=== PATIENT | male | born 1960 | race Hispanic/Latino ===

== ENCOUNTER 2017-02-15 11:30 | Inpatient (IN) | payer MEDICARE, OTHER ==
[2017-02-15 11:31] VITALS: BMI 58.6
[2017-02-15] MEDS ORDERED: Piperacill/Tazo 3.375gm in Dex 50 ML IVPB STA (12:44)
[2017-02-15] MEDS ORDERED: Vancomycin 1 gm/NS 200 ml 200 ML IVPB STA (12:44)
--- NOTE | 2017-02-15 12:48 | C.PDOC ---
History Of Present Illness 56 year old patient, with a past medical history of arthritis, back problems, CAD, asthma, hypertension, hypercholesterolemia, hyperthyroidism, hypothyroidism , peripheral edema, pneumonia, depression, CHF, COPD, depression, diabetes, DVT , fibromyalgia, and PE, presents to the emergency department complaining of pain to bilateral lower extremities and to the buttocks at the crease of the legs. Patient has venous stasis changes to lower extremities and chronic cellulitis. Patient has a recent decubiti to the buttock with cracking skin, oozing, and foul smelling. Patient had a Tmax of 101 yesterday. Patient notes purulent discharge at home and called his PMD, Dr. Albright, who suggested he visit the ER for further evaluation. Patient is requesting Percocet and Oxycodone for the pain. Patient denies chest pain, shortness of breath, vomiting , weakness, or numbness. Time Seen by Provider: 02/15/17 12:11 Chief Complaint (Nursing): Abnormal Skin Integrity History Per: Patient History/Exam Limitations: no limitations Onset/Duration Of Symptoms: Other Current Symptoms Are (Timing): Still Present Quality Of Symptoms: Painful, Draining, Other Severity: Mild Pain Scale Rating Of: 3 Recent travel outside of the [place]: No Past Medical History Reviewed: Historical Data, Nursing Documentation, Vital Signs Vital Signs: Last Vital Signs Temp 97.4 F L 02/15/17 11:42 Pulse 80 02/15/17 11:42 Resp 18 02/15/17 11:42 BP 177/96 H 02/15/17 11:42 Pulse Ox 94 L 02/15/17 12:48 - Medical History PMH: Arthritis, Asthma, Back Problems, CAD, CHF, COPD, Depression, Diabetes, Deep Vein Thrombosis, Fibromyalgia, Fractures, HTN, Hypercholesterolemia, Hyperthyroidism, Hypothyroidism, Peripheral Edema (+4 edema), Pneumonia, Pulmonary Embolism, Sleep Apnea, Chronic Pain Surgical History: - [facility] Procedures ASSISTANCE WITH RESPIRATORY VENTILATION, >96 HRS, CPAP (09/04/16) CENTRAL VENOUS CATHETER PLACEMENT WITH GUIDANCE (07/08/15) CLOSED ENDOSCOPIC BIOPSY OF LARGE INTESTINE (03/22/14) CONTIN POS AIRWAY PRESSURE [CPAP] (02/21/07) DERMAL REGENERATIVE GRAFT (06/15/15) DX ULTRASOUND-HEART (05/14/06) ENDOSC POLYPECTOMY OF LG INTEST (03/22/14) ENDOSCOPIC BRONCHIAL BX (09/22/04) ESOPHAGOGASTRODUODENOSCOPY [EGD] W/CLOSED BIOPSY (03/22/14) EXCIS DEBRIDE OF WOUND, INFECT, OR BURN (06/15/15) HETEROGRAFT TO SKIN (10/29/14) INJECT ANTIBIOTIC (05/29/06) INJECT ANTICOAGULANT (11/17/04) INJECT/INFUSE NEC (03/22/14) INSERTION OF INFUSION DEV INTO SUP VENA CAVA, PERC APPROACH (09/04/16) INSPECTION OF BLADDER, ENDO (06/22/16) INTRODUCE OF OTH THERAP SUBST INTO RESP TRACT, VIA OPENING (04/06/16) NEBULIZER THERAPY (09/18/14) NON-INVASIVE MECHANICAL VENTILATION (08/13/12) NONEXCIS DEBRID OF WOUND, INFECT, OR BURN (10/09/14) OCCUPATIONAL THERAPY (03/17/14) PERFORMANCE OF URINARY FILTRATION, MULTIPLE (09/04/16) PHYSICAL THERAPY NEC (03/17/14) TRANSFUSE NONAUT FROZEN PLASMA IN PERIPH VEIN, PERC (09/04/16) VENOUS CATHETERIZATION NEC (04/25/15) Family History: States: Unknown Family Hx - Social History Hx Tobacco Use: No Hx Alcohol Use: No Hx Substance Use: No - Immunization History Hx Tetanus Toxoid Vaccination: No Hx Influenza Vaccination: Yes Hx Pneumococcal Vaccination: No Review Of Systems Except As Marked, All Systems Reviewed And Found Negative. Constitutional: Positive for: Fever Cardiovascular: Negative for: Chest Pain Respiratory: Negative for: Shortness of Breath Gastrointestinal: Negative for: Vomiting Skin: Positive for: Other (decubiti to buttock) Neurological: Negative for: Weakness, Numbness Physical Exam - Physical Exam Appears: Non-toxic, No Acute Distress Skin: Warm, Dry, Other (legs knee down indurated, oozing, linear changes; oozing at creases of buttock and legs) Head: Atraumatic, Normacephalic Eye(s): bilateral: Normal Inspection, PERRL, EOMI Ear(s): Bilateral: Normal Nose: Normal Oral Mucosa: Moist Throat: Normal Neck: Normal ROM, Supple Chest: Symmetrical Cardiovascular: Rhythm Regular Respiratory: Normal Breath Sounds, No Rales, No Rhonchi, No Wheezing Gastrointestinal/Abdominal: Soft, No Tenderness, Other (obese) Back: Normal Inspection Extremity: Normal ROM Neurological/Psych: Oriented x3, Normal Speech, Normal Cognition Gait: Steady ED Course And Treatment - Laboratory Results Result Diagrams: 02/15/17 14:24 02/15/17 12:44 O2 Sat by Pulse Oximetry: 94 (RA) Progress Note: Plan: VBG, EKG, Chest XR, Percocet, Zosyn, Vancomycin, Oxycodone. --Reassess and disposition Disposition Discussed With .: Estrada Albright Doctor Will See Patient In The: Hospital Counseled Patient/Family Regarding: Studies Performed - Disposition Disposition: HOSPITALIZED Disposition Time: 12:46 Condition: GUARDED - Clinical Impression Clinical Impression: Cellulitis, Morbid obesity with BMI of 60.0-69.9, adult, Stasis ulcer of right lower extremity, Leg ulcer, PVD (peripheral vascular disease), Decubitus ulcer - Scribe Statement The provider has reviewed the documentation as recorded by the Scribe Veronica Murdock Provider Attestation: All medical record entries made by the Scribe were at my direction and personally dictated by me. I have reviewed the chart and agree that the record accurately reflects my personal performance of the history, physical exam, medical decision making, and the department course for this patient. I have also personally directed, reviewed, and agree with the discharge instructions and disposition. Decision To Admit - Pt Status Changed To: Hospital Disposition Of: Inpatient - Admit Certification Admit to Inpatient:: After my assessment, the patient will require hospitalization for at least two midnights. This is because of the severity of symptoms shown, intensity of services needed, and/or the medical risk in this patient being treated as an outpatient. - InPatient: Physician Admission Certification: I certify that this patient requires 2 or more midnights of care for the following reason:: infected decubity - . Bed Request Type: Regular Patient Diagnosis: Cellulitis, Morbid obesity with BMI of 60.0-69.9, adult, Stasis ulcer of right lower extremity, Leg ulcer, PVD (peripheral vascular disease), Decubitus ulcer
[2017-02-15] MEDS ORDERED: oxyCODONE 20 mg ER Tab (oxyCONTIN) PO STA (12:49)
[2017-02-15] MEDS ORDERED: Oxycodone/Acetaminophen 5/325 mg Tab PO STA (12:49)
[2017-02-15] MEDS ORDERED: oxyCODONE 20 mg ER Tab (oxyCONTIN) PO ONE (13:15)
[2017-02-15] MEDS ORDERED: Oxycodone/Acetaminophen 5/325 mg Tab ONE ×2 (13:16→13:33)
--- NOTE | 2017-02-15 13:33 | RAD ---
HISTORY: Sepsis Patient COMPARISON: No prior. FINDINGS: LUNGS: Study is limited due to patient rotation and exclusion of both portions of both lung bases on more so on the left. Hazy opacity left lung could be secondary to patient rotation. Possibility of a effusion cannot be excluded. Suspect mild bibasilar atelectasis. Low lung bases more so on the left side PLEURA: No significant pleural effusion identified, no pneumothorax apparent. CARDIOVASCULAR: Questionable cardiomegaly. OSSEOUS STRUCTURES: No significant abnormalities. VISUALIZED UPPER ABDOMEN: Normal. OTHER FINDINGS: None. IMPRESSION: limited due to patient rotation and exclusion of both portions of both lung bases on more so on the left. Hazy opacity left lung could be secondary to patient rotation. Possibility of a effusion cannot be excluded. Suspect mild bibasilar atelectasis. Low lung bases more so on the left side
[2017-02-15] MEDS ORDERED: Piperacillin/Tazobact 3.375 gm 100 ML IVPB ONE ×2 (13:49→21:25)
[2017-02-15 14:19] LABS: VENOUS BLOOD GAS BASE EXCESS 7.5 mmol/L (0.0-2.0); VENOUS BLOOD GAS PCO2 47 mmHg (40-60); VENOUS BLOOD PH 7.45 (7.32-7.43)
[2017-02-15 14:19] LABS: BASO # 0.1 K/uL (0.0-0.2); BASO % 0.9 % (0.0-2.0); EOS # 0.2 K/uL (0.0-0.7); EOS % 2.3 % (0.0-4.0); HEMATOCRIT 34.4 % (35.0-51.0); LYMPH # 1.1 K/uL (1.0-4.3); LYMPH % 12.4 % (20.0-40.0); MEAN CORPUSCULAR HEMOGLOBIN 29.4 pg (27.0-31.0); MEAN CORPUSCULAR HGB CONC 34.2 g/dL (33.0-37.0); MEAN PLATELET VOLUME 9.7 fL (7.2-11.7); MONO # 0.6 K/uL (0.0-0.8); MONO % 7.3 % (0.0-10.0); RED CELL DISTRIBUTION WIDTH 13.4 % (11.5-14.5); WHITE BLOOD COUNT 8.7 K/uL (4.8-10.8)
[2017-02-15 14:26] LABS: CHLORIDE 95 mmol/L (98-107); SODIUM 136 mmol/L (132-148)
[2017-02-15 14:28] LABS: CARBON DIOXIDE 31 mmol/L (22-30); GFR AFRICAN-AMERICAN > 60
[2017-02-15 14:29] LABS: ALB/GLOB RATIO 0.8 (1.0-2.1); ALKALINE PHOSPHATASE 135 U/L (38-126); ALT/SGPT 25 U/L (21-72); AST/SGOT 24 U/L (17-59); BLOOD UREA NITROGEN 14 mg/dL (9-20); CALCIUM 9.1 mg/dl (8.6-10.4); GLUCOSE,RANDOM 113 mg/dL (75-110); POTASSIUM 4.7 mmol/L (3.6-5.2); TOTAL PROTEIN 8.3 g/dL (6.3-8.3)
[2017-02-15] MEDS ORDERED: oxyCODONE 40 mg ER Tab (oxyCONTIN) PO SCH (15:00)
[2017-02-15] MEDS: Vancomycin 1 gm/NS 200 ml 200 ML IVPB SCH (15:32)
--- NOTE | 2017-02-15 16:16 | CP.PCM.CON ---
History of Present Illness - History of Present Illness History of Present Illness: Chief Complaint - admitted via ER with infected stasis ulcer/ decubitus ulcer wound care and antibiotics ordered multiple co-morbidities prognosis guarded - Medical History PMH: Arthritis, Asthma, Back Problems, CAD, CHF, COPD, Depression, Diabetes, Deep Vein Thrombosis, Fibromyalgia, Fractures, HTN, Hypercholesterolemia, Hyperthyroidism, Hypothyroidism, Peripheral Edema (+4 edema), Pneumonia, Pulmonary Embolism, Sleep Apnea, Chronic Pain Denies: Chronic Kidney Disease Surgical History: - [facility] Procedures ASSISTANCE WITH RESPIRATORY VENTILATION, >96 HRS, CPAP (09/04/16) CENTRAL VENOUS CATHETER PLACEMENT WITH GUIDANCE (07/08/15) CLOSED ENDOSCOPIC BIOPSY OF LARGE INTESTINE (03/22/14) CONTIN POS AIRWAY PRESSURE [CPAP] (02/21/07) DERMAL REGENERATIVE GRAFT (06/15/15) DX ULTRASOUND-HEART (05/14/06) ENDOSC POLYPECTOMY OF LG INTEST (03/22/14) ENDOSCOPIC BRONCHIAL BX (09/22/04) ESOPHAGOGASTRODUODENOSCOPY [EGD] W/CLOSED BIOPSY (03/22/14) EXCIS DEBRIDE OF WOUND, INFECT, OR BURN (06/15/15) HETEROGRAFT TO SKIN (10/29/14) INJECT ANTIBIOTIC (05/29/06) INJECT ANTICOAGULANT (11/17/04) INJECT/INFUSE NEC (03/22/14) INSERTION OF INFUSION DEV INTO SUP VENA CAVA, PERC APPROACH (09/04/16) INSPECTION OF BLADDER, ENDO (06/22/16) INTRODUCE OF OTH THERAP SUBST INTO RESP TRACT, VIA OPENING (04/06/16) NEBULIZER THERAPY (09/18/14) NON-INVASIVE MECHANICAL VENTILATION (08/13/12) NONEXCIS DEBRID OF WOUND, INFECT, OR BURN (10/09/14) OCCUPATIONAL THERAPY (03/17/14) PERFORMANCE OF URINARY FILTRATION, MULTIPLE (09/04/16) PHYSICAL THERAPY NEC (03/17/14) TRANSFUSE NONAUT FROZEN PLASMA IN PERIPH VEIN, PERC (09/04/16) VENOUS CATHETERIZATION NEC (04/25/15) Past Patient History - Infectious Disease Hx of Infectious Diseases: MRSA, ESL - Tetanus Immunizations Tetanus Immunization: Unknown - Past Medical History & Family History Past Medical History?: Yes - Past Social History Smoking Status: Never Smoked - CARDIAC Hx Congestive Heart Failure: Yes Hx Hypercholesterolemia: Yes Hx Hypertension: Yes Hx Peripheral Edema: Yes (+4 edema) - PULMONARY Hx Asthma: Yes Hx Chronic Obstructive Pulmonary Disease (COPD): Yes Hx Pneumonia: Yes Hx Pulmonary Embolism: Yes Hx Sleep Apnea: Yes - NEUROLOGICAL Hx Neurological Disorder: No - HEENT Hx HEENT Problems: No - RENAL Hx Chronic Kidney Disease: No - ENDOCRINE/METABOLIC Hx Hyperthyroidism: Yes Hx Hypothyroidism: Yes - HEMATOLOGICAL/ONCOLOGICAL Hx Blood Disorders: No - INTEGUMENTARY Hx Dermatological Problems: Yes Hx Cellulitis: Yes (BLE) Other/Comment: both leggs discolored - MUSCULOSKELETAL/RHEUMATOLOGICAL Hx Arthritis: Yes Hx Fractures: Yes - GASTROINTESTINAL Hx Gastrointestinal Disorders: Yes - GENITOURINARY/GYNECOLOGICAL Hx Genitourinary Disorders: No - PSYCHIATRIC Hx Depression: Yes Hx Substance Use: No - SURGICAL HISTORY Hx Orthopedic Surgery: Yes (bilateral knee replacement) Other/Comment: total left knee - 1998. right ankle screws - 1987. right hip shyam - 1982 - ANESTHESIA Hx Anesthesia: Yes Hx Anesthesia Reactions: No Hx Malignant Hyperthermia: No Meds Allergies/Adverse Reactions: Allergies Allergy/AdvReac Type Severity Reaction Status Date / Time No Known Allergies Allergy Verified 09/04/16 18:47 - Medications Medications: Current Medications Albuterol/Ipratropium (Duoneb 3 Mg/0.5 Mg (3 Ml) Ud) 3 ml INH RQ6 [facility] Clonidine HCl (Catapres) 0.1 mg PO BID [facility] Docusate Sodium (Colace) 100 mg PO TID [facility] Finasteride (Proscar) 5 mg PO DAILY [facility] Vancomycin/Sodium Chloride (Vancocin) 200 mls @ 133 mls/hr IVPB Q12H [facility] Stop: 02/20/17 15:01 Last Admin: 02/15/17 15:32 Dose: 133 mls/hr Piperacillin Sod/Tazobactam Sod (Zosyn 3.375 Gm Iv Premix) 50 mls @ 200 mls/hr IVPB Q6H [facility] Insulin Human Regular (Novolin R) 0 unit SC ACHS [facility] PRN Reason: Protocol Levothyroxine Sodium (Synthroid) 75 mcg PO DAILY@0630 [facility] Metoprolol Tartrate (Lopressor) 25 mg PO DAILY [facility] Oxycodone HCl (Oxycontin Extended Release Tab) 40 mg PO Q6H [facility] Results - Vital Signs Recent Vital Signs: Last Vital Signs Temp 97.4 F L 02/15/17 11:42 Pulse 80 02/15/17 11:42 Resp 18 02/15/17 11:42 BP 177/96 H 02/15/17 11:42 Pulse Ox 94 L 02/15/17 12:48 - Labs Result Diagrams: 02/15/17 14:24 02/15/17 12:44 Labs: Laboratory Results - last 24 hr 02/15/17 02/15/17 14:15 14:24 WBC 8.7 RBC 4.01 L Hgb 11.8 L D Hct 34.4 L MCV 86.0 MCH 29.4 MCHC 34.2 RDW 13.4 Plt Count 182 MPV 9.7 Neut % (Auto) 77.1 H Lymph % (Auto) 12.4 L [place] % (Auto) 7.3 Eos % (Auto) 2.3 Baso % (Auto) 0.9 Neut # 6.7 Lymph # 1.1 [place] # 0.6 Eos # 0.2 Baso # 0.1 pO2 44 VBG pH 7.45 H VBG pCO2 47 VBG HCO3 30.4 VBG Total CO2 34.1 H VBG O2 Sat (Calc) 83.6 H VBG Base Excess 7.5 H VBG Potassium 4.2 Sodium 139.0 Chloride 105.0 Glucose 111 H Lactate 0.9 Venous Blood Potassium 4.2
[2017-02-15] MEDS: (Novolin R) Insulin Human Regular 100 units/ml vial SC SCH (18:47)
[2017-02-15] MEDS: oxyCODONE 40 mg ER Tab (oxyCONTIN) PO SCH (19:40)
[2017-02-15] MEDS: Albuterol-Ipratrop 3 mg / 0.5 (3 ml) UD INH SCH (20:30)
[2017-02-15] MEDS: Oxycodone/Acetaminophen 5/325 mg Tab PO PRN (22:09)
--- NOTE | 2017-02-15 22:26 | CP.PCM.HP ---
History of Present Illness - History of Present Illness History of Present Illness: dionna complain: b/l LE ulcer with discharge 56 year old patient, with a past medical history of arthritis, back problems, CAD, asthma, hypertension, hypercholesterolemia, hyperthyroidism, hypothyroidism , peripheral edema, pneumonia, depression, CHF, COPD, depression, diabetes, DVT , fibromyalgia, and PE, who is non complaint with diet, medication and follow up , was recently discharged from rehab, presents to the emergency department complaining of pain to bilateral lower extremities and to the buttocks at the crease of the legs. Patient has venous stasis changes to lower extremities and chronic cellulitis. Patient has a recent decubiti to the buttock with cracking skin, oozing, and foul smelling. Patient had a Tmax of 101 yesterday. Patient notes purulent discharge at home and called me , i send him to ER for further evaluation. Patient was requesting Percocet and Oxycodone for the pain. Patient denies chest pain, shortness of breath, vomiting, weakness, or numbness Review of Systems - Review of Systems Systems not reviewed;Unavailable: Acuity of Condition - Constitutional Constitutional: Fatigue, Lethargy, Weakness - EENT Eyes: absent: As Per HPI, Blind Spots, Blurred Vision, Change in Vision, Decreased Night Vision, Diplopia, Discharge, Dry Eye, Exophthalmos, Floaters, Irritation, Itchy Eyes, Loss of Peripheral Vision, Pain, Photophobia, Requires Corrective Lenses, Sees Flashes, Spots in Vision, Tunnel Vision, Other Visual Disturbances, Loss of Vision, Other Nose/Mouth/Throat: absent: As Per HPI, Epistaxis, Nasal Congestion, Nasal Discharge, Nasal Obstruction, Nasal Trauma, Nose Pain, Post Nasal Drip, Sinus Pain, Sinus Pressure, Bleeding Gums, Change in Voice, Dental Pain, Dry Mouth, Dysphagia, Halitosis, Hoarsness, Lip Swelling, Mouth Lesions, Mouth Pain, Odynophagia, Sore Throat, Throat Swelling, Tongue Swelling, Facial Pain, Neck Pain, Neck Mass, Other - Cardiovascular Cardiovascular: absent: As Per HPI, Acrocyanosis, Chest Pain, Chest Pain at Rest , Chest Pain with Activity, Claudication, Diaphoresis, Dyspnea, Dyspnea on Exertion, Edema, Irregular Heart Rhythm, Pain Radiating to Arm/Neck/Jaw, Leg Edema, Leg Ulcers, Lightheadedness, Orthopnea, Palpitations, Paroxysmal Nocturnal Dyspnea, Pedal Edema, Radiating Pain, Rapid Heart Rate, Slow Heart Rate, Syncope, Other - Musculoskeletal Musculoskeletal: Arthralgias, Back Pain, Muscle Weakness, Myalgias - Integumentary Integumentary: Changing Lesions, Dry Skin, Erythema, Non-Healing Lesions, Pruritus, Skin Pain, Skin Ulcer, Swelling, Wounds Past Patient History - Infectious Disease Hx of Infectious Diseases: MRSA, ESL - Tetanus Immunizations Tetanus Immunization: Unknown - Past Medical History & Family History Past Medical History?: Yes - Past Social History Smoking Status: Never Smoked - CARDIAC Hx Congestive Heart Failure: Yes Hx Hypercholesterolemia: Yes Hx Hypertension: Yes Hx Peripheral Edema: Yes (+4 edema) - PULMONARY Hx Asthma: Yes Hx Chronic Obstructive Pulmonary Disease (COPD): Yes Hx Pneumonia: Yes Hx Pulmonary Embolism: Yes Hx Sleep Apnea: Yes - NEUROLOGICAL Hx Neurological Disorder: No - HEENT Hx HEENT Problems: No - RENAL Hx Chronic Kidney Disease: No - ENDOCRINE/METABOLIC Hx Hyperthyroidism: Yes Hx Hypothyroidism: Yes - HEMATOLOGICAL/ONCOLOGICAL Hx Blood Disorders: No - INTEGUMENTARY Hx Dermatological Problems: Yes Hx Cellulitis: Yes (BLE) Other/Comment: both leggs discolored - MUSCULOSKELETAL/RHEUMATOLOGICAL Hx Arthritis: Yes Hx Fractures: Yes - GASTROINTESTINAL Hx Gastrointestinal Disorders: Yes - GENITOURINARY/GYNECOLOGICAL Hx Genitourinary Disorders: No - PSYCHIATRIC Hx Depression: Yes Hx Substance Use: No - SURGICAL HISTORY Hx Orthopedic Surgery: Yes (bilateral knee replacement) Other/Comment: total left knee - 1998. right ankle screws - 1987. right hip shyam - 1982 - ANESTHESIA Hx Anesthesia: Yes Hx Anesthesia Reactions: No Hx Malignant Hyperthermia: No Meds Allergies/Adverse Reactions: Allergies Allergy/AdvReac Type Severity Reaction Status Date / Time No Known Allergies Allergy Verified 09/04/16 18:47 Physical Exam - Constitutional Appears: No Acute Distress, Chronically Ill - Eye Exam Eye Exam: EOMI, Normal appearance, PERRL Pupil Exam: NORMAL ACCOMODATION, PERRL - ENT Exam ENT Exam: Mucous Membranes Moist, Normal Exam - Respiratory Exam Respiratory Exam: Clear to Auscultation Bilateral, NORMAL BREATHING PATTERN - Cardiovascular Exam Cardiovascular Exam: REGULAR RHYTHM Additional comments: gynecomastia - GI/Abdominal Exam GI & Abdominal Exam: Normal Bowel Sounds, Soft. absent: Tenderness - Extremities Exam Extremities exam: Positive for: pedal edema, tenderness Additional comments: b/l calf ulcers red, swollen with purulent discharge - Back Exam Back exam: paraspinal tenderness - Psychiatric Exam Psychiatric exam: Anxious - Skin Skin Exam: Dry, Erythema, Vesicles Results - Vital Signs Recent Vital Signs: Last Vital Signs Temp 97.4 F L 02/15/17 11:42 Pulse 84 02/15/17 18:54 Resp 95 H 02/15/17 18:54 BP 148/93 H 02/15/17 18:54 Pulse Ox 18 L 02/15/17 18:54 - Labs Result Diagrams: 02/15/17 14:24 02/15/17 12:44 Labs: Laboratory Results - last 24 hr 02/15/17 02/15/17 02/15/17 14:15 14:24 18:45 WBC 8.7 RBC 4.01 L Hgb 11.8 L D Hct 34.4 L MCV 86.0 MCH 29.4 MCHC 34.2 RDW 13.4 Plt Count 182 MPV 9.7 Neut % (Auto) 77.1 H Lymph % (Auto) 12.4 L [place] % (Auto) 7.3 Eos % (Auto) 2.3 Baso % (Auto) 0.9 Neut # 6.7 Lymph # 1.1 [place] # 0.6 Eos # 0.2 Baso # 0.1 pO2 44 VBG pH 7.45 H VBG pCO2 47 VBG HCO3 30.4 VBG Total CO2 34.1 H VBG O2 Sat (Calc) 83.6 H VBG Base Excess 7.5 H VBG Potassium 4.2 Sodium 139.0 Chloride 105.0 Glucose 111 H Lactate 0.9 POC Glucose (mg/dL) 96 Venous Blood Potassium 4.2 Assessment & Plan (1) Cellulitis Status: Acute (2) Leg ulcer Status: Acute (3) PVD (peripheral vascular disease) Status: Acute (4) Hypertension Status: Chronic Priority: Low (5) Diabetes mellitus Status: Chronic Priority: Medium (6) Osteoarthritis Status: Chronic Priority: Medium (7) Low back pain Status: Chronic
[2017-02-15] MEDS ORDERED: Lidocaine 5% Patch TD ONE (23:33)
[2017-02-15] MEDS: Lidocaine 5% Patch TD SCH (23:36)
[2017-02-16] MEDS: (Novolin R) Insulin Human Regular 100 units/ml vial SC SCH ×5 (00:10→22:05)
[2017-02-16] MEDS: Piperacill/Tazo 3.375gm in Dex 50 ML IVPB SCH ×5 (00:47→21:29)
[2017-02-16] MEDS: oxyCODONE 40 mg ER Tab (oxyCONTIN) PO SCH ×4 (01:23→18:05)
[2017-02-16] MEDS: Albuterol-Ipratrop 3 mg / 0.5 (3 ml) UD INH SCH ×3 (02:20→20:00)
[2017-02-16] MEDS: Oxycodone/Acetaminophen 5/325 mg Tab PO PRN ×5 (02:30→19:25)
[2017-02-16] MEDS: Vancomycin 1 gm/NS 200 ml 200 ML IVPB SCH ×2 (06:21→14:50)
[2017-02-16] MEDS: Levothyroxine 75 MCG TAB PO SCH (06:22)
--- NOTE | 2017-02-16 12:50 | CP.PCM.PN ---
Subjective - Date & Time of Evaluation Date of Evaluation: 02/16/17 Time of Evaluation: 08:00 - Subjective Subjective: iv rx in progress Objective - Vital Signs/Intake and Output Vital Signs (last 24 hours): Temp Pulse Resp BP Pulse Ox 97.9 F 70 20 152/81 H 97 02/16/17 09:23 02/16/17 09:23 02/16/17 09:23 02/16/17 11:02 02/16/17 09:23 - Medications Medications: Current Medications Albuterol/Ipratropium (Duoneb 3 Mg/0.5 Mg (3 Ml) Ud) 3 ml INH RQ6 [facility] Last Admin: 02/16/17 08:26 Dose: Not Given Clonidine HCl (Catapres) 0.1 mg PO BID [facility] Last Admin: 02/16/17 11:02 Dose: 0.1 mg Docusate Sodium (Colace) 100 mg PO TID [facility] Last Admin: 02/16/17 11:10 Dose: Not Given Finasteride (Proscar) 5 mg PO DAILY [facility] Last Admin: 02/16/17 11:02 Dose: 5 mg Vancomycin/Sodium Chloride (Vancocin) 200 mls @ 133 mls/hr IVPB Q12H [facility] Stop: 02/20/17 15:01 Last Admin: 02/16/17 06:21 Dose: 133 mls/hr Piperacillin Sod/Tazobactam Sod (Zosyn 3.375 Gm Iv Premix) 50 mls @ 200 mls/hr IVPB Q6H [facility] Last Admin: 02/16/17 09:13 Dose: 200 mls/hr Influenza Virus Vaccine (Afluria) 45 mcg IM .ONCE ONE Stop: 02/18/17 14:01 Insulin Human Regular (Novolin R) 0 unit SC ACHS [facility] PRN Reason: Protocol Last Admin: 02/16/17 12:22 Dose: Not Given Levothyroxine Sodium (Synthroid) 75 mcg PO DAILY@0630 [facility] Last Admin: 02/16/17 06:22 Dose: 75 mcg Lidocaine (Lidoderm) 1 ea TD DAILY [facility] Last Admin: 02/15/17 23:36 Dose: 1 ea Metoprolol Tartrate (Lopressor) 25 mg PO DAILY [facility] Last Admin: 02/16/17 11:02 Dose: 25 mg Oxycodone HCl (Oxycontin Extended Release Tab) 40 mg PO Q6 [facility] Last Admin: 02/16/17 12:26 Dose: 40 mg Oxycodone/Acetaminophen (Percocet 5/325 Mg Tab) 2 tab PO Q4H [facility] PRN Reason: Pain, severe (8-10) Stop: 02/18/17 21:56 Last Admin: 02/16/17 11:07 Dose: 2 tab Pneumococcal Polyvalent Vaccine (Pneumovax 23 Vaccine) 0.5 ml IM .ONCE ONE Stop: 02/18/17 14:01 - Labs Labs: 02/15/17 14:24 - Constitutional Appears: Non-toxic, Chronically Ill - Head Exam Head Exam: NORMOCEPHALIC - Eye Exam Eye Exam: PERRL. absent: Scleral icterus - ENT Exam ENT Exam: Mucous Membranes Dry - Neck Exam Neck Exam: absent: Lymphadenopathy - Respiratory Exam Respiratory Exam: Decreased Breath Sounds - Cardiovascular Exam Cardiovascular Exam: REGULAR RHYTHM, +S1, +S2 - GI/Abdominal Exam GI & Abdominal Exam: Distended, Soft. absent: Tenderness - Rectal Exam Rectal Exam: Deferred - Exam Exam: NORMAL INSPECTION - Extremities Exam Extremities Exam: absent: Pedal Edema - Back Exam Back Exam: absent: CVA tenderness (L), CVA tenderness (R) Assessment and Plan (1) Cellulitis Status: Acute (2) Decubitus ulcer Status: Acute (3) Left leg pain Status: Acute (4) Leg ulcer Status: Acute (5) PVD (peripheral vascular disease) Status: Acute (6) Stasis ulcer of right lower extremity Status: Acute (7) Hypertension Status: Chronic (8) Hyperglycemia Status: Chronic
[2017-02-17] MEDS: Oxycodone/Acetaminophen 5/325 mg Tab PO PRN ×6 (00:07→23:39)
[2017-02-17] MEDS: oxyCODONE 40 mg ER Tab (oxyCONTIN) PO SCH ×4 (00:56→17:29)
[2017-02-17] MEDS: Albuterol-Ipratrop 3 mg / 0.5 (3 ml) UD INH SCH ×3 (01:05→13:52)
[2017-02-17] MEDS: Vancomycin 1 gm/NS 200 ml 200 ML IVPB SCH ×2 (03:19→14:55)
[2017-02-17] MEDS: Piperacill/Tazo 3.375gm in Dex 50 ML IVPB SCH ×4 (03:19→20:59)
[2017-02-17] MEDS: Levothyroxine 75 MCG TAB PO SCH (05:55)
[2017-02-17] MEDS: (Novolin R) Insulin Human Regular 100 units/ml vial SC SCH ×4 (08:05→21:22)
[2017-02-17] MEDS: Lidocaine 5% Patch TD SCH (09:54)
[2017-02-17] MEDS: Enoxaparin 40 mg Syringe SC SCH (09:54)
--- NOTE | 2017-02-17 09:59 | CP.PCM.PN ---
Subjective - Date & Time of Evaluation Date of Evaluation: 02/16/17 - Subjective Subjective: Pt seen and examined at bedside, undergpoing IV antibiotic Rx for cellulitis of LE Objective - Vital Signs/Intake and Output Vital Signs (last 24 hours): Temp Pulse Resp BP Pulse Ox 98.5 F 64 18 125/74 97 02/16/17 23:45 02/16/17 23:45 02/16/17 23:45 02/16/17 23:45 02/16/17 23:45 Intake and Output: 02/17/17 02/17/17 06:59 18:59 Intake Total 650 Output Total 450 Balance 200 - Medications Medications: Current Medications Albuterol/Ipratropium (Duoneb 3 Mg/0.5 Mg (3 Ml) Ud) 3 ml INH RQ6 [facility] Last Admin: 02/17/17 07:55 Dose: Not Given Clonidine HCl (Catapres) 0.1 mg PO BID [facility] Last Admin: 02/16/17 18:05 Dose: 0.1 mg Docusate Sodium (Colace) 100 mg PO TID [facility] Last Admin: 02/16/17 18:05 Dose: Not Given Enoxaparin Sodium (Lovenox) 40 mg SC DAILY [facility] Last Admin: 02/17/17 09:54 Dose: 40 mg Finasteride (Proscar) 5 mg PO DAILY [facility] Last Admin: 02/17/17 09:55 Dose: 5 mg Furosemide (Lasix) 40 mg PO BID [facility] Vancomycin/Sodium Chloride (Vancocin) 200 mls @ 133 mls/hr IVPB Q12H [facility] Stop: 02/20/17 15:01 Last Admin: 02/17/17 03:19 Dose: 133 mls/hr Piperacillin Sod/Tazobactam Sod (Zosyn 3.375 Gm Iv Premix) 50 mls @ 200 mls/hr IVPB Q6H [facility] Last Admin: 02/17/17 08:25 Dose: 200 mls/hr Influenza Virus Vaccine (Afluria) 45 mcg IM .ONCE ONE Stop: 02/18/17 14:01 Insulin Human Regular (Novolin R) 0 unit SC ACHS [facility] PRN Reason: Protocol Last Admin: 02/17/17 08:05 Dose: Not Given Levothyroxine Sodium (Synthroid) 75 mcg PO DAILY@0630 [facility] Last Admin: 02/17/17 05:55 Dose: 75 mcg Lidocaine (Lidoderm) 1 ea TD DAILY [facility] Last Admin: 02/17/17 09:54 Dose: 1 ea Metoprolol Tartrate (Lopressor) 25 mg PO DAILY [facility] Last Admin: 02/16/17 11:02 Dose: 25 mg Nystatin (Nystop Topical Powder) 1 applic TOP Q6H PRN PRN Reason: Rash Oxycodone HCl (Oxycontin Extended Release Tab) 40 mg PO Q6 [facility] Last Admin: 02/17/17 06:41 Dose: 40 mg Oxycodone/Acetaminophen (Percocet 5/325 Mg Tab) 2 tab PO Q4H PRN PRN Reason: Pain, severe (8-10) Stop: 02/18/17 21:56 Last Admin: 02/17/17 05:56 Dose: 2 tab Pneumococcal Polyvalent Vaccine (Pneumovax 23 Vaccine) 0.5 ml IM .ONCE ONE Stop: 02/18/17 14:01 - Labs Labs: 02/15/17 14:24 - Constitutional Appears: No Acute Distress - Head Exam Head Exam: ATRAUMATIC, NORMAL INSPECTION, NORMOCEPHALIC - Eye Exam Eye Exam: EOMI, Normal appearance, PERRL Pupil Exam: NORMAL ACCOMODATION, PERRL - Respiratory Exam Respiratory Exam: Clear to Ausculation Bilateral, NORMAL BREATHING PATTERN - Cardiovascular Exam Cardiovascular Exam: REGULAR RHYTHM, +S1, +S2. absent: Murmur - GI/Abdominal Exam GI & Abdominal Exam: Soft, Normal Bowel Sounds. absent: Tenderness - Back Exam Back Exam: rash noted - Skin Skin Exam: Erythema, Rash, Vesicles Assessment and Plan (1) Cellulitis Status: Acute (2) Leg ulcer Status: Acute (3) PVD (peripheral vascular disease) Status: Acute (4) Hypertension Status: Chronic (5) Diabetes mellitus Status: Chronic (6) Osteoarthritis Status: Chronic (7) Low back pain Status: Chronic
[2017-02-17 10:11] VITALS: RESP 20
[2017-02-17] MEDS ORDERED: Povidone Iodine Oint 10% Foilpak UD TOP ONE (16:32)
[2017-02-17 17:30] LABS: INR 1.1
[2017-02-18] MEDS: oxyCODONE 40 mg ER Tab (oxyCONTIN) PO SCH ×2 (00:25→06:12)
--- NOTE | 2017-02-18 00:37 | CP.PCM.PN ---
Subjective - Date & Time of Evaluation Date of Evaluation: 02/17/17 - Subjective Subjective: Pt has b/l calf ulcers and cultures are positive for staph, pt is on Iv antibiotics wound care and Id evalaution Objective - Vital Signs/Intake and Output Vital Signs (last 24 hours): Temp Pulse Resp BP Pulse Ox 97.2 F L 75 20 146/83 95 02/17/17 23:29 02/17/17 23:29 02/17/17 23:29 02/17/17 23:29 02/17/17 23:29 Intake and Output: 02/17/17 02/18/17 18:59 06:59 Output Total 1700 700 Balance -1700 -700 - Medications Medications: Current Medications Albuterol/Ipratropium (Duoneb 3 Mg/0.5 Mg (3 Ml) Ud) 3 ml INH RQ6 [facility] Last Admin: 02/17/17 13:52 Dose: Not Given Clonidine HCl (Catapres) 0.1 mg PO BID [facility] Last Admin: 02/17/17 17:29 Dose: 0.1 mg Docusate Sodium (Colace) 100 mg PO TID [facility] Last Admin: 02/17/17 17:25 Dose: Not Given Enoxaparin Sodium (Lovenox) 40 mg SC DAILY [facility] Last Admin: 02/17/17 09:54 Dose: 40 mg Finasteride (Proscar) 5 mg PO DAILY [facility] Last Admin: 02/17/17 09:55 Dose: 5 mg Furosemide (Lasix) 40 mg PO BID [facility] Last Admin: 02/17/17 17:29 Dose: 40 mg Vancomycin/Sodium Chloride (Vancocin) 200 mls @ 133 mls/hr IVPB Q12H [facility] Stop: 02/20/17 15:01 Last Admin: 02/17/17 14:55 Dose: 133 mls/hr Piperacillin Sod/Tazobactam Sod (Zosyn 3.375 Gm Iv Premix) 50 mls @ 200 mls/hr IVPB Q6H [facility] Last Admin: 02/17/17 20:59 Dose: 200 mls/hr Influenza Virus Vaccine (Afluria) 45 mcg IM .ONCE ONE Stop: 02/18/17 14:01 Insulin Human Regular (Novolin R) 0 unit SC ACHS [facility] PRN Reason: Protocol Last Admin: 03/21/17 21:22 Dose: Not Given Levothyroxine Sodium (Synthroid) 75 mcg PO DAILY@0630 [facility] Last Admin: 02/17/17 05:55 Dose: 75 mcg Lidocaine (Lidoderm) 1 ea TD DAILY [facility] Last Admin: 02/17/17 09:54 Dose: 1 ea Metoprolol Tartrate (Lopressor) 25 mg PO DAILY [facility] Last Admin: 02/17/17 09:56 Dose: 25 mg Oxycodone HCl (Oxycontin Extended Release Tab) 40 mg PO Q6 [facility] Last Admin: 02/18/17 00:25 Dose: 40 mg Oxycodone/Acetaminophen (Percocet 5/325 Mg Tab) 2 tab PO Q4H PRN PRN Reason: Pain, severe (8-10) Stop: 02/18/17 21:56 Last Admin: 02/17/17 23:39 Dose: 2 tab Pneumococcal Polyvalent Vaccine (Pneumovax 23 Vaccine) 0.5 ml IM .ONCE ONE Stop: 02/18/17 14:01 - Labs Labs: 02/15/17 14:24 PT 12.5 SECONDS (9.7-12.2) H 02/17/17 17:14 INR 1.1 02/17/17 17:14 - Constitutional Appears: No Acute Distress - Head Exam Head Exam: ATRAUMATIC, NORMAL INSPECTION, NORMOCEPHALIC - Eye Exam Eye Exam: EOMI, Normal appearance, PERRL Pupil Exam: NORMAL ACCOMODATION, PERRL - Respiratory Exam Respiratory Exam: Decreased Breath Sounds, NORMAL BREATHING PATTERN - Cardiovascular Exam Cardiovascular Exam: REGULAR RHYTHM, +S1, +S2. absent: Murmur - GI/Abdominal Exam GI & Abdominal Exam: Soft, Normal Bowel Sounds. absent: Tenderness - Neurological Exam Neurological Exam: Alert, Awake, CN II-XII Intact, Normal Gait, Oriented x3 - Skin Skin Exam: Erythema, Rash, Vesicles Additional comments: b/l ulcers on calf ulcer on back of right thigh Assessment and Plan (1) Cellulitis Assessment & Plan: continue Iv antibiotics Id eval wound care Status: Acute (2) Leg ulcer Status: Acute (3) PVD (peripheral vascular disease) Status: Acute (4) Hypertension Status: Chronic (5) Diabetes mellitus Status: Chronic (6) Osteoarthritis Status: Chronic (7) Low back pain Status: Chronic
[2017-02-18] MEDS: Albuterol-Ipratrop 3 mg / 0.5 (3 ml) UD INH SCH ×2 (01:23→07:40)
[2017-02-18] MEDS: Piperacill/Tazo 3.375gm in Dex 50 ML IVPB SCH ×2 (03:49→08:01)
[2017-02-18] MEDS: Vancomycin 1 gm/NS 200 ml 200 ML IVPB SCH (03:49)
[2017-02-18] MEDS: Levothyroxine 75 MCG TAB PO SCH (05:37)
[2017-02-18] MEDS: Oxycodone/Acetaminophen 5/325 mg Tab PO PRN ×2 (05:37→10:36)
[2017-02-18] MEDS: (Novolin R) Insulin Human Regular 100 units/ml vial SC SCH (07:35)
[2017-02-18 08:28] VITALS: PULSE 66; TEMP 97.6; O2SAT 96
[2017-02-18] MEDS: Lidocaine 5% Patch TD SCH (09:34)
[2017-02-18] MEDS: Enoxaparin 40 mg Syringe SC SCH (09:35)
[2017-02-18 09:38] VITALS: BP 141/93
[2017-02-18] MEDS ORDERED: oxyCODONE 40 mg ER Tab (oxyCONTIN) PO STA (11:07)
--- NOTE | 2017-02-18 11:42 | CP.PCM.PN ---
Subjective - Date & Time of Evaluation Date of Evaluation: 02/18/17 Time of Evaluation: 10:00 - Subjective Subjective: Pt seen today , denies any chest pain, sob , abdominal pain ,N/V/D Objective - Vital Signs/Intake and Output Vital Signs (last 24 hours): Temp Pulse Resp BP Pulse Ox 97.6 F 66 20 141/93 H 96 02/18/17 08:28 02/18/17 08:28 02/18/17 08:28 02/18/17 09:36 02/18/17 08:28 Intake and Output: 02/18/17 02/18/17 06:59 18:59 Output Total 700 Balance -700 - Labs Labs: 02/15/17 14:24 PT 12.5 SECONDS (9.7-12.2) H 02/17/17 17:14 INR 1.1 02/17/17 17:14 Assessment and Plan - Assessment and Plan (Free Text) Assessment: A/P 56 yr old male admitted for cellultis LE, and decubitus ulcer vss- stable a febrile Pt accepted at [facility] for wound care and antibiotics D/W Dr. Albright, stable for discharge to [facility] today discharge plan discussed with patient , who understands and agrees with plan
[2017-02-18] MEDS ORDERED: Pneumococcal 23-Valent Vaccine IM ONE (14:00)
[2017-02-18] MEDS ORDERED: Influenza Virus Vaccine 45 mcg/0.5 ml Syr IM ONE (14:00)
--- NOTE | 2017-02-18 23:31 | CP.PCM.DIS ---
Provider - Provider Date of Admission: 02/15/17 12:48 Attending physician: Estrada Albright MD Diagnosis - Discharge Diagnosis (1) Cellulitis Status: Acute (2) Leg ulcer Status: Acute (3) PVD (peripheral vascular disease) Status: Acute (4) Hypertension Status: Chronic Priority: Low (5) Diabetes mellitus Status: Chronic Priority: Medium (6) Osteoarthritis Status: Chronic Priority: Medium (7) Low back pain Status: Chronic Hospital Course - Lab Results Lab Results: Micro Results 02/15/17 14:00 Blood Blood Culture - Preliminary NO GROWTH AFTER 3 DAYS 02/15/17 13:00 Blood Blood Culture - Preliminary NO GROWTH AFTER 48 HOURS 02/15/17 14:09 Sacral Gram Stain - Final 02/15/17 14:09 Sacral Wound Culture - Final Staphylococcus Aureus Most Recent Lab Values WBC 8.7 K/uL (4.8-10.8) 02/15/17 14:24 RBC 4.01 Mil/uL (4.40-5.90) L 02/15/17 14:24 Hgb 11.8 g/dL (12.0-18.0) L D 02/15/17 14:24 Hct 34.4 % (35.0-51.0) L 02/15/17 14:24 MCV 86.0 fL (80.0-94.0) 02/15/17 14:24 MCH 29.4 pg (27.0-31.0) 02/15/17 14:24 MCHC 34.2 g/dL (33.0-37.0) 02/15/17 14:24 RDW 13.4 % (11.5-14.5) 02/15/17 14:24 Plt Count 182 K/uL (130-400) 02/15/17 14:24 MPV 9.7 fL (7.2-11.7) 02/15/17 14:24 Neut % (Auto) 77.1 % (50.0-75.0) H 02/15/17 14:24 Lymph % (Auto) 12.4 % (20.0-40.0) L 02/15/17 14:24 Gilchrist % (Auto) 7.3 % (0.0-10.0) 02/15/17 14:24 Eos % (Auto) 2.3 % (0.0-4.0) 02/15/17 14:24 Baso % (Auto) 0.9 % (0.0-2.0) 02/15/17 14:24 Neut # 6.7 K/uL (1.8-7.0) 02/15/17 14:24 Lymph # 1.1 K/uL (1.0-4.3) 02/15/17 14:24 Gilchrist # 0.6 K/uL (0.0-0.8) 02/15/17 14:24 Eos # 0.2 K/uL (0.0-0.7) 02/15/17 14:24 Baso # 0.1 K/uL (0.0-0.2) 02/15/17 14:24 PT 12.5 SECONDS (9.7-12.2) H 02/17/17 17:14 INR 1.1 02/17/17 17:14 pO2 44 mm/Hg (30-55) 02/15/17 14:15 VBG pH 7.45 (7.32-7.43) H 02/15/17 14:15 VBG pCO2 47 mmHg (40-60) 02/15/17 14:15 VBG HCO3 30.4 mmol/L 02/15/17 14:15 VBG Total CO2 34.1 mmol/L (22-28) H 02/15/17 14:15 VBG O2 Sat (Calc) 83.6 % (40-65) H 02/15/17 14:15 VBG Base Excess 7.5 mmol/L (0.0-2.0) H 02/15/17 14:15 VBG Potassium 4.2 mmol/L (3.6-5.2) 02/15/17 14:15 Sodium 139.0 mmol/l (132-148) 02/15/17 14:15 Chloride 105.0 mmol/L (98-107) 02/15/17 14:15 Glucose 111 mg/dl (75-110) H 02/15/17 14:15 Lactate 0.9 mmol/L (0.7-2.1) 02/15/17 14:15 Sodium 136 mmol/L (132-148) 02/15/17 12:44 Potassium 4.7 mmol/L (3.6-5.2) 02/15/17 12:44 Chloride 95 mmol/L (98-107) L 02/15/17 12:44 Carbon Dioxide 31 mmol/L (22-30) H 02/15/17 12:44 Anion Gap 15 (10-20) 02/15/17 12:44 BUN 14 mg/dL (9-20) 02/15/17 12:44 Creatinine 0.9 MG/DL (0.8-1.5) 02/15/17 12:44 Est GFR ( Amer) > 60 02/15/17 12:44 Est GFR (Non-Af Amer) > 60 02/15/17 12:44 POC Glucose (mg/dL) 113 mg/dL (65-110) H 02/18/17 06:34 Random Glucose 113 mg/dL (75-110) H 02/15/17 12:44 Calcium 9.1 mg/dl (8.6-10.4) 02/15/17 12:44 Total Bilirubin 1.0 mg/dL (0.2-1.3) 02/15/17 12:44 AST 24 U/L (17-59) 02/15/17 12:44 ALT 25 U/L (21-72) 02/15/17 12:44 Alkaline Phosphatase 135 U/L (38-126) H D 02/15/17 12:44 Total Protein 8.3 g/dL (6.3-8.3) 02/15/17 12:44 Albumin 3.7 g/dL (3.5-5.0) 02/15/17 12:44 Globulin 4.5 gm/dL (2.2-3.9) H 02/15/17 12:44 Albumin/Globulin Ratio 0.8 (1.0-2.1) L 02/15/17 12:44 Venous Blood Potassium 4.2 mmol/L (3.6-5.2) 02/15/17 14:15 - Hospital Course Hospital Course: Pt seen today , denies any chest pain, sob , abdominal pain ,N/V/D, pt is for discharge today Discharge Exam - Head Exam Head Exam: ATRAUMATIC, NORMAL INSPECTION, NORMOCEPHALIC - Eye Exam Eye Exam: EOMI, Normal appearance, PERRL Pupil Exam: NORMAL ACCOMODATION, PERRL - ENT Exam ENT Exam: Mucous Membranes Moist - Respiratory Exam Respiratory Exam: Clear to PA & Lateral, NORMAL BREATHING PATTERN - Cardiovascular Exam Cardiovascular Exam: REGULAR RHYTHM, +S1, +S2 - GI/Abdominal Exam GI & Abdominal Exam: Normal Bowel Sounds - Neurological Exam Neurological exam: Alert, CN II-XII Intact Discharge Plan - Discharge Medications Prescriptions: Vancomycin [Vancomycin Inj] 1 gm IVPB Q12 #14 vial - Follow Up Plan Condition: GUARDED Disposition: [facility] Instructions: Vancomycin (By injection), Cellulitis (GEN), How to Prevent Pressure Ulcers (GEN), Chronic Wound Care (GEN), Venous Insufficiency (GEN), Complications of Infection (GEN) Additional Instructions: Please admit patient under Dr. Dane Dill service -call Dr. Gio dill upon patient arrival to the facility
== END 2017-02-18 11:30 | DRG 638 ==
LOC: C.ER 11:30 → C.9E 12:48 → C.5T 23:41
PROVIDERS: ADMIT Internal Medicine; ATTEND Internal Medicine
DX: E11.628 Type 2 diabetes mellitus with other skin complications (principal); L97.919 Non-pressure chronic ulcer of unspecified part of right lower leg with unspecified severity; E11.51 Type 2 diabetes mellitus with diabetic peripheral angiopathy without gangrene; E11.622 Type 2 diabetes mellitus with other skin ulcer; Z68.44 Body mass index [BMI] 60.0-69.9, adult; L03.115 Cellulitis of right lower limb; L03.116 Cellulitis of left lower limb; I50.9 Heart failure, unspecified; E11.65 Type 2 diabetes mellitus with hyperglycemia; E66.01 Morbid (severe) obesity due to excess calories; L89.90 Pressure ulcer of unspecified site, unspecified stage; J45.909 Unspecified asthma, uncomplicated; J44.9 Chronic obstructive pulmonary disease, unspecified; I87.8 Other specified disorders of veins; I25.10 Atherosclerotic heart disease of native coronary artery without angina pectoris; I10 Essential (primary) hypertension; G47.30 Sleep apnea, unspecified; E03.9 Hypothyroidism, unspecified; E78.00 Pure hypercholesterolemia, unspecified; M79.7 Fibromyalgia; M19.90 Unspecified osteoarthritis, unspecified site; Z87.01 Personal history of pneumonia (recurrent); Z96.653 Presence of artificial knee joint, bilateral; Z86.711 Personal history of pulmonary embolism

== ENCOUNTER 2017-08-30 18:02 | Inpatient (IN) | payer MEDICARE, OTHER ==
[2017-08-30 18:13] VITALS: BMI 54.8
[2017-08-30] MEDS ORDERED: Piperacillin/Tazobact 3.375 gm 100 ML IV STA (18:45)
[2017-08-30] MEDS ORDERED: Vancomycin 1 GM 1 GM/250 ML BAG IV STA (18:51)
[2017-08-30] MEDS ORDERED: Piperacillin/Tazobact 3.375 gm 100 ML IVPB ONE (18:54)
[2017-08-30 19:04] LABS: BASO % 0.5 % (0.0-2.0); EOS # 0.1 K/uL (0.0-0.7); EOS % 1.3 % (0.0-4.0); HEMATOCRIT 28.3 % (35.0-51.0); LYMPH # 0.7 K/uL (1.0-4.3); LYMPH % 8.2 % (20.0-40.0); MEAN CORPUSCULAR HEMOGLOBIN 27.2 pg (27.0-31.0); MEAN CORPUSCULAR HGB CONC 33.6 g/dL (33.0-37.0); MEAN PLATELET VOLUME 8.9 fL (7.2-11.7); MONO # 0.5 K/uL (0.0-0.8); MONO % 6.1 % (0.0-10.0); PLATELET COUNT 260 K/uL (130-400); RED CELL DISTRIBUTION WIDTH 14.4 % (11.5-14.5); WHITE BLOOD COUNT 8.8 K/uL (4.8-10.8)
[2017-08-30 19:06] LABS: CHLORIDE 93 mmol/L (98-107); MEAN CELL VOLUME 81.1 fL (80.0-94.0)
[2017-08-30 19:07] LABS: POTASSIUM 3.5 mmol/L (3.6-5.2); SODIUM 137 mmol/L (132-148)
[2017-08-30 19:09] LABS: ALB/GLOB RATIO 0.8 (1.0-2.1); ALKALINE PHOSPHATASE 182 U/L (38-126); ALT/SGPT 25 U/L (21-72); AST/SGOT 22 U/L (17-59); BILIRUBIN,TOTAL 0.4 mg/dL (0.2-1.3); BLOOD UREA NITROGEN 16 mg/dL (9-20); CARBON DIOXIDE 33 mmol/L (22-30); GFR AFRICAN-AMERICAN > 60; GLUCOSE,RANDOM 153 mg/dL (75-110); TOTAL PROTEIN 7.4 g/dL (6.3-8.3)
[2017-08-30 19:10] LABS: CALCIUM 8.9 mg/dl (8.6-10.4)
--- NOTE | 2017-08-30 19:16 | C.PDOC ---
History Of Present Illness 57 year old male presents to the ED for evaluation of left lower leg wound that is weeping serous fluids associated with foul-smelling odor for the past 4 days. Patient states that his visiting nurse advised him to visit a hospital around 2 days ago. Patient has had multiple admissions related to recurrent cellulitis of his lower legs. Patient has been taking Vanomycin, Zosyn, and 80mg Lasix BID. Patient states he has been watching what he drinks and does not have a liquid restrictive diet. Patient denies fever, chills. Time Seen by Provider: 08/30/17 18:34 Chief Complaint (Nursing): Lower Extremity Problem/Injury History Per: Patient History/Exam Limitations: no limitations Onset/Duration Of Symptoms: Hrs Current Symptoms Are (Timing): Still Present Additional History Per: Patient Past Medical History Reviewed: Historical Data, Nursing Documentation, Vital Signs Vital Signs: Last Vital Signs Temp 98.1 F 08/30/17 20:47 Pulse 80 08/30/17 20:47 Resp 18 08/30/17 20:47 BP 127/78 08/30/17 20:47 Pulse Ox 94 L 08/30/17 23:37 - Medical History PMH: Arthritis, Asthma, Back Problems, CAD, CHF, COPD, Depression, Diabetes, Deep Vein Thrombosis, Fibromyalgia, Fractures, HTN, Hypercholesterolemia, Hyperthyroidism, Hypothyroidism, Peripheral Edema (+3 pitting ble), Pneumonia, Pulmonary Embolism, Chronic Kidney Disease (required HD in 2016 briefly), Sleep Apnea, Chronic Pain Surgical History: No Surg Hx - [facility] Procedures ASSISTANCE WITH RESPIRATORY VENTILATION, >96 HRS, CPAP (09/04/16) BATHING/SHOWERING TECHNIQUES TREATMENT (07/29/17) CENTRAL VENOUS CATHETER PLACEMENT WITH GUIDANCE (07/08/15) CLOSED ENDOSCOPIC BIOPSY OF LARGE INTESTINE (03/22/14) CONTIN POS AIRWAY PRESSURE [CPAP] (02/21/07) DERMAL REGENERATIVE GRAFT (06/15/15) DRESSING TECHNIQUES TREATMENT (07/29/17) DX ULTRASOUND-HEART (05/14/06) ENDOSC POLYPECTOMY OF LG INTEST (03/22/14) ENDOSCOPIC BRONCHIAL BX (09/22/04) ESOPHAGOGASTRODUODENOSCOPY [EGD] W/CLOSED BIOPSY (03/22/14) EXCIS DEBRIDE OF WOUND, INFECT, OR BURN (06/15/15) GAIT TRAINING/AMBULAT TREATMENT USING ASSIST EQUIPMENT (07/29/17) HETEROGRAFT TO SKIN (10/29/14) HOME MANAGEMENT TREATMENT (07/29/17) INJECT ANTIBIOTIC (05/29/06) INJECT ANTICOAGULANT (11/17/04) INJECT/INFUSE NEC (03/22/14) INSERTION OF INFUSION DEV INTO SUP VENA CAVA, PERC APPROACH (09/04/16) INSPECTION OF BLADDER, ENDO (06/22/16) INTRODUCE OF OTH THERAP SUBST INTO RESP TRACT, VIA OPENING (04/06/16) NEBULIZER THERAPY (09/18/14) NON-INVASIVE MECHANICAL VENTILATION (08/13/12) NONEXCIS DEBRID OF WOUND, INFECT, OR BURN (10/09/14) OCCUPATIONAL THERAPY (03/17/14) PERFORMANCE OF URINARY FILTRATION, MULTIPLE (09/04/16) PHYSICAL THERAPY NEC (03/17/14) TRANSFUSE NONAUT FROZEN PLASMA IN PERIPH VEIN, PERC (09/04/16) VENOUS CATHETERIZATION NEC (04/25/15) Family History: States: Unknown Family Hx - Social History Hx Tobacco Use: No Hx Alcohol Use: No Hx Substance Use: No - Immunization History Hx Tetanus Toxoid Vaccination: No Hx Influenza Vaccination: Yes Hx Pneumococcal Vaccination: No Review Of Systems Constitutional: Negative for: Fever, Chills Skin: Positive for: Other (left lower leg wound with serous, odorous fluid drainage) Physical Exam - Physical Exam Appears: Non-toxic, No Acute Distress, Other (morbidly obese ) Skin: Warm, Other (moist weeping L>R lower legs with chronic stasis dermatitis b /l no cellulitic areas noted.) Eye(s): bilateral: Normal Inspection Oral Mucosa: Moist Neck: Supple Chest: Symmetrical, No Deformity, No Tenderness Cardiovascular: Rhythm Regular, No Murmur Extremity: Normal ROM, Capillary Refill (less than 2 seconds ), Other (stasis dermatitis to b/l lower extremities with foul-smelling serous discharge. Left> Right) Neurological/Psych: Oriented x3, Normal Speech, Normal Cognition Gait: Steady ED Course And Treatment - Laboratory Results Result Diagrams: 08/30/17 18:50 08/30/17 18:50 O2 Sat by Pulse Oximetry: 94 Progress Note: EKG and CXR ordered and reviewed. Patient received Zosyn IV and Vancomycin IV Disposition Doctor Will See Patient In The: Hospital Counseled Patient/Family Regarding: Studies Performed, Diagnosis - Disposition Disposition: HOSPITALIZED Disposition Time: 20:00 Condition: FAIR - Clinical Impression Clinical Impression: Cellulitis - Scribe Statement The provider has reviewed the documentation as recorded by the Scribe (Felisha Murdock) Provider Attestation: All medical record entries made by the Scribe were at my direction and personally dictated by me. I have reviewed the chart and agree that the record accurately reflects my personal performance of the history, physical exam, medical decision making, and the department course for this patient. I have also personally directed, reviewed, and agree with the discharge instructions and disposition.
[2017-08-30] MEDS ORDERED: Vancomycin 1 GM 1 GM/250 ML BAG IVPB ONE (19:32)
[2017-08-30 19:36] LABS: INR 2.8
[2017-08-30] MEDS ORDERED: Oxycodone/Acetaminophen 5/325 mg Tab PO STA (19:39)
[2017-08-30] MEDS ORDERED: Oxycodone/Acetaminophen 5/325 mg Tab ONE (19:44)
[2017-08-30 19:48] LABS: EOSINOPHIL 1 % (0-4); NEUTROPHIL 84 % (50-75); TOTAL CELLS COUNTED 100
[2017-08-30] MEDS: oxyCODONE 80 mg ER Tab (oxyCONTIN) PO SCH (22:29)
[2017-08-30] MEDS: oxyCODONE 5 mg Immediate Release Tab PO SCH (22:29)
--- NOTE | 2017-08-30 23:14 | CP.PCM.HP ---
History of Present Illness - History of Present Illness History of Present Illness: 57 year old male presents to the ED for evaluation of left lower leg wound that is weeping serous fluids associated with foul-smelling odor for the past 4 days. Patient states that his visiting nurse advised him to visit a hospital around 2 days ago. Patient has had multiple admissions related to recurrent cellulitis of his lower legs. Patient has been taking Vanomycin, Zosyn, and 80mg Lasix BID. Patient states he has been watching what he drinks and does not have a liquid restrictive diet. Patient denies fever, chills. Present on Admission - Present on Admission Any Indicators Present on Admission: No Past Patient History - Infectious Disease Hx of Infectious Diseases: None - Tetanus Immunizations Tetanus Immunization: Unknown - Past Medical History & Family History Past Medical History?: Yes - Past Social History Smoking Status: Never Smoked - CARDIAC Hx Congestive Heart Failure: Yes Hx Hypercholesterolemia: Yes Hx Hypertension: Yes Hx Peripheral Edema: Yes (+3 pitting ble) - PULMONARY Hx Asthma: Yes Hx Chronic Obstructive Pulmonary Disease (COPD): Yes Hx Pneumonia: Yes Hx Pulmonary Embolism: Yes Hx Sleep Apnea: Yes - NEUROLOGICAL Hx Neurological Disorder: No - HEENT Hx HEENT Problems: No - RENAL Hx Chronic Kidney Disease: Yes (required HD in 2016 briefly) - ENDOCRINE/METABOLIC Hx Hyperthyroidism: Yes Hx Hypothyroidism: Yes - HEMATOLOGICAL/ONCOLOGICAL Hx Blood Disorders: No - INTEGUMENTARY Hx Dermatological Problems: Yes Other/Comment: both leggs discolored - MUSCULOSKELETAL/RHEUMATOLOGICAL Hx Arthritis: Yes Hx Falls: No Hx Fractures: Yes - GASTROINTESTINAL Hx Gastrointestinal Disorders: (reflux obese) - GENITOURINARY/GYNECOLOGICAL Hx Reproductive Disorders: No - PSYCHIATRIC Hx Depression: Yes Hx Substance Use: No - SURGICAL HISTORY Hx Surgeries: Yes Hx Orthopedic Surgery: Yes (bilateral knee replacement) Other/Comment: total left knee - 1998. right ankle screws - 1987. right hip shyam - 1982 - ANESTHESIA Hx Anesthesia: Yes Hx Anesthesia Reactions: No Hx Malignant Hyperthermia: No Meds Allergies/Adverse Reactions: Allergies Allergy/AdvReac Type Severity Reaction Status Date / Time No Known Allergies Allergy Verified 08/30/17 18:10 Physical Exam - Constitutional Appears: No Acute Distress - Head Exam Head Exam: ATRAUMATIC, NORMAL INSPECTION, NORMOCEPHALIC - Eye Exam Eye Exam: EOMI, Normal appearance, PERRL Pupil Exam: NORMAL ACCOMODATION, PERRL - Respiratory Exam Respiratory Exam: Rales, Wheezes - Cardiovascular Exam Cardiovascular Exam: REGULAR RHYTHM - GI/Abdominal Exam GI & Abdominal Exam: Normal Bowel Sounds, Soft. absent: Tenderness - Extremities Exam Additional comments: Derm: Localized erythema to bilateral mid-calves extending circumfrentially. Cellulitis localized along superficial ulcerations. Left: Diffuse open venous stasis ulcerations spanning the anterior and lateral aspects of mid-leg with significant amount of active sanguinous drainage noted to proximal lateral ulcerations. Wounds have a granular base with actively bleeding tissue. Malodor noted upon dressing change. No probe to bone, no purulence, no undermining. Right: Venous stasis ulceration to anterior distal 1/3 of leg measuring approximately 2.5cm x 1.8cm x 0.1cm with granular base, mild amount of serous drainage, no active bleeding, no undermining, no tracking, no probe to bone. Superficial ulceration with no active drainage noted to medial aspect of right leg with granular base, no purulence. Vasc: Non-palpable pedal pulses due to edema B/L. TG warm to warm, CFT < 3 sec to all digits, +1 pitting edema to B/L legs. Neuro: protective sensation grossly diminished MSK: significant tenderness on palpation to b/l LE L>R Results - Vital Signs Recent Vital Signs: Last Vital Signs Temp 98.1 F 08/30/17 20:47 Pulse 80 08/30/17 20:47 Resp 18 08/30/17 20:47 BP 127/78 08/30/17 20:47 Pulse Ox 94 L 08/30/17 22:31 - Labs Result Diagrams: 09/03/17 05:50 09/03/17 05:50 Labs: Laboratory Results - last 24 hr 08/30/17 08/30/17 08/30/17 18:50 18:50 19:25 WBC 8.8 RBC 3.49 L Hgb 9.5 L D Hct 28.3 L MCV 81.1 D MCH 27.2 MCHC 33.6 RDW 14.4 Plt Count 260 MPV 8.9 Neut % (Auto) 83.9 H Lymph % (Auto) 8.2 L Thomas % (Auto) 6.1 Eos % (Auto) 1.3 Baso % (Auto) 0.5 Neut # 7.4 H Lymph # 0.7 L Thomas # 0.5 Eos # 0.1 Baso # 0.0 Neutrophils % (Manual) 84 H Lymphocytes % (Manual) 8 L Monocytes % (Manual) 7 Eosinophils % (Manual) 1 Platelet Estimate Normal Hypochromasia (manual) Slight Poikilocytosis (manual Slight Anisocytosis (manual) Slight Microcytosis (manual) Slight Ovalocytes Slight PT 32.3 H* INR 2.8 APTT 42 H Sodium 137 Potassium 3.5 L Chloride 93 L Carbon Dioxide 33 H Anion Gap 15 BUN 16 Creatinine 1.1 Est GFR ( Amer) > 60 Est GFR (Non-Af Amer) > 60 Random Glucose 153 H Calcium 8.9 Total Bilirubin 0.4 AST 22 ALT 25 Alkaline Phosphatase 182 H Troponin I < 0.0120 NT-Pro-B Natriuret Pep 668 Total Protein 7.4 Albumin 3.3 L Globulin 4.1 H Albumin/Globulin Ratio 0.8 L Assessment & Plan (1) Cellulitis Status: Acute (2) Altered mental status Status: Acute (3) Decubitus ulcer Status: Acute (4) ANTONIA (generalized anxiety disorder) Status: Acute
[2017-08-30] MEDS: (Novolin R) Insulin Human Regular 100 units/ml vial SC SCH (23:21)
[2017-08-31] MEDS ORDERED: oxyCODONE 80 mg ER Tab (oxyCONTIN) PO SCH
[2017-08-31] MEDS: Piperacill/Tazo 3.375gm in Dex 3.375 GM/50 ML BAG IVPB SCH ×5 (00:09→23:41)
[2017-08-31] MEDS: oxyCODONE 80 mg ER Tab (oxyCONTIN) PO SCH ×3 (05:57→21:45)
[2017-08-31] MEDS: Levothyroxine 75 MCG TAB PO SCH (05:58)
[2017-08-31] MEDS: Vancomycin 1 gm/NS 200 ml 1 GM/200 ML BAG IVPB SCH ×2 (06:01→19:09)
[2017-08-31] MEDS: (Novolin R) Insulin Human Regular 100 units/ml vial SC SCH ×4 (07:43→21:46)
--- NOTE | 2017-08-31 09:19 | RAD ---
PROCEDURE: CHEST RADIOGRAPH, 1 VIEW HISTORY: Shortness of breath COMPARISON: 02/15/2017 FINDINGS: LUNGS: Mild venous congestion. PLEURA: No pneumothorax or pleural fluid seen. CARDIOVASCULAR: Prominent aorta which may be related to patient positioning and technique. OSSEOUS STRUCTURES: No significant abnormalities. VISUALIZED UPPER ABDOMEN: Normal. OTHER FINDINGS: None. IMPRESSION: Mild venous congestion.
--- NOTE | 2017-08-31 10:08 | CP.PCM.PN ---
Subjective - Date & Time of Evaluation Date of Evaluation: 08/31/17 Time of Evaluation: 10:08 - Subjective Subjective: Alert and orientedx3, moderate distress from pain from his leg ulcers. Objective - Vital Signs/Intake and Output Vital Signs (last 24 hours): Temp Pulse Resp BP Pulse Ox 98.3 F 68 20 142/77 96 08/31/17 08:00 08/31/17 08:00 08/31/17 08:00 08/31/17 08:00 08/31/17 08:00 - Medications Medications: Current Medications Docusate Sodium (Colace) 100 mg PO BID PRN PRN Reason: Constipation Furosemide (Lasix) 80 mg PO BID [facility] Hydralazine HCl (Apresoline) 25 mg PO Q8 [facility] Last Admin: 08/31/17 05:57 Dose: 25 mg Piperacillin Sod/Tazobactam Sod (Zosyn 3.375 Gm Iv Premix) 3.375 gm in 50 mls @ 100 mls/hr IVPB Q6H [facility] Last Admin: 08/31/17 05:19 Dose: 100 mls/hr Vancomycin/Sodium Chloride (Vancocin) 1 gm in 200 mls @ 133.333 mls/hr IVPB Q12H [facility] Stop: 09/05/17 07:01 Last Admin: 08/31/17 06:01 Dose: 133.333 mls/hr Insulin Human Regular (Novolin R) 0 unit SC ACHS [facility] PRN Reason: Protocol Last Admin: 08/31/17 07:43 Dose: Not Given Levothyroxine Sodium (Synthroid) 75 mcg PO DAILY@0630 [facility] Last Admin: 08/31/17 05:58 Dose: 75 mcg Metformin HCl (Glucophage) 1,000 mg PO BID [facility] Montelukast Sodium (Singulair) 10 mg PO HS [facility] Last Admin: 08/30/17 22:29 Dose: 10 mg Oxycodone HCl (Oxycodone Immediate Release Tab) 15 mg PO QID [facility] Last Admin: 08/30/17 22:29 Dose: 15 mg Oxycodone HCl (Oxycontin Extended Release Tab) 80 mg PO Q8 [facility] Last Admin: 08/31/17 05:57 Dose: 80 mg Pantoprazole Sodium (Protonix Ec Tab) 40 mg PO DAILY [facility] Potassium Chloride (K-Dur 20 Meq Er Tab) 20 meq PO BID [facility] Fluticasone/Salmeterol (Advair Diskus 250/50) 1 puff IH RBID [facility] Trazodone HCl (Desyrel) 50 mg PO HS [facility] Last Admin: 08/30/17 23:09 Dose: Not Given Warfarin Sodium (Coumadin) 11 mg PO 1800 [facility] Zolpidem Tartrate (Ambien) 5 mg PO HS PRN PRN Reason: Insomnia - Labs Labs: 08/30/17 18:50 08/30/17 18:50 PT 32.3 SECONDS (9.7-12.2) H* 08/30/17 19:25 INR 2.8 08/30/17 19:25 APTT 42 SECONDS (21-34) H 08/30/17 19:25 Assessment and Plan - Assessment and Plan (Free Text) Assessment: Patient with cellulitis both legs, with severe pain and infection, need iv antibiotics and podiatry evaluation. D/W DR Albright, need more than 2 midnights , so flipped to admission.
--- NOTE | 2017-08-31 10:28 | CP.PCM.CON ---
History of Present Illness - History of Present Illness History of Present Illness: 57 year old male presents to the ED for evaluation of left lower leg wound that is weeping serous fluids associated with foul-smelling odor for the past 4 days. Patient states that his visiting nurse advised him to visit a hospital around 2 days ago. Patient has had multiple admissions related to recurrent cellulitis of his lower legs. Patient has been taking Vanomycin, Zosyn, and 80mg Lasix BID. Patient states he has been watching what he drinks and does not have a liquid restrictive diet. Patient denies fever, chills. - Medical History PMH: Arthritis, Asthma, Back Problems, CAD, CHF, COPD, Depression, Diabetes, Deep Vein Thrombosis, Fibromyalgia, Fractures, HTN, Hypercholesterolemia, Hyperthyroidism, Hypothyroidism, Peripheral Edema (+3 pitting ble), Pneumonia, Pulmonary Embolism, Chronic Kidney Disease (required HD in 2016 briefly), Sleep Apnea, Chronic Pain Review of Systems - Constitutional Constitutional: As Per HPI - EENT Eyes: absent: As Per HPI, Blind Spots, Blurred Vision, Change in Vision, Decreased Night Vision, Diplopia, Discharge, Dry Eye, Exophthalmos, Floaters, Irritation, Itchy Eyes, Loss of Peripheral Vision, Pain, Photophobia, Requires Corrective Lenses, Sees Flashes, Spots in Vision, Tunnel Vision, Other Visual Disturbances, Loss of Vision, Other Ears: absent: As Per HPI, Decreased Hearing, Ear Discharge, Ear Pain, Tinnitus, Abnormal Hearing, Disequilibrium, Dizziness, Other Nose/Mouth/Throat: absent: As Per HPI, Epistaxis, Nasal Congestion, Nasal Discharge, Nasal Obstruction, Nasal Trauma, Nose Pain, Post Nasal Drip, Sinus Pain, Sinus Pressure, Bleeding Gums, Change in Voice, Dental Pain, Dry Mouth, Dysphagia, Halitosis, Hoarsness, Lip Swelling, Mouth Lesions, Mouth Pain, Odynophagia, Sore Throat, Throat Swelling, Tongue Swelling, Facial Pain, Neck Pain, Neck Mass, Other - Cardiovascular Cardiovascular: absent: As Per HPI, Acrocyanosis, Chest Pain, Chest Pain at Rest , Chest Pain with Activity, Claudication, Diaphoresis, Dyspnea, Dyspnea on Exertion, Edema, Irregular Heart Rhythm, Pain Radiating to Arm/Neck/Jaw, Leg Edema, Leg Ulcers, Lightheadedness, Orthopnea, Palpitations, Paroxysmal Nocturnal Dyspnea, Pedal Edema, Radiating Pain, Rapid Heart Rate, Slow Heart Rate, Syncope, Other - Respiratory Respiratory: absent: As Per HPI, Cough, Dyspnea, Hemoptysis, Dyspnea on Exertion , Wheezing, Snoring, Stridor, Pain on Inspiration, Chest Congestion, Excessive Mucous Production, Change in Mucous Color, Pain with Coughing, Other - Gastrointestinal Gastrointestinal: absent: As Per HPI, Abdominal Pain, Belching, Bloating, Change in Bowel Habits, Change in Stool Character, Coffee Ground Emesis, Constipation, Cramping, Diarrhea, Dyspepsia, Dysphagia, Early Satiety, Excessive Flatus, Fecal Incontinence, Heartburn, Hematemesis, Hematochezia, Loose Stools, Melena, Nausea, Odynophagia, Temesmus, Vomiting, Other - Genitourinary Genitourinary: absent: As Per HPI, Change in Urinary Stream, Difficulty Urinating, Dysuria, Flank Pain, Hematuria, Pyuria, Nocturia, Urinary Incontinence, Urinary Frequency, Urinary Hesitance, Urinary Urgency, Voiding Freq/Small Amts, Freq UTI, Hx Renal/Bladder Calculi, Hx /Renal Surgery, Bladder Distension, Other - Musculoskeletal Musculoskeletal: absent: As Per HPI, Abnormal Gait, Arthralgias, Atrophy, Back Pain, Deformity, Joint Swelling, Limited Range of Motion, Loss of Height, Muscle Cramps, Muscle Weakness, Myalgias, Neck Pain, Numbness, Radiating Pain into Limb, Stiffness, Tingling, Other - Integumentary Integumentary: As Per HPI - Neurological Neurological: absent: As Per HPI, Abnormal Gait, Abnormal Hearing, Abnormal Movements, Abnormal Speech, Behavioral Changes, Burning Sensations, Confusion, Convulsions, Disequilibrium, Dizziness, Numbness, Focal Weakness, Frequent Falls , Headaches, Lack of Coordination, Loss of Vision, Memory Loss, Paresthesias, Radicular Pain, Restless Legs, Sensory Deficit, Syncope, Tingling, Tremor, Vertigo, Weakness, Other Visual Disturbances, Other - Psychiatric Psychiatric: absent: As Per HPI, Abnormal Sleep Pattern, Anhedonia, Anxiety, Auditory Hallucinations, Behavioral Changes, Change in Appetite, Change in Libido, Confusion, Depression, Difficulty Concentrating, Hallucinations, Homicidal Ideation, Hopelessness, Irritability, Memory Loss, Mood Swings, Panic Attacks, Paranoia, Suicidal Ideation, Visual Hallucinations, Tactile Hallucinations, Other - Endocrine Endocrine: absent: As Per HPI, Change in Body Appearance, Change in Libido, Cold Intolorance, Deepening of Voice, Excessive Sweating, Fatigue, Flushing, Heat Intolorance, Increase in Ring/Shoe/Hat Size, Palpitations, Polydipsia, Polyphagia, Polyuria, Other - Hematologic/Lymphatic Hematologic: absent: As Per HPI, Easy Bleeding, Easy Bruising, Lymphadenopathy, Other Past Patient History - Infectious Disease Hx of Infectious Diseases: None - Tetanus Immunizations Tetanus Immunization: Unknown - Past Medical History & Family History Past Medical History?: Yes - Past Social History Smoking Status: Never Smoked - CARDIAC Hx Congestive Heart Failure: Yes Hx Hypercholesterolemia: Yes Hx Hypertension: Yes Hx Peripheral Edema: Yes (+3 pitting ble) - PULMONARY Hx Asthma: Yes Hx Chronic Obstructive Pulmonary Disease (COPD): Yes Hx Pneumonia: Yes Hx Pulmonary Embolism: Yes Hx Sleep Apnea: Yes - NEUROLOGICAL Hx Neurological Disorder: No - HEENT Hx HEENT Problems: No - RENAL Hx Chronic Kidney Disease: Yes (required HD in 2016 briefly) - ENDOCRINE/METABOLIC Hx Hyperthyroidism: Yes Hx Hypothyroidism: Yes - HEMATOLOGICAL/ONCOLOGICAL Hx Blood Disorders: No - INTEGUMENTARY Hx Dermatological Problems: Yes Other/Comment: both leggs discolored - MUSCULOSKELETAL/RHEUMATOLOGICAL Hx Arthritis: Yes Hx Fractures: Yes - GASTROINTESTINAL Hx Gastrointestinal Disorders: (reflux obese) - GENITOURINARY/GYNECOLOGICAL Hx Reproductive Disorders: No - PSYCHIATRIC Hx Depression: Yes Hx Substance Use: No - SURGICAL HISTORY Hx Surgeries: Yes Hx Orthopedic Surgery: Yes (bilateral knee replacement) Other/Comment: total left knee - 1998. right ankle screws - 1987. right hip shyam - 1982 - ANESTHESIA Hx Anesthesia: Yes Hx Anesthesia Reactions: No Hx Malignant Hyperthermia: No Meds Allergies/Adverse Reactions: Allergies Allergy/AdvReac Type Severity Reaction Status Date / Time No Known Allergies Allergy Verified 08/30/17 18:10 - Medications Medications: Current Medications Docusate Sodium (Colace) 100 mg PO BID PRN PRN Reason: Constipation Furosemide (Lasix) 80 mg PO BID [facility] Hydralazine HCl (Apresoline) 25 mg PO Q8 [facility] Last Admin: 08/31/17 05:57 Dose: 25 mg Piperacillin Sod/Tazobactam Sod (Zosyn 3.375 Gm Iv Premix) 3.375 gm in 50 mls @ 100 mls/hr IVPB Q6H [facility] Last Admin: 08/31/17 05:19 Dose: 100 mls/hr Vancomycin/Sodium Chloride (Vancocin) 1 gm in 200 mls @ 133.333 mls/hr IVPB Q12H [facility] Stop: 09/05/17 07:01 Last Admin: 08/31/17 06:01 Dose: 133.333 mls/hr Insulin Human Regular (Novolin R) 0 unit SC ACHS [facility] PRN Reason: Protocol Last Admin: 08/31/17 07:43 Dose: Not Given Levothyroxine Sodium (Synthroid) 75 mcg PO DAILY@0630 [facility] Last Admin: 08/31/17 05:58 Dose: 75 mcg Metformin HCl (Glucophage) 1,000 mg PO BID [facility] Montelukast Sodium (Singulair) 10 mg PO HS [facility] Last Admin: 08/30/17 22:29 Dose: 10 mg Oxycodone HCl (Oxycodone Immediate Release Tab) 15 mg PO QID [facility] Last Admin: 08/30/17 22:29 Dose: 15 mg Oxycodone HCl (Oxycontin Extended Release Tab) 80 mg PO Q8 [facility] Last Admin: 08/31/17 05:57 Dose: 80 mg Pantoprazole Sodium (Protonix Ec Tab) 40 mg PO DAILY [facility] Potassium Chloride (K-Dur 20 Meq Er Tab) 20 meq PO BID [facility] Fluticasone/Salmeterol (Advair Diskus 250/50) 1 puff IH RBID [facility] Trazodone HCl (Desyrel) 50 mg PO HS [facility] Last Admin: 08/30/17 23:09 Dose: Not Given Warfarin Sodium (Coumadin) 5 mg PO 1800 [facility] Zolpidem Tartrate (Ambien) 5 mg PO HS PRN PRN Reason: Insomnia Physical Exam - Constitutional Appears: Non-toxic, Chronically Ill - Head Exam Head Exam: NORMOCEPHALIC - Eye Exam Eye Exam: PERRL. absent: Scleral icterus - ENT Exam ENT Exam: Mucous Membranes Dry, Normal External Ear Exam - Neck Exam Neck exam: Negative for: Lymphadenopathy - Respiratory Exam Respiratory Exam: Decreased Breath Sounds, Clear to Auscultation Bilateral - Cardiovascular Exam Cardiovascular Exam: REGULAR RHYTHM, +S1, +S2 - GI/Abdominal Exam GI & Abdominal Exam: Diminished Bowel Sounds, Soft. absent: Tenderness - Rectal Exam Rectal Exam: Deferred - Exam Exam: NORMAL INSPECTION - Extremities Exam Extremities exam: Positive for: pedal pulses present. Negative for: calf tenderness, pedal edema, tenderness - Back Exam Back exam: absent: CVA tenderness (L), CVA tenderness (R) - Neurological Exam Neurological exam: Alert, CN II-XII Intact, Oriented x3, Reflexes Normal - Psychiatric Exam Psychiatric exam: Depressed - Skin Skin Exam: Dry, Intact Results - Vital Signs Recent Vital Signs: Last Vital Signs Temp 98.3 F 08/31/17 08:00 Pulse 68 08/31/17 08:00 Resp 20 08/31/17 08:00 BP 142/77 08/31/17 08:00 Pulse Ox 96 08/31/17 08:00 - Labs Result Diagrams: 09/01/17 06:14 09/01/17 06:14 Labs: Laboratory Results - last 24 hr 08/30/17 08/30/17 08/30/17 18:50 18:50 19:25 WBC 8.8 RBC 3.49 L Hgb 9.5 L D Hct 28.3 L MCV 81.1 D MCH 27.2 MCHC 33.6 RDW 14.4 Plt Count 260 MPV 8.9 Neut % (Auto) 83.9 H Lymph % (Auto) 8.2 L Powell % (Auto) 6.1 Eos % (Auto) 1.3 Baso % (Auto) 0.5 Neut # 7.4 H Lymph # 0.7 L Powell # 0.5 Eos # 0.1 Baso # 0.0 Neutrophils % (Manual) 84 H Lymphocytes % (Manual) 8 L Monocytes % (Manual) 7 Eosinophils % (Manual) 1 Platelet Estimate Normal Hypochromasia (manual) Slight Poikilocytosis (manual Slight Anisocytosis (manual) Slight Microcytosis (manual) Slight Ovalocytes Slight PT 32.3 H* INR 2.8 APTT 42 H Sodium 137 Potassium 3.5 L Chloride 93 L Carbon Dioxide 33 H Anion Gap 15 BUN 16 Creatinine 1.1 Est GFR ( Amer) > 60 Est GFR (Non-Af Amer) > 60 POC Glucose (mg/dL) Random Glucose 153 H Calcium 8.9 Total Bilirubin 0.4 AST 22 ALT 25 Alkaline Phosphatase 182 H Troponin I < 0.0120 NT-Pro-B Natriuret Pep 668 Total Protein 7.4 Albumin 3.3 L Globulin 4.1 H Albumin/Globulin Ratio 0.8 L 08/30/17 08/31/17 23:17 07:04 WBC RBC Hgb Hct MCV MCH MCHC RDW Plt Count MPV Neut % (Auto) Lymph % (Auto) Powell % (Auto) Eos % (Auto) Baso % (Auto) Neut # Lymph # Powell # Eos # Baso # Neutrophils % (Manual) Lymphocytes % (Manual) Monocytes % (Manual) Eosinophils % (Manual) Platelet Estimate Hypochromasia (manual) Poikilocytosis (manual Anisocytosis (manual) Microcytosis (manual) Ovalocytes PT INR APTT Sodium Potassium Chloride Carbon Dioxide Anion Gap BUN Creatinine Est GFR ( Amer) Est GFR (Non-Af Amer) POC Glucose (mg/dL) 116 H 108 Random Glucose Calcium Total Bilirubin AST ALT Alkaline Phosphatase Troponin I NT-Pro-B Natriuret Pep Total Protein Albumin Globulin Albumin/Globulin Ratio Assessment & Plan (1) Cellulitis Status: Acute (2) Morbid obesity Status: Acute (3) Type 2 diabetes mellitus Status: Acute (4) Acute renal failure (ARF) Status: Acute (5) Altered mental status Status: Acute (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
[2017-08-31] MEDS: oxyCODONE 5 mg Immediate Release Tab PO SCH ×4 (10:43→21:45)
[2017-08-31] MEDS: Pantoprazole 40 mg EC Tab PO SCH (10:45)
[2017-08-31] MEDS: Potassium Chloride 20 mEq ER Tab PO SCH ×2 (10:45→17:45)
--- NOTE | 2017-08-31 17:37 | CP.PCM.CON ---
<Rui Hennessy - Last Filed: 08/31/17 17:35> History of Present Illness - History of Present Illness History of Present Illness: 57 year old male with extensive PMHx seen on floors for b/l venous stasis ulcerations and cellulitis. Patient states that he has a history of b/l leg wounds of this type and has been seen by Dr. Laguna in the past for treatment as well as Dr. Roach and Dr. Madison at [facility]. Patient states that he is in severe pain with any form of palpation to his legs. He denies any further pedal complaints. He denies N/V/F/C/CP/SOB Review of Systems - Review of Systems Review of Systems: ROS unremarkable outside of HPI Past Patient History - Infectious Disease Hx of Infectious Diseases: None - Tetanus Immunizations Tetanus Immunization: Unknown - Past Medical History & Family History Past Medical History?: Yes - Past Social History Smoking Status: Never Smoked - CARDIAC Hx Congestive Heart Failure: Yes Hx Hypercholesterolemia: Yes Hx Hypertension: Yes Hx Peripheral Edema: Yes (+3 pitting ble) - PULMONARY Hx Asthma: Yes Hx Chronic Obstructive Pulmonary Disease (COPD): Yes Hx Pneumonia: Yes Hx Pulmonary Embolism: Yes Hx Sleep Apnea: Yes - NEUROLOGICAL Hx Neurological Disorder: No - HEENT Hx HEENT Problems: No - RENAL Hx Chronic Kidney Disease: Yes (required HD in 2016 briefly) - ENDOCRINE/METABOLIC Hx Hyperthyroidism: Yes Hx Hypothyroidism: Yes - HEMATOLOGICAL/ONCOLOGICAL Hx Blood Disorders: No - INTEGUMENTARY Hx Dermatological Problems: Yes Other/Comment: both leggs discolored - MUSCULOSKELETAL/RHEUMATOLOGICAL Hx Arthritis: Yes Hx Fractures: Yes - GASTROINTESTINAL Hx Gastrointestinal Disorders: (reflux obese) - GENITOURINARY/GYNECOLOGICAL Hx Reproductive Disorders: No - PSYCHIATRIC Hx Depression: Yes Hx Substance Use: No - SURGICAL HISTORY Hx Surgeries: Yes Hx Orthopedic Surgery: Yes (bilateral knee replacement) Other/Comment: total left knee - 1998. right ankle screws - 1987. right hip shyam - 1982 - ANESTHESIA Hx Anesthesia: Yes Hx Anesthesia Reactions: No Hx Malignant Hyperthermia: No Meds Allergies/Adverse Reactions: Allergies Allergy/AdvReac Type Severity Reaction Status Date / Time No Known Allergies Allergy Verified 08/30/17 18:10 - Medications Medications: Current Medications Betamethasone/Clotrimazole (Lotrisone) 0 gm TOP BID [facility] Docusate Sodium (Colace) 100 mg PO BID PRN PRN Reason: Constipation Furosemide (Lasix) 80 mg PO BID [facility] Last Admin: 08/31/17 11:00 Dose: 80 mg Hydralazine HCl (Apresoline) 25 mg PO Q8 [facility] Last Admin: 08/31/17 13:25 Dose: 25 mg Piperacillin Sod/Tazobactam Sod (Zosyn 3.375 Gm Iv Premix) 3.375 gm in 50 mls @ 100 mls/hr IVPB Q6H [facility] Last Admin: 08/31/17 13:28 Dose: 100 mls/hr Vancomycin/Sodium Chloride (Vancocin) 1 gm in 200 mls @ 133.333 mls/hr IVPB Q12H [facility] Stop: 09/05/17 07:01 Last Admin: 08/31/17 06:01 Dose: 133.333 mls/hr Insulin Human Regular (Novolin R) 0 unit SC ACHS [facility] PRN Reason: Protocol Last Admin: 08/31/17 17:07 Dose: Not Given Levothyroxine Sodium (Synthroid) 75 mcg PO DAILY@0630 [facility] Last Admin: 08/31/17 05:58 Dose: 75 mcg Metformin HCl (Glucophage) 1,000 mg PO BID [facility] Last Admin: 08/31/17 10:45 Dose: 1,000 mg Montelukast Sodium (Singulair) 10 mg PO [facility] Last Admin: 08/30/17 22:29 Dose: 10 mg Oxycodone HCl (Oxycodone Immediate Release Tab) 15 mg PO QID [facility] Last Admin: 08/31/17 14:56 Dose: 15 mg Oxycodone HCl (Oxycontin Extended Release Tab) 80 mg PO Q8 [facility] Last Admin: 08/31/17 13:25 Dose: 80 mg Pantoprazole Sodium (Protonix Ec Tab) 40 mg PO DAILY [facility] Last Admin: 08/31/17 10:45 Dose: 40 mg Potassium Chloride (K-Dur 20 Meq Er Tab) 20 meq PO BID [facility] Last Admin: 08/31/17 10:45 Dose: 20 meq Fluticasone/Salmeterol (Advair Diskus 250/50) 1 puff IH RBID [facility] Trazodone HCl (Desyrel) 50 mg PO HS [facility] Last Admin: 08/30/17 23:09 Dose: Not Given Warfarin Sodium (Coumadin) 5 mg PO 1800 [facility] Zolpidem Tartrate (Ambien) 5 mg PO HS PRN PRN Reason: Insomnia Physical Exam - Constitutional Appears: Well, Non-toxic, No Acute Distress - Extremities Exam Additional comments: LE focused exam: Derm: Localized erythema to bilateral mid-calves extending circumfrentially. Cellulitis localized along superficial ulcerations. Left: Diffuse open venous stasis ulcerations spanning the anterior and lateral aspects of mid-leg with significant amount of active sanguinous drainage noted to proximal lateral ulcerations. Wounds have a granular base with actively bleeding tissue. Malodor noted upon dressing change. No probe to bone, no purulence, no undermining. Right: Venous stasis ulceration to anterior distal 1/3 of leg measuring approximately 2.5cm x 1.8cm x 0.1cm with granular base, mild amount of serous drainage, no active bleeding, no undermining, no tracking, no probe to bone. Superficial ulceration with no active drainage noted to medial aspect of right leg with granular base, no purulence. Vasc: Non-palpable pedal pulses due to edema B/L. TG warm to warm, CFT < 3 sec to all digits, +1 pitting edema to B/L legs. Neuro: protective sensation grossly diminished MSK: significant tenderness on palpation to b/l LE L>R - Neurological Exam Neurological exam: Alert, Oriented x3 - Psychiatric Exam Psychiatric exam: Normal Affect, Normal Mood Results - Vital Signs Recent Vital Signs: Last Vital Signs Temp 97.6 F 08/31/17 15:29 Pulse 65 08/31/17 15:29 Resp 20 08/31/17 15:29 BP 113/70 08/31/17 15:29 Pulse Ox 95 08/31/17 15:29 - Labs Result Diagrams: 08/30/17 18:50 08/30/17 18:50 Labs: Laboratory Results - last 24 hr 08/30/17 08/30/17 08/30/17 18:50 18:50 19:25 WBC 8.8 RBC 3.49 L Hgb 9.5 L D Hct 28.3 L MCV 81.1 D MCH 27.2 MCHC 33.6 RDW 14.4 Plt Count 260 MPV 8.9 Neut % (Auto) 83.9 H Lymph % (Auto) 8.2 L Shoshone % (Auto) 6.1 Eos % (Auto) 1.3 Baso % (Auto) 0.5 Neut # 7.4 H Lymph # 0.7 L Shoshone # 0.5 Eos # 0.1 Baso # 0.0 Neutrophils % (Manual) 84 H Lymphocytes % (Manual) 8 L Monocytes % (Manual) 7 Eosinophils % (Manual) 1 Platelet Estimate Normal Hypochromasia (manual) Slight Poikilocytosis (manual Slight Anisocytosis (manual) Slight Microcytosis (manual) Slight Ovalocytes Slight PT 32.3 H* INR 2.8 APTT 42 H Sodium 137 Potassium 3.5 L Chloride 93 L Carbon Dioxide 33 H Anion Gap 15 BUN 16 Creatinine 1.1 Est GFR ( Amer) > 60 Est GFR (Non-Af Amer) > 60 POC Glucose (mg/dL) Random Glucose 153 H Calcium 8.9 Total Bilirubin 0.4 AST 22 ALT 25 Alkaline Phosphatase 182 H Troponin I < 0.0120 NT-Pro-B Natriuret Pep 668 Total Protein 7.4 Albumin 3.3 L Globulin 4.1 H Albumin/Globulin Ratio 0.8 L 08/30/17 08/31/17 08/31/17 23:17 07:04 12:36 WBC RBC Hgb Hct MCV MCH MCHC RDW Plt Count MPV Neut % (Auto) Lymph % (Auto) Shoshone % (Auto) Eos % (Auto) Baso % (Auto) Neut # Lymph # Shoshone # Eos # Baso # Neutrophils % (Manual) Lymphocytes % (Manual) Monocytes % (Manual) Eosinophils % (Manual) Platelet Estimate Hypochromasia (manual) Poikilocytosis (manual Anisocytosis (manual) Microcytosis (manual) Ovalocytes PT INR APTT Sodium Potassium Chloride Carbon Dioxide Anion Gap BUN Creatinine Est GFR ( Amer) Est GFR (Non-Af Amer) POC Glucose (mg/dL) 116 H 108 132 H Random Glucose Calcium Total Bilirubin AST ALT Alkaline Phosphatase Troponin I NT-Pro-B Natriuret Pep Total Protein Albumin Globulin Albumin/Globulin Ratio 08/31/17 16:16 WBC RBC Hgb Hct MCV MCH MCHC RDW Plt Count MPV Neut % (Auto) Lymph % (Auto) Shoshone % (Auto) Eos % (Auto) Baso % (Auto) Neut # Lymph # [place]oshone # Eos # Baso # Neutrophils % (Manual) Lymphocytes % (Manual) Monocytes % (Manual) Eosinophils % (Manual) Platelet Estimate Hypochromasia (manual) Poikilocytosis (manual Anisocytosis (manual) Microcytosis (manual) Ovalocytes PT INR APTT Sodium Potassium Chloride Carbon Dioxide Anion Gap BUN Creatinine Est GFR ( Amer) Est GFR (Non-Af Amer) POC Glucose (mg/dL) 125 H Random Glucose Calcium Total Bilirubin AST ALT Alkaline Phosphatase Troponin I NT-Pro-B Natriuret Pep Total Protein Albumin Globulin Albumin/Globulin Ratio Assessment & Plan - Assessment and Plan (Free Text) Assessment: 57 y/o male with bilateral venous stasis ulcerations Plan: Patient seen and evaluated at bedside with attending Dr. Laguna Charts, labs and vitals reviewed Wound culture of left leg taken ID on board (Dr. Antonio) Wound dressed with xeroform, gauze, ABD, aide. Podiatry will continue to follow while in house - Date & Time Date: 08/31/17 Time: 11:45 <Casey Laguna - Last Filed: 09/01/17 09:24> Meds - Medications Medications: Current Medications Betamethasone/Clotrimazole (Lotrisone) 0 gm TOP BID [facility] Last Admin: 08/31/17 19:09 Dose: Not Given Docusate Sodium (Colace) 100 mg PO BID PRN PRN Reason: Constipation Furosemide (Lasix) 80 mg PO BID [facility] Last Admin: 08/31/17 17:45 Dose: 80 mg Hydralazine HCl (Apresoline) 25 mg PO Q8 [facility] Last Admin: 09/01/17 06:09 Dose: 25 mg Piperacillin Sod/Tazobactam Sod (Zosyn 3.375 Gm Iv Premix) 3.375 gm in 50 mls @ 100 mls/hr IVPB Q6H [facility] Last Admin: 09/01/17 05:06 Dose: 100 mls/hr Vancomycin/Sodium Chloride (Vancocin) 1 gm in 200 mls @ 133.333 mls/hr IVPB Q12H [facility] Stop: 09/05/17 07:01 Last Admin: 09/01/17 06:10 Dose: 133.333 mls/hr Insulin Human Regular (Novolin R) 0 unit SC ACHS [facility] PRN Reason: Protocol Last Admin: 09/01/17 07:48 Dose: Not Given Levothyroxine Sodium (Synthroid) 75 mcg PO DAILY@0630 [facility] Last Admin: 09/01/17 06:09 Dose: 75 mcg Metformin HCl (Glucophage) 1,000 mg PO BID [facility] Last Admin: 08/31/17 17:45 Dose: 1,000 mg Montelukast Sodium (Singulair) 10 mg PO HS [facility] Last Admin: 08/31/17 21:45 Dose: 10 mg Oxycodone HCl (Oxycodone Immediate Release Tab) 15 mg PO QID [facility] Last Admin: 08/31/17 21:45 Dose: 15 mg Oxycodone HCl (Oxycontin Extended Release Tab) 80 mg PO Q8 [facility] Last Admin: 09/01/17 06:09 Dose: 80 mg Pantoprazole Sodium (Protonix Ec Tab) 40 mg PO DAILY [facility] Last Admin: 08/31/17 10:45 Dose: 40 mg Potassium Chloride (K-Dur 20 Meq Er Tab) 20 meq PO BID [facility] Last Admin: 08/31/17 17:45 Dose: 20 meq Fluticasone/Salmeterol (Advair Diskus 250/50) 1 puff IH RBID [facility] Last Admin: 08/31/17 20:48 Dose: Not Given Trazodone HCl (Desyrel) 50 mg PO HS [facility] Last Admin: 08/31/17 21:52 Dose: Not Given Warfarin Sodium (Coumadin) 5 mg PO 1800 [facility] Zolpidem Tartrate (Ambien) 5 mg PO HS PRN PRN Reason: Insomnia Last Admin: 08/31/17 22:36 Dose: 5 mg Results - Vital Signs Recent Vital Signs: Last Vital Signs Temp 98.0 F 09/01/17 08:00 Pulse 73 09/01/17 08:00 Resp 20 09/01/17 08:00 BP 160/93 H 09/01/17 08:00 Pulse Ox 97 09/01/17 08:00 - Labs Result Diagrams: 09/01/17 06:14 09/01/17 06:14 Labs: Laboratory Results - last 24 hr 08/31/17 08/31/17 08/31/17 12:36 16:16 21:46 WBC RBC Hgb Hct MCV MCH MCHC RDW Plt Count MPV Neut % (Auto) Lymph % (Auto) [place]oshone % (Auto) Eos % (Auto) Baso % (Auto) Neut # Lymph # [place]oshone # Eos # Baso # Sodium Potassium Chloride Carbon Dioxide Anion Gap BUN Creatinine Est GFR ( Amer) Est GFR (Non-Af Amer) POC Glucose (mg/dL) 132 H 125 H 164 H Random Glucose Calcium 09/01/17 09/01/17 09/01/17 06:14 06:14 06:36 WBC 7.0 RBC 3.87 L Hgb 10.5 L Hct 31.4 L MCV 81.1 MCH 27.2 MCHC 33.5 RDW 14.4 Plt Count 268 MPV 9.0 Neut % (Auto) 67.1 Lymph % (Auto) 20.1 [place]one % (Auto) 7.9 Eos % (Auto) 4.0 Baso % (Auto) 0.9 Neut # 4.7 Lymph # 1.4 Shoshone # 0.6 Eos # 0.3 Baso # 0.1 Sodium 139 Potassium 3.6 Chloride 91 L Carbon Dioxide 34 H Anion Gap 18 BUN 17 Creatinine 1.1 Est GFR ( Amer) > 60 Est GFR (Non-Af Amer) > 60 POC Glucose (mg/dL) 103 Random Glucose 102 Calcium 9.2 Assessment & Plan - Assessment and Plan (Free Text) Plan: Pt seen and examined at bedside with resident . Chart and labs reviewed . Agree with above findings .
[2017-08-31] MEDS: Clotrimazole/Betamethasone Cream(15 gm) TOP SCH (19:09)
[2017-08-31] MEDS: Fluticasone-Salmeterol 250-50mcg Diskus IH SCH (20:48)
--- NOTE | 2017-08-31 22:39 | CP.PCM.PN ---
Subjective - Date & Time of Evaluation Date of Evaluation: 08/31/17 Time of Evaluation: 21:00 - Subjective Subjective: Patient seen and evaluated at bedside Charts, labs and vitals reviewed Wound culture of left leg taken ID on board (Dr. Antonio) Wound dressed with xeroform, gauze, ABD, aide. Podiatry will continue to follow while in house Objective - Vital Signs/Intake and Output Vital Signs (last 24 hours): Temp Pulse Resp BP Pulse Ox 97.6 F 65 20 133/71 95 08/31/17 15:29 08/31/17 15:29 08/31/17 15:29 08/31/17 17:45 08/31/17 15:29 Intake and Output: 08/31/17 09/01/17 18:59 06:59 Intake Total 350 Output Total 600 Balance -250 - Medications Medications: Current Medications Betamethasone/Clotrimazole (Lotrisone) 0 gm TOP BID [facility] Last Admin: 08/31/17 19:09 Dose: Not Given Docusate Sodium (Colace) 100 mg PO BID PRN PRN Reason: Constipation Furosemide (Lasix) 80 mg PO BID [facility] Last Admin: 08/31/17 17:45 Dose: 80 mg Hydralazine HCl (Apresoline) 25 mg PO Q8 [facility] Last Admin: 08/31/17 21:45 Dose: 25 mg Piperacillin Sod/Tazobactam Sod (Zosyn 3.375 Gm Iv Premix) 3.375 gm in 50 mls @ 100 mls/hr IVPB Q6H [facility] Last Admin: 08/31/17 17:46 Dose: 100 mls/hr Vancomycin/Sodium Chloride (Vancocin) 1 gm in 200 mls @ 133.333 mls/hr IVPB Q12H [facility] Stop: 09/05/17 07:01 Last Admin: 08/31/17 19:09 Dose: 133.333 mls/hr Insulin Human Regular (Novolin R) 0 unit SC ACHS [facility] PRN Reason: Protocol Last Admin: 08/31/17 21:46 Dose: Not Given Levothyroxine Sodium (Synthroid) 75 mcg PO DAILY@0630 [facility] Last Admin: 08/31/17 05:58 Dose: 75 mcg Metformin HCl (Glucophage) 1,000 mg PO BID [facility] Last Admin: 08/31/17 17:45 Dose: 1,000 mg Montelukast Sodium (Singulair) 10 mg PO HS [facility] Last Admin: 08/31/17 21:45 Dose: 10 mg Oxycodone HCl (Oxycodone Immediate Release Tab) 15 mg PO QID [facility] Last Admin: 08/31/17 21:45 Dose: 15 mg Oxycodone HCl (Oxycontin Extended Release Tab) 80 mg PO Q8 [facility] Last Admin: 08/31/17 21:45 Dose: 80 mg Pantoprazole Sodium (Protonix Ec Tab) 40 mg PO DAILY [facility] Last Admin: 08/31/17 10:45 Dose: 40 mg Potassium Chloride (K-Dur 20 Meq Er Tab) 20 meq PO BID [facility] Last Admin: 08/31/17 17:45 Dose: 20 meq Fluticasone/Salmeterol (Advair Diskus 250/50) 1 puff IH RBID [facility] Last Admin: 08/31/17 20:48 Dose: Not Given Trazodone HCl (Desyrel) 50 mg PO HS [facility] Last Admin: 08/31/17 21:52 Dose: Not Given Warfarin Sodium (Coumadin) 5 mg PO 1800 [facility] Zolpidem Tartrate (Ambien) 5 mg PO HS PRN PRN Reason: Insomnia Last Admin: 08/31/17 22:36 Dose: 5 mg - Labs Labs: 08/30/17 18:50 08/30/17 18:50 PT 32.3 SECONDS (9.7-12.2) H* 08/30/17 19:25 INR 2.8 08/30/17 19:25 APTT 42 SECONDS (21-34) H 08/30/17 19:25 - Constitutional Appears: No Acute Distress - Head Exam Head Exam: ATRAUMATIC, NORMAL INSPECTION, NORMOCEPHALIC - Eye Exam Eye Exam: EOMI, Normal appearance, PERRL Pupil Exam: NORMAL ACCOMODATION, PERRL - Respiratory Exam Respiratory Exam: Decreased Breath Sounds, Rhonchi, Wheezes - Cardiovascular Exam Cardiovascular Exam: REGULAR RHYTHM, +S1, +S2. absent: Murmur - GI/Abdominal Exam GI & Abdominal Exam: Soft, Normal Bowel Sounds. 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
[2017-09-01] MEDS: Piperacill/Tazo 3.375gm in Dex 3.375 GM/50 ML BAG IVPB SCH ×4 (05:06→23:53)
[2017-09-01] MEDS: Levothyroxine 75 MCG TAB PO SCH (06:09)
[2017-09-01] MEDS: oxyCODONE 80 mg ER Tab (oxyCONTIN) PO SCH ×3 (06:09→21:39)
[2017-09-01] MEDS: Vancomycin 1 gm/NS 200 ml 1 GM/200 ML BAG IVPB SCH ×2 (06:10→21:01)
[2017-09-01 06:25] LABS: BASO # 0.1 K/uL (0.0-0.2); BASO % 0.9 % (0.0-2.0); EOS # 0.3 K/uL (0.0-0.7); HEMATOCRIT 31.4 % (35.0-51.0); LYMPH # 1.4 K/uL (1.0-4.3); LYMPH % 20.1 % (20.0-40.0); MEAN CELL VOLUME 81.1 fL (80.0-94.0); MEAN CORPUSCULAR HEMOGLOBIN 27.2 pg (27.0-31.0); MEAN CORPUSCULAR HGB CONC 33.5 g/dL (33.0-37.0); MONO # 0.6 K/uL (0.0-0.8); MONO % 7.9 % (0.0-10.0); RED CELL DISTRIBUTION WIDTH 14.4 % (11.5-14.5)
[2017-09-01 06:34] LABS: CHLORIDE 91 mmol/L (98-107); SODIUM 139 mmol/L (132-148)
[2017-09-01 06:35] LABS: POTASSIUM 3.6 mmol/L (3.6-5.2)
[2017-09-01 06:37] LABS: GFR AFRICAN-AMERICAN > 60
[2017-09-01 06:38] LABS: BLOOD UREA NITROGEN 17 mg/dL (9-20); CALCIUM 9.2 mg/dl (8.6-10.4); CARBON DIOXIDE 34 mmol/L (22-30); GLUCOSE,RANDOM 102 mg/dL (75-110)
[2017-09-01] MEDS: (Novolin R) Insulin Human Regular 100 units/ml vial SC SCH ×4 (07:48→23:33)
[2017-09-01] MEDS: Fluticasone-Salmeterol 250-50mcg Diskus IH SCH ×2 (08:25→19:21)
[2017-09-01] MEDS: Pantoprazole 40 mg EC Tab PO SCH (09:58)
[2017-09-01] MEDS: Potassium Chloride 20 mEq ER Tab PO SCH ×2 (09:58→18:16)
[2017-09-01] MEDS: oxyCODONE 5 mg Immediate Release Tab PO SCH ×4 (09:59→21:40)
[2017-09-01] MEDS: Clotrimazole/Betamethasone Cream(15 gm) TOP SCH ×2 (10:00→18:22)
--- NOTE | 2017-09-01 12:23 | CP.PCM.PN ---
Subjective - Date & Time of Evaluation Date of Evaluation: 09/01/17 Time of Evaluation: 08:00 - Subjective Subjective: CULTURES SO FAR NEG IV RX IN PROGRESS AWAIT REPORTS MAY NEED OR DEBRIDEMENT Objective - Vital Signs/Intake and Output Vital Signs (last 24 hours): Temp Pulse Resp BP Pulse Ox 98.0 F 86 20 160/93 H 95 09/01/17 08:00 09/01/17 11:24 09/01/17 08:00 09/01/17 09:58 09/01/17 11:24 Intake and Output: 09/01/17 09/01/17 06:59 18:59 Output Total 400 Balance -400 - Medications Medications: Current Medications Betamethasone/Clotrimazole (Lotrisone) 0 gm TOP BID [facility] Last Admin: 09/01/17 10:00 Dose: Not Given Docusate Sodium (Colace) 100 mg PO BID PRN PRN Reason: Constipation Furosemide (Lasix) 80 mg PO BID [facility] Last Admin: 09/01/17 09:58 Dose: 80 mg Hydralazine HCl (Apresoline) 25 mg PO Q8 [facility] Last Admin: 09/01/17 06:09 Dose: 25 mg Piperacillin Sod/Tazobactam Sod (Zosyn 3.375 Gm Iv Premix) 3.375 gm in 50 mls @ 100 mls/hr IVPB Q6H [facility] Last Admin: 09/01/17 05:06 Dose: 100 mls/hr Vancomycin/Sodium Chloride (Vancocin) 1 gm in 200 mls @ 133.333 mls/hr IVPB Q12H [facility] Stop: 09/05/17 07:01 Last Admin: 09/01/17 06:10 Dose: 133.333 mls/hr Insulin Human Regular (Novolin R) 0 unit SC ACHS [facility] PRN Reason: Protocol Last Admin: 09/01/17 07:48 Dose: Not Given Levothyroxine Sodium (Synthroid) 75 mcg PO DAILY@0630 [facility] Last Admin: 09/01/17 06:09 Dose: 75 mcg Metformin HCl (Glucophage) 1,000 mg PO BID [facility] Last Admin: 09/01/17 09:58 Dose: 1,000 mg Montelukast Sodium (Singulair) 10 mg PO HS [facility] Last Admin: 08/31/17 21:45 Dose: 10 mg Oxycodone HCl (Oxycodone Immediate Release Tab) 15 mg PO QID [facility] Last Admin: 09/01/17 09:59 Dose: 15 mg Oxycodone HCl (Oxycontin Extended Release Tab) 80 mg PO Q8 [facility] Last Admin: 09/01/17 06:09 Dose: 80 mg Pantoprazole Sodium (Protonix Ec Tab) 40 mg PO DAILY [facility] Last Admin: 09/01/17 09:58 Dose: 40 mg Potassium Chloride (K-Dur 20 Meq Er Tab) 20 meq PO BID [facility] Last Admin: 09/01/17 09:58 Dose: 20 meq Fluticasone/Salmeterol (Advair Diskus 250/50) 1 puff IH RBID [facility] Last Admin: 09/01/17 08:25 Dose: Not Given Trazodone HCl (Desyrel) 50 mg PO HS [facility] Last Admin: 08/31/17 21:52 Dose: Not Given Warfarin Sodium (Coumadin) 5 mg PO 1800 [facility] Zolpidem Tartrate (Ambien) 5 mg PO HS PRN PRN Reason: Insomnia Last Admin: 08/31/17 22:36 Dose: 5 mg - Labs Labs: 09/01/17 06:14 09/01/17 06:14 PT 32.3 SECONDS (9.7-12.2) H* 08/30/17 19:25 INR 2.8 08/30/17 19:25 APTT 42 SECONDS (21-34) H 08/30/17 19:25 - Constitutional Appears: Non-toxic, Chronically Ill - Head Exam Head Exam: NORMOCEPHALIC - Eye Exam Eye Exam: PERRL - ENT Exam ENT Exam: Mucous Membranes Dry, Normal External Ear Exam - Neck Exam Neck Exam: absent: Lymphadenopathy - Respiratory Exam Respiratory Exam: Decreased Breath Sounds, Rhonchi - Cardiovascular Exam Cardiovascular Exam: REGULAR RHYTHM - GI/Abdominal Exam GI & Abdominal Exam: Distended, Soft Assessment and Plan (1) Cellulitis Status: Acute (2) Cellulitis Status: Acute (3) Infected stasis ulcer of left lower extremity Status: Acute
--- NOTE | 2017-09-01 18:07 | CARD ---
APPROVED REPORT EKG Measurement Heart [id number] <Conclusion> Normal sinus rhythm Normal ECG
--- NOTE | 2017-09-01 21:53 | CP.PCM.PN ---
<Yashira Leyva - Last Filed: 09/01/17 21:50> Subjective - Date & Time of Evaluation Date of Evaluation: 09/01/17 Time of Evaluation: 09:40 - Subjective Subjective: 57 year old male seen with Dr. Laguna concerning b/l venous stasis ulcerations and cellulitis. Patient states that he has pain in his legs, controlled by pain medications. He denies any further pedal complaints. Resting comfortably upon arrival. He denies N/V/F/C/CP/SOB Objective - Vital Signs/Intake and Output Vital Signs (last 24 hours): Temp Pulse Resp BP Pulse Ox 97.4 F L 81 20 116/73 97 09/01/17 15:10 09/01/17 15:10 09/01/17 15:10 09/01/17 18:16 09/01/17 15:10 Intake and Output: 09/01/17 09/02/17 18:59 06:59 Intake Total 700 Output Total 600 Balance 100 - Medications Medications: Current Medications Betamethasone/Clotrimazole (Lotrisone) 0 gm TOP BID [facility] Last Admin: 09/01/17 18:22 Dose: Not Given Docusate Sodium (Colace) 100 mg PO BID PRN PRN Reason: Constipation Furosemide (Lasix) 80 mg PO BID [facility] Last Admin: 09/01/17 18:16 Dose: 80 mg Hydralazine HCl (Apresoline) 25 mg PO Q8 [facility] Last Admin: 09/01/17 21:43 Dose: 25 mg Piperacillin Sod/Tazobactam Sod (Zosyn 3.375 Gm Iv Premix) 3.375 gm in 50 mls @ 100 mls/hr IVPB Q6H [facility] Last Admin: 09/01/17 18:16 Dose: 100 mls/hr Vancomycin/Sodium Chloride (Vancocin) 1 gm in 200 mls @ 133.333 mls/hr IVPB Q12H [facility] Stop: 09/05/17 07:01 Last Admin: 09/01/17 21:01 Dose: 133.333 mls/hr Insulin Human Regular (Novolin R) 0 unit SC ACHS [facility] PRN Reason: Protocol Last Admin: 09/01/17 20:52 Dose: Not Given Levothyroxine Sodium (Synthroid) 75 mcg PO DAILY@0630 [facility] Last Admin: 09/01/17 06:09 Dose: 75 mcg Metformin HCl (Glucophage) 1,000 mg PO BID [facility] Last Admin: 09/01/17 18:16 Dose: 1,000 mg Montelukast Sodium (Singulair) 10 mg PO HS [facility] Last Admin: 09/01/17 21:41 Dose: 10 mg Oxycodone HCl (Oxycodone Immediate Release Tab) 15 mg PO QID [facility] Last Admin: 09/01/17 21:40 Dose: 15 mg Oxycodone HCl (Oxycontin Extended Release Tab) 80 mg PO Q8 [facility] Last Admin: 09/01/17 21:39 Dose: 80 mg Pantoprazole Sodium (Protonix Ec Tab) 40 mg PO DAILY [facility] Last Admin: 09/01/17 09:58 Dose: 40 mg Potassium Chloride (K-Dur 20 Meq Er Tab) 20 meq PO BID [facility] Last Admin: 09/01/17 18:16 Dose: 20 meq Fluticasone/Salmeterol (Advair Diskus 250/50) 1 puff IH RBID [facility] Last Admin: 09/01/17 19:21 Dose: Not Given Trazodone HCl (Desyrel) 50 mg PO HS [facility] Last Admin: 09/01/17 21:39 Dose: 50 mg Zolpidem Tartrate (Ambien) 5 mg PO HS PRN PRN Reason: Insomnia Last Admin: 08/31/17 22:36 Dose: 5 mg - Labs Labs: 09/01/17 06:14 09/01/17 06:14 PT 23.2 SECONDS (9.7-12.2) H D 09/01/17 14:09 INR 2.0 D 09/01/17 14:09 APTT 42 SECONDS (21-34) H 08/30/17 19:25 - Constitutional Appears: Well, Non-toxic, No Acute Distress - Extremities Exam Additional comments: LE focused exam: Derm: Localized erythema to bilateral mid-calves extending circumfrentially. Cellulitis localized along superficial ulcerations. Left: Diffuse open venous stasis ulcerations spanning the anterior and lateral aspects of mid-leg with significant amount of active sanguinous drainage noted to proximal lateral ulcerations. Wounds have a granular base with actively bleeding tissue. Malodor noted upon dressing change. No probe to bone, no purulence, no undermining. Right: Venous stasis ulceration to anterior distal 1/3 of leg measuring approximately 2.5cm x 1.8cm x 0.1cm with granular base, mild amount of serous drainage, no active bleeding, no undermining, no tracking, no probe to bone. Superficial ulceration with no active drainage noted to medial aspect of right leg with granular base, no purulence. Vasc: Non-palpable pedal pulses due to edema B/L. TG warm to warm, CFT < 3 sec to all digits, +1 pitting edema to B/L legs. Neuro: protective sensation grossly diminished MSK: significant tenderness on palpation to b/l LE L>R Assessment and Plan - Assessment and Plan (Free Text) Assessment: 57 y/o male with bilateral venous stasis ulcerations Plan: Patient seen and evaluated at bedside with attending Dr. Laguna. Charts, labs and vitals reviewed, afebrile absent leukocytosis. Wound culture of left leg- pending. IV abx per ID (Dr. Antonio) Wound dressed with xeroform, gauze, ABD, aide. Podiatry will continue to follow while in house. <Casey Laguna - Last Filed: 09/02/17 10:27> Objective - Vital Signs/Intake and Output Vital Signs (last 24 hours): Temp Pulse Resp BP Pulse Ox 97.7 F 73 20 123/81 97 09/02/17 07:35 09/02/17 07:35 09/02/17 07:35 09/02/17 07:35 09/02/17 07:35 Intake and Output: 09/02/17 09/02/17 06:59 18:59 Intake Total 730 Output Total 400 Balance 330 - Medications Medications: Current Medications Betamethasone/Clotrimazole (Lotrisone) 0 gm TOP BID [facility] Last Admin: 09/01/17 18:22 Dose: Not Given Docusate Sodium (Colace) 100 mg PO BID PRN PRN Reason: Constipation Furosemide (Lasix) 80 mg PO BID [facility] Last Admin: 09/01/17 18:16 Dose: 80 mg Hydralazine HCl (Apresoline) 25 mg PO Q8 [facility] Last Admin: 09/02/17 05:18 Dose: 25 mg Piperacillin Sod/Tazobactam Sod (Zosyn 3.375 Gm Iv Premix) 3.375 gm in 50 mls @ 100 mls/hr IVPB Q6H [facility] Last Admin: 09/02/17 05:20 Dose: 100 mls/hr Vancomycin/Sodium Chloride (Vancocin) 1 gm in 200 mls @ 133.333 mls/hr IVPB Q12H [facility] Stop: 09/05/17 07:01 Last Admin: 09/02/17 06:10 Dose: 133.333 mls/hr Insulin Human Regular (Novolin R) 0 unit SC ACHS [facility] PRN Reason: Protocol Last Admin: 09/02/17 07:45 Dose: Not Given Levothyroxine Sodium (Synthroid) 75 mcg PO DAILY@0630 [facility] Last Admin: 09/02/17 05:30 Dose: 75 mcg Metformin HCl (Glucophage) 1,000 mg PO BID [facility] Last Admin: 09/01/17 18:16 Dose: 1,000 mg Montelukast Sodium (Singulair) 10 mg PO HS [facility] Last Admin: 09/01/17 21:41 Dose: 10 mg Oxycodone HCl (Oxycodone Immediate Release Tab) 15 mg PO QID [facility] Last Admin: 09/02/17 09:06 Dose: 15 mg Oxycodone HCl (Oxycontin Extended Release Tab) 80 mg PO Q8 [facility] Last Admin: 09/02/17 05:17 Dose: 80 mg Pantoprazole Sodium (Protonix Ec Tab) 40 mg PO DAILY [facility] Last Admin: 09/01/17 09:58 Dose: 40 mg Potassium Chloride (K-Dur 20 Meq Er Tab) 20 meq PO BID [facility] Last Admin: 09/01/17 18:16 Dose: 20 meq Fluticasone/Salmeterol (Advair Diskus 250/50) 1 puff IH RBID [facility] Last Admin: 09/02/17 07:21 Dose: Not Given Trazodone HCl (Desyrel) 50 mg PO HS [facility] Last Admin: 09/01/17 21:39 Dose: 50 mg Zolpidem Tartrate (Ambien) 5 mg PO HS PRN PRN Reason: Insomnia Last Admin: 09/02/17 01:28 Dose: 5 mg - Labs Labs: 09/01/17 06:14 09/01/17 06:14 PT 23.2 SECONDS (9.7-12.2) H D 09/01/17 14:09 INR 2.0 D 09/01/17 14:09 APTT 42 SECONDS (21-34) H 08/30/17 19:25 Assessment and Plan - Assessment and Plan (Free Text) Plan: Pt was seen at bedside and evaluated .Chart and labs evaluted today . Wounds were somewhat improved though left side is extensive .Right side has eschar which is sloughing with autolytic debridement with xeroform gauze .Overall less pain today noted . Continue same wound care and antibiotics as per . DR. LAGUNA
--- NOTE | 2017-09-01 22:18 | CP.PCM.PN ---
Subjective - Date & Time of Evaluation Date of Evaluation: 09/01/17 Time of Evaluation: 08:35 - Subjective Subjective: Pt seen and examined, has b/l leg wounds,c/o lot of pain, on antibiotics. denies any nausea, vomitting Objective - Vital Signs/Intake and Output Vital Signs (last 24 hours): Temp Pulse Resp BP Pulse Ox 97.4 F L 81 20 116/73 97 09/01/17 15:10 09/01/17 15:10 09/01/17 15:10 09/01/17 18:16 09/01/17 15:10 Intake and Output: 09/01/17 09/02/17 18:59 06:59 Intake Total 700 Output Total 600 Balance 100 - Medications Medications: Current Medications Betamethasone/Clotrimazole (Lotrisone) 0 gm TOP BID [facility] Last Admin: 09/01/17 18:22 Dose: Not Given Docusate Sodium (Colace) 100 mg PO BID PRN PRN Reason: Constipation Furosemide (Lasix) 80 mg PO BID [facility] Last Admin: 09/01/17 18:16 Dose: 80 mg Hydralazine HCl (Apresoline) 25 mg PO Q8 [facility] Last Admin: 09/01/17 21:43 Dose: 25 mg Piperacillin Sod/Tazobactam Sod (Zosyn 3.375 Gm Iv Premix) 3.375 gm in 50 mls @ 100 mls/hr IVPB Q6H [facility] Last Admin: 09/01/17 18:16 Dose: 100 mls/hr Vancomycin/Sodium Chloride (Vancocin) 1 gm in 200 mls @ 133.333 mls/hr IVPB Q12H [facility] Stop: 09/05/17 07:01 Last Admin: 09/01/17 21:01 Dose: 133.333 mls/hr Insulin Human Regular (Novolin R) 0 unit SC ACHS [facility] PRN Reason: Protocol Last Admin: 09/01/17 20:52 Dose: Not Given Levothyroxine Sodium (Synthroid) 75 mcg PO DAILY@0630 [facility] Last Admin: 09/01/17 06:09 Dose: 75 mcg Metformin HCl (Glucophage) 1,000 mg PO BID [facility] Last Admin: 09/01/17 18:16 Dose: 1,000 mg Montelukast Sodium (Singulair) 10 mg PO HS [facility] Last Admin: 09/01/17 21:41 Dose: 10 mg Oxycodone HCl (Oxycodone Immediate Release Tab) 15 mg PO QID [facility] Last Admin: 09/01/17 21:40 Dose: 15 mg Oxycodone HCl (Oxycontin Extended Release Tab) 80 mg PO Q8 [facility] Last Admin: 09/01/17 21:39 Dose: 80 mg Pantoprazole Sodium (Protonix Ec Tab) 40 mg PO DAILY [facility] Last Admin: 09/01/17 09:58 Dose: 40 mg Potassium Chloride (K-Dur 20 Meq Er Tab) 20 meq PO BID [facility] Last Admin: 09/01/17 18:16 Dose: 20 meq Fluticasone/Salmeterol (Advair Diskus 250/50) 1 puff IH RBID [facility] Last Admin: 09/01/17 19:21 Dose: Not Given Trazodone HCl (Desyrel) 50 mg PO HS [facility] Last Admin: 09/01/17 21:39 Dose: 50 mg Zolpidem Tartrate (Ambien) 5 mg PO HS PRN PRN Reason: Insomnia Last Admin: 08/31/17 22:36 Dose: 5 mg - Labs Labs: 09/01/17 06:14 09/01/17 06:14 PT 23.2 SECONDS (9.7-12.2) H D 09/01/17 14:09 INR 2.0 D 09/01/17 14:09 APTT 42 SECONDS (21-34) H 08/30/17 19:25 - Constitutional Appears: No Acute Distress - Head Exam Head Exam: ATRAUMATIC, NORMAL INSPECTION, NORMOCEPHALIC - Eye Exam Eye Exam: EOMI, Normal appearance, PERRL Pupil Exam: NORMAL ACCOMODATION, PERRL - Respiratory Exam Respiratory Exam: Clear to Ausculation Bilateral, NORMAL BREATHING PATTERN - Cardiovascular Exam Cardiovascular Exam: REGULAR RHYTHM, +S1, +S2, Murmur Additional comments: 2/6 ESM - GI/Abdominal Exam GI & Abdominal Exam: Soft, Normal Bowel Sounds. absent: Tenderness - Extremities Exam Extremities Exam: Pedal Edema Additional comments: Derm: Localized erythema to bilateral mid-calves extending circumfrentially. Cellulitis localized along superficial ulcerations. Left: Diffuse open venous stasis ulcerations spanning the anterior and lateral aspects of mid-leg with significant amount of active sanguinous drainage noted to proximal lateral ulcerations. Wounds have a granular base with actively bleeding tissue. Malodor noted upon dressing change. No probe to bone, no purulence, no undermining. Right: Venous stasis ulceration to anterior distal 1/3 of leg measuring approximately 2.5cm x 1.8cm x 0.1cm with granular base, mild amount of serous drainage, no active bleeding, no undermining, no tracking, no probe to bone. Superficial ulceration with no active drainage noted to medial aspect of right leg with granular base, no purulence. Vasc: Non-palpable pedal pulses due to edema B/L. TG warm to warm, CFT < 3 sec to all digits, +1 pitting edema to B/L legs. Neuro: protective sensation grossly diminished MSK: significant tenderness on palpation to b/l LE L>R - Neurological Exam Neurological Exam: Alert, Awake, CN II-XII Intact, Normal Gait, Oriented x3 Assessment and Plan (1) Cellulitis Assessment & Plan: MRSA POsitive on wound care antibiotics (vancomycin) Status: Acute (2) Altered mental status Status: Acute (3) Decubitus ulcer Status: Acute (4) ANTONIA (generalized anxiety disorder) Status: Acute (5) Morbid obesity Status: Acute (6) Type 2 diabetes mellitus Status: Acute - Assessment and Plan (Free Text) Assessment: Assessment: 57 y/o male with bilateral venous stasis ulcerations Plan: Patient seen and evaluated at bedside Charts, labs and vitals reviewed, afebrile absent leukocytosis. Wound culture of left leg- pending. IV abx per ID (Dr. Antonio) Wound dressed with xeroform, gauze, ABD, aide. Podiatry follow up
[2017-09-02] MEDS: oxyCODONE 80 mg ER Tab (oxyCONTIN) PO SCH ×3 (05:17→21:53)
[2017-09-02] MEDS: Piperacill/Tazo 3.375gm in Dex 3.375 GM/50 ML BAG IVPB SCH ×3 (05:20→17:46)
[2017-09-02] MEDS: Levothyroxine 75 MCG TAB PO SCH (05:30)
[2017-09-02] MEDS: Vancomycin 1 gm/NS 200 ml 1 GM/200 ML BAG IVPB SCH ×2 (06:10→19:16)
--- NOTE | 2017-09-02 07:01 | CP.PCM.PN ---
Subjective - Date & Time of Evaluation Date of Evaluation: 09/02/17 Time of Evaluation: 08:30 - Subjective Subjective: 57 year old male seen at bedside concerning b/l venous stasis ulcerations and cellulitis. Patient states that he has pain in his legs, controlled by pain medications. He denies any further pedal complaints. Resting comfortably upon arrival. He denies N/V/F/C/CP/SOB Objective - Vital Signs/Intake and Output Vital Signs (last 24 hours): Temp Pulse Resp BP Pulse Ox 97.4 F L 81 20 127/77 97 09/01/17 23:05 09/01/17 23:05 09/01/17 23:05 09/02/17 06:13 09/01/17 23:05 Intake and Output: 09/02/17 09/02/17 06:59 18:59 Intake Total 730 Output Total 400 Balance 330 - Medications Medications: Current Medications Betamethasone/Clotrimazole (Lotrisone) 0 gm TOP BID [facility] Last Admin: 09/01/17 18:22 Dose: Not Given Docusate Sodium (Colace) 100 mg PO BID PRN PRN Reason: Constipation Furosemide (Lasix) 80 mg PO BID [facility] Last Admin: 09/01/17 18:16 Dose: 80 mg Hydralazine HCl (Apresoline) 25 mg PO Q8 [facility] Last Admin: 09/02/17 05:18 Dose: 25 mg Piperacillin Sod/Tazobactam Sod (Zosyn 3.375 Gm Iv Premix) 3.375 gm in 50 mls @ 100 mls/hr IVPB Q6H [facility] Last Admin: 09/02/17 05:20 Dose: 100 mls/hr Vancomycin/Sodium Chloride (Vancocin) 1 gm in 200 mls @ 133.333 mls/hr IVPB Q12H [facility] Stop: 09/05/17 07:01 Last Admin: 09/02/17 06:10 Dose: 133.333 mls/hr Insulin Human Regular (Novolin R) 0 unit SC ACHS [facility] PRN Reason: Protocol Last Admin: 09/01/17 23:33 Dose: Not Given Levothyroxine Sodium (Synthroid) 75 mcg PO DAILY@0630 [facility] Last Admin: 09/02/17 05:30 Dose: 75 mcg Metformin HCl (Glucophage) 1,000 mg PO BID [facility] Last Admin: 09/01/17 18:16 Dose: 1,000 mg Montelukast Sodium (Singulair) 10 mg PO HS [facility] Last Admin: 09/01/17 21:41 Dose: 10 mg Oxycodone HCl (Oxycodone Immediate Release Tab) 15 mg PO QID [facility] Last Admin: 09/01/17 21:40 Dose: 15 mg Oxycodone HCl (Oxycontin Extended Release Tab) 80 mg PO Q8 [facility] Last Admin: 09/02/17 05:17 Dose: 80 mg Pantoprazole Sodium (Protonix Ec Tab) 40 mg PO DAILY [facility] Last Admin: 09/01/17 09:58 Dose: 40 mg Potassium Chloride (K-Dur 20 Meq Er Tab) 20 meq PO BID [facility] Last Admin: 09/01/17 18:16 Dose: 20 meq Fluticasone/Salmeterol (Advair Diskus 250/50) 1 puff IH RBID [facility] Last Admin: 09/01/17 19:21 Dose: Not Given Trazodone HCl (Desyrel) 50 mg PO HS [facility] Last Admin: 09/01/17 21:39 Dose: 50 mg Zolpidem Tartrate (Ambien) 5 mg PO HS PRN PRN Reason: Insomnia Last Admin: 09/02/17 01:28 Dose: 5 mg - Labs Labs: 09/01/17 06:14 09/01/17 06:14 PT 23.2 SECONDS (9.7-12.2) H D 09/01/17 14:09 INR 2.0 D 09/01/17 14:09 APTT 42 SECONDS (21-34) H 08/30/17 19:25 - Constitutional Appears: Well, Non-toxic, No Acute Distress - Extremities Exam Additional comments: LE focused exam: Derm: Localized erythema to bilateral mid-calves extending circumfrentially. Cellulitis localized along superficial ulcerations. Left: Diffuse open venous stasis ulcerations spanning the anterior and lateral aspects of mid-leg with significant amount of active sanguinous drainage noted to proximal lateral ulcerations. Wounds have a granular base with actively bleeding tissue. Malodor noted upon dressing change. No probe to bone, no purulence, no undermining. Right: Venous stasis ulceration to anterior distal 1/3 of leg measuring approximately 2.5cm x 1.8cm x 0.1cm with granular base, mild amount of serous drainage, no active bleeding, no undermining, no tracking, no probe to bone. Superficial ulceration with no active drainage noted to medial aspect of right leg with granular base, no purulence. Vasc: Non-palpable pedal pulses due to edema B/L. TG warm to warm, CFT < 3 sec to all digits, +1 pitting edema to B/L legs. Neuro: protective sensation grossly diminished MSK: significant tenderness on palpation to b/l LE L>R - Neurological Exam Neurological Exam: Alert, Awake, Oriented x3 - Psychiatric Exam Psychiatric exam: Normal Affect, Normal Mood Assessment and Plan - Assessment and Plan (Free Text) Assessment: 57 y/o male with bilateral venous stasis ulcerations Plan: Patient seen and evaluated at bedside. Discussed with attending Dr. Laguna who endorsed the following plan. Charts, labs and vitals reviewed, afebrile absent leukocytosis. Wound culture of left leg- pending: G(-) rods. IV abx per ID (Dr. Antonio) Wound dressed with xeroform, gauze, ABD, aide. Podiatry will continue to follow while in house.
[2017-09-02] MEDS: Fluticasone-Salmeterol 250-50mcg Diskus IH SCH ×2 (07:21→19:26)
[2017-09-02] MEDS: (Novolin R) Insulin Human Regular 100 units/ml vial SC SCH ×4 (07:45→22:13)
[2017-09-02] MEDS: oxyCODONE 5 mg Immediate Release Tab PO SCH ×4 (09:06→21:53)
[2017-09-02] MEDS: Potassium Chloride 20 mEq ER Tab PO SCH ×2 (10:32→17:41)
[2017-09-02] MEDS: Pantoprazole 40 mg EC Tab PO SCH (10:32)
[2017-09-02] MEDS: Clotrimazole/Betamethasone Cream(15 gm) TOP SCH ×2 (10:33→17:42)
--- NOTE | 2017-09-02 22:54 | CP.PCM.PN ---
Subjective - Date & Time of Evaluation Date of Evaluation: 09/02/17 Time of Evaluation: 21:10 - Subjective Subjective: PT SEEN & EXAMINED AT BEDSIDE Objective - Vital Signs/Intake and Output Vital Signs (last 24 hours): Temp Pulse Resp BP Pulse Ox 98.2 F 105 H 20 102/88 99 09/02/17 16:34 09/02/17 16:34 09/02/17 16:34 09/02/17 17:42 09/02/17 16:34 Intake and Output: 09/02/17 09/03/17 18:59 06:59 Intake Total 450 Output Total 600 Balance -150 - Medications Medications: Current Medications Betamethasone/Clotrimazole (Lotrisone) 0 gm TOP BID [facility] Last Admin: 09/02/17 17:42 Dose: Not Given Docusate Sodium (Colace) 100 mg PO BID PRN PRN Reason: Constipation Furosemide (Lasix) 80 mg PO BID [facility] Last Admin: 09/02/17 17:42 Dose: 80 mg Hydralazine HCl (Apresoline) 25 mg PO Q8 [facility] Last Admin: 09/02/17 21:53 Dose: 25 mg Piperacillin Sod/Tazobactam Sod (Zosyn 3.375 Gm Iv Premix) 3.375 gm in 50 mls @ 100 mls/hr IVPB Q6H [facility] Last Admin: 09/02/17 17:46 Dose: 100 mls/hr Vancomycin/Sodium Chloride (Vancocin) 1 gm in 200 mls @ 133.333 mls/hr IVPB Q12H [facility] Stop: 09/05/17 07:01 Last Admin: 09/02/17 19:16 Dose: 133.333 mls/hr Insulin Human Regular (Novolin R) 0 unit SC ACHS [facility] PRN Reason: Protocol Last Admin: 09/02/17 22:13 Dose: Not Given Levothyroxine Sodium (Synthroid) 75 mcg PO DAILY@0630 [facility] Last Admin: 09/02/17 05:30 Dose: 75 mcg Metformin HCl (Glucophage) 1,000 mg PO BID [facility] Last Admin: 09/02/17 17:42 Dose: 1,000 mg Montelukast Sodium (Singulair) 10 mg PO HS [facility] Last Admin: 09/02/17 21:53 Dose: 10 mg Oxycodone HCl (Oxycodone Immediate Release Tab) 15 mg PO QID [facility] Last Admin: 09/02/17 21:53 Dose: 15 mg Oxycodone HCl (Oxycontin Extended Release Tab) 80 mg PO Q8 [facility] Last Admin: 09/02/17 21:53 Dose: 80 mg Pantoprazole Sodium (Protonix Ec Tab) 40 mg PO DAILY [facility] Last Admin: 09/02/17 10:32 Dose: 40 mg Potassium Chloride (K-Dur 20 Meq Er Tab) 20 meq PO BID [facility] Last Admin: 09/02/17 17:41 Dose: 20 meq Fluticasone/Salmeterol (Advair Diskus 250/50) 1 puff IH RBID [facility] Last Admin: 09/02/17 19:26 Dose: Not Given Trazodone HCl (Desyrel) 50 mg PO HS [facility] Last Admin: 09/02/17 22:13 Dose: Not Given Zolpidem Tartrate (Ambien) 5 mg PO HS PRN PRN Reason: Insomnia Last Admin: 09/02/17 21:53 Dose: 5 mg - Labs Labs: 09/01/17 06:14 09/01/17 06:14 PT 23.3 SECONDS (9.7-12.2) H 09/02/17 13:37 INR 2.0 09/02/17 13:37 APTT 42 SECONDS (21-34) H 08/30/17 19:25 Assessment and Plan (1) Cellulitis Status: Acute (2) Altered mental status Status: Acute (3) Decubitus ulcer Status: Acute (4) ANTONIA (generalized anxiety disorder) Status: Acute (5) Morbid obesity Status: Acute (6) Type 2 diabetes mellitus Status: Acute
[2017-09-03] MEDS: Piperacill/Tazo 3.375gm in Dex 3.375 GM/50 ML BAG IVPB SCH ×4 (00:32→17:35)
[2017-09-03 05:55] LABS: BASO # 0.1 K/uL (0.0-0.2); BASO % 1.2 % (0.0-2.0); EOS # 0.3 K/uL (0.0-0.7); HEMATOCRIT 31.6 % (35.0-51.0); LYMPH # 1.7 K/uL (1.0-4.3); MEAN CELL VOLUME 81.5 fL (80.0-94.0); MEAN CORPUSCULAR HEMOGLOBIN 27.6 pg (27.0-31.0); MEAN CORPUSCULAR HGB CONC 33.8 g/dL (33.0-37.0); MEAN PLATELET VOLUME 8.7 fL (7.2-11.7); MONO # 0.4 K/uL (0.0-0.8); NRBC % 0.1 % (0.0-2.0); RED CELL DISTRIBUTION WIDTH 14.4 % (11.5-14.5); WHITE BLOOD COUNT 7.2 K/uL (4.8-10.8)
[2017-09-03] MEDS: Levothyroxine 75 MCG TAB PO SCH (05:56)
[2017-09-03] MEDS: oxyCODONE 80 mg ER Tab (oxyCONTIN) PO SCH ×2 (05:56→13:10)
[2017-09-03 06:07] LABS: POTASSIUM 4.1 mmol/L (3.6-5.2)
[2017-09-03 06:10] LABS: CALCIUM 9.7 mg/dl (8.6-10.4)
[2017-09-03 06:14] LABS: INR 2.2
[2017-09-03] MEDS: (Novolin R) Insulin Human Regular 100 units/ml vial SC SCH ×3 (07:20→16:53)
[2017-09-03] MEDS: Vancomycin 1 gm/NS 200 ml 1 GM/200 ML BAG IVPB SCH (08:00)
[2017-09-03] MEDS: Fluticasone-Salmeterol 250-50mcg Diskus IH SCH ×2 (09:07→19:09)
[2017-09-03] MEDS: oxyCODONE 5 mg Immediate Release Tab PO SCH ×3 (10:50→17:31)
[2017-09-03] MEDS: Potassium Chloride 20 mEq ER Tab PO SCH ×2 (10:50→17:34)
[2017-09-03] MEDS: Clotrimazole/Betamethasone Cream(15 gm) TOP SCH ×2 (10:50→17:35)
[2017-09-03] MEDS: Pantoprazole 40 mg EC Tab PO SCH (10:51)
--- NOTE | 2017-09-03 13:32 | CP.PCM.PN ---
Subjective - Date & Time of Evaluation Date of Evaluation: 09/03/17 Time of Evaluation: 09:00 - Subjective Subjective: 57 year old male seen at bedside concerning b/l venous stasis ulcerations and cellulitis. Patient states that he has pain in his legs, controlled by pain medications. He denies any further pedal complaints. Resting comfortably upon arrival. He denies N/V/F/C/CP/SOB Objective - Vital Signs/Intake and Output Vital Signs (last 24 hours): Temp Pulse Resp BP Pulse Ox 97.9 F 75 20 110/72 96 09/03/17 07:05 09/03/17 07:05 09/03/17 07:05 09/03/17 10:51 09/03/17 07:05 - Medications Medications: Current Medications Betamethasone/Clotrimazole (Lotrisone) 0 gm TOP BID [facility] Last Admin: 09/02/17 17:42 Dose: Not Given Docusate Sodium (Colace) 100 mg PO BID PRN PRN Reason: Constipation Furosemide (Lasix) 80 mg PO BID [facility] Last Admin: 09/03/17 10:51 Dose: 80 mg Hydralazine HCl (Apresoline) 25 mg PO Q8 [facility] Last Admin: 09/03/17 13:11 Dose: 25 mg Piperacillin Sod/Tazobactam Sod (Zosyn 3.375 Gm Iv Premix) 3.375 gm in 50 mls @ 100 mls/hr IVPB Q6H [facility] Last Admin: 09/03/17 12:56 Dose: 100 mls/hr Vancomycin/Sodium Chloride (Vancocin) 1 gm in 200 mls @ 133.333 mls/hr IVPB Q12H [facility] Stop: 09/05/17 07:01 Last Admin: 09/03/17 08:00 Dose: Not Given Insulin Human Regular (Novolin R) 0 unit SC ACHS [facility] PRN Reason: Protocol Last Admin: 09/03/17 13:09 Dose: 1 unit Levothyroxine Sodium (Synthroid) 75 mcg PO DAILY@0630 [facility] Last Admin: 09/03/17 05:56 Dose: 75 mcg Metformin HCl (Glucophage) 1,000 mg PO BID [facility] Last Admin: 09/03/17 10:51 Dose: 1,000 mg Montelukast Sodium (Singulair) 10 mg PO HS [facility] Last Admin: 09/02/17 21:53 Dose: 10 mg Oxycodone HCl (Oxycodone Immediate Release Tab) 15 mg PO QID [facility] Last Admin: 09/03/17 13:10 Dose: 15 mg Oxycodone HCl (Oxycontin Extended Release Tab) 80 mg PO Q8 [facility] Last Admin: 09/03/17 13:10 Dose: 80 mg Pantoprazole Sodium (Protonix Ec Tab) 40 mg PO DAILY [facility] Last Admin: 09/03/17 10:51 Dose: 40 mg Potassium Chloride (K-Dur 20 Meq Er Tab) 20 meq PO BID [facility] Last Admin: 09/03/17 10:50 Dose: 20 meq Fluticasone/Salmeterol (Advair Diskus 250/50) 1 puff IH RBID [facility] Last Admin: 09/03/17 09:07 Dose: Not Given Trazodone HCl (Desyrel) 50 mg PO HS [facility] Last Admin: 09/02/17 22:13 Dose: Not Given Zolpidem Tartrate (Ambien) 5 mg PO HS PRN PRN Reason: Insomnia Last Admin: 09/02/17 21:53 Dose: 5 mg - Labs Labs: 09/03/17 05:50 09/03/17 05:50 PT 25.4 SECONDS (9.7-12.2) H 09/03/17 05:50 INR 2.2 09/03/17 05:50 APTT 42 SECONDS (21-34) H 08/30/17 19:25 - Constitutional Appears: Well, Non-toxic, No Acute Distress - Extremities Exam Additional comments: LE focused exam: Derm: Localized erythema to bilateral mid-calves extending circumfrentially. Cellulitis localized along superficial ulcerations. Left: Diffuse open venous stasis ulcerations spanning the anterior and lateral aspects of mid-leg with significant amount of active sanguinous drainage noted to proximal lateral ulcerations. Wounds have a granular base with actively bleeding tissue. Malodor noted upon dressing change. No probe to bone, no purulence, no undermining. Right: Venous stasis ulceration to anterior distal 1/3 of leg measuring approximately 2.5cm x 1.8cm x 0.1cm with granular base, mild amount of serous drainage, no active bleeding, no undermining, no tracking, no probe to bone. Superficial ulceration with no active drainage noted to medial aspect of right leg with granular base, no purulence. Vasc: Non-palpable pedal pulses due to edema B/L. TG warm to warm, CFT < 3 sec to all digits, +1 pitting edema to B/L legs. Neuro: protective sensation grossly diminished MSK: significant tenderness on palpation to b/l LE L>R - Neurological Exam Neurological Exam: Alert, Awake, Oriented x3 - Psychiatric Exam Psychiatric exam: Normal Affect Assessment and Plan - Assessment and Plan (Free Text) Assessment: 57 y/o male with bilateral venous stasis ulcerations Plan: Patient seen and evaluated at bedside, with attending Dr. Laguna, present. Charts, labs and vitals reviewed, afebrile absent leukocytosis. Wound culture of left leg: Pseudomonas aeruginosa -Continue IV abx per ID (Dr. Antonio) Also requesting outpatient IV abx recommendation. Wound dressed with xeroform, gauze, ABD, aide. Pt to got to [facility]. Transfer pending. Pt stable form podiatry for discharge. Podiatry will continue to follow while in house.
[2017-09-03 15:45] VITALS: PULSE 67; RESP 18; TEMP 97.7; O2SAT 95
[2017-09-03 17:34] VITALS: BP 122/72
--- NOTE | 2017-09-03 18:56 | CP.PCM.PN ---
Subjective - Date & Time of Evaluation Date of Evaluation: 09/03/17 Time of Evaluation: 08:00 - Subjective Subjective: MDRO from wound sens to cipro coint wound care and cipro for 14-21 days Objective - Vital Signs/Intake and Output Vital Signs (last 24 hours): Temp Pulse Resp BP Pulse Ox 97.7 F 67 18 122/72 95 09/03/17 15:40 09/03/17 15:40 09/03/17 15:40 09/03/17 17:31 09/03/17 15:40 Intake and Output: 09/03/17 09/03/17 06:59 18:59 Output Total 850 Balance -850 - Medications Medications: Current Medications Betamethasone/Clotrimazole (Lotrisone) 0 gm TOP BID [facility] Last Admin: 09/03/17 17:35 Dose: Not Given Docusate Sodium (Colace) 100 mg PO BID PRN PRN Reason: Constipation Furosemide (Lasix) 80 mg PO BID [facility] Last Admin: 09/03/17 17:31 Dose: 80 mg Hydralazine HCl (Apresoline) 25 mg PO Q8 [facility] Last Admin: 09/03/17 13:11 Dose: 25 mg Piperacillin Sod/Tazobactam Sod (Zosyn 3.375 Gm Iv Premix) 3.375 gm in 50 mls @ 100 mls/hr IVPB Q6H [facility] Last Admin: 09/03/17 17:35 Dose: Not Given Vancomycin/Sodium Chloride (Vancocin) 1 gm in 200 mls @ 133.333 mls/hr IVPB Q12H [facility] Stop: 09/05/17 07:01 Last Admin: 09/03/17 08:00 Dose: Not Given Insulin Human Regular (Novolin R) 0 unit SC ACHS [facility] PRN Reason: Protocol Last Admin: 09/03/17 16:53 Dose: Not Given Levothyroxine Sodium (Synthroid) 75 mcg PO DAILY@0630 [facility] Last Admin: 09/03/17 05:56 Dose: 75 mcg Metformin HCl (Glucophage) 1,000 mg PO BID [facility] Last Admin: 09/03/17 17:31 Dose: 1,000 mg Montelukast Sodium (Singulair) 10 mg PO HS [facility] Last Admin: 09/02/17 21:53 Dose: 10 mg Oxycodone HCl (Oxycodone Immediate Release Tab) 15 mg PO QID [facility] Last Admin: 09/03/17 17:31 Dose: 15 mg Oxycodone HCl (Oxycontin Extended Release Tab) 80 mg PO Q8 [facility] Last Admin: 09/03/17 13:10 Dose: 80 mg Pantoprazole Sodium (Protonix Ec Tab) 40 mg PO DAILY [facility] Last Admin: 09/03/17 10:51 Dose: 40 mg Potassium Chloride (K-Dur 20 Meq Er Tab) 20 meq PO BID [facility] Last Admin: 09/03/17 17:34 Dose: 20 meq Fluticasone/Salmeterol (Advair Diskus 250/50) 1 puff IH RBID [facility] Last Admin: 09/03/17 09:07 Dose: Not Given Trazodone HCl (Desyrel) 50 mg PO HS [facility] Last Admin: 09/02/17 22:13 Dose: Not Given Zolpidem Tartrate (Ambien) 5 mg PO HS PRN PRN Reason: Insomnia Last Admin: 09/02/17 21:53 Dose: 5 mg - Labs Labs: 09/03/17 05:50 09/03/17 05:50 PT 25.4 SECONDS (9.7-12.2) H 09/03/17 05:50 INR 2.2 09/03/17 05:50 APTT 42 SECONDS (21-34) H 08/30/17 19:25 - Constitutional Appears: Non-toxic, Chronically Ill - Head Exam Head Exam: NORMOCEPHALIC - Eye Exam Eye Exam: absent: Scleral icterus - ENT Exam ENT Exam: Mucous Membranes Dry - Neck Exam Neck Exam: absent: Lymphadenopathy - Respiratory Exam Respiratory Exam: Decreased Breath Sounds - Cardiovascular Exam Cardiovascular Exam: REGULAR RHYTHM - GI/Abdominal Exam GI & Abdominal Exam: Distended, Soft - Rectal Exam Rectal Exam: Deferred - Exam Exam: NORMAL INSPECTION - Extremities Exam Extremities Exam: Pedal Edema Assessment and Plan (1) Cellulitis Status: Acute (2) Morbid obesity Status: Acute (3) Type 2 diabetes mellitus Status: Acute (4) Acute renal failure (ARF) Status: Acute (5) Altered mental status Status: Acute (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
--- NOTE | 2017-09-04 00:47 | CP.PCM.DIS ---
Provider - Provider Date of Admission: 08/31/17 10:02 Attending physician: Estrada Albright MD Time Spent in preparation of Discharge (in minutes): 56 Diagnosis - Discharge Diagnosis (1) Cellulitis Status: Acute (2) Altered mental status Status: Acute (3) Decubitus ulcer Status: Acute (4) ANTONIA (generalized anxiety disorder) Status: Acute (5) Morbid obesity Status: Acute (6) Type 2 diabetes mellitus Status: Acute Hospital Course - Lab Results Lab Results: Micro Results 08/30/17 18:45 Blood Blood Culture - Preliminary NO GROWTH AFTER 4 DAYS 08/30/17 18:20 Blood Blood Culture - Preliminary NO GROWTH AFTER 4 DAYS 08/31/17 21:09 Leg - Left Gram Stain - Final 08/31/17 21:09 Leg - Left Wound Culture - Final Pseudomonas Aeruginosa Most Recent Lab Values WBC 7.2 K/uL (4.8-10.8) 09/03/17 05:50 RBC 3.88 Mil/uL (4.40-5.90) L 09/03/17 05:50 Hgb 10.7 g/dL (12.0-18.0) L 09/03/17 05:50 Hct 31.6 % (35.0-51.0) L 09/03/17 05:50 MCV 81.5 fL (80.0-94.0) 09/03/17 05:50 MCH 27.6 pg (27.0-31.0) 09/03/17 05:50 MCHC 33.8 g/dL (33.0-37.0) 09/03/17 05:50 RDW 14.4 % (11.5-14.5) 09/03/17 05:50 Plt Count 280 K/uL (130-400) 09/03/17 05:50 MPV 8.7 fL (7.2-11.7) 09/03/17 05:50 Neut % (Auto) 65.8 % (50.0-75.0) 09/03/17 05:50 Lymph % (Auto) 23.0 % (20.0-40.0) 09/03/17 05:50 [place] % (Auto) 6.0 % (0.0-10.0) 09/03/17 05:50 Eos % (Auto) 4.0 % (0.0-4.0) 09/03/17 05:50 Baso % (Auto) 1.2 % (0.0-2.0) 09/03/17 05:50 Neut # 4.7 K/uL (1.8-7.0) 09/03/17 05:50 Lymph # 1.7 K/uL (1.0-4.3) 09/03/17 05:50 [place] # 0.4 K/uL (0.0-0.8) 09/03/17 05:50 Eos # 0.3 K/uL (0.0-0.7) 09/03/17 05:50 Baso # 0.1 K/uL (0.0-0.2) 09/03/17 05:50 Neutrophils % (Manual) 84 % (50-75) H 08/30/17 18:50 Lymphocytes % (Manual) 8 % (20-40) L 08/30/17 18:50 Monocytes % (Manual) 7 % (0-10) 08/30/17 18:50 Eosinophils % (Manual) 1 % (0-4) 08/30/17 18:50 Platelet Estimate Normal (NORMAL) 08/30/17 18:50 Hypochromasia (manual) Slight 08/30/17 18:50 Poikilocytosis (manual Slight 08/30/17 18:50 Anisocytosis (manual) Slight 08/30/17 18:50 Microcytosis (manual) Slight 08/30/17 18:50 Ovalocytes Slight 08/30/17 18:50 PT 25.4 SECONDS (9.7-12.2) H 09/03/17 05:50 INR 2.2 09/03/17 05:50 APTT 42 SECONDS (21-34) H 08/30/17 19:25 Sodium 136 mmol/L (132-148) 09/03/17 05:50 Potassium 4.1 mmol/L (3.6-5.2) 09/03/17 05:50 Chloride 90 mmol/L (98-107) L 09/03/17 05:50 Carbon Dioxide 34 mmol/L (22-30) H 09/03/17 05:50 Anion Gap 16 (10-20) 09/03/17 05:50 BUN 24 mg/dL (9-20) H 09/03/17 05:50 Creatinine 1.7 mg/dL (0.8-1.5) H 09/03/17 05:50 Est GFR ( Amer) 51 09/03/17 05:50 Est GFR (Non-Af Amer) 42 09/03/17 05:50 POC Glucose (mg/dL) 134 mg/dL (65-110) H 09/03/17 16:18 Random Glucose 117 mg/dL (75-110) H 09/03/17 05:50 Calcium 9.7 mg/dl (8.6-10.4) 09/03/17 05:50 Total Bilirubin 0.4 mg/dL (0.2-1.3) 08/30/17 18:50 AST 22 U/L (17-59) 08/30/17 18:50 ALT 25 U/L (21-72) 08/30/17 18:50 Alkaline Phosphatase 182 U/L (38-126) H 08/30/17 18:50 Troponin I < 0.0120 ng/mL (0.00-0.120) 08/30/17 18:50 NT-Pro-B Natriuret Pep 668 pg/mL (0-900) 08/30/17 18:50 Total Protein 7.4 g/dL (6.3-8.3) 08/30/17 18:50 Albumin 3.3 g/dL (3.5-5.0) L 08/30/17 18:50 Globulin 4.1 gm/dL (2.2-3.9) H 08/30/17 18:50 Albumin/Globulin Ratio 0.8 (1.0-2.1) L 08/30/17 18:50 Vancomycin Trough 23.5 ug/mL (5.0-10.0) H 09/03/17 05:50 - Hospital Course Hospital Course: Pt seen and evalauted by me today , is for discharge and transfer back to snf 57 y/o male with bilateral venous stasis ulcerations Plan: Patient seen and evaluated at bedside Charts, labs and vitals reviewed, afebrile absent leukocytosis. Wound culture of left leg: Pseudomonas aeruginosa -Continue IV abx per ID (Dr. Antonio) Also requesting outpatient IV abx recommendation. Wound dressed with xeroform, gauze, ABD, aide. Pt to got to [facility]. Discharge Exam - Head Exam Head Exam: NORMOCEPHALIC - Eye Exam Eye Exam: EOMI, Normal appearance, PERRL Pupil Exam: NORMAL ACCOMODATION, PERRL - ENT Exam ENT Exam: Mucous Membranes Moist - Respiratory Exam Respiratory Exam: Decreased Breath Sounds, Rales, Rhonchi - Cardiovascular Exam Cardiovascular Exam: REGULAR RHYTHM, +S1, +S2 - GI/Abdominal Exam GI & Abdominal Exam: Normal Bowel Sounds Discharge Plan - Discharge Medications Prescriptions: Ciprofloxacin HCl [Cipro] 250 mg PO Q12 #28 tab metFORMIN [glucOPHAGE] 500 mg PO BID #60 tab SITagliptin [Januvia] 50 mg PO DAILY #60 tab Furosemide [Lasix] 40 mg PO BID #60 udc - Follow Up Plan Condition: FAIR Disposition: REHAB FACILITY/REHAB UNIT Instructions: Cellulitis (DC), Diabetes Mellitus Type 2 in Adults (DC), Obesity (DC) Additional Instructions: Please call Dr. Albright upon patient arrival to the facility continue cipro x 14 more days PLEASE DO CBC, BMP , PT/INR THURSDAY AND Q3 DAYS AND CALL DR. ALBRIGHT WITH RESULT CALL DR. CHAVEZ TO SEE PT FOR WOUND CARE CONTINUE MEDICATION PER MED REC.
== END 2017-09-03 20:11 | DRG 300 ==
LOC: C.ER 18:02 → C.9E 18:58 → C.5S 20:35 → OBSVTOIN 08-31 10:02 → C.5S 09-03 08:06
PROVIDERS: ADMIT Internal Medicine; ATTEND Internal Medicine
DX: I87.2 Venous insufficiency (chronic) (peripheral) (principal); L03.116 Cellulitis of left lower limb; E11.22 Type 2 diabetes mellitus with diabetic chronic kidney disease; I13.0 Hypertensive heart and chronic kidney disease with heart failure and stage 1 through stage 4 chronic kidney disease, or unspecified chronic kidney disease; E11.622 Type 2 diabetes mellitus with other skin ulcer; I50.9 Heart failure, unspecified; E66.01 Morbid (severe) obesity due to excess calories; L97.828 Non-pressure chronic ulcer of other part of left lower leg with other specified severity; L97.818 Non-pressure chronic ulcer of other part of right lower leg with other specified severity; E03.9 Hypothyroidism, unspecified; I25.10 Atherosclerotic heart disease of native coronary artery without angina pectoris; E78.00 Pure hypercholesterolemia, unspecified; F06.4 Anxiety disorder due to known physiological condition; G47.30 Sleep apnea, unspecified; B96.5 Pseudomonas (aeruginosa) (mallei) (pseudomallei) as the cause of diseases classified elsewhere; J44.9 Chronic obstructive pulmonary disease, unspecified; L89.90 Pressure ulcer of unspecified site, unspecified stage; N18.9 Chronic kidney disease, unspecified; Z96.653 Presence of artificial knee joint, bilateral; Z86.711 Personal history of pulmonary embolism; Z87.01 Personal history of pneumonia (recurrent)

== ENCOUNTER 2017-09-15 13:05 | Inpatient (IN) | payer MEDICARE, OTHER ==
[2017-09-15 13:05] VITALS: BMI 54.8
[2017-09-15 15:02] LABS: BASO # 0.1 K/uL (0.0-0.2); BASO % 1.5 % (0.0-2.0); EOS # 0.3 K/uL (0.0-0.7); EOS % 4.3 % (0.0-4.0); HEMATOCRIT 33.9 % (35.0-51.0); LYMPH # 1.6 K/uL (1.0-4.3); LYMPH % 21.3 % (20.0-40.0); MEAN CELL VOLUME 81.5 fL (80.0-94.0); MEAN CORPUSCULAR HEMOGLOBIN 27.4 pg (27.0-31.0); MEAN CORPUSCULAR HGB CONC 33.6 g/dL (33.0-37.0); MEAN PLATELET VOLUME 10.4 fL (7.2-11.7); MONO # 0.6 K/uL (0.0-0.8); MONO % 7.8 % (0.0-10.0); NRBC % 0.3 % (0.0-2.0); RED CELL DISTRIBUTION WIDTH 14.9 % (11.5-14.5); WHITE BLOOD COUNT 7.3 K/uL (4.8-10.8)
[2017-09-15 15:11] LABS: INR 1.4
[2017-09-15 15:19] LABS: CHLORIDE 92 mmol/L (98-107); SODIUM 133 mmol/L (132-148)
[2017-09-15 15:21] LABS: BILIRUBIN,TOTAL 0.9 mg/dL (0.2-1.3); GFR AFRICAN-AMERICAN > 60
[2017-09-15 15:22] LABS: ALB/GLOB RATIO 0.8 (1.0-2.1); ALKALINE PHOSPHATASE 186 U/L (38-126); ALT/SGPT 17 U/L (21-72); AST/SGOT 30 U/L (17-59); BLOOD UREA NITROGEN 45 mg/dL (9-20); CALCIUM 9.6 mg/dl (8.6-10.4); CARBON DIOXIDE 32 mmol/L (22-30); GLUCOSE,RANDOM 81 mg/dL (75-110); TOTAL PROTEIN 9.8 g/dL (6.3-8.3)
--- NOTE | 2017-09-15 16:24 | C.PDOC ---
History Of Present Illness 57 year old, with a history of chronic leg ulcers, presents to the ED with complaints of worsening ulcer pain, redness, and drainage to left lower leg. Patient reports he was sent by Dr. Laguna for failed outpatient treatment. He denies fever, weakness, or numbness. Time Seen by Provider: 09/15/17 13:14 Chief Complaint (Nursing): Lower Extremity Problem/Injury History Per: Patient History/Exam Limitations: no limitations Onset/Duration Of Symptoms: Persistent (chronic leg ulcers ) Current Symptoms Are (Timing): Still Present Recent travel outside of the [place]: No Additional History Per: Prior Records (Dr. Laguna ) Past Medical History Reviewed: Historical Data, Nursing Documentation, Vital Signs Vital Signs: Last Vital Signs Temp 97.9 F 09/15/17 17:18 Pulse 80 09/15/17 17:18 Resp 20 09/15/17 17:18 BP 93/59 L 09/15/17 17:18 Pulse Ox 100 09/15/17 17:59 - Medical History PMH: Arthritis, Asthma, Back Problems, CAD, CHF, COPD, Depression, Diabetes, Deep Vein Thrombosis, Fibromyalgia, Fractures, HTN, Hypercholesterolemia, Hyperthyroidism, Hypothyroidism, Peripheral Edema (+3 pitting ble), Pneumonia, Pulmonary Embolism, Chronic Kidney Disease (required HD in 2016 briefly), Sleep Apnea, Chronic Pain Surgical History: - [facility] Procedures ASSISTANCE WITH RESPIRATORY VENTILATION, >96 HRS, CPAP (09/04/16) BATHING/SHOWERING TECHNIQUES TREATMENT (07/29/17) CENTRAL VENOUS CATHETER PLACEMENT WITH GUIDANCE (07/08/15) CLOSED ENDOSCOPIC BIOPSY OF LARGE INTESTINE (03/22/14) CONTIN POS AIRWAY PRESSURE [CPAP] (02/21/07) DERMAL REGENERATIVE GRAFT (06/15/15) DRESSING TECHNIQUES TREATMENT (07/29/17) DX ULTRASOUND-HEART (05/14/06) ENDOSC POLYPECTOMY OF LG INTEST (03/22/14) ENDOSCOPIC BRONCHIAL BX (09/22/04) ESOPHAGOGASTRODUODENOSCOPY [EGD] W/CLOSED BIOPSY (03/22/14) EXCIS DEBRIDE OF WOUND, INFECT, OR BURN (06/15/15) GAIT TRAINING/AMBULAT TREATMENT USING ASSIST EQUIPMENT (07/29/17) HETEROGRAFT TO SKIN (10/29/14) HOME MANAGEMENT TREATMENT (07/29/17) INJECT ANTIBIOTIC (05/29/06) INJECT ANTICOAGULANT (11/17/04) INJECT/INFUSE NEC (03/22/14) INSERTION OF INFUSION DEV INTO SUP VENA CAVA, PERC APPROACH (09/04/16) INSPECTION OF BLADDER, ENDO (06/22/16) INTRODUCE OF OTH THERAP SUBST INTO RESP TRACT, VIA OPENING (04/06/16) NEBULIZER THERAPY (09/18/14) NON-INVASIVE MECHANICAL VENTILATION (08/13/12) NONEXCIS DEBRID OF WOUND, INFECT, OR BURN (10/09/14) OCCUPATIONAL THERAPY (03/17/14) PERFORMANCE OF URINARY FILTRATION, MULTIPLE (09/04/16) PHYSICAL THERAPY NEC (03/17/14) TRANSFUSE NONAUT FROZEN PLASMA IN PERIPH VEIN, PERC (09/04/16) VENOUS CATHETERIZATION NEC (04/25/15) Family History: States: Unknown Family Hx - Social History Hx Tobacco Use: No Hx Alcohol Use: No Hx Substance Use: No - Immunization History Hx Tetanus Toxoid Vaccination: No Hx Influenza Vaccination: Yes Hx Pneumococcal Vaccination: Yes (3 yrs ago) Review Of Systems Constitutional: Negative for: Fever, Chills Cardiovascular: Negative for: Chest Pain Respiratory: Negative for: Shortness of Breath Gastrointestinal: Negative for: Nausea, Vomiting, Abdominal Pain Musculoskeletal: Negative for: Back Pain Skin: Positive for: Other (chronic bilateral leg ulcers ) Physical Exam - Physical Exam Appears: Non-toxic, No Acute Distress Skin: Warm, Dry, No Rash Head: Atraumatic, Normacephalic Eye(s): bilateral: Normal Inspection, PERRL, EOMI Oral Mucosa: Moist Neck: Normal ROM, Supple Chest: Symmetrical, No Deformity Cardiovascular: Rhythm Regular, No Friction Rub, No Murmur Respiratory: No Rales, No Rhonchi, No Wheezing, Other (clear to auscultation bilaterally ) Gastrointestinal/Abdominal: Soft, No Tenderness, No Distention, No Guarding, No Rebound Extremity: Normal ROM, Other (Large ulcer to left leg with drainage. Multiple chronic small ulcers to right leg. ) Pulses: Left Dorsalis Pedis: Normal, Right Dorsalis Pedis: Normal Neurological/Psych: Oriented x3, Normal Motor, Normal Sensation Gait: Steady ED Course And Treatment - Laboratory Results Result Diagrams: 09/15/17 14:58 09/15/17 14:58 O2 Sat by Pulse Oximetry: 100 (RA ) Pulse Ox Interpretation: Normal - Physician Consult Information Time Consulting Physician Contacted: 16:30 Physician Contacted: Estrada Albright Outcome Of Conversation: Case discussed with Dr. Albright and agrees to plan and admission. Medical Decision Making Medical Decision Making: Labs and blood work were ordered. Patient is schedules in the OR tomorrow for a skin graft to be performed by Dr. Laguna. Disposition - Disposition Disposition: HOSPITALIZED Disposition Time: 16:23 Condition: GOOD - POA Present On Arrival: None - Clinical Impression Clinical Impression: Cellulitis, Leg ulcer, left - PA / MANAGING CONSULTANT / Resident Statement MD/DO has reviewed & agrees with the documentation as recorded. - Scribe Statement The provider has reviewed the documentation as recorded by the Scribe Raisa Higgins All medical record entries made by the Kevin were at my direction and personally dictated by me. I have reviewed the chart and agree that the record accurately reflects my personal performance of the history, physical exam, medical decision making, and the department course for this patient. I have also personally directed, reviewed, and agree with the discharge instructions and disposition.
[2017-09-15] MEDS ORDERED: oxyCODONE 40 mg ER Tab (oxyCONTIN) PO PRN ×2 (18:42→19:40)
[2017-09-15] MEDS ORDERED: OXYCODONE HCL 15 MG PO SCH (20:00)
[2017-09-15] MEDS: (Novolin R) Insulin Human Regular 100 units/ml vial SC SCH (22:39)
--- NOTE | 2017-09-15 22:41 | CP.PCM.HP ---
History of Present Illness - History of Present Illness History of Present Illness: CC: b/l calf pain HPI: 57 year old morbidly obese with a history of chronic leg ulcers, OA, chronic low back pain, chronically sick, sleep apnea, HTN, CKD presents to the ED with complaints of worsening ulcer pain, redness, and drainage to left lower leg. Patient reports he was sent by Dr. Laguna for failed outpatient treatment. He denies fever, weakness, or numbness. Pt c/o pain in left leg, back, hips. He is for graft Present on Admission - Present on Admission Any Indicators Present on Admission: No Review of Systems - Review of Systems Systems not reviewed;Unavailable: Acuity of Condition - Constitutional Constitutional: Fatigue, Lethargy, Snoring, Sleep Apnea - EENT Eyes: absent: As Per HPI, Blind Spots, Blurred Vision, Change in Vision, Decreased Night Vision, Diplopia, Discharge, Dry Eye, Exophthalmos, Floaters, Irritation, Itchy Eyes, Loss of Peripheral Vision, Pain, Photophobia, Requires Corrective Lenses, Sees Flashes, Spots in Vision, Tunnel Vision, Other Visual Disturbances, Loss of Vision, Other Ears: absent: As Per HPI, Decreased Hearing, Ear Discharge, Ear Pain, Tinnitus, Abnormal Hearing, Disequilibrium, Dizziness, Other Nose/Mouth/Throat: Nasal Congestion - Cardiovascular Cardiovascular: Dyspnea on Exertion, Leg Edema, Pedal Edema. absent: As Per HPI , Acrocyanosis, Chest Pain, Chest Pain at Rest, Chest Pain with Activity, Claudication, Diaphoresis, Dyspnea, Edema, Irregular Heart Rhythm, Pain Radiating to Arm/Neck/Jaw, Leg Ulcers, Lightheadedness, Orthopnea, Palpitations , Paroxysmal Nocturnal Dyspnea, Radiating Pain, Rapid Heart Rate, Slow Heart Rate, Syncope, Other - Respiratory Respiratory: absent: As Per HPI, Cough, Dyspnea, Hemoptysis, Dyspnea on Exertion , Wheezing, Snoring, Stridor, Pain on Inspiration, Chest Congestion, Excessive Mucous Production, Change in Mucous Color, Pain with Coughing, Other - Gastrointestinal Gastrointestinal: absent: As Per HPI, Abdominal Pain, Belching, Bloating, Change in Bowel Habits, Change in Stool Character, Coffee Ground Emesis, Constipation, Cramping, Diarrhea, Dyspepsia, Dysphagia, Early Satiety, Excessive Flatus, Fecal Incontinence, Heartburn, Hematemesis, Hematochezia, Loose Stools, Melena, Nausea, Odynophagia, Temesmus, Vomiting, Other - Genitourinary Genitourinary: absent: As Per HPI, Change in Urinary Stream, Difficulty Urinating, Dysuria, Flank Pain, Hematuria, Pyuria, Nocturia, Urinary Incontinence, Urinary Frequency, Urinary Hesitance, Urinary Urgency, Voiding Freq/Small Amts, Freq UTI, Hx Renal/Bladder Calculi, Hx /Renal Surgery, Bladder Distension, Other - Musculoskeletal Musculoskeletal: Abnormal Gait, Back Pain, Joint Swelling, Limited Range of Motion, Muscle Weakness, Myalgias, Numbness - Integumentary Integumentary: Skin Ulcer - Neurological Neurological: Abnormal Gait Past Patient History - Infectious Disease Hx of Infectious Diseases: None - Tetanus Immunizations Tetanus Immunization: Unknown - Past Medical History & Family History Past Medical History?: Yes - Past Social History Smoking Status: Never Smoked - CARDIAC Hx Congestive Heart Failure: Yes Hx Hypercholesterolemia: Yes Hx Hypertension: Yes Hx Peripheral Edema: Yes (+3 pitting ble) - PULMONARY Hx Asthma: Yes Hx Chronic Obstructive Pulmonary Disease (COPD): Yes Hx Pneumonia: Yes Hx Pulmonary Embolism: Yes Hx Sleep Apnea: Yes - NEUROLOGICAL Hx Neurological Disorder: No - HEENT Hx HEENT Problems: No - RENAL Hx Chronic Kidney Disease: Yes (required HD in 2016 briefly) - ENDOCRINE/METABOLIC Hx Hyperthyroidism: Yes Hx Hypothyroidism: Yes - HEMATOLOGICAL/ONCOLOGICAL Hx Blood Disorders: No - INTEGUMENTARY Hx Dermatological Problems: Yes Other/Comment: both leggs discolored - MUSCULOSKELETAL/RHEUMATOLOGICAL Hx Falls: Yes - GASTROINTESTINAL Hx Gastrointestinal Disorders: (reflux obese) - GENITOURINARY/GYNECOLOGICAL Hx Reproductive Disorders: No - PSYCHIATRIC Hx Depression: Yes Hx Substance Use: No - SURGICAL HISTORY Hx Surgeries: Yes Hx Orthopedic Surgery: Yes (bilateral knee replacement) Other/Comment: total left knee - 1998. right ankle screws - 1987. right hip shyam - 1982 - ANESTHESIA Hx Anesthesia: Yes Hx Anesthesia Reactions: No Hx Malignant Hyperthermia: No Meds Home Medications: Home Medication List Medication Instructions Recorded Confirmed Type Acetaminophen [Tylenol 325mg tab] 650 mg PO Q6 PRN tab 09/17/17 Rx Insulin Human Regular [Novolin R] 0 unit SC ACHS unit 09/17/17 Rx Warfarin [Coumadin] 10 mg PO 1800 tab 09/17/17 Rx ceFAZolin [Ancef] 500 mg IVPB Q8H #21 vial 09/17/17 Rx oxyCODONE [oxyCODONE Immediate 15 mg PO Q4H PRN #20 tab 09/17/17 Rx Release Tab] oxyCODONE [oxyCONTIN Extended 80 mg PO Q8 #15 09/17/17 09/15/17 Rx Release Tab] Allergies/Adverse Reactions: Allergies Allergy/AdvReac Type Severity Reaction Status Date / Time No Known Allergies Allergy Verified 08/30/17 18:10 Physical Exam - Constitutional Appears: No Acute Distress, Chronically Ill - Head Exam Head Exam: ATRAUMATIC, NORMAL INSPECTION, NORMOCEPHALIC - Eye Exam Eye Exam: EOMI, Normal appearance, PERRL Pupil Exam: NORMAL ACCOMODATION, PERRL - ENT Exam ENT Exam: Mucous Membranes Moist, Normal Exam - Respiratory Exam Respiratory Exam: Clear to Auscultation Bilateral, NORMAL BREATHING PATTERN - Cardiovascular Exam Cardiovascular Exam: REGULAR RHYTHM, +S1, +S2 - GI/Abdominal Exam GI & Abdominal Exam: Normal Bowel Sounds, Soft. absent: Tenderness - Back Exam Back exam: paraspinal tenderness - Neurological Exam Neurological exam: Abnormal Gait, Alert, CN II-XII Intact, Oriented x3 - Psychiatric Exam Psychiatric exam: Normal Affect, Normal Mood - Skin Skin Exam: Rash Additional comments: skin ulcers b/l calfs with drainage Results - Vital Signs Recent Vital Signs: Last Vital Signs Temp 98.1 F 09/15/17 19:00 Pulse 74 09/15/17 19:00 Resp 20 09/15/17 19:00 BP 116/76 09/15/17 19:00 Pulse Ox 95 09/15/17 19:00 - Labs Result Diagrams: 09/16/17 08:36 09/16/17 08:36 Labs: Laboratory Results - last 24 hr 09/15/17 09/15/17 09/15/17 14:58 14:58 14:58 WBC 7.3 RBC 4.16 L Hgb 11.4 L Hct 33.9 L MCV 81.5 MCH 27.4 MCHC 33.6 RDW 14.9 H Plt Count 197 MPV 10.4 Neut % (Auto) 65.1 Lymph % (Auto) 21.3 [place] % (Auto) 7.8 Eos % (Auto) 4.3 H Baso % (Auto) 1.5 Neut # 4.8 Lymph # 1.6 [place] # 0.6 Eos # 0.3 Baso # 0.1 PT 16.4 H INR 1.4 APTT 38 H Sodium 133 Potassium 5.0 Chloride 92 L Carbon Dioxide 32 H Anion Gap 14 BUN 45 H Creatinine 1.3 Est GFR ( Amer) > 60 Est GFR (Non-Af Amer) 57 POC Glucose (mg/dL) Random Glucose 81 Calcium 9.6 Total Bilirubin 0.9 AST 30 ALT 17 L D Alkaline Phosphatase 186 H Total Protein 9.8 H Albumin 4.2 Globulin 5.5 H Albumin/Globulin Ratio 0.8 L 09/15/17 20:55 WBC RBC Hgb Hct MCV MCH MCHC RDW Plt Count MPV Neut % (Auto) Lymph % (Auto) [place] % (Auto) Eos % (Auto) Baso % (Auto) Neut # Lymph # [place] # Eos # Baso # PT INR APTT Sodium Potassium Chloride Carbon Dioxide Anion Gap BUN Creatinine Est GFR ( Amer) Est GFR (Non-Af Amer) POC Glucose (mg/dL) 174 H Random Glucose Calcium Total Bilirubin AST ALT Alkaline Phosphatase Total Protein Albumin Globulin Albumin/Globulin Ratio Assessment & Plan (1) Cellulitis Assessment and Plan: podiatry follow up antibiotics Status: Acute (2) Leg ulcer, left Status: Chronic (3) ANTONIA (generalized anxiety disorder) Status: Acute (4) Morbid obesity Status: Acute (5) Obstructive sleep apnea Status: Acute (6) Stasis ulcer of right lower extremity Status: Acute
[2017-09-16] MEDS: oxyCODONE 80 mg ER Tab (oxyCONTIN) PO SCH ×4 (02:02→20:12)
[2017-09-16] MEDS: oxyCODONE 5 mg Immediate Release Tab PO PRN ×2 (04:30→11:34)
[2017-09-16] MEDS: Levothyroxine 75 MCG TAB PO SCH (06:14)
[2017-09-16] MEDS: (Novolin R) Insulin Human Regular 100 units/ml vial SC SCH ×4 (07:43→21:23)
[2017-09-16 08:47] LABS: BASO # 0.1 K/uL (0.0-0.2); BASO % 0.9 % (0.0-2.0); EOS # 0.3 K/uL (0.0-0.7); EOS % 4.1 % (0.0-4.0); HEMATOCRIT 31.7 % (35.0-51.0); LYMPH # 1.4 K/uL (1.0-4.3); LYMPH % 20.8 % (20.0-40.0); MEAN CELL VOLUME 82.3 fL (80.0-94.0); MEAN CORPUSCULAR HGB CONC 32.8 g/dL (33.0-37.0); MEAN PLATELET VOLUME 10.6 fL (7.2-11.7); MONO # 0.5 K/uL (0.0-0.8); MONO % 6.6 % (0.0-10.0); RED CELL DISTRIBUTION WIDTH 14.8 % (11.5-14.5); WHITE BLOOD COUNT 6.9 K/uL (4.8-10.8)
[2017-09-16 08:57] LABS: INR 1.4
[2017-09-16 09:02] LABS: POTASSIUM 3.8 mmol/L (3.6-5.2)
[2017-09-16 09:05] LABS: CALCIUM 9.2 mg/dl (8.6-10.4)
--- NOTE | 2017-09-16 10:20 | CP.PCM.CON ---
History of Present Illness - History of Present Illness History of Present Illness: 57 year old male with PMHx of Asthma , CAD, HTN, HLD, Hyperthyroidism/ Hypothyroidism , CHF ,depression, DM, PE, DVT, fibromyalgia, S/P IVC filter was seen on floors for b/l venous stasis ulcerations and cellulitis. Patient states that he has a history of b/l leg wounds of this type and has been seen by Dr. Laguna in the past for treatment as well as Dr. Roach and Dr. Madison at [facility]. Patient states that his left lower extremity ulceration have become worse and understands that Dr. Laguna is doing a surgery to his left leg 'Wound debridement and application of graft'. He denies any further pedal complaints. He denies N/V/F/C/CP/SOB Review of Systems - Constitutional Constitutional: As Per HPI Past Patient History - Infectious Disease Hx of Infectious Diseases: None - Tetanus Immunizations Tetanus Immunization: Unknown - Past Medical History & Family History Past Medical History?: Yes - Past Social History Smoking Status: Never Smoked - CARDIAC Hx Congestive Heart Failure: Yes Hx Hypercholesterolemia: Yes Hx Hypertension: Yes Hx Peripheral Edema: Yes (+3 pitting ble) - PULMONARY Hx Asthma: Yes Hx Chronic Obstructive Pulmonary Disease (COPD): Yes Hx Pneumonia: Yes Hx Pulmonary Embolism: Yes Hx Sleep Apnea: Yes - NEUROLOGICAL Hx Neurological Disorder: No - HEENT Hx HEENT Problems: No - RENAL Hx Chronic Kidney Disease: Yes (required HD in 2016 briefly) - ENDOCRINE/METABOLIC Hx Hyperthyroidism: Yes Hx Hypothyroidism: Yes - HEMATOLOGICAL/ONCOLOGICAL Hx Blood Disorders: No - INTEGUMENTARY Hx Dermatological Problems: Yes Other/Comment: both leggs discolored - MUSCULOSKELETAL/RHEUMATOLOGICAL Hx Falls: Yes - GASTROINTESTINAL Hx Gastrointestinal Disorders: (reflux obese) - GENITOURINARY/GYNECOLOGICAL Hx Reproductive Disorders: No - PSYCHIATRIC Hx Depression: Yes Hx Substance Use: No - SURGICAL HISTORY Hx Surgeries: Yes Hx Orthopedic Surgery: Yes (bilateral knee replacement) Other/Comment: total left knee - 1998. right ankle screws - 1987. right hip shyam - 1982 - ANESTHESIA Hx Anesthesia: Yes Hx Anesthesia Reactions: No Hx Malignant Hyperthermia: No Meds Allergies/Adverse Reactions: Allergies Allergy/AdvReac Type Severity Reaction Status Date / Time No Known Allergies Allergy Verified 08/30/17 18:10 - Medications Medications: Current Medications Docusate Sodium (Colace) 100 mg PO DAILY [facility] Furosemide (Lasix) 40 mg PO BID [facility] Heparin Sodium (Porcine) (Heparin) 5,000 units SC Q8 [facility] Last Admin: 09/15/17 22:45 Dose: Not Given Cefazolin Sodium 500 mg/ (Sodium Chloride) 100 mls @ 100 mls/hr IVPB Q8H [facility] Last Admin: 09/16/17 04:02 Dose: 100 mls/hr Insulin Human Regular (Novolin R) 0 unit SC ACHS [facility] PRN Reason: Protocol Last Admin: 09/16/17 07:43 Dose: Not Given Levothyroxine Sodium (Synthroid) 75 mcg PO 0630 [facility] Last Admin: 09/16/17 06:14 Dose: 75 mcg Metformin HCl (Glucophage Xr) 500 mg PO BID [facility] Montelukast Sodium (Singulair) 10 mg PO HS [facility] Last Admin: 09/15/17 22:38 Dose: 10 mg Oxycodone HCl (Oxycontin Extended Release Tab) 80 mg PO Q6H [facility] Last Admin: 09/16/17 08:12 Dose: 80 mg Oxycodone HCl (Oxycodone Immediate Release Tab) 15 mg PO Q4H PRN PRN Reason: Pain, moderate (4-7) Last Admin: 09/16/17 04:30 Dose: 15 mg Pantoprazole Sodium (Protonix Ec Tab) 40 mg PO DAILY [facility] Potassium Chloride (K-Dur 20 Meq Er Tab) 20 meq PO DAILY [facility] Fluticasone/Salmeterol (Advair Diskus 250/50) 1 puff IH RQ12 [facility] Sitagliptin Phosphate (Januvia) 50 mg PO DAILY [facility] Trazodone HCl (Desyrel) 50 mg PO HS [facility] Last Admin: 09/15/17 22:39 Dose: Not Given Physical Exam - Constitutional Appears: Well, Non-toxic, No Acute Distress - Head Exam Head Exam: ATRAUMATIC - Extremities Exam Additional comments: Bilateral lower extrmeity exam Derm: +1 pitting edema to legs bilateral, localized erythema to mid-calf bilateral. Cellulitis localized to superficial ulcerations along: Left: Open wound to Anterior and lateral mid-leg region with active serous drainage absent undermining on a granular fibrotic base with shital-wound macerations. No PTB Right: Open wounds to distal 1/3 of leg , superficial open lesions on the posterior aspect of left leg, medial aspect of right leg- granular base, no purulence, minor serous drainage, no active bleeding, no undermining, no tracking, no probe to bone Vasc: Non-palpable pedal pulses due to edema b/l, TG warm to warm, CFT < 3 sec to all digits, +1 pitting edema Neuro: grossly diminished MUSC: pain on palpation of posterior and medial legs b/l - Neurological Exam Neurological exam: Alert, Oriented x3 - Psychiatric Exam Psychiatric exam: Normal Affect, Normal Mood - Skin Skin Exam: Normal Color, Warm Results - Vital Signs Recent Vital Signs: Last Vital Signs Temp 98 F 09/16/17 07:44 Pulse 70 09/16/17 07:44 Resp 20 09/16/17 07:44 BP 119/77 09/16/17 07:44 Pulse Ox 95 09/16/17 07:44 - Labs Result Diagrams: 09/16/17 08:36 09/16/17 08:36 Labs: Laboratory Results - last 24 hr 09/15/17 09/15/17 09/15/17 14:58 14:58 14:58 WBC 7.3 RBC 4.16 L Hgb 11.4 L Hct 33.9 L MCV 81.5 MCH 27.4 MCHC 33.6 RDW 14.9 H Plt Count 197 MPV 10.4 Neut % (Auto) 65.1 Lymph % (Auto) 21.3 [place] % (Auto) 7.8 Eos % (Auto) 4.3 H Baso % (Auto) 1.5 Neut # 4.8 Lymph # 1.6 [place] # 0.6 Eos # 0.3 Baso # 0.1 PT 16.4 H INR 1.4 APTT 38 H Sodium 133 Potassium 5.0 Chloride 92 L Carbon Dioxide 32 H Anion Gap 14 BUN 45 H Creatinine 1.3 Est GFR ( Amer) > 60 Est GFR (Non-Af Amer) 57 POC Glucose (mg/dL) Random Glucose 81 Calcium 9.6 Total Bilirubin 0.9 AST 30 ALT 17 L D Alkaline Phosphatase 186 H Total Protein 9.8 H Albumin 4.2 Globulin 5.5 H Albumin/Globulin Ratio 0.8 L 09/15/17 09/16/17 09/16/17 20:55 07:09 08:36 WBC RBC Hgb Hct MCV MCH MCHC RDW Plt Count MPV Neut % (Auto) Lymph % (Auto) [place] % (Auto) Eos % (Auto) Baso % (Auto) Neut # Lymph # [place] # Eos # Baso # PT 15.8 H INR 1.4 APTT Sodium Potassium Chloride Carbon Dioxide Anion Gap BUN Creatinine Est GFR ( Amer) Est GFR (Non-Af Amer) POC Glucose (mg/dL) 174 H 122 H Random Glucose Calcium Total Bilirubin AST ALT Alkaline Phosphatase Total Protein Albumin Globulin Albumin/Globulin Ratio 09/16/17 09/16/17 08:36 08:36 WBC 6.9 RBC 3.86 L Hgb 10.4 L Hct 31.7 L MCV 82.3 MCH 27.0 MCHC 32.8 L RDW 14.8 H Plt Count 181 MPV 10.6 Neut % (Auto) 67.6 Lymph % (Auto) 20.8 [place] % (Auto) 6.6 Eos % (Auto) 4.1 H Baso % (Auto) 0.9 Neut # 4.6 Lymph # 1.4 [place] # 0.5 Eos # 0.3 Baso # 0.1 PT INR APTT Sodium 134 Potassium 3.8 Chloride 92 L Carbon Dioxide 31 H Anion Gap 15 BUN 44 H Creatinine 1.7 H Est GFR ( Amer) 51 Est GFR (Non-Af Amer) 42 POC Glucose (mg/dL) Random Glucose 111 H Calcium 9.2 Total Bilirubin AST ALT Alkaline Phosphatase Total Protein Albumin Globulin Albumin/Globulin Ratio Assessment & Plan - Assessment and Plan (Free Text) Assessment: 57 y/o male presents with cellulitis and bilateral superficial venous stasis ulcerations Plan: patient evaluated and seen at bedside labs and vitals reviewed; afebrile, WBC 6.9 NPO status confirmed, INR 1.4 Consent for surgery at 4PM today in the chart Patient is due for "Left leg wound debridement and application of graft" by Dr. Laguna DPM No guarantees were made regarding outcomes of surgery podiatry will continue to monitor while patient remains in house
[2017-09-16] MEDS: Potassium Chloride 20 mEq ER Tab PO SCH (10:49)
[2017-09-16] MEDS: Pantoprazole 40 mg EC Tab PO SCH (10:49)
[2017-09-16] MEDS: Fluticasone-Salmeterol 250-50mcg Diskus IH SCH ×2 (12:30→19:46)
--- NOTE | 2017-09-16 15:15 | CP.PCM.PN ---
Subjective - Date & Time of Evaluation Date of Evaluation: 09/16/17 Time of Evaluation: 20:15 - Subjective Subjective: Pt is for OR,no nausea, vomitting. b/l calf ulcers possible grafting then wound care Objective - Vital Signs/Intake and Output Vital Signs (last 24 hours): Temp Pulse Resp BP Pulse Ox 98 F 70 20 119/77 95 09/16/17 07:44 09/16/17 07:44 09/16/17 07:44 09/16/17 07:44 09/16/17 07:44 Intake and Output: 09/16/17 09/16/17 06:59 18:59 Intake Total 500 Output Total 1300 Balance -800 - Medications Medications: Current Medications Docusate Sodium (Colace) 100 mg PO DAILY [facility] Last Admin: 09/16/17 10:48 Dose: Not Given Furosemide (Lasix) 40 mg PO BID [facility] Last Admin: 09/16/17 10:49 Dose: Not Given Heparin Sodium (Porcine) (Heparin) 5,000 units SC Q8 [facility] Last Admin: 09/15/17 22:45 Dose: Not Given Cefazolin Sodium 500 mg/ (Sodium Chloride) 100 mls @ 100 mls/hr IVPB Q8H [facility] Last Admin: 09/16/17 12:00 Dose: 100 mls/hr Insulin Human Regular (Novolin R) 0 unit SC ACHS [facility] PRN Reason: Protocol Last Admin: 09/16/17 11:30 Dose: Not Given Levothyroxine Sodium (Synthroid) 75 mcg PO 0630 [facility] Last Admin: 09/16/17 06:14 Dose: 75 mcg Metformin HCl (Glucophage Xr) 500 mg PO BID [facility] Last Admin: 09/16/17 10:48 Dose: Not Given Montelukast Sodium (Singulair) 10 mg PO HS [facility] Last Admin: 09/15/17 22:38 Dose: 10 mg Oxycodone HCl (Oxycontin Extended Release Tab) 80 mg PO Q6H [facility] Last Admin: 09/16/17 14:35 Dose: 80 mg Oxycodone HCl (Oxycodone Immediate Release Tab) 15 mg PO Q4H PRN PRN Reason: Pain, moderate (4-7) Last Admin: 09/16/17 11:34 Dose: 15 mg Pantoprazole Sodium (Protonix Ec Tab) 40 mg PO DAILY [facility] Last Admin: 09/16/17 10:49 Dose: Not Given Potassium Chloride (K-Dur 20 Meq Er Tab) 20 meq PO DAILY [facility] Last Admin: 09/16/17 10:49 Dose: Not Given Fluticasone/Salmeterol (Advair Diskus 250/50) 1 puff IH RQ12 [facility] Last Admin: 09/16/17 12:30 Dose: 1 puff Sitagliptin Phosphate (Januvia) 50 mg PO DAILY [facility] Last Admin: 09/16/17 10:49 Dose: Not Given Trazodone HCl (Desyrel) 50 mg PO HS [facility] Last Admin: 09/15/17 22:39 Dose: Not Given - Labs Labs: 09/16/17 08:36 09/16/17 08:36 PT 15.8 SECONDS (9.7-12.2) H 09/16/17 08:36 INR 1.4 09/16/17 08:36 APTT 38 SECONDS (21-34) H 09/15/17 14:58 - Constitutional Appears: No Acute Distress - Head Exam Head Exam: ATRAUMATIC, NORMAL INSPECTION, NORMOCEPHALIC - Eye Exam Eye Exam: EOMI, Normal appearance, PERRL Pupil Exam: NORMAL ACCOMODATION, PERRL - Respiratory Exam Respiratory Exam: Decreased Breath Sounds, Wheezes - Cardiovascular Exam Cardiovascular Exam: REGULAR RHYTHM, +S1, +S2. absent: Murmur - GI/Abdominal Exam GI & Abdominal Exam: Soft, Normal Bowel Sounds. absent: Tenderness - Neurological Exam Neurological Exam: Alert, Awake, CN II-XII Intact, Normal Gait, Oriented x3 - Psychiatric Exam Psychiatric exam: Normal Mood - Skin Skin Exam: Erythema, Rash, Vesicles Assessment and Plan (1) Cellulitis Status: Acute (2) Leg ulcer, left Status: Chronic (3) ANTONIA (generalized anxiety disorder) Status: Acute (4) Morbid obesity Status: Acute (5) Obstructive sleep apnea Status: Acute (6) Stasis ulcer of right lower extremity Status: Acute
[2017-09-16] MEDS ORDERED: Lidocaine 2% Inj (20ml) ONE (17:27)
[2017-09-16] MEDS ORDERED: Bupivacaine HCl 0.5% PF (10 ml) Inj ONE (17:27)
[2017-09-16] MEDS ORDERED: Succinylcholine Chloride 20 mg/ml Syr (5 ml) IV ONE (17:28)
[2017-09-16] MEDS ORDERED: Bacitracin 500 Units/gm Oint Foilpak UD ONE (17:28)
[2017-09-16] MEDS ORDERED: Propofol 10 mg/ml Inj (20 ML) ONE (17:28)
[2017-09-16] MEDS ORDERED: Lactated Ringer's 1,000 ML IV ONE (17:35)
[2017-09-16] MEDS ORDERED: HYDROmorphone 0.5 mg/0.5 ml ISec IVP PRN (18:41)
--- NOTE | 2017-09-16 18:45 | PCM.SURG1 ---
Surgeon's Initial Post Op Note - Surgeon's Notes Surgeon: Dr. Laguna Cash Applications Analyst: Dr. Huey Chaparro PGY1 Type of Anesthesia: General Endo Anesthesia Administered By: Dr. Herbert Pre-Operative Diagnosis: bilateral superficial venous stasis ulcerations Operative Findings: see operative note. materials: Alloderm Post-Operative Diagnosis: same as above Operation Performed: left leg wound debridement with application of Alloderm Specimen/Specimens Removed: none Estimated Blood Loss: EBL {In ML}: 40 Blood Products Given: N/A Drains Used: No Drains Post-Op Condition: Good Date of Surgery/Procedure: 09/16/17 Time of Surgery/Procedure: 18:30
[2017-09-16] MEDS: HYDROmorphone 0.5 mg/0.5 ml ISec IVP PRN ×2 (18:57→19:13)
--- NOTE | 2017-09-16 18:59 | CP.PCM.CON ---
History of Present Illness - History of Present Illness History of Present Illness: 57 year old male with PMHx of Asthma , CAD, HTN, HLD, Hyperthyroidism/ Hypothyroidism , CHF ,depression, DM, PE, DVT, fibromyalgia, S/P IVC filter was seen on floors for b/l venous stasis ulcerations and cellulitis. Patient states that he has a history of b/l leg wounds of this type and has been seen by Dr. Laguna in the past for treatment as well as Dr. Roach and Dr. Madison at [place]. Patient states that his left lower extremity ulceration have become worse He is going to the OR for debridement and skin graft cultures have been reviewed Review of Systems - Review of Systems All systems: reviewed and no additional remarkable complaints except - EENT Eyes: absent: As Per HPI, Blind Spots, Blurred Vision, Change in Vision, Decreased Night Vision, Diplopia, Discharge, Dry Eye, Exophthalmos, Floaters, Irritation, Itchy Eyes, Loss of Peripheral Vision, Pain, Photophobia, Requires Corrective Lenses, Sees Flashes, Spots in Vision, Tunnel Vision, Other Visual Disturbances, Loss of Vision, Other Ears: absent: As Per HPI, Decreased Hearing, Ear Discharge, Ear Pain, Tinnitus, Abnormal Hearing, Disequilibrium, Dizziness, Other Nose/Mouth/Throat: absent: As Per HPI, Epistaxis, Nasal Congestion, Nasal Discharge, Nasal Obstruction, Nasal Trauma, Nose Pain, Post Nasal Drip, Sinus Pain, Sinus Pressure, Bleeding Gums, Change in Voice, Dental Pain, Dry Mouth, Dysphagia, Halitosis, Hoarsness, Lip Swelling, Mouth Lesions, Mouth Pain, Odynophagia, Sore Throat, Throat Swelling, Tongue Swelling, Facial Pain, Neck Pain, Neck Mass, Other - Cardiovascular Cardiovascular: absent: As Per HPI, Acrocyanosis, Chest Pain, Chest Pain at Rest , Chest Pain with Activity, Claudication, Diaphoresis, Dyspnea, Dyspnea on Exertion, Edema, Irregular Heart Rhythm, Pain Radiating to Arm/Neck/Jaw, Leg Edema, Leg Ulcers, Lightheadedness, Orthopnea, Palpitations, Paroxysmal Nocturnal Dyspnea, Pedal Edema, Radiating Pain, Rapid Heart Rate, Slow Heart Rate, Syncope, Other - Respiratory Respiratory: absent: As Per HPI, Cough, Dyspnea, Hemoptysis, Dyspnea on Exertion , Wheezing, Snoring, Stridor, Pain on Inspiration, Chest Congestion, Excessive Mucous Production, Change in Mucous Color, Pain with Coughing, Other - Gastrointestinal Gastrointestinal: absent: As Per HPI, Abdominal Pain, Belching, Bloating, Change in Bowel Habits, Change in Stool Character, Coffee Ground Emesis, Constipation, Cramping, Diarrhea, Dyspepsia, Dysphagia, Early Satiety, Excessive Flatus, Fecal Incontinence, Heartburn, Hematemesis, Hematochezia, Loose Stools, Melena, Nausea, Odynophagia, Temesmus, Vomiting, Other - Genitourinary Genitourinary: absent: As Per HPI, Change in Urinary Stream, Difficulty Urinating, Dysuria, Flank Pain, Hematuria, Pyuria, Nocturia, Urinary Incontinence, Urinary Frequency, Urinary Hesitance, Urinary Urgency, Voiding Freq/Small Amts, Freq UTI, Hx Renal/Bladder Calculi, Hx /Renal Surgery, Bladder Distension, Other - Musculoskeletal Musculoskeletal: As Per HPI - Integumentary Integumentary: As Per HPI - Neurological Neurological: absent: As Per HPI, Abnormal Gait, Abnormal Hearing, Abnormal Movements, Abnormal Speech, Behavioral Changes, Burning Sensations, Confusion, Convulsions, Disequilibrium, Dizziness, Numbness, Focal Weakness, Frequent Falls , Headaches, Lack of Coordination, Loss of Vision, Memory Loss, Paresthesias, Radicular Pain, Restless Legs, Sensory Deficit, Syncope, Tingling, Tremor, Vertigo, Weakness, Other Visual Disturbances, Other - Psychiatric Psychiatric: absent: As Per HPI, Abnormal Sleep Pattern, Anhedonia, Anxiety, Auditory Hallucinations, Behavioral Changes, Change in Appetite, Change in Libido, Confusion, Depression, Difficulty Concentrating, Hallucinations, Homicidal Ideation, Hopelessness, Irritability, Memory Loss, Mood Swings, Panic Attacks, Paranoia, Suicidal Ideation, Visual Hallucinations, Tactile Hallucinations, Other - Endocrine Endocrine: absent: As Per HPI, Change in Body Appearance, Change in Libido, Cold Intolorance, Deepening of Voice, Excessive Sweating, Fatigue, Flushing, Heat Intolorance, Increase in Ring/Shoe/Hat Size, Palpitations, Polydipsia, Polyphagia, Polyuria, Other - Hematologic/Lymphatic Hematologic: absent: As Per HPI, Easy Bleeding, Easy Bruising, Lymphadenopathy, Other Past Patient History - Infectious Disease Hx of Infectious Diseases: None - Tetanus Immunizations Tetanus Immunization: Unknown - Past Medical History & Family History Past Medical History?: Yes - Past Social History Smoking Status: Never Smoked - CARDIAC Hx Congestive Heart Failure: Yes Hx Hypercholesterolemia: Yes Hx Hypertension: Yes Hx Peripheral Edema: Yes (+3 pitting ble) - PULMONARY Hx Asthma: Yes Hx Chronic Obstructive Pulmonary Disease (COPD): Yes Hx Pneumonia: Yes Hx Pulmonary Embolism: Yes Hx Sleep Apnea: Yes - NEUROLOGICAL Hx Neurological Disorder: No - HEENT Hx HEENT Problems: No - RENAL Hx Chronic Kidney Disease: Yes (required HD in 2016 briefly) - ENDOCRINE/METABOLIC Hx Hyperthyroidism: Yes Hx Hypothyroidism: Yes - HEMATOLOGICAL/ONCOLOGICAL Hx Blood Disorders: No - INTEGUMENTARY Hx Dermatological Problems: Yes Other/Comment: both leggs discolored - MUSCULOSKELETAL/RHEUMATOLOGICAL Hx Falls: Yes - GASTROINTESTINAL Hx Gastrointestinal Disorders: (reflux obese) - GENITOURINARY/GYNECOLOGICAL Hx Reproductive Disorders: No - PSYCHIATRIC Hx Depression: Yes Hx Substance Use: No - SURGICAL HISTORY Hx Surgeries: Yes Hx Orthopedic Surgery: Yes (bilateral knee replacement) Other/Comment: total left knee - 1998. right ankle screws - 1987. right hip shyam - 1982 - ANESTHESIA Hx Anesthesia: Yes Hx Anesthesia Reactions: No Hx Malignant Hyperthermia: No Meds Allergies/Adverse Reactions: Allergies Allergy/AdvReac Type Severity Reaction Status Date / Time No Known Allergies Allergy Verified 08/30/17 18:10 - Medications Medications: Current Medications Docusate Sodium (Colace) 100 mg PO DAILY [facility] Last Admin: 09/16/17 10:48 Dose: Not Given Furosemide (Lasix) 40 mg PO BID [facility] Last Admin: 09/16/17 10:49 Dose: Not Given Heparin Sodium (Porcine) (Heparin) 5,000 units SC Q8 [facility] Last Admin: 09/15/17 22:45 Dose: Not Given Hydromorphone HCl (Dilaudid) 0.5 mg IVP Q15M PRN PRN Reason: Pain, severe (8-10) Stop: 09/16/17 20:29 Hydromorphone HCl (Dilaudid) 0.5 mg IVP Q5M PRN PRN Reason: Pain, severe (8-10) Stop: 09/16/17 20:41 Cefazolin Sodium 500 mg/ (Sodium Chloride) 100 mls @ 100 mls/hr IVPB Q8H [facility] Last Admin: 09/16/17 12:00 Dose: 100 mls/hr Insulin Human Regular (Novolin R) 0 unit SC ACHS [facility] PRN Reason: Protocol Last Admin: 09/16/17 17:39 Dose: Not Given Levothyroxine Sodium (Synthroid) 75 mcg PO 0630 [facility] Last Admin: 09/16/17 06:14 Dose: 75 mcg Metformin HCl (Glucophage Xr) 500 mg PO BID [facility] Last Admin: 09/16/17 10:48 Dose: Not Given Montelukast Sodium (Singulair) 10 mg PO [facility] Last Admin: 09/15/17 22:38 Dose: 10 mg Ondansetron HCl (Zofran Inj) 4 mg IVP ONCE PRN PRN Reason: Nausea/Vomiting Stop: 09/16/17 20:30 Ondansetron HCl (Zofran Inj) 4 mg IVP ONCE PRN PRN Reason: Nausea/Vomiting Stop: 09/16/17 20:42 Oxycodone HCl (Oxycontin Extended Release Tab) 80 mg PO Q6H [facility] Last Admin: 09/16/17 14:35 Dose: 80 mg Oxycodone HCl (Oxycodone Immediate Release Tab) 15 mg PO Q4H PRN PRN Reason: Pain, moderate (4-7) Last Admin: 09/16/17 11:34 Dose: 15 mg Pantoprazole Sodium (Protonix Ec Tab) 40 mg PO DAILY [facility] Last Admin: 09/16/17 10:49 Dose: Not Given Potassium Chloride (K-Dur 20 Meq Er Tab) 20 meq PO DAILY [facility] Last Admin: 09/16/17 10:49 Dose: Not Given Fluticasone/Salmeterol (Advair Diskus 250/50) 1 puff IH RQ12 [facility] Last Admin: 09/16/17 12:30 Dose: 1 puff Sitagliptin Phosphate (Januvia) 50 mg PO DAILY [facility] Last Admin: 09/16/17 10:49 Dose: Not Given Trazodone HCl (Desyrel) 50 mg PO [facility] Last Admin: 09/15/17 22:39 Dose: Not Given Physical Exam - Constitutional Appears: Chronically Ill - Head Exam Head Exam: ATRAUMATIC - Eye Exam Eye Exam: Normal appearance - ENT Exam ENT Exam: Mucous Membranes Dry - Neck Exam Neck exam: Negative for: Lymphadenopathy - Respiratory Exam Respiratory Exam: Decreased Breath Sounds - Cardiovascular Exam Cardiovascular Exam: REGULAR RHYTHM - GI/Abdominal Exam GI & Abdominal Exam: Diminished Bowel Sounds, Soft - Rectal Exam Rectal Exam: Deferred - Exam Exam: NORMAL INSPECTION - Extremities Exam Extremities exam: Positive for: pedal edema. Negative for: calf tenderness, tenderness, pedal pulses present - Back Exam Back exam: absent: CVA tenderness (L), CVA tenderness (R) - Neurological Exam Neurological exam: Alert, CN II-XII Intact, Oriented x3, Reflexes Normal - Psychiatric Exam Psychiatric exam: Normal Mood - Skin Skin Exam: Dry - Additional Findings Additional findings: check OR cultures cont IV rx and wound care Results - Vital Signs Recent Vital Signs: Last Vital Signs Temp 97.8 F 09/16/17 16:00 Pulse 64 09/16/17 16:00 Resp 20 09/16/17 16:00 BP 143/83 09/16/17 16:00 Pulse Ox 97 09/16/17 16:00 - Labs Result Diagrams: 09/16/17 08:36 09/16/17 08:36 Labs: Laboratory Results - last 24 hr 09/15/17 09/16/17 09/16/17 20:55 07:09 08:36 WBC RBC Hgb Hct MCV MCH MCHC RDW Plt Count MPV Neut % (Auto) Lymph % (Auto) [place] % (Auto) Eos % (Auto) Baso % (Auto) Neut # Lymph # [place] # Eos # Baso # PT 15.8 H INR 1.4 Sodium Potassium Chloride Carbon Dioxide Anion Gap BUN Creatinine Est GFR ( Amer) Est GFR (Non-Af Amer) POC Glucose (mg/dL) 174 H 122 H Random Glucose Calcium 09/16/17 09/16/17 09/16/17 08:36 08:36 12:40 WBC 6.9 RBC 3.86 L Hgb 10.4 L Hct 31.7 L MCV 82.3 MCH 27.0 MCHC 32.8 L RDW 14.8 H Plt Count 181 MPV 10.6 Neut % (Auto) 67.6 Lymph % (Auto) 20.8 [place] % (Auto) 6.6 Eos % (Auto) 4.1 H Baso % (Auto) 0.9 Neut # 4.6 Lymph # 1.4 [place] # 0.5 Eos # 0.3 Baso # 0.1 PT INR Sodium 134 Potassium 3.8 Chloride 92 L Carbon Dioxide 31 H Anion Gap 15 BUN 44 H Creatinine 1.7 H Est GFR ( Amer) 51 Est GFR (Non-Af Amer) 42 POC Glucose (mg/dL) 93 Random Glucose 111 H Calcium 9.2 09/16/17 09/16/17 16:03 18:47 WBC RBC Hgb Hct MCV MCH MCHC RDW Plt Count MPV Neut % (Auto) Lymph % (Auto) [place] % (Auto) Eos % (Auto) Baso % (Auto) Neut # Lymph # [place] # Eos # Baso # PT INR Sodium Potassium Chloride Carbon Dioxide Anion Gap BUN Creatinine Est GFR ( Amer) Est GFR (Non-Af Amer) POC Glucose (mg/dL) 84 120 H Random Glucose Calcium Assessment & Plan (1) Cellulitis Status: Acute (2) Leg ulcer, left Status: Chronic (3) Acute renal failure (ARF) Status: Acute (4) Altered mental status Status: Acute (5) Anxiety disorder due to general medical condition Status: Acute (6) Cellulitis Status: Acute (7) Decubitus ulcer Status: Acute (8) ANTONIA (generalized anxiety disorder) Status: Acute
[2017-09-16 23:23] VITALS: RESP 20
[2017-09-17] MEDS: oxyCODONE 80 mg ER Tab (oxyCONTIN) PO SCH ×4 (02:07→20:02)
[2017-09-17] MEDS: oxyCODONE 5 mg Immediate Release Tab PO PRN ×3 (03:57→16:22)
[2017-09-17] MEDS: Levothyroxine 75 MCG TAB PO SCH (06:22)
[2017-09-17] MEDS: Fluticasone-Salmeterol 250-50mcg Diskus IH SCH (07:45)
[2017-09-17 08:04] VITALS: O2SAT 97
[2017-09-17] MEDS: (Novolin R) Insulin Human Regular 100 units/ml vial SC SCH ×3 (08:17→17:02)
[2017-09-17] MEDS: Potassium Chloride 20 mEq ER Tab PO SCH (09:23)
[2017-09-17] MEDS: Pantoprazole 40 mg EC Tab PO SCH (09:24)
--- NOTE | 2017-09-17 09:43 | CP.PCM.PN ---
Subjective - Date & Time of Evaluation Date of Evaluation: 09/17/17 Time of Evaluation: 09:45 - Subjective Subjective: Podiatry note for Dr. Laguna 57 year old male patient 1 day s/p Left leg wound debridement with application of Alloderm was seen at [facility] this AM. Patient is well known to Dr. Laguna in the past for treatment as well as Dr. Roach and Dr. Madison at [place]. Patient complains of mild pain to Left leg ulceration but denies pain to right leg ulcerations. He denies any further pedal complaints. He denies N/V/F/C/CP/ SOB Objective - Vital Signs/Intake and Output Vital Signs (last 24 hours): Temp Pulse Resp BP Pulse Ox 98.1 F 76 20 130/72 97 09/17/17 08:00 09/17/17 08:00 09/17/17 08:00 09/17/17 09:24 09/17/17 08:00 Intake and Output: 09/17/17 09/17/17 06:59 18:59 Intake Total 450 Output Total 700 Balance -250 - Medications Medications: Current Medications Acetaminophen (Tylenol 325mg Tab) 650 mg PO Q6 PRN PRN Reason: Headache Last Admin: 09/16/17 21:15 Dose: 650 mg Docusate Sodium (Colace) 100 mg PO DAILY [facility] Last Admin: 09/17/17 09:23 Dose: 100 mg Furosemide (Lasix) 40 mg PO BID [facility] Last Admin: 09/17/17 09:24 Dose: 40 mg Heparin Sodium (Porcine) (Heparin) 5,000 units SC Q8 [facility] Last Admin: 09/15/17 22:45 Dose: Not Given Cefazolin Sodium 500 mg/ (Sodium Chloride) 100 mls @ 100 mls/hr IVPB Q8H [facility] Last Admin: 09/17/17 04:03 Dose: 100 mls/hr Insulin Human Regular (Novolin R) 0 unit SC ACHS [facility] PRN Reason: Protocol Last Admin: 09/17/17 08:17 Dose: Not Given Levothyroxine Sodium (Synthroid) 75 mcg PO 0630 [facility] Last Admin: 09/17/17 06:22 Dose: 75 mcg Metformin HCl (Glucophage Xr) 500 mg PO BID [facility] Last Admin: 09/17/17 09:20 Dose: 500 mg Montelukast Sodium (Singulair) 10 mg PO HS [facility] Last Admin: 09/16/17 21:21 Dose: 10 mg Oxycodone HCl (Oxycontin Extended Release Tab) 80 mg PO Q6H [facility] Last Admin: 09/17/17 08:18 Dose: 80 mg Oxycodone HCl (Oxycodone Immediate Release Tab) 15 mg PO Q4H PRN PRN Reason: Pain, moderate (4-7) Last Admin: 09/17/17 03:57 Dose: 15 mg Pantoprazole Sodium (Protonix Ec Tab) 40 mg PO DAILY [facility] Last Admin: 09/17/17 09:24 Dose: 40 mg Potassium Chloride (K-Dur 20 Meq Er Tab) 20 meq PO DAILY [facility] Last Admin: 09/17/17 09:23 Dose: 20 meq Fluticasone/Salmeterol (Advair Diskus 250/50) 1 puff IH RQ12 [facility] Last Admin: 09/17/17 07:45 Dose: 1 puff Sitagliptin Phosphate (Januvia) 50 mg PO DAILY [facility] Last Admin: 09/17/17 09:23 Dose: 50 mg Trazodone HCl (Desyrel) 50 mg PO HS [facility] Last Admin: 09/16/17 21:22 Dose: Not Given Warfarin Sodium (Coumadin) 10 mg PO 1800 [facility] Stop: 09/17/17 18:01 - Labs Labs: 09/16/17 08:36 09/16/17 08:36 PT 15.8 SECONDS (9.7-12.2) H 09/16/17 08:36 INR 1.4 09/16/17 08:36 APTT 38 SECONDS (21-34) H 09/15/17 14:58 - Constitutional Appears: Well, Non-toxic, No Acute Distress - Head Exam Head Exam: ATRAUMATIC - Extremities Exam Additional comments: Bilateral lower extrmeity exam Derm: +1 pitting edema to legs bilateral, localized erythema to mid-calf bilateral. Left: Dressings left intact. No strikethrough Right: Open wounds to distal 1/3 of leg , superficial open lesions on the posterior aspect of left leg, medial aspect of right leg- granular base, no purulence, minor serous drainage, no active bleeding, no undermining, no tracking, no probe to bone Vasc: Non-palpable pedal pulses due to edema b/l, TG warm to warm, CFT < 3 sec to all digits, +1 pitting edema Neuro: grossly diminished MUSC: pain on palpation of posterior and medial legs b/l - Skin Skin Exam: Normal Color, Warm Assessment and Plan - Assessment and Plan (Free Text) Assessment: 57 y/o male presents with cellulitis and bilateral superficial venous stasis ulcerations; 1 day s/p left leg wound debridement and graft application Plan: patient evaluated and seen at bedside labs and vitals reviewed; afebrile Right leg dressing changed today using Xeroform, DSD Left leg dressing left intact (graft application to stay intact for 1 week) PICC line to be placed before d/c today Patient to continue for IV Ance[facility] at [facility] Patient is stable for dc from podiatry standpoint once PICC in place podiatry will continue to monitor while patient remains in house
[2017-09-17 11:53] LABS: INR 1.2
--- NOTE | 2017-09-17 15:35 | CP.PCM.PN ---
Subjective - Date & Time of Evaluation Date of Evaluation: 09/17/17 Time of Evaluation: 11:00 - Subjective Subjective: Pt seen today denies any chest pain, sob, abdominal pain, N/V/D , c/o pain to the B/L LE s/p Left leg wound debridement with application of Alloderm s/p PICC line insertion Objective - Vital Signs/Intake and Output Vital Signs (last 24 hours): Temp Pulse Resp BP Pulse Ox 98.1 F 76 20 130/72 97 09/17/17 08:00 09/17/17 08:00 09/17/17 08:00 09/17/17 09:24 09/17/17 08:00 Intake and Output: 09/17/17 09/17/17 06:59 18:59 Intake Total 450 Output Total 700 Balance -250 - Medications Medications: Current Medications Acetaminophen (Tylenol 325mg Tab) 650 mg PO Q6 PRN PRN Reason: Headache Last Admin: 09/17/17 14:32 Dose: 650 mg Docusate Sodium (Colace) 100 mg PO DAILY [facility] Last Admin: 09/17/17 09:23 Dose: 100 mg Furosemide (Lasix) 40 mg PO BID [facility] Last Admin: 09/17/17 09:24 Dose: 40 mg Cefazolin Sodium 500 mg/ (Sodium Chloride) 100 mls @ 100 mls/hr IVPB Q8H [facility] Last Admin: 09/17/17 11:02 Dose: 100 mls/hr Insulin Human Regular (Novolin R) 0 unit SC ACHS [facility] PRN Reason: Protocol Last Admin: 09/17/17 11:41 Dose: 1 unit Levothyroxine Sodium (Synthroid) 75 mcg PO 0630 [facility] Last Admin: 09/17/17 06:22 Dose: 75 mcg Metformin HCl (Glucophage Xr) 500 mg PO BID [facility] Last Admin: 09/17/17 09:20 Dose: 500 mg Montelukast Sodium (Singulair) 10 mg PO HS [facility] Last Admin: 09/16/17 21:21 Dose: 10 mg Oxycodone HCl (Oxycontin Extended Release Tab) 80 mg PO Q6H [facility] Last Admin: 09/17/17 14:32 Dose: 80 mg Oxycodone HCl (Oxycodone Immediate Release Tab) 15 mg PO Q4H PRN PRN Reason: Pain, moderate (4-7) Last Admin: 09/17/17 11:09 Dose: 15 mg Pantoprazole Sodium (Protonix Ec Tab) 40 mg PO DAILY [facility] Last Admin: 09/17/17 09:24 Dose: 40 mg Potassium Chloride (K-Dur 20 Meq Er Tab) 20 meq PO DAILY [facility] Last Admin: 09/17/17 09:23 Dose: 20 meq Fluticasone/Salmeterol (Advair Diskus 250/50) 1 puff IH RQ12 [facility] Last Admin: 09/17/17 07:45 Dose: 1 puff Sitagliptin Phosphate (Januvia) 50 mg PO DAILY [facility] Last Admin: 09/17/17 09:23 Dose: 50 mg Trazodone HCl (Desyrel) 50 mg PO HS [facility] Last Admin: 09/16/17 21:22 Dose: Not Given Warfarin Sodium (Coumadin) 10 mg PO 1800 [facility] Stop: 09/17/17 18:01 - Labs Labs: 09/16/17 08:36 09/16/17 08:36 PT 14.0 SECONDS (9.7-12.2) H 09/17/17 11:24 INR 1.2 09/17/17 11:24 APTT 38 SECONDS (21-34) H 09/15/17 14:58 Assessment and Plan - Assessment and Plan (Free Text) Assessment: A/P 57 yr old mal e admitted from rehab for wound debridement for non healing ulcer on Left LE s/p Left leg wound debridement with application of Alloderm s/p picc line placement today D/W with Dr. bhandari , continue 7 more days of IV antibiotics and Dr. Laguna needs to evaluate wound for continuation of antibiotics seen by Dr. Albright, stable for discharge back to [facility] today and Dr. Albright will follow the patient at [facility]
[2017-09-17] MEDS ORDERED: Lidocaine 2% Inj (20ml) ONE (15:52)
--- NOTE | 2017-09-17 16:00 | PCM.SURG1 ---
Surgeon's Initial Post Op Note - Surgeon's Notes Surgeon: Anibal Carroll MD State'S Attorney: NONE Type of Anesthesia: Local Pre-Operative Diagnosis: Infection requiring custodial IV abx Operative Findings: Patent left basilic vein. Post-Operative Diagnosis: Infection requiring terminal carman IV abx Operation Performed: Single lumen picc placement left basilic vein, 45 cm. Tip is in the SVC. Specimen/Specimens Removed: NONE Estimated Blood Loss: EBL {In ML}: 2 Blood Products Given: N/A Drains Used: No Drains Post-Op Condition: Fair Date of Surgery/Procedure: 09/17/17 Time of Surgery/Procedure: 15:55
[2017-09-17 16:30] VITALS: BP 131/84; PULSE 68; TEMP 97.8
--- NOTE | 2017-09-17 16:50 | SPECPROC ---
PROCEDURE: Date of procedure: 09/17/2017 Procedure: 1. Placement of a left arm PICC with ultrasound and fluoroscopic guidance, CPT 41965 2. PICC tip confirmation with spot radiograph and is in the superior vena cava Medications: 1 percent lidocaine Total Fluoro time: 4 seconds Radiation: 1 mGy EBL: 3 cc HISTORY: Infection requiring long-term IV antibiotics TECHNIQUE: Following informed consent and procedure time-out, the patient placed supine on the interventional table and the left arm prepped and draped in the usual sterile fashion. Ultrasound showed a patent and compressible left basilic vein. After the skin was anesthetized with lidocaine, the basilic vein was accessed with micro micropuncture technique using ultrasound guidance. A guidewire was then advanced under fluoroscopic guidance into the superior vena cava. An image documenting ultrasound guidance for vascular access was permanently saved. The length of a single-lumen 5 [place] PICC was trimmed to 45 cm and advanced through a peel-away sheath. The PICC was position with tip of PICC confirm a spot radiograph the superior vena cava. The PICC was secured to the patient's skin. The PICC was flushed. A biopatch and sterile dressing was applied. IMPRESSION: Placement of a single-lumen 5 [place] PICC left basilic vein trimmed to 45 cm. The tip of the PICC is confirmed with spot radiograph and is in the superior vena cava.
--- NOTE | 2017-09-17 17:57 | CP.PCM.PN ---
Subjective - Date & Time of Evaluation Date of Evaluation: 09/17/17 Time of Evaluation: 07:00 - Subjective Subjective: s/p left leg wound debridement and allograft sfebrile NAD Objective - Vital Signs/Intake and Output Vital Signs (last 24 hours): Temp Pulse Resp BP Pulse Ox 97.8 F 68 20 131/84 97 09/17/17 16:28 09/17/17 16:28 09/17/17 16:28 09/17/17 16:28 09/17/17 16:28 Intake and Output: 09/17/17 09/17/17 06:59 18:59 Intake Total 450 Output Total 700 Balance -250 - Medications Medications: Current Medications Acetaminophen (Tylenol 325mg Tab) 650 mg PO Q6 PRN PRN Reason: Headache Last Admin: 09/17/17 14:32 Dose: 650 mg Docusate Sodium (Colace) 100 mg PO DAILY [facility] Last Admin: 09/17/17 09:23 Dose: 100 mg Furosemide (Lasix) 40 mg PO BID [facility] Last Admin: 09/17/17 09:24 Dose: 40 mg Cefazolin Sodium 500 mg/ (Sodium Chloride) 100 mls @ 100 mls/hr IVPB Q8H [facility] Last Admin: 09/17/17 11:02 Dose: 100 mls/hr Insulin Human Regular (Novolin R) 0 unit SC ACHS [facility] PRN Reason: Protocol Last Admin: 09/17/17 17:02 Dose: Not Given Levothyroxine Sodium (Synthroid) 75 mcg PO 0630 [facility] Last Admin: 09/17/17 06:22 Dose: 75 mcg Metformin HCl (Glucophage Xr) 500 mg PO BID [facility] Last Admin: 09/17/17 09:20 Dose: 500 mg Montelukast Sodium (Singulair) 10 mg PO HS [facility] Last Admin: 09/16/17 21:21 Dose: 10 mg Oxycodone HCl (Oxycontin Extended Release Tab) 80 mg PO Q6H [facility] Last Admin: 09/17/17 14:32 Dose: 80 mg Oxycodone HCl (Oxycodone Immediate Release Tab) 15 mg PO Q4H PRN PRN Reason: Pain, moderate (4-7) Last Admin: 09/17/17 16:22 Dose: 15 mg Pantoprazole Sodium (Protonix Ec Tab) 40 mg PO DAILY [facility] Last Admin: 09/17/17 09:24 Dose: 40 mg Potassium Chloride (K-Dur 20 Meq Er Tab) 20 meq PO DAILY [facility] Last Admin: 09/17/17 09:23 Dose: 20 meq Fluticasone/Salmeterol (Advair Diskus 250/50) 1 puff IH RQ12 [facility] Last Admin: 09/17/17 07:45 Dose: 1 puff Sitagliptin Phosphate (Januvia) 50 mg PO DAILY [facility] Last Admin: 09/17/17 09:23 Dose: 50 mg Trazodone HCl (Desyrel) 50 mg PO HS [facility] Last Admin: 09/16/17 21:22 Dose: Not Given Warfarin Sodium (Coumadin) 10 mg PO 1800 [facility] Stop: 09/17/17 18:01 - Labs Labs: 09/16/17 08:36 09/16/17 08:36 PT 14.0 SECONDS (9.7-12.2) H 09/17/17 11:24 INR 1.2 09/17/17 11:24 APTT 38 SECONDS (21-34) H 09/15/17 14:58 - Constitutional Appears: Non-toxic, Chronically Ill - Head Exam Head Exam: NORMOCEPHALIC - Eye Exam Eye Exam: PERRL. absent: Scleral icterus - ENT Exam ENT Exam: Mucous Membranes Dry - Neck Exam Neck Exam: absent: Lymphadenopathy - Respiratory Exam Respiratory Exam: Decreased Breath Sounds, Clear to Ausculation Bilateral - Cardiovascular Exam Cardiovascular Exam: REGULAR RHYTHM - GI/Abdominal Exam GI & Abdominal Exam: Distended, Soft. absent: Tenderness - Rectal Exam Rectal Exam: Deferred - Exam Exam: NORMAL INSPECTION - Extremities Exam Extremities Exam: absent: Pedal Edema - Back Exam Back Exam: absent: CVA tenderness (L), CVA tenderness (R) - Neurological Exam Neurological Exam: Alert, Awake - Psychiatric Exam Psychiatric exam: Normal Mood - Skin Skin Exam: Dry Assessment and Plan (1) Cellulitis Status: Acute (2) Leg ulcer, left Status: Chronic (3) Acute renal failure (ARF) Status: Acute (4) Altered mental status Status: Acute (5) Anxiety disorder due to general medical condition Status: Acute (6) Cellulitis Status: Acute (7) Decubitus ulcer Status: Acute (8) ANTONIA (generalized anxiety disorder) Status: Acute - Assessment and Plan (Free Text) Assessment: await or cultures cont IV antibiotics
--- NOTE | 2017-09-17 23:10 | CP.PCM.DIS ---
Provider - Provider Date of Admission: 09/15/17 16:42 Attending physician: Estrada Albright MD Time Spent in preparation of Discharge (in minutes): 45 Diagnosis - Discharge Diagnosis (1) Cellulitis Status: Acute (2) Leg ulcer, left Status: Chronic (3) ANTONIA (generalized anxiety disorder) Status: Acute (4) Morbid obesity Status: Acute (5) Obstructive sleep apnea Status: Acute (6) Stasis ulcer of right lower extremity Status: Acute Hospital Course - Lab Results Lab Results: Most Recent Lab Values WBC 6.9 K/uL (4.8-10.8) 09/16/17 08:36 RBC 3.86 Mil/uL (4.40-5.90) L 09/16/17 08:36 Hgb 10.4 g/dL (12.0-18.0) L 09/16/17 08:36 Hct 31.7 % (35.0-51.0) L 09/16/17 08:36 MCV 82.3 fL (80.0-94.0) 09/16/17 08:36 MCH 27.0 pg (27.0-31.0) 09/16/17 08:36 MCHC 32.8 g/dL (33.0-37.0) L 09/16/17 08:36 RDW 14.8 % (11.5-14.5) H 09/16/17 08:36 Plt Count 181 K/uL (130-400) 09/16/17 08:36 MPV 10.6 fL (7.2-11.7) 09/16/17 08:36 Neut % (Auto) 67.6 % (50.0-75.0) 09/16/17 08:36 Lymph % (Auto) 20.8 % (20.0-40.0) 09/16/17 08:36 [place] % (Auto) 6.6 % (0.0-10.0) 09/16/17 08:36 Eos % (Auto) 4.1 % (0.0-4.0) H 09/16/17 08:36 Baso % (Auto) 0.9 % (0.0-2.0) 09/16/17 08:36 Neut # 4.6 K/uL (1.8-7.0) 09/16/17 08:36 Lymph # 1.4 K/uL (1.0-4.3) 09/16/17 08:36 [place] # 0.5 K/uL (0.0-0.8) 09/16/17 08:36 Eos # 0.3 K/uL (0.0-0.7) 09/16/17 08:36 Baso # 0.1 K/uL (0.0-0.2) 09/16/17 08:36 PT 14.0 SECONDS (9.7-12.2) H 09/17/17 11:24 INR 1.2 09/17/17 11:24 APTT 38 SECONDS (21-34) H 09/15/17 14:58 Sodium 134 mmol/L (132-148) 09/16/17 08:36 Potassium 3.8 mmol/L (3.6-5.2) 09/16/17 08:36 Chloride 92 mmol/L (98-107) L 09/16/17 08:36 Carbon Dioxide 31 mmol/L (22-30) H 09/16/17 08:36 Anion Gap 15 (10-20) 09/16/17 08:36 BUN 44 mg/dL (9-20) H 09/16/17 08:36 Creatinine 1.7 mg/dL (0.8-1.5) H 09/16/17 08:36 Est GFR ( Amer) 51 09/16/17 08:36 Est GFR (Non-Af Amer) 42 09/16/17 08:36 POC Glucose (mg/dL) 92 mg/dL (65-110) 09/17/17 16:40 Random Glucose 111 mg/dL (75-110) H 09/16/17 08:36 Calcium 9.2 mg/dl (8.6-10.4) 09/16/17 08:36 Total Bilirubin 0.9 mg/dL (0.2-1.3) 09/15/17 14:58 AST 30 U/L (17-59) 09/15/17 14:58 ALT 17 U/L (21-72) L D 09/15/17 14:58 Alkaline Phosphatase 186 U/L (38-126) H 09/15/17 14:58 Total Protein 9.8 g/dL (6.3-8.3) H 09/15/17 14:58 Albumin 4.2 g/dL (3.5-5.0) 09/15/17 14:58 Globulin 5.5 gm/dL (2.2-3.9) H 09/15/17 14:58 Albumin/Globulin Ratio 0.8 (1.0-2.1) L 09/15/17 14:58 - Hospital Course Hospital Course: A/P 57 yr old mal e admitted from rehab for wound debridement for non healing ulcer on Left LE s/p Left leg wound debridement with application of Alloderm s/p picc line placement today D/W with Dr. bhandari , continue 7 more days of IV antibiotics and Dr. Laguna needs to evaluate wound for continuation of antibiotics seen by me, stable for discharge back to [facility] today and I will follow the patient at [facility] Discharge Exam - Head Exam Head Exam: NORMOCEPHALIC - Eye Exam Eye Exam: EOMI, Normal appearance, PERRL Pupil Exam: NORMAL ACCOMODATION, PERRL - Respiratory Exam Respiratory Exam: Clear to PA & Lateral, NORMAL BREATHING PATTERN - Cardiovascular Exam Cardiovascular Exam: REGULAR RHYTHM, +S1, +S2 - GI/Abdominal Exam GI & Abdominal Exam: Normal Bowel Sounds - Rectal Exam Rectal Exam: Deferred Discharge Plan - Follow Up Plan Condition: GOOD Disposition: REHAB FACILITY/REHAB UNIT Instructions: Heart Failure (DC), Cellulitis (DC) Additional Instructions: PLEASE CALL DR. ALBRIGHT UPON PATIENT ARRIVAL TO THE FACILITY CALL DR. LAGUNA FOR PODIATRY CONSULT PLEASE DO NOT CHAGE DRESSING TO THE LEFT LEG FOR A WEEK (SHOULD BE CHANGED BY DR. LAGUNA) CONTINUE ANTIBIOTICS FOR 1 WEEK AND EVALUATE BY DR. LAGUNA FOR CONTINUATION OF ANTIBIOTICS CBC, BMP , AND PT /INR Q 3 DAYS STARTING THURSDAY CONTINUE MEDICATION PER MED. REC. please start coumadin tmw - todays dose given Referrals: Estrada Albright MD [Staff Provider] -
--- NOTE | 2017-09-26 04:26 | OP ---
PROCEDURE DATE: 09/16/2017 SURGEON: Casey Laguna DPM PANEL MONITOR: Huey Chaparro DPM, PGY-1 PHARMACY DIRECTOR: Dr. Herbert. TYPE OF ANESTHESIA: General. PREOPERATIVE DIAGNOSIS: Left lower extremity venostasis ulceration. POSTOPERATIVE DIAGNOSIS: Left lower extremity venostasis ulceration. NAME OF PROCEDURE: Left leg wound debridement with application of AlloDerm. INDICATION: The patient is a 57-year-old male with the above diagnosis. The patient has exhausted all conservative treatment and this time complains of persistent pain to his left leg secondary to venostasis ulceration formation, has difficulty with ambulation and ulcerations, remain nonhealing. The patient now requests surgical intervention. The patient signed the consent after careful explanation of risks, benefits, complications and alternatives for surgical procedure and wishes to proceed. No guarantees were given nor implied. PREPARATION: The patient was brought into the operating room and placed on the operating room table in a supine position. A time-out was performed for identification of the correct patient and procedure. After induction of general anesthesia, the left lower extremity was prepped and draped in normal sterile manner and the procedure began. DESCRIPTION OF THE PROCEDURE: Attention was directed to the left leg, where several superficial venostasis ulcerations were noted circumferentially extending from the tibial tuberosity down to the ankle joints. The left posterior distal half of the leg superficial ulceration measured approximately 13 x 6.3 cm with minor sanguineous drainage noted with 100% granular base with moderate shital-wound laceration. Anterior leg stable scabs were noted. Next, utilizing a pulse lavage of 3 L of normal saline, the superficial ulcerations were irrigated until healthy active bleeding appeared. Next, an AlloDerm Regenerative Tissue Matrix measuring 4 x 12 cm was applied over the ulceration. A 4 x 12 AlloDerm was used along with 10 x 16 allograft was used as well. The allograft covered the 100% of the superficial ulceration and were adhered to healthy skin using Mastisol. The surgical site was then dressed with Xeroform, sterile gauze, ABDs, and Kerlix. POSTOPERATIVE CONDITION: The patient tolerated the anesthesia and procedure well and was escorted to the recovery room with vital signs stable and neurovascular status intact to the left lower extremity. The patient will be seen and followed by Dr. Laguna while the patient remains in the hospital. The allograft will remain on the left lower extremity for 1 week. Huey Chaparro DPM Casey Laguna DPM, M.D.
== END 2017-09-17 20:07 | DRG 574 ==
LOC: C.ER 13:05 → C.9E 16:42 → C.3T 17:11
PROVIDERS: ADMIT Internal Medicine; ATTEND Internal Medicine
PROC: 0HRLXK3 Replacement of Left Lower Leg Skin with Nonautologous Tissue Substitute, Full Thickness, External Approach (ICD-10-PCS; 2017-09-16)
PROC: 0HBLXZZ Excision of Left Lower Leg Skin, External Approach (ICD-10-PCS; 2017-09-16)
PROC: 0HRLXK3 Replacement of Left Lower Leg Skin with Nonautologous Tissue Substitute, Full Thickness, External Approach (ICD-10-PCS; 2017-09-16)
PROC: 02HV33Z Insertion of Infusion Device into Superior Vena Cava, Percutaneous Approach (ICD-10-PCS; principal; 2017-09-17)
DX: L97.929 Non-pressure chronic ulcer of unspecified part of left lower leg with unspecified severity (principal); I13.0 Hypertensive heart and chronic kidney disease with heart failure and stage 1 through stage 4 chronic kidney disease, or unspecified chronic kidney disease; E11.22 Type 2 diabetes mellitus with diabetic chronic kidney disease; E11.622 Type 2 diabetes mellitus with other skin ulcer; I50.9 Heart failure, unspecified; L03.116 Cellulitis of left lower limb; L97.919 Non-pressure chronic ulcer of unspecified part of right lower leg with unspecified severity; E66.01 Morbid (severe) obesity due to excess calories; E03.9 Hypothyroidism, unspecified; E78.00 Pure hypercholesterolemia, unspecified; F41.1 Generalized anxiety disorder; G47.33 Obstructive sleep apnea (adult) (pediatric); I25.10 Atherosclerotic heart disease of native coronary artery without angina pectoris; M79.7 Fibromyalgia; J44.9 Chronic obstructive pulmonary disease, unspecified; K21.9 Gastro-esophageal reflux disease without esophagitis; N18.9 Chronic kidney disease, unspecified; Z96.653 Presence of artificial knee joint, bilateral; Z86.711 Personal history of pulmonary embolism; Z87.01 Personal history of pneumonia (recurrent)

== ENCOUNTER 2018-01-17 08:25 | Inpatient (IN) | payer MEDICARE ==
[2018-01-17 08:26] VITALS: BMI 54.8
[2018-01-17] MEDS ORDERED: Oxycodone/Acetaminophen 5/325 mg Tab PO STA (08:53)
[2018-01-17] MEDS ORDERED: oxyCODONE 80 mg ER Tab (oxyCONTIN) PO STA (08:53)
[2018-01-17] MEDS ORDERED: Sodium Chloride 0.9% 1,000 ML IV STA (08:53)
--- NOTE | 2018-01-17 09:01 | C.PDOC ---
History Of Present Illness 57 y/o M c PMHx chronic leg ulcers p/w worsening ulcer pain, erythema, and drainage with foul odor from wounds since last night. Reports subjective fevers 2 days ago. Denies dyspnea, vomiting, abdominal pain, chest pain. Time Seen by Provider: 01/17/18 08:35 Chief Complaint (Nursing): Wound Check Past Medical History Vital Signs: Last Vital Signs Temp 97.5 F L 01/17/18 08:41 Pulse 87 01/17/18 08:41 Resp 18 01/17/18 08:41 BP 133/84 01/17/18 08:41 Pulse Ox 98 01/17/18 12:39 - Medical History PMH: Arthritis, Asthma, Back Problems, CAD, CHF, COPD, Depression, Diabetes, Deep Vein Thrombosis, Fibromyalgia, Fractures, HTN, Hypercholesterolemia, Hyperthyroidism, Hypothyroidism, Peripheral Edema (+3 pitting ble), Pneumonia, Pulmonary Embolism, Chronic Kidney Disease (required HD in 2016 briefly), Sleep Apnea, Chronic Pain Surgical History: - [facility] Procedures ASSISTANCE WITH RESPIRATORY VENTILATION, >96 HRS, CPAP (09/04/16) BATHING/SHOWERING TECHNIQUES TREATMENT (07/29/17) CENTRAL VENOUS CATHETER PLACEMENT WITH GUIDANCE (07/08/15) CLOSED ENDOSCOPIC BIOPSY OF LARGE INTESTINE (03/22/14) CONTIN POS AIRWAY PRESSURE [CPAP] (02/21/07) DERMAL REGENERATIVE GRAFT (06/15/15) DRESSING TECHNIQUES TREATMENT (07/29/17) DX ULTRASOUND-HEART (05/14/06) ENDOSC POLYPECTOMY OF LG INTEST (03/22/14) ENDOSCOPIC BRONCHIAL BX (09/22/04) ESOPHAGOGASTRODUODENOSCOPY [EGD] W/CLOSED BIOPSY (03/22/14) EXCIS DEBRIDE OF WOUND, INFECT, OR BURN (06/15/15) EXCISION OF LEFT LOWER LEG SKIN, EXTERNAL APPROACH (09/15/17) GAIT TRAINING/AMBULAT TREATMENT USING ASSIST EQUIPMENT (07/29/17) HETEROGRAFT TO SKIN (10/29/14) HOME MANAGEMENT TREATMENT (07/29/17) INJECT ANTIBIOTIC (05/29/06) INJECT ANTICOAGULANT (11/17/04) INJECT/INFUSE NEC (03/22/14) INSERTION OF INFUSION DEV INTO SUP VENA CAVA, PERC APPROACH (09/15/17) INSPECTION OF BLADDER, ENDO (06/22/16) INTRODUCE OF OTH THERAP SUBST INTO RESP TRACT, VIA OPENING (04/06/16) NEBULIZER THERAPY (09/18/14) NON-INVASIVE MECHANICAL VENTILATION (08/13/12) NONEXCIS DEBRID OF WOUND, INFECT, OR BURN (10/09/14) OCCUPATIONAL THERAPY (03/17/14) PERFORMANCE OF URINARY FILTRATION, MULTIPLE (09/04/16) PHYSICAL THERAPY NEC (03/17/14) REPLACE L LOW LEG SKIN W NONAUT SUB, FULL THICK, CAREER DEVELOPMENT SPECIALIST (09/15/17) TRANSFUSE NONAUT FROZEN PLASMA IN PERIPH VEIN, PERC (09/04/16) VENOUS CATHETERIZATION NEC (04/25/15) Family History: States: Unknown Family Hx - Social History Hx Tobacco Use: No Hx Alcohol Use: No Hx Substance Use: No - Immunization History Hx Tetanus Toxoid Vaccination: No Hx Influenza Vaccination: Yes Hx Pneumococcal Vaccination: Yes (3 yrs ago) Review Of Systems Except As Marked, All Systems Reviewed And Found Negative. Constitutional: Negative for: Fever Respiratory: Negative for: Shortness of Breath Physical Exam - Physical Exam Additional Physical Exam Comments: Appears: Non-toxic, No Acute Distress Skin: Warm, Dry Head: Atraumatic, Normacephalic Eye(s): bilateral: Normal Inspection, PERRL, EOMI Oral Mucosa: Moist Neck: Normal ROM, Supple Chest: Symmetrical, No Deformity Cardiovascular: Rhythm Regular, No Friction Rub, No Murmur Respiratory: No Rales, No Rhonchi, No Wheezing, Other (clear to auscultation bilaterally ) Gastrointestinal/Abdominal: Soft, No Tenderness, No Guarding, No Rebound Extremity: Normal ROM, Other (Large ulcer to left leg with drainage. Multiple chronic small ulcers to right leg. ) Pulses: Left Dorsalis Pedis: Normal, Right Dorsalis Pedis: Normal Neurological/Psych: Oriented x3, Normal Motor, Normal Sensation Gait: Steady ED Course And Treatment - Laboratory Results Result Diagrams: 01/17/18 11:40 01/17/18 11:40 O2 Sat by Pulse Oximetry: 98 Medical Decision Making Medical Decision Making: Start antibiotics, home dose pain medication, fluids, will call Dr. Albright for admission. Disposition Discussed With : Estrada Albright Doctor Will See Patient In The: Hospital - Disposition Disposition: HOSPITALIZED Disposition Time: 12:39 Condition: GUARDED Forms: [employer] (Mongolian) - Clinical Impression Clinical Impression: Cellulitis, Infected ulcer of skin
[2018-01-17] MEDS ORDERED: oxyCODONE 80 mg ER Tab (oxyCONTIN) PO ONE ×2 (09:12→20:27)
[2018-01-17] MEDS ORDERED: Oxycodone/Acetaminophen 5/325 mg Tab ONE ×3 (09:13→21:00)
[2018-01-17] MEDS ORDERED: Sodium Chloride 0.9% 1,000 ML ONE (09:13)
[2018-01-17] MEDS ORDERED: Vancomycin 1 gm/NS 200 ml 1 GM/200 ML BAG IVPB ONE (10:00)
--- NOTE | 2018-01-17 10:03 | RAD ---
HISTORY: cellulitis of legs COMPARISON: Comparison is made with 08/30/2017 FINDINGS: LUNGS: No evidence of new infiltrate or consolidation in the lungs. PLEURA: No significant pleural effusion identified, no pneumothorax apparent. CARDIOVASCULAR: Normal. OSSEOUS STRUCTURES: No significant abnormalities. VISUALIZED UPPER ABDOMEN: Normal. OTHER FINDINGS: None. IMPRESSION: No active disease.
[2018-01-17 11:53] LABS: BASO # 0.1 K/uL (0.0-0.2); BASO % 0.6 % (0.0-2.0); EOS # 0.2 K/uL (0.0-0.7); EOS % 1.6 % (0.0-4.0); HEMOGLOBIN 10.9 g/dL (12.0-18.0); LYMPH # 0.7 K/uL (1.0-4.3); LYMPH % 6.8 % (20.0-40.0); MEAN CORPUSCULAR HEMOGLOBIN 26.2 pg (27.0-31.0); MEAN CORPUSCULAR HGB CONC 33.4 g/dL (33.0-37.0); MEAN PLATELET VOLUME 9.3 fL (7.2-11.7); MONO # 0.5 K/uL (0.0-0.8); MONO % 5.1 % (0.0-10.0); NEUT # 8.6 K/uL (1.8-7.0); NEUT % 85.9 % (50.0-75.0); NRBC % 0.1 % (0.0-2.0); PLATELET COUNT 194 K/uL (130-400); RBC 4.14 Mil/uL (4.40-5.90); RED CELL DISTRIBUTION WIDTH 14.6 % (11.5-14.5)
[2018-01-17 11:55] LABS: MEAN CELL VOLUME 78.5 fL (80.0-94.0)
[2018-01-17 12:01] LABS: INR 1.9; PROTHROMBIN TIME 21.9 SECONDS (9.7-12.2)
[2018-01-17 12:16] LABS: ALB/GLOB RATIO 0.8 (1.0-2.1); ALBUMIN 3.6 g/dL (3.5-5.0); ALT/SGPT 17 U/L (21-72); AST/SGOT 23 U/L (17-59); BLOOD UREA NITROGEN 15 mg/dL (9-20); CALCIUM 9.3 mg/dl (8.6-10.4); GFR AFRICAN-AMERICAN > 60; GFR NON-AFRICAN AMERICAN > 60
[2018-01-17 12:58] LABS: URINE BILIRUBIN NEGATIVE (NEGATIVE); URINE BLOOD NEGATIVE (NEGATIVE); URINE CLARITY Clear (Clear); URINE COLOR Yellow (YELLOW); URINE GLUCOSE (UA) NORMAL (Normal); URINE LEUKOCYTE ESTERASE NEG Leu/uL (Negative); URINE NITRATE NEGATIVE (NEGATIVE); URINE PROTEIN 1+ mg/dL (NEGATIVE)
[2018-01-17 14:01] LABS: ANISOCYTOSIS SLIGHT; BANDS 4 % (0-2); EOSINOPHIL 1 % (0-4); LYMPHOCYTE 4 % (20-40); MONOCYTE 5 % (0-10); NEUTROPHIL 84 % (50-75); PLATELET ESTIMATE NORMAL (NORMAL); REACTIVE LYMPHOCYTES 2 % (0-0); TOTAL CELLS COUNTED 100
[2018-01-17 14:02] LABS: POLYCHROMIC SLIGHT
[2018-01-17] MEDS ORDERED: oxyCODONE 5 mg Immediate Release Tab PO PRN (14:49)
[2018-01-17] MEDS ORDERED: oxyCODONE 40 mg ER Tab (oxyCONTIN) PO SCH ×2 (15:00→18:00)
--- NOTE | 2018-01-17 15:07 | CP.PCM.CON ---
History of Present Illness - History of Present Illness History of Present Illness: 57 year old male with PMHx of Asthma , CAD, HTN, HLD, Hyperthyroidism/ Hypothyroidism , CHF ,depression, DM, PE, DVT, fibromyalgia, S/P IVC filter was seen on floors for b/l venous stasis ulcerations and cellulitis. Past Patient History - Infectious Disease Hx of Infectious Diseases: None - Tetanus Immunizations Tetanus Immunization: Unknown - Past Medical History & Family History Past Medical History?: Yes - Past Social History Smoking Status: Never Smoked - CARDIAC Hx Congestive Heart Failure: Yes Hx Hypercholesterolemia: Yes Hx Hypertension: Yes Hx Peripheral Edema: Yes (+3 pitting ble) - PULMONARY Hx Asthma: Yes Hx Chronic Obstructive Pulmonary Disease (COPD): Yes Hx Pneumonia: Yes Hx Pulmonary Embolism: Yes Hx Sleep Apnea: Yes - NEUROLOGICAL Hx Neurological Disorder: No - HEENT Hx HEENT Problems: No - RENAL Hx Chronic Kidney Disease: Yes (required HD in 2016 briefly) - ENDOCRINE/METABOLIC Hx Hyperthyroidism: Yes Hx Hypothyroidism: Yes - HEMATOLOGICAL/ONCOLOGICAL Hx Blood Disorders: No - INTEGUMENTARY Hx Dermatological Problems: Yes Other/Comment: both leggs discolored - MUSCULOSKELETAL/RHEUMATOLOGICAL Hx Arthritis: Yes Hx Fractures: Yes - GASTROINTESTINAL Hx Gastrointestinal Disorders: (reflux obese) - GENITOURINARY/GYNECOLOGICAL Hx Reproductive Disorders: No - PSYCHIATRIC Hx Depression: Yes Hx Substance Use: No - SURGICAL HISTORY Hx Surgeries: Yes Hx Orthopedic Surgery: Yes (bilateral knee replacement) Other/Comment: total left knee - 1998. right ankle screws - 1987. right hip shyam - 1982 - ANESTHESIA Hx Anesthesia: Yes Hx Anesthesia Reactions: No Hx Malignant Hyperthermia: No Meds Allergies/Adverse Reactions: Allergies Allergy/AdvReac Type Severity Reaction Status Date / Time No Known Allergies Allergy Verified 01/17/18 08:44 - Medications Medications: Current Medications Acetaminophen (Tylenol 325mg Tab) 650 mg PO Q6 PRN PRN Reason: Headache Docusate Sodium (Colace) 100 mg PO DAILY [facility] Furosemide (Lasix) 40 mg PO BID [facility] Hydralazine HCl (Apresoline) 25 mg PO Q8 [facility] Sodium Chloride (Sodium Chloride 0.9%) 1,000 mls @ 75 mls/hr IV .[id number] [facility] Stop: 01/17/18 22:12 Last Admin: 01/17/18 13:06 Dose: 75 mls/hr Piperacillin Sod/Tazobactam Sod (Zosyn 3.375 Gm Iv Premix) 3.375 gm in 50 mls @ 100 mls/hr IVPB Q6H [facility] Vancomycin HCl 1,000 mg/ (Sodium Chloride) 250 mls @ 166.6 mls/hr IVPB Q12H [facility] Insulin Human Regular (Novolin R) 0 unit SC ACHS [facility] PRN Reason: Protocol Levothyroxine Sodium (Synthroid) 75 mcg PO 0630 [facility] Metformin HCl (Glucophage Xr) 500 mg PO BID [facility] Montelukast Sodium (Singulair) 10 mg PO HS [facility] Multivitamins (Hexavitamin) 1 tab PO DAILY [facility] Oxycodone HCl (Oxycodone Immediate Release Tab) 15 mg PO Q4H PRN PRN Reason: Pain, moderate (4-7) Oxycodone HCl (Oxycontin Extended Release Tab) 80 mg PO Q8 [facility] Pantoprazole Sodium (Protonix Ec Tab) 40 mg PO DAILY [facility] Potassium Chloride (K-Dur 20 Meq Er Tab) 20 meq PO DAILY [facility] Fluticasone/Salmeterol (Advair Diskus 250/50) 1 puff IH RQ12 [facility] Sitagliptin Phosphate (Januvia) 50 mg PO DAILY [facility] Warfarin Sodium (Coumadin) 10 mg PO 1800 [facility] Zolpidem Tartrate (Ambien) 5 mg PO HS PRN PRN Reason: Insomnia Results - Vital Signs Recent Vital Signs: Last Vital Signs Temp 98.7 F 01/17/18 14:33 Pulse 86 01/17/18 14:33 Resp 18 01/17/18 14:33 BP 138/81 01/17/18 14:33 Pulse Ox 99 01/17/18 14:33 - Labs Result Diagrams: 01/17/18 11:40 01/17/18 11:40 Labs: Laboratory Results - last 24 hr 01/17/18 01/17/18 01/17/18 11:40 11:40 11:40 WBC 10.0 RBC 4.14 L Hgb 10.9 L Hct 32.5 L MCV 78.5 L D MCH 26.2 L MCHC 33.4 RDW 14.6 H Plt Count 194 MPV 9.3 Neut % (Auto) 85.9 H Lymph % (Auto) 6.8 L [place] % (Auto) 5.1 Eos % (Auto) 1.6 Baso % (Auto) 0.6 Neut # (Auto) 8.6 H Lymph # (Auto) 0.7 L [place] # (Auto) 0.5 Eos # (Auto) 0.2 Baso # (Auto) 0.1 Neutrophils % (Manual) 84 H Band Neutrophils % 4 H Lymphocytes % (Manual) 4 L Reactive Lymphs % 2 H Monocytes % (Manual) 5 Eosinophils % (Manual) 1 Platelet Estimate Normal Polychromasia Slight Anisocytosis (manual) Slight ESR 110 H PT INR APTT Sodium 134 Potassium 4.2 Chloride 94 L Carbon Dioxide 32 H Anion Gap 12 BUN 15 Creatinine 1.0 Est GFR ( Amer) > 60 Est GFR (Non-Af Amer) > 60 Random Glucose 134 H Calcium 9.3 Total Bilirubin 0.7 AST 23 ALT 17 L Alkaline Phosphatase 143 H D C-React Prot High Sens > 15.00 H Total Protein 7.9 Albumin 3.6 Globulin 4.3 H Albumin/Globulin Ratio 0.8 L Urine Color Urine Clarity Urine pH Ur Specific [place] Urine Protein Urine Glucose (UA) Urine Ketones Urine Blood Urine Nitrate Urine Bilirubin Urine Urobilinogen Ur Leukocyte Esterase Urine WBC (Auto) Urine RBC (Auto) Blood Type Antibody Screen 01/17/18 01/17/18 01/17/18 11:40 11:40 12:45 WBC RBC Hgb Hct MCV MCH MCHC RDW Plt Count MPV Neut % (Auto) Lymph % (Auto) [place] % (Auto) Eos % (Auto) Baso % (Auto) Neut # (Auto) Lymph # (Auto) [place] # (Auto) Eos # (Auto) Baso # (Auto) Neutrophils % (Manual) Band Neutrophils % Lymphocytes % (Manual) Reactive Lymphs % Monocytes % (Manual) Eosinophils % (Manual) Platelet Estimate Polychromasia Anisocytosis (manual) ESR PT 21.9 H INR 1.9 APTT 35 H Sodium Potassium Chloride Carbon Dioxide Anion Gap BUN Creatinine Est GFR ( Amer) Est GFR (Non-Af Amer) Random Glucose Calcium Total Bilirubin AST ALT Alkaline Phosphatase C-React Prot High Sens Total Protein Albumin Globulin Albumin/Globulin Ratio Urine Color Yellow Urine Clarity Clear Urine pH 8.0 Ur Specific [place] 1.015 Urine Protein 1+ H Urine Glucose (UA) Normal Urine Ketones Trace Urine Blood Negative Urine Nitrate Negative Urine Bilirubin Negative Urine Urobilinogen 2.0 Ur Leukocyte Esterase Neg Urine WBC (Auto) 1 Urine RBC (Auto) < 1 Blood Type B POSITIVE Antibody Screen Negative
[2018-01-17] MEDS: Vancomycin 1 gm/NS 200 ml 1 GM/200 ML BAG IVPB SCH (15:23)
[2018-01-17] MEDS: Piperacill/Tazo 3.375gm in Dex 3.375 GM/50 ML BAG IVPB SCH ×2 (15:25→20:43)
[2018-01-17] MEDS: (Novolin R) Insulin Human Regular 100 units/ml vial SC SCH ×2 (17:43→22:04)
[2018-01-17] MEDS: Oxycodone/Acetaminophen 5/325 mg Tab PO PRN (21:00)
[2018-01-17] MEDS: oxyCODONE 40 mg ER Tab (oxyCONTIN) PO SCH (21:00)
--- NOTE | 2018-01-17 22:24 | CP.PCM.HP ---
History of Present Illness - History of Present Illness History of Present Illness: CC: b/l LE pain venous stasis ulcerations and cellulitis. HPI: 57 year old male with PMHx including Asthma,CAD, HTN, HLD, Hyperthyroidism/ Hypothyroidism, CHF,depression, DM, PE, DVT, fibromyalgia, S/P IVC filter was seen on floors for b/l venous stasis ulcerations with attending, Dr Laguna. Patient states that he has a history of b/l leg wounds of this type and has been seen by Dr. Laguna in the past for treatment as well as Dr. Roach and Dr. Madison at [facility]. Patient states that his left lower extremity ulceration have become worse and has a bad odor. Patient states that his dressings are soaked and he has a lot of pain on his front and back of his leg. He admits that he does not feel well and has chills but denies n/v/f/sob/cp. Present on Admission - Present on Admission Any Indicators Present on Admission: No Past Patient History - Infectious Disease Hx of Infectious Diseases: None - Tetanus Immunizations Tetanus Immunization: Unknown - Past Medical History & Family History Past Medical History?: Yes - Past Social History Smoking Status: Never Smoked - CARDIAC Hx Congestive Heart Failure: Yes Hx Hypercholesterolemia: Yes Hx Hypertension: Yes Hx Peripheral Edema: Yes (+3 pitting ble) - PULMONARY Hx Asthma: Yes Hx Chronic Obstructive Pulmonary Disease (COPD): Yes Hx Pneumonia: Yes Hx Pulmonary Embolism: Yes Hx Sleep Apnea: Yes - NEUROLOGICAL Hx Neurological Disorder: No - HEENT Hx HEENT Problems: No - RENAL Hx Chronic Kidney Disease: Yes (required HD in 2016 briefly) - ENDOCRINE/METABOLIC Hx Hyperthyroidism: Yes Hx Hypothyroidism: Yes - HEMATOLOGICAL/ONCOLOGICAL Hx Blood Disorders: No - INTEGUMENTARY Hx Dermatological Problems: Yes Other/Comment: both leggs discolored - MUSCULOSKELETAL/RHEUMATOLOGICAL Hx Arthritis: Yes Hx Fractures: Yes - GASTROINTESTINAL Hx Gastrointestinal Disorders: (reflux obese) - GENITOURINARY/GYNECOLOGICAL Hx Reproductive Disorders: No - PSYCHIATRIC Hx Depression: Yes Hx Substance Use: No - SURGICAL HISTORY Hx Surgeries: Yes Hx Orthopedic Surgery: Yes (bilateral knee replacement) Other/Comment: total left knee - 1998. right ankle screws - 1987. right hip shyam - 1982 - ANESTHESIA Hx Anesthesia: Yes Hx Anesthesia Reactions: No Hx Malignant Hyperthermia: No Meds Allergies/Adverse Reactions: Allergies Allergy/AdvReac Type Severity Reaction Status Date / Time No Known Allergies Allergy Verified 01/17/18 08:44 Physical Exam - Constitutional Appears: No Acute Distress, Chronically Ill - Eye Exam Eye Exam: EOMI, Normal appearance, PERRL Pupil Exam: NORMAL ACCOMODATION, PERRL - Respiratory Exam Respiratory Exam: Decreased Breath Sounds, Rhonchi - Cardiovascular Exam Cardiovascular Exam: REGULAR RHYTHM - GI/Abdominal Exam GI & Abdominal Exam: Normal Bowel Sounds, Soft. absent: Tenderness - Extremities Exam Additional comments: Left lower extremity focused exam: strikethough noted to dressings Vasc: Non-palpable pedal pulses due to edema b/l, TG warm to warm, CFT < 3 sec to all digits, +1 pitting edema Derm: +1 pitting edema to legs bilateral, localized erythema to mid-calf bilateral. Left: multiple open ulcerations noted to the to Anterior and lateral and posterior aspect of the left leg circumferentally, with active serous drainage, wound base is granular/fibrotic base with patches of necrotic tissue, with shital-wound macerations. Mild amount of purulence, moderate amount of serosanginous drainage noted, moderate malodor noted. Neuro: sensation grossly diminished MUSC: pain on palpation of posterior and medial legs b/l - Neurological Exam Neurological exam: Alert, Oriented x3 Results - Vital Signs Recent Vital Signs: Last Vital Signs Temp 98.4 F 01/17/18 21:48 Pulse 78 01/17/18 21:48 Resp 18 01/17/18 21:48 BP 111/69 01/17/18 21:48 Pulse Ox 97 01/17/18 21:48 - Labs Result Diagrams: 01/26/18 07:04 01/26/18 07:04 Labs: Laboratory Results - last 24 hr 01/17/18 01/17/18 01/17/18 11:40 11:40 11:40 WBC 10.0 RBC 4.14 L Hgb 10.9 L Hct 32.5 L MCV 78.5 L D MCH 26.2 L MCHC 33.4 RDW 14.6 H Plt Count 194 MPV 9.3 Neut % (Auto) 85.9 H Lymph % (Auto) 6.8 L Cloud % (Auto) 5.1 Eos % (Auto) 1.6 Baso % (Auto) 0.6 Neut # (Auto) 8.6 H Lymph # (Auto) 0.7 L Cloud # (Auto) 0.5 Eos # (Auto) 0.2 Baso # (Auto) 0.1 Neutrophils % (Manual) 84 H Band Neutrophils % 4 H Lymphocytes % (Manual) 4 L Reactive Lymphs % 2 H Monocytes % (Manual) 5 Eosinophils % (Manual) 1 Platelet Estimate Normal Polychromasia Slight Anisocytosis (manual) Slight ESR 110 H PT INR APTT Sodium 134 Potassium 4.2 Chloride 94 L Carbon Dioxide 32 H Anion Gap 12 BUN 15 Creatinine 1.0 Est GFR ( Amer) > 60 Est GFR (Non-Af Amer) > 60 POC Glucose (mg/dL) Random Glucose 134 H Calcium 9.3 Total Bilirubin 0.7 AST 23 ALT 17 L Alkaline Phosphatase 143 H D C-React Prot High Sens > 15.00 H Total Protein 7.9 Albumin 3.6 Globulin 4.3 H Albumin/Globulin Ratio 0.8 L Urine Color Urine Clarity Urine pH Ur Specific [place] Urine Protein Urine Glucose (UA) Urine Ketones Urine Blood Urine Nitrate Urine Bilirubin Urine Urobilinogen Ur Leukocyte Esterase Urine WBC (Auto) Urine RBC (Auto) Blood Type Antibody Screen 01/17/18 01/17/18 01/17/18 11:40 11:40 12:45 WBC RBC Hgb Hct MCV MCH MCHC RDW Plt Count MPV Neut % (Auto) Lymph % (Auto) Cloud % (Auto) Eos % (Auto) Baso % (Auto) Neut # (Auto) Lymph # (Auto) Cloud # (Auto) Eos # (Auto) Baso # (Auto) Neutrophils % (Manual) Band Neutrophils % Lymphocytes % (Manual) Reactive Lymphs % Monocytes % (Manual) Eosinophils % (Manual) Platelet Estimate Polychromasia Anisocytosis (manual) ESR PT 21.9 H INR 1.9 APTT 35 H Sodium Potassium Chloride Carbon Dioxide Anion Gap BUN Creatinine Est GFR ( Amer) Est GFR (Non-Af Amer) POC Glucose (mg/dL) Random Glucose Calcium Total Bilirubin AST ALT Alkaline Phosphatase C-React Prot High Sens Total Protein Albumin Globulin Albumin/Globulin Ratio Urine Color Yellow Urine Clarity Clear Urine pH 8.0 Ur Specific [place] 1.015 Urine Protein 1+ H Urine Glucose (UA) Normal Urine Ketones Trace Urine Blood Negative Urine Nitrate Negative Urine Bilirubin Negative Urine Urobilinogen 2.0 Ur Leukocyte Esterase Neg Urine WBC (Auto) 1 Urine RBC (Auto) < 1 Blood Type B POSITIVE Antibody Screen Negative 01/17/18 01/17/18 01/17/18 16:24 17:40 22:03 WBC RBC Hgb Hct MCV MCH MCHC RDW Plt Count MPV Neut % (Auto) Lymph % (Auto) Cloud % (Auto) Eos % (Auto) Baso % (Auto) Neut # (Auto) Lymph # (Auto) Cloud # (Auto) Eos # (Auto) Baso # (Auto) Neutrophils % (Manual) Band Neutrophils % Lymphocytes % (Manual) Reactive Lymphs % Monocytes % (Manual) Eosinophils % (Manual) Platelet Estimate Polychromasia Anisocytosis (manual) ESR PT INR APTT Sodium Potassium Chloride Carbon Dioxide Anion Gap BUN Creatinine Est GFR ( Amer) Est GFR (Non-Af Amer) POC Glucose (mg/dL) 149 H 175 H 147 H Random Glucose Calcium Total Bilirubin AST ALT Alkaline Phosphatase C-React Prot High Sens Total Protein Albumin Globulin Albumin/Globulin Ratio Urine Color Urine Clarity Urine pH Ur Specific [place] Urine Protein Urine Glucose (UA) Urine Ketones Urine Blood Urine Nitrate Urine Bilirubin Urine Urobilinogen Ur Leukocyte Esterase Urine WBC (Auto) Urine RBC (Auto) Blood Type Antibody Screen Assessment & Plan (1) Cellulitis Status: Acute (2) Infected ulcer of skin Status: Acute (3) Cellulitis Status: Acute (4) ANTONIA (generalized anxiety disorder) Status: Acute (5) Obstructive sleep apnea Status: Acute (6) PVD (peripheral vascular disease) Status: Acute (7) Hypertension Status: Chronic Priority: Low (8) Morbid obesity with BMI of 50.0-59.9, adult Status: Chronic
[2018-01-18] MEDS: oxyCODONE 40 mg ER Tab (oxyCONTIN) PO SCH ×4 (03:15→21:09)
[2018-01-18] MEDS: Oxycodone/Acetaminophen 5/325 mg Tab PO PRN ×5 (03:44→22:58)
[2018-01-18] MEDS: Vancomycin 1 gm/NS 200 ml 1 GM/200 ML BAG IVPB SCH ×2 (03:45→15:16)
[2018-01-18] MEDS: Piperacill/Tazo 3.375gm in Dex 3.375 GM/50 ML BAG IVPB SCH ×3 (03:45→15:30)
[2018-01-18] MEDS: Levothyroxine 75 MCG TAB PO SCH (05:45)
[2018-01-18 07:35] LABS: INR 2.3
[2018-01-18 07:36] LABS: PROTHROMBIN TIME 27.1 SECONDS (9.7-12.2)
[2018-01-18] MEDS: (Novolin R) Insulin Human Regular 100 units/ml vial SC SCH ×3 (08:17→21:25)
[2018-01-18] MEDS: Potassium Chloride 20 mEq ER Tab PO SCH (09:05)
[2018-01-18] MEDS: Pantoprazole 40 mg EC Tab PO SCH (09:05)
[2018-01-18] MEDS: Multiple Vitamins Tab PO SCH (09:05)
[2018-01-18] MEDS ORDERED: Enoxaparin 40 mg Syringe SC SCH (10:00)
--- NOTE | 2018-01-18 13:08 | CP.PCM.CON ---
History of Present Illness - History of Present Illness History of Present Illness: 57 year old male presents to the ED for evaluation of left lower leg wound that is weeping serous fluids associated with foul-smelling odor for the past 4 days. Patient states that his visiting nurse advised him to visit a hospital around 2 days ago. Patient has had multiple admissions related to recurrent cellulitis of his lower legs. Patient has been taking Vanomycin, Zosyn, and 80mg Lasix BID. Patient states he has been watching what he drinks and does not have a liquid restrictive diet. Patient denies fever, chills. - Medical History PMH: Arthritis, Asthma, Back Problems, CAD, CHF, COPD, Depression, Diabetes, Deep Vein Thrombosis, Fibromyalgia, Fractures, HTN, Hypercholesterolemia, Hyperthyroidism, Hypothyroidism, Peripheral Edema (+3 pitting ble), Pneumonia, Pulmonary Embolism, Chronic Kidney Disease (required HD in 2016 briefly), Sleep Apnea, Chronic Pain Review of Systems - Constitutional Constitutional: As Per HPI - EENT Eyes: absent: As Per HPI, Blind Spots, Blurred Vision, Change in Vision, Decreased Night Vision, Diplopia, Discharge, Dry Eye, Exophthalmos, Floaters, Irritation, Itchy Eyes, Loss of Peripheral Vision, Pain, Photophobia, Requires Corrective Lenses, Sees Flashes, Spots in Vision, Tunnel Vision, Other Visual Disturbances, Loss of Vision, Other Ears: absent: As Per HPI, Decreased Hearing, Ear Discharge, Ear Pain, Tinnitus, Abnormal Hearing, Disequilibrium, Dizziness, Other Nose/Mouth/Throat: absent: As Per HPI, Epistaxis, Nasal Congestion, Nasal Discharge, Nasal Obstruction, Nasal Trauma, Nose Pain, Post Nasal Drip, Sinus Pain, Sinus Pressure, Bleeding Gums, Change in Voice, Dental Pain, Dry Mouth, Dysphagia, Halitosis, Hoarsness, Lip Swelling, Mouth Lesions, Mouth Pain, Odynophagia, Sore Throat, Throat Swelling, Tongue Swelling, Facial Pain, Neck Pain, Neck Mass, Other - Cardiovascular Cardiovascular: absent: As Per HPI, Acrocyanosis, Chest Pain, Chest Pain at Rest , Chest Pain with Activity, Claudication, Diaphoresis, Dyspnea, Dyspnea on Exertion, Edema, Irregular Heart Rhythm, Pain Radiating to Arm/Neck/Jaw, Leg Edema, Leg Ulcers, Lightheadedness, Orthopnea, Palpitations, Paroxysmal Nocturnal Dyspnea, Pedal Edema, Radiating Pain, Rapid Heart Rate, Slow Heart Rate, Syncope, Other - Respiratory Respiratory: absent: As Per HPI, Cough, Dyspnea, Hemoptysis, Dyspnea on Exertion , Wheezing, Snoring, Stridor, Pain on Inspiration, Chest Congestion, Excessive Mucous Production, Change in Mucous Color, Pain with Coughing, Other - Gastrointestinal Gastrointestinal: absent: As Per HPI, Abdominal Pain, Belching, Bloating, Change in Bowel Habits, Change in Stool Character, Coffee Ground Emesis, Constipation, Cramping, Diarrhea, Dyspepsia, Dysphagia, Early Satiety, Excessive Flatus, Fecal Incontinence, Heartburn, Hematemesis, Hematochezia, Loose Stools, Melena, Nausea, Odynophagia, Temesmus, Vomiting, Other - Genitourinary Genitourinary: absent: As Per HPI, Change in Urinary Stream, Difficulty Urinating, Dysuria, Flank Pain, Hematuria, Pyuria, Nocturia, Urinary Incontinence, Urinary Frequency, Urinary Hesitance, Urinary Urgency, Voiding Freq/Small Amts, Freq UTI, Hx Renal/Bladder Calculi, Hx /Renal Surgery, Bladder Distension, Other - Musculoskeletal Musculoskeletal: absent: As Per HPI, Abnormal Gait, Arthralgias, Atrophy, Back Pain, Deformity, Joint Swelling, Limited Range of Motion, Loss of Height, Muscle Cramps, Muscle Weakness, Myalgias, Neck Pain, Numbness, Radiating Pain into Limb, Stiffness, Tingling, Other - Integumentary Integumentary: As Per HPI - Neurological Neurological: absent: As Per HPI, Abnormal Gait, Abnormal Hearing, Abnormal Movements, Abnormal Speech, Behavioral Changes, Burning Sensations, Confusion, Convulsions, Disequilibrium, Dizziness, Numbness, Focal Weakness, Frequent Falls , Headaches, Lack of Coordination, Loss of Vision, Memory Loss, Paresthesias, Radicular Pain, Restless Legs, Sensory Deficit, Syncope, Tingling, Tremor, Vertigo, Weakness, Other Visual Disturbances, Other - Psychiatric Psychiatric: absent: As Per HPI, Abnormal Sleep Pattern, Anhedonia, Anxiety, Auditory Hallucinations, Behavioral Changes, Change in Appetite, Change in Libido, Confusion, Depression, Difficulty Concentrating, Hallucinations, Homicidal Ideation, Hopelessness, Irritability, Memory Loss, Mood Swings, Panic Attacks, Paranoia, Suicidal Ideation, Visual Hallucinations, Tactile Hallucinations, Other - Endocrine Endocrine: absent: As Per HPI, Change in Body Appearance, Change in Libido, Cold Intolorance, Deepening of Voice, Excessive Sweating, Fatigue, Flushing, Heat Intolorance, Increase in Ring/Shoe/Hat Size, Palpitations, Polydipsia, Polyphagia, Polyuria, Other - Hematologic/Lymphatic Hematologic: absent: As Per HPI, Easy Bleeding, Easy Bruising, Lymphadenopathy, Other Past Patient History - Infectious Disease Hx of Infectious Diseases: None - Tetanus Immunizations Tetanus Immunization: Unknown - Past Medical History & Family History Past Medical History?: Yes - Past Social History Smoking Status: Never Smoked - CARDIAC Hx Congestive Heart Failure: Yes Hx Hypercholesterolemia: Yes Hx Hypertension: Yes Hx Peripheral Edema: Yes (+3 pitting ble) - PULMONARY Hx Asthma: Yes Hx Chronic Obstructive Pulmonary Disease (COPD): Yes Hx Pneumonia: Yes Hx Pulmonary Embolism: Yes Hx Sleep Apnea: Yes - NEUROLOGICAL Hx Neurological Disorder: No - HEENT Hx HEENT Problems: No - RENAL Hx Chronic Kidney Disease: Yes (required HD in 2016 briefly) - ENDOCRINE/METABOLIC Hx Hyperthyroidism: Yes Hx Hypothyroidism: Yes - HEMATOLOGICAL/ONCOLOGICAL Hx Blood Disorders: No - INTEGUMENTARY Hx Dermatological Problems: Yes Other/Comment: both leggs discolored - MUSCULOSKELETAL/RHEUMATOLOGICAL Hx Arthritis: Yes Hx Fractures: Yes - GASTROINTESTINAL Hx Gastrointestinal Disorders: (reflux obese) - GENITOURINARY/GYNECOLOGICAL Hx Reproductive Disorders: No - PSYCHIATRIC Hx Depression: Yes Hx Substance Use: No - SURGICAL HISTORY Hx Surgeries: Yes Hx Orthopedic Surgery: Yes (bilateral knee replacement) Other/Comment: total left knee - 1998. right ankle screws - 1987. right hip shyam - 1982 - ANESTHESIA Hx Anesthesia: Yes Hx Anesthesia Reactions: No Hx Malignant Hyperthermia: No Meds Allergies/Adverse Reactions: Allergies Allergy/AdvReac Type Severity Reaction Status Date / Time No Known Allergies Allergy Verified 01/17/18 08:44 - Medications Medications: Current Medications Acetaminophen (Tylenol 325mg Tab) 650 mg PO Q6 PRN PRN Reason: Headache Docusate Sodium (Colace) 100 mg PO DAILY [facility] Last Admin: 01/18/18 09:05 Dose: 100 mg Furosemide (Lasix) 40 mg PO BID [facility] Last Admin: 01/18/18 09:05 Dose: 40 mg Hydralazine HCl (Apresoline) 25 mg PO Q8 [facility] Last Admin: 01/18/18 05:45 Dose: 25 mg Piperacillin Sod/Tazobactam Sod (Zosyn 3.375 Gm Iv Premix) 3.375 gm in 50 mls @ 100 mls/hr IVPB Q6H [facility] Last Admin: 01/18/18 11:03 Dose: 100 mls/hr Vancomycin/Sodium Chloride (Vancomycin 1 Gm/Ns 200 Ml) 1 gm in 200 mls @ 166.6 mls/hr IVPB Q12H [facility] Stop: 01/22/18 15:01 Last Admin: 01/18/18 03:45 Dose: 166.6 mls/hr Insulin Human Regular (Novolin R) 0 unit SC ACHS [facility] PRN Reason: Protocol Last Admin: 01/18/18 08:17 Dose: Not Given Levothyroxine Sodium (Synthroid) 75 mcg PO 0630 [facility] Last Admin: 01/18/18 05:45 Dose: 75 mcg Metformin HCl (Glucophage Xr) 500 mg PO BID [facility] Last Admin: 01/18/18 09:05 Dose: 500 mg Montelukast Sodium (Singulair) 10 mg PO HS [facility] Last Admin: 01/17/18 21:53 Dose: 10 mg Multivitamins (Hexavitamin) 1 tab PO DAILY [facility] Last Admin: 01/18/18 09:05 Dose: 1 tab Mupirocin (Bactroban Ointment) 3 gm TOP BID [facility] Oxycodone HCl (Oxycodone Immediate Release Tab) 15 mg PO Q4H PRN PRN Reason: Pain, moderate (4-7) Last Admin: 01/17/18 15:06 Dose: 15 mg Oxycodone HCl (Oxycontin Extended Release Tab) 80 mg PO Q6H [facility] Last Admin: 01/18/18 09:05 Dose: 80 mg Oxycodone/Acetaminophen (Percocet 5/325 Mg Tab) 2 tab PO Q4H PRN PRN Reason: Pain, severe (8-10) Stop: 01/20/18 20:46 Last Admin: 01/18/18 08:29 Dose: 2 tab Pantoprazole Sodium (Protonix Ec Tab) 40 mg PO DAILY [facility] Last Admin: 01/18/18 09:05 Dose: 40 mg Potassium Chloride (K-Dur 20 Meq Er Tab) 20 meq PO DAILY [facility] Last Admin: 01/18/18 09:05 Dose: 20 meq Fluticasone/Salmeterol (Advair Diskus 250/50) 1 puff IH RQ12 [facility] Sitagliptin Phosphate (Januvia) 50 mg PO DAILY [facility] Last Admin: 01/18/18 09:05 Dose: 50 mg Warfarin Sodium (Coumadin) 10 mg PO 1800 [facility] Stop: 01/18/18 18:01 Zolpidem Tartrate (Ambien) 5 mg PO HS PRN PRN Reason: Insomnia Physical Exam - Constitutional Appears: No Acute Distress, Chronically Ill - Head Exam Head Exam: ATRAUMATIC, NORMOCEPHALIC - Eye Exam Eye Exam: absent: Scleral icterus - ENT Exam ENT Exam: Mucous Membranes Dry - Neck Exam Neck exam: Negative for: Lymphadenopathy - Respiratory Exam Respiratory Exam: Decreased Breath Sounds, Rhonchi - Cardiovascular Exam Cardiovascular Exam: REGULAR RHYTHM, +S1, +S2 - GI/Abdominal Exam GI & Abdominal Exam: Diminished Bowel Sounds, Soft. absent: Tenderness - Rectal Exam Rectal Exam: Deferred - Exam Exam: NORMAL INSPECTION - Extremities Exam Extremities exam: Positive for: pedal edema, tenderness. Negative for: calf tenderness, pedal pulses present - Back Exam Back exam: absent: CVA tenderness (L), CVA tenderness (R), paraspinal tenderness - Neurological Exam Neurological exam: Alert, CN II-XII Intact, Oriented x3, Reflexes Normal - Psychiatric Exam Psychiatric exam: Normal Mood - Skin Skin Exam: Dry Results - Vital Signs Recent Vital Signs: Last Vital Signs Temp 97.7 F 01/18/18 08:43 Pulse 66 01/18/18 08:43 Resp 20 01/18/18 08:43 BP 122/85 01/18/18 09:05 Pulse Ox 96 01/18/18 08:43 - Labs Result Diagrams: 01/17/18 11:40 01/17/18 11:40 Labs: Laboratory Results - last 24 hr 01/17/18 01/17/18 01/17/18 11:40 11:40 12:45 Neutrophils % (Manual) 84 H Band Neutrophils % 4 H Lymphocytes % (Manual) 4 L Reactive Lymphs % 2 H Monocytes % (Manual) 5 Eosinophils % (Manual) 1 Platelet Estimate Normal Polychromasia Slight Anisocytosis (manual) Slight ESR 110 H PT INR APTT POC Glucose (mg/dL) Urine Color Yellow Urine Clarity Clear Urine pH 8.0 Ur Specific [place] 1.015 Urine Protein 1+ H Urine Glucose (UA) Normal Urine Ketones Trace Urine Blood Negative Urine Nitrate Negative Urine Bilirubin Negative Urine Urobilinogen 2.0 Ur Leukocyte Esterase Neg Urine WBC (Auto) 1 Urine RBC (Auto) < 1 Blood Type B POSITIVE Antibody Screen Negative 01/17/18 01/17/18 01/17/18 16:24 17:40 22:03 Neutrophils % (Manual) Band Neutrophils % Lymphocytes % (Manual) Reactive Lymphs % Monocytes % (Manual) Eosinophils % (Manual) Platelet Estimate Polychromasia Anisocytosis (manual) ESR PT INR APTT POC Glucose (mg/dL) 149 H 175 H 147 H Urine Color Urine Clarity Urine pH Ur Specific [place] Urine Protein Urine Glucose (UA) Urine Ketones Urine Blood Urine Nitrate Urine Bilirubin Urine Urobilinogen Ur Leukocyte Esterase Urine WBC (Auto) Urine RBC (Auto) Blood Type Antibody Screen 01/18/18 01/18/18 01/18/18 06:45 07:11 12:20 Neutrophils % (Manual) Band Neutrophils % Lymphocytes % (Manual) Reactive Lymphs % Monocytes % (Manual) Eosinophils % (Manual) Platelet Estimate Polychromasia Anisocytosis (manual) ESR PT 27.1 H D INR 2.3 APTT 38 H POC Glucose (mg/dL) 116 H 120 H Urine Color Urine Clarity Urine pH Ur Specific [place] Urine Protein Urine Glucose (UA) Urine Ketones Urine Blood Urine Nitrate Urine Bilirubin Urine Urobilinogen Ur Leukocyte Esterase Urine WBC (Auto) Urine RBC (Auto) Blood Type Antibody Screen Assessment & Plan (1) Cellulitis Status: Acute (2) Infected ulcer of skin Status: Acute (3) Cellulitis Status: Acute (4) Leg ulcer Status: Acute (5) Morbid obesity Status: Acute (6) Obstructive sleep apnea Status: Acute (7) PVD (peripheral vascular disease) Status: Acute - Assessment and Plan (Free Text) Assessment: await cultures cont IV antibiotics and wound care
--- NOTE | 2018-01-18 13:20 | CP.PCM.CON ---
History of Present Illness - History of Present Illness History of Present Illness: Podiatry Consult Note for Dr. Laguna 57 year old male with PMHx including Asthma,CAD, HTN, HLD, Hyperthyroidism/ Hypothyroidism, CHF,depression, DM, PE, DVT, fibromyalgia, S/P IVC filter was seen on floors for b/l venous stasis ulcerations with attending, Dr Laguna. Patient states that he has a history of b/l leg wounds of this type and has been seen by Dr. Laguna in the past for treatment as well as Dr. Roach and Dr. Madison at [place]. Patient states that his left lower extremity ulceration have become worse and has a bad odor. Patient states that his dressings are soaked and he has a lot of pain on his front and back of his leg. He admits that he does not feel well and has chills but denies n/v/f/sob/cp. Past Patient History - Infectious Disease Hx of Infectious Diseases: None - Tetanus Immunizations Tetanus Immunization: Unknown - Past Medical History & Family History Past Medical History?: Yes - Past Social History Smoking Status: Never Smoked - CARDIAC Hx Congestive Heart Failure: Yes Hx Hypercholesterolemia: Yes Hx Hypertension: Yes Hx Peripheral Edema: Yes (+3 pitting ble) - PULMONARY Hx Asthma: Yes Hx Chronic Obstructive Pulmonary Disease (COPD): Yes Hx Pneumonia: Yes Hx Pulmonary Embolism: Yes Hx Sleep Apnea: Yes - NEUROLOGICAL Hx Neurological Disorder: No - HEENT Hx HEENT Problems: No - RENAL Hx Chronic Kidney Disease: Yes (required HD in 2016 briefly) - ENDOCRINE/METABOLIC Hx Hyperthyroidism: Yes Hx Hypothyroidism: Yes - HEMATOLOGICAL/ONCOLOGICAL Hx Blood Disorders: No - INTEGUMENTARY Hx Dermatological Problems: Yes Other/Comment: both leggs discolored - MUSCULOSKELETAL/RHEUMATOLOGICAL Hx Arthritis: Yes Hx Fractures: Yes - GASTROINTESTINAL Hx Gastrointestinal Disorders: (reflux obese) - GENITOURINARY/GYNECOLOGICAL Hx Reproductive Disorders: No - PSYCHIATRIC Hx Depression: Yes Hx Substance Use: No - SURGICAL HISTORY Hx Surgeries: Yes Hx Orthopedic Surgery: Yes (bilateral knee replacement) Other/Comment: total left knee - 1998. right ankle screws - 1987. right hip shyam - 1982 - ANESTHESIA Hx Anesthesia: Yes Hx Anesthesia Reactions: No Hx Malignant Hyperthermia: No Meds Allergies/Adverse Reactions: Allergies Allergy/AdvReac Type Severity Reaction Status Date / Time No Known Allergies Allergy Verified 01/17/18 08:44 - Medications Medications: Current Medications Acetaminophen (Tylenol 325mg Tab) 650 mg PO Q6 PRN PRN Reason: Headache Docusate Sodium (Colace) 100 mg PO DAILY [facility] Last Admin: 01/18/18 09:05 Dose: 100 mg Furosemide (Lasix) 40 mg PO BID [facility] Last Admin: 01/18/18 09:05 Dose: 40 mg Hydralazine HCl (Apresoline) 25 mg PO Q8 [facility] Last Admin: 01/18/18 05:45 Dose: 25 mg Piperacillin Sod/Tazobactam Sod (Zosyn 3.375 Gm Iv Premix) 3.375 gm in 50 mls @ 100 mls/hr IVPB Q6H [facility] Last Admin: 01/18/18 11:03 Dose: 100 mls/hr Vancomycin/Sodium Chloride (Vancomycin 1 Gm/Ns 200 Ml) 1 gm in 200 mls @ 166.6 mls/hr IVPB Q12H [facility] Stop: 01/22/18 15:01 Last Admin: 01/18/18 03:45 Dose: 166.6 mls/hr Insulin Human Regular (Novolin R) 0 unit SC ACHS [facility] PRN Reason: Protocol Last Admin: 01/18/18 08:17 Dose: Not Given Levothyroxine Sodium (Synthroid) 75 mcg PO 0630 [facility] Last Admin: 01/18/18 05:45 Dose: 75 mcg Metformin HCl (Glucophage Xr) 500 mg PO BID [facility] Last Admin: 01/18/18 09:05 Dose: 500 mg Montelukast Sodium (Singulair) 10 mg PO HS [facility] Last Admin: 01/17/18 21:53 Dose: 10 mg Multivitamins (Hexavitamin) 1 tab PO DAILY [facility] Last Admin: 01/18/18 09:05 Dose: 1 tab Mupirocin (Bactroban Ointment) 3 gm TOP BID [facility] Oxycodone HCl (Oxycodone Immediate Release Tab) 15 mg PO Q4H PRN PRN Reason: Pain, moderate (4-7) Last Admin: 01/17/18 15:06 Dose: 15 mg Oxycodone HCl (Oxycontin Extended Release Tab) 80 mg PO Q6H [facility] Last Admin: 01/18/18 09:05 Dose: 80 mg Oxycodone/Acetaminophen (Percocet 5/325 Mg Tab) 2 tab PO Q4H PRN PRN Reason: Pain, severe (8-10) Stop: 01/20/18 20:46 Last Admin: 01/18/18 08:29 Dose: 2 tab Pantoprazole Sodium (Protonix Ec Tab) 40 mg PO DAILY [facility] Last Admin: 01/18/18 09:05 Dose: 40 mg Potassium Chloride (K-Dur 20 Meq Er Tab) 20 meq PO DAILY [facility] Last Admin: 01/18/18 09:05 Dose: 20 meq Fluticasone/Salmeterol (Advair Diskus 250/50) 1 puff IH RQ12 [facility] Sitagliptin Phosphate (Januvia) 50 mg PO DAILY [facility] Last Admin: 01/18/18 09:05 Dose: 50 mg Warfarin Sodium (Coumadin) 10 mg PO 1800 [facility] Stop: 01/18/18 18:01 Zolpidem Tartrate (Ambien) 5 mg PO HS PRN PRN Reason: Insomnia Physical Exam - Constitutional Appears: Well, Non-toxic, No Acute Distress - Extremities Exam Additional comments: Left lower extremity focused exam: Vasc: Non-palpable pedal pulses due to edema b/l, TG warm to warm, CFT < 3 sec to all digits, +1 pitting edema Derm: +1 pitting edema to legs bilateral, localized erythema to mid-calf bilateral. Left: multiple open ulcerations noted to the to Anterior and lateral and posterior aspect of the left leg circumferentally, with active serous drainage, wound base is granular/fibrotic base with patches of necrotic tissue, with shital-wound macerations. Mild amount of purulence, moderate amount of serosanginous drainage noted, moderate malodor noted. Neuro: grossly diminished MUSC: pain on palpation of posterior and medial legs b/l - Neurological Exam Neurological exam: Alert, Oriented x3 - Psychiatric Exam Psychiatric exam: Normal Affect, Normal Mood Results - Vital Signs Recent Vital Signs: Last Vital Signs Temp 97.7 F 01/18/18 08:43 Pulse 66 01/18/18 08:43 Resp 20 01/18/18 08:43 BP 122/85 01/18/18 09:05 Pulse Ox 96 01/18/18 08:43 - Labs Result Diagrams: 01/17/18 11:40 01/17/18 11:40 Labs: Laboratory Results - last 24 hr 01/17/18 01/17/1801/17/18 11:40 11:40 16:24 Neutrophils % (Manual) 84 H Band Neutrophils % 4 H Lymphocytes % (Manual) 4 L Reactive Lymphs % 2 H Monocytes % (Manual) 5 Eosinophils % (Manual) 1 Platelet Estimate Normal Polychromasia Slight Anisocytosis (manual) Slight PT INR APTT POC Glucose (mg/dL) 149 H Antibody Screen Negative 01/17/18 01/17/18 01/18/18 17:40 22:03 06:45 Neutrophils % (Manual) Band Neutrophils % Lymphocytes % (Manual) Reactive Lymphs % Monocytes % (Manual) Eosinophils % (Manual) Platelet Estimate Polychromasia Anisocytosis (manual) PT INR APTT POC Glucose (mg/dL) 175 H 147 H 116 H Antibody Screen 01/18/18 01/18/18 07:11 12:20 Neutrophils % (Manual) Band Neutrophils % Lymphocytes % (Manual) Reactive Lymphs % Monocytes % (Manual) Eosinophils % (Manual) Platelet Estimate Polychromasia Anisocytosis (manual) PT 27.1 H D INR 2.3 APTT 38 H POC Glucose (mg/dL) 120 H Antibody Screen Assessment & Plan - Assessment and Plan (Free Text) Assessment: 57 year old male presents with venous statis ulcerations Plan: patient examined and evaluated with attending, Dr. Laguna chart, labs, vitals reviewed;afebrile, WBC 10.0 wound culture obtained- results pending left dressing cleansed with normal sterile saline, dressed with telfa non- adherent, ABD, kerlix continue IV abx per ID cont pain meds per primary left tib-fib xray pending podiatry will continue to follow patient while in house
--- NOTE | 2018-01-18 16:26 | RAD ---
PROCEDURE: Radiographs of the left tibia and fibula. HISTORY: left leg ulcers COMPARISON: None available. TECHNIQUE: Frontal and lateral views obtained. FINDINGS: BONES: In situ total knee replacement. Hardware appears intact without evidence of loosening or infection. The osseous structures are also intact with no obvious cortical changes. Infiltration and edematous changes of the subcutaneous tissues consistent with a cellulitis. . JOINT SPACES: As above OTHER FINDINGS: None. IMPRESSION: Diffuse soft tissue swelling/infiltration consistent with a cellulitis. The no obvious cortical destructive changes. There are displaced fracture nor dislocation Total knee arthroplasty intact without evidence of hardware failure
[2018-01-18] MEDS: Fluticasone-Salmeterol 250-50mcg Diskus IH SCH (19:59)
[2018-01-18] MEDS: Piperacillin/Tazobact 3.375 GM in Sodium Chloride 100 ML IVPB SCH (21:08)
--- NOTE | 2018-01-18 22:15 | CARD ---
APPROVED REPORT EKG Measurement Heart [id number] <Conclusion> Normal sinus rhythm Normal ECG
--- NOTE | 2018-01-18 22:39 | CP.PCM.PN ---
Subjective - Date & Time of Evaluation Date of Evaluation: 01/18/18 Time of Evaluation: 19:35 - Subjective Subjective: Pt seen & examined aT bedside, cultures growing gram neg rods iv rx renewed left leg swelling + Objective - Vital Signs/Intake and Output Vital Signs (last 24 hours): Temp Pulse Resp BP Pulse Ox 97.8 F 64 22 101/61 98 01/18/18 15:45 01/18/18 15:45 01/18/18 15:45 01/18/18 18:39 01/18/18 15:45 - Medications Medications: Current Medications Acetaminophen (Tylenol 325mg Tab) 650 mg PO Q6 PRN PRN Reason: Headache Docusate Sodium (Colace) 100 mg PO DAILY [facility] Last Admin: 01/18/18 09:05 Dose: 100 mg Furosemide (Lasix) 40 mg PO BID [facility] Last Admin: 01/18/18 18:39 Dose: 40 mg Hydralazine HCl (Apresoline) 25 mg PO Q8 [facility] Last Admin: 01/18/18 21:09 Dose: 25 mg Vancomycin/Sodium Chloride (Vancomycin 1 Gm/Ns 200 Ml) 1 gm in 200 mls @ 166.6 mls/hr IVPB Q12H [facility] Stop: 01/22/18 15:01 Last Admin: 01/18/18 15:16 Dose: 166.6 mls/hr Piperacillin Sod/Tazobactam (Sod 3.375 gm/ Sodium Chloride) 100 mls @ 100 mls/ hr IVPB Q6H [facility] Last Admin: 01/18/18 21:08 Dose: 100 mls/hr Insulin Human Regular (Novolin R) 0 unit SC ACHS [facility] PRN Reason: Protocol Last Admin: 01/18/18 21:25 Dose: Not Given Levothyroxine Sodium (Synthroid) 75 mcg PO 0630 [facility] Last Admin: 01/18/18 05:45 Dose: 75 mcg Metformin HCl (Glucophage Xr) 500 mg PO BID [facility] Last Admin: 01/18/18 18:40 Dose: 500 mg Montelukast Sodium (Singulair) 10 mg PO HS [facility] Last Admin: 01/18/18 21:09 Dose: 10 mg Multivitamins (Hexavitamin) 1 tab PO DAILY [facility] Last Admin: 01/18/18 09:05 Dose: 1 tab Mupirocin (Bactroban Ointment) 3 gm TOP BID [facility] Last Admin: 01/18/18 18:30 Dose: 1 applic Oxycodone HCl (Oxycodone Immediate Release Tab) 15 mg PO Q4H PRN PRN Reason: Pain, moderate (4-7) Last Admin: 01/17/18 15:06 Dose: 15 mg Oxycodone HCl (Oxycontin Extended Release Tab) 80 mg PO Q6H [facility] Last Admin: 01/18/18 21:09 Dose: 80 mg Oxycodone/Acetaminophen (Percocet 5/325 Mg Tab) 2 tab PO Q4H PRN PRN Reason: Pain, severe (8-10) Stop: 01/20/18 20:46 Last Admin: 01/18/18 18:40 Dose: 2 tab Pantoprazole Sodium (Protonix Ec Tab) 40 mg PO DAILY [facility] Last Admin: 01/18/18 09:05 Dose: 40 mg Potassium Chloride (K-Dur 20 Meq Er Tab) 20 meq PO DAILY [facility] Last Admin: 01/18/18 09:05 Dose: 20 meq Fluticasone/Salmeterol (Advair Diskus 250/50) 1 puff IH RQ12 [facility] Last Admin: 01/18/18 19:59 Dose: Not Given Sitagliptin Phosphate (Januvia) 50 mg PO DAILY [facility] Last Admin: 01/18/18 09:05 Dose: 50 mg Zolpidem Tartrate (Ambien) 5 mg PO HS PRN PRN Reason: Insomnia - Labs Labs: 01/17/18 11:40 01/17/18 11:40 PT 27.1 SECONDS (9.7-12.2) H D 01/18/18 07:11 INR 2.3 01/18/18 07:11 APTT 38 SECONDS (21-34) H 01/18/18 07:11 - Extremities Exam Additional comments: Left lower extremity focused exam: strikethough noted to dressings Vasc: Non-palpable pedal pulses due to edema b/l, TG warm to warm, CFT < 3 sec to all digits, +1 pitting edema Derm: +1 pitting edema to legs bilateral, localized erythema to mid-calf bilateral. Left: multiple open ulcerations noted to the to Anterior and lateral and posterior aspect of the left leg circumferentally, with active serous drainage, wound base is granular/fibrotic base with patches of necrotic tissue, with shital-wound macerations. Mild amount of purulence, moderate amount of serosanginous drainage noted, moderate malodor noted. Neuro: sensation grossly diminished MUSC: pain on palpation of posterior and medial legs b/l
[2018-01-19] MEDS: oxyCODONE 40 mg ER Tab (oxyCONTIN) PO SCH ×4 (02:37→20:12)
[2018-01-19] MEDS: Piperacillin/Tazobact 3.375 GM in Sodium Chloride 100 ML IVPB SCH ×4 (02:38→21:26)
[2018-01-19] MEDS: Vancomycin 1 gm/NS 200 ml 1 GM/200 ML BAG IVPB SCH ×2 (02:39→14:14)
[2018-01-19] MEDS: Oxycodone/Acetaminophen 5/325 mg Tab PO PRN ×4 (06:09→21:25)
[2018-01-19] MEDS: Levothyroxine 75 MCG TAB PO SCH (06:09)
[2018-01-19 07:20] LABS: INR 2.5; PROTHROMBIN TIME 28.8 SECONDS (9.7-12.2)
[2018-01-19 07:22] LABS: HEMOGLOBIN 10.5 g/dL (12.0-18.0); MEAN CELL VOLUME 78.9 fL (80.0-94.0); MEAN CORPUSCULAR HEMOGLOBIN 25.8 pg (27.0-31.0); MEAN CORPUSCULAR HGB CONC 32.7 g/dL (33.0-37.0); MEAN PLATELET VOLUME 9.2 fL (7.2-11.7); RBC 4.07 Mil/uL (4.40-5.90); RED CELL DISTRIBUTION WIDTH 14.6 % (11.5-14.5); WHITE BLOOD COUNT 6.3 K/uL (4.8-10.8)
[2018-01-19 07:28] LABS: CALCIUM 8.9 mg/dl (8.6-10.4)
[2018-01-19] MEDS: Fluticasone-Salmeterol 250-50mcg Diskus IH SCH (07:40)
[2018-01-19] MEDS: (Novolin R) Insulin Human Regular 100 units/ml vial SC SCH ×4 (07:52→21:27)
--- NOTE | 2018-01-19 10:32 | CP.PCM.PN ---
Subjective - Date & Time of Evaluation Date of Evaluation: 01/19/18 Time of Evaluation: 10:00 - Subjective Subjective: cultures growing gram neg rods iv rx renewed left leg swelling + Objective - Vital Signs/Intake and Output Vital Signs (last 24 hours): Temp Pulse Resp BP Pulse Ox 97.5 F L 58 L 20 125/75 98 01/19/18 07:50 01/19/18 07:50 01/19/18 07:50 01/19/18 07:50 01/19/18 07:50 Intake and Output: 01/19/18 01/19/18 06:59 18:59 Intake Total 1370 Output Total 800 Balance 570 - Medications Medications: Current Medications Acetaminophen (Tylenol 325mg Tab) 650 mg PO Q6 PRN PRN Reason: Headache Docusate Sodium (Colace) 100 mg PO DAILY [facility] Last Admin: 01/18/18 09:05 Dose: 100 mg Furosemide (Lasix) 40 mg PO BID [facility] Last Admin: 01/18/18 18:39 Dose: 40 mg Hydralazine HCl (Apresoline) 25 mg PO Q8 [facility] Last Admin: 01/19/18 06:09 Dose: 25 mg Vancomycin/Sodium Chloride (Vancomycin 1 Gm/Ns 200 Ml) 1 gm in 200 mls @ 166.6 mls/hr IVPB Q12H [facility] Stop: 01/22/18 15:01 Last Admin: 01/19/18 02:39 Dose: 166.6 mls/hr Piperacillin Sod/Tazobactam (Sod 3.375 gm/ Sodium Chloride) 100 mls @ 100 mls/ hr IVPB Q6H [facility] Last Admin: 01/19/18 08:10 Dose: 100 mls/hr Insulin Human Regular (Novolin R) 0 unit SC ACHS [facility] PRN Reason: Protocol Last Admin: 01/19/18 07:52 Dose: Not Given Levothyroxine Sodium (Synthroid) 75 mcg PO 0630 [facility] Last Admin: 01/19/18 06:09 Dose: 75 mcg Metformin HCl (Glucophage Xr) 500 mg PO BID [facility] Last Admin: 01/18/18 18:40 Dose: 500 mg Montelukast Sodium (Singulair) 10 mg PO HS [facility] Last Admin: 01/18/18 21:09 Dose: 10 mg Multivitamins (Hexavitamin) 1 tab PO DAILY [facility] Last Admin: 01/18/18 09:05 Dose: 1 tab Mupirocin (Bactroban Ointment) 3 gm TOP BID [facility] Last Admin: 01/18/18 18:30 Dose: 1 applic Oxycodone HCl (Oxycodone Immediate Release Tab) 15 mg PO Q4H PRN PRN Reason: Pain, moderate (4-7) Last Admin: 01/17/18 15:06 Dose: 15 mg Oxycodone HCl (Oxycontin Extended Release Tab) 80 mg PO Q6H [facility] Last Admin: 01/19/18 08:10 Dose: 80 mg Oxycodone/Acetaminophen (Percocet 5/325 Mg Tab) 2 tab PO Q4H PRN PRN Reason: Pain, severe (8-10) Stop: 01/20/18 20:46 Last Admin: 01/19/18 06:09 Dose: 2 tab Pantoprazole Sodium (Protonix Ec Tab) 40 mg PO DAILY [facility] Last Admin: 01/18/18 09:05 Dose: 40 mg Potassium Chloride (K-Dur 20 Meq Er Tab) 20 meq PO DAILY [facility] Last Admin: 01/18/18 09:05 Dose: 20 meq Fluticasone/Salmeterol (Advair Diskus 250/50) 1 puff IH RQ12 [facility] Last Admin: 01/18/18 19:59 Dose: Not Given Sitagliptin Phosphate (Januvia) 50 mg PO DAILY [facility] Last Admin: 01/18/18 09:05 Dose: 50 mg Zolpidem Tartrate (Ambien) 5 mg PO HS PRN PRN Reason: Insomnia - Labs Labs: 01/19/18 07:05 01/19/18 07:05 PT 28.8 SECONDS (9.7-12.2) H 01/19/18 07:05 INR 2.5 01/19/18 07:05 APTT 38 SECONDS (21-34) H 01/18/18 07:11 - Constitutional Appears: Non-toxic - Head Exam Head Exam: NORMOCEPHALIC - Eye Exam Eye Exam: PERRL - ENT Exam ENT Exam: Mucous Membranes Dry - Neck Exam Neck Exam: absent: Lymphadenopathy - Respiratory Exam Respiratory Exam: Decreased Breath Sounds - Cardiovascular Exam Cardiovascular Exam: REGULAR RHYTHM - GI/Abdominal Exam GI & Abdominal Exam: Distended, Soft - Rectal Exam Rectal Exam: Deferred - Exam Exam: NORMAL INSPECTION - Extremities Exam Extremities Exam: absent: Pedal Edema - Back Exam Back Exam: absent: CVA tenderness (L), CVA tenderness (R) - Neurological Exam Neurological Exam: Alert, Awake Assessment and Plan (1) Cellulitis Status: Acute (2) Infected ulcer of skin Status: Acute (3) Cellulitis Status: Acute (4) Leg ulcer Status: Acute (5) Morbid obesity Status: Acute (6) Obstructive sleep apnea Status: Acute (7) PVD (peripheral vascular disease) Status: Acute
[2018-01-19] MEDS: Potassium Chloride 20 mEq ER Tab PO SCH (10:33)
[2018-01-19] MEDS: Pantoprazole 40 mg EC Tab PO SCH (10:33)
[2018-01-19] MEDS: Multiple Vitamins Tab PO SCH (10:33)
--- NOTE | 2018-01-19 11:00 | CP.PCM.PN ---
Subjective - Date & Time of Evaluation Date of Evaluation: 01/19/18 Time of Evaluation: 10:58 - Subjective Subjective: Podiatry Progress note for Dr. Laguna 57 year old male was seen resting comfortably at bedside regarding left lower extremity ulcerations. Patient states that he does have pain to his left lower extremity upon touch. He is AAOx3, NAD. Currently denies any n/v/f/c/sob/cp. Objective - Vital Signs/Intake and Output Vital Signs (last 24 hours): Temp Pulse Resp BP Pulse Ox 97.5 F L 58 L 20 116/72 98 01/19/18 07:50 01/19/18 07:50 01/19/18 07:50 01/19/18 10:34 01/19/18 07:50 Intake and Output: 01/19/18 01/19/18 06:59 18:59 Intake Total 1370 Output Total 800 Balance 570 - Medications Medications: Current Medications Acetaminophen (Tylenol 325mg Tab) 650 mg PO Q6 PRN PRN Reason: Headache Docusate Sodium (Colace) 100 mg PO DAILY [facility] Last Admin: 01/19/18 10:33 Dose: 100 mg Furosemide (Lasix) 40 mg PO BID [facility] Last Admin: 01/19/18 10:34 Dose: 40 mg Hydralazine HCl (Apresoline) 25 mg PO Q8 [facility] Last Admin: 01/19/18 06:09 Dose: 25 mg Vancomycin/Sodium Chloride (Vancomycin 1 Gm/Ns 200 Ml) 1 gm in 200 mls @ 166.6 mls/hr IVPB Q12H [facility] Stop: 01/22/18 15:01 Last Admin: 01/19/18 02:39 Dose: 166.6 mls/hr Piperacillin Sod/Tazobactam (Sod 3.375 gm/ Sodium Chloride) 100 mls @ 100 mls/ hr IVPB Q6H [facility] Last Admin: 01/19/18 08:10 Dose: 100 mls/hr Insulin Human Regular (Novolin R) 0 unit SC ACHS [facility] PRN Reason: Protocol Last Admin: 01/19/18 07:52 Dose: Not Given Levothyroxine Sodium (Synthroid) 75 mcg PO 0630 [facility] Last Admin: 01/19/18 06:09 Dose: 75 mcg Metformin HCl (Glucophage Xr) 500 mg PO BID [facility] Last Admin: 01/19/18 10:33 Dose: 500 mg Montelukast Sodium (Singulair) 10 mg PO HS [facility] Last Admin: 01/18/18 21:09 Dose: 10 mg Multivitamins (Hexavitamin) 1 tab PO DAILY [facility] Last Admin: 01/19/18 10:33 Dose: 1 tab Mupirocin (Bactroban Ointment) 3 gm TOP BID [facility] Last Admin: 01/19/18 10:42 Dose: Not Given Oxycodone HCl (Oxycodone Immediate Release Tab) 15 mg PO Q4H PRN PRN Reason: Pain, moderate (4-7) Last Admin: 01/17/18 15:06 Dose: 15 mg Oxycodone HCl (Oxycontin Extended Release Tab) 80 mg PO Q6H [facility] Last Admin: 01/19/18 08:10 Dose: 80 mg Oxycodone/Acetaminophen (Percocet 5/325 Mg Tab) 2 tab PO Q4H PRN PRN Reason: Pain, severe (8-10) Stop: 01/20/18 20:46 Last Admin: 01/19/18 10:33 Dose: 2 tab Pantoprazole Sodium (Protonix Ec Tab) 40 mg PO DAILY [facility] Last Admin: 01/19/18 10:33 Dose: 40 mg Potassium Chloride (K-Dur 20 Meq Er Tab) 20 meq PO DAILY [facility] Last Admin: 01/19/18 10:33 Dose: 20 meq Fluticasone/Salmeterol (Advair Diskus 250/50) 1 puff IH RQ12 [facility] Last Admin: 01/18/18 19:59 Dose: Not Given Sitagliptin Phosphate (Januvia) 50 mg PO DAILY [facility] Last Admin: 01/19/18 10:33 Dose: 50 mg Zolpidem Tartrate (Ambien) 5 mg PO HS PRN PRN Reason: Insomnia - Labs Labs: 01/19/18 07:05 01/19/18 07:05 PT 28.8 SECONDS (9.7-12.2) H 01/19/18 07:05 INR 2.5 01/19/18 07:05 APTT 38 SECONDS (21-34) H 01/18/18 07:11 - Constitutional Appears: Well, Non-toxic, No Acute Distress - Extremities Exam Additional comments: Left lower extremity focused exam: strikethough noted to dressings Vasc: Non-palpable pedal pulses due to edema b/l, TG warm to warm, CFT < 3 sec to all digits, +1 pitting edema Derm: +1 pitting edema to legs bilateral, localized erythema to mid-calf bilateral. Left: multiple open ulcerations noted to the to Anterior and lateral and posterior aspect of the left leg circumferentally, with active serous drainage, wound base is granular/fibrotic base with patches of necrotic tissue, with shital-wound macerations. Mild amount of purulence, moderate amount of serosanginous drainage noted, moderate malodor noted. Neuro: sensation grossly diminished MUSC: pain on palpation of posterior and medial legs b/l - Neurological Exam Neurological Exam: Alert, Awake, Oriented x3 - Psychiatric Exam Psychiatric exam: Normal Affect, Normal Mood Assessment and Plan - Assessment and Plan (Free Text) Assessment: 57 year old male presents with venous statis ulcerations Plan: patient examined and evaluated with attending, Dr. Laguna chart, labs, vitals reviewed;afebrile, WBC 6.3 wound culture obtained- results pending left dressing cleansed with normal sterile saline, dressed with bactroban, telfa non-adherent, ABD, kerlix continue IV abx per ID cont pain meds per primary left tib-fib xray-IMPRESSION:Diffuse soft tissue swelling/infiltration consistent with a cellulitis. The no obvious cortical destructive changes. There are displaced fracture nor dislocation Total knee arthroplasty intact without evidence of hardware failure patient to [place] am for wound debridment pending medical optimization podiatry will continue to follow patient while in house
--- NOTE | 2018-01-19 13:03 | CP.PCM.PN ---
Subjective - Date & Time of Evaluation Date of Evaluation: 01/19/18 Time of Evaluation: 13:03 - Subjective Subjective: PLAN OF CARE DISCUSSED AT LENGTH THROUGHOUT THE DAY WITH POD RESIDENT, DR. RODRIGUEZ. PT IS FOR DEBRIDEMENT AT SOME POINT THIS WEEK. WAS ORIGINALLY ARRANGED FOR THURSDAY, HOWEVER, PT IS ON COUMADIN AND INR TODAY IS 2.5. BASED ON PT'S HISTORY, WILL NEED TO HOLD COUMADIN STARTING TONIGHT, PER Virgilio CHAVEZ'S RECOMMENDATIONS, AND WE WILL DO DAILY PT/INR. PER DR. CHAVEZ INR SHOULD BE AT LEAST 1.2 PRIOR TO PT HAVING DEBRIDEMENT DONE. I DISCUSSED THIS DR. WALLACE AND HE IS IN AGREEMENT; WILL RESTART LOVENOX 40 MG SQ QD TOMORROW MORNING UNTIL DEBRIDEMENT IS SCHEDULED. DR. WALLACE TO ALSO DOCUMENT PT'S MEDICAL OPTIMIZATION FOR PODIATRY TO DO SURGICAL PROCEDURE. DISCUSSED FINAL PLAN WITH DR. RODRIGUEZ AND WE ARE IN AGREEMENT. NO FURTHER ORDERS. Objective - Vital Signs/Intake and Output Vital Signs (last 24 hours): Temp Pulse Resp BP Pulse Ox 97.5 F L 58 L 20 116/72 98 01/19/18 07:50 01/19/18 07:50 01/19/18 07:50 01/19/18 10:34 01/19/18 07:50 Intake and Output: 01/19/18 01/19/18 06:59 18:59 Intake Total 1370 Output Total 800 Balance 570 - Medications Medications: Current Medications Acetaminophen (Tylenol 325mg Tab) 650 mg PO Q6 PRN PRN Reason: Headache Docusate Sodium (Colace) 100 mg PO DAILY [facility] Last Admin: 01/19/18 10:33 Dose: 100 mg Furosemide (Lasix) 40 mg PO BID [facility] Last Admin: 01/19/18 10:34 Dose: 40 mg Hydralazine HCl (Apresoline) 25 mg PO Q8 [facility] Last Admin: 01/19/18 06:09 Dose: 25 mg Vancomycin/Sodium Chloride (Vancomycin 1 Gm/Ns 200 Ml) 1 gm in 200 mls @ 166.6 mls/hr IVPB Q12H [facility] Stop: 01/22/18 15:01 Last Admin: 01/19/18 02:39 Dose: 166.6 mls/hr Piperacillin Sod/Tazobactam (Sod 3.375 gm/ Sodium Chloride) 100 mls @ 100 mls/ hr IVPB Q6H [facility] Last Admin: 01/19/18 08:10 Dose: 100 mls/hr Insulin Human Regular (Novolin R) 0 unit SC ACHS [facility] PRN Reason: Protocol Last Admin: 01/19/18 12:28 Dose: Not Given Levothyroxine Sodium (Synthroid) 75 mcg PO 0630 [facility] Last Admin: 01/19/18 06:09 Dose: 75 mcg Metformin HCl (Glucophage Xr) 500 mg PO BID [facility] Last Admin: 01/19/18 10:33 Dose: 500 mg Montelukast Sodium (Singulair) 10 mg PO HS [facility] Last Admin: 01/18/18 21:09 Dose: 10 mg Multivitamins (Hexavitamin) 1 tab PO DAILY [facility] Last Admin: 01/19/18 10:33 Dose: 1 tab Mupirocin (Bactroban Ointment) 3 gm TOP BID [facility] Last Admin: 01/19/18 10:42 Dose: Not Given Oxycodone HCl (Oxycodone Immediate Release Tab) 15 mg PO Q4H PRN PRN Reason: Pain, moderate (4-7) Last Admin: 01/17/18 15:06 Dose: 15 mg Oxycodone HCl (Oxycontin Extended Release Tab) 80 mg PO Q6H [facility] Last Admin: 01/19/18 08:10 Dose: 80 mg Oxycodone/Acetaminophen (Percocet 5/325 Mg Tab) 2 tab PO Q4H PRN PRN Reason: Pain, severe (8-10) Stop: 01/20/18 20:46 Last Admin: 01/19/18 10:33 Dose: 2 tab Pantoprazole Sodium (Protonix Ec Tab) 40 mg PO DAILY [facility] Last Admin: 01/19/18 10:33 Dose: 40 mg Potassium Chloride (K-Dur 20 Meq Er Tab) 20 meq PO DAILY [facility] Last Admin: 01/19/18 10:33 Dose: 20 meq Fluticasone/Salmeterol (Advair Diskus 250/50) 1 puff IH RQ12 [facility] Last Admin: 01/18/18 19:59 Dose: Not Given Sitagliptin Phosphate (Januvia) 50 mg PO DAILY [facility] Last Admin: 01/19/18 10:33 Dose: 50 mg Zolpidem Tartrate (Ambien) 5 mg PO HS PRN PRN Reason: Insomnia - Labs Labs: 01/19/18 07:05 01/19/18 07:05 PT 28.8 SECONDS (9.7-12.2) H 01/19/18 07:05 INR 2.5 01/19/18 07:05 APTT 38 SECONDS (21-34) H 01/18/18 07:11
--- NOTE | 2018-01-19 23:34 | CP.PCM.PN ---
Subjective - Date & Time of Evaluation Date of Evaluation: 01/19/18 Time of Evaluation: 18:00 - Subjective Subjective: Pt seen and examined is for debribement of left leg ulcer on , meanwhile pt is on medical management, afebrile, no shortness of breath Objective - Vital Signs/Intake and Output Vital Signs (last 24 hours): Temp Pulse Resp BP Pulse Ox 98.0 F 65 20 115/73 96 01/19/18 15:26 01/19/18 15:26 01/19/18 15:26 01/19/18 18:15 01/19/18 15:26 Intake and Output: 01/19/18 01/20/18 18:59 06:59 Intake Total 300 Output Total 500 Balance -200 - Medications Medications: Current Medications Acetaminophen (Tylenol 325mg Tab) 650 mg PO Q6 PRN PRN Reason: Headache Docusate Sodium (Colace) 100 mg PO DAILY [facility] Last Admin: 01/19/18 10:33 Dose: 100 mg Enoxaparin Sodium (Lovenox) 40 mg SC DAILY [facility] Furosemide (Lasix) 40 mg PO BID [facility] Last Admin: 01/19/18 18:15 Dose: 40 mg Hydralazine HCl (Apresoline) 25 mg PO Q8 [facility] Last Admin: 01/19/18 21:26 Dose: 25 mg Vancomycin/Sodium Chloride (Vancomycin 1 Gm/Ns 200 Ml) 1 gm in 200 mls @ 166.6 mls/hr IVPB Q12H [facility] Stop: 01/22/18 15:01 Last Admin: 01/19/18 14:14 Dose: 166.6 mls/hr Piperacillin Sod/Tazobactam (Sod 3.375 gm/ Sodium Chloride) 100 mls @ 100 mls/ hr IVPB Q6H [facility] Last Admin: 01/19/18 21:26 Dose: 100 mls/hr Insulin Human Regular (Novolin R) 0 unit SC ACHS [facility] PRN Reason: Protocol Last Admin: 01/19/18 21:27 Dose: Not Given Levothyroxine Sodium (Synthroid) 75 mcg PO 0630 [facility] Last Admin: 01/19/18 06:09 Dose: 75 mcg Metformin HCl (Glucophage Xr) 500 mg PO BID [facility] Last Admin: 01/19/18 19:28 Dose: Not Given Montelukast Sodium (Singulair) 10 mg PO HS [facility] Last Admin: 01/19/18 21:26 Dose: 10 mg Multivitamins (Hexavitamin) 1 tab PO DAILY [facility] Last Admin: 01/19/18 10:33 Dose: 1 tab Mupirocin (Bactroban Ointment) 3 gm TOP BID [facility] Last Admin: 01/19/18 19:28 Dose: Not Given Oxycodone HCl (Oxycodone Immediate Release Tab) 15 mg PO Q4H PRN PRN Reason: Pain, moderate (4-7) Last Admin: 01/17/18 15:06 Dose: 15 mg Oxycodone HCl (Oxycontin Extended Release Tab) 80 mg PO Q6H [facility] Last Admin: 01/19/18 20:12 Dose: 80 mg Oxycodone/Acetaminophen (Percocet 5/325 Mg Tab) 2 tab PO Q4H PRN PRN Reason: Pain, severe (8-10) Stop: 01/20/18 20:46 Last Admin: 01/19/18 21:25 Dose: 2 tab Pantoprazole Sodium (Protonix Ec Tab) 40 mg PO DAILY [facility] Last Admin: 01/19/18 10:33 Dose: 40 mg Potassium Chloride (K-Dur 20 Meq Er Tab) 20 meq PO DAILY [facility] Last Admin: 01/19/18 10:33 Dose: 20 meq Fluticasone/Salmeterol (Advair Diskus 250/50) 1 puff IH RQ12 [facility] Last Admin: 01/18/18 19:59 Dose: Not Given Sitagliptin Phosphate (Januvia) 50 mg PO DAILY [facility] Last Admin: 01/19/18 10:33 Dose: 50 mg Zolpidem Tartrate (Ambien) 5 mg PO HS PRN PRN Reason: Insomnia - Labs Labs: 01/19/18 07:05 01/19/18 07:05 PT 28.8 SECONDS (9.7-12.2) H 01/19/18 07:05 INR 2.5 01/19/18 07:05 APTT 38 SECONDS (21-34) H 01/18/18 07:11 - Constitutional Appears: No Acute Distress - Head Exam Head Exam: ATRAUMATIC, NORMAL INSPECTION, NORMOCEPHALIC - Eye Exam Eye Exam: EOMI, Normal appearance, PERRL Pupil Exam: NORMAL ACCOMODATION, PERRL - Respiratory Exam Respiratory Exam: Clear to Ausculation Bilateral, NORMAL BREATHING PATTERN - Cardiovascular Exam Cardiovascular Exam: REGULAR RHYTHM, +S1, +S2. absent: Murmur - GI/Abdominal Exam GI & Abdominal Exam: Soft, Normal Bowel Sounds. absent: Tenderness Assessment and Plan (1) Cellulitis Status: Acute (2) Infected ulcer of skin Status: Acute (3) MDD (major depressive disorder) Status: Acute (4) Morbid obesity Status: Acute (5) Obstructive sleep apnea Status: Acute (6) PVD (peripheral vascular disease) Status: Acute (7) Hypertension Status: Chronic
[2018-01-20] MEDS: Oxycodone/Acetaminophen 5/325 mg Tab PO PRN ×5 (01:37→23:52)
[2018-01-20] MEDS: oxyCODONE 40 mg ER Tab (oxyCONTIN) PO SCH ×3 (02:45→15:08)
[2018-01-20] MEDS: Piperacillin/Tazobact 3.375 GM in Sodium Chloride 100 ML IVPB SCH ×3 (02:47→14:55)
[2018-01-20] MEDS: Vancomycin 1 gm/NS 200 ml 1 GM/200 ML BAG IVPB SCH ×2 (02:48→15:40)
[2018-01-20] MEDS: Levothyroxine 75 MCG TAB PO SCH (05:51)
[2018-01-20 06:40] LABS: HEMOGLOBIN 10.8 g/dL (12.0-18.0); MEAN CELL VOLUME 79.4 fL (80.0-94.0); MEAN CORPUSCULAR HGB CONC 32.8 g/dL (33.0-37.0); MEAN PLATELET VOLUME 9.3 fL (7.2-11.7); RBC 4.13 Mil/uL (4.40-5.90); RED CELL DISTRIBUTION WIDTH 14.8 % (11.5-14.5)
[2018-01-20 06:44] LABS: INR 2.1; PROTHROMBIN TIME 23.9 SECONDS (9.7-12.2)
[2018-01-20 06:55] LABS: CALCIUM 8.9 mg/dl (8.6-10.4)
[2018-01-20] MEDS: (Novolin R) Insulin Human Regular 100 units/ml vial SC SCH ×4 (07:29→21:43)
[2018-01-20] MEDS: Fluticasone-Salmeterol 250-50mcg Diskus IH SCH ×2 (07:39→19:01)
[2018-01-20] MEDS: Pantoprazole 40 mg EC Tab PO SCH (11:00)
[2018-01-20] MEDS: Enoxaparin 40 mg Syringe SC SCH (11:00)
[2018-01-20] MEDS: Potassium Chloride 20 mEq ER Tab PO SCH (11:00)
[2018-01-20] MEDS: Multiple Vitamins Tab PO SCH (11:13)
--- NOTE | 2018-01-20 11:38 | CP.PCM.PN ---
<Taniya Sun - Last Filed: 01/20/18 15:03> Subjective - Date & Time of Evaluation Date of Evaluation: 01/20/18 Time of Evaluation: 11:35 - Subjective Subjective: Podiatry Progress note for Dr. Laguna 57 year old male was seen resting comfortably at bedside regarding left lower extremity ulcerations. Patient states that he does have pain to his left lower extremity upon touch. He is AAOx3, NAD. Currently denies any n/v/f/c/sob/cp. Patient is aware that sometime this week he is going to the OR for a left leg wound debridement. Objective - Vital Signs/Intake and Output Vital Signs (last 24 hours): Temp Pulse Resp BP Pulse Ox 98.2 F 68 20 125/82 96 01/20/18 08:37 01/20/18 08:37 01/20/18 08:37 01/20/18 11:00 01/20/18 08:37 Intake and Output: 01/20/18 01/20/18 06:59 18:59 Intake Total 720 Output Total 1000 Balance -280 - Medications Medications: Current Medications Acetaminophen (Tylenol 325mg Tab) 650 mg PO Q6 PRN PRN Reason: Headache Docusate Sodium (Colace) 100 mg PO DAILY [facility] Last Admin: 01/20/18 11:00 Dose: 100 mg Enoxaparin Sodium (Lovenox) 40 mg SC DAILY [facility] Last Admin: 01/20/18 11:00 Dose: 40 mg Furosemide (Lasix) 40 mg PO BID [facility] Last Admin: 01/20/18 11:00 Dose: 40 mg Hydralazine HCl (Apresoline) 25 mg PO Q8 [facility] Last Admin: 01/20/18 05:51 Dose: 25 mg Vancomycin/Sodium Chloride (Vancomycin 1 Gm/Ns 200 Ml) 1 gm in 200 mls @ 166.6 mls/hr IVPB Q12H [facility] Stop: 01/22/18 15:01 Last Admin: 01/20/18 02:48 Dose: 166.6 mls/hr Piperacillin Sod/Tazobactam (Sod 3.375 gm/ Sodium Chloride) 100 mls @ 100 mls/ hr IVPB Q6H [facility] Last Admin: 01/20/18 08:20 Dose: 100 mls/hr Insulin Human Regular (Novolin R) 0 unit SC ACHS [facility] PRN Reason: Protocol Last Admin: 01/20/18 07:29 Dose: Not Given Levothyroxine Sodium (Synthroid) 75 mcg PO 0630 [facility] Last Admin: 01/20/18 05:51 Dose: 75 mcg Metformin HCl (Glucophage Xr) 500 mg PO BID [facility] Last Admin: 01/19/18 19:28 Dose: Not Given Montelukast Sodium (Singulair) 10 mg PO HS [facility] Last Admin: 01/19/18 21:26 Dose: 10 mg Multivitamins (Hexavitamin) 1 tab PO DAILY [facility] Last Admin: 01/20/18 11:13 Dose: 1 tab Mupirocin (Bactroban Ointment) 3 gm TOP BID [facility] Last Admin: 01/19/18 19:28 Dose: Not Given Oxycodone HCl (Oxycodone Immediate Release Tab) 15 mg PO Q4H PRN PRN Reason: Pain, moderate (4-7) Last Admin: 01/17/18 15:06 Dose: 15 mg Oxycodone HCl (Oxycontin Extended Release Tab) 80 mg PO Q6H [facility] Last Admin: 01/20/18 08:19 Dose: 80 mg Oxycodone/Acetaminophen (Percocet 5/325 Mg Tab) 2 tab PO Q4H PRN PRN Reason: Pain, severe (8-10) Stop: 01/20/18 20:46 Last Admin: 01/20/18 11:21 Dose: 2 tab Pantoprazole Sodium (Protonix Ec Tab) 40 mg PO DAILY [facility] Last Admin: 01/20/18 11:00 Dose: 40 mg Potassium Chloride (K-Dur 20 Meq Er Tab) 20 meq PO DAILY [facility] Last Admin: 01/20/18 11:00 Dose: 20 meq Fluticasone/Salmeterol (Advair Diskus 250/50) 1 puff IH RQ12 [facility] Last Admin: 01/20/18 07:39 Dose: Not Given Sitagliptin Phosphate (Januvia) 50 mg PO DAILY [facility] Last Admin: 01/19/18 10:33 Dose: 50 mg Zolpidem Tartrate (Ambien) 5 mg PO HS PRN PRN Reason: Insomnia - Labs Labs: 01/20/18 06:31 01/20/18 06:31 PT 23.9 SECONDS (9.7-12.2) H 01/20/18 06:31 INR 2.1 01/20/18 06:31 APTT 38 SECONDS (21-34) H 01/18/18 07:11 - Constitutional Appears: Well, Non-toxic, No Acute Distress - Extremities Exam Additional comments: Left lower extremity focused exam: strikethough noted to dressings Vasc: Non-palpable pedal pulses due to edema b/l, TG warm to warm, CFT < 3 sec to all digits, +1 pitting edema Derm: +1 pitting edema to legs bilateral, localized erythema to mid-calf bilateral. Left: multiple open ulcerations noted to the to Anterior and lateral and posterior aspect of the left leg circumferentally, with active serous drainage, wound base is granular/fibrotic base with patches of necrotic tissue, with shital-wound macerations. Mild amount of purulence, moderate amount of serosanginous drainage noted, moderate malodor noted. Neuro: sensation grossly diminished MUSC: pain on palpation of posterior and medial legs b/l - Neurological Exam Neurological Exam: Alert, Awake, Oriented x3 - Psychiatric Exam Psychiatric exam: Normal Affect, Normal Mood Assessment and Plan - Assessment and Plan (Free Text) Assessment: 57 year old male presents with venous statis ulceration Plan: patient examined and evaluated with attending, Dr. Laguna chart, labs, vitals reviewed;afebrile, WBC 6.0 wound culture obtained-Pseudomonas aeruginosa, Enterococcus faecalis cont IV abx per ID left dressing cleansed with normal sterile saline, dressed with bactroban, telfa non-adherent, ABD, kerlix cont pain meds per primary left tib-fib xray-IMPRESSION:Diffuse soft tissue swelling/infiltration consistent with a cellulitis. The no obvious cortical destructive changes. There are displaced fracture nor dislocation Total knee arthroplasty intact without evidence of hardware failure patients INR is currently 2.1, would like INR to be closer to 1.2 before wound debridement, therefore wound debridment will be postponed until INR reaches level, patient scheduled for OR on Thursday morning pending INR podiatry will continue to follow patient while in house <Casey Laguna - Last Filed: 01/20/18 21:13> Objective - Vital Signs/Intake and Output Vital Signs (last 24 hours): Temp Pulse Resp BP Pulse Ox 97.9 F 61 20 125/70 95 01/20/18 15:19 01/20/18 15:19 01/20/18 15:19 01/20/18 18:03 01/20/18 15:19 - Medications Medications: Current Medications Acetaminophen (Tylenol 325mg Tab) 650 mg PO Q6 PRN PRN Reason: Headache Docusate Sodium (Colace) 100 mg PO DAILY [facility] Last Admin: 01/20/18 11:00 Dose: 100 mg Enoxaparin Sodium (Lovenox) 40 mg SC DAILY [facility] Last Admin: 01/20/18 11:00 Dose: 40 mg Furosemide (Lasix) 40 mg PO BID [facility] Last Admin: 01/20/18 18:03 Dose: 40 mg Hydralazine HCl (Apresoline) 25 mg PO Q8 [facility] Last Admin: 01/20/18 21:00 Dose: 25 mg Vancomycin/Sodium Chloride (Vancomycin 1 Gm/Ns 200 Ml) 1 gm in 200 mls @ 166.6 mls/hr IVPB Q12H [facility] Stop: 01/22/18 15:01 Last Admin: 01/20/18 15:40 Dose: 166.6 mls/hr Ciprofloxacin (Cipro 400mg/200ml Dsw) 400 mg in 200 mls @ 133 mls/hr IVPB Q12H [facility] Last Admin: 01/20/18 20:15 Dose: 133 mls/hr Insulin Human Regular (Novolin R) 0 unit SC ACHS [facility] PRN Reason: Protocol Last Admin: 01/20/18 17:00 Dose: Not Given Levothyroxine Sodium (Synthroid) 75 mcg PO 0630 [facility] Last Admin: 01/20/18 05:51 Dose: 75 mcg Metformin HCl (Glucophage Xr) 500 mg PO BID [facility] Last Admin: 01/20/18 18:30 Dose: 500 mg Montelukast Sodium (Singulair) 10 mg PO HS [facility] Last Admin: 01/19/18 21:26 Dose: 10 mg Multivitamins (Hexavitamin) 1 tab PO DAILY [facility] Last Admin: 01/20/18 11:13 Dose: 1 tab Mupirocin (Bactroban Ointment) 3 gm TOP BID [facility] Last Admin: 01/20/18 18:00 Dose: Not Given Oxycodone HCl (Oxycodone Immediate Release Tab) 15 mg PO Q4H PRN PRN Reason: Pain, moderate (4-7) Last Admin: 01/17/18 15:06 Dose: 15 mg Oxycodone HCl (Oxycontin Extended Release Tab) 80 mg PO Q6H [facility] Last Admin: 01/20/18 20:49 Dose: 80 mg Pantoprazole Sodium (Protonix Ec Tab) 40 mg PO DAILY [facility] Last Admin: 01/20/18 11:00 Dose: 40 mg Potassium Chloride (K-Dur 20 Meq Er Tab) 20 meq PO DAILY [facility] Last Admin: 01/20/18 11:00 Dose: 20 meq Fluticasone/Salmeterol (Advair Diskus 250/50) 1 puff IH RQ12 [facility] Last Admin: 01/20/18 07:39 Dose: Not Given Sitagliptin Phosphate (Januvia) 50 mg PO DAILY [facility] Last Admin: 01/20/18 11:00 Dose: 50 mg Zolpidem Tartrate (Ambien) 5 mg PO HS PRN PRN Reason: Insomnia - Labs Labs: 01/20/18 06:31 01/20/18 06:31 PT 23.9 SECONDS (9.7-12.2) H 01/20/18 06:31 INR 2.1 01/20/18 06:31 APTT 38 SECONDS (21-34) H 01/18/18 07:11 Assessment and Plan - Assessment and Plan (Free Text) Plan: Pt seen at bedside this PM . agree with above findings .lab/chart reviewed . we will debride later this week pending normal INR ./DR LAGUNA
--- NOTE | 2018-01-20 12:09 | CP.PCM.PN ---
Subjective - Date & Time of Evaluation Date of Evaluation: 01/20/18 Time of Evaluation: 12:08 - Subjective Subjective: DISCUSSED PLAN WITH DR. RODRIGUEZ, PODIATRY RESIDENT. DR. WALLACE IN AGREEMENT WITH DOSE OF VITAMIN K TO BE GIVEN TO HELP LOWER PT'S INR (TODAY INR IS 2.1); WILL CONTINUE LOVENOX SQ QD UNTIL TOMORROW (WILL HOLD THURSDAY'S DOSE). PER PODIATRY, THEY WILL MOST LIKELY SCHEDULE THE PT FOR DEBRIDEMENT ON THURSDAY. AT THIS TIME WE WILL CONTINUE TO MONITOR PT/INR (ORDERED FOR TOMORROW MORNING). PER DR. WALLACE, PT IS MEDICALLY STABLE FOR DEBRIDEMENT IN THE OR WHEN IT IS SCHEDULED BY PODIATRY TEAM. NO FURTHER ORDERS AT THIS TIME. Objective - Vital Signs/Intake and Output Vital Signs (last 24 hours): Temp Pulse Resp BP Pulse Ox 98.2 F 68 20 125/82 96 01/20/18 08:37 01/20/18 08:37 01/20/18 08:37 01/20/18 11:00 01/20/18 08:37 Intake and Output: 01/20/18 01/20/18 06:59 18:59 Intake Total 720 Output Total 1000 Balance -280 - Medications Medications: Current Medications Acetaminophen (Tylenol 325mg Tab) 650 mg PO Q6 PRN PRN Reason: Headache Docusate Sodium (Colace) 100 mg PO DAILY [facility] Last Admin: 01/20/18 11:00 Dose: 100 mg Enoxaparin Sodium (Lovenox) 40 mg SC DAILY [facility] Last Admin: 01/20/18 11:00 Dose: 40 mg Furosemide (Lasix) 40 mg PO BID [facility] Last Admin: 01/20/18 11:00 Dose: 40 mg Hydralazine HCl (Apresoline) 25 mg PO Q8 [facility] Last Admin: 01/20/18 05:51 Dose: 25 mg Vancomycin/Sodium Chloride (Vancomycin 1 Gm/Ns 200 Ml) 1 gm in 200 mls @ 166.6 mls/hr IVPB Q12H [facility] Stop: 01/22/18 15:01 Last Admin: 01/20/18 02:48 Dose: 166.6 mls/hr Piperacillin Sod/Tazobactam (Sod 3.375 gm/ Sodium Chloride) 100 mls @ 100 mls/ hr IVPB Q6H [facility] Last Admin: 01/20/18 08:20 Dose: 100 mls/hr Insulin Human Regular (Novolin R) 0 unit SC ACHS [facility] PRN Reason: Protocol Last Admin: 01/20/18 12:03 Dose: Not Given Levothyroxine Sodium (Synthroid) 75 mcg PO 0630 [facility] Last Admin: 01/20/18 05:51 Dose: 75 mcg Metformin HCl (Glucophage Xr) 500 mg PO BID [facility] Last Admin: 01/19/18 19:28 Dose: Not Given Montelukast Sodium (Singulair) 10 mg PO HS [facility] Last Admin: 01/19/18 21:26 Dose: 10 mg Multivitamins (Hexavitamin) 1 tab PO DAILY [facility] Last Admin: 01/20/18 11:13 Dose: 1 tab Mupirocin (Bactroban Ointment) 3 gm TOP BID [facility] Last Admin: 01/19/18 19:28 Dose: Not Given Oxycodone HCl (Oxycodone Immediate Release Tab) 15 mg PO Q4H PRN PRN Reason: Pain, moderate (4-7) Last Admin: 01/17/18 15:06 Dose: 15 mg Oxycodone HCl (Oxycontin Extended Release Tab) 80 mg PO Q6H [facility] Last Admin: 01/20/18 08:19 Dose: 80 mg Oxycodone/Acetaminophen (Percocet 5/325 Mg Tab) 2 tab PO Q4H PRN PRN Reason: Pain, severe (8-10) Stop: 01/20/18 20:46 Last Admin: 01/20/18 11:21 Dose: 2 tab Pantoprazole Sodium (Protonix Ec Tab) 40 mg PO DAILY [facility] Last Admin: 01/20/18 11:00 Dose: 40 mg Phytonadione (Vitamin K Inj) 10 mg SC ONCE ONE Stop: 01/20/18 13:01 Potassium Chloride (K-Dur 20 Meq Er Tab) 20 meq PO DAILY [facility] Last Admin: 01/20/18 11:00 Dose: 20 meq Fluticasone/Salmeterol (Advair Diskus 250/50) 1 puff IH RQ12 [facility] Last Admin: 01/20/18 07:39 Dose: Not Given Sitagliptin Phosphate (Januvia) 50 mg PO DAILY [facility] Last Admin: 01/19/18 10:33 Dose: 50 mg Zolpidem Tartrate (Ambien) 5 mg PO HS PRN PRN Reason: Insomnia - Labs Labs: 01/20/18 06:31 01/20/18 06:31 PT 23.9 SECONDS (9.7-12.2) H 01/20/18 06:31 INR 2.1 01/20/18 06:31 APTT 38 SECONDS (21-34) H 01/18/18 07:11
[2018-01-20] MEDS ORDERED: Phytonadione 10 mg/ml Inj (Adult) SC ONE (13:00)
[2018-01-20] MEDS: oxyCODONE 80 mg ER Tab (oxyCONTIN) PO SCH ×2 (15:10→20:49)
--- NOTE | 2018-01-20 18:11 | CP.PCM.PN ---
Subjective - Date & Time of Evaluation Date of Evaluation: 01/20/18 Time of Evaluation: 09:00 - Subjective Subjective: EVENTS NOTED AWAITING DEBRIDEMENT IN OR IV RX IN PROGRESS Objective - Vital Signs/Intake and Output Vital Signs (last 24 hours): Temp Pulse Resp BP Pulse Ox 97.9 F 61 20 94/59 L 95 01/20/18 15:19 01/20/18 15:19 01/20/18 15:19 01/20/18 15:19 01/20/18 15:19 Intake and Output: 01/20/18 01/20/18 06:59 18:59 Intake Total 720 Output Total 1000 Balance -280 - Medications Medications: Current Medications Acetaminophen (Tylenol 325mg Tab) 650 mg PO Q6 PRN PRN Reason: Headache Docusate Sodium (Colace) 100 mg PO DAILY [facility] Last Admin: 01/20/18 11:00 Dose: 100 mg Enoxaparin Sodium (Lovenox) 40 mg SC DAILY [facility] Last Admin: 01/20/18 11:00 Dose: 40 mg Furosemide (Lasix) 40 mg PO BID [facility] Last Admin: 01/20/18 11:00 Dose: 40 mg Hydralazine HCl (Apresoline) 25 mg PO Q8 [facility] Last Admin: 01/20/18 14:55 Dose: 25 mg Vancomycin/Sodium Chloride (Vancomycin 1 Gm/Ns 200 Ml) 1 gm in 200 mls @ 166.6 mls/hr IVPB Q12H [facility] Stop: 01/22/18 15:01 Last Admin: 01/20/18 15:40 Dose: 166.6 mls/hr Piperacillin Sod/Tazobactam (Sod 3.375 gm/ Sodium Chloride) 100 mls @ 100 mls/ hr IVPB Q6H [facility] Last Admin: 01/20/18 14:55 Dose: 100 mls/hr Insulin Human Regular (Novolin R) 0 unit SC ACHS [facility] PRN Reason: Protocol Last Admin: 01/20/18 17:00 Dose: Not Given Levothyroxine Sodium (Synthroid) 75 mcg PO 0630 [facility] Last Admin: 01/20/18 05:51 Dose: 75 mcg Metformin HCl (Glucophage Xr) 500 mg PO BID [facility] Last Admin: 01/20/18 10:55 Dose: 500 mg Montelukast Sodium (Singulair) 10 mg PO HS [facility] Last Admin: 01/19/18 21:26 Dose: 10 mg Multivitamins (Hexavitamin) 1 tab PO DAILY [facility] Last Admin: 01/20/18 11:13 Dose: 1 tab Mupirocin (Bactroban Ointment) 3 gm TOP BID [facility] Last Admin: 01/20/18 10:45 Dose: 1 applic Oxycodone HCl (Oxycodone Immediate Release Tab) 15 mg PO Q4H PRN PRN Reason: Pain, moderate (4-7) Last Admin: 01/17/18 15:06 Dose: 15 mg Oxycodone HCl (Oxycontin Extended Release Tab) 80 mg PO Q6H [facility] Last Admin: 01/20/18 15:10 Dose: Not Given Oxycodone/Acetaminophen (Percocet 5/325 Mg Tab) 2 tab PO Q4H PRN PRN Reason: Pain, severe (8-10) Stop: 01/20/18 20:46 Last Admin: 01/20/18 17:29 Dose: 2 tab Pantoprazole Sodium (Protonix Ec Tab) 40 mg PO DAILY [facility] Last Admin: 01/20/18 11:00 Dose: 40 mg Potassium Chloride (K-Dur 20 Meq Er Tab) 20 meq PO DAILY [facility] Last Admin: 01/20/18 11:00 Dose: 20 meq Fluticasone/Salmeterol (Advair Diskus 250/50) 1 puff IH RQ12 [facility] Last Admin: 01/20/18 07:39 Dose: Not Given Sitagliptin Phosphate (Januvia) 50 mg PO DAILY [facility] Last Admin: 01/20/18 11:00 Dose: 50 mg Zolpidem Tartrate (Ambien) 5 mg PO HS PRN PRN Reason: Insomnia - Labs Labs: 01/20/18 06:31 01/20/18 06:31 PT 23.9 SECONDS (9.7-12.2) H 01/20/18 06:31 INR 2.1 01/20/18 06:31 APTT 38 SECONDS (21-34) H 01/18/18 07:11 - Constitutional Appears: Non-toxic, Chronically Ill - Head Exam Head Exam: NORMOCEPHALIC - Eye Exam Eye Exam: PERRL - ENT Exam ENT Exam: Mucous Membranes Dry - Neck Exam Neck Exam: absent: Lymphadenopathy - Respiratory Exam Respiratory Exam: Decreased Breath Sounds - Cardiovascular Exam Cardiovascular Exam: REGULAR RHYTHM - GI/Abdominal Exam GI & Abdominal Exam: Diminished Bowel Sounds - Rectal Exam Rectal Exam: Deferred - Exam Exam: NORMAL INSPECTION - Extremities Exam Extremities Exam: absent: Pedal Edema - Back Exam Back Exam: absent: CVA tenderness (L), CVA tenderness (R) - Neurological Exam Neurological Exam: Alert, Awake, Oriented x3 - Psychiatric Exam Psychiatric exam: Depressed Assessment and Plan (1) Cellulitis Status: Acute (2) Infected ulcer of skin Status: Acute (3) Cellulitis Status: Acute (4) Leg ulcer Status: Acute (5) Morbid obesity Status: Acute (6) Obstructive sleep apnea Status: Acute (7) PVD (peripheral vascular disease) Status: Acute
[2018-01-20] MEDS: Ciprofloxacin 400mg/200ml D5W 400 MG/200 ML BAG IVPB SCH (20:15)
--- NOTE | 2018-01-20 23:12 | CP.PCM.PN ---
Subjective - Date & Time of Evaluation Date of Evaluation: 01/20/18 Time of Evaluation: 19:00 - Subjective Subjective: Pt is seen and examined. His PT , INR needs to go down, on antibiotics, also seen by podiatry, left calf ulcer for OR tommorow, pt is medically clear for OR Objective - Vital Signs/Intake and Output Vital Signs (last 24 hours): Temp Pulse Resp BP Pulse Ox 97.9 F 61 20 125/70 95 01/20/18 15:19 01/20/18 15:19 01/20/18 15:19 01/20/18 18:03 01/20/18 15:19 Intake and Output: 01/20/18 01/21/18 18:59 06:59 Output Total 550 Balance -550 - Medications Medications: Current Medications Acetaminophen (Tylenol 325mg Tab) 650 mg PO Q6 PRN PRN Reason: Headache Docusate Sodium (Colace) 100 mg PO DAILY [facility] Last Admin: 01/20/18 11:00 Dose: 100 mg Enoxaparin Sodium (Lovenox) 40 mg SC DAILY [facility] Last Admin: 01/20/18 11:00 Dose: 40 mg Furosemide (Lasix) 40 mg PO BID [facility] Last Admin: 01/20/18 18:03 Dose: 40 mg Hydralazine HCl (Apresoline) 25 mg PO Q8 [facility] Last Admin: 01/20/18 21:00 Dose: 25 mg Vancomycin/Sodium Chloride (Vancomycin 1 Gm/Ns 200 Ml) 1 gm in 200 mls @ 166.6 mls/hr IVPB Q12H [facility] Stop: 01/22/18 15:01 Last Admin: 01/20/18 15:40 Dose: 166.6 mls/hr Ciprofloxacin (Cipro 400mg/200ml Dsw) 400 mg in 200 mls @ 133 mls/hr IVPB Q12H [facility] Last Admin: 01/20/18 20:15 Dose: 133 mls/hr Insulin Human Regular (Novolin R) 0 unit SC ACHS [facility] PRN Reason: Protocol Last Admin: 01/20/18 21:43 Dose: Not Given Levothyroxine Sodium (Synthroid) 75 mcg PO 0630 [facility] Last Admin: 01/20/18 05:51 Dose: 75 mcg Metformin HCl (Glucophage Xr) 500 mg PO BID [facility] Last Admin: 02/21/18 18:30 Dose: 500 mg Montelukast Sodium (Singulair) 10 mg PO HS [facility] Last Admin: 01/19/18 21:26 Dose: 10 mg Multivitamins (Hexavitamin) 1 tab PO DAILY [facility] Last Admin: 01/20/18 11:13 Dose: 1 tab Mupirocin (Bactroban Ointment) 3 gm TOP BID [facility] Last Admin: 01/20/18 18:00 Dose: Not Given Oxycodone HCl (Oxycodone Immediate Release Tab) 15 mg PO Q4H PRN PRN Reason: Pain, moderate (4-7) Last Admin: 01/17/18 15:06 Dose: 15 mg Oxycodone HCl (Oxycontin Extended Release Tab) 80 mg PO Q6H [facility] Last Admin: 01/20/18 20:49 Dose: 80 mg Pantoprazole Sodium (Protonix Ec Tab) 40 mg PO DAILY [facility] Last Admin: 01/20/18 11:00 Dose: 40 mg Potassium Chloride (K-Dur 20 Meq Er Tab) 20 meq PO DAILY [facility] Last Admin: 01/20/18 11:00 Dose: 20 meq Fluticasone/Salmeterol (Advair Diskus 250/50) 1 puff IH RQ12 [facility] Last Admin: 01/20/18 07:39 Dose: Not Given Sitagliptin Phosphate (Januvia) 50 mg PO DAILY [facility] Last Admin: 01/20/18 11:00 Dose: 50 mg Zolpidem Tartrate (Ambien) 5 mg PO HS PRN PRN Reason: Insomnia - Labs Labs: 01/20/18 06:31 01/20/18 06:31 PT 23.9 SECONDS (9.7-12.2) H 01/20/18 06:31 INR 2.1 01/20/18 06:31 APTT 38 SECONDS (21-34) H 01/18/18 07:11 - Constitutional Appears: No Acute Distress - Head Exam Head Exam: ATRAUMATIC, NORMAL INSPECTION, NORMOCEPHALIC - Eye Exam Eye Exam: EOMI, Normal appearance, PERRL Pupil Exam: NORMAL ACCOMODATION, PERRL - Respiratory Exam Respiratory Exam: Decreased Breath Sounds, Rhonchi - Cardiovascular Exam Cardiovascular Exam: REGULAR RHYTHM, +S1, +S2. absent: Murmur - GI/Abdominal Exam GI & Abdominal Exam: Soft, Normal Bowel Sounds. absent: Tenderness - Rectal Exam Rectal Exam: Deferred - Extremities Exam Extremities Exam: Joint Swelling, Pedal Edema, Tenderness Assessment and Plan (1) Cellulitis Status: Acute (2) Infected ulcer of skin Status: Acute (3) Morbid obesity Status: Acute (4) Obstructive sleep apnea Status: Acute (5) PVD (peripheral vascular disease) Status: Acute (6) Type 2 diabetes mellitus Status: Acute
[2018-01-21] MEDS: oxyCODONE 80 mg ER Tab (oxyCONTIN) PO SCH ×4 (02:59→20:24)
[2018-01-21] MEDS: Vancomycin 1 gm/NS 200 ml 1 GM/200 ML BAG IVPB SCH ×2 (03:11→14:22)
[2018-01-21] MEDS: Oxycodone/Acetaminophen 5/325 mg Tab PO PRN ×5 (03:58→22:13)
[2018-01-21] MEDS: Levothyroxine 75 MCG TAB PO SCH (06:01)
[2018-01-21] MEDS: Ciprofloxacin 400mg/200ml D5W 400 MG/200 ML BAG IVPB SCH ×2 (06:03→19:53)
[2018-01-21] MEDS: (Novolin R) Insulin Human Regular 100 units/ml vial SC SCH ×4 (07:27→21:05)
[2018-01-21] MEDS: Fluticasone-Salmeterol 250-50mcg Diskus IH SCH ×2 (08:03→19:46)
[2018-01-21 09:10] LABS: HEMOGLOBIN 11.3 g/dL (12.0-18.0); MEAN CELL VOLUME 79.1 fL (80.0-94.0); MEAN CORPUSCULAR HEMOGLOBIN 25.9 pg (27.0-31.0); MEAN CORPUSCULAR HGB CONC 32.7 g/dL (33.0-37.0); MEAN PLATELET VOLUME 9.3 fL (7.2-11.7); RBC 4.36 Mil/uL (4.40-5.90); RED CELL DISTRIBUTION WIDTH 14.6 % (11.5-14.5); WHITE BLOOD COUNT 5.6 K/uL (4.8-10.8)
[2018-01-21 09:13] LABS: INR 1.5
[2018-01-21 09:17] LABS: PROTHROMBIN TIME 16.7 SECONDS (9.7-12.2)
[2018-01-21] MEDS: Multiple Vitamins Tab PO SCH (09:21)
[2018-01-21] MEDS: Pantoprazole 40 mg EC Tab PO SCH (09:21)
[2018-01-21] MEDS: Enoxaparin 40 mg Syringe SC SCH (09:21)
[2018-01-21] MEDS: Potassium Chloride 20 mEq ER Tab PO SCH (09:21)
[2018-01-21 09:26] LABS: BLOOD UREA NITROGEN 20 mg/dL (9-20); GFR AFRICAN-AMERICAN > 60; GFR NON-AFRICAN AMERICAN > 60
--- NOTE | 2018-01-21 09:54 | CP.PCM.PN ---
Subjective - Date & Time of Evaluation Date of Evaluation: 01/21/18 Time of Evaluation: 09:54 - Subjective Subjective: Podiatry Progress note for Dr. Laguna 57 year old male was seen resting comfortably at bedside with attending, Dr. Laguna regarding left lower extremity ulcerations. Patient states that he does have pain to his left lower extremity upon touch. He is AAOx3, NAD. Currently denies any n/v/f/c/sob/cp. Patient is aware that he is scheduled for a left leg wound debridment tomorrow. Objective - Vital Signs/Intake and Output Vital Signs (last 24 hours): Temp Pulse Resp BP Pulse Ox 97.5 F L 62 20 125/81 97 01/21/18 08:20 01/21/18 08:20 01/21/18 08:20 01/21/18 09:21 01/21/18 08:20 Intake and Output: 01/21/18 01/21/18 06:59 18:59 Intake Total 820 Output Total 2150 Balance -1330 - Medications Medications: Current Medications Acetaminophen (Tylenol 325mg Tab) 650 mg PO Q6 PRN PRN Reason: Headache Docusate Sodium (Colace) 100 mg PO DAILY [facility] Last Admin: 01/21/18 09:21 Dose: 100 mg Enoxaparin Sodium (Lovenox) 40 mg SC DAILY [facility] Last Admin: 01/21/18 09:21 Dose: 40 mg Furosemide (Lasix) 40 mg PO BID [facility] Last Admin: 01/21/18 09:21 Dose: 40 mg Hydralazine HCl (Apresoline) 25 mg PO Q8 [facility] Last Admin: 01/21/18 06:01 Dose: 25 mg Vancomycin/Sodium Chloride (Vancomycin 1 Gm/Ns 200 Ml) 1 gm in 200 mls @ 166.6 mls/hr IVPB Q12H [facility] Stop: 01/22/18 15:01 Last Admin: 01/21/18 03:11 Dose: 166.6 mls/hr Ciprofloxacin (Cipro 400mg/200ml Dsw) 400 mg in 200 mls @ 133 mls/hr IVPB Q12H [facility] Last Admin: 01/21/18 06:03 Dose: 133 mls/hr Insulin Human Regular (Novolin R) 0 unit SC ACHS [facility] PRN Reason: Protocol Last Admin: 01/21/18 07:27 Dose: Not Given Levothyroxine Sodium (Synthroid) 75 mcg PO 0630 [facility] Last Admin: 01/21/18 06:01 Dose: 75 mcg Metformin HCl (Glucophage Xr) 500 mg PO BID [facility] Last Admin: 01/21/18 09:21 Dose: 500 mg Montelukast Sodium (Singulair) 10 mg PO HS [facility] Last Admin: 01/21/18 00:28 Dose: 10 mg Multivitamins (Hexavitamin) 1 tab PO DAILY [facility] Last Admin: 01/21/18 09:21 Dose: 1 tab Mupirocin (Bactroban Ointment) 3 gm TOP BID [facility] Last Admin: 01/21/18 09:33 Dose: Not Given Oxycodone HCl (Oxycodone Immediate Release Tab) 15 mg PO Q4H PRN PRN Reason: Pain, moderate (4-7) Last Admin: 01/17/18 15:06 Dose: 15 mg Oxycodone HCl (Oxycontin Extended Release Tab) 80 mg PO Q6H [facility] Last Admin: 01/21/18 08:02 Dose: 80 mg Oxycodone/Acetaminophen (Percocet 5/325 Mg Tab) 2 tab PO Q4H PRN PRN Reason: pain Stop: 01/23/18 23:25 Last Admin: 01/21/18 09:22 Dose: 2 tab Pantoprazole Sodium (Protonix Ec Tab) 40 mg PO DAILY [facility] Last Admin: 01/21/18 09:21 Dose: 40 mg Potassium Chloride (K-Dur 20 Meq Er Tab) 20 meq PO DAILY [facility] Last Admin: 01/21/18 09:21 Dose: 20 meq Fluticasone/Salmeterol (Advair Diskus 250/50) 1 puff IH RQ12 [facility] Last Admin: 01/20/18 07:39 Dose: Not Given Sitagliptin Phosphate (Januvia) 50 mg PO DAILY [facility] Last Admin: 01/21/18 09:21 Dose: 50 mg Zolpidem Tartrate (Ambien) 5 mg PO HS PRN PRN Reason: Insomnia - Labs Labs: 01/21/18 08:58 01/21/18 08:58 PT 16.7 SECONDS (9.7-12.2) H D 01/21/18 08:58 INR 1.5 D 01/21/18 08:58 APTT 38 SECONDS (21-34) H 01/18/18 07:11 - Constitutional Appears: Well, Non-toxic, No Acute Distress - Extremities Exam Additional comments: Left lower extremity focused exam: strikethough noted to dressings Vasc: Non-palpable pedal pulses due to edema b/l, TG warm to warm, CFT < 3 sec to all digits, +1 pitting edema Derm: +1 pitting edema to legs bilateral, localized erythema to mid-calf bilateral. Left: multiple open ulcerations noted to the to Anterior and lateral and posterior aspect of the left leg circumferentally, with active serous drainage, wound base is granular/fibrotic base with patches of necrotic tissue, with shital-wound macerations. Mild amount of purulence, moderate amount of serosanginous drainage noted, moderate malodor noted. Neuro: sensation grossly diminished MUSC: pain on palpation of posterior and medial legs b/l - Neurological Exam Neurological Exam: Alert, Awake, Oriented x3 - Psychiatric Exam Psychiatric exam: Normal Affect, Normal Mood Assessment and Plan - Assessment and Plan (Free Text) Assessment: 57 year old male presents with venous statis ulceration Plan: patient examined and evaluated with attending, Dr. Laguna chart, labs, vitals reviewed;afebrile, WBC 5.6 wound culture obtained-Pseudomonas aeruginosa, Enterococcus faecalis cont IV abx per ID left dressing cleansed with normal sterile saline, dressed with bactroban, telfa non-adherent, ABD, kerlix cont pain meds per primary left tib-fib xray-IMPRESSION:Diffuse soft tissue swelling/infiltration consistent with a cellulitis. The no obvious cortical destructive changes. There are displaced fracture nor dislocation Total knee arthroplasty intact without evidence of hardware failure medical optimization in chart patients INR is currently 1.5, patient scheduled for OR on Thursday morning pending INR podiatry will continue to follow patient while in house
--- NOTE | 2018-01-21 18:12 | CP.PCM.PN ---
Subjective - Date & Time of Evaluation Date of Evaluation: 01/21/18 Time of Evaluation: 09:00 - Subjective Subjective: antibiotics adjusted going for debridement in am Objective - Vital Signs/Intake and Output Vital Signs (last 24 hours): Temp Pulse Resp BP Pulse Ox 98.0 F 66 20 123/78 96 01/21/18 16:00 01/21/18 16:00 01/21/18 16:00 01/21/18 17:22 01/21/18 16:00 Intake and Output: 01/21/18 01/21/18 06:59 18:59 Intake Total 820 Output Total 2150 Balance -1330 - Medications Medications: Current Medications Acetaminophen (Tylenol 325mg Tab) 650 mg PO Q6 PRN PRN Reason: Headache Docusate Sodium (Colace) 100 mg PO DAILY [facility] Last Admin: 01/21/18 09:21 Dose: 100 mg Enoxaparin Sodium (Lovenox) 40 mg SC DAILY [facility] Last Admin: 01/21/18 09:21 Dose: 40 mg Furosemide (Lasix) 40 mg PO BID [facility] Last Admin: 01/21/18 17:22 Dose: 40 mg Hydralazine HCl (Apresoline) 25 mg PO Q8 [facility] Last Admin: 01/21/18 14:22 Dose: 25 mg Vancomycin/Sodium Chloride (Vancomycin 1 Gm/Ns 200 Ml) 1 gm in 200 mls @ 166.6 mls/hr IVPB Q12H [facility] Stop: 01/22/18 15:01 Last Admin: 01/21/18 14:22 Dose: 166.6 mls/hr Ciprofloxacin (Cipro 400mg/200ml Dsw) 400 mg in 200 mls @ 133 mls/hr IVPB Q12H [facility] Last Admin: 01/21/18 06:03 Dose: 133 mls/hr Insulin Human Regular (Novolin R) 0 unit SC ACHS [facility] PRN Reason: Protocol Last Admin: 01/21/18 17:27 Dose: Not Given Levothyroxine Sodium (Synthroid) 75 mcg PO 0630 [facility] Last Admin: 01/21/18 06:01 Dose: 75 mcg Metformin HCl (Glucophage Xr) 500 mg PO BID [facility] Last Admin: 01/21/18 17:22 Dose: 500 mg Montelukast Sodium (Singulair) 10 mg PO HS [facility] Last Admin: 01/21/18 00:28 Dose: 10 mg Multivitamins (Hexavitamin) 1 tab PO DAILY [facility] Last Admin: 01/21/18 09:21 Dose: 1 tab Mupirocin (Bactroban Ointment) 3 gm TOP BID [facility] Last Admin: 01/21/18 17:28 Dose: 1 applic Oxycodone HCl (Oxycodone Immediate Release Tab) 15 mg PO Q4H PRN PRN Reason: Pain, moderate (4-7) Last Admin: 01/17/18 15:06 Dose: 15 mg Oxycodone HCl (Oxycontin Extended Release Tab) 80 mg PO Q6H [facility] Last Admin: 01/21/18 14:22 Dose: 80 mg Oxycodone/Acetaminophen (Percocet 5/325 Mg Tab) 2 tab PO Q4H PRN PRN Reason: pain Stop: 01/23/18 23:25 Last Admin: 01/21/18 17:22 Dose: 2 tab Pantoprazole Sodium (Protonix Ec Tab) 40 mg PO DAILY [facility] Last Admin: 01/21/18 09:21 Dose: 40 mg Potassium Chloride (K-Dur 20 Meq Er Tab) 20 meq PO DAILY [facility] Last Admin: 01/21/18 09:21 Dose: 20 meq Fluticasone/Salmeterol (Advair Diskus 250/50) 1 puff IH RQ12 [facility] Last Admin: 01/21/18 08:03 Dose: Not Given Sitagliptin Phosphate (Januvia) 50 mg PO DAILY [facility] Last Admin: 01/21/18 09:21 Dose: 50 mg Zolpidem Tartrate (Ambien) 5 mg PO HS PRN PRN Reason: Insomnia - Labs Labs: 01/21/18 08:58 01/21/18 08:58 PT 16.7 SECONDS (9.7-12.2) H D 01/21/18 08:58 INR 1.5 D 01/21/18 08:58 APTT 38 SECONDS (21-34) H 01/18/18 07:11 - Constitutional Appears: Non-toxic, Chronically Ill - Head Exam Head Exam: NORMOCEPHALIC - Eye Exam Eye Exam: PERRL - ENT Exam ENT Exam: Mucous Membranes Dry - Neck Exam Neck Exam: absent: Lymphadenopathy - Respiratory Exam Respiratory Exam: Decreased Breath Sounds - Cardiovascular Exam Cardiovascular Exam: REGULAR RHYTHM - GI/Abdominal Exam GI & Abdominal Exam: Distended, Soft - Rectal Exam Rectal Exam: Deferred - Exam Exam: NORMAL INSPECTION - Extremities Exam Extremities Exam: absent: Pedal Edema - Back Exam Back Exam: absent: CVA tenderness (L), CVA tenderness (R) - Neurological Exam Neurological Exam: Alert, Awake, Oriented x3 - Psychiatric Exam Psychiatric exam: Normal Mood - Skin Skin Exam: Dry Assessment and Plan (1) Cellulitis Status: Acute (2) Infected ulcer of skin Status: Acute (3) Cellulitis Status: Acute (4) Leg ulcer Status: Acute (5) Morbid obesity Status: Acute (6) Obstructive sleep apnea Status: Acute (7) PVD (peripheral vascular disease) Status: Acute
--- NOTE | 2018-01-21 20:05 | CP.PCM.PN ---
Subjective - Date & Time of Evaluation Date of Evaluation: 01/21/18 Time of Evaluation: 19:40 - Subjective Subjective: Pt seen and examined at bedside , pt is for OR tomorrow, c/o nasal congestion no shortness of breath, chest pain Objective - Vital Signs/Intake and Output Vital Signs (last 24 hours): Temp Pulse Resp BP Pulse Ox 98.0 F 66 20 123/78 96 01/21/18 16:00 01/21/18 16:00 01/21/18 16:00 01/21/18 17:22 01/21/18 16:00 - Medications Medications: Current Medications Acetaminophen (Tylenol 325mg Tab) 650 mg PO Q6 PRN PRN Reason: Headache Docusate Sodium (Colace) 100 mg PO DAILY [facility] Last Admin: 01/21/18 09:21 Dose: 100 mg Enoxaparin Sodium (Lovenox) 40 mg SC DAILY [facility] Last Admin: 01/21/18 09:21 Dose: 40 mg Furosemide (Lasix) 40 mg PO BID [facility] Last Admin: 01/21/18 17:22 Dose: 40 mg Hydralazine HCl (Apresoline) 25 mg PO Q8 [facility] Last Admin: 01/21/18 14:22 Dose: 25 mg Vancomycin/Sodium Chloride (Vancomycin 1 Gm/Ns 200 Ml) 1 gm in 200 mls @ 166.6 mls/hr IVPB Q12H [facility] Stop: 01/22/18 15:01 Last Admin: 01/21/18 14:22 Dose: 166.6 mls/hr Ciprofloxacin (Cipro 400mg/200ml Dsw) 400 mg in 200 mls @ 133 mls/hr IVPB Q12H [facility] Last Admin: 01/21/18 19:53 Dose: 133 mls/hr Insulin Human Regular (Novolin R) 0 unit SC ACHS [facility] PRN Reason: Protocol Last Admin: 01/21/18 17:27 Dose: Not Given Levothyroxine Sodium (Synthroid) 75 mcg PO 0630 [facility] Last Admin: 01/21/18 06:01 Dose: 75 mcg Metformin HCl (Glucophage Xr) 500 mg PO BID [facility] Last Admin: 01/21/18 17:22 Dose: 500 mg Montelukast Sodium (Singulair) 10 mg PO HS [facility] Last Admin: 01/21/18 00:28 Dose: 10 mg Multivitamins (Hexavitamin) 1 tab PO DAILY [facility] Last Admin: 01/21/18 09:21 Dose: 1 tab Mupirocin (Bactroban Ointment) 3 gm TOP BID [facility] Last Admin: 01/21/18 17:28 Dose: 1 applic Oxycodone HCl (Oxycodone Immediate Release Tab) 15 mg PO Q4H PRN PRN Reason: Pain, moderate (4-7) Last Admin: 01/17/18 15:06 Dose: 15 mg Oxycodone HCl (Oxycontin Extended Release Tab) 80 mg PO Q6H [facility] Last Admin: 01/21/18 14:22 Dose: 80 mg Oxycodone/Acetaminophen (Percocet 5/325 Mg Tab) 2 tab PO Q4H PRN PRN Reason: pain Stop: 01/23/18 23:25 Last Admin: 01/21/18 17:22 Dose: 2 tab Pantoprazole Sodium (Protonix Ec Tab) 40 mg PO DAILY [facility] Last Admin: 01/21/18 09:21 Dose: 40 mg Potassium Chloride (K-Dur 20 Meq Er Tab) 20 meq PO DAILY [facility] Last Admin: 01/21/18 09:21 Dose: 20 meq Fluticasone/Salmeterol (Advair Diskus 250/50) 1 puff IH RQ12 [facility] Last Admin: 01/21/18 19:46 Dose: Not Given Sitagliptin Phosphate (Januvia) 50 mg PO DAILY [facility] Last Admin: 01/21/18 09:21 Dose: 50 mg Zolpidem Tartrate (Ambien) 5 mg PO HS PRN PRN Reason: Insomnia - Labs Labs: 01/21/18 08:58 01/21/18 08:58 PT 16.7 SECONDS (9.7-12.2) H D 01/21/18 08:58 INR 1.5 D 01/21/18 08:58 APTT 38 SECONDS (21-34) H 01/18/18 07:11 - Constitutional Appears: No Acute Distress - Head Exam Head Exam: ATRAUMATIC, NORMAL INSPECTION, NORMOCEPHALIC - Eye Exam Eye Exam: EOMI, Normal appearance, PERRL Pupil Exam: NORMAL ACCOMODATION, PERRL - Respiratory Exam Respiratory Exam: Clear to Ausculation Bilateral, NORMAL BREATHING PATTERN - Cardiovascular Exam Cardiovascular Exam: REGULAR RHYTHM, +S1, +S2. absent: Murmur - GI/Abdominal Exam GI & Abdominal Exam: Soft, Normal Bowel Sounds. absent: Tenderness Assessment and Plan (1) Cellulitis Status: Acute (2) Infected ulcer of skin Status: Acute (3) Morbid obesity Status: Acute (4) Obstructive sleep apnea Status: Acute (5) PVD (peripheral vascular disease) Status: Acute (6) Type 2 diabetes mellitus Status: Acute
[2018-01-22] MEDS: oxyCODONE 80 mg ER Tab (oxyCONTIN) PO SCH ×4 (02:00→21:07)
[2018-01-22] MEDS: Vancomycin 1 gm/NS 200 ml 1 GM/200 ML BAG IVPB SCH ×2 (02:05→16:07)
[2018-01-22 02:18] LABS: INR 1.3; PROTHROMBIN TIME 14.4 SECONDS (9.7-12.2)
[2018-01-22] MEDS: Oxycodone/Acetaminophen 5/325 mg Tab PO PRN ×5 (03:05→19:50)
[2018-01-22] MEDS: Levothyroxine 75 MCG TAB PO SCH (06:04)
[2018-01-22] MEDS: Ciprofloxacin 400mg/200ml D5W 400 MG/200 ML BAG IVPB SCH ×2 (06:06→19:26)
[2018-01-22] MEDS: (Novolin R) Insulin Human Regular 100 units/ml vial SC SCH ×4 (07:22→23:05)
--- NOTE | 2018-01-22 07:24 | CP.PCM.PN ---
Subjective - Date & Time of Evaluation Date of Evaluation: 01/22/18 Time of Evaluation: 07:22 - Subjective Subjective: Podiatry Progress note for Dr. Laguna 57 year old male was seen and evaluated at bedside this morning for wound debridement of left leg by Dr. Laguna. NPO status confirmed. He denies any food/ drug allergies. He denies any F/C/N/V/SOB at this time. Objective - Vital Signs/Intake and Output Vital Signs (last 24 hours): Temp Pulse Resp BP Pulse Ox 97.8 F 59 L 20 121/75 97 01/22/18 04:30 01/22/18 04:30 01/22/18 04:30 01/22/18 04:30 01/22/18 04:30 Intake and Output: 01/22/18 01/22/18 06:59 18:59 Intake Total 1120 Output Total 2100 Balance -980 - Medications Medications: Current Medications Acetaminophen (Tylenol 325mg Tab) 650 mg PO Q6 PRN PRN Reason: Headache Docusate Sodium (Colace) 100 mg PO DAILY [facility] Last Admin: 01/21/18 09:21 Dose: 100 mg Enoxaparin Sodium (Lovenox) 40 mg SC DAILY [facility] Last Admin: 01/21/18 09:21 Dose: 40 mg Furosemide (Lasix) 40 mg PO BID [facility] Last Admin: 01/21/18 17:22 Dose: 40 mg Hydralazine HCl (Apresoline) 25 mg PO Q8 [facility] Last Admin: 01/22/18 06:04 Dose: 25 mg Vancomycin/Sodium Chloride (Vancomycin 1 Gm/Ns 200 Ml) 1 gm in 200 mls @ 166.6 mls/hr IVPB Q12H [facility] Stop: 01/22/18 15:01 Last Admin: 01/22/18 02:05 Dose: 166.6 mls/hr Ciprofloxacin (Cipro 400mg/200ml Dsw) 400 mg in 200 mls @ 133 mls/hr IVPB Q12H [facility] Last Admin: 01/22/18 06:06 Dose: 133 mls/hr Insulin Human Regular (Novolin R) 0 unit SC ACHS [facility] PRN Reason: Protocol Last Admin: 01/21/18 17:27 Dose: Not Given Levothyroxine Sodium (Synthroid) 75 mcg PO 0630 [facility] Last Admin: 01/22/18 06:04 Dose: 75 mcg Metformin HCl (Glucophage Xr) 500 mg PO BID [facility] Last Admin: 01/21/18 17:22 Dose: 500 mg Montelukast Sodium (Singulair) 10 mg PO HS [facility] Last Admin: 01/21/18 22:10 Dose: 10 mg Multivitamins (Hexavitamin) 1 tab PO DAILY [facility] Last Admin: 01/21/18 09:21 Dose: 1 tab Mupirocin (Bactroban Ointment) 3 gm TOP BID [facility] Last Admin: 01/21/18 17:28 Dose: 1 applic Oxycodone HCl (Oxycodone Immediate Release Tab) 15 mg PO Q4H PRN PRN Reason: Pain, moderate (4-7) Last Admin: 01/17/18 15:06 Dose: 15 mg Oxycodone HCl (Oxycontin Extended Release Tab) 80 mg PO Q6H [facility] Last Admin: 01/22/18 02:00 Dose: 80 mg Oxycodone/Acetaminophen (Percocet 5/325 Mg Tab) 2 tab PO Q4H PRN PRN Reason: pain Stop: 01/23/18 23:25 Last Admin: 01/22/18 07:02 Dose: 2 tab Pantoprazole Sodium (Protonix Ec Tab) 40 mg PO DAILY [facility] Last Admin: 01/21/18 09:21 Dose: 40 mg Potassium Chloride (K-Dur 20 Meq Er Tab) 20 meq PO DAILY [facility] Last Admin: 01/21/18 09:21 Dose: 20 meq Fluticasone/Salmeterol (Advair Diskus 250/50) 1 puff IH RQ12 [facility] Last Admin: 01/21/18 19:46 Dose: Not Given Sitagliptin Phosphate (Januvia) 50 mg PO DAILY [facility] Last Admin: 01/21/18 09:21 Dose: 50 mg Zolpidem Tartrate (Ambien) 5 mg PO HS PRN PRN Reason: Insomnia - Labs Labs: 01/21/18 08:58 01/21/18 08:58 PT 14.4 SECONDS (9.7-12.2) H 01/22/18 02:00 INR 1.3 01/22/18 02:00 APTT 33 SECONDS (21-34) 01/22/18 02:00 - Constitutional Appears: Well, Non-toxic, No Acute Distress - Extremities Exam Additional comments: dressing to LLE is intact, with some strikethrough noted - Neurological Exam Neurological Exam: Alert, Awake, Oriented x3 - Psychiatric Exam Psychiatric exam: Normal Affect, Normal Mood Assessment and Plan - Assessment and Plan (Free Text) Assessment: 57 year old male with left lower extremity venous stasis ulcerations Plan: Pt was seen and examined Pt NPO status was confirmed All Pre-op testing and clearance was in the chart Pt has exhausted all conservative treatment at this time and is opting for surgical intervention Pt was explained procedure and post-operative course All pt's questions were answered to satisfaction No guarantees were made Pt understands all risks, benefits and complications of procedure Pt will follow-up with Dr. Laguna
[2018-01-22] MEDS ORDERED: Lidocaine 1% Inj (20ml) ONE (07:36)
[2018-01-22] MEDS ORDERED: Bupivacaine HCl 0.25% PF (10 ml) Inj ONE (07:36)
[2018-01-22] MEDS ORDERED: Midazolam 2 MG/2 ML VIAL ONE ×2 (07:41→08:25)
[2018-01-22] MEDS ORDERED: Propofol 10 mg/ml Inj (20 ML) ONE (07:42)
[2018-01-22] MEDS ORDERED: Propofol 10 mg/ml 1,000 MG/100 ML VIAL ONE (08:01)
[2018-01-22 08:13] LABS: HEMOGLOBIN 10.9 g/dL (12.0-18.0); MEAN CELL VOLUME 78.8 fL (80.0-94.0); MEAN CORPUSCULAR HEMOGLOBIN 25.9 pg (27.0-31.0); MEAN CORPUSCULAR HGB CONC 32.9 g/dL (33.0-37.0); MEAN PLATELET VOLUME 9.5 fL (7.2-11.7); RBC 4.21 Mil/uL (4.40-5.90); RED CELL DISTRIBUTION WIDTH 14.7 % (11.5-14.5); WHITE BLOOD COUNT 6.4 K/uL (4.8-10.8)
[2018-01-22 08:22] LABS: BLOOD UREA NITROGEN 23 mg/dL (9-20); GFR AFRICAN-AMERICAN > 60; GFR NON-AFRICAN AMERICAN 57
--- NOTE | 2018-01-22 08:55 | PCM.SURG1 ---
Surgeon's Initial Post Op Note - Surgeon's Notes Surgeon: Dr. Laguna DPM [employer] Systems Designer: Dr Sun DPM PGY-2 Type of Anesthesia: IV Sedation, Local Anesthesia Administered By: Dr. Herbert Pre-Operative Diagnosis: left leg venous stasis ulcerations Operative Findings: see dictation Post-Operative Diagnosis: same Operation Performed: left leg wound debridement Specimen/Specimens Removed: none Estimated Blood Loss: EBL {In ML}: 20 Blood Products Given: N/A Drains Used: No Drains Post-Op Condition: Good Date of Surgery/Procedure: 01/22/18 Time of Surgery/Procedure: 08:55
[2018-01-22] MEDS ORDERED: HYDROmorphone 0.5 mg/0.5 ml ISec IVP PRN (08:56)
[2018-01-22] MEDS ORDERED: HYDROmorphone 0.5 mg/0.5 ml ISec ONE (09:05)
[2018-01-22] MEDS: Multiple Vitamins Tab PO SCH (09:24)
[2018-01-22] MEDS: Pantoprazole 40 mg EC Tab PO SCH (09:24)
[2018-01-22] MEDS: Potassium Chloride 20 mEq ER Tab PO SCH (09:24)
[2018-01-22] MEDS: Fluticasone-Salmeterol 250-50mcg Diskus IH SCH (10:22)
--- NOTE | 2018-01-22 16:41 | CP.PCM.PCO ---
Physician Communication Note - Physician Communication Note Physician Communication Note: medically stable for or average risk
--- NOTE | 2018-01-22 23:32 | CP.PCM.PN ---
Subjective - Date & Time of Evaluation Date of Evaluation: 01/22/18 Time of Evaluation: 13:45 Objective - Vital Signs/Intake and Output Vital Signs (last 24 hours): Temp Pulse Resp BP Pulse Ox 98 F 80 20 146/78 96 01/22/18 15:40 01/22/18 15:40 01/22/18 15:40 01/22/18 19:25 01/22/18 15:40 Intake and Output: 01/22/18 01/23/18 18:59 06:59 Intake Total 550 Output Total 400 Balance 550 -400 - Medications Medications: Current Medications Acetaminophen (Tylenol 325mg Tab) 650 mg PO Q6 PRN PRN Reason: Headache Ciprofloxacin (Cipro) 500 mg PO BID [facility] Docusate Sodium (Colace) 100 mg PO DAILY [facility] Last Admin: 01/22/18 09:24 Dose: 100 mg Enoxaparin Sodium (Lovenox) 40 mg SC DAILY [facility] Last Admin: 01/21/18 09:21 Dose: 40 mg Furosemide (Lasix) 40 mg PO BID [facility] Last Admin: 01/22/18 19:25 Dose: 40 mg Hydralazine HCl (Apresoline) 25 mg PO Q8 [facility] Last Admin: 01/22/18 23:04 Dose: Not Given Insulin Human Regular (Novolin R) 0 unit SC ACHS [facility] PRN Reason: Protocol Last Admin: 01/22/18 23:05 Dose: Not Given Levothyroxine Sodium (Synthroid) 75 mcg PO 0630 [facility] Last Admin: 01/22/18 06:04 Dose: 75 mcg Linezolid (Zyvox) 600 mg PO BID [facility] Metformin HCl (Glucophage Xr) 500 mg PO BID [facility] Last Admin: 01/22/18 19:26 Dose: Not Given Montelukast Sodium (Singulair) 10 mg PO HS [facility] Last Admin: 01/22/18 21:07 Dose: 10 mg Multivitamins (Hexavitamin) 1 tab PO DAILY [facility] Last Admin: 01/22/18 09:24 Dose: 1 tab Mupirocin (Bactroban Ointment) 3 gm TOP BID [facility] Last Admin: 01/22/18 19:26 Dose: 1 applic Oxycodone HCl (Oxycodone Immediate Release Tab) 15 mg PO Q4H PRN PRN Reason: Pain, moderate (4-7) Last Admin: 01/17/18 15:06 Dose: 15 mg Oxycodone HCl (Oxycontin Extended Release Tab) 80 mg PO Q6H [facility] Last Admin: 01/22/18 21:07 Dose: 80 mg Oxycodone/Acetaminophen (Percocet 5/325 Mg Tab) 2 tab PO Q4H PRN PRN Reason: pain Stop: 01/23/18 23:25 Last Admin: 01/22/18 19:50 Dose: 2 tab Pantoprazole Sodium (Protonix Ec Tab) 40 mg PO DAILY [facility] Last Admin: 01/22/18 09:24 Dose: 40 mg Potassium Chloride (K-Dur 20 Meq Er Tab) 20 meq PO DAILY [facility] Last Admin: 01/22/18 09:24 Dose: 20 meq Fluticasone/Salmeterol (Advair Diskus 250/50) 1 puff IH RQ12 [facility] Last Admin: 01/22/18 10:22 Dose: Not Given Sitagliptin Phosphate (Januvia) 50 mg PO DAILY [facility] Last Admin: 01/22/18 09:24 Dose: 50 mg Zolpidem Tartrate (Ambien) 5 mg PO HS PRN PRN Reason: Insomnia - Labs Labs: 01/22/18 07:58 01/22/18 07:58 PT 14.4 SECONDS (9.7-12.2) H 01/22/18 02:00 INR 1.3 01/22/18 02:00 APTT 33 SECONDS (21-34) 01/22/18 02:00 Assessment and Plan (1) Cellulitis Status: Acute (2) Infected ulcer of skin Status: Acute (3) Morbid obesity Status: Acute (4) Obstructive sleep apnea Status: Acute (5) PVD (peripheral vascular disease) Status: Acute (6) Type 2 diabetes mellitus Status: Acute
[2018-01-23] MEDS: Oxycodone/Acetaminophen 5/325 mg Tab PO PRN ×4 (00:22→17:46)
[2018-01-23] MEDS: oxyCODONE 80 mg ER Tab (oxyCONTIN) PO SCH ×4 (02:58→20:18)
[2018-01-23] MEDS: Levothyroxine 75 MCG TAB PO SCH (06:13)
[2018-01-23] MEDS: (Novolin R) Insulin Human Regular 100 units/ml vial SC SCH ×4 (07:58→22:07)
[2018-01-23] MEDS: Potassium Chloride 20 mEq ER Tab PO SCH (09:15)
[2018-01-23] MEDS: Enoxaparin 40 mg Syringe SC SCH (09:15)
[2018-01-23] MEDS: Multiple Vitamins Tab PO SCH (09:15)
[2018-01-23] MEDS: Pantoprazole 40 mg EC Tab PO SCH (09:16)
[2018-01-23] MEDS: Fluticasone-Salmeterol 250-50mcg Diskus IH SCH ×2 (10:00→20:28)
[2018-01-23 11:59] LABS: HEMOGLOBIN 11.2 g/dL (12.0-18.0); MEAN CELL VOLUME 78.8 fL (80.0-94.0); MEAN CORPUSCULAR HEMOGLOBIN 25.7 pg (27.0-31.0); MEAN CORPUSCULAR HGB CONC 32.6 g/dL (33.0-37.0); MEAN PLATELET VOLUME 9.8 fL (7.2-11.7); RBC 4.36 Mil/uL (4.40-5.90); RED CELL DISTRIBUTION WIDTH 14.2 % (11.5-14.5)
--- NOTE | 2018-01-23 13:46 | CP.PCM.PN ---
Subjective - Date & Time of Evaluation Date of Evaluation: 01/23/18 Time of Evaluation: 12:00 - Subjective Subjective: Podiatry Progress note for Dr. Laguna 57 year old male was seen and evaluated at bedside with attending Dr. Laguna. Patient is s/p wound debridement of left leg by Dr. Laguna. Patient reports that he is feeling better. His pain has improved. He denies overnight acute events. Denies n/v/sob/cp/chill/d or calf tenderness. Objective - Vital Signs/Intake and Output Vital Signs (last 24 hours): Temp Pulse Resp BP Pulse Ox 97.7 F 76 18 121/78 97 01/23/18 12:55 01/23/18 12:55 01/23/18 12:55 01/23/18 12:55 01/23/18 12:55 Intake and Output: 01/23/18 01/23/18 06:59 18:59 Intake Total 240 Output Total 400 Balance -160 - Medications Medications: Current Medications Acetaminophen (Tylenol 325mg Tab) 650 mg PO Q6 PRN PRN Reason: Headache Ciprofloxacin (Cipro) 500 mg PO BID [facility] Last Admin: 01/23/18 09:14 Dose: 500 mg Docusate Sodium (Colace) 100 mg PO DAILY [facility] Last Admin: 01/23/18 09:14 Dose: 100 mg Enoxaparin Sodium (Lovenox) 40 mg SC DAILY [facility] Last Admin: 01/23/18 09:15 Dose: 40 mg Furosemide (Lasix) 40 mg PO BID [facility] Last Admin: 01/23/18 09:15 Dose: 40 mg Hydralazine HCl (Apresoline) 25 mg PO Q8 [facility] Last Admin: 01/23/18 06:13 Dose: 25 mg Insulin Human Regular (Novolin R) 0 unit SC ACHS [facility] PRN Reason: Protocol Last Admin: 01/23/18 11:59 Dose: Not Given Levothyroxine Sodium (Synthroid) 75 mcg PO 0630 [facility] Last Admin: 01/23/18 06:13 Dose: 75 mcg Linezolid (Zyvox) 600 mg PO BID [facility] Last Admin: 01/23/18 09:16 Dose: 600 mg Metformin HCl (Glucophage Xr) 500 mg PO BID [facility] Last Admin: 01/23/18 09:14 Dose: 500 mg Montelukast Sodium (Singulair) 10 mg PO HS [facility] Last Admin: 01/22/18 21:07 Dose: 10 mg Multivitamins (Hexavitamin) 1 tab PO DAILY [facility] Last Admin: 01/23/18 09:15 Dose: 1 tab Mupirocin (Bactroban Ointment) 3 gm TOP BID [facility] Last Admin: 01/23/18 09:14 Dose: Not Given Oxycodone HCl (Oxycodone Immediate Release Tab) 15 mg PO Q4H PRN PRN Reason: Pain, moderate (4-7) Last Admin: 01/17/18 15:06 Dose: 15 mg Oxycodone HCl (Oxycontin Extended Release Tab) 80 mg PO Q6H [facility] Last Admin: 01/23/18 08:26 Dose: 80 mg Oxycodone/Acetaminophen (Percocet 5/325 Mg Tab) 2 tab PO Q4H PRN PRN Reason: pain Stop: 01/23/18 23:25 Last Admin: 01/23/18 10:23 Dose: 2 tab Pantoprazole Sodium (Protonix Ec Tab) 40 mg PO DAILY [facility] Last Admin: 01/23/18 09:16 Dose: 40 mg Potassium Chloride (K-Dur 20 Meq Er Tab) 20 meq PO DAILY [facility] Last Admin: 01/23/18 09:15 Dose: 20 meq Fluticasone/Salmeterol (Advair Diskus 250/50) 1 puff IH RQ12 [facility] Last Admin: 01/23/18 10:00 Dose: 1 puff Sitagliptin Phosphate (Januvia) 50 mg PO DAILY [facility] Last Admin: 01/23/18 09:15 Dose: 50 mg Zolpidem Tartrate (Ambien) 5 mg PO HS PRN PRN Reason: Insomnia - Labs Labs: 01/23/18 11:37 01/22/18 07:58 PT 14.4 SECONDS (9.7-12.2) H 01/22/18 02:00 INR 1.3 01/22/18 02:00 APTT 33 SECONDS (21-34) 01/22/18 02:00 - Constitutional Appears: Well, Non-toxic, No Acute Distress - Extremities Exam Additional comments: LLE dressing is c/d/i without strikethrough noted Patient able to wiggle toes No pain or tenderness with calf compression - Neurological Exam Neurological Exam: Alert, Awake, Oriented x3 - Psychiatric Exam Psychiatric exam: Normal Affect, Normal Mood Assessment and Plan - Assessment and Plan (Free Text) Assessment: 57 y.o male 1 day s/p of left leg wound debridement Plan: -Patient was examined and evaluated with attending Dr. Laguna -Labs, charts, vitals reviewed- afebrile, absent leukocytosis (WBC 7.0 on ) -left tib-fib xray-IMPRESSION:Diffuse soft tissue swelling/infiltration consistent with a cellulitis. The no obvious cortical destructive changes. There are displaced fracture nor dislocation Total knee arthroplasty intact without evidence of hardware failure -wound culture-Pseudomonas aeruginosa, Enterococcus faecalis -c/w IV abx per ID -Patient to go to the OR Thursday for graft placement -LE dressing to remain c/d/i. Do not get wet -Will change dressing Thursday -Podiatry will continue to follow while in house
[2018-01-23 14:36] LABS: INR 1.2
--- NOTE | 2018-01-23 23:25 | CP.PCM.PN ---
Subjective - Date & Time of Evaluation Date of Evaluation: 01/23/18 Time of Evaluation: 16:00 Objective - Vital Signs/Intake and Output Vital Signs (last 24 hours): Temp Pulse Resp BP Pulse Ox 97.7 F 76 18 111/71 97 01/23/18 12:55 01/23/18 12:55 01/23/18 12:55 01/23/18 17:46 01/23/18 12:55 - Medications Medications: Current Medications Acetaminophen (Tylenol 325mg Tab) 650 mg PO Q6 PRN PRN Reason: Headache Ciprofloxacin (Cipro) 500 mg PO BID [facility] Last Admin: 01/23/18 17:45 Dose: 500 mg Docusate Sodium (Colace) 100 mg PO DAILY [facility] Last Admin: 01/23/18 09:14 Dose: 100 mg Enoxaparin Sodium (Lovenox) 40 mg SC DAILY [facility] Last Admin: 01/23/18 09:15 Dose: 40 mg Furosemide (Lasix) 40 mg PO BID [facility] Last Admin: 01/23/18 17:46 Dose: 40 mg Hydralazine HCl (Apresoline) 25 mg PO Q8 [facility] Last Admin: 01/23/18 21:24 Dose: 25 mg Insulin Human Regular (Novolin R) 0 unit SC ACHS [facility] PRN Reason: Protocol Last Admin: 01/23/18 22:07 Dose: Not Given Levothyroxine Sodium (Synthroid) 75 mcg PO 0630 [facility] Last Admin: 01/23/18 06:13 Dose: 75 mcg Linezolid (Zyvox) 600 mg PO BID [facility] Last Admin: 01/23/18 17:45 Dose: 600 mg Metformin HCl (Glucophage Xr) 500 mg PO BID [facility] Last Admin: 01/23/18 17:45 Dose: 500 mg Montelukast Sodium (Singulair) 10 mg PO HS [facility] Last Admin: 01/23/18 21:24 Dose: 10 mg Multivitamins (Hexavitamin) 1 tab PO DAILY [facility] Last Admin: 01/23/18 09:15 Dose: 1 tab Mupirocin (Bactroban Ointment) 3 gm TOP BID [facility] Last Admin: 01/23/18 18:18 Dose: Not Given Oxycodone HCl (Oxycodone Immediate Release Tab) 15 mg PO Q4H PRN PRN Reason: Pain, moderate (4-7) Last Admin: 01/17/18 15:06 Dose: 15 mg Oxycodone HCl (Oxycontin Extended Release Tab) 80 mg PO Q6H [facility] Last Admin: 01/23/18 20:18 Dose: 80 mg Pantoprazole Sodium (Protonix Ec Tab) 40 mg PO DAILY [facility] Last Admin: 01/23/18 09:16 Dose: 40 mg Potassium Chloride (K-Dur 20 Meq Er Tab) 20 meq PO DAILY [facility] Last Admin: 01/23/18 09:15 Dose: 20 meq Fluticasone/Salmeterol (Advair Diskus 250/50) 1 puff IH RQ12 [facility] Last Admin: 01/23/18 20:28 Dose: 1 puff Sitagliptin Phosphate (Januvia) 50 mg PO DAILY [facility] Last Admin: 01/23/18 09:15 Dose: 50 mg Zolpidem Tartrate (Ambien) 5 mg PO HS PRN PRN Reason: Insomnia - Labs Labs: 01/23/18 11:37 01/22/18 07:58 PT 13.0 SECONDS (9.7-12.2) H 01/23/18 14:18 INR 1.2 01/23/18 14:18 APTT 33 SECONDS (21-34) 01/22/18 02:00 Assessment and Plan (1) Cellulitis Status: Acute (2) Infected ulcer of skin Status: Acute (3) Morbid obesity Status: Acute (4) Obstructive sleep apnea Status: Acute (5) PVD (peripheral vascular disease) Status: Acute (6) Type 2 diabetes mellitus Status: Acute
[2018-01-24] MEDS: Oxycodone/Acetaminophen 5/325 mg Tab PO PRN ×5 (01:06→21:36)
[2018-01-24] MEDS: oxyCODONE 80 mg ER Tab (oxyCONTIN) PO SCH ×4 (03:07→20:08)
[2018-01-24] MEDS: Levothyroxine 75 MCG TAB PO SCH (06:35)
[2018-01-24] MEDS: (Novolin R) Insulin Human Regular 100 units/ml vial SC SCH ×4 (07:54→22:30)
[2018-01-24] MEDS: Fluticasone-Salmeterol 250-50mcg Diskus IH SCH (08:10)
[2018-01-24] MEDS: Multiple Vitamins Tab PO SCH (09:46)
[2018-01-24] MEDS: Potassium Chloride 20 mEq ER Tab PO SCH (09:46)
[2018-01-24] MEDS: Enoxaparin 40 mg Syringe SC SCH (09:47)
[2018-01-24] MEDS: Pantoprazole 40 mg EC Tab PO SCH (09:48)
--- NOTE | 2018-01-24 12:54 | CP.PCM.PN ---
Subjective - Date & Time of Evaluation Date of Evaluation: 01/24/18 Time of Evaluation: 10:00 - Subjective Subjective: Podiatry Progress note for Dr. Laguna 57 year old male was seen and evaluated at bedside with attending Dr. Laguna. Patient is s/p wound debridement of left leg by Dr. Laguna. Patient reports that he is feeling better. His pain has improved. Dressing is c/d/i without strikethrough. He denies overnight acute events. Denies n/v/sob/cp/chill/d or calf tenderness. Objective - Vital Signs/Intake and Output Vital Signs (last 24 hours): Temp Pulse Resp BP Pulse Ox 97.1 F L 80 20 111/60 95 01/24/18 09:29 01/24/18 09:29 01/24/18 09:29 01/24/18 09:47 01/24/18 09:29 Intake and Output: 01/24/18 01/24/18 06:59 18:59 Intake Total 360 Output Total 2050 Balance -1690 - Medications Medications: Current Medications Acetaminophen (Tylenol 325mg Tab) 650 mg PO Q6 PRN PRN Reason: Headache Ciprofloxacin (Cipro) 500 mg PO BID [facility] Last Admin: 01/24/18 09:46 Dose: 500 mg Docusate Sodium (Colace) 100 mg PO DAILY [facility] Last Admin: 01/24/18 09:46 Dose: 100 mg Enoxaparin Sodium (Lovenox) 40 mg SC DAILY [facility] Last Admin: 01/24/18 09:47 Dose: 40 mg Furosemide (Lasix) 40 mg PO BID [facility] Last Admin: 01/24/18 09:47 Dose: 40 mg Hydralazine HCl (Apresoline) 25 mg PO Q8 [facility] Last Admin: 01/24/18 06:35 Dose: 25 mg Insulin Human Regular (Novolin R) 0 unit SC ACHS [facility] PRN Reason: Protocol Last Admin: 01/24/18 12:24 Dose: Not Given Levothyroxine Sodium (Synthroid) 75 mcg PO 0630 [facility] Last Admin: 01/24/18 06:35 Dose: 75 mcg Linezolid (Zyvox) 600 mg PO BID [facility] Last Admin: 01/24/18 09:48 Dose: 600 mg Metformin HCl (Glucophage Xr) 500 mg PO BID [facility] Last Admin: 01/24/18 09:46 Dose: 500 mg Montelukast Sodium (Singulair) 10 mg PO HS [facility] Last Admin: 01/23/18 21:24 Dose: 10 mg Multivitamins (Hexavitamin) 1 tab PO DAILY [facility] Last Admin: 01/24/18 09:46 Dose: 1 tab Mupirocin (Bactroban Ointment) 3 gm TOP BID [facility] Last Admin: 01/24/18 09:46 Dose: Not Given Oxycodone HCl (Oxycodone Immediate Release Tab) 15 mg PO Q4H PRN PRN Reason: Pain, moderate (4-7) Last Admin: 01/17/18 15:06 Dose: 15 mg Oxycodone HCl (Oxycontin Extended Release Tab) 80 mg PO Q6H [facility] Last Admin: 01/24/18 08:36 Dose: 80 mg Oxycodone/Acetaminophen (Percocet 5/325 Mg Tab) 2 tab PO Q4H PRN PRN Reason: Pain, moderate (4-7) Stop: 01/27/18 00:51 Last Admin: 01/24/18 11:01 Dose: 2 tab Pantoprazole Sodium (Protonix Ec Tab) 40 mg PO DAILY [facility] Last Admin: 01/24/18 09:48 Dose: 40 mg Potassium Chloride (K-Dur 20 Meq Er Tab) 20 meq PO DAILY [facility] Last Admin: 01/24/18 09:46 Dose: 20 meq Fluticasone/Salmeterol (Advair Diskus 250/50) 1 puff IH RQ12 [facility] Last Admin: 01/24/18 08:10 Dose: 1 puff Sitagliptin Phosphate (Januvia) 50 mg PO DAILY [facility] Last Admin: 01/24/18 09:46 Dose: 50 mg Zolpidem Tartrate (Ambien) 5 mg PO HS PRN PRN Reason: Insomnia - Labs Labs: 01/23/18 11:37 01/22/18 07:58 PT 13.0 SECONDS (9.7-12.2) H 01/23/18 14:18 INR 1.2 01/23/18 14:18 APTT 33 SECONDS (21-34) 01/22/18 02:00 - Constitutional Appears: Well, Non-toxic, No Acute Distress - Extremities Exam Additional comments: LLE dressing is c/d/i without strikethrough noted Patient able to wiggle toes No pain or tenderness with calf compression - Neurological Exam Neurological Exam: Alert, Awake, Oriented x3 - Psychiatric Exam Psychiatric exam: Normal Affect, Normal Mood Assessment and Plan - Assessment and Plan (Free Text) Assessment: 57 y.o male 2 days s/p of left leg wound debridement Plan: -Patient was examined and evaluated with attending Dr. Laguna -Labs, charts, vitals reviewed- afebrile, absent leukocytosis (WBC 7.0 on ) -left tib-fib xray-IMPRESSION:Diffuse soft tissue swelling/infiltration consistent with a cellulitis. The no obvious cortical destructive changes. There are displaced fracture nor dislocation Total knee arthroplasty intact without evidence of hardware failure -wound culture-Pseudomonas aeruginosa, Enterococcus faecalis -c/w IV abx per ID -Patient to go to the OR Thursday for graft placement -LE dressing to remain c/d/i. Do not get wet -Will change dressing Thursday -Podiatry will continue to follow while in house
--- NOTE | 2018-01-24 14:28 | CP.PCM.PN ---
Subjective - Date & Time of Evaluation Date of Evaluation: 01/24/18 Time of Evaluation: 08:00 - Subjective Subjective: slow progress for OR Thursday Objective - Vital Signs/Intake and Output Vital Signs (last 24 hours): Temp Pulse Resp BP Pulse Ox 97.1 F L 80 20 111/60 95 01/24/18 09:29 01/24/18 09:29 01/24/18 09:29 01/24/18 09:47 01/24/18 09:29 Intake and Output: 01/24/18 01/24/18 06:59 18:59 Intake Total 360 Output Total 2049 Balance -1690 - Medications Medications: Current Medications Acetaminophen (Tylenol 325mg Tab) 650 mg PO Q6 PRN PRN Reason: Headache Ciprofloxacin (Cipro) 500 mg PO BID [facility] Last Admin: 01/24/18 09:46 Dose: 500 mg Docusate Sodium (Colace) 100 mg PO DAILY [facility] Last Admin: 01/24/18 09:46 Dose: 100 mg Enoxaparin Sodium (Lovenox) 40 mg SC DAILY [facility] Last Admin: 01/24/18 09:47 Dose: 40 mg Furosemide (Lasix) 40 mg PO BID [facility] Last Admin: 01/24/18 09:47 Dose: 40 mg Hydralazine HCl (Apresoline) 25 mg PO Q8 [facility] Last Admin: 01/24/18 06:35 Dose: 25 mg Insulin Human Regular (Novolin R) 0 unit SC [facility] PRN Reason: Protocol Last Admin: 01/24/18 12:24 Dose: Not Given Levothyroxine Sodium (Synthroid) 75 mcg PO 0630 [facility] Last Admin: 01/24/18 06:35 Dose: 75 mcg Linezolid (Zyvox) 600 mg PO BID [facility] Last Admin: 01/24/18 09:48 Dose: 600 mg Metformin HCl (Glucophage Xr) 500 mg PO BID [facility] Last Admin: 01/24/18 09:46 Dose: 500 mg Montelukast Sodium (Singulair) 10 mg PO HS [facility] Last Admin: 01/23/18 21:24 Dose: 10 mg Multivitamins (Hexavitamin) 1 tab PO DAILY [facility] Last Admin: 01/24/18 09:46 Dose: 1 tab Mupirocin (Bactroban Ointment) 3 gm TOP BID [facility] Last Admin: 01/24/18 09:46 Dose: Not Given Oxycodone HCl (Oxycodone Immediate Release Tab) 15 mg PO Q4H PRN PRN Reason: Pain, moderate (4-7) Last Admin: 01/17/18 15:06 Dose: 15 mg Oxycodone HCl (Oxycontin Extended Release Tab) 80 mg PO Q6H [facility] Last Admin: 01/24/18 08:36 Dose: 80 mg Oxycodone/Acetaminophen (Percocet 5/325 Mg Tab) 2 tab PO Q4H PRN PRN Reason: Pain, moderate (4-7) Stop: 01/27/18 00:51 Last Admin: 01/24/18 11:01 Dose: 2 tab Pantoprazole Sodium (Protonix Ec Tab) 40 mg PO DAILY [facility] Last Admin: 01/24/18 09:48 Dose: 40 mg Potassium Chloride (K-Dur 20 Meq Er Tab) 20 meq PO DAILY [facility] Last Admin: 01/24/18 09:46 Dose: 20 meq Fluticasone/Salmeterol (Advair Diskus 250/50) 1 puff IH RQ12 [facility] Last Admin: 01/24/18 08:10 Dose: 1 puff Sitagliptin Phosphate (Januvia) 50 mg PO DAILY [facility] Last Admin: 01/24/18 09:46 Dose: 50 mg Zolpidem Tartrate (Ambien) 5 mg PO HS PRN PRN Reason: Insomnia - Labs Labs: 01/23/18 11:37 01/22/18 07:58 PT 13.0 SECONDS (9.7-12.2) H 01/23/18 14:18 INR 1.2 01/23/18 14:18 APTT 33 SECONDS (21-34) 01/22/18 02:00 - Constitutional Appears: Non-toxic, Chronically Ill - Head Exam Head Exam: ATRAUMATIC, NORMAL INSPECTION, NORMOCEPHALIC - Eye Exam Eye Exam: Conjunctival injection, EOMI, Normal appearance, Nystagmus, Periorbital swelling, Periorbital tenderness, PERRL, Scleral icterus - ENT Exam ENT Exam: Mucous Membranes Dry, Mucous Membranes Moist, Normal Exam, Normal External Ear Exam, Normal Oropharynx, TM's Normal Bilaterally - Neck Exam Neck Exam: Full ROM, Lymphadenopathy, Meningismus, Normal Inspection, Tenderness , Thyromegaly - Respiratory Exam Respiratory Exam: Decreased Breath Sounds, Rhonchi - Cardiovascular Exam Cardiovascular Exam: REGULAR RHYTHM, +S1, +S2 - GI/Abdominal Exam GI & Abdominal Exam: Soft. absent: Tenderness, Organomegaly - Rectal Exam Rectal Exam: Deferred - Extremities Exam Extremities Exam: Pedal Edema, Tenderness - Back Exam Back Exam: absent: CVA tenderness (L), CVA tenderness (R) - Neurological Exam Neurological Exam: Alert, Awake, Oriented x3 - Psychiatric Exam Psychiatric exam: Normal Mood - Skin Skin Exam: Dry Assessment and Plan (1) Cellulitis Status: Acute (2) Infected ulcer of skin Status: Acute (3) Cellulitis Status: Acute (4) Leg ulcer Status: Acute (5) Morbid obesity Status: Acute (6) Obstructive sleep apnea Status: Acute (7) PVD (peripheral vascular disease) Status: Acute - Assessment and Plan (Free Text) Assessment: iv rx renewed
[2018-01-24] MEDS ORDERED: oxyCODONE 10 mg Immediate Release Tab PO PRN (17:06)
--- NOTE | 2018-01-24 23:30 | CP.PCM.PN ---
Subjective - Date & Time of Evaluation Date of Evaluation: 01/24/18 Time of Evaluation: 17:00 - Subjective Subjective: Pt seen and evaluated at bedside, pt is for Or tommorow, medically optimized, documentation has been done, skin has left leg ulcer, for OR tommorow Objective - Vital Signs/Intake and Output Vital Signs (last 24 hours): Temp Pulse Resp BP Pulse Ox 98.2 F 65 20 122/68 96 01/24/18 15:34 01/24/18 21:40 01/24/18 21:40 01/24/18 21:40 01/24/18 21:40 Intake and Output: 01/24/18 01/25/18 18:59 06:59 Intake Total 580 Output Total 1000 Balance -420 - Medications Medications: Current Medications Acetaminophen (Tylenol 325mg Tab) 650 mg PO Q6 PRN PRN Reason: Headache Ciprofloxacin (Cipro) 500 mg PO BID [facility] Last Admin: 01/24/18 19:22 Dose: 500 mg Docusate Sodium (Colace) 100 mg PO DAILY [facility] Last Admin: 01/24/18 09:46 Dose: 100 mg Enoxaparin Sodium (Lovenox) 40 mg SC DAILY [facility] Last Admin: 01/24/18 09:47 Dose: 40 mg Furosemide (Lasix) 40 mg PO BID [facility] Last Admin: 01/24/18 19:23 Dose: 40 mg Hydralazine HCl (Apresoline) 25 mg PO Q8 [facility] Last Admin: 01/24/18 21:36 Dose: 25 mg Insulin Human Regular (Novolin R) 0 unit SC ACHS [facility] PRN Reason: Protocol Last Admin: 01/24/18 22:30 Dose: Not Given Levothyroxine Sodium (Synthroid) 75 mcg PO 0630 [facility] Last Admin: 01/24/18 06:35 Dose: 75 mcg Linezolid (Zyvox) 600 mg PO BID [facility] Last Admin: 01/24/18 19:22 Dose: 600 mg Metformin HCl (Glucophage Xr) 500 mg PO BID [facility] Last Admin: 01/24/18 19:22 Dose: 500 mg Montelukast Sodium (Singulair) 10 mg PO HS [facility] Last Admin: 01/24/18 21:36 Dose: 10 mg Multivitamins (Hexavitamin) 1 tab PO DAILY [facility] Last Admin: 01/24/18 09:46 Dose: 1 tab Mupirocin (Bactroban Ointment) 3 gm TOP BID [facility] Last Admin: 01/24/18 19:27 Dose: Not Given Oxycodone HCl (Oxycontin Extended Release Tab) 80 mg PO Q6H [facility] Last Admin: 01/24/18 20:08 Dose: 80 mg Oxycodone HCl (Oxycodone Immediate Release Tab) 10 mg PO Q4H PRN PRN Reason: Pain, moderate (4-7) Oxycodone/Acetaminophen (Percocet 5/325 Mg Tab) 2 tab PO Q4H PRN PRN Reason: Pain, moderate (4-7) Stop: 01/27/18 00:51 Last Admin: 01/24/18 21:36 Dose: 2 tab Pantoprazole Sodium (Protonix Ec Tab) 40 mg PO DAILY [facility] Last Admin: 01/24/18 09:48 Dose: 40 mg Potassium Chloride (K-Dur 20 Meq Er Tab) 20 meq PO DAILY [facility] Last Admin: 01/24/18 09:46 Dose: 20 meq Fluticasone/Salmeterol (Advair Diskus 250/50) 1 puff IH RQ12 [facility] Last Admin: 01/24/18 08:10 Dose: 1 puff Sitagliptin Phosphate (Januvia) 50 mg PO DAILY [facility] Last Admin: 01/24/18 09:46 Dose: 50 mg Zolpidem Tartrate (Ambien) 5 mg PO HS PRN PRN Reason: Insomnia - Labs Labs: 01/23/18 11:37 01/22/18 07:58 PT 13.0 SECONDS (9.7-12.2) H 01/23/18 14:18 INR 1.2 01/23/18 14:18 APTT 33 SECONDS (21-34) 01/22/18 02:00 - Constitutional Appears: No Acute Distress - Head Exam Head Exam: ATRAUMATIC, NORMAL INSPECTION, NORMOCEPHALIC - Eye Exam Eye Exam: EOMI, Normal appearance, PERRL Pupil Exam: NORMAL ACCOMODATION, PERRL - Respiratory Exam Respiratory Exam: Clear to Ausculation Bilateral, NORMAL BREATHING PATTERN - Cardiovascular Exam Cardiovascular Exam: REGULAR RHYTHM, +S1, +S2. absent: Murmur - GI/Abdominal Exam GI & Abdominal Exam: Soft, Normal Bowel Sounds. absent: Tenderness - Rectal Exam Rectal Exam: Deferred Assessment and Plan (1) Cellulitis Status: Acute (2) Infected ulcer of skin Status: Acute (3) Morbid obesity Status: Acute (4) Obstructive sleep apnea Status: Acute (5) PVD (peripheral vascular disease) Status: Acute (6) Type 2 diabetes mellitus Status: Acute
[2018-01-25] MEDS: oxyCODONE 80 mg ER Tab (oxyCONTIN) PO SCH ×4 (02:26→20:34)
[2018-01-25] MEDS: Oxycodone/Acetaminophen 5/325 mg Tab PO PRN ×5 (03:50→22:38)
[2018-01-25] MEDS: Levothyroxine 75 MCG TAB PO SCH (06:14)
[2018-01-25] MEDS: (Novolin R) Insulin Human Regular 100 units/ml vial SC SCH ×4 (07:36→22:41)
[2018-01-25] MEDS: Fluticasone-Salmeterol 250-50mcg Diskus IH SCH ×2 (07:55→20:10)
--- NOTE | 2018-01-25 09:08 | OP ---
PROCEDURE DATE: 01/22/2018 SURGEON: Casey Laguna DPM G[employer] SYSTEMS WORKER: Taniya Sun DPM, PGY2. ANESTHESIOLOGIST: Dr. Herbert. ANESTHESIA: IV sedation with local. PREOPERATIVE DIAGNOSIS: Left leg venous stasis ulceration. POSTOPERATIVE DIAGNOSIS: Left leg venous stasis ulceration. PROCEDURE: Left leg wound debridement with Versajet. DESCRIPTION OF PROCEDURE: The patient is a 57-year-old male with the above mentioned diagnosis. The patient has exhausted all conservative treatment at this time and now requires surgical intervention. The patient signed the consent after careful explanation of risks, benefits, complications, and alternatives for the surgical procedure. No guarantees were given or implied. NPO status was confirmed prior to taking the patient to the operating room. PREPARATION: The patient was brought into the operating room and kept on a stretcher in a supine position. A time-out was performed for identification of the correct patient and procedure. After induction of IV sedation, the patient received a total of 30 mL of 1:1 mixture of 1% lidocaine plain and 0.25% Marcaine plain in a local block fashion to the patient's left leg. Once local anesthesia was achieved, the lower extremity was then prepped and draped in the usual standard manner and the procedure began. No tourniquet was used during the procedure. PROCEDURE: Attention was directed to the left leg where multiple venous stasis ulcers were noted circumferentially around the patient's left leg. The ulcers were composed of ganglion fibrotic tissue with no visible bone exposure. The Versajet mechanical debridement was used on settings 3, 4, and 5 and was used to remove all the fibrotic and nonviable tissue from the wound base in the wound margin. The surgical site was then irrigated with copious amount of normal sterile saline. The surgical site was then dressed with nonadherent dressings, 4x4s, ABD, Kerlix, and lastly Coban. POSTOPERATIVE CONDITION: The patient tolerated the anesthesia and procedure well and was escorted to recovery room with vital signs stable and neurovascular structures intact to the patient's left lower extremity. The patient will be followed by Dr. Laguna as an inpatient. Taniya Sun DPM Casey JUAN CARLOS Laguna [facility] # [id number]
--- NOTE | 2018-01-25 09:14 | CP.PCM.PN ---
Subjective - Date & Time of Evaluation Date of Evaluation: 01/25/18 Time of Evaluation: 09:14 - Subjective Subjective: Podiatry Progress note for Dr. Laguna 57 year old male was seen and evaluated at bedside with attending Dr. Laguna 3 days s/p left leg wound debridement. Patient reports that he is feeling better. His pain has improved. He denies overnight acute events. Patient is to OR tomorrow for application of graft. Denies any n/v/f/c/sob/cp. Objective - Vital Signs/Intake and Output Vital Signs (last 24 hours): Temp Pulse Resp BP Pulse Ox 98.0 F 73 20 115/72 97 01/25/18 08:49 01/25/18 08:49 01/25/18 08:49 01/25/18 08:49 01/25/18 08:49 Intake and Output: 01/25/18 01/25/18 06:59 18:59 Intake Total 360 Output Total 1025 Balance -665 - Medications Medications: Current Medications Acetaminophen (Tylenol 325mg Tab) 650 mg PO Q6 PRN PRN Reason: Headache Ciprofloxacin (Cipro) 500 mg PO BID [facility] Last Admin: 01/24/18 19:22 Dose: 500 mg Docusate Sodium (Colace) 100 mg PO DAILY [facility] Last Admin: 01/24/18 09:46 Dose: 100 mg Enoxaparin Sodium (Lovenox) 40 mg SC DAILY [facility] Last Admin: 01/24/18 09:47 Dose: 40 mg Furosemide (Lasix) 40 mg PO BID [facility] Last Admin: 01/24/18 19:23 Dose: 40 mg Hydralazine HCl (Apresoline) 25 mg PO Q8 [facility] Last Admin: 01/25/18 06:14 Dose: 25 mg Insulin Human Regular (Novolin R) 0 unit SC ACHS [facility] PRN Reason: Protocol Last Admin: 01/25/18 07:36 Dose: Not Given Levothyroxine Sodium (Synthroid) 75 mcg PO 0630 [facility] Last Admin: 01/25/18 06:14 Dose: 75 mcg Linezolid (Zyvox) 600 mg PO BID [facility] Last Admin: 01/24/18 19:22 Dose: 600 mg Metformin HCl (Glucophage Xr) 500 mg PO BID [facility] Last Admin: 01/24/18 19:22 Dose: 500 mg Montelukast Sodium (Singulair) 10 mg PO HS [facility] Last Admin: 01/24/18 21:36 Dose: 10 mg Multivitamins (Hexavitamin) 1 tab PO DAILY [facility] Last Admin: 01/24/18 09:46 Dose: 1 tab Mupirocin (Bactroban Ointment) 3 gm TOP BID [facility] Last Admin: 01/24/18 19:27 Dose: Not Given Oxycodone HCl (Oxycontin Extended Release Tab) 80 mg PO Q6H [facility] Last Admin: 01/25/18 02:26 Dose: 80 mg Oxycodone HCl (Oxycodone Immediate Release Tab) 10 mg PO Q4H PRN PRN Reason: Pain, moderate (4-7) Oxycodone/Acetaminophen (Percocet 5/325 Mg Tab) 2 tab PO Q4H PRN PRN Reason: Pain, moderate (4-7) Stop: 01/27/18 00:51 Last Admin: 01/25/18 08:24 Dose: 2 tab Pantoprazole Sodium (Protonix Ec Tab) 40 mg PO DAILY [facility] Last Admin: 01/24/18 09:48 Dose: 40 mg Potassium Chloride (K-Dur 20 Meq Er Tab) 20 meq PO DAILY [facility] Last Admin: 01/24/18 09:46 Dose: 20 meq Fluticasone/Salmeterol (Advair Diskus 250/50) 1 puff IH RQ12 [facility] Last Admin: 01/25/18 07:55 Dose: 1 puff Sitagliptin Phosphate (Januvia) 50 mg PO DAILY [facility] Last Admin: 01/24/18 09:46 Dose: 50 mg Zolpidem Tartrate (Ambien) 5 mg PO HS PRN PRN Reason: Insomnia - Labs Labs: 01/23/18 11:37 01/22/18 07:58 PT 13.0 SECONDS (9.7-12.2) H 01/23/18 14:18 INR 1.2 01/23/18 14:18 APTT 33 SECONDS (21-34) 01/22/18 02:00 - Constitutional Appears: Well, Non-toxic, No Acute Distress - Extremities Exam Additional comments: dressing is intact to LLE - Neurological Exam Neurological Exam: Alert, Awake, Oriented x3 - Psychiatric Exam Psychiatric exam: Normal Affect, Normal Mood Assessment and Plan - Assessment and Plan (Free Text) Assessment: 57 year old male 3 days s/p left leg wound debridemenet Plan: -Patient was seen at bedside -Labs, charts, vitals reviewed- afebrile, absent leukocytosis (WBC 7.0 on ) -left tib-fib xray-IMPRESSION:Diffuse soft tissue swelling/infiltration consistent with a cellulitis. The no obvious cortical destructive changes. There are displaced fracture nor dislocation Total knee arthroplasty intact without evidence of hardware failure -wound culture-Pseudomonas aeruginosa, Enterococcus faecalis -c/w IV abx per ID -dressing kept intact until OR tomorrow -Patient to go to the OR Thursday for graft placement -NPO after midnight -Medical optimization in chart -Podiatry will continue to follow while in house
[2018-01-25] MEDS: Multiple Vitamins Tab PO SCH (09:47)
[2018-01-25] MEDS: Enoxaparin 40 mg Syringe SC SCH (09:48)
[2018-01-25] MEDS: Pantoprazole 40 mg EC Tab PO SCH (09:48)
[2018-01-25] MEDS: Potassium Chloride 20 mEq ER Tab PO SCH (09:48)
--- NOTE | 2018-01-25 10:52 | CP.PCM.PN ---
Subjective - Date & Time of Evaluation Date of Evaluation: 01/25/18 Time of Evaluation: 18:00 - Subjective Subjective: Pt seen and examined s/p left leg wound debridement. Patient reports that he is feeling better. His pain has improved. He denies overnight acute events. Denies any n/v/f/c/sob/cp. Objective - Vital Signs/Intake and Output Vital Signs (last 24 hours): Temp Pulse Resp BP Pulse Ox 98.0 F 73 20 134/84 97 01/25/18 08:49 01/25/18 08:49 01/25/18 08:49 01/25/18 09:50 01/25/18 08:49 Intake and Output: 01/25/18 01/25/18 06:59 18:59 Intake Total 360 Output Total 1025 Balance -665 - Medications Medications: Current Medications Acetaminophen (Tylenol 325mg Tab) 650 mg PO Q6 PRN PRN Reason: Headache Ciprofloxacin (Cipro) 500 mg PO BID [facility] Last Admin: 01/25/18 09:47 Dose: 500 mg Docusate Sodium (Colace) 100 mg PO DAILY [facility] Last Admin: 01/24/18 09:46 Dose: 100 mg Enoxaparin Sodium (Lovenox) 40 mg SC DAILY [facility] Last Admin: 01/25/18 09:48 Dose: 40 mg Furosemide (Lasix) 40 mg PO BID [facility] Last Admin: 01/25/18 09:50 Dose: 40 mg Hydralazine HCl (Apresoline) 25 mg PO Q8 [facility] Last Admin: 01/25/18 06:14 Dose: 25 mg Insulin Human Regular (Novolin R) 0 unit SC [facility] PRN Reason: Protocol Last Admin: 01/25/18 07:36 Dose: Not Given Levothyroxine Sodium (Synthroid) 75 mcg PO 0630 [facility] Last Admin: 01/25/18 06:14 Dose: 75 mcg Linezolid (Zyvox) 600 mg PO BID [facility] Last Admin: 01/25/18 09:47 Dose: 600 mg Metformin HCl (Glucophage Xr) 500 mg PO BID [facility] Last Admin: 01/25/18 09:48 Dose: 500 mg Montelukast Sodium (Singulair) 10 mg PO HS [facility] Last Admin: 01/24/18 21:36 Dose: 10 mg Multivitamins (Hexavitamin) 1 tab PO DAILY [facility] Last Admin: 01/25/18 09:47 Dose: 1 tab Mupirocin (Bactroban Ointment) 3 gm TOP BID [facility] Last Admin: 01/24/18 19:27 Dose: Not Given Oxycodone HCl (Oxycontin Extended Release Tab) 80 mg PO Q6H [facility] Last Admin: 01/25/18 09:49 Dose: 80 mg Oxycodone HCl (Oxycodone Immediate Release Tab) 10 mg PO Q4H PRN PRN Reason: Pain, moderate (4-7) Oxycodone/Acetaminophen (Percocet 5/325 Mg Tab) 2 tab PO Q4H PRN PRN Reason: Pain, moderate (4-7) Stop: 01/27/18 00:51 Last Admin: 01/25/18 08:24 Dose: 2 tab Pantoprazole Sodium (Protonix Ec Tab) 40 mg PO DAILY [facility] Last Admin: 01/25/18 09:48 Dose: 40 mg Potassium Chloride (K-Dur 20 Meq Er Tab) 20 meq PO DAILY [facility] Last Admin: 01/25/18 09:48 Dose: 20 meq Fluticasone/Salmeterol (Advair Diskus 250/50) 1 puff IH RQ12 [facility] Last Admin: 01/25/18 07:55 Dose: 1 puff Sitagliptin Phosphate (Januvia) 50 mg PO DAILY [facility] Last Admin: 01/25/18 09:48 Dose: 50 mg Zolpidem Tartrate (Ambien) 5 mg PO HS PRN PRN Reason: Insomnia - Labs Labs: 01/23/18 11:37 01/22/18 07:58 PT 13.0 SECONDS (9.7-12.2) H 01/23/18 14:18 INR 1.2 01/23/18 14:18 APTT 33 SECONDS (21-34) 01/22/18 02:00 Assessment and Plan (1) Cellulitis Status: Acute (2) Infected ulcer of skin Status: Acute (3) Morbid obesity Status: Acute (4) Obstructive sleep apnea Status: Acute (5) PVD (peripheral vascular disease) Status: Acute (6) Type 2 diabetes mellitus Status: Acute
[2018-01-25] MEDS ORDERED: Lidocaine 2% Inj (20ml) ONE (12:36)
--- NOTE | 2018-01-25 13:06 | PCM.SURG1 ---
Surgeon's Initial Post Op Note - Surgeon's Notes Surgeon: Anibal Carroll MD Washer Meat: NONE Type of Anesthesia: Local Pre-Operative Diagnosis: Foot infection Operative Findings: Patent left basilic vein Post-Operative Diagnosis: Foot infection Operation Performed: Single lumen picc placement left basilic vein 48 cm. Tip is in the SVC. Specimen/Specimens Removed: NONE Estimated Blood Loss: EBL {In ML}: 2 Blood Products Given: N/A Drains Used: No Drains Post-Op Condition: Fair Date of Surgery/Procedure: 01/25/18 Time of Surgery/Procedure: 13:00
--- NOTE | 2018-01-25 14:39 | SPECPROC ---
PROCEDURE: Date of procedure: 01/25/2018 Procedure: 1. Placement of a left arm PICC with ultrasound and fluoroscopic guidance, CPT 62617 2. PICC tip confirmation with spot radiograph and is in the superior vena cava Medications: 3cc 1 percent lidocaine Total Fluoro time: 4 seconds Radiation: 1 mGy EBL: 3 cc HISTORY: Infection requiring long-term IV antibiotics TECHNIQUE: Following informed consent and procedure time-out, the patient placed supine on the interventional table and the left arm prepped and draped in the usual sterile fashion. Ultrasound showed a patent and compressible left basilic vein. After the skin was anesthetized with lidocaine, the basilic vein was accessed with micro micropuncture technique using ultrasound guidance. A guidewire was then advanced under fluoroscopic guidance into the superior vena cava. An image documenting ultrasound guidance for vascular access was permanently saved. The length of a single-lumen 4 Turkmen PICC was trimmed to 48 cm and advanced through a peel-away sheath. The PICC was position with tip of PICC confirm a spot radiograph the superior vena cava. The PICC was secured to the patient's skin. The PICC was flushed. A biopatch and sterile dressing was applied. IMPRESSION: Placement of a single-lumen 4 Turkmen PICC left basilic vein trimmed to 48 cm. The tip of the PICC is confirmed with spot radiograph and is in the superior vena cava.
[2018-01-26] MEDS: oxyCODONE 80 mg ER Tab (oxyCONTIN) PO SCH ×4 (02:49→21:33)
[2018-01-26] MEDS: Levothyroxine 75 MCG TAB PO SCH (06:43)
[2018-01-26] MEDS: Oxycodone/Acetaminophen 5/325 mg Tab PO PRN ×4 (06:43→23:26)
--- NOTE | 2018-01-26 07:19 | CP.PCM.PN ---
Subjective - Date & Time of Evaluation Date of Evaluation: 01/26/18 Time of Evaluation: 07:19 - Subjective Subjective: Podiatry Progress note for Dr. Laguna 57 year old male was seen at bedside regarding left lower extremity ulcers. Patient is 4 days s/p left leg wound debridment and he is going to the OR today for left leg graft placement. NPO status confirmed. Patient states that he is nervous this morning and feels nauseas. Objective - Vital Signs/Intake and Output Vital Signs (last 24 hours): Temp Pulse Resp BP Pulse Ox 97.9 F 77 18 130/76 95 01/25/18 15:55 01/26/18 06:39 01/25/18 15:55 01/26/18 06:39 01/25/18 15:55 Intake and Output: 01/26/18 01/26/18 06:59 18:59 Output Total 700 400 Balance -700 -400 - Medications Medications: Current Medications Acetaminophen (Tylenol 325mg Tab) 650 mg PO Q6 PRN PRN Reason: Headache Ciprofloxacin (Cipro) 500 mg PO BID [facility] Last Admin: 01/25/18 18:17 Dose: 500 mg Docusate Sodium (Colace) 100 mg PO DAILY [facility] Last Admin: 01/25/18 09:45 Dose: 100 mg Enoxaparin Sodium (Lovenox) 40 mg SC DAILY [facility] Last Admin: 01/25/18 09:48 Dose: 40 mg Furosemide (Lasix) 40 mg PO BID [facility] Last Admin: 01/25/18 18:17 Dose: 40 mg Hydralazine HCl (Apresoline) 25 mg PO Q8 [facility] Last Admin: 01/26/18 06:43 Dose: 25 mg Insulin Human Regular (Novolin R) 0 unit SC ACHS [facility] PRN Reason: Protocol Last Admin: 01/25/18 22:41 Dose: Not Given Levothyroxine Sodium (Synthroid) 75 mcg PO 0630 [facility] Last Admin: 01/26/18 06:43 Dose: 75 mcg Linezolid (Zyvox) 600 mg PO BID [facility] Last Admin: 01/25/18 18:17 Dose: 600 mg Metformin HCl (Glucophage Xr) 500 mg PO BID [facility] Last Admin: 01/25/18 18:17 Dose: 500 mg Montelukast Sodium (Singulair) 10 mg PO HS [facility] Last Admin: 01/25/18 22:38 Dose: 10 mg Multivitamins (Hexavitamin) 1 tab PO DAILY [facility] Last Admin: 01/25/18 09:47 Dose: 1 tab Mupirocin (Bactroban Ointment) 3 gm TOP BID [facility] Last Admin: 01/25/18 18:21 Dose: Not Given Oxycodone HCl (Oxycontin Extended Release Tab) 80 mg PO Q6H [facility] Last Admin: 01/26/18 02:49 Dose: 80 mg Oxycodone HCl (Oxycodone Immediate Release Tab) 10 mg PO Q4H PRN PRN Reason: Pain, moderate (4-7) Oxycodone/Acetaminophen (Percocet 5/325 Mg Tab) 2 tab PO Q4H PRN PRN Reason: Pain, moderate (4-7) Stop: 01/27/18 00:51 Last Admin: 01/26/18 06:43 Dose: 2 tab Pantoprazole Sodium (Protonix Ec Tab) 40 mg PO DAILY [facility] Last Admin: 01/25/18 09:48 Dose: 40 mg Potassium Chloride (K-Dur 20 Meq Er Tab) 20 meq PO DAILY [facility] Last Admin: 01/25/18 09:48 Dose: 20 meq Fluticasone/Salmeterol (Advair Diskus 250/50) 1 puff IH RQ12 [facility] Last Admin: 01/25/18 20:10 Dose: 1 puff Sitagliptin Phosphate (Januvia) 50 mg PO DAILY [facility] Last Admin: 01/25/18 09:48 Dose: 50 mg Zolpidem Tartrate (Ambien) 5 mg PO HS PRN PRN Reason: Insomnia - Labs Labs: 01/23/18 11:37 01/22/18 07:58 PT 13.0 SECONDS (9.7-12.2) H 01/23/18 14:18 INR 1.2 01/23/18 14:18 APTT 33 SECONDS (21-34) 01/22/18 02:00 - Constitutional Appears: Well, Non-toxic, No Acute Distress - Extremities Exam Additional comments: dressing c/d/i to LLE - Neurological Exam Neurological Exam: Alert, Awake, Oriented x3 - Psychiatric Exam Psychiatric exam: Normal Affect, Normal Mood Assessment and Plan - Assessment and Plan (Free Text) Assessment: 57 year old male 4 days s/p left leg wound debridment Plan: Pt was seen and examined Pt NPO status was confirmed All Pre-op testing and clearance was in the chart Pt has exhausted all conservative treatment at this time and is opting for surgical intervention Pt was explained procedure and post-operative course All pt's questions were answered to satisfaction No guarantees were made Pt understands all risks, benefits and complications of procedure Pt will follow-up with Dr. Laguna
[2018-01-26 07:23] LABS: INR 1.1; PROTHROMBIN TIME 12.4 SECONDS (9.7-12.2)
[2018-01-26 07:26] LABS: BLOOD UREA NITROGEN 31 mg/dL (9-20); CALCIUM 9.2 mg/dl (8.6-10.4); GFR AFRICAN-AMERICAN > 60; GFR NON-AFRICAN AMERICAN 52
[2018-01-26] MEDS: (Novolin R) Insulin Human Regular 100 units/ml vial SC SCH ×4 (07:30→21:29)
[2018-01-26 07:37] LABS: BASO % 0.7 % (0.0-2.0); EOS # 0.3 K/uL (0.0-0.7); EOS % 4.4 % (0.0-4.0); HEMOGLOBIN 11.3 g/dL (12.0-18.0); LYMPH # 1.5 K/uL (1.0-4.3); LYMPH % 22.6 % (20.0-40.0); MEAN CELL VOLUME 78.8 fL (80.0-94.0); MEAN PLATELET VOLUME 10.1 fL (7.2-11.7); MONO # 0.6 K/uL (0.0-0.8); MONO % 8.7 % (0.0-10.0); NEUT # 4.2 K/uL (1.8-7.0); NEUT % 63.6 % (50.0-75.0); NRBC % 0.1 % (0.0-2.0); RBC 4.34 Mil/uL (4.40-5.90); WHITE BLOOD COUNT 6.5 K/uL (4.8-10.8)
[2018-01-26] MEDS ORDERED: Propofol 10 mg/ml Inj (20 ML) ONE ×3 (07:38→08:44)
[2018-01-26] MEDS ORDERED: Bupivacaine HCl 0.5% PF (10 ml) Inj ONE (07:43)
[2018-01-26] MEDS ORDERED: Lidocaine 2% Inj (20ml) ONE (07:43)
[2018-01-26] MEDS: Fluticasone-Salmeterol 250-50mcg Diskus IH SCH ×2 (08:00→21:01)
[2018-01-26] MEDS ORDERED: Sodium Chloride 0.9% 1,000 ML IV ONE (08:00)
[2018-01-26] MEDS: Sodium Chloride 0.9% 1,000 ML IV SCH ×2 (08:45→23:31)
--- NOTE | 2018-01-26 09:08 | PCM.SURG1 ---
Surgeon's Initial Post Op Note - Surgeon's Notes Surgeon: Dr. Casey Laguna, DPM [employer] Specialist: Dr. Rui Hennessy, PGY1 Type of Anesthesia: IV Sedation, Local Anesthesia Administered By: Dr. Vincent Pre-Operative Diagnosis: Multiple, chronic, non-healing wounds of left leg Operative Findings: See dictation report. M- Alloderm skin grafts, steristrips. I- Preop: 20 cc 1:1 2% lidocaine plain, 0.5% marcaine plain Post-Operative Diagnosis: Same Operation Performed: Debridement of multiple chronic, non-healing wounds of left leg with application of Alloderm allograft Specimen/Specimens Removed: None Estimated Blood Loss: EBL {In ML}: 5 Blood Products Given: N/A Drains Used: No Drains Post-Op Condition: Good Date of Surgery/Procedure: 01/26/18 Time of Surgery/Procedure: 09:08
[2018-01-26] MEDS ORDERED: HYDROmorphone 0.5 mg/0.5 ml ISec ONE (09:13)
[2018-01-26] MEDS: HYDROmorphone 0.5 mg/0.5 ml ISec IVP PRN ×2 (09:13→09:19)
[2018-01-26] MEDS: Multiple Vitamins Tab PO SCH (10:05)
[2018-01-26] MEDS: Potassium Chloride 20 mEq ER Tab PO SCH (10:05)
[2018-01-26] MEDS: Pantoprazole 40 mg EC Tab PO SCH (10:07)
--- NOTE | 2018-01-26 21:48 | OP ---
PROCEDURE DATE: 01/26/2018 SURGEON: Casey Laguna DPM BRAKE OPERATOR HEAVY DUTY: Rui Hennessy DPM, PGY-1 ANESTHESIOLOGIST: Dr. Vincent. ANESTHESIA: IV sedation, local. PREOPERATIVE DIAGNOSIS: Multiple chronic nonhealing superficial ulcerations to the left leg. POSTOPERATIVE DIAGNOSIS: Multiple chronic nonhealing superficial ulcerations to the left leg. NAME OF PROCEDURE: Debridement of multiple chronic nonhealing ulcerations to the left leg with application of AlloDerm skin graft. INDICATIONS: The patient is a 57-year-old male with the above diagnosis. The patient has exhausted all conservative treatment at this time and now requires surgical intervention. The patient signed the consent after careful explanation of risks, benefits, complications and alternatives for surgical procedure. No guarantees were given nor implied. NPO status was confirmed prior to taking the patient to the OR. PREPARATION: The patient was brought into the operating room and left on his bed in a supine position. Time-out was performed for identification of the correction patient and procedure. After induction of IV sedation, the patient received a total 20 mL of 1:1 mixture of 0.5% Marcaine plain and 2% lidocaine plain in a local block fashion circumferentially around his leg just proximal to where the most proximal ulceration site was seen. The left lower extremity was then prepped and draped in a normal sterile manner and the procedure began. No tourniquet was used during this procedure. DESCRIPTION OF PROCEDURE: Attention was then turned to the left leg where multiple superficial chronic nonhealing ulcerations were noted circumferentially around the leg from the level just distal to the tibial tuberosity expanding distally to just proximal to the level of the ankle. Using a Simpulse, 3 L of normal sterile saline was used to irrigate all ulceration sites with copious amounts of the saline. Some fresh healthy bleeding was noted to some of the ulceration sites afterwards. Mastisol was then applied to all epithelialized skin surrounding the ulceration sites and five AlloDerm skin grafts were applied to the ulceration sites and held in place with Steri-Strips. The leg was then dressed with multiple pieces of nonadherent Telfa dressing, multiple rolls of Kerlix, multiple ABDs, and Coban. POSTOPERATIVE CONDITION: The patient tolerated the anesthesia and procedure well and was escorted to the recovery room with vital signs stable and neurovascular status intact to the left lower extremity. Patient is to remain weightbearing as tolerated to the left lower extremity in a surgical shoe and is to keep the dressings clean, dry, and intact for a minimum of one week. The patient will remain in-house for the time being and Podiatry will continue to follow up daily. Rui Hennessy DPM Casey Laguna DPM DENIS
--- NOTE | 2018-01-26 23:08 | CP.PCM.PN ---
Subjective - Date & Time of Evaluation Date of Evaluation: 01/26/18 Time of Evaluation: 18:40 - Subjective Subjective: Pt is s/p OR he has debribement of left calf wound done Objective - Vital Signs/Intake and Output Vital Signs (last 24 hours): Temp Pulse Resp BP Pulse Ox 98.1 F 91 H 20 120/76 94 L 01/26/18 15:27 01/26/18 15:27 01/26/18 15:27 01/26/18 17:27 01/26/18 15:27 Intake and Output: 01/26/18 01/27/18 18:59 06:59 Intake Total 1050 Output Total 1400 500 Balance -350 -500 - Medications Medications: Current Medications Acetaminophen (Tylenol 325mg Tab) 650 mg PO Q6 PRN PRN Reason: Headache Ciprofloxacin (Cipro) 500 mg PO BID [facility] Last Admin: 01/26/18 17:31 Dose: 500 mg Docusate Sodium (Colace) 100 mg PO DAILY [facility] Last Admin: 01/26/18 10:08 Dose: 100 mg Enoxaparin Sodium (Lovenox) 40 mg SC DAILY [facility] Last Admin: 01/25/18 09:48 Dose: 40 mg Furosemide (Lasix) 40 mg PO BID [facility] Last Admin: 01/26/18 17:27 Dose: 40 mg Hydralazine HCl (Apresoline) 25 mg PO Q8 [facility] Last Admin: 01/26/18 21:29 Dose: 25 mg Sodium Chloride (Sodium Chloride 0.9%) 1,000 mls @ 75 mls/hr IV .[id number] [facility] Last Admin: 01/26/18 08:45 Dose: Not Given Insulin Human Regular (Novolin R) 0 unit SC ACHS [facility] PRN Reason: Protocol Last Admin: 01/26/18 21:29 Dose: Not Given Levothyroxine Sodium (Synthroid) 75 mcg PO 0630 [facility] Last Admin: 01/26/18 06:43 Dose: 75 mcg Linezolid (Zyvox) 600 mg PO BID [facility] Last Admin: 01/26/18 21:39 Dose: 600 mg Metformin HCl (Glucophage Xr) 500 mg PO BID [facility] Last Admin: 01/26/18 17:26 Dose: 500 mg Montelukast Sodium (Singulair) 10 mg PO HS [facility] Last Admin: 01/26/18 21:29 Dose: 10 mg Multivitamins (Hexavitamin) 1 tab PO DAILY [facility] Last Admin: 01/26/18 10:05 Dose: 1 tab Mupirocin (Bactroban Ointment) 3 gm TOP BID [facility] Last Admin: 01/26/18 17:28 Dose: Not Given Oxycodone HCl (Oxycontin Extended Release Tab) 80 mg PO Q6H [facility] Last Admin: 01/26/18 21:33 Dose: 80 mg Oxycodone HCl (Oxycodone Immediate Release Tab) 10 mg PO Q4H PRN PRN Reason: Pain, moderate (4-7) Oxycodone/Acetaminophen (Percocet 5/325 Mg Tab) 2 tab PO Q4H PRN PRN Reason: Pain, moderate (4-7) Stop: 01/27/18 00:51 Last Admin: 01/26/18 17:27 Dose: 2 tab Pantoprazole Sodium (Protonix Ec Tab) 40 mg PO DAILY [facility] Last Admin: 01/26/18 10:07 Dose: 40 mg Potassium Chloride (K-Dur 20 Meq Er Tab) 20 meq PO DAILY [facility] Last Admin: 01/26/18 10:05 Dose: 20 meq Fluticasone/Salmeterol (Advair Diskus 250/50) 1 puff IH RQ12 [facility] Last Admin: 01/26/18 21:01 Dose: Not Given Sitagliptin Phosphate (Januvia) 50 mg PO DAILY [facility] Last Admin: 01/26/18 10:00 Dose: Not Given Zolpidem Tartrate (Ambien) 5 mg PO HS PRN PRN Reason: Insomnia - Labs Labs: 01/26/18 07:04 01/26/18 07:04 PT 12.4 SECONDS (9.7-12.2) H 01/26/18 07:04 INR 1.1 01/26/18 07:04 APTT 31 SECONDS (21-34) 01/26/18 07:04 - Constitutional Appears: No Acute Distress - Head Exam Head Exam: ATRAUMATIC, NORMAL INSPECTION, NORMOCEPHALIC - Eye Exam Eye Exam: EOMI, Normal appearance, PERRL Pupil Exam: NORMAL ACCOMODATION, PERRL - Respiratory Exam Respiratory Exam: Clear to Ausculation Bilateral, NORMAL BREATHING PATTERN - Cardiovascular Exam Cardiovascular Exam: REGULAR RHYTHM, +S1, +S2. absent: Murmur - GI/Abdominal Exam GI & Abdominal Exam: Soft, Normal Bowel Sounds. absent: Tenderness Assessment and Plan (1) Cellulitis Status: Acute (2) Infected ulcer of skin Status: Acute (3) Morbid obesity Status: Acute (4) Obstructive sleep apnea Status: Acute (5) PVD (peripheral vascular disease) Status: Acute (6) Type 2 diabetes mellitus Status: Acute
[2018-01-27] MEDS: oxyCODONE 80 mg ER Tab (oxyCONTIN) PO SCH ×4 (02:32→21:57)
[2018-01-27] MEDS: Levothyroxine 75 MCG TAB PO SCH (06:37)
[2018-01-27] MEDS ORDERED: Oxycodone/Acetaminophen 5/325 mg Tab PO ONE (07:01)
[2018-01-27] MEDS: Fluticasone-Salmeterol 250-50mcg Diskus IH SCH ×2 (07:56→19:51)
[2018-01-27] MEDS: (Novolin R) Insulin Human Regular 100 units/ml vial SC SCH ×4 (08:18→21:58)
--- NOTE | 2018-01-27 09:10 | CP.PCM.PN ---
Subjective - Date & Time of Evaluation Date of Evaluation: 01/27/18 Time of Evaluation: 09:09 - Subjective Subjective: Podiatry Progress note for Dr. Laguna 57 year old male was seen at bedside 1 day s/p left leg application of graft. Patient AAOx3, NAD. Dressing is clean, dry, intact. Denies any n/v/f/c/sob/cp. Objective - Vital Signs/Intake and Output Vital Signs (last 24 hours): Temp Pulse Resp BP Pulse Ox 98.0 F 89 20 131/75 96 01/26/18 23:15 01/26/18 23:15 01/26/18 23:15 01/26/18 23:15 01/26/18 23:15 Intake and Output: 01/27/18 01/27/18 06:59 18:59 Output Total 500 Balance -500 - Medications Medications: Current Medications Acetaminophen (Tylenol 325mg Tab) 650 mg PO Q6 PRN PRN Reason: Headache Ciprofloxacin (Cipro) 500 mg PO BID [facility] Last Admin: 01/26/18 17:31 Dose: 500 mg Docusate Sodium (Colace) 100 mg PO DAILY [facility] Last Admin: 01/26/18 10:08 Dose: 100 mg Enoxaparin Sodium (Lovenox) 40 mg SC DAILY [facility] Last Admin: 01/25/18 09:48 Dose: 40 mg Furosemide (Lasix) 40 mg PO BID [facility] Last Admin: 01/26/18 17:27 Dose: 40 mg Hydralazine HCl (Apresoline) 25 mg PO Q8 [facility] Last Admin: 01/27/18 06:37 Dose: 25 mg Sodium Chloride (Sodium Chloride 0.9%) 1,000 mls @ 75 mls/hr IV .[id number] [facility] Last Admin: 01/26/18 23:31 Dose: 75 mls/hr Insulin Human Regular (Novolin R) 0 unit SC ACHS [facility] PRN Reason: Protocol Last Admin: 01/26/18 21:29 Dose: Not Given Levothyroxine Sodium (Synthroid) 75 mcg PO 0630 [facility] Last Admin: 01/27/18 06:37 Dose: 75 mcg Linezolid (Zyvox) 600 mg PO BID [facility] Last Admin: 01/26/18 21:39 Dose: 600 mg Metformin HCl (Glucophage Xr) 500 mg PO BID [facility] Last Admin: 01/26/18 17:26 Dose: 500 mg Montelukast Sodium (Singulair) 10 mg PO HS [facility] Last Admin: 01/26/18 21:29 Dose: 10 mg Multivitamins (Hexavitamin) 1 tab PO DAILY [facility] Last Admin: 01/26/18 10:05 Dose: 1 tab Mupirocin (Bactroban Ointment) 3 gm TOP BID [facility] Last Admin: 01/26/18 17:28 Dose: Not Given Oxycodone HCl (Oxycontin Extended Release Tab) 80 mg PO Q6H [facility] Last Admin: 01/27/18 08:09 Dose: 80 mg Oxycodone HCl (Oxycodone Immediate Release Tab) 10 mg PO Q4H PRN PRN Reason: Pain, moderate (4-7) Pantoprazole Sodium (Protonix Ec Tab) 40 mg PO DAILY [facility] Last Admin: 01/26/18 10:07 Dose: 40 mg Potassium Chloride (K-Dur 20 Meq Er Tab) 20 meq PO DAILY [facility] Last Admin: 01/26/18 10:05 Dose: 20 meq Fluticasone/Salmeterol (Advair Diskus 250/50) 1 puff IH RQ12 [facility] Last Admin: 01/27/18 07:56 Dose: 1 puff Sitagliptin Phosphate (Januvia) 50 mg PO DAILY [facility] Last Admin: 01/26/18 10:00 Dose: Not Given Zolpidem Tartrate (Ambien) 5 mg PO HS PRN PRN Reason: Insomnia - Labs Labs: 01/26/18 07:04 01/26/18 07:04 PT 12.4 SECONDS (9.7-12.2) H 01/26/18 07:04 INR 1.1 01/26/18 07:04 APTT 31 SECONDS (21-34) 01/26/18 07:04 - Constitutional Appears: Well, Non-toxic, No Acute Distress - Extremities Exam Additional comments: Dressing clean, dry, intact to left lower extremity - Neurological Exam Neurological Exam: Alert, Awake, Oriented x3 - Psychiatric Exam Psychiatric exam: Normal Affect, Normal Mood Assessment and Plan - Assessment and Plan (Free Text) Assessment: 57 year old male 1 day s/p left leg application of graft and 5 days s/p left leg wound debridment Plan: -Patient was seen at bedside -Discused in detail with attending, Dr. Laguna -Labs, charts, vitals reviewed- afebrile, absent leukocytosis (WBC 6.5 on ) -Left leg dressing to stay clean, dry, intact until 02/02/18 -Patient to follow up with Dr. Laguna upon discharge -Podiatry will continue to follow while in house
[2018-01-27] MEDS: Enoxaparin 40 mg Syringe SC SCH (10:00)
[2018-01-27] MEDS: Multiple Vitamins Tab PO SCH (10:00)
[2018-01-27] MEDS: Pantoprazole 40 mg EC Tab PO SCH (10:00)
[2018-01-27] MEDS: Potassium Chloride 20 mEq ER Tab PO SCH (10:05)
[2018-01-27] MEDS: Oxycodone/Acetaminophen 5/325 mg Tab PO PRN ×3 (11:45→20:07)
[2018-01-27] MEDS: Sodium Chloride 0.9% 1,000 ML IV SCH (15:30)
--- NOTE | 2018-01-27 22:47 | CP.PCM.PN ---
Subjective - Date & Time of Evaluation Date of Evaluation: 01/27/18 Time of Evaluation: 18:30 - Subjective Subjective: Pt seen and evaluated at bedside 1 day s/p left leg application of graft. Patient AAOx3, NAD. Dressing is clean, dry, intact. Denies any n/v/f/c/sob/cp. Objective - Vital Signs/Intake and Output Vital Signs (last 24 hours): Temp Pulse Resp BP Pulse Ox 97.8 F 70 18 107/62 94 L 01/27/18 15:50 01/27/18 15:50 01/27/18 15:50 01/27/18 18:08 01/27/18 15:50 Intake and Output: 01/27/18 01/28/18 18:59 06:59 Intake Total 600 Output Total 2000 Balance -1400 - Medications Medications: Current Medications Acetaminophen (Tylenol 325mg Tab) 650 mg PO Q6 PRN PRN Reason: Headache Ciprofloxacin (Cipro) 500 mg PO BID [facility] Last Admin: 01/27/18 18:06 Dose: 500 mg Docusate Sodium (Colace) 100 mg PO DAILY [facility] Last Admin: 01/27/18 10:00 Dose: 100 mg Enoxaparin Sodium (Lovenox) 40 mg SC DAILY [facility] Last Admin: 01/27/18 10:00 Dose: 40 mg Furosemide (Lasix) 40 mg PO BID [facility] Last Admin: 01/27/18 18:08 Dose: 40 mg Hydralazine HCl (Apresoline) 25 mg PO Q8 [facility] Last Admin: 01/27/18 21:58 Dose: 25 mg Sodium Chloride (Sodium Chloride 0.9%) 1,000 mls @ 75 mls/hr IV .[id number] [facility] Last Admin: 01/27/18 15:30 Dose: Not Given Insulin Human Regular (Novolin R) 0 unit SC ACHS [facility] PRN Reason: Protocol Last Admin: 01/27/18 21:58 Dose: Not Given Levothyroxine Sodium (Synthroid) 75 mcg PO 0630 [facility] Last Admin: 01/27/18 06:37 Dose: 75 mcg Linezolid (Zyvox) 600 mg PO BID [facility] Last Admin: 01/27/18 18:06 Dose: 600 mg Metformin HCl (Glucophage Xr) 500 mg PO BID [facility] Last Admin: 01/27/18 18:06 Dose: 500 mg Montelukast Sodium (Singulair) 10 mg PO HS [facility] Last Admin: 01/27/18 21:58 Dose: 10 mg Multivitamins (Hexavitamin) 1 tab PO DAILY [facility] Last Admin: 01/27/18 10:00 Dose: 1 tab Mupirocin (Bactroban Ointment) 3 gm TOP BID [facility] Last Admin: 01/27/18 18:09 Dose: Not Given Oxycodone HCl (Oxycontin Extended Release Tab) 80 mg PO Q6H [facility] Last Admin: 01/27/18 21:57 Dose: 80 mg Oxycodone HCl (Oxycodone Immediate Release Tab) 10 mg PO Q4H PRN PRN Reason: Pain, moderate (4-7) Oxycodone/Acetaminophen (Percocet 5/325 Mg Tab) 2 tab PO Q4H PRN PRN Reason: Pain, Mild (1-3) Stop: 01/30/18 11:25 Last Admin: 01/27/18 20:07 Dose: 2 tab Pantoprazole Sodium (Protonix Ec Tab) 40 mg PO DAILY [facility] Last Admin: 01/27/18 10:00 Dose: 40 mg Potassium Chloride (K-Dur 20 Meq Er Tab) 20 meq PO DAILY [facility] Last Admin: 01/27/18 10:05 Dose: 20 meq Fluticasone/Salmeterol (Advair Diskus 250/50) 1 puff IH RQ12 [facility] Last Admin: 01/27/18 19:51 Dose: 1 puff Sitagliptin Phosphate (Januvia) 50 mg PO DAILY [facility] Last Admin: 01/27/18 10:00 Dose: 50 mg Zolpidem Tartrate (Ambien) 5 mg PO HS PRN PRN Reason: Insomnia - Labs Labs: 01/26/18 07:04 01/26/18 07:04 PT 12.4 SECONDS (9.7-12.2) H 01/26/18 07:04 INR 1.1 01/26/18 07:04 APTT 31 SECONDS (21-34) 01/26/18 07:04 Assessment and Plan (1) Cellulitis Status: Acute (2) Infected ulcer of skin Status: Acute (3) Morbid obesity Status: Acute (4) Obstructive sleep apnea Status: Acute (5) PVD (peripheral vascular disease) Status: Acute (6) Type 2 diabetes mellitus Status: Acute
[2018-01-28] MEDS: Oxycodone/Acetaminophen 5/325 mg Tab PO PRN ×6 (00:55→23:12)
[2018-01-28] MEDS: oxyCODONE 80 mg ER Tab (oxyCONTIN) PO SCH ×4 (03:09→22:00)
[2018-01-28] MEDS: Levothyroxine 75 MCG TAB PO SCH (05:30)
[2018-01-28] MEDS: Fluticasone-Salmeterol 250-50mcg Diskus IH SCH ×2 (07:30→20:46)
[2018-01-28] MEDS: (Novolin R) Insulin Human Regular 100 units/ml vial SC SCH ×4 (08:00→21:43)
[2018-01-28 10:06] LABS: CALCIUM 8.9 mg/dl (8.6-10.4)
[2018-01-28] MEDS: Pantoprazole 40 mg EC Tab PO SCH (10:21)
[2018-01-28] MEDS: Potassium Chloride 20 mEq ER Tab PO SCH (10:22)
[2018-01-28] MEDS: Multiple Vitamins Tab PO SCH (10:23)
[2018-01-28] MEDS: Enoxaparin 40 mg Syringe SC SCH (10:23)
--- NOTE | 2018-01-28 14:22 | CP.PCM.PN ---
Subjective - Date & Time of Evaluation Date of Evaluation: 01/28/18 Time of Evaluation: 14:19 - Subjective Subjective: 57 y/o male seen at bedside this morning with attending Dr. Laguna 2 days s/p left leg wound debridement with graft placement. Pt resting comfortably in bed at time of visit in [facility]. Denies any acute events overnight. Denies having any pain at present. Says he thinks he will be ready to go home soon. Is aware of the need to follow up with Dr. Laguna for routine wound care visits. Denies F/C/N /V/CP/SOB Objective - Vital Signs/Intake and Output Vital Signs (last 24 hours): Temp Pulse Resp BP Pulse Ox 98.0 F 69 20 110/74 96 01/28/18 08:53 01/28/18 08:53 01/28/18 08:53 01/28/18 10:24 01/28/18 08:53 Intake and Output: 01/28/18 01/28/18 06:59 18:59 Intake Total 660 Output Total 1100 Balance -440 - Medications Medications: Current Medications Acetaminophen (Tylenol 325mg Tab) 650 mg PO Q6 PRN PRN Reason: Headache Ciprofloxacin (Cipro) 500 mg PO BID [facility] Last Admin: 01/28/18 10:23 Dose: 500 mg Docusate Sodium (Colace) 100 mg PO DAILY [facility] Last Admin: 01/28/18 10:22 Dose: 100 mg Enoxaparin Sodium (Lovenox) 40 mg SC DAILY [facility] Last Admin: 01/28/18 10:23 Dose: 40 mg Furosemide (Lasix) 40 mg PO BID [facility] Last Admin: 01/28/18 10:24 Dose: 40 mg Hydralazine HCl (Apresoline) 25 mg PO Q8 [facility] Last Admin: 01/28/18 05:28 Dose: 25 mg Sodium Chloride (Sodium Chloride 0.9%) 1,000 mls @ 75 mls/hr IV .[id number] [facility] Last Admin: 01/27/18 15:30 Dose: Not Given Insulin Human Regular (Novolin R) 0 unit SC ACHS [facility] PRN Reason: Protocol Last Admin: 01/28/18 08:00 Dose: Not Given Levothyroxine Sodium (Synthroid) 75 mcg PO 0630 [facility] Last Admin: 01/28/18 05:30 Dose: 75 mcg Linezolid (Zyvox) 600 mg PO BID [facility] Last Admin: 01/28/18 10:35 Dose: 600 mg Metformin HCl (Glucophage Xr) 500 mg PO BID [facility] Last Admin: 01/28/18 10:22 Dose: 500 mg Montelukast Sodium (Singulair) 10 mg PO HS [facility] Last Admin: 01/27/18 21:58 Dose: 10 mg Multivitamins (Hexavitamin) 1 tab PO DAILY [facility] Last Admin: 01/28/18 10:23 Dose: 1 tab Mupirocin (Bactroban Ointment) 3 gm TOP BID [facility] Last Admin: 01/27/18 18:09 Dose: Not Given Oxycodone HCl (Oxycontin Extended Release Tab) 80 mg PO Q6H [facility] Last Admin: 01/28/18 08:41 Dose: 80 mg Oxycodone HCl (Oxycodone Immediate Release Tab) 10 mg PO Q4H PRN PRN Reason: Pain, moderate (4-7) Oxycodone/Acetaminophen (Percocet 5/325 Mg Tab) 2 tab PO Q4H PRN PRN Reason: Pain, Mild (1-3) Stop: 01/30/18 11:25 Last Admin: 01/28/18 10:20 Dose: 2 tab Pantoprazole Sodium (Protonix Ec Tab) 40 mg PO DAILY [facility] Last Admin: 01/28/18 10:21 Dose: 40 mg Potassium Chloride (K-Dur 20 Meq Er Tab) 20 meq PO DAILY [facility] Last Admin: 01/28/18 10:22 Dose: 20 meq Fluticasone/Salmeterol (Advair Diskus 250/50) 1 puff IH RQ12 [facility] Last Admin: 01/28/18 07:30 Dose: 1 puff Sitagliptin Phosphate (Januvia) 50 mg PO DAILY [facility] Last Admin: 01/28/18 10:21 Dose: 50 mg Zolpidem Tartrate (Ambien) 5 mg PO HS PRN PRN Reason: Insomnia - Labs Labs: 01/26/18 07:04 01/28/18 09:47 PT 12.4 SECONDS (9.7-12.2) H 01/26/18 07:04 INR 1.1 01/26/18 07:04 APTT 31 SECONDS (21-34) 01/26/18 07:04 - Constitutional Appears: Well, Non-toxic, No Acute Distress - Extremities Exam Additional comments: Dressing clean, dry, intact to left lower extremity - Neurological Exam Neurological Exam: Alert, Awake, Oriented x3 - Psychiatric Exam Psychiatric exam: Normal Affect, Normal Mood Assessment and Plan - Assessment and Plan (Free Text) Assessment: 57 year old male 2 days s/p left leg application of graft and 6 days s/p left leg wound debridement Plan: Patient was seen at bedside with attending, Dr. Laguna Labs, charts, vitals reviewed- afebrile; absent leukocytosis as of 01/26/18 Left leg dressing to stay clean, dry, intact until 02/02/18 Patient to follow up with Dr. Laguna on Wednesdays in the [facility] wound care center upon discharge Podiatry will continue to follow while in house
--- NOTE | 2018-01-28 17:12 | CP.PCM.PN ---
Subjective - Date & Time of Evaluation Date of Evaluation: 01/28/18 Time of Evaluation: 17:30 - Subjective Subjective: Patient seen and examined this am, denies any chest pain, sob, c/o pain to the lower extremities [id number] intact s/p debridement and skin graft left lower leg POD#2 Objective - Vital Signs/Intake and Output Vital Signs (last 24 hours): Temp Pulse Resp BP Pulse Ox 98.0 F 73 20 135/81 94 L 01/28/18 15:23 01/28/18 15:23 01/28/18 15:23 01/28/18 15:23 01/28/18 15:23 Intake and Output: 01/28/18 01/28/18 06:59 18:59 Intake Total 660 Output Total 1100 Balance -440 - Medications Medications: Current Medications Acetaminophen (Tylenol 325mg Tab) 650 mg PO Q6 PRN PRN Reason: Headache Ciprofloxacin (Cipro) 500 mg PO BID [facility] Last Admin: 01/28/18 10:23 Dose: 500 mg Docusate Sodium (Colace) 100 mg PO DAILY [facility] Last Admin: 01/28/18 10:22 Dose: 100 mg Enoxaparin Sodium (Lovenox) 40 mg SC DAILY [facility] Last Admin: 01/28/18 10:23 Dose: 40 mg Furosemide (Lasix) 40 mg PO BID [facility] Last Admin: 01/28/18 10:24 Dose: 40 mg Hydralazine HCl (Apresoline) 25 mg PO Q8 [facility] Last Admin: 01/28/18 14:23 Dose: 25 mg Sodium Chloride (Sodium Chloride 0.9%) 1,000 mls @ 75 mls/hr IV .[id number] [facility] Last Admin: 01/27/18 15:30 Dose: Not Given Insulin Human Regular (Novolin R) 0 unit SC ACHS [facility] PRN Reason: Protocol Last Admin: 01/28/18 12:24 Dose: Not Given Levothyroxine Sodium (Synthroid) 75 mcg PO 0630 [facility] Last Admin: 01/28/18 05:30 Dose: 75 mcg Linezolid (Zyvox) 600 mg PO BID [facility] Last Admin: 01/28/18 10:35 Dose: 600 mg Metformin HCl (Glucophage Xr) 500 mg PO BID [facility] Last Admin: 01/28/18 10:22 Dose: 500 mg Montelukast Sodium (Singulair) 10 mg PO HS [facility] Last Admin: 01/27/18 21:58 Dose: 10 mg Multivitamins (Hexavitamin) 1 tab PO DAILY [facility] Last Admin: 01/28/18 10:23 Dose: 1 tab Mupirocin (Bactroban Ointment) 3 gm TOP BID [facility] Last Admin: 01/28/18 10:23 Dose: Not Given Oxycodone HCl (Oxycontin Extended Release Tab) 80 mg PO Q6H [facility] Last Admin: 01/28/18 16:11 Dose: 80 mg Oxycodone HCl (Oxycodone Immediate Release Tab) 10 mg PO Q4H PRN PRN Reason: Pain, moderate (4-7) Oxycodone/Acetaminophen (Percocet 5/325 Mg Tab) 2 tab PO Q4H PRN PRN Reason: Pain, Mild (1-3) Stop: 01/30/18 11:25 Last Admin: 01/28/18 14:22 Dose: 2 tab Pantoprazole Sodium (Protonix Ec Tab) 40 mg PO DAILY [facility] Last Admin: 01/28/18 10:21 Dose: 40 mg Potassium Chloride (K-Dur 20 Meq Er Tab) 20 meq PO DAILY [facility] Last Admin: 01/28/18 10:22 Dose: 20 meq Fluticasone/Salmeterol (Advair Diskus 250/50) 1 puff IH RQ12 [facility] Last Admin: 01/28/18 07:30 Dose: 1 puff Sitagliptin Phosphate (Januvia) 50 mg PO DAILY [facility] Last Admin: 01/28/18 10:21 Dose: 50 mg Warfarin Sodium (Coumadin) 10 mg PO 1800 [facility] Stop: 01/28/18 18:01 Zolpidem Tartrate (Ambien) 5 mg PO HS PRN PRN Reason: Insomnia - Labs Labs: 01/26/18 07:04 01/28/18 09:47 PT 12.4 SECONDS (9.7-12.2) H 01/26/18 07:04 INR 1.1 01/26/18 07:04 APTT 31 SECONDS (21-34) 01/26/18 07:04 Assessment and Plan - Assessment and Plan (Free Text) Assessment: A/P
[2018-01-28 17:18] LABS: INR 1.1; PROTHROMBIN TIME 12.2 SECONDS (9.7-12.2)
--- NOTE | 2018-01-28 18:08 | CP.PCM.PN ---
Subjective - Date & Time of Evaluation Date of Evaluation: 01/28/18 Time of Evaluation: 08:00 - Subjective Subjective: rx in progress to cont po rx as out pt Objective - Vital Signs/Intake and Output Vital Signs (last 24 hours): Temp Pulse Resp BP Pulse Ox 98.0 F 73 20 110/75 94 L 01/28/18 15:23 01/28/18 15:23 01/28/18 15:23 01/28/18 17:57 01/28/18 15:23 Intake and Output: 01/28/18 01/28/18 06:59 18:59 Intake Total 660 Output Total 1100 Balance -440 - Medications Medications: Current Medications Acetaminophen (Tylenol 325mg Tab) 650 mg PO Q6 PRN PRN Reason: Headache Ciprofloxacin (Cipro) 500 mg PO BID [facility] Last Admin: 01/28/18 17:50 Dose: 500 mg Docusate Sodium (Colace) 100 mg PO DAILY [facility] Last Admin: 01/28/18 10:22 Dose: 100 mg Enoxaparin Sodium (Lovenox) 40 mg SC DAILY [facility] Last Admin: 01/28/18 10:23 Dose: 40 mg Furosemide (Lasix) 40 mg PO BID [facility] Last Admin: 01/28/18 17:57 Dose: 40 mg Hydralazine HCl (Apresoline) 25 mg PO Q8 [facility] Last Admin: 01/28/18 14:23 Dose: 25 mg Sodium Chloride (Sodium Chloride 0.9%) 1,000 mls @ 75 mls/hr IV .[id number] [facility] Last Admin: 01/27/18 15:30 Dose: Not Given Insulin Human Regular (Novolin R) 0 unit SC ACHS [facility] PRN Reason: Protocol Last Admin: 01/28/18 17:30 Dose: Not Given Levothyroxine Sodium (Synthroid) 75 mcg PO 0630 [facility] Last Admin: 01/28/18 05:30 Dose: 75 mcg Linezolid (Zyvox) 600 mg PO BID [facility] Last Admin: 01/28/18 17:50 Dose: 600 mg Metformin HCl (Glucophage Xr) 500 mg PO BID [facility] Last Admin: 01/28/18 17:50 Dose: 500 mg Montelukast Sodium (Singulair) 10 mg PO HS [facility] Last Admin: 01/27/18 21:58 Dose: 10 mg Multivitamins (Hexavitamin) 1 tab PO DAILY [facility] Last Admin: 01/28/18 10:23 Dose: 1 tab Mupirocin (Bactroban Ointment) 3 gm TOP BID [facility] Last Admin: 01/28/18 10:23 Dose: Not Given Oxycodone HCl (Oxycontin Extended Release Tab) 80 mg PO Q6H [facility] Last Admin: 01/28/18 16:11 Dose: 80 mg Oxycodone HCl (Oxycodone Immediate Release Tab) 10 mg PO Q4H PRN PRN Reason: Pain, moderate (4-7) Oxycodone/Acetaminophen (Percocet 5/325 Mg Tab) 2 tab PO Q4H PRN PRN Reason: Pain, Mild (1-3) Stop: 01/30/18 11:25 Last Admin: 01/28/18 14:22 Dose: 2 tab Pantoprazole Sodium (Protonix Ec Tab) 40 mg PO DAILY [facility] Last Admin: 01/28/18 10:21 Dose: 40 mg Potassium Chloride (K-Dur 20 Meq Er Tab) 20 meq PO DAILY [facility] Last Admin: 01/28/18 10:22 Dose: 20 meq Fluticasone/Salmeterol (Advair Diskus 250/50) 1 puff IH RQ12 [facility] Last Admin: 01/28/18 07:30 Dose: 1 puff Sitagliptin Phosphate (Januvia) 50 mg PO DAILY [facility] Last Admin: 01/28/18 10:21 Dose: 50 mg Zolpidem Tartrate (Ambien) 5 mg PO HS PRN PRN Reason: Insomnia - Labs Labs: 01/26/18 07:04 01/28/18 09:47 PT 12.2 SECONDS (9.7-12.2) 01/28/18 17:10 INR 1.1 01/28/18 17:10 APTT 31 SECONDS (21-34) 01/26/18 07:04 - Constitutional Appears: Non-toxic, Chronically Ill - Head Exam Head Exam: NORMOCEPHALIC - Eye Exam Eye Exam: PERRL - ENT Exam ENT Exam: Mucous Membranes Dry - Neck Exam Neck Exam: absent: Lymphadenopathy - Respiratory Exam Respiratory Exam: Decreased Breath Sounds - Cardiovascular Exam Cardiovascular Exam: REGULAR RHYTHM - GI/Abdominal Exam GI & Abdominal Exam: Distended - Rectal Exam Rectal Exam: Deferred Assessment and Plan (1) Cellulitis Status: Acute (2) Infected ulcer of skin Status: Acute (3) Cellulitis Status: Acute (4) Leg ulcer Status: Acute (5) Morbid obesity Status: Acute (6) Obstructive sleep apnea Status: Acute (7) PVD (peripheral vascular disease) Status: Acute
--- NOTE | 2018-01-28 22:51 | CP.PCM.PN ---
Subjective - Date & Time of Evaluation Date of Evaluation: 01/28/18 Time of Evaluation: 18:00 - Subjective Subjective: Pt seen and evalauted, he is for discharge tommorow, he is feeling better Objective - Vital Signs/Intake and Output Vital Signs (last 24 hours): Temp Pulse Resp BP Pulse Ox 98 F 71 20 122/77 98 01/28/18 21:35 01/28/18 21:35 01/28/18 21:35 01/28/18 21:35 01/28/18 21:35 - Medications Medications: Current Medications Acetaminophen (Tylenol 325mg Tab) 650 mg PO Q6 PRN PRN Reason: Headache Ciprofloxacin (Cipro) 500 mg PO BID [facility] Last Admin: 01/28/18 17:50 Dose: 500 mg Docusate Sodium (Colace) 100 mg PO DAILY [facility] Last Admin: 01/28/18 10:22 Dose: 100 mg Enoxaparin Sodium (Lovenox) 40 mg SC DAILY [facility] Last Admin: 01/28/18 10:23 Dose: 40 mg Furosemide (Lasix) 40 mg PO BID [facility] Last Admin: 01/28/18 17:57 Dose: 40 mg Hydralazine HCl (Apresoline) 25 mg PO Q8 [facility] Last Admin: 01/28/18 21:42 Dose: 25 mg Sodium Chloride (Sodium Chloride 0.9%) 1,000 mls @ 75 mls/hr IV .[id number] [facility] Last Admin: 01/27/18 15:30 Dose: Not Given Insulin Human Regular (Novolin R) 0 unit SC ACHS [facility] PRN Reason: Protocol Last Admin: 01/28/18 21:43 Dose: Not Given Levothyroxine Sodium (Synthroid) 75 mcg PO 0630 [facility] Last Admin: 01/28/18 05:30 Dose: 75 mcg Linezolid (Zyvox) 600 mg PO BID [facility] Last Admin: 01/28/18 17:50 Dose: 600 mg Metformin HCl (Glucophage Xr) 500 mg PO BID [facility] Last Admin: 01/28/18 17:50 Dose: 500 mg Montelukast Sodium (Singulair) 10 mg PO HS [facility] Last Admin: 01/28/18 21:40 Dose: 10 mg Multivitamins (Hexavitamin) 1 tab PO DAILY [facility] Last Admin: 01/28/18 10:23 Dose: 1 tab Mupirocin (Bactroban Ointment) 3 gm TOP BID [facility] Last Admin: 01/28/18 18:00 Dose: Not Given Oxycodone HCl (Oxycontin Extended Release Tab) 80 mg PO Q6H [facility] Last Admin: 01/28/18 22:00 Dose: 80 mg Oxycodone HCl (Oxycodone Immediate Release Tab) 10 mg PO Q4H PRN PRN Reason: Pain, moderate (4-7) Oxycodone/Acetaminophen (Percocet 5/325 Mg Tab) 2 tab PO Q4H PRN PRN Reason: Pain, Mild (1-3) Stop: 01/30/18 11:25 Last Admin: 01/28/18 18:28 Dose: 2 tab Pantoprazole Sodium (Protonix Ec Tab) 40 mg PO DAILY [facility] Last Admin: 01/28/18 10:21 Dose: 40 mg Potassium Chloride (K-Dur 20 Meq Er Tab) 20 meq PO DAILY [facility] Last Admin: 01/28/18 10:22 Dose: 20 meq Fluticasone/Salmeterol (Advair Diskus 250/50) 1 puff IH RQ12 [facility] Last Admin: 01/28/18 20:46 Dose: 1 puff Sitagliptin Phosphate (Januvia) 50 mg PO DAILY [facility] Last Admin: 01/28/18 10:21 Dose: 50 mg Zolpidem Tartrate (Ambien) 5 mg PO HS PRN PRN Reason: Insomnia - Labs Labs: 01/26/18 07:04 01/28/18 09:47 PT 12.2 SECONDS (9.7-12.2) 01/28/18 17:10 INR 1.1 01/28/18 17:10 APTT 31 SECONDS (21-34) 01/26/18 07:04 - Constitutional Appears: No Acute Distress - Head Exam Head Exam: ATRAUMATIC, NORMAL INSPECTION, NORMOCEPHALIC - Eye Exam Eye Exam: EOMI, Normal appearance, PERRL Pupil Exam: NORMAL ACCOMODATION, PERRL - Respiratory Exam Respiratory Exam: Clear to Ausculation Bilateral, NORMAL BREATHING PATTERN - Cardiovascular Exam Cardiovascular Exam: REGULAR RHYTHM, +S1, +S2. absent: Murmur - GI/Abdominal Exam GI & Abdominal Exam: Soft, Normal Bowel Sounds. absent: Tenderness Assessment and Plan (1) Cellulitis Status: Acute (2) Infected ulcer of skin Status: Acute (3) Morbid obesity Status: Acute (4) Obstructive sleep apnea Status: Acute (5) PVD (peripheral vascular disease) Status: Acute (6) Type 2 diabetes mellitus Status: Acute
[2018-01-29] MEDS: oxyCODONE 80 mg ER Tab (oxyCONTIN) PO SCH ×3 (03:29→14:05)
[2018-01-29] MEDS: Oxycodone/Acetaminophen 5/325 mg Tab PO PRN ×3 (03:30→12:11)
[2018-01-29] MEDS: Levothyroxine 75 MCG TAB PO SCH (05:51)
[2018-01-29] MEDS: (Novolin R) Insulin Human Regular 100 units/ml vial SC SCH ×2 (07:46→12:06)
[2018-01-29] MEDS: Fluticasone-Salmeterol 250-50mcg Diskus IH SCH (08:00)
[2018-01-29 08:13] VITALS: PULSE 73; RESP 18; TEMP 97.4; O2SAT 97
[2018-01-29] MEDS: Multiple Vitamins Tab PO SCH (10:26)
[2018-01-29] MEDS: Potassium Chloride 20 mEq ER Tab PO SCH (10:26)
[2018-01-29] MEDS: Pantoprazole 40 mg EC Tab PO SCH (10:26)
[2018-01-29 10:33] VITALS: BP 117/77
[2018-01-29] MEDS: Enoxaparin 40 mg Syringe SC SCH (10:36)
[2018-01-29 14:52] LABS: INR 1.1; PROTHROMBIN TIME 12.1 SECONDS (9.7-12.2)
--- NOTE | 2018-01-29 22:44 | CP.PCM.DIS ---
Provider - Provider Date of Admission: 01/17/18 13:36 Attending physician: Estrada Albright MD Time Spent in preparation of Discharge (in minutes): 45 Diagnosis - Discharge Diagnosis (1) Cellulitis Status: Acute (2) Infected ulcer of skin Status: Acute (3) Morbid obesity Status: Acute (4) Obstructive sleep apnea Status: Acute (5) PVD (peripheral vascular disease) Status: Acute (6) Type 2 diabetes mellitus Status: Acute Hospital Course - Lab Results Lab Results: Micro Results 01/17/18 08:52 Blood-Venous Blood Culture - Final NO GROWTH AFTER 5 DAYS 01/17/18 08:52 Blood-Venous Gram Stain - Final TEST NOT PERFORMED 01/17/18 11:40 Blood-Venous Blood Culture - Final NO GROWTH AFTER 5 DAYS 01/17/18 11:40 Blood-Venous Gram Stain - Final TEST NOT PERFORMED 01/18/18 10:25 Leg - Left Gram Stain - Final 01/18/18 10:25 Leg - Left Wound Culture - Final Pseudomonas Aeruginosa Enterococcus Faecalis 01/17/18 Unknown Urine,Clean Catch Urine Culture - Final No Growth (<1,000 CFU/ML) Most Recent Lab Values WBC 6.5 K/uL (4.8-10.8) 01/26/18 07:04 RBC 4.34 Mil/uL (4.40-5.90) L 01/26/18 07:04 Hgb 11.3 g/dL (12.0-18.0) L 01/26/18 07:04 Hct 34.2 % (35.0-51.0) L 01/26/18 07:04 MCV 78.8 fL (80.0-94.0) L 01/26/18 07:04 MCH 26.0 pg (27.0-31.0) L 01/26/18 07:04 MCHC 33.0 g/dL (33.0-37.0) 01/26/18 07:04 RDW 15.0 % (11.5-14.5) H 01/26/18 07:04 Plt Count 165 K/uL (130-400) 01/26/18 07:04 MPV 10.1 fL (7.2-11.7) 01/26/18 07:04 Neut % (Auto) 63.6 % (50.0-75.0) 01/26/18 07:04 Lymph % (Auto) 22.6 % (20.0-40.0) 01/26/18 07:04 [place] % (Auto) 8.7 % (0.0-10.0) 01/26/18 07:04 Eos % (Auto) 4.4 % (0.0-4.0) H 01/26/18 07:04 Baso % (Auto) 0.7 % (0.0-2.0) 01/26/18 07:04 Neut # (Auto) 4.2 K/uL (1.8-7.0) 01/26/18 07:04 Lymph # (Auto) 1.5 K/uL (1.0-4.3) 01/26/18 07:04 Addison # (Auto) 0.6 K/uL (0.0-0.8) 01/26/18 07:04 Eos # (Auto) 0.3 K/uL (0.0-0.7) 01/26/18 07:04 Baso # (Auto) 0.0 K/uL (0.0-0.2) 01/26/18 07:04 Neutrophils % (Manual) 84 % (50-75) H 01/17/18 11:40 Band Neutrophils % 4 % (0-2) H 01/17/18 11:40 Lymphocytes % (Manual) 4 % (20-40) L 01/17/18 11:40 Reactive Lymphs % 2 % (0-0) H 01/17/18 11:40 Monocytes % (Manual) 5 % (0-10) 01/17/18 11:40 Eosinophils % (Manual) 1 % (0-4) 01/17/18 11:40 Platelet Estimate Normal (NORMAL) 01/17/18 11:40 Polychromasia Slight 01/17/18 11:40 Anisocytosis (manual) Slight 01/17/18 11:40 ESR 110 mm/hr (0-15) H 01/17/18 11:40 PT 12.1 SECONDS (9.7-12.2) 01/29/18 14:16 INR 1.1 01/29/18 14:16 APTT 31 SECONDS (21-34) 01/26/18 07:04 Sodium 138 mmol/L (132-148) 01/28/18 09:47 Potassium 4.1 mmol/L (3.6-5.2) 01/28/18 09:47 Chloride 99 mmol/L (98-107) 01/28/18 09:47 Carbon Dioxide 28 mmol/L (22-30) 01/28/18 09:47 Anion Gap 15 (10-20) 01/28/18 09:47 BUN 31 mg/dL (9-20) H 01/28/18 09:47 Creatinine 1.5 mg/dL (0.8-1.5) 01/28/18 09:47 Est GFR ( Amer) 58 01/28/18 09:47 Est GFR (Non-Af Amer) 48 01/28/18 09:47 POC Glucose (mg/dL) 127 mg/dL (65-110) H 01/29/18 11:45 Random Glucose 189 mg/dL (75-110) H 01/28/18 09:47 Calcium 8.9 mg/dl (8.6-10.4) 01/28/18 09:47 Total Bilirubin 0.7 mg/dL (0.2-1.3) 01/17/18 11:40 AST 23 U/L (17-59) 01/17/18 11:40 ALT 17 U/L (21-72) L 01/17/18 11:40 Alkaline Phosphatase 143 U/L (38-126) H D 01/17/18 11:40 C-React Prot High Sens > 15.00 mg/L (1.00-3.00) H 01/17/18 11:40 Total Protein 7.9 g/dL (6.3-8.3) 01/17/18 11:40 Albumin 3.6 g/dL (3.5-5.0) 01/17/18 11:40 Globulin 4.3 gm/dL (2.2-3.9) H 01/17/18 11:40 Albumin/Globulin Ratio 0.8 (1.0-2.1) L 01/17/18 11:40 Urine Color Yellow (YELLOW) 01/17/18 12:45 Urine Clarity Clear (Clear) 01/17/18 12:45 Urine pH 8.0 (5.0-8.0) 01/17/18 12:45 Ur Specific [place] 1.015 (1.003-1.030) 01/17/18 12:45 Urine Protein 1+ mg/dL (NEGATIVE) H 01/17/18 12:45 Urine Glucose (UA) Normal mg/dL (Normal) 01/17/18 12:45 Urine Ketones Trace mg/dL (NEGATIVE) 01/17/18 12:45 Urine Blood Negative (NEGATIVE) 01/17/18 12:45 Urine Nitrate Negative (NEGATIVE) 01/17/18 12:45 Urine Bilirubin Negative (NEGATIVE) 01/17/18 12:45 Urine Urobilinogen 2.0 mg/dL (0.2-1.0) 01/17/18 12:45 Ur Leukocyte Esterase Neg Tara/uL (Negative) 01/17/18 12:45 Urine WBC (Auto) 1 /hpf (0-5) 01/17/18 12:45 Urine RBC (Auto) < 1 /hpf (0-3) 01/17/18 12:45 Vancomycin Trough 22.1 ug/mL (5.0-10.0) H 01/22/18 13:54 Blood Type B POSITIVE 01/17/18 11:40 Antibody Screen Negative 01/17/18 11:40 - Hospital Course Hospital Course: Pt is for discharge today ,he is doing well, s/p surgery on left calf ulcer,he is off Iv antibiotics, he is for outpatient physical therapy and rehab Discharge Exam - Head Exam Head Exam: ATRAUMATIC, NORMAL INSPECTION, NORMOCEPHALIC - Eye Exam Eye Exam: EOMI, Normal appearance, PERRL Pupil Exam: NORMAL ACCOMODATION, PERRL - Respiratory Exam Respiratory Exam: Clear to PA & Lateral, NORMAL BREATHING PATTERN - Cardiovascular Exam Cardiovascular Exam: REGULAR RHYTHM, +S1, +S2 - GI/Abdominal Exam GI & Abdominal Exam: Normal Bowel Sounds - Neurological Exam Neurological exam: Alert, CN II-XII Intact, Normal Gait, Oriented x3, Reflexes Normal - Psychiatric Exam Psychiatric exam: Normal Affect, Normal Mood Discharge Plan - Discharge Medications Prescriptions: Warfarin [Coumadin] 10 mg PO 1800 #10 tab Linezolid [Zyvox] 600 mg PO BID #14 tab - Follow Up Plan Condition: GUARDED Disposition: HOME/ ROUTINE Instructions: Heart Healthy Diet, Heart Failure, Adult (DC), Wound Care (DC), Cellulitis (Skin Infection), Adult (DC), Linezolid, Debridement of a Wound or Burn (DC), Warfarin Additional Instructions: Please f/u with Dr. Laguna office next LEAVE DRESSING IT IS . NWB to lalit left foot continue medications per med. rec Please fiber picker medication from pharmacy Referrals: Estrada Albright MD [Staff Provider] - Casey Laguna DPM [Staff Provider] -
== END 2018-01-29 15:43 | disposition home or self-care (01) | DRG 264 ==
LOC: C.ER 08:25 → C.9E 13:36 → C.6T 23:21
PROVIDERS: ADMIT Internal Medicine; ATTEND Internal Medicine
PROC: 0HDLXZZ Extraction of Left Lower Leg Skin, External Approach (ICD-10-PCS; principal; 2018-01-22 07:45)
PROC: 0HRLXK3 Replacement of Left Lower Leg Skin with Nonautologous Tissue Substitute, Full Thickness, External Approach (ICD-10-PCS; 2018-01-26)
PROC: 0HDLXZZ Extraction of Left Lower Leg Skin, External Approach (ICD-10-PCS; 2018-01-26)
PROC: 02HV33Z Insertion of Infusion Device into Superior Vena Cava, Percutaneous Approach (ICD-10-PCS; 2018-01-26)
DX: I70.242 Atherosclerosis of native arteries of left leg with ulceration of calf (principal); E11.22 Type 2 diabetes mellitus with diabetic chronic kidney disease; E11.622 Type 2 diabetes mellitus with other skin ulcer; I82.409 Acute embolism and thrombosis of unspecified deep veins of unspecified lower extremity; L03.116 Cellulitis of left lower limb; Z68.43 Body mass index [BMI] 50.0-59.9, adult; I13.0 Hypertensive heart and chronic kidney disease with heart failure and stage 1 through stage 4 chronic kidney disease, or unspecified chronic kidney disease; I87.8 Other specified disorders of veins; L97.229 Non-pressure chronic ulcer of left calf with unspecified severity; N18.9 Chronic kidney disease, unspecified; I50.9 Heart failure, unspecified; J44.9 Chronic obstructive pulmonary disease, unspecified; I25.10 Atherosclerotic heart disease of native coronary artery without angina pectoris; F32.9 Major depressive disorder, single episode, unspecified; M79.7 Fibromyalgia; E03.9 Hypothyroidism, unspecified; Z86.711 Personal history of pulmonary embolism; E78.00 Pure hypercholesterolemia, unspecified; E05.90 Thyrotoxicosis, unspecified without thyrotoxic crisis or storm; Z96.653 Presence of artificial knee joint, bilateral; F41.1 Generalized anxiety disorder; G47.33 Obstructive sleep apnea (adult) (pediatric); E66.9 Obesity, unspecified; B96.5 Pseudomonas (aeruginosa) (mallei) (pseudomallei) as the cause of diseases classified elsewhere; Z79.4 Long term (current) use of insulin

== ENCOUNTER 2018-02-16 08:31 | Inpatient (IN) | payer MEDICARE ==
[2018-02-16 08:32] VITALS: BMI 54.8
--- NOTE | 2018-02-16 08:52 | C.PDOC ---
History Of Present Illness 57-year-old male, PMHx includes chronic leg ulcers, presents to the emergency department with complaints of worsening of wound to left lower extremity. Patient reports he noticed redness, and drainage to left lower leg that is associated with chills. Patient was seen by Dr. Laguna and sent to ED for further evaluation. He denies fever, weakness, or numbness. PMD Jose Ramon Dorado MD Podiatry Casey Laguna MD. Time Seen by Provider: 02/16/18 08:42 Chief Complaint (Nursing): Abnormal Skin Integrity History Per: Patient History/Exam Limitations: no limitations Past Medical History Reviewed: Historical Data, Nursing Documentation, Vital Signs Vital Signs: Last Vital Signs Temp 98 F 02/16/18 08:39 Pulse 88 02/16/18 12:49 Resp 16 02/16/18 12:49 BP 130/78 02/16/18 12:49 Pulse Ox 98 02/16/18 12:56 - Medical History PMH: Arthritis, Asthma, Back Problems, CAD, CHF, COPD, Depression, Diabetes, Deep Vein Thrombosis, Fibromyalgia, Fractures, HTN, Hypercholesterolemia, Hyperthyroidism, Hypothyroidism, Peripheral Edema (+3 pitting ble), Pneumonia, Pulmonary Embolism, Chronic Kidney Disease (required HD in 2016 briefly), Sleep Apnea, Chronic Pain Surgical History: - [facility] Procedures ASSISTANCE WITH RESPIRATORY VENTILATION, >96 HRS, CPAP (09/04/16) BATHING/SHOWERING TECHNIQUES TREATMENT (07/29/17) CENTRAL VENOUS CATHETER PLACEMENT WITH GUIDANCE (07/08/15) CLOSED ENDOSCOPIC BIOPSY OF LARGE INTESTINE (03/22/14) CONTIN POS AIRWAY PRESSURE [CPAP] (02/21/07) DERMAL REGENERATIVE GRAFT (06/15/15) DRESSING TECHNIQUES TREATMENT (07/29/17) DX ULTRASOUND-HEART (05/14/06) ENDOSC POLYPECTOMY OF LG INTEST (03/22/14) ENDOSCOPIC BRONCHIAL BX (09/22/04) ESOPHAGOGASTRODUODENOSCOPY [EGD] W/CLOSED BIOPSY (03/22/14) EXCIS DEBRIDE OF WOUND, INFECT, OR BURN (06/15/15) EXCISION OF LEFT LOWER LEG SKIN, EXTERNAL APPROACH (09/15/17) EXTRACTION OF LEFT LOWER LEG SKIN, EXTERNAL APPROACH (01/17/18) GAIT TRAINING/AMBULAT TREATMENT USING ASSIST EQUIPMENT (07/29/17) HETEROGRAFT TO SKIN (10/29/14) HOME MANAGEMENT TREATMENT (07/29/17) INJECT ANTIBIOTIC (05/29/06) INJECT ANTICOAGULANT (11/17/04) INJECT/INFUSE NEC (03/22/14) INSERTION OF INFUSION DEV INTO SUP VENA CAVA, PERC APPROACH (01/17/18) INSPECTION OF BLADDER, ENDO (06/22/16) INTRODUCE OF OTH THERAP SUBST INTO RESP TRACT, VIA OPENING (04/06/16) NEBULIZER THERAPY (09/18/14) NON-INVASIVE MECHANICAL VENTILATION (08/13/12) NONEXCIS DEBRID OF WOUND, INFECT, OR BURN (10/09/14) OCCUPATIONAL THERAPY (03/17/14) PERFORMANCE OF URINARY FILTRATION, MULTIPLE (09/04/16) PHYSICAL THERAPY NEC (03/17/14) REPLACE L LOW LEG SKIN W NONAUT SUB, FULL THICK, CREDIT PRODUCTS OFFICER (01/17/18) TRANSFUSE NONAUT FROZEN PLASMA IN PERIPH VEIN, PERC (09/04/16) VENOUS CATHETERIZATION NEC (04/25/15) Family History: States: No Known Family Hx - Social History Hx Tobacco Use: No Hx Alcohol Use: No Hx Substance Use: No - Immunization History Hx Tetanus Toxoid Vaccination: No Hx Influenza Vaccination: Yes Hx Pneumococcal Vaccination: Yes (3 yrs ago) Review Of Systems Constitutional: Negative for: Fever, Chills Respiratory: Negative for: Cough, Shortness of Breath Gastrointestinal: Negative for: Vomiting Musculoskeletal: Positive for: Leg Pain Skin: Negative for: Rash Neurological: Negative for: Weakness, Numbness Physical Exam - Physical Exam Appears: Non-toxic, No Acute Distress (moderate distress), Other (Morbidly obese ) Skin: Warm, Dry, No Rash, Other Head: Atraumatic, Normacephalic Eye(s): bilateral: Normal Inspection Nose: Normal Oral Mucosa: Moist Neck: Normal ROM Cardiovascular: Rhythm Regular, No Murmur Respiratory: Normal Breath Sounds, No Accessory Muscle Use Extremity: No Deformity, Other (B/L lower extremity: venous stasis, skin grafts. Left leg: posterior area is malodorous. Purulent and serous discharge. Right leg: superficial skin graft, no swelling discharge. ) Pulses: Left Dorsalis Pedis: Normal, Right Dorsalis Pedis: Normal Neurological/Psych: Oriented x3, Normal Speech Gait: Steady ED Course And Treatment - Laboratory Results Result Diagrams: 02/16/18 09:35 02/16/18 10:21 Lab Interpretation: No Acute Changes O2 Sat by Pulse Oximetry: 98 Pulse Ox Interpretation: Normal Medical Decision Making Medical Decision Making: Impression: 57 y/o M comes in with cellullitis left lower extremity, h.o skin gracts Prior Visits Notes and records from previous visits were reviewed. Patient seen in ED on 01/17 and admitted for cellulitis and infection of ulcers. Patient was discharged from hospital on 01/29/18 Plan: * Labs * Percocet, Oxycodone * Blood, urine and wound cultures * Urinalysis Progress: Labs reviewed with no acute changes contact PMD Dr Albright to discuss case and accepted patient to service. Disposition - Disposition Disposition: HOSPITALIZED Disposition Time: 11:15 Condition: STABLE - POA Present On Arrival: Surgical Site Infection - Clinical Impression Clinical Impression: Morbid obesity with BMI of 50.0-59.9, adult, Cellulitis - Scribe Statement The provider has reviewed the documentation as recorded by the Scribe (Airam Cantu) All medical record entries made by the Scribe were at my direction and personally dictated by me. I have reviewed the chart and agree that the record accurately reflects my personal performance of the history, physical exam, medical decision making, and the department course for this patient. I have also personally directed, reviewed, and agree with the discharge instructions and disposition. Decision To Admit - Pt Status Changed To: Hospital Disposition Of: Inpatient - Admit Certification Admit to Inpatient:: After my assessment, the patient will require hospitalization for at least two midnights. This is because of the severity of symptoms shown, intensity of services needed, and/or the medical risk in this patient being treated as an outpatient. - InPatient: Physician Admission Certification: I certify that this patient requires 2 or more midnights of care for the following reason:: Patient with infected leg wounds with discharge, needs admission ID consult - . Bed Request Type: Regular Admitting Physician: Estrada Albright Patient Diagnosis: Cellulitis, Morbid obesity with BMI of 50.0-59.9, adult
[2018-02-16] MEDS ORDERED: Oxycodone/Acetaminophen 5/325 mg Tab PO STA (08:53)
[2018-02-16] MEDS ORDERED: oxyCODONE 20 mg ER Tab (oxyCONTIN) PO STA (08:54)
[2018-02-16] MEDS ORDERED: Oxycodone/Acetaminophen 5/325 mg Tab ONE (09:12)
[2018-02-16] MEDS ORDERED: oxyCODONE 40 mg ER Tab (oxyCONTIN) PO ONE (09:12)
[2018-02-16 09:41] LABS: BASO # 0.1 K/uL (0.0-0.2); BASO % 0.8 % (0.0-2.0); EOS # 0.2 K/uL (0.0-0.7); EOS % 3.2 % (0.0-4.0); HEMOGLOBIN 11.3 g/dL (12.0-18.0); LYMPH % 13.6 % (20.0-40.0); MEAN CELL VOLUME 78.8 fL (80.0-94.0); MEAN CORPUSCULAR HEMOGLOBIN 25.7 pg (27.0-31.0); MEAN CORPUSCULAR HGB CONC 32.7 g/dL (33.0-37.0); MEAN PLATELET VOLUME 9.4 fL (7.2-11.7); MONO # 0.4 K/uL (0.0-0.8); MONO % 5.7 % (0.0-10.0); NEUT # 5.7 K/uL (1.8-7.0); NEUT % 76.7 % (50.0-75.0); RBC 4.38 Mil/uL (4.40-5.90); RED CELL DISTRIBUTION WIDTH 17.2 % (11.5-14.5); WHITE BLOOD COUNT 7.4 K/uL (4.8-10.8)
[2018-02-16 10:40] LABS: ALB/GLOB RATIO 0.9 (1.0-2.1); ALBUMIN 3.9 g/dL (3.5-5.0); ALT/SGPT 30 U/L (21-72); AST/SGOT 28 U/L (17-59); BLOOD UREA NITROGEN 10 mg/dL (9-20); CALCIUM 8.7 mg/dl (8.6-10.4); GFR AFRICAN-AMERICAN > 60; GFR NON-AFRICAN AMERICAN > 60
[2018-02-16 10:46] LABS: INR 1.5; PROTHROMBIN TIME 16.6 SECONDS (9.7-12.2)
[2018-02-16] MEDS ORDERED: oxyCODONE 5 mg Immediate Release Tab PO PRN (12:18)
[2018-02-16] MEDS ORDERED: Clindamycin 300 MG in Sodium Chloride 0.9% 50 ML IVPB SCH (12:30)
--- NOTE | 2018-02-16 12:30 | CP.PCM.CON ---
History of Present Illness - History of Present Illness History of Present Illness: 57-year-old male, PMHx includes chronic leg ulcers, presents to the emergency department with complaints of worsening of wound to left lower extremity. Patient reports he noticed redness, and drainage to left lower leg that is associated with chills. Patient was seen by Dr. Laguna and sent to ED for further evaluation. He denies fever, weakness, or numbness. - Medical History PMH: Arthritis, Asthma, Back Problems, CAD, CHF, COPD, Depression, Diabetes, Deep Vein Thrombosis, Fibromyalgia, Fractures, HTN, Hypercholesterolemia, Hyperthyroidism, Hypothyroidism, Peripheral Edema (+3 pitting ble), Pneumonia, Pulmonary Embolism, Chronic Kidney Disease (required HD in 2016 briefly), Sleep Apnea, Chronic Pain Surgical History: - [facility] Procedures ASSISTANCE WITH RESPIRATORY VENTILATION, >96 HRS, CPAP (09/04/16) BATHING/SHOWERING TECHNIQUES TREATMENT (07/29/17) CENTRAL VENOUS CATHETER PLACEMENT WITH GUIDANCE (07/08/15) CLOSED ENDOSCOPIC BIOPSY OF LARGE INTESTINE (03/22/14) CONTIN POS AIRWAY PRESSURE [CPAP] (02/21/07) DERMAL REGENERATIVE GRAFT (06/15/15) DRESSING TECHNIQUES TREATMENT (07/29/17) DX ULTRASOUND-HEART (05/14/06) ENDOSC POLYPECTOMY OF LG INTEST (03/22/14) ENDOSCOPIC BRONCHIAL BX (09/22/04) ESOPHAGOGASTRODUODENOSCOPY [EGD] W/CLOSED BIOPSY (03/22/14) EXCIS DEBRIDE OF WOUND, INFECT, OR BURN (06/15/15) EXCISION OF LEFT LOWER LEG SKIN, EXTERNAL APPROACH (09/15/17) EXTRACTION OF LEFT LOWER LEG SKIN, EXTERNAL APPROACH (01/17/18) GAIT TRAINING/AMBULAT TREATMENT USING ASSIST EQUIPMENT (07/29/17) HETEROGRAFT TO SKIN (10/29/14) HOME MANAGEMENT TREATMENT (07/29/17) INJECT ANTIBIOTIC (05/29/06) INJECT ANTICOAGULANT (11/17/04) INJECT/INFUSE NEC (03/22/14) INSERTION OF INFUSION DEV INTO SUP VENA CAVA, PERC APPROACH (01/17/18) INSPECTION OF BLADDER, ENDO (06/22/16) INTRODUCE OF OTH THERAP SUBST INTO RESP TRACT, VIA OPENING (04/06/16) NEBULIZER THERAPY (09/18/14) NON-INVASIVE MECHANICAL VENTILATION (08/13/12) NONEXCIS DEBRID OF WOUND, INFECT, OR BURN (10/09/14) OCCUPATIONAL THERAPY (03/17/14) PERFORMANCE OF URINARY FILTRATION, MULTIPLE (09/04/16) PHYSICAL THERAPY NEC (03/17/14) REPLACE L LOW LEG SKIN W NONAUT SUB, FULL THICK, CATEGORY DIRECTOR (01/17/18) TRANSFUSE NONAUT FROZEN PLASMA IN PERIPH VEIN, PERC (09/04/16) VENOUS CATHETERIZATION NEC (04/25/15) Review of Systems - Constitutional Constitutional: As Per HPI, Anorexia, Chills, Fever, Malaise - EENT Eyes: absent: As Per HPI, Blind Spots, Blurred Vision, Change in Vision, Decreased Night Vision, Diplopia, Discharge, Dry Eye, Exophthalmos, Floaters, Irritation, Itchy Eyes, Loss of Peripheral Vision, Pain, Photophobia, Requires Corrective Lenses, Sees Flashes, Spots in Vision, Tunnel Vision, Other Visual Disturbances, Loss of Vision, Other Ears: absent: As Per HPI, Decreased Hearing, Ear Discharge, Ear Pain, Tinnitus, Abnormal Hearing, Disequilibrium, Dizziness, Other Nose/Mouth/Throat: absent: As Per HPI, Epistaxis, Nasal Congestion, Nasal Discharge, Nasal Obstruction, Nasal Trauma, Nose Pain, Post Nasal Drip, Sinus Pain, Sinus Pressure, Bleeding Gums, Change in Voice, Dental Pain, Dry Mouth, Dysphagia, Halitosis, Hoarsness, Lip Swelling, Mouth Lesions, Mouth Pain, Odynophagia, Sore Throat, Throat Swelling, Tongue Swelling, Facial Pain, Neck Pain, Neck Mass, Other - Cardiovascular Cardiovascular: As Per HPI - Respiratory Respiratory: As Per HPI, Cough, Dyspnea. absent: Hemoptysis - Gastrointestinal Gastrointestinal: absent: As Per HPI, Abdominal Pain, Belching, Bloating, Change in Bowel Habits, Change in Stool Character, Coffee Ground Emesis, Constipation, Cramping, Diarrhea, Dyspepsia, Dysphagia, Early Satiety, Excessive Flatus, Fecal Incontinence, Heartburn, Hematemesis, Hematochezia, Loose Stools, Melena, Nausea, Odynophagia, Temesmus, Vomiting, Other - Genitourinary Genitourinary: absent: As Per HPI, Change in Urinary Stream, Difficulty Urinating, Dysuria, Flank Pain, Hematuria, Pyuria, Nocturia, Urinary Incontinence, Urinary Frequency, Urinary Hesitance, Urinary Urgency, Voiding Freq/Small Amts, Freq UTI, Hx Renal/Bladder Calculi, Hx /Renal Surgery, Bladder Distension, Other - Musculoskeletal Musculoskeletal: As Per HPI - Integumentary Integumentary: As Per HPI, Skin Pain, Wounds - Neurological Neurological: absent: As Per HPI, Abnormal Gait, Abnormal Hearing, Abnormal Movements, Abnormal Speech, Behavioral Changes, Burning Sensations, Confusion, Convulsions, Disequilibrium, Dizziness, Numbness, Focal Weakness, Frequent Falls , Headaches, Lack of Coordination, Loss of Vision, Memory Loss, Paresthesias, Radicular Pain, Restless Legs, Sensory Deficit, Syncope, Tingling, Tremor, Vertigo, Weakness, Other Visual Disturbances, Other - Psychiatric Psychiatric: absent: As Per HPI, Abnormal Sleep Pattern, Anhedonia, Anxiety, Auditory Hallucinations, Behavioral Changes, Change in Appetite, Change in Libido, Confusion, Depression, Difficulty Concentrating, Hallucinations, Homicidal Ideation, Hopelessness, Irritability, Memory Loss, Mood Swings, Panic Attacks, Paranoia, Suicidal Ideation, Visual Hallucinations, Tactile Hallucinations, Other - Endocrine Endocrine: absent: As Per HPI, Change in Body Appearance, Change in Libido, Cold Intolorance, Deepening of Voice, Excessive Sweating, Fatigue, Flushing, Heat Intolorance, Increase in Ring/Shoe/Hat Size, Palpitations, Polydipsia, Polyphagia, Polyuria, Other - Hematologic/Lymphatic Hematologic: absent: As Per HPI, Easy Bleeding, Easy Bruising, Lymphadenopathy, Other Past Patient History - Infectious Disease Hx of Infectious Diseases: None - Tetanus Immunizations Tetanus Immunization: Unknown - Past Medical History & Family History Past Medical History?: Yes - Past Social History Smoking Status: Never Smoked - CARDIAC Hx Congestive Heart Failure: Yes Hx Hypercholesterolemia: Yes Hx Hypertension: Yes Hx Peripheral Edema: Yes (+3 pitting ble) - PULMONARY Hx Asthma: Yes Hx Chronic Obstructive Pulmonary Disease (COPD): Yes Hx Pneumonia: Yes Hx Pulmonary Embolism: Yes Hx Sleep Apnea: Yes - NEUROLOGICAL Hx Neurological Disorder: No - HEENT Hx HEENT Problems: No - RENAL Hx Chronic Kidney Disease: Yes (required HD in 2016 briefly) - ENDOCRINE/METABOLIC Hx Hyperthyroidism: Yes Hx Hypothyroidism: Yes - HEMATOLOGICAL/ONCOLOGICAL Hx Blood Disorders: No - INTEGUMENTARY Hx Dermatological Problems: Yes Other/Comment: both leggs discolored - MUSCULOSKELETAL/RHEUMATOLOGICAL Hx Arthritis: Yes Hx Fractures: Yes - GASTROINTESTINAL Hx Gastrointestinal Disorders: (reflux obese) - GENITOURINARY/GYNECOLOGICAL Hx Reproductive Disorders: No - PSYCHIATRIC Hx Depression: Yes Hx Substance Use: No - SURGICAL HISTORY Hx Surgeries: Yes Hx Orthopedic Surgery: Yes (bilateral knee replacement) Other/Comment: total left knee - 1998. right ankle screws - 1987. right hip shyam - 1982 - ANESTHESIA Hx Anesthesia: Yes Hx Anesthesia Reactions: No Hx Malignant Hyperthermia: No Meds Allergies/Adverse Reactions: Allergies Allergy/AdvReac Type Severity Reaction Status Date / Time No Known Allergies Allergy Verified 01/17/18 08:44 - Medications Medications: Current Medications Acetaminophen (Tylenol 325mg Tab) 650 mg PO Q6 PRN PRN Reason: Headache Docusate Sodium (Colace) 100 mg PO DAILY [facility] Furosemide (Lasix) 40 mg PO BID [facility] Hydralazine HCl (Apresoline) 25 mg PO Q8 [facility] Clindamycin Phosphate 300 mg/ (Sodium Chloride) 52 mls @ 100 mls/hr IVPB Q6H [facility] PRN Reason: Protocol Insulin Human Regular (Novolin R) 0 unit SC ACHS [facility] PRN Reason: Protocol Levothyroxine Sodium (Synthroid) 75 mcg PO DAILY [facility] Metformin HCl (Glucophage Xr) 500 mg PO BID [facility] Montelukast Sodium (Singulair) 10 mg PO HS [facility] Oxycodone HCl (Oxycodone Immediate Release Tab) 15 mg PO Q4H PRN PRN Reason: Pain, moderate (4-7) Oxycodone HCl (Oxycontin Extended Release Tab) 80 mg PO Q8 [facility] Pantoprazole Sodium (Protonix Ec Tab) 40 mg PO DAILY [facility] Potassium Chloride (K-Dur 20 Meq Er Tab) 20 meq PO DAILY [facility] Fluticasone/Salmeterol (Advair Diskus 250/50) 1 puff IH Q12 [facility] Sitagliptin Phosphate (Januvia) 50 mg PO DAILY [facility] Warfarin Sodium (Coumadin) 10 mg PO 1800 [facility] Stop: 02/16/18 18:01 Physical Exam - Constitutional Appears: Non-toxic, Chronically Ill - Head Exam Head Exam: ATRAUMATIC, NORMAL INSPECTION, NORMOCEPHALIC - Eye Exam Eye Exam: EOMI, PERRL. absent: Scleral icterus Pupil Exam: PERRL - ENT Exam ENT Exam: Mucous Membranes Dry, Normal External Ear Exam - Neck Exam Neck exam: Negative for: Lymphadenopathy, Thyromegaly - Respiratory Exam Respiratory Exam: Decreased Breath Sounds, Prolonged Expiratory Phase, Rhonchi - Cardiovascular Exam Cardiovascular Exam: REGULAR RHYTHM, +S1, +S2 - GI/Abdominal Exam GI & Abdominal Exam: Diminished Bowel Sounds, Soft. absent: Tenderness - Rectal Exam Rectal Exam: Deferred - Exam Exam: NORMAL INSPECTION - Extremities Exam Extremities exam: Positive for: calf tenderness, normal capillary refill, tenderness, pedal pulses present. Negative for: joint swelling, normal inspection, pedal edema Additional comments: ulcer LLE with cellulitis - Back Exam Back exam: absent: CVA tenderness (L), CVA tenderness (R), paraspinal tenderness - Neurological Exam Neurological exam: Alert, CN II-XII Intact, Oriented x3, Reflexes Normal - Psychiatric Exam Psychiatric exam: Normal Mood - Skin Skin Exam: Dry, Intact Results - Vital Signs Recent Vital Signs: Last Vital Signs Temp 98 F 02/16/18 08:39 Pulse 68 02/16/18 08:39 Resp 18 02/16/18 08:39 BP 145/89 02/16/18 08:39 Pulse Ox 98 02/16/18 09:47 - Labs Result Diagrams: 02/18/18 11:10 02/18/18 11:10 Labs: Laboratory Results - last 24 hr 02/16/18 02/16/18 02/16/18 09:35 10:21 10:26 WBC 7.4 RBC 4.38 L Hgb 11.3 L Hct 34.5 L MCV 78.8 L MCH 25.7 L MCHC 32.7 L RDW 17.2 H Plt Count 177 MPV 9.4 Neut % (Auto) 76.7 H Lymph % (Auto) 13.6 L [place] % (Auto) 5.7 Eos % (Auto) 3.2 Baso % (Auto) 0.8 Neut # (Auto) 5.7 Lymph # (Auto) 1.0 [place] # (Auto) 0.4 Eos # (Auto) 0.2 Baso # (Auto) 0.1 PT 16.6 H INR 1.5 APTT 31 Sodium 140 Potassium 3.7 Chloride 93 L Carbon Dioxide 32 H Anion Gap 18 BUN 10 Creatinine 1.0 Est GFR ( Amer) > 60 Est GFR (Non-Af Amer) > 60 Random Glucose 113 H Calcium 8.7 Total Bilirubin 0.7 AST 28 ALT 30 Alkaline Phosphatase 135 H Total Protein 8.1 Albumin 3.9 Globulin 4.3 H Albumin/Globulin Ratio 0.9 L Assessment & Plan (1) Cellulitis Status: Acute (2) Morbid obesity with BMI of 50.0-59.9, adult Status: Chronic (3) Leg ulcer Status: Acute (4) MDD (major depressive disorder) Status: Acute (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 Status: Acute (6) Morbid obesity Status: Acute (7) Obstructive sleep apnea Status: Acute (8) PVD (peripheral vascular disease) Status: Acute (9) Stasis ulcer of right lower extremity Status: Acute (10) Diabetes mellitus Status: Chronic Priority: Medium (11) Hyperglycemia Status: Chronic (12) Hypertension Status: Chronic Priority: Low (13) Hypothyroidism Status: Chronic Priority: Medium (14) Leg ulcer, left Status: Chronic (15) Leg wound, left Status: Chronic (16) Low back pain Status: Chronic (17) Obstructive apnea Status: Chronic (18) Osteoarthritis Status: Chronic Priority: Medium - Assessment and Plan (Free Text) Assessment: await cultures may need OR / debridement IV rx in progress
[2018-02-16] MEDS: Clindamycin 300 MG in Sodium Chloride 0.9% 100 ML IVPB SCH ×2 (13:57→18:07)
[2018-02-16] MEDS ORDERED: oxyCODONE 40 mg ER Tab (oxyCONTIN) PO SCH (14:00)
[2018-02-16] MEDS: Oxycodone/Acetaminophen 5/325 mg Tab PO PRN ×2 (15:22→19:49)
[2018-02-16] MEDS: (Novolin R) Insulin Human Regular 100 units/ml vial SC SCH ×2 (17:15→22:29)
[2018-02-16] MEDS ORDERED: oxyCODONE 80 mg ER Tab (oxyCONTIN) PO PRN (19:51)
[2018-02-16] MEDS: oxyCODONE 80 mg ER Tab (oxyCONTIN) PO SCH (21:17)
[2018-02-17] MEDS ORDERED: oxyCODONE 80 mg ER Tab (oxyCONTIN) PO SCH
[2018-02-17] MEDS: Oxycodone/Acetaminophen 5/325 mg Tab PO PRN ×6 (00:05→23:49)
[2018-02-17] MEDS: Clindamycin 300 MG in Sodium Chloride 0.9% 100 ML IVPB SCH ×4 (00:06→19:20)
[2018-02-17] MEDS: oxyCODONE 80 mg ER Tab (oxyCONTIN) PO SCH ×4 (00:06→18:05)
--- NOTE | 2018-02-17 02:19 | CP.PCM.HP ---
History of Present Illness - History of Present Illness History of Present Illness: 57-year-old male, PMHx includes chronic leg ulcers, presents to the emergency department with complaints of worsening of wound to left lower extremity. Patient reports he noticed redness, and drainage to left lower leg that is associated with chills. Patient was seen by Dr. Laguna and sent to ED for further evaluation. He denies fever, weakness, or numbness. Present on Admission - Present on Admission Any Indicators Present on Admission: Yes Past Patient History - Infectious Disease Hx of Infectious Diseases: None - Tetanus Immunizations Tetanus Immunization: Unknown - Past Medical History & Family History Past Medical History?: Yes - Past Social History Smoking Status: Never Smoked - CARDIAC Hx Congestive Heart Failure: Yes Hx Hypercholesterolemia: Yes Hx Hypertension: Yes Hx Peripheral Edema: Yes (+3 pitting ble) - PULMONARY Hx Asthma: Yes Hx Chronic Obstructive Pulmonary Disease (COPD): Yes Hx Pneumonia: Yes Hx Pulmonary Embolism: Yes Hx Sleep Apnea: Yes - NEUROLOGICAL Hx Neurological Disorder: No - HEENT Hx HEENT Problems: No - RENAL Hx Chronic Kidney Disease: Yes (required HD in 2016 briefly) - ENDOCRINE/METABOLIC Hx Hyperthyroidism: Yes Hx Hypothyroidism: Yes - HEMATOLOGICAL/ONCOLOGICAL Hx Blood Disorders: No - INTEGUMENTARY Hx Dermatological Problems: Yes Other/Comment: both leggs discolored - MUSCULOSKELETAL/RHEUMATOLOGICAL Hx Arthritis: Yes Hx Falls: Yes Hx Fractures: Yes - GASTROINTESTINAL Hx Gastrointestinal Disorders: Yes (reflux obese) Hx Gastroesophageal Reflux: Yes - GENITOURINARY/GYNECOLOGICAL Hx Reproductive Disorders: No - PSYCHIATRIC Hx Substance Use: No - SURGICAL HISTORY Hx Surgeries: Yes Hx Orthopedic Surgery: Yes (bilateral knee replacement) Other/Comment: total left knee - 1998. right ankle screws - 1987. right hip shyam - 1982 - ANESTHESIA Hx Anesthesia: Yes Hx Anesthesia Reactions: No Hx Malignant Hyperthermia: No Has any member of the family had a problem w/ anesthesia?: No Meds Allergies/Adverse Reactions: Allergies Allergy/AdvReac Type Severity Reaction Status Date / Time No Known Allergies Allergy Verified 01/17/18 08:44 Results - Vital Signs Recent Vital Signs: Last Vital Signs Temp 98.0 F 02/17/18 00:00 Pulse 69 02/17/18 00:00 Resp 20 02/17/18 00:00 BP 128/79 02/17/18 00:00 Pulse Ox 97 02/17/18 00:00 - Labs Result Diagrams: 02/17/18 07:03 02/17/18 07:03 Labs: Laboratory Results - last 24 hr 02/16/18 02/16/18 02/16/18 09:35 10:21 10:26 WBC 7.4 RBC 4.38 L Hgb 11.3 L Hct 34.5 L MCV 78.8 L MCH 25.7 L MCHC 32.7 L RDW 17.2 H Plt Count 177 MPV 9.4 Neut % (Auto) 76.7 H Lymph % (Auto) 13.6 L [place] % (Auto) 5.7 Eos % (Auto) 3.2 Baso % (Auto) 0.8 Neut # (Auto) 5.7 Lymph # (Auto) 1.0 [place] # (Auto) 0.4 Eos # (Auto) 0.2 Baso # (Auto) 0.1 PT 16.6 H INR 1.5 APTT 31 Sodium 140 Potassium 3.7 Chloride 93 L Carbon Dioxide 32 H Anion Gap 18 BUN 10 Creatinine 1.0 Est GFR ( Amer) > 60 Est GFR (Non-Af Amer) > 60 POC Glucose (mg/dL) Random Glucose 113 H Calcium 8.7 Total Bilirubin 0.7 AST 28 ALT 30 Alkaline Phosphatase 135 H Total Protein 8.1 Albumin 3.9 Globulin 4.3 H Albumin/Globulin Ratio 0.9 L 02/16/18 02/16/18 17:08 20:59 WBC RBC Hgb Hct MCV MCH MCHC RDW Plt Count MPV Neut % (Auto) Lymph % (Auto) [place] % (Auto) Eos % (Auto) Baso % (Auto) Neut # (Auto) Lymph # (Auto) [place] # (Auto) Eos # (Auto) Baso # (Auto) PT INR APTT Sodium Potassium Chloride Carbon Dioxide Anion Gap BUN Creatinine Est GFR ( Amer) Est GFR (Non-Af Amer) POC Glucose (mg/dL) 127 H 124 H Random Glucose Calcium Total Bilirubin AST ALT Alkaline Phosphatase Total Protein Albumin Globulin Albumin/Globulin Ratio Assessment & Plan (1) Cellulitis Assessment and Plan: Assessment: 57 year old male seen at bedside regarding left leg chronic nonhealing wounds Plan: patient evaluated and chart reviewed i labs and vitals reviewed; afebrile, WBC 4.9 f/u wound cx applied telfa, DSD to LLE cont. abx as per ID podiatry follow up Status: Acute (2) Morbid obesity with BMI of 50.0-59.9, adult Status: Chronic (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
[2018-02-17] MEDS: Levothyroxine 75 MCG TAB PO SCH (06:37)
[2018-02-17 07:35] LABS: BASO % 0.9 % (0.0-2.0); EOS # 0.3 K/uL (0.0-0.7); EOS % 5.4 % (0.0-4.0); HEMOGLOBIN 10.7 g/dL (12.0-18.0); LYMPH # 1.3 K/uL (1.0-4.3); LYMPH % 26.6 % (20.0-40.0); MEAN CELL VOLUME 78.7 fL (80.0-94.0); MEAN PLATELET VOLUME 9.9 fL (7.2-11.7); MONO # 0.4 K/uL (0.0-0.8); MONO % 9.1 % (0.0-10.0); NEUT # 2.9 K/uL (1.8-7.0); RBC 4.12 Mil/uL (4.40-5.90); RED CELL DISTRIBUTION WIDTH 17.1 % (11.5-14.5); WHITE BLOOD COUNT 4.9 K/uL (4.8-10.8)
[2018-02-17 07:42] LABS: ALB/GLOB RATIO 0.9 (1.0-2.1); ALBUMIN 3.4 g/dL (3.5-5.0); ALT/SGPT 17 U/L (21-72); AST/SGOT 18 U/L (17-59); BLOOD UREA NITROGEN 15 mg/dL (9-20); CALCIUM 8.5 mg/dl (8.6-10.4); GFR AFRICAN-AMERICAN > 60; GFR NON-AFRICAN AMERICAN > 60
[2018-02-17] MEDS: (Novolin R) Insulin Human Regular 100 units/ml vial SC SCH ×4 (07:46→21:35)
[2018-02-17] MEDS: Fluticasone-Salmeterol 250-50mcg Diskus IH SCH ×2 (08:45→19:43)
[2018-02-17] MEDS ORDERED: Pantoprazole 40 mg EC Tab PO SCH (10:00)
[2018-02-17] MEDS: Potassium Chloride 20 mEq ER Tab PO SCH (10:13)
--- NOTE | 2018-02-17 10:17 | CP.PCM.CON ---
History of Present Illness - History of Present Illness History of Present Illness: 57-year-old male, PMHx includes chronic leg ulcers, well known to podiatry, seen at bedside regarding chronic nonhealing wound to left lower extremity. Patient reports he noticed redness, and drainage to left lower leg that is associated with chills. Patient was seen by Dr. Laguna in the wound care center. He denies fever, weakness, or numbness. Patient denies any other pedal complaints at this time. Review of Systems - Constitutional Constitutional: As Per HPI Past Patient History - Infectious Disease Hx of Infectious Diseases: None - Tetanus Immunizations Tetanus Immunization: Unknown - Past Medical History & Family History Past Medical History?: Yes - Past Social History Smoking Status: Never Smoked - CARDIAC Hx Congestive Heart Failure: Yes Hx Hypercholesterolemia: Yes Hx Hypertension: Yes Hx Peripheral Edema: Yes (+3 pitting ble) - PULMONARY Hx Asthma: Yes Hx Chronic Obstructive Pulmonary Disease (COPD): Yes Hx Pneumonia: Yes Hx Pulmonary Embolism: Yes Hx Sleep Apnea: Yes - NEUROLOGICAL Hx Neurological Disorder: No - HEENT Hx HEENT Problems: No - RENAL Hx Chronic Kidney Disease: Yes (required HD in 2016 briefly) - ENDOCRINE/METABOLIC Hx Hyperthyroidism: Yes Hx Hypothyroidism: Yes - HEMATOLOGICAL/ONCOLOGICAL Hx Blood Disorders: No - INTEGUMENTARY Hx Dermatological Problems: Yes Other/Comment: both leggs discolored - MUSCULOSKELETAL/RHEUMATOLOGICAL Hx Arthritis: Yes Hx Falls: Yes Hx Fractures: Yes - GASTROINTESTINAL Hx Gastrointestinal Disorders: Yes (reflux obese) Hx Gastroesophageal Reflux: Yes - GENITOURINARY/GYNECOLOGICAL Hx Reproductive Disorders: No - PSYCHIATRIC Hx Substance Use: No - SURGICAL HISTORY Hx Surgeries: Yes Hx Orthopedic Surgery: Yes (bilateral knee replacement) Other/Comment: total left knee - 1998. right ankle screws - 1987. right hip shyam - 1982 - ANESTHESIA Hx Anesthesia: Yes Hx Anesthesia Reactions: No Hx Malignant Hyperthermia: No Has any member of the family had a problem w/ anesthesia?: No Meds Allergies/Adverse Reactions: Allergies Allergy/AdvReac Type Severity Reaction Status Date / Time No Known Allergies Allergy Verified 01/17/18 08:44 - Medications Medications: Current Medications Acetaminophen (Tylenol 325mg Tab) 650 mg PO Q6 PRN PRN Reason: Headache Docusate Sodium (Colace) 100 mg PO DAILY [facility] Last Admin: 02/17/18 10:13 Dose: 100 mg Furosemide (Lasix) 40 mg PO BID [facility] Last Admin: 02/16/18 18:09 Dose: 40 mg Hydralazine HCl (Apresoline) 25 mg PO Q8 [facility] Last Admin: 02/17/18 06:14 Dose: 25 mg Clindamycin Phosphate 300 mg/ (Sodium Chloride) 102 mls @ 204 mls/hr IVPB Q6H [facility] PRN Reason: Protocol Last Admin: 02/17/18 06:14 Dose: 204 mls/hr Insulin Human Regular (Novolin R) 0 unit SC ACHS [facility] PRN Reason: Protocol Last Admin: 02/17/18 07:46 Dose: Not Given Levothyroxine Sodium (Synthroid) 75 mcg PO ACB [facility] Last Admin: 02/17/18 06:37 Dose: 75 mcg Metformin HCl (Glucophage Xr) 500 mg PO BID [facility] Last Admin: 02/17/18 10:13 Dose: 500 mg Montelukast Sodium (Singulair) 10 mg PO HS [facility] Last Admin: 02/16/18 21:18 Dose: 10 mg Oxycodone HCl (Oxycontin Extended Release Tab) 80 mg PO Q6 [facility] Last Admin: 02/17/18 06:14 Dose: 80 mg Oxycodone/Acetaminophen (Percocet 5/325 Mg Tab) 2 tab PO Q4H PRN PRN Reason: Pain, moderate (4-7) Last Admin: 02/17/18 08:32 Dose: 2 tab Pantoprazole Sodium (Protonix Ec Tab) 40 mg PO DAILY [facility] Last Admin: 02/17/18 10:13 Dose: 40 mg Potassium Chloride (K-Dur 20 Meq Er Tab) 20 meq PO DAILY [facility] Last Admin: 02/17/18 10:13 Dose: 20 meq Fluticasone/Salmeterol (Advair Diskus 250/50) 1 puff IH RQ12 [facility] Sitagliptin Phosphate (Januvia) 50 mg PO DAILY [facility] Physical Exam - Constitutional Appears: Well, Non-toxic, No Acute Distress - Extremities Exam Additional comments: Left lower extremity focused exam: strikethough noted to dressings Vasc: Non-palpable pedal pulses due to edema b/l, TG warm to warm, CFT < 3 sec to all digits, +1 pitting edema Derm: +1 pitting edema to legs bilateral, localized erythema to mid-calf bilateral. Left: multiple open ulcerations noted to the to Anterior and lateral and posterior aspect of the left leg circumferentally, with active serosanguinous drainage, wound base is granular/fibrotic base , with shital-wound macerations. Mild amount of purulence, moderate amount of serosanginous drainage noted, moderate malodor noted. Neuro: sensation grossly diminished MUSC: pain on palpation of posterior and medial legs b/l - Neurological Exam Neurological exam: Alert, Oriented x3 - Psychiatric Exam Psychiatric exam: Normal Affect, Normal Mood Results - Vital Signs Recent Vital Signs: Last Vital Signs Temp 97.8 F 02/17/18 07:00 Pulse 58 L 02/17/18 07:00 Resp 20 02/17/18 07:00 BP 113/71 02/17/18 07:00 Pulse Ox 97 02/17/18 07:00 - Labs Result Diagrams: 02/17/18 07:03 02/17/18 07:03 Labs: Laboratory Results - last 24 hr 02/16/18 02/16/18 02/16/18 10:21 10:26 17:08 WBC RBC Hgb Hct MCV MCH MCHC RDW Plt Count MPV Neut % (Auto) Lymph % (Auto) [place] % (Auto) Eos % (Auto) Baso % (Auto) Neut # (Auto) Lymph # (Auto) [place] # (Auto) Eos # (Auto) Baso # (Auto) PT 16.6 H INR 1.5 APTT 31 Sodium 140 Potassium 3.7 Chloride 93 L Carbon Dioxide 32 H Anion Gap 18 BUN 10 Creatinine 1.0 Est GFR ( Amer) > 60 Est GFR (Non-Af Amer) > 60 POC Glucose (mg/dL) 127 H Random Glucose 113 H Calcium 8.7 Total Bilirubin 0.7 AST 28 ALT 30 Alkaline Phosphatase 135 H Total Protein 8.1 Albumin 3.9 Globulin 4.3 H Albumin/Globulin Ratio 0.9 L 02/16/18 02/17/18 02/17/18 20:59 06:13 07:03 WBC 4.9 RBC 4.12 L Hgb 10.7 L Hct 32.4 L MCV 78.7 L MCH 26.0 L MCHC 33.0 RDW 17.1 H Plt Count 154 MPV 9.9 Neut % (Auto) 58.0 Lymph % (Auto) 26.6 [place] % (Auto) 9.1 Eos % (Auto) 5.4 H Baso % (Auto) 0.9 Neut # (Auto) 2.9 Lymph # (Auto) 1.3 [place] # (Auto) 0.4 Eos # (Auto) 0.3 Baso # (Auto) 0.0 PT INR APTT Sodium Potassium Chloride Carbon Dioxide Anion Gap BUN Creatinine Est GFR ( Amer) Est GFR (Non-Af Amer) POC Glucose (mg/dL) 124 H 99 Random Glucose Calcium Total Bilirubin AST ALT Alkaline Phosphatase Total Protein Albumin Globulin Albumin/Globulin Ratio 02/17/18 07:03 WBC RBC Hgb Hct MCV MCH MCHC RDW Plt Count MPV Neut % (Auto) Lymph % (Auto) [place] % (Auto) Eos % (Auto) Baso % (Auto) Neut # (Auto) Lymph # (Auto) [place] # (Auto) Eos # (Auto) Baso # (Auto) PT INR APTT Sodium 141 Potassium 3.9 Chloride 101 Carbon Dioxide 30 Anion Gap 14 BUN 15 Creatinine 1.2 Est GFR ( Amer) > 60 Est GFR (Non-Af Amer) > 60 POC Glucose (mg/dL) Random Glucose 97 Calcium 8.5 L Total Bilirubin 0.3 AST 18 ALT 17 L D Alkaline Phosphatase 123 Total Protein 7.2 Albumin 3.4 L Globulin 3.8 Albumin/Globulin Ratio 0.9 L Assessment & Plan - Assessment and Plan (Free Text) Assessment: 57 year old male seen at bedside regarding left leg chronic nonhealing wounds Plan: patient evaluated and chart reviewed discussed in detail with attending Dr. Laguna labs and vitals reviewed; afebrile, WBC 4.9 f/u wound cx applied telfa, DSD to LLE cont. abx as per ID podiatry will continue to follow while patient remains in house
--- NOTE | 2018-02-17 22:42 | CP.PCM.PN ---
Subjective - Date & Time of Evaluation Date of Evaluation: 02/17/18 Time of Evaluation: 19:00 Objective - Vital Signs/Intake and Output Vital Signs (last 24 hours): Temp Pulse Resp BP Pulse Ox 97.8 F 70 20 134/81 96 02/17/18 15:00 02/17/18 19:43 02/17/18 15:00 02/17/18 17:27 02/17/18 15:00 Intake and Output: 02/17/18 02/18/18 18:59 06:59 Intake Total 552 Output Total 1200 Balance -648 - Medications Medications: Current Medications Acetaminophen (Tylenol 325mg Tab) 650 mg PO Q6 PRN PRN Reason: Headache Docusate Sodium (Colace) 100 mg PO DAILY [facility] Last Admin: 02/17/18 10:13 Dose: 100 mg Furosemide (Lasix) 40 mg PO BID [facility] Last Admin: 02/17/18 17:27 Dose: 40 mg Hydralazine HCl (Apresoline) 25 mg PO Q8 [facility] Last Admin: 02/17/18 21:29 Dose: 25 mg Clindamycin Phosphate 300 mg/ (Sodium Chloride) 102 mls @ 204 mls/hr IVPB Q6H [facility] PRN Reason: Protocol Last Admin: 02/17/18 19:20 Dose: 204 mls/hr Insulin Human Regular (Novolin R) 0 unit SC ACHS [facility] PRN Reason: Protocol Last Admin: 02/17/18 21:35 Dose: Not Given Levothyroxine Sodium (Synthroid) 75 mcg PO ACB [facility] Last Admin: 02/17/18 06:37 Dose: 75 mcg Metformin HCl (Glucophage Xr) 500 mg PO BID [facility] Last Admin: 02/17/18 18:05 Dose: 500 mg Montelukast Sodium (Singulair) 10 mg PO HS [facility] Last Admin: 02/17/18 21:29 Dose: 10 mg Oxycodone HCl (Oxycontin Extended Release Tab) 80 mg PO Q6 [facility] Last Admin: 02/17/18 18:05 Dose: 80 mg Oxycodone/Acetaminophen (Percocet 5/325 Mg Tab) 2 tab PO Q4H PRN PRN Reason: Pain, moderate (4-7) Last Admin: 02/17/18 19:20 Dose: 2 tab Potassium Chloride (K-Dur 20 Meq Er Tab) 20 meq PO DAILY [facility] Last Admin: 02/17/18 10:13 Dose: 20 meq Fluticasone/Salmeterol (Advair Diskus 250/50) 1 puff IH RQ12 [facility] Last Admin: 02/17/18 19:43 Dose: 1 puff - Labs Labs: 02/17/18 07:03 02/17/18 07:03 PT 16.6 SECONDS (9.7-12.2) H 02/16/18 10:26 INR 1.5 02/16/18 10:26 APTT 31 SECONDS (21-34) 02/16/18 10:26 Assessment and Plan (1) Cellulitis Status: Acute (2) Morbid obesity with BMI of 50.0-59.9, adult Status: Chronic (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
[2018-02-18] MEDS: Clindamycin 300 MG in Sodium Chloride 0.9% 100 ML IVPB SCH ×2 (00:47→07:01)
[2018-02-18] MEDS: oxyCODONE 80 mg ER Tab (oxyCONTIN) PO SCH ×4 (00:47→18:20)
[2018-02-18] MEDS: Oxycodone/Acetaminophen 5/325 mg Tab PO PRN ×5 (04:46→21:27)
[2018-02-18] MEDS: Levothyroxine 75 MCG TAB PO SCH (06:30)
[2018-02-18] MEDS: (Novolin R) Insulin Human Regular 100 units/ml vial SC SCH ×4 (08:24→21:11)
[2018-02-18] MEDS: Potassium Chloride 20 mEq ER Tab PO SCH (09:31)
[2018-02-18] MEDS: Fluticasone-Salmeterol 250-50mcg Diskus IH SCH ×2 (10:10→20:01)
[2018-02-18 11:20] LABS: BASO % 0.6 % (0.0-2.0); EOS # 0.3 K/uL (0.0-0.7); HEMOGLOBIN 10.9 g/dL (12.0-18.0); LYMPH # 1.5 K/uL (1.0-4.3); LYMPH % 22.5 % (20.0-40.0); MEAN CELL VOLUME 79.5 fL (80.0-94.0); MEAN CORPUSCULAR HEMOGLOBIN 25.7 pg (27.0-31.0); MEAN CORPUSCULAR HGB CONC 32.3 g/dL (33.0-37.0); MEAN PLATELET VOLUME 10.1 fL (7.2-11.7); MONO # 0.4 K/uL (0.0-0.8); MONO % 6.6 % (0.0-10.0); NEUT # 4.3 K/uL (1.8-7.0); NEUT % 65.3 % (50.0-75.0); NRBC % 0.1 % (0.0-2.0); RBC 4.26 Mil/uL (4.40-5.90); RED CELL DISTRIBUTION WIDTH 16.9 % (11.5-14.5); WHITE BLOOD COUNT 6.7 K/uL (4.8-10.8)
[2018-02-18 11:33] LABS: ALBUMIN 3.7 g/dL (3.5-5.0); ALT/SGPT 19 U/L (21-72); AST/SGOT 20 U/L (17-59); BLOOD UREA NITROGEN 15 mg/dL (9-20); CALCIUM 8.5 mg/dl (8.6-10.4); GFR AFRICAN-AMERICAN > 60; GFR NON-AFRICAN AMERICAN > 60
[2018-02-18] MEDS ORDERED: Vancomycin 1 gm/NS 200 ml 1 GM/200 ML BAG IVPB SCH (13:15)
[2018-02-18] MEDS: Ciprofloxacin 400mg/200ml D5W 400 MG/200 ML BAG IVPB SCH (13:29)
[2018-02-18] MEDS: Vancomycin 1 gm/NS 200 ml 1 GM/200 ML BAG IVPB SCH (16:30)
--- NOTE | 2018-02-18 17:25 | CP.PCM.PN ---
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 Patient states he had the chills overnight. Patient reports moderate pain to left leg wounds and is apprehensive to have dressings changed today. Offers no other complaints. Denies N/V/F/D/SOB/MABRY/dizziness. Objective - Vital Signs/Intake and Output Vital Signs (last 24 hours): Temp Pulse Resp BP Pulse Ox 97.6 F 64 20 148/73 98 02/18/18 16:00 02/18/18 16:00 02/18/18 16:00 02/18/18 16:00 02/18/18 16:00 Intake and Output: 02/18/18 02/18/18 06:59 18:59 Intake Total 150 Output Total 950 Balance 150 -950 - Medications Medications: Current Medications Acetaminophen (Tylenol 325mg Tab) 650 mg PO Q6 PRN PRN Reason: Headache Docusate Sodium (Colace) 100 mg PO DAILY [facility] Last Admin: 02/18/18 09:31 Dose: 100 mg Furosemide (Lasix) 40 mg PO BID [facility] Last Admin: 02/18/18 09:31 Dose: 40 mg Hydralazine HCl (Apresoline) 25 mg PO Q8 [facility] Last Admin: 02/18/18 13:29 Dose: 25 mg Ciprofloxacin (Cipro 400mg/200ml Dsw) 400 mg in 200 mls @ 133 mls/hr IVPB Q12H [facility] PRN Reason: Protocol Last Admin: 02/18/18 13:29 Dose: 133 mls/hr Vancomycin/Sodium Chloride (Vancomycin 1 Gm/Ns 200 Ml) 1 gm in 200 mls @ 133 mls/hr IVPB Q12H [facility] PRN Reason: Protocol Stop: 02/23/18 16:01 Last Admin: 02/18/18 16:30 Dose: 133 mls/hr Insulin Human Regular (Novolin R) 0 unit SC ACHS [facility] PRN Reason: Protocol Last Admin: 02/18/18 16:31 Dose: Not Given Levothyroxine Sodium (Synthroid) 75 mcg PO ACB [facility] Last Admin: 02/18/18 06:30 Dose: 75 mcg Metformin HCl (Glucophage Xr) 500 mg PO BID [facility] Last Admin: 02/18/18 09:31 Dose: 500 mg Montelukast Sodium (Singulair) 10 mg PO HS [facility] Last Admin: 02/17/18 21:29 Dose: 10 mg Oxycodone HCl (Oxycontin Extended Release Tab) 80 mg PO Q6 [facility] Last Admin: 02/18/18 11:36 Dose: 80 mg Oxycodone/Acetaminophen (Percocet 5/325 Mg Tab) 2 tab PO Q4H PRN PRN Reason: Pain, moderate (4-7) Last Admin: 02/18/18 13:41 Dose: 2 tab Potassium Chloride (K-Dur 20 Meq Er Tab) 20 meq PO DAILY [facility] Last Admin: 02/18/18 09:31 Dose: 20 meq Fluticasone/Salmeterol (Advair Diskus 250/50) 1 puff IH RQ12 [facility] Last Admin: 02/18/18 10:10 Dose: 1 puff - Labs Labs: 02/18/18 11:10 02/18/18 11:10 PT 16.6 SECONDS (9.7-12.2) H 02/16/18 10:26 INR 1.5 02/16/18 10:26 APTT 31 SECONDS (21-34) 02/16/18 10:26 - Constitutional Appears: Well, Non-toxic, No Acute Distress - Extremities Exam Additional comments: Left lower extremity focused exam: strikethough noted to dressings Vasc: Non-palpable pedal pulses due to edema b/l, TG warm to warm, CFT < 3 sec to all digits, +1 pitting edema Derm: +1 pitting edema to legs bilateral, localized erythema to mid-calf bilateral. Left: multiple open ulcerations noted to the to Anterior and lateral and posterior aspect of the left leg circumferentally, with active serosanguinous drainage, wound base is granular/fibrotic base , with shital-wound macerations. Mild amount of purulence, moderate amount of serosanginous drainage noted, moderate malodor noted. Neuro: sensation grossly diminished MUSC: pain on palpation of posterior and medial legs b/l - Neurological Exam Neurological Exam: Alert, Awake, Oriented x3 - Psychiatric Exam Psychiatric exam: Normal Affect, Normal Mood Assessment and Plan - Assessment and Plan (Free Text) Assessment: 57 year old male with left leg chronic nonhealing wounds Plan: Patient seen and evaluated with attending, Dr. Laguna Afebrile, WBC 6.7 L leg WCx: (prelim) staph aureus, psedomonas aeruginosa Continue local wound care - Telfa, DSD LLE Continue abx per ID - Ciprofloxacin 400mg IV Pain management per primary Podiatry will continue to follow patient while in house
[2018-02-18 17:34] LABS: INR 1.3; PROTHROMBIN TIME 14.5 SECONDS (9.7-12.2)
--- NOTE | 2018-02-18 18:46 | CP.PCM.PN ---
Subjective - Date & Time of Evaluation Date of Evaluation: 02/18/18 Time of Evaluation: 09:00 - Subjective Subjective: mrsa and MDR pseudomonas from wound may need further debridement may need avycaz if cipro fails- will ask lab to test for this will cont Vanco/cipro for now prognosis guarded Objective - Vital Signs/Intake and Output Vital Signs (last 24 hours): Temp Pulse Resp BP Pulse Ox 97.6 F 64 20 148/72 98 02/18/18 16:00 02/18/18 16:00 02/18/18 16:00 02/18/18 18:22 02/18/18 16:00 Intake and Output: 02/18/18 02/18/18 06:59 18:59 Intake Total 150 Output Total 950 Balance 150 -950 - Medications Medications: Current Medications Acetaminophen (Tylenol 325mg Tab) 650 mg PO Q6 PRN PRN Reason: Headache Docusate Sodium (Colace) 100 mg PO DAILY [facility] Last Admin: 02/18/18 09:31 Dose: 100 mg Furosemide (Lasix) 40 mg PO BID [facility] Last Admin: 02/18/18 18:22 Dose: 40 mg Hydralazine HCl (Apresoline) 25 mg PO Q8 [facility] Last Admin: 02/18/18 13:29 Dose: 25 mg Ciprofloxacin (Cipro 400mg/200ml Dsw) 400 mg in 200 mls @ 133 mls/hr IVPB Q12H [facility] PRN Reason: Protocol Last Admin: 02/18/18 13:29 Dose: 133 mls/hr Vancomycin/Sodium Chloride (Vancomycin 1 Gm/Ns 200 Ml) 1 gm in 200 mls @ 133 mls/hr IVPB Q12H [facility] PRN Reason: Protocol Stop: 02/23/18 16:01 Last Admin: 02/18/18 16:30 Dose: 133 mls/hr Insulin Human Regular (Novolin R) 0 unit SC ACHS [facility] PRN Reason: Protocol Last Admin: 02/18/18 16:31 Dose: Not Given Levothyroxine Sodium (Synthroid) 75 mcg PO ACB [facility] Last Admin: 02/18/18 06:30 Dose: 75 mcg Metformin HCl (Glucophage Xr) 500 mg PO BID [facility] Last Admin: 02/18/18 18:23 Dose: 500 mg Montelukast Sodium (Singulair) 10 mg PO HS [facility] Last Admin: 02/17/18 21:29 Dose: 10 mg Oxycodone HCl (Oxycontin Extended Release Tab) 80 mg PO Q6 [facility] Last Admin: 02/18/18 18:20 Dose: 80 mg Oxycodone/Acetaminophen (Percocet 5/325 Mg Tab) 2 tab PO Q4H PRN PRN Reason: Pain, moderate (4-7) Last Admin: 02/18/18 17:27 Dose: 2 tab Potassium Chloride (K-Dur 20 Meq Er Tab) 20 meq PO DAILY [facility] Last Admin: 02/18/18 09:31 Dose: 20 meq Fluticasone/Salmeterol (Advair Diskus 250/50) 1 puff IH RQ12 [facility] Last Admin: 02/18/18 10:10 Dose: 1 puff - Labs Labs: 02/18/18 11:10 02/18/18 11:10 PT 14.5 SECONDS (9.7-12.2) H 02/18/18 17:21 INR 1.3 02/18/18 17:21 APTT 31 SECONDS (21-34) 02/16/18 10:26 - Constitutional Appears: Non-toxic, Chronically Ill - Head Exam Head Exam: NORMOCEPHALIC - Eye Exam Eye Exam: PERRL - ENT Exam ENT Exam: Mucous Membranes Dry - Neck Exam Neck Exam: absent: Lymphadenopathy - Respiratory Exam Respiratory Exam: Decreased Breath Sounds - Cardiovascular Exam Cardiovascular Exam: REGULAR RHYTHM - GI/Abdominal Exam GI & Abdominal Exam: Distended - Rectal Exam Rectal Exam: Deferred - Exam Exam: NORMAL INSPECTION - Extremities Exam Extremities Exam: absent: Pedal Edema - Back Exam Back Exam: absent: CVA tenderness (L), CVA tenderness (R) Assessment and Plan (1) Cellulitis Status: Acute (2) Morbid obesity with BMI of 50.0-59.9, adult Status: Chronic (3) Leg ulcer Status: Acute (4) MDD (major depressive disorder) Status: Acute (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
--- NOTE | 2018-02-18 22:38 | CP.PCM.PN ---
Subjective - Date & Time of Evaluation Date of Evaluation: 02/18/18 Time of Evaluation: 20:00 - Subjective Subjective: Pt seen and evalauted regarding left calf lcer pt is on antibiotics, he has psedomonas and MRSA [laced on cipro and vanco mycin pending ID consult Objective - Vital Signs/Intake and Output Vital Signs (last 24 hours): Temp Pulse Resp BP Pulse Ox 97.6 F 64 20 148/72 98 02/18/18 16:00 02/18/18 16:00 02/18/18 16:00 02/18/18 18:22 02/18/18 16:00 Intake and Output: 02/18/18 02/19/18 18:59 06:59 Intake Total 950 Output Total 950 900 Balance -950 50 - Medications Medications: Current Medications Acetaminophen (Tylenol 325mg Tab) 650 mg PO Q6 PRN PRN Reason: Headache Docusate Sodium (Colace) 100 mg PO DAILY [facility] Last Admin: 02/18/18 09:31 Dose: 100 mg Furosemide (Lasix) 40 mg PO BID [facility] Last Admin: 02/18/18 18:22 Dose: 40 mg Hydralazine HCl (Apresoline) 25 mg PO Q8 [facility] Last Admin: 02/18/18 21:27 Dose: 25 mg Ciprofloxacin (Cipro 400mg/200ml Dsw) 400 mg in 200 mls @ 133 mls/hr IVPB Q12H [facility] PRN Reason: Protocol Last Admin: 02/18/18 13:29 Dose: 133 mls/hr Vancomycin/Sodium Chloride (Vancomycin 1 Gm/Ns 200 Ml) 1 gm in 200 mls @ 133 mls/hr IVPB Q12H [facility] PRN Reason: Protocol Stop: 02/23/18 16:01 Last Admin: 02/18/18 16:30 Dose: 133 mls/hr Insulin Human Regular (Novolin R) 0 unit SC ACHS [facility] PRN Reason: Protocol Last Admin: 02/18/18 21:11 Dose: Not Given Levothyroxine Sodium (Synthroid) 75 mcg PO ACB [facility] Last Admin: 02/18/18 06:30 Dose: 75 mcg Metformin HCl (Glucophage Xr) 500 mg PO BID [facility] Last Admin: 02/18/18 18:23 Dose: 500 mg Montelukast Sodium (Singulair) 10 mg PO HS [facility] Last Admin: 02/18/18 21:27 Dose: 10 mg Oxycodone HCl (Oxycontin Extended Release Tab) 80 mg PO Q6 [facility] Last Admin: 02/18/18 18:20 Dose: 80 mg Oxycodone/Acetaminophen (Percocet 5/325 Mg Tab) 2 tab PO Q4H PRN PRN Reason: Pain, moderate (4-7) Last Admin: 02/18/18 21:27 Dose: 2 tab Potassium Chloride (K-Dur 20 Meq Er Tab) 20 meq PO DAILY [facility] Last Admin: 02/18/18 09:31 Dose: 20 meq Fluticasone/Salmeterol (Advair Diskus 250/50) 1 puff IH RQ12 [facility] Last Admin: 02/18/18 20:01 Dose: Not Given - Labs Labs: 02/18/18 11:10 02/18/18 11:10 PT 14.5 SECONDS (9.7-12.2) H 02/18/18 17:21 INR 1.3 02/18/18 17:21 APTT 31 SECONDS (21-34) 02/16/18 10:26 - Constitutional Appears: No Acute Distress - Head Exam Head Exam: ATRAUMATIC, NORMAL INSPECTION, NORMOCEPHALIC - Eye Exam Eye Exam: EOMI, Normal appearance, PERRL Pupil Exam: NORMAL ACCOMODATION, PERRL - Respiratory Exam Respiratory Exam: Clear to Ausculation Bilateral, NORMAL BREATHING PATTERN - Cardiovascular Exam Cardiovascular Exam: REGULAR RHYTHM, +S1, +S2. absent: Murmur Assessment and Plan (1) Cellulitis Status: Acute (2) Morbid obesity with BMI of 50.0-59.9, adult Status: Chronic (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
[2018-02-19] MEDS: oxyCODONE 80 mg ER Tab (oxyCONTIN) PO SCH ×5 (00:18→23:46)
[2018-02-19] MEDS: Ciprofloxacin 400mg/200ml D5W 400 MG/200 ML BAG IVPB SCH ×2 (00:18→13:32)
[2018-02-19] MEDS: Oxycodone/Acetaminophen 5/325 mg Tab PO PRN ×5 (01:40→22:14)
[2018-02-19] MEDS: Vancomycin 1 gm/NS 200 ml 1 GM/200 ML BAG IVPB SCH ×2 (03:41→16:42)
[2018-02-19] MEDS: Levothyroxine 75 MCG TAB PO SCH (06:43)
[2018-02-19] MEDS: (Novolin R) Insulin Human Regular 100 units/ml vial SC SCH ×4 (07:49→21:40)
[2018-02-19] MEDS: Fluticasone-Salmeterol 250-50mcg Diskus IH SCH ×2 (08:29→20:38)
[2018-02-19 08:33] LABS: BASO # 0.1 K/uL (0.0-0.2); BASO % 0.8 % (0.0-2.0); EOS # 0.4 K/uL (0.0-0.7); EOS % 5.4 % (0.0-4.0); HEMOGLOBIN 11.4 g/dL (12.0-18.0); LYMPH # 1.4 K/uL (1.0-4.3); LYMPH % 20.4 % (20.0-40.0); MEAN CELL VOLUME 78.8 fL (80.0-94.0); MEAN CORPUSCULAR HEMOGLOBIN 25.7 pg (27.0-31.0); MEAN CORPUSCULAR HGB CONC 32.6 g/dL (33.0-37.0); MEAN PLATELET VOLUME 9.9 fL (7.2-11.7); MONO # 0.5 K/uL (0.0-0.8); MONO % 6.9 % (0.0-10.0); NEUT # 4.4 K/uL (1.8-7.0); NEUT % 66.5 % (50.0-75.0); RBC 4.45 Mil/uL (4.40-5.90); WHITE BLOOD COUNT 6.7 K/uL (4.8-10.8)
[2018-02-19 08:40] LABS: INR 1.4; PROTHROMBIN TIME 15.7 SECONDS (9.7-12.2)
[2018-02-19 08:49] LABS: ALB/GLOB RATIO 0.9 (1.0-2.1); ALBUMIN 3.8 g/dL (3.5-5.0); ALT/SGPT 15 U/L (21-72); AST/SGOT 18 U/L (17-59); BLOOD UREA NITROGEN 16 mg/dL (9-20); CALCIUM 8.7 mg/dl (8.6-10.4); GFR AFRICAN-AMERICAN > 60; GFR NON-AFRICAN AMERICAN 57
[2018-02-19] MEDS: Potassium Chloride 20 mEq ER Tab PO SCH (10:02)
--- NOTE | 2018-02-19 10:40 | CP.PCM.PN ---
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 Patient returning from PICC insertion at time of visit. No acute events overnight. Patient reports continued, moderate pain to left leg wounds. Also complains of foul odor from left leg. No other complaints. Denies N/V/F/D/ SOB/MABRY/dizziness. Objective - Vital Signs/Intake and Output Vital Signs (last 24 hours): Temp Pulse Resp BP Pulse Ox 98.2 F 69 20 125/84 95 02/19/18 08:00 02/19/18 08:00 02/19/18 08:00 02/19/18 10:02 02/19/18 08:00 Intake and Output: 02/19/18 02/19/18 06:59 18:59 Intake Total 950 Output Total 1600 Balance -650 - Medications Medications: Current Medications Acetaminophen (Tylenol 325mg Tab) 650 mg PO Q6 PRN PRN Reason: Headache Docusate Sodium (Colace) 100 mg PO DAILY [facility] Last Admin: 02/19/18 10:02 Dose: 100 mg Furosemide (Lasix) 40 mg PO BID [facility] Last Admin: 02/19/18 10:02 Dose: 40 mg Hydralazine HCl (Apresoline) 25 mg PO Q8 [facility] Last Admin: 02/19/18 06:03 Dose: 25 mg Ciprofloxacin (Cipro 400mg/200ml Dsw) 400 mg in 200 mls @ 133 mls/hr IVPB Q12H [facility] PRN Reason: Protocol Last Admin: 02/19/18 00:18 Dose: 133 mls/hr Vancomycin/Sodium Chloride (Vancomycin 1 Gm/Ns 200 Ml) 1 gm in 200 mls @ 133 mls/hr IVPB Q12H [facility] PRN Reason: Protocol Stop: 02/23/18 16:01 Last Admin: 02/19/18 03:41 Dose: 133 mls/hr Insulin Human Regular (Novolin R) 0 unit SC ACHS [facility] PRN Reason: Protocol Last Admin: 02/19/18 07:49 Dose: Not Given Levothyroxine Sodium (Synthroid) 75 mcg PO ACB [facility] Last Admin: 02/19/18 06:43 Dose: 75 mcg Metformin HCl (Glucophage Xr) 500 mg PO BID [facility] Last Admin: 02/19/18 10:02 Dose: 500 mg Montelukast Sodium (Singulair) 10 mg PO HS [facility] Last Admin: 02/18/18 21:27 Dose: 10 mg Oxycodone HCl (Oxycontin Extended Release Tab) 80 mg PO Q6 [facility] Last Admin: 02/19/18 06:03 Dose: 80 mg Oxycodone/Acetaminophen (Percocet 5/325 Mg Tab) 2 tab PO Q4H PRN PRN Reason: Pain, moderate (4-7) Last Admin: 02/19/18 10:02 Dose: 2 tab Potassium Chloride (K-Dur 20 Meq Er Tab) 20 meq PO DAILY [facility] Last Admin: 02/19/18 10:02 Dose: 20 meq Fluticasone/Salmeterol (Advair Diskus 250/50) 1 puff IH RQ12 [facility] Last Admin: 02/19/18 08:29 Dose: 1 puff - Labs Labs: 02/19/18 08:21 02/19/18 08:21 PT 15.7 SECONDS (9.7-12.2) H 02/19/18 08:21 INR 1.4 02/19/18 08:21 APTT 31 SECONDS (21-34) 02/16/18 10:26 - Constitutional Appears: Well, Non-toxic, No Acute Distress - Extremities Exam Additional comments: Left lower extremity focused exam: strikethough noted to posterolateral aspect of dressing Vasc: Non-palpable pedal pulses due to edema. TG warm to warm, CFT < 3 sec to all digits, +1 pitting edema to LE Derm: Localized erythema to entire leg from tibial tuberosity distally to ankle joint. Multiple circular ulcerations noted to the to Anterior and lateral and posterior aspect of the left leg circumferentally, wound base is granular/ fibrotic base , with shital-wound macerations. Mild amount of purulence, moderate amount of serosanginous drainage noted, moderate malodor noted. Neuro: sensation grossly diminished MUSC: pain on palpation of posterior and medial legs - Neurological Exam Neurological Exam: Alert, Awake, Oriented x3 - Psychiatric Exam Psychiatric exam: Normal Affect, Normal Mood Assessment and Plan - Assessment and Plan (Free Text) Assessment: 57 year old male with left leg chronic nonhealing wounds Plan: Patient seen and evaluated with attending, Dr. Laguna Afebrile, WBC 6.7 L leg WCx: staph aureus, psedomonas aeruginosa -pseudomonas multi-drug resistant Continue local wound care - SANTANA Woodruff Continue abx per ID - Ciprofloxacin 400mg IV, Vancomycin 1g IV Pain management per primary Patient scheduled for OR 02/22/18 @ 10:00 AM for left leg wound debridement -NPO past mn on Thursday [facility] will continue to follow patient while in house
--- NOTE | 2018-02-19 11:23 | PCM.SURG1 ---
Surgeon's Initial Post Op Note - Surgeon's Notes Surgeon: Anibal Carroll MD De Alcholizer: NONE Type of Anesthesia: Local Pre-Operative Diagnosis: Infection Operative Findings: US showed a patent left basilic vein Post-Operative Diagnosis: Infection, central venous stenosis Operation Performed: US guided single lumen picc placement left basilic vein. Tip of picc is in the axillary vein. The picc could not advance beyond the subclavian vein. Specimen/Specimens Removed: None Estimated Blood Loss: EBL {In ML}: 2 Blood Products Given: N/A Drains Used: No Drains Post-Op Condition: Fair Date of Surgery/Procedure: 02/19/18 Time of Surgery/Procedure: 11:05
--- NOTE | 2018-02-19 14:25 | US ---
Date of procedure: 02/19/2018 Procedure: Ultrasound guidance for vascular access HISTORY: Infection requiring long-term IV antibiotics TECHNIQUE: Following informed consent and procedure time-out, the patient placed supine on the interventional table and the left arm prepped and draped in the usual sterile fashion. Ultrasound showed a patent and compressible basilic vein. After the skin was anesthetized with lidocaine, the basilic vein was accessed with micro micropuncture technique using ultrasound guidance. An image documenting ultrasound guidance for vascular access was permanently saved. IMPRESSION: Ultrasound guidance for vascular access for placement of PICC.
--- NOTE | 2018-02-19 14:28 | RAD ---
PROCEDURE: Date of procedure: 02/19/2018 Procedure: 1. Placement of a left arm PICC with ultrasound and fluoroscopic guidance, CPT 41594 2. PICC tip confirmation with spot radiograph and is in the superior vena cava Medications: 1 percent lidocaine Total Fluoro time: 14.1 seconds Radiation: 11.76 MGy EBL: 3 cc HISTORY: Infection requiring long-term IV antibiotics TECHNIQUE: Following informed consent and procedure time-out, the patient placed supine on the interventional table and the left arm prepped and draped in the usual sterile fashion. Ultrasound showed a patent and compressible left basilic vein. After the skin was anesthetized with lidocaine, the basilic vein was accessed with micro micropuncture technique using ultrasound guidance. A guidewire was then advanced under fluoroscopic guidance into the basilic vein. An image documenting ultrasound guidance for vascular access was permanently saved. The picc was unable to advance beyond the axillary vein secondary to a stenosis. The length of a dual-lumen 5 [place] PICC was trimmed to 24 cm and advanced through a peel-away sheath. The PICC was position with tip of PICC confirm a spot radiograph the axillary vein. The PICC was secured to the patient's skin. The PICC was flushed. A biopatch and sterile dressing was applied. IMPRESSION: Placement of a dual-lumen 5 [place] PICC left basilic vein trimmed to 24 cm. The tip of the PICC is confirmed with spot radiograph and is in the axillary vein. The picc could not be advanced secondary to axillary vein stenosis.
--- NOTE | 2018-02-19 18:21 | CP.PCM.PN ---
Subjective - Date & Time of Evaluation Date of Evaluation: 02/19/18 Time of Evaluation: 08:00 - Subjective Subjective: seen and evaluated at bedside for chronic non-healing wounds to left lower extremity. Patient returning from PICC insertion at time of visit. No acute events overnight. Patient reports continued, moderate pain to left leg wounds. Also complains of foul odor from left leg. Objective - Vital Signs/Intake and Output Vital Signs (last 24 hours): Temp Pulse Resp BP Pulse Ox 98 F 69 20 112/66 98 02/19/18 15:41 02/19/18 15:41 02/19/18 15:41 02/19/18 15:41 02/19/18 15:41 Intake and Output: 02/19/18 02/19/18 06:59 18:59 Intake Total 950 920 Output Total 1600 Balance -650 920 - Medications Medications: Current Medications Acetaminophen (Tylenol 325mg Tab) 650 mg PO Q6 PRN PRN Reason: Headache Docusate Sodium (Colace) 100 mg PO DAILY REPLACED BY [facility] Last Admin: 02/19/18 10:02 Dose: 100 mg Furosemide (Lasix) 40 mg PO BID REPLACED BY [facility] Last Admin: 02/19/18 10:02 Dose: 40 mg Hydralazine HCl (Apresoline) 25 mg PO Q8 REPLACED BY [facility] Last Admin: 02/19/18 13:31 Dose: 25 mg Ciprofloxacin (Cipro 400mg/200ml Dsw) 400 mg in 200 mls @ 133 mls/hr IVPB Q12H [facility] PRN Reason: Protocol Last Admin: 02/19/18 13:32 Dose: 133 mls/hr Vancomycin/Sodium Chloride (Vancomycin 1 Gm/Ns 200 Ml) 1 gm in 200 mls @ 133 mls/hr IVPB Q12H [facility] PRN Reason: Protocol Stop: 02/23/18 16:01 Last Admin: 02/19/18 16:42 Dose: 133 mls/hr Insulin Human Regular (Novolin R) 0 unit SC ACHS [facility] PRN Reason: Protocol Last Admin: 02/19/18 16:43 Dose: Not Given Levothyroxine Sodium (Synthroid) 75 mcg PO ACB REPLACED BY [facility] Last Admin: 02/19/18 06:43 Dose: 75 mcg Metformin HCl (Glucophage Xr) 500 mg PO BID REPLACED BY [facility] Last Admin: 02/19/18 10:02 Dose: 500 mg Montelukast Sodium (Singulair) 10 mg PO HS REPLACED BY [facility] Last Admin: 02/18/18 21:27 Dose: 10 mg Oxycodone HCl (Oxycontin Extended Release Tab) 80 mg PO Q6 REPLACED BY [facility] Last Admin: 02/19/18 11:56 Dose: 80 mg Oxycodone/Acetaminophen (Percocet 5/325 Mg Tab) 2 tab PO Q4H PRN PRN Reason: Pain, moderate (4-7) Last Admin: 02/19/18 16:33 Dose: 2 tab Potassium Chloride (K-Dur 20 Meq Er Tab) 20 meq PO DAILY REPLACED BY [facility] Last Admin: 02/19/18 10:02 Dose: 20 meq Fluticasone/Salmeterol (Advair Diskus 250/50) 1 puff IH RQ12 REPLACED BY [facility] Last Admin: 02/19/18 08:29 Dose: 1 puff - Labs Labs: 02/19/18 08:21 02/19/18 08:21 PT 15.7 SECONDS (9.7-12.2) H 02/19/18 08:21 INR 1.4 02/19/18 08:21 APTT 31 SECONDS (21-34) 02/16/18 10:26 - Constitutional Appears: Non-toxic, Chronically Ill - Head Exam Head Exam: NORMOCEPHALIC - Eye Exam Eye Exam: PERRL - ENT Exam ENT Exam: Mucous Membranes Dry - Neck Exam Neck Exam: absent: Lymphadenopathy - Respiratory Exam Respiratory Exam: Decreased Breath Sounds - Cardiovascular Exam Cardiovascular Exam: REGULAR RHYTHM - GI/Abdominal Exam GI & Abdominal Exam: Distended, Soft - Rectal Exam Rectal Exam: Deferred - Exam Exam: NORMAL INSPECTION - Extremities Exam Extremities Exam: Pedal Edema, Tenderness - Back Exam Back Exam: absent: CVA tenderness (L), CVA tenderness (R) - Neurological Exam Neurological Exam: Alert, Awake, Oriented x3 Assessment and Plan (1) Cellulitis Status: Acute (2) Morbid obesity with BMI of 50.0-59.9, adult Status: Chronic (3) Leg ulcer Status: Acute (4) MDD (major depressive disorder) Status: Acute (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
[2018-02-19] MEDS: Meropenem 500 MG in Sodium Chloride 0.9% 100 ML IVPB SCH (21:45)
--- NOTE | 2018-02-19 23:33 | CP.PCM.PN ---
Subjective - Date & Time of Evaluation Date of Evaluation: 02/19/18 Time of Evaluation: 19:00 - Subjective Subjective: Pt seen and evaluated at bedside, he has chronic non-healing wounds to left lower extremity, MDRO resistant to avycaz- sens to colistin started colistin and merrem as per ID Patient returning from PICC insertion at time of visit. No acute events overnight. Patient reports continued, moderate pain to left leg wounds. Also complains of foul odor from left leg. Objective - Vital Signs/Intake and Output Vital Signs (last 24 hours): Temp Pulse Resp BP Pulse Ox 98 F 68 20 130/85 98 02/19/18 15:41 02/19/18 21:46 02/19/18 15:41 02/19/18 21:46 02/19/18 15:41 Intake and Output: 02/19/18 02/20/18 18:59 06:59 Intake Total 920 200 Balance 920 200 - Medications Medications: Current Medications Acetaminophen (Tylenol 325mg Tab) 650 mg PO Q6 PRN PRN Reason: Headache Docusate Sodium (Colace) 100 mg PO DAILY [facility] Last Admin: 02/19/18 10:02 Dose: 100 mg Furosemide (Lasix) 40 mg PO BID [facility] Last Admin: 02/19/18 18:20 Dose: 40 mg Hydralazine HCl (Apresoline) 25 mg PO Q8 [facility] Last Admin: 02/19/18 21:45 Dose: 25 mg Vancomycin/Sodium Chloride (Vancomycin 1 Gm/Ns 200 Ml) 1 gm in 200 mls @ 133 mls/hr IVPB Q12H [facility] PRN Reason: Protocol Stop: 02/23/18 16:01 Last Admin: 02/19/18 16:42 Dose: 133 mls/hr Colistimethate Sodium 150 mg/ (Sodium Chloride) 100 mls @ 200 mls/hr IV Q12H [facility] PRN Reason: Protocol Last Admin: 02/19/18 19:06 Dose: 200 mls/hr Meropenem 500 mg/ Sodium (Chloride) 100 mls @ 100 mls/hr IVPB Q8 [facility] PRN Reason: Protocol Last Admin: 02/19/18 21:45 Dose: 100 mls/hr Insulin Human Regular (Novolin R) 0 unit SC ACHS [facility] PRN Reason: Protocol Last Admin: 03/23/18 21:40 Dose: Not Given Levothyroxine Sodium (Synthroid) 75 mcg PO ACB [facility] Last Admin: 02/19/18 06:43 Dose: 75 mcg Metformin HCl (Glucophage Xr) 500 mg PO BID [facility] Last Admin: 02/19/18 18:24 Dose: 500 mg Montelukast Sodium (Singulair) 10 mg PO HS [facility] Last Admin: 02/19/18 21:45 Dose: 10 mg Oxycodone HCl (Oxycontin Extended Release Tab) 80 mg PO Q6 [facility] Last Admin: 02/19/18 18:21 Dose: 80 mg Oxycodone/Acetaminophen (Percocet 5/325 Mg Tab) 2 tab PO Q4H PRN PRN Reason: Pain, moderate (4-7) Last Admin: 02/19/18 22:14 Dose: 2 tab Potassium Chloride (K-Dur 20 Meq Er Tab) 20 meq PO DAILY [facility] Last Admin: 02/19/18 10:02 Dose: 20 meq Fluticasone/Salmeterol (Advair Diskus 250/50) 1 puff IH RQ12 [facility] Last Admin: 02/19/18 20:38 Dose: 1 puff - Labs Labs: 02/19/18 08:21 02/19/18 08:21 PT 15.7 SECONDS (9.7-12.2) H 02/19/18 08:21 INR 1.4 02/19/18 08:21 APTT 31 SECONDS (21-34) 02/16/18 10:26 Assessment and Plan (1) Cellulitis Status: Acute (2) Morbid obesity with BMI of 50.0-59.9, adult Status: Chronic (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
[2018-02-20] MEDS: Oxycodone/Acetaminophen 5/325 mg Tab PO PRN ×4 (02:47→20:51)
[2018-02-20] MEDS: Vancomycin 1 gm/NS 200 ml 1 GM/200 ML BAG IVPB SCH ×2 (04:59→15:30)
[2018-02-20] MEDS: oxyCODONE 80 mg ER Tab (oxyCONTIN) PO SCH ×3 (05:13→17:51)
[2018-02-20] MEDS: Meropenem 500 MG in Sodium Chloride 0.9% 100 ML IVPB SCH ×3 (05:16→21:28)
[2018-02-20] MEDS: Fluticasone-Salmeterol 250-50mcg Diskus IH SCH ×2 (07:28→20:17)
[2018-02-20] MEDS: Levothyroxine 75 MCG TAB PO SCH (07:30)
[2018-02-20 07:36] LABS: INR 1.4; PROTHROMBIN TIME 15.9 SECONDS (9.7-12.2)
[2018-02-20 07:38] LABS: BASO # 0.1 K/uL (0.0-0.2); BASO % 0.9 % (0.0-2.0); EOS # 0.4 K/uL (0.0-0.7); EOS % 5.4 % (0.0-4.0); HEMOGLOBIN 11.2 g/dL (12.0-18.0); LYMPH # 1.8 K/uL (1.0-4.3); LYMPH % 26.8 % (20.0-40.0); MEAN CELL VOLUME 79.3 fL (80.0-94.0); MEAN CORPUSCULAR HEMOGLOBIN 25.6 pg (27.0-31.0); MEAN CORPUSCULAR HGB CONC 32.2 g/dL (33.0-37.0); MEAN PLATELET VOLUME 9.9 fL (7.2-11.7); MONO # 0.5 K/uL (0.0-0.8); MONO % 8.3 % (0.0-10.0); NEUT # 3.8 K/uL (1.8-7.0); NEUT % 58.6 % (50.0-75.0); RBC 4.38 Mil/uL (4.40-5.90); RED CELL DISTRIBUTION WIDTH 17.2 % (11.5-14.5); WHITE BLOOD COUNT 6.6 K/uL (4.8-10.8)
[2018-02-20] MEDS: (Novolin R) Insulin Human Regular 100 units/ml vial SC SCH ×4 (07:45→21:18)
[2018-02-20 07:51] LABS: ALB/GLOB RATIO 0.9 (1.0-2.1); ALBUMIN 3.6 g/dL (3.5-5.0); ALT/SGPT 21 U/L (21-72); AST/SGOT 15 U/L (17-59); BLOOD UREA NITROGEN 20 mg/dL (9-20); CALCIUM 8.7 mg/dl (8.6-10.4); GFR AFRICAN-AMERICAN > 60; GFR NON-AFRICAN AMERICAN 57
[2018-02-20] MEDS: Potassium Chloride 20 mEq ER Tab PO SCH (09:23)
--- NOTE | 2018-02-20 11:53 | CP.PCM.PN ---
Subjective - Date & Time of Evaluation Date of Evaluation: 02/20/18 Time of Evaluation: 09:25 - Subjective Subjective: Podiatry Progress Note - Dr. Laguna 57M seen and evaluated at bedside for chronic non-healing wounds to left lower extremity. Appears to be resting comfortably in bed, in NAD, and AA0x3. No acute events overnight. Patient reports continued moderate pain to left leg wounds. No new pedal complaints. Denies N/V/F/D/SOB/MABRY/dizziness. Objective - Vital Signs/Intake and Output Vital Signs (last 24 hours): Temp Pulse Resp BP Pulse Ox 98.0 F 64 18 120/70 95 02/20/18 07:00 02/20/18 07:00 02/20/18 07:00 02/20/18 09:22 02/20/18 07:00 Intake and Output: 02/20/18 02/20/18 06:59 18:59 Intake Total 200 Balance 200 - Medications Medications: Current Medications Acetaminophen (Tylenol 325mg Tab) 650 mg PO Q6 PRN PRN Reason: Headache Docusate Sodium (Colace) 100 mg PO DAILY [facility] Last Admin: 02/20/18 09:23 Dose: 100 mg Furosemide (Lasix) 40 mg PO BID [facility] Last Admin: 02/20/18 09:22 Dose: 40 mg Hydralazine HCl (Apresoline) 25 mg PO Q8 [facility] Last Admin: 02/20/18 05:13 Dose: 25 mg Vancomycin/Sodium Chloride (Vancomycin 1 Gm/Ns 200 Ml) 1 gm in 200 mls @ 133 mls/hr IVPB Q12H [facility] PRN Reason: Protocol Stop: 02/23/18 16:01 Last Admin: 02/20/18 04:59 Dose: 133 mls/hr Colistimethate Sodium 150 mg/ (Sodium Chloride) 100 mls @ 200 mls/hr IV Q12H [facility] PRN Reason: Protocol Last Admin: 02/20/18 06:15 Dose: 200 mls/hr Meropenem 500 mg/ Sodium (Chloride) 100 mls @ 100 mls/hr IVPB Q8 [facility] PRN Reason: Protocol Last Admin: 02/20/18 05:16 Dose: 100 mls/hr Insulin Human Regular (Novolin R) 0 unit SC ACHS [facility] PRN Reason: Protocol Last Admin: 02/20/18 11:50 Dose: 1 unit Levothyroxine Sodium (Synthroid) 75 mcg PO ACB [facility] Last Admin: 02/20/18 07:30 Dose: 75 mcg Metformin HCl (Glucophage Xr) 500 mg PO BID [facility] Last Admin: 02/20/18 09:23 Dose: 500 mg Montelukast Sodium (Singulair) 10 mg PO HS [facility] Last Admin: 02/19/18 21:45 Dose: 10 mg Oxycodone HCl (Oxycontin Extended Release Tab) 80 mg PO Q6 [facility] Last Admin: 02/20/18 05:13 Dose: 80 mg Oxycodone/Acetaminophen (Percocet 5/325 Mg Tab) 2 tab PO Q4H PRN PRN Reason: Pain, moderate (4-7) Last Admin: 02/20/18 09:22 Dose: 2 tab Potassium Chloride (K-Dur 20 Meq Er Tab) 20 meq PO DAILY [facility] Last Admin: 02/20/18 09:23 Dose: 20 meq Fluticasone/Salmeterol (Advair Diskus 250/50) 1 puff IH RQ12 [facility] Last Admin: 02/20/18 07:28 Dose: 1 puff - Labs Labs: 02/20/18 07:17 02/20/18 07:17 PT 15.9 SECONDS (9.7-12.2) H 02/20/18 07:17 INR 1.4 02/20/18 07:17 APTT 31 SECONDS (21-34) 02/16/18 10:26 - Constitutional Appears: Well, Non-toxic, No Acute Distress - Extremities Exam Extremities Exam: absent: Calf Tenderness Additional comments: Left lower extremity focused exam: strikethough noted to posterolateral aspect of dressing Vasc: Non-palpable pedal pulses due to edema. TG warm to warm, CFT < 3 sec to all digits, +1 pitting edema to LE Derm: Localized erythema to entire leg from tibial tuberosity distally to ankle joint. Multiple circular ulcerations noted to the to Anterior and lateral and posterior aspect of the left leg circumferentally, wound base is granular/ fibrotic base , with shital-wound macerations. Mild amount of purulence, moderate amount of serosanginous drainage noted, moderate malodor noted. Neuro: sensation grossly diminished MUSC: pain on palpation of posterior and medial legs - Neurological Exam Neurological Exam: Alert, Awake, Oriented x3 - Psychiatric Exam Psychiatric exam: Normal Affect, Normal Mood Assessment and Plan - Assessment and Plan (Free Text) Assessment: 57 year old male with left leg chronic nonhealing wounds Plan: Patient seen and evaluated with attending, Dr. Laguna Afebrile, WBC 6.6 L leg WCx: staph aureus, psedomonas aeruginosa -pseudomonas multi-drug resistant Continue local wound care - Telfa, DSD LLE Continue abx per ID - Ciprofloxacin 400mg IV, Vancomycin 1g IV Pain management per primary Patient scheduled for OR 02/22/18 @ 10:00 AM for left leg wound debridement -NPO past mn on Thursday -Hold [facility] Podiatry will continue to follow patient while in house
[2018-02-20] MEDS: Enoxaparin 40 mg Syringe SC SCH (13:28)
[2018-02-21] MEDS: oxyCODONE 80 mg ER Tab (oxyCONTIN) PO SCH ×4 (00:05→18:00)
[2018-02-21] MEDS: Oxycodone/Acetaminophen 5/325 mg Tab PO PRN ×4 (03:12→20:28)
[2018-02-21] MEDS: Vancomycin 1 gm/NS 200 ml 1 GM/200 ML BAG IVPB SCH ×2 (03:13→16:20)
[2018-02-21] MEDS: Meropenem 500 MG in Sodium Chloride 0.9% 100 ML IVPB SCH ×3 (05:02→21:32)
[2018-02-21] MEDS: (Novolin R) Insulin Human Regular 100 units/ml vial SC SCH ×4 (08:22→21:31)
[2018-02-21] MEDS: Levothyroxine 75 MCG TAB PO SCH (08:30)
[2018-02-21] MEDS: Fluticasone-Salmeterol 250-50mcg Diskus IH SCH ×2 (08:33→20:19)
[2018-02-21 08:47] LABS: INR 1.5; PROTHROMBIN TIME 16.9 SECONDS (9.7-12.2)
[2018-02-21] MEDS: Enoxaparin 40 mg Syringe SC SCH (10:09)
[2018-02-21] MEDS: Potassium Chloride 20 mEq ER Tab PO SCH (10:10)
--- NOTE | 2018-02-21 14:39 | CP.PCM.PN ---
Subjective - Date & Time of Evaluation Date of Evaluation: 02/20/18 Time of Evaluation: 17:15 - Subjective Subjective: PT SEEN AND EXAMINED, IS COMPLIANING OF ITCHING IN GROIN AREA, POSITIVE LOW BACK PAIN, DENIES ANY NUASEA, VOMITTING, PT IS FOR OR ON THURSDAY DUE TO LEFT LEG ULCER, HOLD COUMADIN Objective - Vital Signs/Intake and Output Vital Signs (last 24 hours): Temp Pulse Resp BP Pulse Ox 98.2 F 76 20 146/74 96 02/21/18 09:58 02/21/18 09:58 02/21/18 09:58 02/21/18 10:10 02/21/18 09:58 Intake and Output: 02/21/18 02/21/18 06:59 18:59 Intake Total 100 720 Output Total 200 800 Balance -100 -80 - Medications Medications: Current Medications Acetaminophen (Tylenol 325mg Tab) 650 mg PO Q6 PRN PRN Reason: Headache Docusate Sodium (Colace) 100 mg PO DAILY [facility] Last Admin: 02/21/18 10:10 Dose: 100 mg Enoxaparin Sodium (Lovenox) 40 mg SC DAILY [facility] Last Admin: 02/21/18 10:09 Dose: 40 mg Furosemide (Lasix) 40 mg PO BID [facility] Last Admin: 02/21/18 10:10 Dose: 40 mg Hydralazine HCl (Apresoline) 25 mg PO Q8 [facility] Last Admin: 02/21/18 14:24 Dose: 25 mg Vancomycin/Sodium Chloride (Vancomycin 1 Gm/Ns 200 Ml) 1 gm in 200 mls @ 133 mls/hr IVPB Q12H [facility] PRN Reason: Protocol Stop: 02/23/18 16:01 Last Admin: 02/21/18 03:13 Dose: 133 mls/hr Colistimethate Sodium 150 mg/ (Sodium Chloride) 100 mls @ 200 mls/hr IV Q12H [facility] PRN Reason: Protocol Last Admin: 02/21/18 06:01 Dose: 200 mls/hr Meropenem 500 mg/ Sodium (Chloride) 100 mls @ 100 mls/hr IVPB Q8 [facility] PRN Reason: Protocol Last Admin: 02/21/18 14:25 Dose: 100 mls/hr Insulin Human Regular (Novolin R) 0 unit SC ACHS [facility] PRN Reason: Protocol Last Admin: 02/21/18 12:18 Dose: Not Given Levothyroxine Sodium (Synthroid) 75 mcg PO ACB [facility] Last Admin: 02/21/18 08:30 Dose: 75 mcg Metformin HCl (Glucophage Xr) 500 mg PO BID [facility] Last Admin: 02/21/18 10:09 Dose: 500 mg Montelukast Sodium (Singulair) 10 mg PO HS [facility] Last Admin: 02/20/18 21:28 Dose: 10 mg Oxycodone HCl (Oxycontin Extended Release Tab) 80 mg PO Q6 [facility] Last Admin: 02/21/18 12:20 Dose: 80 mg Oxycodone/Acetaminophen (Percocet 5/325 Mg Tab) 2 tab PO Q4H PRN PRN Reason: Pain, moderate (4-7) Last Admin: 02/21/18 14:22 Dose: 2 tab Potassium Chloride (K-Dur 20 Meq Er Tab) 20 meq PO DAILY [facility] Last Admin: 02/21/18 10:10 Dose: 20 meq Fluticasone/Salmeterol (Advair Diskus 250/50) 1 puff IH RQ12 [facility] Last Admin: 02/21/18 08:33 Dose: 1 puff - Labs Labs: 02/20/18 07:17 02/20/18 07:17 PT 16.9 SECONDS (9.7-12.2) H 02/21/18 08:08 INR 1.5 02/21/18 08:08 APTT 31 SECONDS (21-34) 02/16/18 10:26 - Constitutional Appears: No Acute Distress - Head Exam Head Exam: ATRAUMATIC, NORMAL INSPECTION, NORMOCEPHALIC - Eye Exam Eye Exam: EOMI, Normal appearance, PERRL Pupil Exam: NORMAL ACCOMODATION, PERRL - Respiratory Exam Respiratory Exam: Clear to Ausculation Bilateral, NORMAL BREATHING PATTERN - Cardiovascular Exam Cardiovascular Exam: REGULAR RHYTHM, +S1, +S2. absent: Murmur - GI/Abdominal Exam GI & Abdominal Exam: Soft, Normal Bowel Sounds. absent: Tenderness Assessment and Plan (1) Cellulitis Status: Acute (2) Morbid obesity with BMI of 50.0-59.9, adult Status: Chronic (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
--- NOTE | 2018-02-21 15:15 | CP.PCM.PN ---
Subjective - Date & Time of Evaluation Date of Evaluation: 02/21/18 Time of Evaluation: 11:00 - Subjective Subjective: Podiatry Progress Note - Dr. Laguna 57M seen and evaluated at bedside for chronic non-healing wounds to left lower extremity. Patient is resting comfortably in bed, in NAD, AA0x3. Patient denies acute events overnight. Patient reports continued, moderate pain to left leg wounds. Complains of long nails that are bothersome. Denies N/V/F/D/SOB/MABRY/ dizziness. Patient aware that he will go to the OR in the AM with Dr. Laguna. Patient understands nothing to eat or drink after midnights. Objective - Vital Signs/Intake and Output Vital Signs (last 24 hours): Temp Pulse Resp BP Pulse Ox 98.2 F 76 20 146/74 96 02/21/18 09:58 02/21/18 09:58 02/21/18 09:58 02/21/18 10:10 02/21/18 09:58 Intake and Output: 02/21/18 02/21/18 06:59 18:59 Intake Total 100 720 Output Total 200 800 Balance -100 -80 - Medications Medications: Current Medications Acetaminophen (Tylenol 325mg Tab) 650 mg PO Q6 PRN PRN Reason: Headache Docusate Sodium (Colace) 100 mg PO DAILY [facility] Last Admin: 02/21/18 10:10 Dose: 100 mg Enoxaparin Sodium (Lovenox) 40 mg SC DAILY [facility] Last Admin: 02/21/18 10:09 Dose: 40 mg Furosemide (Lasix) 40 mg PO BID [facility] Last Admin: 02/21/18 10:10 Dose: 40 mg Hydralazine HCl (Apresoline) 25 mg PO Q8 [facility] Last Admin: 02/21/18 14:24 Dose: 25 mg Vancomycin/Sodium Chloride (Vancomycin 1 Gm/Ns 200 Ml) 1 gm in 200 mls @ 133 mls/hr IVPB Q12H [facility] PRN Reason: Protocol Stop: 02/23/18 16:01 Last Admin: 02/21/18 03:13 Dose: 133 mls/hr Colistimethate Sodium 150 mg/ (Sodium Chloride) 100 mls @ 200 mls/hr IV Q12H [facility] PRN Reason: Protocol Last Admin: 02/21/18 06:01 Dose: 200 mls/hr Meropenem 500 mg/ Sodium (Chloride) 100 mls @ 100 mls/hr IVPB Q8 [facility] PRN Reason: Protocol Last Admin: 02/21/18 14:25 Dose: 100 mls/hr Insulin Human Regular (Novolin R) 0 unit SC ACHS [facility] PRN Reason: Protocol Last Admin: 02/21/18 12:18 Dose: Not Given Levothyroxine Sodium (Synthroid) 75 mcg PO ACB [facility] Last Admin: 02/21/18 08:30 Dose: 75 mcg Metformin HCl (Glucophage Xr) 500 mg PO BID [facility] Last Admin: 02/21/18 10:09 Dose: 500 mg Montelukast Sodium (Singulair) 10 mg PO HS [facility] Last Admin: 02/20/18 21:28 Dose: 10 mg Oxycodone HCl (Oxycontin Extended Release Tab) 80 mg PO Q6 [facility] Last Admin: 02/21/18 12:20 Dose: 80 mg Oxycodone/Acetaminophen (Percocet 5/325 Mg Tab) 2 tab PO Q4H PRN PRN Reason: Pain, moderate (4-7) Last Admin: 02/21/18 14:22 Dose: 2 tab Potassium Chloride (K-Dur 20 Meq Er Tab) 20 meq PO DAILY [facility] Last Admin: 02/21/18 10:10 Dose: 20 meq Fluticasone/Salmeterol (Advair Diskus 250/50) 1 puff IH RQ12 [facility] Last Admin: 02/21/18 08:33 Dose: 1 puff - Labs Labs: 02/20/18 07:17 02/20/18 07:17 PT 16.9 SECONDS (9.7-12.2) H 02/21/18 08:08 INR 1.5 02/21/18 08:08 APTT 31 SECONDS (21-34) 02/16/18 10:26 - Constitutional Appears: Well, Non-toxic, No Acute Distress - Extremities Exam Extremities Exam: absent: Calf Tenderness Additional comments: Dressing is clean dry and intact without strikethrough Elongated nails, thicken with hypertrophic, subungal debris, discolored nail plate to digits CFT < 3 seconds, temperature gradient Warm to Warm from knees to toes - Neurological Exam Neurological Exam: Alert, Awake, Oriented x3 - Psychiatric Exam Psychiatric exam: Normal Affect, Normal Mood Assessment and Plan - Assessment and Plan (Free Text) Assessment: 57 year old male with left leg chronic nonhealing wounds and bothersome elongated, mycotic toenails Plan: Patient seen and evaluated with attending, Dr. Laguna Afebrile, absent leukocytosis L leg WCx: staph aureus, psedomonas aeruginosa -pseudomonas multi-drug resistant Continue local wound care - Telfa, DSD LLE Dressing kept clean, dry, and intact Continue abx per ID - Ciprofloxacin 400mg IV, Vancomycin 1g IV Pain management per primary Patient scheduled for OR 02/22/18 @ 10:00 AM for left leg wound debridement -NPO past mn on Thursday -Hold anticoags Dr. Laguna spoke to Dr. Albright and LOOP CUTTER. Patient is medically clear per Dr. Albright and LOOP CUTTER for surgery Will debride nails prior to discharge Podiatry will continue to follow patient while in house
--- NOTE | 2018-02-21 15:33 | CP.PCM.PN ---
Subjective - Date & Time of Evaluation Date of Evaluation: 02/21/18 Time of Evaluation: 08:00 - Subjective Subjective: tolerating IV rx no fever Objective - Vital Signs/Intake and Output Vital Signs (last 24 hours): Temp Pulse Resp BP Pulse Ox 98.2 F 76 20 146/74 96 02/21/18 09:58 02/21/18 09:58 02/21/18 09:58 02/21/18 10:10 02/21/18 09:58 Intake and Output: 02/21/18 02/21/18 06:59 18:59 Intake Total 100 720 Output Total 200 800 Balance -100 -80 - Medications Medications: Current Medications Acetaminophen (Tylenol 325mg Tab) 650 mg PO Q6 PRN PRN Reason: Headache Docusate Sodium (Colace) 100 mg PO DAILY [facility] Last Admin: 02/21/18 10:10 Dose: 100 mg Enoxaparin Sodium (Lovenox) 40 mg SC DAILY [facility] Last Admin: 02/21/18 10:09 Dose: 40 mg Furosemide (Lasix) 40 mg PO BID [facility] Last Admin: 02/21/18 10:10 Dose: 40 mg Hydralazine HCl (Apresoline) 25 mg PO Q8 [facility] Last Admin: 02/21/18 14:24 Dose: 25 mg Vancomycin/Sodium Chloride (Vancomycin 1 Gm/Ns 200 Ml) 1 gm in 200 mls @ 133 mls/hr IVPB Q12H [facility] PRN Reason: Protocol Stop: 02/23/18 16:01 Last Admin: 02/21/18 03:13 Dose: 133 mls/hr Colistimethate Sodium 150 mg/ (Sodium Chloride) 100 mls @ 200 mls/hr IV Q12H [facility] PRN Reason: Protocol Last Admin: 02/21/18 06:01 Dose: 200 mls/hr Meropenem 500 mg/ Sodium (Chloride) 100 mls @ 100 mls/hr IVPB Q8 [facility] PRN Reason: Protocol Last Admin: 02/21/18 14:25 Dose: 100 mls/hr Insulin Human Regular (Novolin R) 0 unit SC ACHS [facility] PRN Reason: Protocol Last Admin: 02/21/18 12:18 Dose: Not Given Levothyroxine Sodium (Synthroid) 75 mcg PO ACB [facility] Last Admin: 02/21/18 08:30 Dose: 75 mcg Metformin HCl (Glucophage Xr) 500 mg PO BID [facility] Last Admin: 02/21/18 10:09 Dose: 500 mg Montelukast Sodium (Singulair) 10 mg PO HS [facility] Last Admin: 02/20/18 21:28 Dose: 10 mg Oxycodone HCl (Oxycontin Extended Release Tab) 80 mg PO Q6 [facility] Last Admin: 02/21/18 12:20 Dose: 80 mg Oxycodone/Acetaminophen (Percocet 5/325 Mg Tab) 2 tab PO Q4H PRN PRN Reason: Pain, moderate (4-7) Last Admin: 02/21/18 14:22 Dose: 2 tab Potassium Chloride (K-Dur 20 Meq Er Tab) 20 meq PO DAILY [facility] Last Admin: 02/21/18 10:10 Dose: 20 meq Fluticasone/Salmeterol (Advair Diskus 250/50) 1 puff IH RQ12 [facility] Last Admin: 02/21/18 08:33 Dose: 1 puff - Labs Labs: 02/20/18 07:17 02/20/18 07:17 PT 16.9 SECONDS (9.7-12.2) H 02/21/18 08:08 INR 1.5 02/21/18 08:08 APTT 31 SECONDS (21-34) 02/16/18 10:26 - Constitutional Appears: Non-toxic, Chronically Ill - Head Exam Head Exam: NORMOCEPHALIC - Eye Exam Eye Exam: PERRL - ENT Exam ENT Exam: Mucous Membranes Dry - Neck Exam Neck Exam: absent: Lymphadenopathy - Respiratory Exam Respiratory Exam: Decreased Breath Sounds - Cardiovascular Exam Cardiovascular Exam: REGULAR RHYTHM - GI/Abdominal Exam GI & Abdominal Exam: Distended, Soft - Rectal Exam Rectal Exam: Deferred - Exam Exam: NORMAL INSPECTION - Extremities Exam Extremities Exam: absent: Pedal Edema - Back Exam Back Exam: absent: CVA tenderness (L), CVA tenderness (R) - Neurological Exam Neurological Exam: Alert, Awake, Oriented x3 - Psychiatric Exam Psychiatric exam: Normal Mood - Skin Skin Exam: Dry Assessment and Plan (1) Cellulitis Status: Acute (2) Morbid obesity with BMI of 50.0-59.9, adult Status: Chronic (3) Leg ulcer Status: Acute (4) MDD (major depressive disorder) Status: Acute (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 - Assessment and Plan (Free Text) Assessment: cont iv rx and wound care for OR in am
[2018-02-21 17:01] LABS: BASO # 0.1 K/uL (0.0-0.2); BASO % 1.1 % (0.0-2.0); EOS # 0.3 K/uL (0.0-0.7); EOS % 5.5 % (0.0-4.0); HEMOGLOBIN 11.2 g/dL (12.0-18.0); LYMPH # 1.8 K/uL (1.0-4.3); LYMPH % 27.7 % (20.0-40.0); MEAN CELL VOLUME 79.1 fL (80.0-94.0); MEAN CORPUSCULAR HEMOGLOBIN 25.8 pg (27.0-31.0); MEAN CORPUSCULAR HGB CONC 32.6 g/dL (33.0-37.0); MEAN PLATELET VOLUME 10.4 fL (7.2-11.7); MONO # 0.5 K/uL (0.0-0.8); MONO % 8.6 % (0.0-10.0); NEUT # 3.6 K/uL (1.8-7.0); NEUT % 57.1 % (50.0-75.0); NRBC % 0.1 % (0.0-2.0); RBC 4.33 Mil/uL (4.40-5.90); RED CELL DISTRIBUTION WIDTH 17.1 % (11.5-14.5); WHITE BLOOD COUNT 6.3 K/uL (4.8-10.8)
[2018-02-21 17:14] LABS: ALB/GLOB RATIO 0.9 (1.0-2.1); ALBUMIN 3.7 g/dL (3.5-5.0); ALT/SGPT 11 U/L (21-72); AST/SGOT 19 U/L (17-59); BLOOD UREA NITROGEN 21 mg/dL (9-20); CALCIUM 8.8 mg/dl (8.6-10.4); GFR AFRICAN-AMERICAN > 60; GFR NON-AFRICAN AMERICAN 57
--- NOTE | 2018-02-21 17:26 | CP.PCM.PN ---
Subjective - Date & Time of Evaluation Date of Evaluation: 02/21/18 Time of Evaluation: 19:35 - Subjective Subjective: PT SEEN AND EXAMINED, IS COMPLIANING OF ITCHING IN GROIN AREA, POSITIVE LOW BACK PAIN, DENIES ANY NUASEA, VOMITTING, PT IS FOR OR ON THURSDAY DUE TO LEFT LEG ULCER, HOLD COUMADIN Objective - Vital Signs/Intake and Output Vital Signs (last 24 hours): Temp Pulse Resp BP Pulse Ox 98.2 F 76 20 146/74 96 02/21/18 09:58 02/21/18 09:58 02/21/18 09:58 02/21/18 10:10 02/21/18 09:58 Intake and Output: 02/21/18 02/21/18 06:59 18:59 Intake Total 100 1320 Output Total 200 800 Balance -100 520 - Medications Medications: Current Medications Acetaminophen (Tylenol 325mg Tab) 650 mg PO Q6 PRN PRN Reason: Headache Docusate Sodium (Colace) 100 mg PO DAILY [facility] Last Admin: 02/21/18 10:10 Dose: 100 mg Enoxaparin Sodium (Lovenox) 40 mg SC DAILY [facility] Last Admin: 02/21/18 10:09 Dose: 40 mg Furosemide (Lasix) 40 mg PO BID [facility] Last Admin: 02/21/18 10:10 Dose: 40 mg Hydralazine HCl (Apresoline) 25 mg PO Q8 [facility] Last Admin: 02/21/18 14:24 Dose: 25 mg Vancomycin/Sodium Chloride (Vancomycin 1 Gm/Ns 200 Ml) 1 gm in 200 mls @ 133 mls/hr IVPB Q12H [facility] PRN Reason: Protocol Stop: 02/23/18 16:01 Last Admin: 02/21/18 16:20 Dose: 133 mls/hr Colistimethate Sodium 150 mg/ (Sodium Chloride) 100 mls @ 200 mls/hr IV Q12H [facility] PRN Reason: Protocol Last Admin: 02/21/18 06:01 Dose: 200 mls/hr Meropenem 500 mg/ Sodium (Chloride) 100 mls @ 100 mls/hr IVPB Q8 [facility] PRN Reason: Protocol Last Admin: 02/21/18 14:25 Dose: 100 mls/hr Insulin Human Regular (Novolin R) 0 unit SC ACHS [facility] PRN Reason: Protocol Last Admin: 02/21/18 17:12 Dose: Not Given Levothyroxine Sodium (Synthroid) 75 mcg PO ACB [facility] Last Admin: 02/21/18 08:30 Dose: 75 mcg Lidocaine (Lidoderm) 1 ea TD DAILY [facility] Metformin HCl (Glucophage Xr) 500 mg PO BID [facility] Last Admin: 02/21/18 10:09 Dose: 500 mg Montelukast Sodium (Singulair) 10 mg PO HS [facility] Last Admin: 02/20/18 21:28 Dose: 10 mg Nystatin (Nystop Topical Powder) 1 applic TOP BID [facility] Oxycodone HCl (Oxycontin Extended Release Tab) 80 mg PO Q6 [facility] Last Admin: 02/21/18 12:20 Dose: 80 mg Oxycodone/Acetaminophen (Percocet 5/325 Mg Tab) 2 tab PO Q4H PRN PRN Reason: Pain, moderate (4-7) Last Admin: 02/21/18 14:22 Dose: 2 tab Potassium Chloride (K-Dur 20 Meq Er Tab) 20 meq PO DAILY [facility] Last Admin: 02/21/18 10:10 Dose: 20 meq Fluticasone/Salmeterol (Advair Diskus 250/50) 1 puff IH RQ12 [facility] Last Admin: 02/21/18 08:33 Dose: 1 puff - Labs Labs: 02/21/18 16:53 02/21/18 16:53 PT 16.9 SECONDS (9.7-12.2) H 02/21/18 08:08 INR 1.5 02/21/18 08:08 APTT 31 SECONDS (21-34) 02/16/18 10:26 Assessment and Plan (1) Cellulitis Status: Acute (2) Morbid obesity with BMI of 50.0-59.9, adult Status: Chronic (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
--- NOTE | 2018-02-21 17:44 | CP.PCM.PN ---
Subjective - Date & Time of Evaluation Date of Evaluation: 02/21/18 Time of Evaluation: 18:45 - Subjective Subjective: PT SEEN AND EXAMINED, IS COMPLIANING OF ITCHING IN GROIN AREA, POSITIVE LOW BACK PAIN, DENIES ANY NUASEA, VOMITTING, PT IS FOR OR ON THURSDAY DUE TO LEFT LEG ULCER, HOLD COUMADIN Objective - Vital Signs/Intake and Output Vital Signs (last 24 hours): Temp Pulse Resp BP Pulse Ox 98.0 F 72 20 114/76 95 02/21/18 15:00 02/21/18 15:00 02/21/18 15:00 02/21/18 15:00 02/21/18 15:00 Intake and Output: 02/21/18 02/21/18 06:59 18:59 Intake Total 100 1320 Output Total 200 800 Balance -100 520 - Medications Medications: Current Medications Acetaminophen (Tylenol 325mg Tab) 650 mg PO Q6 PRN PRN Reason: Headache Docusate Sodium (Colace) 100 mg PO DAILY [facility] Last Admin: 02/21/18 10:10 Dose: 100 mg Enoxaparin Sodium (Lovenox) 40 mg SC DAILY [facility] Last Admin: 02/21/18 10:09 Dose: 40 mg Furosemide (Lasix) 40 mg PO BID [facility] Last Admin: 02/21/18 10:10 Dose: 40 mg Hydralazine HCl (Apresoline) 25 mg PO Q8 [facility] Last Admin: 02/21/18 14:24 Dose: 25 mg Vancomycin/Sodium Chloride (Vancomycin 1 Gm/Ns 200 Ml) 1 gm in 200 mls @ 133 mls/hr IVPB Q12H [facility] PRN Reason: Protocol Stop: 02/23/18 16:01 Last Admin: 02/21/18 16:20 Dose: 133 mls/hr Colistimethate Sodium 150 mg/ (Sodium Chloride) 100 mls @ 200 mls/hr IV Q12H [facility] PRN Reason: Protocol Last Admin: 02/21/18 06:01 Dose: 200 mls/hr Meropenem 500 mg/ Sodium (Chloride) 100 mls @ 100 mls/hr IVPB Q8 [facility] PRN Reason: Protocol Last Admin: 02/21/18 14:25 Dose: 100 mls/hr Insulin Human Regular (Novolin R) 0 unit SC ACHS [facility] PRN Reason: Protocol Last Admin: 02/21/18 17:12 Dose: Not Given Levothyroxine Sodium (Synthroid) 75 mcg PO ACB [facility] Last Admin: 02/21/18 08:30 Dose: 75 mcg Lidocaine (Lidoderm) 1 ea TD DAILY [facility] Metformin HCl (Glucophage Xr) 500 mg PO BID [facility] Last Admin: 02/21/18 17:24 Dose: 500 mg Montelukast Sodium (Singulair) 10 mg PO HS [facility] Last Admin: 02/20/18 21:28 Dose: 10 mg Nystatin (Nystop Topical Powder) 1 applic TOP BID [facility] Oxycodone HCl (Oxycontin Extended Release Tab) 80 mg PO Q6 [facility] Last Admin: 02/21/18 12:20 Dose: 80 mg Oxycodone/Acetaminophen (Percocet 5/325 Mg Tab) 2 tab PO Q4H [facility] PRN Reason: Pain, moderate (4-7) Last Admin: 02/21/18 14:22 Dose: 2 tab Potassium Chloride (K-Dur 20 Meq Er Tab) 20 meq PO DAILY [facility] Last Admin: 02/21/18 10:10 Dose: 20 meq Fluticasone/Salmeterol (Advair Diskus 250/50) 1 puff IH RQ12 [facility] Last Admin: 02/21/18 08:33 Dose: 1 puff - Labs Labs: 02/21/18 16:53 02/21/18 16:53 PT 16.9 SECONDS (9.7-12.2) H 02/21/18 08:08 INR 1.5 02/21/18 08:08 APTT 31 SECONDS (21-34) 02/16/18 10:26 Assessment and Plan (1) Cellulitis Status: Acute (2) Morbid obesity with BMI of 50.0-59.9, adult Status: Chronic (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
[2018-02-22] MEDS: oxyCODONE 80 mg ER Tab (oxyCONTIN) PO SCH ×4 (00:07→17:39)
[2018-02-22] MEDS: Oxycodone/Acetaminophen 5/325 mg Tab PO PRN ×4 (02:36→21:45)
[2018-02-22] MEDS: Vancomycin 1 gm/NS 200 ml 1 GM/200 ML BAG IVPB SCH ×2 (04:55→16:26)
[2018-02-22] MEDS: Meropenem 500 MG in Sodium Chloride 0.9% 100 ML IVPB SCH ×3 (05:46→21:26)
[2018-02-22] MEDS: Fluticasone-Salmeterol 250-50mcg Diskus IH SCH ×2 (07:43→19:37)
[2018-02-22 08:10] LABS: INR 1.3; PROTHROMBIN TIME 14.9 SECONDS (9.7-12.2)
[2018-02-22] MEDS: (Novolin R) Insulin Human Regular 100 units/ml vial SC SCH ×4 (08:55→21:27)
[2018-02-22] MEDS: Levothyroxine 75 MCG TAB PO SCH (09:06)
[2018-02-22] MEDS: Lidocaine 5% Patch TD SCH (09:06)
[2018-02-22] MEDS ORDERED: Lidocaine 1% Inj (20ml) INFIL ONE (09:46)
[2018-02-22] MEDS ORDERED: Bupivacaine 0.5% Inj(30mL) IJ ONE (09:46)
[2018-02-22] MEDS ORDERED: Propofol 10 mg/ml Inj (20 ML) ONE ×2 (10:15→10:24)
[2018-02-22] MEDS ORDERED: Midazolam 2 MG/2 ML VIAL ONE (10:15)
[2018-02-22] MEDS ORDERED: Lidocaine Hydrochloride 5 ML INJ ONE (10:23)
[2018-02-22] MEDS ORDERED: Bacitracin 150,000 UNIT in Sodium Chloride 0.9% Irrig 3,000 ML IR SCH (10:30)
--- NOTE | 2018-02-22 11:05 | PCM.SURG1 ---
Surgeon's Initial Post Op Note - Surgeon's Notes Surgeon: Dr. Laguna Coyote Hunter: Saurabh Chaparro PGY1 Type of Anesthesia: IV Sedation, Local (15cc 0.5% marcaine plain) Anesthesia Administered By: Nikolai ARGUELLO Pre-Operative Diagnosis: Left leg infected wounds Operative Findings: See operative report Post-Operative Diagnosis: Same Operation Performed: Left leg wound debridement Specimen/Specimens Removed: Left leg wound culture Estimated Blood Loss: EBL {In ML}: 1 Blood Products Given: N/A Drains Used: No Drains Post-Op Condition: Good Date of Surgery/Procedure: 02/22/18 Time of Surgery/Procedure: 11:04
[2018-02-22] MEDS ORDERED: HYDROmorphone 0.5 mg/0.5 ml ISec ONE (11:10)
[2018-02-22] MEDS ORDERED: HYDROmorphone 0.5 mg/0.5 ml ISec IVP PRN (11:10)
[2018-02-22] MEDS: Potassium Chloride 20 mEq ER Tab PO SCH (11:50)
--- NOTE | 2018-02-22 12:22 | CP.PCM.PN ---
Subjective - Date & Time of Evaluation Date of Evaluation: 02/22/18 Time of Evaluation: 06:00 - Subjective Subjective: s/p debridement of infected wounds left leg has MDRO from wound iv rx to cont Objective - Vital Signs/Intake and Output Vital Signs (last 24 hours): Temp Pulse Resp BP Pulse Ox 98.1 F 74 14 120/70 97 02/22/18 11:20 02/22/18 11:20 02/22/18 11:20 02/22/18 11:20 02/22/18 11:20 Intake and Output: 02/22/18 02/22/18 06:59 18:59 Intake Total 200 Balance 200 - Medications Medications: Current Medications Acetaminophen (Tylenol 325mg Tab) 650 mg PO Q6 PRN PRN Reason: Headache Docusate Sodium (Colace) 100 mg PO DAILY [facility] Last Admin: 02/22/18 11:50 Dose: Not Given Enoxaparin Sodium (Lovenox) 40 mg SC DAILY [facility] Last Admin: 02/21/18 10:09 Dose: 40 mg Furosemide (Lasix) 40 mg PO BID [facility] Last Admin: 02/22/18 11:50 Dose: Not Given Hydralazine HCl (Apresoline) 25 mg PO Q8 [facility] Last Admin: 02/22/18 05:39 Dose: 25 mg Hydromorphone HCl (Dilaudid) 0.5 mg IVP Q5M PRN PRN Reason: Pain, severe (8-10) Stop: 02/22/18 13:10 Vancomycin/Sodium Chloride (Vancomycin 1 Gm/Ns 200 Ml) 1 gm in 200 mls @ 133 mls/hr IVPB Q12H [facility] PRN Reason: Protocol Stop: 02/23/18 16:01 Last Admin: 02/22/18 04:55 Dose: Not Given Colistimethate Sodium 150 mg/ (Sodium Chloride) 100 mls @ 200 mls/hr IV Q12H [facility] PRN Reason: Protocol Last Admin: 02/22/18 05:37 Dose: 200 mls/hr Meropenem 500 mg/ Sodium (Chloride) 100 mls @ 100 mls/hr IVPB Q8 [facility] PRN Reason: Protocol Last Admin: 02/22/18 05:46 Dose: 100 mls/hr Insulin Human Regular (Novolin R) 0 unit SC ACHS [facility] PRN Reason: Protocol Last Admin: 02/22/18 12:10 Dose: Not Given Levothyroxine Sodium (Synthroid) 75 mcg PO ACB [facility] Last Admin: 02/22/18 09:06 Dose: 75 mcg Lidocaine (Lidoderm) 1 ea TD DAILY [facility] Last Admin: 02/22/18 09:06 Dose: 1 ea Metformin HCl (Glucophage Xr) 500 mg PO BID [facility] Last Admin: 02/22/18 11:50 Dose: Not Given Montelukast Sodium (Singulair) 10 mg PO HS [facility] Last Admin: 02/21/18 21:30 Dose: 10 mg Nystatin (Nystop Topical Powder) 1 applic TOP BID [facility] Last Admin: 02/22/18 11:51 Dose: Not Given Oxycodone HCl (Oxycontin Extended Release Tab) 80 mg PO Q6 [facility] Last Admin: 02/22/18 12:16 Dose: 80 mg Oxycodone/Acetaminophen (Percocet 5/325 Mg Tab) 2 tab PO Q4H PRN PRN Reason: Pain, moderate (4-7) Last Admin: 02/22/18 11:40 Dose: 2 tab Potassium Chloride (K-Dur 20 Meq Er Tab) 20 meq PO DAILY [facility] Last Admin: 02/22/18 11:50 Dose: Not Given Fluticasone/Salmeterol (Advair Diskus 250/50) 1 puff IH RQ12 [facility] Last Admin: 02/22/18 07:43 Dose: 1 puff - Labs Labs: 02/21/18 16:53 02/21/18 16:53 PT 14.9 SECONDS (9.7-12.2) H 02/22/18 07:57 INR 1.3 02/22/18 07:57 APTT 31 SECONDS (21-34) 02/16/18 10:26 - Constitutional Appears: Non-toxic, Chronically Ill - Head Exam Head Exam: NORMOCEPHALIC - Eye Exam Eye Exam: absent: Scleral icterus - ENT Exam ENT Exam: Mucous Membranes Dry - Neck Exam Neck Exam: absent: Lymphadenopathy - Respiratory Exam Respiratory Exam: Decreased Breath Sounds - Cardiovascular Exam Cardiovascular Exam: REGULAR RHYTHM - GI/Abdominal Exam GI & Abdominal Exam: Distended, Soft Assessment and Plan (1) Cellulitis Status: Acute (2) Morbid obesity with BMI of 50.0-59.9, adult Status: Chronic (3) Leg ulcer Status: Acute (4) MDD (major depressive disorder) Status: Acute (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
--- NOTE | 2018-02-22 13:05 | CP.PCM.PN ---
Subjective - Date & Time of Evaluation Date of Evaluation: 02/22/18 Time of Evaluation: 19:00 - Subjective Subjective: pt seen and examined. s/p debridement of infected wounds left leg has MDRO from wound iv rx to cont on antibiotics, wound care Objective - Vital Signs/Intake and Output Vital Signs (last 24 hours): Temp Pulse Resp BP Pulse Ox 98.1 F 74 14 120/70 97 02/22/18 11:20 02/22/18 11:20 02/22/18 11:20 02/22/18 11:20 02/22/18 11:20 Intake and Output: 02/22/18 02/22/18 06:59 18:59 Intake Total 200 Balance 200 - Medications Medications: Current Medications Acetaminophen (Tylenol 325mg Tab) 650 mg PO Q6 PRN PRN Reason: Headache Docusate Sodium (Colace) 100 mg PO DAILY [facility] Last Admin: 02/22/18 11:50 Dose: Not Given Enoxaparin Sodium (Lovenox) 40 mg SC DAILY [facility] Last Admin: 02/21/18 10:09 Dose: 40 mg Furosemide (Lasix) 40 mg PO BID [facility] Last Admin: 02/22/18 11:50 Dose: Not Given Hydralazine HCl (Apresoline) 25 mg PO Q8 [facility] Last Admin: 02/22/18 05:39 Dose: 25 mg Hydromorphone HCl (Dilaudid) 0.5 mg IVP Q5M PRN PRN Reason: Pain, severe (8-10) Stop: 02/22/18 13:10 Vancomycin/Sodium Chloride (Vancomycin 1 Gm/Ns 200 Ml) 1 gm in 200 mls @ 133 mls/hr IVPB Q12H [facility] PRN Reason: Protocol Stop: 02/23/18 16:01 Last Admin: 02/22/18 04:55 Dose: Not Given Colistimethate Sodium 150 mg/ (Sodium Chloride) 100 mls @ 200 mls/hr IV Q12H [facility] PRN Reason: Protocol Last Admin: 02/22/18 05:37 Dose: 200 mls/hr Meropenem 500 mg/ Sodium (Chloride) 100 mls @ 100 mls/hr IVPB Q8 [facility] PRN Reason: Protocol Last Admin: 02/22/18 05:46 Dose: 100 mls/hr Insulin Human Regular (Novolin R) 0 unit SC ACHS [facility] PRN Reason: Protocol Last Admin: 02/22/18 12:10 Dose: Not Given Levothyroxine Sodium (Synthroid) 75 mcg PO ACB [facility] Last Admin: 02/22/18 09:06 Dose: 75 mcg Lidocaine (Lidoderm) 1 ea TD DAILY [facility] Last Admin: 02/22/18 09:06 Dose: 1 ea Metformin HCl (Glucophage Xr) 500 mg PO BID [facility] Last Admin: 02/22/18 11:50 Dose: Not Given Montelukast Sodium (Singulair) 10 mg PO HS [facility] Last Admin: 02/21/18 21:30 Dose: 10 mg Nystatin (Nystop Topical Powder) 1 applic TOP BID [facility] Last Admin: 02/22/18 11:51 Dose: Not Given Oxycodone HCl (Oxycontin Extended Release Tab) 80 mg PO Q6 [facility] Last Admin: 02/22/18 12:16 Dose: 80 mg Oxycodone/Acetaminophen (Percocet 5/325 Mg Tab) 2 tab PO Q4H PRN PRN Reason: Pain, moderate (4-7) Last Admin: 02/22/18 11:40 Dose: 2 tab Potassium Chloride (K-Dur 20 Meq Er Tab) 20 meq PO DAILY [facility] Last Admin: 02/22/18 11:50 Dose: Not Given Fluticasone/Salmeterol (Advair Diskus 250/50) 1 puff IH RQ12 [facility] Last Admin: 02/22/18 07:43 Dose: 1 puff - Labs Labs: 02/21/18 16:53 02/21/18 16:53 PT 14.9 SECONDS (9.7-12.2) H 02/22/18 07:57 INR 1.3 02/22/18 07:57 APTT 31 SECONDS (21-34) 02/16/18 10:26 - Constitutional Appears: No Acute Distress - Head Exam Head Exam: ATRAUMATIC, NORMAL INSPECTION, NORMOCEPHALIC - Eye Exam Eye Exam: EOMI, Normal appearance, PERRL Pupil Exam: NORMAL ACCOMODATION, PERRL - Respiratory Exam Respiratory Exam: Clear to Ausculation Bilateral, NORMAL BREATHING PATTERN - Cardiovascular Exam Cardiovascular Exam: REGULAR RHYTHM, +S1, +S2. absent: Murmur - GI/Abdominal Exam GI & Abdominal Exam: Soft, Normal Bowel Sounds. absent: Tenderness Assessment and Plan (1) Cellulitis Assessment & Plan: s/p debribement antibiotics wound care Status: Acute (2) Morbid obesity with BMI of 50.0-59.9, adult Status: Chronic (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
[2018-02-22 17:13] VITALS: RESP 20
[2018-02-22 22:16] LABS: BASO # 0.1 K/uL (0.0-0.2); BASO % 1.1 % (0.0-2.0); EOS # 0.3 K/uL (0.0-0.7); EOS % 4.8 % (0.0-4.0); HEMOGLOBIN 11.1 g/dL (12.0-18.0); LYMPH # 1.7 K/uL (1.0-4.3); MEAN CELL VOLUME 79.4 fL (80.0-94.0); MEAN CORPUSCULAR HEMOGLOBIN 25.8 pg (27.0-31.0); MEAN CORPUSCULAR HGB CONC 32.5 g/dL (33.0-37.0); MONO # 0.6 K/uL (0.0-0.8); MONO % 8.8 % (0.0-10.0); NEUT # 3.8 K/uL (1.8-7.0); NEUT % 59.3 % (50.0-75.0); RBC 4.31 Mil/uL (4.40-5.90); RED CELL DISTRIBUTION WIDTH 16.9 % (11.5-14.5); WHITE BLOOD COUNT 6.5 K/uL (4.8-10.8)
[2018-02-22 22:32] LABS: ALBUMIN 3.8 g/dL (3.5-5.0); ALT/SGPT 18 U/L (21-72); AST/SGOT 19 U/L (17-59); BLOOD UREA NITROGEN 21 mg/dL (9-20); GFR AFRICAN-AMERICAN > 60; GFR NON-AFRICAN AMERICAN 52
[2018-02-23] MEDS: oxyCODONE 80 mg ER Tab (oxyCONTIN) PO SCH ×4 (00:18→18:44)
[2018-02-23] MEDS: Oxycodone/Acetaminophen 5/325 mg Tab PO PRN ×5 (03:40→22:14)
[2018-02-23] MEDS: Vancomycin 1 gm/NS 200 ml 1 GM/200 ML BAG IVPB SCH ×2 (03:45→16:29)
[2018-02-23] MEDS: Meropenem 500 MG in Sodium Chloride 0.9% 100 ML IVPB SCH ×3 (05:18→21:18)
[2018-02-23] MEDS: (Novolin R) Insulin Human Regular 100 units/ml vial SC SCH ×4 (08:18→22:09)
[2018-02-23] MEDS: Fluticasone-Salmeterol 250-50mcg Diskus IH SCH ×2 (08:40→19:19)
[2018-02-23] MEDS: Levothyroxine 75 MCG TAB PO SCH (08:54)
[2018-02-23] MEDS: Potassium Chloride 20 mEq ER Tab PO SCH (10:23)
[2018-02-23] MEDS: Lidocaine 5% Patch TD SCH (10:23)
--- NOTE | 2018-02-23 12:02 | CP.PCM.PN ---
Subjective - Date & Time of Evaluation Date of Evaluation: 02/23/18 Time of Evaluation: 08:00 - Subjective Subjective: afeb on vanco/ merrem/ colistin s/p I and D Objective - Vital Signs/Intake and Output Vital Signs (last 24 hours): Temp Pulse Resp BP Pulse Ox 98.4 F 72 20 139/69 96 02/23/18 08:00 02/23/18 08:00 02/23/18 08:00 02/23/18 10:23 02/23/18 08:00 Intake and Output: 02/23/18 02/23/18 06:59 18:59 Intake Total 1300 Output Total 800 Balance 500 - Medications Medications: Current Medications Acetaminophen (Tylenol 325mg Tab) 650 mg PO Q6 PRN PRN Reason: Headache Docusate Sodium (Colace) 100 mg PO DAILY [facility] Last Admin: 02/23/18 10:23 Dose: 100 mg Enoxaparin Sodium (Lovenox) 40 mg SC DAILY [facility] Last Admin: 02/21/18 10:09 Dose: 40 mg Furosemide (Lasix) 40 mg PO BID [facility] Last Admin: 02/23/18 10:23 Dose: 40 mg Hydralazine HCl (Apresoline) 25 mg PO Q8 [facility] Last Admin: 02/23/18 06:09 Dose: 25 mg Vancomycin/Sodium Chloride (Vancomycin 1 Gm/Ns 200 Ml) 1 gm in 200 mls @ 133 mls/hr IVPB Q12H [facility] PRN Reason: Protocol Stop: 02/23/18 16:01 Last Admin: 02/23/18 03:45 Dose: 133 mls/hr Colistimethate Sodium 150 mg/ (Sodium Chloride) 100 mls @ 200 mls/hr IV Q12H [facility] PRN Reason: Protocol Last Admin: 02/23/18 06:35 Dose: 200 mls/hr Meropenem 500 mg/ Sodium (Chloride) 100 mls @ 100 mls/hr IVPB Q8 [facility] PRN Reason: Protocol Last Admin: 02/23/18 05:18 Dose: 100 mls/hr Insulin Human Regular (Novolin R) 0 unit SC ACHS [facility] PRN Reason: Protocol Last Admin: 02/23/18 08:18 Dose: Not Given Levothyroxine Sodium (Synthroid) 75 mcg PO ACB [facility] Last Admin: 02/23/18 08:54 Dose: 75 mcg Lidocaine (Lidoderm) 1 ea TD DAILY [facility] Last Admin: 02/23/18 10:23 Dose: 1 ea Metformin HCl (Glucophage Xr) 500 mg PO BID [facility] Last Admin: 02/23/18 10:26 Dose: Not Given Montelukast Sodium (Singulair) 10 mg PO HS [facility] Last Admin: 02/22/18 21:25 Dose: 10 mg Nystatin (Nystop Topical Powder) 1 applic TOP BID [facility] Last Admin: 02/22/18 21:26 Dose: Not Given Oxycodone HCl (Oxycontin Extended Release Tab) 80 mg PO Q6 [facility] Last Admin: 02/23/18 06:09 Dose: 80 mg Oxycodone/Acetaminophen (Percocet 5/325 Mg Tab) 2 tab PO Q4H PRN PRN Reason: Pain, moderate (4-7) Last Admin: 02/23/18 09:08 Dose: 2 tab Potassium Chloride (K-Dur 20 Meq Er Tab) 20 meq PO DAILY [facility] Last Admin: 02/23/18 10:23 Dose: 20 meq Fluticasone/Salmeterol (Advair Diskus 250/50) 1 puff IH RQ12 [facility] Last Admin: 02/23/18 08:40 Dose: 1 puff - Labs Labs: 02/22/18 22:11 02/22/18 22:11 PT 14.9 SECONDS (9.7-12.2) H 02/22/18 07:57 INR 1.3 02/22/18 07:57 APTT 31 SECONDS (21-34) 02/16/18 10:26 - Constitutional Appears: Non-toxic - Head Exam Head Exam: NORMOCEPHALIC - Eye Exam Eye Exam: PERRL - ENT Exam ENT Exam: Mucous Membranes Dry - Neck Exam Neck Exam: absent: Lymphadenopathy - Respiratory Exam Respiratory Exam: Decreased Breath Sounds - Cardiovascular Exam Cardiovascular Exam: REGULAR RHYTHM - GI/Abdominal Exam GI & Abdominal Exam: Distended - Rectal Exam Rectal Exam: Deferred - Exam Exam: NORMAL INSPECTION - Back Exam Back Exam: absent: CVA tenderness (L), CVA tenderness (R) - Neurological Exam Neurological Exam: Alert, Awake Assessment and Plan (1) Cellulitis Status: Acute (2) Morbid obesity with BMI of 50.0-59.9, adult Status: Chronic (3) Leg ulcer Status: Acute (4) MDD (major depressive disorder) Status: Acute (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
--- NOTE | 2018-02-23 16:51 | CP.PCM.PN ---
Subjective - Date & Time of Evaluation Date of Evaluation: 02/23/18 Time of Evaluation: 18:50 - Subjective Subjective: pt seen and examined. s/p debridement of infected wounds left leg has MDRO from wound iv rx to cont on antibiotics, wound care Objective - Vital Signs/Intake and Output Vital Signs (last 24 hours): Temp Pulse Resp BP Pulse Ox 98.4 F 72 20 139/69 96 02/23/18 08:00 02/23/18 08:00 02/23/18 08:00 02/23/18 10:23 02/23/18 08:00 Intake and Output: 02/23/18 02/23/18 06:59 18:59 Intake Total 1300 Output Total 800 Balance 500 - Medications Medications: Current Medications Acetaminophen (Tylenol 325mg Tab) 650 mg PO Q6 PRN PRN Reason: Headache Docusate Sodium (Colace) 100 mg PO DAILY [facility] Last Admin: 02/23/18 10:23 Dose: 100 mg Enoxaparin Sodium (Lovenox) 40 mg SC DAILY [facility] Last Admin: 02/21/18 10:09 Dose: 40 mg Furosemide (Lasix) 40 mg PO BID [facility] Last Admin: 02/23/18 10:23 Dose: 40 mg Hydralazine HCl (Apresoline) 25 mg PO Q8 [facility] Last Admin: 02/23/18 14:17 Dose: 25 mg Colistimethate Sodium 150 mg/ (Sodium Chloride) 100 mls @ 200 mls/hr IV Q12H [facility] PRN Reason: Protocol Last Admin: 02/23/18 06:35 Dose: 200 mls/hr Meropenem 500 mg/ Sodium (Chloride) 100 mls @ 100 mls/hr IVPB Q8 [facility] PRN Reason: Protocol Last Admin: 02/23/18 14:17 Dose: 100 mls/hr Insulin Human Regular (Novolin R) 0 unit SC ACHS [facility] PRN Reason: Protocol Last Admin: 02/23/18 12:09 Dose: Not Given Levothyroxine Sodium (Synthroid) 75 mcg PO ACB [facility] Last Admin: 02/23/18 08:54 Dose: 75 mcg Lidocaine (Lidoderm) 1 ea TD DAILY [facility] Last Admin: 02/23/18 10:23 Dose: 1 ea Metformin HCl (Glucophage Xr) 500 mg PO BID [facility] Last Admin: 02/23/18 10:26 Dose: Not Given Montelukast Sodium (Singulair) 10 mg PO HS [facility] Last Admin: 02/22/18 21:25 Dose: 10 mg Nystatin (Nystop Topical Powder) 1 applic TOP BID [facility] Last Admin: 02/23/18 12:09 Dose: 1 applic Oxycodone HCl (Oxycontin Extended Release Tab) 80 mg PO Q6 [facility] Last Admin: 02/23/18 12:14 Dose: 80 mg Oxycodone/Acetaminophen (Percocet 5/325 Mg Tab) 2 tab PO Q4H PRN PRN Reason: Pain, moderate (4-7) Last Admin: 02/23/18 13:14 Dose: 2 tab Potassium Chloride (K-Dur 20 Meq Er Tab) 20 meq PO DAILY [facility] Last Admin: 02/23/18 10:23 Dose: 20 meq Fluticasone/Salmeterol (Advair Diskus 250/50) 1 puff IH RQ12 [facility] Last Admin: 02/23/18 08:40 Dose: 1 puff - Labs Labs: 02/22/18 22:11 02/22/18 22:11 PT 14.9 SECONDS (9.7-12.2) H 02/22/18 07:57 INR 1.3 02/22/18 07:57 APTT 31 SECONDS (21-34) 02/16/18 10:26 Assessment and Plan (1) Cellulitis Status: Acute (2) Morbid obesity with BMI of 50.0-59.9, adult Status: Chronic (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
[2018-02-24] MEDS: oxyCODONE 80 mg ER Tab (oxyCONTIN) PO SCH ×4 (00:07→17:23)
[2018-02-24] MEDS: Oxycodone/Acetaminophen 5/325 mg Tab PO PRN ×4 (05:20→20:48)
[2018-02-24] MEDS: Meropenem 500 MG in Sodium Chloride 0.9% 100 ML IVPB SCH ×3 (05:30→21:32)
[2018-02-24] MEDS: Fluticasone-Salmeterol 250-50mcg Diskus IH SCH ×2 (07:08→19:23)
[2018-02-24] MEDS: (Novolin R) Insulin Human Regular 100 units/ml vial SC SCH ×4 (08:34→21:33)
[2018-02-24] MEDS: Levothyroxine 75 MCG TAB PO SCH (08:58)
[2018-02-24] MEDS: Potassium Chloride 20 mEq ER Tab PO SCH (10:35)
[2018-02-24] MEDS: Lidocaine 5% Patch TD SCH (10:35)
--- NOTE | 2018-02-24 15:22 | CP.PCM.PN ---
<Nikki Mancilla - Last Filed: 02/24/18 15:19> Subjective - Date & Time of Evaluation Date of Evaluation: 02/24/18 Time of Evaluation: 15:20 - Subjective Subjective: Podiatry Progress Note - Dr. Laguna 57M seen and evaluated at bedside 2 days s/p wound debridement of left leg. Patient is resting comfortably in bed, in NAD, AA0x3. Patient denies acute events overnight. Patient reports continued, moderate pain to left leg wounds. Denies N/V/F/D/SOB/MABRY/dizziness. Dressing remains clean,dry,intact. Objective - Vital Signs/Intake and Output Vital Signs (last 24 hours): Temp Pulse Resp BP Pulse Ox 98.2 F 71 20 128/79 97 02/24/18 08:37 02/24/18 08:37 02/24/18 08:37 02/24/18 10:35 02/24/18 08:37 Intake and Output: 02/24/18 02/24/18 06:59 18:59 Intake Total 960 Output Total 2350 400 Balance -1390 -400 - Medications Medications: Current Medications Acetaminophen (Tylenol 325mg Tab) 650 mg PO Q6 PRN PRN Reason: Headache Docusate Sodium (Colace) 100 mg PO DAILY [facility] Last Admin: 02/24/18 10:35 Dose: 100 mg Enoxaparin Sodium (Lovenox) 40 mg SC DAILY [facility] Last Admin: 02/21/18 10:09 Dose: 40 mg Furosemide (Lasix) 40 mg PO BID [facility] Last Admin: 02/24/18 10:35 Dose: 40 mg Hydralazine HCl (Apresoline) 25 mg PO Q8 [facility] Last Admin: 02/24/18 14:21 Dose: 25 mg Colistimethate Sodium 150 mg/ (Sodium Chloride) 100 mls @ 200 mls/hr IV Q12H [facility] PRN Reason: Protocol Last Admin: 02/24/18 06:43 Dose: 200 mls/hr Meropenem 500 mg/ Sodium (Chloride) 100 mls @ 100 mls/hr IVPB Q8 [facility] PRN Reason: Protocol Last Admin: 02/24/18 14:21 Dose: 100 mls/hr Insulin Human Regular (Novolin R) 0 unit SC ACHS [facility] PRN Reason: Protocol Last Admin: 02/24/18 12:21 Dose: Not Given Levothyroxine Sodium (Synthroid) 75 mcg PO ACB [facility] Last Admin: 02/24/18 08:58 Dose: 75 mcg Lidocaine (Lidoderm) 1 ea TD DAILY [facility] Last Admin: 02/24/18 10:35 Dose: 1 ea Metformin HCl (Glucophage Xr) 500 mg PO BID [facility] Last Admin: 02/24/18 10:36 Dose: Not Given Montelukast Sodium (Singulair) 10 mg PO HS [facility] Last Admin: 02/23/18 21:21 Dose: 10 mg Nystatin (Nystop Topical Powder) 1 applic TOP BID [facility] Last Admin: 02/24/18 10:41 Dose: 1 applic Oxycodone HCl (Oxycontin Extended Release Tab) 80 mg PO Q6 [facility] Last Admin: 02/24/18 13:06 Dose: 80 mg Oxycodone/Acetaminophen (Percocet 5/325 Mg Tab) 2 tab PO Q4H PRN PRN Reason: Pain, moderate (4-7) Last Admin: 02/24/18 15:07 Dose: 2 tab Potassium Chloride (K-Dur 20 Meq Er Tab) 20 meq PO DAILY [facility] Last Admin: 02/24/18 10:35 Dose: 20 meq Fluticasone/Salmeterol (Advair Diskus 250/50) 1 puff IH RQ12 [facility] Last Admin: 02/24/18 07:08 Dose: 1 puff - Labs Labs: 02/22/18 22:11 02/22/18 22:11 PT 14.9 SECONDS (9.7-12.2) H 02/22/18 07:57 INR 1.3 02/22/18 07:57 APTT 31 SECONDS (21-34) 02/16/18 10:26 - Constitutional Appears: Well, Non-toxic, No Acute Distress - Extremities Exam Additional comments: Dressing is clean dry and intact without strikethrough Elongated nails, thicken with hypertrophic, subungal debris, discolored nail plate to digits CFT < 3 seconds, temperature gradient Warm to Warm from knees to toes - Neurological Exam Neurological Exam: Alert, Awake, Oriented x3 - Psychiatric Exam Psychiatric exam: Normal Affect, Normal Mood Assessment and Plan - Assessment and Plan (Free Text) Assessment: 57 year old male at bedside 2 days s/p left leg wound debridement for chronic, nonhealing wounds Plan: patient evaluated and chart reviewed discussed in detail with attending Dr. Laguna labs and vitals reviewed; afebrile dressing to LLE remains c/d/i wound cx: MRSA cont. IV abx as per ID recommendations podiatry will continue to follow while patient remains in house <Casey Laguna - Last Filed: 02/24/18 18:37> Objective - Vital Signs/Intake and Output Vital Signs (last 24 hours): Temp Pulse Resp BP Pulse Ox 98.1 F 72 20 128/80 95 02/24/18 15:25 02/24/18 15:25 02/24/18 15:25 02/24/18 17:21 02/24/18 15:25 Intake and Output: 02/24/18 02/24/18 06:59 18:59 Intake Total 960 580 Output Total 2350 1300 Balance -1390 -720 - Medications Medications: Current Medications Acetaminophen (Tylenol 325mg Tab) 650 mg PO Q6 PRN PRN Reason: Headache Docusate Sodium (Colace) 100 mg PO DAILY [facility] Last Admin: 02/24/18 10:35 Dose: 100 mg Enoxaparin Sodium (Lovenox) 40 mg SC DAILY [facility] Last Admin: 02/21/18 10:09 Dose: 40 mg Furosemide (Lasix) 40 mg PO BID [facility] Last Admin: 02/24/18 17:21 Dose: 40 mg Hydralazine HCl (Apresoline) 25 mg PO Q8 [facility] Last Admin: 02/24/18 14:21 Dose: 25 mg Colistimethate Sodium 150 mg/ (Sodium Chloride) 100 mls @ 200 mls/hr IV Q12H [facility] PRN Reason: Protocol Last Admin: 02/24/18 17:32 Dose: 200 mls/hr Meropenem 500 mg/ Sodium (Chloride) 100 mls @ 100 mls/hr IVPB Q8 [facility] PRN Reason: Protocol Last Admin: 02/24/18 14:21 Dose: 100 mls/hr Insulin Human Regular (Novolin R) 0 unit SC ACHS [facility] PRN Reason: Protocol Last Admin: 02/24/18 17:23 Dose: Not Given Levothyroxine Sodium (Synthroid) 75 mcg PO ACB [facility] Last Admin: 02/24/18 08:58 Dose: 75 mcg Lidocaine (Lidoderm) 1 ea TD DAILY [facility] Last Admin: 02/24/18 10:35 Dose: 1 ea Metformin HCl (Glucophage Xr) 500 mg PO BID [facility] Last Admin: 02/24/18 17:22 Dose: 500 mg Montelukast Sodium (Singulair) 10 mg PO HS [facility] Last Admin: 02/23/18 21:21 Dose: 10 mg Nystatin (Nystop Topical Powder) 1 applic TOP BID [facility] Last Admin: 02/24/18 10:41 Dose: 1 applic Oxycodone HCl (Oxycontin Extended Release Tab) 80 mg PO Q6 [facility] Last Admin: 02/24/18 17:23 Dose: 80 mg Oxycodone/Acetaminophen (Percocet 5/325 Mg Tab) 2 tab PO Q4H PRN PRN Reason: Pain, moderate (4-7) Last Admin: 02/24/18 15:07 Dose: 2 tab Potassium Chloride (K-Dur 20 Meq Er Tab) 20 meq PO DAILY [facility] Last Admin: 02/24/18 10:35 Dose: 20 meq Fluticasone/Salmeterol (Advair Diskus 250/50) 1 puff IH RQ12 [facility] Last Admin: 02/24/18 07:08 Dose: 1 puff Warfarin Sodium (Coumadin) 12.5 mg PO 1800 [facility] Stop: 02/25/18 18:01 - Labs Labs: 02/22/18 22:11 02/22/18 22:11 PT 14.9 SECONDS (9.7-12.2) H 02/22/18 07:57 INR 1.3 02/22/18 07:57 APTT 31 SECONDS (21-34) 02/16/18 10:26 Assessment and Plan - Assessment and Plan (Free Text) Plan: Discussed condition with patient again this pm and recommend intermediate school teacher placement . Dr Albright is aware and we will discuss with social service assistant in am /Dr LAGUNA
--- NOTE | 2018-02-24 15:26 | CP.PCM.PN ---
Subjective - Date & Time of Evaluation Date of Evaluation: 02/24/18 Time of Evaluation: 07:00 - Subjective Subjective: tolerating IV rx renewed rx follow up podiatry eval pending Objective - Vital Signs/Intake and Output Vital Signs (last 24 hours): Temp Pulse Resp BP Pulse Ox 98.2 F 71 20 128/79 97 02/24/18 08:37 02/24/18 08:37 02/24/18 08:37 02/24/18 10:35 02/24/18 08:37 Intake and Output: 02/24/18 02/24/18 06:59 18:59 Intake Total 960 Output Total 2350 400 Balance -1390 -400 - Medications Medications: Current Medications Acetaminophen (Tylenol 325mg Tab) 650 mg PO Q6 PRN PRN Reason: Headache Docusate Sodium (Colace) 100 mg PO DAILY [facility] Last Admin: 02/24/18 10:35 Dose: 100 mg Enoxaparin Sodium (Lovenox) 40 mg SC DAILY [facility] Last Admin: 02/21/18 10:09 Dose: 40 mg Furosemide (Lasix) 40 mg PO BID [facility] Last Admin: 02/24/18 10:35 Dose: 40 mg Hydralazine HCl (Apresoline) 25 mg PO Q8 [facility] Last Admin: 02/24/18 14:21 Dose: 25 mg Colistimethate Sodium 150 mg/ (Sodium Chloride) 100 mls @ 200 mls/hr IV Q12H [facility] PRN Reason: Protocol Last Admin: 02/24/18 06:43 Dose: 200 mls/hr Meropenem 500 mg/ Sodium (Chloride) 100 mls @ 100 mls/hr IVPB Q8 [facility] PRN Reason: Protocol Last Admin: 02/24/18 14:21 Dose: 100 mls/hr Insulin Human Regular (Novolin R) 0 unit SC ACHS [facility] PRN Reason: Protocol Last Admin: 02/24/18 12:21 Dose: Not Given Levothyroxine Sodium (Synthroid) 75 mcg PO ACB [facility] Last Admin: 02/24/18 08:58 Dose: 75 mcg Lidocaine (Lidoderm) 1 ea TD DAILY [facility] Last Admin: 02/24/18 10:35 Dose: 1 ea Metformin HCl (Glucophage Xr) 500 mg PO BID [facility] Last Admin: 02/24/18 10:36 Dose: Not Given Montelukast Sodium (Singulair) 10 mg PO HS [facility] Last Admin: 02/23/18 21:21 Dose: 10 mg Nystatin (Nystop Topical Powder) 1 applic TOP BID [facility] Last Admin: 02/24/18 10:41 Dose: 1 applic Oxycodone HCl (Oxycontin Extended Release Tab) 80 mg PO Q6 [facility] Last Admin: 02/24/18 13:06 Dose: 80 mg Oxycodone/Acetaminophen (Percocet 5/325 Mg Tab) 2 tab PO Q4H PRN PRN Reason: Pain, moderate (4-7) Last Admin: 02/24/18 15:07 Dose: 2 tab Potassium Chloride (K-Dur 20 Meq Er Tab) 20 meq PO DAILY [facility] Last Admin: 02/24/18 10:35 Dose: 20 meq Fluticasone/Salmeterol (Advair Diskus 250/50) 1 puff IH RQ12 [facility] Last Admin: 02/24/18 07:08 Dose: 1 puff - Labs Labs: 02/22/18 22:11 02/22/18 22:11 PT 14.9 SECONDS (9.7-12.2) H 02/22/18 07:57 INR 1.3 02/22/18 07:57 APTT 31 SECONDS (21-34) 02/16/18 10:26 - Constitutional Appears: Non-toxic, Chronically Ill - Head Exam Head Exam: NORMOCEPHALIC - Eye Exam Eye Exam: Normal appearance, PERRL - ENT Exam ENT Exam: Mucous Membranes Dry - Neck Exam Neck Exam: absent: Lymphadenopathy - Respiratory Exam Respiratory Exam: Decreased Breath Sounds - Cardiovascular Exam Cardiovascular Exam: REGULAR RHYTHM - GI/Abdominal Exam GI & Abdominal Exam: Distended, Soft Assessment and Plan (1) Cellulitis Status: Acute (2) Morbid obesity with BMI of 50.0-59.9, adult Status: Chronic (3) Leg ulcer Status: Acute (4) MDD (major depressive disorder) Status: Acute (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
--- NOTE | 2018-02-24 19:30 | OP ---
PROCEDURE DATE: 02/22/2018 SURGEON: Dr. Casey Laguna HOSPITALITY COORDINATOR: Huey Chaparro, PGY-1 ANESTHESIA ADMINISTERED BY: Kristen Jimenes CRNA TYPE OF ANESTHESIA: IV sedation with local, 10 mL of 0.5% Marcaine plain. PREOPERATIVE DIAGNOSIS: Left leg infected wound. POSTOPERATIVE DIAGNOSIS: Left leg infected wound. NAME OF PROCEDURE: Left leg wound debridement. INDICATIONS: The patient is a 57-year-old male with the above diagnosis. The patient has exhausted conservative treatments at this time, and complains of persistent pain to his left lower extremity secondary to venous stasis ulcerations, has difficulty with ambulation and ulcerations remain nonhealing. A wound culture was obtained during the patient's hospital stay and was found to have growth of pseudomonas that was a multi-drug resistant organism. The patient now requests surgical intervention. The patient signed the consent after careful explanation of risks, benefits, complications and alternatives for surgical procedure and wishes to proceed. No guarantees were given nor implied. PREPARATION: The patient was brought into the operating room and left on the stretcher for the remainder of the procedure. A time-out was performed for identification of the correct patient and procedure. After the induction of IV sedation, approximately 15 mL of 0.5% Marcaine plain was administered in a proximal ring block fashion to the left leg. The left lower extremity was then prepped and draped in normal sterile manner and the procedure began. DESCRIPTION OF PROCEDURE: Left leg wound debridement: Attention was directed to the left leg, where several superficial venous stasis ulcerations were noted circumferentially extending from the tibial tuberosity down to the ankle joint. The lateral leg ulcerations were noted to have purulent drainage and moderate malodor. All wounds were noted to have 100% granular base with shital-wound erythema. The distal anterior leg wounds were noted to be epithelializing. Next using a pulse lavage of 6 L of bacitracin infused normal saline, the superficial ulcerations were irrigated until healthy active bleeding appeared. At this time, a left leg wound culture was taken from the lateral ulcerations and passed off the operative field to be sent to pathology. The surgical site was then dressed with Telfa, sterile gauze, ABDs, Kerlix and Coban. POSTOPERATIVE CONDITION: The patient tolerated the anesthesia and procedure well and was escorted to the recovery room with vital signs stable and neurovascular status intact to the left lower extremity. The patient will be seen and followed by Dr. Laguna while the patient remains in-house. Huey Chaparro DPM Casey Laguna DPM MTDJosé Miguel
[2018-02-24 20:09] LABS: INR 1.1; PROTHROMBIN TIME 11.9 SECONDS (9.7-12.2)
--- NOTE | 2018-02-24 23:10 | CP.PCM.PN ---
Subjective - Date & Time of Evaluation Date of Evaluation: 02/24/18 Time of Evaluation: 19:35 - Subjective Subjective: pt seen and examined, is doing well, c/o lot of back pain, hip pain, knee pain Objective - Vital Signs/Intake and Output Vital Signs (last 24 hours): Temp Pulse Resp BP Pulse Ox 98.1 F 72 20 128/80 95 02/24/18 15:25 02/24/18 15:25 02/24/18 15:25 02/24/18 17:21 02/24/18 15:25 Intake and Output: 02/24/18 02/25/18 18:59 06:59 Intake Total 580 Output Total 1300 Balance -720 - Medications Medications: Current Medications Acetaminophen (Tylenol 325mg Tab) 650 mg PO Q6 PRN PRN Reason: Headache Docusate Sodium (Colace) 100 mg PO DAILY [facility] Last Admin: 02/24/18 10:35 Dose: 100 mg Enoxaparin Sodium (Lovenox) 40 mg SC DAILY [facility] Last Admin: 02/21/18 10:09 Dose: 40 mg Furosemide (Lasix) 40 mg PO BID [facility] Last Admin: 02/24/18 17:21 Dose: 40 mg Hydralazine HCl (Apresoline) 25 mg PO Q8 [facility] Last Admin: 02/24/18 21:33 Dose: 25 mg Colistimethate Sodium 150 mg/ (Sodium Chloride) 100 mls @ 200 mls/hr IV Q12H [facility] PRN Reason: Protocol Last Admin: 02/24/18 17:32 Dose: 200 mls/hr Meropenem 500 mg/ Sodium (Chloride) 100 mls @ 100 mls/hr IVPB Q8 [facility] PRN Reason: Protocol Last Admin: 02/24/18 21:32 Dose: 100 mls/hr Insulin Human Regular (Novolin R) 0 unit SC ACHS [facility] PRN Reason: Protocol Last Admin: 02/24/18 21:33 Dose: Not Given Levothyroxine Sodium (Synthroid) 75 mcg PO ACB [facility] Last Admin: 02/24/18 08:58 Dose: 75 mcg Lidocaine (Lidoderm) 1 ea TD DAILY [facility] Last Admin: 02/24/18 10:35 Dose: 1 ea Metformin HCl (Glucophage Xr) 500 mg PO BID [facility] Last Admin: 02/24/18 17:22 Dose: 500 mg Montelukast Sodium (Singulair) 10 mg PO HS [facility] Last Admin: 02/24/18 21:33 Dose: 10 mg Nystatin (Nystop Topical Powder) 1 applic TOP BID [facility] Last Admin: 02/24/18 21:34 Dose: Not Given Oxycodone HCl (Oxycontin Extended Release Tab) 80 mg PO Q6 [facility] Last Admin: 02/24/18 17:23 Dose: 80 mg Oxycodone/Acetaminophen (Percocet 5/325 Mg Tab) 2 tab PO Q4H PRN PRN Reason: Pain, moderate (4-7) Last Admin: 02/24/18 20:48 Dose: 2 tab Potassium Chloride (K-Dur 20 Meq Er Tab) 20 meq PO DAILY [facility] Last Admin: 02/24/18 10:35 Dose: 20 meq Fluticasone/Salmeterol (Advair Diskus 250/50) 1 puff IH RQ12 [facility] Last Admin: 02/24/18 19:23 Dose: 1 puff - Labs Labs: 02/22/18 22:11 02/22/18 22:11 PT 11.9 SECONDS (9.7-12.2) 02/24/18 19:58 INR 1.1 02/24/18 19:58 APTT 31 SECONDS (21-34) 02/16/18 10:26 - Constitutional Appears: No Acute Distress - Head Exam Head Exam: ATRAUMATIC, NORMAL INSPECTION, NORMOCEPHALIC - Eye Exam Eye Exam: EOMI, Normal appearance, PERRL Pupil Exam: NORMAL ACCOMODATION, PERRL - Respiratory Exam Respiratory Exam: Clear to Ausculation Bilateral, NORMAL BREATHING PATTERN - Cardiovascular Exam Cardiovascular Exam: REGULAR RHYTHM, +S1, +S2. absent: Murmur - GI/Abdominal Exam GI & Abdominal Exam: Soft, Normal Bowel Sounds. 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
[2018-02-25] MEDS: oxyCODONE 80 mg ER Tab (oxyCONTIN) PO SCH ×4 (00:11→17:45)
[2018-02-25] MEDS: Oxycodone/Acetaminophen 5/325 mg Tab PO PRN ×5 (01:22→20:57)
[2018-02-25] MEDS: Meropenem 500 MG in Sodium Chloride 0.9% 100 ML IVPB SCH ×3 (05:07→21:21)
[2018-02-25] MEDS: Fluticasone-Salmeterol 250-50mcg Diskus IH SCH ×2 (07:29→20:06)
[2018-02-25] MEDS: (Novolin R) Insulin Human Regular 100 units/ml vial SC SCH ×4 (07:49→23:08)
[2018-02-25] MEDS: Levothyroxine 75 MCG TAB PO SCH (08:02)
[2018-02-25] MEDS: Potassium Chloride 20 mEq ER Tab PO SCH (10:18)
[2018-02-25] MEDS: Lidocaine 5% Patch TD SCH (10:19)
--- NOTE | 2018-02-25 11:43 | CP.PCM.PN ---
Subjective - Date & Time of Evaluation Date of Evaluation: 02/25/18 Time of Evaluation: 11:39 - Subjective Subjective: Podiatry Progress Note - Dr. Laguna 57M seen and evaluated at bedside with attending Dr. Laguna, 3 days s/p wound debridement of left leg. Patient is resting comfortably in bed, in NAD, AA0x3. Patient denies acute events overnight. Patient reports continued, moderate pain to left leg wounds. Denies N/V/F/D/SOB/MABRY/dizziness. Dressing remains clean ,dry,intact. Objective - Vital Signs/Intake and Output Vital Signs (last 24 hours): Temp Pulse Resp BP Pulse Ox 97.7 F 67 20 128/70 96 02/25/18 07:41 02/25/18 07:41 02/25/18 07:41 02/25/18 10:18 02/25/18 07:41 Intake and Output: 02/25/18 02/25/18 06:59 18:59 Intake Total 960 Output Total 1000 Balance -40 - Medications Medications: Current Medications Acetaminophen (Tylenol 325mg Tab) 650 mg PO Q6 PRN PRN Reason: Headache Docusate Sodium (Colace) 100 mg PO DAILY [facility] Last Admin: 02/25/18 10:18 Dose: 100 mg Enoxaparin Sodium (Lovenox) 40 mg SC DAILY [facility] Last Admin: 02/21/18 10:09 Dose: 40 mg Furosemide (Lasix) 40 mg PO BID [facility] Last Admin: 02/25/18 10:18 Dose: 40 mg Hydralazine HCl (Apresoline) 25 mg PO Q8 [facility] Last Admin: 02/25/18 05:13 Dose: 25 mg Colistimethate Sodium 150 mg/ (Sodium Chloride) 100 mls @ 200 mls/hr IV Q12H [facility] PRN Reason: Protocol Last Admin: 02/25/18 06:24 Dose: 200 mls/hr Meropenem 500 mg/ Sodium (Chloride) 100 mls @ 100 mls/hr IVPB Q8 [facility] PRN Reason: Protocol Last Admin: 02/25/18 05:07 Dose: 100 mls/hr Insulin Human Regular (Novolin R) 0 unit SC ACHS [facility] PRN Reason: Protocol Last Admin: 02/25/18 11:27 Dose: Not Given Levothyroxine Sodium (Synthroid) 75 mcg PO ACB [facility] Last Admin: 02/25/18 08:02 Dose: 75 mcg Lidocaine (Lidoderm) 1 ea TD DAILY [facility] Last Admin: 02/25/18 10:19 Dose: 1 ea Metformin HCl (Glucophage Xr) 500 mg PO BID [facility] Last Admin: 02/25/18 10:19 Dose: 500 mg Montelukast Sodium (Singulair) 10 mg PO HS [facility] Last Admin: 02/24/18 21:33 Dose: 10 mg Nystatin (Nystop Topical Powder) 1 applic TOP BID [facility] Last Admin: 02/25/18 10:19 Dose: 1 applic Oxycodone HCl (Oxycontin Extended Release Tab) 80 mg PO Q6 [facility] Last Admin: 02/25/18 05:15 Dose: 80 mg Oxycodone/Acetaminophen (Percocet 5/325 Mg Tab) 2 tab PO Q4H PRN PRN Reason: Pain, moderate (4-7) Last Admin: 02/25/18 10:17 Dose: 2 tab Potassium Chloride (K-Dur 20 Meq Er Tab) 20 meq PO DAILY [facility] Last Admin: 02/25/18 10:18 Dose: 20 meq Fluticasone/Salmeterol (Advair Diskus 250/50) 1 puff IH RQ12 [facility] Last Admin: 02/25/18 07:29 Dose: 1 puff - Labs Labs: 02/22/18 22:11 02/22/18 22:11 PT 11.9 SECONDS (9.7-12.2) 02/24/18 19:58 INR 1.1 02/24/18 19:58 APTT 31 SECONDS (21-34) 02/16/18 10:26 - Constitutional Appears: Well, Non-toxic, No Acute Distress - Extremities Exam Additional comments: Left lower extremity focused exam: strikethough noted to posterolateral aspect of dressing Vasc: Non-palpable pedal pulses due to edema. TG warm to warm, CFT < 3 sec to all digits, +1 pitting edema to LE Derm: Localized erythema to entire leg from tibial tuberosity distally to ankle joint. Multiple circular ulcerations noted to the to Anterior and lateral and posterior aspect of the left leg circumferentally, wound base is granular. no purulence, no drainage, no malodor noted. Neuro: sensation grossly diminished MUSC: pain on palpation of posterior and medial legs - Neurological Exam Neurological Exam: Alert, Awake, Oriented x3 - Psychiatric Exam Psychiatric exam: Normal Affect, Normal Mood Assessment and Plan - Assessment and Plan (Free Text) Assessment: 57 year old male with left leg chronic nonhealing wounds 3 days s/p wound debridement Plan: Patient seen and evaluated with attending, Dr. Laguna Afebrile L leg WCx: MRSA local wound care - Telfa, DSD LLE Continue abx per ID patient stable from podiatry standpoint patient instructed to follow up with Dr. Laguna as outpatient Podiatry will continue to follow patient while in house
[2018-02-25 16:39] LABS: INR 1.1; PROTHROMBIN TIME 12.1 SECONDS (9.7-12.2)
--- NOTE | 2018-02-25 23:05 | CP.PCM.PN ---
Subjective - Date & Time of Evaluation Date of Evaluation: 02/25/18 Time of Evaluation: 17:35 - Subjective Subjective: Pt seen and examined at bedside Objective - Vital Signs/Intake and Output Vital Signs (last 24 hours): Temp Pulse Resp BP Pulse Ox 98.2 F 81 20 133/85 95 02/25/18 15:00 02/25/18 15:00 02/25/18 15:00 02/25/18 17:42 02/25/18 15:00 Intake and Output: 02/25/18 02/26/18 18:59 06:59 Intake Total 550 550 Balance 550 550 - Medications Medications: Current Medications Acetaminophen (Tylenol 325mg Tab) 650 mg PO Q6 PRN PRN Reason: Headache Docusate Sodium (Colace) 100 mg PO DAILY [facility] Last Admin: 02/25/18 10:18 Dose: 100 mg Enoxaparin Sodium (Lovenox) 40 mg SC DAILY [facility] Last Admin: 02/21/18 10:09 Dose: 40 mg Furosemide (Lasix) 40 mg PO BID [facility] Last Admin: 02/25/18 17:42 Dose: 40 mg Hydralazine HCl (Apresoline) 25 mg PO Q8 [facility] Last Admin: 02/25/18 21:21 Dose: 25 mg Colistimethate Sodium 150 mg/ (Sodium Chloride) 100 mls @ 200 mls/hr IV Q12H [facility] PRN Reason: Protocol Last Admin: 02/25/18 17:42 Dose: 200 mls/hr Meropenem 500 mg/ Sodium (Chloride) 100 mls @ 100 mls/hr IVPB Q8 [facility] PRN Reason: Protocol Last Admin: 02/25/18 21:21 Dose: 100 mls/hr Insulin Human Regular (Novolin R) 0 unit SC ACHS [facility] PRN Reason: Protocol Last Admin: 02/25/18 17:44 Dose: Not Given Levothyroxine Sodium (Synthroid) 75 mcg PO ACB [facility] Last Admin: 02/25/18 08:02 Dose: 75 mcg Lidocaine (Lidoderm) 1 ea TD DAILY [facility] Last Admin: 02/25/18 10:19 Dose: 1 ea Metformin HCl (Glucophage Xr) 500 mg PO BID [facility] Last Admin: 02/25/18 17:42 Dose: 500 mg Montelukast Sodium (Singulair) 10 mg PO HS [facility] Last Admin: 02/25/18 21:21 Dose: 10 mg Nystatin (Nystop Topical Powder) 1 applic TOP BID [facility] Last Admin: 02/25/18 10:19 Dose: 1 applic Oxycodone HCl (Oxycontin Extended Release Tab) 80 mg PO Q6 [facility] Last Admin: 02/25/18 17:45 Dose: 80 mg Oxycodone/Acetaminophen (Percocet 5/325 Mg Tab) 2 tab PO Q4H PRN PRN Reason: Pain, moderate (4-7) Last Admin: 02/25/18 20:57 Dose: 2 tab Potassium Chloride (K-Dur 20 Meq Er Tab) 20 meq PO DAILY [facility] Last Admin: 02/25/18 10:18 Dose: 20 meq Fluticasone/Salmeterol (Advair Diskus 250/50) 1 puff IH RQ12 [facility] Last Admin: 02/25/18 20:06 Dose: 1 puff Warfarin Sodium (Coumadin) 2.5 mg PO DAILY@1800 [facility] Last Admin: 02/25/18 17:56 Dose: 2.5 mg - Labs Labs: 02/22/18 22:11 02/22/18 22:11 PT 12.1 SECONDS (9.7-12.2) 02/25/18 16:24 INR 1.1 02/25/18 16:24 APTT 31 SECONDS (21-34) 02/16/18 10:26 Assessment and Plan (1) Cellulitis Status: Acute (2) Morbid obesity with BMI of 50.0-59.9, adult Status: Chronic (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
[2018-02-26] MEDS: oxyCODONE 80 mg ER Tab (oxyCONTIN) PO SCH ×2 (00:04→05:08)
[2018-02-26] MEDS: Oxycodone/Acetaminophen 5/325 mg Tab PO PRN ×3 (02:06→11:09)
[2018-02-26] MEDS: Meropenem 500 MG in Sodium Chloride 0.9% 100 ML IVPB SCH ×2 (05:04→13:30)
[2018-02-26] MEDS: Fluticasone-Salmeterol 250-50mcg Diskus IH SCH (07:57)
[2018-02-26 08:23] VITALS: BP 128/78; PULSE 73; TEMP 98.4; O2SAT 95
[2018-02-26] MEDS: (Novolin R) Insulin Human Regular 100 units/ml vial SC SCH ×2 (08:24→11:38)
[2018-02-26] MEDS: Levothyroxine 75 MCG TAB PO SCH (08:34)
[2018-02-26] MEDS: Potassium Chloride 20 mEq ER Tab PO SCH (09:17)
[2018-02-26] MEDS: Lidocaine 5% Patch TD SCH (09:18)
[2018-02-26] MEDS ORDERED: oxyCODONE 80 mg ER Tab (oxyCONTIN) PO ONE (12:00)
--- NOTE | 2018-02-26 23:08 | CP.PCM.DIS ---
Provider - Provider Date of Admission: 02/16/18 11:17 Attending physician: Estrada Albright MD Time Spent in preparation of Discharge (in minutes): 25 Diagnosis - Discharge Diagnosis (1) Cellulitis Status: Acute (2) Morbid obesity with BMI of 50.0-59.9, adult Status: Chronic (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 Hospital Course - Lab Results Lab Results: Micro Results 02/22/18 10:57 Leg - Left Gram Stain - Final 02/22/18 10:57 Leg - Left Wound Culture - Final Methicillin Resistant S Aureus 02/16/18 09:30 Blood Blood Culture - Final NO GROWTH AFTER 5 DAYS 02/16/18 09:00 Blood Blood Culture - Final NO GROWTH AFTER 5 DAYS 02/16/18 09:36 Leg - Left Gram Stain - Final 02/16/18 09:36 Leg - Left Wound Culture - Final Staphylococcus Aureus Pseudomonas Aeruginosa Most Recent Lab Values WBC 6.5 K/uL (4.8-10.8) 02/22/18 22:11 RBC 4.31 Mil/uL (4.40-5.90) L 02/22/18 22:11 Hgb 11.1 g/dL (12.0-18.0) L 02/22/18 22:11 Hct 34.2 % (35.0-51.0) L 02/22/18 22:11 MCV 79.4 fL (80.0-94.0) L 02/22/18 22:11 MCH 25.8 pg (27.0-31.0) L 02/22/18 22:11 MCHC 32.5 g/dL (33.0-37.0) L 02/22/18 22:11 RDW 16.9 % (11.5-14.5) H 02/22/18 22:11 Plt Count 140 K/uL (130-400) 02/22/18 22:11 MPV 10.0 fL (7.2-11.7) 02/22/18 22:11 Neut % (Auto) 59.3 % (50.0-75.0) 02/22/18 22:11 Lymph % (Auto) 26.0 % (20.0-40.0) 02/22/18 22:11 [place] % (Auto) 8.8 % (0.0-10.0) 02/22/18 22:11 Eos % (Auto) 4.8 % (0.0-4.0) H 02/22/18 22:11 Baso % (Auto) 1.1 % (0.0-2.0) 02/22/18 22:11 Neut # (Auto) 3.8 K/uL (1.8-7.0) 02/22/18 22:11 Lymph # (Auto) 1.7 K/uL (1.0-4.3) 02/22/18 22:11 [place] # (Auto) 0.6 K/uL (0.0-0.8) 02/22/18 22:11 Eos # (Auto) 0.3 K/uL (0.0-0.7) 02/22/18 22:11 Baso # (Auto) 0.1 K/uL (0.0-0.2) 02/22/18 22:11 PT 12.1 SECONDS (9.7-12.2) 02/25/18 16:24 INR 1.1 02/25/18 16:24 APTT 31 SECONDS (21-34) 02/16/18 10:26 Sodium 140 mmol/L (132-148) 02/22/18 22:11 Potassium 5.1 mmol/L (3.6-5.2) 02/22/18 22:11 Chloride 96 mmol/L (98-107) L 02/22/18 22:11 Carbon Dioxide 30 mmol/L (22-30) 02/22/18 22:11 Anion Gap 19 (10-20) 02/22/18 22:11 BUN 21 mg/dL (9-20) H 02/22/18 22:11 Creatinine 1.4 mg/dL (0.8-1.5) 02/22/18 22:11 Est GFR ( Amer) > 60 02/22/18 22:11 Est GFR (Non-Af Amer) 52 02/22/18 22:11 POC Glucose (mg/dL) 109 mg/dL (65-110) 02/26/18 11:11 Random Glucose 99 mg/dL (75-110) 02/22/18 22:11 Calcium 8.0 mg/dl (8.6-10.4) L 02/22/18 22:11 Total Bilirubin 0.4 mg/dL (0.2-1.3) 02/22/18 22:11 AST 19 U/L (17-59) 02/22/18 22:11 ALT 18 U/L (21-72) L D 02/22/18 22:11 Alkaline Phosphatase 114 U/L (38-126) 02/22/18 22:11 Total Protein 7.6 g/dL (6.3-8.3) 02/22/18 22:11 Albumin 3.8 g/dL (3.5-5.0) 02/22/18 22:11 Globulin 3.9 gm/dL (2.2-3.9) 02/22/18 22:11 Albumin/Globulin Ratio 1.0 (1.0-2.1) 02/22/18 22:11 Vancomycin Trough 14.4 ug/mL (5.0-10.0) H 02/24/18 08:30 - Hospital Course Hospital Course: Left lower extremity focused exam: strikethough noted to posterolateral aspect of dressing 57 year old male admitted with left leg chronic nonhealing wounds 3 days s/p wound debridement, pt is for discharge today Plan: Patient seen and evaluated , feeling better, afebrile L leg WCx: MRSA local wound care - Telfa, DSD LLE Continue abx per ID patient stable from podiatry standpoint patient instructed to follow up outpatient Discharge Exam - Head Exam Head Exam: ATRAUMATIC, NORMAL INSPECTION, NORMOCEPHALIC - Eye Exam Eye Exam: EOMI, Normal appearance, PERRL Pupil Exam: NORMAL ACCOMODATION, PERRL - Cardiovascular Exam Cardiovascular Exam: REGULAR RHYTHM, +S1, +S2 - GI/Abdominal Exam GI & Abdominal Exam: Normal Bowel Sounds - Rectal Exam Rectal Exam: Deferred - Extremities Exam Additional comments: Vasc: Non-palpable pedal pulses due to edema. TG warm to warm, CFT < 3 sec to all digits, +1 pitting edema to LE Derm: Localized erythema to entire leg from tibial tuberosity distally to ankle joint. Multiple circular ulcerations noted to the to Anterior and lateral and posterior aspect of the left leg circumferentally, wound base is granular. no purulence, no drainage, no malodor noted. Neuro: sensation grossly diminished MUSC: pain on palpation of posterior and medial legs Discharge Plan - Discharge Medications Prescriptions: Warfarin [Coumadin] 10 mg PO 1800 30 Days #10 tab Oxycodone HCl/Acetaminophen [Percocet 10-325 mg Tablet] 1 each PO Q6 #40 tablet Linezolid [Zyvox] 600 mg PO BID 5 Days tab - Follow Up Plan Condition: STABLE Disposition: HOME/ ROUTINE Instructions: Vitamin K Diet, Linezolid, Anti-Clotting Medicines: Warfarin ( Coumadin), Warfarin, Going Home on Blood Thinners , Cellulitis (DC) Additional Instructions: PLEASE FOLLOW UP WITH DR. ALBRIGHT IN THE OFFICE IN 1-2 DAYS- CALL FOR AN APPOINTMENT PLEASE FOLLOW UP WITH DR. LAGUNA IN WOUND CENTER NEXT WEEK- CALL FOR AN APPOINTMENT CONTINUE HOME MEDICATIONS PER MED REC RETURN TO ER FOR WORSENING SYMPTOMS Referrals: Estrada Albright MD [Staff Provider] - Keenan Antonio MD [Staff Provider] - Casey Laguna DPM [Staff Provider] -
== END 2018-02-26 15:54 | disposition home or self-care (01) | DRG 603 ==
LOC: C.ER 08:31 → C.9E 11:17 → C.5S 12:35 → C.3T 02-20 22:19
PROVIDERS: ADMIT Internal Medicine; ATTEND Internal Medicine
PROC: 02HV33Z Insertion of Infusion Device into Superior Vena Cava, Percutaneous Approach (ICD-10-PCS; 2018-02-19)
PROC: B518ZZA Fluoroscopy of Superior Vena Cava, Guidance (ICD-10-PCS; 2018-02-19)
PROC: 05H833Z Insertion of Infusion Device into Left Axillary Vein, Percutaneous Approach (ICD-10-PCS; 2018-02-19)
PROC: B54NZZA Ultrasonography of Left Upper Extremity Veins, Guidance (ICD-10-PCS; 2018-02-19)
PROC: 0HDLXZZ Extraction of Left Lower Leg Skin, External Approach (ICD-10-PCS; principal; 2018-02-24)
DX: L03.116 Cellulitis of left lower limb (principal); L97.929 Non-pressure chronic ulcer of unspecified part of left lower leg with unspecified severity; I13.0 Hypertensive heart and chronic kidney disease with heart failure and stage 1 through stage 4 chronic kidney disease, or unspecified chronic kidney disease; I87.1 Compression of vein; Z68.43 Body mass index [BMI] 50.0-59.9, adult; L97.919 Non-pressure chronic ulcer of unspecified part of right lower leg with unspecified severity; E11.51 Type 2 diabetes mellitus with diabetic peripheral angiopathy without gangrene; E11.622 Type 2 diabetes mellitus with other skin ulcer; E11.22 Type 2 diabetes mellitus with diabetic chronic kidney disease; E03.9 Hypothyroidism, unspecified; E11.65 Type 2 diabetes mellitus with hyperglycemia; E66.01 Morbid (severe) obesity due to excess calories; E78.00 Pure hypercholesterolemia, unspecified; F06.30 Mood disorder due to known physiological condition, unspecified; F06.4 Anxiety disorder due to known physiological condition; F32.9 Major depressive disorder, single episode, unspecified; G47.33 Obstructive sleep apnea (adult) (pediatric); I25.10 Atherosclerotic heart disease of native coronary artery without angina pectoris; I50.9 Heart failure, unspecified; J44.9 Chronic obstructive pulmonary disease, unspecified; K21.9 Gastro-esophageal reflux disease without esophagitis; M19.90 Unspecified osteoarthritis, unspecified site; M79.7 Fibromyalgia; I87.2 Venous insufficiency (chronic) (peripheral); N18.9 Chronic kidney disease, unspecified; B96.5 Pseudomonas (aeruginosa) (mallei) (pseudomallei) as the cause of diseases classified elsewhere; Z16.24 Resistance to multiple antibiotics; Z96.653 Presence of artificial knee joint, bilateral; M54.5 Low back pain; G89.29 Other chronic pain; Z86.711 Personal history of pulmonary embolism; Z87.01 Personal history of pneumonia (recurrent)

== ENCOUNTER 2018-03-14 09:25 | Inpatient (IN) | payer MEDICARE ==
[2018-03-14 09:26] VITALS: BMI 54.8
[2018-03-14] MEDS ORDERED: Oxycodone/Acetaminophen 5/325 mg Tab PO STA (10:06)
[2018-03-14] MEDS ORDERED: oxyCODONE 80 mg ER Tab (oxyCONTIN) PO STA (10:10)
[2018-03-14] MEDS ORDERED: Oxycodone/Acetaminophen 5/325 mg Tab ONE (10:12)
[2018-03-14] MEDS ORDERED: oxyCODONE 80 mg ER Tab (oxyCONTIN) PO ONE (10:15)
[2018-03-14 10:31] LABS: BASO # 0.1 K/uL (0.0-0.2); BASO % 0.8 % (0.0-2.0); EOS # 0.4 K/uL (0.0-0.7); EOS % 4.9 % (0.0-4.0); HEMOGLOBIN 10.4 g/dL (12.0-18.0); LYMPH # 1.1 K/uL (1.0-4.3); LYMPH % 14.2 % (20.0-40.0); MEAN CELL VOLUME 77.7 fL (80.0-94.0); MEAN CORPUSCULAR HEMOGLOBIN 24.8 pg (27.0-31.0); MEAN CORPUSCULAR HGB CONC 31.9 g/dL (33.0-37.0); MEAN PLATELET VOLUME 9.2 fL (7.2-11.7); MONO # 0.4 K/uL (0.0-0.8); MONO % 5.3 % (0.0-10.0); NEUT # 5.9 K/uL (1.8-7.0); NEUT % 74.8 % (50.0-75.0); NRBC % 0.1 % (0.0-2.0); RBC 4.18 Mil/uL (4.40-5.90); RED CELL DISTRIBUTION WIDTH 17.8 % (11.5-14.5); WHITE BLOOD COUNT 7.9 K/uL (4.8-10.8)
[2018-03-14 10:39] LABS: INR 1.9; PROTHROMBIN TIME 22.5 SECONDS (9.7-12.2)
[2018-03-14 10:56] LABS: ALB/GLOB RATIO 0.7 (1.0-2.1); ALBUMIN 3.6 g/dL (3.5-5.0); ALT/SGPT 22 U/L (21-72); AST/SGOT 33 U/L (17-59); BLOOD UREA NITROGEN 10 mg/dL (9-20); CALCIUM 8.9 mg/dl (8.6-10.4); GFR AFRICAN-AMERICAN > 60; GFR NON-AFRICAN AMERICAN > 60
[2018-03-14] MEDS ORDERED: oxyCODONE 5 mg Immediate Release Tab PO PRN (11:29)
[2018-03-14] MEDS: (Novolin R) Insulin Human Regular 100 units/ml vial SC SCH ×3 (12:21→21:34)
--- NOTE | 2018-03-14 13:09 | C.PDOC ---
History Of Present Illness 57 year old male presents to ED for evaluation of left wrist pain since last night s/p fall. Pt states he fell last night while trying to back up using a walker. Pt also states that his chronic lower extremity ulcers are not improving. Notes that his temperature was 100 last night. Otherwise, denies change in sensation. Pt states he is right hand dominant "but I do everything with my left." Time Seen by Provider: 03/14/18 09:36 Chief Complaint (Nursing): Upper Extremity Problem/Injury History Per: Patient History/Exam Limitations: no limitations Onset/Duration Of Symptoms: Days Current Symptoms Are (Timing): Still Present Quality: "Pain" Recent travel outside of the [place]: No Additional History Per: Patient Past Medical History Reviewed: Historical Data, Nursing Documentation, Vital Signs Vital Signs: Last Vital Signs Temp 97.8 F 03/14/18 15:00 Pulse 83 03/14/18 15:00 Resp 18 03/14/18 15:00 BP 122/75 03/14/18 15:00 Pulse Ox 96 03/14/18 15:00 - Medical History PMH: Arthritis, Asthma, Back Problems, CAD, CHF, COPD, Depression, Diabetes, Deep Vein Thrombosis, Fibromyalgia, Fractures, HTN, Hypercholesterolemia, Hyperthyroidism, Hypothyroidism, Peripheral Edema (+3 pitting ble), Pneumonia, Pulmonary Embolism, Chronic Kidney Disease (required HD in 2016 briefly), Sleep Apnea, Chronic Pain Surgical History: - [facility] Procedures ASSISTANCE WITH RESPIRATORY VENTILATION, >96 HRS, CPAP (09/04/16) BATHING/SHOWERING TECHNIQUES TREATMENT (07/29/17) CENTRAL VENOUS CATHETER PLACEMENT WITH GUIDANCE (07/08/15) CLOSED ENDOSCOPIC BIOPSY OF LARGE INTESTINE (03/22/14) CONTIN POS AIRWAY PRESSURE [CPAP] (02/21/07) DERMAL REGENERATIVE GRAFT (06/15/15) DRESSING TECHNIQUES TREATMENT (07/29/17) DX ULTRASOUND-HEART (05/14/06) ENDOSC POLYPECTOMY OF LG INTEST (03/22/14) ENDOSCOPIC BRONCHIAL BX (09/22/04) ESOPHAGOGASTRODUODENOSCOPY [EGD] W/CLOSED BIOPSY (03/22/14) EXCIS DEBRIDE OF WOUND, INFECT, OR BURN (06/15/15) EXCISION OF LEFT LOWER LEG SKIN, EXTERNAL APPROACH (09/15/17) EXTRACTION OF LEFT LOWER LEG SKIN, EXTERNAL APPROACH (02/16/18) FLUOROSCOPY OF SUPERIOR VENA CAVA, GUIDANCE (02/16/18) GAIT TRAINING/AMBULAT TREATMENT USING ASSIST EQUIPMENT (07/29/17) HETEROGRAFT TO SKIN (10/29/14) HOME MANAGEMENT TREATMENT (07/29/17) INJECT ANTIBIOTIC (05/29/06) INJECT ANTICOAGULANT (11/17/04) INJECT/INFUSE NEC (03/22/14) INSERTION OF INFUSION DEV INTO L AXILLA VEIN, PERC APPROACH (02/16/18) INSERTION OF INFUSION DEV INTO SUP VENA CAVA, PERC APPROACH (02/16/18) INSPECTION OF BLADDER, ENDO (06/22/16) INTRODUCE OF OTH THERAP SUBST INTO RESP TRACT, VIA OPENING (04/06/16) NEBULIZER THERAPY (09/18/14) NON-INVASIVE MECHANICAL VENTILATION (08/13/12) NONEXCIS DEBRID OF WOUND, INFECT, OR BURN (10/09/14) OCCUPATIONAL THERAPY (03/17/14) PERFORMANCE OF URINARY FILTRATION, MULTIPLE (09/04/16) PHYSICAL THERAPY NEC (03/17/14) REPLACE L LOW LEG SKIN W NONAUT SUB, FULL THICK, LINE O SCRIBE OPERATOR (01/17/18) TRANSFUSE NONAUT FROZEN PLASMA IN PERIPH VEIN, PERC (09/04/16) ULTRASONOGRAPHY OF LEFT UPPER EXTREMITY VEINS, GUIDANCE (02/16/18) VENOUS CATHETERIZATION NEC (04/25/15) Family History: States: Unknown Family Hx - Social History Hx Tobacco Use: No Hx Alcohol Use: No Hx Substance Use: No - Immunization History Hx Tetanus Toxoid Vaccination: No Hx Influenza Vaccination: Yes Hx Pneumococcal Vaccination: Yes (3 yrs ago) Review Of Systems Except As Marked, All Systems Reviewed And Found Negative. Cardiovascular: Negative for: Chest Pain Respiratory: Negative for: Shortness of Breath Musculoskeletal: Positive for: Hand Pain (left wrist) Skin: Positive for: Other (lower extremity ulcers) Neurological: Negative for: Weakness, Numbness Physical Exam - Physical Exam Appears: Non-toxic, No Acute Distress, Other (obese) Skin: Warm, Dry, Other (chronic ulceration circumferential to left lower leg with granulation and foul odor) Head: Atraumatic, Normacephalic Eye(s): bilateral: Normal Inspection, EOMI Nose: Normal Oral Mucosa: Moist Neck: Normal ROM, Supple Chest: Symmetrical Cardiovascular: Rhythm Regular Respiratory: Normal Breath Sounds, No Rales, No Rhonchi, No Wheezing Gastrointestinal/Abdominal: Soft, No Tenderness Extremity: Tenderness (left wrist), Pedal Edema (bilateral), Capillary Refill ( less than 2 seconds), No Deformity, Swelling (left hand and wrist) Pulses: Left Radial: Normal, Right Radial: Normal Neurological/Psych: Oriented x3, Normal Speech ED Course And Treatment - Laboratory Results Result Diagrams: 03/14/18 10:23 03/14/18 10:23 O2 Sat by Pulse Oximetry: 96 (RA) Pulse Ox Interpretation: Normal - Other Rad Wrist XR X-Ray: Viewed By Me, Read By Radiologist Interpretation: PROCEDURE: Left Wrist Radiographs. . HISTORY: trauma. COMPARISON: None. FINDINGS: BONES: There is acute nondisplaced fracture at the distal left radius. There is also acute nondisplaced fracture at the styloid process of the distal ulna. JOINTS: No evidence of dislocation. Mild osteoarthritic changes P. SOFT TISSUES: Tissue swelling is noted P. OTHER FINDINGS: None. IMPRESSION: Acute nondisplaced fracture at the distal left radius and ulna. Progress Note: Blood work, left hand and wrist x-ray ordered and reviewed. Pt was given Percocet and OxyContin, notes he takes it at home and he has not taken it today. Case discussed with Dr. Albright who agrees upon plan and admission. Case discussed with Dr. Gio Young, orthopedist, as per patient's request. Volar splint applied by technology director and elevated. Disposition - Disposition Disposition: HOSPITALIZED Disposition Time: 15:00 Condition: STABLE - Clinical Impression Clinical Impression: Cellulitis, Leg ulcer, left, Wrist fracture - PA / REINFORCING BAR SETTER / Resident Statement MD/DO has reviewed & agrees with the documentation as recorded. - Scribe Statement The provider has reviewed the documentation as recorded by the Ratnaibbenji Murdock All medical record entries made by the Kevin were at my direction and personally dictated by me. I have reviewed the chart and agree that the record accurately reflects my personal performance of the history, physical exam, medical decision making, and the department course for this patient. I have also personally directed, reviewed, and agree with the discharge instructions and disposition.
[2018-03-14] MEDS ORDERED: oxyCODONE 80 mg ER Tab (oxyCONTIN) PO SCH ×2 (14:00→18:00)
--- NOTE | 2018-03-14 16:39 | RAD ---
PROCEDURE: Left Hand Radiographs. HISTORY: trauma COMPARISON: None. FINDINGS: BONES: There is a fracture at the distal left radius. There is also nondisplaced acute fracture at the styloid process. There is no evidence of acute fracture or dislocation in the left hand. JOINTS: Normal. No osteoarthritic changes. SOFT TISSUES: Normal. OTHER FINDINGS: None. IMPRESSION: Acute fracture at the distal left radius and ulna. No evidence of acute fracture or dislocation in the left hand.
--- NOTE | 2018-03-14 16:43 | RAD ---
PROCEDURE: Left Wrist Radiographs. HISTORY: trauma COMPARISON: None. FINDINGS: BONES: There is acute nondisplaced fracture at the distal left radius. There is also acute nondisplaced fracture at the styloid process of the distal ulna JOINTS: No evidence of dislocation. Mild osteoarthritic changes P SOFT TISSUES: Tissue swelling is noted P OTHER FINDINGS: None. IMPRESSION: Acute nondisplaced fracture at the distal left radius and ulna.
[2018-03-14] MEDS ORDERED: Oxycodone/Acetaminophen 5/325 mg Tab PO PRN (17:08)
[2018-03-14] MEDS: Oxycodone/Acetaminophen 5/325 mg Tab PO PRN ×2 (17:41→21:49)
[2018-03-14] MEDS: oxyCODONE 80 mg ER Tab (oxyCONTIN) PO SCH (19:13)
[2018-03-14] MEDS: Fluticasone-Salmeterol 250-50mcg Diskus IH SCH (19:45)
--- NOTE | 2018-03-14 22:28 | CP.PCM.HP ---
History of Present Illness - History of Present Illness History of Present Illness: CC: Fall resulting in right wrist injury History Of Present Illness 57 year old male well known to me with h/o diabetes, DVT, non healing left leg ulcer, HTN, Hyperlipidemia presents to ED for evaluation of left wrist pain since last night s/p fall. Pt states he fell last night while trying to back up using a walker. Pt also states that his chronic lower extremity ulcers are not improving. Notes that his temperature was 100 last night. Otherwise, denies change in sensation. Pt states he is right hand dominant "but I do everything with my left."Pt has pain all the gime ben nd injury had made it worse. Present on Admission - Present on Admission Any Indicators Present on Admission: Yes Review of Systems - Review of Systems Systems not reviewed;Unavailable: Acuity of Condition - Constitutional Constitutional: Lethargy, Malaise - EENT Eyes: absent: As Per HPI, Blind Spots, Blurred Vision, Change in Vision, Decreased Night Vision, Diplopia, Discharge, Dry Eye, Exophthalmos, Floaters, Irritation, Itchy Eyes, Loss of Peripheral Vision, Pain, Photophobia, Requires Corrective Lenses, Sees Flashes, Spots in Vision, Tunnel Vision, Other Visual Disturbances, Loss of Vision, Other Nose/Mouth/Throat: absent: As Per HPI, Epistaxis, Nasal Congestion, Nasal Discharge, Nasal Obstruction, Nasal Trauma, Nose Pain, Post Nasal Drip, Sinus Pain, Sinus Pressure, Bleeding Gums, Change in Voice, Dental Pain, Dry Mouth, Dysphagia, Halitosis, Hoarsness, Lip Swelling, Mouth Lesions, Mouth Pain, Odynophagia, Sore Throat, Throat Swelling, Tongue Swelling, Facial Pain, Neck Pain, Neck Mass, Other - Cardiovascular Cardiovascular: absent: As Per HPI, Acrocyanosis, Chest Pain, Chest Pain at Rest , Chest Pain with Activity, Claudication, Diaphoresis, Dyspnea, Dyspnea on Exertion, Edema, Irregular Heart Rhythm, Pain Radiating to Arm/Neck/Jaw, Leg Edema, Leg Ulcers, Lightheadedness, Orthopnea, Palpitations, Paroxysmal Nocturnal Dyspnea, Pedal Edema, Radiating Pain, Rapid Heart Rate, Slow Heart Rate, Syncope, Other - Respiratory Respiratory: Cough, Dyspnea - Gastrointestinal Gastrointestinal: absent: As Per HPI, Abdominal Pain, Belching, Bloating, Change in Bowel Habits, Change in Stool Character, Coffee Ground Emesis, Constipation, Cramping, Diarrhea, Dyspepsia, Dysphagia, Early Satiety, Excessive Flatus, Fecal Incontinence, Heartburn, Hematemesis, Hematochezia, Loose Stools, Melena, Nausea, Odynophagia, Temesmus, Vomiting, Other - Genitourinary Genitourinary: absent: As Per HPI, Change in Urinary Stream, Difficulty Urinating, Dysuria, Flank Pain, Hematuria, Pyuria, Nocturia, Urinary Incontinence, Urinary Frequency, Urinary Hesitance, Urinary Urgency, Voiding Freq/Small Amts, Freq UTI, Hx Renal/Bladder Calculi, Hx /Renal Surgery, Bladder Distension, Other - Musculoskeletal Musculoskeletal: Back Pain, Muscle Weakness, Myalgias, Numbness - Integumentary Integumentary: Erythema, Non-Healing Lesions, Skin Ulcer - Neurological Neurological: absent: As Per HPI, Abnormal Gait, Abnormal Hearing, Abnormal Movements, Abnormal Speech, Behavioral Changes, Burning Sensations, Confusion, Convulsions, Disequilibrium, Dizziness, Numbness, Focal Weakness, Frequent Falls , Headaches, Lack of Coordination, Loss of Vision, Memory Loss, Paresthesias, Radicular Pain, Restless Legs, Sensory Deficit, Syncope, Tingling, Tremor, Vertigo, Weakness, Other Visual Disturbances, Other - Psychiatric Psychiatric: Abnormal Sleep Pattern, Anxiety - Endocrine Endocrine: Fatigue, Polydipsia, Polyphagia, Polyuria Past Patient History - Infectious Disease Hx of Infectious Diseases: None - Tetanus Immunizations Tetanus Immunization: Unknown - Past Medical History & Family History Past Medical History?: Yes - Past Social History Smoking Status: Never Smoked - CARDIAC Hx Congestive Heart Failure: Yes Hx Hypercholesterolemia: Yes Hx Hypertension: Yes Hx Peripheral Edema: Yes (+3 pitting ble) - PULMONARY Hx Asthma: Yes Hx Chronic Obstructive Pulmonary Disease (COPD): Yes Hx Pneumonia: Yes Hx Pulmonary Embolism: Yes Hx Sleep Apnea: Yes - NEUROLOGICAL Hx Neurological Disorder: No - HEENT Hx HEENT Problems: No - RENAL Hx Chronic Kidney Disease: Yes (required HD in 2016 briefly) - ENDOCRINE/METABOLIC Hx Hyperthyroidism: Yes Hx Hypothyroidism: Yes - HEMATOLOGICAL/ONCOLOGICAL Hx Blood Disorders: No - INTEGUMENTARY Hx Dermatological Problems: Yes Other/Comment: both leggs discolored,. CHRONIC LEG ULCERS - MUSCULOSKELETAL/RHEUMATOLOGICAL Hx Arthritis: Yes Hx Fractures: Yes - GASTROINTESTINAL Hx Gastrointestinal Disorders: (reflux obese) - GENITOURINARY/GYNECOLOGICAL Hx Reproductive Disorders: No - PSYCHIATRIC Hx Depression: Yes Hx Substance Use: No - SURGICAL HISTORY Hx Surgeries: Yes Hx Orthopedic Surgery: Yes (bilateral knee replacement) Other/Comment: total left knee - 1998. right ankle screws - 1987. right hip shyam - 1982,. LEG WOUND DEBRIDEMENTS - ANESTHESIA Hx Anesthesia: Yes Hx Anesthesia Reactions: No Hx Malignant Hyperthermia: No Meds Allergies/Adverse Reactions: Allergies Allergy/AdvReac Type Severity Reaction Status Date / Time No Known Allergies Allergy Verified 03/14/18 09:48 Physical Exam - Constitutional Appears: No Acute Distress - Head Exam Head Exam: ATRAUMATIC, NORMAL INSPECTION, NORMOCEPHALIC - Eye Exam Eye Exam: EOMI, Normal appearance, PERRL Pupil Exam: NORMAL ACCOMODATION, PERRL - Respiratory Exam Respiratory Exam: Clear to Auscultation Bilateral, NORMAL BREATHING PATTERN - Cardiovascular Exam Cardiovascular Exam: REGULAR RHYTHM - GI/Abdominal Exam GI & Abdominal Exam: Normal Bowel Sounds, Soft. absent: Tenderness Results - Vital Signs Recent Vital Signs: Last Vital Signs Temp 97.8 F 03/14/18 15:00 Pulse 83 03/14/18 15:00 Resp 18 03/14/18 15:00 BP 123/84 03/14/18 17:42 Pulse Ox 96 03/14/18 17:40 - Labs Result Diagrams: 03/14/18 10:23 03/14/18 10:23 Labs: Laboratory Results - last 24 hr 03/14/18 03/14/18 03/14/18 10:23 10:23 10:23 WBC 7.9 RBC 4.18 L Hgb 10.4 L Hct 32.5 L MCV 77.7 L MCH 24.8 L MCHC 31.9 L RDW 17.8 H Plt Count 246 D MPV 9.2 Neut % (Auto) 74.8 Lymph % (Auto) 14.2 L [place] % (Auto) 5.3 Eos % (Auto) 4.9 H Baso % (Auto) 0.8 Neut # (Auto) 5.9 Lymph # (Auto) 1.1 [place] # (Auto) 0.4 Eos # (Auto) 0.4 Baso # (Auto) 0.1 PT 22.5 H INR 1.9 APTT 29 Sodium 137 Potassium 5.1 Chloride 98 Carbon Dioxide 27 Anion Gap 18 BUN 10 Creatinine 1.0 Est GFR ( Amer) > 60 Est GFR (Non-Af Amer) > 60 POC Glucose (mg/dL) Random Glucose 139 H Calcium 8.9 Total Bilirubin 1.0 AST 33 ALT 22 Alkaline Phosphatase 143 H D Total Protein 8.8 H Albumin 3.6 Globulin 5.1 H Albumin/Globulin Ratio 0.7 L 03/14/18 03/14/18 03/14/18 12:17 16:34 21:00 WBC RBC Hgb Hct MCV MCH MCHC RDW Plt Count MPV Neut % (Auto) Lymph % (Auto) [place] % (Auto) Eos % (Auto) Baso % (Auto) Neut # (Auto) Lymph # (Auto) [place] # (Auto) Eos # (Auto) Baso # (Auto) PT INR APTT Sodium Potassium Chloride Carbon Dioxide Anion Gap BUN Creatinine Est GFR ( Amer) Est GFR (Non-Af Amer) POC Glucose (mg/dL) 123 H 240 H 124 H Random Glucose Calcium Total Bilirubin AST ALT Alkaline Phosphatase Total Protein Albumin Globulin Albumin/Globulin Ratio Assessment & Plan (1) Fall Status: Acute (2) HTN (hypertension) Status: Acute (3) Diabetes Status: Acute (4) Cellulitis Status: Acute (5) Wrist fracture Status: Acute (6) Leg ulcer, left Status: Chronic
[2018-03-15] MEDS: oxyCODONE 80 mg ER Tab (oxyCONTIN) PO SCH ×5 (01:16→23:55)
[2018-03-15] MEDS: Oxycodone/Acetaminophen 5/325 mg Tab PO PRN ×5 (02:15→21:30)
[2018-03-15] MEDS: Levothyroxine 75 MCG TAB PO SCH (06:22)
[2018-03-15] MEDS: (Novolin R) Insulin Human Regular 100 units/ml vial SC SCH ×4 (07:22→21:31)
[2018-03-15] MEDS: Fluticasone-Salmeterol 250-50mcg Diskus IH SCH ×2 (07:23→19:11)
[2018-03-15] MEDS ORDERED: Enoxaparin 40 mg Syringe SC SCH (10:00)
[2018-03-15] MEDS ORDERED: Potassium Chloride 20 mEq ER Tab PO SCH ×2 (10:00)
[2018-03-15] MEDS: Multivitamin With Minerals Tab PO SCH (10:25)
--- NOTE | 2018-03-15 11:41 | CP.PCM.PN ---
Subjective - Date & Time of Evaluation Date of Evaluation: 03/15/18 Time of Evaluation: 11:39 - Subjective Subjective: Ortho f/u Dr. Young full consult to follow 57M complains of left wrist pain after fall, he says "I heard it crack" he uses walker for ambulation, and also complains of non healing ulcer to leg with foul odor. PMH: DM, hyperlipid, HTN, chronic DVT, chronic ulcer LHD, says he does everything with his left hand Objective - Vital Signs/Intake and Output Vital Signs (last 24 hours): Temp Pulse Resp BP Pulse Ox 97.5 F L 73 20 123/75 95 03/15/18 07:34 03/15/18 07:34 03/15/18 07:34 03/15/18 10:25 03/15/18 07:34 Intake and Output: 03/15/18 03/15/18 06:59 18:59 Intake Total 400 Output Total 700 Balance -300 - Medications Medications: Current Medications Acetaminophen (Tylenol 325mg Tab) 650 mg PO Q6 PRN PRN Reason: Headache Docusate Sodium (Colace) 100 mg PO DAILY [facility] Last Admin: 03/15/18 10:25 Dose: 100 mg Furosemide (Lasix) 40 mg PO BID [facility] Last Admin: 03/15/18 10:25 Dose: 40 mg Hydralazine HCl (Apresoline) 25 mg PO Q8 [facility] Last Admin: 03/15/18 06:22 Dose: 25 mg Insulin Human Regular (Novolin R) 0 unit SC ACHS [facility] PRN Reason: Protocol Last Admin: 03/15/18 07:22 Dose: Not Given Levothyroxine Sodium (Synthroid) 75 mcg PO DAILY@0630 [facility] Last Admin: 03/15/18 06:22 Dose: 75 mcg Metformin HCl (Glucophage Xr) 500 mg PO BID [facility] Last Admin: 03/15/18 10:25 Dose: 500 mg Multivitamins/Minerals (Therapeutic-M Tab) 1 tab PO DAILY [facility] Last Admin: 03/15/18 10:25 Dose: 1 tab Oxycodone HCl (Oxycontin Extended Release Tab) 80 mg PO Q6 [facility] Last Admin: 03/15/18 07:36 Dose: 80 mg Oxycodone/Acetaminophen (Percocet 5/325 Mg Tab) 2 tab PO Q4H PRN PRN Reason: Pain, severe (8-10) Stop: 03/17/18 17:07 Last Admin: 03/15/18 10:25 Dose: 2 tab Potassium Chloride (K-Dur 20 Meq Er Tab) 20 meq PO DAILY [facility] Fluticasone/Salmeterol (Advair Diskus 250/50) 1 puff IH RQ12 [facility] Last Admin: 03/15/18 07:23 Dose: 1 puff Sitagliptin Phosphate (Januvia) 50 mg PO DAILY [facility] Last Admin: 03/15/18 10:25 Dose: 50 mg - Labs Labs: 03/14/18 10:23 03/14/18 10:23 PT 22.5 SECONDS (9.7-12.2) H 03/14/18 10:23 INR 1.9 03/14/18 10:23 APTT 29 SECONDS (21-34) 03/14/18 10:23 - Extremities Exam Additional comments: Left wrist, elevated, splint intact, +ROM fingers, sensation intact, +cap refill patient refusing to get out of bed, says he can't use walker with one hand, out of bed and ambulation encouraged Assessment and Plan (1) Closed fracture of left distal radius Assessment & Plan: impacted acceptable position as per Dr. Young per Dr. Young, wrist splint ordered, awaiting PO orthopedically stable for d/c rehab placement pending due to fact patient lives alone, uses walker at bedside , risk for falls, NWB LUE, can not care for self OOB PT/OT d/w Dr. Young, agrees with above Status: Acute
[2018-03-15 16:55] LABS: PROTHROMBIN TIME 23.5 SECONDS (9.7-12.2)
--- NOTE | 2018-03-15 23:07 | CP.PCM.PN ---
Subjective - Date & Time of Evaluation Date of Evaluation: 03/15/18 Time of Evaluation: 18:40 - Subjective Subjective: Pt seen and examined, pt has cast on his left wrist,pt has purulent discharge from left leg wound has to be seen by podiatry Objective - Vital Signs/Intake and Output Vital Signs (last 24 hours): Temp Pulse Resp BP Pulse Ox 98.2 F 84 20 105/70 95 03/15/18 15:12 03/15/18 21:34 03/15/18 15:12 03/15/18 21:34 03/15/18 15:12 Intake and Output: 03/15/18 03/16/18 18:59 06:59 Intake Total 500 300 Output Total 700 Balance 500 -400 - Medications Medications: Current Medications Acetaminophen (Tylenol 325mg Tab) 650 mg PO Q6 PRN PRN Reason: Headache Docusate Sodium (Colace) 100 mg PO DAILY [facility] Last Admin: 03/15/18 10:25 Dose: 100 mg Furosemide (Lasix) 40 mg PO BID [facility] Last Admin: 03/15/18 18:35 Dose: 40 mg Hydralazine HCl (Apresoline) 25 mg PO Q8 [facility] Last Admin: 03/15/18 21:31 Dose: 25 mg Insulin Human Regular (Novolin R) 0 unit SC ACHS [facility] PRN Reason: Protocol Last Admin: 03/15/18 21:31 Dose: Not Given Levothyroxine Sodium (Synthroid) 75 mcg PO DAILY@0630 [facility] Last Admin: 03/15/18 06:22 Dose: 75 mcg Metformin HCl (Glucophage Xr) 500 mg PO BID [facility] Last Admin: 03/15/18 18:32 Dose: 500 mg Multivitamins/Minerals (Therapeutic-M Tab) 1 tab PO DAILY [facility] Last Admin: 03/15/18 10:25 Dose: 1 tab Mupirocin (Bactroban Ointment) 1 gm TOP BID [facility] Last Admin: 03/15/18 18:38 Dose: Not Given Nystatin (Nystop Topical Powder) 1 applic TOP BID [facility] Last Admin: 03/15/18 21:31 Dose: Not Given Oxycodone HCl (Oxycontin Extended Release Tab) 80 mg PO Q6 [facility] Last Admin: 03/15/18 18:32 Dose: 80 mg Oxycodone/Acetaminophen (Percocet 5/325 Mg Tab) 2 tab PO Q4H PRN PRN Reason: Pain, severe (8-10) Stop: 03/17/18 17:07 Last Admin: 03/15/18 21:30 Dose: 2 tab Fluticasone/Salmeterol (Advair Diskus 250/50) 1 puff IH RQ12 [facility] Last Admin: 03/15/18 19:11 Dose: 1 puff Sitagliptin Phosphate (Januvia) 50 mg PO DAILY [facility] Last Admin: 03/15/18 10:25 Dose: 50 mg - Labs Labs: 03/14/18 10:23 03/14/18 10:23 PT 23.5 SECONDS (9.7-12.2) H 03/15/18 16:44 INR 2.0 03/15/18 16:44 APTT 29 SECONDS (21-34) 03/14/18 10:23 - Constitutional Appears: No Acute Distress - Head Exam Head Exam: ATRAUMATIC, NORMAL INSPECTION, NORMOCEPHALIC - Eye Exam Eye Exam: EOMI, Normal appearance, PERRL Pupil Exam: NORMAL ACCOMODATION, PERRL - Respiratory Exam Respiratory Exam: Clear to Ausculation Bilateral, NORMAL BREATHING PATTERN - Cardiovascular Exam Cardiovascular Exam: REGULAR RHYTHM, +S1, +S2. absent: Murmur - GI/Abdominal Exam GI & Abdominal Exam: Soft, Normal Bowel Sounds. absent: Tenderness - Neurological Exam Neurological Exam: Alert, Awake, CN II-XII Intact, Normal Gait, Oriented x3 - Psychiatric Exam Psychiatric exam: Normal Affect, Normal Mood Assessment and Plan (1) Fall Status: Acute (2) HTN (hypertension) Status: Acute (3) Diabetes Status: Acute (4) Cellulitis Status: Acute (5) Wrist fracture Status: Acute (6) Leg ulcer, left Status: Chronic
--- NOTE | 2018-03-16 00:56 | CON ---
DATE: I was called in by Dr. Estrada Albright to evaluate his left wrist. HISTORY OF PRESENT ILLNESS: This patient gives a history of sustaining a fall on the day before admission. He started experiencing pain and painful limitation of range of motion of the wrist. He also had significant amount of swelling. PHYSICAL EXAMINATION: Examination revealed 2+ swelling of the wrist. The patient was initially seen in the emergency room, was treated with anterior volar splint. Examination reveals swelling of the fingers and wrist, and the patient is able to move the fingers and thumb. Capillary refilling is excellent, not complaining of any sensory loss. No motor or sensory deficits are noted to the best I could examine to the splint. RADIOLOGIC DATA: X-rays of the distal radius and wrist reveal impacted fracture of the distal end of the radius. DIAGNOSIS: Impacted fracture of the left distal radius. PLAN: At this point, we will continue the anterior volar splint until the swelling subsides, at which time we may convert him to a short arm cast and we will follow. Remy Young MD
[2018-03-16] MEDS: oxyCODONE 80 mg ER Tab (oxyCONTIN) PO SCH ×4 (05:59→23:59)
[2018-03-16] MEDS: Levothyroxine 75 MCG TAB PO SCH (06:00)
[2018-03-16] MEDS: Fluticasone-Salmeterol 250-50mcg Diskus IH SCH ×2 (07:42→19:51)
[2018-03-16] MEDS: (Novolin R) Insulin Human Regular 100 units/ml vial SC SCH ×4 (07:46→21:28)
[2018-03-16 08:03] LABS: INR 1.9
[2018-03-16 08:04] LABS: MEAN CELL VOLUME 77.8 fL (80.0-94.0); MEAN CORPUSCULAR HEMOGLOBIN 25.4 pg (27.0-31.0); MEAN CORPUSCULAR HGB CONC 32.7 g/dL (33.0-37.0); MEAN PLATELET VOLUME 9.1 fL (7.2-11.7); RBC 3.92 Mil/uL (4.40-5.90); RED CELL DISTRIBUTION WIDTH 17.9 % (11.5-14.5); WHITE BLOOD COUNT 7.7 K/uL (4.8-10.8)
[2018-03-16 08:24] LABS: CALCIUM 8.7 mg/dl (8.6-10.4)
--- NOTE | 2018-03-16 08:43 | CP.PCM.PN ---
Subjective - Date & Time of Evaluation Date of Evaluation: 03/16/18 Time of Evaluation: 08:41 - Subjective Subjective: Patient states wrist is still painful. No new complaints. Denies numbness/ tingling. Review of Systems - Review of Systems All systems: reviewed and no additional remarkable complaints except - Musculoskeletal Musculoskeletal: As Par HPI Objective - Vital Signs/Intake and Output Vital Signs (last 24 hours): Temp Pulse Resp BP Pulse Ox 97.4 F L 75 20 117/71 96 03/16/18 07:41 03/16/18 07:41 03/16/18 07:41 03/16/18 07:41 03/16/18 07:41 Intake and Output: 03/16/18 03/16/18 06:59 18:59 Intake Total 300 Output Total 1600 Balance -1300 - Medications Medications: Current Medications Acetaminophen (Tylenol 325mg Tab) 650 mg PO Q6 PRN PRN Reason: Headache Docusate Sodium (Colace) 100 mg PO DAILY [facility] Last Admin: 03/15/18 10:25 Dose: 100 mg Furosemide (Lasix) 40 mg PO BID [facility] Last Admin: 03/15/18 18:35 Dose: 40 mg Hydralazine HCl (Apresoline) 25 mg PO Q8 [facility] Last Admin: 03/16/18 05:59 Dose: 25 mg Insulin Human Regular (Novolin R) 0 unit SC ACHS [facility] PRN Reason: Protocol Last Admin: 03/16/18 07:46 Dose: Not Given Levothyroxine Sodium (Synthroid) 75 mcg PO DAILY@0630 [facility] Last Admin: 03/16/18 06:00 Dose: 75 mcg Metformin HCl (Glucophage Xr) 500 mg PO BID [facility] Last Admin: 03/15/18 18:32 Dose: 500 mg Multivitamins/Minerals (Therapeutic-M Tab) 1 tab PO DAILY [facility] Last Admin: 03/15/18 10:25 Dose: 1 tab Mupirocin (Bactroban Ointment) 1 gm TOP BID [facility] Last Admin: 03/15/18 18:38 Dose: Not Given Nystatin (Nystop Topical Powder) 1 applic TOP BID [facility] Last Admin: 03/15/18 21:31 Dose: Not Given Oxycodone HCl (Oxycontin Extended Release Tab) 80 mg PO Q6 [facility] Last Admin: 03/16/18 05:59 Dose: 80 mg Oxycodone/Acetaminophen (Percocet 5/325 Mg Tab) 2 tab PO Q4H PRN PRN Reason: Pain, severe (8-10) Stop: 03/17/18 17:07 Last Admin: 03/15/18 21:30 Dose: 2 tab Fluticasone/Salmeterol (Advair Diskus 250/50) 1 puff IH RQ12 [facility] Last Admin: 03/16/18 07:42 Dose: 1 puff Sitagliptin Phosphate (Januvia) 50 mg PO DAILY [facility] Last Admin: 03/15/18 10:25 Dose: 50 mg - Labs Labs: 03/16/18 07:53 03/16/18 07:53 PT 22.0 SECONDS (9.7-12.2) H 03/16/18 07:53 INR 1.9 03/16/18 07:53 APTT 29 SECONDS (21-34) 03/14/18 10:23 - Constitutional Appears: Well, No Acute Distress - Head Exam Head Exam: ATRAUMATIC - Neck Exam Neck Exam: Full ROM - Respiratory Exam Respiratory Exam: NORMAL BREATHING PATTERN - Cardiovascular Exam Additional comments: +cap refill, fingers warm - Extremities Exam Extremities Exam: Full ROM Additional comments: sensation intact - Neurological Exam Neurological Exam: Alert, Awake, Oriented x3 Neuro motor strength exam: Left Upper Extremity: 5 - Psychiatric Exam Psychiatric exam: Normal Affect, Normal Mood - Skin Skin Exam: Dry, Intact, Normal Color, Warm Assessment and Plan (1) Closed fracture of left distal radius Assessment & Plan: per Dr. Young, non op splint vs short arm cast when swelling improved ortho stable elevate d/w Dr. Young, agrees with above Status: Acute
[2018-03-16] MEDS: Oxycodone/Acetaminophen 5/325 mg Tab PO PRN ×3 (08:52→20:42)
[2018-03-16] MEDS: Multivitamin With Minerals Tab PO SCH (10:00)
[2018-03-16] MEDS ORDERED: Ferrous Fum/Folic Acid/IF/VI 1 Cap PO SCH (11:30)
--- NOTE | 2018-03-16 15:18 | CP.PCM.CON ---
History of Present Illness - History of Present Illness History of Present Illness: Podiatry Consult Note- Dr. Laguna. 57 year old male, PMHx includes chronic leg ulcers, well known to podiatry, seen at bedside regarding chronic recurrent wound to left lower extremity. Patient reports he noticed redness and increased drainage to left lower leg, with and increase in pain level to a peak 4/10. Patient was seen by Dr. Laguna in the wound care center weekly. He denies recent fever, chills, weakness, or numbness. Patient denies any other pedal complaints at this time. Past Patient History - Infectious Disease Hx of Infectious Diseases: None - Tetanus Immunizations Tetanus Immunization: Unknown - Past Medical History & Family History Past Medical History?: Yes - Past Social History Smoking Status: Never Smoked - CARDIAC Hx Congestive Heart Failure: Yes Hx Hypercholesterolemia: Yes Hx Hypertension: Yes - PULMONARY Hx Chronic Obstructive Pulmonary Disease (COPD): Yes - NEUROLOGICAL Hx Neurological Disorder: No - HEENT Hx HEENT Problems: No - RENAL Hx Chronic Kidney Disease: Yes (required HD in 2016 briefly) - ENDOCRINE/METABOLIC Hx Hypothyroidism: Yes - HEMATOLOGICAL/ONCOLOGICAL Hx Blood Disorders: No - INTEGUMENTARY Hx Dermatological Problems: Yes Other/Comment: both leggs discolored,. CHRONIC LEG ULCERS - MUSCULOSKELETAL/RHEUMATOLOGICAL Hx Arthritis: Yes - GASTROINTESTINAL Hx Gastrointestinal Disorders: (reflux obese) - GENITOURINARY/GYNECOLOGICAL Hx Reproductive Disorders: No - PSYCHIATRIC Hx Depression: Yes Hx Substance Use: No - SURGICAL HISTORY Hx Surgeries: Yes Hx Orthopedic Surgery: Yes (bilateral knee replacement) Other/Comment: total left knee - 1998. right ankle screws - 1987. right hip shyam - 1982,. LEG WOUND DEBRIDEMENTS - ANESTHESIA Hx Anesthesia: Yes Hx Anesthesia Reactions: No Hx Malignant Hyperthermia: No Meds Allergies/Adverse Reactions: Allergies Allergy/AdvReac Type Severity Reaction Status Date / Time No Known Allergies Allergy Verified 03/14/18 09:48 - Medications Medications: Current Medications Acetaminophen (Tylenol 325mg Tab) 650 mg PO Q6 PRN PRN Reason: Headache Docusate Sodium (Colace) 100 mg PO DAILY [facility] Last Admin: 03/16/18 10:00 Dose: 100 mg Furosemide (Lasix) 40 mg PO BID [facility] Last Admin: 03/16/18 10:00 Dose: 40 mg Hydralazine HCl (Apresoline) 25 mg PO Q8 [facility] Last Admin: 03/16/18 13:49 Dose: 25 mg Insulin Human Regular (Novolin R) 0 unit SC ACHS [facility] PRN Reason: Protocol Last Admin: 03/16/18 12:37 Dose: 1 unit Iron (Ferocon) 1 cap PO DAILY [facility] Last Admin: 03/16/18 12:48 Dose: 1 cap Levothyroxine Sodium (Synthroid) 75 mcg PO DAILY@0630 [facility] Last Admin: 03/16/18 06:00 Dose: 75 mcg Metformin HCl (Glucophage Xr) 500 mg PO BID [facility] Last Admin: 03/16/18 10:00 Dose: 500 mg Multivitamins/Minerals (Therapeutic-M Tab) 1 tab PO DAILY [facility] Last Admin: 03/16/18 10:00 Dose: 1 tab Mupirocin (Bactroban Ointment) 1 gm TOP BID [facility] Last Admin: 03/16/18 10:03 Dose: 1 applic Nystatin (Nystop Topical Powder) 1 applic TOP BID [facility] Last Admin: 03/16/18 10:03 Dose: 1 applic Oxycodone HCl (Oxycontin Extended Release Tab) 80 mg PO Q6 [facility] Last Admin: 03/16/18 12:35 Dose: 80 mg Oxycodone/Acetaminophen (Percocet 5/325 Mg Tab) 2 tab PO Q4H PRN PRN Reason: Pain, severe (8-10) Stop: 03/17/18 17:07 Last Admin: 03/16/18 08:52 Dose: 2 tab Fluticasone/Salmeterol (Advair Diskus 250/50) 1 puff IH RQ12 [facility] Last Admin: 03/16/18 07:42 Dose: 1 puff Sitagliptin Phosphate (Januvia) 50 mg PO DAILY [facility] Last Admin: 03/16/18 10:01 Dose: 50 mg Warfarin Sodium (Coumadin) 7.5 mg PO 1800 [facility] Stop: 03/16/18 18:01 Physical Exam - Constitutional Appears: Well, Non-toxic, No Acute Distress - Extremities Exam Additional comments: Lower extremity focused exam: strikethough noted to outer layer of dressings bilaterally. Vasc: Non-palpable pedal pulses due to edema b/l, TG warm to warm, CFT < 3 sec to all digits, +1 pitting edema Derm: +1 pitting edema to legs bilaterally. Localized mild non-streaking, blanchable periwound erythema to mid-calf level bilateral. Left: Multiple open ulcerations noted to the to Anterior and lateral and posterior aspect of the left leg circumferentally extending from tibial tuberosity to lateral malleolus. With heavy active serosanguinous drainage, wound base is 100% granular with shital-wound macerations. No purulence noted, moderate malodor noted. Right: Open superficial ulceration noted to the medial aspect of leg at mid- calf level aprroximately 6 x 5 cm. With moderate active serosanguinous drainage , wound base is 100% granular with shital-wound macerations. No purulence noted, moderate malodor noted. Neuro: sensation grossly diminished MUSC: pain on palpation of posterior and medial legs b/l - Neurological Exam Neurological exam: Alert, Oriented x3 - Psychiatric Exam Psychiatric exam: Normal Affect, Normal Mood Results - Vital Signs Recent Vital Signs: Last Vital Signs Temp 97.4 F L 03/16/18 07:41 Pulse 75 03/16/18 07:41 Resp 20 03/16/18 07:41 BP 121/76 03/16/18 10:00 Pulse Ox 96 03/16/18 07:41 - Labs Result Diagrams: 03/16/18 07:53 03/16/18 07:53 Labs: Laboratory Results - last 24 hr 03/15/18 03/15/18 03/15/18 15:49 16:44 20:55 WBC RBC Hgb Hct MCV MCH MCHC RDW Plt Count MPV PT 23.5 H INR 2.0 Sodium Potassium Chloride Carbon Dioxide Anion Gap BUN Creatinine Est GFR ( Amer) Est GFR (Non-Af Amer) POC Glucose (mg/dL) 135 H 146 H Random Glucose Calcium 03/16/18 03/16/18 03/16/18 06:03 07:53 07:53 WBC 7.7 RBC 3.92 L Hgb 10.0 L Hct 30.5 L MCV 77.8 L MCH 25.4 L MCHC 32.7 L RDW 17.9 H Plt Count 238 MPV 9.1 PT 22.0 H INR 1.9 Sodium Potassium Chloride Carbon Dioxide Anion Gap BUN Creatinine Est GFR ( Amer) Est GFR (Non-Af Amer) POC Glucose (mg/dL) 122 H Random Glucose Calcium 03/16/18 03/16/18 07:53 11:23 WBC RBC Hgb Hct MCV MCH MCHC RDW Plt Count MPV PT INR Sodium 137 Potassium 4.3 Chloride 96 L Carbon Dioxide 30 Anion Gap 15 BUN 21 H Creatinine 1.5 Est GFR ( Amer) 58 Est GFR (Non-Af Amer) 48 POC Glucose (mg/dL) 174 H Random Glucose 126 H Calcium 8.7 Assessment & Plan - Assessment and Plan (Free Text) Assessment: 57 year old male seen at bedside regarding bilateral lower leg chronic non- healing ulcertions secondary to CHF and venous insufficiency. Plan: patient evaluated & treated. Discussed in detail with attending Dr. Laguna. Chart, labs, and vitals reviewed; afebrile, WBC=7.7, afebrile. Left leg wound cx taken-results pending. applied bactroban, telfa, DSD, JOSE to bilateral lower legs. Activity, weightbearing as tolerated. podiatry will continue to follow while patient remains in house - Date & Time Date: 03/16/18 Time: 10:40
--- NOTE | 2018-03-16 23:29 | CP.PCM.PN ---
Subjective - Date & Time of Evaluation Date of Evaluation: 03/16/18 Time of Evaluation: 19:00 - Subjective Subjective: Pt seen and examined,c/o wrist pain. Patient reports he noticed redness and increased drainage to left lower leg, with and increase in pain level to a peak 4/10. Patient was seen by Dr. Laguna in the wound care center weekly. He denies recent fever, chills, weakness, or numbness. Patient denies any other pedal complaints at this time. Objective - Vital Signs/Intake and Output Vital Signs (last 24 hours): Temp Pulse Resp BP Pulse Ox 98.3 F 83 18 122/85 97 03/16/18 20:29 03/16/18 20:29 03/16/18 20:29 03/16/18 20:29 03/16/18 20:29 Intake and Output: 03/16/18 03/17/18 18:59 06:59 Intake Total 500 Output Total 1300 Balance 500 -1300 - Medications Medications: Current Medications Acetaminophen (Tylenol 325mg Tab) 650 mg PO Q6 PRN PRN Reason: Headache Docusate Sodium (Colace) 100 mg PO DAILY [facility] Last Admin: 03/16/18 10:00 Dose: 100 mg Furosemide (Lasix) 40 mg PO BID [facility] Last Admin: 03/16/18 17:44 Dose: 40 mg Hydralazine HCl (Apresoline) 25 mg PO Q8 [facility] Last Admin: 03/16/18 21:33 Dose: 25 mg Insulin Human Regular (Novolin R) 0 unit SC ACHS [facility] PRN Reason: Protocol Last Admin: 03/16/18 21:28 Dose: Not Given Iron (Ferocon) 1 cap PO DAILY [facility] Levothyroxine Sodium (Synthroid) 75 mcg PO DAILY@0630 [facility] Last Admin: 03/16/18 06:00 Dose: 75 mcg Metformin HCl (Glucophage Xr) 500 mg PO BID [facility] Last Admin: 03/16/18 17:39 Dose: 500 mg Multivitamins/Minerals (Therapeutic-M Tab) 1 tab PO DAILY [facility] Last Admin: 03/16/18 10:00 Dose: 1 tab Mupirocin (Bactroban Ointment) 1 gm TOP BID [facility] Last Admin: 03/16/18 17:42 Dose: Not Given Nystatin (Nystop Topical Powder) 1 applic TOP BID [facility] Last Admin: 03/16/18 17:42 Dose: 1 applic Oxycodone HCl (Oxycontin Extended Release Tab) 80 mg PO Q6 [facility] Last Admin: 03/16/18 17:39 Dose: 80 mg Oxycodone/Acetaminophen (Percocet 5/325 Mg Tab) 2 tab PO Q4H PRN PRN Reason: Pain, severe (8-10) Stop: 03/17/18 17:07 Last Admin: 03/16/18 20:42 Dose: 2 tab Fluticasone/Salmeterol (Advair Diskus 250/50) 1 puff IH RQ12 [facility] Last Admin: 03/16/18 19:51 Dose: 1 puff Sitagliptin Phosphate (Januvia) 50 mg PO DAILY [facility] Last Admin: 03/16/18 10:01 Dose: 50 mg - Labs Labs: 03/16/18 07:53 03/16/18 07:53 PT 22.0 SECONDS (9.7-12.2) H 03/16/18 07:53 INR 1.9 03/16/18 07:53 APTT 29 SECONDS (21-34) 03/14/18 10:23 - Constitutional Appears: No Acute Distress - Head Exam Head Exam: ATRAUMATIC, NORMAL INSPECTION, NORMOCEPHALIC - Eye Exam Eye Exam: EOMI, Normal appearance, PERRL Pupil Exam: NORMAL ACCOMODATION, PERRL - Respiratory Exam Respiratory Exam: Clear to Ausculation Bilateral, NORMAL BREATHING PATTERN - Cardiovascular Exam Cardiovascular Exam: REGULAR RHYTHM, +S1, +S2. absent: Murmur - GI/Abdominal Exam GI & Abdominal Exam: Soft, Normal Bowel Sounds. absent: Tenderness Assessment and Plan (1) Fall Status: Acute (2) HTN (hypertension) Status: Acute (3) Diabetes Status: Acute (4) Cellulitis Status: Acute (5) Wrist fracture Status: Acute (6) Leg ulcer, left Status: Chronic
[2018-03-17] MEDS: Oxycodone/Acetaminophen 5/325 mg Tab PO PRN ×5 (04:14→22:58)
[2018-03-17] MEDS: Levothyroxine 75 MCG TAB PO SCH (05:45)
[2018-03-17] MEDS: oxyCODONE 80 mg ER Tab (oxyCONTIN) PO SCH ×3 (05:45→17:21)
[2018-03-17] MEDS: (Novolin R) Insulin Human Regular 100 units/ml vial SC SCH ×4 (08:08→22:07)
[2018-03-17 08:38] LABS: HEMOGLOBIN 10.3 g/dL (12.0-18.0); MEAN CELL VOLUME 76.9 fL (80.0-94.0); MEAN CORPUSCULAR HEMOGLOBIN 25.3 pg (27.0-31.0); MEAN PLATELET VOLUME 9.2 fL (7.2-11.7); RBC 4.04 Mil/uL (4.40-5.90); WHITE BLOOD COUNT 7.4 K/uL (4.8-10.8)
[2018-03-17 08:51] LABS: CALCIUM 8.9 mg/dl (8.6-10.4)
--- NOTE | 2018-03-17 08:54 | CP.PCM.PN ---
Subjective - Date & Time of Evaluation Date of Evaluation: 03/17/18 Time of Evaluation: 08:53 - Subjective Subjective: Patient still complaining of significantpain in his left wrist, says he is RHD but does everything with his left wrist. Denies numbness/tingling. Review of Systems - Review of Systems Review of Systems: denies fever/chills - Cardiovascular Cardiovascular: UNREMARKABLE - Respiratory Respiratory: UNREMARKABLE - Gastrointestinal Gastrointestinal: UNREMARKABLE - Musculoskeletal Musculoskeletal: As Par HPI - Integumentary Additional comments: chronic ulcer - Neurological Neurological: As Per HPI - Hematologic/Lymphatic Hematologic: UNREMARKABLE Objective - Vital Signs/Intake and Output Vital Signs (last 24 hours): Temp Pulse Resp BP Pulse Ox 98.0 F 83 19 116/62 97 03/17/18 08:20 03/17/18 08:20 03/17/18 08:20 03/17/18 08:20 03/17/18 08:20 Intake and Output: 03/17/18 03/17/18 06:59 18:59 Output Total 2500 Balance -2500 - Medications Medications: Current Medications Acetaminophen (Tylenol 325mg Tab) 650 mg PO Q6 PRN PRN Reason: Headache Docusate Sodium (Colace) 100 mg PO DAILY [facility] Last Admin: 03/16/18 10:00 Dose: 100 mg Furosemide (Lasix) 40 mg PO BID [facility] Last Admin: 03/16/18 17:44 Dose: 40 mg Hydralazine HCl (Apresoline) 25 mg PO Q8 [facility] Last Admin: 03/17/18 05:45 Dose: 25 mg Insulin Human Regular (Novolin R) 0 unit SC ACHS [facility] PRN Reason: Protocol Last Admin: 03/17/18 08:08 Dose: Not Given Iron (Ferocon) 1 cap PO DAILY [facility] Levothyroxine Sodium (Synthroid) 75 mcg PO DAILY@0630 [facility] Last Admin: 03/17/18 05:45 Dose: 75 mcg Metformin HCl (Glucophage Xr) 500 mg PO BID [facility] Last Admin: 03/16/18 17:39 Dose: 500 mg Multivitamins/Minerals (Therapeutic-M Tab) 1 tab PO DAILY [facility] Last Admin: 03/16/18 10:00 Dose: 1 tab Mupirocin (Bactroban Ointment) 1 gm TOP BID [facility] Last Admin: 03/16/18 17:42 Dose: Not Given Nystatin (Nystop Topical Powder) 1 applic TOP BID [facility] Last Admin: 03/16/18 17:42 Dose: 1 applic Oxycodone HCl (Oxycontin Extended Release Tab) 80 mg PO Q6 [facility] Last Admin: 03/17/18 05:45 Dose: 80 mg Oxycodone/Acetaminophen (Percocet 5/325 Mg Tab) 2 tab PO Q4H PRN PRN Reason: Pain, severe (8-10) Stop: 03/17/18 17:07 Last Admin: 03/17/18 08:16 Dose: 2 tab Fluticasone/Salmeterol (Advair Diskus 250/50) 1 puff IH RQ12 [facility] Last Admin: 03/16/18 19:51 Dose: 1 puff Sitagliptin Phosphate (Januvia) 50 mg PO DAILY [facility] Last Admin: 03/16/18 10:01 Dose: 50 mg - Labs Labs: 03/17/18 08:24 03/17/18 08:24 PT 22.0 SECONDS (9.7-12.2) H 03/16/18 07:53 INR 1.9 03/16/18 07:53 APTT 29 SECONDS (21-34) 03/14/18 10:23 - Constitutional Appears: Well, No Acute Distress - Head Exam Head Exam: ATRAUMATIC - Respiratory Exam Respiratory Exam: NORMAL BREATHING PATTERN - Cardiovascular Exam Additional comments: fingers warm, normal cap refill - Extremities Exam Additional comments: sensation intact med/rad/ulnar nerve still mild swelling to fingers, encouraged ROM elbow/shoylder/fingers and elevation of wrist - Neurological Exam Neurological Exam: Alert, Awake, Oriented x3 Neuro motor strength exam: Left Upper Extremity: 5 - Psychiatric Exam Psychiatric exam: Normal Affect, Normal Mood - Skin Skin Exam: Dry, Intact, Normal Color, Warm Assessment and Plan (1) Closed fracture of left distal radius Assessment & Plan: per Dr. Young, non op splint vs short arm cast when swelling improved ortho stable elevate d/w Dr. Young, agrees with above Status: Acute
[2018-03-17] MEDS: Ferrous Fum/Folic Acid/IF/VI 1 Cap PO SCH (09:15)
[2018-03-17] MEDS: Multivitamin With Minerals Tab PO SCH (09:16)
[2018-03-17] MEDS: Fluticasone-Salmeterol 250-50mcg Diskus IH SCH (10:18)
--- NOTE | 2018-03-17 10:58 | CP.PCM.PN ---
Subjective - Date & Time of Evaluation Date of Evaluation: 03/17/18 Time of Evaluation: 09:30 - Subjective Subjective: Podiatry Progress Note- Dr. Laguna. 57 year old male seen at bedside, with attending, Dr. Laguna present, regarding chronic recurrent wound to left lower extremity. pain level to a peak 2/10, well controlled by pain medications, breakthrough pain does exist. He reports overnight chills. Denies recent fever, weakness, nausea, vomiting, diarrhea, or numbness. Patient denies any other pedal complaints at this time. Objective - Vital Signs/Intake and Output Vital Signs (last 24 hours): Temp Pulse Resp BP Pulse Ox 98.0 F 83 19 116/62 97 03/17/18 08:20 03/17/18 08:20 03/17/18 08:20 03/17/18 09:16 03/17/18 08:20 Intake and Output: 03/17/18 03/17/18 06:59 18:59 Output Total 2500 Balance -2500 - Medications Medications: Current Medications Acetaminophen (Tylenol 325mg Tab) 650 mg PO Q6 PRN PRN Reason: Headache Docusate Sodium (Colace) 100 mg PO DAILY [facility] Last Admin: 03/17/18 09:15 Dose: 100 mg Furosemide (Lasix) 40 mg PO BID [facility] Last Admin: 03/17/18 09:16 Dose: 40 mg Hydralazine HCl (Apresoline) 25 mg PO Q8 [facility] Last Admin: 03/17/18 05:45 Dose: 25 mg Insulin Human Regular (Novolin R) 0 unit SC ACHS [facility] PRN Reason: Protocol Last Admin: 03/17/18 08:08 Dose: Not Given Iron (Ferocon) 1 cap PO DAILY [facility] Last Admin: 03/17/18 09:15 Dose: 1 cap Levothyroxine Sodium (Synthroid) 75 mcg PO DAILY@0630 [facility] Last Admin: 03/17/18 05:45 Dose: 75 mcg Metformin HCl (Glucophage Xr) 500 mg PO BID [facility] Last Admin: 03/17/18 09:15 Dose: 500 mg Multivitamins/Minerals (Therapeutic-M Tab) 1 tab PO DAILY [facility] Last Admin: 03/17/18 09:16 Dose: 1 tab Mupirocin (Bactroban Ointment) 1 gm TOP BID [facility] Last Admin: 03/17/18 09:17 Dose: 1 applic Nystatin (Nystop Topical Powder) 1 applic TOP BID [facility] Last Admin: 03/17/18 09:15 Dose: 1 applic Oxycodone HCl (Oxycontin Extended Release Tab) 80 mg PO Q6 [facility] Last Admin: 03/17/18 05:45 Dose: 80 mg Oxycodone/Acetaminophen (Percocet 5/325 Mg Tab) 2 tab PO Q4H PRN PRN Reason: Pain, severe (8-10) Stop: 03/17/18 17:07 Last Admin: 03/17/18 08:16 Dose: 2 tab Fluticasone/Salmeterol (Advair Diskus 250/50) 1 puff IH RQ12 [facility] Last Admin: 03/17/18 10:18 Dose: 1 puff Sitagliptin Phosphate (Januvia) 50 mg PO DAILY [facility] Last Admin: 03/17/18 09:16 Dose: 50 mg - Labs Labs: 03/17/18 08:24 03/17/18 08:24 PT 22.0 SECONDS (9.7-12.2) H 03/16/18 07:53 INR 1.9 03/16/18 07:53 APTT 29 SECONDS (21-34) 03/14/18 10:23 - Constitutional Appears: Well, Non-toxic, No Acute Distress - Extremities Exam Additional comments: Lower extremity focused exam: strikethough noted to outer layer of dressings bilaterally. Vasc: Non-palpable pedal pulses due to edema b/l, TG warm to warm, CFT < 3 sec to all digits, +1 pitting edema Derm: +1 pitting edema to legs bilaterally. Localized mild non-streaking, blanchable periwound erythema to mid-calf level bilateral. Left: Multiple open ulcerations noted to the to Anterior and lateral and posterior aspect of the left leg circumferentally extending from tibial tuberosity to lateral malleolus. With heavy active serosanguinous drainage, wound base is 100% granular. No shital-wound macerations. No purulence noted, moderate malodor noted. Right: Open superficial ulceration noted to the medial aspect of leg at mid- calf level aprroximately 6 x 5 cm. With moderate active serosanguinous drainage , wound base is 100% granular with no shital-wound macerations. No purulence noted, moderate malodor noted. Neuro: sensation grossly diminished MUSC: pain on palpation of posterior and medial legs b/l - Neurological Exam Neurological Exam: Alert, Awake, Oriented x3 - Psychiatric Exam Psychiatric exam: Normal Affect, Normal Mood Assessment and Plan - Assessment and Plan (Free Text) Assessment: 57 year old male seen at bedside regarding bilateral lower leg chronic non- healing ulcertions secondary to CHF and venous insufficiency. Plan: Patient evaluated & treated with attending Dr. Laguna. Chart, labs, and vitals reviewed; afebrile, WBC=7.7, afebrile. Left leg wound cx-results pending, pre servin results show G(-) rods. Ordered IV Zosyn 3.375gm q8h, empirical abx. applied bactroban, telfa, DSD, JOSE to bilateral lower legs. Activity, weightbearing as tolerated. podiatry will continue to follow while patient remains in house
[2018-03-17] MEDS: Piperacill/Tazo 3.375gm in Dex 3.375 GM/50 ML BAG IVPB SCH ×2 (12:22→19:09)
--- NOTE | 2018-03-17 22:41 | CP.PCM.PN ---
Subjective - Date & Time of Evaluation Date of Evaluation: 03/17/18 Time of Evaluation: 18:10 - Subjective Subjective: Pt seen and examined at bedside, pt has cast on left wrist Objective - Vital Signs/Intake and Output Vital Signs (last 24 hours): Temp Pulse Resp BP Pulse Ox 98.5 F 89 20 110/78 95 03/17/18 15:43 03/17/18 15:43 03/17/18 15:43 03/17/18 17:22 03/17/18 15:43 - Medications Medications: Current Medications Acetaminophen (Tylenol 325mg Tab) 650 mg PO Q6 PRN PRN Reason: Headache Docusate Sodium (Colace) 100 mg PO DAILY [facility] Last Admin: 03/17/18 09:15 Dose: 100 mg Furosemide (Lasix) 40 mg PO BID [facility] Last Admin: 03/17/18 17:22 Dose: 40 mg Piperacillin Sod/Tazobactam Sod (Zosyn 3.375 Gm Iv Premix) 3.375 gm in 50 mls @ 100 mls/hr IVPB Q8H [facility] PRN Reason: Protocol Last Admin: 03/17/18 19:09 Dose: 100 mls/hr Insulin Human Regular (Novolin R) 0 unit SC ACHS [facility] PRN Reason: Protocol Last Admin: 03/17/18 22:07 Dose: Not Given Iron (Ferocon) 1 cap PO DAILY [facility] Last Admin: 03/17/18 09:15 Dose: 1 cap Levothyroxine Sodium (Synthroid) 75 mcg PO DAILY@0630 [facility] Last Admin: 03/17/18 05:45 Dose: 75 mcg Metformin HCl (Glucophage Xr) 500 mg PO BID [facility] Last Admin: 03/17/18 17:22 Dose: 500 mg Multivitamins/Minerals (Therapeutic-M Tab) 1 tab PO DAILY [facility] Last Admin: 03/17/18 09:16 Dose: 1 tab Mupirocin (Bactroban Ointment) 1 gm TOP BID [facility] Last Admin: 03/17/18 17:22 Dose: 1 applic Nystatin (Nystop Topical Powder) 1 applic TOP BID [facility] Last Admin: 03/17/18 17:22 Dose: 1 applic Oxycodone HCl (Oxycontin Extended Release Tab) 80 mg PO Q6 [facility] Last Admin: 03/17/18 17:21 Dose: 80 mg Oxycodone/Acetaminophen (Percocet 5/325 Mg Tab) 2 tab PO Q4H PRN PRN Reason: Pain, severe (8-10) Stop: 03/20/18 18:21 Last Admin: 03/17/18 19:08 Dose: 2 tab Fluticasone/Salmeterol (Advair Diskus 250/50) 1 puff IH RQ12 [facility] Last Admin: 03/17/18 10:18 Dose: 1 puff Sitagliptin Phosphate (Januvia) 50 mg PO DAILY [facility] Last Admin: 03/17/18 09:16 Dose: 50 mg - Labs Labs: 03/17/18 08:24 03/17/18 08:24 PT 22.0 SECONDS (9.7-12.2) H 03/16/18 07:53 INR 1.9 03/16/18 07:53 APTT 29 SECONDS (21-34) 03/14/18 10:23 - Constitutional Appears: No Acute Distress - Head Exam Head Exam: ATRAUMATIC, NORMAL INSPECTION, NORMOCEPHALIC - Eye Exam Eye Exam: EOMI, Normal appearance, PERRL Pupil Exam: NORMAL ACCOMODATION, PERRL - Respiratory Exam Respiratory Exam: Clear to Ausculation Bilateral, NORMAL BREATHING PATTERN - Cardiovascular Exam Cardiovascular Exam: REGULAR RHYTHM, +S1, +S2. absent: Murmur - GI/Abdominal Exam GI & Abdominal Exam: Soft, Normal Bowel Sounds. absent: Tenderness Assessment and Plan (1) Fall Status: Acute (2) HTN (hypertension) Status: Acute (3) Diabetes Status: Acute (4) Cellulitis Assessment & Plan: Chart, labs, and vitals reviewed; afebrile, WBC=7.7, afebrile. Left leg wound cx-results pending, pre servin results show G(-) rods. Ordered IV Zosyn 3.375gm q8h, empirical abx. applied bactroban, telfa, DSD, JOSE to bilateral lower legs. Activity, weightbearing as tolerated. on zosyn Status: Acute (5) Wrist fracture Status: Acute (6) Leg ulcer, left Status: Chronic
[2018-03-18] MEDS: oxyCODONE 80 mg ER Tab (oxyCONTIN) PO SCH ×5 (00:05→17:39)
[2018-03-18] MEDS: Piperacill/Tazo 3.375gm in Dex 3.375 GM/50 ML BAG IVPB SCH ×3 (03:49→20:38)
[2018-03-18] MEDS: Oxycodone/Acetaminophen 5/325 mg Tab PO PRN ×5 (03:49→23:58)
[2018-03-18] MEDS: Levothyroxine 75 MCG TAB PO SCH (06:00)
[2018-03-18] MEDS: (Novolin R) Insulin Human Regular 100 units/ml vial SC SCH ×4 (07:37→21:08)
[2018-03-18] MEDS: Fluticasone-Salmeterol 250-50mcg Diskus IH SCH ×2 (09:24→20:27)
[2018-03-18] MEDS: Ferrous Fum/Folic Acid/IF/VI 1 Cap PO SCH (10:27)
[2018-03-18] MEDS: Multivitamin With Minerals Tab PO SCH (10:27)
[2018-03-18 11:34] LABS: INR 1.5; PROTHROMBIN TIME 17.6 SECONDS (9.7-12.2)
--- NOTE | 2018-03-18 18:49 | CP.PCM.CON ---
History of Present Illness - History of Present Illness History of Present Illness: 57-year-old male, PMHx includes chronic leg ulcers, presents to the emergency after fall at home with left wrist fx Has large infected ulcers bilat lower extremities wound care and cultures pending - Medical History PMH: Arthritis, Asthma, Back Problems, CAD, CHF, COPD, Depression, Diabetes, Deep Vein Thrombosis, Fibromyalgia, Fractures, HTN, Hypercholesterolemia, Hyperthyroidism, Hypothyroidism, Peripheral Edema (+3 pitting ble), Pneumonia, Pulmonary Embolism, Chronic Kidney Disease (required HD in 2016 briefly), Sleep Apnea, Chronic Pain Surgical History: - [facility] ASSISTANCE WITH RESPIRATORY VENTILATION, >96 HRS, CPAP (09/04/16) BATHING/SHOWERING TECHNIQUES TREATMENT (07/29/17) CENTRAL VENOUS CATHETER PLACEMENT WITH GUIDANCE (07/08/15) CLOSED ENDOSCOPIC BIOPSY OF LARGE INTESTINE (03/22/14) CONTIN POS AIRWAY PRESSURE [CPAP] (02/21/07) DERMAL REGENERATIVE GRAFT (06/15/15) DRESSING TECHNIQUES TREATMENT (07/29/17) DX ULTRASOUND-HEART (05/14/06) ENDOSC POLYPECTOMY OF LG INTEST (03/22/14) ENDOSCOPIC BRONCHIAL BX (09/22/04) ESOPHAGOGASTRODUODENOSCOPY [EGD] W/CLOSED BIOPSY (03/22/14) EXCIS DEBRIDE OF WOUND, INFECT, OR BURN (06/15/15) EXCISION OF LEFT LOWER LEG SKIN, EXTERNAL APPROACH (09/15/17) EXTRACTION OF LEFT LOWER LEG SKIN, EXTERNAL APPROACH (01/17/18) GAIT TRAINING/AMBULAT TREATMENT USING ASSIST EQUIPMENT (07/29/17) HETEROGRAFT TO SKIN (10/29/14) HOME MANAGEMENT TREATMENT (07/29/17) INJECT ANTIBIOTIC (05/29/06) INJECT ANTICOAGULANT (11/17/04) INJECT/INFUSE NEC (03/22/14) INSERTION OF INFUSION DEV INTO SUP VENA CAVA, PERC APPROACH (01/17/18) INSPECTION OF BLADDER, ENDO (06/22/16) INTRODUCE OF OTH THERAP SUBST INTO RESP TRACT, VIA OPENING (04/06/16) NEBULIZER THERAPY (09/18/14) NON-INVASIVE MECHANICAL VENTILATION (08/13/12) NONEXCIS DEBRID OF WOUND, INFECT, OR BURN (10/09/14) OCCUPATIONAL THERAPY (03/17/14) PERFORMANCE OF URINARY FILTRATION, MULTIPLE (09/04/16) PHYSICAL THERAPY NEC (03/17/14) REPLACE L LOW LEG SKIN W NONAUT SUB, FULL THICK, OPENSTACK CLOUD CONSULTING ARCHITECT (01/17/18) TRANSFUSE NONAUT FROZEN PLASMA IN PERIPH VEIN, PERC (09/04/16) VENOUS CATHETERIZATION NEC (04/25/15) Review of Systems - Constitutional Constitutional: As Per HPI, Anorexia, Chills, Fever, Malaise - EENT Eyes: absent: As Per HPI, Blind Spots, Blurred Vision, Change in Vision, Decreased Night Vision, Diplopia, Discharge, Dry Eye, Exophthalmos, Floaters, Irritation, Itchy Eyes, Loss of Peripheral Vision, Pain, Photophobia, Requires Corrective Lenses, Sees Flashes, Spots in Vision, Tunnel Vision, Other Visual Disturbances, Loss of Vision, Other Ears: absent: As Per HPI, Decreased Hearing, Ear Discharge, Ear Pain, Tinnitus, Abnormal Hearing, Disequilibrium, Dizziness, Other Nose/Mouth/Throat: absent: As Per HPI, Epistaxis, Nasal Congestion, Nasal Discharge, Nasal Obstruction, Nasal Trauma, Nose Pain, Post Nasal Drip, Sinus Pain, Sinus Pressure, Bleeding Gums, Change in Voice, Dental Pain, Dry Mouth, Dysphagia, Halitosis, Hoarsness, Lip Swelling, Mouth Lesions, Mouth Pain, Odynophagia, Sore Throat, Throat Swelling, Tongue Swelling, Facial Pain, Neck Pain, Neck Mass, Other - Cardiovascular Cardiovascular: As Per HPI - Respiratory Respiratory: As Per HPI, Cough, Dyspnea. absent: Hemoptysis - Gastrointestinal Gastrointestinal: absent: As Per HPI, Abdominal Pain, Belching, Bloating, Change in Bowel Habits, Change in Stool Character, Coffee Ground Emesis, Constipation, Cramping, Diarrhea, Dyspepsia, Dysphagia, Early Satiety, Excessive Flatus, Fecal Incontinence, Heartburn, Hematemesis, Hematochezia, Loose Stools, Melena, Nausea, Odynophagia, Temesmus, Vomiting, Other - Genitourinary Genitourinary: absent: As Per HPI, Change in Urinary Stream, Difficulty Urinating, Dysuria, Flank Pain, Hematuria, Pyuria, Nocturia, Urinary Incontinence, Urinary Frequency, Urinary Hesitance, Urinary Urgency, Voiding Freq/Small Amts, Freq UTI, Hx Renal/Bladder Calculi, Hx /Renal Surgery, Bladder Distension, Other - Musculoskeletal Musculoskeletal: As Per HPI - Integumentary Integumentary: As Per HPI, Skin Pain, Wounds - Neurological Neurological: absent: As Per HPI, Abnormal Gait, Abnormal Hearing, Abnormal Movements, Abnormal Speech, Behavioral Changes, Burning Sensations, Confusion, Convulsions, Disequilibrium, Dizziness, Numbness, Focal Weakness, Frequent Falls , Headaches, Lack of Coordination, Loss of Vision, Memory Loss, Paresthesias, Radicular Pain, Restless Legs, Sensory Deficit, Syncope, Tingling, Tremor, Vertigo, Weakness, Other Visual Disturbances, Other - Psychiatric Psychiatric: absent: As Per HPI, Abnormal Sleep Pattern, Anhedonia, Anxiety, Auditory Hallucinations, Behavioral Changes, Change in Appetite, Change in Libido, Confusion, Depression, Difficulty Concentrating, Hallucinations, Homicidal Ideation, Hopelessness, Irritability, Memory Loss, Mood Swings, Panic Attacks, Paranoia, Suicidal Ideation, Visual Hallucinations, Tactile Hallucinations, Other - Endocrine Endocrine: absent: As Per HPI, Change in Body Appearance, Change in Libido, Cold Intolorance, Deepening of Voice, Excessive Sweating, Fatigue, Flushing, Heat Intolorance, Increase in Ring/Shoe/Hat Size, Palpitations, Polydipsia, Polyphagia, Polyuria, Other - Hematologic/Lymphatic Hematologic: absent: As Per HPI, Easy Bleeding, Easy Bruising, Lymphadenopathy, Other Past Patient History - Infectious Disease Hx of Infectious Diseases: None - Tetanus Immunizations Tetanus Immunization: Unknown - Past Medical History & Family History Past Medical History?: Yes - Past Social History Smoking Status: Never Smoked - CARDIAC Hx Congestive Heart Failure: Yes Hx Hypercholesterolemia: Yes Hx Hypertension: Yes - PULMONARY Hx Chronic Obstructive Pulmonary Disease (COPD): Yes - NEUROLOGICAL Hx Neurological Disorder: No - HEENT Hx HEENT Problems: No - RENAL Hx Chronic Kidney Disease: Yes (required HD in 2016 briefly) - ENDOCRINE/METABOLIC Hx Hypothyroidism: Yes - HEMATOLOGICAL/ONCOLOGICAL Hx Blood Disorders: No - INTEGUMENTARY Hx Dermatological Problems: Yes Other/Comment: both leggs discolored,. CHRONIC LEG ULCERS - MUSCULOSKELETAL/RHEUMATOLOGICAL Hx Arthritis: Yes - GASTROINTESTINAL Hx Gastrointestinal Disorders: (reflux obese) - GENITOURINARY/GYNECOLOGICAL Hx Reproductive Disorders: No - PSYCHIATRIC Hx Depression: Yes Hx Substance Use: No - SURGICAL HISTORY Hx Surgeries: Yes Hx Orthopedic Surgery: Yes (bilateral knee replacement) Other/Comment: total left knee - 1998. right ankle screws - 1987. right hip shyam - 1982,. LEG WOUND DEBRIDEMENTS - ANESTHESIA Hx Anesthesia: Yes Hx Anesthesia Reactions: No Hx Malignant Hyperthermia: No Meds Allergies/Adverse Reactions: Allergies Allergy/AdvReac Type Severity Reaction Status Date / Time No Known Allergies Allergy Verified 03/14/18 09:48 - Medications Medications: Current Medications Acetaminophen (Tylenol 325mg Tab) 650 mg PO Q6 PRN PRN Reason: Headache Docusate Sodium (Colace) 100 mg PO DAILY [facility] Last Admin: 03/18/18 10:27 Dose: 100 mg Furosemide (Lasix) 40 mg PO BID [facility] Last Admin: 03/18/18 17:40 Dose: 40 mg Hydralazine HCl (Apresoline) 25 mg PO Q8 [facility] Piperacillin Sod/Tazobactam Sod (Zosyn 3.375 Gm Iv Premix) 3.375 gm in 50 mls @ 100 mls/hr IVPB Q8H [facility] PRN Reason: Protocol Last Admin: 03/18/18 12:16 Dose: 100 mls/hr Insulin Human Regular (Novolin R) 0 unit SC ACHS [facility] PRN Reason: Protocol Last Admin: 03/18/18 16:36 Dose: Not Given Iron (Ferocon) 1 cap PO DAILY [facility] Last Admin: 03/18/18 10:27 Dose: 1 cap Levothyroxine Sodium (Synthroid) 75 mcg PO DAILY@0630 [facility] Last Admin: 03/18/18 06:00 Dose: 75 mcg Metformin HCl (Glucophage Xr) 500 mg PO BID [facility] Last Admin: 03/18/18 17:20 Dose: Not Given Multivitamins/Minerals (Therapeutic-M Tab) 1 tab PO DAILY [facility] Last Admin: 03/18/18 10:27 Dose: 1 tab Mupirocin (Bactroban Ointment) 1 gm TOP BID [facility] Last Admin: 03/18/18 17:22 Dose: Not Given Nystatin (Nystop Topical Powder) 1 applic TOP BID [facility] Last Admin: 03/18/18 17:41 Dose: 1 applic Oxycodone HCl (Oxycontin Extended Release Tab) 80 mg PO Q6 [facility] Last Admin: 03/18/18 17:39 Dose: 80 mg Oxycodone/Acetaminophen (Percocet 5/325 Mg Tab) 2 tab PO Q4H PRN PRN Reason: Pain, severe (8-10) Stop: 03/20/18 18:21 Last Admin: 03/18/18 14:14 Dose: 2 tab Fluticasone/Salmeterol (Advair Diskus 250/50) 1 puff IH RQ12 [facility] Last Admin: 03/18/18 09:24 Dose: 1 puff Sitagliptin Phosphate (Januvia) 50 mg PO DAILY [facility] Last Admin: 03/18/18 10:27 Dose: 50 mg Physical Exam - Constitutional Appears: Chronically Ill - Head Exam Head Exam: NORMAL INSPECTION - Eye Exam Eye Exam: PERRL. absent: Scleral icterus - ENT Exam ENT Exam: Mucous Membranes Dry - Neck Exam Neck exam: Negative for: Lymphadenopathy - Respiratory Exam Respiratory Exam: Decreased Breath Sounds - Cardiovascular Exam Cardiovascular Exam: REGULAR RHYTHM - GI/Abdominal Exam GI & Abdominal Exam: Diminished Bowel Sounds, Soft. absent: Tenderness - Rectal Exam Rectal Exam: Deferred - Exam Exam: NORMAL INSPECTION - Extremities Exam Extremities exam: Positive for: pedal edema, tenderness. Negative for: calf tenderness, pedal pulses present - Back Exam Back exam: absent: CVA tenderness (L), CVA tenderness (R) - Neurological Exam Neurological exam: Alert, CN II-XII Intact, Oriented x3, Reflexes Normal - Psychiatric Exam Psychiatric exam: Depressed - Skin Skin Exam: Dry Results - Vital Signs Recent Vital Signs: Last Vital Signs Temp 98.0 F 03/18/18 16:02 Pulse 76 03/18/18 16:02 Resp 20 03/18/18 16:02 BP 118/75 03/18/18 17:40 Pulse Ox 96 03/18/18 16:02 - Labs Result Diagrams: 03/17/18 08:24 03/17/18 08:24 Labs: Laboratory Results - last 24 hr 03/17/18 03/18/18 03/18/18 20:58 06:03 11:12 PT 17.6 H INR 1.5 POC Glucose (mg/dL) 141 H 99 03/18/18 03/18/18 11:23 16:07 PT INR POC Glucose (mg/dL) 239 H 95 Assessment & Plan (1) Cellulitis Status: Acute (2) Closed fracture of left distal radius Status: Acute (3) Diabetes Status: Acute (4) Fall Status: Acute (5) HTN (hypertension) Status: Acute (6) Wrist fracture Status: Acute (7) Leg ulcer, left Status: Chronic - Assessment and Plan (Free Text) Assessment: infected leg ulcers will likely need 14 - 21 days rx will need [facility] Plan: await podiatry follow up
[2018-03-18] MEDS: Vancomycin 1 gm/NS 200 ml 1 GM/200 ML BAG IVPB SCH (19:13)
[2018-03-19] MEDS: oxyCODONE 80 mg ER Tab (oxyCONTIN) PO SCH ×4 (01:00→17:28)
[2018-03-19] MEDS: Oxycodone/Acetaminophen 5/325 mg Tab PO PRN ×5 (04:19→22:44)
[2018-03-19] MEDS: Piperacill/Tazo 3.375gm in Dex 3.375 GM/50 ML BAG IVPB SCH ×2 (04:19→11:39)
[2018-03-19] MEDS: Levothyroxine 75 MCG TAB PO SCH (05:54)
[2018-03-19] MEDS: (Novolin R) Insulin Human Regular 100 units/ml vial SC SCH ×4 (07:58→22:32)
[2018-03-19] MEDS: Ferrous Fum/Folic Acid/IF/VI 1 Cap PO SCH (09:03)
[2018-03-19] MEDS: Multivitamin With Minerals Tab PO SCH (09:03)
[2018-03-19 09:12] LABS: HEMOGLOBIN 10.7 g/dL (12.0-18.0); MEAN CELL VOLUME 77.4 fL (80.0-94.0); MEAN CORPUSCULAR HEMOGLOBIN 25.6 pg (27.0-31.0); MEAN PLATELET VOLUME 9.3 fL (7.2-11.7); RBC 4.18 Mil/uL (4.40-5.90); RED CELL DISTRIBUTION WIDTH 17.8 % (11.5-14.5); WHITE BLOOD COUNT 6.9 K/uL (4.8-10.8)
[2018-03-19 09:21] LABS: INR 1.4; PROTHROMBIN TIME 15.9 SECONDS (9.7-12.2)
[2018-03-19 09:26] LABS: CALCIUM 9.3 mg/dl (8.6-10.4)
[2018-03-19] MEDS: Fluticasone-Salmeterol 250-50mcg Diskus IH SCH ×2 (10:10→21:01)
--- NOTE | 2018-03-19 11:05 | CP.PCM.PN ---
Subjective - Date & Time of Evaluation Date of Evaluation: 03/19/18 Time of Evaluation: 11:02 - Subjective Subjective: Patient states pain in wrist continues, but also has pain in forearm. Denies numbness/tingling. Says he has been elevating hand. Review of Systems - Review of Systems All systems: reviewed and no additional remarkable complaints except - Cardiovascular Cardiovascular: UNREMARKABLE - Respiratory Respiratory: UNREMARKABLE - Gastrointestinal Gastrointestinal: UNREMARKABLE - Musculoskeletal Musculoskeletal: As Par HPI - Integumentary Integumentary: UNREMARKABLE - Neurological Neurological: As Per HPI - Hematologic/Lymphatic Hematologic: UNREMARKABLE Objective - Vital Signs/Intake and Output Vital Signs (last 24 hours): Temp Pulse Resp BP Pulse Ox 97.5 F L 67 20 124/75 96 03/19/18 08:41 03/19/18 08:41 03/19/18 08:41 03/19/18 09:04 03/19/18 08:41 Intake and Output: 03/19/18 03/19/18 06:59 18:59 Intake Total 450 Balance 450 - Medications Medications: Current Medications Acetaminophen (Tylenol 325mg Tab) 650 mg PO Q6 PRN PRN Reason: Headache Docusate Sodium (Colace) 100 mg PO DAILY [facility] Last Admin: 03/19/18 09:03 Dose: 100 mg Furosemide (Lasix) 40 mg PO BID [facility] Last Admin: 03/19/18 09:04 Dose: 40 mg Hydralazine HCl (Apresoline) 25 mg PO Q8 [facility] Last Admin: 03/19/18 05:54 Dose: 25 mg Piperacillin Sod/Tazobactam Sod (Zosyn 3.375 Gm Iv Premix) 3.375 gm in 50 mls @ 100 mls/hr IVPB Q8H [facility] PRN Reason: Protocol Last Admin: 03/19/18 04:19 Dose: 100 mls/hr Vancomycin/Sodium Chloride (Vancomycin 1 Gm/Ns 200 Ml) 1 gm in 200 mls @ 133 mls/hr IVPB Q24H [facility] PRN Reason: Protocol Stop: 03/23/18 19:01 Last Admin: 03/18/18 19:13 Dose: 133 mls/hr Insulin Human Regular (Novolin R) 0 unit SC ACHS [facility] PRN Reason: Protocol Last Admin: 03/19/18 07:58 Dose: Not Given Iron (Ferocon) 1 cap PO DAILY [facility] Last Admin: 03/19/18 09:03 Dose: 1 cap Levothyroxine Sodium (Synthroid) 75 mcg PO DAILY@0630 [facility] Last Admin: 03/19/18 05:54 Dose: 75 mcg Metformin HCl (Glucophage Xr) 500 mg PO BID [facility] Last Admin: 03/19/18 09:04 Dose: 500 mg Multivitamins/Minerals (Therapeutic-M Tab) 1 tab PO DAILY [facility] Last Admin: 03/19/18 09:03 Dose: 1 tab Mupirocin (Bactroban Ointment) 1 gm TOP BID [facility] Last Admin: 03/18/18 17:22 Dose: Not Given Nystatin (Nystop Topical Powder) 1 applic TOP BID [facility] Last Admin: 03/18/18 17:41 Dose: 1 applic Oxycodone HCl (Oxycontin Extended Release Tab) 80 mg PO Q6 [facility] Last Admin: 03/19/18 05:53 Dose: 80 mg Oxycodone/Acetaminophen (Percocet 5/325 Mg Tab) 2 tab PO Q4H PRN PRN Reason: Pain, severe (8-10) Stop: 03/20/18 18:21 Last Admin: 03/19/18 08:41 Dose: 2 tab Fluticasone/Salmeterol (Advair Diskus 250/50) 1 puff IH RQ12 [facility] Last Admin: 03/19/18 10:10 Dose: 1 puff Sitagliptin Phosphate (Januvia) 50 mg PO DAILY [facility] Last Admin: 03/19/18 09:04 Dose: 50 mg - Labs Labs: 03/19/18 09:03 03/19/18 09:03 PT 15.9 SECONDS (9.7-12.2) H 03/19/18 09:03 INR 1.4 03/19/18 09:03 APTT 29 SECONDS (21-34) 03/14/18 10:23 - Constitutional Appears: Well, No Acute Distress - Head Exam Head Exam: ATRAUMATIC - Neck Exam Neck Exam: Full ROM, Normal Inspection - Respiratory Exam Respiratory Exam: NORMAL BREATHING PATTERN - Cardiovascular Exam Additional comments: +radial pulse - Extremities Exam Additional comments: sensation intact to med/rad/ulnar nerve distrib swelling improving significantly - Neurological Exam Neurological Exam: Alert, Awake, Oriented x3 Neuro motor strength exam: Left Upper Extremity: 5 (fingers flex/ext/add/abd) - Psychiatric Exam Psychiatric exam: Normal Affect, Normal Mood - Skin Skin Exam: Dry, Intact, Normal Color, Warm Assessment and Plan (1) Closed fracture of left distal radius Assessment & Plan: splint as per Dr. Young elevation non operative NWB to left wrist orthopedically stable f/u Dr. Young in office in 1 week call for appointment d/w Dr. Young, agrees with above Status: Acute
--- NOTE | 2018-03-19 16:56 | CP.PCM.PN ---
Subjective - Date & Time of Evaluation Date of Evaluation: 03/19/18 Time of Evaluation: 12:00 - Subjective Subjective: Podiatry Progress Note- Dr. Laguna. 57 year old male seen at bedside regarding chronic recurrent wound to left lower extremity. pain level to a peak 2/10, well controlled by pain medications , breakthrough pain does exist. He reports overnight chills. Denies recent fever , weakness, nausea, vomiting, diarrhea, or numbness. Patient denies any other pedal complaints at this time. Objective - Vital Signs/Intake and Output Vital Signs (last 24 hours): Temp Pulse Resp BP Pulse Ox 97.7 F 81 20 97/61 L 95 03/19/18 15:51 03/19/18 15:51 03/19/18 15:51 03/19/18 15:51 03/19/18 15:51 Intake and Output: 03/19/18 03/19/18 06:59 18:59 Intake Total 450 550 Output Total 700 Balance 450 -150 - Medications Medications: Current Medications Acetaminophen (Tylenol 325mg Tab) 650 mg PO Q6 PRN PRN Reason: Headache Docusate Sodium (Colace) 100 mg PO DAILY [facility] Last Admin: 03/19/18 09:03 Dose: 100 mg Furosemide (Lasix) 40 mg PO BID [facility] Last Admin: 03/19/18 09:04 Dose: 40 mg Hydralazine HCl (Apresoline) 25 mg PO Q8 [facility] Last Admin: 03/19/18 13:09 Dose: 25 mg Piperacillin Sod/Tazobactam Sod (Zosyn 3.375 Gm Iv Premix) 3.375 gm in 50 mls @ 100 mls/hr IVPB Q8H [facility] PRN Reason: Protocol Last Admin: 03/19/18 11:39 Dose: 100 mls/hr Vancomycin/Sodium Chloride (Vancomycin 1 Gm/Ns 200 Ml) 1 gm in 200 mls @ 133 mls/hr IVPB Q24H [facility] PRN Reason: Protocol Stop: 03/23/18 19:01 Last Admin: 03/18/18 19:13 Dose: 133 mls/hr Insulin Human Regular (Novolin R) 0 unit SC ACHS [facility] PRN Reason: Protocol Last Admin: 03/19/18 11:40 Dose: 1 unit Iron (Ferocon) 1 cap PO DAILY [facility] Last Admin: 03/19/18 09:03 Dose: 1 cap Levothyroxine Sodium (Synthroid) 75 mcg PO DAILY@0630 [facility] Last Admin: 03/19/18 05:54 Dose: 75 mcg Metformin HCl (Glucophage Xr) 500 mg PO BID [facility] Last Admin: 03/19/18 09:04 Dose: 500 mg Multivitamins/Minerals (Therapeutic-M Tab) 1 tab PO DAILY [facility] Last Admin: 03/19/18 09:03 Dose: 1 tab Mupirocin (Bactroban Ointment) 1 gm TOP BID [facility] Last Admin: 03/19/18 11:00 Dose: Not Given Nystatin (Nystop Topical Powder) 1 applic TOP BID [facility] Last Admin: 03/19/18 09:04 Dose: 1 applic Oxycodone HCl (Oxycontin Extended Release Tab) 80 mg PO Q6 [facility] Last Admin: 03/19/18 11:38 Dose: 80 mg Oxycodone/Acetaminophen (Percocet 5/325 Mg Tab) 2 tab PO Q4H PRN PRN Reason: Pain, severe (8-10) Stop: 03/20/18 18:21 Last Admin: 03/19/18 13:08 Dose: 2 tab Fluticasone/Salmeterol (Advair Diskus 250/50) 1 puff IH RQ12 [facility] Last Admin: 03/19/18 10:10 Dose: 1 puff Sitagliptin Phosphate (Januvia) 50 mg PO DAILY [facility] Last Admin: 03/19/18 09:04 Dose: 50 mg Warfarin Sodium (Coumadin) 10 mg PO 1800 [facility] Stop: 03/19/18 18:01 - Labs Labs: 03/19/18 09:03 03/19/18 09:03 PT 15.9 SECONDS (9.7-12.2) H 03/19/18 09:03 INR 1.4 03/19/18 09:03 APTT 29 SECONDS (21-34) 03/14/18 10:23 - Constitutional Appears: Well, Non-toxic, No Acute Distress - Extremities Exam Additional comments: Lower extremity focused exam: No strikethough noted to outer layer of dressings bilaterally. Vasc: Non-palpable pedal pulses due to edema b/l, TG warm to warm, CFT < 3 sec to all digits, +1 pitting edema Derm: +1 pitting edema to legs bilaterally. Localized mild non-streaking, blanchable periwound erythema to mid-calf level bilateral. Left: Multiple continuos open ulcerations extending from tibial tuberosity to medial malleolus noted to the to Anterior leg. Lateral and posterior ulceration undergoing early stage re-epithelialization. Mild active sero- sanguinous drainage, wound base is 100% granular. No shital-wound macerations. No purulence noted, moderate malodor noted. Right: Open superficial ulceration noted to the medial aspect of leg at mid- calf level aprroximately 6 x 5 cm. With moderate active serosanguinous drainage , wound base is 100% granular with no shital-wound macerations. No purulence noted, moderate malodor noted. Neuro: sensation grossly diminished MUSC: pain on palpation of posterior and medial legs b/l - Neurological Exam Neurological Exam: Alert, Awake, Oriented x3 - Psychiatric Exam Psychiatric exam: Normal Affect, Normal Mood Assessment and Plan - Assessment and Plan (Free Text) Assessment: 57 year old male seen at bedside regarding bilateral lower leg chronic non- healing ulcerations secondary venous insufficiency. Plan: Patient evaluated & treated, discussed with attending, Dr. Laguna. Chart, labs, and vitals reviewed; afebrile, WBC=6.9, afebrile. Left leg wound cx results- MRSA, E. coli, Enterobacter Cloacae Ssp Continue IV Zosyn 3.375gm q8h, enterobacter coverage. Continue IV abx per ID. applied bactroban, telfa, DSD, JOSE to bilateral lower legs. Activity, weight-bearing as tolerated. Pt stable form podiatry standpoint. Will continue to follow while patient remains in house
--- NOTE | 2018-03-19 18:22 | CP.PCM.PN ---
Subjective - Date & Time of Evaluation Date of Evaluation: 03/19/18 Time of Evaluation: 09:00 - Subjective Subjective: 57-year-old male, PMHx includes chronic leg ulcers, presents to the emergency after fall at home with left wrist fx Has large infected ulcers bilat lower extremities wound care and cultures pending - Medical History PMH: Arthritis, Asthma, Back Problems, CAD, CHF, COPD, Depression, Diabetes, Deep Vein Thrombosis, Fibromyalgia, Fractures, HTN, Hypercholesterolemia, Hyperthyroidism, Hypothyroidism, Peripheral Edema (+3 pitting ble), Pneumonia, Pulmonary Embolism, Chronic Kidney Disease (required HD in 2016 briefly), Sleep Apnea, Chronic Pain Objective - Vital Signs/Intake and Output Vital Signs (last 24 hours): Temp Pulse Resp BP Pulse Ox 97.7 F 81 20 124/78 95 03/19/18 15:51 03/19/18 15:51 03/19/18 15:51 03/19/18 17:24 03/19/18 15:51 Intake and Output: 03/19/18 03/19/18 06:59 18:59 Intake Total 450 550 Output Total 700 Balance 450 -150 - Medications Medications: Current Medications Acetaminophen (Tylenol 325mg Tab) 650 mg PO Q6 PRN PRN Reason: Headache Docusate Sodium (Colace) 100 mg PO DAILY [facility] Last Admin: 03/19/18 09:03 Dose: 100 mg Furosemide (Lasix) 40 mg PO BID [facility] Last Admin: 03/19/18 17:24 Dose: 40 mg Hydralazine HCl (Apresoline) 25 mg PO Q8 [facility] Last Admin: 03/19/18 13:09 Dose: 25 mg Piperacillin Sod/Tazobactam Sod (Zosyn 3.375 Gm Iv Premix) 3.375 gm in 50 mls @ 100 mls/hr IVPB Q8H [facility] PRN Reason: Protocol Last Admin: 03/19/18 11:39 Dose: 100 mls/hr Vancomycin/Sodium Chloride (Vancomycin 1 Gm/Ns 200 Ml) 1 gm in 200 mls @ 133 mls/hr IVPB Q24H [facility] PRN Reason: Protocol Stop: 03/23/18 19:01 Last Admin: 03/18/18 19:13 Dose: 133 mls/hr Insulin Human Regular (Novolin R) 0 unit SC ACHS [facility] PRN Reason: Protocol Last Admin: 03/19/18 17:13 Dose: Not Given Iron (Ferocon) 1 cap PO DAILY [facility] Last Admin: 03/19/18 09:03 Dose: 1 cap Levothyroxine Sodium (Synthroid) 75 mcg PO DAILY@0630 [facility] Last Admin: 03/19/18 05:54 Dose: 75 mcg Metformin HCl (Glucophage Xr) 500 mg PO BID [facility] Last Admin: 03/19/18 17:27 Dose: 500 mg Multivitamins/Minerals (Therapeutic-M Tab) 1 tab PO DAILY [facility] Last Admin: 03/19/18 09:03 Dose: 1 tab Mupirocin (Bactroban Ointment) 1 gm TOP BID [facility] Last Admin: 03/19/18 17:27 Dose: 1 applic Nystatin (Nystop Topical Powder) 1 applic TOP BID [facility] Last Admin: 03/19/18 17:28 Dose: 1 applic Oxycodone HCl (Oxycontin Extended Release Tab) 80 mg PO Q6 [facility] Last Admin: 03/19/18 17:28 Dose: 80 mg Oxycodone/Acetaminophen (Percocet 5/325 Mg Tab) 2 tab PO Q4H PRN PRN Reason: Pain, severe (8-10) Stop: 03/20/18 18:21 Last Admin: 03/19/18 13:08 Dose: 2 tab Fluticasone/Salmeterol (Advair Diskus 250/50) 1 puff IH RQ12 [facility] Last Admin: 03/19/18 10:10 Dose: 1 puff Sitagliptin Phosphate (Januvia) 50 mg PO DAILY [facility] Last Admin: 03/19/18 09:04 Dose: 50 mg - Labs Labs: 03/19/18 09:03 03/19/18 09:03 PT 15.9 SECONDS (9.7-12.2) H 03/19/18 09:03 INR 1.4 03/19/18 09:03 APTT 29 SECONDS (21-34) 03/14/18 10:23 - Constitutional Appears: Non-toxic, Chronically Ill - Head Exam Head Exam: NORMOCEPHALIC - Eye Exam Eye Exam: Normal appearance - ENT Exam ENT Exam: Mucous Membranes Dry - Neck Exam Neck Exam: absent: Lymphadenopathy - Respiratory Exam Respiratory Exam: Decreased Breath Sounds - Cardiovascular Exam Cardiovascular Exam: REGULAR RHYTHM - GI/Abdominal Exam GI & Abdominal Exam: Distended, Soft - Rectal Exam Rectal Exam: Deferred - Exam Exam: NORMAL INSPECTION - Extremities Exam Extremities Exam: Calf Tenderness Additional comments: legs are in JOSE bandage compression dressing - Back Exam Back Exam: absent: CVA tenderness (L), CVA tenderness (R) - Neurological Exam Neurological Exam: Alert, Awake, Oriented x3 Neuro motor strength exam: Left Upper Extremity: 3, Right Upper Extremity: 3, Left Lower Extremity: 3, Right Lower Extremity: 3 - Psychiatric Exam Psychiatric exam: Depressed - Skin Skin Exam: Dry Assessment and Plan (1) Cellulitis Status: Acute (2) Closed fracture of left distal radius Status: Acute (3) Diabetes Status: Acute (4) Fall Status: Acute (5) HTN (hypertension) Status: Acute (6) Wrist fracture Status: Acute (7) Leg ulcer, left Status: Chronic - Assessment and Plan (Free Text) Assessment: 57-year-old male, PMHx includes chronic leg ulcers, presents to the emergency after fall at home with left wrist fx Has large infected ulcers bilat lower extremities - Medical History PMH: Arthritis, Asthma, Back Problems, CAD, CHF, COPD, Depression, Diabetes, Deep Vein Thrombosis, Fibromyalgia, Fractures, HTN, Hypercholesterolemia, Hyperthyroidism, Hypothyroidism, Peripheral Edema (+3 pitting ble), Pneumonia, Pulmonary Embolism, Chronic Kidney Disease (required HD in 2016 briefly), Sleep Apnea, Chronic Pain patient is in failing health and has multiple co-morbidities will cont iv antibiotics for 14-21 days
[2018-03-19] MEDS: Vancomycin 1 gm/NS 200 ml 1 GM/200 ML BAG IVPB SCH (18:31)
[2018-03-19] MEDS: Meropenem 1 GM in Sodium Chloride 0.9% 100 ML IVPB SCH (22:34)
--- NOTE | 2018-03-19 23:16 | CP.PCM.PN ---
Subjective - Date & Time of Evaluation Date of Evaluation: 03/19/18 Time of Evaluation: 17:00 - Subjective Subjective: pt seen and examined, c/o pain in left leg purulent discharge Objective - Vital Signs/Intake and Output Vital Signs (last 24 hours): Temp Pulse Resp BP Pulse Ox 97.7 F 81 20 124/78 95 03/19/18 15:51 03/19/18 15:51 03/19/18 15:51 03/19/18 17:24 03/19/18 15:51 Intake and Output: 03/19/18 03/20/18 18:59 06:59 Intake Total 550 600 Output Total 700 800 Balance -150 -200 - Medications Medications: Current Medications Acetaminophen (Tylenol 325mg Tab) 650 mg PO Q6 PRN PRN Reason: Headache Docusate Sodium (Colace) 100 mg PO DAILY [facility] Last Admin: 03/19/18 09:03 Dose: 100 mg Furosemide (Lasix) 40 mg PO BID [facility] Last Admin: 03/19/18 17:24 Dose: 40 mg Hydralazine HCl (Apresoline) 25 mg PO Q8 [facility] Last Admin: 03/19/18 22:44 Dose: 25 mg Vancomycin/Sodium Chloride (Vancomycin 1 Gm/Ns 200 Ml) 1 gm in 200 mls @ 133 mls/hr IVPB Q24H [facility] PRN Reason: Protocol Stop: 03/23/18 19:01 Last Admin: 03/19/18 18:31 Dose: 133 mls/hr Meropenem 1 gm/ Sodium (Chloride) 100 mls @ 100 mls/hr IVPB Q8 [facility] PRN Reason: Protocol Last Admin: 03/19/18 22:34 Dose: 100 mls/hr Insulin Human Regular (Novolin R) 0 unit SC ACHS [facility] PRN Reason: Protocol Last Admin: 03/19/18 22:32 Dose: Not Given Iron (Ferocon) 1 cap PO DAILY [facility] Last Admin: 03/19/18 09:03 Dose: 1 cap Levothyroxine Sodium (Synthroid) 75 mcg PO DAILY@0630 [facility] Last Admin: 03/19/18 05:54 Dose: 75 mcg Metformin HCl (Glucophage Xr) 500 mg PO BID [facility] Last Admin: 03/19/18 17:27 Dose: 500 mg Multivitamins/Minerals (Therapeutic-M Tab) 1 tab PO DAILY [facility] Last Admin: 03/19/18 09:03 Dose: 1 tab Mupirocin (Bactroban Ointment) 1 gm TOP BID [facility] Last Admin: 03/19/18 17:27 Dose: 1 applic Nystatin (Nystop Topical Powder) 1 applic TOP BID [facility] Last Admin: 03/19/18 17:28 Dose: 1 applic Oxycodone HCl (Oxycontin Extended Release Tab) 80 mg PO Q6 [facility] Last Admin: 03/19/18 17:28 Dose: 80 mg Oxycodone/Acetaminophen (Percocet 5/325 Mg Tab) 2 tab PO Q4H PRN PRN Reason: Pain, severe (8-10) Stop: 03/20/18 18:21 Last Admin: 03/19/18 22:44 Dose: 2 tab Fluticasone/Salmeterol (Advair Diskus 250/50) 1 puff IH RQ12 [facility] Last Admin: 03/19/18 21:01 Dose: 1 puff Sitagliptin Phosphate (Januvia) 50 mg PO DAILY [facility] Last Admin: 03/19/18 09:04 Dose: 50 mg - Labs Labs: 03/19/18 09:03 03/19/18 09:03 PT 15.9 SECONDS (9.7-12.2) H 03/19/18 09:03 INR 1.4 03/19/18 09:03 APTT 29 SECONDS (21-34) 03/14/18 10:23 - Constitutional Appears: No Acute Distress - Head Exam Head Exam: ATRAUMATIC, NORMAL INSPECTION, NORMOCEPHALIC - Eye Exam Eye Exam: EOMI, Normal appearance, PERRL Pupil Exam: NORMAL ACCOMODATION, PERRL - Respiratory Exam Respiratory Exam: Clear to Ausculation Bilateral, NORMAL BREATHING PATTERN - Cardiovascular Exam Cardiovascular Exam: REGULAR RHYTHM, +S1, +S2. absent: Murmur - GI/Abdominal Exam GI & Abdominal Exam: Soft, Normal Bowel Sounds. absent: Tenderness - Rectal Exam Rectal Exam: Deferred Assessment and Plan (1) Fall Status: Acute (2) HTN (hypertension) Status: Acute (3) Diabetes Status: Acute (4) Cellulitis Status: Acute (5) Wrist fracture Status: Acute (6) Leg ulcer, left Status: Chronic
[2018-03-20] MEDS: oxyCODONE 80 mg ER Tab (oxyCONTIN) PO SCH ×5 (00:51→23:57)
[2018-03-20] MEDS: Oxycodone/Acetaminophen 5/325 mg Tab PO PRN ×4 (02:48→21:38)
[2018-03-20] MEDS: Levothyroxine 75 MCG TAB PO SCH (06:18)
[2018-03-20] MEDS: Meropenem 1 GM in Sodium Chloride 0.9% 100 ML IVPB SCH ×3 (06:19→21:38)
[2018-03-20] MEDS: Fluticasone-Salmeterol 250-50mcg Diskus IH SCH ×2 (08:19→20:19)
[2018-03-20] MEDS: (Novolin R) Insulin Human Regular 100 units/ml vial SC SCH ×4 (08:30→21:13)
[2018-03-20 09:01] LABS: HEMOGLOBIN 10.2 g/dL (12.0-18.0); MEAN CELL VOLUME 77.5 fL (80.0-94.0); MEAN CORPUSCULAR HEMOGLOBIN 25.2 pg (27.0-31.0); MEAN CORPUSCULAR HGB CONC 32.5 g/dL (33.0-37.0); MEAN PLATELET VOLUME 9.6 fL (7.2-11.7); RBC 4.04 Mil/uL (4.40-5.90); RED CELL DISTRIBUTION WIDTH 17.9 % (11.5-14.5); WHITE BLOOD COUNT 5.7 K/uL (4.8-10.8)
[2018-03-20 09:16] LABS: BLOOD UREA NITROGEN 23 mg/dL (9-20); CALCIUM 9.2 mg/dl (8.6-10.4); GFR AFRICAN-AMERICAN > 60; GFR NON-AFRICAN AMERICAN 57
[2018-03-20 09:28] LABS: INR 1.5
[2018-03-20] MEDS: Ferrous Fum/Folic Acid/IF/VI 1 Cap PO SCH (10:19)
[2018-03-20] MEDS: Multivitamin With Minerals Tab PO SCH (10:19)
--- NOTE | 2018-03-20 14:12 | CP.PCM.PN ---
Subjective - Date & Time of Evaluation Date of Evaluation: 03/20/18 Time of Evaluation: 14:09 - Subjective Subjective: 57 year old male seen at bedside with attending Dr. Laguna for chronic, recurrent wounds to the left lower extremity. Patient is AAO x 3 and NAD at time of visit. Denies any acute overnight events or any new pedal complaints at this time. States that pain is well controlled. Denies any recent N/V/F/C/CP/SOB /D/posterior calf pain when squeezed Objective - Vital Signs/Intake and Output Vital Signs (last 24 hours): Temp Pulse Resp BP Pulse Ox 97.5 F L 80 18 126/82 97 03/20/18 07:15 03/20/18 12:57 03/20/18 07:15 03/20/18 12:57 03/20/18 07:15 Intake and Output: 03/20/18 03/20/18 06:59 18:59 Intake Total 900 Output Total 1500 Balance -600 - Medications Medications: Current Medications Acetaminophen (Tylenol 325mg Tab) 650 mg PO Q6 PRN PRN Reason: Headache Docusate Sodium (Colace) 100 mg PO DAILY [facility] Last Admin: 03/20/18 10:20 Dose: 100 mg Furosemide (Lasix) 40 mg PO BID [facility] Last Admin: 03/20/18 10:20 Dose: 40 mg Hydralazine HCl (Apresoline) 25 mg PO Q8 [facility] Last Admin: 03/20/18 12:59 Dose: 25 mg Vancomycin/Sodium Chloride (Vancomycin 1 Gm/Ns 200 Ml) 1 gm in 200 mls @ 133 mls/hr IVPB Q24H [facility] PRN Reason: Protocol Stop: 03/23/18 19:01 Last Admin: 03/19/18 18:31 Dose: 133 mls/hr Meropenem 1 gm/ Sodium (Chloride) 100 mls @ 100 mls/hr IVPB Q8 [facility] PRN Reason: Protocol Last Admin: 03/20/18 13:17 Dose: 100 mls/hr Insulin Human Regular (Novolin R) 0 unit SC ACHS [facility] PRN Reason: Protocol Last Admin: 03/20/18 11:45 Dose: Not Given Iron (Ferocon) 1 cap PO DAILY [facility] Last Admin: 03/20/18 10:19 Dose: 1 cap Levothyroxine Sodium (Synthroid) 75 mcg PO DAILY@0630 [facility] Last Admin: 03/20/18 06:18 Dose: 75 mcg Metformin HCl (Glucophage Xr) 500 mg PO BID [facility] Last Admin: 03/20/18 10:19 Dose: 500 mg Multivitamins/Minerals (Therapeutic-M Tab) 1 tab PO DAILY [facility] Last Admin: 03/20/18 10:19 Dose: 1 tab Mupirocin (Bactroban Ointment) 1 gm TOP BID [facility] Last Admin: 03/20/18 10:19 Dose: Not Given Nystatin (Nystop Topical Powder) 1 applic TOP BID [facility] Last Admin: 03/20/18 11:00 Dose: 1 applic Oxycodone HCl (Oxycontin Extended Release Tab) 80 mg PO Q6 [facility] Last Admin: 03/20/18 12:58 Dose: 80 mg Oxycodone/Acetaminophen (Percocet 5/325 Mg Tab) 2 tab PO Q4H PRN PRN Reason: Pain, severe (8-10) Stop: 03/20/18 18:21 Last Admin: 03/20/18 08:20 Dose: 2 tab Fluticasone/Salmeterol (Advair Diskus 250/50) 1 puff IH RQ12 [facility] Last Admin: 03/20/18 08:19 Dose: 1 puff Sitagliptin Phosphate (Januvia) 50 mg PO DAILY [facility] Last Admin: 03/20/18 10:19 Dose: 50 mg - Labs Labs: 03/20/18 08:48 03/20/18 08:48 PT 17.0 SECONDS (9.7-12.2) H 03/20/18 08:48 INR 1.5 03/20/18 08:48 APTT 29 SECONDS (21-34) 03/14/18 10:23 - Constitutional Appears: Well, Non-toxic, No Acute Distress - Extremities Exam Additional comments: Lower extremity focused exam: No strikethough noted to outer layer of dressings bilaterally. Vasc: Non-palpable pedal pulses due to edema b/l, TG warm to warm, CFT < 3 sec to all digits, +1 pitting edema Derm: +1 pitting edema to legs bilaterally. Localized mild non-streaking, blanchable periwound erythema to mid-calf level bilateral. Left: Multiple continuos open ulcerations extending from tibial tuberosity to medial malleolus noted to the to Anterior leg. Lateral and posterior ulceration undergoing early stage re-epithelialization. Mild active sero- sanguinous drainage, wound base is 100% granular. No shital-wound macerations. No purulence noted, moderate malodor noted. Right: Dressings noted to be c/d/i with no strikethrough Neuro: sensation grossly diminished MUSC: pain on palpation of posterior and medial legs b/l - Neurological Exam Neurological Exam: Alert, Awake, Oriented x3 - Psychiatric Exam Psychiatric exam: Normal Affect, Normal Mood Assessment and Plan - Assessment and Plan (Free Text) Assessment: 57 year old male seen at bedside with attending Dr. Laguna for chronic, recurrent wounds to the left lower extremity Plan: Patient seen and evaluated with attending Dr. Laguna Charts, labs, vitals reviewed Continue IV abx per ID Continue medical management per Medicine Team Wound cx: MRSA, E coli, E Cloacae Ssp Left leg wound dressed with Telfa, ABD, DSD No plan for surgical management at this time Patient to follow up with Dr. Laguna upon discharge Podiatry will continue to follow while patient in house
--- NOTE | 2018-03-20 17:58 | CP.PCM.PN ---
Subjective - Date & Time of Evaluation Date of Evaluation: 03/18/18 Time of Evaluation: 19:00 - Subjective Subjective: pt seen and evalauted c/o left wrist pain and back pain Objective - Vital Signs/Intake and Output Vital Signs (last 24 hours): Temp Pulse Resp BP Pulse Ox 97.7 F 74 22 105/71 97 03/20/18 16:48 03/20/18 16:48 03/20/18 16:48 03/20/18 16:48 03/20/18 16:48 Intake and Output: 03/20/18 03/20/18 06:59 18:59 Intake Total 900 400 Output Total 1500 Balance -600 400 - Medications Medications: Current Medications Acetaminophen (Tylenol 325mg Tab) 650 mg PO Q6 PRN PRN Reason: Headache Docusate Sodium (Colace) 100 mg PO DAILY [facility] Last Admin: 03/20/18 10:20 Dose: 100 mg Furosemide (Lasix) 40 mg PO BID [facility] Last Admin: 03/20/18 10:20 Dose: 40 mg Hydralazine HCl (Apresoline) 25 mg PO Q8 [facility] Last Admin: 03/20/18 12:59 Dose: 25 mg Vancomycin/Sodium Chloride (Vancomycin 1 Gm/Ns 200 Ml) 1 gm in 200 mls @ 133 mls/hr IVPB Q24H [facility] PRN Reason: Protocol Stop: 03/23/18 19:01 Last Admin: 03/19/18 18:31 Dose: 133 mls/hr Meropenem 1 gm/ Sodium (Chloride) 100 mls @ 100 mls/hr IVPB Q8 [facility] PRN Reason: Protocol Last Admin: 03/20/18 13:17 Dose: 100 mls/hr Insulin Human Regular (Novolin R) 0 unit SC ACHS [facility] PRN Reason: Protocol Last Admin: 03/20/18 17:43 Dose: Not Given Iron (Ferocon) 1 cap PO DAILY [facility] Last Admin: 03/20/18 10:19 Dose: 1 cap Levothyroxine Sodium (Synthroid) 75 mcg PO DAILY@0630 [facility] Last Admin: 03/20/18 06:18 Dose: 75 mcg Metformin HCl (Glucophage Xr) 500 mg PO BID [facility] Last Admin: 03/20/18 10:19 Dose: 500 mg Multivitamins/Minerals (Therapeutic-M Tab) 1 tab PO DAILY [facility] Last Admin: 03/20/18 10:19 Dose: 1 tab Mupirocin (Bactroban Ointment) 1 gm TOP BID [facility] Last Admin: 03/20/18 17:42 Dose: Not Given Nystatin (Nystop Topical Powder) 1 applic TOP BID [facility] Last Admin: 03/20/18 11:00 Dose: 1 applic Oxycodone HCl (Oxycontin Extended Release Tab) 80 mg PO Q6 [facility] Last Admin: 03/20/18 12:58 Dose: 80 mg Oxycodone/Acetaminophen (Percocet 5/325 Mg Tab) 2 tab PO Q4H PRN PRN Reason: Pain, severe (8-10) Stop: 03/20/18 18:21 Last Admin: 03/20/18 15:58 Dose: 2 tab Fluticasone/Salmeterol (Advair Diskus 250/50) 1 puff IH RQ12 [facility] Last Admin: 03/20/18 08:19 Dose: 1 puff Sitagliptin Phosphate (Januvia) 50 mg PO DAILY [facility] Last Admin: 03/20/18 10:19 Dose: 50 mg Warfarin Sodium (Coumadin) 10 mg PO 1800 [facility] Stop: 03/20/18 18:01 - Labs Labs: 03/20/18 08:48 03/20/18 08:48 PT 17.0 SECONDS (9.7-12.2) H 03/20/18 08:48 INR 1.5 03/20/18 08:48 APTT 29 SECONDS (21-34) 03/14/18 10:23 - Constitutional Appears: No Acute Distress - Head Exam Head Exam: ATRAUMATIC, NORMAL INSPECTION, NORMOCEPHALIC - ENT Exam ENT Exam: Mucous Membranes Moist, Normal Exam - Respiratory Exam Respiratory Exam: Clear to Ausculation Bilateral, NORMAL BREATHING PATTERN - Cardiovascular Exam Cardiovascular Exam: REGULAR RHYTHM, +S1, +S2. absent: Murmur Assessment and Plan (1) Fall Status: Acute (2) HTN (hypertension) Status: Acute (3) Diabetes Status: Acute (4) Cellulitis Status: Acute (5) Wrist fracture Status: Acute (6) Leg ulcer, left Status: Chronic
--- NOTE | 2018-03-20 18:02 | CP.PCM.PN ---
Subjective - Date & Time of Evaluation Date of Evaluation: 03/20/18 Time of Evaluation: 18:00 - Subjective Subjective: Pt seen and examined, afebrile, is feeling better, c/o left leg pain s/p I and D Objective - Vital Signs/Intake and Output Vital Signs (last 24 hours): Temp Pulse Resp BP Pulse Ox 97.7 F 74 22 105/71 97 03/20/18 16:48 03/20/18 16:48 03/20/18 16:48 03/20/18 16:48 03/20/18 16:48 Intake and Output: 03/20/18 03/20/18 06:59 18:59 Intake Total 900 400 Output Total 1500 Balance -600 400 - Medications Medications: Current Medications Acetaminophen (Tylenol 325mg Tab) 650 mg PO Q6 PRN PRN Reason: Headache Docusate Sodium (Colace) 100 mg PO DAILY [facility] Last Admin: 03/20/18 10:20 Dose: 100 mg Furosemide (Lasix) 40 mg PO BID [facility] Last Admin: 03/20/18 10:20 Dose: 40 mg Hydralazine HCl (Apresoline) 25 mg PO Q8 [facility] Last Admin: 03/20/18 12:59 Dose: 25 mg Vancomycin/Sodium Chloride (Vancomycin 1 Gm/Ns 200 Ml) 1 gm in 200 mls @ 133 mls/hr IVPB Q24H [facility] PRN Reason: Protocol Stop: 03/23/18 19:01 Last Admin: 03/19/18 18:31 Dose: 133 mls/hr Meropenem 1 gm/ Sodium (Chloride) 100 mls @ 100 mls/hr IVPB Q8 [facility] PRN Reason: Protocol Last Admin: 03/20/18 13:17 Dose: 100 mls/hr Insulin Human Regular (Novolin R) 0 unit SC ACHS [facility] PRN Reason: Protocol Last Admin: 03/20/18 17:43 Dose: Not Given Iron (Ferocon) 1 cap PO DAILY [facility] Last Admin: 03/20/18 10:19 Dose: 1 cap Levothyroxine Sodium (Synthroid) 75 mcg PO DAILY@0630 [facility] Last Admin: 03/20/18 06:18 Dose: 75 mcg Metformin HCl (Glucophage Xr) 500 mg PO BID [facility] Last Admin: 03/20/18 10:19 Dose: 500 mg Multivitamins/Minerals (Therapeutic-M Tab) 1 tab PO DAILY [facility] Last Admin: 03/20/18 10:19 Dose: 1 tab Mupirocin (Bactroban Ointment) 1 gm TOP BID [facility] Last Admin: 03/20/18 17:42 Dose: Not Given Nystatin (Nystop Topical Powder) 1 applic TOP BID [facility] Last Admin: 03/20/18 11:00 Dose: 1 applic Oxycodone HCl (Oxycontin Extended Release Tab) 80 mg PO Q6 [facility] Last Admin: 03/20/18 12:58 Dose: 80 mg Oxycodone/Acetaminophen (Percocet 5/325 Mg Tab) 2 tab PO Q4H PRN PRN Reason: Pain, severe (8-10) Stop: 03/20/18 18:21 Last Admin: 03/20/18 15:58 Dose: 2 tab Fluticasone/Salmeterol (Advair Diskus 250/50) 1 puff IH RQ12 [facility] Last Admin: 03/20/18 08:19 Dose: 1 puff Sitagliptin Phosphate (Januvia) 50 mg PO DAILY [facility] Last Admin: 03/20/18 10:19 Dose: 50 mg Warfarin Sodium (Coumadin) 10 mg PO 1800 [facility] Stop: 03/20/18 18:01 - Labs Labs: 03/20/18 08:48 03/20/18 08:48 PT 17.0 SECONDS (9.7-12.2) H 03/20/18 08:48 INR 1.5 03/20/18 08:48 APTT 29 SECONDS (21-34) 03/14/18 10:23 - Constitutional Appears: No Acute Distress - Head Exam Head Exam: ATRAUMATIC, NORMAL INSPECTION, NORMOCEPHALIC - Eye Exam Eye Exam: EOMI, Normal appearance, PERRL Pupil Exam: NORMAL ACCOMODATION, PERRL - Neck Exam Neck Exam: Full ROM, Normal Inspection. absent: Lymphadenopathy - Respiratory Exam Respiratory Exam: Clear to Ausculation Bilateral, NORMAL BREATHING PATTERN - Cardiovascular Exam Cardiovascular Exam: REGULAR RHYTHM, +S1, +S2. absent: Murmur - GI/Abdominal Exam GI & Abdominal Exam: Soft, Normal Bowel Sounds. absent: Tenderness - Rectal Exam Rectal Exam: Deferred - Neurological Exam Neurological Exam: Abnormal Gait, Alert, Awake, CN II-XII Intact, Oriented x3 - Psychiatric Exam Psychiatric exam: Anxious - Skin Skin Exam: Erythema, Warm Assessment and Plan (1) Fall Status: Acute (2) HTN (hypertension) Status: Acute (3) Diabetes Status: Acute (4) Cellulitis Assessment & Plan: on antibiotics Status: Acute (5) Wrist fracture Status: Acute (6) Leg ulcer, left Status: Chronic
[2018-03-20] MEDS: Vancomycin 1 gm/NS 200 ml 1 GM/200 ML BAG IVPB SCH (18:35)
[2018-03-21] MEDS: Oxycodone/Acetaminophen 5/325 mg Tab PO PRN ×5 (04:05→21:41)
[2018-03-21] MEDS: oxyCODONE 80 mg ER Tab (oxyCONTIN) PO SCH ×4 (05:30→23:45)
[2018-03-21] MEDS: Meropenem 1 GM in Sodium Chloride 0.9% 100 ML IVPB SCH ×3 (05:31→21:39)
[2018-03-21] MEDS: Levothyroxine 75 MCG TAB PO SCH (05:31)
[2018-03-21] MEDS: Fluticasone-Salmeterol 250-50mcg Diskus IH SCH ×3 (07:11→20:14)
[2018-03-21] MEDS: (Novolin R) Insulin Human Regular 100 units/ml vial SC SCH ×4 (08:30→21:16)
[2018-03-21] MEDS: Ferrous Fum/Folic Acid/IF/VI 1 Cap PO SCH (09:11)
[2018-03-21] MEDS: Multivitamin With Minerals Tab PO SCH (09:12)
--- NOTE | 2018-03-21 15:13 | CP.PCM.PN ---
Subjective - Date & Time of Evaluation Date of Evaluation: 03/21/18 Time of Evaluation: 09:00 - Subjective Subjective: improving on IV rx will need PICC line and rx for 14 -21 days may benefit from skin graft dr christiansen following unsafe to discharge home with fx left arm Objective - Vital Signs/Intake and Output Vital Signs (last 24 hours): Temp Pulse Resp BP Pulse Ox 97.8 F 63 18 125/78 100 03/21/18 07:27 03/21/18 07:27 03/21/18 07:27 03/21/18 14:17 03/21/18 07:27 Intake and Output: 03/21/18 03/21/18 06:59 18:59 Intake Total 500 Output Total 1700 Balance -1700 500 - Medications Medications: Current Medications Acetaminophen (Tylenol 325mg Tab) 650 mg PO Q6 PRN PRN Reason: Headache Docusate Sodium (Colace) 100 mg PO DAILY [facility] Last Admin: 03/21/18 09:12 Dose: 100 mg Furosemide (Lasix) 40 mg PO BID [facility] Last Admin: 03/21/18 09:11 Dose: 40 mg Hydralazine HCl (Apresoline) 25 mg PO Q8 [facility] Last Admin: 03/21/18 14:17 Dose: 25 mg Vancomycin/Sodium Chloride (Vancomycin 1 Gm/Ns 200 Ml) 1 gm in 200 mls @ 133 mls/hr IVPB Q24H [facility] PRN Reason: Protocol Stop: 03/23/18 19:01 Last Admin: 03/20/18 18:35 Dose: 133 mls/hr Meropenem 1 gm/ Sodium (Chloride) 100 mls @ 100 mls/hr IVPB Q8 [facility] PRN Reason: Protocol Last Admin: 03/21/18 13:48 Dose: 100 mls/hr Insulin Human Regular (Novolin R) 0 unit SC ACHS [facility] PRN Reason: Protocol Last Admin: 03/21/18 12:30 Dose: Not Given Iron (Ferocon) 1 cap PO DAILY [facility] Last Admin: 03/21/18 09:11 Dose: 1 cap Levothyroxine Sodium (Synthroid) 75 mcg PO DAILY@0630 [facility] Last Admin: 03/21/18 05:31 Dose: 75 mcg Metformin HCl (Glucophage Xr) 500 mg PO BID [facility] Last Admin: 03/21/18 09:12 Dose: 500 mg Multivitamins/Minerals (Therapeutic-M Tab) 1 tab PO DAILY [facility] Last Admin: 03/21/18 09:12 Dose: 1 tab Mupirocin (Bactroban Ointment) 1 gm TOP BID [facility] Last Admin: 03/21/18 09:12 Dose: Not Given Nystatin (Nystop Topical Powder) 1 applic TOP BID [facility] Last Admin: 03/21/18 11:06 Dose: 1 applic Oxycodone HCl (Oxycontin Extended Release Tab) 80 mg PO Q6 [facility] Last Admin: 03/21/18 11:43 Dose: 80 mg Oxycodone/Acetaminophen (Percocet 5/325 Mg Tab) 2 tab PO Q4H PRN PRN Reason: Pain, moderate (4-7) Stop: 03/23/18 21:33 Last Admin: 03/21/18 12:47 Dose: 2 tab Fluticasone/Salmeterol (Advair Diskus 250/50) 1 puff IH RQ12 [facility] Last Admin: 03/21/18 07:11 Dose: 1 puff Sitagliptin Phosphate (Januvia) 50 mg PO DAILY [facility] Last Admin: 03/21/18 09:12 Dose: 50 mg - Labs Labs: 03/20/18 08:48 03/20/18 08:48 PT 17.0 SECONDS (9.7-12.2) H 03/20/18 08:48 INR 1.5 03/20/18 08:48 APTT 29 SECONDS (21-34) 03/14/18 10:23 - Constitutional Appears: Non-toxic, Chronically Ill - Head Exam Head Exam: NORMOCEPHALIC - Eye Exam Eye Exam: PERRL - ENT Exam ENT Exam: Mucous Membranes Dry - Neck Exam Neck Exam: absent: Lymphadenopathy - Respiratory Exam Respiratory Exam: Decreased Breath Sounds - Cardiovascular Exam Cardiovascular Exam: REGULAR RHYTHM - GI/Abdominal Exam GI & Abdominal Exam: Distended, Soft - Rectal Exam Rectal Exam: Deferred - Exam Exam: NORMAL INSPECTION - Extremities Exam Extremities Exam: absent: Pedal Edema Assessment and Plan (1) Cellulitis Status: Acute (2) Closed fracture of left distal radius Status: Acute (3) Diabetes Status: Acute (4) Fall Status: Acute (5) HTN (hypertension) Status: Acute (6) Wrist fracture Status: Acute (7) Leg ulcer, left Status: Chronic
[2018-03-21] MEDS: Vancomycin 1 gm/NS 200 ml 1 GM/200 ML BAG IVPB SCH (18:08)
--- NOTE | 2018-03-21 23:20 | CP.PCM.PN ---
Subjective - Date & Time of Evaluation Date of Evaluation: 03/21/18 Time of Evaluation: 19:00 - Subjective Subjective: Pt is seen and examined today during rounds Objective - Vital Signs/Intake and Output Vital Signs (last 24 hours): Temp Pulse Resp BP Pulse Ox 97.5 F L 70 20 110/78 99 03/21/18 15:00 03/21/18 15:00 03/21/18 15:00 03/21/18 18:08 03/21/18 15:00 Intake and Output: 03/21/18 03/22/18 18:59 06:59 Intake Total 500 400 Balance 500 400 - Medications Medications: Current Medications Acetaminophen (Tylenol 325mg Tab) 650 mg PO Q6 PRN PRN Reason: Headache Docusate Sodium (Colace) 100 mg PO DAILY [facility] Last Admin: 03/21/18 09:12 Dose: 100 mg Furosemide (Lasix) 40 mg PO BID [facility] Last Admin: 03/21/18 18:08 Dose: 40 mg Hydralazine HCl (Apresoline) 25 mg PO Q8 [facility] Last Admin: 03/21/18 21:39 Dose: 25 mg Vancomycin/Sodium Chloride (Vancomycin 1 Gm/Ns 200 Ml) 1 gm in 200 mls @ 133 mls/hr IVPB Q24H [facility] PRN Reason: Protocol Stop: 03/23/18 19:01 Last Admin: 03/21/18 18:08 Dose: 133 mls/hr Meropenem 1 gm/ Sodium (Chloride) 100 mls @ 100 mls/hr IVPB Q8 [facility] PRN Reason: Protocol Last Admin: 03/21/18 21:39 Dose: 100 mls/hr Insulin Human Regular (Novolin R) 0 unit SC ACHS [facility] PRN Reason: Protocol Last Admin: 03/21/18 21:16 Dose: Not Given Iron (Ferocon) 1 cap PO DAILY [facility] Last Admin: 03/21/18 09:11 Dose: 1 cap Levothyroxine Sodium (Synthroid) 75 mcg PO DAILY@0630 [facility] Last Admin: 03/21/18 05:31 Dose: 75 mcg Metformin HCl (Glucophage Xr) 500 mg PO BID [facility] Last Admin: 03/21/18 17:15 Dose: Not Given Multivitamins/Minerals (Therapeutic-M Tab) 1 tab PO DAILY [facility] Last Admin: 03/21/18 09:12 Dose: 1 tab Mupirocin (Bactroban Ointment) 1 gm TOP BID [facility] Last Admin: 03/21/18 17:15 Dose: Not Given Nystatin (Nystop Topical Powder) 1 applic TOP BID [facility] Last Admin: 03/21/18 18:12 Dose: 1 applic Oxycodone HCl (Oxycontin Extended Release Tab) 80 mg PO Q6 [facility] Oxycodone/Acetaminophen (Percocet 5/325 Mg Tab) 2 tab PO Q4H PRN PRN Reason: Pain, moderate (4-7) Stop: 03/23/18 21:33 Last Admin: 03/21/18 21:41 Dose: 2 tab Fluticasone/Salmeterol (Advair Diskus 250/50) 1 puff IH RQ12 [facility] Last Admin: 03/21/18 20:14 Dose: 1 puff Sitagliptin Phosphate (Januvia) 50 mg PO DAILY [facility] Last Admin: 03/21/18 09:12 Dose: 50 mg - Labs Labs: 03/20/18 08:48 03/20/18 08:48 PT 17.0 SECONDS (9.7-12.2) H 03/20/18 08:48 INR 1.5 03/20/18 08:48 APTT 29 SECONDS (21-34) 03/14/18 10:23 Assessment and Plan (1) Fall Status: Acute (2) HTN (hypertension) Status: Acute (3) Diabetes Status: Acute (4) Cellulitis Status: Acute (5) Wrist fracture Status: Acute (6) Leg ulcer, left Status: Chronic
[2018-03-22] MEDS: Oxycodone/Acetaminophen 5/325 mg Tab PO PRN ×4 (02:51→22:04)
[2018-03-22] MEDS: Meropenem 1 GM in Sodium Chloride 0.9% 100 ML IVPB SCH ×3 (05:30→22:04)
[2018-03-22] MEDS: oxyCODONE 80 mg ER Tab (oxyCONTIN) PO SCH ×3 (05:30→17:55)
[2018-03-22] MEDS: Levothyroxine 75 MCG TAB PO SCH (05:30)
[2018-03-22] MEDS: (Novolin R) Insulin Human Regular 100 units/ml vial SC SCH ×4 (07:05→21:59)
[2018-03-22] MEDS: Fluticasone-Salmeterol 250-50mcg Diskus IH SCH ×2 (07:46→20:11)
[2018-03-22] MEDS: Multivitamin With Minerals Tab PO SCH (09:01)
[2018-03-22] MEDS: Ferrous Fum/Folic Acid/IF/VI 1 Cap PO SCH (09:01)
[2018-03-22 11:42] LABS: HEMOGLOBIN 10.2 g/dL (12.0-18.0); MEAN CELL VOLUME 77.9 fL (80.0-94.0); MEAN CORPUSCULAR HEMOGLOBIN 25.5 pg (27.0-31.0); MEAN CORPUSCULAR HGB CONC 32.7 g/dL (33.0-37.0); MEAN PLATELET VOLUME 10.2 fL (7.2-11.7); RBC 4.01 Mil/uL (4.40-5.90); RED CELL DISTRIBUTION WIDTH 18.4 % (11.5-14.5); WHITE BLOOD COUNT 6.6 K/uL (4.8-10.8)
[2018-03-22 11:47] LABS: INR 1.6
[2018-03-22 12:09] LABS: BLOOD UREA NITROGEN 26 mg/dL (9-20); CALCIUM 9.1 mg/dl (8.6-10.4); GFR AFRICAN-AMERICAN > 60; GFR NON-AFRICAN AMERICAN 52
[2018-03-22] MEDS: Vancomycin 1 gm/NS 200 ml 1 GM/200 ML BAG IVPB SCH ×2 (19:47→20:41)
--- NOTE | 2018-03-22 23:19 | CP.PCM.PN ---
Objective - Vital Signs/Intake and Output Vital Signs (last 24 hours): Temp Pulse Resp BP Pulse Ox 97.5 F L 64 20 121/74 96 03/22/18 16:14 03/22/18 16:14 03/22/18 16:14 03/22/18 17:56 03/22/18 16:14 Intake and Output: 03/22/18 03/23/18 18:59 06:59 Intake Total 400 300 Output Total 403 850 Balance -3 -550 - Medications Medications: Current Medications Acetaminophen (Tylenol 325mg Tab) 650 mg PO Q6 PRN PRN Reason: Headache Docusate Sodium (Colace) 100 mg PO DAILY [facility] Last Admin: 03/22/18 09:01 Dose: 100 mg Furosemide (Lasix) 40 mg PO BID [facility] Last Admin: 03/22/18 17:56 Dose: 40 mg Hydralazine HCl (Apresoline) 25 mg PO Q8 [facility] Last Admin: 03/22/18 22:04 Dose: 25 mg Vancomycin/Sodium Chloride (Vancomycin 1 Gm/Ns 200 Ml) 1 gm in 200 mls @ 133 mls/hr IVPB Q24H [facility] PRN Reason: Protocol Stop: 03/23/18 19:01 Last Admin: 03/22/18 20:41 Dose: 133 mls/hr Meropenem 1 gm/ Sodium (Chloride) 100 mls @ 100 mls/hr IVPB Q8 [facility] PRN Reason: Protocol Last Admin: 03/22/18 22:04 Dose: 100 mls/hr Insulin Human Regular (Novolin R) 0 unit SC ACHS [facility] PRN Reason: Protocol Last Admin: 03/22/18 21:59 Dose: Not Given Iron (Ferocon) 1 cap PO DAILY [facility] Last Admin: 03/22/18 09:01 Dose: 1 cap Levothyroxine Sodium (Synthroid) 75 mcg PO DAILY@0630 [facility] Last Admin: 03/22/18 05:30 Dose: 75 mcg Metformin HCl (Glucophage Xr) 500 mg PO BID [facility] Last Admin: 03/22/18 17:56 Dose: 500 mg Multivitamins/Minerals (Therapeutic-M Tab) 1 tab PO DAILY [facility] Last Admin: 03/22/18 09:01 Dose: 1 tab Mupirocin (Bactroban Ointment) 1 gm TOP BID [facility] Last Admin: 03/22/18 17:51 Dose: Not Given Nystatin (Nystop Topical Powder) 1 applic TOP BID [facility] Last Admin: 03/22/18 19:06 Dose: Not Given Oxycodone HCl (Oxycontin Extended Release Tab) 80 mg PO Q6 [facility] Last Admin: 03/22/18 17:55 Dose: 80 mg Oxycodone/Acetaminophen (Percocet 5/325 Mg Tab) 2 tab PO Q4H PRN PRN Reason: Pain, moderate (4-7) Stop: 03/23/18 21:33 Last Admin: 03/22/18 22:04 Dose: 2 tab Fluticasone/Salmeterol (Advair Diskus 250/50) 1 puff IH RQ12 [facility] Last Admin: 03/22/18 20:11 Dose: Not Given Sitagliptin Phosphate (Januvia) 50 mg PO DAILY [facility] Last Admin: 03/22/18 09:01 Dose: 50 mg - Labs Labs: 03/22/18 11:34 03/22/18 11:34 PT 18.0 SECONDS (9.7-12.2) H 03/22/18 11:34 INR 1.6 03/22/18 11:34 APTT 29 SECONDS (21-34) 03/14/18 10:23 Assessment and Plan (1) Fall Status: Acute (2) HTN (hypertension) Status: Acute (3) Diabetes Status: Acute (4) Cellulitis Status: Acute (5) Wrist fracture Status: Acute (6) Leg ulcer, left Status: Chronic
[2018-03-23] MEDS: oxyCODONE 80 mg ER Tab (oxyCONTIN) PO SCH ×5 (00:01→23:41)
[2018-03-23] MEDS: Oxycodone/Acetaminophen 5/325 mg Tab PO PRN ×4 (02:37→21:59)
[2018-03-23] MEDS: Meropenem 1 GM in Sodium Chloride 0.9% 100 ML IVPB SCH ×3 (05:37→21:51)
[2018-03-23] MEDS: Levothyroxine 75 MCG TAB PO SCH (05:38)
[2018-03-23] MEDS: (Novolin R) Insulin Human Regular 100 units/ml vial SC SCH ×4 (07:33→21:51)
[2018-03-23] MEDS: Fluticasone-Salmeterol 250-50mcg Diskus IH SCH ×2 (08:08→20:10)
[2018-03-23] MEDS: Multivitamin With Minerals Tab PO SCH (10:09)
[2018-03-23] MEDS: Ferrous Fum/Folic Acid/IF/VI 1 Cap PO SCH (10:09)
[2018-03-23 11:02] LABS: INR 1.4; PROTHROMBIN TIME 16.1 SECONDS (9.7-12.2)
--- NOTE | 2018-03-23 13:38 | CP.PCM.PN ---
<Yashira Leyva - Last Filed: 03/23/18 13:34> Subjective - Date & Time of Evaluation Date of Evaluation: 03/23/18 Time of Evaluation: 11:30 - Subjective Subjective: 57 year old male seen at bedside for chronic, recurrent wounds to the left lower extremity. Pt is clinically same. Denies any acute overnight events or any new pedal complaints at this time. States that pain is well controlled. Denies any recent N/V/F/C/CP/SOB/D/posterior calf pain when squeezed Objective - Vital Signs/Intake and Output Vital Signs (last 24 hours): Temp Pulse Resp BP Pulse Ox 98.0 F 67 20 132/71 97 03/23/18 07:15 03/23/18 07:15 03/23/18 07:15 03/23/18 11:40 03/23/18 07:15 Intake and Output: 03/23/18 03/23/18 06:59 18:59 Intake Total 300 Output Total 850 Balance -550 - Medications Medications: Current Medications Acetaminophen (Tylenol 325mg Tab) 650 mg PO Q6 PRN PRN Reason: Headache Docusate Sodium (Colace) 100 mg PO DAILY [facility] Last Admin: 03/23/18 10:09 Dose: 100 mg Furosemide (Lasix) 40 mg PO BID [facility] Last Admin: 03/23/18 10:09 Dose: 40 mg Hydralazine HCl (Apresoline) 25 mg PO Q8 [facility] Last Admin: 03/23/18 05:37 Dose: 25 mg Vancomycin/Sodium Chloride (Vancomycin 1 Gm/Ns 200 Ml) 1 gm in 200 mls @ 133 mls/hr IVPB Q24H [facility] PRN Reason: Protocol Stop: 03/23/18 19:01 Last Admin: 03/22/18 20:41 Dose: 133 mls/hr Meropenem 1 gm/ Sodium (Chloride) 100 mls @ 100 mls/hr IVPB Q8 [facility] PRN Reason: Protocol Last Admin: 03/23/18 05:37 Dose: 100 mls/hr Insulin Human Regular (Novolin R) 0 unit SC ACHS [facility] PRN Reason: Protocol Last Admin: 03/23/18 12:28 Dose: 1 unit Iron (Ferocon) 1 cap PO DAILY [facility] Last Admin: 03/23/18 10:09 Dose: 1 cap Levothyroxine Sodium (Synthroid) 75 mcg PO DAILY@0630 [facility] Last Admin: 03/23/18 05:38 Dose: 75 mcg Metformin HCl (Glucophage Xr) 500 mg PO BID [facility] Last Admin: 03/23/18 10:09 Dose: 500 mg Multivitamins/Minerals (Therapeutic-M Tab) 1 tab PO DAILY [facility] Last Admin: 03/23/18 10:09 Dose: 1 tab Mupirocin (Bactroban Ointment) 1 gm TOP BID [facility] Last Admin: 03/23/18 12:07 Dose: 1 applic Nystatin (Nystop Topical Powder) 1 applic TOP BID [facility] Last Admin: 03/23/18 10:09 Dose: Not Given Oxycodone HCl (Oxycontin Extended Release Tab) 80 mg PO Q6 [facility] Last Admin: 03/23/18 11:39 Dose: 80 mg Oxycodone/Acetaminophen (Percocet 5/325 Mg Tab) 2 tab PO Q4H PRN PRN Reason: Pain, moderate (4-7) Stop: 03/23/18 21:33 Last Admin: 03/23/18 08:43 Dose: 2 tab Fluticasone/Salmeterol (Advair Diskus 250/50) 1 puff IH RQ12 [facility] Last Admin: 03/23/18 08:08 Dose: 1 puff Sitagliptin Phosphate (Januvia) 50 mg PO DAILY [facility] Last Admin: 03/23/18 10:09 Dose: 50 mg Warfarin Sodium (Coumadin) 12 mg PO 1800 [facility] Stop: 03/23/18 18:01 - Labs Labs: 03/22/18 11:34 03/22/18 11:34 PT 16.1 SECONDS (9.7-12.2) H 03/23/18 10:52 INR 1.4 03/23/18 10:52 APTT 29 SECONDS (21-34) 03/14/18 10:23 - Constitutional Appears: Well, Non-toxic, No Acute Distress - Extremities Exam Additional comments: Lower extremity focused exam: No strikethrough noted to outer layer of dressings bilaterally. Vasc: Non-palpable pedal pulses due to edema b/l, TG warm to warm, CFT < 3 sec to all digits, +1 pitting edema Derm: +1 pitting edema to legs bilaterally. Localized mild non-streaking, blanchable periwound erythema to mid-calf level bilateral. Left: Multiple continuos open ulcerations extending from tibial tuberosity to medial malleolus noted to the to Anterior leg and posterior ulceration undergoing early stage re-epithelialization. Minor active sero-sanguinous drainage, wound base is 100% granular. No shital-wound macerations. No purulence noted, moderate malodor noted. Right: Open superficial ulceration noted to the medial aspect of leg at mid- calf level approximately 4.8 x 3.8 cm. Ulceration margins undergoing early stage re-epithelialization With moderate active serosanguinous drainage, wound base is 100% granular with no shital-wound macerations. No purulence noted, moderate malodor noted. Neuro: sensation grossly diminished MUSC: pain on palpation of posterior and medial legs b/l - Neurological Exam Neurological Exam: Alert, Awake, Oriented x3 - Psychiatric Exam Psychiatric exam: Normal Affect, Normal Mood Assessment and Plan - Assessment and Plan (Free Text) Assessment: 57 year old male with bilateral chronic, recurrent wounds to the left lower extremity, improving Plan: Patient seen and evaluated. Discussed with attending Dr. Laguna. Charts, labs, vitals reviewed Continue IV abx per ID Continue medical management per Medicine Team Continue IV abd per ID. Day 04/12 complete. -Wound cx: MRSA, E coli, E Cloacae Ssp Bilateral leg wounds dressed with Bactroban, Telfa, ABD, DSD No plan for surgical management at this time Patient to follow up with Dr. Laguna upon discharge Podiatry will continue to follow while patient in house <Casey Laguna - Last Filed: 03/23/18 19:14> Objective - Vital Signs/Intake and Output Vital Signs (last 24 hours): Temp Pulse Resp BP Pulse Ox 97.5 F L 67 20 108/78 95 03/23/18 15:49 03/23/18 15:49 03/23/18 15:49 03/23/18 17:50 03/23/18 15:49 Intake and Output: 03/23/18 03/24/18 18:59 06:59 Intake Total 480 Balance 480 - Medications Medications: Current Medications Acetaminophen (Tylenol 325mg Tab) 650 mg PO Q6 PRN PRN Reason: Headache Docusate Sodium (Colace) 100 mg PO DAILY [facility] Last Admin: 03/23/18 10:09 Dose: 100 mg Furosemide (Lasix) 40 mg PO BID [facility] Last Admin: 03/23/18 17:50 Dose: 40 mg Hydralazine HCl (Apresoline) 25 mg PO Q8 [facility] Last Admin: 03/23/18 14:06 Dose: 25 mg Meropenem 1 gm/ Sodium (Chloride) 100 mls @ 100 mls/hr IVPB Q8 [facility] PRN Reason: Protocol Last Admin: 03/23/18 14:06 Dose: 100 mls/hr Insulin Human Regular (Novolin R) 0 unit SC ACHS [facility] PRN Reason: Protocol Last Admin: 03/23/18 16:59 Dose: Not Given Iron (Ferocon) 1 cap PO DAILY [facility] Last Admin: 03/23/18 10:09 Dose: 1 cap Levothyroxine Sodium (Synthroid) 75 mcg PO DAILY@0630 [facility] Last Admin: 03/23/18 05:38 Dose: 75 mcg Metformin HCl (Glucophage Xr) 500 mg PO BID [facility] Last Admin: 03/23/18 17:53 Dose: 500 mg Multivitamins/Minerals (Therapeutic-M Tab) 1 tab PO DAILY [facility] Last Admin: 03/23/18 10:09 Dose: 1 tab Mupirocin (Bactroban Ointment) 1 gm TOP BID [facility] Last Admin: 03/23/18 18:08 Dose: Not Given Nystatin (Nystop Topical Powder) 1 applic TOP BID [facility] Last Admin: 03/23/18 18:08 Dose: Not Given Oxycodone HCl (Oxycontin Extended Release Tab) 80 mg PO Q6 [facility] Last Admin: 03/23/18 17:51 Dose: 80 mg Oxycodone/Acetaminophen (Percocet 5/325 Mg Tab) 2 tab PO Q4H PRN PRN Reason: Pain, moderate (4-7) Stop: 03/23/18 21:33 Last Admin: 03/23/18 16:11 Dose: 2 tab Fluticasone/Salmeterol (Advair Diskus 250/50) 1 puff IH RQ12 [facility] Last Admin: 03/23/18 08:08 Dose: 1 puff Sitagliptin Phosphate (Januvia) 50 mg PO DAILY [facility] Last Admin: 03/23/18 10:09 Dose: 50 mg - Labs Labs: 03/22/18 11:34 03/22/18 11:34 PT 16.1 SECONDS (9.7-12.2) H 03/23/18 10:52 INR 1.4 03/23/18 10:52 APTT 29 SECONDS (21-34) 03/14/18 10:23 Assessment and Plan - Assessment and Plan (Free Text) Plan: as above /will continue local wound care with bactroban and non adherent dressings . Discussed with patient need for considering [place] [facility] placement .He states he will consider it . /
[2018-03-23] MEDS: Vancomycin 1 gm/NS 200 ml 1 GM/200 ML BAG IVPB SCH (20:37)
--- NOTE | 2018-03-23 23:30 | CP.PCM.PN ---
Subjective - Date & Time of Evaluation Date of Evaluation: 03/23/18 Time of Evaluation: 18:00 - Subjective Subjective: Pt seen and examined at bedside Objective - Vital Signs/Intake and Output Vital Signs (last 24 hours): Temp Pulse Resp BP Pulse Ox 97.5 F L 67 20 108/78 95 03/23/18 15:49 03/23/18 15:49 03/23/18 15:49 03/23/18 17:50 03/23/18 15:49 Intake and Output: 03/23/18 03/24/18 18:59 06:59 Intake Total 480 Balance 480 - Medications Medications: Current Medications Acetaminophen (Tylenol 325mg Tab) 650 mg PO Q6 PRN PRN Reason: Headache Docusate Sodium (Colace) 100 mg PO DAILY [facility] Last Admin: 03/23/18 10:09 Dose: 100 mg Furosemide (Lasix) 40 mg PO BID [facility] Last Admin: 03/23/18 17:50 Dose: 40 mg Hydralazine HCl (Apresoline) 25 mg PO Q8 [facility] Last Admin: 03/23/18 21:51 Dose: 25 mg Meropenem 1 gm/ Sodium (Chloride) 100 mls @ 100 mls/hr IVPB Q8 [facility] PRN Reason: Protocol Last Admin: 03/23/18 21:51 Dose: 100 mls/hr Insulin Human Regular (Novolin R) 0 unit SC ACHS [facility] PRN Reason: Protocol Last Admin: 03/23/18 21:51 Dose: Not Given Iron (Ferocon) 1 cap PO DAILY [facility] Last Admin: 03/23/18 10:09 Dose: 1 cap Levothyroxine Sodium (Synthroid) 75 mcg PO DAILY@0630 [facility] Last Admin: 03/23/18 05:38 Dose: 75 mcg Metformin HCl (Glucophage Xr) 500 mg PO BID [facility] Last Admin: 03/23/18 17:53 Dose: 500 mg Multivitamins/Minerals (Therapeutic-M Tab) 1 tab PO DAILY [facility] Last Admin: 03/23/18 10:09 Dose: 1 tab Mupirocin (Bactroban Ointment) 1 gm TOP BID [facility] Last Admin: 03/23/18 18:08 Dose: Not Given Nystatin (Nystop Topical Powder) 1 applic TOP BID [facility] Last Admin: 03/23/18 18:08 Dose: Not Given Oxycodone HCl (Oxycontin Extended Release Tab) 80 mg PO Q6 [facility] Last Admin: 03/23/18 17:51 Dose: 80 mg Oxycodone/Acetaminophen (Percocet 5/325 Mg Tab) 2 tab PO Q4H PRN PRN Reason: Pain, moderate (4-7) Stop: 03/26/18 21:55 Last Admin: 03/23/18 21:59 Dose: 2 tab Fluticasone/Salmeterol (Advair Diskus 250/50) 1 puff IH RQ12 [facility] Last Admin: 03/23/18 20:10 Dose: 1 puff Sitagliptin Phosphate (Januvia) 50 mg PO DAILY [facility] Last Admin: 03/23/18 10:09 Dose: 50 mg - Labs Labs: 03/22/18 11:34 03/22/18 11:34 PT 16.1 SECONDS (9.7-12.2) H 03/23/18 10:52 INR 1.4 03/23/18 10:52 APTT 29 SECONDS (21-34) 03/14/18 10:23 Assessment and Plan (1) Fall Status: Acute (2) HTN (hypertension) Status: Acute (3) Diabetes Status: Acute (4) Cellulitis Status: Acute (5) Wrist fracture Status: Acute (6) Leg ulcer, left Status: Chronic
[2018-03-24] MEDS: Oxycodone/Acetaminophen 5/325 mg Tab PO PRN ×5 (02:32→22:42)
[2018-03-24] MEDS: Levothyroxine 75 MCG TAB PO SCH (05:30)
[2018-03-24] MEDS: Meropenem 1 GM in Sodium Chloride 0.9% 100 ML IVPB SCH ×3 (05:30→21:16)
[2018-03-24] MEDS: oxyCODONE 80 mg ER Tab (oxyCONTIN) PO SCH ×4 (05:30→23:58)
[2018-03-24] MEDS: (Novolin R) Insulin Human Regular 100 units/ml vial SC SCH ×4 (07:37→21:21)
[2018-03-24] MEDS: Fluticasone-Salmeterol 250-50mcg Diskus IH SCH (07:48)
[2018-03-24] MEDS: Ferrous Fum/Folic Acid/IF/VI 1 Cap PO SCH (09:43)
[2018-03-24] MEDS: Multivitamin With Minerals Tab PO SCH (09:43)
[2018-03-24 11:24] LABS: INR 1.6; PROTHROMBIN TIME 18.1 SECONDS (9.7-12.2)
--- NOTE | 2018-03-24 17:56 | CP.PCM.PN ---
Subjective - Date & Time of Evaluation Date of Evaluation: 03/24/18 Time of Evaluation: 17:53 - Subjective Subjective: pt seen this pm no complaints bandages clean and intact . Objective - Vital Signs/Intake and Output Vital Signs (last 24 hours): Temp Pulse Resp BP Pulse Ox 97.8 F 72 20 122/88 98 03/24/18 16:00 03/24/18 16:00 03/24/18 16:00 03/24/18 17:10 03/24/18 16:00 Intake and Output: 03/24/18 03/24/18 06:59 18:59 Intake Total 400 Output Total 1200 Balance -1200 400 - Medications Medications: Current Medications Acetaminophen (Tylenol 325mg Tab) 650 mg PO Q6 PRN PRN Reason: Headache Docusate Sodium (Colace) 100 mg PO DAILY [facility] Last Admin: 03/24/18 09:43 Dose: 100 mg Furosemide (Lasix) 40 mg PO BID [facility] Last Admin: 03/24/18 17:10 Dose: 40 mg Hydralazine HCl (Apresoline) 25 mg PO Q8 [facility] Last Admin: 03/24/18 13:07 Dose: 25 mg Meropenem 1 gm/ Sodium (Chloride) 100 mls @ 100 mls/hr IVPB Q8 [facility] PRN Reason: Protocol Last Admin: 03/24/18 13:23 Dose: 100 mls/hr Insulin Human Regular (Novolin R) 0 unit SC ACHS [facility] PRN Reason: Protocol Last Admin: 03/24/18 16:52 Dose: Not Given Iron (Ferocon) 1 cap PO DAILY [facility] Last Admin: 03/24/18 09:43 Dose: 1 cap Levothyroxine Sodium (Synthroid) 75 mcg PO DAILY@0630 [facility] Last Admin: 03/24/18 05:30 Dose: 75 mcg Metformin HCl (Glucophage Xr) 500 mg PO BID [facility] Last Admin: 03/24/18 17:10 Dose: 500 mg Multivitamins/Minerals (Therapeutic-M Tab) 1 tab PO DAILY [facility] Last Admin: 03/24/18 09:43 Dose: 1 tab Mupirocin (Bactroban Ointment) 1 gm TOP BID [facility] Last Admin: 03/24/18 17:08 Dose: 1 applic Nystatin (Nystop Topical Powder) 1 applic TOP BID [facility] Last Admin: 04/25/18 17:11 Dose: 1 applic Oxycodone HCl (Oxycontin Extended Release Tab) 80 mg PO Q6 [facility] Last Admin: 03/24/18 17:10 Dose: 80 mg Oxycodone/Acetaminophen (Percocet 5/325 Mg Tab) 2 tab PO Q4H PRN PRN Reason: Pain, moderate (4-7) Stop: 03/26/18 21:55 Last Admin: 03/24/18 17:09 Dose: 2 tab Fluticasone/Salmeterol (Advair Diskus 250/50) 1 puff IH RQ12 [facility] Last Admin: 03/24/18 07:48 Dose: 1 puff Sitagliptin Phosphate (Januvia) 50 mg PO DAILY [facility] Last Admin: 03/24/18 09:42 Dose: 50 mg Warfarin Sodium (Coumadin) 12 mg PO 1800 [facility] Stop: 03/24/18 18:01 Last Admin: 03/24/18 17:09 Dose: 12 mg - Labs Labs: 03/22/18 11:34 03/22/18 11:34 PT 18.1 SECONDS (9.7-12.2) H 03/24/18 10:58 INR 1.6 03/24/18 10:58 APTT 29 SECONDS (21-34) 03/14/18 10:23 - Extremities Exam Additional comments: O/ vascular staus intact b/l . Infection slowly improving . Edema improved with bedrest b/l . Chronic Radiculopathy B/l and Arthralgia with stiffness noted . Assessment and Plan - Assessment and Plan (Free Text) Assessment: A/stasis ulcer left extensive Plan: P/Will resume wound care in AM .Continue Antibiotics as per Dr Antonio . Discussed senior care changes needed for effective resolution of condition .
--- NOTE | 2018-03-24 18:48 | CP.PCM.PN ---
Subjective - Date & Time of Evaluation Date of Evaluation: 03/24/18 Time of Evaluation: 09:00 - Subjective Subjective: seen on rounds wound same discussed with Dr Laguna no PO options severely debilitated with fall risk s/p fx left wrist needs MOR Objective - Vital Signs/Intake and Output Vital Signs (last 24 hours): Temp Pulse Resp BP Pulse Ox 97.8 F 72 20 122/88 98 03/24/18 16:00 03/24/18 16:00 03/24/18 16:00 03/24/18 17:10 03/24/18 16:00 Intake and Output: 03/24/18 03/24/18 06:59 18:59 Intake Total 400 Output Total 1200 Balance -1200 400 - Medications Medications: Current Medications Acetaminophen (Tylenol 325mg Tab) 650 mg PO Q6 PRN PRN Reason: Headache Docusate Sodium (Colace) 100 mg PO DAILY [facility] Last Admin: 03/24/18 09:43 Dose: 100 mg Furosemide (Lasix) 40 mg PO BID [facility] Last Admin: 03/24/18 17:10 Dose: 40 mg Hydralazine HCl (Apresoline) 25 mg PO Q8 [facility] Last Admin: 03/24/18 13:07 Dose: 25 mg Meropenem 1 gm/ Sodium (Chloride) 100 mls @ 100 mls/hr IVPB Q8 [facility] PRN Reason: Protocol Last Admin: 03/24/18 13:23 Dose: 100 mls/hr Insulin Human Regular (Novolin R) 0 unit SC ACHS [facility] PRN Reason: Protocol Last Admin: 03/24/18 16:52 Dose: Not Given Iron (Ferocon) 1 cap PO DAILY [facility] Last Admin: 03/24/18 09:43 Dose: 1 cap Levothyroxine Sodium (Synthroid) 75 mcg PO DAILY@0630 [facility] Last Admin: 03/24/18 05:30 Dose: 75 mcg Metformin HCl (Glucophage Xr) 500 mg PO BID [facility] Last Admin: 03/24/18 17:10 Dose: 500 mg Multivitamins/Minerals (Therapeutic-M Tab) 1 tab PO DAILY [facility] Last Admin: 03/24/18 09:43 Dose: 1 tab Mupirocin (Bactroban Ointment) 1 gm TOP BID [facility] Last Admin: 03/24/18 17:08 Dose: 1 applic Nystatin (Nystop Topical Powder) 1 applic TOP BID [facility] Last Admin: 03/24/18 17:11 Dose: 1 applic Oxycodone HCl (Oxycontin Extended Release Tab) 80 mg PO Q6 [facility] Last Admin: 03/24/18 17:10 Dose: 80 mg Oxycodone/Acetaminophen (Percocet 5/325 Mg Tab) 2 tab PO Q4H PRN PRN Reason: Pain, moderate (4-7) Stop: 03/26/18 21:55 Last Admin: 03/24/18 17:09 Dose: 2 tab Fluticasone/Salmeterol (Advair Diskus 250/50) 1 puff IH RQ12 [facility] Last Admin: 03/24/18 07:48 Dose: 1 puff Sitagliptin Phosphate (Januvia) 50 mg PO DAILY [facility] Last Admin: 03/24/18 09:42 Dose: 50 mg - Labs Labs: 03/22/18 11:34 03/22/18 11:34 PT 18.1 SECONDS (9.7-12.2) H 03/24/18 10:58 INR 1.6 03/24/18 10:58 APTT 29 SECONDS (21-34) 03/14/18 10:23 - Constitutional Appears: Non-toxic, Chronically Ill - Head Exam Head Exam: NORMOCEPHALIC - Eye Exam Eye Exam: PERRL - ENT Exam ENT Exam: Mucous Membranes Dry - Neck Exam Neck Exam: absent: Lymphadenopathy - Respiratory Exam Respiratory Exam: Decreased Breath Sounds - Cardiovascular Exam Cardiovascular Exam: REGULAR RHYTHM - GI/Abdominal Exam GI & Abdominal Exam: Distended - Rectal Exam Rectal Exam: Deferred - Exam Exam: NORMAL INSPECTION - Extremities Exam Extremities Exam: Tenderness. absent: Pedal Edema - Back Exam Back Exam: absent: CVA tenderness (L), CVA tenderness (R) - Neurological Exam Neurological Exam: Alert, Awake, CN II-XII Intact, Oriented x3 Neuro motor strength exam: Left Upper Extremity: 3, Right Upper Extremity: 3, Left Lower Extremity: 3, Right Lower Extremity: 3 - Psychiatric Exam Psychiatric exam: Depressed - Skin Skin Exam: Dry Assessment and Plan (1) Cellulitis Status: Acute (2) Closed fracture of left distal radius Status: Acute (3) Diabetes Status: Acute (4) Fall Status: Acute (5) HTN (hypertension) Status: Acute (6) Wrist fracture Status: Acute (7) Leg ulcer, left Status: Chronic
--- NOTE | 2018-03-24 23:59 | CP.PCM.PN ---
Subjective - Date & Time of Evaluation Date of Evaluation: 03/24/18 Time of Evaluation: 17:00 - Subjective Subjective: pt is seen and evaluated today Objective - Vital Signs/Intake and Output Vital Signs (last 24 hours): Temp Pulse Resp BP Pulse Ox 97.8 F 72 20 122/88 98 03/24/18 16:00 03/24/18 16:00 03/24/18 16:00 03/24/18 17:10 03/24/18 16:00 Intake and Output: 03/24/18 03/25/18 18:59 06:59 Intake Total 400 Balance 400 - Medications Medications: Current Medications Acetaminophen (Tylenol 325mg Tab) 650 mg PO Q6 PRN PRN Reason: Headache Docusate Sodium (Colace) 100 mg PO DAILY [facility] Last Admin: 03/24/18 09:43 Dose: 100 mg Furosemide (Lasix) 40 mg PO BID [facility] Last Admin: 03/24/18 17:10 Dose: 40 mg Hydralazine HCl (Apresoline) 25 mg PO Q8 [facility] Last Admin: 03/24/18 21:16 Dose: 25 mg Meropenem 1 gm/ Sodium (Chloride) 100 mls @ 100 mls/hr IVPB Q8 [facility] PRN Reason: Protocol Last Admin: 03/24/18 21:16 Dose: 100 mls/hr Insulin Human Regular (Novolin R) 0 unit SC ACHS [facility] PRN Reason: Protocol Last Admin: 03/24/18 21:21 Dose: Not Given Iron (Ferocon) 1 cap PO DAILY [facility] Last Admin: 03/24/18 09:43 Dose: 1 cap Levothyroxine Sodium (Synthroid) 75 mcg PO DAILY@0630 [facility] Last Admin: 03/24/18 05:30 Dose: 75 mcg Metformin HCl (Glucophage Xr) 500 mg PO BID [facility] Last Admin: 03/24/18 17:10 Dose: 500 mg Multivitamins/Minerals (Therapeutic-M Tab) 1 tab PO DAILY [facility] Last Admin: 03/24/18 09:43 Dose: 1 tab Mupirocin (Bactroban Ointment) 1 gm TOP BID [facility] Last Admin: 03/24/18 17:08 Dose: 1 applic Nystatin (Nystop Topical Powder) 1 applic TOP BID [facility] Last Admin: 03/24/18 17:11 Dose: 1 applic Oxycodone HCl (Oxycontin Extended Release Tab) 80 mg PO Q6 [facility] Last Admin: 03/24/18 23:58 Dose: 80 mg Oxycodone/Acetaminophen (Percocet 5/325 Mg Tab) 2 tab PO Q4H PRN PRN Reason: Pain, moderate (4-7) Stop: 03/26/18 21:55 Last Admin: 03/24/18 22:42 Dose: 2 tab Fluticasone/Salmeterol (Advair Diskus 250/50) 1 puff IH RQ12 [facility] Last Admin: 03/24/18 07:48 Dose: 1 puff Sitagliptin Phosphate (Januvia) 50 mg PO DAILY [facility] Last Admin: 03/24/18 09:42 Dose: 50 mg - Labs Labs: 03/22/18 11:34 03/22/18 11:34 PT 18.1 SECONDS (9.7-12.2) H 03/24/18 10:58 INR 1.6 03/24/18 10:58 APTT 29 SECONDS (21-34) 03/14/18 10:23 Assessment and Plan (1) Fall Status: Acute (2) HTN (hypertension) Status: Acute (3) Diabetes Status: Acute (4) Cellulitis Status: Acute (5) Wrist fracture Status: Acute (6) Leg ulcer, left Status: Chronic
[2018-03-25] MEDS: Oxycodone/Acetaminophen 5/325 mg Tab PO PRN ×5 (04:26→21:46)
[2018-03-25] MEDS: oxyCODONE 80 mg ER Tab (oxyCONTIN) PO SCH ×4 (05:50→23:57)
[2018-03-25] MEDS: Levothyroxine 75 MCG TAB PO SCH (05:51)
[2018-03-25] MEDS: Fluticasone-Salmeterol 250-50mcg Diskus IH SCH ×2 (07:05→19:17)
[2018-03-25] MEDS: (Novolin R) Insulin Human Regular 100 units/ml vial SC SCH ×4 (07:49→21:48)
[2018-03-25 08:40] LABS: INR 1.8; PROTHROMBIN TIME 20.4 SECONDS (9.7-12.2)
[2018-03-25] MEDS: Ferrous Fum/Folic Acid/IF/VI 1 Cap PO SCH (11:02)
[2018-03-25] MEDS: Multivitamin With Minerals Tab PO SCH (11:02)
--- NOTE | 2018-03-25 12:50 | CP.PCM.PN ---
Subjective - Date & Time of Evaluation Date of Evaluation: 03/25/18 Time of Evaluation: 12:47 - Subjective Subjective: Patient states wrist pain is controlled. He admits to more pain in hand and forearm, but over all he is feeling better. Dnies numbness/tingling. No new injury. Review of Systems - Review of Systems Review of Systems: no fever/chills - Cardiovascular Cardiovascular: UNREMARKABLE - Respiratory Respiratory: UNREMARKABLE - Gastrointestinal Gastrointestinal: UNREMARKABLE - Musculoskeletal Musculoskeletal: As Par HPI - Integumentary Integumentary: Non-Healing Lesions, Skin Ulcer, Sores - Neurological Neurological: As Per HPI - Hematologic/Lymphatic Hematologic: UNREMARKABLE Objective - Vital Signs/Intake and Output Vital Signs (last 24 hours): Temp Pulse Resp BP Pulse Ox 97.8 F 61 18 136/79 95 03/25/18 07:34 03/25/18 07:34 03/25/18 07:34 03/25/18 11:02 03/25/18 07:34 - Medications Medications: Current Medications Acetaminophen (Tylenol 325mg Tab) 650 mg PO Q6 PRN PRN Reason: Headache Docusate Sodium (Colace) 100 mg PO DAILY [facility] Last Admin: 03/25/18 11:01 Dose: 100 mg Furosemide (Lasix) 40 mg PO BID [facility] Last Admin: 03/25/18 11:02 Dose: 40 mg Hydralazine HCl (Apresoline) 25 mg PO Q8 [facility] Last Admin: 03/25/18 05:51 Dose: 25 mg Meropenem 1 gm/ Sodium (Chloride) 100 mls @ 100 mls/hr IVPB Q8 [facility] PRN Reason: Protocol Last Admin: 03/24/18 21:16 Dose: 100 mls/hr Insulin Human Regular (Novolin R) 0 unit SC ACHS [facility] PRN Reason: Protocol Last Admin: 03/25/18 12:20 Dose: Not Given Iron (Ferocon) 1 cap PO DAILY [facility] Last Admin: 03/25/18 11:02 Dose: 1 cap Levothyroxine Sodium (Synthroid) 75 mcg PO DAILY@0630 [facility] Last Admin: 03/25/18 05:51 Dose: 75 mcg Metformin HCl (Glucophage Xr) 500 mg PO BID [facility] Last Admin: 03/25/18 11:01 Dose: 500 mg Multivitamins/Minerals (Therapeutic-M Tab) 1 tab PO DAILY [facility] Last Admin: 03/25/18 11:02 Dose: 1 tab Mupirocin (Bactroban Ointment) 1 gm TOP BID [facility] Last Admin: 03/25/18 11:03 Dose: Not Given Nystatin (Nystop Topical Powder) 1 applic TOP BID [facility] Last Admin: 03/25/18 11:02 Dose: 1 applic Oxycodone HCl (Oxycontin Extended Release Tab) 80 mg PO Q6 [facility] Last Admin: 03/25/18 11:03 Dose: 80 mg Oxycodone/Acetaminophen (Percocet 5/325 Mg Tab) 2 tab PO Q4H PRN PRN Reason: Pain, moderate (4-7) Stop: 03/26/18 21:55 Last Admin: 03/25/18 08:38 Dose: 2 tab Fluticasone/Salmeterol (Advair Diskus 250/50) 1 puff IH RQ12 [facility] Last Admin: 03/24/18 07:48 Dose: 1 puff Sitagliptin Phosphate (Januvia) 50 mg PO DAILY [facility] Last Admin: 03/25/18 11:02 Dose: 50 mg - Labs Labs: 03/22/18 11:34 03/22/18 11:34 PT 20.4 SECONDS (9.7-12.2) H 03/25/18 08:25 INR 1.8 03/25/18 08:25 APTT 29 SECONDS (21-34) 03/14/18 10:23 - Constitutional Appears: Well, No Acute Distress - Head Exam Head Exam: ATRAUMATIC - Neck Exam Neck Exam: Full ROM - Respiratory Exam Respiratory Exam: NORMAL BREATHING PATTERN - Cardiovascular Exam Additional comments: +cap refill/fingers warm - Extremities Exam Additional comments: left wrist splint intact sensation intact swelling improving - Neurological Exam Neurological Exam: Alert, Awake, Oriented x3 Neuro motor strength exam: Left Upper Extremity: 5 (full AROM fingers/thumb) - Psychiatric Exam Psychiatric exam: Normal Affect, Normal Mood - Skin Skin Exam: Dry, Intact, Normal Color, Warm Assessment and Plan (1) Closed fracture of left distal radius Assessment & Plan: splint at all times as per Dr. Young elevation ortho stable f/u Dr. Young upon discharge, call for appointment Status: Acute
[2018-03-25] MEDS: Meropenem 1 GM in Sodium Chloride 0.9% 100 ML IVPB SCH ×3 (13:20→23:08)
--- NOTE | 2018-03-25 17:05 | CP.PCM.PN ---
Subjective - Date & Time of Evaluation Date of Evaluation: 03/25/18 Time of Evaluation: 15:50 - Subjective Subjective: 57 year old male seen at bedside for chronic, recurrent wounds to the left lower extremity. Pt is clinically same. Denies any acute overnight events or any new pedal complaints at this time. States that pain is well controlled. Denies any recent N/V/F/C/CP/SOB/D/. Objective - Vital Signs/Intake and Output Vital Signs (last 24 hours): Temp Pulse Resp BP Pulse Ox 97.9 F 69 20 125/79 96 03/25/18 15:48 03/25/18 15:48 03/25/18 15:48 03/25/18 13:07 03/25/18 15:48 Intake and Output: 03/25/18 03/25/18 06:59 18:59 Intake Total 730 Balance 730 - Medications Medications: Current Medications Acetaminophen (Tylenol 325mg Tab) 650 mg PO Q6 PRN PRN Reason: Headache Docusate Sodium (Colace) 100 mg PO DAILY [facility] Last Admin: 03/25/18 11:01 Dose: 100 mg Furosemide (Lasix) 40 mg PO BID [facility] Last Admin: 03/25/18 11:02 Dose: 40 mg Hydralazine HCl (Apresoline) 25 mg PO Q8 [facility] Last Admin: 03/25/18 13:07 Dose: 25 mg Meropenem 1 gm/ Sodium (Chloride) 100 mls @ 100 mls/hr IVPB Q8 [facility] PRN Reason: Protocol Last Admin: 03/25/18 13:20 Dose: Not Given Vancomycin/Sodium Chloride (Vancomycin 1 Gm/Ns 200 Ml) 1 gm in 200 mls @ 133 mls/hr IVPB Q12H [facility] PRN Reason: Protocol Stop: 03/30/18 18:01 Insulin Human Regular (Novolin R) 0 unit SC ACHS [facility] PRN Reason: Protocol Last Admin: 03/25/18 12:20 Dose: Not Given Iron (Ferocon) 1 cap PO DAILY [facility] Last Admin: 03/25/18 11:02 Dose: 1 cap Levothyroxine Sodium (Synthroid) 75 mcg PO DAILY@0630 [facility] Last Admin: 03/25/18 05:51 Dose: 75 mcg Metformin HCl (Glucophage Xr) 500 mg PO BID [facility] Last Admin: 03/25/18 17:00 Dose: Not Given Multivitamins/Minerals (Therapeutic-M Tab) 1 tab PO DAILY [facility] Last Admin: 03/25/18 11:02 Dose: 1 tab Mupirocin (Bactroban Ointment) 1 gm TOP BID [facility] Last Admin: 03/25/18 11:03 Dose: Not Given Nystatin (Nystop Topical Powder) 1 applic TOP BID [facility] Last Admin: 03/25/18 11:02 Dose: 1 applic Oxycodone HCl (Oxycontin Extended Release Tab) 80 mg PO Q6 [facility] Last Admin: 03/25/18 11:03 Dose: 80 mg Oxycodone/Acetaminophen (Percocet 5/325 Mg Tab) 2 tab PO Q4H PRN PRN Reason: Pain, moderate (4-7) Stop: 03/26/18 21:55 Last Admin: 03/25/18 16:36 Dose: 2 tab Fluticasone/Salmeterol (Advair Diskus 250/50) 1 puff IH RQ12 [facility] Last Admin: 03/25/18 07:05 Dose: 1 puff Sitagliptin Phosphate (Januvia) 50 mg PO DAILY [facility] Last Admin: 03/25/18 11:02 Dose: 50 mg - Labs Labs: 03/22/18 11:34 03/22/18 11:34 PT 20.4 SECONDS (9.7-12.2) H 03/25/18 08:25 INR 1.8 03/25/18 08:25 APTT 29 SECONDS (21-34) 03/14/18 10:23 Assessment and Plan - Assessment and Plan (Free Text) Assessment: 57 year old male with bilateral chronic, extensive recurrent venous stasis ulcerations to the left lower extremity, improving Plan: Pt is clinically same. Pt is stbale, refused dressing changes at this time, will allow for in AM tomorrow. Dressing left intact, no sign of strike-through or drainage to outer layer of dressing. Per ID recommendation- as pt is severely debilitated with fall risk s/p fx left wrist pt will need MOR Continue IV abd per ID. Day 06/12 complete. Podiatry will continue to follow while inhouse.
[2018-03-25] MEDS ORDERED: Vancomycin 1 gm/NS 200 ml 1 GM/200 ML BAG IVPB SCH (18:00)
--- NOTE | 2018-03-25 23:53 | CP.PCM.PN ---
Subjective - Date & Time of Evaluation Date of Evaluation: 03/25/18 Time of Evaluation: 18:35 - Subjective Subjective: Pt seen and examined at bedside Objective - Vital Signs/Intake and Output Vital Signs (last 24 hours): Temp Pulse Resp BP Pulse Ox 97.9 F 69 20 127/75 96 03/25/18 15:48 03/25/18 15:48 03/25/18 15:48 03/25/18 17:04 03/25/18 15:48 Intake and Output: 03/25/18 03/26/18 18:59 06:59 Intake Total 730 Balance 730 - Medications Medications: Current Medications Acetaminophen (Tylenol 325mg Tab) 650 mg PO Q6 PRN PRN Reason: Headache Docusate Sodium (Colace) 100 mg PO DAILY [facility] Last Admin: 03/25/18 11:01 Dose: 100 mg Furosemide (Lasix) 40 mg PO BID [facility] Last Admin: 03/25/18 17:04 Dose: 40 mg Hydralazine HCl (Apresoline) 25 mg PO Q8 [facility] Last Admin: 03/25/18 21:46 Dose: 25 mg Meropenem 1 gm/ Sodium (Chloride) 100 mls @ 100 mls/hr IVPB Q8 [facility] PRN Reason: Protocol Last Admin: 03/25/18 23:08 Dose: Not Given Vancomycin/Sodium Chloride (Vancomycin 1 Gm/Ns 200 Ml) 1 gm in 200 mls @ 133 mls/hr IVPB Q12H [facility] PRN Reason: Protocol Stop: 03/30/18 18:01 Last Admin: 03/25/18 17:02 Dose: Not Given Insulin Human Regular (Novolin R) 0 unit SC ACHS [facility] PRN Reason: Protocol Last Admin: 03/25/18 21:48 Dose: Not Given Iron (Ferocon) 1 cap PO DAILY [facility] Last Admin: 03/25/18 11:02 Dose: 1 cap Levothyroxine Sodium (Synthroid) 75 mcg PO DAILY@0630 [facility] Last Admin: 03/25/18 05:51 Dose: 75 mcg Metformin HCl (Glucophage Xr) 500 mg PO BID [facility] Last Admin: 03/25/18 17:00 Dose: Not Given Multivitamins/Minerals (Therapeutic-M Tab) 1 tab PO DAILY [facility] Last Admin: 03/25/18 11:02 Dose: 1 tab Mupirocin (Bactroban Ointment) 1 gm TOP BID [facility] Last Admin: 03/25/18 17:01 Dose: Not Given Nystatin (Nystop Topical Powder) 1 applic TOP BID [facility] Last Admin: 03/25/18 17:05 Dose: 1 applic Oxycodone HCl (Oxycontin Extended Release Tab) 80 mg PO Q6 [facility] Last Admin: 03/25/18 17:04 Dose: 80 mg Oxycodone/Acetaminophen (Percocet 5/325 Mg Tab) 2 tab PO Q4H PRN PRN Reason: Pain, moderate (4-7) Stop: 03/26/18 21:55 Last Admin: 03/25/18 21:46 Dose: 2 tab Fluticasone/Salmeterol (Advair Diskus 250/50) 1 puff IH RQ12 [facility] Last Admin: 03/25/18 19:17 Dose: 1 puff Sitagliptin Phosphate (Januvia) 50 mg PO DAILY [facility] Last Admin: 03/25/18 11:02 Dose: 50 mg - Labs Labs: 03/22/18 11:34 03/22/18 11:34 PT 20.4 SECONDS (9.7-12.2) H 03/25/18 08:25 INR 1.8 03/25/18 08:25 APTT 29 SECONDS (21-34) 03/14/18 10:23 Assessment and Plan (1) Fall Status: Acute (2) HTN (hypertension) Status: Acute (3) Diabetes Status: Acute (4) Cellulitis Status: Acute (5) Wrist fracture Status: Acute (6) Leg ulcer, left Status: Chronic
[2018-03-26] MEDS ORDERED: Telavancin Hydrochloride 750 MG in Dextrose 5% In Water 100 ML IVPB SCH ×2 (01:00→13:00)
[2018-03-26] MEDS: Oxycodone/Acetaminophen 5/325 mg Tab PO PRN ×5 (04:17→23:35)
[2018-03-26] MEDS: Meropenem 1 GM in Sodium Chloride 0.9% 100 ML IVPB SCH ×3 (05:32→21:18)
[2018-03-26] MEDS: oxyCODONE 80 mg ER Tab (oxyCONTIN) PO SCH ×4 (06:10→23:27)
[2018-03-26] MEDS: Levothyroxine 75 MCG TAB PO SCH (06:10)
[2018-03-26] MEDS: (Novolin R) Insulin Human Regular 100 units/ml vial SC SCH ×4 (07:08→21:22)
[2018-03-26] MEDS: Fluticasone-Salmeterol 250-50mcg Diskus IH SCH ×2 (07:11→20:15)
[2018-03-26 08:11] LABS: BASO # 0.1 K/uL (0.0-0.2); BASO % 1.2 % (0.0-2.0); EOS # 0.3 K/uL (0.0-0.7); EOS % 4.1 % (0.0-4.0); HEMOGLOBIN 11.4 g/dL (12.0-18.0); LYMPH # 1.7 K/uL (1.0-4.3); LYMPH % 24.8 % (20.0-40.0); MEAN CELL VOLUME 77.9 fL (80.0-94.0); MEAN CORPUSCULAR HEMOGLOBIN 25.9 pg (27.0-31.0); MEAN CORPUSCULAR HGB CONC 33.2 g/dL (33.0-37.0); MEAN PLATELET VOLUME 9.9 fL (7.2-11.7); MONO # 0.5 K/uL (0.0-0.8); MONO % 7.1 % (0.0-10.0); NEUT # 4.4 K/uL (1.8-7.0); NEUT % 62.8 % (50.0-75.0); NRBC % 0.1 % (0.0-2.0); RBC 4.39 Mil/uL (4.40-5.90); RED CELL DISTRIBUTION WIDTH 19.2 % (11.5-14.5)
[2018-03-26 08:24] LABS: ALB/GLOB RATIO 0.8 (1.0-2.1); ALBUMIN 3.8 g/dL (3.5-5.0); ALT/SGPT 18 U/L (21-72); AST/SGOT 27 U/L (17-59); BLOOD UREA NITROGEN 31 mg/dL (9-20); CALCIUM 9.3 mg/dl (8.6-10.4); GFR AFRICAN-AMERICAN > 60; GFR NON-AFRICAN AMERICAN > 60
[2018-03-26] MEDS ORDERED: Lidocaine/Epinephrine 1% 1:100000 10 ML IJ ONE (09:52)
--- NOTE | 2018-03-26 10:36 | PCM.SURG1 ---
Surgeon's Initial Post Op Note - Surgeon's Notes Surgeon: Anibal Carroll MD Contact Center Engineer: NONE Type of Anesthesia: Local Pre-Operative Diagnosis: Infection Operative Findings: US showed a patent left basilic vein Post-Operative Diagnosis: Infection Operation Performed: Single lumen picc placement left basilic vein, 53 cm. Tip is in the SVC. Specimen/Specimens Removed: NONE Estimated Blood Loss: EBL {In ML}: 2 Blood Products Given: N/A Drains Used: No Drains Post-Op Condition: Fair Date of Surgery/Procedure: 03/26/18 Time of Surgery/Procedure: 10:35
[2018-03-26] MEDS: Multivitamin With Minerals Tab PO SCH (11:00)
[2018-03-26] MEDS: Ferrous Fum/Folic Acid/IF/VI 1 Cap PO SCH (11:00)
--- NOTE | 2018-03-26 11:26 | CP.PCM.PN ---
Subjective - Date & Time of Evaluation Date of Evaluation: 03/26/18 Time of Evaluation: 10:00 - Subjective Subjective: s/p PICC plan is for out pt IV rx and wound care prognosis guarded hi risk for falls Objective - Vital Signs/Intake and Output Vital Signs (last 24 hours): Temp Pulse Resp BP Pulse Ox 97.8 F 64 20 125/80 98 03/26/18 07:18 03/26/18 07:18 03/26/18 07:18 03/26/18 11:00 03/26/18 07:18 - Medications Medications: Current Medications Acetaminophen (Tylenol 325mg Tab) 650 mg PO Q6 PRN PRN Reason: Headache Docusate Sodium (Colace) 100 mg PO DAILY [facility] Last Admin: 03/26/18 11:00 Dose: Not Given Furosemide (Lasix) 40 mg PO BID [facility] Last Admin: 03/26/18 11:00 Dose: 40 mg Hydralazine HCl (Apresoline) 25 mg PO Q8 [facility] Last Admin: 03/26/18 06:10 Dose: 25 mg Ertapenem 1 gm/ Sodium (Chloride) 50 mls @ 100 mls/hr IV ONCE ONE PRN Reason: Protocol Stop: 03/26/18 11:52 Insulin Human Regular (Novolin R) 0 unit SC ACHS [facility] PRN Reason: Protocol Last Admin: 03/26/18 07:08 Dose: Not Given Iron (Ferocon) 1 cap PO DAILY [facility] Last Admin: 03/26/18 11:00 Dose: 1 cap Levothyroxine Sodium (Synthroid) 75 mcg PO DAILY@0630 [facility] Last Admin: 03/26/18 06:10 Dose: 75 mcg Metformin HCl (Glucophage Xr) 500 mg PO BID [facility] Last Admin: 03/26/18 11:00 Dose: 500 mg Multivitamins/Minerals (Therapeutic-M Tab) 1 tab PO DAILY [facility] Last Admin: 03/26/18 11:00 Dose: 1 tab Mupirocin (Bactroban Ointment) 1 gm TOP BID [facility] Last Admin: 03/26/18 11:00 Dose: 1 applic Nystatin (Nystop Topical Powder) 1 applic TOP BID [facility] Last Admin: 03/26/18 11:00 Dose: 1 applic Oxycodone HCl (Oxycontin Extended Release Tab) 80 mg PO Q6 [facility] Last Admin: 03/26/18 11:10 Dose: 80 mg Oxycodone/Acetaminophen (Percocet 5/325 Mg Tab) 2 tab PO Q4H PRN PRN Reason: Pain, moderate (4-7) Stop: 03/26/18 21:55 Last Admin: 03/26/18 08:45 Dose: 2 tab Fluticasone/Salmeterol (Advair Diskus 250/50) 1 puff IH RQ12 [facility] Last Admin: 03/26/18 07:11 Dose: 1 puff Sitagliptin Phosphate (Januvia) 50 mg PO DAILY [facility] Last Admin: 03/26/18 11:00 Dose: 50 mg - Labs Labs: 03/26/18 08:02 03/26/18 08:02 PT 20.4 SECONDS (9.7-12.2) H 03/25/18 08:25 INR 1.8 03/25/18 08:25 APTT 29 SECONDS (21-34) 03/14/18 10:23 Assessment and Plan (1) Cellulitis Status: Acute (2) Closed fracture of left distal radius Status: Acute (3) Diabetes Status: Acute (4) Fall Status: Acute (5) HTN (hypertension) Status: Acute (6) Wrist fracture Status: Acute (7) Leg ulcer, left Status: Chronic
--- NOTE | 2018-03-26 12:45 | SPECPROC ---
PROCEDURE: Date of procedure: 03/26/2018 Procedure: 1. Placement of a left arm PICC with ultrasound and fluoroscopic guidance, CPT 63859 2. PICC tip confirmation with spot radiograph and is in the superior vena cava Medications: 3cc 1 percent lidocaine Total Fluoro time: 29 seconds Radiation: 7 mGy EBL: 3 cc HISTORY: Infection requiring long-term IV antibiotics TECHNIQUE: Following informed consent and procedure time-out, the patient placed supine on the interventional table and the left arm prepped and draped in the usual sterile fashion. Ultrasound showed a patent and compressible left basilic vein. After the skin was anesthetized with lidocaine, the basilic vein was accessed with micro micropuncture technique using ultrasound guidance. A guidewire was then advanced under fluoroscopic guidance into the superior vena cava. An image documenting ultrasound guidance for vascular access was permanently saved. The length of a single-lumen 4 [place] PICC was trimmed to 53 cm and advanced through a peel-away sheath. The PICC was position with tip of PICC confirm a spot radiograph the superior vena cava. The PICC was secured to the patient's skin. The PICC was flushed. A biopatch and sterile dressing was applied. IMPRESSION: Placement of a single-lumen 4 [place] PICC left basilic vein trimmed to 53 cm. The tip of the PICC is confirmed with spot radiograph and is in the superior vena cava.
[2018-03-26] MEDS: Vancomycin 1 gm/NS 200 ml 1 GM/200 ML BAG IVPB SCH (16:33)
--- NOTE | 2018-03-26 17:56 | CP.PCM.PN ---
Subjective - Date & Time of Evaluation Date of Evaluation: 03/26/18 Time of Evaluation: 10:00 - Subjective Subjective: Podiatry Progress Note- Dr. Laguna 57 year old male seen at bedside for chronic, recurrent wounds to the left lower extremity. Pt is clinically same. Reports minor amount, resolved, overnight sanginous drainage from left leg, proximal to termination of dressing. Denies any acute overnight events or any new pedal complaints at this time. States that pain is well controlled. Denies any recent N/V/F/C/CP/SOB /D/. Objective - Vital Signs/Intake and Output Vital Signs (last 24 hours): Temp Pulse Resp BP Pulse Ox 97.3 F L 69 20 132/70 96 03/26/18 15:00 03/26/18 15:00 03/26/18 15:00 03/26/18 17:25 03/26/18 15:00 Intake and Output: 03/26/18 03/26/18 06:59 18:59 Intake Total 400 Output Total 700 Balance -300 - Medications Medications: Current Medications Acetaminophen (Tylenol 325mg Tab) 650 mg PO Q6 PRN PRN Reason: Headache Docusate Sodium (Colace) 100 mg PO DAILY [facility] Last Admin: 03/26/18 11:00 Dose: Not Given Furosemide (Lasix) 40 mg PO BID [facility] Last Admin: 03/26/18 17:25 Dose: 40 mg Hydralazine HCl (Apresoline) 25 mg PO Q8 [facility] Last Admin: 03/26/18 13:52 Dose: 25 mg Meropenem 1 gm/ Sodium (Chloride) 100 mls @ 100 mls/hr IVPB Q8 [facility] PRN Reason: Protocol Last Admin: 03/26/18 14:55 Dose: 100 mls/hr Vancomycin/Sodium Chloride (Vancomycin 1 Gm/Ns 200 Ml) 1 gm in 200 mls @ 166.7 mls/hr IVPB Q12H [facility] PRN Reason: Protocol Stop: 03/31/18 15:31 Last Admin: 03/26/18 16:33 Dose: 166.7 mls/hr Insulin Human Regular (Novolin R) 0 unit SC ACHS [facility] PRN Reason: Protocol Last Admin: 03/26/18 17:25 Dose: Not Given Iron (Ferocon) 1 cap PO DAILY [facility] Last Admin: 03/26/18 11:00 Dose: 1 cap Levothyroxine Sodium (Synthroid) 75 mcg PO DAILY@0630 [facility] Last Admin: 03/26/18 06:10 Dose: 75 mcg Metformin HCl (Glucophage Xr) 500 mg PO BID [facility] Last Admin: 03/26/18 17:23 Dose: 500 mg Multivitamins/Minerals (Therapeutic-M Tab) 1 tab PO DAILY [facility] Last Admin: 03/26/18 11:00 Dose: 1 tab Mupirocin (Bactroban Ointment) 1 gm TOP BID [facility] Last Admin: 03/26/18 17:24 Dose: 1 applic Nystatin (Nystop Topical Powder) 1 applic TOP BID [facility] Last Admin: 03/26/18 17:26 Dose: 1 applic Oxycodone HCl (Oxycontin Extended Release Tab) 80 mg PO Q6 [facility] Last Admin: 03/26/18 17:22 Dose: 80 mg Oxycodone/Acetaminophen (Percocet 5/325 Mg Tab) 2 tab PO Q4H PRN PRN Reason: Pain, moderate (4-7) Stop: 03/26/18 21:55 Last Admin: 03/26/18 14:53 Dose: 2 tab Fluticasone/Salmeterol (Advair Diskus 250/50) 1 puff IH RQ12 [facility] Last Admin: 03/26/18 07:11 Dose: 1 puff Sitagliptin Phosphate (Januvia) 50 mg PO DAILY [facility] Last Admin: 03/26/18 11:00 Dose: 50 mg - Labs Labs: 03/26/18 08:02 03/26/18 08:02 PT 20.4 SECONDS (9.7-12.2) H 03/25/18 08:25 INR 1.8 03/25/18 08:25 APTT 29 SECONDS (21-34) 03/14/18 10:23 - Constitutional Appears: Well, Non-toxic, No Acute Distress - Extremities Exam Additional comments: Lower extremity focused exam: No strikethrough noted to outer layer of dressings bilaterally. Vasc: Non-palpable pedal pulses due to edema b/l, TG warm to warm, CFT < 3 sec to all digits, +1 pitting edema Derm: +1 pitting edema to legs bilaterally. Localized mild non-streaking, blanchable periwound erythema to mid-calf level bilateral. Left: Multiple continuos open ulcerations extending from tibial tuberosity to medial malleolus noted to the to Anterior leg and posterior ulceration undergoing early stage re-epithelialization. Minor active sero-sanguinous drainage, wound base is 100% granular. No shital-wound macerations. No purulence noted, moderate malodor noted. Right: Open superficial ulceration noted to the medial aspect of leg at mid- calf level approximately 3.9 x 3.1 cm. Ulceration margins undergoing early stage re-epithelialization With no active sero-sanguinous drainage, wound base is 100% granular with no shital-wound macerations. No purulence noted, moderate malodor noted. Neuro: sensation grossly diminished MUSC: pain on palpation of posterior and medial legs b/l - Neurological Exam Neurological Exam: Alert, Awake, Oriented x3 - Psychiatric Exam Psychiatric exam: Normal Affect, Normal Mood Assessment and Plan - Assessment and Plan (Free Text) Assessment: 57 year old male with bilateral chronic, recurrent wounds to the left lower extremity, improving Plan: Patient seen and evaluated. Discussed with attending Dr. Laguna. Charts, labs, vitals reviewed Continue IV abx per ID Continue medical management per Medicine Team Continue IV abd per ID. Day 8/14 complete. -Wound cx: MRSA, E coli, E Cloacae Ssp Bilateral leg wounds dressed with Bactroban, Telfa, ABD, DSD No plan for surgical management at this time Patient to follow up with Dr. Laguna upon discharge Podiatry will continue to follow while patient in house
[2018-03-26 20:21] LABS: INR 1.6; PROTHROMBIN TIME 18.9 SECONDS (9.7-12.2)
[2018-03-27] MEDS: Oxycodone/Acetaminophen 5/325 mg Tab PO PRN ×5 (04:05→22:31)
[2018-03-27] MEDS: Vancomycin 1 gm/NS 200 ml 1 GM/200 ML BAG IVPB SCH ×2 (04:26→15:29)
[2018-03-27] MEDS: oxyCODONE 80 mg ER Tab (oxyCONTIN) PO SCH ×3 (05:37→17:42)
[2018-03-27] MEDS: Levothyroxine 75 MCG TAB PO SCH (05:37)
[2018-03-27] MEDS: Meropenem 1 GM in Sodium Chloride 0.9% 100 ML IVPB SCH ×3 (05:37→22:31)
[2018-03-27 06:23] LABS: BASO # 0.1 K/uL (0.0-0.2); EOS # 0.3 K/uL (0.0-0.7); EOS % 4.5 % (0.0-4.0); LYMPH # 1.9 K/uL (1.0-4.3); LYMPH % 27.7 % (20.0-40.0); MEAN CORPUSCULAR HEMOGLOBIN 25.7 pg (27.0-31.0); MEAN PLATELET VOLUME 10.7 fL (7.2-11.7); MONO # 0.6 K/uL (0.0-0.8); MONO % 8.8 % (0.0-10.0); NEUT # 3.9 K/uL (1.8-7.0); RBC 4.28 Mil/uL (4.40-5.90); RED CELL DISTRIBUTION WIDTH 19.4 % (11.5-14.5); WHITE BLOOD COUNT 6.7 K/uL (4.8-10.8)
[2018-03-27 07:42] LABS: ALB/GLOB RATIO 0.8 (1.0-2.1); ALBUMIN 3.6 g/dL (3.5-5.0); ALT/SGPT 18 U/L (21-72); AST/SGOT 28 U/L (17-59); BLOOD UREA NITROGEN 32 mg/dL (9-20); CALCIUM 9.1 mg/dl (8.6-10.4); GFR AFRICAN-AMERICAN > 60; GFR NON-AFRICAN AMERICAN > 60
[2018-03-27] MEDS: (Novolin R) Insulin Human Regular 100 units/ml vial SC SCH ×4 (07:51→22:10)
[2018-03-27] MEDS: Fluticasone-Salmeterol 250-50mcg Diskus IH SCH ×2 (08:38→19:07)
--- NOTE | 2018-03-27 09:03 | CP.PCM.PN ---
Subjective - Date & Time of Evaluation Date of Evaluation: 03/26/18 Time of Evaluation: 19:00 - Subjective Subjective: Pt is having pain in left wrist, cellulitis, purulent discharge from left leg, on antibiotics and medical management Objective - Vital Signs/Intake and Output Vital Signs (last 24 hours): Temp Pulse Resp BP Pulse Ox 98.2 F 75 18 114/66 97 03/27/18 07:30 03/27/18 07:30 03/27/18 07:30 03/27/18 07:30 03/27/18 07:30 Intake and Output: 03/27/18 03/27/18 06:59 18:59 Intake Total 1020 Output Total 1200 Balance -180 - Medications Medications: Current Medications Acetaminophen (Tylenol 325mg Tab) 650 mg PO Q6 PRN PRN Reason: Headache Docusate Sodium (Colace) 100 mg PO DAILY [facility] Last Admin: 03/26/18 11:00 Dose: Not Given Furosemide (Lasix) 40 mg PO BID [facility] Last Admin: 03/26/18 17:25 Dose: 40 mg Hydralazine HCl (Apresoline) 25 mg PO Q8 [facility] Last Admin: 03/27/18 05:37 Dose: 25 mg Meropenem 1 gm/ Sodium (Chloride) 100 mls @ 100 mls/hr IVPB Q8 [facility] PRN Reason: Protocol Last Admin: 03/27/18 05:37 Dose: 100 mls/hr Vancomycin/Sodium Chloride (Vancomycin 1 Gm/Ns 200 Ml) 1 gm in 200 mls @ 166.7 mls/hr IVPB Q12H [facility] PRN Reason: Protocol Stop: 03/31/18 15:31 Last Admin: 03/27/18 04:26 Dose: 166.7 mls/hr Insulin Human Regular (Novolin R) 0 unit SC ACHS [facility] PRN Reason: Protocol Last Admin: 03/27/18 07:51 Dose: Not Given Iron (Ferocon) 1 cap PO DAILY [facility] Last Admin: 03/26/18 11:00 Dose: 1 cap Levothyroxine Sodium (Synthroid) 75 mcg PO DAILY@0630 [facility] Last Admin: 03/27/18 05:37 Dose: 75 mcg Metformin HCl (Glucophage Xr) 500 mg PO BID [facility] Last Admin: 03/26/18 17:23 Dose: 500 mg Multivitamins/Minerals (Therapeutic-M Tab) 1 tab PO DAILY [facility] Last Admin: 03/26/18 11:00 Dose: 1 tab Mupirocin (Bactroban Ointment) 1 gm TOP BID [facility] Last Admin: 03/26/18 17:24 Dose: 1 applic Nystatin (Nystop Topical Powder) 1 applic TOP BID [facility] Last Admin: 03/26/18 17:26 Dose: 1 applic Oxycodone HCl (Oxycontin Extended Release Tab) 80 mg PO Q6 [facility] Last Admin: 03/27/18 05:37 Dose: 80 mg Oxycodone/Acetaminophen (Percocet 5/325 Mg Tab) 2 tab PO Q4H PRN PRN Reason: Pain, moderate (4-7) Stop: 03/29/18 23:29 Last Admin: 03/27/18 04:05 Dose: 2 tab Fluticasone/Salmeterol (Advair Diskus 250/50) 1 puff IH RQ12 [facility] Last Admin: 03/27/18 08:38 Dose: 1 puff Sitagliptin Phosphate (Januvia) 50 mg PO DAILY [facility] Last Admin: 03/26/18 11:00 Dose: 50 mg - Labs Labs: 03/27/18 06:16 03/27/18 06:16 PT 18.9 SECONDS (9.7-12.2) H 03/26/18 19:54 INR 1.6 03/26/18 19:54 APTT 29 SECONDS (21-34) 03/14/18 10:23 - Constitutional Appears: No Acute Distress - Head Exam Head Exam: ATRAUMATIC, NORMAL INSPECTION, NORMOCEPHALIC - Eye Exam Eye Exam: EOMI, Normal appearance, PERRL Pupil Exam: NORMAL ACCOMODATION, PERRL - Neck Exam Additional comments: Pt is seen and examined, having pain in left wrist, purulent discharge, fracture left wtrist - Respiratory Exam Respiratory Exam: Clear to Ausculation Bilateral, NORMAL BREATHING PATTERN - Cardiovascular Exam Cardiovascular Exam: REGULAR RHYTHM, +S1, +S2. absent: Murmur Assessment and Plan (1) Fall Status: Acute (2) HTN (hypertension) Status: Acute (3) Diabetes Status: Acute (4) Cellulitis Status: Acute (5) Wrist fracture Status: Acute (6) Leg ulcer, left Status: Chronic
[2018-03-27] MEDS: Ferrous Fum/Folic Acid/IF/VI 1 Cap PO SCH (09:07)
[2018-03-27] MEDS: Multivitamin With Minerals Tab PO SCH (09:09)
--- NOTE | 2018-03-27 09:45 | CP.PCM.PN ---
Subjective - Date & Time of Evaluation Date of Evaluation: 03/27/18 - Subjective Subjective: Pt seen and evalauted today Objective - Vital Signs/Intake and Output Vital Signs (last 24 hours): Temp Pulse Resp BP Pulse Ox 98.2 F 75 18 114/66 97 03/27/18 07:30 03/27/18 07:30 03/27/18 07:30 03/27/18 09:08 03/27/18 07:30 Intake and Output: 03/27/18 03/27/18 06:59 18:59 Intake Total 1020 Output Total 1200 Balance -180 - Medications Medications: Current Medications Acetaminophen (Tylenol 325mg Tab) 650 mg PO Q6 PRN PRN Reason: Headache Docusate Sodium (Colace) 100 mg PO DAILY [facility] Last Admin: 03/27/18 09:07 Dose: Not Given Furosemide (Lasix) 40 mg PO BID [facility] Last Admin: 03/27/18 09:08 Dose: 40 mg Hydralazine HCl (Apresoline) 25 mg PO Q8 [facility] Last Admin: 03/27/18 05:37 Dose: 25 mg Meropenem 1 gm/ Sodium (Chloride) 100 mls @ 100 mls/hr IVPB Q8 [facility] PRN Reason: Protocol Last Admin: 03/27/18 05:37 Dose: 100 mls/hr Vancomycin/Sodium Chloride (Vancomycin 1 Gm/Ns 200 Ml) 1 gm in 200 mls @ 166.7 mls/hr IVPB Q12H [facility] PRN Reason: Protocol Stop: 03/31/18 15:31 Last Admin: 03/27/18 04:26 Dose: 166.7 mls/hr Insulin Human Regular (Novolin R) 0 unit SC ACHS [facility] PRN Reason: Protocol Last Admin: 03/27/18 07:51 Dose: Not Given Iron (Ferocon) 1 cap PO DAILY [facility] Last Admin: 03/27/18 09:07 Dose: 1 cap Levothyroxine Sodium (Synthroid) 75 mcg PO DAILY@0630 [facility] Last Admin: 03/27/18 05:37 Dose: 75 mcg Metformin HCl (Glucophage Xr) 500 mg PO BID [facility] Last Admin: 03/27/18 09:07 Dose: 500 mg Multivitamins/Minerals (Therapeutic-M Tab) 1 tab PO DAILY [facility] Last Admin: 03/27/18 09:09 Dose: 1 tab Mupirocin (Bactroban Ointment) 1 gm TOP BID [facility] Last Admin: 03/27/18 09:09 Dose: 1 applic Nystatin (Nystop Topical Powder) 1 applic TOP BID [facility] Last Admin: 03/27/18 09:10 Dose: 1 applic Oxycodone HCl (Oxycontin Extended Release Tab) 80 mg PO Q6 [facility] Last Admin: 03/27/18 05:37 Dose: 80 mg Oxycodone/Acetaminophen (Percocet 5/325 Mg Tab) 2 tab PO Q4H PRN PRN Reason: Pain, moderate (4-7) Stop: 03/29/18 23:29 Last Admin: 03/27/18 09:08 Dose: 2 tab Fluticasone/Salmeterol (Advair Diskus 250/50) 1 puff IH RQ12 [facility] Last Admin: 03/27/18 08:38 Dose: 1 puff Sitagliptin Phosphate (Januvia) 50 mg PO DAILY [facility] Last Admin: 03/27/18 09:08 Dose: 50 mg - Labs Labs: 03/27/18 06:16 03/27/18 06:16 PT 18.9 SECONDS (9.7-12.2) H 03/26/18 19:54 INR 1.6 03/26/18 19:54 APTT 29 SECONDS (21-34) 03/14/18 10:23 Assessment and Plan (1) Fall Status: Acute (2) HTN (hypertension) Status: Acute (3) Diabetes Status: Acute (4) Cellulitis Status: Acute (5) Wrist fracture Status: Acute (6) Leg ulcer, left Status: Chronic
--- NOTE | 2018-03-27 12:20 | CP.PCM.PN ---
Subjective - Date & Time of Evaluation Date of Evaluation: 03/27/18 Time of Evaluation: 12:20 - Subjective Subjective: 57 year old male seen at bedside with attending Dr. Laguna for chronic, recurrent wounds to bilateral lower extremities, left worse than right. Pt is clinically same.Denies any acute overnight events or any new pedal complaints at this time. States that pain is well controlled. Denies any recent F/C/N/V/CP/ SOB. Objective - Vital Signs/Intake and Output Vital Signs (last 24 hours): Temp Pulse Resp BP Pulse Ox 98.2 F 75 18 114/66 97 03/27/18 07:30 03/27/18 07:30 03/27/18 07:30 03/27/18 09:08 03/27/18 07:30 Intake and Output: 03/27/18 03/27/18 06:59 18:59 Intake Total 1020 Output Total 1200 400 Balance -180 -400 - Medications Medications: Current Medications Acetaminophen (Tylenol 325mg Tab) 650 mg PO Q6 PRN PRN Reason: Headache Docusate Sodium (Colace) 100 mg PO DAILY [facility] Last Admin: 03/27/18 09:07 Dose: Not Given Furosemide (Lasix) 40 mg PO BID [facility] Last Admin: 03/27/18 09:08 Dose: 40 mg Hydralazine HCl (Apresoline) 25 mg PO Q8 [facility] Last Admin: 03/27/18 05:37 Dose: 25 mg Meropenem 1 gm/ Sodium (Chloride) 100 mls @ 100 mls/hr IVPB Q8 [facility] PRN Reason: Protocol Last Admin: 03/27/18 05:37 Dose: 100 mls/hr Vancomycin/Sodium Chloride (Vancomycin 1 Gm/Ns 200 Ml) 1 gm in 200 mls @ 166.7 mls/hr IVPB Q12H [facility] PRN Reason: Protocol Stop: 03/31/18 15:31 Last Admin: 03/27/18 04:26 Dose: 166.7 mls/hr Insulin Human Regular (Novolin R) 0 unit SC ACHS [facility] PRN Reason: Protocol Last Admin: 03/27/18 11:43 Dose: 1 unit Iron (Ferocon) 1 cap PO DAILY [facility] Last Admin: 03/27/18 09:07 Dose: 1 cap Levothyroxine Sodium (Synthroid) 75 mcg PO DAILY@0630 [facility] Last Admin: 03/27/18 05:37 Dose: 75 mcg Metformin HCl (Glucophage Xr) 500 mg PO BID [facility] Last Admin: 03/27/18 09:07 Dose: 500 mg Multivitamins/Minerals (Therapeutic-M Tab) 1 tab PO DAILY [facility] Last Admin: 03/27/18 09:09 Dose: 1 tab Mupirocin (Bactroban Ointment) 1 gm TOP BID [facility] Last Admin: 03/27/18 09:09 Dose: 1 applic Nystatin (Nystop Topical Powder) 1 applic TOP BID [facility] Last Admin: 03/27/18 09:10 Dose: 1 applic Oxycodone HCl (Oxycontin Extended Release Tab) 80 mg PO Q6 [facility] Last Admin: 03/27/18 11:42 Dose: 80 mg Oxycodone/Acetaminophen (Percocet 5/325 Mg Tab) 2 tab PO Q4H PRN PRN Reason: Pain, moderate (4-7) Stop: 03/29/18 23:29 Last Admin: 03/27/18 09:08 Dose: 2 tab Fluticasone/Salmeterol (Advair Diskus 250/50) 1 puff IH RQ12 [facility] Last Admin: 03/27/18 08:38 Dose: 1 puff Sitagliptin Phosphate (Januvia) 50 mg PO DAILY [facility] Last Admin: 03/27/18 09:08 Dose: 50 mg - Labs Labs: 03/27/18 06:16 03/27/18 06:16 PT 18.9 SECONDS (9.7-12.2) H 03/26/18 19:54 INR 1.6 03/26/18 19:54 APTT 29 SECONDS (21-34) 03/14/18 10:23 - Constitutional Appears: Well, Non-toxic, No Acute Distress - Extremities Exam Additional comments: Lower extremity focused exam: No strikethrough noted to outer layer of dressings bilaterally. Vasc: Non-palpable pedal pulses due to edema B/L, TG warm to warm, CFT < 3 sec to all digits, +1 pitting edema to bilateral lower extremities distal to tibial tuberosity Derm: Localized mild non-streaking, blanchable periwound erythema to mid-calf level B/L. Left: Multiple continuos open ulcerations extending from tibial tuberosity to medial malleolus noted to the mid leg circumferentially and posterior ulceration undergoing early stage re-epithelialization. Minor active sero- sanguinous drainage, wound base is 100% granular. No shital-wound macerations. No purulence noted, moderate malodor noted. Right: Open superficial ulceration noted to the medial aspect of leg at mid- calf level approximately 3.9 x 3.1 cm. Ulceration margins undergoing early stage re-epithelialization with no active sero-sanguinous drainage, wound base is 100% granular with no shital-wound macerations. No purulence noted, moderate malodor noted. Neuro: protective sensation mildly diminished MUSC: pain on palpation of posterior and medial legs B/L, left > right - Neurological Exam Neurological Exam: Alert, Awake, Oriented x3 - Psychiatric Exam Psychiatric exam: Normal Affect, Normal Mood Assessment and Plan - Assessment and Plan (Free Text) Assessment: 57 year old male with bilateral chronic, recurrent wounds to the left lower extremity, improving Plan: Patient seen and evaluated with attending Dr. Laguna Charts, labs, vitals reviewed - afebrile, WBC 6.7 Continue IV abx per ID Continue medical management per Medicine Team Continue IV abd per ID. Day 814 complete. -Wound cx: MRSA, E coli, E Cloacae Ssp Bilateral leg wounds cleaned with saline and dressed with Bactroban, Telfa, ABD , DSD No plan for surgical management at this time Patient to follow up with Dr. Laguna upon discharge Podiatry will continue to follow while patient in house
[2018-03-27 14:02] LABS: INR 1.7
[2018-03-28] MEDS: oxyCODONE 80 mg ER Tab (oxyCONTIN) PO SCH ×5 (00:16→23:56)
[2018-03-28] MEDS: Oxycodone/Acetaminophen 5/325 mg Tab PO PRN ×5 (03:36→22:09)
[2018-03-28 04:03] LABS: INR 1.7; PROTHROMBIN TIME 19.3 SECONDS (9.7-12.2)
[2018-03-28] MEDS: Vancomycin 1 gm/NS 200 ml 1 GM/200 ML BAG IVPB SCH ×2 (04:24→14:39)
[2018-03-28] MEDS: Levothyroxine 75 MCG TAB PO SCH (05:33)
[2018-03-28] MEDS: Meropenem 1 GM in Sodium Chloride 0.9% 100 ML IVPB SCH ×3 (05:33→22:14)
[2018-03-28] MEDS: (Novolin R) Insulin Human Regular 100 units/ml vial SC SCH ×4 (08:02→21:41)
[2018-03-28] MEDS: Fluticasone-Salmeterol 250-50mcg Diskus IH SCH ×2 (09:37→20:12)
[2018-03-28] MEDS: Multivitamin With Minerals Tab PO SCH (09:40)
[2018-03-28] MEDS: Ferrous Fum/Folic Acid/IF/VI 1 Cap PO SCH (09:40)
--- NOTE | 2018-03-28 14:30 | CP.PCM.PN ---
Subjective - Date & Time of Evaluation Date of Evaluation: 03/28/18 Time of Evaluation: 09:00 - Subjective Subjective: afeb on IV Vanco Mererem MDRO's from leg wound wound care in progress Objective - Vital Signs/Intake and Output Vital Signs (last 24 hours): Temp Pulse Resp BP Pulse Ox 98.0 F 69 20 122/81 100 03/28/18 07:00 03/28/18 07:00 03/28/18 07:00 03/28/18 13:32 03/28/18 07:00 Intake and Output: 03/28/18 03/28/18 06:59 18:59 Intake Total 1270 600 Output Total 650 Balance 620 600 - Medications Medications: Current Medications Acetaminophen (Tylenol 325mg Tab) 650 mg PO Q6 PRN PRN Reason: Headache Docusate Sodium (Colace) 100 mg PO DAILY [facility] Last Admin: 03/28/18 10:57 Dose: Not Given Furosemide (Lasix) 40 mg PO BID [facility] Last Admin: 03/28/18 09:40 Dose: 40 mg Hydralazine HCl (Apresoline) 25 mg PO Q8 [facility] Last Admin: 03/28/18 13:29 Dose: 25 mg Meropenem 1 gm/ Sodium (Chloride) 100 mls @ 100 mls/hr IVPB Q8 [facility] PRN Reason: Protocol Last Admin: 03/28/18 13:28 Dose: 100 mls/hr Vancomycin/Sodium Chloride (Vancomycin 1 Gm/Ns 200 Ml) 1 gm in 200 mls @ 166.7 mls/hr IVPB Q12H [facility] PRN Reason: Protocol Stop: 03/31/18 15:31 Last Admin: 03/28/18 04:24 Dose: Not Given Insulin Human Regular (Novolin R) 0 unit SC ACHS [facility] PRN Reason: Protocol Last Admin: 03/28/18 11:56 Dose: Not Given Iron (Ferocon) 1 cap PO DAILY [facility] Last Admin: 03/28/18 09:40 Dose: 1 cap Levothyroxine Sodium (Synthroid) 75 mcg PO DAILY@0630 [facility] Last Admin: 03/28/18 05:33 Dose: 75 mcg Metformin HCl (Glucophage Xr) 500 mg PO BID [facility] Last Admin: 03/28/18 09:40 Dose: 500 mg Multivitamins/Minerals (Therapeutic-M Tab) 1 tab PO DAILY [facility] Last Admin: 03/28/18 09:40 Dose: 1 tab Mupirocin (Bactroban Ointment) 1 gm TOP BID [facility] Last Admin: 03/28/18 09:44 Dose: Not Given Nystatin (Nystop Topical Powder) 1 applic TOP BID [facility] Last Admin: 03/28/18 09:42 Dose: 1 applic Oxycodone HCl (Oxycontin Extended Release Tab) 80 mg PO Q6 [facility] Last Admin: 03/28/18 11:54 Dose: 80 mg Oxycodone/Acetaminophen (Percocet 5/325 Mg Tab) 2 tab PO Q4H PRN PRN Reason: Pain, moderate (4-7) Stop: 03/29/18 23:29 Last Admin: 03/28/18 13:50 Dose: 2 tab Fluticasone/Salmeterol (Advair Diskus 250/50) 1 puff IH RQ12 [facility] Last Admin: 03/28/18 09:37 Dose: 1 puff Sitagliptin Phosphate (Januvia) 50 mg PO DAILY [facility] Last Admin: 03/28/18 09:41 Dose: 50 mg Warfarin Sodium (Coumadin) 10 mg PO 1800 [facility] Stop: 03/28/18 18:01 Warfarin Sodium (Coumadin) 1 mg PO 1800 [facility] Stop: 03/28/18 18:01 - Labs Labs: 03/27/18 06:16 03/27/18 06:16 PT 19.3 SECONDS (9.7-12.2) H 03/28/18 03:53 INR 1.7 03/28/18 03:53 APTT 29 SECONDS (21-34) 03/14/18 10:23 - Constitutional Appears: Non-toxic, Chronically Ill - Head Exam Head Exam: NORMOCEPHALIC - Eye Exam Eye Exam: PERRL - ENT Exam ENT Exam: Mucous Membranes Dry - Neck Exam Neck Exam: absent: Lymphadenopathy - Respiratory Exam Respiratory Exam: Decreased Breath Sounds - Cardiovascular Exam Cardiovascular Exam: REGULAR RHYTHM - GI/Abdominal Exam GI & Abdominal Exam: Distended - Rectal Exam Rectal Exam: Deferred Assessment and Plan (1) Cellulitis Status: Acute (2) Closed fracture of left distal radius Status: Acute (3) Diabetes Status: Acute (4) Fall Status: Acute (5) HTN (hypertension) Status: Acute (6) Wrist fracture Status: Acute (7) Leg ulcer, left Status: Chronic
--- NOTE | 2018-03-29 00:48 | CP.PCM.PN ---
Subjective - Date & Time of Evaluation Date of Evaluation: 03/28/18 Time of Evaluation: 19:00 - Subjective Subjective: Pt seen and examined Objective - Vital Signs/Intake and Output Vital Signs (last 24 hours): Temp Pulse Resp BP Pulse Ox 97.7 F 83 20 119/81 96 03/28/18 23:20 03/28/18 23:20 03/28/18 23:20 03/28/18 23:20 03/28/18 23:20 Intake and Output: 03/28/18 03/29/18 18:59 06:59 Intake Total 600 Output Total 800 1200 Balance -200 -1200 - Medications Medications: Current Medications Acetaminophen (Tylenol 325mg Tab) 650 mg PO Q6 PRN PRN Reason: Headache Docusate Sodium (Colace) 100 mg PO DAILY [facility] Last Admin: 03/28/18 10:57 Dose: Not Given Furosemide (Lasix) 40 mg PO BID [facility] Last Admin: 03/28/18 17:57 Dose: 40 mg Hydralazine HCl (Apresoline) 25 mg PO Q8 [facility] Last Admin: 03/28/18 22:09 Dose: 25 mg Meropenem 1 gm/ Sodium (Chloride) 100 mls @ 100 mls/hr IVPB Q8 [facility] PRN Reason: Protocol Last Admin: 03/28/18 22:14 Dose: 100 mls/hr Vancomycin/Sodium Chloride (Vancomycin 1 Gm/Ns 200 Ml) 1 gm in 200 mls @ 166.7 mls/hr IVPB Q12H [facility] PRN Reason: Protocol Stop: 03/31/18 15:31 Last Admin: 03/28/18 14:39 Dose: 166.7 mls/hr Insulin Human Regular (Novolin R) 0 unit SC ACHS [facility] PRN Reason: Protocol Last Admin: 03/28/18 21:41 Dose: Not Given Iron (Ferocon) 1 cap PO DAILY [facility] Last Admin: 03/28/18 09:40 Dose: 1 cap Levothyroxine Sodium (Synthroid) 75 mcg PO DAILY@0630 [facility] Last Admin: 03/28/18 05:33 Dose: 75 mcg Metformin HCl (Glucophage Xr) 500 mg PO BID [facility] Last Admin: 03/28/18 17:57 Dose: 500 mg Multivitamins/Minerals (Therapeutic-M Tab) 1 tab PO DAILY [facility] Last Admin: 03/28/18 09:40 Dose: 1 tab Mupirocin (Bactroban Ointment) 1 gm TOP BID [facility] Last Admin: 03/28/18 18:04 Dose: 1 applic Nystatin (Nystop Topical Powder) 1 applic TOP BID [facility] Last Admin: 03/28/18 18:03 Dose: 1 applic Oxycodone HCl (Oxycontin Extended Release Tab) 80 mg PO Q6 [facility] Last Admin: 03/28/18 23:56 Dose: 80 mg Oxycodone/Acetaminophen (Percocet 5/325 Mg Tab) 2 tab PO Q4H PRN PRN Reason: Pain, moderate (4-7) Stop: 03/29/18 23:29 Last Admin: 03/28/18 22:09 Dose: 2 tab Fluticasone/Salmeterol (Advair Diskus 250/50) 1 puff IH RQ12 [facility] Last Admin: 03/28/18 20:12 Dose: 1 puff Sitagliptin Phosphate (Januvia) 50 mg PO DAILY [facility] Last Admin: 03/28/18 09:41 Dose: 50 mg - Labs Labs: 03/27/18 06:16 03/27/18 06:16 PT 19.3 SECONDS (9.7-12.2) H 03/28/18 03:53 INR 1.7 03/28/18 03:53 APTT 29 SECONDS (21-34) 03/14/18 10:23 Assessment and Plan (1) Fall Status: Acute (2) HTN (hypertension) Status: Acute (3) Diabetes Status: Acute (4) Cellulitis Status: Acute (5) Wrist fracture Status: Acute (6) Leg ulcer, left Status: Chronic
[2018-03-29] MEDS: Oxycodone/Acetaminophen 5/325 mg Tab PO PRN ×6 (02:24→23:38)
[2018-03-29] MEDS: Vancomycin 1 gm/NS 200 ml 1 GM/200 ML BAG IVPB SCH ×2 (02:31→14:41)
[2018-03-29] MEDS: Meropenem 1 GM in Sodium Chloride 0.9% 100 ML IVPB SCH ×3 (06:16→21:11)
[2018-03-29] MEDS: Levothyroxine 75 MCG TAB PO SCH (06:16)
[2018-03-29] MEDS: oxyCODONE 80 mg ER Tab (oxyCONTIN) PO SCH ×4 (06:16→23:31)
[2018-03-29] MEDS: (Novolin R) Insulin Human Regular 100 units/ml vial SC SCH ×4 (07:38→21:29)
[2018-03-29] MEDS: Fluticasone-Salmeterol 250-50mcg Diskus IH SCH ×2 (09:00→22:01)
[2018-03-29] MEDS: Multivitamin With Minerals Tab PO SCH (09:02)
[2018-03-29] MEDS: Ferrous Fum/Folic Acid/IF/VI 1 Cap PO SCH (09:02)
--- NOTE | 2018-03-29 10:29 | CP.PCM.PN ---
<Taniya Sun - Last Filed: 03/29/18 14:10> Subjective - Date & Time of Evaluation Date of Evaluation: 03/29/18 Time of Evaluation: 10:27 - Subjective Subjective: Podiatry Progress note for Dr. Laguna 57 year old male seen at bedside with attending Dr. Laguna for chronic, recurrent wounds to bilateral lower extremities, left worse than right. Pt is clinically same. Denies any acute overnight events or any new pedal complaints at this time. States that pain is well controlled. Denies any recent F/C/N/V/CP/ SOB. Objective - Vital Signs/Intake and Output Vital Signs (last 24 hours): Temp Pulse Resp BP Pulse Ox 98.1 F 82 20 124/69 98 03/29/18 08:05 03/29/18 08:05 03/29/18 08:05 03/29/18 09:02 03/29/18 08:05 Intake and Output: 03/29/18 03/29/18 06:59 18:59 Intake Total 500 Output Total 1200 Balance -700 - Medications Medications: Current Medications Acetaminophen (Tylenol 325mg Tab) 650 mg PO Q6 PRN PRN Reason: Headache Docusate Sodium (Colace) 100 mg PO DAILY [facility] Last Admin: 03/29/18 09:02 Dose: Not Given Furosemide (Lasix) 40 mg PO BID [facility] Last Admin: 03/29/18 09:02 Dose: 40 mg Hydralazine HCl (Apresoline) 25 mg PO Q8 [facility] Last Admin: 03/29/18 06:17 Dose: 25 mg Meropenem 1 gm/ Sodium (Chloride) 100 mls @ 100 mls/hr IVPB Q8 [facility] PRN Reason: Protocol Last Admin: 03/29/18 06:16 Dose: 100 mls/hr Vancomycin/Sodium Chloride (Vancomycin 1 Gm/Ns 200 Ml) 1 gm in 200 mls @ 166.7 mls/hr IVPB Q12H [facility] PRN Reason: Protocol Stop: 03/31/18 15:31 Last Admin: 03/29/18 02:31 Dose: 166.7 mls/hr Insulin Human Regular (Novolin R) 0 unit SC ACHS [facility] PRN Reason: Protocol Last Admin: 03/29/18 07:38 Dose: Not Given Iron (Ferocon) 1 cap PO DAILY [facility] Last Admin: 03/29/18 09:02 Dose: 1 cap Levothyroxine Sodium (Synthroid) 75 mcg PO DAILY@0630 [facility] Last Admin: 03/29/18 06:16 Dose: 75 mcg Metformin HCl (Glucophage Xr) 500 mg PO BID [facility] Last Admin: 03/29/18 09:01 Dose: 500 mg Multivitamins/Minerals (Therapeutic-M Tab) 1 tab PO DAILY [facility] Last Admin: 03/29/18 09:02 Dose: 1 tab Mupirocin (Bactroban Ointment) 1 gm TOP BID [facility] Last Admin: 03/29/18 09:04 Dose: 1 applic Nystatin (Nystop Topical Powder) 1 applic TOP BID [facility] Last Admin: 03/29/18 09:03 Dose: 1 applic Oxycodone HCl (Oxycontin Extended Release Tab) 80 mg PO Q6 [facility] Last Admin: 03/29/18 06:16 Dose: 80 mg Oxycodone/Acetaminophen (Percocet 5/325 Mg Tab) 2 tab PO Q4H PRN PRN Reason: Pain, moderate (4-7) Stop: 03/29/18 23:29 Last Admin: 03/29/18 06:46 Dose: 2 tab Fluticasone/Salmeterol (Advair Diskus 250/50) 1 puff IH RQ12 [facility] Last Admin: 03/29/18 09:00 Dose: 1 puff Sitagliptin Phosphate (Januvia) 50 mg PO DAILY [facility] Last Admin: 03/29/18 09:02 Dose: 50 mg - Labs Labs: 03/27/18 06:16 03/27/18 06:16 PT 19.3 SECONDS (9.7-12.2) H 03/28/18 03:53 INR 1.7 03/28/18 03:53 APTT 29 SECONDS (21-34) 03/14/18 10:23 - Constitutional Appears: Non-toxic, No Acute Distress - Extremities Exam Additional comments: Lower extremity focused exam: No strikethrough noted to outer layer of dressings bilaterally. Vasc: Non-palpable pedal pulses due to edema B/L, TG warm to warm, CFT < 3 sec to all digits, +1 pitting edema to bilateral lower extremities distal to tibial tuberosity Derm: Localized mild non-streaking, blanchable periwound erythema to mid-calf level B/L. Left: Multiple continuos open ulcerations extending from tibial tuberosity to medial malleolus noted to the mid leg circumferentially and posterior ulceration undergoing early stage re-epithelialization. Minor active sero- sanguinous drainage, wound base is 100% granular. No shital-wound macerations. No purulence noted, moderate malodor noted. Right: Open superficial ulceration noted to the medial aspect of leg at mid- calf level approximately 3.9 x 3.1 cm. Ulceration margins undergoing early stage re-epithelialization with no active sero-sanguinous drainage, wound base is 100% granular with no shital-wound macerations. No purulence noted, moderate malodor noted. Neuro: protective sensation mildly diminished MUSC: pain on palpation of posterior and medial legs B/L, left > right - Neurological Exam Neurological Exam: Alert, Awake, Oriented x3 - Psychiatric Exam Psychiatric exam: Normal Affect, Normal Mood Assessment and Plan - Assessment and Plan (Free Text) Assessment: 57 year old male with bilateral chronic, recurrent wounds to the left lower extremity, improving Plan: Patient seen and evaluated with attending Dr. Laguna Charts, labs, vitals reviewed - afebrile Continue IV abx per ID Continue medical management per Medicine Team Continue IV abd per ID- Wound cx: MRSA, E coli, E Cloacae Ssp Bilateral leg wounds cleaned with saline and dressed with Bactroban, Telfa, ABD , DSD No plan for surgical management at this time Patient to follow up with Dr. Laguna upon discharge Podiatry will continue to follow while patient in house <Casey Laguna - Last Filed: 03/29/18 21:14> Objective - Vital Signs/Intake and Output Vital Signs (last 24 hours): Temp Pulse Resp BP Pulse Ox 97.6 F 86 20 119/78 96 03/29/18 15:00 03/29/18 15:00 03/29/18 15:00 03/29/18 17:21 03/29/18 15:00 Intake and Output: 03/29/18 03/30/18 18:59 06:59 Intake Total 400 Output Total 500 Balance -100 - Medications Medications: Current Medications Acetaminophen (Tylenol 325mg Tab) 650 mg PO Q6 PRN PRN Reason: Headache Docusate Sodium (Colace) 100 mg PO DAILY [facility] Last Admin: 03/29/18 09:02 Dose: Not Given Furosemide (Lasix) 40 mg PO BID [facility] Last Admin: 03/29/18 17:21 Dose: 40 mg Hydralazine HCl (Apresoline) 25 mg PO Q8 [facility] Last Admin: 03/29/18 13:06 Dose: 25 mg Meropenem 1 gm/ Sodium (Chloride) 100 mls @ 100 mls/hr IVPB Q8 [facility] PRN Reason: Protocol Last Admin: 03/29/18 13:22 Dose: 100 mls/hr Vancomycin/Sodium Chloride (Vancomycin 1 Gm/Ns 200 Ml) 1 gm in 200 mls @ 166.7 mls/hr IVPB Q12H [facility] PRN Reason: Protocol Stop: 03/31/18 15:31 Last Admin: 03/29/18 14:41 Dose: 166.7 mls/hr Insulin Human Regular (Novolin R) 0 unit SC ACHS [facility] PRN Reason: Protocol Last Admin: 03/29/18 17:21 Dose: 1 unit Iron (Ferocon) 1 cap PO DAILY [facility] Last Admin: 03/29/18 09:02 Dose: 1 cap Levothyroxine Sodium (Synthroid) 75 mcg PO DAILY@0630 [facility] Last Admin: 03/29/18 06:16 Dose: 75 mcg Metformin HCl (Glucophage Xr) 500 mg PO BID [facility] Last Admin: 03/29/18 17:21 Dose: 500 mg Multivitamins/Minerals (Therapeutic-M Tab) 1 tab PO DAILY [facility] Last Admin: 03/29/18 09:02 Dose: 1 tab Mupirocin (Bactroban Ointment) 1 gm TOP BID [facility] Last Admin: 03/29/18 17:23 Dose: Not Given Nystatin (Nystop Topical Powder) 1 applic TOP BID [facility] Last Admin: 03/29/18 17:23 Dose: Not Given Oxycodone HCl (Oxycontin Extended Release Tab) 80 mg PO Q6 [facility] Last Admin: 03/29/18 17:48 Dose: 80 mg Oxycodone/Acetaminophen (Percocet 5/325 Mg Tab) 2 tab PO Q4H PRN PRN Reason: Pain, moderate (4-7) Stop: 03/29/18 23:29 Last Admin: 03/29/18 19:28 Dose: 2 tab Fluticasone/Salmeterol (Advair Diskus 250/50) 1 puff IH RQ12 [facility] Last Admin: 03/29/18 09:00 Dose: 1 puff Sitagliptin Phosphate (Januvia) 50 mg PO DAILY [facility] Last Admin: 03/29/18 09:02 Dose: 50 mg - Labs Labs: 03/27/18 06:16 03/27/18 06:16 PT 19.3 SECONDS (9.7-12.2) H 03/28/18 03:53 INR 1.7 03/28/18 03:53 APTT 29 SECONDS (21-34) 03/14/18 10:23 Assessment and Plan - Assessment and Plan (Free Text) Plan: as above /We have discussed with Patient need for manager long term care placement or recurrence will continue after discharge with need for more aggressive antibiotic therapy . DR Combs
--- NOTE | 2018-03-29 23:21 | CP.PCM.PN ---
Subjective - Date & Time of Evaluation Date of Evaluation: 03/29/18 Time of Evaluation: 18:00 - Subjective Subjective: Pt seen and examined at bedside Objective - Vital Signs/Intake and Output Vital Signs (last 24 hours): Temp Pulse Resp BP Pulse Ox 97.6 F 86 20 119/78 96 03/29/18 15:00 03/29/18 15:00 03/29/18 15:00 03/29/18 17:21 03/29/18 15:00 Intake and Output: 03/29/18 03/30/18 18:59 06:59 Intake Total 400 1100 Output Total 500 Balance -100 1100 - Medications Medications: Current Medications Acetaminophen (Tylenol 325mg Tab) 650 mg PO Q6 PRN PRN Reason: Headache Docusate Sodium (Colace) 100 mg PO DAILY [facility] Last Admin: 03/29/18 09:02 Dose: Not Given Furosemide (Lasix) 40 mg PO BID [facility] Last Admin: 03/29/18 17:21 Dose: 40 mg Hydralazine HCl (Apresoline) 25 mg PO Q8 [facility] Last Admin: 03/29/18 21:10 Dose: 25 mg Meropenem 1 gm/ Sodium (Chloride) 100 mls @ 100 mls/hr IVPB Q8 [facility] PRN Reason: Protocol Last Admin: 03/29/18 21:11 Dose: 100 mls/hr Vancomycin/Sodium Chloride (Vancomycin 1 Gm/Ns 200 Ml) 1 gm in 200 mls @ 166.7 mls/hr IVPB Q12H [facility] PRN Reason: Protocol Stop: 03/31/18 15:31 Last Admin: 03/29/18 14:41 Dose: 166.7 mls/hr Insulin Human Regular (Novolin R) 0 unit SC ACHS [facility] PRN Reason: Protocol Last Admin: 03/29/18 21:29 Dose: Not Given Iron (Ferocon) 1 cap PO DAILY [facility] Last Admin: 03/29/18 09:02 Dose: 1 cap Levothyroxine Sodium (Synthroid) 75 mcg PO DAILY@0630 [facility] Last Admin: 03/29/18 06:16 Dose: 75 mcg Metformin HCl (Glucophage Xr) 500 mg PO BID [facility] Last Admin: 03/29/18 17:21 Dose: 500 mg Multivitamins/Minerals (Therapeutic-M Tab) 1 tab PO DAILY [facility] Last Admin: 03/29/18 09:02 Dose: 1 tab Mupirocin (Bactroban Ointment) 1 gm TOP BID [facility] Last Admin: 03/29/18 17:23 Dose: Not Given Nystatin (Nystop Topical Powder) 1 applic TOP BID [facility] Last Admin: 03/29/18 17:23 Dose: Not Given Oxycodone HCl (Oxycontin Extended Release Tab) 80 mg PO Q6 [facility] Last Admin: 03/29/18 17:48 Dose: 80 mg Oxycodone/Acetaminophen (Percocet 5/325 Mg Tab) 2 tab PO Q4H PRN PRN Reason: Pain, moderate (4-7) Stop: 03/29/18 23:29 Last Admin: 03/29/18 19:28 Dose: 2 tab Fluticasone/Salmeterol (Advair Diskus 250/50) 1 puff IH RQ12 [facility] Last Admin: 03/29/18 22:01 Dose: Not Given Sitagliptin Phosphate (Januvia) 50 mg PO DAILY [facility] Last Admin: 03/29/18 09:02 Dose: 50 mg - Labs Labs: 03/27/18 06:16 03/27/18 06:16 PT 19.3 SECONDS (9.7-12.2) H 03/28/18 03:53 INR 1.7 03/28/18 03:53 APTT 29 SECONDS (21-34) 03/14/18 10:23 - Constitutional Appears: No Acute Distress - Head Exam Head Exam: ATRAUMATIC, NORMAL INSPECTION, NORMOCEPHALIC - Eye Exam Eye Exam: EOMI, Normal appearance, PERRL Pupil Exam: NORMAL ACCOMODATION, PERRL - Neck Exam Neck Exam: Full ROM - Cardiovascular Exam Cardiovascular Exam: REGULAR RHYTHM, +S1, +S2. absent: Murmur - GI/Abdominal Exam GI & Abdominal Exam: Soft, Normal Bowel Sounds. absent: Tenderness - Rectal Exam Rectal Exam: Deferred Assessment and Plan (1) Fall Status: Acute (2) HTN (hypertension) Status: Acute (3) Diabetes Status: Acute (4) Cellulitis Status: Acute (5) Wrist fracture Status: Acute (6) Leg ulcer, left Status: Chronic
[2018-03-30] MEDS: Vancomycin 1 gm/NS 200 ml 1 GM/200 ML BAG IVPB SCH ×2 (02:30→14:31)
[2018-03-30] MEDS: Oxycodone/Acetaminophen 5/325 mg Tab PO PRN ×5 (03:30→19:50)
[2018-03-30] MEDS: oxyCODONE 80 mg ER Tab (oxyCONTIN) PO SCH ×3 (05:30→17:27)
[2018-03-30] MEDS: Levothyroxine 75 MCG TAB PO SCH (05:30)
[2018-03-30] MEDS: Meropenem 1 GM in Sodium Chloride 0.9% 100 ML IVPB SCH ×3 (05:30→22:11)
[2018-03-30] MEDS: (Novolin R) Insulin Human Regular 100 units/ml vial SC SCH ×4 (06:58→22:06)
[2018-03-30 07:09] LABS: BASO # 0.1 K/uL (0.0-0.2); BASO % 0.9 % (0.0-2.0); EOS # 0.4 K/uL (0.0-0.7); EOS % 5.7 % (0.0-4.0); HEMOGLOBIN 11.3 g/dL (12.0-18.0); LYMPH # 1.9 K/uL (1.0-4.3); LYMPH % 28.3 % (20.0-40.0); MEAN CELL VOLUME 77.8 fL (80.0-94.0); MEAN CORPUSCULAR HEMOGLOBIN 26.1 pg (27.0-31.0); MEAN CORPUSCULAR HGB CONC 33.6 g/dL (33.0-37.0); MEAN PLATELET VOLUME 10.3 fL (7.2-11.7); MONO # 0.5 K/uL (0.0-0.8); MONO % 7.1 % (0.0-10.0); NEUT # 3.9 K/uL (1.8-7.0); RBC 4.31 Mil/uL (4.40-5.90); RED CELL DISTRIBUTION WIDTH 20.2 % (11.5-14.5); WHITE BLOOD COUNT 6.7 K/uL (4.8-10.8)
[2018-03-30] MEDS: Fluticasone-Salmeterol 250-50mcg Diskus IH SCH (07:47)
[2018-03-30 08:15] LABS: ALB/GLOB RATIO 0.8 (1.0-2.1); ALBUMIN 3.7 g/dL (3.5-5.0); ALT/SGPT 23 U/L (21-72); AST/SGOT 29 U/L (17-59); BLOOD UREA NITROGEN 30 mg/dL (9-20); GFR AFRICAN-AMERICAN > 60; GFR NON-AFRICAN AMERICAN > 60
[2018-03-30] MEDS: Multivitamin With Minerals Tab PO SCH (09:02)
[2018-03-30] MEDS: Ferrous Fum/Folic Acid/IF/VI 1 Cap PO SCH (09:02)
--- NOTE | 2018-03-30 10:13 | RAD ---
PROCEDURE: Left Wrist Radiographs. HISTORY: remove brace for xrays COMPARISON: None. FINDINGS: BONES: Comminuted transverse distal radial fracture. Nondisplaced ulnar styloid process fracture. JOINTS: Normal. No dislocation. SOFT TISSUES: There is evidence of hemarthrosis with elevation of the pronator fat pad. OTHER FINDINGS: None. IMPRESSION: Comminuted nondisplaced distal radial fracture. Nondisplaced ulnar styloid process fracture.
--- NOTE | 2018-03-30 16:31 | CP.PCM.PN ---
Subjective - Date & Time of Evaluation Date of Evaluation: 03/30/18 Time of Evaluation: 17:35 - Subjective Subjective: Pt seen and examined at bedside Objective - Vital Signs/Intake and Output Vital Signs (last 24 hours): Temp Pulse Resp BP Pulse Ox 97.7 F 72 20 125/71 95 03/30/18 15:57 03/30/18 15:57 03/30/18 15:57 03/30/18 15:57 03/30/18 15:57 Intake and Output: 03/30/18 03/30/18 06:59 18:59 Intake Total 1100 400 Output Total 1500 Balance 1100 -1100 - Medications Medications: Current Medications Acetaminophen (Tylenol 325mg Tab) 650 mg PO Q6 PRN PRN Reason: Headache Docusate Sodium (Colace) 100 mg PO DAILY [facility] Last Admin: 03/30/18 09:04 Dose: Not Given Furosemide (Lasix) 40 mg PO BID [facility] Last Admin: 03/30/18 09:02 Dose: 40 mg Hydralazine HCl (Apresoline) 25 mg PO Q8 [facility] Last Admin: 03/30/18 13:07 Dose: 25 mg Meropenem 1 gm/ Sodium (Chloride) 100 mls @ 100 mls/hr IVPB Q8 [facility] PRN Reason: Protocol Last Admin: 03/30/18 13:26 Dose: 100 mls/hr Vancomycin/Sodium Chloride (Vancomycin 1 Gm/Ns 200 Ml) 1 gm in 200 mls @ 166.7 mls/hr IVPB Q12H [facility] PRN Reason: Protocol Stop: 03/31/18 15:31 Last Admin: 03/30/18 14:31 Dose: 166.7 mls/hr Insulin Human Regular (Novolin R) 0 unit SC ACHS [facility] PRN Reason: Protocol Last Admin: 03/30/18 11:58 Dose: Not Given Iron (Ferocon) 1 cap PO DAILY [facility] Last Admin: 03/30/18 09:02 Dose: 1 cap Levothyroxine Sodium (Synthroid) 75 mcg PO DAILY@0630 [facility] Last Admin: 03/30/18 05:30 Dose: 75 mcg Metformin HCl (Glucophage Xr) 500 mg PO BID [facility] Last Admin: 03/30/18 09:02 Dose: 500 mg Multivitamins/Minerals (Therapeutic-M Tab) 1 tab PO DAILY [facility] Last Admin: 03/30/18 09:02 Dose: 1 tab Mupirocin (Bactroban Ointment) 1 gm TOP BID [facility] Last Admin: 03/30/18 09:04 Dose: 1 applic Nystatin (Nystop Topical Powder) 1 applic TOP BID [facility] Last Admin: 03/30/18 09:03 Dose: 1 applic Oxycodone HCl (Oxycontin Extended Release Tab) 80 mg PO Q6 [facility] Last Admin: 03/30/18 11:40 Dose: 80 mg Oxycodone/Acetaminophen (Percocet 5/325 Mg Tab) 2 tab PO Q4H PRN PRN Reason: Pain, moderate (4-7) Stop: 04/01/18 23:35 Last Admin: 03/30/18 15:44 Dose: 2 tab Fluticasone/Salmeterol (Advair Diskus 250/50) 1 puff IH RQ12 [facility] Last Admin: 03/30/18 07:47 Dose: 1 puff Sitagliptin Phosphate (Januvia) 50 mg PO DAILY [facility] Last Admin: 03/30/18 09:02 Dose: 50 mg - Labs Labs: 03/30/18 06:53 03/30/18 06:53 PT 19.3 SECONDS (9.7-12.2) H 03/28/18 03:53 INR 1.7 03/28/18 03:53 APTT 29 SECONDS (21-34) 03/14/18 10:23 Assessment and Plan (1) Fall Status: Acute (2) HTN (hypertension) Status: Acute (3) Diabetes Status: Acute (4) Cellulitis Status: Acute (5) Wrist fracture Status: Acute (6) Leg ulcer, left Status: Chronic
[2018-03-31] MEDS: oxyCODONE 80 mg ER Tab (oxyCONTIN) PO SCH ×5 (00:10→23:50)
[2018-03-31] MEDS: Oxycodone/Acetaminophen 5/325 mg Tab PO PRN ×6 (00:25→20:58)
[2018-03-31] MEDS: Vancomycin 1 gm/NS 200 ml 1 GM/200 ML BAG IVPB SCH ×2 (04:30→14:36)
[2018-03-31] MEDS: Levothyroxine 75 MCG TAB PO SCH (05:54)
[2018-03-31] MEDS: Meropenem 1 GM in Sodium Chloride 0.9% 100 ML IVPB SCH ×3 (06:15→20:59)
[2018-03-31] MEDS: (Novolin R) Insulin Human Regular 100 units/ml vial SC SCH ×4 (07:03→21:26)
[2018-03-31 07:40] LABS: BASO # 0.1 K/uL (0.0-0.2); EOS # 0.3 K/uL (0.0-0.7); EOS % 5.6 % (0.0-4.0); HEMOGLOBIN 11.7 g/dL (12.0-18.0); LYMPH # 1.5 K/uL (1.0-4.3); LYMPH % 25.6 % (20.0-40.0); MEAN CORPUSCULAR HEMOGLOBIN 26.3 pg (27.0-31.0); MEAN CORPUSCULAR HGB CONC 33.7 g/dL (33.0-37.0); MEAN PLATELET VOLUME 11.3 fL (7.2-11.7); MONO # 0.4 K/uL (0.0-0.8); MONO % 7.3 % (0.0-10.0); NEUT # 3.7 K/uL (1.8-7.0); NEUT % 60.5 % (50.0-75.0); RBC 4.45 Mil/uL (4.40-5.90); RED CELL DISTRIBUTION WIDTH 19.7 % (11.5-14.5)
[2018-03-31 07:55] LABS: ALB/GLOB RATIO 0.8 (1.0-2.1); ALBUMIN 3.8 g/dL (3.5-5.0); ALT/SGPT 20 U/L (21-72); AST/SGOT 30 U/L (17-59); BLOOD UREA NITROGEN 34 mg/dL (9-20); CALCIUM 9.4 mg/dl (8.6-10.4); GFR AFRICAN-AMERICAN > 60; GFR NON-AFRICAN AMERICAN 57
[2018-03-31] MEDS: Fluticasone-Salmeterol 250-50mcg Diskus IH SCH ×2 (08:00→19:23)
[2018-03-31] MEDS: Multivitamin With Minerals Tab PO SCH (09:01)
[2018-03-31] MEDS: Ferrous Fum/Folic Acid/IF/VI 1 Cap PO SCH (09:01)
--- NOTE | 2018-03-31 10:38 | CP.PCM.PN ---
Subjective - Date & Time of Evaluation Date of Evaluation: 03/31/18 Time of Evaluation: 10:38 - Subjective Subjective: Podiatry Progress note for Dr. Laguna 57 year old male seen at bedside for chronic, recurrent wounds to bilateral lower extremities, left worse than right. Pt is clinically same. Denies any acute overnight events or any new pedal complaints at this time. States that pain is well controlled. Denies any recent F/C/N/V/CP/SOB. Objective - Vital Signs/Intake and Output Vital Signs (last 24 hours): Temp Pulse Resp BP Pulse Ox 97.7 F 66 20 119/71 98 03/31/18 07:00 03/31/18 07:00 03/31/18 07:00 03/31/18 09:01 03/31/18 07:00 Intake and Output: 03/31/18 03/31/18 06:59 18:59 Intake Total 450 Balance 450 - Medications Medications: Current Medications Acetaminophen (Tylenol 325mg Tab) 650 mg PO Q6 PRN PRN Reason: Headache Docusate Sodium (Colace) 100 mg PO DAILY [facility] Last Admin: 03/31/18 09:01 Dose: Not Given Furosemide (Lasix) 40 mg PO BID [facility] Last Admin: 03/31/18 09:01 Dose: 40 mg Hydralazine HCl (Apresoline) 25 mg PO Q8 [facility] Last Admin: 03/31/18 05:53 Dose: 25 mg Meropenem 1 gm/ Sodium (Chloride) 100 mls @ 100 mls/hr IVPB Q8 [facility] PRN Reason: Protocol Last Admin: 03/31/18 06:15 Dose: 100 mls/hr Vancomycin/Sodium Chloride (Vancomycin 1 Gm/Ns 200 Ml) 1 gm in 200 mls @ 166.7 mls/hr IVPB Q12H [facility] PRN Reason: Protocol Stop: 03/31/18 15:31 Last Admin: 03/31/18 04:30 Dose: 166.7 mls/hr Insulin Human Regular (Novolin R) 0 unit SC ACHS [facility] PRN Reason: Protocol Last Admin: 03/31/18 07:03 Dose: Not Given Iron (Ferocon) 1 cap PO DAILY [facility] Last Admin: 03/31/18 09:01 Dose: 1 cap Levothyroxine Sodium (Synthroid) 75 mcg PO DAILY@0630 [facility] Last Admin: 03/31/18 05:54 Dose: 75 mcg Metformin HCl (Glucophage Xr) 500 mg PO BID [facility] Last Admin: 03/31/18 09:01 Dose: 500 mg Multivitamins/Minerals (Therapeutic-M Tab) 1 tab PO DAILY [facility] Last Admin: 03/31/18 09:01 Dose: 1 tab Mupirocin (Bactroban Ointment) 1 gm TOP BID [facility] Last Admin: 03/31/18 09:02 Dose: 1 applic Nystatin (Nystop Topical Powder) 1 applic TOP BID [facility] Last Admin: 03/31/18 09:02 Dose: 1 applic Oxycodone HCl (Oxycontin Extended Release Tab) 80 mg PO Q6 [facility] Last Admin: 03/31/18 05:53 Dose: 80 mg Oxycodone/Acetaminophen (Percocet 5/325 Mg Tab) 2 tab PO Q4H PRN PRN Reason: Pain, moderate (4-7) Stop: 04/01/18 23:35 Last Admin: 03/31/18 08:40 Dose: 2 tab Fluticasone/Salmeterol (Advair Diskus 250/50) 1 puff IH RQ12 [facility] Last Admin: 03/31/18 08:00 Dose: 1 puff Sitagliptin Phosphate (Januvia) 50 mg PO DAILY [facility] Last Admin: 03/31/18 09:01 Dose: 50 mg - Labs Labs: 03/31/18 07:15 03/31/18 07:15 PT 19.3 SECONDS (9.7-12.2) H 03/28/18 03:53 INR 1.7 03/28/18 03:53 APTT 29 SECONDS (21-34) 03/14/18 10:23 - Constitutional Appears: Well, Non-toxic, No Acute Distress - Extremities Exam Additional comments: Lower extremity focused exam: No strikethrough noted to outer layer of dressings bilaterally. Vasc: Non-palpable pedal pulses due to edema B/L, TG warm to warm, CFT < 3 sec to all digits, +1 pitting edema to bilateral lower extremities distal to tibial tuberosity Derm: Localized mild non-streaking, blanchable periwound erythema to mid-calf level B/L. Left: Multiple continuos open ulcerations extending from tibial tuberosity to medial malleolus noted to the mid leg circumferentially and posterior ulceration undergoing early stage re-epithelialization. Minor active sero- sanguinous drainage, wound base is 100% granular. No shital-wound macerations. No purulence noted, moderate malodor noted. Right: Open superficial ulceration noted to the medial aspect of leg at mid- calf level approximately 3.9 x 3.1 cm. Ulceration margins undergoing early stage re-epithelialization with no active sero-sanguinous drainage, wound base is 100% granular with no shital-wound macerations. No purulence noted, moderate malodor noted. Neuro: protective sensation mildly diminished MUSC: pain on palpation of posterior and medial legs B/L, left > right - Neurological Exam Neurological Exam: Alert, Awake, Oriented x3 - Psychiatric Exam Psychiatric exam: Normal Affect, Normal Mood Assessment and Plan - Assessment and Plan (Free Text) Assessment: 57 year old male with bilateral chronic, recurrent wounds to the left lower extremity, improving Plan: Patient seen and evaluated Discussed with attending Dr. Laguna Charts, labs, vitals reviewed - afebrile, WBC 6 Continue IV abx per ID Continue medical management per Medicine Team Continue IV abd per ID- Wound cx: MRSA, E coli, E Cloacae Ssp Bilateral leg wounds cleaned with saline and dressed with Bactroban, Telfa, ABD , DSD No plan for surgical management at this time Patient to follow up with Dr. Laguna upon discharge Podiatry will continue to follow while patient in house
[2018-03-31 11:34] LABS: INR 1.4; PROTHROMBIN TIME 16.7 SECONDS (9.7-12.2)
--- NOTE | 2018-03-31 15:05 | CP.PCM.PN ---
Subjective - Date & Time of Evaluation Date of Evaluation: 03/31/18 Time of Evaluation: 15:04 - Subjective Subjective: Patient states he still has some pain in his wrist, but it continues to improve. Wearing splint and maintaining nwb. Denies numbness/tingling Review of Systems - Review of Systems All systems: reviewed and no additional remarkable complaints except - Constitutional Additional comments: no fever/chills - Cardiovascular Cardiovascular: UNREMARKABLE - Respiratory Respiratory: UNREMARKABLE - Gastrointestinal Gastrointestinal: UNREMARKABLE - Musculoskeletal Musculoskeletal: As Par HPI - Neurological Neurological: UNREMARKABLE - Hematologic/Lymphatic Hematologic: UNREMARKABLE Objective - Vital Signs/Intake and Output Vital Signs (last 24 hours): Temp Pulse Resp BP Pulse Ox 97.7 F 66 20 119/71 98 03/31/18 07:00 03/31/18 07:00 03/31/18 07:00 03/31/18 09:01 03/31/18 07:00 Intake and Output: 03/31/18 03/31/18 06:59 18:59 Intake Total 450 Output Total 300 Balance 450 -300 - Medications Medications: Current Medications Acetaminophen (Tylenol 325mg Tab) 650 mg PO Q6 PRN PRN Reason: Headache Docusate Sodium (Colace) 100 mg PO DAILY [facility] Last Admin: 03/31/18 09:01 Dose: Not Given Furosemide (Lasix) 40 mg PO BID [facility] Last Admin: 03/31/18 09:01 Dose: 40 mg Hydralazine HCl (Apresoline) 25 mg PO Q8 [facility] Last Admin: 03/31/18 13:00 Dose: 25 mg Meropenem 1 gm/ Sodium (Chloride) 100 mls @ 100 mls/hr IVPB Q8 [facility] PRN Reason: Protocol Last Admin: 03/31/18 13:31 Dose: 100 mls/hr Vancomycin/Sodium Chloride (Vancomycin 1 Gm/Ns 200 Ml) 1 gm in 200 mls @ 166.7 mls/hr IVPB Q12H [facility] PRN Reason: Protocol Stop: 03/31/18 15:31 Last Admin: 03/31/18 14:36 Dose: 166.7 mls/hr Insulin Human Regular (Novolin R) 0 unit SC ACHS [facility] PRN Reason: Protocol Last Admin: 03/31/18 11:22 Dose: Not Given Iron (Ferocon) 1 cap PO DAILY [facility] Last Admin: 03/31/18 09:01 Dose: 1 cap Levothyroxine Sodium (Synthroid) 75 mcg PO DAILY@0630 [facility] Last Admin: 03/31/18 05:54 Dose: 75 mcg Metformin HCl (Glucophage Xr) 500 mg PO BID [facility] Last Admin: 03/31/18 09:01 Dose: 500 mg Multivitamins/Minerals (Therapeutic-M Tab) 1 tab PO DAILY [facility] Last Admin: 03/31/18 09:01 Dose: 1 tab Mupirocin (Bactroban Ointment) 1 gm TOP BID [facility] Last Admin: 03/31/18 09:02 Dose: 1 applic Nystatin (Nystop Topical Powder) 1 applic TOP BID [facility] Last Admin: 03/31/18 09:02 Dose: 1 applic Oxycodone HCl (Oxycontin Extended Release Tab) 80 mg PO Q6 [facility] Last Admin: 03/31/18 11:21 Dose: 80 mg Oxycodone/Acetaminophen (Percocet 5/325 Mg Tab) 2 tab PO Q4H PRN PRN Reason: Pain, moderate (4-7) Stop: 04/01/18 23:35 Last Admin: 03/31/18 13:01 Dose: 2 tab Fluticasone/Salmeterol (Advair Diskus 250/50) 1 puff IH RQ12 [facility] Last Admin: 03/31/18 08:00 Dose: 1 puff Sitagliptin Phosphate (Januvia) 50 mg PO DAILY [facility] Last Admin: 03/31/18 09:01 Dose: 50 mg Warfarin Sodium (Coumadin) 10 mg PO 1800 [facility] Stop: 03/31/18 18:01 Warfarin Sodium (Coumadin) 1 mg PO 1800 [facility] Stop: 03/31/18 18:01 - Labs Labs: 03/31/18 07:15 03/31/18 07:15 PT 16.7 SECONDS (9.7-12.2) H 03/31/18 11:24 INR 1.4 03/31/18 11:24 APTT 29 SECONDS (21-34) 03/14/18 10:23 - Constitutional Appears: Well, No Acute Distress - Head Exam Head Exam: ATRAUMATIC - Neck Exam Neck Exam: Full ROM - Respiratory Exam Respiratory Exam: NORMAL BREATHING PATTERN Additional comments: +radial pulse - Extremities Exam Additional comments: swelling sig improved Full ROM fingers without pain sensation intact o rad/med/ulnar nerve distrib - Neurological Exam Neurological Exam: Alert, Awake, Oriented x3 Neuro motor strength exam: Left Upper Extremity: 5 - Psychiatric Exam Psychiatric exam: Normal Affect, Normal Mood - Skin Skin Exam: Dry, Intact, Normal Color, Warm Assessment and Plan (1) Closed fracture of left distal radius Assessment & Plan: slightly more impacted than on previous films, position still acceptable cont splint at all times NWB d/w Dr. Young, agrees with above f/u as outpatient 1-2 weeks upon d/c call for appt Status: Acute (2) Nondisplaced fracture of left ulna styloid process, subsequent encounter for closed fracture with delayed healing Status: Acute Radiology Interpretation - Radiology Interpretation #2 Interpretation: reator : Jake Brown MD Dictator : Jake Brown MD Ironer Or Presser : Bone Density Technician : Jake Brown MD Approver2 : Report Date : 03/30/2018 10:06:47 My Comment : PROCEDURE: Left Wrist Radiographs. HISTORY: remove brace for xrays COMPARISON: None. FINDINGS: BONES: Comminuted transverse distal radial fracture. Nondisplaced ulnar styloid process fracture. JOINTS: Normal. No dislocation. SOFT TISSUES: There is evidence of hemarthrosis with elevation of the pronator fat pad. OTHER FINDINGS: None. IMPRESSION: Comminuted nondisplaced distal radial fracture. Nondisplaced ulnar styloid process fracture.
--- NOTE | 2018-03-31 22:45 | CP.PCM.PN ---
Subjective - Date & Time of Evaluation Date of Evaluation: 03/31/18 Time of Evaluation: 17:40 - Subjective Subjective: Pt seen and examined s/p left wrist fracture , c/o pain, left leg ulcer on antibiotics, afebrile, decreased discharge from left leg ulcer s/p prior graft Objective - Vital Signs/Intake and Output Vital Signs (last 24 hours): Temp Pulse Resp BP Pulse Ox 97.8 F 81 20 121/71 94 L 03/31/18 16:02 03/31/18 16:02 03/31/18 16:02 03/31/18 17:58 03/31/18 16:02 Intake and Output: 03/31/18 04/01/18 18:59 06:59 Output Total 300 Balance -300 - Medications Medications: Current Medications Acetaminophen (Tylenol 325mg Tab) 650 mg PO Q6 PRN PRN Reason: Headache Docusate Sodium (Colace) 100 mg PO DAILY [facility] Last Admin: 03/31/18 09:01 Dose: Not Given Furosemide (Lasix) 40 mg PO BID [facility] Last Admin: 03/31/18 17:58 Dose: 40 mg Hydralazine HCl (Apresoline) 25 mg PO Q8 [facility] Last Admin: 03/31/18 20:59 Dose: 25 mg Meropenem 1 gm/ Sodium (Chloride) 100 mls @ 100 mls/hr IVPB Q8 [facility] PRN Reason: Protocol Last Admin: 03/31/18 20:59 Dose: 100 mls/hr Insulin Human Regular (Novolin R) 0 unit SC ACHS [facility] PRN Reason: Protocol Last Admin: 03/31/18 21:26 Dose: Not Given Iron (Ferocon) 1 cap PO DAILY [facility] Last Admin: 03/31/18 09:01 Dose: 1 cap Levothyroxine Sodium (Synthroid) 75 mcg PO DAILY@0630 [facility] Last Admin: 03/31/18 05:54 Dose: 75 mcg Metformin HCl (Glucophage Xr) 500 mg PO BID [facility] Last Admin: 03/31/18 17:58 Dose: 500 mg Multivitamins/Minerals (Therapeutic-M Tab) 1 tab PO DAILY [facility] Last Admin: 03/31/18 09:01 Dose: 1 tab Mupirocin (Bactroban Ointment) 1 gm TOP BID [facility] Last Admin: 03/31/18 17:59 Dose: Not Given Nystatin (Nystop Topical Powder) 1 applic TOP BID [facility] Last Admin: 03/31/18 17:59 Dose: 1 applic Oxycodone HCl (Oxycontin Extended Release Tab) 80 mg PO Q6 [facility] Last Admin: 03/31/18 17:58 Dose: 80 mg Oxycodone/Acetaminophen (Percocet 5/325 Mg Tab) 2 tab PO Q4H PRN PRN Reason: Pain, moderate (4-7) Stop: 04/01/18 23:35 Last Admin: 03/31/18 20:58 Dose: 2 tab Fluticasone/Salmeterol (Advair Diskus 250/50) 1 puff IH RQ12 [facility] Last Admin: 03/31/18 19:23 Dose: 1 puff Sitagliptin Phosphate (Januvia) 50 mg PO DAILY [facility] Last Admin: 03/31/18 09:01 Dose: 50 mg - Labs Labs: 03/31/18 07:15 03/31/18 07:15 PT 16.7 SECONDS (9.7-12.2) H 03/31/18 11:24 INR 1.4 03/31/18 11:24 APTT 29 SECONDS (21-34) 03/14/18 10:23 - Constitutional Appears: No Acute Distress - Head Exam Head Exam: ATRAUMATIC, NORMAL INSPECTION, NORMOCEPHALIC - Eye Exam Eye Exam: EOMI, Normal appearance, PERRL Pupil Exam: NORMAL ACCOMODATION, PERRL - Respiratory Exam Respiratory Exam: Clear to Ausculation Bilateral, NORMAL BREATHING PATTERN - Cardiovascular Exam Cardiovascular Exam: REGULAR RHYTHM, +S1, +S2. absent: Murmur - GI/Abdominal Exam GI & Abdominal Exam: Soft, Normal Bowel Sounds. absent: Tenderness - Rectal Exam Rectal Exam: Deferred Assessment and Plan (1) Fall Status: Acute (2) HTN (hypertension) Status: Acute (3) Diabetes Status: Acute (4) Cellulitis Status: Acute (5) Wrist fracture Status: Acute (6) Leg ulcer, left Status: Chronic
[2018-04-01] MEDS: Oxycodone/Acetaminophen 5/325 mg Tab PO PRN ×6 (01:10→20:32)
[2018-04-01] MEDS: Meropenem 1 GM in Sodium Chloride 0.9% 100 ML IVPB SCH ×3 (05:30→21:22)
[2018-04-01] MEDS: Levothyroxine 75 MCG TAB PO SCH (05:31)
[2018-04-01] MEDS: oxyCODONE 80 mg ER Tab (oxyCONTIN) PO SCH ×4 (05:31→23:45)
[2018-04-01 07:33] LABS: BASO # 0.1 K/uL (0.0-0.2); BASO % 1.1 % (0.0-2.0); EOS # 0.3 K/uL (0.0-0.7); EOS % 5.5 % (0.0-4.0); HEMOGLOBIN 10.9 g/dL (12.0-18.0); LYMPH # 1.5 K/uL (1.0-4.3); LYMPH % 25.4 % (20.0-40.0); MEAN CELL VOLUME 78.9 fL (80.0-94.0); MEAN CORPUSCULAR HGB CONC 32.9 g/dL (33.0-37.0); MEAN PLATELET VOLUME 10.3 fL (7.2-11.7); MONO # 0.5 K/uL (0.0-0.8); MONO % 7.9 % (0.0-10.0); NEUT # 3.5 K/uL (1.8-7.0); NEUT % 60.1 % (50.0-75.0); NRBC % 0.1 % (0.0-2.0); RBC 4.21 Mil/uL (4.40-5.90); RED CELL DISTRIBUTION WIDTH 19.8 % (11.5-14.5); WHITE BLOOD COUNT 5.8 K/uL (4.8-10.8)
[2018-04-01 07:49] LABS: INR 1.4; PROTHROMBIN TIME 15.7 SECONDS (9.7-12.2)
[2018-04-01 07:50] LABS: ALB/GLOB RATIO 0.9 (1.0-2.1); ALBUMIN 3.7 g/dL (3.5-5.0); ALT/SGPT 24 U/L (21-72); AST/SGOT 27 U/L (17-59); BLOOD UREA NITROGEN 31 mg/dL (9-20); CALCIUM 9.3 mg/dl (8.6-10.4); GFR AFRICAN-AMERICAN > 60; GFR NON-AFRICAN AMERICAN > 60
[2018-04-01] MEDS: (Novolin R) Insulin Human Regular 100 units/ml vial SC SCH ×3 (08:03→16:41)
--- NOTE | 2018-04-01 08:08 | CP.PCM.PN ---
Subjective - Date & Time of Evaluation Date of Evaluation: 04/01/18 Time of Evaluation: 18:35 - Subjective Subjective: Pt seen and examined, is c/o left wrist pain Objective - Vital Signs/Intake and Output Vital Signs (last 24 hours): Temp Pulse Resp BP Pulse Ox 97.7 F 64 20 122/71 98 04/01/18 07:05 04/01/18 07:05 04/01/18 07:05 04/01/18 07:05 04/01/18 07:05 Intake and Output: 04/01/18 04/01/18 06:59 18:59 Output Total 300 Balance -300 - Medications Medications: Current Medications Acetaminophen (Tylenol 325mg Tab) 650 mg PO Q6 PRN PRN Reason: Headache Docusate Sodium (Colace) 100 mg PO DAILY [facility] Last Admin: 03/31/18 09:01 Dose: Not Given Furosemide (Lasix) 40 mg PO BID [facility] Last Admin: 03/31/18 17:58 Dose: 40 mg Hydralazine HCl (Apresoline) 25 mg PO Q8 [facility] Last Admin: 04/01/18 05:31 Dose: 25 mg Meropenem 1 gm/ Sodium (Chloride) 100 mls @ 100 mls/hr IVPB Q8 [facility] PRN Reason: Protocol Last Admin: 04/01/18 05:30 Dose: 100 mls/hr Vancomycin/Sodium Chloride (Vancomycin 1 Gm/Ns 200 Ml) 1 gm in 200 mls @ 133 mls/hr IVPB Q12H [facility] PRN Reason: Protocol Stop: 04/06/18 08:01 Insulin Human Regular (Novolin R) 0 unit SC ACHS [facility] PRN Reason: Protocol Last Admin: 04/01/18 08:03 Dose: Not Given Iron (Ferocon) 1 cap PO DAILY [facility] Last Admin: 03/31/18 09:01 Dose: 1 cap Levothyroxine Sodium (Synthroid) 75 mcg PO DAILY@0630 [facility] Last Admin: 04/01/18 05:31 Dose: 75 mcg Metformin HCl (Glucophage Xr) 500 mg PO BID [facility] Last Admin: 03/31/18 17:58 Dose: 500 mg Multivitamins/Minerals (Therapeutic-M Tab) 1 tab PO DAILY [facility] Last Admin: 03/31/18 09:01 Dose: 1 tab Mupirocin (Bactroban Ointment) 1 gm TOP BID [facility] Last Admin: 03/31/18 17:59 Dose: Not Given Nystatin (Nystop Topical Powder) 1 applic TOP BID [facility] Last Admin: 03/31/18 17:59 Dose: 1 applic Oxycodone HCl (Oxycontin Extended Release Tab) 80 mg PO Q6 [facility] Last Admin: 04/01/18 05:31 Dose: 80 mg Oxycodone/Acetaminophen (Percocet 5/325 Mg Tab) 2 tab PO Q4H PRN PRN Reason: Pain, moderate (4-7) Stop: 04/01/18 23:35 Last Admin: 04/01/18 05:30 Dose: 2 tab Fluticasone/Salmeterol (Advair Diskus 250/50) 1 puff IH RQ12 [facility] Last Admin: 03/31/18 19:23 Dose: 1 puff Sitagliptin Phosphate (Januvia) 50 mg PO DAILY [facility] Last Admin: 03/31/18 09:01 Dose: 50 mg - Labs Labs: 04/01/18 07:13 04/01/18 07:13 PT 15.7 SECONDS (9.7-12.2) H 04/01/18 07:13 INR 1.4 04/01/18 07:13 APTT 29 SECONDS (21-34) 03/14/18 10:23 Assessment and Plan (1) Fall Status: Acute (2) HTN (hypertension) Status: Acute (3) Diabetes Status: Acute (4) Cellulitis Status: Acute (5) Wrist fracture Status: Acute (6) Leg ulcer, left Status: Chronic
[2018-04-01] MEDS: Vancomycin 1 gm/NS 200 ml 1 GM/200 ML BAG IVPB SCH ×2 (09:13→19:48)
[2018-04-01] MEDS: Ferrous Fum/Folic Acid/IF/VI 1 Cap PO SCH (09:18)
[2018-04-01] MEDS: Multivitamin With Minerals Tab PO SCH (09:18)
[2018-04-01] MEDS: Fluticasone-Salmeterol 250-50mcg Diskus IH SCH (09:36)
[2018-04-02] MEDS ORDERED: Oxycodone/Acetaminophen 5/325 mg Tab PO STA (03:13)
[2018-04-02] MEDS: Meropenem 1 GM in Sodium Chloride 0.9% 100 ML IVPB SCH ×3 (05:35→21:49)
[2018-04-02] MEDS: oxyCODONE 80 mg ER Tab (oxyCONTIN) PO SCH ×3 (05:36→18:38)
[2018-04-02] MEDS: Levothyroxine 75 MCG TAB PO SCH (05:37)
[2018-04-02 07:33] LABS: BASO # 0.1 K/uL (0.0-0.2); EOS # 0.4 K/uL (0.0-0.7); EOS % 5.4 % (0.0-4.0); HEMOGLOBIN 11.4 g/dL (12.0-18.0); LYMPH # 1.7 K/uL (1.0-4.3); MEAN CELL VOLUME 79.5 fL (80.0-94.0); MEAN CORPUSCULAR HEMOGLOBIN 26.2 pg (27.0-31.0); MEAN PLATELET VOLUME 11.5 fL (7.2-11.7); MONO # 0.6 K/uL (0.0-0.8); MONO % 8.4 % (0.0-10.0); NEUT # 4.3 K/uL (1.8-7.0); NEUT % 61.2 % (50.0-75.0); RBC 4.33 Mil/uL (4.40-5.90); RED CELL DISTRIBUTION WIDTH 19.9 % (11.5-14.5)
[2018-04-02] MEDS: (Novolin R) Insulin Human Regular 100 units/ml vial SC SCH ×4 (07:34→21:50)
[2018-04-02 07:38] LABS: INR 1.4; PROTHROMBIN TIME 15.5 SECONDS (9.7-12.2)
[2018-04-02 08:06] LABS: ALB/GLOB RATIO 0.9 (1.0-2.1); ALT/SGPT 24 U/L (21-72); AST/SGOT 34 U/L (17-59); BLOOD UREA NITROGEN 33 mg/dL (9-20); CALCIUM 9.2 mg/dl (8.6-10.4); GFR AFRICAN-AMERICAN > 60; GFR NON-AFRICAN AMERICAN 57
[2018-04-02] MEDS: Oxycodone/Acetaminophen 5/325 mg Tab PO PRN ×4 (08:19→21:47)
[2018-04-02] MEDS: Multivitamin With Minerals Tab PO SCH (09:10)
[2018-04-02] MEDS: Vancomycin 1 gm/NS 200 ml 1 GM/200 ML BAG IVPB SCH ×2 (09:11→20:00)
[2018-04-02] MEDS: Fluticasone-Salmeterol 250-50mcg Diskus IH SCH ×2 (10:00→19:53)
[2018-04-02] MEDS: Ferrous Fum/Folic Acid/IF/VI 1 Cap PO SCH (12:07)
--- NOTE | 2018-04-02 16:57 | CP.PCM.PN ---
Subjective - Date & Time of Evaluation Date of Evaluation: 04/02/18 Time of Evaluation: 18:00 - Subjective Subjective: pt seen and examined, pt is for discharge tommorow, positive pain in left wrist , back, left leg ulcer with discharge Objective - Vital Signs/Intake and Output Vital Signs (last 24 hours): Temp Pulse Resp BP Pulse Ox 98 F 86 20 131/73 98 04/02/18 16:35 04/02/18 16:35 04/02/18 16:35 04/02/18 16:35 04/02/18 16:35 Intake and Output: 04/02/18 04/02/18 06:59 18:59 Intake Total 600 480 Output Total 700 1200 Balance -100 -720 - Medications Medications: Current Medications Acetaminophen (Tylenol 325mg Tab) 650 mg PO Q6 PRN PRN Reason: Headache Docusate Sodium (Colace) 100 mg PO DAILY [facility] Last Admin: 04/02/18 09:09 Dose: 100 mg Furosemide (Lasix) 40 mg PO BID [facility] Last Admin: 04/02/18 09:10 Dose: 40 mg Gabapentin (Neurontin) 300 mg PO BID [facility] Last Admin: 04/02/18 09:10 Dose: 300 mg Hydralazine HCl (Apresoline) 25 mg PO Q8 [facility] Last Admin: 04/02/18 13:25 Dose: 25 mg Meropenem 1 gm/ Sodium (Chloride) 100 mls @ 100 mls/hr IVPB Q8 [facility] PRN Reason: Protocol Last Admin: 04/02/18 13:48 Dose: 100 mls/hr Vancomycin/Sodium Chloride (Vancomycin 1 Gm/Ns 200 Ml) 1 gm in 200 mls @ 133 mls/hr IVPB Q12H [facility] PRN Reason: Protocol Stop: 04/06/18 08:01 Last Admin: 04/02/18 09:11 Dose: 133 mls/hr Insulin Human Regular (Novolin R) 0 unit SC ACHS [facility] PRN Reason: Protocol Last Admin: 04/02/18 11:43 Dose: Not Given Iron (Ferocon) 1 cap PO DAILY [facility] Last Admin: 04/02/18 12:07 Dose: 1 cap Levothyroxine Sodium (Synthroid) 75 mcg PO DAILY@0630 [facility] Last Admin: 04/02/18 05:37 Dose: 75 mcg Metformin HCl (Glucophage Xr) 500 mg PO BID [facility] Last Admin: 04/02/18 09:10 Dose: 500 mg Multivitamins/Minerals (Therapeutic-M Tab) 1 tab PO DAILY [facility] Last Admin: 04/02/18 09:10 Dose: 1 tab Mupirocin (Bactroban Ointment) 1 gm TOP BID [facility] Last Admin: 04/02/18 10:00 Dose: Not Given Nystatin (Nystop Topical Powder) 1 applic TOP BID [facility] Last Admin: 04/02/18 09:10 Dose: 1 applic Oxycodone HCl (Oxycontin Extended Release Tab) 80 mg PO Q6 [facility] Last Admin: 04/02/18 12:06 Dose: 80 mg Oxycodone/Acetaminophen (Percocet 5/325 Mg Tab) 2 tab PO Q4H PRN PRN Reason: Pain, moderate (4-7) Stop: 04/05/18 08:01 Last Admin: 04/02/18 13:18 Dose: 2 tab Fluticasone/Salmeterol (Advair Diskus 250/50) 1 puff IH RQ12 [facility] Last Admin: 04/02/18 10:00 Dose: 1 puff Sitagliptin Phosphate (Januvia) 50 mg PO DAILY [facility] Last Admin: 04/02/18 09:10 Dose: 50 mg Warfarin Sodium (Coumadin) 10 mg PO 1800 [facility] Stop: 04/02/18 18:01 Warfarin Sodium (Coumadin) 2.5 mg PO 1800 [facility] Stop: 04/02/18 18:01 - Labs Labs: 04/02/18 07:26 04/02/18 07:26 PT 15.5 SECONDS (9.7-12.2) H 04/02/18 07:26 INR 1.4 04/02/18 07:26 APTT 29 SECONDS (21-34) 03/14/18 10:23 - Constitutional Appears: No Acute Distress - Head Exam Head Exam: ATRAUMATIC, NORMAL INSPECTION, NORMOCEPHALIC - Eye Exam Eye Exam: EOMI, Normal appearance, PERRL Pupil Exam: NORMAL ACCOMODATION, PERRL - Respiratory Exam Respiratory Exam: Clear to Ausculation Bilateral, NORMAL BREATHING PATTERN - Cardiovascular Exam Cardiovascular Exam: REGULAR RHYTHM, +S1, +S2. absent: Murmur - GI/Abdominal Exam GI & Abdominal Exam: Soft, Normal Bowel Sounds. absent: Tenderness - Rectal Exam Rectal Exam: Deferred Assessment and Plan (1) Fall Status: Acute (2) HTN (hypertension) Status: Acute (3) Diabetes Status: Acute (4) Cellulitis Status: Acute (5) Wrist fracture Status: Acute (6) Leg ulcer, left Status: Chronic
--- NOTE | 2018-04-02 18:26 | CP.PCM.PN ---
<Huey Chaparro - Last Filed: 04/02/18 18:20> Subjective - Date & Time of Evaluation Date of Evaluation: 04/02/18 Time of Evaluation: 12:00 - Subjective Subjective: Podiatry Progress note for Dr. Laguna 57 year old male seen at bedside for chronic, recurrent wounds to bilateral lower extremities, left worse than right. No acute events overnight. Patient reports continued pain in both legs, L>R however well-controlled. Dressings have remained clean/dry/intact. Patient denies N/V/F/D/C/SOB/MABRY/dizziness. Objective - Vital Signs/Intake and Output Vital Signs (last 24 hours): Temp Pulse Resp BP Pulse Ox 98 F 86 20 133/85 98 04/02/18 16:35 04/02/18 16:35 04/02/18 16:35 04/02/18 17:33 04/02/18 16:35 Intake and Output: 04/02/18 04/02/18 06:59 18:59 Intake Total 600 480 Output Total 700 1200 Balance -100 -720 - Medications Medications: Current Medications Acetaminophen (Tylenol 325mg Tab) 650 mg PO Q6 PRN PRN Reason: Headache Docusate Sodium (Colace) 100 mg PO DAILY [facility] Last Admin: 04/02/18 09:09 Dose: 100 mg Furosemide (Lasix) 40 mg PO BID [facility] Last Admin: 04/02/18 17:33 Dose: 40 mg Gabapentin (Neurontin) 300 mg PO BID [facility] Last Admin: 04/02/18 17:32 Dose: 300 mg Hydralazine HCl (Apresoline) 25 mg PO Q8 [facility] Last Admin: 04/02/18 13:25 Dose: 25 mg Meropenem 1 gm/ Sodium (Chloride) 100 mls @ 100 mls/hr IVPB Q8 [facility] PRN Reason: Protocol Last Admin: 04/02/18 13:48 Dose: 100 mls/hr Vancomycin/Sodium Chloride (Vancomycin 1 Gm/Ns 200 Ml) 1 gm in 200 mls @ 133 mls/hr IVPB Q12H [facility] PRN Reason: Protocol Stop: 04/06/18 08:01 Last Admin: 04/02/18 09:11 Dose: 133 mls/hr Insulin Human Regular (Novolin R) 0 unit SC ACHS [facility] PRN Reason: Protocol Last Admin: 04/02/18 17:36 Dose: Not Given Iron (Ferocon) 1 cap PO DAILY [facility] Last Admin: 04/02/18 12:07 Dose: 1 cap Levothyroxine Sodium (Synthroid) 75 mcg PO DAILY@0630 [facility] Last Admin: 04/02/18 05:37 Dose: 75 mcg Metformin HCl (Glucophage Xr) 500 mg PO BID [facility] Last Admin: 04/02/18 09:10 Dose: 500 mg Multivitamins/Minerals (Therapeutic-M Tab) 1 tab PO DAILY [facility] Last Admin: 04/02/18 09:10 Dose: 1 tab Mupirocin (Bactroban Ointment) 1 gm TOP BID [facility] Last Admin: 04/02/18 17:35 Dose: Not Given Nystatin (Nystop Topical Powder) 1 applic TOP BID [facility] Last Admin: 04/02/18 17:36 Dose: 1 applic Oxycodone HCl (Oxycontin Extended Release Tab) 80 mg PO Q6 [facility] Last Admin: 04/02/18 12:06 Dose: 80 mg Oxycodone/Acetaminophen (Percocet 5/325 Mg Tab) 2 tab PO Q4H PRN PRN Reason: Pain, moderate (4-7) Stop: 04/05/18 08:01 Last Admin: 04/02/18 17:32 Dose: 2 tab Fluticasone/Salmeterol (Advair Diskus 250/50) 1 puff IH RQ12 [facility] Last Admin: 04/02/18 10:00 Dose: 1 puff Sitagliptin Phosphate (Januvia) 50 mg PO DAILY [facility] Last Admin: 04/02/18 09:10 Dose: 50 mg - Labs Labs: 04/02/18 07:26 04/02/18 07:26 PT 15.5 SECONDS (9.7-12.2) H 04/02/18 07:26 INR 1.4 04/02/18 07:26 APTT 29 SECONDS (21-34) 03/14/18 10:23 - Constitutional Appears: Well, Non-toxic, No Acute Distress - Extremities Exam Additional comments: Lower extremity focused exam: No strikethrough noted to outer layer of dressings bilaterally. Vasc: Non-palpable pedal pulses due to edema B/L, TG warm to warm, CFT < 3 sec to all digits, +1 pitting edema to bilateral lower extremities distal to tibial tuberosity Derm: Localized mild non-streaking, blanchable periwound erythema to mid-calf level B/L. Left: Multiple continuous open ulcerations extending from tibial tuberosity to medial malleolus noted to the mid leg circumferentially and posterior ulceration undergoing early stage re-epithelialization. Moderate active sanguinous drainage, wound base is 100% granular. No shital-wound macerations. No purulence noted, moderate malodor noted. Right: Open superficial ulceration noted to the medial aspect of leg at mid- calf level approximately 3.9 x 3.1 cm. Ulceration margins undergoing early stage re-epithelialization with no active sero-sanguinous drainage, wound base is 100% granular with no shital-wound macerations. No purulence noted, moderate malodor noted. Neuro: protective sensation mildly diminished MUSC: pain on palpation of posterior and medial legs B/L, left > right - Neurological Exam Neurological Exam: Alert, Awake, Oriented x3 - Psychiatric Exam Psychiatric exam: Normal Affect, Normal Mood Assessment and Plan - Assessment and Plan (Free Text) Assessment: 57 year old male with bilateral chronic, recurrent wounds to the left lower extremity, improving Plan: Patient seen and evaluated Discussed with attending Dr. Laguna Afebrile, WBC 7.0 Left leg Wound cx: MRSA, E coli, E Cloacae Ssp Continue IV abx per ID - Meropenem 1g IV, Vancomycin 1g IV Continue medical management per Medicine Team Continue local wound care: Saline cleanse, Bactroban, Telfa, DSD Patient to follow up with Dr. Laguna upon discharge Podiatry will continue to follow <Casey Laguna - Last Filed: 04/02/18 20:55> Objective - Vital Signs/Intake and Output Vital Signs (last 24 hours): Temp Pulse Resp BP Pulse Ox 98 F 86 20 133/85 98 04/02/18 16:35 04/02/18 16:35 04/02/18 16:35 04/02/18 17:33 04/02/18 16:35 Intake and Output: 04/02/18 04/03/18 18:59 06:59 Intake Total 480 Output Total 1200 Balance -720 - Medications Medications: Current Medications Acetaminophen (Tylenol 325mg Tab) 650 mg PO Q6 PRN PRN Reason: Headache Docusate Sodium (Colace) 100 mg PO DAILY [facility] Last Admin: 04/02/18 09:09 Dose: 100 mg Furosemide (Lasix) 40 mg PO BID [facility] Last Admin: 04/02/18 17:33 Dose: 40 mg Gabapentin (Neurontin) 300 mg PO BID [facility] Last Admin: 04/02/18 17:32 Dose: 300 mg Hydralazine HCl (Apresoline) 25 mg PO Q8 [facility] Last Admin: 04/02/18 13:25 Dose: 25 mg Meropenem 1 gm/ Sodium (Chloride) 100 mls @ 100 mls/hr IVPB Q8 [facility] PRN Reason: Protocol Last Admin: 04/02/18 13:48 Dose: 100 mls/hr Vancomycin/Sodium Chloride (Vancomycin 1 Gm/Ns 200 Ml) 1 gm in 200 mls @ 133 mls/hr IVPB Q12H [facility] PRN Reason: Protocol Stop: 04/06/18 08:01 Last Admin: 04/02/18 09:11 Dose: 133 mls/hr Insulin Human Regular (Novolin R) 0 unit SC ACHS [facility] PRN Reason: Protocol Last Admin: 04/02/18 17:36 Dose: Not Given Iron (Ferocon) 1 cap PO DAILY [facility] Last Admin: 04/02/18 12:07 Dose: 1 cap Levothyroxine Sodium (Synthroid) 75 mcg PO DAILY@0630 [facility] Last Admin: 04/02/18 05:37 Dose: 75 mcg Metformin HCl (Glucophage Xr) 500 mg PO BID [facility] Last Admin: 04/02/18 18:38 Dose: 500 mg Multivitamins/Minerals (Therapeutic-M Tab) 1 tab PO DAILY [facility] Last Admin: 04/02/18 09:10 Dose: 1 tab Mupirocin (Bactroban Ointment) 1 gm TOP BID [facility] Last Admin: 04/02/18 17:35 Dose: Not Given Mupirocin (Bactroban Ointment) 0 gm TOP BID [facility] Nystatin (Nystop Topical Powder) 1 applic TOP BID [facility] Last Admin: 04/02/18 17:36 Dose: 1 applic Oxycodone HCl (Oxycontin Extended Release Tab) 80 mg PO Q6 [facility] Last Admin: 04/02/18 18:38 Dose: 80 mg Oxycodone/Acetaminophen (Percocet 5/325 Mg Tab) 2 tab PO Q4H PRN PRN Reason: Pain, moderate (4-7) Stop: 04/05/18 08:01 Last Admin: 04/02/18 17:32 Dose: 2 tab Fluticasone/Salmeterol (Advair Diskus 250/50) 1 puff IH RQ12 [facility] Last Admin: 04/02/18 19:53 Dose: 1 puff Sitagliptin Phosphate (Januvia) 50 mg PO DAILY [facility] Last Admin: 04/02/18 09:10 Dose: 50 mg - Labs Labs: 04/02/18 07:26 04/02/18 07:26 PT 15.5 SECONDS (9.7-12.2) H 04/02/18 07:26 INR 1.4 04/02/18 07:26 APTT 29 SECONDS (21-34) 03/14/18 10:23 Assessment and Plan - Assessment and Plan (Free Text) Plan: as above /pt seen at bedside and no complaints . discussed need for followup at discharge./Dr Laguna
[2018-04-03] MEDS: oxyCODONE 80 mg ER Tab (oxyCONTIN) PO SCH ×5 (00:48→23:55)
[2018-04-03] MEDS: Oxycodone/Acetaminophen 5/325 mg Tab PO PRN ×5 (02:17→20:58)
[2018-04-03] MEDS: Meropenem 1 GM in Sodium Chloride 0.9% 100 ML IVPB SCH ×3 (06:00→20:59)
[2018-04-03] MEDS: Levothyroxine 75 MCG TAB PO SCH (06:00)
[2018-04-03 07:11] LABS: BASO % 0.8 % (0.0-2.0); EOS # 0.3 K/uL (0.0-0.7); EOS % 5.4 % (0.0-4.0); HEMOGLOBIN 10.7 g/dL (12.0-18.0); LYMPH # 1.4 K/uL (1.0-4.3); LYMPH % 22.6 % (20.0-40.0); MEAN CELL VOLUME 79.5 fL (80.0-94.0); MEAN CORPUSCULAR HEMOGLOBIN 26.3 pg (27.0-31.0); MEAN CORPUSCULAR HGB CONC 33.1 g/dL (33.0-37.0); MEAN PLATELET VOLUME 10.4 fL (7.2-11.7); MONO # 0.6 K/uL (0.0-0.8); MONO % 9.2 % (0.0-10.0); NEUT # 3.8 K/uL (1.8-7.0); RBC 4.07 Mil/uL (4.40-5.90); RED CELL DISTRIBUTION WIDTH 20.1 % (11.5-14.5); WHITE BLOOD COUNT 6.2 K/uL (4.8-10.8)
[2018-04-03] MEDS: Fluticasone-Salmeterol 250-50mcg Diskus IH SCH (07:15)
[2018-04-03 07:20] LABS: INR 1.6; PROTHROMBIN TIME 17.4 SECONDS (9.7-12.2)
[2018-04-03 07:31] LABS: ALB/GLOB RATIO 0.9 (1.0-2.1); ALBUMIN 3.7 g/dL (3.5-5.0)
[2018-04-03] MEDS: (Novolin R) Insulin Human Regular 100 units/ml vial SC SCH ×4 (08:11→22:59)
--- NOTE | 2018-04-03 08:52 | CP.PCM.PN ---
Subjective - Date & Time of Evaluation Date of Evaluation: 04/03/18 Time of Evaluation: 18:00 - Subjective Subjective: Pt seen and evaluated today Objective - Vital Signs/Intake and Output Vital Signs (last 24 hours): Temp Pulse Resp BP Pulse Ox 98.2 F 76 18 113/66 98 04/03/18 07:00 04/03/18 07:00 04/03/18 07:00 04/03/18 07:00 04/03/18 07:00 Intake and Output: 04/03/18 04/03/18 06:59 18:59 Intake Total 350 Output Total 300 Balance 50 - Medications Medications: Current Medications Acetaminophen (Tylenol 325mg Tab) 650 mg PO Q6 PRN PRN Reason: Headache Docusate Sodium (Colace) 100 mg PO DAILY [facility] Last Admin: 04/02/18 09:09 Dose: 100 mg Furosemide (Lasix) 40 mg PO BID [facility] Last Admin: 04/02/18 17:33 Dose: 40 mg Gabapentin (Neurontin) 300 mg PO BID [facility] Last Admin: 04/02/18 17:32 Dose: 300 mg Hydralazine HCl (Apresoline) 25 mg PO Q8 [facility] Last Admin: 04/03/18 06:00 Dose: 25 mg Meropenem 1 gm/ Sodium (Chloride) 100 mls @ 100 mls/hr IVPB Q8 [facility] PRN Reason: Protocol Last Admin: 04/03/18 06:00 Dose: 100 mls/hr Vancomycin/Sodium Chloride (Vancomycin 1 Gm/Ns 200 Ml) 1 gm in 200 mls @ 133 mls/hr IVPB Q12H [facility] PRN Reason: Protocol Stop: 04/06/18 08:01 Last Admin: 04/02/18 20:00 Dose: 133 mls/hr Insulin Human Regular (Novolin R) 0 unit SC ACHS [facility] PRN Reason: Protocol Last Admin: 04/03/18 08:11 Dose: Not Given Iron (Ferocon) 1 cap PO DAILY [facility] Last Admin: 04/02/18 12:07 Dose: 1 cap Levothyroxine Sodium (Synthroid) 75 mcg PO DAILY@0630 [facility] Last Admin: 04/03/18 06:00 Dose: 75 mcg Metformin HCl (Glucophage Xr) 500 mg PO BID [facility] Last Admin: 04/02/18 18:38 Dose: 500 mg Multivitamins/Minerals (Therapeutic-M Tab) 1 tab PO DAILY [facility] Last Admin: 04/02/18 09:10 Dose: 1 tab Mupirocin (Bactroban Ointment) 1 gm TOP BID [facility] Last Admin: 04/02/18 17:35 Dose: Not Given Mupirocin (Bactroban Ointment) 0 gm TOP BID [facility] Nystatin (Nystop Topical Powder) 1 applic TOP BID [facility] Last Admin: 04/02/18 17:36 Dose: 1 applic Oxycodone HCl (Oxycontin Extended Release Tab) 80 mg PO Q6 [facility] Last Admin: 04/03/18 06:00 Dose: 80 mg Oxycodone/Acetaminophen (Percocet 5/325 Mg Tab) 2 tab PO Q4H PRN PRN Reason: Pain, moderate (4-7) Stop: 04/05/18 08:01 Last Admin: 04/03/18 06:22 Dose: 2 tab Fluticasone/Salmeterol (Advair Diskus 250/50) 1 puff IH RQ12 [facility] Last Admin: 04/03/18 07:15 Dose: 1 puff Sitagliptin Phosphate (Januvia) 50 mg PO DAILY [facility] Last Admin: 04/02/18 09:10 Dose: 50 mg - Labs Labs: 04/03/18 07:00 04/03/18 07:00 PT 17.4 SECONDS (9.7-12.2) H 04/03/18 07:00 INR 1.6 04/03/18 07:00 APTT 29 SECONDS (21-34) 03/14/18 10:23 Assessment and Plan (1) Fall Status: Acute (2) HTN (hypertension) Status: Acute (3) Diabetes Status: Acute (4) Cellulitis Status: Acute (5) Wrist fracture Status: Acute (6) Leg ulcer, left Status: Chronic
[2018-04-03] MEDS: Vancomycin 1 gm/NS 200 ml 1 GM/200 ML BAG IVPB SCH ×2 (08:55→20:58)
[2018-04-03] MEDS: Multivitamin With Minerals Tab PO SCH (09:03)
[2018-04-03] MEDS: Ferrous Fum/Folic Acid/IF/VI 1 Cap PO SCH (13:15)
--- NOTE | 2018-04-03 15:38 | CP.PCM.PN ---
Subjective - Date & Time of Evaluation Date of Evaluation: 04/03/18 Time of Evaluation: 15:35 - Subjective Subjective: Podiatry Progress note for Dr. Laguna 57 year old male seen at bedside for chronic, recurrent wounds to bilateral lower extremities, left worse than right. No acute events overnight. Patient reports continued pain in both legs, L>R however well-controlled. Dressings have remained clean/dry/intact. Patient denies N/V/F/D/C/SOB/MABRY/dizziness. Objective - Vital Signs/Intake and Output Vital Signs (last 24 hours): Temp Pulse Resp BP Pulse Ox 98.2 F 76 18 113/66 98 04/03/18 07:00 04/03/18 07:00 04/03/18 07:00 04/03/18 09:03 04/03/18 07:00 Intake and Output: 04/03/18 04/03/18 06:59 18:59 Intake Total 350 780 Output Total 300 600 Balance 50 180 - Medications Medications: Current Medications Acetaminophen (Tylenol 325mg Tab) 650 mg PO Q6 PRN PRN Reason: Headache Docusate Sodium (Colace) 100 mg PO DAILY [facility] Last Admin: 04/03/18 09:03 Dose: 100 mg Furosemide (Lasix) 40 mg PO BID [facility] Last Admin: 04/03/18 09:03 Dose: 40 mg Gabapentin (Neurontin) 300 mg PO BID [facility] Last Admin: 04/03/18 09:03 Dose: 300 mg Hydralazine HCl (Apresoline) 25 mg PO Q8 [facility] Last Admin: 04/03/18 13:15 Dose: 25 mg Meropenem 1 gm/ Sodium (Chloride) 100 mls @ 100 mls/hr IVPB Q8 [facility] PRN Reason: Protocol Last Admin: 04/03/18 13:17 Dose: 100 mls/hr Vancomycin/Sodium Chloride (Vancomycin 1 Gm/Ns 200 Ml) 1 gm in 200 mls @ 133 mls/hr IVPB Q12H [facility] PRN Reason: Protocol Stop: 04/06/18 08:01 Last Admin: 04/03/18 08:55 Dose: 133 mls/hr Insulin Human Regular (Novolin R) 0 unit SC ACHS [facility] PRN Reason: Protocol Last Admin: 04/03/18 12:37 Dose: 1 unit Iron (Ferocon) 1 cap PO DAILY [facility] Last Admin: 04/03/18 13:15 Dose: 1 cap Levothyroxine Sodium (Synthroid) 75 mcg PO DAILY@0630 [facility] Last Admin: 04/03/18 06:00 Dose: 75 mcg Metformin HCl (Glucophage Xr) 500 mg PO BID [facility] Last Admin: 04/03/18 09:03 Dose: 500 mg Multivitamins/Minerals (Therapeutic-M Tab) 1 tab PO DAILY [facility] Last Admin: 04/03/18 09:03 Dose: 1 tab Mupirocin (Bactroban Ointment) 0 gm TOP BID [facility] Last Admin: 04/03/18 09:05 Dose: Not Given Nystatin (Nystop Topical Powder) 1 applic TOP BID [facility] Last Admin: 04/03/18 09:04 Dose: 1 applic Oxycodone HCl (Oxycontin Extended Release Tab) 80 mg PO Q6 [facility] Last Admin: 04/03/18 12:36 Dose: 80 mg Oxycodone/Acetaminophen (Percocet 5/325 Mg Tab) 2 tab PO Q4H PRN PRN Reason: Pain, moderate (4-7) Stop: 04/05/18 08:01 Last Admin: 04/03/18 10:42 Dose: 2 tab Fluticasone/Salmeterol (Advair Diskus 250/50) 1 puff IH RQ12 [facility] Last Admin: 04/03/18 07:15 Dose: 1 puff Sitagliptin Phosphate (Januvia) 50 mg PO DAILY [facility] Last Admin: 04/03/18 09:03 Dose: 50 mg Warfarin Sodium (Coumadin) 10 mg PO 1800 [facility] Stop: 04/03/18 18:01 Warfarin Sodium (Coumadin) 1 mg PO DAILY@1800 [facility] Stop: 04/03/18 18:01 - Labs Labs: 04/03/18 07:00 04/03/18 07:00 PT 17.4 SECONDS (9.7-12.2) H 04/03/18 07:00 INR 1.6 04/03/18 07:00 APTT 29 SECONDS (21-34) 03/14/18 10:23 - Constitutional Appears: Well, Non-toxic, No Acute Distress - Extremities Exam Additional comments: Dressing on bilateral LE is clean, dry and intact - Neurological Exam Neurological Exam: Alert, Awake, Oriented x3 - Psychiatric Exam Psychiatric exam: Normal Affect, Normal Mood Assessment and Plan - Assessment and Plan (Free Text) Assessment: 57 year old male with bilateral chronic, recurrent wounds to the left lower extremity, improving Plan: Patient seen and evaluated Discussed with attending Dr. Laguna Afebrile, WBC 6.2 Left leg Wound cx: MRSA, E coli, E Cloacae Ssp Continue IV abx per ID - Meropenem 1g IV, Vancomycin 1g IV Continue medical management per Medicine Team Continue local wound care: Saline cleanse, Bactroban, Telfa, DSD Patient to follow up with Dr. Laguna upon discharge Podiatry will continue to follow
[2018-04-03 16:26] VITALS: RESP 20
--- NOTE | 2018-04-03 17:22 | CP.PCM.PN ---
Subjective - Date & Time of Evaluation Date of Evaluation: 04/03/18 Time of Evaluation: 17:22 - Subjective Subjective: Alert, orientedx3, no acute distress. Objective - Vital Signs/Intake and Output Vital Signs (last 24 hours): Temp Pulse Resp BP Pulse Ox 97.9 F 72 20 114/68 97 04/03/18 16:00 04/03/18 16:00 04/03/18 16:00 04/03/18 16:00 04/03/18 16:00 Intake and Output: 04/03/18 04/03/18 06:59 18:59 Intake Total 350 780 Output Total 300 600 Balance 50 180 - Medications Medications: Current Medications Acetaminophen (Tylenol 325mg Tab) 650 mg PO Q6 PRN PRN Reason: Headache Docusate Sodium (Colace) 100 mg PO DAILY [facility] Last Admin: 04/03/18 09:03 Dose: 100 mg Furosemide (Lasix) 40 mg PO BID [facility] Last Admin: 04/03/18 09:03 Dose: 40 mg Gabapentin (Neurontin) 300 mg PO BID [facility] Last Admin: 04/03/18 09:03 Dose: 300 mg Hydralazine HCl (Apresoline) 25 mg PO Q8 [facility] Last Admin: 04/03/18 13:15 Dose: 25 mg Meropenem 1 gm/ Sodium (Chloride) 100 mls @ 100 mls/hr IVPB Q8 [facility] PRN Reason: Protocol Last Admin: 04/03/18 13:17 Dose: 100 mls/hr Vancomycin/Sodium Chloride (Vancomycin 1 Gm/Ns 200 Ml) 1 gm in 200 mls @ 133 mls/hr IVPB Q12H [facility] PRN Reason: Protocol Stop: 04/06/18 08:01 Last Admin: 04/03/18 08:55 Dose: 133 mls/hr Insulin Human Regular (Novolin R) 0 unit SC ACHS [facility] PRN Reason: Protocol Last Admin: 04/03/18 12:37 Dose: 1 unit Iron (Ferocon) 1 cap PO DAILY [facility] Last Admin: 04/03/18 13:15 Dose: 1 cap Levothyroxine Sodium (Synthroid) 75 mcg PO DAILY@0630 [facility] Last Admin: 04/03/18 06:00 Dose: 75 mcg Metformin HCl (Glucophage Xr) 500 mg PO BID [facility] Last Admin: 04/03/18 09:03 Dose: 500 mg Multivitamins/Minerals (Therapeutic-M Tab) 1 tab PO DAILY [facility] Last Admin: 04/03/18 09:03 Dose: 1 tab Mupirocin (Bactroban Ointment) 0 gm TOP BID [facility] Last Admin: 04/03/18 09:05 Dose: Not Given Nystatin (Nystop Topical Powder) 1 applic TOP BID [facility] Last Admin: 04/03/18 09:04 Dose: 1 applic Oxycodone HCl (Oxycontin Extended Release Tab) 80 mg PO Q6 [facility] Last Admin: 04/03/18 12:36 Dose: 80 mg Oxycodone/Acetaminophen (Percocet 5/325 Mg Tab) 2 tab PO Q4H PRN PRN Reason: Pain, moderate (4-7) Stop: 04/05/18 08:01 Last Admin: 04/03/18 15:38 Dose: 2 tab Fluticasone/Salmeterol (Advair Diskus 250/50) 1 puff IH RQ12 [facility] Last Admin: 04/03/18 07:15 Dose: 1 puff Sitagliptin Phosphate (Januvia) 50 mg PO DAILY [facility] Last Admin: 04/03/18 09:03 Dose: 50 mg Warfarin Sodium (Coumadin) 10 mg PO 1800 [facility] Stop: 04/03/18 18:01 Warfarin Sodium (Coumadin) 1 mg PO DAILY@1800 [facility] Stop: 04/03/18 18:01 - Labs Labs: 04/03/18 07:00 04/03/18 07:00 PT 17.4 SECONDS (9.7-12.2) H 04/03/18 07:00 INR 1.6 04/03/18 07:00 APTT 29 SECONDS (21-34) 03/14/18 10:23 Assessment and Plan - Assessment and Plan (Free Text) Assessment: Patient is seen and examined. Alert and orientedx3, denies acute pain or distress. Cleared by Dr Laguna for discharge home and to follow up in his office. Discussed with DR Albright, plan to discharge home today with no antibiotics. Picc line to be removed prior to discharge. He wants to wait for his brother to come to bring him home.
[2018-04-04 00:11] VITALS: O2SAT 99
[2018-04-04] MEDS: Oxycodone/Acetaminophen 5/325 mg Tab PO PRN ×3 (01:19→10:56)
--- NOTE | 2018-04-04 02:59 | CP.PCM.DIS ---
Provider - Provider Date of Admission: 03/14/18 10:48 Attending physician: Estrada Albright MD Time Spent in preparation of Discharge (in minutes): 45 Diagnosis - Discharge Diagnosis (1) Fall Status: Acute (2) HTN (hypertension) Status: Acute (3) Diabetes Status: Acute (4) Cellulitis Status: Acute (5) Wrist fracture Status: Acute (6) Leg ulcer, left Status: Chronic Hospital Course - Lab Results Lab Results: Micro Results 03/16/18 Unknown Leg - Left Gram Stain - Final 03/16/18 Unknown Leg - Left Wound Culture - Final Enterobacter Cloacae Ssp Cloac Escherichia Coli Methicillin Resistant S Aureus Most Recent Lab Values WBC 6.2 K/uL (4.8-10.8) 04/03/18 07:00 RBC 4.07 Mil/uL (4.40-5.90) L 04/03/18 07:00 Hgb 10.7 g/dL (12.0-18.0) L 04/03/18 07:00 Hct 32.3 % (35.0-51.0) L 04/03/18 07:00 MCV 79.5 fL (80.0-94.0) L 04/03/18 07:00 MCH 26.3 pg (27.0-31.0) L 04/03/18 07:00 MCHC 33.1 g/dL (33.0-37.0) 04/03/18 07:00 RDW 20.1 % (11.5-14.5) H 04/03/18 07:00 Plt Count 145 K/uL (130-400) 04/03/18 07:00 MPV 10.4 fL (7.2-11.7) 04/03/18 07:00 Neut % (Auto) 62.0 % (50.0-75.0) 04/03/18 07:00 Lymph % (Auto) 22.6 % (20.0-40.0) 04/03/18 07:00 Winston % (Auto) 9.2 % (0.0-10.0) 04/03/18 07:00 Eos % (Auto) 5.4 % (0.0-4.0) H 04/03/18 07:00 Baso % (Auto) 0.8 % (0.0-2.0) 04/03/18 07:00 Neut # (Auto) 3.8 K/uL (1.8-7.0) 04/03/18 07:00 Lymph # (Auto) 1.4 K/uL (1.0-4.3) 04/03/18 07:00 Winston # (Auto) 0.6 K/uL (0.0-0.8) 04/03/18 07:00 Eos # (Auto) 0.3 K/uL (0.0-0.7) 04/03/18 07:00 Baso # (Auto) 0.0 K/uL (0.0-0.2) 04/03/18 07:00 PT 17.4 SECONDS (9.7-12.2) H 04/03/18 07:00 INR 1.6 04/03/18 07:00 APTT 29 SECONDS (21-34) 03/14/18 10:23 Sodium 141 mmol/L (132-148) 04/03/18 07:00 Potassium 4.1 mmol/L (3.6-5.2) 04/03/18 07:00 Chloride 98 mmol/L (98-107) 04/03/18 07:00 Carbon Dioxide 32 mmol/L (22-30) H 04/03/18 07:00 Anion Gap 15 (10-20) 04/03/18 07:00 BUN 35 mg/dL (9-20) H 04/03/18 07:00 Creatinine 1.5 mg/dL (0.8-1.5) 04/03/18 07:00 Est GFR ( Amer) 58 04/03/18 07:00 Est GFR (Non-Af Amer) 48 04/03/18 07:00 POC Glucose (mg/dL) 95 mg/dL (65-110) 04/03/18 21:38 Random Glucose 104 mg/dL (75-110) 04/03/18 07:00 Calcium 9.0 mg/dl (8.6-10.4) 04/03/18 07:00 Total Bilirubin 0.4 mg/dL (0.2-1.3) 04/03/18 07:00 AST 39 U/L (17-59) 04/03/18 07:00 ALT 23 U/L (21-72) 04/03/18 07:00 Alkaline Phosphatase 172 U/L (38-126) H 04/03/18 07:00 Total Protein 7.9 g/dL (6.3-8.3) 04/03/18 07:00 Albumin 3.7 g/dL (3.5-5.0) 04/03/18 07:00 Globulin 4.2 gm/dL (2.2-3.9) H 04/03/18 07:00 Albumin/Globulin Ratio 0.9 (1.0-2.1) L 04/03/18 07:00 Vancomycin Trough 12.1 ug/mL (5.0-10.0) H 03/28/18 03:53 - Hospital Course Hospital Course: Patient is seen and examined. Alert and orientedx3, denies acute pain or distress. Cleared for discharge home and to follow up in his office. discharge home today with no antibiotics. Picc line to be removed prior to discharge. He wants to wait for his brother to come to bring him home. Assessment: 57 year old male with bilateral chronic, recurrent wounds to the left lower extremity, improving Plan: Patient seen and evaluated Afebrile, WBC 6.2 as of yesterday Left leg Wound cx: MRSA, E coli, E Cloacae Ssp Continue IV abx per ID - Meropenem 1g IV, Vancomycin 1g IV Discharge Exam - Head Exam Head Exam: ATRAUMATIC, NORMAL INSPECTION, NORMOCEPHALIC - Eye Exam Eye Exam: EOMI, Normal appearance, PERRL Pupil Exam: NORMAL ACCOMODATION, PERRL - Respiratory Exam Respiratory Exam: Decreased Breath Sounds - Cardiovascular Exam Cardiovascular Exam: REGULAR RHYTHM, +S1, +S2 - GI/Abdominal Exam GI & Abdominal Exam: Normal Bowel Sounds Discharge Plan - Discharge Medications Prescriptions: SITagliptin [Januvia] 50 mg PO DAILY 30 Days tab Gabapentin [Neurontin] 300 mg PO BID 60 Days cap - Follow Up Plan Condition: STABLE Disposition: HOME/ ROUTINE Instructions: Diabetes Type 2 (DC), Forearm Fracture (DC), Wrist Fracture (DC) , Preventing Falls, Diabetes and Diet, Cellulitis (DC), Hypertension (DC) Additional Instructions: follow up with DR Laguna as advised for wound care follow up with PMDin 1 week continue with coumadin at home as advised. Referrals: Estrada Albright MD [Staff Provider] - Keenan Antonio MD [Staff Provider] - Remy Young MD [Staff Provider] - Casey Laguna DPM [Staff Provider] -
[2018-04-04] MEDS: Levothyroxine 75 MCG TAB PO SCH (05:30)
[2018-04-04] MEDS: Meropenem 1 GM in Sodium Chloride 0.9% 100 ML IVPB SCH ×2 (05:30→14:25)
[2018-04-04] MEDS: oxyCODONE 80 mg ER Tab (oxyCONTIN) PO SCH ×2 (05:30→12:48)
[2018-04-04] MEDS: (Novolin R) Insulin Human Regular 100 units/ml vial SC SCH ×2 (07:30→12:24)
[2018-04-04 08:05] VITALS: BP 127/70; PULSE 70; TEMP 98
[2018-04-04] MEDS: Fluticasone-Salmeterol 250-50mcg Diskus IH SCH (08:13)
[2018-04-04] MEDS: Multivitamin With Minerals Tab PO SCH (09:13)
[2018-04-04] MEDS: Ferrous Fum/Folic Acid/IF/VI 1 Cap PO SCH (09:13)
[2018-04-04] MEDS: Vancomycin 1 gm/NS 200 ml 1 GM/200 ML BAG IVPB SCH (09:14)
--- NOTE | 2018-04-04 16:15 | CP.PCM.PN ---
Subjective - Date & Time of Evaluation Date of Evaluation: 04/04/18 Time of Evaluation: 16:12 - Subjective Subjective: Podiatry Progress note for Dr. Laguna 57 year old male seen at bedside for chronic, recurrent wounds to bilateral lower extremities, left worse than right. No acute events overnight. Denies of any pain in b/l LE today. Reports that the left leg was draining fluid in the morning. Dressings have remained clean/dry/intact. Patient denies N/V/F/D/C/SOB/ MABRY/dizziness. Objective - Vital Signs/Intake and Output Vital Signs (last 24 hours): Temp Pulse Resp BP Pulse Ox 98.0 F 70 20 127/70 99 04/04/18 07:00 04/04/18 07:00 04/04/18 07:00 04/04/18 09:13 04/03/18 23:09 Intake and Output: 04/04/18 04/04/18 06:59 18:59 Intake Total 680 Output Total 600 Balance 80 - Labs Labs: 04/03/18 07:00 04/03/18 07:00 PT 17.4 SECONDS (9.7-12.2) H 04/03/18 07:00 INR 1.6 04/03/18 07:00 APTT 29 SECONDS (21-34) 03/14/18 10:23 - Constitutional Appears: Well, Non-toxic, No Acute Distress - Extremities Exam Additional comments: Lower extremity focused exam: No strikethrough noted to outer layer of dressings bilaterally. Vasc: Non-palpable pedal pulses due to edema B/L, TG warm to warm, CFT < 3 sec to all digits, +1 pitting edema to bilateral lower extremities distal to tibial tuberosity Derm: Localized mild non-streaking, blanchable periwound erythema to mid-calf level B/L. Left: Multiple continuous open ulcerations extending from tibial tuberosity to medial malleolus noted to the mid leg circumferentially and posterior ulceration undergoing early stage re-epithelialization. Moderate active sanguinous drainage, wound base is 100% granular. No shital-wound macerations. No purulence noted, moderate malodor noted. Right: Open superficial ulceration noted to the medial aspect of leg at mid- calf level approximately 3.9 x 3.1 cm. Ulceration margins undergoing early stage re-epithelialization with no active sero-sanguinous drainage, wound base is 100% granular with no shital-wound macerations. No purulence noted, moderate malodor noted. Neuro: protective sensation mildly diminished MUSC: pain on palpation of posterior and medial legs B/L, left > right - Neurological Exam Neurological Exam: Alert, Awake, Oriented x3 - Psychiatric Exam Psychiatric exam: Normal Affect, Normal Mood Assessment and Plan - Assessment and Plan (Free Text) Assessment: 57 year old male with bilateral chronic, recurrent wounds to the left lower extremity, improving Plan: Patient seen and evaluated Discussed with attending Dr. Laguna Afebrile, WBC 6.2 as of yesterday Left leg Wound cx: MRSA, E coli, E Cloacae Ssp Continue IV abx per ID - Meropenem 1g IV, Vancomycin 1g IV Continue medical management per Medicine Team Continue local wound care: Saline cleanse, Bactroban, Telfa, DSD Patient to follow up with Dr. Laguna upon discharge Podiatry will continue to follow
== END 2018-04-04 14:35 | disposition home health service (06) | DRG 300 ==
LOC: C.ER 09:25 → C.9E 10:48 → C.5S 13:50
PROVIDERS: ADMIT Internal Medicine; ATTEND Internal Medicine
PROC: 02HV33Z Insertion of Infusion Device into Superior Vena Cava, Percutaneous Approach (ICD-10-PCS; principal; 2018-03-26)
DX: I87.2 Venous insufficiency (chronic) (peripheral) (principal); S52.502A Unspecified fracture of the lower end of left radius, initial encounter for closed fracture; I13.0 Hypertensive heart and chronic kidney disease with heart failure and stage 1 through stage 4 chronic kidney disease, or unspecified chronic kidney disease; L03.90 Cellulitis, unspecified; L97.929 Non-pressure chronic ulcer of unspecified part of left lower leg with unspecified severity; L97.919 Non-pressure chronic ulcer of unspecified part of right lower leg with unspecified severity; S52.615A Nondisplaced fracture of left ulna styloid process, initial encounter for closed fracture; E11.622 Type 2 diabetes mellitus with other skin ulcer; E03.9 Hypothyroidism, unspecified; E11.22 Type 2 diabetes mellitus with diabetic chronic kidney disease; E78.00 Pure hypercholesterolemia, unspecified; I25.10 Atherosclerotic heart disease of native coronary artery without angina pectoris; I50.9 Heart failure, unspecified; G47.30 Sleep apnea, unspecified; J44.9 Chronic obstructive pulmonary disease, unspecified; M79.7 Fibromyalgia; N18.9 Chronic kidney disease, unspecified; W18.39XA Other fall on same level, initial encounter; Z86.711 Personal history of pulmonary embolism; Z96.653 Presence of artificial knee joint, bilateral; B95.62 Methicillin resistant Staphylococcus aureus infection as the cause of diseases classified elsewhere; M54.16 Radiculopathy, lumbar region; Z91.81 History of falling; Z79.4 Long term (current) use of insulin

== ENCOUNTER 2018-04-07 09:38 | Observation (INO) | payer MEDICARE ==
[2018-04-07 09:39] VITALS: BMI 54.8
--- NOTE | 2018-04-07 10:26 | C.PDOC ---
History Of Present Illness 57-YEAR-OLD MALE, PRESENTS TO THE EMERGENCY DEPARTMENT WITH COMPLAINTS OF RECUR DC AND L LEG ULCERS X 2 DAYS. MULT PRIOR ADMISSIONS FOR SAME. NO FEVER, CHILLS. PS UNABLE TO TAKE CARE OF WOUNDS DESPITE VNA. EXAM NAD NONTOXIC SKIN CHRONIC SKIN ULCERS B/L LOWER LEGS, DRESSING INTACT. CHRONIC ERYTHEMA PER PATIENT REMAINDER NEG MDM PT REQUESTING OXYCONTIN. ADVISED OF ED PAIN POLICY Time Seen by Provider: 04/07/18 10:16 Chief Complaint (Nursing): Lower Extremity Problem/Injury History Per: Patient History/Exam Limitations: no limitations Past Medical History Reviewed: Historical Data, Nursing Documentation, Vital Signs Vital Signs: Last Vital Signs Temp 98.4 F 04/07/18 10:00 Pulse 83 04/07/18 11:04 Resp 20 04/07/18 11:04 BP 149/87 04/07/18 11:04 Pulse Ox 99 04/07/18 12:47 - Medical History PMH: Arthritis, Asthma, Back Problems, CAD, CHF, COPD, Depression, Diabetes, Deep Vein Thrombosis, Fibromyalgia, Fractures, HTN, Hypercholesterolemia, Hyperthyroidism, Hypothyroidism, Peripheral Edema (+3 pitting ble), Pneumonia, Pulmonary Embolism, Chronic Kidney Disease (required HD in 2016 briefly), Sleep Apnea, Chronic Pain Surgical History: - [facility] Procedures ASSISTANCE WITH RESPIRATORY VENTILATION, >96 HRS, CPAP (09/04/16) BATHING/SHOWERING TECHNIQUES TREATMENT (07/29/17) CENTRAL VENOUS CATHETER PLACEMENT WITH GUIDANCE (07/08/15) CLOSED ENDOSCOPIC BIOPSY OF LARGE INTESTINE (03/22/14) CONTIN POS AIRWAY PRESSURE [CPAP] (02/21/07) DERMAL REGENERATIVE GRAFT (06/15/15) DRESSING TECHNIQUES TREATMENT (07/29/17) DX ULTRASOUND-HEART (05/14/06) ENDOSC POLYPECTOMY OF LG INTEST (03/22/14) ENDOSCOPIC BRONCHIAL BX (09/22/04) ESOPHAGOGASTRODUODENOSCOPY [EGD] W/CLOSED BIOPSY (03/22/14) EXCIS DEBRIDE OF WOUND, INFECT, OR BURN (06/15/15) EXCISION OF LEFT LOWER LEG SKIN, EXTERNAL APPROACH (09/15/17) EXTRACTION OF LEFT LOWER LEG SKIN, EXTERNAL APPROACH (02/16/18) FLUOROSCOPY OF SUPERIOR VENA CAVA, GUIDANCE (02/16/18) GAIT TRAINING/AMBULAT TREATMENT USING ASSIST EQUIPMENT (07/29/17) HETEROGRAFT TO SKIN (10/29/14) HOME MANAGEMENT TREATMENT (07/29/17) INJECT ANTIBIOTIC (05/29/06) INJECT ANTICOAGULANT (11/17/04) INJECT/INFUSE NEC (03/22/14) INSERTION OF INFUSION DEV INTO L AXILLA VEIN, PERC APPROACH (02/16/18) INSERTION OF INFUSION DEV INTO SUP VENA CAVA, PERC APPROACH (03/14/18) INSPECTION OF BLADDER, ENDO (06/22/16) INTRODUCE OF OTH THERAP SUBST INTO RESP TRACT, VIA OPENING (04/06/16) NEBULIZER THERAPY (09/18/14) NON-INVASIVE MECHANICAL VENTILATION (08/13/12) NONEXCIS DEBRID OF WOUND, INFECT, OR BURN (10/09/14) OCCUPATIONAL THERAPY (03/17/14) PERFORMANCE OF URINARY FILTRATION, MULTIPLE (09/04/16) PHYSICAL THERAPY NEC (03/17/14) REPLACE L LOW LEG SKIN W NONAUT SUB, FULL THICK, AIDS COUNSELOR (01/17/18) TRANSFUSE NONAUT FROZEN PLASMA IN PERIPH VEIN, PERC (09/04/16) ULTRASONOGRAPHY OF LEFT UPPER EXTREMITY VEINS, GUIDANCE (02/16/18) VENOUS CATHETERIZATION NEC (04/25/15) Family History: States: No Known Family Hx - Social History Hx Tobacco Use: No Hx Alcohol Use: No Hx Substance Use: No - Immunization History Hx Tetanus Toxoid Vaccination: No Hx Influenza Vaccination: Yes Hx Pneumococcal Vaccination: Yes (3 yrs ago) Review Of Systems Constitutional: Negative for: Fever, Chills Cardiovascular: Negative for: Chest Pain, Palpitations Respiratory: Negative for: Shortness of Breath Gastrointestinal: Negative for: Nausea, Vomiting Musculoskeletal: Positive for: Other (B/L leg wound and discharge) Neurological: Negative for: Weakness, Numbness Physical Exam - Physical Exam Appears: Non-toxic, No Acute Distress Skin: Normal Color, Warm, Dry, No Rash, Other (CHRONIC SKIN ULCERS B/L LOWER LEGS, DRESSING INTACT. CHRONIC ERYTHEMA PER PATIENT) Head: Normacephalic Eye(s): bilateral: PERRL Nose: Normal Oral Mucosa: Moist Lips: Normal Appearing Neck: Normal ROM Chest: Symmetrical Cardiovascular: Rhythm Regular, No Murmur Respiratory: Normal Breath Sounds, No Accessory Muscle Use Extremity: Normal ROM, No Deformity Neurological/Psych: Oriented x3, Normal Speech ED Course And Treatment - Laboratory Results Result Diagrams: 04/07/18 12:03 04/07/18 12:03 O2 Sat by Pulse Oximetry: 99 (RA) Pulse Ox Interpretation: Normal Progress - Re-Evaluation Re-evaluation Note: 04/07/18 10:24 D/W DR WALLACE AWARE OF ER FINDINGS WILL ADMIT - Data Reviewed Data Reviewed: Lab, Diagnostic imaging, EKG, Old records Medical Decision Making Medical Decision Making: MDM PT REQUESTING OXYCONTIN. ADVISED OF ED PAIN POLICY Disposition Counseled Patient/Family Regarding: Diagnosis - Disposition Disposition: HOSPITALIZED Disposition Time: 10:24 Condition: STABLE - POA Present On Arrival: None - Clinical Impression Clinical Impression: Chronic skin ulcer of lower leg - Scribe Statement The provider has reviewed the documentation as recorded by the Scribe (Airam Cantu) All medical record entries made by the Scribe were at my direction and personally dictated by me. I have reviewed the chart and agree that the record accurately reflects my personal performance of the history, physical exam, medical decision making, and the department course for this patient. I have also personally directed, reviewed, and agree with the discharge instructions and disposition.
[2018-04-07 12:08] LABS: BASO % 0.7 % (0.0-2.0); EOS # 0.2 K/uL (0.0-0.7); EOS % 2.8 % (0.0-4.0); HEMOGLOBIN 11.1 g/dL (12.0-18.0); LYMPH # 1.3 K/uL (1.0-4.3); LYMPH % 18.5 % (20.0-40.0); MEAN CELL VOLUME 79.2 fL (80.0-94.0); MEAN CORPUSCULAR HEMOGLOBIN 26.6 pg (27.0-31.0); MEAN CORPUSCULAR HGB CONC 33.5 g/dL (33.0-37.0); MEAN PLATELET VOLUME 9.6 fL (7.2-11.7); MONO # 0.5 K/uL (0.0-0.8); MONO % 7.2 % (0.0-10.0); NEUT # 4.9 K/uL (1.8-7.0); NEUT % 70.8 % (50.0-75.0); RBC 4.18 Mil/uL (4.40-5.90); RED CELL DISTRIBUTION WIDTH 19.6 % (11.5-14.5)
[2018-04-07 12:36] LABS: BLOOD UREA NITROGEN 15 mg/dL (9-20); GFR AFRICAN-AMERICAN > 60; GFR NON-AFRICAN AMERICAN > 60
[2018-04-07] MEDS ORDERED: oxyCODONE 80 mg ER Tab (oxyCONTIN) PO STA (15:31)
[2018-04-07] MEDS ORDERED: oxyCODONE 80 mg ER Tab (oxyCONTIN) PO ONE (15:36)
[2018-04-07] MEDS: Piperacill/Tazo 3.375gm in Dex 3.375 GM/50 ML BAG IVPB SCH ×2 (16:43→21:47)
[2018-04-07] MEDS: (Novolin R) Insulin Human Regular 100 units/ml vial SC SCH ×2 (17:16→21:22)
[2018-04-07] MEDS ORDERED: Oxycodone/Acetaminophen 5/325 mg Tab ONE (17:48)
[2018-04-07] MEDS: Oxycodone/Acetaminophen 5/325 mg Tab PO SCH ×2 (17:49→22:04)
[2018-04-07 20:54] LABS: INR 1.5; PROTHROMBIN TIME 16.5 SECONDS (9.7-12.2)
[2018-04-07] MEDS: Fluticasone-Salmeterol 250-50mcg Diskus IH SCH (21:00)
[2018-04-07] MEDS: oxyCODONE 80 mg ER Tab (oxyCONTIN) PO SCH (21:34)
[2018-04-07] MEDS ORDERED: oxyCODONE 80 mg ER Tab (oxyCONTIN) PO SCH (22:00)
[2018-04-08] MEDS: Piperacill/Tazo 3.375gm in Dex 3.375 GM/50 ML BAG IVPB SCH ×4 (02:35→21:12)
[2018-04-08] MEDS: oxyCODONE 80 mg ER Tab (oxyCONTIN) PO SCH ×4 (02:36→21:12)
[2018-04-08] MEDS: Levothyroxine 75 MCG TAB PO SCH (05:35)
[2018-04-08 07:54] LABS: INR 1.4; PROTHROMBIN TIME 15.6 SECONDS (9.7-12.2)
[2018-04-08] MEDS: (Novolin R) Insulin Human Regular 100 units/ml vial SC SCH ×4 (08:10→21:36)
[2018-04-08] MEDS: Oxycodone/Acetaminophen 5/325 mg Tab PO PRN ×4 (09:19→22:11)
[2018-04-08] MEDS: Multiple Vitamins Tab PO SCH (09:19)
[2018-04-08] MEDS: Pantoprazole 40 mg EC Tab PO SCH (09:19)
--- NOTE | 2018-04-08 11:03 | CP.PCM.CON ---
<Taniya Sun - Last Filed: 04/08/18 11:01> History of Present Illness - History of Present Illness History of Present Illness: Podiatry Consult Note- Dr. Laguna. 57 year old male PMHx includes chronic leg ulcers, well known to podiatry, seen at bedside with attending Dr. Laguna regarding chronic recurrent wound to left lower extremity. Patient states that he has pain to his lower extremity. Patient was seen by Dr. Laguna in the wound care center weekly. He denies recent fever, chills, weakness, or numbness. Patient denies any other pedal complaints at this time. Past Patient History - Infectious Disease Hx of Infectious Diseases: None - Tetanus Immunizations Tetanus Immunization: Unknown - Past Medical History & Family History Past Medical History?: Yes - Past Social History Smoking Status: Never Smoked - CARDIAC Hx Congestive Heart Failure: Yes Hx Hypercholesterolemia: Yes Hx Hypertension: Yes Hx Peripheral Edema: Yes (+3 pitting ble) - PULMONARY Hx Asthma: Yes Hx Chronic Obstructive Pulmonary Disease (COPD): Yes Hx Pneumonia: Yes Hx Pulmonary Embolism: Yes Hx Sleep Apnea: Yes - NEUROLOGICAL Hx Neurological Disorder: No - HEENT Hx HEENT Problems: No - RENAL Hx Chronic Kidney Disease: Yes (required HD in 2016 briefly) - ENDOCRINE/METABOLIC Hx Hyperthyroidism: Yes Hx Hypothyroidism: Yes - HEMATOLOGICAL/ONCOLOGICAL Hx Blood Disorders: No - INTEGUMENTARY Hx Dermatological Problems: Yes Other/Comment: both leggs discolored,. CHRONIC LEG ULCERS - MUSCULOSKELETAL/RHEUMATOLOGICAL Hx Arthritis: Yes Hx Fractures: Yes - GASTROINTESTINAL Hx Gastrointestinal Disorders: (reflux obese) - GENITOURINARY/GYNECOLOGICAL Hx Reproductive Disorders: No - PSYCHIATRIC Hx Depression: Yes Hx Substance Use: No - SURGICAL HISTORY Hx Surgeries: Yes Hx Orthopedic Surgery: Yes (bilateral knee replacement) Other/Comment: total left knee - 1998. right ankle screws - 1987. right hip shyam - 1982,. LEG WOUND DEBRIDEMENTS - ANESTHESIA Hx Anesthesia: Yes Hx Anesthesia Reactions: No Hx Malignant Hyperthermia: No Meds Allergies/Adverse Reactions: Allergies Allergy/AdvReac Type Severity Reaction Status Date / Time No Known Allergies Allergy Verified 03/14/18 09:48 - Medications Medications: Current Medications Acetaminophen (Tylenol 325mg Tab) 650 mg PO Q6 PRN PRN Reason: Headache Docusate Sodium (Colace) 100 mg PO TID [facility] Last Admin: 05/10/18 09:20 Dose: Not Given Piperacillin Sod/Tazobactam Sod (Zosyn 3.375 Gm Iv Premix) 3.375 gm in 50 mls @ 100 mls/hr IVPB Q6H [facility] PRN Reason: Protocol Last Admin: 04/08/18 10:00 Dose: 100 mls/hr Insulin Human Regular (Novolin R) 0 unit SC ACHS [facility] PRN Reason: Protocol Last Admin: 04/08/18 08:10 Dose: Not Given Levothyroxine Sodium (Synthroid) 75 mcg PO 0630 [facility] Last Admin: 04/08/18 05:35 Dose: 75 mcg Metformin HCl (Glucophage Xr) 1,000 mg PO BID [facility] Last Admin: 04/08/18 09:21 Dose: 1,000 mg Montelukast Sodium (Singulair) 10 mg PO HS [facility] Last Admin: 04/07/18 21:35 Dose: 10 mg Multivitamins (Hexavitamin) 1 tab PO DAILY [facility] Last Admin: 04/08/18 09:19 Dose: 1 tab Oxycodone HCl (Oxycontin Extended Release Tab) 80 mg PO Q6H [facility] Last Admin: 04/08/18 08:39 Dose: 80 mg Oxycodone/Acetaminophen (Percocet 5/325 Mg Tab) 2 tab PO Q4H PRN PRN Reason: Pain, severe (8-10) Stop: 04/11/18 09:16 Last Admin: 04/08/18 09:19 Dose: 2 tab Pantoprazole Sodium (Protonix Ec Tab) 40 mg PO DAILY [facility] Last Admin: 04/08/18 09:19 Dose: 40 mg Fluticasone/Salmeterol (Advair Diskus 250/50) 1 puff IH RQ12 [facility] Physical Exam - Constitutional Appears: Well, Non-toxic, No Acute Distress - Extremities Exam Additional comments: Lower extremity focused exam: No strikethrough noted to outer layer of dressings bilaterally. Vasc: Non-palpable pedal pulses due to edema B/L, TG warm to warm, CFT < 3 sec to all digits, +1 pitting edema to bilateral lower extremities distal to tibial tuberosity Derm: Localized mild non-streaking, blanchable periwound erythema to mid-calf level B/L. Left: Multiple continuous open ulcerations extending from tibial tuberosity to medial malleolus noted to the mid leg circumferentially and posterior ulceration undergoing early stage re-epithelialization. Moderate active sanguinous drainage, wound base is 100% granular. No shital-wound macerations. No purulence noted, moderate malodor noted. Right: Open superficial ulceration noted to the medial aspect of leg at mid- calf level approximately 3.9 x 3.1 cm. Ulceration margins undergoing early stage re-epithelialization with no active sero-sanguinous drainage, wound base is 100% granular with no shital-wound macerations. No purulence noted, moderate malodor noted. Neuro: protective sensation mildly diminished MUSC: pain on palpation of posterior and medial legs B/L, left > right - Neurological Exam Neurological exam: Alert, Oriented x3 - Psychiatric Exam Psychiatric exam: Normal Affect, Normal Mood Results - Vital Signs Recent Vital Signs: Last Vital Signs Temp 98.2 F 04/08/18 07:15 Pulse 63 04/08/18 07:15 Resp 20 04/08/18 07:15 BP 115/74 04/08/18 07:15 Pulse Ox 95 04/08/18 07:15 - Labs Result Diagrams: 04/07/18 12:03 04/07/18 12:03 Labs: Laboratory Results - last 24 hr 04/07/18 04/07/18 04/07/18 12:03 12:03 17:13 WBC 7.0 RBC 4.18 L Hgb 11.1 L Hct 33.1 L MCV 79.2 L MCH 26.6 L MCHC 33.5 RDW 19.6 H Plt Count 153 MPV 9.6 Neut % (Auto) 70.8 Lymph % (Auto) 18.5 L [place] % (Auto) 7.2 Eos % (Auto) 2.8 Baso % (Auto) 0.7 Neut # (Auto) 4.9 Lymph # (Auto) 1.3 [place] # (Auto) 0.5 Eos # (Auto) 0.2 Baso # (Auto) 0.0 PT INR Sodium 145 Potassium 4.0 Chloride 102 Carbon Dioxide 33 H Anion Gap 14 BUN 15 Creatinine 0.8 Est GFR ( Amer) > 60 Est GFR (Non-Af Amer) > 60 POC Glucose (mg/dL) 139 H Random Glucose 97 Calcium 9.0 04/07/18 04/07/18 04/08/18 20:44 21:12 06:21 WBC RBC Hgb Hct MCV MCH MCHC RDW Plt Count MPV Neut % (Auto) Lymph % (Auto) [place] % (Auto) Eos % (Auto) Baso % (Auto) Neut # (Auto) Lymph # (Auto) [place] # (Auto) Eos # (Auto) Baso # (Auto) PT 16.5 H INR 1.5 Sodium Potassium Chloride Carbon Dioxide Anion Gap BUN Creatinine Est GFR ( Amer) Est GFR (Non-Af Amer) POC Glucose (mg/dL) 148 H 100 Random Glucose Calcium 04/08/18 07:24 WBC RBC Hgb Hct MCV MCH MCHC RDW Plt Count MPV Neut % (Auto) Lymph % (Auto) [place] % (Auto) Eos % (Auto) Baso % (Auto) Neut # (Auto) Lymph # (Auto) [place] # (Auto) Eos # (Auto) Baso # (Auto) PT 15.6 H INR 1.4 Sodium Potassium Chloride Carbon Dioxide Anion Gap BUN Creatinine Est GFR ( Amer) Est GFR (Non-Af Amer) POC Glucose (mg/dL) Random Glucose Calcium Assessment & Plan - Assessment and Plan (Free Text) Assessment: 57 year old male with bilateral chronic, recurrent wounds to the left lower extremity Plan: Patient seen and evaluated with attending Dr. Laguna chart, labs, vitals;afebrile WBC 7.0 (04/07/18) Left leg Wound cx: MRSA, E coli, E Cloacae Ssp- at last visit Continue medical management per Medicine Team Continue local wound care: Saline cleanse, Bactroban, Telfa, DSD Patient to follow up with Dr. Laguna upon discharge Podiatry will continue to follow <Casey Laguna - Last Filed: 04/09/18 06:46> Meds - Medications Medications: Current Medications Acetaminophen (Tylenol 325mg Tab) 650 mg PO Q6 PRN PRN Reason: Headache Docusate Sodium (Colace) 100 mg PO TID [facility] Last Admin: 04/08/18 17:19 Dose: 100 mg Piperacillin Sod/Tazobactam Sod (Zosyn 3.375 Gm Iv Premix) 3.375 gm in 50 mls @ 100 mls/hr IVPB Q6H [facility] PRN Reason: Protocol Last Admin: 04/09/18 02:04 Dose: 100 mls/hr Insulin Human Regular (Novolin R) 0 unit SC ACHS [facility] PRN Reason: Protocol Last Admin: 04/08/18 21:36 Dose: Not Given Levothyroxine Sodium (Synthroid) 75 mcg PO 0630 [facility] Last Admin: 04/09/18 06:06 Dose: 75 mcg Metformin HCl (Glucophage Xr) 1,000 mg PO BID [facility] Last Admin: 04/08/18 17:23 Dose: 1,000 mg Montelukast Sodium (Singulair) 10 mg PO HS [facility] Last Admin: 04/08/18 21:12 Dose: 10 mg Multivitamins (Hexavitamin) 1 tab PO DAILY [facility] Last Admin: 04/08/18 09:19 Dose: 1 tab Oxycodone HCl (Oxycontin Extended Release Tab) 80 mg PO Q6H [facility] Last Admin: 04/09/18 03:35 Dose: 80 mg Oxycodone/Acetaminophen (Percocet 5/325 Mg Tab) 2 tab PO Q4H PRN PRN Reason: Pain, severe (8-10) Stop: 04/11/18 09:16 Last Admin: 04/09/18 06:06 Dose: 2 tab Pantoprazole Sodium (Protonix Ec Tab) 40 mg PO DAILY [facility] Last Admin: 04/08/18 09:19 Dose: 40 mg Fluticasone/Salmeterol (Advair Diskus 250/50) 1 puff IH RQ12 [facility] Last Admin: 04/08/18 19:03 Dose: Not Given Results - Vital Signs Recent Vital Signs: Last Vital Signs Temp 97.9 F 04/08/18 23:52 Pulse 59 L 04/08/18 23:52 Resp 20 04/08/18 23:52 BP 135/83 04/08/18 23:52 Pulse Ox 98 04/08/18 23:52 - Labs Result Diagrams: 04/07/18 12:03 04/07/18 12:03 Labs: Laboratory Results - last 24 hr 04/08/18 04/08/18 04/08/18 07:24 16:25 21:18 PT 15.6 H INR 1.4 POC Glucose (mg/dL) 82 116 H Assessment & Plan - Assessment and Plan (Free Text) Plan: Pt seen at bedside with resident .labs and chart reviewed . agree with above findings .Pt will be seen and managed for chronic wounds while in hospital . Prognosis is poor while patient is living at home and needs long-term placement and this has been discussed with patient ./Dr Marquita Laguna
[2018-04-08] MEDS: Fluticasone-Salmeterol 250-50mcg Diskus IH SCH ×2 (11:37→19:03)
--- NOTE | 2018-04-08 17:25 | CP.PCM.CON ---
History of Present Illness - History of Present Illness History of Present Illness: 57-year-old male, PMHx includes chronic leg ulcers, presents to the emergency with exacerbation of leg ulcers Has large infected ulcers bilat lower extremities which were recently treated here wound care and cultures pending - Medical History PMH: Arthritis, Asthma, Back Problems, CAD, CHF, COPD, Depression, Diabetes, Deep Vein Thrombosis, Fibromyalgia, Fractures, HTN, Hypercholesterolemia, Hyperthyroidism, Hypothyroidism, Peripheral Edema (+3 pitting ble), Pneumonia, Pulmonary Embolism, Chronic Kidney Disease (required HD in 2016 briefly), Sleep Apnea, Chronic Pain Surgical History: - [facility] Procedures ASSISTANCE WITH RESPIRATORY VENTILATION, >96 HRS, CPAP (09/04/16) BATHING/SHOWERING TECHNIQUES TREATMENT (07/29/17) CENTRAL VENOUS CATHETER PLACEMENT WITH GUIDANCE (07/08/15) CLOSED ENDOSCOPIC BIOPSY OF LARGE INTESTINE (03/22/14) CONTIN POS AIRWAY PRESSURE [CPAP] (02/21/07) DERMAL REGENERATIVE GRAFT (06/15/15) DRESSING TECHNIQUES TREATMENT (07/29/17) DX ULTRASOUND-HEART (05/14/06) ENDOSC POLYPECTOMY OF LG INTEST (03/22/14) ENDOSCOPIC BRONCHIAL BX (09/22/04) ESOPHAGOGASTRODUODENOSCOPY [EGD] W/CLOSED BIOPSY (03/22/14) EXCIS DEBRIDE OF WOUND, INFECT, OR BURN (06/15/15) EXCISION OF LEFT LOWER LEG SKIN, EXTERNAL APPROACH (09/15/17) EXTRACTION OF LEFT LOWER LEG SKIN, EXTERNAL APPROACH (01/17/18) GAIT TRAINING/AMBULAT TREATMENT USING ASSIST EQUIPMENT (07/29/17) HETEROGRAFT TO SKIN (10/29/14) HOME MANAGEMENT TREATMENT (07/29/17) INJECT ANTIBIOTIC (05/29/06) INJECT ANTICOAGULANT (11/17/04) INJECT/INFUSE NEC (03/22/14) INSERTION OF INFUSION DEV INTO SUP VENA CAVA, PERC APPROACH (01/17/18) INSPECTION OF BLADDER, ENDO (06/22/16) INTRODUCE OF OTH THERAP SUBST INTO RESP TRACT, VIA OPENING (04/06/16) NEBULIZER THERAPY (09/18/14) NON-INVASIVE MECHANICAL VENTILATION (08/13/12) NONEXCIS DEBRID OF WOUND, INFECT, OR BURN (10/09/14) OCCUPATIONAL THERAPY (03/17/14) PERFORMANCE OF URINARY FILTRATION, MULTIPLE (09/04/16) PHYSICAL THERAPY NEC (03/17/14) REPLACE L LOW LEG SKIN W NONAUT SUB, FULL THICK, 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) TRANSFUSE NONAUT FROZEN PLASMA IN PERIPH VEIN, PERC (09/04/16) VENOUS CATHETERIZATION NEC (04/25/15) Review of Systems - Constitutional Constitutional: As Per HPI, Anorexia, Chills, Fever, Malaise - EENT Eyes: absent: As Per HPI, Blind Spots, Blurred Vision, Change in Vision, Decreased Night Vision, Diplopia, Discharge, Dry Eye, Exophthalmos, Floaters, Irritation, Itchy Eyes, Loss of Peripheral Vision, Pain, Photophobia, Requires Corrective Lenses, Sees Flashes, Spots in Vision, Tunnel Vision, Other Visual Disturbances, Loss of Vision, Other Ears: absent: As Per HPI, Decreased Hearing, Ear Discharge, Ear Pain, Tinnitus, Abnormal Hearing, Disequilibrium, Dizziness, Other Nose/Mouth/Throat: absent: As Per HPI, Epistaxis, Nasal Congestion, Nasal Discharge, Nasal Obstruction, Nasal Trauma, Nose Pain, Post Nasal Drip, Sinus Pain, Sinus Pressure, Bleeding Gums, Change in Voice, Dental Pain, Dry Mouth, Dysphagia, Halitosis, Hoarsness, Lip Swelling, Mouth Lesions, Mouth Pain, Odynophagia, Sore Throat, Throat Swelling, Tongue Swelling, Facial Pain, Neck Pain, Neck Mass, Other - Cardiovascular Cardiovascular: As Per HPI - Respiratory Respiratory: As Per HPI, Cough, Dyspnea. absent: Hemoptysis - Gastrointestinal Gastrointestinal: absent: As Per HPI, Abdominal Pain, Belching, Bloating, Change in Bowel Habits, Change in Stool Character, Coffee Ground Emesis, Constipation, Cramping, Diarrhea, Dyspepsia, Dysphagia, Early Satiety, Excessive Flatus, Fecal Incontinence, Heartburn, Hematemesis, Hematochezia, Loose Stools, Melena, Nausea, Odynophagia, Temesmus, Vomiting, Other - Genitourinary Genitourinary: absent: As Per HPI, Change in Urinary Stream, Difficulty Urinating, Dysuria, Flank Pain, Hematuria, Pyuria, Nocturia, Urinary Incontinence, Urinary Frequency, Urinary Hesitance, Urinary Urgency, Voiding Freq/Small Amts, Freq UTI, Hx Renal/Bladder Calculi, Hx /Renal Surgery, Bladder Distension, Other - Musculoskeletal Musculoskeletal: As Per HPI - Integumentary Integumentary: As Per HPI, Skin Pain, Wounds - Neurological Neurological: absent: As Per HPI, Abnormal Gait, Abnormal Hearing, Abnormal Movements, Abnormal Speech, Behavioral Changes, Burning Sensations, Confusion, Convulsions, Disequilibrium, Dizziness, Numbness, Focal Weakness, Frequent Falls , Headaches, Lack of Coordination, Loss of Vision, Memory Loss, Paresthesias, Radicular Pain, Restless Legs, Sensory Deficit, Syncope, Tingling, Tremor, Vertigo, Weakness, Other Visual Disturbances, Other - Psychiatric Psychiatric: absent: As Per HPI, Abnormal Sleep Pattern, Anhedonia, Anxiety, Auditory Hallucinations, Behavioral Changes, Change in Appetite, Change in Libido, Confusion, Depression, Difficulty Concentrating, Hallucinations, Homicidal Ideation, Hopelessness, Irritability, Memory Loss, Mood Swings, Panic Attacks, Paranoia, Suicidal Ideation, Visual Hallucinations, Tactile Hallucinations, Other - Endocrine Endocrine: absent: As Per HPI, Change in Body Appearance, Change in Libido, Cold Intolorance, Deepening of Voice, Excessive Sweating, Fatigue, Flushing, Heat Intolorance, Increase in Ring/Shoe/Hat Size, Palpitations, Polydipsia, Polyphagia, Polyuria, Other - Hematologic/Lymphatic Hematologic: absent: As Per HPI, Easy Bleeding, Easy Bruising, Lymphadenopathy, Other Past Patient History - Infectious Disease Hx of Infectious Diseases: None - Tetanus Immunizations Tetanus Immunization: Unknown - Past Medical History & Family History Past Medical History?: Yes - Past Social History Smoking Status: Never Smoked - CARDIAC Hx Congestive Heart Failure: Yes Hx Hypercholesterolemia: Yes Hx Hypertension: Yes Hx Peripheral Edema: Yes (+3 pitting ble) - PULMONARY Hx Asthma: Yes Hx Chronic Obstructive Pulmonary Disease (COPD): Yes Hx Pneumonia: Yes Hx Pulmonary Embolism: Yes Hx Sleep Apnea: Yes - NEUROLOGICAL Hx Neurological Disorder: No - HEENT Hx HEENT Problems: No - RENAL Hx Chronic Kidney Disease: Yes (required HD in 2016 briefly) - ENDOCRINE/METABOLIC Hx Hyperthyroidism: Yes Hx Hypothyroidism: Yes - HEMATOLOGICAL/ONCOLOGICAL Hx Blood Disorders: No - INTEGUMENTARY Hx Dermatological Problems: Yes Other/Comment: both leggs discolored,. CHRONIC LEG ULCERS - MUSCULOSKELETAL/RHEUMATOLOGICAL Hx Arthritis: Yes Hx Fractures: Yes - GASTROINTESTINAL Hx Gastrointestinal Disorders: (reflux obese) - GENITOURINARY/GYNECOLOGICAL Hx Reproductive Disorders: No - PSYCHIATRIC Hx Depression: Yes Hx Substance Use: No - SURGICAL HISTORY Hx Surgeries: Yes Hx Orthopedic Surgery: Yes (bilateral knee replacement) Other/Comment: total left knee - 1998. right ankle screws - 1987. right hip shyam - 1982,. LEG WOUND DEBRIDEMENTS - ANESTHESIA Hx Anesthesia: Yes Hx Anesthesia Reactions: No Hx Malignant Hyperthermia: No Meds Allergies/Adverse Reactions: Allergies Allergy/AdvReac Type Severity Reaction Status Date / Time No Known Allergies Allergy Verified 03/14/18 09:48 - Medications Medications: Current Medications Acetaminophen (Tylenol 325mg Tab) 650 mg PO Q6 PRN PRN Reason: Headache Docusate Sodium (Colace) 100 mg PO TID [facility] Last Admin: 04/08/18 17:19 Dose: 100 mg Piperacillin Sod/Tazobactam Sod (Zosyn 3.375 Gm Iv Premix) 3.375 gm in 50 mls @ 100 mls/hr IVPB Q6H [facility] PRN Reason: Protocol Last Admin: 04/08/18 14:48 Dose: 100 mls/hr Insulin Human Regular (Novolin R) 0 unit SC ACHS [facility] PRN Reason: Protocol Last Admin: 04/08/18 16:44 Dose: Not Given Levothyroxine Sodium (Synthroid) 75 mcg PO 0630 [facility] Last Admin: 04/08/18 05:35 Dose: 75 mcg Metformin HCl (Glucophage Xr) 1,000 mg PO BID [facility] Last Admin: 04/08/18 17:23 Dose: 1,000 mg Montelukast Sodium (Singulair) 10 mg PO HS [facility] Last Admin: 04/07/18 21:35 Dose: 10 mg Multivitamins (Hexavitamin) 1 tab PO DAILY [facility] Last Admin: 04/08/18 09:19 Dose: 1 tab Oxycodone HCl (Oxycontin Extended Release Tab) 80 mg PO Q6H [facility] Last Admin: 04/08/18 14:52 Dose: 80 mg Oxycodone/Acetaminophen (Percocet 5/325 Mg Tab) 2 tab PO Q4H PRN PRN Reason: Pain, severe (8-10) Stop: 04/11/18 09:16 Last Admin: 04/08/18 17:19 Dose: 2 tab Pantoprazole Sodium (Protonix Ec Tab) 40 mg PO DAILY [facility] Last Admin: 04/08/18 09:19 Dose: 40 mg Fluticasone/Salmeterol (Advair Diskus 250/50) 1 puff IH RQ12 [facility] Last Admin: 04/08/18 11:37 Dose: 1 puff Warfarin Sodium (Coumadin) 10 mg PO 1800 [facility] Stop: 04/08/18 18:01 Last Admin: 04/08/18 17:20 Dose: 10 mg Warfarin Sodium (Coumadin) 2.5 mg PO 1800 [facility] Stop: 04/08/18 18:01 Last Admin: 04/08/18 17:20 Dose: 2.5 mg Physical Exam - Constitutional Appears: Chronically Ill - Head Exam Head Exam: ATRAUMATIC - Eye Exam Eye Exam: PERRL. absent: Scleral icterus - ENT Exam ENT Exam: Mucous Membranes Dry, Normal External Ear Exam - Neck Exam Neck exam: Negative for: Lymphadenopathy - Respiratory Exam Respiratory Exam: Decreased Breath Sounds - Cardiovascular Exam Cardiovascular Exam: REGULAR RHYTHM - GI/Abdominal Exam GI & Abdominal Exam: Diminished Bowel Sounds, Soft. absent: Tenderness - Rectal Exam Rectal Exam: Deferred - Exam Exam: NORMAL INSPECTION - Extremities Exam Extremities exam: Positive for: pedal edema Additional comments: Lower extremity focused exam: No strikethrough noted to outer layer of dressings bilaterally. Vasc: Non-palpable pedal pulses due to edema B/L, TG warm to warm, CFT < 3 sec to all digits, +1 pitting edema to bilateral lower extremities distal to tibial tuberosity Derm: Localized mild non-streaking, blanchable periwound erythema to mid-calf level B/L. Left: Multiple continuous open ulcerations extending from tibial tuberosity to medial malleolus noted to the mid leg circumferentially and posterior ulceration undergoing early stage re-epithelialization. Moderate active sanguinous drainage, wound base is 100% granular. No shital-wound macerations. No purulence noted, moderate malodor noted. Right: Open superficial ulceration noted to the medial aspect of leg at mid- calf level approximately 3.9 x 3.1 cm. Ulceration margins undergoing early stage re-epithelialization with no active sero-sanguinous drainage, wound base is 100% granular with no shital-wound macerations. No purulence noted, moderate malodor noted. Neuro: protective sensation mildly diminished MUSC: pain on palpation of posterior and medial legs B/L, left > right - Back Exam Back exam: absent: CVA tenderness (L), CVA tenderness (R) - Neurological Exam Neurological exam: Alert, CN II-XII Intact, Oriented x3, Reflexes Normal - Psychiatric Exam Psychiatric exam: Normal Mood - Skin Skin Exam: Abrasion, Warm Results - Vital Signs Recent Vital Signs: Last Vital Signs Temp 98 F 04/08/18 16:00 Pulse 65 04/08/18 16:00 Resp 20 04/08/18 16:00 BP 128/80 04/08/18 16:00 Pulse Ox 98 04/08/18 16:00 - Labs Result Diagrams: 04/07/18 12:03 04/07/18 12:03 Labs: Laboratory Results - last 24 hr 04/07/18 04/07/18 04/08/18 20:44 21:12 06:21 PT 16.5 H INR 1.5 POC Glucose (mg/dL) 148 H 100 04/08/18 04/08/18 07:24 16:25 PT 15.6 H INR 1.4 POC Glucose (mg/dL) 82 Assessment & Plan (1) Chronic skin ulcer of lower leg Status: Acute - Assessment and Plan (Free Text) Assessment: cont rx will obtain bone scan to r/o OM consider CT and or MRI legs
--- NOTE | 2018-04-08 18:41 | CP.PCM.PN ---
Subjective - Date & Time of Evaluation Date of Evaluation: 04/08/18 Time of Evaluation: 11:00 - Subjective Subjective: Alert, awake, no sob or chest pains noted. Objective - Vital Signs/Intake and Output Vital Signs (last 24 hours): Temp Pulse Resp BP Pulse Ox 98 F 65 20 128/80 98 04/08/18 16:00 04/08/18 16:00 04/08/18 16:00 04/08/18 16:00 04/08/18 16:00 - Medications Medications: Current Medications Acetaminophen (Tylenol 325mg Tab) 650 mg PO Q6 PRN PRN Reason: Headache Docusate Sodium (Colace) 100 mg PO TID [facility] Last Admin: 04/08/18 17:19 Dose: 100 mg Piperacillin Sod/Tazobactam Sod (Zosyn 3.375 Gm Iv Premix) 3.375 gm in 50 mls @ 100 mls/hr IVPB Q6H [facility] PRN Reason: Protocol Last Admin: 04/08/18 14:48 Dose: 100 mls/hr Insulin Human Regular (Novolin R) 0 unit SC ACHS [facility] PRN Reason: Protocol Last Admin: 04/08/18 16:44 Dose: Not Given Levothyroxine Sodium (Synthroid) 75 mcg PO 0630 [facility] Last Admin: 04/08/18 05:35 Dose: 75 mcg Metformin HCl (Glucophage Xr) 1,000 mg PO BID [facility] Last Admin: 04/08/18 17:23 Dose: 1,000 mg Montelukast Sodium (Singulair) 10 mg PO HS [facility] Last Admin: 04/07/18 21:35 Dose: 10 mg Multivitamins (Hexavitamin) 1 tab PO DAILY [facility] Last Admin: 04/08/18 09:19 Dose: 1 tab Oxycodone HCl (Oxycontin Extended Release Tab) 80 mg PO Q6H [facility] Last Admin: 04/08/18 14:52 Dose: 80 mg Oxycodone/Acetaminophen (Percocet 5/325 Mg Tab) 2 tab PO Q4H PRN PRN Reason: Pain, severe (8-10) Stop: 04/11/18 09:16 Last Admin: 04/08/18 17:19 Dose: 2 tab Pantoprazole Sodium (Protonix Ec Tab) 40 mg PO DAILY [facility] Last Admin: 04/08/18 09:19 Dose: 40 mg Fluticasone/Salmeterol (Advair Diskus 250/50) 1 puff IH RQ12 [facility] Last Admin: 04/08/18 11:37 Dose: 1 puff - Labs Labs: 04/07/18 12:03 04/07/18 12:03 PT 15.6 SECONDS (9.7-12.2) H 04/08/18 07:24 INR 1.4 04/08/18 07:24 Assessment and Plan - Assessment and Plan (Free Text) Assessment: Patient is seen with DR Albright, alert and orientedx3, no acute distress. Plan to discharge home on pain medicatins given by DR Christensen. Patient agreed to go home in am. Will follow up.
[2018-04-09] MEDS: Piperacill/Tazo 3.375gm in Dex 3.375 GM/50 ML BAG IVPB SCH ×3 (02:04→15:21)
[2018-04-09] MEDS: Oxycodone/Acetaminophen 5/325 mg Tab PO PRN ×4 (02:05→17:02)
[2018-04-09] MEDS: oxyCODONE 80 mg ER Tab (oxyCONTIN) PO SCH ×3 (03:35→14:32)
[2018-04-09] MEDS: Levothyroxine 75 MCG TAB PO SCH (06:06)
[2018-04-09] MEDS: Fluticasone-Salmeterol 250-50mcg Diskus IH SCH (07:36)
[2018-04-09] MEDS: (Novolin R) Insulin Human Regular 100 units/ml vial SC SCH ×3 (07:53→17:07)
[2018-04-09] MEDS: Multiple Vitamins Tab PO SCH (09:03)
[2018-04-09] MEDS: Pantoprazole 40 mg EC Tab PO SCH (09:03)
--- NOTE | 2018-04-09 09:07 | CP.PCM.PN ---
Subjective - Date & Time of Evaluation Date of Evaluation: 04/08/18 Time of Evaluation: 19:00 - Subjective Subjective: PT SEEN AND EXAMINED TODAY Objective - Vital Signs/Intake and Output Vital Signs (last 24 hours): Temp Pulse Resp BP Pulse Ox 97.8 F 62 18 138/88 96 04/09/18 07:00 04/09/18 07:00 04/09/18 07:00 04/09/18 07:00 04/09/18 07:00 Intake and Output: 04/09/18 04/09/18 06:59 18:59 Intake Total 500 Output Total 1200 Balance -700 - Medications Medications: Current Medications Acetaminophen (Tylenol 325mg Tab) 650 mg PO Q6 PRN PRN Reason: Headache Docusate Sodium (Colace) 100 mg PO TID [facility] Last Admin: 04/09/18 09:03 Dose: Not Given Piperacillin Sod/Tazobactam Sod (Zosyn 3.375 Gm Iv Premix) 3.375 gm in 50 mls @ 100 mls/hr IVPB Q6H [facility] PRN Reason: Protocol Last Admin: 04/09/18 08:30 Dose: 100 mls/hr Insulin Human Regular (Novolin R) 0 unit SC ACHS [facility] PRN Reason: Protocol Last Admin: 04/09/18 07:53 Dose: Not Given Levothyroxine Sodium (Synthroid) 75 mcg PO 0630 [facility] Last Admin: 04/09/18 06:06 Dose: 75 mcg Metformin HCl (Glucophage Xr) 1,000 mg PO BID [facility] Last Admin: 04/09/18 09:02 Dose: 1,000 mg Montelukast Sodium (Singulair) 10 mg PO HS [facility] Last Admin: 04/08/18 21:12 Dose: 10 mg Multivitamins (Hexavitamin) 1 tab PO DAILY [facility] Last Admin: 04/09/18 09:03 Dose: 1 tab Oxycodone HCl (Oxycontin Extended Release Tab) 80 mg PO Q6H [facility] Last Admin: 04/09/18 08:34 Dose: 80 mg Oxycodone/Acetaminophen (Percocet 5/325 Mg Tab) 2 tab PO Q4H PRN PRN Reason: Pain, severe (8-10) Stop: 04/11/18 09:16 Last Admin: 04/09/18 06:06 Dose: 2 tab Pantoprazole Sodium (Protonix Ec Tab) 40 mg PO DAILY [facility] Last Admin: 04/09/18 09:03 Dose: 40 mg Fluticasone/Salmeterol (Advair Diskus 250/50) 1 puff IH RQ12 [facility] Last Admin: 04/09/18 07:36 Dose: 1 puff - Labs Labs: 04/07/18 12:03 04/07/18 12:03 PT 15.6 SECONDS (9.7-12.2) H 04/08/18 07:24 INR 1.4 04/08/18 07:24
--- NOTE | 2018-04-09 09:08 | CP.PCM.PN ---
Subjective - Date & Time of Evaluation Date of Evaluation: 04/09/18 Time of Evaluation: 19:00 - Subjective Subjective: PT SEEN AND EXAMINED TODAY Objective - Vital Signs/Intake and Output Vital Signs (last 24 hours): Temp Pulse Resp BP Pulse Ox 97.8 F 62 18 138/88 96 04/09/18 07:00 04/09/18 07:00 04/09/18 07:00 04/09/18 07:00 04/09/18 07:00 Intake and Output: 04/09/18 04/09/18 06:59 18:59 Intake Total 500 Output Total 1200 Balance -700 - Medications Medications: Current Medications Acetaminophen (Tylenol 325mg Tab) 650 mg PO Q6 PRN PRN Reason: Headache Docusate Sodium (Colace) 100 mg PO TID [facility] Last Admin: 04/09/18 09:03 Dose: Not Given Piperacillin Sod/Tazobactam Sod (Zosyn 3.375 Gm Iv Premix) 3.375 gm in 50 mls @ 100 mls/hr IVPB Q6H [facility] PRN Reason: Protocol Last Admin: 04/09/18 08:30 Dose: 100 mls/hr Insulin Human Regular (Novolin R) 0 unit SC ACHS [facility] PRN Reason: Protocol Last Admin: 04/09/18 07:53 Dose: Not Given Levothyroxine Sodium (Synthroid) 75 mcg PO 0630 [facility] Last Admin: 04/09/18 06:06 Dose: 75 mcg Metformin HCl (Glucophage Xr) 1,000 mg PO BID [facility] Last Admin: 04/09/18 09:02 Dose: 1,000 mg Montelukast Sodium (Singulair) 10 mg PO HS [facility] Last Admin: 04/08/18 21:12 Dose: 10 mg Multivitamins (Hexavitamin) 1 tab PO DAILY [facility] Last Admin: 04/09/18 09:03 Dose: 1 tab Oxycodone HCl (Oxycontin Extended Release Tab) 80 mg PO Q6H [facility] Last Admin: 04/09/18 08:34 Dose: 80 mg Oxycodone/Acetaminophen (Percocet 5/325 Mg Tab) 2 tab PO Q4H PRN PRN Reason: Pain, severe (8-10) Stop: 04/11/18 09:16 Last Admin: 04/09/18 06:06 Dose: 2 tab Pantoprazole Sodium (Protonix Ec Tab) 40 mg PO DAILY [facility] Last Admin: 04/09/18 09:03 Dose: 40 mg Fluticasone/Salmeterol (Advair Diskus 250/50) 1 puff IH RQ12 [facility] Last Admin: 04/09/18 07:36 Dose: 1 puff - Labs Labs: 04/07/18 12:03 04/07/18 12:03 PT 15.6 SECONDS (9.7-12.2) H 04/08/18 07:24 INR 1.4 04/08/18 07:24
[2018-04-09 16:35] VITALS: BP 145/80; PULSE 71; RESP 20; TEMP 97.9; O2SAT 98
== END 2018-04-09 20:06 | disposition home or self-care (01) ==
LOC: C.ER 09:38 → C.9E 10:34 → C.5S 18:42
PROVIDERS: ADMIT Internal Medicine; ATTEND Internal Medicine
DX: E11.622 Type 2 diabetes mellitus with other skin ulcer (principal); L97.929 Non-pressure chronic ulcer of unspecified part of left lower leg with unspecified severity; N18.9 Chronic kidney disease, unspecified; J44.9 Chronic obstructive pulmonary disease, unspecified; I13.0 Hypertensive heart and chronic kidney disease with heart failure and stage 1 through stage 4 chronic kidney disease, or unspecified chronic kidney disease; I50.9 Heart failure, unspecified; E11.22 Type 2 diabetes mellitus with diabetic chronic kidney disease; E03.9 Hypothyroidism, unspecified; I25.10 Atherosclerotic heart disease of native coronary artery without angina pectoris; K21.9 Gastro-esophageal reflux disease without esophagitis; E78.00 Pure hypercholesterolemia, unspecified; Z86.711 Personal history of pulmonary embolism; Z87.01 Personal history of pneumonia (recurrent); Z96.653 Presence of artificial knee joint, bilateral; G47.30 Sleep apnea, unspecified; M79.7 Fibromyalgia

== ENCOUNTER 2018-04-16 01:11 | Inpatient (IN) | payer MEDICARE ==
[2018-04-16 01:11] VITALS: BMI 54.8
--- NOTE | 2018-04-16 02:17 | C.PDOC ---
History Of Present Illness The patient presents to the ED for evaluation of chronic leg ulcers, more so to his left lower extremity. Patient also states that he recently had a left wrist fracture. Patient states he is unable to care for himself any longer and is also requesting pain medication. Patient denies fever, chills. Time Seen by Provider: 04/16/18 02:13 Chief Complaint (Nursing): Lower Extremity Problem/Injury History Per: Patient History/Exam Limitations: no limitations Onset/Duration Of Symptoms: Hrs Current Symptoms Are (Timing): Still Present Severity: Moderate Pain Scale Rating Of: 3 Recent travel outside of the [place]: No Additional History Per: Patient Past Medical History Reviewed: Historical Data, Nursing Documentation, Vital Signs Vital Signs: Last Vital Signs Temp 98.1 F 04/16/18 01:44 Pulse 81 04/16/18 01:44 Resp 20 04/16/18 01:44 BP 145/82 04/16/18 01:44 Pulse Ox 97 04/16/18 02:50 - Medical History PMH: Arthritis, Asthma, Back Problems, CAD, CHF, COPD, Depression, Diabetes, Deep Vein Thrombosis, Fibromyalgia, Fractures, HTN, Hypercholesterolemia, Hyperthyroidism, Hypothyroidism, Peripheral Edema (+3 pitting ble), Pneumonia, Pulmonary Embolism, Chronic Kidney Disease (required HD in 2016 briefly), Sleep Apnea, Chronic Pain Surgical History: No Surg Hx - [facility] Procedures ASSISTANCE WITH RESPIRATORY VENTILATION, >96 HRS, CPAP (09/04/16) BATHING/SHOWERING TECHNIQUES TREATMENT (07/29/17) CENTRAL VENOUS CATHETER PLACEMENT WITH GUIDANCE (07/08/15) CLOSED ENDOSCOPIC BIOPSY OF LARGE INTESTINE (03/22/14) CONTIN POS AIRWAY PRESSURE [CPAP] (02/21/07) DERMAL REGENERATIVE GRAFT (06/15/15) DRESSING TECHNIQUES TREATMENT (07/29/17) DX ULTRASOUND-HEART (05/14/06) ENDOSC POLYPECTOMY OF LG INTEST (03/22/14) ENDOSCOPIC BRONCHIAL BX (09/22/04) ESOPHAGOGASTRODUODENOSCOPY [EGD] W/CLOSED BIOPSY (03/22/14) EXCIS DEBRIDE OF WOUND, INFECT, OR BURN (06/15/15) EXCISION OF LEFT LOWER LEG SKIN, EXTERNAL APPROACH (09/15/17) EXTRACTION OF LEFT LOWER LEG SKIN, EXTERNAL APPROACH (02/16/18) FLUOROSCOPY OF SUPERIOR VENA CAVA, GUIDANCE (02/16/18) GAIT TRAINING/AMBULAT TREATMENT USING ASSIST EQUIPMENT (07/29/17) HETEROGRAFT TO SKIN (10/29/14) HOME MANAGEMENT TREATMENT (07/29/17) INJECT ANTIBIOTIC (05/29/06) INJECT ANTICOAGULANT (11/17/04) INJECT/INFUSE NEC (03/22/14) INSERTION OF INFUSION DEV INTO L AXILLA VEIN, PERC APPROACH (02/16/18) INSERTION OF INFUSION DEV INTO SUP VENA CAVA, PERC APPROACH (03/14/18) INSPECTION OF BLADDER, ENDO (06/22/16) INTRODUCE OF OTH THERAP SUBST INTO RESP TRACT, VIA OPENING (04/06/16) NEBULIZER THERAPY (09/18/14) NON-INVASIVE MECHANICAL VENTILATION (08/13/12) NONEXCIS DEBRID OF WOUND, INFECT, OR BURN (10/09/14) OCCUPATIONAL THERAPY (03/17/14) PERFORMANCE OF URINARY FILTRATION, MULTIPLE (09/04/16) PHYSICAL THERAPY NEC (03/17/14) REPLACE L LOW LEG SKIN W NONAUT SUB, FULL THICK, INSOLE COVERER (01/17/18) TRANSFUSE NONAUT FROZEN PLASMA IN PERIPH VEIN, PERC (09/04/16) ULTRASONOGRAPHY OF LEFT UPPER EXTREMITY VEINS, GUIDANCE (02/16/18) VENOUS CATHETERIZATION NEC (04/25/15) Family History: States: Unknown Family Hx - Social History Hx Tobacco Use: No Hx Alcohol Use: No Hx Substance Use: No - Immunization History Hx Tetanus Toxoid Vaccination: No Hx Influenza Vaccination: Yes Hx Pneumococcal Vaccination: Yes (3 yrs ago) Review Of Systems Constitutional: Negative for: Fever, Chills Eyes: Negative for: Vision Change Cardiovascular: Negative for: Chest Pain, Palpitations Respiratory: Negative for: Cough, Shortness of Breath Gastrointestinal: Negative for: Nausea, Vomiting Genitourinary: Negative for: Dysuria Musculoskeletal: Positive for: Leg Pain Skin: Positive for: Other (chronic leg ulcers ). Negative for: Rash, Lesions, Jaundice, Bruising Neurological: Negative for: Weakness, Numbness Psych: Negative for: Anxiety Physical Exam - Physical Exam Appears: Non-toxic, No Acute Distress Skin: Warm, Dry Head: Normacephalic Eye(s): bilateral: Normal Inspection Oral Mucosa: Moist Neck: Supple Chest: Symmetrical, No Deformity, No Tenderness Cardiovascular: Rhythm Regular, No Murmur Respiratory: No Rales, No Rhonchi, No Wheezing Gastrointestinal/Abdominal: Soft, No Tenderness, No Guarding, No Rebound, Other (morbidly obese ) Back: Normal Inspection Extremity: Normal ROM, Capillary Refill (less than 2 seconds), Other (chronic leg ulcers to bilateral lower extremities with small amount of drainage, left> right) Extremity: Bilateral: Painful To Bear Weight Pulses: Left Dorsalis Pedis: Normal, Right Dorsalis Pedis: Normal Neurological/Psych: Oriented x3 Gait: With Assistance ED Course And Treatment - Laboratory Results Result Diagrams: 04/16/18 02:51 04/16/18 02:51 O2 Sat by Pulse Oximetry: 97 (on RA) Pulse Ox Interpretation: Normal Progress Note: Bloodwork and urinalysis ordered and reviewed. Disposition Discussed With : Estrada Albright Comment: accepted the patient on his service and took over the care at 4:36AM Doctor Will See Patient In The: Hospital Counseled Patient/Family Regarding: Studies Performed, Diagnosis - Disposition Disposition: HOSPITALIZED Disposition Time: 02:17 Condition: FAIR Forms: [employer] (Albanian) - POA Present On Arrival: Poor Glycemic Control - Clinical Impression Clinical Impression: Chronic skin ulcer of lower leg, Morbid obesity, Ambulatory dysfunction - Scribe Statement The provider has reviewed the documentation as recorded by the Scribe (Felisha Murdock) Provider Attestation: All medical record entries made by the Scribe were at my direction and personally dictated by me. I have reviewed the chart and agree that the record accurately reflects my personal performance of the history, physical exam, medical decision making, and the department course for this patient. I have also personally directed, reviewed, and agree with the discharge instructions and disposition. Decision To Admit - Pt Status Changed To: Hospital Disposition Of: Inpatient - Admit Certification Admit to Inpatient:: After my assessment, the patient will require hospitalization for at least two midnights. This is because of the severity of symptoms shown, intensity of services needed, and/or the medical risk in this patient being treated as an outpatient. - InPatient: Physician Admission Certification: I certify that this patient requires 2 or more midnights of care for the following reason:: After my assessment, the patient will require hospitalization for at least two midnights. This is because of the severity of symptoms shown, intensity of services needed, and/or the medical risk in this patient being treated as an outpatient. - . Bed Request Type: Regular Admitting Physician: Estrada Albright Patient Diagnosis: Chronic skin ulcer of lower leg, Morbid obesity, Ambulatory dysfunction
[2018-04-16 03:01] LABS: BASO # 0.1 K/uL (0.0-0.2); BASO % 0.8 % (0.0-2.0); EOS # 0.2 K/uL (0.0-0.7); EOS % 3.1 % (0.0-4.0); HEMOGLOBIN 12.5 g/dL (12.0-18.0); LYMPH % 15.3 % (20.0-40.0); MEAN CELL VOLUME 79.4 fL (80.0-94.0); MEAN CORPUSCULAR HEMOGLOBIN 26.6 pg (27.0-31.0); MEAN CORPUSCULAR HGB CONC 33.6 g/dL (33.0-37.0); MEAN PLATELET VOLUME 9.5 fL (7.2-11.7); MONO # 0.4 K/uL (0.0-0.8); MONO % 6.7 % (0.0-10.0); NEUT # 4.7 K/uL (1.8-7.0); NEUT % 74.1 % (50.0-75.0); NRBC % 0.1 % (0.0-2.0); RBC 4.69 Mil/uL (4.40-5.90); RED CELL DISTRIBUTION WIDTH 18.6 % (11.5-14.5); WHITE BLOOD COUNT 6.4 K/uL (4.8-10.8)
[2018-04-16 03:02] LABS: INR 1.2; PROTHROMBIN TIME 13.6 SECONDS (9.7-12.2)
[2018-04-16 03:05] LABS: VENOUS BLOOD GAS BASE EXCESS 1.2 mmol/L (0.0-2.0); VENOUS BLOOD GAS PCO2 44 mmHg (40-60); VENOUS BLOOD GAS PO2 39 mm/Hg (30-55); VENOUS BLOOD PH 7.39 (7.32-7.43)
[2018-04-16] MEDS ORDERED: Oxycodone/Acetaminophen 5/325 mg Tab ONE (03:06)
[2018-04-16] MEDS ORDERED: Oxycodone/Acetaminophen 5/325 mg Tab PO STA (03:06)
[2018-04-16] MEDS ORDERED: oxyCODONE 80 mg ER Tab (oxyCONTIN) PO STA (03:11)
[2018-04-16] MEDS ORDERED: oxyCODONE 80 mg ER Tab (oxyCONTIN) PO ONE (03:16)
[2018-04-16 03:37] LABS: ALB/GLOB RATIO 0.8 (1.0-2.1); ALT/SGPT 10 U/L (21-72); AST/SGOT 28 U/L (17-59); BLOOD UREA NITROGEN 12 mg/dL (9-20); CALCIUM 9.5 mg/dl (8.6-10.4); GFR AFRICAN-AMERICAN > 60; GFR NON-AFRICAN AMERICAN > 60
--- NOTE | 2018-04-16 05:32 | CP.PCM.HP ---
History of Present Illness - History of Present Illness History of Present Illness: CC: foul smelling discharge from left calf History Of Present Illness The patient is a middle ages morbidly obese white male with h/o recurrent hospitalizations, HTN, DM, Hypothyroidism, chronic pain syndrome, OA , recently discharged from [facility] for left wrist fracture and left calf wound s/p debribement, pt ,presents to the ED after he had coupous foul smelling discharge from left calf wound. Patient states he is unable to care for himself any longer and is also requesting pain medication. Patient denies fever, chills. Present on Admission - Present on Admission Any Indicators Present on Admission: Yes Review of Systems - Review of Systems Systems not reviewed;Unavailable: Acuity of Condition - Constitutional Constitutional: Fatigue, Lethargy, Malaise, Weakness - EENT Eyes: absent: As Per HPI, Blind Spots, Blurred Vision, Change in Vision, Decreased Night Vision, Diplopia, Discharge, Dry Eye, Exophthalmos, Floaters, Irritation, Itchy Eyes, Loss of Peripheral Vision, Pain, Photophobia, Requires Corrective Lenses, Sees Flashes, Spots in Vision, Tunnel Vision, Other Visual Disturbances, Loss of Vision, Other Nose/Mouth/Throat: absent: As Per HPI, Epistaxis, Nasal Congestion, Nasal Discharge, Nasal Obstruction, Nasal Trauma, Nose Pain, Post Nasal Drip, Sinus Pain, Sinus Pressure, Bleeding Gums, Change in Voice, Dental Pain, Dry Mouth, Dysphagia, Halitosis, Hoarsness, Lip Swelling, Mouth Lesions, Mouth Pain, Odynophagia, Sore Throat, Throat Swelling, Tongue Swelling, Facial Pain, Neck Pain, Neck Mass, Other - Cardiovascular Cardiovascular: absent: As Per HPI, Acrocyanosis, Chest Pain, Chest Pain at Rest , Chest Pain with Activity, Claudication, Diaphoresis, Dyspnea, Dyspnea on Exertion, Edema, Irregular Heart Rhythm, Pain Radiating to Arm/Neck/Jaw, Leg Edema, Leg Ulcers, Lightheadedness, Orthopnea, Palpitations, Paroxysmal Nocturnal Dyspnea, Pedal Edema, Radiating Pain, Rapid Heart Rate, Slow Heart Rate, Syncope, Other - Respiratory Respiratory: Cough, Dyspnea on Exertion - Gastrointestinal Gastrointestinal: absent: As Per HPI, Abdominal Pain, Belching, Bloating, Change in Bowel Habits, Change in Stool Character, Coffee Ground Emesis, Constipation, Cramping, Diarrhea, Dyspepsia, Dysphagia, Early Satiety, Excessive Flatus, Fecal Incontinence, Heartburn, Hematemesis, Hematochezia, Loose Stools, Melena, Nausea, Odynophagia, Temesmus, Vomiting, Other - Genitourinary Genitourinary: absent: As Per HPI, Change in Urinary Stream, Difficulty Urinating, Dysuria, Flank Pain, Hematuria, Pyuria, Nocturia, Urinary Incontinence, Urinary Frequency, Urinary Hesitance, Urinary Urgency, Voiding Freq/Small Amts, Freq UTI, Hx Renal/Bladder Calculi, Hx /Renal Surgery, Bladder Distension, Other - Musculoskeletal Musculoskeletal: Back Pain, Muscle Weakness, Myalgias, Numbness, Stiffness, Tingling - Integumentary Integumentary: Non-Healing Lesions, Pruritus, Skin Ulcer, Swelling, Wounds. absent: As Per HPI, Acne, Alopecia, Bleeding Lesions, Change in Hair, Change in Nails, Change in Pigmentation, Changing Lesions, Dry Skin, Erythema, Furuncle, Hirsutism, Lesions, New Lesions, Photosensitivity, Rash, Skin Pain, Sores, Striae, Unusual Bruising, Jaundice, Other - Neurological Neurological: absent: As Per HPI, Abnormal Gait, Abnormal Hearing, Abnormal Movements, Abnormal Speech, Behavioral Changes, Burning Sensations, Confusion, Convulsions, Disequilibrium, Dizziness, Numbness, Focal Weakness, Frequent Falls , Headaches, Lack of Coordination, Loss of Vision, Memory Loss, Paresthesias, Radicular Pain, Restless Legs, Sensory Deficit, Syncope, Tingling, Tremor, Vertigo, Weakness, Other Visual Disturbances, Other - Psychiatric Psychiatric: Abnormal Sleep Pattern, Anxiety. absent: As Per HPI, Anhedonia, Auditory Hallucinations, Behavioral Changes, Change in Appetite, Change in Libido, Confusion, Depression, Difficulty Concentrating, Hallucinations, Homicidal Ideation, Hopelessness, Irritability, Memory Loss, Mood Swings, Panic Attacks, Paranoia, Suicidal Ideation, Visual Hallucinations, Tactile Hallucinations, Other - Endocrine Endocrine: Fatigue, Polydipsia, Polyphagia, Polyuria - Hematologic/Lymphatic Hematologic: absent: As Per HPI, Easy Bleeding, Easy Bruising, Lymphadenopathy, Other Past Patient History - Infectious Disease Hx of Infectious Diseases: None - Tetanus Immunizations Tetanus Immunization: Unknown - Past Medical History & Family History Past Medical History?: Yes - Past Social History Smoking Status: Never Smoked - CARDIAC Hx Congestive Heart Failure: Yes Hx Hypercholesterolemia: Yes Hx Hypertension: Yes Hx Peripheral Edema: Yes (+3 pitting ble) - PULMONARY Hx Asthma: Yes Hx Chronic Obstructive Pulmonary Disease (COPD): Yes Hx Pneumonia: Yes Hx Pulmonary Embolism: Yes Hx Sleep Apnea: Yes - NEUROLOGICAL Hx Neurological Disorder: No - HEENT Hx HEENT Problems: No - RENAL Hx Chronic Kidney Disease: Yes (required HD in 2016 briefly) - ENDOCRINE/METABOLIC Hx Hyperthyroidism: Yes Hx Hypothyroidism: Yes - HEMATOLOGICAL/ONCOLOGICAL Hx Blood Disorders: No - INTEGUMENTARY Hx Dermatological Problems: Yes Other/Comment: both leggs discolored,. CHRONIC LEG ULCERS - MUSCULOSKELETAL/RHEUMATOLOGICAL Hx Arthritis: Yes Hx Fractures: Yes - GASTROINTESTINAL Hx Gastrointestinal Disorders: (reflux obese) - GENITOURINARY/GYNECOLOGICAL Hx Reproductive Disorders: No - PSYCHIATRIC Hx Depression: Yes Hx Substance Use: No - SURGICAL HISTORY Hx Surgeries: Yes Hx Orthopedic Surgery: Yes (bilateral knee replacement) Other/Comment: total left knee - 1998. right ankle screws - 1987. right hip shyam - 1982,. LEG WOUND DEBRIDEMENTS - ANESTHESIA Hx Anesthesia: Yes Hx Anesthesia Reactions: No Hx Malignant Hyperthermia: No Meds Allergies/Adverse Reactions: Allergies Allergy/AdvReac Type Severity Reaction Status Date / Time No Known Allergies Allergy Verified 03/14/18 09:48 Physical Exam - Constitutional Appears: No Acute Distress, Chronically Ill - Eye Exam Eye Exam: EOMI, Normal appearance, PERRL Pupil Exam: NORMAL ACCOMODATION, PERRL - Respiratory Exam Respiratory Exam: Decreased Breath Sounds, NORMAL BREATHING PATTERN - Cardiovascular Exam Cardiovascular Exam: REGULAR RHYTHM, +S1, +S2 - GI/Abdominal Exam GI & Abdominal Exam: Normal Bowel Sounds, Soft. absent: Tenderness - Rectal Exam Rectal Exam: Deferred - Extremities Exam Additional comments: Lower extremity focused exam: No strikethrough noted to outer layer of dressings bilaterally. Vasc: Non-palpable pedal pulses due to edema B/L, TG warm to warm, CFT < 3 sec to all digits, +1 pitting edema to bilateral lower extremities distal to tibial tuberosity Derm: Localized mild non-streaking, blanchable periwound erythema to mid-calf level B/L. Left: Multiple continuous open ulcerations extending from tibial tuberosity to medial malleolus noted to the mid leg circumferentially and posterior ulceration undergoing early stage re-epithelialization. Moderate active sanguinous drainage, wound base is 100% granular. No shital-wound macerations. No purulence noted, moderate malodor noted. Right: Open superficial ulceration noted to the medial aspect of leg at mid- calf level approximately 3.9 x 3.1 cm. Ulceration margins undergoing early stage re-epithelialization with no active sero-sanguinous drainage, wound base is 100% granular with no shital-wound macerations. No purulence noted, moderate malodor noted. Neuro: protective sensation mildly diminished MUSC: pain on palpation of posterior and medial legs B/L, left > right - Back Exam Back exam: muscle spasm, paraspinal tenderness - Neurological Exam Neurological exam: Abnormal Gait, Alert, Oriented x3 - Psychiatric Exam Psychiatric exam: Normal Affect, Normal Mood Results - Vital Signs Recent Vital Signs: Last Vital Signs Temp 98.1 F 04/16/18 01:44 Pulse 80 04/16/18 04:30 Resp 14 04/16/18 04:30 BP 118/80 04/16/18 04:30 Pulse Ox 97 04/16/18 04:38 - Labs Result Diagrams: 04/16/18 02:51 04/16/18 02:51 Labs: Laboratory Results - last 24 hr 04/16/18 04/16/18 04/16/18 01:22 02:29 02:51 WBC 6.4 RBC 4.69 Hgb 12.5 Hct 37.3 MCV 79.4 L MCH 26.6 L MCHC 33.6 RDW 18.6 H Plt Count 170 MPV 9.5 Neut % (Auto) 74.1 Lymph % (Auto) 15.3 L [place] % (Auto) 6.7 Eos % (Auto) 3.1 Baso % (Auto) 0.8 Neut # (Auto) 4.7 Lymph # (Auto) 1.0 [place] # (Auto) 0.4 Eos # (Auto) 0.2 Baso # (Auto) 0.1 PT 13.6 H INR 1.2 APTT 22 pO2 VBG pH VBG pCO2 VBG HCO3 VBG Total CO2 VBG O2 Sat (Calc) VBG Base Excess VBG Potassium Glucose Lactate Sodium Potassium Chloride Carbon Dioxide Anion Gap BUN Creatinine Est GFR ( Amer) Est GFR (Non-Af Amer) POC Glucose (mg/dL) 77 Random Glucose Calcium Magnesium Total Bilirubin AST ALT Alkaline Phosphatase Total Protein Albumin Globulin Albumin/Globulin Ratio Venous Blood Potassium 04/16/18 04/16/18 02:51 02:55 WBC RBC Hgb Hct MCV MCH MCHC RDW Plt Count MPV Neut % (Auto) Lymph % (Auto) [place] % (Auto) Eos % (Auto) Baso % (Auto) Neut # (Auto) Lymph # (Auto) [place] # (Auto) Eos # (Auto) Baso # (Auto) PT INR APTT pO2 39 VBG pH 7.39 VBG pCO2 44 VBG HCO3 25.2 VBG Total CO2 28.0 VBG O2 Sat (Calc) 75.8 H VBG Base Excess 1.2 VBG Potassium 4.2 Glucose 113 H Lactate 1.0 Sodium 142 140.0 Potassium 4.5 Chloride 103 105.0 Carbon Dioxide 24 Anion Gap 20 BUN 12 Creatinine 0.9 Est GFR ( Amer) > 60 Est GFR (Non-Af Amer) > 60 POC Glucose (mg/dL) Random Glucose 121 H Calcium 9.5 Magnesium 2.0 Total Bilirubin 1.0 AST 28 ALT 10 L D Alkaline Phosphatase 141 H Total Protein 8.9 H Albumin 4.0 Globulin 4.9 H Albumin/Globulin Ratio 0.8 L Venous Blood Potassium 4.2 Assessment & Plan (1) Ambulatory dysfunction Status: Acute (2) Chronic skin ulcer of lower leg Assessment and Plan: wound care podiatry antibiotics Status: Acute (3) Morbid obesity Status: Acute (4) Cellulitis Status: Acute (5) HTN (hypertension) Status: Acute (6) Obstructive sleep apnea Status: Acute (7) Type 2 diabetes mellitus Status: Acute (8) Hypothyroidism Status: Chronic Priority: Medium
[2018-04-16] MEDS ORDERED: oxyCODONE 40 mg ER Tab (oxyCONTIN) PO SCH (06:00)
[2018-04-16] MEDS: Levothyroxine 75 MCG TAB PO SCH (06:21)
[2018-04-16] MEDS: (Novolog) Insulin Aspart, Recombinant 100 u/ml 10 ml vial SC SCH ×4 (08:28→21:14)
[2018-04-16] MEDS ORDERED: WARFARIN PO SCH (10:00)
[2018-04-16] MEDS ORDERED: Home Med 1 UNIT (Oxycodone Hcl/Acetaminophen [Percocet 10-325 Mg Tablet] 1 EACH) PO SCH (10:00)
[2018-04-16] MEDS ORDERED: Oxycodone/Acetaminophen 5/325 mg Tab PO SCH (10:45)
--- NOTE | 2018-04-16 11:45 | CP.PCM.PN ---
Subjective - Date & Time of Evaluation Date of Evaluation: 04/16/18 Time of Evaluation: 11:43 - Subjective Subjective: Podiatry Consult Note- Dr. Laguna. 57 year old male PMHx includes chronic leg ulcers, well known to podiatry, seen at bedside with attending Dr. Laguna regarding chronic recurrent wound to bilateral lower extremities. Patient states that he has pain to his lower extremity. Patient was seen by Dr. Laguna in the wound care center weekly. He denies recent fever, chills, weakness, or numbness. Patient denies any other pedal complaints at this time. Objective - Vital Signs/Intake and Output Vital Signs (last 24 hours): Temp Pulse Resp BP Pulse Ox 97.7 F 90 20 118/75 96 04/16/18 07:24 04/16/18 07:24 04/16/18 07:24 04/16/18 10:49 04/16/18 07:24 Intake and Output: 04/16/18 04/16/18 06:59 18:59 Intake Total 100 Balance 100 - Medications Medications: Current Medications Acetaminophen (Tylenol 325mg Tab) 650 mg PO Q6 PRN PRN Reason: Headache Docusate Sodium (Colace) 100 mg PO DAILY [facility] Last Admin: 04/16/18 10:48 Dose: 100 mg Furosemide (Lasix) 80 mg PO BID [facility] Last Admin: 04/16/18 10:49 Dose: 80 mg Gabapentin (Neurontin) 300 mg PO TID [facility] Last Admin: 04/16/18 10:50 Dose: 300 mg Hydralazine HCl (Apresoline) 25 mg PO BID [facility] Last Admin: 04/16/18 10:50 Dose: 25 mg Insulin Aspart (Novolog) 0 unit SC ACHS [facility] PRN Reason: Protocol Last Admin: 04/16/18 08:28 Dose: 1 unit Levothyroxine Sodium (Synthroid) 75 mcg PO DAILY@0630 [facility] Last Admin: 04/16/18 06:21 Dose: 75 mcg Metformin HCl (Glucophage Xr) 1,000 mg PO BID [facility] Last Admin: 04/16/18 10:49 Dose: 1,000 mg Oxycodone HCl (Oxycontin Extended Release Tab) 80 mg PO Q8 [facility] Last Admin: 04/16/18 06:21 Dose: 80 mg Oxycodone/Acetaminophen (Percocet 5/325 Mg Tab) 2 tab PO QID [facility] Last Admin: 04/16/18 11:10 Dose: 2 tab Warfarin Sodium (Coumadin) 10 mg PO 1800 ONE Stop: 04/16/18 18:01 Warfarin Sodium (Coumadin) 1 mg PO DAILY@1800 [facility] Stop: 04/16/18 18:01 - Labs Labs: 04/16/18 02:51 04/16/18 02:51 PT 13.6 SECONDS (9.7-12.2) H 04/16/18 02:29 INR 1.2 04/16/18 02:29 APTT 22 SECONDS (21-34) 04/16/18 02:29 - Constitutional Appears: Well, Non-toxic, No Acute Distress - Head Exam Head Exam: ATRAUMATIC - Extremities Exam Additional comments: Lower extremity focused exam: No strikethrough noted to outer layer of dressings bilaterally. Vasc: Non-palpable pedal pulses due to edema B/L, TG warm to warm, CFT < 3 sec to all digits, +1 pitting edema to bilateral lower extremities distal to tibial tuberosity Derm: Localized mild non-streaking, blanchable periwound erythema to mid-calf level B/L. Left: Multiple continuous open ulcerations extending from tibial tuberosity to medial malleolus noted to the mid leg circumferentially and posterior ulceration undergoing early stage re-epithelialization. Moderate active sanguinous drainage, wound base is 100% granular. No shital-wound macerations. No purulence noted, moderate malodor noted. Right: Open superficial ulceration noted to the medial aspect of leg at mid- calf level approximately 3.9 x 3.1 cm. Ulceration margins undergoing early stage re-epithelialization with no active sero-sanguinous drainage, wound base is 100% granular with no shital-wound macerations. No purulence noted, moderate malodor noted. Neuro: protective sensation mildly diminished MUSC: pain on palpation of posterior and medial legs B/L, left > right - Neurological Exam Neurological Exam: Alert, Awake, Oriented x3 - Psychiatric Exam Psychiatric exam: Normal Affect, Normal Mood - Skin Skin Exam: Normal Color, Warm Assessment and Plan - Assessment and Plan (Free Text) Assessment: 57 year old male with bilateral chronic, recurrent wounds to the bilateral lower extremity Plan: Patient seen and evaluated with attending Dr. Laguna chart, labs, vitals;afebrile WBC 6.4 Left leg Wound cx form previous visit: MRSA, E coli, E Cloacae Ssp- at last visit Continue medical management per Medicine Team Continue local wound care: Saline cleanse, Bactroban, Telfa, DSD Patient to follow up with Dr. Laguna upon discharge Podiatry will continue to follow
[2018-04-16] MEDS: oxyCODONE 80 mg ER Tab (oxyCONTIN) PO SCH ×2 (13:11→19:16)
[2018-04-16] MEDS: Oxycodone/Acetaminophen 5/325 mg Tab PO PRN ×2 (17:59→23:05)
[2018-04-17] MEDS: oxyCODONE 80 mg ER Tab (oxyCONTIN) PO SCH ×4 (00:09→17:28)
[2018-04-17] MEDS: Oxycodone/Acetaminophen 5/325 mg Tab PO PRN ×5 (03:09→21:12)
[2018-04-17] MEDS: Levothyroxine 75 MCG TAB PO SCH (05:51)
--- NOTE | 2018-04-17 05:51 | CP.PCM.PN ---
Subjective - Date & Time of Evaluation Date of Evaluation: 04/17/18 Time of Evaluation: 19:00 - Subjective Subjective: [facility], is less coughing, less short of breath on wound care Objective - Vital Signs/Intake and Output Vital Signs (last 24 hours): Temp Pulse Resp BP Pulse Ox 97.7 F 67 20 122/73 97 04/16/18 23:45 04/16/18 23:45 04/16/18 23:45 04/16/18 23:45 04/16/18 23:45 - Medications Medications: Current Medications Acetaminophen (Tylenol 325mg Tab) 650 mg PO Q6 PRN PRN Reason: Headache Docusate Sodium (Colace) 100 mg PO DAILY [facility] Last Admin: 04/16/18 10:48 Dose: 100 mg Furosemide (Lasix) 80 mg PO BID [facility] Last Admin: 04/16/18 17:55 Dose: 80 mg Gabapentin (Neurontin) 300 mg PO TID [facility] Last Admin: 04/16/18 17:54 Dose: 300 mg Hydralazine HCl (Apresoline) 25 mg PO BID [facility] Last Admin: 04/16/18 17:54 Dose: 25 mg Insulin Aspart (Novolog) 0 unit SC ACHS [facility] PRN Reason: Protocol Last Admin: 04/16/18 21:14 Dose: Not Given Levothyroxine Sodium (Synthroid) 75 mcg PO DAILY@0630 [facility] Last Admin: 04/16/18 06:21 Dose: 75 mcg Metformin HCl (Glucophage Xr) 1,000 mg PO BID [facility] Last Admin: 04/16/18 18:02 Dose: 1,000 mg Mupirocin (Bactroban Ointment) 0 gm TOP DAILY [facility] Nystatin (Nystop Topical Powder) 1 applic TOP BID [facility] Last Admin: 04/16/18 17:54 Dose: 1 applic Oxycodone HCl (Oxycontin Extended Release Tab) 80 mg PO Q6H [facility] Last Admin: 04/17/18 00:09 Dose: 80 mg Oxycodone/Acetaminophen (Percocet 5/325 Mg Tab) 2 tab PO Q4H PRN PRN Reason: Pain, moderate (4-7) Stop: 04/19/18 12:08 Last Admin: 04/17/18 03:09 Dose: 2 tab - Labs Labs: 04/16/18 02:51 04/16/18 02:51 PT 13.6 SECONDS (9.7-12.2) H 04/16/18 02:29 INR 1.2 04/16/18 02:29 APTT 22 SECONDS (21-34) 04/16/18 02:29 Assessment and Plan (1) Ambulatory dysfunction Status: Acute (2) Chronic skin ulcer of lower leg Status: Acute (3) Morbid obesity Status: Acute (4) Cellulitis Status: Acute (5) HTN (hypertension) Status: Acute (6) Obstructive sleep apnea Status: Acute (7) Type 2 diabetes mellitus Status: Acute (8) Hypothyroidism Status: Chronic
[2018-04-17 07:55] LABS: BASO # 0.1 K/uL (0.0-0.2); BASO % 1.3 % (0.0-2.0); EOS # 0.3 K/uL (0.0-0.7); EOS % 5.4 % (0.0-4.0); HEMOGLOBIN 11.3 g/dL (12.0-18.0); LYMPH # 1.8 K/uL (1.0-4.3); MEAN CELL VOLUME 80.2 fL (80.0-94.0); MEAN CORPUSCULAR HEMOGLOBIN 26.5 pg (27.0-31.0); MEAN CORPUSCULAR HGB CONC 33.1 g/dL (33.0-37.0); MEAN PLATELET VOLUME 9.7 fL (7.2-11.7); MONO # 0.5 K/uL (0.0-0.8); MONO % 8.8 % (0.0-10.0); NEUT # 2.7 K/uL (1.8-7.0); NEUT % 51.5 % (50.0-75.0); NRBC % 0.1 % (0.0-2.0); RBC 4.25 Mil/uL (4.40-5.90); RED CELL DISTRIBUTION WIDTH 19.1 % (11.5-14.5); WHITE BLOOD COUNT 5.3 K/uL (4.8-10.8)
[2018-04-17 07:56] LABS: INR 1.1; PROTHROMBIN TIME 12.4 SECONDS (9.7-12.2)
[2018-04-17] MEDS: (Novolog) Insulin Aspart, Recombinant 100 u/ml 10 ml vial SC SCH ×4 (08:08→21:55)
[2018-04-17 08:13] LABS: ALB/GLOB RATIO 0.9 (1.0-2.1); ALBUMIN 3.8 g/dL (3.5-5.0); CALCIUM 9.2 mg/dl (8.6-10.4)
--- NOTE | 2018-04-17 09:19 | CP.PCM.PN ---
<Misti Murdock - Last Filed: 04/17/18 09:17> Subjective - Date & Time of Evaluation Date of Evaluation: 04/17/18 Time of Evaluation: 09:18 - Subjective Subjective: Podiatry Progress Note- Dr. Laguna. 57 year old male PMHx includes chronic leg ulcers, well known to podiatry, seen at bedside with attending Dr. Laguna regarding chronic recurrent wound to bilateral lower extremities. Patient is AAOx3 and is in NAD. Appears to be resting comfortably in his bed. He denies recent fever, chills, weakness, or numbness. Patient denies any other pedal complaints at this time. Objective - Vital Signs/Intake and Output Vital Signs (last 24 hours): Temp Pulse Resp BP Pulse Ox 98.4 F 71 20 128/72 97 04/17/18 07:20 04/17/18 07:20 04/17/18 07:20 04/17/18 08:32 04/17/18 07:20 - Medications Medications: Current Medications Acetaminophen (Tylenol 325mg Tab) 650 mg PO Q6 PRN PRN Reason: Headache Docusate Sodium (Colace) 100 mg PO DAILY [facility] Last Admin: 04/16/18 10:48 Dose: 100 mg Furosemide (Lasix) 80 mg PO BID [facility] Last Admin: 04/16/18 17:55 Dose: 80 mg Gabapentin (Neurontin) 300 mg PO TID [facility] Last Admin: 04/16/18 17:54 Dose: 300 mg Hydralazine HCl (Apresoline) 25 mg PO BID [facility] Last Admin: 04/16/18 17:54 Dose: 25 mg Insulin Aspart (Novolog) 0 unit SC ACHS [facility] PRN Reason: Protocol Last Admin: 04/17/18 08:08 Dose: Not Given Levothyroxine Sodium (Synthroid) 75 mcg PO DAILY@0630 [facility] Last Admin: 04/17/18 05:51 Dose: 75 mcg Metformin HCl (Glucophage Xr) 1,000 mg PO BID [facility] Last Admin: 04/16/18 18:02 Dose: 1,000 mg Mupirocin (Bactroban Ointment) 0 gm TOP DAILY [facility] Nystatin (Nystop Topical Powder) 1 applic TOP BID [facility] Last Admin: 04/16/18 17:54 Dose: 1 applic Oxycodone HCl (Oxycontin Extended Release Tab) 80 mg PO Q6H [facility] Last Admin: 04/17/18 05:51 Dose: 80 mg Oxycodone/Acetaminophen (Percocet 5/325 Mg Tab) 2 tab PO Q4H PRN PRN Reason: Pain, moderate (4-7) Stop: 04/19/18 12:08 Last Admin: 04/17/18 08:32 Dose: 2 tab - Labs Labs: 04/17/18 07:42 04/17/18 07:42 PT 12.4 SECONDS (9.7-12.2) H 04/17/18 07:42 INR 1.1 04/17/18 07:42 APTT 36 SECONDS (21-34) H D 04/17/18 07:42 - Constitutional Appears: Well, Non-toxic, No Acute Distress - Extremities Exam Additional comments: Lower extremity focused exam: No strikethrough noted to outer layer of dressings bilaterally. Vasc: Non-palpable pedal pulses due to edema B/L, TG warm to warm, CFT < 3 sec to all digits, +1 pitting edema to bilateral lower extremities distal to tibial tuberosity Derm: Localized mild non-streaking, blanchable periwound erythema to mid-calf level B/L. Left: Multiple continuous open ulcerations extending from tibial tuberosity to medial malleolus noted to the mid leg circumferentially and posterior ulceration undergoing early stage re-epithelialization. Moderate active sanguinous drainage, wound base is 100% granular. No shital-wound macerations. No purulence noted, moderate malodor noted. Right: Open superficial ulceration noted to the medial aspect of leg at mid- calf level approximately 3.9 x 3.1 cm. Ulceration margins undergoing early stage re-epithelialization with no active sero-sanguinous drainage, wound base is 100% granular with no shital-wound macerations. No purulence noted, moderate malodor noted. Neuro: protective sensation mildly diminished MUSC: pain on palpation of posterior and medial legs B/L, left > right - Neurological Exam Neurological Exam: Alert, Awake, Oriented x3 - Psychiatric Exam Psychiatric exam: Normal Affect, Normal Mood Assessment and Plan - Assessment and Plan (Free Text) Assessment: 57 year old male with bilateral chronic, recurrent wounds to the bilateral lower extremity Plan: Patient seen and evaluated with attending Dr. Laguna chart, labs, vitals;afebrile WBC 5.3 Left leg Wound cx form previous visit: MRSA, E coli, E Cloacae Ssp- at last visit Continue medical management per Medicine Team Continue local wound care: Saline cleanse, Bactroban, Telfa, DSD Patient to follow up with Dr. Laguna upon discharge Podiatry will continue to follow <Casey Laguna - Last Filed: 04/17/18 21:24> Objective - Vital Signs/Intake and Output Vital Signs (last 24 hours): Temp Pulse Resp BP Pulse Ox 98 F 86 20 130/84 95 04/17/18 15:21 04/17/18 15:21 04/17/18 15:21 04/17/18 17:27 04/17/18 15:21 Intake and Output: 04/17/18 04/18/18 18:59 06:59 Intake Total 400 Balance 400 - Medications Medications: Current Medications Acetaminophen (Tylenol 325mg Tab) 650 mg PO Q6 PRN PRN Reason: Headache Docusate Sodium (Colace) 100 mg PO DAILY [facility] Last Admin: 04/17/18 09:26 Dose: 100 mg Furosemide (Lasix) 80 mg PO BID [facility] Last Admin: 04/17/18 17:27 Dose: 80 mg Gabapentin (Neurontin) 300 mg PO TID [facility] Last Admin: 04/17/18 17:27 Dose: 300 mg Hydralazine HCl (Apresoline) 25 mg PO BID [facility] Last Admin: 04/17/18 17:27 Dose: 25 mg Insulin Aspart (Novolog) 0 unit SC ACHS [facility] PRN Reason: Protocol Last Admin: 04/17/18 16:47 Dose: Not Given Levothyroxine Sodium (Synthroid) 75 mcg PO DAILY@0630 [facility] Last Admin: 04/17/18 05:51 Dose: 75 mcg Metformin HCl (Glucophage Xr) 1,000 mg PO BID [facility] Last Admin: 04/17/18 17:29 Dose: 1,000 mg Mupirocin (Bactroban Ointment) 0 gm TOP DAILY [facility] Last Admin: 04/17/18 12:20 Dose: Not Given Nystatin (Nystop Topical Powder) 1 applic TOP BID [facility] Last Admin: 04/17/18 17:30 Dose: 1 applic Oxycodone HCl (Oxycontin Extended Release Tab) 80 mg PO Q6H [facility] Last Admin: 04/17/18 17:28 Dose: 80 mg Oxycodone/Acetaminophen (Percocet 5/325 Mg Tab) 2 tab PO Q4H PRN PRN Reason: Pain, moderate (4-7) Stop: 04/19/18 12:08 Last Admin: 04/17/18 21:12 Dose: 2 tab - Labs Labs: 04/17/18 07:42 04/17/18 07:42 PT 12.4 SECONDS (9.7-12.2) H 04/17/18 07:42 INR 1.1 04/17/18 07:42 APTT 36 SECONDS (21-34) H D 04/17/18 07:42 Assessment and Plan - Assessment and Plan (Free Text) Plan: as above /Pt seen at bedside with resident . agree with above findings . Labs and chart reviewed . .Continue local care and medical management./Dr Combs
[2018-04-18] MEDS: oxyCODONE 80 mg ER Tab (oxyCONTIN) PO SCH ×4 (00:03→17:28)
[2018-04-18] MEDS: Oxycodone/Acetaminophen 5/325 mg Tab PO PRN ×5 (02:02→21:03)
[2018-04-18] MEDS: Levothyroxine 75 MCG TAB PO SCH (06:21)
[2018-04-18 07:25] LABS: URINE BILIRUBIN NEGATIVE (NEGATIVE); URINE BLOOD NEGATIVE (NEGATIVE); URINE CLARITY Clear (Clear); URINE COLOR Straw (YELLOW); URINE GLUCOSE (UA) NORMAL (Normal); URINE LEUKOCYTE ESTERASE NEG Leu/uL (Negative); URINE PROTEIN NEGATIVE (NEGATIVE); URINE UROBILINOGEN NORMAL mg/dL (0.2-1.0)
[2018-04-18] MEDS: (Novolog) Insulin Aspart, Recombinant 100 u/ml 10 ml vial SC SCH ×3 (07:40→17:24)
[2018-04-18 07:54] LABS: BASO % 0.7 % (0.0-2.0); EOS # 0.3 K/uL (0.0-0.7); EOS % 4.7 % (0.0-4.0); HEMOGLOBIN 10.9 g/dL (12.0-18.0); LYMPH # 1.3 K/uL (1.0-4.3); LYMPH % 20.8 % (20.0-40.0); MEAN CELL VOLUME 79.7 fL (80.0-94.0); MEAN CORPUSCULAR HEMOGLOBIN 26.9 pg (27.0-31.0); MEAN CORPUSCULAR HGB CONC 33.8 g/dL (33.0-37.0); MEAN PLATELET VOLUME 9.8 fL (7.2-11.7); MONO # 0.5 K/uL (0.0-0.8); MONO % 7.7 % (0.0-10.0); NEUT # 4.2 K/uL (1.8-7.0); NEUT % 66.1 % (50.0-75.0); RBC 4.06 Mil/uL (4.40-5.90); RED CELL DISTRIBUTION WIDTH 18.7 % (11.5-14.5); WHITE BLOOD COUNT 6.3 K/uL (4.8-10.8)
[2018-04-18 07:59] LABS: INR 1.2; PROTHROMBIN TIME 13.1 SECONDS (9.7-12.2)
[2018-04-18 08:36] LABS: ALB/GLOB RATIO 0.9 (1.0-2.1); ALBUMIN 3.6 g/dL (3.5-5.0); CALCIUM 8.7 mg/dl (8.6-10.4)
--- NOTE | 2018-04-18 14:44 | CP.PCM.PN ---
Subjective - Date & Time of Evaluation Date of Evaluation: 04/18/18 Time of Evaluation: 08:00 - Subjective Subjective: notes reviewed no new cultures no purulence Objective - Vital Signs/Intake and Output Vital Signs (last 24 hours): Temp Pulse Resp BP Pulse Ox 98 F 80 20 112/73 98 04/18/18 07:00 04/18/18 07:00 04/18/18 07:00 04/18/18 09:11 04/18/18 07:00 Intake and Output: 04/18/18 04/18/18 06:59 18:59 Intake Total 800 500 Output Total 1700 Balance 800 -1200 - Medications Medications: Current Medications Acetaminophen (Tylenol 325mg Tab) 650 mg PO Q6 PRN PRN Reason: Headache Docusate Sodium (Colace) 100 mg PO DAILY [facility] Last Admin: 04/18/18 09:10 Dose: 100 mg Furosemide (Lasix) 80 mg PO BID [facility] Last Admin: 04/18/18 09:11 Dose: 80 mg Gabapentin (Neurontin) 300 mg PO TID [facility] Last Admin: 04/18/18 13:13 Dose: 300 mg Hydralazine HCl (Apresoline) 25 mg PO BID [facility] Last Admin: 04/18/18 09:10 Dose: 25 mg Insulin Aspart (Novolog) 0 unit SC ACHS [facility] PRN Reason: Protocol Last Admin: 04/18/18 11:20 Dose: Not Given Levothyroxine Sodium (Synthroid) 75 mcg PO DAILY@0630 [facility] Last Admin: 04/18/18 06:21 Dose: 75 mcg Metformin HCl (Glucophage Xr) 1,000 mg PO BID [facility] Last Admin: 04/18/18 09:10 Dose: 1,000 mg Mupirocin (Bactroban Ointment) 0 gm TOP DAILY [facility] Last Admin: 04/18/18 09:10 Dose: 1 applic Nystatin (Nystop Topical Powder) 1 applic TOP BID [facility] Last Admin: 04/18/18 09:12 Dose: 1 applic Oxycodone HCl (Oxycontin Extended Release Tab) 80 mg PO Q6H [facility] Last Admin: 04/18/18 12:18 Dose: 80 mg Oxycodone/Acetaminophen (Percocet 5/325 Mg Tab) 2 tab PO Q4H PRN PRN Reason: Pain, moderate (4-7) Stop: 04/19/18 12:08 Last Admin: 04/18/18 11:21 Dose: 2 tab - Labs Labs: 04/18/18 07:43 04/18/18 07:43 PT 13.1 SECONDS (9.7-12.2) H 04/18/18 07:43 INR 1.2 04/18/18 07:43 APTT 36 SECONDS (21-34) H D 04/17/18 07:42 - Constitutional Appears: Non-toxic, Chronically Ill - Head Exam Head Exam: NORMOCEPHALIC - Eye Exam Eye Exam: PERRL - ENT Exam ENT Exam: Mucous Membranes Dry - Neck Exam Neck Exam: absent: Lymphadenopathy - Respiratory Exam Respiratory Exam: Decreased Breath Sounds - Cardiovascular Exam Cardiovascular Exam: REGULAR RHYTHM - GI/Abdominal Exam GI & Abdominal Exam: Distended - Rectal Exam Rectal Exam: Deferred - Exam Exam: NORMAL INSPECTION - Extremities Exam Extremities Exam: Pedal Edema Additional comments: Derm: Localized mild non-streaking, blanchable periwound erythema to mid-calf level B/L. Left: Multiple continuous open ulcerations extending from tibial tuberosity to medial malleolus noted to the mid leg circumferentially and posterior ulceration undergoing early stage re-epithelialization. Moderate active sanguinous drainage, wound base is 100% granular. No shital-wound macerations. No purulence noted, moderate malodor noted. Right: Open superficial ulceration noted to the medial aspect of leg at mid- calf level approximately 3.9 x 3.1 cm. Ulceration margins undergoing early stage re-epithelialization with no active sero-sanguinous drainage, wound base is 100% granular with no shital-wound macerations. No purulence noted, moderate malodor noted. 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
--- NOTE | 2018-04-18 14:53 | CP.PCM.PN ---
Subjective - Date & Time of Evaluation Date of Evaluation: 04/18/18 Time of Evaluation: 14:50 - Subjective Subjective: Podiatry Progress Note- Dr. Laguna. 57 year old male PMHx includes chronic leg ulcers, well known to podiatry, seen at bedside regarding chronic recurrent wound to bilateral lower extremities. Patient is AAOx3 and is in NAD. Appears to be resting comfortably in his bed. Reports that the dressing are clean and dry and asks to be changed tomorrow. He denies recent fever, chills, weakness, or numbness. Patient denies any other pedal complaints at this time. Objective - Vital Signs/Intake and Output Vital Signs (last 24 hours): Temp Pulse Resp BP Pulse Ox 98 F 80 20 112/73 98 04/18/18 07:00 04/18/18 07:00 04/18/18 07:00 04/18/18 09:11 04/18/18 07:00 Intake and Output: 04/18/18 04/18/18 06:59 18:59 Intake Total 800 500 Output Total 1700 Balance 800 -1200 - Medications Medications: Current Medications Acetaminophen (Tylenol 325mg Tab) 650 mg PO Q6 PRN PRN Reason: Headache Docusate Sodium (Colace) 100 mg PO DAILY [facility] Last Admin: 04/18/18 09:10 Dose: 100 mg Furosemide (Lasix) 80 mg PO BID [facility] Last Admin: 04/18/18 09:11 Dose: 80 mg Gabapentin (Neurontin) 300 mg PO TID [facility] Last Admin: 04/18/18 13:13 Dose: 300 mg Hydralazine HCl (Apresoline) 25 mg PO BID [facility] Last Admin: 04/18/18 09:10 Dose: 25 mg Insulin Aspart (Novolog) 0 unit SC ACHS [facility] PRN Reason: Protocol Last Admin: 04/18/18 11:20 Dose: Not Given Levothyroxine Sodium (Synthroid) 75 mcg PO DAILY@0630 [facility] Last Admin: 04/18/18 06:21 Dose: 75 mcg Metformin HCl (Glucophage Xr) 1,000 mg PO BID [facility] Last Admin: 04/18/18 09:10 Dose: 1,000 mg Mupirocin (Bactroban Ointment) 0 gm TOP DAILY [facility] Last Admin: 04/18/18 09:10 Dose: 1 applic Nystatin (Nystop Topical Powder) 1 applic TOP BID [facility] Last Admin: 04/18/18 09:12 Dose: 1 applic Oxycodone HCl (Oxycontin Extended Release Tab) 80 mg PO Q6H [facility] Last Admin: 04/18/18 12:18 Dose: 80 mg Oxycodone/Acetaminophen (Percocet 5/325 Mg Tab) 2 tab PO Q4H PRN PRN Reason: Pain, moderate (4-7) Stop: 04/19/18 12:08 Last Admin: 04/18/18 11:21 Dose: 2 tab - Labs Labs: 04/18/18 07:43 04/18/18 07:43 PT 13.1 SECONDS (9.7-12.2) H 04/18/18 07:43 INR 1.2 04/18/18 07:43 APTT 36 SECONDS (21-34) H D 04/17/18 07:42 - Constitutional Appears: Well, Non-toxic, No Acute Distress - Extremities Exam Additional comments: Dressing on the bilateral LE are clean, dry and intact with no strike-through or drainage noted - Neurological Exam Neurological Exam: Alert, Awake, Oriented x3 - Psychiatric Exam Psychiatric exam: Normal Affect, Normal Mood Assessment and Plan - Assessment and Plan (Free Text) Assessment: 57 year old male with bilateral chronic, recurrent wounds to the bilateral lower extremity Plan: Patient seen and evaluated Plan discussed with attending Dr. Laguna chart, labs, vitals;afebrile WBC 6.3 Left leg Wound cx form previous visit: MRSA, E coli, E Cloacae Ssp- at last visit Continue medical management per Medicine Team Continue local wound care: Saline cleanse, Bactroban, Telfa, DSD Patient to follow up with Dr. Laguna upon discharge Podiatry will continue to follow
--- NOTE | 2018-04-18 22:25 | CP.PCM.PN ---
Subjective - Date & Time of Evaluation Date of Evaluation: 04/18/18 Time of Evaluation: 19:50 - Subjective Subjective: Pt seen and examined at bedside Objective - Vital Signs/Intake and Output Vital Signs (last 24 hours): Temp Pulse Resp BP Pulse Ox 98.0 F 78 20 123/72 98 04/18/18 15:00 04/18/18 15:00 04/18/18 15:00 04/18/18 17:32 04/18/18 15:00 Intake and Output: 04/18/18 04/19/18 18:59 06:59 Intake Total 500 Output Total 1700 Balance -1200 - Medications Medications: Current Medications Acetaminophen (Tylenol 325mg Tab) 650 mg PO Q6 PRN PRN Reason: Headache Docusate Sodium (Colace) 100 mg PO DAILY [facility] Last Admin: 04/18/18 09:10 Dose: 100 mg Furosemide (Lasix) 80 mg PO BID [facility] Last Admin: 04/18/18 17:32 Dose: 80 mg Gabapentin (Neurontin) 300 mg PO TID [facility] Last Admin: 04/18/18 17:28 Dose: 300 mg Hydralazine HCl (Apresoline) 25 mg PO BID [facility] Last Admin: 04/18/18 17:28 Dose: 25 mg Insulin Aspart (Novolog) 0 unit SC ACHS [facility] PRN Reason: Protocol Last Admin: 04/18/18 17:24 Dose: Not Given Levothyroxine Sodium (Synthroid) 75 mcg PO DAILY@0630 [facility] Last Admin: 04/18/18 06:21 Dose: 75 mcg Metformin HCl (Glucophage Xr) 1,000 mg PO BID [facility] Last Admin: 04/18/18 17:35 Dose: 1,000 mg Mupirocin (Bactroban Ointment) 0 gm TOP DAILY [facility] Last Admin: 04/18/18 09:10 Dose: 1 applic Nystatin (Nystop Topical Powder) 1 applic TOP BID [facility] Last Admin: 04/18/18 17:31 Dose: 1 applic Oxycodone HCl (Oxycontin Extended Release Tab) 80 mg PO Q6H [facility] Last Admin: 04/18/18 17:28 Dose: 80 mg Oxycodone/Acetaminophen (Percocet 5/325 Mg Tab) 2 tab PO Q4H PRN PRN Reason: Pain, moderate (4-7) Stop: 04/19/18 12:08 Last Admin: 04/18/18 21:03 Dose: 2 tab - Labs Labs: 04/18/18 07:43 04/18/18 07:43 PT 13.1 SECONDS (9.7-12.2) H 04/18/18 07:43 INR 1.2 04/18/18 07:43 APTT 36 SECONDS (21-34) H D 04/17/18 07:42 Assessment and Plan (1) Ambulatory dysfunction Status: Acute (2) Chronic skin ulcer of lower leg Status: Acute (3) Morbid obesity Status: Acute (4) Cellulitis Status: Acute (5) HTN (hypertension) Status: Acute (6) Obstructive sleep apnea Status: Acute (7) Type 2 diabetes mellitus Status: Acute (8) Hypothyroidism Status: Chronic
[2018-04-19] MEDS: oxyCODONE 80 mg ER Tab (oxyCONTIN) PO SCH ×4 (00:19→17:57)
[2018-04-19] MEDS: Oxycodone/Acetaminophen 5/325 mg Tab PO PRN ×5 (02:02→23:23)
[2018-04-19] MEDS: Levothyroxine 75 MCG TAB PO SCH (06:14)
[2018-04-19 07:35] LABS: BASO % 0.7 % (0.0-2.0); EOS # 0.3 K/uL (0.0-0.7); EOS % 5.2 % (0.0-4.0); HEMOGLOBIN 11.2 g/dL (12.0-18.0); LYMPH # 1.2 K/uL (1.0-4.3); LYMPH % 22.7 % (20.0-40.0); MEAN CELL VOLUME 78.9 fL (80.0-94.0); MEAN CORPUSCULAR HEMOGLOBIN 26.6 pg (27.0-31.0); MEAN CORPUSCULAR HGB CONC 33.8 g/dL (33.0-37.0); MEAN PLATELET VOLUME 9.6 fL (7.2-11.7); MONO # 0.4 K/uL (0.0-0.8); MONO % 8.2 % (0.0-10.0); NEUT # 3.4 K/uL (1.8-7.0); NEUT % 63.2 % (50.0-75.0); RBC 4.22 Mil/uL (4.40-5.90); RED CELL DISTRIBUTION WIDTH 17.8 % (11.5-14.5); WHITE BLOOD COUNT 5.3 K/uL (4.8-10.8)
[2018-04-19 07:37] LABS: INR 1.3; PROTHROMBIN TIME 14.2 SECONDS (9.7-12.2)
[2018-04-19 07:49] LABS: ALB/GLOB RATIO 0.9 (1.0-2.1); ALBUMIN 3.8 g/dL (3.5-5.0); CALCIUM 9.1 mg/dl (8.6-10.4)
[2018-04-19] MEDS: (Novolog) Insulin Aspart, Recombinant 100 u/ml 10 ml vial SC SCH ×4 (08:25→22:07)
--- NOTE | 2018-04-19 15:14 | CP.PCM.PN ---
Subjective - Date & Time of Evaluation Date of Evaluation: 04/19/18 Time of Evaluation: 11:12 - Subjective Subjective: Podiatry Progress Note- Dr. Laguna. 57 year old male PMHx includes chronic leg ulcers, well known to podiatry, seen at bedside regarding chronic recurrent wound to bilateral lower extremities. Patient is AAOx3 and is in NAD. Appears to be resting comfortably in his bed. Reports that the dressing are clean and dry and asks to be changed tomorrow. He denies recent fever, chills, weakness, or numbness. Patient denies any other pedal complaints at this time. Objective - Vital Signs/Intake and Output Vital Signs (last 24 hours): Temp Pulse Resp BP Pulse Ox 97.6 F 69 20 122/82 98 04/19/18 08:11 04/19/18 08:11 04/19/18 08:11 04/19/18 10:05 04/19/18 08:11 Intake and Output: 04/19/18 04/19/18 06:59 18:59 Output Total 2100 Balance -2100 - Medications Medications: Current Medications Acetaminophen (Tylenol 325mg Tab) 650 mg PO Q6 PRN PRN Reason: Headache Docusate Sodium (Colace) 100 mg PO DAILY [facility] Last Admin: 04/19/18 10:05 Dose: 100 mg Furosemide (Lasix) 80 mg PO BID [facility] Last Admin: 04/19/18 10:05 Dose: 80 mg Gabapentin (Neurontin) 300 mg PO TID [facility] Last Admin: 04/19/18 13:18 Dose: 300 mg Hydralazine HCl (Apresoline) 25 mg PO BID [facility] Last Admin: 04/19/18 10:05 Dose: 25 mg Insulin Aspart (Novolog) 0 unit SC ACHS [facility] PRN Reason: Protocol Last Admin: 04/19/18 11:30 Dose: Not Given Levothyroxine Sodium (Synthroid) 75 mcg PO DAILY@0630 [facility] Last Admin: 04/19/18 06:14 Dose: 75 mcg Metformin HCl (Glucophage Xr) 1,000 mg PO BID [facility] Last Admin: 04/19/18 10:05 Dose: 1,000 mg Mupirocin (Bactroban Ointment) 0 gm TOP DAILY [facility] Last Admin: 04/19/18 10:06 Dose: Not Given Nystatin (Nystop Topical Powder) 1 applic TOP BID [facility] Last Admin: 04/19/18 10:06 Dose: 1 applic Oxycodone HCl (Oxycontin Extended Release Tab) 80 mg PO Q6H [facility] Last Admin: 04/19/18 12:17 Dose: 80 mg Oxycodone/Acetaminophen (Percocet 5/325 Mg Tab) 2 tab PO Q4H PRN PRN Reason: Pain, moderate (4-7) Stop: 04/22/18 13:21 Last Admin: 04/19/18 13:40 Dose: 2 tab - Labs Labs: 04/19/18 07:27 04/19/18 07:27 PT 14.2 SECONDS (9.7-12.2) H 04/19/18 07:27 INR 1.3 04/19/18 07:27 APTT 36 SECONDS (21-34) H D 04/17/18 07:42 - Constitutional Appears: Well, Non-toxic, No Acute Distress - Head Exam Head Exam: ATRAUMATIC - Extremities Exam Additional comments: Lower extremity focused exam: No strikethrough noted to outer layer of dressings bilaterally. Vasc: Non-palpable pedal pulses due to edema B/L, TG warm to warm, CFT < 3 sec to all digits, +1 pitting edema to bilateral lower extremities distal to tibial tuberosity Derm: Localized mild non-streaking, blanchable periwound erythema to mid-calf level B/L. Left: Multiple continuous open ulcerations extending from tibial tuberosity to medial malleolus noted to the mid leg circumferentially and posterior ulceration undergoing early stage re-epithelialization. Moderate active sanguinous drainage, wound base is 100% granular. No shital-wound macerations. No purulence noted, moderate malodor noted. Right: Open superficial ulceration noted to the medial aspect of leg at mid- calf level approximately 3.9 x 3.1 cm. Ulceration margins undergoing early stage re-epithelialization with no active sero-sanguinous drainage, wound base is 100% granular with no shital-wound macerations. No purulence noted, moderate malodor noted. Neuro: protective sensation mildly diminished MUSC: pain on palpation of posterior and medial legs B/L, left > right - Neurological Exam Neurological Exam: Alert, Awake, Oriented x3 - Psychiatric Exam Psychiatric exam: Normal Affect, Normal Mood - Skin Skin Exam: Normal Color, Warm Assessment and Plan - Assessment and Plan (Free Text) Assessment: 57 year old male with bilateral chronic, recurrent wounds to the bilateral lower extremity Plan: Patient seen and evaluated with attending Dr. Laguna chart, labs, vitals;afebrile WBC 5.3 Left leg Wound cx form previous visit: MRSA, E coli, E Cloacae Ssp- at last visit Continue medical management per Medicine Team Continue local wound care: Saline cleanse, Bactroban, Telfa, DSD Patient to follow up with Dr. Laguna upon discharge Podiatry will continue to follow
[2018-04-20] MEDS: oxyCODONE 80 mg ER Tab (oxyCONTIN) PO SCH ×5 (00:26→23:57)
[2018-04-20] MEDS: Oxycodone/Acetaminophen 5/325 mg Tab PO PRN ×4 (05:28→23:01)
[2018-04-20] MEDS: Levothyroxine 75 MCG TAB PO SCH (06:38)
[2018-04-20] MEDS: (Novolog) Insulin Aspart, Recombinant 100 u/ml 10 ml vial SC SCH ×4 (07:49→21:47)
--- NOTE | 2018-04-20 08:53 | CP.PCM.PN ---
Subjective - Date & Time of Evaluation Date of Evaluation: 04/19/18 Time of Evaluation: 18:00 - Subjective Subjective: Patient is seen and evakauted ,in NAD. Appears to be resting comfortably in his bed. Reports that the dressing are clean and dry and asks to be changed tomorrow. He denies recent fever, chills, weakness, or numbness. Objective - Vital Signs/Intake and Output Vital Signs (last 24 hours): Temp Pulse Resp BP Pulse Ox 97.7 F 72 20 130/68 99 04/19/18 23:30 04/19/18 23:30 04/19/18 23:30 04/19/18 23:30 04/19/18 23:30 Intake and Output: 04/20/18 04/20/18 06:59 18:59 Output Total 1200 Balance -1200 - Medications Medications: Current Medications Acetaminophen (Tylenol 325mg Tab) 650 mg PO Q6 PRN PRN Reason: Headache Docusate Sodium (Colace) 100 mg PO DAILY [facility] Last Admin: 04/19/18 10:05 Dose: 100 mg Furosemide (Lasix) 80 mg PO BID [facility] Last Admin: 04/19/18 17:57 Dose: 80 mg Gabapentin (Neurontin) 300 mg PO TID [facility] Last Admin: 04/19/18 17:56 Dose: 300 mg Hydralazine HCl (Apresoline) 25 mg PO BID [facility] Last Admin: 04/19/18 17:57 Dose: 25 mg Insulin Aspart (Novolog) 0 unit SC ACHS [facility] PRN Reason: Protocol Last Admin: 04/20/18 07:49 Dose: Not Given Levothyroxine Sodium (Synthroid) 75 mcg PO DAILY@0630 [facility] Last Admin: 04/20/18 06:38 Dose: 75 mcg Metformin HCl (Glucophage Xr) 1,000 mg PO BID [facility] Last Admin: 04/19/18 17:56 Dose: 1,000 mg Mupirocin (Bactroban Ointment) 0 gm TOP DAILY [facility] Last Admin: 04/19/18 10:06 Dose: Not Given Nystatin (Nystop Topical Powder) 1 applic TOP BID [facility] Last Admin: 04/19/18 17:56 Dose: Not Given Oxycodone HCl (Oxycontin Extended Release Tab) 80 mg PO Q6H [facility] Last Admin: 04/20/18 06:38 Dose: 80 mg Oxycodone/Acetaminophen (Percocet 5/325 Mg Tab) 2 tab PO Q4H PRN PRN Reason: Pain, moderate (4-7) Stop: 04/22/18 13:21 Last Admin: 04/20/18 05:28 Dose: 2 tab - Labs Labs: 04/19/18 07:27 04/19/18 07:27 PT 14.2 SECONDS (9.7-12.2) H 04/19/18 07:27 INR 1.3 04/19/18 07:27 APTT 36 SECONDS (21-34) H D 04/17/18 07:42 Assessment and Plan (1) Ambulatory dysfunction Status: Acute (2) Chronic skin ulcer of lower leg Status: Acute (3) Morbid obesity Status: Acute (4) Cellulitis Status: Acute (5) HTN (hypertension) Status: Acute (6) Obstructive sleep apnea Status: Acute (7) Type 2 diabetes mellitus Status: Acute (8) Hypothyroidism Status: Chronic
--- NOTE | 2018-04-20 10:38 | CP.PCM.PN ---
<Radha Millan - Last Filed: 04/20/18 10:31> Subjective - Date & Time of Evaluation Date of Evaluation: 04/20/18 Time of Evaluation: 10:32 - Subjective Subjective: Podiatry Progress Note- Dr. Laguna. 57 year old male PMHx includes chronic leg ulcers, well known to podiatry, seen at bedside regarding chronic recurrent wound to bilateral lower extremities. Patient is AAOx3 and is in NAD. Appears to be resting comfortably in his bed. Reports that the dressing are clean and dry and asks to be changed tomorrow. He denies recent fever, chills, weakness, or numbness. Patient denies any other pedal complaints at this time. Objective - Vital Signs/Intake and Output Vital Signs (last 24 hours): Temp Pulse Resp BP Pulse Ox 97.7 F 72 20 130/72 99 04/19/18 23:30 04/19/18 23:30 04/19/18 23:30 04/20/18 09:43 04/19/18 23:30 Intake and Output: 04/20/18 04/20/18 06:59 18:59 Output Total 1200 Balance -1200 - Medications Medications: Current Medications Acetaminophen (Tylenol 325mg Tab) 650 mg PO Q6 PRN PRN Reason: Headache Docusate Sodium (Colace) 100 mg PO DAILY [facility] Last Admin: 04/20/18 09:42 Dose: 100 mg Furosemide (Lasix) 80 mg PO BID [facility] Last Admin: 04/20/18 09:43 Dose: 80 mg Gabapentin (Neurontin) 300 mg PO TID [facility] Last Admin: 04/20/18 09:42 Dose: 300 mg Hydralazine HCl (Apresoline) 25 mg PO BID [facility] Last Admin: 04/20/18 10:11 Dose: 25 mg Insulin Aspart (Novolog) 0 unit SC ACHS [facility] PRN Reason: Protocol Last Admin: 04/20/18 07:49 Dose: Not Given Levothyroxine Sodium (Synthroid) 75 mcg PO DAILY@0630 [facility] Last Admin: 04/20/18 06:38 Dose: 75 mcg Metformin HCl (Glucophage Xr) 1,000 mg PO BID [facility] Last Admin: 04/20/18 09:43 Dose: 1,000 mg Mupirocin (Bactroban Ointment) 0 gm TOP DAILY [facility] Last Admin: 04/19/18 10:06 Dose: Not Given Nystatin (Nystop Topical Powder) 1 applic TOP BID [facility] Last Admin: 04/20/18 09:46 Dose: 1 applic Oxycodone HCl (Oxycontin Extended Release Tab) 80 mg PO Q6H [facility] Last Admin: 04/20/18 06:38 Dose: 80 mg Oxycodone/Acetaminophen (Percocet 5/325 Mg Tab) 2 tab PO Q4H PRN PRN Reason: Pain, moderate (4-7) Stop: 04/22/18 13:21 Last Admin: 04/20/18 09:45 Dose: 2 tab - Labs Labs: 04/19/18 07:27 04/19/18 07:27 PT 14.2 SECONDS (9.7-12.2) H 04/19/18 07:27 INR 1.3 04/19/18 07:27 APTT 36 SECONDS (21-34) H D 04/17/18 07:42 - Constitutional Appears: Well, Non-toxic, No Acute Distress - Extremities Exam Additional comments: Lower extremity focused exam: No strikethrough noted to outer layer of dressings bilaterally. Vasc: Non-palpable pedal pulses due to edema B/L, TG warm to warm, CFT < 3 sec to all digits, +1 pitting edema to bilateral lower extremities distal to tibial tuberosity Derm: Localized mild non-streaking, blanchable periwound erythema to mid-calf level B/L. Left: Multiple continuous open ulcerations extending from tibial tuberosity to medial malleolus noted to the mid leg circumferentially and posterior ulceration undergoing early stage re-epithelialization. Moderate active sanguinous drainage, wound base is 100% granular. No shital-wound macerations. No purulence noted, moderate malodor noted. Right: Open superficial ulceration noted to the medial aspect of leg at mid- calf level approximately 3.9 x 3.1 cm. Ulceration margins undergoing early stage re-epithelialization with no active sero-sanguinous drainage, wound base is 100% granular with no shital-wound macerations. No purulence noted, moderate malodor noted. Neuro: protective sensation mildly diminished MUSC: pain on palpation of posterior and medial legs B/L, left > right - Neurological Exam Neurological Exam: Alert, Awake, Oriented x3 - Psychiatric Exam Psychiatric exam: Normal Affect, Normal Mood - Skin Skin Exam: Normal Color, Warm Assessment and Plan - Assessment and Plan (Free Text) Assessment: 57 year old male with bilateral chronic, recurrent wounds to the bilateral lower extremity Plan: Patient seen and evaluated with attending Dr. Laguna chart, labs, vitals;afebrile Left leg Wound cx form previous visit: MRSA, E coli, E Cloacae Ssp- at last visit Continue medical management per Medicine Team Continue local wound care: Saline cleanse, Bactroban, Telfa, DSD Patient to follow up with Dr. Laguna upon discharge Podiatry will continue to follow <Casey Laguna - Last Filed: 04/21/18 16:51> Objective - Vital Signs/Intake and Output Vital Signs (last 24 hours): Temp Pulse Resp BP Pulse Ox 97.6 F 66 20 156/60 H 95 04/21/18 07:10 04/21/18 07:10 04/21/18 07:10 04/21/18 09:38 04/21/18 07:10 Intake and Output: 04/21/18 04/21/18 06:59 18:59 Intake Total 700 Balance 700 - Medications Medications: Current Medications Acetaminophen (Tylenol 325mg Tab) 650 mg PO Q6 PRN PRN Reason: Headache Docusate Sodium (Colace) 100 mg PO DAILY [facility] Last Admin: 04/21/18 09:38 Dose: 100 mg Furosemide (Lasix) 80 mg PO BID [facility] Last Admin: 04/21/18 09:38 Dose: 80 mg Gabapentin (Neurontin) 300 mg PO TID [facility] Last Admin: 04/21/18 13:30 Dose: 300 mg Hydralazine HCl (Apresoline) 25 mg PO BID [facility] Last Admin: 04/21/18 09:38 Dose: 25 mg Insulin Aspart (Novolog) 0 unit SC ACHS [facility] PRN Reason: Protocol Last Admin: 04/21/18 12:15 Dose: 2 unit Levothyroxine Sodium (Synthroid) 75 mcg PO DAILY@0630 [facility] Last Admin: 04/21/18 05:54 Dose: 75 mcg Metformin HCl (Glucophage Xr) 1,000 mg PO BID [facility] Last Admin: 04/21/18 09:38 Dose: 1,000 mg Mupirocin (Bactroban Ointment) 0 gm TOP DAILY [facility] Last Admin: 04/21/18 09:39 Dose: Not Given Nystatin (Nystop Topical Powder) 1 applic TOP BID [facility] Last Admin: 04/21/18 09:39 Dose: 1 applic Oxycodone HCl (Oxycontin Extended Release Tab) 80 mg PO Q6H [facility] Last Admin: 04/21/18 11:33 Dose: 80 mg Oxycodone/Acetaminophen (Percocet 5/325 Mg Tab) 2 tab PO Q4H PRN PRN Reason: Pain, moderate (4-7) Stop: 04/22/18 13:21 Last Admin: 04/21/18 12:51 Dose: 2 tab - Labs Labs: 04/21/18 07:14 04/21/18 07:14 PT 18.4 SECONDS (9.7-12.2) H 04/20/18 11:34 INR 1.7 04/20/18 11:34 APTT 36 SECONDS (21-34) H D 04/17/18 07:42 Assessment and Plan - Assessment and Plan (Free Text) Plan: pt seen at bedside with resident .agree with above findings . labs and chart were reviewed ./DR FULLER
[2018-04-20 11:46] LABS: BASO % 0.7 % (0.0-2.0); EOS # 0.2 K/uL (0.0-0.7); EOS % 4.4 % (0.0-4.0); HEMOGLOBIN 11.8 g/dL (12.0-18.0); LYMPH # 1.2 K/uL (1.0-4.3); LYMPH % 20.9 % (20.0-40.0); MEAN CELL VOLUME 79.4 fL (80.0-94.0); MEAN CORPUSCULAR HEMOGLOBIN 26.7 pg (27.0-31.0); MEAN CORPUSCULAR HGB CONC 33.6 g/dL (33.0-37.0); MEAN PLATELET VOLUME 9.7 fL (7.2-11.7); MONO # 0.4 K/uL (0.0-0.8); MONO % 6.6 % (0.0-10.0); NEUT # 3.7 K/uL (1.8-7.0); NEUT % 67.4 % (50.0-75.0); RBC 4.41 Mil/uL (4.40-5.90); RED CELL DISTRIBUTION WIDTH 18.2 % (11.5-14.5); WHITE BLOOD COUNT 5.5 K/uL (4.8-10.8)
[2018-04-20 11:49] LABS: INR 1.7; PROTHROMBIN TIME 18.4 SECONDS (9.7-12.2)
[2018-04-20 12:00] LABS: ALBUMIN 4.2 g/dL (3.5-5.0); ALT/SGPT 7 U/L (21-72); AST/SGOT 19 U/L (17-59); BLOOD UREA NITROGEN 28 mg/dL (9-20); CALCIUM 8.5 mg/dl (8.6-10.4); GFR AFRICAN-AMERICAN > 60; GFR NON-AFRICAN AMERICAN 52
--- NOTE | 2018-04-20 13:06 | CP.PCM.PN ---
Subjective - Date & Time of Evaluation Date of Evaluation: 04/20/18 Time of Evaluation: 09:00 - Subjective Subjective: no fever reports chills alert NAD Objective - Vital Signs/Intake and Output Vital Signs (last 24 hours): Temp Pulse Resp BP Pulse Ox 97.7 F 72 20 130/72 99 04/19/18 23:30 04/19/18 23:30 04/19/18 23:30 04/20/18 09:43 04/19/18 23:30 Intake and Output: 04/20/18 04/20/18 06:59 18:59 Output Total 1200 Balance -1200 - Medications Medications: Current Medications Acetaminophen (Tylenol 325mg Tab) 650 mg PO Q6 PRN PRN Reason: Headache Docusate Sodium (Colace) 100 mg PO DAILY [facility] Last Admin: 04/20/18 09:42 Dose: 100 mg Furosemide (Lasix) 80 mg PO BID [facility] Last Admin: 04/20/18 09:43 Dose: 80 mg Gabapentin (Neurontin) 300 mg PO TID [facility] Last Admin: 04/20/18 13:03 Dose: 300 mg Hydralazine HCl (Apresoline) 25 mg PO BID [facility] Last Admin: 04/20/18 10:11 Dose: 25 mg Insulin Aspart (Novolog) 0 unit SC ACHS [facility] PRN Reason: Protocol Last Admin: 04/20/18 12:45 Dose: 1 unit Levothyroxine Sodium (Synthroid) 75 mcg PO DAILY@0630 [facility] Last Admin: 04/20/18 06:38 Dose: 75 mcg Metformin HCl (Glucophage Xr) 1,000 mg PO BID [facility] Last Admin: 04/20/18 09:43 Dose: 1,000 mg Mupirocin (Bactroban Ointment) 0 gm TOP DAILY [facility] Last Admin: 04/19/18 10:06 Dose: Not Given Nystatin (Nystop Topical Powder) 1 applic TOP BID [facility] Last Admin: 04/20/18 09:46 Dose: 1 applic Oxycodone HCl (Oxycontin Extended Release Tab) 80 mg PO Q6H [facility] Last Admin: 04/20/18 11:17 Dose: 80 mg Oxycodone/Acetaminophen (Percocet 5/325 Mg Tab) 2 tab PO Q4H PRN PRN Reason: Pain, moderate (4-7) Stop: 04/22/18 13:21 Last Admin: 04/20/18 09:45 Dose: 2 tab - Labs Labs: 04/20/18 11:34 04/20/18 11:34 PT 18.4 SECONDS (9.7-12.2) H 04/20/18 11:34 INR 1.7 04/20/18 11:34 APTT 36 SECONDS (21-34) H D 04/17/18 07:42 - Constitutional Appears: Non-toxic, Chronically Ill - Head Exam Head Exam: NORMOCEPHALIC - Eye Exam Eye Exam: PERRL - ENT Exam ENT Exam: Mucous Membranes Dry - Neck Exam Neck Exam: absent: Lymphadenopathy - Respiratory Exam Respiratory Exam: Decreased Breath Sounds - Cardiovascular Exam Cardiovascular Exam: REGULAR RHYTHM - GI/Abdominal Exam GI & Abdominal Exam: Distended - Rectal Exam Rectal Exam: Deferred - Extremities Exam Extremities Exam: Pedal Edema Additional comments: legs wrapped no pus - Back Exam Back Exam: absent: CVA tenderness (L), CVA tenderness (R) - Neurological Exam Neurological Exam: Alert, Awake, Oriented x3 - Psychiatric Exam Psychiatric exam: Depressed Assessment and Plan (1) Chronic skin ulcer of lower leg Status: Acute (2) Morbid obesity Status: Acute (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
--- NOTE | 2018-04-21 00:39 | CP.PCM.PN ---
Subjective - Date & Time of Evaluation Date of Evaluation: 04/20/18 Time of Evaluation: 20:00 - Subjective Subjective: pt is improving, discharge from left leg is improved, afebrile, no chest pain, sob Objective - Vital Signs/Intake and Output Vital Signs (last 24 hours): Temp Pulse Resp BP Pulse Ox 97.7 F 62 20 144/78 95 04/21/18 00:36 04/21/18 00:36 04/21/18 00:36 04/21/18 00:36 04/21/18 00:36 - Medications Medications: Current Medications Acetaminophen (Tylenol 325mg Tab) 650 mg PO Q6 PRN PRN Reason: Headache Docusate Sodium (Colace) 100 mg PO DAILY [facility] Last Admin: 04/20/18 09:42 Dose: 100 mg Furosemide (Lasix) 80 mg PO BID [facility] Last Admin: 04/20/18 18:20 Dose: 80 mg Gabapentin (Neurontin) 300 mg PO TID [facility] Last Admin: 04/20/18 19:00 Dose: 300 mg Hydralazine HCl (Apresoline) 25 mg PO BID [facility] Last Admin: 04/20/18 18:19 Dose: 25 mg Insulin Aspart (Novolog) 0 unit SC ACHS [facility] PRN Reason: Protocol Last Admin: 04/20/18 21:47 Dose: Not Given Levothyroxine Sodium (Synthroid) 75 mcg PO DAILY@0630 [facility] Last Admin: 04/20/18 06:38 Dose: 75 mcg Metformin HCl (Glucophage Xr) 1,000 mg PO BID [facility] Last Admin: 04/20/18 19:00 Dose: 1,000 mg Mupirocin (Bactroban Ointment) 0 gm TOP DAILY [facility] Last Admin: 04/19/18 10:06 Dose: Not Given Nystatin (Nystop Topical Powder) 1 applic TOP BID [facility] Last Admin: 04/20/18 18:20 Dose: Not Given Oxycodone HCl (Oxycontin Extended Release Tab) 80 mg PO Q6H [facility] Last Admin: 04/20/18 23:57 Dose: 80 mg Oxycodone/Acetaminophen (Percocet 5/325 Mg Tab) 2 tab PO Q4H PRN PRN Reason: Pain, moderate (4-7) Stop: 04/22/18 13:21 Last Admin: 04/20/18 23:01 Dose: 2 tab - Labs Labs: 04/20/18 11:34 04/20/18 11:34 PT 18.4 SECONDS (9.7-12.2) H 04/20/18 11:34 INR 1.7 04/20/18 11:34 APTT 36 SECONDS (21-34) H D 04/17/18 07:42 - Constitutional Appears: No Acute Distress - Head Exam Head Exam: ATRAUMATIC, NORMAL INSPECTION, NORMOCEPHALIC - Eye Exam Eye Exam: EOMI, Normal appearance, PERRL Pupil Exam: NORMAL ACCOMODATION, PERRL - ENT Exam ENT Exam: Mucous Membranes Moist, Normal Exam - Neck Exam Neck Exam: Full ROM, Normal Inspection. absent: Lymphadenopathy - Respiratory Exam Respiratory Exam: Clear to Ausculation Bilateral, NORMAL BREATHING PATTERN - Cardiovascular Exam Cardiovascular Exam: REGULAR RHYTHM, +S1, +S2. absent: Murmur - GI/Abdominal Exam GI & Abdominal Exam: Soft, Normal Bowel Sounds. absent: Tenderness - Rectal Exam Rectal Exam: Deferred Assessment and Plan (1) Ambulatory dysfunction Status: Acute (2) Chronic skin ulcer of lower leg Status: Acute (3) Morbid obesity Status: Acute (4) Cellulitis Status: Acute (5) HTN (hypertension) Status: Acute (6) Obstructive sleep apnea Status: Acute (7) Type 2 diabetes mellitus Status: Acute (8) Hypothyroidism Status: Chronic
[2018-04-21] MEDS: Oxycodone/Acetaminophen 5/325 mg Tab PO PRN ×5 (04:19→22:14)
[2018-04-21] MEDS: oxyCODONE 80 mg ER Tab (oxyCONTIN) PO SCH ×4 (05:54→23:48)
[2018-04-21] MEDS: Levothyroxine 75 MCG TAB PO SCH (05:54)
[2018-04-21 07:41] LABS: ALB/GLOB RATIO 0.9 (1.0-2.1); ALBUMIN 4.3 g/dL (3.5-5.0); AST/SGOT 21 U/L (17-59); BLOOD UREA NITROGEN 33 mg/dL (9-20); CALCIUM 9.1 mg/dl (8.6-10.4); GFR AFRICAN-AMERICAN 58; GFR NON-AFRICAN AMERICAN 48
[2018-04-21 07:43] LABS: ALT/SGPT < 6 U/L (21-72)
[2018-04-21 07:51] LABS: BASO # 0.1 K/uL (0.0-0.2); EOS # 0.3 K/uL (0.0-0.7); EOS % 4.1 % (0.0-4.0); HEMOGLOBIN 11.9 g/dL (12.0-18.0); LYMPH # 1.5 K/uL (1.0-4.3); LYMPH % 21.6 % (20.0-40.0); MEAN CELL VOLUME 79.3 fL (80.0-94.0); MEAN CORPUSCULAR HEMOGLOBIN 26.7 pg (27.0-31.0); MEAN CORPUSCULAR HGB CONC 33.7 g/dL (33.0-37.0); MEAN PLATELET VOLUME 10.1 fL (7.2-11.7); MONO # 0.5 K/uL (0.0-0.8); MONO % 7.6 % (0.0-10.0); NEUT # 4.4 K/uL (1.8-7.0); NEUT % 65.7 % (50.0-75.0); RBC 4.45 Mil/uL (4.40-5.90); RED CELL DISTRIBUTION WIDTH 18.1 % (11.5-14.5); WHITE BLOOD COUNT 6.8 K/uL (4.8-10.8)
[2018-04-21] MEDS: (Novolog) Insulin Aspart, Recombinant 100 u/ml 10 ml vial SC SCH ×5 (07:51→22:20)
--- NOTE | 2018-04-21 10:15 | CP.PCM.PN ---
<Radha Millan - Last Filed: 04/21/18 10:09> Subjective - Date & Time of Evaluation Date of Evaluation: 04/21/18 Time of Evaluation: 10:10 - Subjective Subjective: Podiatry Progress Note- Dr. Laguna. 57 year old male patient was seen at bedside this morning with attending Dr. Laguna concerning chronic ulceration to bilateral lower extremities. Patient is resting comfortably in bed, AAOx3 and is in NAD. Dressing to bilateral lower extremities remain cdi. He denies recent fever, chills, weakness, or numbness. Patient denies any other pedal complaints at this time. Objective - Vital Signs/Intake and Output Vital Signs (last 24 hours): Temp Pulse Resp BP Pulse Ox 97.6 F 66 20 156/60 H 95 04/21/18 07:10 04/21/18 07:10 04/21/18 07:10 04/21/18 09:38 04/21/18 07:10 - Medications Medications: Current Medications Acetaminophen (Tylenol 325mg Tab) 650 mg PO Q6 PRN PRN Reason: Headache Docusate Sodium (Colace) 100 mg PO DAILY [facility] Last Admin: 04/21/18 09:38 Dose: 100 mg Furosemide (Lasix) 80 mg PO BID [facility] Last Admin: 04/21/18 09:38 Dose: 80 mg Gabapentin (Neurontin) 300 mg PO TID [facility] Last Admin: 04/21/18 09:38 Dose: 300 mg Hydralazine HCl (Apresoline) 25 mg PO BID [facility] Last Admin: 04/21/18 09:38 Dose: 25 mg Insulin Aspart (Novolog) 0 unit SC ACHS [facility] PRN Reason: Protocol Last Admin: 04/21/18 07:51 Dose: Not Given Levothyroxine Sodium (Synthroid) 75 mcg PO DAILY@0630 [facility] Last Admin: 04/21/18 05:54 Dose: 75 mcg Metformin HCl (Glucophage Xr) 1,000 mg PO BID [facility] Last Admin: 04/21/18 09:38 Dose: 1,000 mg Mupirocin (Bactroban Ointment) 0 gm TOP DAILY [facility] Last Admin: 04/21/18 09:39 Dose: Not Given Nystatin (Nystop Topical Powder) 1 applic TOP BID [facility] Last Admin: 04/21/18 09:39 Dose: 1 applic Oxycodone HCl (Oxycontin Extended Release Tab) 80 mg PO Q6H [facility] Last Admin: 04/21/18 05:54 Dose: 80 mg Oxycodone/Acetaminophen (Percocet 5/325 Mg Tab) 2 tab PO Q4H PRN PRN Reason: Pain, moderate (4-7) Stop: 04/22/18 13:21 Last Admin: 04/21/18 08:32 Dose: 2 tab - Labs Labs: 04/21/18 07:14 04/21/18 07:14 PT 18.4 SECONDS (9.7-12.2) H 04/20/18 11:34 INR 1.7 04/20/18 11:34 APTT 36 SECONDS (21-34) H D 04/17/18 07:42 - Constitutional Appears: Well, Non-toxic, No Acute Distress - Head Exam Head Exam: ATRAUMATIC - Extremities Exam Additional comments: Lower extremity focused exam: No strikethrough noted to outer layer of dressings bilaterally. Vasc: Non-palpable pedal pulses due to edema B/L, TG warm to warm, CFT < 3 sec to all digits, +1 pitting edema to bilateral lower extremities distal to tibial tuberosity Derm: Localized mild non-streaking, blanchable periwound erythema to mid-calf level B/L. Left: Multiple continuous open ulcerations extending from tibial tuberosity to medial malleolus noted to the mid leg circumferentially and posterior ulceration undergoing early stage re-epithelialization. Moderate active sanguinous drainage, wound base is 100% granular. No shital-wound macerations. No purulence noted, moderate malodor noted. Right: Open superficial ulceration noted to the medial aspect of leg at mid- calf level approximately 3.9 x 3.1 cm. Ulceration margins undergoing early stage re-epithelialization with no active sero-sanguinous drainage, wound base is 100% granular with no shital-wound macerations. No purulence noted, moderate malodor noted. Neuro: protective sensation mildly diminished MUSC: pain on palpation of posterior and medial legs B/L, left > right - Neurological Exam Neurological Exam: Alert, Awake, Oriented x3 - Psychiatric Exam Psychiatric exam: Normal Affect, Normal Mood - Skin Skin Exam: Normal Color, Warm Assessment and Plan - Assessment and Plan (Free Text) Assessment: 57 year old male with bilateral chronic, recurrent wounds to the bilateral lower extremity Plan: Patient seen and evaluated with attending Dr. Laguna chart, labs, vitals; afebrile Left leg Wound cx form previous visit: MRSA, E coli, E Cloacae Ssp- at last visit Continue medical management per Medicine Team Continue local wound care: Saline cleanse, Bactroban, Telfa, DSD Patient to follow up with Dr. Laguna upon discharge Podiatry will continue to follow <Casey Laguna - Last Filed: 04/21/18 16:53> Objective - Vital Signs/Intake and Output Vital Signs (last 24 hours): Temp Pulse Resp BP Pulse Ox 97.6 F 66 20 156/60 H 95 04/21/18 07:10 04/21/18 07:10 04/21/18 07:10 04/21/18 09:38 04/21/18 07:10 Intake and Output: 04/21/18 04/21/18 06:59 18:59 Intake Total 700 Balance 700 - Medications Medications: Current Medications Acetaminophen (Tylenol 325mg Tab) 650 mg PO Q6 PRN PRN Reason: Headache Docusate Sodium (Colace) 100 mg PO DAILY [facility] Last Admin: 04/21/18 09:38 Dose: 100 mg Furosemide (Lasix) 80 mg PO BID [facility] Last Admin: 04/21/18 09:38 Dose: 80 mg Gabapentin (Neurontin) 300 mg PO TID [facility] Last Admin: 04/21/18 13:30 Dose: 300 mg Hydralazine HCl (Apresoline) 25 mg PO BID [facility] Last Admin: 04/21/18 09:38 Dose: 25 mg Insulin Aspart (Novolog) 0 unit SC ACHS [facility] PRN Reason: Protocol Last Admin: 04/21/18 12:15 Dose: 2 unit Levothyroxine Sodium (Synthroid) 75 mcg PO DAILY@0630 [facility] Last Admin: 04/21/18 05:54 Dose: 75 mcg Metformin HCl (Glucophage Xr) 1,000 mg PO BID [facility] Last Admin: 04/21/18 09:38 Dose: 1,000 mg Mupirocin (Bactroban Ointment) 0 gm TOP DAILY [facility] Last Admin: 04/21/18 09:39 Dose: Not Given Nystatin (Nystop Topical Powder) 1 applic TOP BID [facility] Last Admin: 04/21/18 09:39 Dose: 1 applic Oxycodone HCl (Oxycontin Extended Release Tab) 80 mg PO Q6H [facility] Last Admin: 04/21/18 11:33 Dose: 80 mg Oxycodone/Acetaminophen (Percocet 5/325 Mg Tab) 2 tab PO Q4H PRN PRN Reason: Pain, moderate (4-7) Stop: 04/22/18 13:21 Last Admin: 04/21/18 12:51 Dose: 2 tab - Labs Labs: 04/21/18 07:14 04/21/18 07:14 PT 18.4 SECONDS (9.7-12.2) H 04/20/18 11:34 INR 1.7 04/20/18 11:34 APTT 36 SECONDS (21-34) H D 04/17/18 07:42 Assessment and Plan - Assessment and Plan (Free Text) Plan: Pt seen at bedside with resident .agree with findings .labs and chart reviewed . /DR FULLER
--- NOTE | 2018-04-21 23:49 | CP.PCM.PN ---
Subjective - Date & Time of Evaluation Date of Evaluation: 04/21/18 Time of Evaluation: 19:45 - Subjective Subjective: Pt seen and examined at bedside, less pain in calf, discharge improving, left leg cellulitis improving, on physical therapy, no distress, no nausea, vomiting Objective - Vital Signs/Intake and Output Vital Signs (last 24 hours): Temp Pulse Resp BP Pulse Ox 97.8 F 71 20 122/79 95 04/21/18 17:15 04/21/18 17:15 04/21/18 17:15 04/21/18 17:29 04/21/18 17:15 Intake and Output: 04/21/18 04/22/18 18:59 06:59 Intake Total 700 Balance 700 - Medications Medications: Current Medications Acetaminophen (Tylenol 325mg Tab) 650 mg PO Q6 PRN PRN Reason: Headache Docusate Sodium (Colace) 100 mg PO DAILY [facility] Last Admin: 04/21/18 09:38 Dose: 100 mg Furosemide (Lasix) 80 mg PO BID [facility] Last Admin: 04/21/18 17:29 Dose: 80 mg Gabapentin (Neurontin) 300 mg PO TID [facility] Last Admin: 04/21/18 17:31 Dose: 300 mg Hydralazine HCl (Apresoline) 25 mg PO BID [facility] Last Admin: 04/21/18 17:29 Dose: 25 mg Insulin Aspart (Novolog) 0 unit SC ACHS [facility] PRN Reason: Protocol Last Admin: 04/21/18 22:20 Dose: Not Given Levothyroxine Sodium (Synthroid) 75 mcg PO DAILY@0630 [facility] Last Admin: 04/21/18 05:54 Dose: 75 mcg Metformin HCl (Glucophage Xr) 1,000 mg PO BID [facility] Last Admin: 04/21/18 17:31 Dose: 1,000 mg Mupirocin (Bactroban Ointment) 0 gm TOP DAILY [facility] Last Admin: 04/21/18 09:39 Dose: Not Given Nystatin (Nystop Topical Powder) 1 applic TOP BID [facility] Last Admin: 04/21/18 21:27 Dose: Not Given Oxycodone HCl (Oxycontin Extended Release Tab) 80 mg PO Q6H [facility] Last Admin: 04/21/18 17:30 Dose: 80 mg Oxycodone/Acetaminophen (Percocet 5/325 Mg Tab) 2 tab PO Q4H PRN PRN Reason: Pain, moderate (4-7) Stop: 04/22/18 13:21 Last Admin: 04/21/18 22:14 Dose: 2 tab Warfarin Sodium (Coumadin) 12.5 mg PO 1800 [facility] Stop: 04/22/18 18:01 - Labs Labs: 04/21/18 07:14 04/21/18 07:14 PT 18.4 SECONDS (9.7-12.2) H 04/20/18 11:34 INR 1.7 04/20/18 11:34 APTT 36 SECONDS (21-34) H D 04/17/18 07:42 - Constitutional Appears: No Acute Distress - Head Exam Head Exam: ATRAUMATIC, NORMAL INSPECTION, NORMOCEPHALIC - Eye Exam Eye Exam: EOMI, Normal appearance, PERRL Pupil Exam: NORMAL ACCOMODATION, PERRL - Respiratory Exam Respiratory Exam: Clear to Ausculation Bilateral, NORMAL BREATHING PATTERN - Cardiovascular Exam Cardiovascular Exam: REGULAR RHYTHM, +S1, +S2. absent: Murmur - GI/Abdominal Exam GI & Abdominal Exam: Soft, Normal Bowel Sounds. absent: Tenderness - Rectal Exam Rectal Exam: Deferred Assessment and Plan (1) Ambulatory dysfunction Status: Acute (2) Chronic skin ulcer of lower leg Status: Acute (3) Morbid obesity Status: Acute (4) Cellulitis Assessment & Plan: on antibiotics podiatry follow up Status: Acute (5) HTN (hypertension) Status: Acute (6) Obstructive sleep apnea Status: Acute (7) Type 2 diabetes mellitus Status: Acute (8) Hypothyroidism Status: Chronic
[2018-04-22] MEDS: Oxycodone/Acetaminophen 5/325 mg Tab PO PRN ×5 (03:19→21:29)
[2018-04-22] MEDS: oxyCODONE 80 mg ER Tab (oxyCONTIN) PO SCH ×4 (06:17→23:21)
[2018-04-22] MEDS: Levothyroxine 75 MCG TAB PO SCH (06:17)
[2018-04-22] MEDS: (Novolog) Insulin Aspart, Recombinant 100 u/ml 10 ml vial SC SCH ×4 (07:02→21:20)
--- NOTE | 2018-04-22 09:43 | CP.PCM.PN ---
Subjective - Date & Time of Evaluation Date of Evaluation: 04/22/18 Time of Evaluation: 09:40 - Subjective Subjective: Orthopedic f/u Dr. Young 57M known to us 5 weeks s/p left non displaced distal radius fracture, treated with splint, readmitted for leg wound. Objective - Vital Signs/Intake and Output Vital Signs (last 24 hours): Temp Pulse Resp BP Pulse Ox 97.9 F 69 20 132/65 98 04/22/18 07:00 04/22/18 07:00 04/22/18 07:00 04/22/18 07:00 04/22/18 07:00 - Medications Medications: Current Medications Acetaminophen (Tylenol 325mg Tab) 650 mg PO Q6 PRN PRN Reason: Headache Docusate Sodium (Colace) 100 mg PO DAILY [facility] Last Admin: 04/21/18 09:38 Dose: 100 mg Furosemide (Lasix) 80 mg PO BID [facility] Last Admin: 04/21/18 17:29 Dose: 80 mg Gabapentin (Neurontin) 300 mg PO TID [facility] Last Admin: 04/21/18 17:31 Dose: 300 mg Hydralazine HCl (Apresoline) 25 mg PO BID [facility] Last Admin: 04/21/18 17:29 Dose: 25 mg Insulin Aspart (Novolog) 0 unit SC ACHS [facility] PRN Reason: Protocol Last Admin: 04/22/18 07:02 Dose: Not Given Levothyroxine Sodium (Synthroid) 75 mcg PO DAILY@0630 [facility] Last Admin: 04/22/18 06:17 Dose: 75 mcg Metformin HCl (Glucophage Xr) 1,000 mg PO BID [facility] Last Admin: 04/21/18 17:31 Dose: 1,000 mg Mupirocin (Bactroban Ointment) 0 gm TOP DAILY [facility] Last Admin: 04/21/18 09:39 Dose: Not Given Nystatin (Nystop Topical Powder) 1 applic TOP BID [facility] Last Admin: 04/21/18 21:27 Dose: Not Given Oxycodone HCl (Oxycontin Extended Release Tab) 80 mg PO Q6H [facility] Last Admin: 04/22/18 06:17 Dose: 80 mg Oxycodone/Acetaminophen (Percocet 5/325 Mg Tab) 2 tab PO Q4H PRN PRN Reason: Pain, moderate (4-7) Stop: 04/22/18 13:21 Last Admin: 04/22/18 08:01 Dose: 2 tab Warfarin Sodium (Coumadin) 12.5 mg PO 1800 [facility] Stop: 04/22/18 18:01 - Labs Labs: 04/21/18 07:14 04/21/18 07:14 PT 18.4 SECONDS (9.7-12.2) H 04/20/18 11:34 INR 1.7 04/20/18 11:34 APTT 36 SECONDS (21-34) H D 04/17/18 07:42 - Constitutional Appears: Well, No Acute Distress - Extremities Exam Additional comments: left wrist splint intact, +ROM fingers, sensation intact Assessment and Plan (1) Closed fracture of left distal radius Assessment & Plan: 5 weeks s/p left distal radius fracture awaiting follow up xrays continue NWB left wrist at this time d/w Dr. Young, agrees with above Status: Acute
--- NOTE | 2018-04-22 13:02 | RAD ---
PROCEDURE: Left Wrist Radiographs. HISTORY: remove splint for imaging COMPARISON: None. FINDINGS: BONES: Impacted Colles fracture exhibits trace callus formation indicating fracture and intermediate stage of healing. LS LN fracture remains nondisplaced but without callus formation at this time. JOINTS: Degenerative changes seen throughout the carpal metacarpal and carpal carpal articulations as well as the radiocarpal joints. SOFT TISSUES: Diminishing soft tissue edema local to the fracture sites. OTHER FINDINGS: None. IMPRESSION: Impacted left Colles fracture and ulnar styloid fractures are at an intermediate stage of healing.
--- NOTE | 2018-04-22 14:09 | CP.PCM.PN ---
Subjective - Date & Time of Evaluation Date of Evaluation: 04/22/18 Time of Evaluation: 14:02 - Subjective Subjective: Podiatry Progress Note- Dr. Laguna. 57 year old male patient was seen at bedside this morning concerning chronic ulceration to bilateral lower extremities. Patient is resting comfortably in bed , AAOx3 and is in NAD. Patient mentions that the dressing to Left lower extremity have gotten wet and notices some strikethrough. Patient denies any other pedal complaints at this time. Objective - Vital Signs/Intake and Output Vital Signs (last 24 hours): Temp Pulse Resp BP Pulse Ox 97.9 F 69 20 132/65 98 04/22/18 07:00 04/22/18 07:00 04/22/18 07:00 04/22/18 10:10 04/22/18 07:00 - Medications Medications: Current Medications Acetaminophen (Tylenol 325mg Tab) 650 mg PO Q6 PRN PRN Reason: Headache Docusate Sodium (Colace) 100 mg PO DAILY [facility] Last Admin: 04/22/18 10:09 Dose: 100 mg Furosemide (Lasix) 80 mg PO BID [facility] Last Admin: 04/22/18 10:10 Dose: 80 mg Gabapentin (Neurontin) 300 mg PO TID [facility] Last Admin: 04/22/18 13:33 Dose: 300 mg Hydralazine HCl (Apresoline) 25 mg PO BID [facility] Last Admin: 04/22/18 10:10 Dose: 25 mg Insulin Aspart (Novolog) 0 unit SC ACHS [facility] PRN Reason: Protocol Last Admin: 04/22/18 12:38 Dose: 1 unit Levothyroxine Sodium (Synthroid) 75 mcg PO DAILY@0630 [facility] Last Admin: 04/22/18 06:17 Dose: 75 mcg Metformin HCl (Glucophage Xr) 1,000 mg PO BID [facility] Last Admin: 04/22/18 10:10 Dose: 1,000 mg Mupirocin (Bactroban Ointment) 0 gm TOP DAILY [facility] Last Admin: 04/22/18 10:30 Dose: Not Given Nystatin (Nystop Topical Powder) 1 applic TOP BID [facility] Last Admin: 04/22/18 10:12 Dose: 1 applic Oxycodone HCl (Oxycontin Extended Release Tab) 80 mg PO Q6H [facility] Last Admin: 04/22/18 11:29 Dose: 80 mg Warfarin Sodium (Coumadin) 12.5 mg PO 1800 [facility] Stop: 04/22/18 18:01 - Labs Labs: 04/21/18 07:14 04/21/18 07:14 PT 18.4 SECONDS (9.7-12.2) H 04/20/18 11:34 INR 1.7 04/20/18 11:34 APTT 36 SECONDS (21-34) H D 04/17/18 07:42 - Constitutional Appears: Well, Non-toxic, No Acute Distress - Head Exam Head Exam: ATRAUMATIC - Extremities Exam Additional comments: Lower extremity focused exam: No strikethrough noted to outer layer of dressings bilaterally. Vasc: Non-palpable pedal pulses due to edema B/L, TG warm to warm, CFT < 3 sec to all digits, +1 pitting edema to bilateral lower extremities distal to tibial tuberosity Derm: Localized mild non-streaking, blanchable periwound erythema to mid-calf level B/L. Left: Multiple continuous open ulcerations extending from tibial tuberosity to medial malleolus noted to the mid leg circumferentially and posterior ulceration undergoing early stage re-epithelialization. Moderate active sanguinous drainage, wound base is 100% granular. No shital-wound macerations. No purulence noted, moderate malodor noted. Right: Open superficial ulceration noted to the medial aspect of leg at mid- calf level approximately 3.9 x 3.1 cm. Ulceration margins undergoing early stage re-epithelialization with no active sero-sanguinous drainage, wound base is 100% granular with no shital-wound macerations. No purulence noted, moderate malodor noted. Neuro: protective sensation mildly diminished MUSC: pain on palpation of posterior and medial legs B/L, left > right - Neurological Exam Neurological Exam: Alert, Awake, Oriented x3 - Psychiatric Exam Psychiatric exam: Normal Affect, Normal Mood - Skin Skin Exam: Normal Color, Warm Assessment and Plan - Assessment and Plan (Free Text) Assessment: 57 year old male with bilateral chronic, recurrent wounds to the bilateral lower extremity Plan: Patient seen and evaluated with attending Dr. Laguna chart, labs, vitals; afebrile Left leg Wound cx form previous visit: MRSA, E coli, E Cloacae Ssp- at last visit Continue medical management per Medicine Team Continue local wound care: Saline cleanse, Bactroban, Telfa, DSD Patient to follow up with Dr. Laguna upon discharge Podiatry will continue to follow
[2018-04-22 17:17] LABS: INR 1.3; PROTHROMBIN TIME 14.3 SECONDS (9.7-12.2)
[2018-04-23] MEDS: Oxycodone/Acetaminophen 5/325 mg Tab PO PRN ×5 (01:49→19:55)
--- NOTE | 2018-04-23 05:33 | CP.PCM.PN ---
Subjective - Date & Time of Evaluation Date of Evaluation: 04/22/18 Time of Evaluation: 18:00 - Subjective Subjective: Pt seen and examined, mild distress due to leg infection and wound , c/o pain at wrist and hand Objective - Vital Signs/Intake and Output Vital Signs (last 24 hours): Temp Pulse Resp BP Pulse Ox 97.4 F L 66 20 116/66 96 04/23/18 00:25 04/23/18 00:25 04/23/18 00:25 04/23/18 00:25 04/23/18 00:25 Intake and Output: 04/22/18 04/23/18 18:59 06:59 Intake Total 800 Output Total 800 Balance -800 800 - Medications Medications: Current Medications Acetaminophen (Tylenol 325mg Tab) 650 mg PO Q6 PRN PRN Reason: Headache Docusate Sodium (Colace) 100 mg PO DAILY [facility] Last Admin: 04/22/18 10:09 Dose: 100 mg Furosemide (Lasix) 80 mg PO BID [facility] Last Admin: 04/22/18 17:57 Dose: 80 mg Gabapentin (Neurontin) 300 mg PO TID [facility] Last Admin: 04/22/18 17:56 Dose: 300 mg Hydralazine HCl (Apresoline) 25 mg PO BID [facility] Last Admin: 04/22/18 17:57 Dose: 25 mg Insulin Aspart (Novolog) 0 unit SC ACHS [facility] PRN Reason: Protocol Last Admin: 04/22/18 21:20 Dose: Not Given Levothyroxine Sodium (Synthroid) 75 mcg PO DAILY@0630 [facility] Last Admin: 04/22/18 06:17 Dose: 75 mcg Metformin HCl (Glucophage Xr) 1,000 mg PO BID [facility] Last Admin: 04/22/18 17:56 Dose: 1,000 mg Mupirocin (Bactroban Ointment) 0 gm TOP DAILY [facility] Last Admin: 04/22/18 10:30 Dose: Not Given Nystatin (Nystop Topical Powder) 1 applic TOP BID [facility] Last Admin: 04/22/18 17:59 Dose: 1 applic Oxycodone HCl (Oxycontin Extended Release Tab) 80 mg PO Q6H [facility] Last Admin: 04/22/18 23:21 Dose: 80 mg Oxycodone/Acetaminophen (Percocet 5/325 Mg Tab) 2 tab PO Q4H PRN PRN Reason: Pain, moderate (4-7) Stop: 04/25/18 16:51 Last Admin: 04/23/18 01:49 Dose: 2 tab - Labs Labs: 04/21/18 07:14 04/21/18 07:14 PT 14.3 SECONDS (9.7-12.2) H 04/22/18 17:06 INR 1.3 04/22/18 17:06 APTT 39 SECONDS (21-34) H 04/22/18 17:06 Assessment and Plan (1) Ambulatory dysfunction Status: Acute (2) Chronic skin ulcer of lower leg Status: Acute (3) Morbid obesity Status: Acute (4) Cellulitis Status: Acute (5) HTN (hypertension) Status: Acute (6) Obstructive sleep apnea Status: Acute (7) Type 2 diabetes mellitus Status: Acute (8) Hypothyroidism Status: Chronic
[2018-04-23] MEDS: Levothyroxine 75 MCG TAB PO SCH (05:34)
[2018-04-23] MEDS: oxyCODONE 80 mg ER Tab (oxyCONTIN) PO SCH ×4 (05:34→23:58)
[2018-04-23] MEDS: (Novolog) Insulin Aspart, Recombinant 100 u/ml 10 ml vial SC SCH ×4 (07:36→21:53)
[2018-04-23 08:11] LABS: BASO # 0.1 K/uL (0.0-0.2); EOS # 0.2 K/uL (0.0-0.7); EOS % 3.5 % (0.0-4.0); HEMOGLOBIN 11.4 g/dL (12.0-18.0); LYMPH # 1.4 K/uL (1.0-4.3); LYMPH % 23.7 % (20.0-40.0); MEAN CELL VOLUME 79.2 fL (80.0-94.0); MEAN CORPUSCULAR HEMOGLOBIN 26.6 pg (27.0-31.0); MEAN CORPUSCULAR HGB CONC 33.6 g/dL (33.0-37.0); MEAN PLATELET VOLUME 10.3 fL (7.2-11.7); MONO # 0.5 K/uL (0.0-0.8); MONO % 8.7 % (0.0-10.0); NEUT # 3.7 K/uL (1.8-7.0); NEUT % 63.1 % (50.0-75.0); RBC 4.28 Mil/uL (4.40-5.90); RED CELL DISTRIBUTION WIDTH 17.8 % (11.5-14.5); WHITE BLOOD COUNT 5.9 K/uL (4.8-10.8)
[2018-04-23 08:36] LABS: ALB/GLOB RATIO 0.9 (1.0-2.1); ALBUMIN 3.8 g/dL (3.5-5.0); ALT/SGPT 17 U/L (21-72); AST/SGOT 23 U/L (17-59); BLOOD UREA NITROGEN 39 mg/dL (9-20); CALCIUM 8.8 mg/dl (8.6-10.4); GFR AFRICAN-AMERICAN > 60; GFR NON-AFRICAN AMERICAN 52
--- NOTE | 2018-04-23 08:42 | CON ---
DATE: HISTORY OF PRESENT ILLNESS: The patient was admitted by Dr. Estrada Albright with a diagnosis of leg pain and chronic leg ulcers. The patient was seen by me about 5 weeks ago with a diagnosis of fracture of the left distal radius. He was treated by close reduction casting, subsequently we placed in a wrist splint. Examination reveals splint in place. Minimal swelling of the wrist noted. The patient is subjectively complaining of pain. Repeat x-rays revealed progress in healing of the fracture. The patient is not interested in surgical intervention. At this point, we will leave the splint on for 2 more weeks, at which time, we will start the patient on occupational therapy. DIAGNOSIS: Fracture distal radius. PLAN: We will follow the patient. Remy Young MD [facility]
[2018-04-23 13:26] LABS: INR 1.3; PROTHROMBIN TIME 14.2 SECONDS (9.7-12.2)
--- NOTE | 2018-04-23 16:02 | CP.PCM.PN ---
Subjective - Date & Time of Evaluation Date of Evaluation: 04/23/18 Time of Evaluation: 13:14 - Subjective Subjective: Podiatry Progress Note- Dr. Laguna. 57 year old male patient was seen at bedside this morning concerning chronic ulceration to bilateral lower extremities. Patient is resting comfortably in bed , AAOx3 and is in NAD. Dressings remain cdi. Patient denies any other pedal complaints at this time. Objective - Vital Signs/Intake and Output Vital Signs (last 24 hours): Temp Pulse Resp BP Pulse Ox 98.0 F 69 20 133/70 98 04/23/18 15:00 04/23/18 15:00 04/23/18 15:00 04/23/18 15:00 04/23/18 15:00 Intake and Output: 04/23/18 04/23/18 06:59 18:59 Intake Total 1100 Balance 1100 - Medications Medications: Current Medications Acetaminophen (Tylenol 325mg Tab) 650 mg PO Q6 PRN PRN Reason: Headache Docusate Sodium (Colace) 100 mg PO DAILY [facility] Last Admin: 04/23/18 10:11 Dose: 100 mg Furosemide (Lasix) 80 mg PO BID [facility] Last Admin: 04/23/18 10:11 Dose: 80 mg Gabapentin (Neurontin) 300 mg PO TID [facility] Last Admin: 04/23/18 14:31 Dose: 300 mg Hydralazine HCl (Apresoline) 25 mg PO BID [facility] Last Admin: 04/23/18 10:11 Dose: 25 mg Insulin Aspart (Novolog) 0 unit SC ACHS [facility] PRN Reason: Protocol Last Admin: 04/23/18 11:20 Dose: 1 unit Levothyroxine Sodium (Synthroid) 75 mcg PO DAILY@0630 [facility] Last Admin: 04/23/18 05:34 Dose: 75 mcg Metformin HCl (Glucophage Xr) 1,000 mg PO BID [facility] Last Admin: 04/23/18 10:11 Dose: 1,000 mg Mupirocin (Bactroban Ointment) 0 gm TOP DAILY [facility] Last Admin: 04/23/18 14:00 Dose: Not Given Nystatin (Nystop Topical Powder) 1 applic TOP BID [facility] Last Admin: 04/23/18 10:13 Dose: 1 applic Oxycodone HCl (Oxycontin Extended Release Tab) 80 mg PO Q6H [facility] Last Admin: 04/23/18 11:15 Dose: 80 mg Oxycodone/Acetaminophen (Percocet 5/325 Mg Tab) 2 tab PO Q4H PRN PRN Reason: Pain, moderate (4-7) Stop: 04/25/18 16:51 Last Admin: 04/23/18 14:31 Dose: 2 tab - Labs Labs: 04/23/18 07:55 04/23/18 07:55 PT 14.2 SECONDS (9.7-12.2) H 04/23/18 13:16 INR 1.3 04/23/18 13:16 APTT 39 SECONDS (21-34) H 04/22/18 17:06 - Constitutional Appears: Well, Non-toxic, No Acute Distress - Head Exam Head Exam: ATRAUMATIC - Extremities Exam Additional comments: Lower extremity focused exam: No strikethrough noted to outer layer of dressings bilaterally. Vasc: Non-palpable pedal pulses due to edema B/L, TG warm to warm, CFT < 3 sec to all digits, +1 pitting edema to bilateral lower extremities distal to tibial tuberosity Derm: Localized mild non-streaking, blanchable periwound erythema to mid-calf level B/L. Left: Multiple continuous open ulcerations extending from tibial tuberosity to medial malleolus noted to the mid leg circumferentially and posterior ulceration undergoing early stage re-epithelialization. Moderate active sanguinous drainage, wound base is 100% granular. No shital-wound macerations. No purulence noted, moderate malodor noted. Right: Open superficial ulceration noted to the medial aspect of leg at mid- calf level approximately 3.9 x 3.1 cm. Ulceration margins undergoing early stage re-epithelialization with no active sero-sanguinous drainage, wound base is 100% granular with no shital-wound macerations. No purulence noted, moderate malodor noted. Neuro: protective sensation mildly diminished MUSC: pain on palpation of posterior and medial legs B/L, left > right - Neurological Exam Neurological Exam: Alert, Awake, Oriented x3 - Psychiatric Exam Psychiatric exam: Normal Affect, Normal Mood - Skin Skin Exam: Normal Color, Warm Assessment and Plan - Assessment and Plan (Free Text) Assessment: 57 year old male with bilateral chronic, recurrent wounds to the bilateral lower extremity Plan: Patient seen and evaluated with attending Dr. Laguna chart, labs, vitals; afebrile Left leg Wound cx form previous visit: MRSA, E coli, E Cloacae Ssp- at last visit Continue medical management per Medicine Team Continue local wound care: Saline cleanse, Bactroban, Telfa, DSD Patient to follow up with Dr. Laguna upon discharge Podiatry will continue to follow
[2018-04-24] MEDS: Oxycodone/Acetaminophen 5/325 mg Tab PO PRN ×6 (01:02→22:56)
--- NOTE | 2018-04-24 04:12 | CP.PCM.PN ---
Subjective - Date & Time of Evaluation Date of Evaluation: 04/23/18 Time of Evaluation: 19:00 - Subjective Subjective: Patient is resting comfortably in bed, AAOx3 and is in NAD, B/L LEG WOUNDS HAVE IMPROVED, PODIATRY ALSO FOLLOWED UP, PT DENIES ANY NEW COMPLAINS Objective - Vital Signs/Intake and Output Vital Signs (last 24 hours): Temp Pulse Resp BP Pulse Ox 97.6 F 66 20 120/71 95 04/24/18 00:25 04/24/18 00:25 04/24/18 00:25 04/24/18 00:04/24/18 00:25 - Medications Medications: Current Medications Acetaminophen (Tylenol 325mg Tab) 650 mg PO Q6 PRN PRN Reason: Headache Docusate Sodium (Colace) 100 mg PO DAILY [facility] Last Admin: 04/23/18 10:11 Dose: 100 mg Furosemide (Lasix) 80 mg PO BID [facility] Last Admin: 04/23/18 17:59 Dose: 80 mg Gabapentin (Neurontin) 300 mg PO TID [facility] Last Admin: 04/23/18 17:37 Dose: 300 mg Hydralazine HCl (Apresoline) 25 mg PO BID [facility] Last Admin: 04/23/18 17:37 Dose: 25 mg Insulin Aspart (Novolog) 0 unit SC ACHS [facility] PRN Reason: Protocol Last Admin: 04/23/18 21:53 Dose: Not Given Levothyroxine Sodium (Synthroid) 75 mcg PO DAILY@0630 [facility] Last Admin: 04/23/18 05:34 Dose: 75 mcg Metformin HCl (Glucophage Xr) 1,000 mg PO BID [facility] Last Admin: 04/23/18 17:37 Dose: 1,000 mg Mupirocin (Bactroban Ointment) 0 gm TOP DAILY [facility] Last Admin: 04/23/18 14:00 Dose: Not Given Nystatin (Nystop Topical Powder) 1 applic TOP BID [facility] Last Admin: 04/23/18 17:38 Dose: 1 applic Oxycodone HCl (Oxycontin Extended Release Tab) 80 mg PO Q6H [facility] Last Admin: 04/23/18 23:58 Dose: 80 mg Oxycodone/Acetaminophen (Percocet 5/325 Mg Tab) 2 tab PO Q4H PRN PRN Reason: Pain, moderate (4-7) Stop: 04/25/18 16:51 Last Admin: 04/24/18 01:02 Dose: 2 tab - Labs Labs: 04/23/18 07:55 04/23/18 07:55 PT 14.2 SECONDS (9.7-12.2) H 04/23/18 13:16 INR 1.3 04/23/18 13:16 APTT 39 SECONDS (21-34) H 04/22/18 17:06 - Constitutional Appears: No Acute Distress - Head Exam Head Exam: ATRAUMATIC, NORMAL INSPECTION, NORMOCEPHALIC - Eye Exam Eye Exam: EOMI, Normal appearance, PERRL Pupil Exam: NORMAL ACCOMODATION, PERRL - ENT Exam ENT Exam: Mucous Membranes Moist, Normal Exam - Respiratory Exam Respiratory Exam: Clear to Ausculation Bilateral, NORMAL BREATHING PATTERN - Cardiovascular Exam Cardiovascular Exam: REGULAR RHYTHM, +S1, +S2. absent: Murmur - GI/Abdominal Exam GI & Abdominal Exam: Soft, Normal Bowel Sounds. absent: Tenderness Assessment and Plan (1) Ambulatory dysfunction Status: Acute (2) Chronic skin ulcer of lower leg Status: Acute (3) Morbid obesity Status: Acute (4) Cellulitis Status: Acute (5) HTN (hypertension) Status: Acute (6) Obstructive sleep apnea Status: Acute (7) Type 2 diabetes mellitus Status: Acute (8) Hypothyroidism Status: Chronic
[2018-04-24] MEDS: Levothyroxine 75 MCG TAB PO SCH (06:11)
[2018-04-24] MEDS: oxyCODONE 80 mg ER Tab (oxyCONTIN) PO SCH ×4 (06:11→23:43)
[2018-04-24 08:50] LABS: BASO # 0.1 K/uL (0.0-0.2); BASO % 1.1 % (0.0-2.0); EOS # 0.2 K/uL (0.0-0.7); EOS % 4.4 % (0.0-4.0); HEMOGLOBIN 11.4 g/dL (12.0-18.0); LYMPH # 1.4 K/uL (1.0-4.3); LYMPH % 26.1 % (20.0-40.0); MEAN CELL VOLUME 78.9 fL (80.0-94.0); MEAN CORPUSCULAR HEMOGLOBIN 26.9 pg (27.0-31.0); MEAN CORPUSCULAR HGB CONC 34.1 g/dL (33.0-37.0); MEAN PLATELET VOLUME 10.2 fL (7.2-11.7); MONO # 0.4 K/uL (0.0-0.8); MONO % 8.5 % (0.0-10.0); NEUT # 3.1 K/uL (1.8-7.0); NEUT % 59.9 % (50.0-75.0); NRBC % 0.1 % (0.0-2.0); RBC 4.24 Mil/uL (4.40-5.90); RED CELL DISTRIBUTION WIDTH 17.9 % (11.5-14.5); WHITE BLOOD COUNT 5.2 K/uL (4.8-10.8)
[2018-04-24 08:51] LABS: INR 1.6
[2018-04-24] MEDS: (Novolog) Insulin Aspart, Recombinant 100 u/ml 10 ml vial SC SCH ×4 (09:10→22:00)
[2018-04-24 09:14] LABS: ALBUMIN 4.2 g/dL (3.5-5.0); ALT/SGPT 9 U/L (21-72); AST/SGOT 25 U/L (17-59); BLOOD UREA NITROGEN 35 mg/dL (9-20); GFR AFRICAN-AMERICAN > 60; GFR NON-AFRICAN AMERICAN 57
--- NOTE | 2018-04-24 14:18 | CP.PCM.PN ---
Subjective - Date & Time of Evaluation Date of Evaluation: 04/24/18 Time of Evaluation: 11:15 - Subjective Subjective: Podiatry Progress Note- Dr. Laguna 57 year old male patient was seen at bedside this morning for chronic ulceration to bilateral lower extremities. Patient is resting comfortably in bed , in NAD, and AAOx3. Patient reports that he is doing well. Reports the same pain to the LE that is managed by pain medications. Dressing is clean, dry, intact without strikethrough. Denies acute overnight events. Denies nausea, fever, shortness of breath, chest pains or chills. No other pedal complaints at this time. Objective - Vital Signs/Intake and Output Vital Signs (last 24 hours): Temp Pulse Resp BP Pulse Ox 97.8 F 74 20 115/69 97 04/24/18 07:55 04/24/18 09:31 04/24/18 07:55 04/24/18 09:33 04/24/18 07:55 - Medications Medications: Current Medications Acetaminophen (Tylenol 325mg Tab) 650 mg PO Q6 PRN PRN Reason: Headache Docusate Sodium (Colace) 100 mg PO DAILY [facility] Last Admin: 04/24/18 09:32 Dose: 100 mg Furosemide (Lasix) 80 mg PO BID [facility] Last Admin: 04/24/18 09:33 Dose: 80 mg Gabapentin (Neurontin) 300 mg PO TID [facility] Last Admin: 04/24/18 13:40 Dose: 300 mg Hydralazine HCl (Apresoline) 25 mg PO BID [facility] Last Admin: 04/24/18 09:33 Dose: Not Given Insulin Aspart (Novolog) 0 unit SC ACHS [facility] PRN Reason: Protocol Last Admin: 04/24/18 11:36 Dose: 3 unit Levothyroxine Sodium (Synthroid) 75 mcg PO DAILY@0630 [facility] Last Admin: 04/24/18 06:11 Dose: 75 mcg Metformin HCl (Glucophage Xr) 1,000 mg PO BID [facility] Last Admin: 04/24/18 09:32 Dose: 1,000 mg Mupirocin (Bactroban Ointment) 0 gm TOP DAILY [facility] Last Admin: 04/24/18 09:42 Dose: Not Given Nystatin (Nystop Topical Powder) 1 applic TOP BID [facility] Last Admin: 04/24/18 09:41 Dose: 1 applic Oxycodone HCl (Oxycontin Extended Release Tab) 80 mg PO Q6H [facility] Last Admin: 04/24/18 11:35 Dose: 80 mg Oxycodone/Acetaminophen (Percocet 5/325 Mg Tab) 2 tab PO Q4H PRN PRN Reason: Pain, moderate (4-7) Stop: 04/25/18 16:51 Last Admin: 04/24/18 13:40 Dose: 2 tab Warfarin Sodium (Coumadin) 12.5 mg PO 1800 [facility] Stop: 04/24/18 18:01 - Labs Labs: 04/24/18 08:38 04/24/18 08:38 PT 18.0 SECONDS (9.7-12.2) H 04/24/18 08:38 INR 1.6 04/24/18 08:38 APTT 39 SECONDS (21-34) H 04/22/18 17:06 - Constitutional Appears: Well, Non-toxic, No Acute Distress - Extremities Exam Extremities Exam: absent: Calf Tenderness Additional comments: Lower extremity focused exam: No strikethrough noted to outer layer of dressings bilaterally. Vasc: Non-palpable pedal pulses due to edema B/L, TG warm to warm, CFT < 3 sec to all digits, +1 pitting edema to bilateral lower extremities distal to tibial tuberosity Derm: Localized mild non-streaking, blanchable periwound erythema to mid-calf level B/L. Left: Multiple continuous open ulcerations extending from tibial tuberosity to medial malleolus noted to the mid leg circumferentially and posterior ulceration undergoing early stage re-epithelialization. Moderate active sanguinous drainage, wound base is 100% granular. No shital-wound macerations. No purulence noted, moderate malodor noted. Right: Open superficial ulceration noted to the medial aspect of leg at mid- calf level approximately 3.9 x 3.1 cm. Ulceration margins undergoing early stage re-epithelialization with no active sero-sanguinous drainage, wound base is 100% granular with no shital-wound macerations. No purulence noted, moderate malodor noted. Neuro: protective sensation mildly diminished MUSC: pain on palpation of posterior and medial legs B/L, left > right - Neurological Exam Neurological Exam: Alert, Awake, Oriented x3 - Psychiatric Exam Psychiatric exam: Normal Affect, Normal Mood Assessment and Plan - Assessment and Plan (Free Text) Assessment: 57 year old male with bilateral chronic, recurrent wounds to the bilateral lower extremity Plan: Patient seen and evaluated with attending Dr. Laguna chart, labs, vitals; afebrile Left leg Wound cx form previous visit: MRSA, E coli, E Cloacae Ssp- at last visit Continue medical management per Medicine Team Continue local wound care: Saline cleanse, Telfa, DSD Patient to follow up with Dr. Laguna upon discharge Podiatry will continue to follow
[2018-04-25] MEDS: Oxycodone/Acetaminophen 5/325 mg Tab PO PRN ×4 (04:29→19:18)
[2018-04-25] MEDS: oxyCODONE 80 mg ER Tab (oxyCONTIN) PO SCH ×6 (06:20→23:16)
[2018-04-25] MEDS: Levothyroxine 75 MCG TAB PO SCH (06:20)
--- NOTE | 2018-04-25 07:38 | CP.PCM.PN ---
Subjective - Date & Time of Evaluation Date of Evaluation: 04/24/18 Time of Evaluation: 18:00 - Subjective Subjective: Pt seen and examined at bedside, pt is on physical therapy, left leg ulcer is on wound care, antibiotics Objective - Vital Signs/Intake and Output Vital Signs (last 24 hours): Temp Pulse Resp BP Pulse Ox 97.9 F 61 20 146/84 95 04/25/18 00:00 04/25/18 00:00 04/25/18 00:00 04/25/18 00:00 04/25/18 00:00 - Medications Medications: Current Medications Acetaminophen (Tylenol 325mg Tab) 650 mg PO Q6 PRN PRN Reason: Headache Docusate Sodium (Colace) 100 mg PO DAILY [facility] Last Admin: 04/24/18 09:32 Dose: 100 mg Furosemide (Lasix) 80 mg PO BID [facility] Last Admin: 04/24/18 18:04 Dose: 80 mg Gabapentin (Neurontin) 300 mg PO TID [facility] Last Admin: 04/24/18 18:00 Dose: 300 mg Hydralazine HCl (Apresoline) 25 mg PO BID [facility] Last Admin: 04/24/18 18:00 Dose: 25 mg Insulin Aspart (Novolog) 0 unit SC ACHS [facility] PRN Reason: Protocol Last Admin: 04/24/18 17:54 Dose: Not Given Levothyroxine Sodium (Synthroid) 75 mcg PO DAILY@0630 [facility] Last Admin: 04/25/18 06:20 Dose: 75 mcg Metformin HCl (Glucophage Xr) 1,000 mg PO BID [facility] Last Admin: 04/24/18 18:02 Dose: 1,000 mg Mupirocin (Bactroban Ointment) 0 gm TOP DAILY [facility] Last Admin: 04/24/18 09:42 Dose: Not Given Nystatin (Nystop Topical Powder) 1 applic TOP BID [facility] Last Admin: 04/24/18 18:05 Dose: Not Given Oxycodone HCl (Oxycontin Extended Release Tab) 80 mg PO Q6H [facility] Last Admin: 04/25/18 06:20 Dose: 80 mg Oxycodone/Acetaminophen (Percocet 5/325 Mg Tab) 2 tab PO Q4H PRN PRN Reason: Pain, moderate (4-7) Stop: 04/25/18 16:51 Last Admin: 05/27/18 04:29 Dose: 2 tab - Labs Labs: 04/24/18 08:38 04/24/18 08:38 PT 18.0 SECONDS (9.7-12.2) H 04/24/18 08:38 INR 1.6 04/24/18 08:38 APTT 39 SECONDS (21-34) H 04/22/18 17:06 - Constitutional Appears: No Acute Distress - Head Exam Head Exam: ATRAUMATIC, NORMAL INSPECTION, NORMOCEPHALIC - Eye Exam Eye Exam: EOMI, Normal appearance, PERRL Pupil Exam: NORMAL ACCOMODATION, PERRL - Respiratory Exam Respiratory Exam: Clear to Ausculation Bilateral, NORMAL BREATHING PATTERN - Cardiovascular Exam Cardiovascular Exam: REGULAR RHYTHM, +S1, +S2. absent: Murmur - GI/Abdominal Exam GI & Abdominal Exam: Soft, Normal Bowel Sounds. absent: Tenderness Assessment and Plan (1) Ambulatory dysfunction Status: Acute (2) Chronic skin ulcer of lower leg Status: Acute (3) Morbid obesity Status: Acute (4) Cellulitis Status: Acute (5) HTN (hypertension) Status: Acute (6) Obstructive sleep apnea Status: Acute (7) Type 2 diabetes mellitus Status: Acute (8) Hypothyroidism Status: Chronic
--- NOTE | 2018-04-25 07:39 | CP.PCM.PN ---
Subjective - Date & Time of Evaluation Date of Evaluation: 04/25/18 Time of Evaluation: 19:00 - Subjective Subjective: Pt seen and examined at bedside, left leg ulcer is perssitant, on antibiotics s/ p left wrist fracture Objective - Vital Signs/Intake and Output Vital Signs (last 24 hours): Temp Pulse Resp BP Pulse Ox 97.9 F 61 20 146/84 95 04/25/18 00:00 04/25/18 00:00 04/25/18 00:00 04/25/18 00:00 04/25/18 00:00 - Medications Medications: Current Medications Acetaminophen (Tylenol 325mg Tab) 650 mg PO Q6 PRN PRN Reason: Headache Docusate Sodium (Colace) 100 mg PO DAILY [facility] Last Admin: 04/24/18 09:32 Dose: 100 mg Furosemide (Lasix) 80 mg PO BID [facility] Last Admin: 04/24/18 18:04 Dose: 80 mg Gabapentin (Neurontin) 300 mg PO TID [facility] Last Admin: 04/24/18 18:00 Dose: 300 mg Hydralazine HCl (Apresoline) 25 mg PO BID [facility] Last Admin: 04/24/18 18:00 Dose: 25 mg Insulin Aspart (Novolog) 0 unit SC ACHS [facility] PRN Reason: Protocol Last Admin: 04/24/18 17:54 Dose: Not Given Levothyroxine Sodium (Synthroid) 75 mcg PO DAILY@0630 [facility] Last Admin: 04/25/18 06:20 Dose: 75 mcg Metformin HCl (Glucophage Xr) 1,000 mg PO BID [facility] Last Admin: 04/24/18 18:02 Dose: 1,000 mg Mupirocin (Bactroban Ointment) 0 gm TOP DAILY [facility] Last Admin: 04/24/18 09:42 Dose: Not Given Nystatin (Nystop Topical Powder) 1 applic TOP BID [facility] Last Admin: 04/24/18 18:05 Dose: Not Given Oxycodone HCl (Oxycontin Extended Release Tab) 80 mg PO Q6H [facility] Last Admin: 04/25/18 06:20 Dose: 80 mg Oxycodone/Acetaminophen (Percocet 5/325 Mg Tab) 2 tab PO Q4H PRN PRN Reason: Pain, moderate (4-7) Stop: 04/25/18 16:51 Last Admin: 04/25/18 04:29 Dose: 2 tab - Labs Labs: 04/24/18 08:38 04/24/18 08:38 PT 18.0 SECONDS (9.7-12.2) H 04/24/18 08:38 INR 1.6 04/24/18 08:38 APTT 39 SECONDS (21-34) H 04/22/18 17:06 - Constitutional Appears: No Acute Distress - Head Exam Head Exam: ATRAUMATIC, NORMAL INSPECTION, NORMOCEPHALIC - Eye Exam Eye Exam: EOMI, Normal appearance, PERRL Pupil Exam: NORMAL ACCOMODATION, PERRL - Neck Exam Neck Exam: Full ROM, Normal Inspection. absent: Lymphadenopathy - Respiratory Exam Respiratory Exam: Decreased Breath Sounds, Wheezes - Cardiovascular Exam Cardiovascular Exam: REGULAR RHYTHM, +S1, +S2. absent: Murmur - GI/Abdominal Exam GI & Abdominal Exam: Soft, Normal Bowel Sounds. absent: Tenderness Assessment and Plan (1) Ambulatory dysfunction Status: Acute (2) Chronic skin ulcer of lower leg Status: Acute (3) Morbid obesity Status: Acute (4) Cellulitis Status: Acute (5) HTN (hypertension) Status: Acute (6) Obstructive sleep apnea Status: Acute (7) Type 2 diabetes mellitus Status: Acute (8) Hypothyroidism Status: Chronic
[2018-04-25] MEDS: (Novolog) Insulin Aspart, Recombinant 100 u/ml 10 ml vial SC SCH ×3 (08:26→18:11)
[2018-04-25 11:17] LABS: BASO # 0.1 K/uL (0.0-0.2); EOS # 0.2 K/uL (0.0-0.7); EOS % 4.1 % (0.0-4.0); HEMOGLOBIN 11.2 g/dL (12.0-18.0); LYMPH # 1.5 K/uL (1.0-4.3); LYMPH % 27.7 % (20.0-40.0); MEAN CELL VOLUME 79.6 fL (80.0-94.0); MEAN CORPUSCULAR HEMOGLOBIN 26.7 pg (27.0-31.0); MEAN CORPUSCULAR HGB CONC 33.5 g/dL (33.0-37.0); MEAN PLATELET VOLUME 10.3 fL (7.2-11.7); MONO # 0.4 K/uL (0.0-0.8); MONO % 7.5 % (0.0-10.0); NEUT # 3.2 K/uL (1.8-7.0); NEUT % 59.7 % (50.0-75.0); RBC 4.2 Mil/uL (4.40-5.90); RED CELL DISTRIBUTION WIDTH 17.7 % (11.5-14.5); WHITE BLOOD COUNT 5.4 K/uL (4.8-10.8)
[2018-04-25 11:28] LABS: ALB/GLOB RATIO 0.9 (1.0-2.1); ALBUMIN 3.6 g/dL (3.5-5.0); ALT/SGPT < 6 U/L (21-72); AST/SGOT 20 U/L (17-59); BLOOD UREA NITROGEN 36 mg/dL (9-20); GFR AFRICAN-AMERICAN > 60; GFR NON-AFRICAN AMERICAN 52
--- NOTE | 2018-04-25 11:56 | CP.PCM.PN ---
<Brennan Connolly - Last Filed: 04/25/18 11:54> Subjective - Date & Time of Evaluation Date of Evaluation: 04/25/18 Time of Evaluation: 07:00 - Subjective Subjective: Podiatry Progress Note- Dr. Laguna 57 year old male patient was seen at bedside this morning for chronic ulceration to bilateral lower extremities with attending Dr. Laguna. Patient is resting comfortably in bed, in NAD, and AAOx3. Patient reports that he is doing well. Reports the same pain to the LE that is managed by pain medications. Dressing is clean, dry, intact without strikethrough. Denies acute overnight events. Denies nausea, fever, shortness of breath, chest pains or chills. No other pedal complaints at this time. Objective - Vital Signs/Intake and Output Vital Signs (last 24 hours): Temp Pulse Resp BP Pulse Ox 97.8 F 63 20 117/76 98 04/25/18 07:00 04/25/18 07:00 04/25/18 07:00 04/25/18 09:54 04/25/18 07:00 - Medications Medications: Current Medications Acetaminophen (Tylenol 325mg Tab) 650 mg PO Q6 PRN PRN Reason: Headache Docusate Sodium (Colace) 100 mg PO DAILY [facility] Last Admin: 04/25/18 09:54 Dose: 100 mg Furosemide (Lasix) 80 mg PO BID [facility] Last Admin: 04/25/18 09:54 Dose: 80 mg Gabapentin (Neurontin) 300 mg PO TID [facility] Last Admin: 04/25/18 09:54 Dose: 300 mg Hydralazine HCl (Apresoline) 25 mg PO BID [facility] Last Admin: 04/25/18 09:55 Dose: 25 mg Insulin Aspart (Novolog) 0 unit SC ACHS [facility] PRN Reason: Protocol Last Admin: 04/25/18 08:26 Dose: Not Given Levothyroxine Sodium (Synthroid) 75 mcg PO DAILY@0630 [facility] Last Admin: 04/25/18 06:20 Dose: 75 mcg Metformin HCl (Glucophage Xr) 1,000 mg PO BID [facility] Last Admin: 04/25/18 09:56 Dose: 1,000 mg Mupirocin (Bactroban Ointment) 0 gm TOP DAILY [facility] Last Admin: 04/25/18 09:56 Dose: Not Given Nystatin (Nystop Topical Powder) 1 applic TOP BID [facility] Last Admin: 04/25/18 09:59 Dose: 1 applic Oxycodone HCl (Oxycontin Extended Release Tab) 80 mg PO Q6H [facility] Last Admin: 04/25/18 11:17 Dose: 80 mg Oxycodone/Acetaminophen (Percocet 5/325 Mg Tab) 2 tab PO Q4H PRN PRN Reason: Pain, moderate (4-7) Stop: 04/25/18 16:51 Last Admin: 04/25/18 08:31 Dose: 2 tab - Labs Labs: 04/25/18 11:07 04/25/18 11:07 PT 18.0 SECONDS (9.7-12.2) H 04/24/18 08:38 INR 1.6 04/24/18 08:38 APTT 39 SECONDS (21-34) H 04/22/18 17:06 - Constitutional Appears: Well, Non-toxic, No Acute Distress - Extremities Exam Extremities Exam: absent: Calf Tenderness Additional comments: Lower extremity focused exam: No strikethrough noted to outer layer of dressings bilaterally. Vasc: Non-palpable pedal pulses due to edema B/L, TG warm to warm, CFT < 3 sec to all digits, +1 pitting edema to bilateral lower extremities distal to tibial tuberosity Derm: Localized mild non-streaking, blanchable periwound erythema to mid-calf level B/L. Left: Multiple continuous open ulcerations extending from tibial tuberosity to medial malleolus noted to the mid leg circumferentially and posterior ulceration undergoing early stage re-epithelialization. Moderate active sanguinous drainage, wound base is 100% granular. No shital-wound macerations. No purulence noted, moderate malodor noted. Right: Open superficial ulceration noted to the medial aspect of leg at mid- calf level approximately 3.9 x 3.1 cm. Ulceration margins undergoing early stage re-epithelialization with no active sero-sanguinous drainage, wound base is 100% granular with no shital-wound macerations. No purulence noted, moderate malodor noted. Neuro: protective sensation mildly diminished MUSC: pain on palpation of posterior and medial legs B/L, left > right - Neurological Exam Neurological Exam: Alert, Awake, Oriented x3 Assessment and Plan - Assessment and Plan (Free Text) Assessment: 57 year old male with bilateral chronic, recurrent wounds to the bilateral lower extremity Plan: Patient seen and evaluated with attending Dr. Laguna chart, labs, vitals; afebrile Left leg Wound cx form previous visit: MRSA, E coli, E Cloacae Ssp- at last visit Continue medical management per Medicine Team Continue local wound care: Saline cleanse, Telfa, DSD Patient to follow up with Dr. Laguna upon discharge Podiatry will continue to follow <Casey Laguna - Last Filed: 04/25/18 13:35> Objective - Vital Signs/Intake and Output Vital Signs (last 24 hours): Temp Pulse Resp BP Pulse Ox 97.8 F 63 20 117/76 98 04/25/18 07:00 04/25/18 07:00 04/25/18 07:00 04/25/18 09:54 04/25/18 07:00 - Medications Medications: Current Medications Acetaminophen (Tylenol 325mg Tab) 650 mg PO Q6 PRN PRN Reason: Headache Docusate Sodium (Colace) 100 mg PO DAILY [facility] Last Admin: 04/25/18 09:54 Dose: 100 mg Furosemide (Lasix) 80 mg PO BID [facility] Last Admin: 04/25/18 09:54 Dose: 80 mg Gabapentin (Neurontin) 300 mg PO TID [facility] Last Admin: 04/25/18 09:54 Dose: 300 mg Hydralazine HCl (Apresoline) 25 mg PO BID [facility] Last Admin: 04/25/18 09:55 Dose: 25 mg Insulin Aspart (Novolog) 0 unit SC ACHS [facility] PRN Reason: Protocol Last Admin: 04/25/18 13:04 Dose: Not Given Levothyroxine Sodium (Synthroid) 75 mcg PO DAILY@0630 [facility] Last Admin: 04/25/18 06:20 Dose: 75 mcg Metformin HCl (Glucophage Xr) 1,000 mg PO BID [facility] Last Admin: 04/25/18 09:56 Dose: 1,000 mg Mupirocin (Bactroban Ointment) 0 gm TOP DAILY [facility] Last Admin: 04/25/18 09:56 Dose: Not Given Nystatin (Nystop Topical Powder) 1 applic TOP BID [facility] Last Admin: 04/25/18 09:59 Dose: 1 applic Oxycodone HCl (Oxycontin Extended Release Tab) 80 mg PO Q6H [facility] Last Admin: 04/25/18 11:17 Dose: 80 mg Oxycodone/Acetaminophen (Percocet 5/325 Mg Tab) 2 tab PO Q4H PRN PRN Reason: Pain, moderate (4-7) Stop: 04/25/18 16:51 Last Admin: 04/25/18 08:31 Dose: 2 tab - Labs Labs: 04/25/18 11:07 04/25/18 11:07 PT 22.9 SECONDS (9.7-12.2) H 04/25/18 11:07 INR 2.1 D 04/25/18 11:07 APTT 39 SECONDS (21-34) H 04/22/18 17:06 Assessment and Plan - Assessment and Plan (Free Text) Plan: agree with above note . labs and chart reviewed . continue local wound care in hospital ./Dr. Marquita Laguna
[2018-04-25 12:13] LABS: INR 2.1
[2018-04-25 12:14] LABS: PROTHROMBIN TIME 22.9 SECONDS (9.7-12.2)
[2018-04-26] MEDS: Oxycodone/Acetaminophen 5/325 mg Tab PO PRN ×6 (00:43→23:32)
[2018-04-26] MEDS: Levothyroxine 75 MCG TAB PO SCH (06:25)
[2018-04-26] MEDS: oxyCODONE 80 mg ER Tab (oxyCONTIN) PO SCH ×3 (06:26→17:38)
[2018-04-26 08:14] LABS: BASO # 0.1 K/uL (0.0-0.2); BASO % 1.1 % (0.0-2.0); EOS # 0.2 K/uL (0.0-0.7); EOS % 4.2 % (0.0-4.0); HEMOGLOBIN 11.5 g/dL (12.0-18.0); LYMPH # 1.7 K/uL (1.0-4.3); LYMPH % 31.2 % (20.0-40.0); MEAN CELL VOLUME 79.1 fL (80.0-94.0); MEAN CORPUSCULAR HEMOGLOBIN 26.7 pg (27.0-31.0); MEAN CORPUSCULAR HGB CONC 33.8 g/dL (33.0-37.0); MEAN PLATELET VOLUME 10.4 fL (7.2-11.7); MONO # 0.4 K/uL (0.0-0.8); MONO % 6.7 % (0.0-10.0); NEUT # 3.2 K/uL (1.8-7.0); NEUT % 56.8 % (50.0-75.0); NRBC % 0.1 % (0.0-2.0); RBC 4.29 Mil/uL (4.40-5.90); RED CELL DISTRIBUTION WIDTH 17.5 % (11.5-14.5); WHITE BLOOD COUNT 5.6 K/uL (4.8-10.8)
[2018-04-26 08:18] LABS: INR 2.4; PROTHROMBIN TIME 26.8 SECONDS (9.7-12.2)
[2018-04-26 08:22] LABS: ALBUMIN 4.1 g/dL (3.5-5.0); CALCIUM 8.9 mg/dl (8.6-10.4)
[2018-04-26] MEDS: (Novolog) Insulin Aspart, Recombinant 100 u/ml 10 ml vial SC SCH ×4 (08:25→21:22)
--- NOTE | 2018-04-26 12:32 | CP.PCM.PN ---
Subjective - Date & Time of Evaluation Date of Evaluation: 04/26/18 Time of Evaluation: 11:00 - Subjective Subjective: Podiatry Progress Note- Dr. Laguna 57 year old male patient was seen at bedside this morning for chronic ulceration to bilateral lower extremities. Patient is resting comfortably in bed , in NAD, and AAOx3. Patient reports that he is doing well. Reports the same pain to the LE that is managed by pain medications. Pain to the left leg greater than right. Dressing is clean, dry, intact without strikethrough. Denies acute overnight events. Denies nausea, fever, shortness of breath, chest pains or chills. No other pedal complaints at this time. Objective - Vital Signs/Intake and Output Vital Signs (last 24 hours): Temp Pulse Resp BP Pulse Ox 97.7 F 61 20 133/74 97 04/26/18 08:00 04/26/18 08:00 04/26/18 08:00 04/26/18 09:52 04/26/18 08:00 - Medications Medications: Current Medications Acetaminophen (Tylenol 325mg Tab) 650 mg PO Q6 PRN PRN Reason: Headache Docusate Sodium (Colace) 100 mg PO DAILY [facility] Last Admin: 04/26/18 09:52 Dose: 100 mg Furosemide (Lasix) 80 mg PO BID [facility] Last Admin: 04/26/18 09:52 Dose: 80 mg Gabapentin (Neurontin) 300 mg PO TID [facility] Last Admin: 04/26/18 09:52 Dose: 300 mg Hydralazine HCl (Apresoline) 25 mg PO BID [facility] Last Admin: 04/26/18 09:52 Dose: 25 mg Insulin Aspart (Novolog) 0 unit SC ACHS [facility] PRN Reason: Protocol Last Admin: 04/26/18 08:25 Dose: Not Given Levothyroxine Sodium (Synthroid) 75 mcg PO DAILY@0630 [facility] Last Admin: 04/26/18 06:25 Dose: 75 mcg Metformin HCl (Glucophage Xr) 1,000 mg PO BID [facility] Last Admin: 04/26/18 09:51 Dose: 1,000 mg Mupirocin (Bactroban Ointment) 0 gm TOP DAILY [facility] Last Admin: 04/26/18 10:16 Dose: 1 applic Nystatin (Nystop Topical Powder) 1 applic TOP BID [facility] Last Admin: 04/25/18 18:09 Dose: 1 applic Oxycodone HCl (Oxycontin Extended Release Tab) 80 mg PO Q6H [facility] Last Admin: 04/26/18 12:14 Dose: 80 mg Oxycodone HCl (Oxycontin Extended Release Tab) 80 mg PO Q6 [facility] Last Admin: 04/25/18 23:09 Dose: 80 mg Oxycodone/Acetaminophen (Percocet 5/325 Mg Tab) 2 tab PO Q4H PRN PRN Reason: Pain, moderate (4-7) Stop: 04/28/18 17:55 Last Admin: 04/26/18 09:52 Dose: 2 tab Warfarin Sodium (Coumadin) 7.5 mg PO 1800 [facility] Stop: 04/26/18 18:01 - Labs Labs: 04/26/18 07:50 04/26/18 07:50 PT 26.8 SECONDS (9.7-12.2) H 04/26/18 07:50 INR 2.4 04/26/18 07:50 APTT 39 SECONDS (21-34) H 04/22/18 17:06 - Constitutional Appears: Well, Non-toxic, No Acute Distress - Extremities Exam Extremities Exam: absent: Calf Tenderness Additional comments: Lower extremity focused exam: No strikethrough noted to outer layer of dressings bilaterally. Vasc: Non-palpable pedal pulses due to edema B/L, TG warm to warm, CFT < 3 sec to all digits, +1 pitting edema to bilateral lower extremities distal to tibial tuberosity Derm: Localized mild non-streaking, blanchable periwound erythema to mid-calf level B/L. Left: Multiple continuous open ulcerations extending from tibial tuberosity to medial malleolus noted to the mid leg circumferentially and posterior ulceration undergoing early stage re-epithelialization. Moderate active sanguinous drainage, wound base is 100% granular. No shital-wound macerations. No purulence noted, moderate malodor noted. Right: Open superficial ulceration noted to the medial aspect of leg at mid- calf level approximately 3.9 x 3.1 cm. Ulceration margins undergoing early stage re-epithelialization with no active sero-sanguinous drainage, wound base is 100% granular with no shital-wound macerations. No purulence noted, moderate malodor noted. Neuro: protective sensation mildly diminished MUSC: severe pain on palpation of posterior and medial legs B/L secondary to ulcerations, left > right - Neurological Exam Neurological Exam: Alert, Awake, Oriented x3 - Psychiatric Exam Psychiatric exam: Normal Affect, Normal Mood Assessment and Plan - Assessment and Plan (Free Text) Assessment: 57 year old male with bilateral chronic, recurrent wounds to the bilateral lower extremity Plan: Patient seen and evaluated with attending Dr. Laguna chart, labs, vitals; afebrile WBC=5.6 Left leg Wound cx form previous visit: MRSA, E coli, E Cloacae Ssp- at last visit Continue medical management per Medicine Team Continue local wound care: Saline cleanse, Telfa, DSD Ordered multipodus boots to offload LE. To be worn at all times while in bed. Patient to follow up with Dr. Laguna upon discharge Podiatry will continue to follow
--- NOTE | 2018-04-26 22:20 | CP.PCM.PN ---
Subjective - Date & Time of Evaluation Date of Evaluation: 04/26/18 Time of Evaluation: 20:40 - Subjective Subjective: Pt is trying to ambulated with help of physical therapy, left leg ulcer is persistant, INR is therapeutic Objective - Vital Signs/Intake and Output Vital Signs (last 24 hours): Temp Pulse Resp BP Pulse Ox 98.1 F 60 20 130/89 97 04/26/18 15:00 04/26/18 15:00 04/26/18 15:00 04/26/18 17:40 04/26/18 15:00 Intake and Output: 04/26/18 04/27/18 18:59 06:59 Intake Total 800 Balance 800 - Medications Medications: Current Medications Acetaminophen (Tylenol 325mg Tab) 650 mg PO Q6 PRN PRN Reason: Headache Docusate Sodium (Colace) 100 mg PO DAILY [facility] Last Admin: 04/26/18 09:52 Dose: 100 mg Furosemide (Lasix) 80 mg PO BID [facility] Last Admin: 04/26/18 17:40 Dose: 80 mg Gabapentin (Neurontin) 300 mg PO TID [facility] Last Admin: 04/26/18 17:40 Dose: 300 mg Hydralazine HCl (Apresoline) 25 mg PO BID [facility] Last Admin: 04/26/18 17:37 Dose: 25 mg Insulin Aspart (Novolog) 0 unit SC ACHS [facility] PRN Reason: Protocol Last Admin: 04/26/18 21:22 Dose: Not Given Levothyroxine Sodium (Synthroid) 75 mcg PO DAILY@0630 [facility] Last Admin: 04/26/18 06:25 Dose: 75 mcg Metformin HCl (Glucophage Xr) 1,000 mg PO BID [facility] Last Admin: 04/26/18 17:37 Dose: 1,000 mg Mupirocin (Bactroban Ointment) 0 gm TOP DAILY [facility] Last Admin: 04/26/18 10:16 Dose: 1 applic Nystatin (Nystop Topical Powder) 1 applic TOP BID [facility] Last Admin: 04/26/18 17:40 Dose: 1 applic Oxycodone HCl (Oxycontin Extended Release Tab) 80 mg PO Q6 [facility] Last Admin: 04/26/18 17:38 Dose: 80 mg Oxycodone/Acetaminophen (Percocet 5/325 Mg Tab) 2 tab PO Q4H PRN PRN Reason: Pain, moderate (4-7) Stop: 04/28/18 17:55 Last Admin: 04/26/18 19:06 Dose: 2 tab - Labs Labs: 04/26/18 07:50 04/26/18 07:50 PT 26.8 SECONDS (9.7-12.2) H 04/26/18 07:50 INR 2.4 04/26/18 07:50 APTT 39 SECONDS (21-34) H 04/22/18 17:06 Assessment and Plan (1) Ambulatory dysfunction Status: Acute (2) Chronic skin ulcer of lower leg Status: Acute (3) Morbid obesity Status: Acute (4) Cellulitis Status: Acute (5) HTN (hypertension) Status: Acute (6) Obstructive sleep apnea Status: Acute (7) Type 2 diabetes mellitus Status: Acute (8) Hypothyroidism Status: Chronic
[2018-04-27] MEDS: oxyCODONE 80 mg ER Tab (oxyCONTIN) PO SCH ×5 (00:44→23:55)
[2018-04-27] MEDS: Oxycodone/Acetaminophen 5/325 mg Tab PO PRN ×5 (03:40→21:38)
[2018-04-27] MEDS: Levothyroxine 75 MCG TAB PO SCH (06:08)
[2018-04-27] MEDS: (Novolog) Insulin Aspart, Recombinant 100 u/ml 10 ml vial SC SCH ×4 (07:32→21:29)
[2018-04-27 08:01] LABS: INR 2.6; PROTHROMBIN TIME 28.4 SECONDS (9.7-12.2)
[2018-04-27 08:10] LABS: BASO # 0.1 K/uL (0.0-0.2); BASO % 0.9 % (0.0-2.0); EOS # 0.3 K/uL (0.0-0.7); EOS % 4.6 % (0.0-4.0); HEMOGLOBIN 11.7 g/dL (12.0-18.0); LYMPH # 1.7 K/uL (1.0-4.3); LYMPH % 29.1 % (20.0-40.0); MEAN CELL VOLUME 79.1 fL (80.0-94.0); MEAN CORPUSCULAR HEMOGLOBIN 27.1 pg (27.0-31.0); MEAN CORPUSCULAR HGB CONC 34.3 g/dL (33.0-37.0); MEAN PLATELET VOLUME 10.5 fL (7.2-11.7); MONO # 0.5 K/uL (0.0-0.8); MONO % 7.6 % (0.0-10.0); NEUT # 3.5 K/uL (1.8-7.0); NEUT % 57.8 % (50.0-75.0); NRBC % 0.1 % (0.0-2.0); RBC 4.31 Mil/uL (4.40-5.90); RED CELL DISTRIBUTION WIDTH 17.9 % (11.5-14.5)
[2018-04-27 08:18] LABS: ALB/GLOB RATIO 0.9 (1.0-2.1); ALBUMIN 3.7 g/dL (3.5-5.0); CALCIUM 9.1 mg/dl (8.6-10.4)
--- NOTE | 2018-04-27 22:54 | CP.PCM.PN ---
Subjective - Date & Time of Evaluation Date of Evaluation: 04/27/18 Time of Evaluation: 18:00 - Subjective Subjective: PT SEEN AND EXAMINED TODAY Objective - Vital Signs/Intake and Output Vital Signs (last 24 hours): Temp Pulse Resp BP Pulse Ox 98.2 F 67 20 130/72 97 04/27/18 15:37 04/27/18 15:37 04/27/18 15:37 04/27/18 17:45 04/27/18 15:37 Intake and Output: 04/27/18 04/28/18 18:59 06:59 Intake Total 480 800 Output Total 400 Balance 80 800 - Medications Medications: Current Medications Acetaminophen (Tylenol 325mg Tab) 650 mg PO Q6 PRN PRN Reason: Headache Docusate Sodium (Colace) 100 mg PO DAILY [facility] Last Admin: 04/27/18 09:02 Dose: 100 mg Furosemide (Lasix) 80 mg PO BID [facility] Last Admin: 04/27/18 17:45 Dose: 80 mg Gabapentin (Neurontin) 300 mg PO TID [facility] Last Admin: 04/27/18 17:47 Dose: 300 mg Hydralazine HCl (Apresoline) 25 mg PO BID [facility] Last Admin: 04/27/18 17:45 Dose: 25 mg Insulin Aspart (Novolog) 0 unit SC ACHS [facility] PRN Reason: Protocol Last Admin: 04/27/18 21:29 Dose: Not Given Levothyroxine Sodium (Synthroid) 75 mcg PO DAILY@0630 [facility] Last Admin: 04/27/18 06:08 Dose: 75 mcg Metformin HCl (Glucophage Xr) 1,000 mg PO BID [facility] Last Admin: 04/27/18 17:45 Dose: 1,000 mg Mupirocin (Bactroban Ointment) 0 gm TOP DAILY [facility] Last Admin: 04/27/18 09:03 Dose: 1 applic Nystatin (Nystop Topical Powder) 1 applic TOP BID [facility] Last Admin: 04/27/18 17:48 Dose: 1 applic Oxycodone HCl (Oxycontin Extended Release Tab) 80 mg PO Q6 [facility] Last Admin: 04/27/18 18:22 Dose: 80 mg Oxycodone/Acetaminophen (Percocet 5/325 Mg Tab) 2 tab PO Q4H PRN PRN Reason: Pain, moderate (4-7) Stop: 04/28/18 17:55 Last Admin: 04/27/18 21:38 Dose: 2 tab - Labs Labs: 04/27/18 07:46 04/27/18 07:46 PT 28.4 SECONDS (9.7-12.2) H 04/27/18 07:46 INR 2.6 04/27/18 07:46 APTT 39 SECONDS (21-34) H 04/22/18 17:06 Assessment and Plan (1) Ambulatory dysfunction Status: Acute (2) Chronic skin ulcer of lower leg Status: Acute (3) Morbid obesity Status: Acute (4) Cellulitis Status: Acute (5) HTN (hypertension) Status: Acute (6) Obstructive sleep apnea Status: Acute (7) Type 2 diabetes mellitus Status: Acute (8) Hypothyroidism Status: Chronic
[2018-04-28] MEDS: Oxycodone/Acetaminophen 5/325 mg Tab PO PRN ×4 (02:19→19:42)
[2018-04-28] MEDS: Levothyroxine 75 MCG TAB PO SCH (06:33)
[2018-04-28] MEDS: oxyCODONE 80 mg ER Tab (oxyCONTIN) PO SCH ×4 (06:35→23:55)
[2018-04-28] MEDS: (Novolog) Insulin Aspart, Recombinant 100 u/ml 10 ml vial SC SCH ×5 (07:47→21:23)
[2018-04-28 08:01] LABS: BASO # 0.1 K/uL (0.0-0.2); BASO % 1.1 % (0.0-2.0); EOS # 0.2 K/uL (0.0-0.7); EOS % 3.9 % (0.0-4.0); LYMPH # 1.6 K/uL (1.0-4.3); LYMPH % 26.1 % (20.0-40.0); MEAN CELL VOLUME 79.1 fL (80.0-94.0); MEAN CORPUSCULAR HEMOGLOBIN 26.9 pg (27.0-31.0); MEAN PLATELET VOLUME 10.6 fL (7.2-11.7); MONO # 0.4 K/uL (0.0-0.8); MONO % 7.1 % (0.0-10.0); NEUT # 3.7 K/uL (1.8-7.0); NEUT % 61.8 % (50.0-75.0); RBC 4.44 Mil/uL (4.40-5.90); WHITE BLOOD COUNT 6.1 K/uL (4.8-10.8)
[2018-04-28 08:05] LABS: INR 2.3; PROTHROMBIN TIME 25.4 SECONDS (9.7-12.2)
[2018-04-28 08:36] LABS: ALBUMIN 4.3 g/dL (3.5-5.0); CALCIUM 9.1 mg/dl (8.6-10.4)
--- NOTE | 2018-04-28 12:11 | CP.PCM.PN ---
Subjective - Date & Time of Evaluation Date of Evaluation: 04/28/18 Time of Evaluation: 12:09 - Subjective Subjective: Podiatry Progress Note- Dr. Laguna 57 year old male patient was seen at bedside this morning for chronic ulceration to bilateral lower extremities. Patient is resting comfortably in bed , in NAD, and AAOx3. Patient reports that he is doing well. Reports the same pain to the LE that is managed by pain medications. Pain to the left leg greater than right. Dressing is clean, dry, intact without strikethrough. Denies acute overnight events. Denies nausea, fever, shortness of breath, chest pains or chills. No other pedal complaints at this time. Objective - Vital Signs/Intake and Output Vital Signs (last 24 hours): Temp Pulse Resp BP Pulse Ox 98.1 F 64 20 137/81 96 04/28/18 07:00 04/28/18 07:00 04/28/18 07:00 04/28/18 09:04 04/28/18 07:00 Intake and Output: 04/28/18 04/28/18 06:59 18:59 Intake Total 800 Output Total 850 Balance 800 -850 - Medications Medications: Current Medications Acetaminophen (Tylenol 325mg Tab) 650 mg PO Q6 PRN PRN Reason: Headache Docusate Sodium (Colace) 100 mg PO DAILY [facility] Last Admin: 04/28/18 09:04 Dose: 100 mg Furosemide (Lasix) 80 mg PO BID [facility] Last Admin: 04/28/18 09:04 Dose: 80 mg Gabapentin (Neurontin) 300 mg PO TID [facility] Last Admin: 04/28/18 09:04 Dose: 300 mg Hydralazine HCl (Apresoline) 25 mg PO BID [facility] Last Admin: 04/28/18 09:04 Dose: 25 mg Insulin Aspart (Novolog) 0 unit SC ACHS [facility] PRN Reason: Protocol Last Admin: 04/28/18 07:47 Dose: Not Given Levothyroxine Sodium (Synthroid) 75 mcg PO DAILY@0630 [facility] Last Admin: 04/27/18 06:08 Dose: 75 mcg Metformin HCl (Glucophage Xr) 1,000 mg PO BID [facility] Last Admin: 04/28/18 09:04 Dose: 1,000 mg Mupirocin (Bactroban Ointment) 0 gm TOP DAILY [facility] Last Admin: 04/28/18 09:07 Dose: 1 applic Nystatin (Nystop Topical Powder) 1 applic TOP BID [facility] Last Admin: 04/28/18 09:05 Dose: 1 applic Oxycodone HCl (Oxycontin Extended Release Tab) 80 mg PO Q6 [facility] Last Admin: 04/28/18 12:08 Dose: 80 mg Oxycodone/Acetaminophen (Percocet 5/325 Mg Tab) 2 tab PO Q4H PRN PRN Reason: Pain, moderate (4-7) Stop: 04/28/18 17:55 Last Admin: 04/28/18 07:51 Dose: 2 tab - Labs Labs: 04/28/18 07:41 04/28/18 07:41 PT 25.4 SECONDS (9.7-12.2) H 04/28/18 07:41 INR 2.3 04/28/18 07:41 APTT 39 SECONDS (21-34) H 04/22/18 17:06 - Constitutional Appears: Well, Non-toxic, No Acute Distress - Extremities Exam Additional comments: Lower extremity focused exam: No strikethrough noted to outer layer of dressings bilaterally. Vasc: Non-palpable pedal pulses due to edema B/L, TG warm to warm, CFT < 3 sec to all digits, +1 pitting edema to bilateral lower extremities distal to tibial tuberosity Derm: Localized mild non-streaking, blanchable periwound erythema to mid-calf level B/L. Left: Multiple continuous open ulcerations extending from tibial tuberosity to medial malleolus noted to the mid leg circumferentially and posterior ulceration undergoing early stage re-epithelialization. Moderate active sanguinous drainage, wound base is 100% granular. No shital-wound macerations. No purulence noted, moderate malodor noted. Right: Open superficial ulceration noted to the medial aspect of leg at mid- calf level approximately 3.9 x 3.1 cm. Ulceration margins undergoing early stage re-epithelialization with no active sero-sanguinous drainage, wound base is 100% granular with no shital-wound macerations. No purulence noted, moderate malodor noted. Neuro: protective sensation mildly diminished MUSC: severe pain on palpation of posterior and medial legs B/L secondary to ulcerations, left > right - Neurological Exam Neurological Exam: Alert, Awake - Psychiatric Exam Psychiatric exam: Normal Affect, Normal Mood Assessment and Plan - Assessment and Plan (Free Text) Assessment: 57 year old male with bilateral chronic, recurrent wounds to the bilateral lower extremity Plan: Patient seen and evaluated discussed with attending Dr. Laguna chart, labs, vitals; afebrile WBC=6.1 Left leg Wound cx form previous visit: MRSA, E coli, E Cloacae Ssp- at last visit Continue medical management per Medicine Team Continue local wound care: Saline cleanse, Telfa, DSD cont. wearing multipodus boots to offload LE. To be worn at all times while in bed. Patient to follow up with Dr. Laguna upon discharge Podiatry will continue to follow
--- NOTE | 2018-04-28 23:43 | CP.PCM.PN ---
Subjective - Date & Time of Evaluation Date of Evaluation: 04/28/18 Time of Evaluation: 19:00 - Subjective Subjective: Patient was seen at bedside , c/o pain in left wrist, chronic ulceration to bilateral lower extremities. Patient is resting comfortably in bed, in NAD, and AAOx3. Patient reports that he is doing well. Reports the same pain to the LE that is managed by pain medications. Pain to the left leg greater than right. Dressing is clean, dry, intact without strikethrough. Denies acute overnight events.pt is on physical therapy, rehab Denies nausea, fever, shortness of breath, chest pains or chills. No other pedal complaints at this time. Objective - Vital Signs/Intake and Output Vital Signs (last 24 hours): Temp Pulse Resp BP Pulse Ox 97.6 F 71 20 102/66 95 04/28/18 23:31 04/28/18 23:31 04/28/18 23:31 04/28/18 23:31 04/28/18 23:31 Intake and Output: 04/28/18 04/29/18 18:59 06:59 Intake Total 900 Output Total 1950 Balance -1950 900 - Medications Medications: Current Medications Acetaminophen (Tylenol 325mg Tab) 650 mg PO Q6 PRN PRN Reason: Headache Docusate Sodium (Colace) 100 mg PO DAILY [facility] Last Admin: 04/28/18 09:04 Dose: 100 mg Furosemide (Lasix) 80 mg PO BID [facility] Last Admin: 04/28/18 18:08 Dose: 80 mg Gabapentin (Neurontin) 300 mg PO TID [facility] Last Admin: 04/28/18 18:08 Dose: 300 mg Hydralazine HCl (Apresoline) 25 mg PO BID [facility] Last Admin: 04/28/18 18:08 Dose: 25 mg Insulin Aspart (Novolog) 0 unit SC ACHS [facility] PRN Reason: Protocol Last Admin: 04/28/18 21:23 Dose: Not Given Levothyroxine Sodium (Synthroid) 75 mcg PO DAILY@0630 [facility] Last Admin: 04/28/18 06:33 Dose: 75 mcg Metformin HCl (Glucophage Xr) 1,000 mg PO BID [facility] Last Admin: 04/28/18 18:08 Dose: 1,000 mg Mupirocin (Bactroban Ointment) 0 gm TOP DAILY [facility] Last Admin: 04/28/18 09:07 Dose: 1 applic Nystatin (Nystop Topical Powder) 1 applic TOP BID [facility] Last Admin: 04/28/18 19:43 Dose: 1 applic Oxycodone HCl (Oxycontin Extended Release Tab) 80 mg PO Q6 [facility] Last Admin: 04/28/18 18:09 Dose: 80 mg Oxycodone/Acetaminophen (Percocet 5/325 Mg Tab) 2 tab PO Q4H PRN PRN Reason: Pain, moderate (4-7) Stop: 05/01/18 19:20 Last Admin: 04/28/18 19:42 Dose: 2 tab - Labs Labs: 04/28/18 07:41 04/28/18 07:41 PT 25.4 SECONDS (9.7-12.2) H 04/28/18 07:41 INR 2.3 04/28/18 07:41 APTT 39 SECONDS (21-34) H 04/22/18 17:06 - Constitutional Appears: No Acute Distress - Head Exam Head Exam: ATRAUMATIC, NORMAL INSPECTION, NORMOCEPHALIC - Eye Exam Eye Exam: EOMI, Normal appearance, PERRL Pupil Exam: NORMAL ACCOMODATION, PERRL - ENT Exam ENT Exam: Mucous Membranes Moist, Normal Exam - Neck Exam Neck Exam: Full ROM, Normal Inspection. absent: Lymphadenopathy - Respiratory Exam Respiratory Exam: Decreased Breath Sounds, Rales, Rhonchi - Cardiovascular Exam Cardiovascular Exam: REGULAR RHYTHM, +S1, +S2. absent: Murmur - GI/Abdominal Exam GI & Abdominal Exam: Soft, Normal Bowel Sounds. absent: Tenderness Assessment and Plan (1) Ambulatory dysfunction Status: Acute (2) Chronic skin ulcer of lower leg Status: Acute (3) Morbid obesity Status: Acute (4) Cellulitis Status: Acute (5) HTN (hypertension) Status: Acute (6) Obstructive sleep apnea Status: Acute (7) Type 2 diabetes mellitus Status: Acute (8) Hypothyroidism Status: Chronic
[2018-04-29] MEDS: Oxycodone/Acetaminophen 5/325 mg Tab PO PRN ×5 (01:16→21:23)
[2018-04-29] MEDS: Levothyroxine 75 MCG TAB PO SCH (06:10)
[2018-04-29] MEDS: oxyCODONE 80 mg ER Tab (oxyCONTIN) PO SCH ×3 (06:10→18:16)
[2018-04-29] MEDS: (Novolog) Insulin Aspart, Recombinant 100 u/ml 10 ml vial SC SCH ×4 (08:10→21:24)
--- NOTE | 2018-04-29 11:45 | CP.PCM.PN ---
Subjective - Date & Time of Evaluation Date of Evaluation: 04/29/18 Time of Evaluation: 11:43 - Subjective Subjective: Podiatry Progress Note- Dr. Laguna 57 year old male patient was seen at bedside this morning for chronic ulceration to bilateral lower extremities. Patient is resting comfortably in bed , in NAD, and AAOx3. Patient reports that he is doing well. Reports the same pain to the LE that is managed by pain medications. Pain to the left leg greater than right. Dressing is clean, dry, intact without strikethrough. Denies acute overnight events. Denies nausea, fever, shortness of breath, chest pains or chills. No other pedal complaints at this time. Objective - Vital Signs/Intake and Output Vital Signs (last 24 hours): Temp Pulse Resp BP Pulse Ox 97.7 F 63 20 136/85 95 04/29/18 07:24 04/29/18 07:24 04/29/18 07:24 04/29/18 10:16 04/29/18 07:24 Intake and Output: 04/29/18 04/29/18 06:59 18:59 Intake Total 900 Balance 900 - Medications Medications: Current Medications Acetaminophen (Tylenol 325mg Tab) 650 mg PO Q6 PRN PRN Reason: Headache Docusate Sodium (Colace) 100 mg PO DAILY [facility] Last Admin: 04/29/18 10:16 Dose: 100 mg Furosemide (Lasix) 80 mg PO BID [facility] Last Admin: 04/29/18 10:16 Dose: 80 mg Gabapentin (Neurontin) 300 mg PO TID [facility] Last Admin: 04/29/18 10:16 Dose: 300 mg Hydralazine HCl (Apresoline) 25 mg PO BID [facility] Last Admin: 04/29/18 10:16 Dose: 25 mg Insulin Aspart (Novolog) 0 unit SC ACHS [facility] PRN Reason: Protocol Last Admin: 04/29/18 08:10 Dose: Not Given Levothyroxine Sodium (Synthroid) 75 mcg PO DAILY@0630 [facility] Last Admin: 04/29/18 06:10 Dose: 75 mcg Metformin HCl (Glucophage Xr) 1,000 mg PO BID [facility] Last Admin: 04/29/18 10:16 Dose: 1,000 mg Mupirocin (Bactroban Ointment) 0 gm TOP DAILY [facility] Last Admin: 04/28/18 09:07 Dose: 1 applic Nystatin (Nystop Topical Powder) 1 applic TOP BID [facility] Last Admin: 04/29/18 10:20 Dose: 1 applic Oxycodone HCl (Oxycontin Extended Release Tab) 80 mg PO Q6 [facility] Last Admin: 04/29/18 06:10 Dose: 80 mg Oxycodone/Acetaminophen (Percocet 5/325 Mg Tab) 2 tab PO Q4H PRN PRN Reason: Pain, moderate (4-7) Stop: 05/01/18 19:20 Last Admin: 04/29/18 11:16 Dose: 2 tab - Labs Labs: 04/28/18 07:41 04/28/18 07:41 PT 25.4 SECONDS (9.7-12.2) H 04/28/18 07:41 INR 2.3 04/28/18 07:41 APTT 39 SECONDS (21-34) H 04/22/18 17:06 - Constitutional Appears: Well, Non-toxic, No Acute Distress - Extremities Exam Additional comments: Lower extremity focused exam: No strikethrough noted to outer layer of dressings bilaterally. Vasc: Non-palpable pedal pulses due to edema B/L, TG warm to warm, CFT < 3 sec to all digits, +1 pitting edema to bilateral lower extremities distal to tibial tuberosity Derm: Localized mild non-streaking, blanchable periwound erythema to mid-calf level B/L. Left: Multiple continuous open ulcerations extending from tibial tuberosity to medial malleolus noted to the mid leg circumferentially and posterior ulceration undergoing early stage re-epithelialization. Moderate active sanguinous drainage, wound base is 100% granular. No shital-wound macerations. No purulence noted, moderate malodor noted. Right: Open superficial ulceration noted to the medial aspect of leg at mid- calf level approximately 3.9 x 3.1 cm. Ulceration margins undergoing early stage re-epithelialization with no active sero-sanguinous drainage, wound base is 100% granular with no shital-wound macerations. No purulence noted, moderate malodor noted. Neuro: protective sensation mildly diminished MUSC: severe pain on palpation of posterior and medial legs B/L secondary to ulcerations, left > right - Neurological Exam Neurological Exam: Alert, Awake, Oriented x3 - Psychiatric Exam Psychiatric exam: Normal Affect, Normal Mood Assessment and Plan - Assessment and Plan (Free Text) Assessment: 57 year old male with bilateral chronic, recurrent wounds to the bilateral lower extremity Plan: Patient seen and evaluated discussed with attending Dr. Laguna chart, labs, vitals; afebrile, absent leukocytosis Left leg Wound cx form previous visit: MRSA, E coli, E Cloacae Ssp Continue medical management per Medicine Team Continue local wound care: Saline cleanse, bactroban, Telfa,ABD DSD cont. using pillows to offload LE. To be used at all times while in bed. Patient to follow up with Dr. Laguna upon discharge Podiatry will continue to follow
[2018-04-29 11:54] LABS: INR 2.1
--- NOTE | 2018-04-29 23:06 | CP.PCM.PN ---
Subjective - Date & Time of Evaluation Date of Evaluation: 04/29/18 Time of Evaluation: 17:00 - Subjective Subjective: Pt seen and examined at bedside, ERCP done yesterday his cough, congestion is resolved, afebrile, pt is for discharge Objective - Vital Signs/Intake and Output Vital Signs (last 24 hours): Temp Pulse Resp BP Pulse Ox 98.4 F 73 20 108/66 97 04/29/18 15:40 04/29/18 15:40 04/29/18 15:40 04/29/18 18:17 04/29/18 15:40 Intake and Output: 04/29/18 04/30/18 18:59 06:59 Output Total 850 Balance -850 - Medications Medications: Current Medications Acetaminophen (Tylenol 325mg Tab) 650 mg PO Q6 PRN PRN Reason: Headache Docusate Sodium (Colace) 100 mg PO DAILY [facility] Last Admin: 04/29/18 10:16 Dose: 100 mg Furosemide (Lasix) 80 mg PO BID [facility] Last Admin: 04/29/18 18:17 Dose: 80 mg Gabapentin (Neurontin) 300 mg PO TID [facility] Last Admin: 04/29/18 18:15 Dose: 300 mg Hydralazine HCl (Apresoline) 25 mg PO BID [facility] Last Admin: 04/29/18 18:15 Dose: 25 mg Insulin Aspart (Novolog) 0 unit SC ACHS [facility] PRN Reason: Protocol Last Admin: 04/29/18 21:24 Dose: Not Given Levothyroxine Sodium (Synthroid) 75 mcg PO DAILY@0630 [facility] Last Admin: 04/29/18 06:10 Dose: 75 mcg Metformin HCl (Glucophage Xr) 1,000 mg PO BID [facility] Last Admin: 04/29/18 18:15 Dose: 1,000 mg Mupirocin (Bactroban Ointment) 0 gm TOP DAILY [facility] Last Admin: 04/29/18 10:17 Dose: 1 applic Nystatin (Nystop Topical Powder) 1 applic TOP BID [facility] Last Admin: 04/29/18 18:20 Dose: 1 applic Oxycodone HCl (Oxycontin Extended Release Tab) 80 mg PO Q6 [facility] Last Admin: 04/29/18 18:16 Dose: 80 mg Oxycodone/Acetaminophen (Percocet 5/325 Mg Tab) 2 tab PO Q4H PRN PRN Reason: Pain, moderate (4-7) Stop: 05/01/18 19:20 Last Admin: 04/29/18 21:23 Dose: 2 tab - Labs Labs: 04/28/18 07:41 04/28/18 07:41 PT 23.0 SECONDS (9.7-12.2) H 04/29/18 11:26 INR 2.1 04/29/18 11:26 APTT 39 SECONDS (21-34) H 04/22/18 17:06 - Constitutional Appears: No Acute Distress - Head Exam Head Exam: ATRAUMATIC, NORMAL INSPECTION, NORMOCEPHALIC - Eye Exam Eye Exam: EOMI, Normal appearance, PERRL Pupil Exam: NORMAL ACCOMODATION, PERRL - Respiratory Exam Respiratory Exam: Decreased Breath Sounds, Wheezes - Cardiovascular Exam Cardiovascular Exam: REGULAR RHYTHM, +S1, +S2. absent: Murmur - GI/Abdominal Exam GI & Abdominal Exam: Soft, Normal Bowel Sounds. absent: Tenderness Assessment and Plan (1) Ambulatory dysfunction Status: Acute (2) Chronic skin ulcer of lower leg Status: Acute (3) Morbid obesity Status: Acute (4) Cellulitis Status: Acute (5) HTN (hypertension) Status: Acute (6) Obstructive sleep apnea Status: Acute (7) Type 2 diabetes mellitus Status: Acute (8) Hypothyroidism Status: Chronic (9) Chronic pain Status: Acute
[2018-04-30] MEDS: Oxycodone/Acetaminophen 5/325 mg Tab PO PRN ×3 (04:53→20:10)
[2018-04-30] MEDS: Levothyroxine 75 MCG TAB PO SCH (06:26)
[2018-04-30] MEDS: oxyCODONE 80 mg ER Tab (oxyCONTIN) PO SCH ×4 (06:26→18:04)
[2018-04-30] MEDS: (Novolog) Insulin Aspart, Recombinant 100 u/ml 10 ml vial SC SCH ×4 (07:30→21:41)
[2018-04-30 07:56] LABS: INR 2.4; PROTHROMBIN TIME 26.3 SECONDS (9.7-12.2)
[2018-04-30 08:02] LABS: BASO # 0.1 K/uL (0.0-0.2); BASO % 1.1 % (0.0-2.0); EOS # 0.3 K/uL (0.0-0.7); EOS % 4.4 % (0.0-4.0); HEMOGLOBIN 11.7 g/dL (12.0-18.0); LYMPH # 1.6 K/uL (1.0-4.3); LYMPH % 27.5 % (20.0-40.0); MEAN CELL VOLUME 79.9 fL (80.0-94.0); MEAN CORPUSCULAR HEMOGLOBIN 27.7 pg (27.0-31.0); MEAN CORPUSCULAR HGB CONC 34.6 g/dL (33.0-37.0); MEAN PLATELET VOLUME 10.6 fL (7.2-11.7); MONO # 0.4 K/uL (0.0-0.8); MONO % 7.6 % (0.0-10.0); NEUT # 3.4 K/uL (1.8-7.0); NEUT % 59.4 % (50.0-75.0); RBC 4.21 Mil/uL (4.40-5.90); RED CELL DISTRIBUTION WIDTH 17.7 % (11.5-14.5); WHITE BLOOD COUNT 5.8 K/uL (4.8-10.8)
[2018-04-30 08:26] LABS: ALBUMIN 3.9 g/dL (3.5-5.0); ALT/SGPT 13 U/L (21-72); AST/SGOT 31 U/L (17-59); BLOOD UREA NITROGEN 36 mg/dL (9-20); CALCIUM 9.1 mg/dl (8.6-10.4); GFR AFRICAN-AMERICAN > 60; GFR NON-AFRICAN AMERICAN 57
--- NOTE | 2018-04-30 10:21 | CP.PCM.PN ---
Subjective - Date & Time of Evaluation Date of Evaluation: 04/30/18 Time of Evaluation: 10:21 - Subjective Subjective: PATIENT AAOX3 DENIES CHEST PAIN OR SOB DRESSING DRY AND INTACT NO SIGN OF DISTRESS NOTED Objective - Vital Signs/Intake and Output Vital Signs (last 24 hours): Temp Pulse Resp BP Pulse Ox 98.1 F 67 20 128/79 94 L 04/30/18 08:05 04/30/18 08:05 04/30/18 08:05 04/30/18 09:57 04/30/18 08:05 Intake and Output: 04/30/18 04/30/18 06:59 18:59 Output Total 500 Balance -500 - Medications Medications: Current Medications Acetaminophen (Tylenol 325mg Tab) 650 mg PO Q6 PRN PRN Reason: Headache Docusate Sodium (Colace) 100 mg PO DAILY [facility] Last Admin: 04/30/18 09:58 Dose: 100 mg Furosemide (Lasix) 80 mg PO BID [facility] Last Admin: 04/30/18 09:57 Dose: 80 mg Gabapentin (Neurontin) 300 mg PO TID [facility] Last Admin: 04/30/18 09:58 Dose: 300 mg Hydralazine HCl (Apresoline) 25 mg PO BID [facility] Last Admin: 04/30/18 09:58 Dose: 25 mg Insulin Aspart (Novolog) 0 unit SC ACHS [facility] PRN Reason: Protocol Last Admin: 04/30/18 07:30 Dose: Not Given Levothyroxine Sodium (Synthroid) 75 mcg PO DAILY@0630 [facility] Last Admin: 04/30/18 06:26 Dose: 75 mcg Metformin HCl (Glucophage Xr) 1,000 mg PO BID [facility] Last Admin: 04/30/18 09:58 Dose: 1,000 mg Mupirocin (Bactroban Ointment) 0 gm TOP DAILY [facility] Last Admin: 04/30/18 09:58 Dose: 1 applic Nystatin (Nystop Topical Powder) 1 applic TOP BID [facility] Last Admin: 04/30/18 09:58 Dose: 1 applic Oxycodone HCl (Oxycontin Extended Release Tab) 80 mg PO Q6 [facility] Last Admin: 04/30/18 06:26 Dose: 80 mg Oxycodone/Acetaminophen (Percocet 5/325 Mg Tab) 2 tab PO Q4H PRN PRN Reason: Pain, moderate (4-7) Stop: 05/01/18 19:20 Last Admin: 04/30/18 09:56 Dose: 2 tab - Labs Labs: 04/30/18 07:38 04/30/18 07:38 PT 26.3 SECONDS (9.7-12.2) H 04/30/18 07:38 INR 2.4 04/30/18 07:38 APTT 39 SECONDS (21-34) H 04/22/18 17:06 Assessment and Plan - Assessment and Plan (Free Text) Assessment: SEEN AND EXAMINED AT THE BEDSIDE BAM SOUND CLEAR AFEBRILE/ WBC WNL / VITAL SIGN STABLE DISCUSS WITH WITH PMD WHO CLEAR FOR DC follow up with DR Laguna as advised for wound care follow up with PMDin 1 week continue with coumadin at home as advised. call dr campos or go to the emergency room if symptoms return or worsening DISCUSS WITH PATIENT WHO AGREE AND VERBALIZED UNDERSTANDING
--- NOTE | 2018-04-30 15:12 | CP.PCM.PN ---
Subjective - Date & Time of Evaluation Date of Evaluation: 04/30/18 Time of Evaluation: 15:06 - Subjective Subjective: Podiatry Progress Note- Dr. Laguna 57 year old male patient was seen at bedside this morning for chronic ulceration to bilateral lower extremities. Patient is resting comfortably in bed , in NAD, and AAOx3. Patient is seen while performing physical therapy for his hand. Reports that he will be going home today. Reports that since the dressing is not saturated he does not want it changed. Reports that he will have the nurse change in the morning. Denies of any acute overnight events. Denies of any pain to the legs today. Reports he has pain if someone touches it. No recent F/N/V/C/SOB/CP/headache. No other pedal complains. Objective - Vital Signs/Intake and Output Vital Signs (last 24 hours): Temp Pulse Resp BP Pulse Ox 98.1 F 67 20 128/79 94 L 04/30/18 08:05 04/30/18 08:05 04/30/18 08:05 04/30/18 09:57 04/30/18 08:05 Intake and Output: 04/30/18 04/30/18 06:59 18:59 Output Total 500 Balance -500 - Medications Medications: Current Medications Acetaminophen (Tylenol 325mg Tab) 650 mg PO Q6 PRN PRN Reason: Headache Docusate Sodium (Colace) 100 mg PO DAILY [facility] Last Admin: 04/30/18 09:58 Dose: 100 mg Furosemide (Lasix) 80 mg PO BID [facility] Last Admin: 04/30/18 09:57 Dose: 80 mg Gabapentin (Neurontin) 300 mg PO TID [facility] Last Admin: 04/30/18 13:01 Dose: 300 mg Hydralazine HCl (Apresoline) 25 mg PO BID [facility] Last Admin: 04/30/18 09:58 Dose: 25 mg Insulin Aspart (Novolog) 0 unit SC ACHS [facility] PRN Reason: Protocol Last Admin: 04/30/18 12:20 Dose: 1 unit Levothyroxine Sodium (Synthroid) 75 mcg PO DAILY@0630 [facility] Last Admin: 04/30/18 06:26 Dose: 75 mcg Metformin HCl (Glucophage Xr) 1,000 mg PO BID [facility] Last Admin: 04/30/18 09:58 Dose: 1,000 mg Mupirocin (Bactroban Ointment) 0 gm TOP DAILY [facility] Last Admin: 04/30/18 09:58 Dose: 1 applic Nystatin (Nystop Topical Powder) 1 applic TOP BID [facility] Last Admin: 04/30/18 09:58 Dose: 1 applic Oxycodone HCl (Oxycontin Extended Release Tab) 80 mg PO Q6 [facility] Last Admin: 04/30/18 12:12 Dose: 80 mg Oxycodone/Acetaminophen (Percocet 5/325 Mg Tab) 2 tab PO Q4H PRN PRN Reason: Pain, moderate (4-7) Stop: 05/01/18 19:20 Last Admin: 04/30/18 09:56 Dose: 2 tab - Labs Labs: 04/30/18 07:38 04/30/18 07:38 PT 26.3 SECONDS (9.7-12.2) H 04/30/18 07:38 INR 2.4 04/30/18 07:38 APTT 39 SECONDS (21-34) H 04/22/18 17:06 - Constitutional Appears: Well, Non-toxic, No Acute Distress - Extremities Exam Additional comments: Dressing on b/l LE is clean, dry and intact. No strike through noted - Neurological Exam Neurological Exam: Alert, Awake, Oriented x3 - Psychiatric Exam Psychiatric exam: Normal Affect, Normal Mood Assessment and Plan - Assessment and Plan (Free Text) Assessment: 57 year old male with bilateral chronic, recurrent wounds to the bilateral lower extremity Plan: Patient seen and evaluated discussed with attending Dr. Laguna chart, labs, vitals; afebrile, absent leukocytosis Left leg Wound cx form previous visit: MRSA, E coli, E Clo[place]ae Ssp Continue medical management per Medicine Team Continue local wound care: Saline cleanse, bactroban, Telfa,ABD DSD cont. using pillows to offload LE. To be used at all times while in bed. Patient to follow up with Dr. Laguna upon discharge Podiatry will continue to follow
[2018-04-30 16:02] VITALS: O2SAT 97
[2018-04-30 23:22] VITALS: BP 113/65; PULSE 84; RESP 18; TEMP 98.5
--- NOTE | 2018-05-01 05:14 | CP.PCM.DIS ---
Provider - Provider Date of Admission: 04/16/18 04:35 Attending physician: Estrada Albright MD Time Spent in preparation of Discharge (in minutes): 56 Diagnosis - Discharge Diagnosis (1) Ambulatory dysfunction Status: Acute (2) Chronic skin ulcer of lower leg Status: Acute (3) Morbid obesity Status: Acute (4) Cellulitis Status: Acute (5) HTN (hypertension) Status: Acute (6) Obstructive sleep apnea Status: Acute (7) Type 2 diabetes mellitus Status: Acute (8) Hypothyroidism Status: Chronic Priority: Medium Hospital Course - Lab Results Lab Results: Most Recent Lab Values WBC 5.8 K/uL (4.8-10.8) 04/30/18 07:38 RBC 4.21 Mil/uL (4.40-5.90) L 04/30/18 07:38 Hgb 11.7 g/dL (12.0-18.0) L 04/30/18 07:38 Hct 33.7 % (35.0-51.0) L 04/30/18 07:38 MCV 79.9 fL (80.0-94.0) L 04/30/18 07:38 MCH 27.7 pg (27.0-31.0) 04/30/18 07:38 MCHC 34.6 g/dL (33.0-37.0) 04/30/18 07:38 RDW 17.7 % (11.5-14.5) H 04/30/18 07:38 Plt Count 141 K/uL (130-400) 04/30/18 07:38 MPV 10.6 fL (7.2-11.7) 04/30/18 07:38 Neut % (Auto) 59.4 % (50.0-75.0) 04/30/18 07:38 Lymph % (Auto) 27.5 % (20.0-40.0) 04/30/18 07:38 Marshall % (Auto) 7.6 % (0.0-10.0) 04/30/18 07:38 Eos % (Auto) 4.4 % (0.0-4.0) H 04/30/18 07:38 Baso % (Auto) 1.1 % (0.0-2.0) 04/30/18 07:38 Neut # (Auto) 3.4 K/uL (1.8-7.0) 04/30/18 07:38 Lymph # (Auto) 1.6 K/uL (1.0-4.3) 04/30/18 07:38 Marshall # (Auto) 0.4 K/uL (0.0-0.8) 04/30/18 07:38 Eos # (Auto) 0.3 K/uL (0.0-0.7) 04/30/18 07:38 Baso # (Auto) 0.1 K/uL (0.0-0.2) 04/30/18 07:38 PT 26.3 SECONDS (9.7-12.2) H 04/30/18 07:38 INR 2.4 04/30/18 07:38 APTT 39 SECONDS (21-34) H 04/22/18 17:06 pO2 39 mm/Hg (30-55) 04/16/18 02:55 VBG pH 7.39 (7.32-7.43) 04/16/18 02:55 VBG pCO2 44 mmHg (40-60) 04/16/18 02:55 VBG HCO3 25.2 mmol/L 04/16/18 02:55 VBG Total CO2 28.0 mmol/L (22-28) 04/16/18 02:55 VBG O2 Sat (Calc) 75.8 % (40-65) H 04/16/18 02:55 VBG Base Excess 1.2 mmol/L (0.0-2.0) 04/16/18 02:55 VBG Potassium 4.2 mmol/L (3.6-5.2) 04/16/18 02:55 Sodium 140.0 mmol/l (132-148) 04/16/18 02:55 Chloride 105.0 mmol/L (98-107) 04/16/18 02:55 Glucose 113 mg/dl (75-110) H 04/16/18 02:55 Lactate 1.0 mmol/L (0.7-2.1) 04/16/18 02:55 Sodium 140 mmol/L (132-148) 04/30/18 07:38 Potassium 4.1 mmol/L (3.6-5.2) 04/30/18 07:38 Chloride 94 mmol/L (98-107) L 04/30/18 07:38 Carbon Dioxide 32 mmol/L (22-30) H 04/30/18 07:38 Anion Gap 18 (10-20) 04/30/18 07:38 BUN 36 mg/dL (9-20) H 04/30/18 07:38 Creatinine 1.3 mg/dL (0.8-1.5) 04/30/18 07:38 Est GFR ( Amer) > 60 04/30/18 07:38 Est GFR (Non-Af Amer) 57 04/30/18 07:38 POC Glucose (mg/dL) 159 mg/dL (65-110) H 04/30/18 21:34 Random Glucose 155 mg/dL (75-110) H 04/30/18 07:38 Calcium 9.1 mg/dl (8.6-10.4) 04/30/18 07:38 Magnesium 2.0 mg/dL (1.6-2.3) 04/16/18 02:51 Total Bilirubin 0.1 mg/dL (0.2-1.3) L 04/30/18 07:38 AST 31 U/L (17-59) 04/30/18 07:38 ALT 13 U/L (21-72) L D 04/30/18 07:38 Alkaline Phosphatase 124 U/L (38-126) 04/30/18 07:38 Total Protein 8.0 g/dL (6.3-8.3) 04/30/18 07:38 Albumin 3.9 g/dL (3.5-5.0) 04/30/18 07:38 Globulin 4.0 gm/dL (2.2-3.9) H 04/30/18 07:38 Albumin/Globulin Ratio 1.0 (1.0-2.1) 04/30/18 07:38 Venous Blood Potassium 4.2 mmol/L (3.6-5.2) 04/16/18 02:55 Urine Color Straw (YELLOW) 04/18/18 07:15 Urine Clarity Clear (Clear) 04/18/18 07:15 Urine pH 5.0 (5.0-8.0) 04/18/18 07:15 Ur Specific [place] 1.008 (1.003-1.030) 04/18/18 07:15 Urine Protein Negative mg/dL (NEGATIVE) 04/18/18 07:15 Urine Glucose (UA) Normal mg/dL (Normal) 04/18/18 07:15 Urine Ketones Negative mg/dL (NEGATIVE) 04/18/18 07:15 Urine Blood Negative (NEGATIVE) 04/18/18 07:15 Urine Nitrate Negative (NEGATIVE) 04/18/18 07:15 Urine Bilirubin Negative (NEGATIVE) 04/18/18 07:15 Urine Urobilinogen Normal mg/dL (0.2-1.0) 04/18/18 07:15 Ur Leukocyte Esterase Neg Tara/uL (Negative) 04/18/18 07:15 Urine WBC (Auto) < 1 /hpf (0-5) 04/18/18 07:15 - Hospital Course Hospital Course: Pt seen and examined at bedside, ERCP done yesterday his cough, congestion is resolved, afebrile, pt is for discharge Discharge Exam - Head Exam Head Exam: ATRAUMATIC, NORMAL INSPECTION, NORMOCEPHALIC - Eye Exam Eye Exam: Normal appearance Pupil Exam: NORMAL ACCOMODATION - ENT Exam ENT Exam: Mucous Membranes Moist - Respiratory Exam Respiratory Exam: Decreased Breath Sounds, Wheezes - Cardiovascular Exam Cardiovascular Exam: REGULAR RHYTHM, +S1, +S2 - GI/Abdominal Exam GI & Abdominal Exam: Normal Bowel Sounds Discharge Plan - Follow Up Plan Condition: FAIR Disposition: HOME/ ROUTINE Instructions: Type 2 Diabetes, Diabetes Diet , Wound Care (DC), Obesity (DC) Additional Instructions: follow up with DR Laguna as advised for wound care follow up with PMDin 1 week continue with coumadin at home as advised. call dr albright or go to the emergency room if symptoms return or worsening Referrals: Estrada Albright MD [Staff Provider] - Keenan Antonio MD [Staff Provider] - Remy Young MD [Staff Provider] - Casey Laguna DPM [Staff Provider] -
== END 2018-04-30 23:22 | disposition home or self-care (01) | DRG 638 ==
LOC: C.ER 01:11 → C.5S 04:35
PROVIDERS: ADMIT Internal Medicine; ATTEND Internal Medicine
DX: E11.622 Type 2 diabetes mellitus with other skin ulcer (principal); L97.919 Non-pressure chronic ulcer of unspecified part of right lower leg with unspecified severity; L03.116 Cellulitis of left lower limb; I13.0 Hypertensive heart and chronic kidney disease with heart failure and stage 1 through stage 4 chronic kidney disease, or unspecified chronic kidney disease; Z68.43 Body mass index [BMI] 50.0-59.9, adult; L97.929 Non-pressure chronic ulcer of unspecified part of left lower leg with unspecified severity; E11.22 Type 2 diabetes mellitus with diabetic chronic kidney disease; J44.9 Chronic obstructive pulmonary disease, unspecified; K21.9 Gastro-esophageal reflux disease without esophagitis; G89.4 Chronic pain syndrome; G47.33 Obstructive sleep apnea (adult) (pediatric); I50.9 Heart failure, unspecified; N18.9 Chronic kidney disease, unspecified; E66.01 Morbid (severe) obesity due to excess calories; E03.9 Hypothyroidism, unspecified; R29.6 Repeated falls; Z86.711 Personal history of pulmonary embolism; Z96.653 Presence of artificial knee joint, bilateral; E78.00 Pure hypercholesterolemia, unspecified

== ENCOUNTER 2018-05-05 13:04 | Inpatient (IN) | payer MEDICARE ==
[2018-05-05 13:04] VITALS: BMI 54.8
--- NOTE | 2018-05-05 13:57 | C.PDOC ---
History Of Present Illness 57 y/o male with a PMHx of peripheral edema with stasis dermatitis and cellulitis in his legs, presents to the ED for worsening bilateral leg wounds. Of note patient was recently admitted for the same complaint, and discharged home 5 days ago. He has a visiting nurse come twice per week and change the dressings. Not currently taking any antibiotics. Patient called Dr. Albright earlier today after noticing increased weeping, draining, and foul smell from the wounds, with severe pain to both legs. Otherwise patient denies any fevers, chills, SOB, vomiting, numbness, focal weakness, or other complaints. Time Seen by Provider: 05/05/18 13:28 Chief Complaint (Nursing): Lower Extremity Problem/Injury History Per: Patient History/Exam Limitations: no limitations Onset/Duration Of Symptoms: Days Current Symptoms Are (Timing): Still Present Past Medical History Reviewed: Historical Data, Nursing Documentation, Vital Signs Vital Signs: Last Vital Signs Temp 98.7 F 05/05/18 13:31 Pulse 83 05/05/18 13:31 Resp 16 05/05/18 13:31 BP 134/85 05/05/18 13:31 Pulse Ox 94 L 05/05/18 14:19 - Medical History PMH: Arthritis, Asthma, Back Problems, CAD, CHF, COPD, Depression, Diabetes, Deep Vein Thrombosis, Fibromyalgia, Fractures, HTN, Hypercholesterolemia, Hyperthyroidism, Hypothyroidism, Peripheral Edema (+3 pitting ble), Pneumonia, Pulmonary Embolism, Chronic Kidney Disease (required HD in 2016 briefly), Sleep Apnea, Chronic Pain Surgical History: - [facility] Procedures ASSISTANCE WITH RESPIRATORY VENTILATION, >96 HRS, CPAP (09/04/16) BATHING/SHOWERING TECHNIQUES TREATMENT (07/29/17) CENTRAL VENOUS CATHETER PLACEMENT WITH GUIDANCE (07/08/15) CLOSED ENDOSCOPIC BIOPSY OF LARGE INTESTINE (03/22/14) CONTIN POS AIRWAY PRESSURE [CPAP] (02/21/07) DERMAL REGENERATIVE GRAFT (06/15/15) DRESSING TECHNIQUES TREATMENT (07/29/17) DX ULTRASOUND-HEART (05/14/06) ENDOSC POLYPECTOMY OF LG INTEST (03/22/14) ENDOSCOPIC BRONCHIAL BX (09/22/04) ESOPHAGOGASTRODUODENOSCOPY [EGD] W/CLOSED BIOPSY (03/22/14) EXCIS DEBRIDE OF WOUND, INFECT, OR BURN (06/15/15) EXCISION OF LEFT LOWER LEG SKIN, EXTERNAL APPROACH (09/15/17) EXTRACTION OF LEFT LOWER LEG SKIN, EXTERNAL APPROACH (02/16/18) FLUOROSCOPY OF SUPERIOR VENA CAVA, GUIDANCE (02/16/18) GAIT TRAINING/AMBULAT TREATMENT USING ASSIST EQUIPMENT (07/29/17) HETEROGRAFT TO SKIN (10/29/14) HOME MANAGEMENT TREATMENT (07/29/17) INJECT ANTIBIOTIC (05/29/06) INJECT ANTICOAGULANT (11/17/04) INJECT/INFUSE NEC (03/22/14) INSERTION OF INFUSION DEV INTO L AXILLA VEIN, PERC APPROACH (02/16/18) INSERTION OF INFUSION DEV INTO SUP VENA CAVA, PERC APPROACH (03/14/18) INSPECTION OF BLADDER, ENDO (06/22/16) INTRODUCE OF OTH THERAP SUBST INTO RESP TRACT, VIA OPENING (04/06/16) NEBULIZER THERAPY (09/18/14) NON-INVASIVE MECHANICAL VENTILATION (08/13/12) NONEXCIS DEBRID OF WOUND, INFECT, OR BURN (10/09/14) OCCUPATIONAL THERAPY (03/17/14) PERFORMANCE OF URINARY FILTRATION, MULTIPLE (09/04/16) PHYSICAL THERAPY NEC (03/17/14) REPLACE L LOW LEG SKIN W NONAUT SUB, FULL THICK, [employer] ENGINEER (01/17/18) TRANSFUSE NONAUT FROZEN PLASMA IN PERIPH VEIN, PERC (09/04/16) ULTRASONOGRAPHY OF LEFT UPPER EXTREMITY VEINS, GUIDANCE (02/16/18) VENOUS CATHETERIZATION NEC (04/25/15) Family History: States: Unknown Family Hx - Social History Hx Tobacco Use: No Hx Alcohol Use: No Hx Substance Use: No - Immunization History Hx Tetanus Toxoid Vaccination: No Hx Influenza Vaccination: Yes Hx Pneumococcal Vaccination: Yes (3 yrs ago) Review Of Systems Except As Marked, All Systems Reviewed And Found Negative. Constitutional: Negative for: Fever, Chills Respiratory: Negative for: Shortness of Breath Gastrointestinal: Negative for: Vomiting Musculoskeletal: Positive for: Leg Pain Skin: Positive for: Rash, Lesions (open wounds to lower legs) Neurological: Negative for: Weakness, Numbness Physical Exam - Physical Exam Appears: Non-toxic, No Acute Distress Skin: Normal Color, Warm, Dry Head: Atraumatic, Normacephalic Eye(s): bilateral: Normal Inspection, PERRL, EOMI Oral Mucosa: Moist Neck: Normal ROM, Supple Chest: Symmetrical Cardiovascular: Rhythm Regular, No Murmur Respiratory: Normal Breath Sounds, No Accessory Muscle Use Gastrointestinal/Abdominal: Soft, No Tenderness, No Distention Extremity: Normal ROM, Other (Undressed wound, revealing swelling/chronic edema with chronic ulcerations that are confluent to the entire legs, (+) bleeding, weeping, foul-smelling, and surrounding cellulitis) Pulses: Left Dorsalis Pedis: Normal, Right Dorsalis Pedis: Normal Neurological/Psych: Oriented x3, Normal Speech, Other (No focal deficits) ED Course And Treatment - Laboratory Results Result Diagrams: 05/05/18 14:32 05/05/18 14:32 Lab Interpretation: No Acute Changes O2 Sat by Pulse Oximetry: 94 (RA) Pulse Ox Interpretation: Normal - Physician Consult Information Time Consulting Physician Contacted: 15:08 Outcome Of Conversation: Case discussed with Dr Ablright and podiatry resident. Patient to be readmitted for treatment of stasis dermatitis with cellulitis and chronic wounds. Medical Decision Making Medical Decision Making: Initial Plan: --CMP --CBC --Wound culture --Perocet PO Disposition - Disposition Disposition: HOSPITALIZED Disposition Time: 15:09 Condition: STABLE - POA Present On Arrival: None - Clinical Impression Clinical Impression: Cellulitis, Infected stasis ulcer of left lower extremity, Chronic skin ulcer of lower leg - Scribe Statement The provider has reviewed the documentation as recorded by the Kevin Stoll Provider Attestation: All medical record entries made by the Kevin were at my direction and personally dictated by me. I have reviewed the chart and agree that the record accurately reflects my personal performance of the history, physical exam, medical decision making, and the department course for this patient. I have also personally directed, reviewed, and agree with the discharge instructions and disposition.
[2018-05-05] MEDS ORDERED: Oxycodone/Acetaminophen 5/325 mg Tab PO STA (14:17)
[2018-05-05 14:38] LABS: BASO # 0.1 K/uL (0.0-0.2); BASO % 0.6 % (0.0-2.0); EOS # 0.1 K/uL (0.0-0.7); HEMOGLOBIN 10.6 g/dL (12.0-18.0); LYMPH # 0.7 K/uL (1.0-4.3); LYMPH % 8.3 % (20.0-40.0); MEAN CELL VOLUME 80.1 fL (80.0-94.0); MEAN CORPUSCULAR HEMOGLOBIN 27.1 pg (27.0-31.0); MEAN CORPUSCULAR HGB CONC 33.8 g/dL (33.0-37.0); MEAN PLATELET VOLUME 9.6 fL (7.2-11.7); MONO # 0.5 K/uL (0.0-0.8); MONO % 5.2 % (0.0-10.0); NEUT # 7.6 K/uL (1.8-7.0); NEUT % 84.9 % (50.0-75.0); PLATELET COUNT 202 K/uL (130-400); RBC 3.89 Mil/uL (4.40-5.90); RED CELL DISTRIBUTION WIDTH 17.6 % (11.5-14.5); WHITE BLOOD COUNT 8.9 K/uL (4.8-10.8)
[2018-05-05] MEDS ORDERED: Oxycodone/Acetaminophen 5/325 mg Tab ONE (14:38)
[2018-05-05 14:54] LABS: ALB/GLOB RATIO 0.8 (1.0-2.1); ALBUMIN 3.6 g/dL (3.5-5.0); ALT/SGPT 13 U/L (21-72); AST/SGOT 30 U/L (17-59); BLOOD UREA NITROGEN 19 mg/dL (9-20); CALCIUM 8.9 mg/dl (8.6-10.4); GFR AFRICAN-AMERICAN > 60; GFR NON-AFRICAN AMERICAN > 60
[2018-05-05 15:09] LABS: EOSINOPHIL 2 % (0-4); LYMPHOCYTE 6 % (20-40); MONOCYTE 2 % (0-10); NEUTROPHIL 90 % (50-75); TOTAL CELLS COUNTED 100
[2018-05-05 15:10] LABS: ANISOCYTOSIS SLIGHT; HYPOCHROMIC SLIGHT; PLATELET ESTIMATE NORMAL (NORMAL); POLYCHROMIC SLIGHT
--- NOTE | 2018-05-05 16:18 | CP.PCM.CON ---
History of Present Illness - History of Present Illness History of Present Illness: Podiatry Consult Note- Dr. Laguna 57 year old male PMHx includes chronic leg ulcers, well known to podiatry and wound care service, seen at bedside in ED regarding chronic recurrent wounds to bilateral legs. Patient states that he has significant pain to his left lower extremity. States he noticed an increase in foul odor and discharge coming from the left leg and came to the ED today. Patient is seen by Dr. Laguna in the wound care center weekly. Patient denies any other pedal complaints at this time. Denies F/C/N/V/CP/SOB Review of Systems - Review of Systems All systems: reviewed and no additional remarkable complaints except (per HPI) Past Patient History - Infectious Disease Hx of Infectious Diseases: None - Tetanus Immunizations Tetanus Immunization: Unknown - Past Medical History & Family History Past Medical History?: Yes - Past Social History Smoking Status: Never Smoked - CARDIAC Hx Congestive Heart Failure: Yes Hx Hypercholesterolemia: Yes Hx Hypertension: Yes Hx Peripheral Edema: Yes (+3 pitting ble) - PULMONARY Hx Asthma: Yes Hx Chronic Obstructive Pulmonary Disease (COPD): Yes Hx Pneumonia: Yes Hx Pulmonary Embolism: Yes Hx Sleep Apnea: Yes - NEUROLOGICAL Hx Neurological Disorder: No - HEENT Hx HEENT Problems: No - RENAL Hx Chronic Kidney Disease: Yes (required HD in 2016 briefly) - ENDOCRINE/METABOLIC Hx Hyperthyroidism: Yes Hx Hypothyroidism: Yes - HEMATOLOGICAL/ONCOLOGICAL Hx Blood Disorders: No - INTEGUMENTARY Hx Dermatological Problems: Yes Other/Comment: CHRONIC LEG ULCERS - MUSCULOSKELETAL/RHEUMATOLOGICAL Hx Arthritis: Yes Hx Fractures: Yes - GASTROINTESTINAL Hx Gastrointestinal Disorders: (reflux obese) - GENITOURINARY/GYNECOLOGICAL Hx Reproductive Disorders: No - PSYCHIATRIC Hx Depression: Yes Hx Substance Use: No - SURGICAL HISTORY Hx Surgeries: Yes Hx Orthopedic Surgery: Yes (bilateral knee replacement) Other/Comment: total left knee - 1998. right ankle screws - 1987. right hip shyam - 1982,. LEG WOUND DEBRIDEMENTS - ANESTHESIA Hx Anesthesia: Yes Hx Anesthesia Reactions: No Hx Malignant Hyperthermia: No Meds Allergies/Adverse Reactions: Allergies Allergy/AdvReac Type Severity Reaction Status Date / Time No Known Allergies Allergy Verified 03/14/18 09:48 Physical Exam - Constitutional Appears: Well, Non-toxic, No Acute Distress - Extremities Exam Additional comments: Lower extremity focused exam: Vasc: Non-palpable pedal pulses due to edema B/L, TG warm to warm, CFT < 3 sec to all digits, +1 pitting edema to bilateral lower extremities distal to tibial tuberosity Derm: Localized mild non-streaking, blanchable periwound erythema to mid-calf level B/L. Left: Multiple circumferential bright red open ulcerations extending from tibial tuberosity to medial malleolus noted to the mid leg. Moderate active sanguinous drainage, wound base is 100% granular. No shital-wound macerations. No purulence noted, moderate malodor noted. Right: Open superficial ulceration noted to the anteromedial aspect of leg at mid-calf level approximately 6cm x 4cm. Mild sero-sanguinous drainage, wound base is 100% granular with no shital-wound macerations. No purulence noted, moderate malodor noted. L heel exhibits Neuro: protective sensation mildly diminished ORTHO: moderate-severe pain on palpation of posterior and medial L leg. Minimal tenderness to palpation of R leg - Neurological Exam Neurological exam: Alert, Oriented x3 - Psychiatric Exam Psychiatric exam: Normal Affect, Normal Mood Results - Vital Signs Recent Vital Signs: Last Vital Signs Temp 98.5 F 05/05/18 15:41 Pulse 83 05/05/18 15:41 Resp 14 05/05/18 15:41 BP 124/78 05/05/18 15:41 Pulse Ox 97 05/05/18 15:41 - Labs Result Diagrams: 05/05/18 14:32 05/05/18 14:32 Labs: Laboratory Results - last 24 hr 05/05/18 05/05/18 14:32 14:32 WBC 8.9 D RBC 3.89 L Hgb 10.6 L Hct 31.2 L MCV 80.1 MCH 27.1 MCHC 33.8 RDW 17.6 H Plt Count 202 MPV 9.6 Neut % (Auto) 84.9 H Lymph % (Auto) 8.3 L [place] % (Auto) 5.2 Eos % (Auto) 1.0 Baso % (Auto) 0.6 Neut # (Auto) 7.6 H Lymph # (Auto) 0.7 L [place] # (Auto) 0.5 Eos # (Auto) 0.1 Baso # (Auto) 0.1 Neutrophils % (Manual) 90 H Lymphocytes % (Manual) 6 L Monocytes % (Manual) 2 Eosinophils % (Manual) 2 Platelet Estimate Normal Polychromasia Slight Hypochromasia (manual) Slight Anisocytosis (manual) Slight Sodium 141 Potassium 4.3 Chloride 97 L Carbon Dioxide 34 H Anion Gap 15 BUN 19 Creatinine 0.8 Est GFR ( Amer) > 60 Est GFR (Non-Af Amer) > 60 Random Glucose 142 H Calcium 8.9 Total Bilirubin 0.7 AST 30 ALT 13 L Alkaline Phosphatase 107 Total Protein 8.0 Albumin 3.6 Globulin 4.4 H Albumin/Globulin Ratio 0.8 L Assessment & Plan - Assessment and Plan (Free Text) Assessment: 57 year old male with bilateral chronic, recurrent wounds to lower extremities Plan: Patient seen and evaluated in ED Discussed plan with attending Dr. Laguna Chart, labs, vitals; afebrile, absent leukocytosis Left leg wound cx pending Continue medical management per medical team Rx placed for Bactroban ointment Continue local wound care: Saline cleanse, Bactroban, Telfa, ABD, DSD, JOSE B/L Pt to be admitted to floors under Dr. Albright's service Recommend ID consult Podiatry will continue to follow
[2018-05-05 17:01] VITALS: RESP 20
[2018-05-05] MEDS ORDERED: oxyCODONE 40 mg ER Tab (oxyCONTIN) PO SCH (17:30)
--- NOTE | 2018-05-05 18:43 | CP.PCM.CON ---
History of Present Illness - History of Present Illness History of Present Illness: 57-year-old male, PMHx includes chronic leg ulcers, presents to the emergency with exacerbation of leg ulcers Has large infected ulcers bilat lower extremities which were recently treated here wound care and cultures pending - Medical History PMH: Arthritis, Asthma, Back Problems, CAD, CHF, COPD, Depression, Diabetes, Deep Vein Thrombosis, Fibromyalgia, Fractures, HTN, Hypercholesterolemia, Hyperthyroidism, Hypothyroidism, Peripheral Edema (+3 pitting ble), Pneumonia, Pulmonary Embolism, Chronic Kidney Disease (required HD in 2016 briefly), Sleep Apnea, Chronic Pain Surgical History: - [facility] Procedures ASSISTANCE WITH RESPIRATORY VENTILATION, >96 HRS, CPAP (09/04/16) BATHING/SHOWERING TECHNIQUES TREATMENT (07/29/17) CENTRAL VENOUS CATHETER PLACEMENT WITH GUIDANCE (07/08/15) CLOSED ENDOSCOPIC BIOPSY OF LARGE INTESTINE (03/22/14) CONTIN POS AIRWAY PRESSURE [CPAP] (02/21/07) DERMAL REGENERATIVE GRAFT (06/15/15) DRESSING TECHNIQUES TREATMENT (07/29/17) DX ULTRASOUND-HEART (05/14/06) ENDOSC POLYPECTOMY OF LG INTEST (03/22/14) ENDOSCOPIC BRONCHIAL BX (09/22/04) ESOPHAGOGASTRODUODENOSCOPY [EGD] W/CLOSED BIOPSY (03/22/14) EXCIS DEBRIDE OF WOUND, INFECT, OR BURN (06/15/15) EXCISION OF LEFT LOWER LEG SKIN, EXTERNAL APPROACH (09/15/17) EXTRACTION OF LEFT LOWER LEG SKIN, EXTERNAL APPROACH (01/17/18) GAIT TRAINING/AMBULAT TREATMENT USING ASSIST EQUIPMENT (07/29/17) HETEROGRAFT TO SKIN (10/29/14) HOME MANAGEMENT TREATMENT (07/29/17) INJECT ANTIBIOTIC (05/29/06) INJECT ANTICOAGULANT (11/17/04) INJECT/INFUSE NEC (03/22/14) INSERTION OF INFUSION DEV INTO SUP VENA CAVA, PERC APPROACH (01/17/18) INSPECTION OF BLADDER, ENDO (06/22/16) INTRODUCE OF OTH THERAP SUBST INTO RESP TRACT, VIA OPENING (04/06/16) NEBULIZER THERAPY (09/18/14) NON-INVASIVE MECHANICAL VENTILATION (08/13/12) NONEXCIS DEBRID OF WOUND, INFECT, OR BURN (10/09/14) OCCUPATIONAL THERAPY (03/17/14) PERFORMANCE OF URINARY FILTRATION, MULTIPLE (09/04/16) PHYSICAL THERAPY NEC (03/17/14) REPLACE L LOW LEG SKIN W NONAUT SUB, FULL THICK, LEAD SHIPPER (01/17/18) TRANSFUSE NONAUT FROZEN PLASMA IN PERIPH VEIN, PERC (09/04/16) VENOUS CATHETERIZATION NEC (04/25/15) Review of Systems - Constitutional Constitutional: As Per HPI, Anorexia, Chills, Fever, Malaise - EENT Eyes: absent: As Per HPI, Blind Spots, Blurred Vision, Change in Vision, Decreased Night Vision, Diplopia, Discharge, Dry Eye, Exophthalmos, Floaters, Irritation, Itchy Eyes, Loss of Peripheral Vision, Pain, Photophobia, Requires Corrective Lenses, Sees Flashes, Spots in Vision, Tunnel Vision, Other Visual Disturbances, Loss of Vision, Other Ears: absent: As Per HPI, Decreased Hearing, Ear Discharge, Ear Pain, Tinnitus, Abnormal Hearing, Disequilibrium, Dizziness, Other Nose/Mouth/Throat: absent: As Per HPI, Epistaxis, Nasal Congestion, Nasal Discharge, Nasal Obstruction, Nasal Trauma, Nose Pain, Post Nasal Drip, Sinus Pain, Sinus Pressure, Bleeding Gums, Change in Voice, Dental Pain, Dry Mouth, Dysphagia, Halitosis, Hoarsness, Lip Swelling, Mouth Lesions, Mouth Pain, Odynophagia, Sore Throat, Throat Swelling, Tongue Swelling, Facial Pain, Neck Pain, Neck Mass, Other - Cardiovascular Cardiovascular: As Per HPI - Respiratory Respiratory: As Per HPI, Cough, Dyspnea. absent: Hemoptysis - Gastrointestinal Gastrointestinal: absent: As Per HPI, Abdominal Pain, Belching, Bloating, Change in Bowel Habits, Change in Stool Character, Coffee Ground Emesis, Constipation, Cramping, Diarrhea, Dyspepsia, Dysphagia, Early Satiety, Excessive Flatus, Fecal Incontinence, Heartburn, Hematemesis, Hematochezia, Loose Stools, Melena, Nausea, Odynophagia, Temesmus, Vomiting, Other - Genitourinary Genitourinary: absent: As Per HPI, Change in Urinary Stream, Difficulty Urinating, Dysuria, Flank Pain, Hematuria, Pyuria, Nocturia, Urinary Incontinence, Urinary Frequency, Urinary Hesitance, Urinary Urgency, Voiding Freq/Small Amts, Freq UTI, Hx Renal/Bladder Calculi, Hx /Renal Surgery, Bladder Distension, Other - Musculoskeletal Musculoskeletal: As Per HPI - Integumentary Integumentary: As Per HPI, Skin Pain, Wounds - Neurological Neurological: absent: As Per HPI, Abnormal Gait, Abnormal Hearing, Abnormal Movements, Abnormal Speech, Behavioral Changes, Burning Sensations, Confusion, Convulsions, Disequilibrium, Dizziness, Numbness, Focal Weakness, Frequent Falls , Headaches, Lack of Coordination, Loss of Vision, Memory Loss, Paresthesias, Radicular Pain, Restless Legs, Sensory Deficit, Syncope, Tingling, Tremor, Vertigo, Weakness, Other Visual Disturbances, Other - Psychiatric Psychiatric: absent: As Per HPI, Abnormal Sleep Pattern, Anhedonia, Anxiety, Auditory Hallucinations, Behavioral Changes, Change in Appetite, Change in Libido, Confusion, Depression, Difficulty Concentrating, Hallucinations, Homicidal Ideation, Hopelessness, Irritability, Memory Loss, Mood Swings, Panic Attacks, Paranoia, Suicidal Ideation, Visual Hallucinations, Tactile Hallucinations, Other - Endocrine Endocrine: absent: As Per HPI, Change in Body Appearance, Change in Libido, Cold Intolorance, Deepening of Voice, Excessive Sweating, Fatigue, Flushing, Heat Intolorance, Increase in Ring/Shoe/Hat Size, Palpitations, Polydipsia, Polyphagia, Polyuria, Other - Hematologic/Lymphatic Hematologic: absent: As Per HPI, Easy Bleeding, Easy Bruising, Lymphadenopathy, Other Past Patient History - Infectious Disease Hx of Infectious Diseases: None - Tetanus Immunizations Tetanus Immunization: Unknown - Past Medical History & Family History Past Medical History?: Yes - Past Social History Smoking Status: Never Smoked - CARDIAC Hx Congestive Heart Failure: Yes Hx Hypercholesterolemia: Yes Hx Hypertension: Yes Hx Peripheral Edema: Yes (+3 pitting ble) - PULMONARY Hx Asthma: Yes Hx Chronic Obstructive Pulmonary Disease (COPD): Yes Hx Pneumonia: Yes Hx Pulmonary Embolism: Yes Hx Sleep Apnea: Yes - NEUROLOGICAL Hx Neurological Disorder: No - HEENT Hx HEENT Problems: No - RENAL Hx Chronic Kidney Disease: Yes (required HD in 2016 briefly) - ENDOCRINE/METABOLIC Hx Hyperthyroidism: Yes Hx Hypothyroidism: Yes - HEMATOLOGICAL/ONCOLOGICAL Hx Blood Disorders: No - INTEGUMENTARY Hx Dermatological Problems: Yes Other/Comment: CHRONIC LEG ULCERS - MUSCULOSKELETAL/RHEUMATOLOGICAL Hx Arthritis: Yes Hx Fractures: Yes - GASTROINTESTINAL Hx Gastrointestinal Disorders: (reflux obese) - GENITOURINARY/GYNECOLOGICAL Hx Reproductive Disorders: No - PSYCHIATRIC Hx Depression: Yes Hx Substance Use: No - SURGICAL HISTORY Hx Surgeries: Yes Hx Orthopedic Surgery: Yes (bilateral knee replacement) Other/Comment: total left knee - 1998. right ankle screws - 1987. right hip shyam - 1982,. LEG WOUND DEBRIDEMENTS - ANESTHESIA Hx Anesthesia: Yes Hx Anesthesia Reactions: No Hx Malignant Hyperthermia: No Meds Allergies/Adverse Reactions: Allergies Allergy/AdvReac Type Severity Reaction Status Date / Time No Known Allergies Allergy Verified 03/14/18 09:48 - Medications Medications: Current Medications Bacitracin (Bacitracin) 0 ea TOP DAILY [facility] Docusate Sodium (Colace) 100 mg PO DAILY [facility] Last Admin: 05/05/18 17:59 Dose: 100 mg Furosemide (Lasix) 80 mg PO BID [facility] Last Admin: 05/05/18 17:58 Dose: 80 mg Gabapentin (Neurontin) 300 mg PO TID [facility] Last Admin: 05/05/18 17:59 Dose: 300 mg Hydralazine HCl (Apresoline) 25 mg PO BID [facility] Last Admin: 05/05/18 17:59 Dose: 25 mg Cefazolin Sodium/Dextrose (Ancef Iv 1 Gm Duplex) 1 gm in 50 mls @ 100 mls/hr IVPB Q8H [facility] PRN Reason: Protocol Insulin Aspart (Novolog) 0 unit SC [facility] PRN Reason: Protocol Insulin Human Regular (Novolin R) 0 unit [place] [facility] PRN Reason: Protocol Levothyroxine Sodium (Synthroid) 75 mcg PO DAILY@0630 [facility] Metformin HCl (Glucophage Xr) 1,000 mg PO BID [facility] Last Admin: 05/05/18 18:15 Dose: 1,000 mg Oxycodone HCl (Oxycontin Extended Release Tab) 80 mg PO Q6H [facility] Last Admin: 05/05/18 17:59 Dose: 80 mg Oxycodone/Acetaminophen (Percocet 5/325 Mg Tab) 2 tab PO Q4H PRN PRN Reason: pain Stop: 05/08/18 17:33 Physical Exam - Constitutional Appears: Non-toxic, Chronically Ill - Head Exam Head Exam: NORMOCEPHALIC - Eye Exam Eye Exam: PERRL - ENT Exam ENT Exam: Mucous Membranes Dry - Neck Exam Neck exam: Negative for: Lymphadenopathy - Respiratory Exam Respiratory Exam: Decreased Breath Sounds - Cardiovascular Exam Cardiovascular Exam: REGULAR RHYTHM - GI/Abdominal Exam GI & Abdominal Exam: Diminished Bowel Sounds, Soft. absent: Tenderness - Rectal Exam Rectal Exam: Deferred - Exam Exam: NORMAL INSPECTION - Extremities Exam Extremities exam: Positive for: calf tenderness, pedal edema, tenderness. Negative for: pedal pulses present - Back Exam Back exam: absent: CVA tenderness (L), CVA tenderness (R), paraspinal tenderness - Neurological Exam Neurological exam: Alert, CN II-XII Intact, Oriented x3, Reflexes Normal - Psychiatric Exam Psychiatric exam: Depressed - Skin Skin Exam: Dry Results - Vital Signs Recent Vital Signs: Last Vital Signs Temp 98.3 F 05/05/18 17:00 Pulse 92 H 05/05/18 17:00 Resp 20 05/05/18 17:00 BP 120/86 05/05/18 17:58 Pulse Ox 93 L 05/05/18 17:00 - Labs Result Diagrams: 05/05/18 14:32 05/05/18 14:32 Labs: Laboratory Results - last 24 hr 05/05/18 05/05/18 05/05/18 14:32 14:32 16:57 WBC 8.9 D RBC 3.89 L Hgb 10.6 L Hct 31.2 L MCV 80.1 MCH 27.1 MCHC 33.8 RDW 17.6 H Plt Count 202 MPV 9.6 Neut % (Auto) 84.9 H Lymph % (Auto) 8.3 L [place] % (Auto) 5.2 Eos % (Auto) 1.0 Baso % (Auto) 0.6 Neut # (Auto) 7.6 H Lymph # (Auto) 0.7 L [place] # (Auto) 0.5 Eos # (Auto) 0.1 Baso # (Auto) 0.1 Neutrophils % (Manual) 90 H Lymphocytes % (Manual) 6 L Monocytes % (Manual) 2 Eosinophils % (Manual) 2 Platelet Estimate Normal Polychromasia Slight Hypochromasia (manual) Slight Anisocytosis (manual) Slight Sodium 141 Potassium 4.3 Chloride 97 L Carbon Dioxide 34 H Anion Gap 15 BUN 19 Creatinine 0.8 Est GFR ( Amer) > 60 Est GFR (Non-Af Amer) > 60 POC Glucose (mg/dL) 176 H Random Glucose 142 H Calcium 8.9 Total Bilirubin 0.7 AST 30 ALT 13 L Alkaline Phosphatase 107 Total Protein 8.0 Albumin 3.6 Globulin 4.4 H Albumin/Globulin Ratio 0.8 L Assessment & Plan (1) Cellulitis Status: Acute (2) Chronic skin ulcer of lower leg Status: Acute (3) Infected stasis ulcer of left lower extremity Status: Acute Priority: High (4) Ambulatory dysfunction Status: Acute (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 - Assessment and Plan (Free Text) Assessment: 57-year-old male, PMHx includes chronic leg ulcers, presents to the emergency with exacerbation of leg ulcers Has large infected ulcers bilat lower extremities which were recently treated here wound care and cultures pending await cultures cont wound care
[2018-05-05] MEDS: ceFAZolin IV 1 gm in Dextrose 1 GM/50 ML BAG IVPB SCH (19:19)
[2018-05-05 19:53] LABS: INR 1.3; PROTHROMBIN TIME 13.9 SECONDS (9.7-12.2)
[2018-05-05] MEDS: Oxycodone/Acetaminophen 5/325 mg Tab PO PRN (20:15)
[2018-05-05] MEDS: (Novolin R) Insulin Human Regular 100 units/ml vial SC SCH (21:26)
[2018-05-05] MEDS: (Novolog) Insulin Aspart, Recombinant 100 u/ml 10 ml vial SC SCH (22:00)
[2018-05-05] MEDS: Bacitracin 500 Units/gm Oint Foilpak UD TOP SCH (22:39)
[2018-05-06] MEDS: oxyCODONE 80 mg ER Tab (oxyCONTIN) PO SCH ×5 (00:03→23:45)
[2018-05-06] MEDS: Oxycodone/Acetaminophen 5/325 mg Tab PO PRN ×5 (00:46→20:17)
[2018-05-06] MEDS: ceFAZolin IV 1 gm in Dextrose 1 GM/50 ML BAG IVPB SCH ×3 (03:29→19:00)
[2018-05-06 06:38] LABS: INR 1.2; PROTHROMBIN TIME 13.3 SECONDS (9.7-12.2)
[2018-05-06] MEDS: Levothyroxine 75 MCG TAB PO SCH (07:00)
--- NOTE | 2018-05-06 08:24 | CP.PCM.HP ---
History of Present Illness - History of Present Illness History of Present Illness: CC: Left leg pain, purulent discharge, swelling, and fever History Of Present Illness 57 y/o morbidly obese male with a PMHx of diabetes type 2, HTN, Hypothyroidism, peripheral edema with stasis dermatitis and cellulitis in his legs, presents to the ED for worsening bilateral leg wounds. Of note patient was recently admitted for the same complaint, and discharged home 5 days ago. He has a visiting nurse come twice per week and change the dressings. Not currently taking any antibiotics. Patient called me earlier today after noticing increased weeping, draining, and foul smell from the wounds, with severe pain to both legs. Otherwise patient denies chills, SOB, vomiting, numbness, focal weakness, or other complaints. Present on Admission - Present on Admission Any Indicators Present on Admission: Yes Review of Systems - Review of Systems Systems not reviewed;Unavailable: Acuity of Condition - Constitutional Constitutional: Fatigue, Fever, Lethargy, Malaise - EENT Eyes: absent: As Per HPI, Blind Spots, Blurred Vision, Change in Vision, Decreased Night Vision, Diplopia, Discharge, Dry Eye, Exophthalmos, Floaters, Irritation, Itchy Eyes, Loss of Peripheral Vision, Pain, Photophobia, Requires Corrective Lenses, Sees Flashes, Spots in Vision, Tunnel Vision, Other Visual Disturbances, Loss of Vision, Other Ears: absent: As Per HPI, Decreased Hearing, Ear Discharge, Ear Pain, Tinnitus, Abnormal Hearing, Disequilibrium, Dizziness, Other Nose/Mouth/Throat: Nasal Congestion - Cardiovascular Cardiovascular: Dyspnea on Exertion, Leg Edema, Leg Ulcers. absent: As Per HPI , Acrocyanosis, Chest Pain, Chest Pain at Rest, Chest Pain with Activity, Claudication, Diaphoresis, Dyspnea, Edema, Irregular Heart Rhythm, Pain Radiating to Arm/Neck/Jaw, Lightheadedness, Orthopnea, Palpitations, Paroxysmal Nocturnal Dyspnea, Pedal Edema, Radiating Pain, Rapid Heart Rate, Slow Heart Rate, Syncope, Other - Respiratory Respiratory: Cough. absent: As Per HPI, Dyspnea, Hemoptysis, Dyspnea on Exertion, Wheezing, Snoring, Stridor, Pain on Inspiration, Chest Congestion, Excessive Mucous Production, Change in Mucous Color, Pain with Coughing, Other - Gastrointestinal Gastrointestinal: absent: As Per HPI, Abdominal Pain, Belching, Bloating, Change in Bowel Habits, Change in Stool Character, Coffee Ground Emesis, Constipation, Cramping, Diarrhea, Dyspepsia, Dysphagia, Early Satiety, Excessive Flatus, Fecal Incontinence, Heartburn, Hematemesis, Hematochezia, Loose Stools, Melena, Nausea, Odynophagia, Temesmus, Vomiting, Other - Genitourinary Genitourinary: absent: As Per HPI, Change in Urinary Stream, Difficulty Urinating, Dysuria, Flank Pain, Hematuria, Pyuria, Nocturia, Urinary Incontinence, Urinary Frequency, Urinary Hesitance, Urinary Urgency, Voiding Freq/Small Amts, Freq UTI, Hx Renal/Bladder Calculi, Hx /Renal Surgery, Bladder Distension, Other - Musculoskeletal Musculoskeletal: Muscle Cramps, Myalgias, Numbness, Stiffness, Tingling Past Patient History - Infectious Disease Hx of Infectious Diseases: None - Tetanus Immunizations Tetanus Immunization: Unknown - Past Medical History & Family History Past Medical History?: Yes - Past Social History Smoking Status: Never Smoked - CARDIAC Hx Congestive Heart Failure: Yes Hx Hypercholesterolemia: Yes Hx Hypertension: Yes Hx Peripheral Edema: Yes (+3 pitting ble) - PULMONARY Hx Respiratory Disorders: Yes Hx Asthma: Yes Hx Chronic Obstructive Pulmonary Disease (COPD): Yes Hx Pneumonia: Yes Hx Pulmonary Embolism: Yes Hx Sleep Apnea: Yes - NEUROLOGICAL Hx Neurological Disorder: No - HEENT Hx HEENT Problems: No - RENAL Hx Chronic Kidney Disease: Yes (required HD in 2016 briefly) - ENDOCRINE/METABOLIC Hx Endocrine Disorders: Yes Hx Hyperthyroidism: Yes Hx Hypothyroidism: Yes - HEMATOLOGICAL/ONCOLOGICAL Hx Blood Disorders: No - INTEGUMENTARY Hx Dermatological Problems: Yes Hx Cellulitis: Yes Other/Comment: CHRONIC LEG ULCERS - MUSCULOSKELETAL/RHEUMATOLOGICAL Hx Musculoskeletal Disorders: Yes Hx Arthritis: Yes Hx Falls: No Hx Fractures: Yes - GASTROINTESTINAL Hx Gastrointestinal Disorders: (reflux obese) - GENITOURINARY/GYNECOLOGICAL Hx Genitourinary Disorders: No Hx Reproductive Disorders: No - PSYCHIATRIC Hx Psychophysiologic Disorder: Yes Hx Depression: Yes Hx Substance Use: No - SURGICAL HISTORY Hx Surgeries: Yes Hx Orthopedic Surgery: Yes (bilateral knee replacement) Other/Comment: total left knee - 1998. right ankle screws - 1987. right hip shyam - 1982,. LEG WOUND DEBRIDEMENTS - ANESTHESIA Hx Anesthesia: Yes Hx Anesthesia Reactions: No Hx Malignant Hyperthermia: No Has any member of the family had a problem w/ anesthesia?: No Meds Allergies/Adverse Reactions: Allergies Allergy/AdvReac Type Severity Reaction Status Date / Time No Known Allergies Allergy Verified 03/14/18 09:48 Physical Exam - Constitutional Appears: No Acute Distress - Head Exam Head Exam: ATRAUMATIC, NORMAL INSPECTION, NORMOCEPHALIC - Eye Exam Eye Exam: EOMI, Normal appearance, PERRL Pupil Exam: NORMAL ACCOMODATION, PERRL - Extremities Exam Additional comments: left leg ulcer with erythema, purulent discharge - Psychiatric Exam Psychiatric exam: Normal Affect, Normal Mood - Skin Skin Exam: Erythema, Rash Results - Vital Signs Recent Vital Signs: Last Vital Signs Temp 98.4 F 05/06/18 07:50 Pulse 84 05/06/18 07:50 Resp 20 05/06/18 07:50 BP 114/73 05/06/18 07:50 Pulse Ox 95 05/06/18 07:50 - Labs Result Diagrams: 05/05/18 14:32 05/05/18 14:32 Labs: Laboratory Results - last 24 hr 05/05/18 05/05/18 05/05/18 14:32 14:32 16:57 WBC 8.9 D RBC 3.89 L Hgb 10.6 L Hct 31.2 L MCV 80.1 MCH 27.1 MCHC 33.8 RDW 17.6 H Plt Count 202 MPV 9.6 Neut % (Auto) 84.9 H Lymph % (Auto) 8.3 L Kimball % (Auto) 5.2 Eos % (Auto) 1.0 Baso % (Auto) 0.6 Neut # (Auto) 7.6 H Lymph # (Auto) 0.7 L Kimball # (Auto) 0.5 Eos # (Auto) 0.1 Baso # (Auto) 0.1 Neutrophils % (Manual) 90 H Lymphocytes % (Manual) 6 L Monocytes % (Manual) 2 Eosinophils % (Manual) 2 Platelet Estimate Normal Polychromasia Slight Hypochromasia (manual) Slight Anisocytosis (manual) Slight PT INR Sodium 141 Potassium 4.3 Chloride 97 L Carbon Dioxide 34 H Anion Gap 15 BUN 19 Creatinine 0.8 Est GFR ( Amer) > 60 Est GFR (Non-Af Amer) > 60 POC Glucose (mg/dL) 176 H Random Glucose 142 H Calcium 8.9 Total Bilirubin 0.7 AST 30 ALT 13 L Alkaline Phosphatase 107 Total Protein 8.0 Albumin 3.6 Globulin 4.4 H Albumin/Globulin Ratio 0.8 L 05/05/18 05/05/18 05/06/18 19:43 21:03 06:24 WBC RBC Hgb Hct MCV MCH MCHC RDW Plt Count MPV Neut % (Auto) Lymph % (Auto) Kimball % (Auto) Eos % (Auto) Baso % (Auto) Neut # (Auto) Lymph # (Auto) Kimball # (Auto) Eos # (Auto) Baso # (Auto) Neutrophils % (Manual) Lymphocytes % (Manual) Monocytes % (Manual) Eosinophils % (Manual) Platelet Estimate Polychromasia Hypochromasia (manual) Anisocytosis (manual) PT 13.9 H 13.3 H INR 1.3 1.2 Sodium Potassium Chloride Carbon Dioxide Anion Gap BUN Creatinine Est GFR ( Amer) Est GFR (Non-Af Amer) POC Glucose (mg/dL) 132 H Random Glucose Calcium Total Bilirubin AST ALT Alkaline Phosphatase Total Protein Albumin Globulin Albumin/Globulin Ratio 05/06/18 07:12 WBC RBC Hgb Hct MCV MCH MCHC RDW Plt Count MPV Neut % (Auto) Lymph % (Auto) Kimball % (Auto) Eos % (Auto) Baso % (Auto) Neut # (Auto) Lymph # (Auto) Kimball # (Auto) Eos # (Auto) Baso # (Auto) Neutrophils % (Manual) Lymphocytes % (Manual) Monocytes % (Manual) Eosinophils % (Manual) Platelet Estimate Polychromasia Hypochromasia (manual) Anisocytosis (manual) PT INR Sodium Potassium Chloride Carbon Dioxide Anion Gap BUN Creatinine Est GFR ( Amer) Est GFR (Non-Af Amer) POC Glucose (mg/dL) 142 H Random Glucose Calcium Total Bilirubin AST ALT Alkaline Phosphatase Total Protein Albumin Globulin Albumin/Globulin Ratio Assessment & Plan (1) Cellulitis Status: Acute (2) Chronic skin ulcer of lower leg Status: Acute (3) Diabetes Status: Acute (4) ANTONIA (generalized anxiety disorder) Status: Acute (5) HTN (hypertension) Status: Acute (6) Morbid obesity Status: Acute (7) Asthma Status: Chronic (8) Hypothyroidism Status: Chronic Priority: Medium
[2018-05-06] MEDS: (Novolog) Insulin Aspart, Recombinant 100 u/ml 10 ml vial SC SCH ×4 (08:30→22:28)
[2018-05-06] MEDS: (Novolin R) Insulin Human Regular 100 units/ml vial SC SCH ×3 (08:30→17:48)
[2018-05-06] MEDS: Bacitracin 500 Units/gm Oint Foilpak UD TOP SCH (10:00)
--- NOTE | 2018-05-06 12:11 | CP.PCM.PN ---
Subjective - Date & Time of Evaluation Date of Evaluation: 05/06/18 Time of Evaluation: 09:20 - Subjective Subjective: Podiatry Progress Note- Dr. Laguna 57 year old male seen at bedside concerning chronic recurrent bilateral leg ulcers. Patient states that he has significant pain to the rear of his left lower extremity exacerbated during dressing changes. Patient denies any other pedal complaints at this time. Denies F/C/N/V/CP/SOB Objective - Vital Signs/Intake and Output Vital Signs (last 24 hours): Temp Pulse Resp BP Pulse Ox 98.4 F 84 20 114/73 95 05/06/18 07:50 05/06/18 07:50 05/06/18 07:50 05/06/18 09:28 05/06/18 07:50 Intake and Output: 05/06/18 05/06/18 06:59 18:59 Intake Total 500 Output Total 800 Balance -300 - Medications Medications: Current Medications Bacitracin (Bacitracin) 0 ea TOP DAILY [facility] Last Admin: 05/05/18 22:39 Dose: Not Given Docusate Sodium (Colace) 100 mg PO DAILY [facility] Last Admin: 05/06/18 09:28 Dose: 100 mg Furosemide (Lasix) 80 mg PO BID [facility] Last Admin: 05/06/18 09:28 Dose: 80 mg Gabapentin (Neurontin) 300 mg PO TID [facility] Last Admin: 05/06/18 09:28 Dose: 300 mg Hydralazine HCl (Apresoline) 25 mg PO BID [facility] Last Admin: 05/06/18 09:28 Dose: 25 mg Cefazolin Sodium/Dextrose (Ancef Iv 1 Gm Duplex) 1 gm in 50 mls @ 100 mls/hr IVPB Q8H [facility] PRN Reason: Protocol Last Admin: 05/06/18 03:29 Dose: 100 mls/hr Insulin Aspart (Novolog) 0 unit SC ACHS [facility] PRN Reason: Protocol Last Admin: 05/06/18 08:30 Dose: Not Given Insulin Human Regular (Novolin R) 0 unit SC ACHS [facility] PRN Reason: Protocol Last Admin: 05/06/18 08:30 Dose: Not Given Levothyroxine Sodium (Synthroid) 75 mcg PO DAILY@0630 [facility] Last Admin: 05/06/18 07:00 Dose: 75 mcg Metformin HCl (Glucophage Xr) 1,000 mg PO BID [facility] Last Admin: 05/06/18 09:27 Dose: 1,000 mg Nystatin (Nystop Topical Powder) 0 gm TOP BID [facility] Oxycodone HCl (Oxycontin Extended Release Tab) 80 mg PO Q6H [facility] Last Admin: 05/06/18 06:13 Dose: 80 mg Oxycodone/Acetaminophen (Percocet 5/325 Mg Tab) 2 tab PO Q4H PRN PRN Reason: pain Stop: 05/08/18 17:33 Last Admin: 05/06/18 09:27 Dose: 2 tab Warfarin Sodium (Coumadin) 1 mg PO 1800 [facility] Stop: 05/06/18 18:01 Warfarin Sodium (Coumadin) 10 mg PO 1800 [facility] Stop: 05/06/18 18:01 - Labs Labs: 05/05/18 14:32 05/05/18 14:32 PT 13.3 SECONDS (9.7-12.2) H 05/06/18 06:24 INR 1.2 05/06/18 06:24 - Constitutional Appears: Well, Non-toxic, No Acute Distress - Extremities Exam Additional comments: Lower extremity focused exam: Vasc: Non-palpable pedal pulses due to edema B/L, TG warm to warm, CFT < 3 sec to all digits, +1 pitting edema to bilateral lower extremities distal to tibial tuberosity Derm: Localized mild non-streaking, blanchable periwound erythema to mid-calf level B/L. Left: Multiple continuous circumferential bright red open ulcerations extending from tibial tuberosity to medial malleolus noted to the mid leg, with posterior leg extension to inferior poplitieal crease. Moderate active sanguinous drainage, wound base is 100% granular. Mild shital-wound macerations to posterior leg wound margins . No purulence noted, moderate malodor noted. Right: Open superficial ulceration noted to the anteromedial aspect of leg at mid-calf level approximately 6cm x 4cm. Mild sero-sanguinous drainage, wound base is 100% granular with no shital-wound macerations. No purulence noted, moderate malodor noted. L heel exhibits Neuro: protective sensation mildly diminished ORTHO: moderate-severe pain on palpation of posterior and medial L leg. Minimal tenderness to palpation of R leg - Neurological Exam Neurological Exam: Alert, Awake, Oriented x3 - Psychiatric Exam Psychiatric exam: Normal Affect, Normal Mood Assessment and Plan - Assessment and Plan (Free Text) Assessment: 57 year old male with bilateral chronic, recurrent wounds to lower extremities Plan: Patient seen and evaluated with attending Dr. Laguna, present. Chart, labs, vitals; afebrile, absent leukocytosis Bilateral leg wound cx-pending Continue medical management per medical team Intervention: Continue local wound care. Saline cleanse, Bactroban, Telfa, ABD, DSD, JOSE B/L to level of tibial tuberosisty. ID consult- pending wound culture results. Continue empirical abx treatment. Podiatry will continue to follow
[2018-05-06] MEDS: Nystatin 100,000 Units/gm Topical Pow(15 gm) TOP SCH (17:44)
[2018-05-07] MEDS: Oxycodone/Acetaminophen 5/325 mg Tab PO PRN ×5 (02:16→20:34)
[2018-05-07] MEDS: ceFAZolin IV 1 gm in Dextrose 1 GM/50 ML BAG IVPB SCH ×2 (03:02→11:13)
[2018-05-07] MEDS: oxyCODONE 80 mg ER Tab (oxyCONTIN) PO SCH ×3 (05:44→17:56)
[2018-05-07] MEDS: Levothyroxine 75 MCG TAB PO SCH (06:20)
[2018-05-07 07:01] LABS: INR 1.2; PROTHROMBIN TIME 13.3 SECONDS (9.7-12.2)
[2018-05-07] MEDS: (Novolog) Insulin Aspart, Recombinant 100 u/ml 10 ml vial SC SCH ×4 (08:29→21:21)
--- NOTE | 2018-05-07 09:31 | CP.PCM.PN ---
Subjective - Date & Time of Evaluation Date of Evaluation: 05/06/18 Time of Evaluation: 19:00 - Subjective Subjective: pt is seen and evaluated at bedside, is on medical management Objective - Vital Signs/Intake and Output Vital Signs (last 24 hours): Temp Pulse Resp BP Pulse Ox 98.7 F 68 20 123/76 97 05/07/18 08:00 05/07/18 08:00 05/07/18 08:00 05/07/18 08:00 05/07/18 08:00 Intake and Output: 05/07/18 05/07/18 06:59 18:59 Intake Total 750 Output Total 1150 Balance -400 - Medications Medications: Current Medications Bacitracin (Bacitracin) 0 gm TOP DAILY [facility] Docusate Sodium (Colace) 100 mg PO DAILY [facility] Last Admin: 05/06/18 09:28 Dose: 100 mg Furosemide (Lasix) 80 mg PO BID [facility] Last Admin: 05/06/18 17:39 Dose: 80 mg Gabapentin (Neurontin) 300 mg PO TID [facility] Last Admin: 05/06/18 17:40 Dose: 300 mg Hydralazine HCl (Apresoline) 25 mg PO BID [facility] Last Admin: 05/06/18 17:39 Dose: 25 mg Cefazolin Sodium/Dextrose (Ancef Iv 1 Gm Duplex) 1 gm in 50 mls @ 100 mls/hr IVPB Q8H [facility] PRN Reason: Protocol Last Admin: 05/07/18 03:02 Dose: 100 mls/hr Insulin Aspart (Novolog) 0 unit SC ACHS [facility] PRN Reason: Protocol Last Admin: 05/07/18 08:29 Dose: Not Given Levothyroxine Sodium (Synthroid) 75 mcg PO DAILY@0630 [facility] Last Admin: 05/07/18 06:20 Dose: 75 mcg Metformin HCl (Glucophage Xr) 1,000 mg PO BID [facility] Last Admin: 05/06/18 17:37 Dose: 1,000 mg Nystatin (Nystop Topical Powder) 0 gm TOP BID [facility] Last Admin: 05/06/18 17:44 Dose: 1 applic Oxycodone HCl (Oxycontin Extended Release Tab) 80 mg PO Q6H [facility] Last Admin: 05/07/18 05:44 Dose: 80 mg Oxycodone/Acetaminophen (Percocet 5/325 Mg Tab) 2 tab PO Q4H PRN PRN Reason: pain Stop: 05/08/18 17:33 Last Admin: 05/07/18 07:00 Dose: 2 tab - Labs Labs: 05/05/18 14:32 05/05/18 14:32 PT 13.3 SECONDS (9.7-12.2) H 05/07/18 06:35 INR 1.2 05/07/18 06:35 Assessment and Plan (1) Cellulitis Status: Acute (2) Chronic skin ulcer of lower leg Status: Acute (3) Diabetes Status: Acute (4) ANTONIA (generalized anxiety disorder) Status: Acute (5) HTN (hypertension) Status: Acute (6) Morbid obesity Status: Acute (7) Asthma Status: Chronic (8) Hypothyroidism Status: Chronic
[2018-05-07] MEDS: Bacitracin Ointment 30 GM TUBE TOP SCH (09:44)
[2018-05-07] MEDS: Nystatin 100,000 Units/gm Topical Pow(15 gm) TOP SCH ×2 (09:49→17:55)
--- NOTE | 2018-05-07 11:37 | CP.PCM.PN ---
Subjective - Date & Time of Evaluation Date of Evaluation: 05/07/18 Time of Evaluation: 11:35 - Subjective Subjective: Podiatry Progress Note- Dr. Laguna 57 year old male seen at bedside concerning chronic recurrent bilateral leg ulcers. Patient states that he has significant pain to the rear of his left lower extremity exacerbated during dressing changes. Patient denies any other pedal complaints at this time. Denies F/C/N/V/CP/SOB Objective - Vital Signs/Intake and Output Vital Signs (last 24 hours): Temp Pulse Resp BP Pulse Ox 98.7 F 68 20 123/76 97 05/07/18 08:00 05/07/18 08:00 05/07/18 08:00 05/07/18 09:42 05/07/18 08:00 Intake and Output: 05/07/18 05/07/18 06:59 18:59 Intake Total 750 Output Total 1150 Balance -400 - Medications Medications: Current Medications Bacitracin (Bacitracin) 0 gm TOP DAILY [facility] Last Admin: 05/07/18 09:44 Dose: 1 applic Docusate Sodium (Colace) 100 mg PO DAILY [facility] Last Admin: 05/07/18 09:42 Dose: 100 mg Furosemide (Lasix) 80 mg PO BID [facility] Last Admin: 05/07/18 09:42 Dose: 80 mg Gabapentin (Neurontin) 300 mg PO TID [facility] Last Admin: 05/07/18 09:42 Dose: 300 mg Hydralazine HCl (Apresoline) 25 mg PO BID [facility] Last Admin: 05/07/18 09:42 Dose: 25 mg Cefazolin Sodium/Dextrose (Ancef Iv 1 Gm Duplex) 1 gm in 50 mls @ 100 mls/hr IVPB Q8H [facility] PRN Reason: Protocol Last Admin: 05/07/18 11:13 Dose: 100 mls/hr Insulin Aspart (Novolog) 0 unit SC ACHS [facility] PRN Reason: Protocol Last Admin: 05/07/18 08:29 Dose: Not Given Levothyroxine Sodium (Synthroid) 75 mcg PO DAILY@0630 [facility] Last Admin: 05/07/18 06:20 Dose: 75 mcg Metformin HCl (Glucophage Xr) 1,000 mg PO BID [facility] Last Admin: 05/07/18 09:42 Dose: 1,000 mg Nystatin (Nystop Topical Powder) 0 gm TOP BID [facility] Last Admin: 05/07/18 09:49 Dose: 1 applic Oxycodone HCl (Oxycontin Extended Release Tab) 80 mg PO Q6H [facility] Last Admin: 05/07/18 05:44 Dose: 80 mg Oxycodone/Acetaminophen (Percocet 5/325 Mg Tab) 2 tab PO Q4H PRN PRN Reason: pain Stop: 05/08/18 17:33 Last Admin: 05/07/18 10:57 Dose: 2 tab Warfarin Sodium (Coumadin) 10 mg PO 1800 [facility] Stop: 05/07/18 18:01 Warfarin Sodium (Coumadin) 1 mg PO 1800 [facility] Stop: 05/07/18 18:01 - Labs Labs: 05/05/18 14:32 05/05/18 14:32 PT 13.3 SECONDS (9.7-12.2) H 05/07/18 06:35 INR 1.2 05/07/18 06:35 - Constitutional Appears: Well, Non-toxic, No Acute Distress - Extremities Exam Additional comments: Lower extremity focused exam: Vasc: Non-palpable pedal pulses due to edema B/L, TG warm to warm, CFT < 3 sec to all digits, +1 pitting edema to bilateral lower extremities distal to tibial tuberosity Derm: Localized mild non-streaking, blanchable periwound erythema to mid-calf level B/L. Left: Multiple continuous circumferential bright red open ulcerations extending from tibial tuberosity to medial malleolus noted to the mid leg, with posterior leg extension to inferior poplitieal crease. Moderate active sanguinous drainage, wound base is 100% granular. Mild shital-wound macerations to posterior leg wound margins . No purulence noted, moderate malodor noted. Right: Open superficial ulceration noted to the anteromedial aspect of leg at mid-calf level approximately 6cm x 4cm. Mild sero-sanguinous drainage, wound base is 100% granular with no shital-wound macerations. No purulence noted, moderate malodor noted. L heel exhibits Neuro: protective sensation mildly diminished ORTHO: moderate-severe pain on palpation of posterior and medial L leg. Minimal tenderness to palpation of R leg - Neurological Exam Neurological Exam: Alert, Awake, Oriented x3 - Psychiatric Exam Psychiatric exam: Normal Affect, Normal Mood Assessment and Plan - Assessment and Plan (Free Text) Assessment: 57 year old male with bilateral chronic, recurrent wounds to lower extremities Plan: Patient seen and evaluated. Discussed with attending Dr. Laguna, who endorsed the following plan. Chart, labs, vitals; afebrile, absent leukocytosis Bilateral leg wound cx results -MRSA & Proteus mirabillis Continue medical management per medical team Intervention: Continue local wound care. Saline cleanse, Bactroban, Telfa, ABD, DSD, JOSE B/L to level of tibial tuberosisty. ID consult- IV abx per ID. Podiatry will continue to follow
--- NOTE | 2018-05-07 12:22 | CP.PCM.PN ---
Subjective - Date & Time of Evaluation Date of Evaluation: 05/07/18 Time of Evaluation: 08:00 - Subjective Subjective: mrsa positive on culture as well as gram neg add vanco cefepime contact iso Objective - Vital Signs/Intake and Output Vital Signs (last 24 hours): Temp Pulse Resp BP Pulse Ox 98.7 F 68 20 123/76 97 05/07/18 08:00 05/07/18 08:00 05/07/18 08:00 05/07/18 09:42 05/07/18 08:00 Intake and Output: 05/07/18 05/07/18 06:59 18:59 Intake Total 750 Output Total 1150 Balance -400 - Medications Medications: Current Medications Bacitracin (Bacitracin) 0 gm TOP DAILY [facility] Last Admin: 05/07/18 09:44 Dose: 1 applic Docusate Sodium (Colace) 100 mg PO DAILY [facility] Last Admin: 05/07/18 09:42 Dose: 100 mg Furosemide (Lasix) 80 mg PO BID [facility] Last Admin: 05/07/18 09:42 Dose: 80 mg Gabapentin (Neurontin) 300 mg PO TID [facility] Last Admin: 05/07/18 09:42 Dose: 300 mg Hydralazine HCl (Apresoline) 25 mg PO BID [facility] Last Admin: 05/07/18 09:42 Dose: 25 mg Vancomycin HCl 1,000 mg/ (Sodium Chloride) 250 mls @ 166.6 mls/hr IVPB Q12H [facility] PRN Reason: Protocol Cefepime HCl (Maxipime Iv 1 Gm Premix) 1 gm in 50 mls @ 100 mls/hr IVPB Q12H [facility] PRN Reason: Protocol Insulin Aspart (Novolog) 0 unit SC ACHS [facility] PRN Reason: Protocol Last Admin: 05/07/18 11:36 Dose: Not Given Levothyroxine Sodium (Synthroid) 75 mcg PO DAILY@0630 [facility] Last Admin: 05/07/18 06:20 Dose: 75 mcg Metformin HCl (Glucophage Xr) 1,000 mg PO BID [facility] Last Admin: 05/07/18 09:42 Dose: 1,000 mg Nystatin (Nystop Topical Powder) 0 gm TOP BID [facility] Last Admin: 05/07/18 09:49 Dose: 1 applic Oxycodone HCl (Oxycontin Extended Release Tab) 80 mg PO Q6H [facility] Last Admin: 05/07/18 12:06 Dose: 80 mg Oxycodone/Acetaminophen (Percocet 5/325 Mg Tab) 2 tab PO Q4H PRN PRN Reason: pain Stop: 05/08/18 17:33 Last Admin: 05/07/18 10:57 Dose: 2 tab Warfarin Sodium (Coumadin) 10 mg PO 1800 [facility] Stop: 05/07/18 18:01 Warfarin Sodium (Coumadin) 1 mg PO 1800 [facility] Stop: 05/07/18 18:01 - Labs Labs: 05/05/18 14:32 05/05/18 14:32 PT 13.3 SECONDS (9.7-12.2) H 05/07/18 06:35 INR 1.2 05/07/18 06:35 - Constitutional Appears: Non-toxic, Chronically Ill - Head Exam Head Exam: NORMOCEPHALIC - Eye Exam Eye Exam: PERRL - ENT Exam ENT Exam: Mucous Membranes Dry - Neck Exam Neck Exam: absent: Lymphadenopathy - Respiratory Exam Respiratory Exam: Decreased Breath Sounds - Cardiovascular Exam Cardiovascular Exam: REGULAR RHYTHM - GI/Abdominal Exam GI & Abdominal Exam: Distended, Soft. 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
[2018-05-07] MEDS ORDERED: Vancomycin 1 gm/NS 200 ml 1 GM/200 ML BAG IVPB SCH (13:00)
[2018-05-07] MEDS: Cefepime IV 1 gm in Dextrose 1 GM/50 ML BAG IVPB SCH (13:43)
[2018-05-07] MEDS: Vancomycin 1 gm/NS 200 ml 1 GM/200 ML BAG IVPB SCH (14:17)
[2018-05-08] MEDS: oxyCODONE 80 mg ER Tab (oxyCONTIN) PO SCH ×4 (00:05→18:18)
[2018-05-08] MEDS: Cefepime IV 1 gm in Dextrose 1 GM/50 ML BAG IVPB SCH ×2 (00:10→12:00)
--- NOTE | 2018-05-08 00:16 | CP.PCM.PN ---
Subjective - Date & Time of Evaluation Date of Evaluation: 05/07/18 Time of Evaluation: 18:35 - Subjective Subjective: Pt is seen and examined at bedside Objective - Vital Signs/Intake and Output Vital Signs (last 24 hours): Temp Pulse Resp BP Pulse Ox 97.7 F 76 20 105/70 96 05/07/18 16:00 05/07/18 16:00 05/07/18 16:00 05/07/18 17:57 05/07/18 16:00 Intake and Output: 05/07/18 05/08/18 18:59 06:59 Intake Total 760 500 Output Total 900 Balance -140 500 - Medications Medications: Current Medications Bacitracin (Bacitracin) 0 gm TOP DAILY [facility] Last Admin: 05/07/18 09:44 Dose: 1 applic Docusate Sodium (Colace) 100 mg PO DAILY [facility] Last Admin: 05/07/18 09:42 Dose: 100 mg Furosemide (Lasix) 80 mg PO BID [facility] Last Admin: 05/07/18 17:57 Dose: 80 mg Gabapentin (Neurontin) 300 mg PO TID [facility] Last Admin: 05/07/18 17:55 Dose: 300 mg Hydralazine HCl (Apresoline) 25 mg PO BID [facility] Last Admin: 05/07/18 17:57 Dose: Not Given Cefepime HCl (Maxipime Iv 1 Gm Premix) 1 gm in 50 mls @ 100 mls/hr IVPB Q12H [facility] PRN Reason: Protocol Last Admin: 05/08/18 00:10 Dose: 100 mls/hr Vancomycin/Sodium Chloride (Vancomycin 1 Gm/Ns 200 Ml) 1 gm in 200 mls @ 133.333 mls/hr IVPB Q12H [facility] PRN Reason: Protocol Stop: 05/12/18 14:01 Last Admin: 05/07/18 14:17 Dose: 133.333 mls/hr Insulin Aspart (Novolog) 0 unit SC ACHS [facility] PRN Reason: Protocol Last Admin: 05/07/18 21:21 Dose: Not Given Levothyroxine Sodium (Synthroid) 75 mcg PO DAILY@0630 [facility] Last Admin: 05/07/18 06:20 Dose: 75 mcg Metformin HCl (Glucophage Xr) 1,000 mg PO BID [facility] Last Admin: 05/07/18 17:58 Dose: 1,000 mg Nystatin (Nystop Topical Powder) 0 gm TOP BID [facility] Last Admin: 05/07/18 17:55 Dose: 1 applic Oxycodone HCl (Oxycontin Extended Release Tab) 80 mg PO Q6H [facility] Last Admin: 05/08/18 00:05 Dose: 80 mg Oxycodone/Acetaminophen (Percocet 5/325 Mg Tab) 2 tab PO Q4H PRN PRN Reason: pain Stop: 05/08/18 17:33 Last Admin: 05/07/18 20:34 Dose: 2 tab - Labs Labs: 05/05/18 14:32 05/05/18 14:32 PT 13.3 SECONDS (9.7-12.2) H 05/07/18 06:35 INR 1.2 05/07/18 06:35 Assessment and Plan (1) Cellulitis Status: Acute (2) Chronic skin ulcer of lower leg Status: Acute (3) Diabetes Status: Acute (4) ANTONIA (generalized anxiety disorder) Status: Acute (5) HTN (hypertension) Status: Acute (6) Morbid obesity Status: Acute (7) Asthma Status: Chronic (8) Hypothyroidism Status: Chronic
[2018-05-08] MEDS: Vancomycin 1 gm/NS 200 ml 1 GM/200 ML BAG IVPB SCH ×2 (01:00→13:31)
[2018-05-08] MEDS: Oxycodone/Acetaminophen 5/325 mg Tab PO PRN ×4 (02:59→20:36)
[2018-05-08] MEDS: Levothyroxine 75 MCG TAB PO SCH (06:05)
[2018-05-08 07:36] LABS: INR 1.6
[2018-05-08] MEDS: (Novolog) Insulin Aspart, Recombinant 100 u/ml 10 ml vial SC SCH ×4 (08:34→22:10)
[2018-05-08] MEDS: Bacitracin Ointment 30 GM TUBE TOP SCH (10:00)
[2018-05-08] MEDS: Nystatin 100,000 Units/gm Topical Pow(15 gm) TOP SCH ×2 (10:54→18:23)
--- NOTE | 2018-05-08 10:56 | CP.PCM.PN ---
Subjective - Date & Time of Evaluation Date of Evaluation: 05/08/18 Time of Evaluation: 10:53 - Subjective Subjective: Podiatry Progress Note- Dr. Laguna 57 year old male seen at bedside with Dr. Laguna this morning regarding chronic recurrent bilateral leg ulcers. Patient states that he has significant pain to the rear of his left lower extremity exacerbated during dressing changes. Patient denies any other new pedal complaints at this time. Pt resting comfortably in bed at time of visit with multipodus boot in place to L foot. Denies F/C/N/V/CP/SOB Objective - Vital Signs/Intake and Output Vital Signs (last 24 hours): Temp Pulse Resp BP Pulse Ox 98.2 F 68 20 123/81 95 05/08/18 07:08 05/08/18 07:08 05/08/18 07:08 05/08/18 10:10 05/08/18 07:08 Intake and Output: 05/08/18 05/08/18 06:59 18:59 Intake Total 1150 Output Total 1200 Balance -50 - Medications Medications: Current Medications Bacitracin (Bacitracin) 0 gm TOP DAILY [facility] Last Admin: 05/07/18 09:44 Dose: 1 applic Docusate Sodium (Colace) 100 mg PO DAILY [facility] Last Admin: 05/08/18 10:52 Dose: Not Given Furosemide (Lasix) 80 mg PO BID [facility] Last Admin: 05/08/18 10:10 Dose: 80 mg Gabapentin (Neurontin) 300 mg PO TID [facility] Last Admin: 05/08/18 10:10 Dose: 300 mg Hydralazine HCl (Apresoline) 25 mg PO BID [facility] Last Admin: 05/08/18 10:10 Dose: 25 mg Cefepime HCl (Maxipime Iv 1 Gm Premix) 1 gm in 50 mls @ 100 mls/hr IVPB Q12H [facility] PRN Reason: Protocol Last Admin: 05/08/18 00:10 Dose: 100 mls/hr Vancomycin/Sodium Chloride (Vancomycin 1 Gm/Ns 200 Ml) 1 gm in 200 mls @ 133.333 mls/hr IVPB Q12H [facility] PRN Reason: Protocol Stop: 05/12/18 14:01 Last Admin: 05/08/18 01:00 Dose: 133.333 mls/hr Insulin Aspart (Novolog) 0 unit SC ACHS [facility] PRN Reason: Protocol Last Admin: 05/08/18 08:34 Dose: Not Given Levothyroxine Sodium (Synthroid) 75 mcg PO DAILY@0630 [facility] Last Admin: 05/08/18 06:05 Dose: 75 mcg Metformin HCl (Glucophage Xr) 1,000 mg PO BID [facility] Last Admin: 05/08/18 10:09 Dose: 1,000 mg Nystatin (Nystop Topical Powder) 0 gm TOP BID [facility] Last Admin: 05/07/18 17:55 Dose: 1 applic Oxycodone HCl (Oxycontin Extended Release Tab) 80 mg PO Q6H [facility] Last Admin: 05/08/18 06:05 Dose: 80 mg Oxycodone/Acetaminophen (Percocet 5/325 Mg Tab) 2 tab PO Q4H PRN PRN Reason: pain Stop: 05/08/18 17:33 Last Admin: 05/08/18 08:17 Dose: 2 tab Warfarin Sodium (Coumadin) 10 mg PO 1800 [facility] Stop: 05/08/18 18:01 Warfarin Sodium (Coumadin) 1 mg PO ONCE ONE Stop: 05/08/18 18:01 - Labs Labs: 05/05/18 14:32 05/05/18 14:32 PT 17.0 SECONDS (9.7-12.2) H 05/08/18 07:23 INR 1.6 05/08/18 07:23 - Constitutional Appears: Well, Non-toxic, No Acute Distress - Extremities Exam Additional comments: Lower extremity focused exam: Vasc: Non-palpable pedal pulses due to edema B/L, TG warm to warm, CFT < 3 sec to all digits, +1 pitting edema to bilateral lower extremities distal to tibial tuberosity Derm: Localized mild non-streaking, blanchable periwound erythema to mid-calf level B/L. Left: Multiple continuous circumferential bright red open ulcerations extending from tibial tuberosity to medial malleolus noted to the mid leg, with posterior leg extension to inferior popliteal crease. Moderate active sanguinous drainage , wound base is 100% granular. Mild shital-wound macerations to posterior leg wound margins . No purulence noted, moderate malodor noted. Right: Open superficial ulceration noted to the anteromedial aspect of leg at mid-calf level approximately 6cm x 4cm. Mild sero-sanguinous drainage, wound base is 100% granular with no shital-wound macerations. No purulence noted, moderate malodor noted. L heel exhibits Neuro: protective sensation mildly diminished ORTHO: moderate pain on palpation of posterior and medial L leg. Minimal tenderness to palpation of R leg - Neurological Exam Neurological Exam: Alert, Awake, Oriented x3 - Psychiatric Exam Psychiatric exam: Normal Affect, Normal Mood Assessment and Plan - Assessment and Plan (Free Text) Assessment: 57 year old male with bilateral chronic, recurrent wounds to lower extremities Plan: Patient seen and evaluated with attending Dr. Laguna Chart, labs, vitals; afebrile, absent leukocytosis Bilateral leg wound cx results -MRSA & Proteus mirabillis Continue medical management per medical team Intervention: Continue local wound care every other day Saline cleanse, Bactroban, Telfa, ABD, DSD, JOSE B/L to level of tibial tuberosity Continue IV abx per ID recs Podiatry will continue to follow
[2018-05-08 11:54] LABS: BASO # 0.1 K/uL (0.0-0.2); BASO % 0.9 % (0.0-2.0); EOS # 0.3 K/uL (0.0-0.7); EOS % 6.3 % (0.0-4.0); HEMOGLOBIN 10.8 g/dL (12.0-18.0); LYMPH # 1.3 K/uL (1.0-4.3); LYMPH % 22.5 % (20.0-40.0); MEAN CELL VOLUME 80.2 fL (80.0-94.0); MEAN CORPUSCULAR HEMOGLOBIN 26.6 pg (27.0-31.0); MEAN CORPUSCULAR HGB CONC 33.2 g/dL (33.0-37.0); MEAN PLATELET VOLUME 9.3 fL (7.2-11.7); MONO # 0.4 K/uL (0.0-0.8); MONO % 6.8 % (0.0-10.0); NEUT # 3.5 K/uL (1.8-7.0); NEUT % 63.5 % (50.0-75.0); RBC 4.07 Mil/uL (4.40-5.90); RED CELL DISTRIBUTION WIDTH 17.4 % (11.5-14.5); WHITE BLOOD COUNT 5.6 K/uL (4.8-10.8)
[2018-05-08 12:19] LABS: BLOOD UREA NITROGEN 26 mg/dL (9-20); CALCIUM 8.9 mg/dl (8.6-10.4); GFR AFRICAN-AMERICAN > 60; GFR NON-AFRICAN AMERICAN 57
[2018-05-09] MEDS: oxyCODONE 80 mg ER Tab (oxyCONTIN) PO SCH ×4 (00:30→18:16)
[2018-05-09] MEDS: Cefepime IV 1 gm in Dextrose 1 GM/50 ML BAG IVPB SCH ×2 (00:30→13:00)
[2018-05-09] MEDS: Vancomycin 1 gm/NS 200 ml 1 GM/200 ML BAG IVPB SCH ×2 (01:10→13:32)
[2018-05-09] MEDS: Levothyroxine 75 MCG TAB PO SCH (05:43)
[2018-05-09] MEDS: Oxycodone/Acetaminophen 5/325 mg Tab PO PRN ×4 (07:05→19:54)
[2018-05-09] MEDS: (Novolog) Insulin Aspart, Recombinant 100 u/ml 10 ml vial SC SCH ×4 (08:00→22:36)
[2018-05-09 08:01] LABS: INR 1.7; PROTHROMBIN TIME 18.1 SECONDS (9.7-12.2)
[2018-05-09] MEDS: Bacitracin Ointment 30 GM TUBE TOP SCH (11:06)
[2018-05-09] MEDS: Nystatin 100,000 Units/gm Topical Pow(15 gm) TOP SCH ×2 (11:08→18:14)
--- NOTE | 2018-05-09 15:34 | CP.PCM.PN ---
Subjective - Date & Time of Evaluation Date of Evaluation: 05/09/18 Time of Evaluation: 07:00 - Subjective Subjective: pain on/ off wounds same Objective - Vital Signs/Intake and Output Vital Signs (last 24 hours): Temp Pulse Resp BP Pulse Ox 98.7 F 65 20 119/79 95 05/09/18 08:25 05/09/18 12:08 05/09/18 08:25 05/09/18 11:01 05/09/18 12:08 Intake and Output: 05/09/18 05/09/18 06:59 18:59 Intake Total 1350 Output Total 1900 Balance -550 - Medications Medications: Current Medications Bacitracin (Bacitracin) 0 gm TOP DAILY [facility] Last Admin: 05/09/18 11:06 Dose: Not Given Docusate Sodium (Colace) 100 mg PO DAILY [facility] Last Admin: 05/09/18 11:00 Dose: 100 mg Furosemide (Lasix) 80 mg PO BID [facility] Last Admin: 05/09/18 11:01 Dose: 80 mg Gabapentin (Neurontin) 300 mg PO TID [facility] Last Admin: 05/09/18 13:36 Dose: 300 mg Hydralazine HCl (Apresoline) 25 mg PO BID [facility] Last Admin: 05/09/18 11:01 Dose: 25 mg Cefepime HCl (Maxipime Iv 1 Gm Premix) 1 gm in 50 mls @ 100 mls/hr IVPB Q12H [facility] PRN Reason: Protocol Last Admin: 05/09/18 13:00 Dose: 100 mls/hr Vancomycin/Sodium Chloride (Vancomycin 1 Gm/Ns 200 Ml) 1 gm in 200 mls @ 133.333 mls/hr IVPB Q12H [facility] PRN Reason: Protocol Stop: 05/12/18 14:01 Last Admin: 05/09/18 13:32 Dose: 133.333 mls/hr Insulin Aspart (Novolog) 0 unit SC ACHS [facility] PRN Reason: Protocol Last Admin: 05/09/18 11:55 Dose: Not Given Levothyroxine Sodium (Synthroid) 75 mcg PO DAILY@0630 [facility] Last Admin: 05/09/18 05:43 Dose: 75 mcg Metformin HCl (Glucophage Xr) 1,000 mg PO BID [facility] Last Admin: 05/09/18 11:03 Dose: 1,000 mg Nystatin (Nystop Topical Powder) 0 gm TOP BID [facility] Last Admin: 05/09/18 11:08 Dose: Not Given Oxycodone HCl (Oxycontin Extended Release Tab) 80 mg PO Q6H [facility] Last Admin: 05/09/18 12:22 Dose: 80 mg Oxycodone/Acetaminophen (Percocet 5/325 Mg Tab) 2 tab PO Q4H PRN PRN Reason: Pain, severe (8-10) Stop: 05/11/18 19:54 Last Admin: 05/09/18 10:57 Dose: 2 tab Warfarin Sodium (Coumadin) 10 mg PO 1800 [facility] Stop: 05/09/18 18:01 Warfarin Sodium (Coumadin) 1 mg PO DAILY@1800 [facility] Stop: 05/09/18 18:01 - Labs Labs: 05/08/18 11:45 05/08/18 11:45 PT 18.1 SECONDS (9.7-12.2) H 05/09/18 07:46 INR 1.7 05/09/18 07:46 - Constitutional Appears: Non-toxic, Chronically Ill - Head Exam Head Exam: NORMOCEPHALIC - Eye Exam Eye Exam: Normal appearance, PERRL - ENT Exam ENT Exam: Mucous Membranes Dry - Neck Exam Neck Exam: absent: Lymphadenopathy - Respiratory Exam Respiratory Exam: Decreased Breath Sounds - Cardiovascular Exam Cardiovascular Exam: REGULAR RHYTHM - GI/Abdominal Exam GI & Abdominal Exam: Distended - Rectal Exam Rectal Exam: Deferred - Exam Exam: NORMAL INSPECTION - Extremities Exam Extremities Exam: Pedal Edema Additional comments: Vasc: Non-palpable pedal pulses due to edema B/L, TG warm to warm, CFT < 3 sec to all digits, +1 pitting edema to bilateral lower extremities distal to tibial tuberosity Derm: Localized mild non-streaking, blanchable periwound erythema to mid-calf level B/L. Left: Multiple continuous circumferential bright red open ulcerations extending from tibial tuberosity to medial malleolus noted to the mid leg, with posterior leg extension to inferior popliteal crease. Moderate active sanguinous drainage , wound base is 100% granular. Mild shital-wound macerations to posterior leg wound margins . No purulence noted, moderate malodor noted. Right: Open superficial ulceration noted to the anteromedial aspect of leg at mid-calf level approximately 6cm x 4cm. Mild sero-sanguinous drainage, wound base is 100% granular with no shital-wound macerations. No purulence noted, moderate malodor noted. 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
--- NOTE | 2018-05-09 17:08 | CP.PCM.PN ---
Subjective - Date & Time of Evaluation Date of Evaluation: 05/08/18 Time of Evaluation: 19:00 - Subjective Subjective: Pt is seen and examined, clinincally un chnegs, still have pain in wounds and discharge in left leg ulcers on antibiotics, wound care pain on/ off wounds same Objective - Vital Signs/Intake and Output Vital Signs (last 24 hours): Temp Pulse Resp BP Pulse Ox 98.7 F 65 20 119/79 95 05/09/18 08:25 05/09/18 12:08 05/09/18 08:25 05/09/18 11:01 05/09/18 12:08 Intake and Output: 05/09/18 05/09/18 06:59 18:59 Intake Total 1350 Output Total 1900 Balance -550 - Medications Medications: Current Medications Bacitracin (Bacitracin) 0 gm TOP DAILY [facility] Last Admin: 05/09/18 11:06 Dose: Not Given Docusate Sodium (Colace) 100 mg PO DAILY [facility] Last Admin: 05/09/18 11:00 Dose: 100 mg Furosemide (Lasix) 80 mg PO BID [facility] Last Admin: 05/09/18 11:01 Dose: 80 mg Gabapentin (Neurontin) 300 mg PO TID [facility] Last Admin: 05/09/18 13:36 Dose: 300 mg Hydralazine HCl (Apresoline) 25 mg PO BID [facility] Last Admin: 05/09/18 11:01 Dose: 25 mg Cefepime HCl (Maxipime Iv 1 Gm Premix) 1 gm in 50 mls @ 100 mls/hr IVPB Q12H [facility] PRN Reason: Protocol Last Admin: 05/09/18 13:00 Dose: 100 mls/hr Vancomycin/Sodium Chloride (Vancomycin 1 Gm/Ns 200 Ml) 1 gm in 200 mls @ 133.333 mls/hr IVPB Q12H [facility] PRN Reason: Protocol Stop: 05/12/18 14:01 Last Admin: 05/09/18 13:32 Dose: 133.333 mls/hr Insulin Aspart (Novolog) 0 unit SC ACHS [facility] PRN Reason: Protocol Last Admin: 05/09/18 11:55 Dose: Not Given Levothyroxine Sodium (Synthroid) 75 mcg PO DAILY@0630 [facility] Last Admin: 05/09/18 05:43 Dose: 75 mcg Metformin HCl (Glucophage Xr) 1,000 mg PO BID [facility] Last Admin: 05/09/18 11:03 Dose: 1,000 mg Nystatin (Nystop Topical Powder) 0 gm TOP BID [facility] Last Admin: 05/09/18 11:08 Dose: Not Given Oxycodone HCl (Oxycontin Extended Release Tab) 80 mg PO Q6H [facility] Last Admin: 05/09/18 12:22 Dose: 80 mg Oxycodone/Acetaminophen (Percocet 5/325 Mg Tab) 2 tab PO Q4H [facility] PRN Reason: Pain, severe (8-10) Stop: 05/11/18 19:54 Last Admin: 05/09/18 15:40 Dose: 2 tab Warfarin Sodium (Coumadin) 10 mg PO 1800 [facility] Stop: 05/09/18 18:01 Warfarin Sodium (Coumadin) 1 mg PO DAILY@1800 [facility] Stop: 05/09/18 18:01 - Labs Labs: 05/08/18 11:45 05/08/18 11:45 PT 18.1 SECONDS (9.7-12.2) H 05/09/18 07:46 INR 1.7 05/09/18 07:46 - Constitutional Appears: No Acute Distress - Head Exam Head Exam: ATRAUMATIC, NORMAL INSPECTION, NORMOCEPHALIC - Eye Exam Eye Exam: EOMI, Normal appearance, PERRL - ENT Exam ENT Exam: Mucous Membranes Moist, Normal Exam - Neck Exam Neck Exam: Full ROM, Normal Inspection. absent: Lymphadenopathy - Respiratory Exam Respiratory Exam: Clear to Ausculation Bilateral, NORMAL BREATHING PATTERN - Cardiovascular Exam Cardiovascular Exam: REGULAR RHYTHM, +S1, +S2. absent: Murmur - GI/Abdominal Exam GI & Abdominal Exam: Soft, Normal Bowel Sounds. absent: Tenderness Assessment and Plan (1) Cellulitis Status: Acute (2) Chronic skin ulcer of lower leg Status: Acute (3) Diabetes Status: Acute (4) ANTONIA (generalized anxiety disorder) Status: Acute (5) HTN (hypertension) Status: Acute (6) Morbid obesity Status: Acute (7) Asthma Status: Chronic (8) Hypothyroidism Status: Chronic
--- NOTE | 2018-05-09 17:10 | CP.PCM.PN ---
Subjective - Date & Time of Evaluation Date of Evaluation: 05/09/18 Time of Evaluation: 20:00 - Subjective Subjective: Pt is seen and examined, clinincally un chnegs, still have pain in wounds and discharge in left leg ulcers on antibiotics, wound care pain on/ off wounds same Objective - Vital Signs/Intake and Output Vital Signs (last 24 hours): Temp Pulse Resp BP Pulse Ox 98.7 F 65 20 119/79 95 05/09/18 08:25 05/09/18 12:08 05/09/18 08:25 05/09/18 11:01 05/09/18 12:08 Intake and Output: 05/09/18 05/09/18 06:59 18:59 Intake Total 1350 Output Total 1900 Balance -550 - Medications Medications: Current Medications Bacitracin (Bacitracin) 0 gm TOP DAILY [facility] Last Admin: 05/09/18 11:06 Dose: Not Given Docusate Sodium (Colace) 100 mg PO DAILY [facility] Last Admin: 05/09/18 11:00 Dose: 100 mg Furosemide (Lasix) 80 mg PO BID [facility] Last Admin: 05/09/18 11:01 Dose: 80 mg Gabapentin (Neurontin) 300 mg PO TID [facility] Last Admin: 05/09/18 13:36 Dose: 300 mg Hydralazine HCl (Apresoline) 25 mg PO BID [facility] Last Admin: 05/09/18 11:01 Dose: 25 mg Cefepime HCl (Maxipime Iv 1 Gm Premix) 1 gm in 50 mls @ 100 mls/hr IVPB Q12H [facility] PRN Reason: Protocol Last Admin: 05/09/18 13:00 Dose: 100 mls/hr Vancomycin/Sodium Chloride (Vancomycin 1 Gm/Ns 200 Ml) 1 gm in 200 mls @ 133.333 mls/hr IVPB Q12H [facility] PRN Reason: Protocol Stop: 05/12/18 14:01 Last Admin: 05/09/18 13:32 Dose: 133.333 mls/hr Insulin Aspart (Novolog) 0 unit SC ACHS [facility] PRN Reason: Protocol Last Admin: 05/09/18 11:55 Dose: Not Given Levothyroxine Sodium (Synthroid) 75 mcg PO DAILY@0630 [facility] Last Admin: 05/09/18 05:43 Dose: 75 mcg Metformin HCl (Glucophage Xr) 1,000 mg PO BID [facility] Last Admin: 05/09/18 11:03 Dose: 1,000 mg Nystatin (Nystop Topical Powder) 0 gm TOP BID [facility] Last Admin: 05/09/18 11:08 Dose: Not Given Oxycodone HCl (Oxycontin Extended Release Tab) 80 mg PO Q6H [facility] Last Admin: 05/09/18 12:22 Dose: 80 mg Oxycodone/Acetaminophen (Percocet 5/325 Mg Tab) 2 tab PO Q4H [facility] PRN Reason: Pain, severe (8-10) Stop: 05/11/18 19:54 Last Admin: 05/09/18 15:40 Dose: 2 tab Warfarin Sodium (Coumadin) 10 mg PO 1800 [facility] Stop: 05/09/18 18:01 Warfarin Sodium (Coumadin) 1 mg PO DAILY@1800 [facility] Stop: 05/09/18 18:01 - Labs Labs: 05/08/18 11:45 05/08/18 11:45 PT 18.1 SECONDS (9.7-12.2) H 05/09/18 07:46 INR 1.7 05/09/18 07:46 Assessment and Plan (1) Cellulitis Status: Acute (2) Chronic skin ulcer of lower leg Status: Acute (3) Diabetes Status: Acute (4) ANTONIA (generalized anxiety disorder) Status: Acute (5) HTN (hypertension) Status: Acute (6) Morbid obesity Status: Acute (7) Asthma Status: Chronic (8) Hypothyroidism Status: Chronic
[2018-05-10] MEDS: oxyCODONE 80 mg ER Tab (oxyCONTIN) PO SCH ×4 (00:30→18:00)
[2018-05-10] MEDS: Cefepime IV 1 gm in Dextrose 1 GM/50 ML BAG IVPB SCH ×2 (00:30→12:12)
[2018-05-10] MEDS: Oxycodone/Acetaminophen 5/325 mg Tab PO PRN ×4 (02:00→16:29)
[2018-05-10] MEDS: Vancomycin 1 gm/NS 200 ml 1 GM/200 ML BAG IVPB SCH ×2 (02:30→13:35)
[2018-05-10] MEDS: Levothyroxine 75 MCG TAB PO SCH (06:29)
[2018-05-10] MEDS: (Novolog) Insulin Aspart, Recombinant 100 u/ml 10 ml vial SC SCH ×4 (08:01→21:25)
[2018-05-10 08:10] LABS: INR 1.9; PROTHROMBIN TIME 20.4 SECONDS (9.7-12.2)
[2018-05-10] MEDS: Nystatin 100,000 Units/gm Topical Pow(15 gm) TOP SCH ×2 (09:31→18:00)
[2018-05-10] MEDS: Bacitracin Ointment 30 GM TUBE TOP SCH (09:32)
--- NOTE | 2018-05-10 23:44 | CP.PCM.PN ---
Subjective - Date & Time of Evaluation Date of Evaluation: 05/10/18 Time of Evaluation: 18:00 - Subjective Subjective: Pt seen and examined at bedside, his wound is improving, discharge is less as compared to before, no fever, nausea, vomiting, kidney function is stable Objective - Vital Signs/Intake and Output Vital Signs (last 24 hours): Temp Pulse Resp BP Pulse Ox 98 F 72 20 105/61 97 05/10/18 16:00 05/10/18 16:00 05/10/18 16:00 05/10/18 17:59 05/10/18 16:00 - Medications Medications: Current Medications Bacitracin (Bacitracin) 0 gm TOP DAILY [facility] Last Admin: 05/10/18 09:32 Dose: 1 applic Docusate Sodium (Colace) 100 mg PO DAILY [facility] Last Admin: 05/10/18 09:32 Dose: 100 mg Furosemide (Lasix) 80 mg PO BID [facility] Last Admin: 05/10/18 17:59 Dose: 80 mg Gabapentin (Neurontin) 300 mg PO TID [facility] Last Admin: 05/10/18 18:03 Dose: 300 mg Hydralazine HCl (Apresoline) 25 mg PO BID [facility] Last Admin: 05/10/18 18:00 Dose: 25 mg Cefepime HCl (Maxipime Iv 1 Gm Premix) 1 gm in 50 mls @ 100 mls/hr IVPB Q12H [facility] PRN Reason: Protocol Last Admin: 05/10/18 12:12 Dose: 100 mls/hr Vancomycin/Sodium Chloride (Vancomycin 1 Gm/Ns 200 Ml) 1 gm in 200 mls @ 133.333 mls/hr IVPB Q12H [facility] PRN Reason: Protocol Stop: 05/12/18 14:01 Last Admin: 05/10/18 13:35 Dose: 133.333 mls/hr Insulin Aspart (Novolog) 0 unit SC ACHS [facility] PRN Reason: Protocol Last Admin: 05/10/18 21:25 Dose: Not Given Levothyroxine Sodium (Synthroid) 75 mcg PO DAILY@0630 [facility] Last Admin: 05/10/18 06:29 Dose: 75 mcg Metformin HCl (Glucophage Xr) 1,000 mg PO BID [facility] Last Admin: 05/10/18 18:05 Dose: 1,000 mg Nystatin (Nystop Topical Powder) 0 gm TOP BID [facility] Last Admin: 05/10/18 18:00 Dose: 1 applic Oxycodone HCl (Oxycontin Extended Release Tab) 80 mg PO Q6H [facility] Last Admin: 05/10/18 18:00 Dose: 80 mg Oxycodone/Acetaminophen (Percocet 5/325 Mg Tab) 2 tab PO Q4H [facility] PRN Reason: Pain, severe (8-10) Stop: 05/11/18 19:54 Last Admin: 05/10/18 16:29 Dose: 2 tab - Labs Labs: 05/08/18 11:45 05/08/18 11:45 PT 20.4 SECONDS (9.7-12.2) H 05/10/18 08:01 INR 1.9 05/10/18 08:01 - Constitutional Appears: No Acute Distress - Head Exam Head Exam: ATRAUMATIC, NORMAL INSPECTION, NORMOCEPHALIC - Eye Exam Eye Exam: EOMI, Normal appearance, PERRL Pupil Exam: NORMAL ACCOMODATION, PERRL - Respiratory Exam Respiratory Exam: Clear to Ausculation Bilateral, NORMAL BREATHING PATTERN - Cardiovascular Exam Cardiovascular Exam: REGULAR RHYTHM, +S1, +S2. absent: Murmur - GI/Abdominal Exam GI & Abdominal Exam: Soft, Normal Bowel Sounds. absent: Tenderness - Rectal Exam Rectal Exam: Deferred Assessment and Plan (1) Cellulitis Status: Acute (2) Chronic skin ulcer of lower leg Status: Acute (3) Diabetes Status: Acute (4) ANTONIA (generalized anxiety disorder) Status: Acute (5) HTN (hypertension) Status: Acute (6) Morbid obesity Status: Acute (7) Asthma Status: Chronic (8) Hypothyroidism Status: Chronic
[2018-05-11] MEDS: Cefepime IV 1 gm in Dextrose 1 GM/50 ML BAG IVPB SCH ×2 (00:29→12:02)
[2018-05-11] MEDS: oxyCODONE 80 mg ER Tab (oxyCONTIN) PO SCH ×4 (00:32→17:38)
[2018-05-11] MEDS: Vancomycin 1 gm/NS 200 ml 1 GM/200 ML BAG IVPB SCH ×2 (01:11→13:44)
[2018-05-11] MEDS: Oxycodone/Acetaminophen 5/325 mg Tab PO PRN ×5 (01:30→22:25)
[2018-05-11] MEDS: Levothyroxine 75 MCG TAB PO SCH (05:45)
[2018-05-11 06:36] LABS: INR 2.1; PROTHROMBIN TIME 23.5 SECONDS (9.7-12.2)
[2018-05-11] MEDS: (Novolog) Insulin Aspart, Recombinant 100 u/ml 10 ml vial SC SCH ×4 (07:31→21:19)
[2018-05-11] MEDS: Bacitracin Ointment 30 GM TUBE TOP SCH (10:32)
[2018-05-11] MEDS: Nystatin 100,000 Units/gm Topical Pow(15 gm) TOP SCH ×2 (10:44→21:20)
--- NOTE | 2018-05-11 12:08 | CP.PCM.PN ---
<Yashira Leyva - Last Filed: 05/11/18 12:05> Subjective - Date & Time of Evaluation Date of Evaluation: 05/11/18 Time of Evaluation: 08:00 - Subjective Subjective: Podiatry Progress Note- Dr. Laguna 57 year old male seen at bedside with Dr. Laguna this morning regarding chronic recurrent bilateral leg ulcers. Patient states that he well controlled pain to the rear of his left lower extremity. Patient denies any other new pedal complaints at this time. Pt resting comfortably in bed at time of visit with multipodus boot in place to L foot. Denies F/C/N/V/CP/SOB Objective - Vital Signs/Intake and Output Vital Signs (last 24 hours): Temp Pulse Resp BP Pulse Ox 98.2 F 70 20 112/70 95 05/11/18 07:45 05/11/18 07:45 05/11/18 07:45 05/11/18 09:56 05/11/18 07:45 - Medications Medications: Current Medications Bacitracin (Bacitracin) 0 gm TOP DAILY [facility] Last Admin: 05/11/18 10:32 Dose: Not Given Docusate Sodium (Colace) 100 mg PO DAILY [facility] Last Admin: 05/11/18 10:57 Dose: 100 mg Furosemide (Lasix) 80 mg PO BID [facility] Last Admin: 05/11/18 09:56 Dose: 80 mg Gabapentin (Neurontin) 300 mg PO TID [facility] Last Admin: 05/11/18 09:56 Dose: 300 mg Hydralazine HCl (Apresoline) 25 mg PO BID [facility] Last Admin: 05/11/18 09:56 Dose: 25 mg Cefepime HCl (Maxipime Iv 1 Gm Premix) 1 gm in 50 mls @ 100 mls/hr IVPB Q12H [facility] PRN Reason: Protocol Last Admin: 05/11/18 12:02 Dose: 100 mls/hr Vancomycin/Sodium Chloride (Vancomycin 1 Gm/Ns 200 Ml) 1 gm in 200 mls @ 133.333 mls/hr IVPB Q12H [facility] PRN Reason: Protocol Stop: 05/12/18 14:01 Last Admin: 05/11/18 01:11 Dose: 133.333 mls/hr Insulin Aspart (Novolog) 0 unit SC ACHS [facility] PRN Reason: Protocol Last Admin: 05/11/18 12:00 Dose: 1 unit Levothyroxine Sodium (Synthroid) 75 mcg PO DAILY@0630 [facility] Last Admin: 05/11/18 05:45 Dose: 75 mcg Metformin HCl (Glucophage Xr) 1,000 mg PO BID [facility] Last Admin: 05/11/18 09:56 Dose: 1,000 mg Nystatin (Nystop Topical Powder) 0 gm TOP BID [facility] Last Admin: 05/11/18 10:44 Dose: 1 applic Oxycodone HCl (Oxycontin Extended Release Tab) 80 mg PO Q6H [facility] Last Admin: 05/11/18 11:58 Dose: 80 mg Oxycodone/Acetaminophen (Percocet 5/325 Mg Tab) 2 tab PO Q4H PRN PRN Reason: Pain, severe (8-10) Stop: 05/11/18 19:54 Last Admin: 05/11/18 10:56 Dose: 2 tab Warfarin Sodium (Coumadin) 10 mg PO 1800 [facility] Stop: 05/11/18 18:01 - Labs Labs: 05/08/18 11:45 05/08/18 11:45 PT 23.5 SECONDS (9.7-12.2) H 05/11/18 06:18 INR 2.1 05/11/18 06:18 - Constitutional Appears: Well, Non-toxic, No Acute Distress - Extremities Exam Additional comments: Lower extremity focused exam: Vasc: Non-palpable pedal pulses due to edema B/L, TG warm to warm, CFT < 3 sec to all digits, +1 pitting edema to bilateral lower extremities distal to tibial tuberosity Derm: Localized mild non-streaking, blanchable periwound erythema to mid-calf level B/L. Left: Multiple continuous circumferential red open ulcerations extending from tibial tuberosity to medial malleolus noted to the mid leg, with posterior leg extension to inferior popliteal crease. Minor active sanguinous drainage, wound base is 100% granular. No shital-wound macerations to posterior leg wound margins . No purulence noted, moderate malodor noted. Right: Open superficial ulceration noted to the anteromedial aspect of leg at mid-calf level approximately 4cm x 3cm. No active sero-sanguinous drainage, wound base is 100% granular with no shital-wound macerations. Wound margin beginning to undergo early stage re-epthelialization. No purulence noted, moderate malodor noted. L heel exhibits. Neuro: protective sensation mildly diminished ORTHO: moderate pain on palpation of posterior and medial L leg. Minimal tenderness to palpation of R leg - Neurological Exam Neurological Exam: Alert, Awake, Oriented x3 - Psychiatric Exam Psychiatric exam: Normal Affect, Normal Mood Assessment and Plan - Assessment and Plan (Free Text) Assessment: 57 year old male with bilateral chronic, recurrent wounds to lower extremities Plan: Patient seen and evaluated with attending Dr. Laguna Chart, labs, vitals; afebrile, absent leukocytosis Bilateral leg wound cx results -MRSA & Proteus mirabillis Continue medical management per medical team Intervention: Continue local wound care every other day Saline cleanse, Bactroban, Telfa, ABD, DSD, JOSE B/L to level of tibial tuberosity Continue IV abx per ID recs Podiatry will continue to follow <Casey Laguna - Last Filed: 05/11/18 21:13> Objective - Vital Signs/Intake and Output Vital Signs (last 24 hours): Temp Pulse Resp BP Pulse Ox 98.1 F 67 20 115/69 98 05/11/18 16:00 05/11/18 16:00 05/11/18 16:00 05/11/18 17:36 05/11/18 16:00 Intake and Output: 05/11/18 05/12/18 18:59 06:59 Intake Total 1050 Output Total 1000 Balance 50 - Medications Medications: Current Medications Bacitracin (Bacitracin) 0 gm TOP DAILY [facility] Last Admin: 05/11/18 10:32 Dose: Not Given Docusate Sodium (Colace) 100 mg PO DAILY [facility] Last Admin: 05/11/18 10:57 Dose: 100 mg Furosemide (Lasix) 80 mg PO BID [facility] Last Admin: 05/11/18 17:36 Dose: 80 mg Gabapentin (Neurontin) 300 mg PO TID [facility] Last Admin: 05/11/18 17:37 Dose: 300 mg Hydralazine HCl (Apresoline) 25 mg PO BID [facility] Last Admin: 05/11/18 17:38 Dose: 25 mg Cefepime HCl (Maxipime Iv 1 Gm Premix) 1 gm in 50 mls @ 100 mls/hr IVPB Q12H [facility] PRN Reason: Protocol Last Admin: 05/11/18 12:02 Dose: 100 mls/hr Vancomycin/Sodium Chloride (Vancomycin 1 Gm/Ns 200 Ml) 1 gm in 200 mls @ 133.333 mls/hr IVPB Q12H [facility] PRN Reason: Protocol Stop: 05/12/18 14:01 Last Admin: 05/11/18 13:44 Dose: 133.333 mls/hr Insulin Aspart (Novolog) 0 unit SC ACHS [facility] PRN Reason: Protocol Last Admin: 05/11/18 16:41 Dose: Not Given Levothyroxine Sodium (Synthroid) 75 mcg PO DAILY@0630 [facility] Last Admin: 05/11/18 05:45 Dose: 75 mcg Metformin HCl (Glucophage Xr) 1,000 mg PO BID [facility] Last Admin: 05/11/18 17:35 Dose: 1,000 mg Nystatin (Nystop Topical Powder) 0 gm TOP BID [facility] Last Admin: 05/11/18 10:44 Dose: 1 applic Oxycodone HCl (Oxycontin Extended Release Tab) 80 mg PO Q6H [facility] Last Admin: 05/11/18 17:38 Dose: 80 mg - Labs Labs: 05/08/18 11:45 05/08/18 11:45 PT 23.5 SECONDS (9.7-12.2) H 05/11/18 06:18 INR 2.1 05/11/18 06:18 Assessment and Plan - Assessment and Plan (Free Text) Plan: Pt seen at bedside .Labs and chart reviewed . Above Culture results noted . Wound is improved left but extensive .Continue local care and medical management /DR Marquita LAGUNA
[2018-05-12] MEDS: oxyCODONE 80 mg ER Tab (oxyCONTIN) PO SCH ×4 (00:09→18:34)
[2018-05-12] MEDS: Cefepime IV 1 gm in Dextrose 1 GM/50 ML BAG IVPB SCH ×2 (00:11→12:28)
[2018-05-12] MEDS: Vancomycin 1 gm/NS 200 ml 1 GM/200 ML BAG IVPB SCH ×2 (02:20→13:18)
[2018-05-12] MEDS: Oxycodone/Acetaminophen 5/325 mg Tab PO PRN ×5 (02:24→22:31)
[2018-05-12] MEDS: Levothyroxine 75 MCG TAB PO SCH (05:39)
[2018-05-12 06:23] LABS: INR 2.2; PROTHROMBIN TIME 24.5 SECONDS (9.7-12.2)
[2018-05-12] MEDS: (Novolog) Insulin Aspart, Recombinant 100 u/ml 10 ml vial SC SCH ×4 (07:39→21:49)
--- NOTE | 2018-05-12 09:04 | CP.PCM.PN ---
Subjective - Date & Time of Evaluation Date of Evaluation: 05/11/18 Time of Evaluation: 18:00 - Subjective Subjective: Patient seen and examined at bedside, states that he well controlled pain to the rear of his left lower extremity. Patient denies any other new pedal complaints at this time. Pt resting comfortably in bed at time of visit with multipodus boot in place to L foot. Denies F/C/N/V/CP/SOB Objective - Vital Signs/Intake and Output Vital Signs (last 24 hours): Temp Pulse Resp BP Pulse Ox 97.8 F 72 20 129/85 96 05/12/18 07:54 05/12/18 07:54 05/12/18 07:54 05/12/18 07:54 05/12/18 07:54 Intake and Output: 05/12/18 05/12/18 06:59 18:59 Intake Total 1250 Balance 1250 - Medications Medications: Current Medications Bacitracin (Bacitracin) 0 gm TOP DAILY [facility] Last Admin: 05/11/18 10:32 Dose: Not Given Docusate Sodium (Colace) 100 mg PO DAILY [facility] Last Admin: 05/11/18 10:57 Dose: 100 mg Furosemide (Lasix) 80 mg PO BID [facility] Last Admin: 05/11/18 17:36 Dose: 80 mg Gabapentin (Neurontin) 300 mg PO TID [facility] Last Admin: 05/11/18 17:37 Dose: 300 mg Hydralazine HCl (Apresoline) 25 mg PO BID [facility] Last Admin: 05/11/18 17:38 Dose: 25 mg Cefepime HCl (Maxipime Iv 1 Gm Premix) 1 gm in 50 mls @ 100 mls/hr IVPB Q12H [facility] PRN Reason: Protocol Last Admin: 05/12/18 00:11 Dose: 100 mls/hr Vancomycin/Sodium Chloride (Vancomycin 1 Gm/Ns 200 Ml) 1 gm in 200 mls @ 133.333 mls/hr IVPB Q12H [facility] PRN Reason: Protocol Stop: 05/12/18 14:01 Last Admin: 05/12/18 02:20 Dose: 133.333 mls/hr Insulin Aspart (Novolog) 0 unit SC ACHS [facility] PRN Reason: Protocol Last Admin: 05/12/18 07:39 Dose: Not Given Levothyroxine Sodium (Synthroid) 75 mcg PO DAILY@30 [facility] Last Admin: 05/12/18 05:39 Dose: 75 mcg Metformin HCl (Glucophage Xr) 1,000 mg PO BID [facility] Last Admin: 05/11/18 17:35 Dose: 1,000 mg Nystatin (Nystop Topical Powder) 0 gm TOP BID [facility] Last Admin: 05/11/18 21:20 Dose: 1 applic Oxycodone/Acetaminophen (Percocet 5/325 Mg Tab) 2 tab PO Q4H PRN PRN Reason: Pain, moderate (4-7) Stop: 05/14/18 22:11 Last Admin: 05/12/18 07:43 Dose: 2 tab Warfarin Sodium (Coumadin) 10 mg PO 1800 [facility] Stop: 05/12/18 18:01 - Labs Labs: 05/08/18 11:45 05/08/18 11:45 PT 24.5 SECONDS (9.7-12.2) H 05/12/18 06:07 INR 2.2 05/12/18 06:07 - Constitutional Appears: No Acute Distress - Head Exam Head Exam: ATRAUMATIC, NORMAL INSPECTION, NORMOCEPHALIC - Eye Exam Eye Exam: EOMI, Normal appearance, PERRL Pupil Exam: NORMAL ACCOMODATION, PERRL - Respiratory Exam Respiratory Exam: Clear to Ausculation Bilateral, NORMAL BREATHING PATTERN - Cardiovascular Exam Cardiovascular Exam: REGULAR RHYTHM, +S1, +S2. absent: Murmur - GI/Abdominal Exam GI & Abdominal Exam: Soft, Normal Bowel Sounds. absent: Tenderness - Neurological Exam Neurological Exam: Alert, Awake, CN II-XII Intact, Normal Gait, Oriented x3 Assessment and Plan (1) Cellulitis Status: Acute (2) Chronic skin ulcer of lower leg Status: Acute (3) Diabetes Status: Acute (4) ANTONIA (generalized anxiety disorder) Status: Acute (5) HTN (hypertension) Status: Acute (6) Morbid obesity Status: Acute (7) Asthma Status: Chronic (8) Hypothyroidism Status: Chronic
--- NOTE | 2018-05-12 09:05 | CP.PCM.PN ---
Subjective - Date & Time of Evaluation Date of Evaluation: 05/12/18 Time of Evaluation: 18:00 - Subjective Subjective: Patient is seen and examined at bedside, states that he well controlled pain to the rear of his left lower extremity. Patient denies any other new pedal complaints at this time. Pt resting comfortably in bed at time of visit with multipodus boot in place to L foot. Denies F/C/N/V/CP/SOB Objective - Vital Signs/Intake and Output Vital Signs (last 24 hours): Temp Pulse Resp BP Pulse Ox 97.8 F 72 20 129/85 96 05/12/18 07:54 05/12/18 07:54 05/12/18 07:54 05/12/18 07:54 05/12/18 07:54 Intake and Output: 05/12/18 05/12/18 06:59 18:59 Intake Total 1250 Balance 1250 - Medications Medications: Current Medications Bacitracin (Bacitracin) 0 gm TOP DAILY [facility] Last Admin: 05/11/18 10:32 Dose: Not Given Docusate Sodium (Colace) 100 mg PO DAILY [facility] Last Admin: 05/11/18 10:57 Dose: 100 mg Furosemide (Lasix) 80 mg PO BID [facility] Last Admin: 05/11/18 17:36 Dose: 80 mg Gabapentin (Neurontin) 300 mg PO TID [facility] Last Admin: 05/11/18 17:37 Dose: 300 mg Hydralazine HCl (Apresoline) 25 mg PO BID [facility] Last Admin: 05/11/18 17:38 Dose: 25 mg Cefepime HCl (Maxipime Iv 1 Gm Premix) 1 gm in 50 mls @ 100 mls/hr IVPB Q12H [facility] PRN Reason: Protocol Last Admin: 05/12/18 00:11 Dose: 100 mls/hr Vancomycin/Sodium Chloride (Vancomycin 1 Gm/Ns 200 Ml) 1 gm in 200 mls @ 133.333 mls/hr IVPB Q12H [facility] PRN Reason: Protocol Stop: 05/12/18 14:01 Last Admin: 05/12/18 02:20 Dose: 133.333 mls/hr Insulin Aspart (Novolog) 0 unit SC ACHS [facility] PRN Reason: Protocol Last Admin: 05/12/18 07:39 Dose: Not Given Levothyroxine Sodium (Synthroid) 75 mcg PO DAILY@0630 [facility] Last Admin: 05/12/18 05:39 Dose: 75 mcg Metformin HCl (Glucophage Xr) 1,000 mg PO BID [facility] Last Admin: 05/11/18 17:35 Dose: 1,000 mg Nystatin (Nystop Topical Powder) 0 gm TOP BID [facility] Last Admin: 05/11/18 21:20 Dose: 1 applic Oxycodone/Acetaminophen (Percocet 5/325 Mg Tab) 2 tab PO Q4H PRN PRN Reason: Pain, moderate (4-7) Stop: 05/14/18 22:11 Last Admin: 05/12/18 07:43 Dose: 2 tab Warfarin Sodium (Coumadin) 10 mg PO 1800 [facility] Stop: 05/12/18 18:01 - Labs Labs: 05/08/18 11:45 05/08/18 11:45 PT 24.5 SECONDS (9.7-12.2) H 05/12/18 06:07 INR 2.2 05/12/18 06:07 Assessment and Plan (1) Cellulitis Status: Acute (2) Chronic skin ulcer of lower leg Status: Acute (3) Diabetes Status: Acute (4) ANTONIA (generalized anxiety disorder) Status: Acute (5) HTN (hypertension) Status: Acute (6) Morbid obesity Status: Acute (7) Asthma Status: Chronic (8) Hypothyroidism Status: Chronic
[2018-05-12] MEDS: Bacitracin Ointment 30 GM TUBE TOP SCH (09:43)
[2018-05-12] MEDS: Nystatin 100,000 Units/gm Topical Pow(15 gm) TOP SCH ×2 (09:43→18:00)
--- NOTE | 2018-05-12 16:54 | CP.PCM.PN ---
Subjective - Date & Time of Evaluation Date of Evaluation: 05/12/18 Time of Evaluation: 08:00 - Subjective Subjective: denies fever c/o pain wounds still draining Objective - Vital Signs/Intake and Output Vital Signs (last 24 hours): Temp Pulse Resp BP Pulse Ox 97.8 F 66 20 118/72 95 05/12/18 16:00 05/12/18 16:00 05/12/18 16:00 05/12/18 16:00 05/12/18 16:00 Intake and Output: 05/12/18 05/12/18 06:59 18:59 Intake Total 2100 Balance 2100 - Medications Medications: Current Medications Bacitracin (Bacitracin) 0 gm TOP DAILY [facility] Last Admin: 05/12/18 09:43 Dose: 1 applic Docusate Sodium (Colace) 100 mg PO DAILY [facility] Last Admin: 05/12/18 09:40 Dose: 100 mg Furosemide (Lasix) 80 mg PO BID [facility] Last Admin: 05/12/18 09:41 Dose: 80 mg Gabapentin (Neurontin) 300 mg PO TID [facility] Last Admin: 05/12/18 13:18 Dose: 300 mg Hydralazine HCl (Apresoline) 25 mg PO BID [facility] Last Admin: 05/12/18 09:39 Dose: 25 mg Cefepime HCl (Maxipime Iv 1 Gm Premix) 1 gm in 50 mls @ 100 mls/hr IVPB Q12H [facility] PRN Reason: Protocol Last Admin: 05/12/18 12:28 Dose: 100 mls/hr Insulin Aspart (Novolog) 0 unit SC ACHS [facility] PRN Reason: Protocol Last Admin: 05/12/18 16:24 Dose: Not Given Levothyroxine Sodium (Synthroid) 75 mcg PO DAILY@0630 [facility] Last Admin: 05/12/18 05:39 Dose: 75 mcg Metformin HCl (Glucophage Xr) 1,000 mg PO BID [facility] Last Admin: 05/12/18 09:40 Dose: 1,000 mg Nystatin (Nystop Topical Powder) 0 gm TOP BID [facility] Last Admin: 05/12/18 09:43 Dose: 1 applic Oxycodone HCl (Oxycontin Extended Release Tab) 80 mg PO Q6 [facility] Last Admin: 05/12/18 12:49 Dose: 80 mg Oxycodone/Acetaminophen (Percocet 5/325 Mg Tab) 2 tab PO Q4H PRN PRN Reason: Pain, moderate (4-7) Stop: 05/14/18 22:11 Last Admin: 05/12/18 11:48 Dose: 2 tab Warfarin Sodium (Coumadin) 10 mg PO 1800 [facility] Stop: 05/12/18 18:01 - Labs Labs: 05/08/18 11:45 05/08/18 11:45 PT 24.5 SECONDS (9.7-12.2) H 05/12/18 06:07 INR 2.2 05/12/18 06:07 - Constitutional Appears: Non-toxic, Chronically Ill - Head Exam Head Exam: NORMOCEPHALIC - Eye Exam Eye Exam: PERRL - ENT Exam ENT Exam: Mucous Membranes Dry - Neck Exam Neck Exam: absent: Lymphadenopathy - Respiratory Exam Respiratory Exam: Decreased Breath Sounds - Cardiovascular Exam Cardiovascular Exam: REGULAR RHYTHM - GI/Abdominal Exam GI & Abdominal Exam: Distended - Rectal Exam Rectal Exam: Deferred Assessment and Plan (1) Cellulitis Status: Acute (2) Chronic skin ulcer of lower leg Status: Acute (3) Infected stasis ulcer of left lower extremity Status: Acute (4) Ambulatory dysfunction Status: Acute (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
[2018-05-13] MEDS: Cefepime IV 1 gm in Dextrose 1 GM/50 ML BAG IVPB SCH ×2 (00:02→12:43)
[2018-05-13] MEDS: oxyCODONE 80 mg ER Tab (oxyCONTIN) PO SCH ×5 (00:03→23:52)
[2018-05-13] MEDS: Oxycodone/Acetaminophen 5/325 mg Tab PO PRN ×5 (05:13→22:44)
[2018-05-13] MEDS: Levothyroxine 75 MCG TAB PO SCH (06:26)
[2018-05-13] MEDS: (Novolog) Insulin Aspart, Recombinant 100 u/ml 10 ml vial SC SCH ×4 (08:11→22:39)
[2018-05-13] MEDS: Nystatin 100,000 Units/gm Topical Pow(15 gm) TOP SCH ×2 (10:08→17:37)
[2018-05-13] MEDS: Bacitracin Ointment 30 GM TUBE TOP SCH ×2 (10:09→12:10)
[2018-05-13 11:51] LABS: HEMOGLOBIN 11.3 g/dL (12.0-18.0); INR 2.4; MEAN CELL VOLUME 79.7 fL (80.0-94.0); MEAN CORPUSCULAR HEMOGLOBIN 26.6 pg (27.0-31.0); MEAN CORPUSCULAR HGB CONC 33.4 g/dL (33.0-37.0); MEAN PLATELET VOLUME 9.8 fL (7.2-11.7); PROTHROMBIN TIME 25.9 SECONDS (9.7-12.2); RBC 4.24 Mil/uL (4.40-5.90); RED CELL DISTRIBUTION WIDTH 16.8 % (11.5-14.5); WHITE BLOOD COUNT 6.5 K/uL (4.8-10.8)
[2018-05-13 12:09] LABS: BLOOD UREA NITROGEN 35 mg/dL (9-20); CALCIUM 9.2 mg/dl (8.6-10.4); GFR AFRICAN-AMERICAN > 60; GFR NON-AFRICAN AMERICAN > 60
--- NOTE | 2018-05-13 14:11 | CP.PCM.PN ---
Subjective - Date & Time of Evaluation Date of Evaluation: 05/13/18 Time of Evaluation: 11:00 - Subjective Subjective: Podiatry Progress Note- Dr. Laguna 57 year old male seen at bedside with Dr. Laguna this morning regarding chronic recurrent bilateral leg ulcers. Patient states that he well controlled pain to the rear of his left lower extremity. Patient denies any other new pedal complaints at this time. Pt resting comfortably in bed at time of visit. Denies F/C/N/V/CP/SOB Objective - Vital Signs/Intake and Output Vital Signs (last 24 hours): Temp Pulse Resp BP Pulse Ox 98.5 F 68 20 125/68 96 05/13/18 08:00 05/13/18 08:00 05/13/18 08:00 05/13/18 09:25 05/13/18 08:00 Intake and Output: 05/13/18 05/13/18 06:59 18:59 Intake Total 550 Output Total 3300 Balance -2750 - Medications Medications: Current Medications Bacitracin (Bacitracin) 0 gm TOP DAILY [facility] Last Admin: 05/13/18 12:10 Dose: 1 applic Docusate Sodium (Colace) 100 mg PO DAILY [facility] Last Admin: 05/13/18 09:27 Dose: 100 mg Furosemide (Lasix) 80 mg PO BID [facility] Last Admin: 05/13/18 09:25 Dose: 80 mg Gabapentin (Neurontin) 300 mg PO TID [facility] Last Admin: 05/13/18 13:47 Dose: 300 mg Hydralazine HCl (Apresoline) 25 mg PO BID [facility] Last Admin: 05/13/18 09:25 Dose: 25 mg Cefepime HCl (Maxipime Iv 1 Gm Premix) 1 gm in 50 mls @ 100 mls/hr IVPB Q12H [facility] PRN Reason: Protocol Last Admin: 05/13/18 12:43 Dose: 100 mls/hr Insulin Aspart (Novolog) 0 unit SC ACHS [facility] PRN Reason: Protocol Last Admin: 05/13/18 12:11 Dose: Not Given Levothyroxine Sodium (Synthroid) 75 mcg PO DAILY@0630 [facility] Last Admin: 05/13/18 06:26 Dose: 75 mcg Metformin HCl (Glucophage Xr) 1,000 mg PO BID [facility] Last Admin: 05/13/18 09:35 Dose: 1,000 mg Nystatin (Nystop Topical Powder) 0 gm TOP BID [facility] Last Admin: 05/13/18 10:08 Dose: 1 applic Oxycodone HCl (Oxycontin Extended Release Tab) 80 mg PO Q6 [facility] Last Admin: 05/13/18 12:07 Dose: 80 mg Oxycodone/Acetaminophen (Percocet 5/325 Mg Tab) 2 tab PO Q4H PRN PRN Reason: Pain, moderate (4-7) Stop: 05/14/18 22:11 Last Admin: 05/13/18 13:46 Dose: 2 tab - Labs Labs: 05/13/18 11:36 05/13/18 11:36 PT 25.9 SECONDS (9.7-12.2) H 05/13/18 11:36 INR 2.4 05/13/18 11:36 - Constitutional Appears: Well, Non-toxic, No Acute Distress - Extremities Exam Additional comments: Lower extremity focused exam: Vasc: Non-palpable pedal pulses due to edema B/L, TG warm to warm, CFT < 3 sec to all digits, +1 pitting edema to bilateral lower extremities distal to tibial tuberosity Derm: Localized mild non-streaking, blanchable periwound erythema to mid-calf level B/L. Left: Multiple continuous circumferential red open ulcerations extending from tibial tuberosity to medial malleolus noted to the mid leg, with posterior leg extension to inferior popliteal crease. Minor active sanguinous drainage, wound base is 100% granular. No shital-wound macerations to posterior leg wound margins . No purulence noted, moderate malodor noted. Right: Open superficial ulceration noted to the mikhail-medial aspect of leg at mid-calf level approximately 4cm x 2cm. No active sero-sanguinous drainage, wound base is 100% granular with no shital-wound macerations. Wound margin beginning to undergo early stage re-epthelialization. No purulence noted, moderate malodor noted. L heel exhibits. Neuro: protective sensation mildly diminished ORTHO: moderate pain on palpation of posterior and medial L leg. Minimal tenderness to palpation of R leg - Neurological Exam Neurological Exam: Alert, Awake, Oriented x3 - Psychiatric Exam Psychiatric exam: Normal Affect, Normal Mood Assessment and Plan - Assessment and Plan (Free Text) Assessment: 57 year old male with bilateral chronic, recurrent wounds to lower extremities Plan: Patient seen and evaluated with attending Dr. Laguna Chart, labs, vitals; afebrile, absent leukocytosis Bilateral leg wound cx results -MRSA & Proteus mirabillis Continue medical management per medical team Intervention: Continue local wound care every other day Saline cleanse, Bactroban, Telfa, ABD, DSD, JOSE B/L to level of tibial tuberosity Continue IV abx per ID recs Podiatry will continue to follow
--- NOTE | 2018-05-13 22:50 | CP.PCM.PN ---
Subjective - Date & Time of Evaluation Date of Evaluation: 05/13/18 Time of Evaluation: 19:35 - Subjective Subjective: Pt seen and examined at bedside Objective - Vital Signs/Intake and Output Vital Signs (last 24 hours): Temp Pulse Resp BP Pulse Ox 98 F 62 20 118/70 96 05/13/18 16:00 05/13/18 16:00 05/13/18 16:00 05/13/18 17:35 05/13/18 16:00 Intake and Output: 05/13/18 05/14/18 18:59 06:59 Intake Total 550 Output Total 3300 Balance -2750 - Medications Medications: Current Medications Bacitracin (Bacitracin) 0 gm TOP DAILY [facility] Last Admin: 05/13/18 12:10 Dose: 1 applic Docusate Sodium (Colace) 100 mg PO DAILY [facility] Last Admin: 05/13/18 09:27 Dose: 100 mg Furosemide (Lasix) 80 mg PO BID [facility] Last Admin: 05/13/18 17:35 Dose: 80 mg Gabapentin (Neurontin) 300 mg PO TID [facility] Last Admin: 05/13/18 17:31 Dose: 300 mg Hydralazine HCl (Apresoline) 25 mg PO BID [facility] Last Admin: 05/13/18 17:32 Dose: 25 mg Cefepime HCl (Maxipime Iv 1 Gm Premix) 1 gm in 50 mls @ 100 mls/hr IVPB Q12H [facility] PRN Reason: Protocol Last Admin: 05/13/18 12:43 Dose: 100 mls/hr Insulin Aspart (Novolog) 0 unit SC ACHS [facility] PRN Reason: Protocol Last Admin: 05/13/18 22:39 Dose: Not Given Levothyroxine Sodium (Synthroid) 75 mcg PO DAILY@0630 [facility] Last Admin: 05/13/18 06:26 Dose: 75 mcg Metformin HCl (Glucophage Xr) 1,000 mg PO BID [facility] Last Admin: 05/13/18 17:32 Dose: 1,000 mg Nystatin (Nystop Topical Powder) 0 gm TOP BID [facility] Last Admin: 05/13/18 17:37 Dose: 1 applic Oxycodone HCl (Oxycontin Extended Release Tab) 80 mg PO Q6 [facility] Last Admin: 05/13/18 17:33 Dose: 80 mg Oxycodone/Acetaminophen (Percocet 5/325 Mg Tab) 2 tab PO Q4H PRN PRN Reason: Pain, moderate (4-7) Stop: 05/14/18 22:11 Last Admin: 05/13/18 22:44 Dose: 2 tab - Labs Labs: 05/13/18 11:36 05/13/18 11:36 PT 25.9 SECONDS (9.7-12.2) H 05/13/18 11:36 INR 2.4 05/13/18 11:36 Assessment and Plan (1) Cellulitis Status: Acute (2) Chronic skin ulcer of lower leg Status: Acute (3) Diabetes Status: Acute (4) ANTONIA (generalized anxiety disorder) Status: Acute (5) HTN (hypertension) Status: Acute (6) Morbid obesity Status: Acute (7) Asthma Status: Chronic (8) Hypothyroidism Status: Chronic
[2018-05-14] MEDS: Cefepime IV 1 gm in Dextrose 1 GM/50 ML BAG IVPB SCH ×2 (00:04→12:44)
[2018-05-14] MEDS: Oxycodone/Acetaminophen 5/325 mg Tab PO PRN ×5 (03:01→20:05)
[2018-05-14] MEDS: oxyCODONE 80 mg ER Tab (oxyCONTIN) PO SCH ×3 (05:58→17:44)
[2018-05-14] MEDS: Levothyroxine 75 MCG TAB PO SCH (05:59)
[2018-05-14 07:14] LABS: INR 2.3; PROTHROMBIN TIME 25.4 SECONDS (9.7-12.2)
[2018-05-14] MEDS: (Novolog) Insulin Aspart, Recombinant 100 u/ml 10 ml vial SC SCH ×4 (07:35→21:36)
[2018-05-14] MEDS: Nystatin 100,000 Units/gm Topical Pow(15 gm) TOP SCH ×2 (09:40→18:55)
[2018-05-14] MEDS: Bacitracin Ointment 30 GM TUBE TOP SCH (09:41)
--- NOTE | 2018-05-14 15:52 | CP.PCM.PN ---
Subjective - Date & Time of Evaluation Date of Evaluation: 05/14/18 Time of Evaluation: 18:00 - Subjective Subjective: Pt seen and examined,afebrile, no shortness of breath, on antibiotics, no distress Objective - Vital Signs/Intake and Output Vital Signs (last 24 hours): Temp Pulse Resp BP Pulse Ox 98.5 F 64 20 110/72 96 05/14/18 08:00 05/14/18 08:00 05/14/18 08:00 05/14/18 09:37 05/14/18 08:00 Intake and Output: 05/14/18 05/14/18 06:59 18:59 Intake Total 410 850 Output Total 1200 2000 Balance -790 -1150 - Medications Medications: Current Medications Bacitracin (Bacitracin) 0 gm TOP DAILY [facility] Last Admin: 05/14/18 09:41 Dose: 1 applic Docusate Sodium (Colace) 100 mg PO DAILY [facility] Last Admin: 05/14/18 09:37 Dose: 100 mg Furosemide (Lasix) 80 mg PO BID [facility] Last Admin: 05/14/18 09:37 Dose: 80 mg Gabapentin (Neurontin) 300 mg PO TID [facility] Last Admin: 05/14/18 13:25 Dose: 300 mg Hydralazine HCl (Apresoline) 25 mg PO BID [facility] Last Admin: 05/14/18 09:37 Dose: 25 mg Cefepime HCl (Maxipime Iv 1 Gm Premix) 1 gm in 50 mls @ 100 mls/hr IVPB Q12H [facility] PRN Reason: Protocol Last Admin: 05/14/18 12:44 Dose: 100 mls/hr Insulin Aspart (Novolog) 0 unit SC ACHS [facility] PRN Reason: Protocol Last Admin: 05/14/18 11:44 Dose: Not Given Levothyroxine Sodium (Synthroid) 75 mcg PO DAILY@0630 [facility] Last Admin: 05/14/18 05:59 Dose: 75 mcg Metformin HCl (Glucophage Xr) 1,000 mg PO BID [facility] Last Admin: 05/14/18 09:37 Dose: 1,000 mg Nystatin (Nystop Topical Powder) 0 gm TOP BID [facility] Last Admin: 05/14/18 09:40 Dose: 1 applic Oxycodone HCl (Oxycontin Extended Release Tab) 80 mg PO Q6 [facility] Last Admin: 05/14/18 12:09 Dose: 80 mg Oxycodone/Acetaminophen (Percocet 5/325 Mg Tab) 2 tab PO Q4H PRN PRN Reason: Pain, moderate (4-7) Stop: 05/14/18 22:11 Last Admin: 05/14/18 15:12 Dose: 2 tab Warfarin Sodium (Coumadin) 7.5 mg PO 1800 [facility] Stop: 05/14/18 18:01 - Labs Labs: 05/13/18 11:36 05/13/18 11:36 PT 25.4 SECONDS (9.7-12.2) H 05/14/18 07:03 INR 2.3 05/14/18 07:03 - Constitutional Appears: No Acute Distress - Head Exam Head Exam: ATRAUMATIC, NORMAL INSPECTION, NORMOCEPHALIC - Eye Exam Eye Exam: EOMI, Normal appearance, PERRL Pupil Exam: NORMAL ACCOMODATION, PERRL - Respiratory Exam Respiratory Exam: Decreased Breath Sounds, Rales - Cardiovascular Exam Cardiovascular Exam: REGULAR RHYTHM, +S1, +S2. absent: Murmur - GI/Abdominal Exam GI & Abdominal Exam: Soft, Normal Bowel Sounds - Rectal Exam Rectal Exam: Deferred Assessment and Plan (1) Cellulitis Status: Acute (2) Chronic skin ulcer of lower leg Status: Acute (3) Diabetes Status: Acute (4) ANTONIA (generalized anxiety disorder) Status: Acute (5) HTN (hypertension) Status: Acute (6) Morbid obesity Status: Acute (7) Asthma Status: Chronic (8) Hypothyroidism Status: Chronic
--- NOTE | 2018-05-14 18:16 | CP.PCM.PN ---
Subjective - Date & Time of Evaluation Date of Evaluation: 05/14/18 Time of Evaluation: 08:00 - Subjective Subjective: iv rx in progress tolerating well Objective - Vital Signs/Intake and Output Vital Signs (last 24 hours): Temp Pulse Resp BP Pulse Ox 98.5 F 64 20 130/78 96 05/14/18 08:00 05/14/18 08:00 05/14/18 08:00 05/14/18 17:37 05/14/18 08:00 Intake and Output: 05/14/18 05/14/18 06:59 18:59 Intake Total 410 850 Output Total 1200 2000 Balance -790 -1150 - Medications Medications: Current Medications Bacitracin (Bacitracin) 0 gm TOP DAILY [facility] Last Admin: 05/14/18 09:41 Dose: 1 applic Docusate Sodium (Colace) 100 mg PO DAILY [facility] Last Admin: 05/14/18 09:37 Dose: 100 mg Furosemide (Lasix) 80 mg PO BID [facility] Last Admin: 05/14/18 17:37 Dose: 80 mg Gabapentin (Neurontin) 300 mg PO TID [facility] Last Admin: 05/14/18 17:36 Dose: 300 mg Hydralazine HCl (Apresoline) 25 mg PO BID [facility] Last Admin: 05/14/18 17:38 Dose: 25 mg Cefepime HCl (Maxipime Iv 1 Gm Premix) 1 gm in 50 mls @ 100 mls/hr IVPB Q12H [facility] PRN Reason: Protocol Last Admin: 05/14/18 12:44 Dose: 100 mls/hr Insulin Aspart (Novolog) 0 unit SC ACHS [facility] PRN Reason: Protocol Last Admin: 05/14/18 17:10 Dose: 1 unit Levothyroxine Sodium (Synthroid) 75 mcg PO DAILY@0630 [facility] Last Admin: 05/14/18 05:59 Dose: 75 mcg Metformin HCl (Glucophage Xr) 1,000 mg PO BID [facility] Last Admin: 05/14/18 17:38 Dose: 1,000 mg Nystatin (Nystop Topical Powder) 0 gm TOP BID [facility] Last Admin: 05/14/18 09:40 Dose: 1 applic Oxycodone HCl (Oxycontin Extended Release Tab) 80 mg PO Q6 [facility] Last Admin: 05/14/18 17:44 Dose: 80 mg Oxycodone/Acetaminophen (Percocet 5/325 Mg Tab) 2 tab PO Q4H PRN PRN Reason: Pain, moderate (4-7) Stop: 05/14/18 22:11 Last Admin: 05/14/18 15:12 Dose: 2 tab - Labs Labs: 05/13/18 11:36 05/13/18 11:36 PT 25.4 SECONDS (9.7-12.2) H 05/14/18 07:03 INR 2.3 05/14/18 07:03 - Constitutional Appears: Non-toxic, Chronically Ill - Head Exam Head Exam: NORMOCEPHALIC - Eye Exam Eye Exam: PERRL - ENT Exam ENT Exam: Mucous Membranes Dry - Neck Exam Neck Exam: absent: Lymphadenopathy - Respiratory Exam Respiratory Exam: Decreased Breath Sounds - Cardiovascular Exam Cardiovascular Exam: REGULAR RHYTHM - GI/Abdominal Exam GI & Abdominal Exam: Distended - Rectal Exam Rectal Exam: Deferred - Exam Exam: NORMAL INSPECTION Assessment and Plan (1) Cellulitis Status: Acute (2) Chronic skin ulcer of lower leg Status: Acute (3) Infected stasis ulcer of left lower extremity Status: Acute (4) Ambulatory dysfunction Status: Acute (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
[2018-05-14] MEDS: Linezolid 600 mg in D5W 300 ml 600 MG/300 ML BAG IVPB SCH (21:37)
[2018-05-15] MEDS: oxyCODONE 80 mg ER Tab (oxyCONTIN) PO SCH ×5 (00:03→23:35)
[2018-05-15] MEDS: Cefepime IV 1 gm in Dextrose 1 GM/50 ML BAG IVPB SCH ×3 (00:05→15:17)
[2018-05-15] MEDS: Oxycodone/Acetaminophen 5/325 mg Tab PO PRN ×5 (01:20→17:48)
[2018-05-15] MEDS: Levothyroxine 75 MCG TAB PO SCH (06:20)
[2018-05-15] MEDS: (Novolog) Insulin Aspart, Recombinant 100 u/ml 10 ml vial SC SCH ×4 (08:13→21:56)
[2018-05-15 09:16] LABS: BASO # 0.1 K/uL (0.0-0.2); BASO % 1.2 % (0.0-2.0); EOS # 0.3 K/uL (0.0-0.7); EOS % 4.4 % (0.0-4.0); LYMPH # 1.7 K/uL (1.0-4.3); LYMPH % 26.6 % (20.0-40.0); MEAN CELL VOLUME 79.9 fL (80.0-94.0); MEAN CORPUSCULAR HEMOGLOBIN 27.2 pg (27.0-31.0); MEAN CORPUSCULAR HGB CONC 34.1 g/dL (33.0-37.0); MEAN PLATELET VOLUME 10.4 fL (7.2-11.7); MONO # 0.6 K/uL (0.0-0.8); NEUT # 3.7 K/uL (1.8-7.0); NEUT % 58.8 % (50.0-75.0); NRBC % 0.1 % (0.0-2.0); RBC 4.4 Mil/uL (4.40-5.90); RED CELL DISTRIBUTION WIDTH 16.4 % (11.5-14.5); WHITE BLOOD COUNT 6.2 K/uL (4.8-10.8)
[2018-05-15 09:17] LABS: INR 2.4; PROTHROMBIN TIME 26.4 SECONDS (9.7-12.2)
[2018-05-15] MEDS: Linezolid 600 mg in D5W 300 ml 600 MG/300 ML BAG IVPB SCH ×2 (09:19→21:41)
[2018-05-15 09:31] LABS: ALB/GLOB RATIO 1.2 (1.0-2.1); ALBUMIN 4.4 g/dL (3.5-5.0); ALT/SGPT 21 U/L (21-72); AST/SGOT 29 U/L (17-59); BLOOD UREA NITROGEN 41 mg/dL (9-20); CALCIUM 9.3 mg/dl (8.6-10.4); GFR AFRICAN-AMERICAN > 60; GFR NON-AFRICAN AMERICAN 57
--- NOTE | 2018-05-15 12:21 | CP.PCM.PN ---
Subjective - Date & Time of Evaluation Date of Evaluation: 05/15/18 Time of Evaluation: 12:20 - Subjective Subjective: Podiatry Progress Note- Dr. Laguna 57 year old male seen at bedside with Dr. Laguna this morning regarding chronic recurrent bilateral leg ulcers. Pt resting comfortably in bed at time of visit. Patient states that he well controlled pain to the rear of his left lower extremity. Patient denies any other new pedal complaints at this time. Denies F /C/N/V/CP/SOB Objective - Vital Signs/Intake and Output Vital Signs (last 24 hours): Temp Pulse Resp BP Pulse Ox 98.5 F 77 20 117/68 98 05/15/18 09:06 05/15/18 09:06 05/15/18 09:06 05/15/18 09:09 05/15/18 09:06 Intake and Output: 05/15/18 05/15/18 06:59 18:59 Intake Total 1530 Output Total 1500 Balance 30 - Medications Medications: Current Medications Bacitracin (Bacitracin) 0 gm TOP DAILY [facility] Last Admin: 05/14/18 09:41 Dose: 1 applic Docusate Sodium (Colace) 100 mg PO DAILY [facility] Last Admin: 05/15/18 09:09 Dose: 100 mg Furosemide (Lasix) 80 mg PO BID [facility] Last Admin: 05/15/18 09:09 Dose: 80 mg Gabapentin (Neurontin) 300 mg PO TID [facility] Last Admin: 05/15/18 09:09 Dose: 300 mg Hydralazine HCl (Apresoline) 25 mg PO BID [facility] Last Admin: 05/15/18 09:09 Dose: 25 mg Cefepime HCl (Maxipime Iv 1 Gm Premix) 1 gm in 50 mls @ 100 mls/hr IVPB Q12H [facility] PRN Reason: Protocol Last Admin: 05/15/18 00:05 Dose: 100 mls/hr Linezolid (Zyvox 600mg/300ml D5w) 600 mg in 300 mls @ 200 mls/hr IVPB Q12 [facility] PRN Reason: Protocol Last Admin: 05/15/18 09:19 Dose: 200 mls/hr Insulin Aspart (Novolog) 0 unit SC ACHS [facility] PRN Reason: Protocol Last Admin: 05/15/18 08:13 Dose: Not Given Levothyroxine Sodium (Synthroid) 75 mcg PO DAILY@0630 [facility] Last Admin: 05/15/18 06:20 Dose: 75 mcg Metformin HCl (Glucophage Xr) 1,000 mg PO BID [facility] Last Admin: 05/15/18 09:17 Dose: 1,000 mg Nystatin (Nystop Topical Powder) 0 gm TOP BID [facility] Last Admin: 05/14/18 18:55 Dose: 1 applic Oxycodone HCl (Oxycontin Extended Release Tab) 80 mg PO Q6 [facility] Last Admin: 05/15/18 06:20 Dose: 80 mg Oxycodone/Acetaminophen (Percocet 5/325 Mg Tab) 2 tab PO Q4H PRN PRN Reason: Pain, moderate (4-7) Stop: 05/18/18 00:09 Last Admin: 05/15/18 09:09 Dose: 2 tab - Labs Labs: 05/15/18 08:58 05/15/18 08:58 PT 26.4 SECONDS (9.7-12.2) H 05/15/18 08:58 INR 2.4 05/15/18 08:58 - Constitutional Appears: Well, Non-toxic, No Acute Distress - Extremities Exam Additional comments: Lower extremity focused exam: Vasc: Non-palpable pedal pulses due to edema B/L, TG warm to warm, CFT < 3 sec to all digits, +1 pitting edema to bilateral lower extremities distal to tibial tuberosity Derm: Localized mild non-streaking, blanchable periwound erythema to mid-calf level B/L. Left: Multiple continuous circumferential red open ulcerations extending from tibial tuberosity to medial malleolus noted to the mid leg, with posterior leg extension to inferior popliteal crease. Minor active sanguinous drainage, wound base is 100% granular. No shital-wound macerations to posterior leg wound margins . No purulence noted, moderate malodor noted. Right: Open superficial ulceration noted to the mikhail-medial aspect of leg at mid-calf level approximately 4cm x 2cm. No active sero-sanguinous drainage, wound base is 100% granular with no shital-wound macerations. Wound margin beginning to undergo early stage re-epthelialization. No purulence noted, moderate malodor noted. L heel exhibits. Neuro: protective sensation mildly diminished ORTHO: moderate pain on palpation of posterior and medial L leg. Minimal tenderness to palpation of R leg - Neurological Exam Neurological Exam: Alert, Awake, Oriented x3 - Psychiatric Exam Psychiatric exam: Normal Affect, Normal Mood Assessment and Plan - Assessment and Plan (Free Text) Assessment: 57 year old male with bilateral chronic, recurrent wounds to lower extremities Plan: Patient seen and evaluated with attending Dr. Laguna Chart, labs, vitals; afebrile, absent leukocytosis Bilateral leg wound cx results -MRSA & Proteus mirabillis Continue medical management per medical team Intervention: Continue local wound care every other day Saline cleanse, Bactroban, Telfa, ABD, DSD, JOSE B/L to level of tibial tuberosity Continue IV abx per ID recs Podiatry will continue to follow
[2018-05-15] MEDS: Nystatin 100,000 Units/gm Topical Pow(15 gm) TOP SCH ×2 (12:24→17:49)
[2018-05-15] MEDS: Bacitracin Ointment 30 GM TUBE TOP SCH (12:25)
--- NOTE | 2018-05-16 00:08 | CP.PCM.PN ---
Subjective - Date & Time of Evaluation Date of Evaluation: 05/15/18 Time of Evaluation: 19:00 - Subjective Subjective: Patient states that he well controlled pain to the rear of his left lower extremity. Patient SEEN AND EXAMINED AT BEDSIDE Objective - Vital Signs/Intake and Output Vital Signs (last 24 hours): Temp Pulse Resp BP Pulse Ox 98.4 F 81 20 117/60 98 05/15/18 15:00 05/15/18 15:00 05/15/18 15:00 05/15/18 17:50 05/15/18 15:00 - Medications Medications: Current Medications Bacitracin (Bacitracin) 0 gm TOP DAILY [facility] Last Admin: 05/15/18 12:25 Dose: 1 applic Docusate Sodium (Colace) 100 mg PO DAILY [facility] Last Admin: 05/15/18 09:09 Dose: 100 mg Furosemide (Lasix) 80 mg PO BID [facility] Last Admin: 05/15/18 17:50 Dose: 80 mg Gabapentin (Neurontin) 300 mg PO TID [facility] Last Admin: 05/15/18 17:50 Dose: 300 mg Hydralazine HCl (Apresoline) 25 mg PO BID [facility] Last Admin: 05/15/18 17:44 Dose: 25 mg Cefepime HCl (Maxipime Iv 1 Gm Premix) 1 gm in 50 mls @ 100 mls/hr IVPB Q12H [facility] PRN Reason: Protocol Last Admin: 05/15/18 15:17 Dose: 100 mls/hr Linezolid (Zyvox 600mg/300ml D5w) 600 mg in 300 mls @ 200 mls/hr IVPB Q12 [facility] PRN Reason: Protocol Last Admin: 05/15/18 21:41 Dose: 200 mls/hr Insulin Aspart (Novolog) 0 unit SC ACHS [facility] PRN Reason: Protocol Last Admin: 05/15/18 21:56 Dose: Not Given Levothyroxine Sodium (Synthroid) 75 mcg PO DAILY@0630 [facility] Last Admin: 05/15/18 06:20 Dose: 75 mcg Metformin HCl (Glucophage Xr) 1,000 mg PO BID [facility] Last Admin: 05/15/18 17:51 Dose: 1,000 mg Nystatin (Nystop Topical Powder) 0 gm TOP BID [facility] Last Admin: 05/15/18 17:49 Dose: 1 applic Oxycodone HCl (Oxycontin Extended Release Tab) 80 mg PO Q6 [facility] Last Admin: 05/15/18 23:35 Dose: 80 mg Oxycodone/Acetaminophen (Percocet 5/325 Mg Tab) 2 tab PO Q4H PRN PRN Reason: Pain, moderate (4-7) Stop: 05/18/18 00:09 Last Admin: 05/15/18 17:48 Dose: 2 tab - Labs Labs: 05/15/18 08:58 05/15/18 08:58 PT 26.4 SECONDS (9.7-12.2) H 05/15/18 08:58 INR 2.4 05/15/18 08:58 Assessment and Plan (1) Cellulitis Status: Acute (2) Chronic skin ulcer of lower leg Status: Acute (3) Diabetes Status: Acute (4) ANTONIA (generalized anxiety disorder) Status: Acute (5) HTN (hypertension) Status: Acute (6) Morbid obesity Status: Acute (7) Asthma Status: Chronic (8) Hypothyroidism Status: Chronic
[2018-05-16] MEDS: Cefepime IV 1 gm in Dextrose 1 GM/50 ML BAG IVPB SCH ×2 (00:41→12:02)
[2018-05-16] MEDS: Oxycodone/Acetaminophen 5/325 mg Tab PO PRN ×4 (05:36→20:51)
[2018-05-16] MEDS: Levothyroxine 75 MCG TAB PO SCH (06:29)
[2018-05-16] MEDS: oxyCODONE 80 mg ER Tab (oxyCONTIN) PO SCH ×3 (06:30→17:37)
[2018-05-16] MEDS: (Novolog) Insulin Aspart, Recombinant 100 u/ml 10 ml vial SC SCH ×4 (07:35→21:58)
[2018-05-16 07:50] LABS: BASO # 0.1 K/uL (0.0-0.2); BASO % 1.3 % (0.0-2.0); EOS # 0.3 K/uL (0.0-0.7); EOS % 3.7 % (0.0-4.0); HEMOGLOBIN 11.7 g/dL (12.0-18.0); LYMPH # 1.9 K/uL (1.0-4.3); MEAN CELL VOLUME 80.8 fL (80.0-94.0); MEAN CORPUSCULAR HEMOGLOBIN 27.2 pg (27.0-31.0); MEAN CORPUSCULAR HGB CONC 33.7 g/dL (33.0-37.0); MEAN PLATELET VOLUME 10.4 fL (7.2-11.7); MONO # 0.7 K/uL (0.0-0.8); MONO % 8.9 % (0.0-10.0); NEUT # 4.7 K/uL (1.8-7.0); NEUT % 61.1 % (50.0-75.0); NRBC % 0.1 % (0.0-2.0); RBC 4.28 Mil/uL (4.40-5.90); RED CELL DISTRIBUTION WIDTH 16.7 % (11.5-14.5); WHITE BLOOD COUNT 7.6 K/uL (4.8-10.8)
[2018-05-16 07:51] LABS: INR 2.6; PROTHROMBIN TIME 28.1 SECONDS (9.7-12.2)
[2018-05-16 08:12] LABS: ALB/GLOB RATIO 1.1 (1.0-2.1); ALBUMIN 4.4 g/dL (3.5-5.0); CALCIUM 9.1 mg/dl (8.6-10.4)
[2018-05-16] MEDS: Nystatin 100,000 Units/gm Topical Pow(15 gm) TOP SCH ×2 (09:15→17:34)
[2018-05-16] MEDS: Bacitracin Ointment 30 GM TUBE TOP SCH (09:17)
[2018-05-16] MEDS: Linezolid 600 mg in D5W 300 ml 600 MG/300 ML BAG IVPB SCH ×2 (09:18→21:59)
--- NOTE | 2018-05-16 14:12 | CP.PCM.PN ---
Subjective - Date & Time of Evaluation Date of Evaluation: 05/16/18 Time of Evaluation: 14:09 - Subjective Subjective: Podiatry Progress Note- Dr. Laguna 57 year old male seen at bedside this morning regarding chronic recurrent bilateral leg ulcers. Pt resting comfortably in bed at time of visit. Patient states that he well controlled pain to the rear of his left lower extremity. Denies of any acute overnight events. Dressing to B/L LE is clean, dry and intact. Patient denies any other new pedal complaints at this time. Denies F/C/N /V/CP/SOB Objective - Vital Signs/Intake and Output Vital Signs (last 24 hours): Temp Pulse Resp BP Pulse Ox 98.6 F 85 20 121/73 97 05/16/18 08:06 05/16/18 08:06 05/16/18 08:06 05/16/18 09:15 05/16/18 08:06 Intake and Output: 05/16/18 05/16/18 06:59 18:59 Intake Total 650 Output Total 800 Balance -150 - Medications Medications: Current Medications Bacitracin (Bacitracin) 0 gm TOP DAILY [facility] Last Admin: 05/16/18 09:17 Dose: Not Given Docusate Sodium (Colace) 100 mg PO DAILY [facility] Last Admin: 05/16/18 09:16 Dose: 100 mg Furosemide (Lasix) 80 mg PO BID [facility] Last Admin: 05/16/18 09:15 Dose: 80 mg Gabapentin (Neurontin) 300 mg PO TID [facility] Last Admin: 05/16/18 13:57 Dose: 300 mg Hydralazine HCl (Apresoline) 25 mg PO BID [facility] Last Admin: 05/16/18 09:16 Dose: 25 mg Cefepime HCl (Maxipime Iv 1 Gm Premix) 1 gm in 50 mls @ 100 mls/hr IVPB Q12H [facility] PRN Reason: Protocol Last Admin: 05/16/18 12:02 Dose: 100 mls/hr Linezolid (Zyvox 600mg/300ml D5w) 600 mg in 300 mls @ 200 mls/hr IVPB Q12 [facility] PRN Reason: Protocol Last Admin: 05/16/18 09:18 Dose: 200 mls/hr Insulin Aspart (Novolog) 0 unit SC ACHS [facility] PRN Reason: Protocol Last Admin: 05/16/18 11:56 Dose: 1 unit Levothyroxine Sodium (Synthroid) 75 mcg PO DAILY@0630 [facility] Last Admin: 05/16/18 06:29 Dose: 75 mcg Metformin HCl (Glucophage Xr) 1,000 mg PO BID [facility] Last Admin: 05/16/18 09:16 Dose: 1,000 mg Nystatin (Nystop Topical Powder) 0 gm TOP BID [facility] Last Admin: 05/16/18 09:15 Dose: 1 applic Oxycodone HCl (Oxycontin Extended Release Tab) 80 mg PO Q6 [facility] Last Admin: 05/16/18 12:02 Dose: 80 mg Oxycodone/Acetaminophen (Percocet 5/325 Mg Tab) 2 tab PO Q4H PRN PRN Reason: Pain, moderate (4-7) Stop: 05/18/18 00:09 Last Admin: 05/16/18 10:25 Dose: 2 tab - Labs Labs: 05/16/18 07:39 05/16/18 07:39 PT 28.1 SECONDS (9.7-12.2) H 05/16/18 07:39 INR 2.6 05/16/18 07:39 - Constitutional Appears: Well, Non-toxic, No Acute Distress - Extremities Exam Additional comments: Dressing is clean, dry and intact. No strike through noted on the dressing. - Neurological Exam Neurological Exam: Alert, Awake, Oriented x3 - Psychiatric Exam Psychiatric exam: Normal Affect, Normal Mood Assessment and Plan - Assessment and Plan (Free Text) Assessment: 57 year old male with bilateral chronic, recurrent wounds to lower extremities Plan: Patient seen and evaluated with attending Dr. Laguna Chart, labs, vitals; afebrile, absent leukocytosis Bilateral leg wound cx results -MRSA & Proteus mirabillis Continue medical management per medical team Intervention: Continue local wound care every other day - Saline cleanse, Bactroban, Telfa, ABD, DSD, JOSE B/L to level of tibial tuberosity Continue IV abx per ID recs Podiatry will continue to follow
--- NOTE | 2018-05-16 14:40 | CP.PCM.PN ---
Subjective - Date & Time of Evaluation Date of Evaluation: 05/16/18 Time of Evaluation: 06:00 - Subjective Subjective: developed IAM Vanco d/c'd on Zyvox/merrem Objective - Vital Signs/Intake and Output Vital Signs (last 24 hours): Temp Pulse Resp BP Pulse Ox 98.6 F 85 20 121/73 97 05/16/18 08:06 05/16/18 08:06 05/16/18 08:06 05/16/18 09:15 05/16/18 08:06 Intake and Output: 05/16/18 05/16/18 06:59 18:59 Intake Total 650 Output Total 800 Balance -150 - Medications Medications: Current Medications Bacitracin (Bacitracin) 0 gm TOP DAILY [facility] Last Admin: 05/16/18 09:17 Dose: Not Given Docusate Sodium (Colace) 100 mg PO DAILY [facility] Last Admin: 05/16/18 09:16 Dose: 100 mg Furosemide (Lasix) 80 mg PO BID [facility] Last Admin: 05/16/18 09:15 Dose: 80 mg Gabapentin (Neurontin) 300 mg PO TID [facility] Last Admin: 05/16/18 13:57 Dose: 300 mg Hydralazine HCl (Apresoline) 25 mg PO BID [facility] Last Admin: 05/16/18 09:16 Dose: 25 mg Cefepime HCl (Maxipime Iv 1 Gm Premix) 1 gm in 50 mls @ 100 mls/hr IVPB Q12H [facility] PRN Reason: Protocol Last Admin: 05/16/18 12:02 Dose: 100 mls/hr Linezolid (Zyvox 600mg/300ml D5w) 600 mg in 300 mls @ 200 mls/hr IVPB Q12 [facility] PRN Reason: Protocol Last Admin: 05/16/18 09:18 Dose: 200 mls/hr Insulin Aspart (Novolog) 0 unit SC ACHS [facility] PRN Reason: Protocol Last Admin: 05/16/18 11:56 Dose: 1 unit Levothyroxine Sodium (Synthroid) 75 mcg PO DAILY@0630 [facility] Last Admin: 05/16/18 06:29 Dose: 75 mcg Metformin HCl (Glucophage Xr) 1,000 mg PO BID [facility] Last Admin: 05/16/18 09:16 Dose: 1,000 mg Nystatin (Nystop Topical Powder) 0 gm TOP BID [facility] Last Admin: 05/16/18 09:15 Dose: 1 applic Oxycodone HCl (Oxycontin Extended Release Tab) 80 mg PO Q6 [facility] Last Admin: 05/16/18 12:02 Dose: 80 mg Oxycodone/Acetaminophen (Percocet 5/325 Mg Tab) 2 tab PO Q4H PRN PRN Reason: Pain, moderate (4-7) Stop: 05/18/18 00:09 Last Admin: 05/16/18 10:25 Dose: 2 tab - Labs Labs: 05/16/18 07:39 05/16/18 07:39 PT 28.1 SECONDS (9.7-12.2) H 05/16/18 07:39 INR 2.6 05/16/18 07:39 - Constitutional Appears: Well - Head Exam Head Exam: ATRAUMATIC, NORMAL INSPECTION, NORMOCEPHALIC - Eye Exam Eye Exam: EOMI, Normal appearance, PERRL Pupil Exam: NORMAL ACCOMODATION, PERRL - ENT Exam ENT Exam: Mucous Membranes Moist, Normal Exam - Neck Exam Neck Exam: Full ROM, Normal Inspection. absent: Lymphadenopathy - Respiratory Exam Respiratory Exam: Clear to Ausculation Bilateral, NORMAL BREATHING PATTERN - Cardiovascular Exam Cardiovascular Exam: REGULAR RHYTHM, +S1, +S2. absent: Murmur - GI/Abdominal Exam GI & Abdominal Exam: Soft, Normal Bowel Sounds. absent: Tenderness - Rectal Exam Rectal Exam: NORMAL INSPECTION - Exam Exam: Circumcision, NORMAL INSPECTION - Extremities Exam Extremities Exam: Full ROM. 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
--- NOTE | 2018-05-16 21:47 | PN ---
DATE: 05/16/2018 SUBJECTIVE: The patient was seen and examined at the bedside on 05/16/2018. Looking comfortable, still having rash on the extremities. Developed IAM, on Zyvox and Merrem. No fever. No chills. No nausea, vomiting, or diarrhea. No hematuria or hematemesis. No headache or dizziness. No chest pain. No palpitations. PHYSICAL EXAMINATION: VITAL SIGNS: Temperature 98.6, pulse 85, respirations 20, blood pressure 120/76, pulse oximetry 97. HEENT: Head normocephalic, atraumatic. Eyes, PERRLA. Extraocular muscles intact. Conjunctivae clear. Nose patent. NECK: Supple. No carotid bruits, JVD, or thyromegaly. CHEST: Bilaterally symmetrical. HEART: S1 and S2 positive. LUNGS: Clear to auscultation. ABDOMEN: Soft. Bowel sounds positive. No organomegaly. EXTREMITIES: Positive edema and redness. NEUROLOGICAL: The patient is awake and alert, moving all 4 extremities. No focal deficit. MEDICATIONS: Bacitracin, Colace, Lasix, Neurontin, hydralazine, Maxipime, Zyvox, NovoLog, Synthroid, Glucophage, nystatin, and oxycodone. LABORATORY DATA: White blood cells 7.6, hemoglobin 11.7, hematocrit 34.6, platelet 153. Sodium 139, potassium 4.1, BUN NOTED creatinine 2, glucose of 131. ASSESSMENT AND PLAN: Mr. Roc Marin is a 57-year-old male with anemia; renal insufficiency; hyperglycemia; hyperchloremia; cellulitis of the legs; chronic skin ulcers of the lower extremities; infectious disease ulcers of the left lower extremity; ambulatory dysfunction, he is not able to do his ADLs; anxiety disorder due to general medical condition; chronic back pain. Dr. Keenan Antonio, ID on the case. Seen by Dr. Misti Murdock. Dr. Laguna is on the case. The patient's chart reviewed. Wound culture shows MRSA and Proteus mirabilis. Continue medical treatment. Continue local wound care, saline cleaning, Bactroban, Akin bilaterally. Gastrointestinal and deep venous thrombosis prophylaxis. Repeat labs. We will follow. Monae Tidwell MD MTDD
[2018-05-17] MEDS: Cefepime IV 1 gm in Dextrose 1 GM/50 ML BAG IVPB SCH (00:17)
[2018-05-17] MEDS: oxyCODONE 80 mg ER Tab (oxyCONTIN) PO SCH ×4 (00:18→18:41)
[2018-05-17] MEDS: Oxycodone/Acetaminophen 5/325 mg Tab PO PRN ×5 (04:48→23:14)
[2018-05-17] MEDS: Levothyroxine 75 MCG TAB PO SCH (06:17)
[2018-05-17] MEDS: (Novolog) Insulin Aspart, Recombinant 100 u/ml 10 ml vial SC SCH ×4 (07:45→21:38)
[2018-05-17 07:57] LABS: BASO % 0.7 % (0.0-2.0); EOS # 0.4 K/uL (0.0-0.7); EOS % 6.5 % (0.0-4.0); HEMOGLOBIN 11.4 g/dL (12.0-18.0); LYMPH # 1.3 K/uL (1.0-4.3); LYMPH % 21.7 % (20.0-40.0); MEAN CELL VOLUME 80.9 fL (80.0-94.0); MEAN CORPUSCULAR HGB CONC 33.3 g/dL (33.0-37.0); MEAN PLATELET VOLUME 10.2 fL (7.2-11.7); MONO # 0.5 K/uL (0.0-0.8); MONO % 8.8 % (0.0-10.0); NEUT # 3.7 K/uL (1.8-7.0); NEUT % 62.3 % (50.0-75.0); RBC 4.25 Mil/uL (4.40-5.90); RED CELL DISTRIBUTION WIDTH 16.8 % (11.5-14.5); WHITE BLOOD COUNT 5.9 K/uL (4.8-10.8)
[2018-05-17 08:01] LABS: INR 2.4; PROTHROMBIN TIME 26.4 SECONDS (9.7-12.2)
[2018-05-17 08:10] LABS: ALB/GLOB RATIO 1.1 (1.0-2.1); ALBUMIN 4.2 g/dL (3.5-5.0); CALCIUM 8.8 mg/dl (8.6-10.4)
[2018-05-17] MEDS: Linezolid 600 mg in D5W 300 ml 600 MG/300 ML BAG IVPB SCH (10:24)
[2018-05-17] MEDS: Bacitracin Ointment 30 GM TUBE TOP SCH (10:49)
[2018-05-17] MEDS: Nystatin 100,000 Units/gm Topical Pow(15 gm) TOP SCH ×2 (10:52→18:29)
--- NOTE | 2018-05-17 11:09 | CP.PCM.PN ---
Subjective - Date & Time of Evaluation Date of Evaluation: 05/17/18 Time of Evaluation: 10:59 - Subjective Subjective: Podiatry Progress Note- Dr. Laguna 57 year old male patient was seen at bedside this morning regarding chronic recurrent bilateral leg ulcers. Patient was resting comfortably in bed at time of visit. NAD< AAO x3. Patient admits to pain to left leg posterior wound when changing the dressing. Denies of any acute overnight events. Dressing to B/L LE is clean, dry and intact. Patient denies any other new pedal complaints at this time. Denies N/V/F/C or SOB Objective - Vital Signs/Intake and Output Vital Signs (last 24 hours): Temp Pulse Resp BP Pulse Ox 98.3 F 86 20 132/71 96 05/17/18 08:04 05/17/18 08:04 05/17/18 08:04 05/17/18 09:40 05/17/18 08:04 Intake and Output: 05/17/18 05/17/18 06:59 18:59 Intake Total 680 Balance 680 - Medications Medications: Current Medications Bacitracin (Bacitracin) 0 gm TOP DAILY [facility] Last Admin: 05/17/18 10:49 Dose: 1 applic Docusate Sodium (Colace) 100 mg PO DAILY [facility] Last Admin: 05/17/18 09:42 Dose: 100 mg Furosemide (Lasix) 80 mg PO BID [facility] Last Admin: 05/17/18 09:40 Dose: 80 mg Gabapentin (Neurontin) 300 mg PO TID [facility] Last Admin: 05/17/18 10:54 Dose: 300 mg Hydralazine HCl (Apresoline) 25 mg PO BID [facility] Last Admin: 05/17/18 09:42 Dose: 25 mg Insulin Aspart (Novolog) 0 unit SC ACHS [facility] PRN Reason: Protocol Last Admin: 05/17/18 07:45 Dose: Not Given Levothyroxine Sodium (Synthroid) 75 mcg PO DAILY@0630 [facility] Last Admin: 05/17/18 06:17 Dose: 75 mcg Linezolid (Zyvox) 600 mg PO Q12 [facility] PRN Reason: Protocol Last Admin: 05/17/18 10:47 Dose: 600 mg Metformin HCl (Glucophage Xr) 1,000 mg PO BID [facility] Last Admin: 05/17/18 09:39 Dose: 1,000 mg Nystatin (Nystop Topical Powder) 0 gm TOP BID [facility] Last Admin: 05/17/18 10:52 Dose: 1 applic Oxycodone HCl (Oxycontin Extended Release Tab) 80 mg PO Q6 [facility] Last Admin: 05/17/18 06:17 Dose: 80 mg Oxycodone/Acetaminophen (Percocet 5/325 Mg Tab) 2 tab PO Q4H PRN PRN Reason: Pain, moderate (4-7) Stop: 05/18/18 00:09 Last Admin: 05/17/18 09:41 Dose: 2 tab Warfarin Sodium (Coumadin) 9 mg PO 1800 [facility] Stop: 05/17/18 18:01 - Labs Labs: 05/17/18 07:48 05/17/18 07:48 PT 26.4 SECONDS (9.7-12.2) H 05/17/18 07:48 INR 2.4 05/17/18 07:48 - Constitutional Appears: Well, Non-toxic, No Acute Distress - Head Exam Head Exam: ATRAUMATIC - Extremities Exam Additional comments: Lower extremity focused exam: Derm: Left: Superficial open wound noted to posterior aspect of left leg measuring 5cm x 4cm with granular base. Multiple continuous circumferential red open ulcerations extending from tibial tuberosity to medial malleolus noted to the mid leg, with posterior leg extension to inferior popliteal crease. Minor active sanguinous drainage, wound base is 100% granular. No shital-wound macerations to posterior leg wound margins . No purulence noted, moderate malodor noted. Right: Multiple open superficial ulceration noted to the mikhail-medial aspect of leg at mid-calf level each measuring approximately 2cm x 2cm. No active sero- sanguinous drainage, wound base is 100% granular with no shital-wound macerations. Wound margin beginning to undergo early stage re-epthelialization. No purulence noted, moderate malodor noted. Vasc: Non-palpable pedal pulses due to edema B/L, TG warm to warm, CFT < 3 sec to all digits, +1 pitting edema to bilateral lower extremities distal to tibial tuberosity Neuro: protective sensation mildly diminished ORTHO: moderate pain on palpation of posterior and medial L leg. Minimal tenderness to palpation of R leg - Neurological Exam Neurological Exam: Alert, Awake, Oriented x3 - Psychiatric Exam Psychiatric exam: Normal Affect, Normal Mood - Skin Skin Exam: Normal Color, Warm Assessment and Plan - Assessment and Plan (Free Text) Assessment: 57 year old male with left leg chronic nonhealing / recurrent wounds Plan: Patient seen and evaluated with attending, Dr. Laguna Afebrile, WBC 5.9 L leg WCx: (prelim) staph aureus, psedomonas aeruginosa Continue local wound care - Telfa, DSD LLE Continue abx per ID Continue pain management Podiatry will continue to follow patient while in house
[2018-05-18] MEDS: oxyCODONE 80 mg ER Tab (oxyCONTIN) PO SCH ×4 (00:06→17:00)
--- NOTE | 2018-05-18 00:07 | CP.PCM.PN ---
Subjective - Date & Time of Evaluation Date of Evaluation: 05/17/18 Time of Evaluation: 18:00 - Subjective Subjective: Pt seen and examined, will be discharged on PO Zyvoxin, pt is afabebrile, left leg ulcer improving, less erythema, discharge Objective - Vital Signs/Intake and Output Vital Signs (last 24 hours): Temp Pulse Resp BP Pulse Ox 98.1 F 76 20 130/86 97 05/17/18 15:15 05/17/18 15:15 05/17/18 15:15 05/17/18 18:22 05/17/18 15:15 Intake and Output: 05/17/18 05/18/18 18:59 06:59 Intake Total 700 700 Output Total 800 900 Balance -100 -200 - Medications Medications: Current Medications Bacitracin (Bacitracin) 0 gm TOP DAILY [facility] Last Admin: 05/17/18 10:49 Dose: 1 applic Docusate Sodium (Colace) 100 mg PO DAILY [facility] Last Admin: 05/17/18 09:42 Dose: 100 mg Furosemide (Lasix) 80 mg PO BID [facility] Last Admin: 05/17/18 18:22 Dose: 80 mg Gabapentin (Neurontin) 300 mg PO TID [facility] Last Admin: 05/17/18 18:23 Dose: 300 mg Hydralazine HCl (Apresoline) 25 mg PO BID [facility] Last Admin: 05/17/18 18:23 Dose: 25 mg Insulin Aspart (Novolog) 0 unit SC ACHS [facility] PRN Reason: Protocol Last Admin: 05/17/18 21:38 Dose: Not Given Levothyroxine Sodium (Synthroid) 75 mcg PO DAILY@0630 [facility] Last Admin: 05/17/18 06:17 Dose: 75 mcg Linezolid (Zyvox) 600 mg PO Q12 [facility] PRN Reason: Protocol Last Admin: 05/17/18 21:37 Dose: 600 mg Metformin HCl (Glucophage Xr) 1,000 mg PO BID [facility] Last Admin: 05/17/18 18:22 Dose: 1,000 mg Nystatin (Nystop Topical Powder) 0 gm TOP BID [facility] Last Admin: 05/17/18 18:29 Dose: 1 applic Oxycodone HCl (Oxycontin Extended Release Tab) 80 mg PO Q6 [facility] Last Admin: 05/17/18 18:41 Dose: 80 mg Oxycodone/Acetaminophen (Percocet 5/325 Mg Tab) 2 tab PO Q4H PRN PRN Reason: Pain, moderate (4-7) Stop: 05/18/18 00:09 Last Admin: 05/17/18 23:14 Dose: 2 tab - Labs Labs: 05/17/18 07:48 05/17/18 07:48 PT 26.4 SECONDS (9.7-12.2) H 05/17/18 07:48 INR 2.4 05/17/18 07:48 - Constitutional Appears: No Acute Distress - Head Exam Head Exam: ATRAUMATIC, NORMAL INSPECTION, NORMOCEPHALIC - Eye Exam Eye Exam: EOMI, Normal appearance, PERRL Pupil Exam: NORMAL ACCOMODATION, PERRL - Respiratory Exam Respiratory Exam: Decreased Breath Sounds, Rales, Wheezes - Cardiovascular Exam Cardiovascular Exam: REGULAR RHYTHM, +S1, +S2. absent: Murmur Assessment and Plan (1) Cellulitis Status: Acute (2) Chronic skin ulcer of lower leg Status: Acute (3) Diabetes Status: Acute (4) ANTONIA (generalized anxiety disorder) Status: Acute (5) HTN (hypertension) Status: Acute (6) Morbid obesity Status: Acute (7) Asthma Status: Chronic (8) Hypothyroidism Status: Chronic
[2018-05-18] MEDS ORDERED: Oxycodone/Acetaminophen 5/325 mg Tab PO PRN (03:18)
[2018-05-18] MEDS: Oxycodone/Acetaminophen 5/325 mg Tab PO PRN ×5 (03:31→22:41)
[2018-05-18] MEDS: Levothyroxine 75 MCG TAB PO SCH (06:11)
[2018-05-18 06:47] LABS: INR 2.1
[2018-05-18] MEDS: (Novolog) Insulin Aspart, Recombinant 100 u/ml 10 ml vial SC SCH ×4 (07:20→21:46)
[2018-05-18] MEDS ORDERED: Lidocaine/Epinephrine 1% 1:100000 10 ML IJ ONE (07:30)
--- NOTE | 2018-05-18 09:59 | CP.PCM.PN ---
Subjective - Date & Time of Evaluation Date of Evaluation: 05/18/18 Time of Evaluation: 08:47 - Subjective Subjective: Podiatry Progress Note- Dr. Laguna 57 year old male patient was seen at bedside this morning with attending Dr. Laguna regarding chronic recurrent bilateral leg ulcers. Patient was resting comfortably in bed at time of visit. NAD, AAO x3. Patient denies of any pain to bilateral lower extremities. Denies of any acute overnight events. Dressing to B /L LE is clean, dry and intact. Denies N/V/F/C or SOB Objective - Vital Signs/Intake and Output Vital Signs (last 24 hours): Temp Pulse Resp BP Pulse Ox 98.1 F 68 20 125/80 92 L 05/18/18 08:10 05/18/18 08:10 05/18/18 08:10 05/18/18 08:10 05/18/18 08:10 Intake and Output: 05/18/18 05/18/18 06:59 18:59 Intake Total 1000 Output Total 1350 Balance -350 - Medications Medications: Current Medications Bacitracin (Bacitracin) 0 gm TOP DAILY [facility] Last Admin: 05/17/18 10:49 Dose: 1 applic Docusate Sodium (Colace) 100 mg PO DAILY [facility] Last Admin: 05/17/18 09:42 Dose: 100 mg Furosemide (Lasix) 80 mg PO BID [facility] Last Admin: 05/17/18 18:22 Dose: 80 mg Gabapentin (Neurontin) 300 mg PO TID [facility] Last Admin: 05/17/18 18:23 Dose: 300 mg Hydralazine HCl (Apresoline) 25 mg PO BID [facility] Last Admin: 05/17/18 18:23 Dose: 25 mg Insulin Aspart (Novolog) 0 unit SC ACHS [facility] PRN Reason: Protocol Last Admin: 05/18/18 07:20 Dose: Not Given Levothyroxine Sodium (Synthroid) 75 mcg PO DAILY@0630 [facility] Last Admin: 05/18/18 06:11 Dose: 75 mcg Linezolid (Zyvox) 600 mg PO Q12 [facility] PRN Reason: Protocol Last Admin: 05/17/18 21:37 Dose: 600 mg Metformin HCl (Glucophage Xr) 1,000 mg PO BID [facility] Last Admin: 05/17/18 18:22 Dose: 1,000 mg Nystatin (Nystop Topical Powder) 0 gm TOP BID [facility] Last Admin: 05/17/18 18:29 Dose: 1 applic Oxycodone HCl (Oxycontin Extended Release Tab) 80 mg PO Q6 [facility] Last Admin: 05/18/18 06:07 Dose: 80 mg Oxycodone/Acetaminophen (Percocet 5/325 Mg Tab) 2 tab PO Q4H PRN PRN Reason: Pain, moderate (4-7) Stop: 05/21/18 03:22 Last Admin: 05/18/18 07:54 Dose: 2 tab - Labs Labs: 05/17/18 07:48 05/17/18 07:48 PT 23.0 SECONDS (9.7-12.2) H 05/18/18 06:34 INR 2.1 05/18/18 06:34 - Constitutional Appears: Well, Non-toxic, No Acute Distress - Head Exam Head Exam: ATRAUMATIC - Extremities Exam Additional comments: Lower extremity focused exam: Dressings to bilateral lower extremities remain clean dry and intact - Neurological Exam Neurological Exam: Alert, Awake, Oriented x3 - Psychiatric Exam Psychiatric exam: Normal Affect, Normal Mood - Skin Skin Exam: Normal Color, Warm Assessment and Plan - Assessment and Plan (Free Text) Assessment: 57 year old male with left leg chronic non-healing / recurrent wounds Plan: Patient seen and evaluated with attending, Dr. Luz Elena Vaughn leg WCx: (prelim) staph aureus, psedomonas aeruginosa Continue local wound care - Telfa, DSD LLE Continue abx per ID Continue pain management Podiatry will continue to follow patient while in house
[2018-05-18] MEDS: Bacitracin Ointment 30 GM TUBE TOP SCH (10:06)
[2018-05-18] MEDS: Nystatin 100,000 Units/gm Topical Pow(15 gm) TOP SCH ×2 (10:48→18:18)
--- NOTE | 2018-05-18 17:41 | CP.PCM.PN ---
Subjective - Date & Time of Evaluation Date of Evaluation: 05/18/18 Time of Evaluation: 17:42 - Subjective Subjective: alert and orientedx3, no sob or acute pain. Objective - Vital Signs/Intake and Output Vital Signs (last 24 hours): Temp Pulse Resp BP Pulse Ox 97.6 F 62 20 129/78 94 L 05/18/18 15:00 05/18/18 15:00 05/18/18 15:00 05/18/18 17:13 05/18/18 15:00 Intake and Output: 05/18/18 05/18/18 06:59 18:59 Intake Total 1000 700 Output Total 1350 1200 Balance -350 -500 - Medications Medications: Current Medications Bacitracin (Bacitracin) 0 gm TOP DAILY [facility] Last Admin: 05/18/18 10:06 Dose: 1 applic Docusate Sodium (Colace) 100 mg PO DAILY [facility] Last Admin: 05/18/18 10:04 Dose: 100 mg Furosemide (Lasix) 80 mg PO BID [facility] Last Admin: 05/18/18 17:13 Dose: 80 mg Gabapentin (Neurontin) 300 mg PO TID [facility] Last Admin: 05/18/18 14:04 Dose: 300 mg Hydralazine HCl (Apresoline) 25 mg PO BID [facility] Last Admin: 05/18/18 17:13 Dose: 25 mg Insulin Aspart (Novolog) 0 unit SC ACHS [facility] PRN Reason: Protocol Last Admin: 05/18/18 16:37 Dose: Not Given Levothyroxine Sodium (Synthroid) 75 mcg PO DAILY@0630 [facility] Last Admin: 05/18/18 06:11 Dose: 75 mcg Linezolid (Zyvox) 600 mg PO Q12 [facility] PRN Reason: Protocol Last Admin: 05/18/18 10:04 Dose: 600 mg Metformin HCl (Glucophage Xr) 1,000 mg PO BID [facility] Last Admin: 05/18/18 11:47 Dose: 1,000 mg Nystatin (Nystop Topical Powder) 0 gm TOP BID [facility] Last Admin: 05/18/18 10:48 Dose: 1 applic Oxycodone HCl (Oxycontin Extended Release Tab) 80 mg PO Q6 [facility] Last Admin: 05/18/18 17:00 Dose: 80 mg Oxycodone/Acetaminophen (Percocet 5/325 Mg Tab) 2 tab PO Q4H PRN PRN Reason: Pain, moderate (4-7) Stop: 05/21/18 03:22 Last Admin: 05/18/18 13:06 Dose: 2 tab Warfarin Sodium (Coumadin) 5 mg PO 1800 [facility] Stop: 05/18/18 18:01 Warfarin Sodium (Coumadin) 4 mg PO 1800 [facility] Stop: 05/18/18 18:01 - Labs Labs: 05/17/18 07:48 05/17/18 07:48 PT 23.0 SECONDS (9.7-12.2) H 05/18/18 06:34 INR 2.1 05/18/18 06:34 Assessment and Plan - Assessment and Plan (Free Text) Assessment: Patient is seen and examined. ALERT AND ORIENTEDX3, DENIES ACUTE PAIN ON THE LEGS. Discussed with DR Antonio and DR Albright, plan to discharge home on zyvox 600mg po x10 days. Advised to follow up with DR Laguna for wound care. Advised to follow up with PMD in 1 week.
[2018-05-19] MEDS: oxyCODONE 80 mg ER Tab (oxyCONTIN) PO SCH ×4 (00:09→17:10)
[2018-05-19] MEDS: Oxycodone/Acetaminophen 5/325 mg Tab PO PRN ×3 (04:17→13:23)
[2018-05-19] MEDS: Levothyroxine 75 MCG TAB PO SCH (06:28)
[2018-05-19 07:27] LABS: INR 1.7; PROTHROMBIN TIME 18.8 SECONDS (9.7-12.2)
[2018-05-19] MEDS: (Novolog) Insulin Aspart, Recombinant 100 u/ml 10 ml vial SC SCH ×3 (07:30→17:15)
--- NOTE | 2018-05-19 07:46 | CP.PCM.PN ---
Subjective - Date & Time of Evaluation Date of Evaluation: 05/18/18 Time of Evaluation: 18:40 - Subjective Subjective: Pt seen and examined by me, decreased pain, erythema, swelling of LLE Objective - Vital Signs/Intake and Output Vital Signs (last 24 hours): Temp Pulse Resp BP Pulse Ox 98.1 F 66 20 114/69 97 05/19/18 00:00 05/19/18 00:00 05/19/18 00:00 05/19/18 00:00 05/19/18 00:00 Intake and Output: 05/19/18 05/19/18 06:59 18:59 Intake Total 840 Output Total 1100 Balance -260 - Medications Medications: Current Medications Bacitracin (Bacitracin) 0 gm TOP DAILY [facility] Last Admin: 05/18/18 10:06 Dose: 1 applic Docusate Sodium (Colace) 100 mg PO DAILY [facility] Last Admin: 05/18/18 10:04 Dose: 100 mg Furosemide (Lasix) 80 mg PO BID [facility] Last Admin: 05/18/18 17:13 Dose: 80 mg Gabapentin (Neurontin) 300 mg PO TID [facility] Last Admin: 05/18/18 18:00 Dose: 300 mg Hydralazine HCl (Apresoline) 25 mg PO BID [facility] Last Admin: 05/18/18 17:13 Dose: 25 mg Insulin Aspart (Novolog) 0 unit SC ACHS [facility] PRN Reason: Protocol Last Admin: 05/18/18 21:46 Dose: Not Given Levothyroxine Sodium (Synthroid) 75 mcg PO DAILY@0630 [facility] Last Admin: 05/19/18 06:28 Dose: 75 mcg Linezolid (Zyvox) 600 mg PO Q12 [facility] PRN Reason: Protocol Last Admin: 05/18/18 22:03 Dose: 600 mg Metformin HCl (Glucophage Xr) 1,000 mg PO BID [facility] Last Admin: 05/18/18 17:37 Dose: 1,000 mg Nystatin (Nystop Topical Powder) 0 gm TOP BID [facility] Last Admin: 05/18/18 18:18 Dose: 1 applic Oxycodone HCl (Oxycontin Extended Release Tab) 80 mg PO Q6 [facility] Last Admin: 05/19/18 06:14 Dose: 80 mg Oxycodone/Acetaminophen (Percocet 5/325 Mg Tab) 2 tab PO Q4H PRN PRN Reason: Pain, moderate (4-7) Stop: 05/21/18 03:22 Last Admin: 05/19/18 04:17 Dose: 2 tab - Labs Labs: 05/17/18 07:48 05/17/18 07:48 PT 18.8 SECONDS (9.7-12.2) H 05/19/18 07:15 INR 1.7 05/19/18 07:15 Assessment and Plan (1) Cellulitis Status: Acute (2) Chronic skin ulcer of lower leg Status: Acute (3) Diabetes Status: Acute (4) ANTONIA (generalized anxiety disorder) Status: Acute (5) HTN (hypertension) Status: Acute (6) Morbid obesity Status: Acute (7) Asthma Status: Chronic (8) Hypothyroidism Status: Chronic
[2018-05-19] MEDS: Bacitracin Ointment 30 GM TUBE TOP SCH (10:03)
[2018-05-19] MEDS: Nystatin 100,000 Units/gm Topical Pow(15 gm) TOP SCH ×2 (10:03→17:14)
--- NOTE | 2018-05-19 11:20 | CP.PCM.PN ---
Subjective - Date & Time of Evaluation Date of Evaluation: 05/19/18 Time of Evaluation: 11:16 - Subjective Subjective: Podiatry progress noted for Dr. Laguna 58YO male was seen for bilateral circumferential leg ulcerations at bedside resting comfortably. Patient was not in any acute distress. AAO x3. Patient denies any pain in the leg. Patient denies any acute overnight events. Dressing to b/l leg was dry, clean and intact. Patient denies F/N/V/C/SOB. Objective - Vital Signs/Intake and Output Vital Signs (last 24 hours): Temp Pulse Resp BP Pulse Ox 98 F 71 20 122/73 95 05/19/18 08:00 05/19/18 08:00 05/19/18 08:00 05/19/18 09:59 05/19/18 08:00 Intake and Output: 05/19/18 05/19/18 06:59 18:59 Intake Total 840 Output Total 1100 Balance -260 - Medications Medications: Current Medications Bacitracin (Bacitracin) 0 gm TOP DAILY [facility] Last Admin: 05/19/18 10:03 Dose: 1 applic Docusate Sodium (Colace) 100 mg PO DAILY [facility] Last Admin: 05/19/18 09:59 Dose: 100 mg Furosemide (Lasix) 80 mg PO BID [facility] Last Admin: 05/19/18 09:59 Dose: 80 mg Gabapentin (Neurontin) 300 mg PO TID [facility] Last Admin: 05/19/18 09:59 Dose: 300 mg Hydralazine HCl (Apresoline) 25 mg PO BID [facility] Last Admin: 05/19/18 09:59 Dose: 25 mg Insulin Aspart (Novolog) 0 unit SC ACHS [facility] PRN Reason: Protocol Last Admin: 05/19/18 07:30 Dose: Not Given Levothyroxine Sodium (Synthroid) 75 mcg PO DAILY@0630 [facility] Last Admin: 05/19/18 06:28 Dose: 75 mcg Linezolid (Zyvox) 600 mg PO Q12 [facility] PRN Reason: Protocol Last Admin: 05/19/18 10:01 Dose: 600 mg Metformin HCl (Glucophage Xr) 1,000 mg PO BID [facility] Last Admin: 05/19/18 10:01 Dose: 1,000 mg Nystatin (Nystop Topical Powder) 0 gm TOP BID [facility] Last Admin: 05/19/18 10:03 Dose: 1 applic Oxycodone HCl (Oxycontin Extended Release Tab) 80 mg PO Q6 [facility] Last Admin: 05/19/18 06:14 Dose: 80 mg Oxycodone/Acetaminophen (Percocet 5/325 Mg Tab) 2 tab PO Q4H PRN PRN Reason: Pain, moderate (4-7) Stop: 05/21/18 03:22 Last Admin: 05/19/18 08:38 Dose: 2 tab - Labs Labs: 05/17/18 07:48 05/17/18 07:48 PT 18.8 SECONDS (9.7-12.2) H 05/19/18 07:15 INR 1.7 05/19/18 07:15 - Constitutional Appears: Well, Non-toxic, No Acute Distress - Head Exam Head Exam: ATRAUMATIC - Extremities Exam Additional comments: Lower extremity focused exam: Vascular: Non-palpable pedal pulses noted due to edema, CFT < 3 secs x10, TG warm to warm, mild edema noted Neuro: Protective sensation mildly diminished Derm: Left: Superficial red, venous ulcer noted on the posterior aspect of proximal 1/3rd of the left leg measuring 5cm x 4cm with 100% granular base with active serosanguineous drainage. Multiple ulcerations noted from tibial tuberosity to medial malleolus noted to the leg. Multiple round ulcers noted, no drainage noted, no malodor, no purulence, no probe to bone, moderate erythema noted shital wound b/l. No open lesions noted on the left foot. Right: Superficial red, venous ulcers noted circumferentially proximally from tibial tuberosity to the distal 1/3rd of the leg each measuring approximaly 2cm x2cm. Wound base is 100% granular, mild malodor, no purulence, no probe to bone , moderate erythema noted shital wound b/l, no signs of acute infection. No open lesions noted on the foot. Ortho: Pain on palpation to the left posterior and medial leg ulcer. No pain on palpation to the right leg ulcer. - Neurological Exam Neurological Exam: Alert, Awake, Oriented x3 - Skin Skin Exam: Normal Color Assessment and Plan - Assessment and Plan (Free Text) Assessment: 58YO male seen at bedside for bilateral circumferential, chronic, recurrent leg ulcerations, left worse than right. Plan: Patient was seen and evaluated. All patient questions answered. Labs and vitals are within normal limits; Afebrile. Plan discussed with Dr. Laguna. Patients legs dressed with telfa, ABD, and DSD; continue with local wound care. Wound Cx: Proteus Mirabilis MRSA from right and left leg. Continue antibiotic per ID. Continue pain medications. Podiatry will continue to follow while in house.
[2018-05-19 16:36] VITALS: PULSE 79; TEMP 97.4; O2SAT 97
[2018-05-19 17:11] VITALS: BP 125/72
--- NOTE | 2018-05-19 23:34 | CP.PCM.DIS ---
Provider - Provider Date of Admission: 05/05/18 15:10 Attending physician: Estrada Albright MD Time Spent in preparation of Discharge (in minutes): 45 Diagnosis - Discharge Diagnosis (1) Cellulitis Status: Acute (2) Chronic skin ulcer of lower leg Status: Acute (3) Diabetes Status: Acute (4) ANTONIA (generalized anxiety disorder) Status: Acute (5) HTN (hypertension) Status: Acute (6) Morbid obesity Status: Acute (7) Asthma Status: Chronic (8) Hypothyroidism Status: Chronic Priority: Medium Hospital Course - Lab Results Lab Results: Micro Results 05/05/18 14:32 Leg - Right Gram Stain - Final 05/05/18 14:32 Leg - Right Wound Culture - Final Proteus Mirabilis Methicillin Resistant S Aureus 05/05/18 14:32 Leg - Left Gram Stain - Final 05/05/18 14:32 Leg - Left Wound Culture - Final Proteus Mirabilis Methicillin Resistant S Aureus Most Recent Lab Values WBC 5.9 K/uL (4.8-10.8) 05/17/18 07:48 RBC 4.25 Mil/uL (4.40-5.90) L 05/17/18 07:48 Hgb 11.4 g/dL (12.0-18.0) L 05/17/18 07:48 Hct 34.3 % (35.0-51.0) L 05/17/18 07:48 MCV 80.9 fL (80.0-94.0) 05/17/18 07:48 MCH 27.0 pg (27.0-31.0) 05/17/18 07:48 MCHC 33.3 g/dL (33.0-37.0) 05/17/18 07:48 RDW 16.8 % (11.5-14.5) H 05/17/18 07:48 Plt Count 155 K/uL (130-400) 05/17/18 07:48 MPV 10.2 fL (7.2-11.7) 05/17/18 07:48 Neut % (Auto) 62.3 % (50.0-75.0) 05/17/18 07:48 Lymph % (Auto) 21.7 % (20.0-40.0) 05/17/18 07:48 [place] % (Auto) 8.8 % (0.0-10.0) 05/17/18 07:48 Eos % (Auto) 6.5 % (0.0-4.0) H 05/17/18 07:48 Baso % (Auto) 0.7 % (0.0-2.0) 05/17/18 07:48 Neut # (Auto) 3.7 K/uL (1.8-7.0) 05/17/18 07:48 Lymph # (Auto) 1.3 K/uL (1.0-4.3) 05/17/18 07:48 [place] # (Auto) 0.5 K/uL (0.0-0.8) 05/17/18 07:48 Eos # (Auto) 0.4 K/uL (0.0-0.7) 05/17/18 07:48 Baso # (Auto) 0.0 K/uL (0.0-0.2) 05/17/18 07:48 Neutrophils % (Manual) 90 % (50-75) H 05/05/18 14:32 Lymphocytes % (Manual) 6 % (20-40) L 05/05/18 14:32 Monocytes % (Manual) 2 % (0-10) 05/05/18 14:32 Eosinophils % (Manual) 2 % (0-4) 05/05/18 14:32 Platelet Estimate Normal (NORMAL) 05/05/18 14:32 Polychromasia Slight 05/05/18 14:32 Hypochromasia (manual) Slight 05/05/18 14:32 Anisocytosis (manual) Slight 05/05/18 14:32 PT 18.8 SECONDS (9.7-12.2) H 05/19/18 07:15 INR 1.7 05/19/18 07:15 Sodium 140 mmol/L (132-148) 05/17/18 07:48 Potassium 3.9 mmol/L (3.6-5.2) 05/17/18 07:48 Chloride 95 mmol/L (98-107) L 05/17/18 07:48 Carbon Dioxide 31 mmol/L (22-30) H 05/17/18 07:48 Anion Gap 18 (10-20) 05/17/18 07:48 BUN 45 mg/dL (9-20) H 05/17/18 07:48 Creatinine 1.5 mg/dL (0.8-1.5) 05/17/18 07:48 Est GFR ( Amer) 58 05/17/18 07:48 Est GFR (Non-Af Amer) 48 05/17/18 07:48 POC Glucose (mg/dL) 125 mg/dL (65-110) H 05/19/18 15:58 Random Glucose 117 mg/dL (75-110) H 05/17/18 07:48 Calcium 8.8 mg/dl (8.6-10.4) 05/17/18 07:48 Total Bilirubin 0.5 mg/dL (0.2-1.3) 05/17/18 07:48 AST 24 U/L (17-59) 05/17/18 07:48 ALT 21 U/L (21-72) 05/17/18 07:48 Alkaline Phosphatase 121 U/L (38-126) 05/17/18 07:48 Total Protein 8.0 g/dL (6.3-8.3) 05/17/18 07:48 Albumin 4.2 g/dL (3.5-5.0) 05/17/18 07:48 Globulin 3.8 gm/dL (2.2-3.9) 05/17/18 07:48 Albumin/Globulin Ratio 1.1 (1.0-2.1) 05/17/18 07:48 Vancomycin Trough < 5.0 ug/mL (5.0-10.0) L 05/15/18 08:58 - Hospital Course Hospital Course: Assessment: 58YO male seen at bedside for bilateral circumferential, chronic, recurrent leg ulcerations, left worse than right. Plan: Patient was seen and evaluated. All patient questions answered. Labs and vitals are within normal limits; Afebrile. Plan to discharge neetu, also followed up by podiatry Patients legs dressed with telfa, ABD, and DSD; continue with local wound care. Wound Cx: Proteus Mirabilis MRSA from right and left leg. Continue antibiotic per ID. Continue pain medications. \ Discharge Exam - Head Exam Head Exam: ATRAUMATIC Discharge Plan - Discharge Medications Prescriptions: Warfarin [Coumadin] 10 mg PO 1800 #30 tab Oxycodone HCl/Acetaminophen [Percocet 10-325 mg Tablet] 1 each PO Q4H PRN #90 tablet PRN Reason: Pain, Severe (8-10) Linezolid [Zyvox] 600 mg PO Q12 10 Days tab - Follow Up Plan Condition: STABLE Disposition: HOME/ ROUTINE Instructions: Treatment of Varicose Veins of the Leg, Heart Failure, Adult (DC) , Cellulitis (DC) Referrals: Estrada Albright MD [Staff Provider] -
== END 2018-05-19 18:28 | disposition home or self-care (01) | DRG 638 ==
LOC: C.ER 13:04 → C.9E 15:10 → C.3T 16:32
PROVIDERS: ADMIT Internal Medicine; ATTEND Internal Medicine
DX: E11.622 Type 2 diabetes mellitus with other skin ulcer (principal); I13.0 Hypertensive heart and chronic kidney disease with heart failure and stage 1 through stage 4 chronic kidney disease, or unspecified chronic kidney disease; L03.115 Cellulitis of right lower limb; L03.116 Cellulitis of left lower limb; L97.919 Non-pressure chronic ulcer of unspecified part of right lower leg with unspecified severity; L97.929 Non-pressure chronic ulcer of unspecified part of left lower leg with unspecified severity; E11.65 Type 2 diabetes mellitus with hyperglycemia; N17.9 Acute kidney failure, unspecified; D64.9 Anemia, unspecified; E11.22 Type 2 diabetes mellitus with diabetic chronic kidney disease; E03.9 Hypothyroidism, unspecified; E87.8 Other disorders of electrolyte and fluid balance, not elsewhere classified; F41.1 Generalized anxiety disorder; I50.9 Heart failure, unspecified; I25.10 Atherosclerotic heart disease of native coronary artery without angina pectoris; I87.2 Venous insufficiency (chronic) (peripheral); J44.9 Chronic obstructive pulmonary disease, unspecified; N18.9 Chronic kidney disease, unspecified; M79.7 Fibromyalgia; E66.01 Morbid (severe) obesity due to excess calories; G47.30 Sleep apnea, unspecified; E78.00 Pure hypercholesterolemia, unspecified; F06.4 Anxiety disorder due to known physiological condition; G89.29 Other chronic pain; K21.9 Gastro-esophageal reflux disease without esophagitis; Z96.653 Presence of artificial knee joint, bilateral; Z86.711 Personal history of pulmonary embolism; Z87.01 Personal history of pneumonia (recurrent)

== ENCOUNTER 2018-05-21 11:02 | Inpatient (IN) | payer MEDICARE ==
[2018-05-21 11:02] VITALS: BMI 54.8
[2018-05-21] MEDS ORDERED: Oxycodone/Acetaminophen 5/325 mg Tab PO STA (12:06)
[2018-05-21] MEDS ORDERED: Oxycodone/Acetaminophen 5/325 mg Tab ONE ×2 (12:13→16:10)
[2018-05-21 12:44] LABS: BASO # 0.1 K/uL (0.0-0.2); BASO % 1.1 % (0.0-2.0); EOS # 0.2 K/uL (0.0-0.7); EOS % 2.7 % (0.0-4.0); HEMOGLOBIN 11.4 g/dL (12.0-18.0); LYMPH # 1.3 K/uL (1.0-4.3); LYMPH % 18.5 % (20.0-40.0); MEAN CELL VOLUME 80.4 fL (80.0-94.0); MEAN CORPUSCULAR HEMOGLOBIN 27.2 pg (27.0-31.0); MEAN CORPUSCULAR HGB CONC 33.9 g/dL (33.0-37.0); MEAN PLATELET VOLUME 9.5 fL (7.2-11.7); MONO # 0.5 K/uL (0.0-0.8); MONO % 6.8 % (0.0-10.0); NEUT # 4.9 K/uL (1.8-7.0); NEUT % 70.9 % (50.0-75.0); NRBC % 0.1 % (0.0-2.0); RBC 4.19 Mil/uL (4.40-5.90); RED CELL DISTRIBUTION WIDTH 16.8 % (11.5-14.5); WHITE BLOOD COUNT 6.9 K/uL (4.8-10.8)
[2018-05-21 13:07] LABS: ALB/GLOB RATIO 1.1 (1.0-2.1); ALT/SGPT 19 U/L (21-72); AST/SGOT 20 U/L (17-59); BLOOD UREA NITROGEN 27 mg/dL (9-20); GFR AFRICAN-AMERICAN > 60; GFR NON-AFRICAN AMERICAN > 60
--- NOTE | 2018-05-21 15:12 | C.PDOC ---
History Of Present Illness 58-year-old male, whose PMHx includes chronic stasis ulcers, presents to the ED for evaluation of worsening wounds to his bilateral legs. Patient had a recent admission for the same complaint and was discharged two days ago. Patient notes the wound has been draining a foul-smelling discharge. Also reports his legs are weak and they "give out." Patient is unable to care for himself and presents to the ED for further evaluation. He denies fever, chest pain, n/v, shortness of breath, change in sensation, or recent trauma. Time Seen by Provider: 05/21/18 11:26 Chief Complaint (Nursing): Lower Extremity Problem/Injury History Per: Patient History/Exam Limitations: no limitations Onset/Duration Of Symptoms: Days Current Symptoms Are (Timing): Worse Additional History Per: Patient Past Medical History Reviewed: Historical Data, Nursing Documentation, Vital Signs Vital Signs: Last Vital Signs Temp 98.4 F 05/25/18 15:00 Pulse 64 05/25/18 15:00 Resp 20 05/25/18 15:00 BP 122/74 05/25/18 18:03 Pulse Ox 97 05/25/18 15:00 - Medical History PMH: Arthritis, Asthma, Back Problems, CAD, CHF, COPD, Depression, Diabetes, Deep Vein Thrombosis, Fibromyalgia, Fractures, HTN, Hypercholesterolemia, Hyperthyroidism, Hypothyroidism, Peripheral Edema (+3 pitting ble), Pneumonia, Pulmonary Embolism, Chronic Kidney Disease (required HD in 2016 briefly), Sleep Apnea, Chronic Pain Surgical History: No Surg Hx - [facility] Procedures ASSISTANCE WITH RESPIRATORY VENTILATION, >96 HRS, CPAP (09/04/16) BATHING/SHOWERING TECHNIQUES TREATMENT (07/29/17) CENTRAL VENOUS CATHETER PLACEMENT WITH GUIDANCE (07/08/15) CLOSED ENDOSCOPIC BIOPSY OF LARGE INTESTINE (03/22/14) CONTIN POS AIRWAY PRESSURE [CPAP] (02/21/07) DERMAL REGENERATIVE GRAFT (06/15/15) DRESSING TECHNIQUES TREATMENT (07/29/17) DX ULTRASOUND-HEART (05/14/06) ENDOSC POLYPECTOMY OF LG INTEST (03/22/14) ENDOSCOPIC BRONCHIAL BX (09/22/04) ESOPHAGOGASTRODUODENOSCOPY [EGD] W/CLOSED BIOPSY (03/22/14) EXCIS DEBRIDE OF WOUND, INFECT, OR BURN (06/15/15) EXCISION OF LEFT LOWER LEG SKIN, EXTERNAL APPROACH (09/15/17) EXTRACTION OF LEFT LOWER LEG SKIN, EXTERNAL APPROACH (02/16/18) FLUOROSCOPY OF SUPERIOR VENA CAVA, GUIDANCE (02/16/18) GAIT TRAINING/AMBULAT TREATMENT USING ASSIST EQUIPMENT (07/29/17) HETEROGRAFT TO SKIN (10/29/14) HOME MANAGEMENT TREATMENT (07/29/17) INJECT ANTIBIOTIC (05/29/06) INJECT ANTICOAGULANT (11/17/04) INJECT/INFUSE NEC (03/22/14) INSERTION OF INFUSION DEV INTO L AXILLA VEIN, PERC APPROACH (02/16/18) INSERTION OF INFUSION DEV INTO SUP VENA CAVA, PERC APPROACH (03/14/18) INSPECTION OF BLADDER, ENDO (06/22/16) INTRODUCE OF OTH THERAP SUBST INTO RESP TRACT, VIA OPENING (04/06/16) NEBULIZER THERAPY (09/18/14) NON-INVASIVE MECHANICAL VENTILATION (08/13/12) NONEXCIS DEBRID OF WOUND, INFECT, OR BURN (10/09/14) OCCUPATIONAL THERAPY (03/17/14) PERFORMANCE OF URINARY FILTRATION, MULTIPLE (09/04/16) PHYSICAL THERAPY NEC (03/17/14) REPLACE L LOW LEG SKIN W NONAUT SUB, FULL THICK, RESIDENTIAL SALES REPRESENTATIVE (01/17/18) TRANSFUSE NONAUT FROZEN PLASMA IN PERIPH VEIN, PERC (09/04/16) ULTRASONOGRAPHY OF LEFT UPPER EXTREMITY VEINS, GUIDANCE (02/16/18) VENOUS CATHETERIZATION NEC (04/25/15) Family History: States: Unknown Family Hx - Social History Hx Tobacco Use: No Hx Alcohol Use: No Hx Substance Use: No - Immunization History Hx Tetanus Toxoid Vaccination: No Hx Influenza Vaccination: Yes Hx Pneumococcal Vaccination: Yes (3 yrs ago) Review Of Systems Constitutional: Negative for: Fever, Chills Respiratory: Negative for: Shortness of Breath Skin: Positive for: Other (worsening leg wounds bilaterally ) Neurological: Negative for: Weakness, Numbness Physical Exam - Physical Exam Appears: Non-toxic, No Acute Distress, Other (obese) Skin: Warm, Dry Head: Atraumatic, Normacephalic Eye(s): bilateral: Normal Inspection, EOMI Nose: Normal Oral Mucosa: Moist Neck: Normal ROM, Supple Chest: Symmetrical, No Deformity, No Tenderness Cardiovascular: Rhythm Regular Respiratory: Normal Breath Sounds, No Rales, No Rhonchi, No Wheezing Extremity: Normal ROM, Pedal Edema, Other (bilateral large ulcerations. no odor noted) Neurological/Psych: Oriented x3, Normal Speech, Normal Cognition ED Course And Treatment - Laboratory Results Result Diagrams: 05/21/18 12:40 05/21/18 12:40 O2 Sat by Pulse Oximetry: 99 (on RA) Pulse Ox Interpretation: Normal Progress Note: Bloodwork ordered and reviewed. Percocet PO administered. Case dicussed with Dr. Albright, who agrees upon admission. Disposition - Disposition Disposition: HOSPITALIZED Disposition Time: 18:00 Condition: STABLE - Clinical Impression Clinical Impression: Chronic skin ulcer of lower leg, Diabetes mellitus, Impaired mobility and ADLs , Nonhealing ulcer of left lower extremity - PA / LEGAL DOCUMENT ASSISTANT / Resident Statement MD/DO has reviewed & agrees with the documentation as recorded. - Scribe Statement The provider has reviewed the documentation as recorded by the Scribe (Felisha Murdock) All medical record entries made by the Scribe were at my direction and personally dictated by me. I have reviewed the chart and agree that the record accurately reflects my personal performance of the history, physical exam, medical decision making, and the department course for this patient. I have also personally directed, reviewed, and agree with the discharge instructions and disposition.
[2018-05-21] MEDS: Oxycodone/Acetaminophen 5/325 mg Tab PO PRN ×2 (16:11→20:20)
[2018-05-21] MEDS ORDERED: oxyCODONE 80 mg ER Tab (oxyCONTIN) PO STA (17:01)
[2018-05-21] MEDS ORDERED: oxyCODONE 80 mg ER Tab (oxyCONTIN) PO SCH ×2 (17:15→22:00)
--- NOTE | 2018-05-21 18:18 | CP.PCM.HP ---
History of Present Illness - History of Present Illness History of Present Illness: 58-year-old male, whose PMHx includes chronic stasis ulcers, presents to the ED for evaluation of worsening wounds to his bilateral legs. Patient had a recent admission for the same complaint and was discharged two days ago. Patient states he has a visiting nurse who changes the wound dressings for him twice/ week. Patient notes the wound has been draining a foul-smelling discharge. He reports his legs are weak and they occasionally "give out." Patient is unable to care for himself and presents to the ED for further evaluation. He denies fever, chills, shortness of breath, change in sensation, or recent trauma. Present on Admission - Present on Admission Any Indicators Present on Admission: No Past Patient History - Infectious Disease Hx of Infectious Diseases: None - Tetanus Immunizations Tetanus Immunization: Unknown - Past Medical History & Family History Past Medical History?: Yes - Past Social History Smoking Status: Never Smoked - CARDIAC Hx Congestive Heart Failure: Yes Hx Hypercholesterolemia: Yes Hx Hypertension: Yes Hx Peripheral Edema: Yes (+3 pitting ble) - PULMONARY Hx Asthma: Yes Hx Chronic Obstructive Pulmonary Disease (COPD): Yes Hx Pneumonia: Yes Hx Pulmonary Embolism: Yes Hx Sleep Apnea: Yes - NEUROLOGICAL Hx Neurological Disorder: No - HEENT Hx HEENT Problems: No - RENAL Hx Chronic Kidney Disease: Yes (required HD in 2016 briefly) - ENDOCRINE/METABOLIC Hx Hyperthyroidism: Yes Hx Hypothyroidism: Yes - HEMATOLOGICAL/ONCOLOGICAL Hx Blood Disorders: No - INTEGUMENTARY Hx Dermatological Problems: Yes Hx Cellulitis: Yes Other/Comment: CHRONIC LEG ULCERS - MUSCULOSKELETAL/RHEUMATOLOGICAL Hx Arthritis: Yes Hx Fractures: Yes - GASTROINTESTINAL Hx Gastrointestinal Disorders: (reflux obese) - GENITOURINARY/GYNECOLOGICAL Hx Genitourinary Disorders: No Hx Reproductive Disorders: No - PSYCHIATRIC Hx Depression: Yes Hx Substance Use: No - SURGICAL HISTORY Hx Surgeries: Yes Hx Orthopedic Surgery: Yes (bilateral knee replacement) Other/Comment: total left knee - 1998. right ankle screws - 1987. right hip shyam - 1982,. LEG WOUND DEBRIDEMENTS - ANESTHESIA Hx Anesthesia: Yes Hx Anesthesia Reactions: No Hx Malignant Hyperthermia: No Meds Allergies/Adverse Reactions: Allergies Allergy/AdvReac Type Severity Reaction Status Date / Time No Known Allergies Allergy Verified 05/21/18 11:14 Results - Vital Signs Recent Vital Signs: Last Vital Signs Temp 98.3 F 05/21/18 16:47 Pulse 66 05/21/18 16:47 Resp 16 05/21/18 16:47 BP 138/89 05/21/18 16:47 Pulse Ox 99 05/21/18 17:11 - Labs Result Diagrams: 06/28/18 07:10 06/28/18 07:10 Labs: Laboratory Results - last 24 hr 05/21/18 05/21/18 12:40 12:40 WBC 6.9 RBC 4.19 L Hgb 11.4 L Hct 33.7 L MCV 80.4 MCH 27.2 MCHC 33.9 RDW 16.8 H Plt Count 142 MPV 9.5 Neut % (Auto) 70.9 Lymph % (Auto) 18.5 L [place] % (Auto) 6.8 Eos % (Auto) 2.7 Baso % (Auto) 1.1 Neut # (Auto) 4.9 Lymph # (Auto) 1.3 [place] # (Auto) 0.5 Eos # (Auto) 0.2 Baso # (Auto) 0.1 Sodium 141 Potassium 3.8 Chloride 97 L Carbon Dioxide 34 H Anion Gap 14 BUN 27 H Creatinine 0.8 Est GFR ( Amer) > 60 Est GFR (Non-Af Amer) > 60 Random Glucose 116 H Calcium 9.0 Total Bilirubin 0.5 AST 20 ALT 19 L Alkaline Phosphatase 124 Total Protein 7.8 Albumin 4.0 Globulin 3.8 Albumin/Globulin Ratio 1.1
[2018-05-21] MEDS: (Novolin R) Insulin Human Regular 100 units/ml vial SC SCH (21:52)
[2018-05-21] MEDS: oxyCODONE 80 mg ER Tab (oxyCONTIN) PO SCH (23:46)
[2018-05-22] MEDS: Oxycodone/Acetaminophen 5/325 mg Tab PO PRN ×5 (01:03→21:32)
[2018-05-22] MEDS: oxyCODONE 80 mg ER Tab (oxyCONTIN) PO SCH ×3 (05:54→17:41)
[2018-05-22] MEDS: Levothyroxine 75 MCG TAB PO SCH (05:54)
[2018-05-22] MEDS: (Novolin R) Insulin Human Regular 100 units/ml vial SC SCH ×4 (08:00→21:52)
[2018-05-22 12:17] LABS: INR 1.3; PROTHROMBIN TIME 14.2 SECONDS (9.7-12.2)
--- NOTE | 2018-05-22 14:48 | CP.PCM.CON ---
History of Present Illness - History of Present Illness History of Present Illness: Podiatry Consult Note- Dr. Laguna 57 year old male PMHx includes chronic leg ulcers, well known to podiatry and wound care service, seen at bedside in ED regarding chronic recurrent wounds to bilateral legs. Patient states that he has significant pain to his lower extremity L>R. Patient states he was admitted from the ED yesterday, 05/21. Patient is seen by Dr. Laguna in the wound care center weekly. Patient denies any other pedal complaints at this time. Denies F/C/N/V/CP/SOB. Review of Systems - Review of Systems All systems: reviewed and no additional remarkable complaints except Review of Systems: as per HPI - Constitutional Constitutional: As Per HPI - Musculoskeletal Musculoskeletal: As Per HPI Past Patient History - Infectious Disease Hx of Infectious Diseases: None - Tetanus Immunizations Tetanus Immunization: Unknown - Past Medical History & Family History Past Medical History?: Yes - Past Social History Smoking Status: Never Smoked - CARDIAC Hx Congestive Heart Failure: Yes Hx Hypercholesterolemia: Yes Hx Hypertension: Yes Hx Peripheral Edema: Yes (+3 pitting ble) - PULMONARY Hx Asthma: Yes Hx Chronic Obstructive Pulmonary Disease (COPD): Yes Hx Pneumonia: Yes Hx Pulmonary Embolism: Yes Hx Sleep Apnea: Yes - NEUROLOGICAL Hx Neurological Disorder: No - HEENT Hx HEENT Problems: No - RENAL Hx Chronic Kidney Disease: Yes (required HD in 2016 briefly) - ENDOCRINE/METABOLIC Hx Hyperthyroidism: Yes Hx Hypothyroidism: Yes - HEMATOLOGICAL/ONCOLOGICAL Hx Blood Disorders: No - INTEGUMENTARY Hx Dermatological Problems: Yes Hx Cellulitis: Yes Other/Comment: CHRONIC LEG ULCERS - MUSCULOSKELETAL/RHEUMATOLOGICAL Hx Falls: Yes - GASTROINTESTINAL Hx Gastrointestinal Disorders: (reflux obese) - GENITOURINARY/GYNECOLOGICAL Hx Genitourinary Disorders: No Hx Reproductive Disorders: No - PSYCHIATRIC Hx Depression: Yes Hx Substance Use: No - SURGICAL HISTORY Hx Surgeries: Yes Hx Orthopedic Surgery: Yes (bilateral knee replacement) Other/Comment: total left knee - 1998. right ankle screws - 1987. right hip shyam - 1982,. LEG WOUND DEBRIDEMENTS - ANESTHESIA Hx Anesthesia: Yes Hx Anesthesia Reactions: No Hx Malignant Hyperthermia: No Meds Allergies/Adverse Reactions: Allergies Allergy/AdvReac Type Severity Reaction Status Date / Time No Known Allergies Allergy Verified 05/21/18 11:14 - Medications Medications: Current Medications Docusate Sodium (Colace) 100 mg PO DAILY [facility] Last Admin: 05/22/18 09:22 Dose: 100 mg Furosemide (Lasix) 80 mg PO BID [facility] Last Admin: 05/22/18 09:22 Dose: 80 mg Gabapentin (Neurontin) 300 mg PO TID [facility] Last Admin: 05/22/18 13:14 Dose: 300 mg Hydralazine HCl (Apresoline) 25 mg PO BID [facility] Last Admin: 05/22/18 09:22 Dose: 25 mg Insulin Human Regular (Novolin R) 0 unit SC ACHS [facility] PRN Reason: Protocol Last Admin: 05/22/18 12:01 Dose: 1 u Levothyroxine Sodium (Synthroid) 75 mcg PO DAILY@0630 [facility] Last Admin: 05/22/18 05:54 Dose: 75 mcg Metformin HCl (Glucophage Xr) 1,000 mg PO BID [facility] Last Admin: 05/22/18 09:22 Dose: 1,000 mg Oxycodone HCl (Oxycontin Extended Release Tab) 80 mg PO Q6 [facility] Last Admin: 05/22/18 12:02 Dose: 80 mg Oxycodone/Acetaminophen (Percocet 5/325 Mg Tab) 2 tab PO Q4H PRN PRN Reason: Pain, moderate (4-7) Stop: 05/24/18 15:49 Last Admin: 05/22/18 10:17 Dose: 2 tab Warfarin Sodium (Coumadin) 10 mg PO 1800 ONE Stop: 05/22/18 18:01 Physical Exam - Constitutional Appears: Well, Non-toxic, No Acute Distress - Head Exam Head Exam: ATRAUMATIC, NORMOCEPHALIC - Eye Exam Eye Exam: EOMI, PERRL - ENT Exam ENT Exam: Normal Exam - Respiratory Exam Respiratory Exam: NORMAL BREATHING PATTERN - Extremities Exam Additional comments: Lower extremity focused exam: Vasc: Non-palpable pedal pulses due to edema B/L, TG warm to warm, CFT < 3 sec to all digits, +1 pitting edema to bilateral lower extremities distal to tibial tuberosity Derm: Localized mild non-streaking, blanchable periwound erythema to mid-calf level B/L. Left: Multiple circumferential bright red open ulcerations extending from tibial tuberosity to medial malleolus noted to the mid leg. Moderate active sanguinous drainage, wound base is 100% granular. No shital-wound macerations. No purulence noted, moderate malodor noted. no clinical signs of infection Right: Open superficial ulceration noted to the anteromedial aspect of leg at mid-calf level approximately 6cm x 4cm. Mild sero-sanguinous drainage, wound base is 100% granular with no shital-wound macerations. No purulence noted, moderate malodor noted. Neuro: protective sensation mildly diminished ORTHO: moderate-severe pain on palpation of posterior and medial L leg. Minimal tenderness to palpation of R leg - Neurological Exam Neurological exam: Alert, Oriented x3 - Psychiatric Exam Psychiatric exam: Normal Affect, Normal Mood - Skin Skin Exam: Dry, Normal Color Results - Vital Signs Recent Vital Signs: Last Vital Signs Temp 97.7 F 05/22/18 07:20 Pulse 60 05/22/18 07:20 Resp 20 05/22/18 07:20 BP 116/73 05/22/18 09:22 Pulse Ox 95 05/22/18 07:20 - Labs Result Diagrams: 05/21/18 12:40 05/21/18 12:40 Labs: Laboratory Results - last 24 hr 05/21/18 05/22/18 05/22/18 21:29 06:31 11:43 PT INR POC Glucose (mg/dL) 157 H 100 168 H 05/22/18 11:56 PT 14.2 H INR 1.3 POC Glucose (mg/dL) Assessment & Plan - Assessment and Plan (Free Text) Assessment: 57 year old male with bilateral chronic, recurrent wounds to lower extremities Plan: Patient seen and evaluated in ED Discussed plan in detail with attending Dr. Laguna Chart, labs, vitals; afebrile, absent leukocytosis Continue medical management per medical team Continue local wound care: Saline cleanse, Telfa, ABD, DSD, JOSE B/L Podiatry will continue to follow while inhouse
[2018-05-23] MEDS: oxyCODONE 80 mg ER Tab (oxyCONTIN) PO SCH ×4 (00:18→17:53)
[2018-05-23] MEDS: Oxycodone/Acetaminophen 5/325 mg Tab PO PRN ×4 (04:32→21:51)
[2018-05-23] MEDS: Levothyroxine 75 MCG TAB PO SCH (06:06)
[2018-05-23] MEDS: (Novolin R) Insulin Human Regular 100 units/ml vial SC SCH ×4 (07:57→22:30)
[2018-05-23 09:17] LABS: INR 1.3; PROTHROMBIN TIME 13.7 SECONDS (9.7-12.2)
--- NOTE | 2018-05-23 13:43 | CP.PCM.CON ---
History of Present Illness - History of Present Illness History of Present Illness: 57-year-old male, PMHx includes chronic leg ulcers, presents to the emergency with exacerbation of leg ulcers Has large infected ulcers bilat lower extremities which were recently treated here wound care and cultures pending Patient cannot walk and is at risk for falling at this point he requires senior living care - Medical History PMH: Arthritis, Asthma, Back Problems, CAD, CHF, COPD, Depression, Diabetes, Deep Vein Thrombosis, Fibromyalgia, Fractures, HTN, Hypercholesterolemia, Hyperthyroidism, Hypothyroidism, Peripheral Edema (+3 pitting ble), Pneumonia, Pulmonary Embolism, Chronic Kidney Disease (required HD in 2016 briefly), Sleep Apnea, Chronic Pain Surgical History: - [facility] Procedures ASSISTANCE WITH RESPIRATORY VENTILATION, >96 HRS, CPAP (09/04/16) BATHING/SHOWERING TECHNIQUES TREATMENT (07/29/17) CENTRAL VENOUS CATHETER PLACEMENT WITH GUIDANCE (07/08/15) CLOSED ENDOSCOPIC BIOPSY OF LARGE INTESTINE (03/22/14) CONTIN POS AIRWAY PRESSURE [CPAP] (02/21/07) DERMAL REGENERATIVE GRAFT (06/15/15) DRESSING TECHNIQUES TREATMENT (07/29/17) DX ULTRASOUND-HEART (05/14/06) ENDOSC POLYPECTOMY OF LG INTEST (03/22/14) ENDOSCOPIC BRONCHIAL BX (09/22/04) ESOPHAGOGASTRODUODENOSCOPY [EGD] W/CLOSED BIOPSY (03/22/14) EXCIS DEBRIDE OF WOUND, INFECT, OR BURN (06/15/15) EXCISION OF LEFT LOWER LEG SKIN, EXTERNAL APPROACH (09/15/17) EXTRACTION OF LEFT LOWER LEG SKIN, EXTERNAL APPROACH (01/17/18) GAIT TRAINING/AMBULAT TREATMENT USING ASSIST EQUIPMENT (07/29/17) HETEROGRAFT TO SKIN (10/29/14) HOME MANAGEMENT TREATMENT (07/29/17) INJECT ANTIBIOTIC (05/29/06) INJECT ANTICOAGULANT (11/17/04) INJECT/INFUSE NEC (03/22/14) INSERTION OF INFUSION DEV INTO SUP VENA CAVA, PERC APPROACH (01/17/18) INSPECTION OF BLADDER, ENDO (06/22/16) INTRODUCE OF OTH THERAP SUBST INTO RESP TRACT, VIA OPENING (04/06/16) NEBULIZER THERAPY (09/18/14) NON-INVASIVE MECHANICAL VENTILATION (08/13/12) NONEXCIS DEBRID OF WOUND, INFECT, OR BURN (10/09/14) OCCUPATIONAL THERAPY (03/17/14) PERFORMANCE OF URINARY FILTRATION, MULTIPLE (09/04/16) PHYSICAL THERAPY NEC (03/17/14) REPLACE L LOW LEG SKIN W NONAUT SUB, FULL THICK, COOK CHILL TECHNICIAN (01/17/18) TRANSFUSE NONAUT FROZEN PLASMA IN PERIPH VEIN, PERC (09/04/16) VENOUS CATHETERIZATION NEC (04/25/15) Review of Systems - Constitutional Constitutional: As Per HPI, Anorexia, Chills, Fever, Malaise - EENT Eyes: absent: As Per HPI, Blind Spots, Blurred Vision, Change in Vision, Decreased Night Vision, Diplopia, Discharge, Dry Eye, Exophthalmos, Floaters, Irritation, Itchy Eyes, Loss of Peripheral Vision, Pain, Photophobia, Requires Corrective Lenses, Sees Flashes, Spots in Vision, Tunnel Vision, Other Visual Disturbances, Loss of Vision, Other Ears: absent: As Per HPI, Decreased Hearing, Ear Discharge, Ear Pain, Tinnitus, Abnormal Hearing, Disequilibrium, Dizziness, Other Nose/Mouth/Throat: absent: As Per HPI, Epistaxis, Nasal Congestion, Nasal Discharge, Nasal Obstruction, Nasal Trauma, Nose Pain, Post Nasal Drip, Sinus Pain, Sinus Pressure, Bleeding Gums, Change in Voice, Dental Pain, Dry Mouth, Dysphagia, Halitosis, Hoarsness, Lip Swelling, Mouth Lesions, Mouth Pain, Odynophagia, Sore Throat, Throat Swelling, Tongue Swelling, Facial Pain, Neck Pain, Neck Mass, Other - Cardiovascular Cardiovascular: As Per HPI - Respiratory Respiratory: As Per HPI, Cough, Dyspnea. absent: Hemoptysis - Gastrointestinal Gastrointestinal: absent: As Per HPI, Abdominal Pain, Belching, Bloating, Change in Bowel Habits, Change in Stool Character, Coffee Ground Emesis, Constipation, Cramping, Diarrhea, Dyspepsia, Dysphagia, Early Satiety, Excessive Flatus, Fecal Incontinence, Heartburn, Hematemesis, Hematochezia, Loose Stools, Melena, Nausea, Odynophagia, Temesmus, Vomiting, Other - Genitourinary Genitourinary: absent: As Per HPI, Change in Urinary Stream, Difficulty Urinating, Dysuria, Flank Pain, Hematuria, Pyuria, Nocturia, Urinary Incontinence, Urinary Frequency, Urinary Hesitance, Urinary Urgency, Voiding Freq/Small Amts, Freq UTI, Hx Renal/Bladder Calculi, Hx /Renal Surgery, Bladder Distension, Other - Musculoskeletal Musculoskeletal: As Per HPI - Integumentary Integumentary: As Per HPI, Skin Pain, Wounds - Neurological Neurological: absent: As Per HPI, Abnormal Gait, Abnormal Hearing, Abnormal Movements, Abnormal Speech, Behavioral Changes, Burning Sensations, Confusion, Convulsions, Disequilibrium, Dizziness, Numbness, Focal Weakness, Frequent Falls , Headaches, Lack of Coordination, Loss of Vision, Memory Loss, Paresthesias, Radicular Pain, Restless Legs, Sensory Deficit, Syncope, Tingling, Tremor, Vertigo, Weakness, Other Visual Disturbances, Other - Psychiatric Psychiatric: absent: As Per HPI, Abnormal Sleep Pattern, Anhedonia, Anxiety, Auditory Hallucinations, Behavioral Changes, Change in Appetite, Change in Libido, Confusion, Depression, Difficulty Concentrating, Hallucinations, Homicidal Ideation, Hopelessness, Irritability, Memory Loss, Mood Swings, Panic Attacks, Paranoia, Suicidal Ideation, Visual Hallucinations, Tactile Hallucinations, Other - Endocrine Endocrine: absent: As Per HPI, Change in Body Appearance, Change in Libido, Cold Intolorance, Deepening of Voice, Excessive Sweating, Fatigue, Flushing, Heat Intolorance, Increase in Ring/Shoe/Hat Size, Palpitations, Polydipsia, Polyphagia, Polyuria, Other - Hematologic/Lymphatic Hematologic: absent: As Per HPI, Easy Bleeding, Easy Bruising, Lymphadenopathy, Other Past Patient History - Infectious Disease Hx of Infectious Diseases: None - Tetanus Immunizations Tetanus Immunization: Unknown - Past Medical History & Family History Past Medical History?: Yes - Past Social History Smoking Status: Never Smoked - CARDIAC Hx Congestive Heart Failure: Yes Hx Hypercholesterolemia: Yes Hx Hypertension: Yes Hx Peripheral Edema: Yes (+3 pitting ble) - PULMONARY Hx Asthma: Yes Hx Chronic Obstructive Pulmonary Disease (COPD): Yes Hx Pneumonia: Yes Hx Pulmonary Embolism: Yes Hx Sleep Apnea: Yes - NEUROLOGICAL Hx Neurological Disorder: No - HEENT Hx HEENT Problems: No - RENAL Hx Chronic Kidney Disease: Yes (required HD in 2016 briefly) - ENDOCRINE/METABOLIC Hx Hyperthyroidism: Yes Hx Hypothyroidism: Yes - HEMATOLOGICAL/ONCOLOGICAL Hx Blood Disorders: No - INTEGUMENTARY Hx Dermatological Problems: Yes Hx Cellulitis: Yes Other/Comment: CHRONIC LEG ULCERS - MUSCULOSKELETAL/RHEUMATOLOGICAL Hx Falls: Yes - GASTROINTESTINAL Hx Gastrointestinal Disorders: (reflux obese) - GENITOURINARY/GYNECOLOGICAL Hx Genitourinary Disorders: No Hx Reproductive Disorders: No - PSYCHIATRIC Hx Depression: Yes Hx Substance Use: No - SURGICAL HISTORY Hx Surgeries: Yes Hx Orthopedic Surgery: Yes (bilateral knee replacement) Other/Comment: total left knee - 1998. right ankle screws - 1987. right hip shyam - 1982,. LEG WOUND DEBRIDEMENTS - ANESTHESIA Hx Anesthesia: Yes Hx Anesthesia Reactions: No Hx Malignant Hyperthermia: No Meds Allergies/Adverse Reactions: Allergies Allergy/AdvReac Type Severity Reaction Status Date / Time No Known Allergies Allergy Verified 05/21/18 11:14 - Medications Medications: Current Medications Docusate Sodium (Colace) 100 mg PO DAILY [facility] Last Admin: 05/23/18 10:00 Dose: 100 mg Furosemide (Lasix) 80 mg PO BID [facility] Last Admin: 05/23/18 10:01 Dose: 80 mg Gabapentin (Neurontin) 300 mg PO TID [facility] Last Admin: 05/23/18 13:01 Dose: 300 mg Hydralazine HCl (Apresoline) 25 mg PO BID [facility] Last Admin: 05/23/18 10:00 Dose: 25 mg Insulin Human Regular (Novolin R) 0 unit SC [facility] PRN Reason: Protocol Last Admin: 05/23/18 11:40 Dose: Not Given Levothyroxine Sodium (Synthroid) 75 mcg PO DAILY@0630 [facility] Last Admin: 05/23/18 06:06 Dose: 75 mcg Metformin HCl (Glucophage Xr) 1,000 mg PO BID [facility] Last Admin: 05/23/18 10:05 Dose: 1,000 mg Oxycodone HCl (Oxycontin Extended Release Tab) 80 mg PO Q6 [facility] Last Admin: 05/23/18 11:37 Dose: 80 mg Oxycodone/Acetaminophen (Percocet 5/325 Mg Tab) 2 tab PO Q4H PRN PRN Reason: Pain, moderate (4-7) Stop: 05/24/18 15:49 Last Admin: 05/23/18 09:58 Dose: 2 tab Warfarin Sodium (Coumadin) 10 mg PO 1800 [facility] Stop: 05/23/18 18:01 Warfarin Sodium (Coumadin) 1 mg PO 1800 [facility] Stop: 05/23/18 18:01 Physical Exam - Constitutional Appears: Non-toxic, Chronically Ill - Head Exam Head Exam: NORMOCEPHALIC - Eye Exam Eye Exam: Normal appearance Pupil Exam: NORMAL ACCOMODATION - ENT Exam ENT Exam: Mucous Membranes Moist - Neck Exam Neck exam: Negative for: Lymphadenopathy - Respiratory Exam Respiratory Exam: Clear to Auscultation Bilateral - Cardiovascular Exam Cardiovascular Exam: REGULAR RHYTHM, +S1, +S2 - GI/Abdominal Exam GI & Abdominal Exam: Diminished Bowel Sounds, Soft. absent: Tenderness - Rectal Exam Rectal Exam: Deferred - Exam Exam: NORMAL INSPECTION - Extremities Exam Extremities exam: Positive for: normal inspection - Back Exam Back exam: NORMAL INSPECTION. absent: CVA tenderness (L), CVA tenderness (R) - Neurological Exam Neurological exam: Alert, CN II-XII Intact, Oriented x3 - Psychiatric Exam Psychiatric exam: Depressed - Skin Additional comments: bilat leg ulcers ++ Results - Vital Signs Recent Vital Signs: Last Vital Signs Temp 98.5 F 05/23/18 08:54 Pulse 60 05/23/18 08:54 Resp 20 05/23/18 08:54 BP 116/75 05/23/18 10:01 Pulse Ox 18 L 05/23/18 08:54 - Labs Result Diagrams: 05/21/18 12:40 05/21/18 12:40 Labs: Laboratory Results - last 24 hr 05/22/18 05/22/18 05/23/18 17:03 21:45 05:53 PT INR POC Glucose (mg/dL) 139 H 117 H 120 H 05/23/18 05/23/18 08:59 11:38 PT 13.7 H INR 1.3 POC Glucose (mg/dL) 108 Assessment & Plan (1) Ambulatory dysfunction Status: Acute (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
[2018-05-23] MEDS ORDERED: Linezolid 600 mg in D5W 300 ml 600 MG/300 ML BAG IVPB SCH (13:45)
[2018-05-23] MEDS: Cefepime IV 2 gm in Dextrose 2 GM/100 ML BAG IVPB SCH (14:07)
[2018-05-23] MEDS: Linezolid 600 mg in D5W 300 ml 600 MG/300 ML BAG IVPB SCH ×2 (14:40→21:50)
--- NOTE | 2018-05-24 00:15 | CP.PCM.PN ---
Subjective - Date & Time of Evaluation Date of Evaluation: 05/22/18 Time of Evaluation: 19:00 - Subjective Subjective: pt seen and examined at bedside Objective - Vital Signs/Intake and Output Vital Signs (last 24 hours): Temp Pulse Resp BP Pulse Ox 98.9 F 69 20 121/76 96 05/23/18 15:00 05/23/18 15:00 05/23/18 15:00 05/23/18 17:53 05/23/18 15:00 Intake and Output: 05/23/18 05/24/18 18:59 06:59 Intake Total 580 Balance 580 - Medications Medications: Current Medications Docusate Sodium (Colace) 100 mg PO DAILY [facility] Last Admin: 05/23/18 10:00 Dose: 100 mg Furosemide (Lasix) 80 mg PO BID [facility] Last Admin: 05/23/18 17:53 Dose: 80 mg Gabapentin (Neurontin) 300 mg PO TID [facility] Last Admin: 05/23/18 17:52 Dose: 300 mg Hydralazine HCl (Apresoline) 25 mg PO BID [facility] Last Admin: 05/23/18 17:53 Dose: 25 mg Cefepime HCl (Maxipime Iv 2 Gm Premix) 2 gm in 100 mls @ 200 mls/hr IVPB Q12H [facility] PRN Reason: Protocol Stop: 05/28/18 13:46 Last Admin: 05/23/18 14:07 Dose: 200 mls/hr Linezolid (Zyvox 600mg/300ml D5w) 600 mg in 300 mls @ 200 mls/hr IVPB Q12 [facility] PRN Reason: Protocol Last Admin: 05/23/18 21:50 Dose: 200 mls/hr Insulin Human Regular (Novolin R) 0 unit SC ACHS [facility] PRN Reason: Protocol Last Admin: 05/23/18 22:30 Dose: Not Given Levothyroxine Sodium (Synthroid) 75 mcg PO DAILY@0630 [facility] Last Admin: 05/23/18 06:06 Dose: 75 mcg Metformin HCl (Glucophage Xr) 1,000 mg PO BID [facility] Last Admin: 05/23/18 17:52 Dose: 1,000 mg Oxycodone HCl (Oxycontin Extended Release Tab) 80 mg PO Q6 [facility] Last Admin: 05/23/18 17:53 Dose: 80 mg Oxycodone/Acetaminophen (Percocet 5/325 Mg Tab) 2 tab PO Q4H PRN PRN Reason: Pain, moderate (4-7) Stop: 05/24/18 15:49 Last Admin: 05/23/18 21:51 Dose: 2 tab - Labs Labs: 05/21/18 12:40 05/21/18 12:40 PT 13.7 SECONDS (9.7-12.2) H 05/23/18 08:59 INR 1.3 05/23/18 08:59 - Extremities Exam Additional comments: Lower extremity focused exam: Vasc: Non-palpable pedal pulses due to edema B/L, TG warm to warm, CFT < 3 sec to all digits, +1 pitting edema to bilateral lower extremities distal to tibial tuberosity Derm: Localized mild non-streaking, blanchable periwound erythema to mid-calf level B/L. Left: Multiple circumferential bright red open ulcerations extending from tibial tuberosity to medial malleolus noted to the mid leg. Moderate active sanguinous drainage, wound base is 100% granular. No shital-wound macerations. No purulence noted, moderate malodor noted. no clinical signs of infection Right: Open superficial ulceration noted to the anteromedial aspect of leg at mid-calf level approximately 6cm x 4cm. Mild sero-sanguinous drainage, wound base is 100% granular with no shital-wound macerations. No purulence noted, moderate malodor noted. Neuro: protective sensation mildly diminished ORTHO: moderate-severe pain on palpation of posterior and medial L leg. Minimal tenderness to palpation of R leg
--- NOTE | 2018-05-24 00:21 | CP.PCM.PN ---
Subjective - Date & Time of Evaluation Date of Evaluation: 05/23/18 Time of Evaluation: 19:00 - Subjective Subjective: Pt seen and examined has large infected ulcers bilat lower extremities which were recently treated here wound care and cultures pending Patient cannot walk and is at risk for falling at this point he requires [facility] care Objective - Vital Signs/Intake and Output Vital Signs (last 24 hours): Temp Pulse Resp BP Pulse Ox 98.9 F 69 20 121/76 96 05/23/18 15:00 05/23/18 15:00 05/23/18 15:00 05/23/18 17:53 05/23/18 15:00 Intake and Output: 05/23/18 05/24/18 18:59 06:59 Intake Total 580 Balance 580 - Medications Medications: Current Medications Docusate Sodium (Colace) 100 mg PO DAILY [facility] Last Admin: 05/23/18 10:00 Dose: 100 mg Furosemide (Lasix) 80 mg PO BID [facility] Last Admin: 05/23/18 17:53 Dose: 80 mg Gabapentin (Neurontin) 300 mg PO TID [facility] Last Admin: 05/23/18 17:52 Dose: 300 mg Hydralazine HCl (Apresoline) 25 mg PO BID [facility] Last Admin: 05/23/18 17:53 Dose: 25 mg Cefepime HCl (Maxipime Iv 2 Gm Premix) 2 gm in 100 mls @ 200 mls/hr IVPB Q12H [facility] PRN Reason: Protocol Stop: 05/28/18 13:46 Last Admin: 05/23/18 14:07 Dose: 200 mls/hr Linezolid (Zyvox 600mg/300ml D5w) 600 mg in 300 mls @ 200 mls/hr IVPB Q12 [facility] PRN Reason: Protocol Last Admin: 05/23/18 21:50 Dose: 200 mls/hr Insulin Human Regular (Novolin R) 0 unit SC ACHS [facility] PRN Reason: Protocol Last Admin: 05/23/18 22:30 Dose: Not Given Levothyroxine Sodium (Synthroid) 75 mcg PO DAILY@0630 [facility] Last Admin: 05/23/18 06:06 Dose: 75 mcg Metformin HCl (Glucophage Xr) 1,000 mg PO BID [facility] Last Admin: 05/23/18 17:52 Dose: 1,000 mg Oxycodone HCl (Oxycontin Extended Release Tab) 80 mg PO Q6 [facility] Last Admin: 05/23/18 17:53 Dose: 80 mg Oxycodone/Acetaminophen (Percocet 5/325 Mg Tab) 2 tab PO Q4H PRN PRN Reason: Pain, moderate (4-7) Stop: 05/24/18 15:49 Last Admin: 05/23/18 21:51 Dose: 2 tab - Labs Labs: 05/21/18 12:40 05/21/18 12:40 PT 13.7 SECONDS (9.7-12.2) H 05/23/18 08:59 INR 1.3 05/23/18 08:59
[2018-05-24] MEDS: oxyCODONE 80 mg ER Tab (oxyCONTIN) PO SCH ×4 (00:25→17:40)
[2018-05-24] MEDS: Cefepime IV 2 gm in Dextrose 2 GM/100 ML BAG IVPB SCH ×2 (01:12→13:36)
[2018-05-24] MEDS: Oxycodone/Acetaminophen 5/325 mg Tab PO PRN ×4 (04:24→21:27)
[2018-05-24] MEDS: Levothyroxine 75 MCG TAB PO SCH (06:29)
[2018-05-24] MEDS: (Novolin R) Insulin Human Regular 100 units/ml vial SC SCH ×4 (07:47→21:53)
[2018-05-24] MEDS: Linezolid 600 mg in D5W 300 ml 600 MG/300 ML BAG IVPB SCH ×2 (09:23→22:48)
[2018-05-24 11:40] LABS: INR 1.4; PROTHROMBIN TIME 15.5 SECONDS (9.7-12.2)
--- NOTE | 2018-05-24 11:47 | CP.PCM.PN ---
Subjective - Date & Time of Evaluation Date of Evaluation: 05/24/18 Time of Evaluation: 08:00 - Subjective Subjective: last cultures + staph MRSA and proteus will order ceretec scan Objective - Vital Signs/Intake and Output Vital Signs (last 24 hours): Temp Pulse Resp BP Pulse Ox 97.6 F 61 20 114/70 95 05/24/18 07:00 05/24/18 07:00 05/24/18 07:00 05/24/18 09:22 05/24/18 07:00 Intake and Output: 05/24/18 05/24/18 06:59 18:59 Output Total 900 Balance -900 - Medications Medications: Current Medications Docusate Sodium (Colace) 100 mg PO DAILY [facility] Last Admin: 05/24/18 09:20 Dose: 100 mg Furosemide (Lasix) 80 mg PO BID [facility] Last Admin: 05/24/18 09:22 Dose: 80 mg Gabapentin (Neurontin) 300 mg PO TID [facility] Last Admin: 05/24/18 09:20 Dose: 300 mg Hydralazine HCl (Apresoline) 25 mg PO BID [facility] Last Admin: 05/24/18 09:20 Dose: 25 mg Cefepime HCl (Maxipime Iv 2 Gm Premix) 2 gm in 100 mls @ 200 mls/hr IVPB Q12H [facility] PRN Reason: Protocol Stop: 05/28/18 13:46 Last Admin: 05/24/18 01:12 Dose: 200 mls/hr Linezolid (Zyvox 600mg/300ml D5w) 600 mg in 300 mls @ 200 mls/hr IVPB Q12 [facility] PRN Reason: Protocol Last Admin: 05/24/18 09:23 Dose: 200 mls/hr Insulin Human Regular (Novolin R) 0 unit SC ACHS [facility] PRN Reason: Protocol Last Admin: 05/24/18 07:47 Dose: Not Given Levothyroxine Sodium (Synthroid) 75 mcg PO DAILY@0630 [facility] Last Admin: 05/24/18 06:29 Dose: 75 mcg Metformin HCl (Glucophage Xr) 1,000 mg PO BID [facility] Last Admin: 05/24/18 09:20 Dose: 1,000 mg Oxycodone HCl (Oxycontin Extended Release Tab) 80 mg PO Q6 [facility] Last Admin: 06/25/18 06:28 Dose: 80 mg Oxycodone/Acetaminophen (Percocet 5/325 Mg Tab) 2 tab PO Q4H [facility] PRN Reason: Pain, moderate (4-7) Stop: 05/24/18 15:49 Last Admin: 05/24/18 09:25 Dose: 2 tab - Labs Labs: 05/21/18 12:40 05/21/18 12:40 PT 15.5 SECONDS (9.7-12.2) H 05/24/18 11:29 INR 1.4 05/24/18 11:29 - Constitutional Appears: Non-toxic, Chronically Ill - Head Exam Head Exam: NORMOCEPHALIC - Eye Exam Eye Exam: PERRL - ENT Exam ENT Exam: Mucous Membranes Dry - Neck Exam Neck Exam: absent: Lymphadenopathy - Respiratory Exam Respiratory Exam: Decreased Breath Sounds - Cardiovascular Exam Cardiovascular Exam: REGULAR RHYTHM - GI/Abdominal Exam GI & Abdominal Exam: Distended Assessment and Plan (1) Ambulatory dysfunction Status: Acute (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
--- NOTE | 2018-05-24 12:01 | CP.PCM.PN ---
Subjective - Date & Time of Evaluation Date of Evaluation: 05/24/18 Time of Evaluation: 09:17 - Subjective Subjective: Podiatry Consult Note- Dr. Laguna 57 year old male PMHx includes chronic leg ulcers esd seen at bedside with attending Dr. Laguna concerning chronic recurrent wounds to bilateral legs. Patient states that he has significant pain to his lower extremity L>R. Patient is well known to Dr. Laguna for chronic bilateral ulcerations. Patient admits to severe pain to Left leg ulceration. This pain is chronic and not new. Patient denies any other pedal complaints at this time. Denies F/C/N/V/CP/SOB. Objective - Vital Signs/Intake and Output Vital Signs (last 24 hours): Temp Pulse Resp BP Pulse Ox 97.6 F 61 20 114/70 95 05/24/18 07:00 05/24/18 07:00 05/24/18 07:00 05/24/18 09:22 05/24/18 07:00 Intake and Output: 05/24/18 05/24/18 06:59 18:59 Output Total 900 Balance -900 - Medications Medications: Current Medications Docusate Sodium (Colace) 100 mg PO DAILY [facility] Last Admin: 05/24/18 09:20 Dose: 100 mg Furosemide (Lasix) 80 mg PO BID [facility] Last Admin: 05/24/18 09:22 Dose: 80 mg Gabapentin (Neurontin) 300 mg PO TID [facility] Last Admin: 05/24/18 09:20 Dose: 300 mg Hydralazine HCl (Apresoline) 25 mg PO BID [facility] Last Admin: 05/24/18 09:20 Dose: 25 mg Cefepime HCl (Maxipime Iv 2 Gm Premix) 2 gm in 100 mls @ 200 mls/hr IVPB Q12H [facility] PRN Reason: Protocol Stop: 05/28/18 13:46 Last Admin: 05/24/18 01:12 Dose: 200 mls/hr Linezolid (Zyvox 600mg/300ml D5w) 600 mg in 300 mls @ 200 mls/hr IVPB Q12 [facility] PRN Reason: Protocol Last Admin: 05/24/18 09:23 Dose: 200 mls/hr Insulin Human Regular (Novolin R) 0 unit SC ACHS [facility] PRN Reason: Protocol Last Admin: 05/24/18 07:47 Dose: Not Given Levothyroxine Sodium (Synthroid) 75 mcg PO DAILY@0630 [facility] Last Admin: 05/24/18 06:29 Dose: 75 mcg Metformin HCl (Glucophage Xr) 1,000 mg PO BID [facility] Last Admin: 05/24/18 09:20 Dose: 1,000 mg Oxycodone HCl (Oxycontin Extended Release Tab) 80 mg PO Q6 [facility] Last Admin: 05/24/18 06:28 Dose: 80 mg Oxycodone/Acetaminophen (Percocet 5/325 Mg Tab) 2 tab PO Q4H PRN PRN Reason: Pain, moderate (4-7) Stop: 05/24/18 15:49 Last Admin: 05/24/18 09:25 Dose: 2 tab - Labs Labs: 05/21/18 12:40 05/21/18 12:40 PT 15.5 SECONDS (9.7-12.2) H 05/24/18 11:29 INR 1.4 05/24/18 11:29 - Constitutional Appears: Well, Non-toxic, No Acute Distress - Head Exam Head Exam: ATRAUMATIC - Extremities Exam Additional comments: Lower extremity focused exam: Vasc: Non-palpable pedal pulses due to edema B/L, TG warm to warm, CFT < 3 sec to all digits, +1 pitting edema to bilateral lower extremities distal to tibial tuberosity Derm: Localized mild non-streaking, blanchable periwound erythema to mid-calf level B/L. Left: Multiple circumferential bright red open ulcerations extending from tibial tuberosity to medial malleolus noted to the mid leg. Moderate active sanguinous drainage, wound base is 100% granular. No shital-wound macerations. No purulence noted, moderate malodor noted. no clinical signs of infection Right: Open superficial ulceration noted to the anteromedial aspect of leg at mid-calf level approximately 6cm x 4cm. Mild sero-sanguinous drainage, wound base is 100% granular with no shital-wound macerations. No purulence noted, moderate malodor noted. Neuro: protective sensation mildly diminished ORTHO: moderate-severe pain on palpation of posterior and medial L leg. Minimal tenderness to palpation of R leg - Neurological Exam Neurological Exam: Alert, Awake, Oriented x3 - Psychiatric Exam Psychiatric exam: Normal Affect, Normal Mood - Skin Skin Exam: Normal Color, Warm Assessment and Plan - Assessment and Plan (Free Text) Assessment: 57 year old male with bilateral chronic, recurrent wounds to lower extremities Plan: Patient seen and evaluated with Dr. Laguna Chart, labs, vitals; afebrile, absent leukocytosis Continue medical management per medical team Continue local wound care: Saline cleanse, Telfa, ABD, DSD, JOSE B/L Podiatry will continue to follow while inhouse
--- NOTE | 2018-05-24 15:09 | RAD ---
PROCEDURE: Left Wrist Radiographs. HISTORY: Known left wrist fracture presenting with acute onset of pain COMPARISON: 03/30/2018, 04/22/2018 serial radiographs left hand and wrist FINDINGS: BONES: Healing fractures of the distal radius and ulna/ulnar styloid. No new fractures are identified. JOINTS: Mild osteoarthritic change. SOFT TISSUES: Normal. OTHER FINDINGS: None. IMPRESSION: Healing fractures of the distal radius and ulna. No new/ acute abnormalities.
--- NOTE | 2018-05-24 15:10 | RAD ---
PROCEDURE: Left Hand Radiographs. HISTORY: History of Colles fracture presenting with acute onset of pain. COMPARISON: [id number] serial studies left hand and wrist FINDINGS: BONES: No acute fractures. Non osseous union distal ulnar fracture. Radiographic manifestations of healing distal radial fracture. JOINTS: Moderate osteoarthritic changes. SOFT TISSUES: Normal. OTHER FINDINGS: None. IMPRESSION: No acute findings related to/accounting for the clinical presentation.
[2018-05-25] MEDS: oxyCODONE 80 mg ER Tab (oxyCONTIN) PO SCH ×4 (01:33→18:03)
[2018-05-25] MEDS: Cefepime IV 2 gm in Dextrose 2 GM/100 ML BAG IVPB SCH ×2 (01:36→14:49)
[2018-05-25] MEDS: Oxycodone/Acetaminophen 5/325 mg Tab PO PRN ×4 (04:01→20:35)
--- NOTE | 2018-05-25 06:04 | CP.PCM.PN ---
Subjective - Date & Time of Evaluation Date of Evaluation: 05/24/18 Time of Evaluation: 20:00 - Subjective Subjective: Pt seen and examined at bedside Objective - Vital Signs/Intake and Output Vital Signs (last 24 hours): Temp Pulse Resp BP Pulse Ox 97.6 F 66 95 H 115/78 20 L 05/24/18 23:20 05/24/18 23:20 05/24/18 23:20 05/24/18 23:20 05/24/18 23:20 Intake and Output: 05/24/18 05/25/18 18:59 06:59 Intake Total 200 Output Total 1000 2220 Balance -800 -2220 - Medications Medications: Current Medications Docusate Sodium (Colace) 100 mg PO DAILY [facility] Last Admin: 05/24/18 09:20 Dose: 100 mg Furosemide (Lasix) 80 mg PO BID [facility] Last Admin: 05/24/18 17:36 Dose: 80 mg Gabapentin (Neurontin) 300 mg PO TID [facility] Last Admin: 05/24/18 17:35 Dose: 300 mg Hydralazine HCl (Apresoline) 25 mg PO BID [facility] Last Admin: 05/24/18 17:36 Dose: 25 mg Cefepime HCl (Maxipime Iv 2 Gm Premix) 2 gm in 100 mls @ 200 mls/hr IVPB Q12H [facility] PRN Reason: Protocol Stop: 05/28/18 13:46 Last Admin: 05/25/18 01:36 Dose: 200 mls/hr Linezolid (Zyvox 600mg/300ml D5w) 600 mg in 300 mls @ 200 mls/hr IVPB Q12 [facility] PRN Reason: Protocol Last Admin: 05/24/18 22:48 Dose: 200 mls/hr Insulin Human Regular (Novolin R) 0 unit SC ACHS [facility] PRN Reason: Protocol Last Admin: 05/24/18 21:53 Dose: Not Given Levothyroxine Sodium (Synthroid) 75 mcg PO DAILY@0630 [facility] Last Admin: 05/24/18 06:29 Dose: 75 mcg Metformin HCl (Glucophage Xr) 1,000 mg PO BID [facility] Last Admin: 05/24/18 17:40 Dose: 1,000 mg Nystatin (Nystop Topical Powder) 1 applic TOP BID [facility] Last Admin: 05/24/18 19:45 Dose: 1 applic Oxycodone HCl (Oxycontin Extended Release Tab) 80 mg PO Q6 [facility] Last Admin: 05/25/18 01:33 Dose: 80 mg Oxycodone/Acetaminophen (Percocet 5/325 Mg Tab) 2 tab PO Q4H PRN PRN Reason: Pain, severe (8-10) Stop: 05/27/18 21:14 Last Admin: 05/25/18 04:01 Dose: 2 tab - Labs Labs: 05/21/18 12:40 05/21/18 12:40 PT 15.5 SECONDS (9.7-12.2) H 05/24/18 11:29 INR 1.4 05/24/18 11:29
[2018-05-25] MEDS: Levothyroxine 75 MCG TAB PO SCH (06:16)
[2018-05-25 07:28] LABS: INR 1.6; PROTHROMBIN TIME 17.7 SECONDS (9.7-12.2)
[2018-05-25] MEDS: (Novolin R) Insulin Human Regular 100 units/ml vial SC SCH ×4 (07:30→21:30)
[2018-05-25] MEDS: Linezolid 600 mg in D5W 300 ml 600 MG/300 ML BAG IVPB SCH ×2 (09:48→21:41)
--- NOTE | 2018-05-25 11:59 | CP.PCM.PN ---
Subjective - Date & Time of Evaluation Date of Evaluation: 05/25/18 Time of Evaluation: 11:50 - Subjective Subjective: Podiatry progress note for Dr. Laguna 57 yo patient seen for bilateral leg ulcerations. States he is in pain the pain is worse on the left than it is on the right. Seen resting comfortably in bed. Dressings are clean dry and intact. Patient is well known to Dr. Laguna for chronic leg ulcerations. Patient denies any worsening pain. States that he has noticed pain in his right big toe and some dried blood at the inside corner. Patient has no other pedal complaints at this time and denies N/V/F/C/SOB/CP. Objective - Vital Signs/Intake and Output Vital Signs (last 24 hours): Temp Pulse Resp BP Pulse Ox 98.1 F 73 20 101/67 95 05/25/18 07:25 05/25/18 09:44 05/25/18 07:25 05/25/18 09:44 05/25/18 07:25 Intake and Output: 05/25/18 05/25/18 06:59 18:59 Output Total 2220 Balance -2220 - Medications Medications: Current Medications Docusate Sodium (Colace) 100 mg PO DAILY [facility] Last Admin: 05/25/18 09:40 Dose: 100 mg Furosemide (Lasix) 80 mg PO BID [facility] Last Admin: 05/24/18 17:36 Dose: 80 mg Gabapentin (Neurontin) 300 mg PO TID [facility] Last Admin: 05/25/18 09:40 Dose: 300 mg Cefepime HCl (Maxipime Iv 2 Gm Premix) 2 gm in 100 mls @ 200 mls/hr IVPB Q12H [facility] PRN Reason: Protocol Stop: 05/28/18 13:46 Last Admin: 05/25/18 01:36 Dose: 200 mls/hr Linezolid (Zyvox 600mg/300ml D5w) 600 mg in 300 mls @ 200 mls/hr IVPB Q12 [facility] PRN Reason: Protocol Last Admin: 05/25/18 09:48 Dose: 200 mls/hr Insulin Human Regular (Novolin R) 0 unit SC ACHS [facility] PRN Reason: Protocol Last Admin: 05/25/18 07:30 Dose: Not Given Levothyroxine Sodium (Synthroid) 75 mcg PO DAILY@30 [facility] Last Admin: 05/25/18 06:16 Dose: 75 mcg Metformin HCl (Glucophage Xr) 1,000 mg PO BID [facility] Last Admin: 05/25/18 09:40 Dose: 1,000 mg Nystatin (Nystop Topical Powder) 1 applic TOP BID [facility] Last Admin: 05/25/18 09:46 Dose: 1 applic Oxycodone HCl (Oxycontin Extended Release Tab) 80 mg PO Q6 [facility] Last Admin: 05/25/18 06:14 Dose: 80 mg Oxycodone/Acetaminophen (Percocet 5/325 Mg Tab) 2 tab PO Q4H [facility] PRN Reason: Pain, severe (8-10) Stop: 05/27/18 21:14 Last Admin: 05/25/18 09:38 Dose: 2 tab Warfarin Sodium (Coumadin) 10 mg PO 1800 [facility] Stop: 05/25/18 18:01 Warfarin Sodium (Coumadin) 1 mg PO 1800 [facility] Stop: 05/25/18 18:01 - Labs Labs: 05/21/18 12:40 05/21/18 12:40 PT 17.7 SECONDS (9.7-12.2) H 05/25/18 07:17 INR 1.6 05/25/18 07:17 - Constitutional Appears: Well, Non-toxic, No Acute Distress - Head Exam Head Exam: ATRAUMATIC, NORMOCEPHALIC - Extremities Exam Additional comments: Lower extremity focused exam: Vasc: Non-palpable pedal pulses due to edema B/L, TG warm to warm, CFT < 3 sec to all digits, +1 pitting edema to bilateral lower extremities distal to tibial tuberosity Derm: Localized mild non-streaking, blanchable periwound erythema to mid-calf level B/L. Right: Open superficial ulceration noted to the anteromedial aspect of leg at mid-calf level approximately 6cm x 4cm. Mild sero-sanguinous drainage, wound base is 100% granular with no shital-wound macerations. No purulence noted, moderate malodor noted. Right medial border of hallucal nail ingrown, scab formation, minimal serous drainage from site, no pus, no malodor, no clinical signs of infection Left: Multiple circumferential bright red open ulcerations extending from tibial tuberosity to medial malleolus noted to the mid leg. Moderate active sanguinous drainage, wound base is 100% granular. No shital-wound macerations. No purulence noted, moderate malodor noted. no clinical signs of infection Neuro: protective sensation mildly diminished ORTHO: moderate-severe pain on palpation of posterior and medial L leg. Minimal tenderness to palpation of R leg - Neurological Exam Neurological Exam: Alert, Awake, Oriented x3 - Psychiatric Exam Psychiatric exam: Normal Affect, Normal Mood Assessment and Plan - Assessment and Plan (Free Text) Assessment: 57 yo patient with bilateral chronic, recurrent wounds to lower extremities Plan: Patient seen and evaluated with Dr. Laguna Chart, labs, vitals; afebrile, absent leukocytosis Continue medical management per medical team Continue local wound care: Saline cleanse, Telfa, ABD, DSD, JOSE B/L Dressing to bilateral lower extremties remain cdi no strike through noted Podiatry will continue to follow while inhouse
--- NOTE | 2018-05-25 13:19 | NM ---
PROCEDURE: HISTORY: r/o OM of lower legs , chronic nonhealing ulcers Relevant surgical history: Left TKA COMPARISON: 01/18/2018 left tibia and fibula radiographs 10/31/2014 04/25/2016 cereal three-phase bone scans TECHNIQUE: 24.2 mCi technetium 99 M Ceretec labeled white blood cells. Imaging performed at 2 and 24 hours per institutional protocol. FINDINGS: Accumulation of radionuclide identified in the soft tissues left calf greater than right. Scintigraphic findings consistent with prior TKA. IMPRESSION: Uptake in the lower extremities in particular the left calf (to a greater extent than the right calf area) consistent with cellulitis without evidence of osteomyelitis.
--- NOTE | 2018-05-25 21:42 | CON ---
DATE: 05/25/2018 HISTORY OF PRESENT ILLNESS: The patient was admitted by Dr. Albright for diagnosis of diabetes and nonhealing of the leg ulcer. I have seen this patient in the past for fracture of the left distal radius, proceeded by closed reduction and application of a splint. PHYSICAL EXAMINATION: There was minimal swelling of the wrist. Examination is done outside the wrist splint he was wearing. Minimal tenderness noted over the ulnar aspect of the wrist. No actual tenderness noted over the fracture site. Range of motion of the wrist is limited. X-rays revealed a healing of the fracture of the distal radius. Plan at this point is to start the patient on occupational therapy. The patient also will discontinue the splint and will start range of motion exercises. We will follow. Remy Young MD
--- NOTE | 2018-05-25 22:18 | CP.PCM.PN ---
Subjective - Date & Time of Evaluation Date of Evaluation: 05/25/18 Time of Evaluation: 19:40 - Subjective Subjective: patient seen and examined for bilateral leg ulcerations. States he is in pain the pain is worse on the left than it is on the right. Seen resting comfortably in bed. Dressings are clean dry and intact. denies N/V/F/C/SOB/CP. Objective - Vital Signs/Intake and Output Vital Signs (last 24 hours): Temp Pulse Resp BP Pulse Ox 98.4 F 64 20 122/74 97 05/25/18 15:00 05/25/18 15:00 05/25/18 15:00 05/25/18 18:03 05/25/18 15:00 Intake and Output: 05/25/18 05/26/18 18:59 06:59 Intake Total 450 820 Output Total 600 Balance 450 220 - Medications Medications: Current Medications Docusate Sodium (Colace) 100 mg PO DAILY [facility] Last Admin: 05/25/18 09:40 Dose: 100 mg Furosemide (Lasix) 80 mg PO BID [facility] Last Admin: 05/25/18 18:03 Dose: 80 mg Gabapentin (Neurontin) 300 mg PO TID [facility] Last Admin: 05/25/18 18:04 Dose: 300 mg Cefepime HCl (Maxipime Iv 2 Gm Premix) 2 gm in 100 mls @ 200 mls/hr IVPB Q12H [facility] PRN Reason: Protocol Stop: 05/28/18 13:46 Last Admin: 05/25/18 14:49 Dose: 200 mls/hr Linezolid (Zyvox 600mg/300ml D5w) 600 mg in 300 mls @ 200 mls/hr IVPB Q12 [facility] PRN Reason: Protocol Last Admin: 05/25/18 21:41 Dose: 200 mls/hr Insulin Human Regular (Novolin R) 0 unit SC ACHS [facility] PRN Reason: Protocol Last Admin: 05/25/18 21:30 Dose: Not Given Levothyroxine Sodium (Synthroid) 75 mcg PO DAILY@0630 [facility] Last Admin: 05/25/18 06:16 Dose: 75 mcg Metformin HCl (Glucophage Xr) 1,000 mg PO BID [facility] Last Admin: 05/25/18 18:02 Dose: 1,000 mg Nystatin (Nystop Topical Powder) 1 applic TOP BID [facility] Last Admin: 05/25/18 18:02 Dose: 1 applic Oxycodone HCl (Oxycontin Extended Release Tab) 80 mg PO Q6 [facility] Last Admin: 05/25/18 18:03 Dose: 80 mg Oxycodone/Acetaminophen (Percocet 5/325 Mg Tab) 2 tab PO Q4H [facility] PRN Reason: Pain, severe (8-10) Stop: 05/27/18 21:14 Last Admin: 05/25/18 20:35 Dose: 2 tab - Labs Labs: 05/21/18 12:40 05/21/18 12:40 PT 17.7 SECONDS (9.7-12.2) H 05/25/18 07:17 INR 1.6 05/25/18 07:17 - Constitutional Appears: No Acute Distress - Head Exam Head Exam: ATRAUMATIC, NORMAL INSPECTION, NORMOCEPHALIC - Eye Exam Eye Exam: EOMI, Normal appearance, PERRL Pupil Exam: NORMAL ACCOMODATION, PERRL - Respiratory Exam Respiratory Exam: Clear to Ausculation Bilateral, NORMAL BREATHING PATTERN - Cardiovascular Exam Cardiovascular Exam: REGULAR RHYTHM, +S1, +S2. absent: Murmur - GI/Abdominal Exam GI & Abdominal Exam: Soft, Normal Bowel Sounds. absent: Tenderness
[2018-05-26] MEDS: oxyCODONE 80 mg ER Tab (oxyCONTIN) PO SCH ×4 (00:12→18:04)
[2018-05-26] MEDS: Oxycodone/Acetaminophen 5/325 mg Tab PO PRN ×4 (02:01→19:35)
[2018-05-26] MEDS: Cefepime IV 2 gm in Dextrose 2 GM/100 ML BAG IVPB SCH ×2 (02:02→13:20)
[2018-05-26] MEDS: Levothyroxine 75 MCG TAB PO SCH (06:31)
[2018-05-26 07:16] LABS: INR 1.9; PROTHROMBIN TIME 20.6 SECONDS (9.7-12.2)
[2018-05-26] MEDS: (Novolin R) Insulin Human Regular 100 units/ml vial SC SCH ×4 (07:51→21:07)
[2018-05-26] MEDS: Linezolid 600 mg in D5W 300 ml 600 MG/300 ML BAG IVPB SCH ×2 (09:57→21:00)
--- NOTE | 2018-05-26 14:22 | CP.PCM.PN ---
Subjective - Date & Time of Evaluation Date of Evaluation: 05/26/18 Time of Evaluation: 14:19 - Subjective Subjective: Podiatry progress note for Dr. Laguna 57 yo male patient was seen at bedside this afternoon concerning bilateral leg ulcerations. Patient is resting comfortably in bed. AAO x3. Dressings are clean dry and intact. Patient is well known to Dr. Laguna for chronic leg ulcerations. Patient has no other pedal complaints at this time and denies N/V/F/C/SOB/CP. Objective - Vital Signs/Intake and Output Vital Signs (last 24 hours): Temp Pulse Resp BP Pulse Ox 98.4 F 60 20 117/75 96 05/26/18 07:00 05/26/18 07:00 05/26/18 07:00 05/26/18 09:53 05/26/18 07:00 Intake and Output: 05/26/18 05/26/18 06:59 18:59 Intake Total 1330 Output Total 1600 Balance -270 - Medications Medications: Current Medications Docusate Sodium (Colace) 100 mg PO DAILY [facility] Last Admin: 05/26/18 09:54 Dose: 100 mg Furosemide (Lasix) 80 mg PO BID [facility] Last Admin: 05/26/18 09:53 Dose: 80 mg Gabapentin (Neurontin) 300 mg PO TID [facility] Last Admin: 05/26/18 13:20 Dose: 300 mg Cefepime HCl (Maxipime Iv 2 Gm Premix) 2 gm in 100 mls @ 200 mls/hr IVPB Q12H [facility] PRN Reason: Protocol Stop: 05/28/18 13:46 Last Admin: 05/26/18 13:20 Dose: 200 mls/hr Linezolid (Zyvox 600mg/300ml D5w) 600 mg in 300 mls @ 200 mls/hr IVPB Q12 [facility] PRN Reason: Protocol Last Admin: 05/26/18 09:57 Dose: 200 mls/hr Insulin Human Regular (Novolin R) 0 unit SC ACHS [facility] PRN Reason: Protocol Last Admin: 05/26/18 12:15 Dose: 1 unit Levothyroxine Sodium (Synthroid) 75 mcg PO DAILY@0630 [facility] Last Admin: 05/26/18 06:31 Dose: 75 mcg Metformin HCl (Glucophage Xr) 1,000 mg PO BID [facility] Last Admin: 05/26/18 09:55 Dose: 1,000 mg Nystatin (Nystop Topical Powder) 1 applic TOP BID [facility] Last Admin: 05/26/18 10:11 Dose: 1 applic Oxycodone HCl (Oxycontin Extended Release Tab) 80 mg PO Q6 [facility] Last Admin: 05/26/18 12:01 Dose: 80 mg Oxycodone/Acetaminophen (Percocet 5/325 Mg Tab) 2 tab PO Q4H [facility] PRN Reason: Pain, severe (8-10) Stop: 05/27/18 21:14 Last Admin: 05/26/18 08:38 Dose: 2 tab Warfarin Sodium (Coumadin) 10 mg PO 1800 [facility] Stop: 05/26/18 18:01 - Labs Labs: 05/21/18 12:40 05/21/18 12:40 PT 20.6 SECONDS (9.7-12.2) H 05/26/18 07:04 INR 1.9 05/26/18 07:04 - Constitutional Appears: Well, Non-toxic, No Acute Distress - Head Exam Head Exam: ATRAUMATIC - Extremities Exam Additional comments: Lower extremity focused exam: Vasc: Non-palpable pedal pulses due to edema B/L, TG warm to warm, CFT < 3 sec to all digits, +1 pitting edema to bilateral lower extremities distal to tibial tuberosity Derm: Localized mild non-streaking, blanchable periwound erythema to mid-calf level B/L. Right: Open superficial ulceration noted to the anteromedial aspect of leg at mid-calf level approximately 6cm x 4cm. Mild sero-sanguinous drainage, wound base is 100% granular with no shital-wound macerations. No purulence noted, moderate malodor noted. Right medial border of hallucal nail ingrown, scab formation, minimal serous drainage from site, no pus, no malodor, no clinical signs of infection Left: Multiple circumferential bright red open ulcerations extending from tibial tuberosity to medial malleolus noted to the mid leg. Moderate active sanguinous drainage, wound base is 100% granular. No shital-wound macerations. No purulence noted, moderate malodor noted. no clinical signs of infection Neuro: protective sensation mildly diminished ORTHO: moderate-severe pain on palpation of posterior and medial L leg. Minimal tenderness to palpation of R leg - Neurological Exam Neurological Exam: Alert, Awake, Oriented x3 - Psychiatric Exam Psychiatric exam: Normal Affect, Normal Mood Assessment and Plan - Assessment and Plan (Free Text) Assessment: 57 yo male patient presents with chronic, recurrent wounds to bilateral lower extremities Plan: Patient seen and evaluated with Dr. Laguna Chart, labs, vitals; afebrile, absent leukocytosis Continue local wound care: Saline cleanse, Telfa, ABD, DSD, JOSE B/L Continue pain medicine prn Dressing to bilateral lower extremties remain cdi no strike through noted Podiatry will continue to follow while inhouse
--- NOTE | 2018-05-26 15:31 | CP.PCM.PN ---
Subjective - Date & Time of Evaluation Date of Evaluation: 05/26/18 Time of Evaluation: 09:00 - Subjective Subjective: bone scan neg Objective - Vital Signs/Intake and Output Vital Signs (last 24 hours): Temp Pulse Resp BP Pulse Ox 98.4 F 60 20 117/75 96 05/26/18 07:00 05/26/18 07:00 05/26/18 07:00 05/26/18 09:53 05/26/18 07:00 Intake and Output: 05/26/18 05/26/18 06:59 18:59 Intake Total 1330 Output Total 1600 Balance -270 - Medications Medications: Current Medications Docusate Sodium (Colace) 100 mg PO DAILY [facility] Last Admin: 05/26/18 09:54 Dose: 100 mg Furosemide (Lasix) 80 mg PO BID [facility] Last Admin: 05/26/18 09:53 Dose: 80 mg Gabapentin (Neurontin) 300 mg PO TID [facility] Last Admin: 05/26/18 13:20 Dose: 300 mg Cefepime HCl (Maxipime Iv 2 Gm Premix) 2 gm in 100 mls @ 200 mls/hr IVPB Q12H [facility] PRN Reason: Protocol Stop: 05/28/18 13:46 Last Admin: 05/26/18 13:20 Dose: 200 mls/hr Linezolid (Zyvox 600mg/300ml D5w) 600 mg in 300 mls @ 200 mls/hr IVPB Q12 [facility] PRN Reason: Protocol Last Admin: 05/26/18 09:57 Dose: 200 mls/hr Insulin Human Regular (Novolin R) 0 unit SC ACHS [facility] PRN Reason: Protocol Last Admin: 05/26/18 12:15 Dose: 1 unit Levothyroxine Sodium (Synthroid) 75 mcg PO DAILY@0630 [facility] Last Admin: 05/26/18 06:31 Dose: 75 mcg Metformin HCl (Glucophage Xr) 1,000 mg PO BID [facility] Last Admin: 05/26/18 09:55 Dose: 1,000 mg Nystatin (Nystop Topical Powder) 1 applic TOP BID [facility] Last Admin: 05/26/18 10:11 Dose: 1 applic Oxycodone HCl (Oxycontin Extended Release Tab) 80 mg PO Q6 [facility] Last Admin: 05/26/18 12:01 Dose: 80 mg Oxycodone/Acetaminophen (Percocet 5/325 Mg Tab) 2 tab PO Q4H [facility] PRN Reason: Pain, severe (8-10) Stop: 05/27/18 21:14 Last Admin: 05/26/18 14:29 Dose: 2 tab Warfarin Sodium (Coumadin) 10 mg PO 1800 [facility] Stop: 05/26/18 18:01 - Labs Labs: 05/21/18 12:40 05/21/18 12:40 PT 20.6 SECONDS (9.7-12.2) H 05/26/18 07:04 INR 1.9 05/26/18 07:04 - Constitutional Appears: Non-toxic, Chronically Ill - Head Exam Head Exam: NORMOCEPHALIC - Eye Exam Eye Exam: PERRL - ENT Exam ENT Exam: Mucous Membranes Dry - Neck Exam Neck Exam: absent: Lymphadenopathy - Respiratory Exam Respiratory Exam: Decreased Breath Sounds - Cardiovascular Exam Cardiovascular Exam: REGULAR RHYTHM - GI/Abdominal Exam GI & Abdominal Exam: Distended Assessment and Plan (1) Ambulatory dysfunction Status: Acute (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
--- NOTE | 2018-05-26 15:58 | CP.PCM.PN ---
Subjective - Date & Time of Evaluation Date of Evaluation: 05/26/18 Time of Evaluation: 19:00 - Subjective Subjective: Pt seen and examined, waiting for sub acute rehab, he has left leg ulcer, generalized weakness and debility Objective - Vital Signs/Intake and Output Vital Signs (last 24 hours): Temp Pulse Resp BP Pulse Ox 98.4 F 60 20 117/75 96 05/26/18 07:00 05/26/18 07:00 05/26/18 07:00 05/26/18 09:53 05/26/18 07:00 Intake and Output: 05/26/18 05/26/18 06:59 18:59 Intake Total 1330 200 Output Total 1600 300 Balance -270 -100 - Medications Medications: Current Medications Docusate Sodium (Colace) 100 mg PO DAILY [facility] Last Admin: 05/26/18 09:54 Dose: 100 mg Furosemide (Lasix) 80 mg PO BID [facility] Last Admin: 05/26/18 09:53 Dose: 80 mg Gabapentin (Neurontin) 300 mg PO TID [facility] Last Admin: 05/26/18 13:20 Dose: 300 mg Cefepime HCl (Maxipime Iv 2 Gm Premix) 2 gm in 100 mls @ 200 mls/hr IVPB Q12H [facility] PRN Reason: Protocol Stop: 05/28/18 13:46 Last Admin: 05/26/18 13:20 Dose: 200 mls/hr Linezolid (Zyvox 600mg/300ml D5w) 600 mg in 300 mls @ 200 mls/hr IVPB Q12 [facility] PRN Reason: Protocol Last Admin: 05/26/18 09:57 Dose: 200 mls/hr Insulin Human Regular (Novolin R) 0 unit SC ACHS [facility] PRN Reason: Protocol Last Admin: 05/26/18 12:15 Dose: 1 unit Levothyroxine Sodium (Synthroid) 75 mcg PO DAILY@0630 [facility] Last Admin: 05/26/18 06:31 Dose: 75 mcg Metformin HCl (Glucophage Xr) 1,000 mg PO BID [facility] Last Admin: 05/26/18 09:55 Dose: 1,000 mg Nystatin (Nystop Topical Powder) 1 applic TOP BID [facility] Last Admin: 05/26/18 10:11 Dose: 1 applic Oxycodone HCl (Oxycontin Extended Release Tab) 80 mg PO Q6 [facility] Last Admin: 05/26/18 12:01 Dose: 80 mg Oxycodone/Acetaminophen (Percocet 5/325 Mg Tab) 2 tab PO Q4H [facility] PRN Reason: Pain, severe (8-10) Stop: 05/27/18 21:14 Last Admin: 05/26/18 14:29 Dose: 2 tab Warfarin Sodium (Coumadin) 10 mg PO 1800 [facility] Stop: 05/26/18 18:01 - Labs Labs: 05/21/18 12:40 05/21/18 12:40 PT 20.6 SECONDS (9.7-12.2) H 05/26/18 07:04 INR 1.9 05/26/18 07:04 - Constitutional Appears: No Acute Distress - Head Exam Head Exam: ATRAUMATIC, NORMAL INSPECTION, NORMOCEPHALIC - Eye Exam Eye Exam: EOMI, Normal appearance, PERRL Pupil Exam: NORMAL ACCOMODATION, PERRL - Respiratory Exam Respiratory Exam: Clear to Ausculation Bilateral, NORMAL BREATHING PATTERN - Cardiovascular Exam Cardiovascular Exam: REGULAR RHYTHM, +S1, +S2. absent: Murmur - GI/Abdominal Exam GI & Abdominal Exam: Soft, Normal Bowel Sounds. 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
[2018-05-27] MEDS: oxyCODONE 80 mg ER Tab (oxyCONTIN) PO SCH ×4 (00:18→18:02)
[2018-05-27] MEDS: Oxycodone/Acetaminophen 5/325 mg Tab PO PRN ×5 (01:39→20:16)
[2018-05-27] MEDS: Cefepime IV 2 gm in Dextrose 2 GM/100 ML BAG IVPB SCH ×2 (01:40→13:59)
[2018-05-27] MEDS: Levothyroxine 75 MCG TAB PO SCH (06:34)
[2018-05-27] MEDS: (Novolin R) Insulin Human Regular 100 units/ml vial SC SCH ×4 (08:13→21:15)
--- NOTE | 2018-05-27 09:56 | CP.PCM.PN ---
Subjective - Date & Time of Evaluation Date of Evaluation: 05/27/18 Time of Evaluation: 09:52 - Subjective Subjective: Podiatry progress note for Dr. Laguna 57 yo male patient was seen at bedside this morning concerning bilateral leg ulcerations. Patient is resting comfortably in bed. AAO x3. Patient denies any acute pain. Patient has no other pedal complaints at this time and denies N/V/F/ C/SOB/CP. Objective - Vital Signs/Intake and Output Vital Signs (last 24 hours): Temp Pulse Resp BP Pulse Ox 98.0 F 68 20 128/75 96 05/26/18 23:25 05/26/18 23:25 05/26/18 23:25 05/26/18 23:25 05/26/18 23:25 Intake and Output: 05/27/18 05/27/18 06:59 18:59 Intake Total 1160 Output Total 3450 Balance -2290 - Medications Medications: Current Medications Docusate Sodium (Colace) 100 mg PO DAILY [facility] Last Admin: 05/26/18 09:54 Dose: 100 mg Furosemide (Lasix) 80 mg PO BID [facility] Last Admin: 05/26/18 17:18 Dose: 80 mg Gabapentin (Neurontin) 300 mg PO TID [facility] Last Admin: 05/26/18 17:18 Dose: 300 mg Cefepime HCl (Maxipime Iv 2 Gm Premix) 2 gm in 100 mls @ 200 mls/hr IVPB Q12H [facility] PRN Reason: Protocol Stop: 05/28/18 13:46 Last Admin: 05/27/18 01:40 Dose: 200 mls/hr Linezolid (Zyvox 600mg/300ml D5w) 600 mg in 300 mls @ 200 mls/hr IVPB Q12 [facility] PRN Reason: Protocol Last Admin: 05/26/18 21:00 Dose: 200 mls/hr Insulin Human Regular (Novolin R) 0 unit SC ACHS [facility] PRN Reason: Protocol Last Admin: 05/27/18 08:13 Dose: Not Given Levothyroxine Sodium (Synthroid) 75 mcg PO DAILY@0630 [facility] Last Admin: 05/27/18 06:34 Dose: 75 mcg Metformin HCl (Glucophage Xr) 1,000 mg PO BID [facility] Last Admin: 05/26/18 17:18 Dose: 1,000 mg Nystatin (Nystop Topical Powder) 1 applic TOP BID [facility] Last Admin: 05/26/18 17:22 Dose: 1 applic Oxycodone HCl (Oxycontin Extended Release Tab) 80 mg PO Q6 [facility] Last Admin: 05/27/18 05:45 Dose: 80 mg Oxycodone/Acetaminophen (Percocet 5/325 Mg Tab) 2 tab PO Q4H PRN PRN Reason: Pain, severe (8-10) Stop: 05/27/18 21:14 Last Admin: 05/27/18 06:53 Dose: 2 tab Warfarin Sodium (Coumadin) 10 mg PO 1800 [facility] Stop: 05/27/18 18:01 - Labs Labs: 05/21/18 12:40 05/21/18 12:40 PT 20.6 SECONDS (9.7-12.2) H 05/26/18 07:04 INR 1.9 05/26/18 07:04 - Constitutional Appears: Well, Non-toxic - Head Exam Head Exam: ATRAUMATIC, NORMOCEPHALIC - Extremities Exam Additional comments: Dressings are noted to be clean, dry and intact. - Neurological Exam Neurological Exam: Alert, Awake, Oriented x3 - Psychiatric Exam Psychiatric exam: Normal Affect, Normal Mood Assessment and Plan - Assessment and Plan (Free Text) Assessment: 57 yo male patient presents with chronic, recurrent wounds to bilateral lower extremities Plan: Patient seen and evaluated Plan discussed in detail with the attending, Dr. Laguna. Chart, labs, vitals; afebrile Continue local wound care; Saline cleanse, telfa, ABD, DSD JOSE b/l. Continue pain meds b/l Dressing to b/l lower extremity c/d/i Podiatry will follow the patient while in house.
[2018-05-27] MEDS: Linezolid 600 mg in D5W 300 ml 600 MG/300 ML BAG IVPB SCH ×2 (10:58→21:16)
[2018-05-27 13:40] LABS: PROTHROMBIN TIME 22.1 SECONDS (9.7-12.2)
--- NOTE | 2018-05-27 16:36 | CP.PCM.PN ---
Subjective - Date & Time of Evaluation Date of Evaluation: 05/27/18 Time of Evaluation: 17:00 - Subjective Subjective: pt is seen and examined, waiting for MOR Objective - Vital Signs/Intake and Output Vital Signs (last 24 hours): Temp Pulse Resp BP Pulse Ox 97.8 F 80 20 119/76 98 05/27/18 15:31 05/27/18 15:31 05/27/18 15:31 05/27/18 15:31 05/27/18 15:31 Intake and Output: 05/27/18 05/27/18 06:59 18:59 Intake Total 1160 900 Output Total 3450 1000 Balance -2290 -100 - Medications Medications: Current Medications Docusate Sodium (Colace) 100 mg PO DAILY [facility] Last Admin: 05/27/18 10:58 Dose: 100 mg Furosemide (Lasix) 80 mg PO BID [facility] Last Admin: 05/27/18 10:58 Dose: 80 mg Gabapentin (Neurontin) 300 mg PO TID [facility] Last Admin: 05/27/18 13:59 Dose: 300 mg Cefepime HCl (Maxipime Iv 2 Gm Premix) 2 gm in 100 mls @ 200 mls/hr IVPB Q12H [facility] PRN Reason: Protocol Stop: 05/28/18 13:46 Last Admin: 05/27/18 13:59 Dose: 200 mls/hr Linezolid (Zyvox 600mg/300ml D5w) 600 mg in 300 mls @ 200 mls/hr IVPB Q12 [facility] PRN Reason: Protocol Last Admin: 05/27/18 10:58 Dose: 200 mls/hr Insulin Human Regular (Novolin R) 0 unit SC ACHS [facility] PRN Reason: Protocol Last Admin: 05/27/18 12:20 Dose: 2 unit Levothyroxine Sodium (Synthroid) 75 mcg PO DAILY@0630 [facility] Last Admin: 05/27/18 06:34 Dose: 75 mcg Metformin HCl (Glucophage Xr) 1,000 mg PO BID [facility] Last Admin: 05/27/18 10:58 Dose: 1,000 mg Nystatin (Nystop Topical Powder) 1 applic TOP BID [facility] Last Admin: 05/27/18 11:00 Dose: 1 applic Oxycodone HCl (Oxycontin Extended Release Tab) 80 mg PO Q6 [facility] Last Admin: 05/27/18 12:21 Dose: 80 mg Oxycodone/Acetaminophen (Percocet 5/325 Mg Tab) 2 tab PO Q4H PRN PRN Reason: Pain, severe (8-10) Stop: 05/27/18 21:14 Last Admin: 05/27/18 16:04 Dose: 2 tab Warfarin Sodium (Coumadin) 10 mg PO 1800 [facility] Stop: 05/27/18 18:01 - Labs Labs: 05/21/18 12:40 05/21/18 12:40 PT 22.1 SECONDS (9.7-12.2) H 05/27/18 13:29 INR 2.0 05/27/18 13:29 Assessment and Plan (1) Ambulatory dysfunction Status: Acute (2) Chronic skin ulcer of lower leg Status: Acute (3) Diabetes Status: Acute (4) Impaired mobility and ADLs Status: Acute (5) Nonhealing ulcer of left lower extremity Status: Acute (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
[2018-05-28] MEDS: oxyCODONE 80 mg ER Tab (oxyCONTIN) PO SCH ×4 (00:33→18:33)
[2018-05-28] MEDS: Cefepime IV 2 gm in Dextrose 2 GM/100 ML BAG IVPB SCH ×2 (02:13→12:45)
[2018-05-28] MEDS: Levothyroxine 75 MCG TAB PO SCH (06:03)
[2018-05-28 07:20] LABS: PROTHROMBIN TIME 21.9 SECONDS (9.7-12.2)
[2018-05-28] MEDS: Oxycodone/Acetaminophen 5/325 mg Tab PO PRN ×4 (07:26→21:08)
[2018-05-28] MEDS: (Novolin R) Insulin Human Regular 100 units/ml vial SC SCH ×4 (07:47→23:45)
[2018-05-28] MEDS: Linezolid 600 mg in D5W 300 ml 600 MG/300 ML BAG IVPB SCH ×2 (10:10→23:46)
--- NOTE | 2018-05-28 11:16 | CP.PCM.PN ---
Subjective - Date & Time of Evaluation Date of Evaluation: 05/28/18 Time of Evaluation: 11:13 - Subjective Subjective: Podiatry progress note for attending Dr. Laguna 57 yo male patient was seen and evaluated at bedside this morning for his bilateral leg ulcerations. Patient is resting comfortably in bed AAO x3 and not in acute distress. Patient admits to pain when changing dressing. Patient has no other pedal complaints at this time and denies N/V/F/C/SOB/CP recently. Objective - Vital Signs/Intake and Output Vital Signs (last 24 hours): Temp Pulse Resp BP Pulse Ox 97.8 F 81 18 137/68 97 05/28/18 07:00 05/28/18 07:00 05/28/18 07:00 05/28/18 10:09 05/28/18 07:00 Intake and Output: 05/28/18 05/28/18 06:59 18:59 Intake Total 750 Output Total 500 Balance 250 - Medications Medications: Current Medications Docusate Sodium (Colace) 100 mg PO DAILY [facility] Last Admin: 05/28/18 10:09 Dose: 100 mg Furosemide (Lasix) 80 mg PO BID [facility] Last Admin: 05/28/18 10:09 Dose: 80 mg Gabapentin (Neurontin) 300 mg PO TID [facility] Last Admin: 05/28/18 10:10 Dose: 300 mg Cefepime HCl (Maxipime Iv 2 Gm Premix) 2 gm in 100 mls @ 200 mls/hr IVPB Q12H [facility] PRN Reason: Protocol Stop: 05/28/18 13:46 Last Admin: 05/28/18 02:13 Dose: 200 mls/hr Linezolid (Zyvox 600mg/300ml D5w) 600 mg in 300 mls @ 200 mls/hr IVPB Q12 [facility] PRN Reason: Protocol Last Admin: 05/28/18 10:10 Dose: 200 mls/hr Insulin Human Regular (Novolin R) 0 unit SC ACHS [facility] PRN Reason: Protocol Last Admin: 05/28/18 07:47 Dose: Not Given Levothyroxine Sodium (Synthroid) 75 mcg PO DAILY@0630 [facility] Last Admin: 05/28/18 06:03 Dose: 75 mcg Metformin HCl (Glucophage Xr) 1,000 mg PO BID [facility] Last Admin: 05/28/18 10:09 Dose: 1,000 mg Nystatin (Nystop Topical Powder) 1 applic TOP BID [facility] Last Admin: 05/28/18 10:09 Dose: 1 applic Oxycodone HCl (Oxycontin Extended Release Tab) 80 mg PO Q6 [facility] Last Admin: 05/28/18 06:03 Dose: 80 mg Oxycodone/Acetaminophen (Percocet 5/325 Mg Tab) 2 tab PO Q4H PRN PRN Reason: pain Stop: 05/30/18 23:24 Last Admin: 05/28/18 07:26 Dose: 2 tab - Labs Labs: 05/21/18 12:40 05/21/18 12:40 PT 21.9 SECONDS (9.7-12.2) H 05/28/18 07:04 INR 2.0 05/28/18 07:04 - Constitutional Appears: Non-toxic, No Acute Distress - Extremities Exam Additional comments: Lower extremity focused exam: Vasc: Non-palpable pedal pulses due to edema B/L, Temp gradient warm to warm, Cap refill < 3 sec to all digits, +1 pitting edema to Bilaterally distal to tibial tuberosity Neuro: protective sensation mildly diminished Derm:Bilateral leg multiple ulcers noted at both legs. L worse than R. L side ulcers mainly posteromedial to the calf with serous drainage, No malodour , sharp edges, surrounder by erythema, Proximal ulcer was bleeding, base is granular, fibrotic 50:50. No tracking, No undermining, No probig to bone. R side: circumferencial colour and sking changes with multiple almost healed superficila ulcers with no malodor, sharp edges. and fibrotic granular base 50: 50. No tracking, No undermining no probing to bone. ORTHO: Severe pain on palpation of posterior and medial L leg. Minimal pain on palpation of R leg - Neurological Exam Neurological Exam: Alert, Awake, Oriented x3 - Psychiatric Exam Psychiatric exam: Normal Affect, Normal Mood Assessment and Plan - Assessment and Plan (Free Text) Assessment: 57 Y/O M patient seen and evaluated for multiple chronic recurrent venous stasis ulcers. Plan: Patient seen and evaluated at the bedside. Plan discussed in details with attending Luz Elena Mendoza Labs and vitals reviewed: afebrile Dressing change done using Telfa, ABD, DSD, Kerlix and acebandage Patient tolerated the dressing change well. Podiatry continue F/U patient in house
--- NOTE | 2018-05-28 17:37 | CP.PCM.PN ---
Subjective - Date & Time of Evaluation Date of Evaluation: 05/28/18 Time of Evaluation: 08:00 - Subjective Subjective: severe bilat leg ulcers persist iv rx in progress no new positive cultures wound care in progress Objective - Vital Signs/Intake and Output Vital Signs (last 24 hours): Temp Pulse Resp BP Pulse Ox 98.4 F 77 20 124/70 99 05/28/18 17:01 05/28/18 17:01 05/28/18 17:01 05/28/18 17:01 05/28/18 17:01 Intake and Output: 05/28/18 05/28/18 06:59 18:59 Intake Total 750 880 Output Total 500 Balance 250 880 - Medications Medications: Current Medications Docusate Sodium (Colace) 100 mg PO DAILY [facility] Last Admin: 05/28/18 10:09 Dose: 100 mg Furosemide (Lasix) 80 mg PO BID [facility] Last Admin: 05/28/18 10:09 Dose: 80 mg Gabapentin (Neurontin) 300 mg PO TID [facility] Last Admin: 05/28/18 13:37 Dose: 300 mg Linezolid (Zyvox 600mg/300ml D5w) 600 mg in 300 mls @ 200 mls/hr IVPB Q12 [facility] PRN Reason: Protocol Last Admin: 05/28/18 10:10 Dose: 200 mls/hr Insulin Human Regular (Novolin R) 0 unit SC ACHS [facility] PRN Reason: Protocol Last Admin: 05/28/18 17:30 Dose: Not Given Levothyroxine Sodium (Synthroid) 75 mcg PO DAILY@0630 [facility] Last Admin: 05/28/18 06:03 Dose: 75 mcg Metformin HCl (Glucophage Xr) 1,000 mg PO BID [facility] Last Admin: 05/28/18 10:09 Dose: 1,000 mg Nystatin (Nystop Topical Powder) 1 applic TOP BID [facility] Last Admin: 05/28/18 10:09 Dose: 1 applic Oxycodone HCl (Oxycontin Extended Release Tab) 80 mg PO Q6 [facility] Last Admin: 05/28/18 12:35 Dose: 80 mg Oxycodone/Acetaminophen (Percocet 5/325 Mg Tab) 2 tab PO Q4H PRN PRN Reason: pain Stop: 05/30/18 23:24 Last Admin: 05/28/18 15:30 Dose: 2 tab Warfarin Sodium (Coumadin) 10 mg PO 1800 [facility] Stop: 05/28/18 18:01 - Labs Labs: 05/21/18 12:40 05/21/18 12:40 PT 21.9 SECONDS (9.7-12.2) H 05/28/18 07:04 INR 2.0 05/28/18 07:04 - Constitutional Appears: Non-toxic, Chronically Ill - Head Exam Head Exam: NORMOCEPHALIC - Eye Exam Eye Exam: PERRL - ENT Exam ENT Exam: Mucous Membranes Dry - Neck Exam Neck Exam: absent: Lymphadenopathy - Respiratory Exam Respiratory Exam: Decreased Breath Sounds - Cardiovascular Exam Cardiovascular Exam: REGULAR RHYTHM - GI/Abdominal Exam GI & Abdominal Exam: Distended - Rectal Exam Rectal Exam: Deferred - Exam Exam: NORMAL INSPECTION - Extremities Exam Extremities Exam: Pedal Edema Additional comments: Lower extremity focused exam: Vasc: Non-palpable pedal pulses due to edema B/L, Temp gradient warm to warm, Cap refill < 3 sec to all digits, +1 pitting edema to Bilaterally distal to tibial tuberosity Neuro: protective sensation mildly diminished Derm:Bilateral leg multiple ulcers noted at both legs. L worse than R. L side ulcers mainly posteromedial to the calf with serous drainage, No malodour , sharp edges, surrounder by erythema, Proximal ulcer was bleeding, base is granular, fibrotic 50:50. No tracking, No undermining, No probig to bone. R side: circumferencial colour and sking changes with multiple almost healed superficila ulcers with no malodor, sharp edges. and fibrotic granular base 50: 50. No tracking, No undermining no probing to bone. ORTHO: Severe pain on palpation of posterior and medial L leg. Minimal pain on palpation of R leg - Back Exam Back Exam: absent: CVA tenderness (L), CVA tenderness (R) - Neurological Exam Neurological Exam: Alert, Awake, Oriented x3 - Psychiatric Exam Psychiatric exam: Depressed - Skin Skin Exam: Dry Assessment and Plan (1) Ambulatory dysfunction Status: Acute (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
--- NOTE | 2018-05-28 23:11 | CP.PCM.PN ---
Subjective - Date & Time of Evaluation Date of Evaluation: 05/28/18 Time of Evaluation: 21:00 - Subjective Subjective: pt seen and examined severe bilat leg ulcers persistent Iv rx in progress no new positive cultures wound care in progress Objective - Vital Signs/Intake and Output Vital Signs (last 24 hours): Temp Pulse Resp BP Pulse Ox 98.4 F 77 20 124/70 99 05/28/18 17:01 05/28/18 17:01 05/28/18 17:01 05/28/18 18:30 05/28/18 17:01 Intake and Output: 05/28/18 05/29/18 18:59 06:59 Intake Total 880 Balance 880 - Medications Medications: Current Medications Docusate Sodium (Colace) 100 mg PO DAILY [facility] Last Admin: 05/28/18 10:09 Dose: 100 mg Furosemide (Lasix) 80 mg PO BID [facility] Last Admin: 05/28/18 18:30 Dose: 80 mg Gabapentin (Neurontin) 300 mg PO TID [facility] Last Admin: 05/28/18 18:34 Dose: 300 mg Linezolid (Zyvox 600mg/300ml D5w) 600 mg in 300 mls @ 200 mls/hr IVPB Q12 [facility] PRN Reason: Protocol Last Admin: 05/28/18 10:10 Dose: 200 mls/hr Insulin Human Regular (Novolin R) 0 unit SC ACHS [facility] PRN Reason: Protocol Last Admin: 05/28/18 17:30 Dose: Not Given Levothyroxine Sodium (Synthroid) 75 mcg PO DAILY@0630 [facility] Last Admin: 05/28/18 06:03 Dose: 75 mcg Metformin HCl (Glucophage Xr) 1,000 mg PO BID [facility] Last Admin: 05/28/18 18:31 Dose: 1,000 mg Nystatin (Nystop Topical Powder) 1 applic TOP BID [facility] Last Admin: 05/28/18 18:38 Dose: 1 applic Oxycodone HCl (Oxycontin Extended Release Tab) 80 mg PO Q6 [facility] Last Admin: 05/28/18 18:33 Dose: 80 mg Oxycodone/Acetaminophen (Percocet 5/325 Mg Tab) 2 tab PO Q4H PRN PRN Reason: pain Stop: 05/30/18 23:24 Last Admin: 05/28/18 21:08 Dose: 2 tab - Labs Labs: 05/21/18 12:40 05/21/18 12:40 PT 21.9 SECONDS (9.7-12.2) H 05/28/18 07:04 INR 2.0 05/28/18 07:04 Assessment and Plan (1) Ambulatory dysfunction Status: Acute (2) Chronic skin ulcer of lower leg Status: Acute (3) Diabetes Status: Acute (4) Impaired mobility and ADLs Status: Acute (5) Nonhealing ulcer of left lower extremity Status: Acute (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
[2018-05-29] MEDS: oxyCODONE 80 mg ER Tab (oxyCONTIN) PO SCH ×5 (00:15→23:47)
[2018-05-29] MEDS: Oxycodone/Acetaminophen 5/325 mg Tab PO PRN ×4 (02:49→19:49)
[2018-05-29] MEDS: Levothyroxine 75 MCG TAB PO SCH (06:12)
[2018-05-29 06:49] LABS: INR 2.3; PROTHROMBIN TIME 24.8 SECONDS (9.7-12.2)
[2018-05-29] MEDS: (Novolin R) Insulin Human Regular 100 units/ml vial SC SCH ×4 (07:38→21:50)
[2018-05-29] MEDS: Linezolid 600 mg in D5W 300 ml 600 MG/300 ML BAG IVPB SCH ×2 (09:36→21:53)
--- NOTE | 2018-05-29 23:54 | CP.PCM.PN ---
Subjective - Date & Time of Evaluation Date of Evaluation: 05/29/18 Time of Evaluation: 18:00 - Subjective Subjective: Pt seen and examined at bedside Objective - Vital Signs/Intake and Output Vital Signs (last 24 hours): Temp Pulse Resp BP Pulse Ox 98.2 F 90 20 113/73 96 05/29/18 15:00 05/29/18 15:00 05/29/18 15:00 05/29/18 17:44 05/29/18 15:00 Intake and Output: 05/29/18 05/30/18 18:59 06:59 Intake Total 750 500 Output Total 600 Balance 750 -100 - Medications Medications: Current Medications Docusate Sodium (Colace) 100 mg PO DAILY [facility] Last Admin: 05/29/18 09:34 Dose: 100 mg Furosemide (Lasix) 80 mg PO BID [facility] Last Admin: 05/29/18 17:44 Dose: 80 mg Gabapentin (Neurontin) 300 mg PO TID [facility] Last Admin: 05/29/18 17:45 Dose: 300 mg Linezolid (Zyvox 600mg/300ml D5w) 600 mg in 300 mls @ 200 mls/hr IVPB Q12 [facility] PRN Reason: Protocol Last Admin: 05/29/18 21:53 Dose: 200 mls/hr Insulin Human Regular (Novolin R) 0 unit SC ACHS [facility] PRN Reason: Protocol Last Admin: 05/29/18 21:50 Dose: Not Given Levothyroxine Sodium (Synthroid) 75 mcg PO DAILY@0630 [facility] Last Admin: 05/29/18 06:12 Dose: 75 mcg Metformin HCl (Glucophage Xr) 1,000 mg PO BID [facility] Last Admin: 05/29/18 17:44 Dose: 1,000 mg Nystatin (Nystop Topical Powder) 1 applic TOP BID [facility] Last Admin: 05/29/18 17:48 Dose: 1 applic Oxycodone HCl (Oxycontin Extended Release Tab) 80 mg PO Q6 [facility] Last Admin: 05/29/18 23:47 Dose: 80 mg Oxycodone/Acetaminophen (Percocet 5/325 Mg Tab) 2 tab PO Q4H PRN PRN Reason: pain Stop: 05/30/18 23:24 Last Admin: 05/29/18 19:49 Dose: 2 tab - Labs Labs: 05/21/18 12:40 05/21/18 12:40 PT 24.8 SECONDS (9.7-12.2) H 05/29/18 06:36 INR 2.3 05/29/18 06:36 Assessment and Plan (1) Ambulatory dysfunction Status: Acute (2) Chronic skin ulcer of lower leg Status: Acute (3) Diabetes Status: Acute (4) Impaired mobility and ADLs Status: Acute (5) Nonhealing ulcer of left lower extremity Status: Acute (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
[2018-05-30] MEDS: Oxycodone/Acetaminophen 5/325 mg Tab PO PRN ×5 (01:09→20:08)
[2018-05-30] MEDS: Levothyroxine 75 MCG TAB PO SCH (06:06)
[2018-05-30] MEDS: oxyCODONE 80 mg ER Tab (oxyCONTIN) PO SCH ×3 (06:06→18:10)
[2018-05-30] MEDS: (Novolin R) Insulin Human Regular 100 units/ml vial SC SCH ×4 (07:30→21:50)
[2018-05-30 08:17] LABS: INR 2.4; PROTHROMBIN TIME 26.3 SECONDS (9.7-12.2)
--- NOTE | 2018-05-30 08:49 | CP.PCM.PN ---
Subjective - Date & Time of Evaluation Date of Evaluation: 05/30/18 Time of Evaluation: 08:46 - Subjective Subjective: Podiatry Progress Note - Dr. Laguna 57 y/o male patient was seen and evaluated at bedside this morning with attending Dr. Laguna for bilateral venous stasis leg ulcerations. Patient is resting comfortably in bed AAO x3 and not in acute distress. Patient has no other pedal complaints at this time and denies N/V/F/C/SOB/CP recently. Objective - Vital Signs/Intake and Output Vital Signs (last 24 hours): Temp Pulse Resp BP Pulse Ox 98.4 F 76 20 118/82 95 05/30/18 07:00 05/30/18 07:00 05/30/18 07:00 05/30/18 07:00 05/30/18 07:00 Intake and Output: 05/30/18 05/30/18 06:59 18:59 Intake Total 790 Output Total 1400 Balance -610 - Medications Medications: Current Medications Docusate Sodium (Colace) 100 mg PO DAILY [facility] Last Admin: 05/29/18 09:34 Dose: 100 mg Furosemide (Lasix) 80 mg PO BID [facility] Last Admin: 05/29/18 17:44 Dose: 80 mg Gabapentin (Neurontin) 300 mg PO TID [facility] Last Admin: 05/29/18 17:45 Dose: 300 mg Linezolid (Zyvox 600mg/300ml D5w) 600 mg in 300 mls @ 200 mls/hr IVPB Q12 [facility] PRN Reason: Protocol Last Admin: 05/29/18 21:53 Dose: 200 mls/hr Insulin Human Regular (Novolin R) 0 unit SC ACHS [facility] PRN Reason: Protocol Last Admin: 05/29/18 21:50 Dose: Not Given Levothyroxine Sodium (Synthroid) 75 mcg PO DAILY@0630 [facility] Last Admin: 05/30/18 06:06 Dose: 75 mcg Metformin HCl (Glucophage Xr) 1,000 mg PO BID [facility] Last Admin: 05/29/18 17:44 Dose: 1,000 mg Nystatin (Nystop Topical Powder) 1 applic TOP BID [facility] Last Admin: 05/29/18 17:48 Dose: 1 applic Oxycodone HCl (Oxycontin Extended Release Tab) 80 mg PO Q6 [facility] Last Admin: 05/30/18 06:06 Dose: 80 mg Oxycodone/Acetaminophen (Percocet 5/325 Mg Tab) 2 tab PO Q4H PRN PRN Reason: pain Stop: 05/30/18 23:24 Last Admin: 05/30/18 07:15 Dose: 2 tab - Labs Labs: 05/21/18 12:40 05/21/18 12:40 PT 26.3 SECONDS (9.7-12.2) H 05/30/18 07:59 INR 2.4 05/30/18 07:59 - Constitutional Appears: Well, Non-toxic, No Acute Distress - Extremities Exam Additional comments: Lower extremity focused exam: Vasc: Non-palpable pedal pulses due to edema B/L, Temp gradient warm to warm, CFT < 3 sec to all digits, +1 pitting edema to bilaterally distal to tibial tuberosity Neuro: protective sensation mildly diminished Derm: Bilateral leg multiple ulcers noted at both legs. L worse than R. L side ulcers mainly posteromedial to the calf with serous drainage, No malodor , sharp edges, surrounded by erythema, Proximal ulcer was bleeding, base is granular, fibrotic 50/50. No tracking, No undermining, No probig to bone. R side: circumferential color and skin changes with multiple almost healed superficial ulcers with no malodor, sharp edges and fibrotic granular base 50: 50. No tracking, No undermining no probing to bone. ORTHO: Severe pain on palpation of posterior and medial L leg. Minimal pain on palpation of R leg - Neurological Exam Neurological Exam: Alert, Awake, Oriented x3 - Psychiatric Exam Psychiatric exam: Normal Affect, Normal Mood Assessment and Plan - Assessment and Plan (Free Text) Assessment: 57 y/o M patient seen and evaluated for multiple chronic recurrent venous stasis ulcers Plan: Patient seen and evaluated at the bedside with attending Luz Elena Mendoza Labs and vitals reviewed: afebrile Wounds cleaned with saline and dressings applied with Telfa, ABD, DSD, Kerlix and JOSE Patient tolerated the dressing change well Podiatry continue F/U patient in house
[2018-05-30] MEDS: Linezolid 600 mg in D5W 300 ml 600 MG/300 ML BAG IVPB SCH ×2 (09:28→22:33)
--- NOTE | 2018-05-30 14:15 | CP.PCM.PN ---
Subjective - Date & Time of Evaluation Date of Evaluation: 05/30/18 Time of Evaluation: 08:00 - Subjective Subjective: 57 y/o male patient was seen and evaluated at bedside this morning with attending Dr. Laguna for bilateral venous stasis leg ulcerations. Patient is resting comfortably in bed AAO x3 and not in acute distress. Patient has no other pedal complaints at this time and denies N/V/F/C/SOB/CP recently. Objective - Vital Signs/Intake and Output Vital Signs (last 24 hours): Temp Pulse Resp BP Pulse Ox 98.4 F 76 20 118/80 95 05/30/18 07:00 05/30/18 07:00 05/30/18 07:00 05/30/18 09:23 05/30/18 07:00 Intake and Output: 05/30/18 05/30/18 06:59 18:59 Intake Total 790 Output Total 1400 Balance -610 - Medications Medications: Current Medications Docusate Sodium (Colace) 100 mg PO DAILY [facility] Last Admin: 05/30/18 09:22 Dose: 100 mg Furosemide (Lasix) 80 mg PO BID [facility] Last Admin: 05/30/18 09:23 Dose: 80 mg Gabapentin (Neurontin) 300 mg PO TID [facility] Last Admin: 05/30/18 13:02 Dose: 300 mg Linezolid (Zyvox 600mg/300ml D5w) 600 mg in 300 mls @ 200 mls/hr IVPB Q12 [facility] PRN Reason: Protocol Last Admin: 05/30/18 09:28 Dose: 200 mls/hr Insulin Human Regular (Novolin R) 0 unit SC ACHS [facility] PRN Reason: Protocol Last Admin: 05/30/18 12:09 Dose: Not Given Levothyroxine Sodium (Synthroid) 75 mcg PO DAILY@0630 [facility] Last Admin: 05/30/18 06:06 Dose: 75 mcg Metformin HCl (Glucophage Xr) 1,000 mg PO BID [facility] Last Admin: 05/30/18 09:22 Dose: 1,000 mg Nystatin (Nystop Topical Powder) 1 applic TOP BID [facility] Last Admin: 05/30/18 09:25 Dose: 1 applic Oxycodone HCl (Oxycontin Extended Release Tab) 80 mg PO Q6 [facility] Last Admin: 05/30/18 12:28 Dose: 80 mg Oxycodone HCl (Oxycontin Extended Release Tab) 80 mg PO Q6 [facility] Oxycodone/Acetaminophen (Percocet 5/325 Mg Tab) 2 tab PO Q4H PRN PRN Reason: pain Stop: 05/30/18 23:24 Last Admin: 05/30/18 11:17 Dose: 2 tab - Labs Labs: 05/21/18 12:40 05/21/18 12:40 PT 26.3 SECONDS (9.7-12.2) H 05/30/18 07:59 INR 2.4 05/30/18 07:59 - Constitutional Appears: Non-toxic, Chronically Ill - Head Exam Head Exam: NORMOCEPHALIC - Eye Exam Eye Exam: PERRL - ENT Exam ENT Exam: Mucous Membranes Dry - Neck Exam Neck Exam: absent: Lymphadenopathy - Respiratory Exam Respiratory Exam: Decreased Breath Sounds - Cardiovascular Exam Cardiovascular Exam: REGULAR RHYTHM - GI/Abdominal Exam GI & Abdominal Exam: Distended, Soft - Rectal Exam Rectal Exam: Deferred - Exam Exam: NORMAL INSPECTION - Extremities Exam Extremities Exam: Pedal Edema, Tenderness. absent: Calf Tenderness - Back Exam Back Exam: absent: CVA tenderness (L), CVA tenderness (R) - Neurological Exam Neurological Exam: Alert, Awake, CN II-XII Intact, Oriented x3 Assessment and Plan (1) Ambulatory dysfunction Status: Acute (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 - Assessment and Plan (Free Text) Assessment: CONT IV RX AND WOUND CARE
[2018-05-30] MEDS: Cefepime IV 1 gm in Dextrose 1 GM/50 ML BAG IVPB SCH (18:09)
[2018-05-31] MEDS: oxyCODONE 80 mg ER Tab (oxyCONTIN) PO SCH ×4 (00:08→17:50)
[2018-05-31] MEDS: Oxycodone/Acetaminophen 5/325 mg Tab PO PRN ×5 (00:48→18:40)
--- NOTE | 2018-05-31 03:17 | CP.PCM.PN ---
Subjective - Date & Time of Evaluation Date of Evaluation: 05/30/18 Time of Evaluation: 17:00 - Subjective Subjective: Patient is resting comfortably in bed AAO x3 and not in acute distress. Patient has no other pedal complaints at this time and denies N/V/F/C/SOB/CP recently. Objective - Vital Signs/Intake and Output Vital Signs (last 24 hours): Temp Pulse Resp BP Pulse Ox 98.1 F 76 20 115/70 96 05/30/18 23:20 05/30/18 23:20 05/30/18 23:20 05/30/18 23:20 05/30/18 23:20 Intake and Output: 05/30/18 05/31/18 18:59 06:59 Intake Total 900 500 Output Total 700 Balance 900 -200 - Medications Medications: Current Medications Docusate Sodium (Colace) 100 mg PO DAILY [facility] Last Admin: 05/30/18 09:22 Dose: 100 mg Furosemide (Lasix) 80 mg PO BID [facility] Last Admin: 05/30/18 18:11 Dose: 80 mg Gabapentin (Neurontin) 300 mg PO TID [facility] Last Admin: 05/30/18 18:11 Dose: 300 mg Linezolid (Zyvox 600mg/300ml D5w) 600 mg in 300 mls @ 200 mls/hr IVPB Q12 [facility] PRN Reason: Protocol Last Admin: 05/30/18 22:33 Dose: 200 mls/hr Cefepime HCl (Maxipime Iv 1 Gm Premix) 1 gm in 50 mls @ 100 mls/hr IVPB Q12H [facility] PRN Reason: Protocol Last Admin: 05/30/18 18:09 Dose: 100 mls/hr Insulin Human Regular (Novolin R) 0 unit SC ACHS [facility] PRN Reason: Protocol Last Admin: 05/30/18 21:50 Dose: Not Given Levothyroxine Sodium (Synthroid) 75 mcg PO DAILY@0630 [facility] Last Admin: 05/30/18 06:06 Dose: 75 mcg Metformin HCl (Glucophage Xr) 1,000 mg PO BID [facility] Last Admin: 05/30/18 18:12 Dose: 1,000 mg Nystatin (Nystop Topical Powder) 1 applic TOP BID [facility] Last Admin: 05/30/18 18:12 Dose: 1 applic Oxycodone HCl (Oxycontin Extended Release Tab) 80 mg PO Q6 [facility] Last Admin: 05/31/18 00:08 Dose: 80 mg Oxycodone/Acetaminophen (Percocet 5/325 Mg Tab) 2 tab PO Q4H PRN PRN Reason: pain Stop: 06/02/18 23:26 Last Admin: 05/31/18 00:48 Dose: 2 tab - Labs Labs: 05/21/18 12:40 05/21/18 12:40 PT 26.3 SECONDS (9.7-12.2) H 05/30/18 07:59 INR 2.4 05/30/18 07:59 Assessment and Plan (1) Ambulatory dysfunction Status: Acute (2) Chronic skin ulcer of lower leg Status: Acute (3) Diabetes Status: Acute (4) Impaired mobility and ADLs Status: Acute (5) Nonhealing ulcer of left lower extremity Status: Acute (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
[2018-05-31] MEDS: Cefepime IV 1 gm in Dextrose 1 GM/50 ML BAG IVPB SCH ×2 (04:00→17:00)
[2018-05-31] MEDS: Levothyroxine 75 MCG TAB PO SCH (06:10)
[2018-05-31] MEDS: (Novolin R) Insulin Human Regular 100 units/ml vial SC SCH ×4 (07:30→22:30)
[2018-05-31 07:33] LABS: INR 2.5
--- NOTE | 2018-05-31 11:53 | CP.PCM.PN ---
Subjective - Date & Time of Evaluation Date of Evaluation: 05/31/18 Time of Evaluation: 11:51 - Subjective Subjective: Podiatry Progress Note - Dr. Laguna 57 year old male patient was seen and evaluated at bedside this morning with attending Dr. Laguna for bilateral venous stasis leg ulcerations. Patient is resting comfortably in bed AAO x3 and not in acute distress. Dressing is c.d.i. Patient has no other pedal complaints at this time and denies N/V/F/C/SOB/CP recently. Objective - Vital Signs/Intake and Output Vital Signs (last 24 hours): Temp Pulse Resp BP Pulse Ox 98.1 F 77 18 122/73 97 05/31/18 07:00 05/31/18 09:15 05/31/18 07:00 05/31/18 09:26 05/31/18 07:00 Intake and Output: 05/31/18 05/31/18 06:59 18:59 Intake Total 1380 Output Total 1900 Balance -520 - Medications Medications: Current Medications Docusate Sodium (Colace) 100 mg PO DAILY [facility] Last Admin: 05/31/18 09:27 Dose: 100 mg Furosemide (Lasix) 80 mg PO BID [facility] Last Admin: 05/31/18 09:26 Dose: 80 mg Gabapentin (Neurontin) 300 mg PO TID [facility] Last Admin: 05/31/18 09:26 Dose: 300 mg Linezolid (Zyvox 600mg/300ml D5w) 600 mg in 300 mls @ 200 mls/hr IVPB Q12 [facility] PRN Reason: Protocol Last Admin: 05/30/18 22:33 Dose: 200 mls/hr Cefepime HCl (Maxipime Iv 1 Gm Premix) 1 gm in 50 mls @ 100 mls/hr IVPB Q12H [facility] PRN Reason: Protocol Last Admin: 05/31/18 04:00 Dose: 100 mls/hr Insulin Human Regular (Novolin R) 0 unit SC ACHS [facility] PRN Reason: Protocol Last Admin: 05/31/18 11:27 Dose: Not Given Levothyroxine Sodium (Synthroid) 75 mcg PO DAILY@0630 [facility] Last Admin: 05/31/18 06:10 Dose: 75 mcg Metformin HCl (Glucophage Xr) 1,000 mg PO BID [facility] Last Admin: 05/31/18 09:27 Dose: 1,000 mg Nystatin (Nystop Topical Powder) 1 applic TOP BID [facility] Last Admin: 05/30/18 18:12 Dose: 1 applic Oxycodone HCl (Oxycontin Extended Release Tab) 80 mg PO Q6 [facility] Last Admin: 05/31/18 06:10 Dose: 80 mg Oxycodone/Acetaminophen (Percocet 5/325 Mg Tab) 2 tab PO Q4H PRN PRN Reason: pain Stop: 06/02/18 23:26 Last Admin: 05/31/18 09:34 Dose: 2 tab Warfarin Sodium (Coumadin) 8 mg PO 1800 [facility] Stop: 05/31/18 18:01 - Labs Labs: 05/21/18 12:40 05/21/18 12:40 PT 27.0 SECONDS (9.7-12.2) H 05/31/18 07:16 INR 2.5 05/31/18 07:16 - Constitutional Appears: Well, Non-toxic, No Acute Distress - Extremities Exam Additional comments: Dressing is c.d.i. No strikethrough noted - Neurological Exam Neurological Exam: Alert, Awake, Oriented x3 - Psychiatric Exam Psychiatric exam: Normal Affect, Normal Mood Assessment and Plan - Assessment and Plan (Free Text) Assessment: 57 year old male patient seen and evaluated for multiple chronic recurrent venous stasis ulcers Plan: Patient seen and evaluated at the bedside with attending Luz Elena Mendoza Labs and vitals reviewed: afebrile Will change dressing tomorrow morning Podiatry continue F/U patient in house
[2018-05-31] MEDS: Linezolid 600 mg in D5W 300 ml 600 MG/300 ML BAG IVPB SCH ×2 (12:51→21:44)
--- NOTE | 2018-05-31 23:43 | CP.PCM.PN ---
Subjective - Date & Time of Evaluation Date of Evaluation: 05/31/18 Time of Evaluation: 19:40 - Subjective Subjective: Pt seen & examined at bedside, pt os waiting for placement in [facility] Objective - Vital Signs/Intake and Output Vital Signs (last 24 hours): Temp Pulse Resp BP Pulse Ox 97.8 F 88 20 115/79 98 05/31/18 15:30 05/31/18 15:30 05/31/18 15:30 05/31/18 17:49 05/31/18 15:30 Intake and Output: 05/31/18 06/01/18 18:59 06:59 Intake Total 400 Balance 400 - Medications Medications: Current Medications Bacitracin (Bacitracin) 1 gm TOP DAILY [facility] Docusate Sodium (Colace) 100 mg PO DAILY [facility] Last Admin: 05/31/18 09:27 Dose: 100 mg Furosemide (Lasix) 80 mg PO BID [facility] Last Admin: 05/31/18 17:49 Dose: 80 mg Gabapentin (Neurontin) 300 mg PO TID [facility] Last Admin: 05/31/18 17:49 Dose: 300 mg Linezolid (Zyvox 600mg/300ml D5w) 600 mg in 300 mls @ 200 mls/hr IVPB Q12 [facility] PRN Reason: Protocol Last Admin: 05/31/18 21:44 Dose: 200 mls/hr Cefepime HCl (Maxipime Iv 1 Gm Premix) 1 gm in 50 mls @ 100 mls/hr IVPB Q12H [facility] PRN Reason: Protocol Last Admin: 05/31/18 17:00 Dose: 100 mls/hr Insulin Human Regular (Novolin R) 0 unit SC ACHS [facility] PRN Reason: Protocol Last Admin: 05/31/18 22:30 Dose: Not Given Levothyroxine Sodium (Synthroid) 75 mcg PO DAILY@0630 [facility] Last Admin: 05/31/18 06:10 Dose: 75 mcg Metformin HCl (Glucophage Xr) 1,000 mg PO BID [facility] Last Admin: 05/31/18 17:55 Dose: 1,000 mg Nystatin (Nystop Topical Powder) 1 applic TOP BID [facility] Last Admin: 05/31/18 17:52 Dose: 1 applic Oxycodone HCl (Oxycontin Extended Release Tab) 80 mg PO Q6 [facility] Last Admin: 05/31/18 17:50 Dose: 80 mg Oxycodone/Acetaminophen (Percocet 5/325 Mg Tab) 2 tab PO Q4H PRN PRN Reason: pain Stop: 06/02/18 23:26 Last Admin: 05/31/18 18:40 Dose: 2 tab - Labs Labs: 05/21/18 12:40 05/21/18 12:40 PT 27.0 SECONDS (9.7-12.2) H 05/31/18 07:16 INR 2.5 05/31/18 07:16 - Constitutional Appears: No Acute Distress - Head Exam Head Exam: ATRAUMATIC, NORMAL INSPECTION, NORMOCEPHALIC - Eye Exam Eye Exam: EOMI, Normal appearance, PERRL Pupil Exam: NORMAL ACCOMODATION, PERRL - Respiratory Exam Respiratory Exam: Decreased Breath Sounds, Wheezes, NORMAL BREATHING PATTERN - Cardiovascular Exam Cardiovascular Exam: REGULAR RHYTHM, +S1, +S2. absent: Murmur - GI/Abdominal Exam GI & Abdominal Exam: Soft, Normal Bowel Sounds. 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
[2018-06-01] MEDS: Oxycodone/Acetaminophen 5/325 mg Tab PO PRN ×5 (03:27→21:25)
[2018-06-01] MEDS: Cefepime IV 1 gm in Dextrose 1 GM/50 ML BAG IVPB SCH ×2 (03:53→16:03)
--- NOTE | 2018-06-01 04:01 | PN ---
DATE: 05/30/[address] Estrada Albright. SUBJECTIVE: The patient denies any chest pain. He is mildly short of breath at this time. PHYSICAL EXAMINATION: VITAL SIGNS: Blood pressure 115/79, heart rate 88, temperature 97.8, respirations 20. HEENT: Normocephalic. CHEST: Clear. HEART: S1, S2 regular. EXTREMITIES: 2+ pitting edema. LABORATORY DATA: Blood sugars were 95 and 148 respectively. SMA-7 on admission, sodium 141, potassium 3.8, chloride 97, CO2 of 34, glucose 116, BUN 27, creatinine 0.8. WBC nuclear scan uptake in the lower extremities, in particular in the left calf to a greater extend, the right calf consistent with without evidence of osteomyelitis. Left hand x-ray, no acute findings. Left wrist x-ray, he is infectious of the distal radius and ulna. No acute abnormality ASSESSMENT: 1. Bilateral leg cellulitis. 2. Coronary artery disease. 3. Mild aortic insufficiency noted on an echocardiographic study performed in 05/2016. 4. Uncontrolled diabetes mellitus. RECOMMENDATIONS: Continue Glucophage 1 gm twice a day, Lasix 80 mg orally twice day, IV cefepime at 1 gm every 12 hours, Synthroid 75 mcg once a day, Zyvox 300 mg intravenously every 12 hours. The patient's INR is 2.4 and Coumadin will be ordered at 8 mg. Hubert Moses MD
[2018-06-01] MEDS: Levothyroxine 75 MCG TAB PO SCH (06:13)
[2018-06-01] MEDS: oxyCODONE 80 mg ER Tab (oxyCONTIN) PO SCH ×4 (06:13→18:01)
[2018-06-01] MEDS: (Novolin R) Insulin Human Regular 100 units/ml vial SC SCH ×4 (07:32→22:19)
[2018-06-01 07:52] LABS: INR 2.6; PROTHROMBIN TIME 28.7 SECONDS (9.7-12.2)
[2018-06-01] MEDS: Linezolid 600 mg in D5W 300 ml 600 MG/300 ML BAG IVPB SCH ×2 (10:36→21:26)
[2018-06-01] MEDS: Bacitracin Ointment 30 GM TUBE TOP SCH (10:38)
--- NOTE | 2018-06-01 11:56 | CP.PCM.PN ---
Subjective - Date & Time of Evaluation Date of Evaluation: 06/01/18 Time of Evaluation: 11:51 - Subjective Subjective: Podiatry Progress Note - Dr. Laguna 57 year old male patient was seen and evaluated at bedside for bilateral venous stasis leg ulcerations. Patient is resting comfortably in bed AAOx3 and not in acute distress. Denies of having any acute overnight events. Patient has no other pedal complaints at this time and denies N/V/F/C/SOB/CP recently. Objective - Vital Signs/Intake and Output Vital Signs (last 24 hours): Temp Pulse Resp BP Pulse Ox 98.4 F 72 18 148/78 98 06/01/18 07:00 06/01/18 07:00 06/01/18 07:00 06/01/18 10:33 06/01/18 07:00 Intake and Output: 06/01/18 06/01/18 06:59 18:59 Intake Total 940 Output Total 1600 Balance -660 - Medications Medications: Current Medications Bacitracin (Bacitracin) 1 gm TOP DAILY [facility] Last Admin: 06/01/18 10:38 Dose: 1 applic Docusate Sodium (Colace) 100 mg PO DAILY [facility] Last Admin: 06/01/18 10:32 Dose: 100 mg Furosemide (Lasix) 80 mg PO BID [facility] Last Admin: 06/01/18 10:33 Dose: 80 mg Gabapentin (Neurontin) 300 mg PO TID [facility] Last Admin: 06/01/18 10:33 Dose: 300 mg Linezolid (Zyvox 600mg/300ml D5w) 600 mg in 300 mls @ 200 mls/hr IVPB Q12 [facility] PRN Reason: Protocol Last Admin: 06/01/18 10:36 Dose: 200 mls/hr Cefepime HCl (Maxipime Iv 1 Gm Premix) 1 gm in 50 mls @ 100 mls/hr IVPB Q12H [facility] PRN Reason: Protocol Last Admin: 06/01/18 03:53 Dose: 100 mls/hr Insulin Human Regular (Novolin R) 0 unit SC ACHS [facility] PRN Reason: Protocol Last Admin: 06/01/18 07:32 Dose: Not Given Levothyroxine Sodium (Synthroid) 75 mcg PO DAILY@0630 [facility] Last Admin: 06/01/18 06:13 Dose: 75 mcg Metformin HCl (Glucophage Xr) 1,000 mg PO BID [facility] Last Admin: 06/01/18 10:37 Dose: 1,000 mg Nystatin (Nystop Topical Powder) 1 applic TOP BID [facility] Last Admin: 06/01/18 10:39 Dose: 1 applic Oxycodone HCl (Oxycontin Extended Release Tab) 80 mg PO Q6 [facility] Last Admin: 06/01/18 06:13 Dose: 80 mg Oxycodone/Acetaminophen (Percocet 5/325 Mg Tab) 2 tab PO Q4H PRN PRN Reason: pain Stop: 06/02/18 23:26 Last Admin: 06/01/18 07:42 Dose: 2 tab - Labs Labs: 05/21/18 12:40 05/21/18 12:40 PT 28.7 SECONDS (9.7-12.2) H 06/01/18 07:41 INR 2.6 06/01/18 07:41 - Constitutional Appears: Well, Non-toxic, No Acute Distress - Extremities Exam Additional comments: Lower extremity focused exam: Vasc: Non-palpable pedal pulses due to edema B/L, Temp gradient warm to warm, CFT < 3 sec to all digits, +1 pitting edema to bilaterally distal to tibial tuberosity Neuro: protective sensation mildly diminished Derm: Bilateral leg multiple ulcers noted at both legs. L worse than R. L side ulcers mainly posteromedial to the calf with serous drainage, No malodor , sharp edges, surrounded by erythema, Proximal ulcer was bleeding, base is granular, fibrotic 50/50. No tracking, No undermining, No probig to bone. R side: circumferential color and skin changes with multiple almost healed superficial ulcers with no malodor, sharp edges and fibrotic granular base 50: 50. No tracking, No undermining no probing to bone. ORTHO: Severe pain on palpation of posterior and medial L leg. Minimal pain on palpation of R leg - Neurological Exam Neurological Exam: Alert, Awake, Oriented x3 - Psychiatric Exam Psychiatric exam: Normal Affect, Normal Mood Assessment and Plan - Assessment and Plan (Free Text) Assessment: 57 year old male patient seen and evaluated for multiple chronic recurrent venous stasis ulcers Plan: Patient seen and evaluated Discussed in details with attending Luz Elena Mendoza Labs and vitals reviewed: afebrile Wounds cleaned with saline and dressings applied with bacitracin, xeroform, ABD , DSD, Kerlix and JOSE Patient tolerated the dressing change well Patient is stable from podiatry standpoint Will continue every other day dressing changes while patient is in-house
--- NOTE | 2018-06-01 21:27 | PN ---
DATE: 06/01/[address] Estrada Albright. SUBJECTIVE: The patient denies any chest pain. He is experiencing bilateral leg swelling and leg pain. PHYSICAL EXAMINATION: VITAL SIGNS: Blood pressure 105/60, heart rate 80, temperature 98.5, respirations 20. HEENT: Normocephalic. CHEST: Bilateral rhonchi. HEART: S1 and S2 regular. EXTREMITIES: 2+ pitting edema. ASSESSMENT: 1. Bilateral leg cellulitis. 2. Bilateral deep venous thrombosis and history of pulmonary embolism in the past. 3. Mild anemia. 4. Uncontrolled diabetes mellitus. PLAN: Continue current Colace 100 mg once a day, Coumadin 8 mg will be administered today. The patient's INR today was 2.6. Continue IV Cefepime at 1 gm every 12 hours, IV Zyvox 600 mg every 12 hours, Synthroid 25 mcg daily. We will obtain BMP and CBC in a.m. as well as INR. Hubert Moses MD
[2018-06-02] MEDS: oxyCODONE 80 mg ER Tab (oxyCONTIN) PO SCH ×4 (00:09→17:59)
[2018-06-02] MEDS: Oxycodone/Acetaminophen 5/325 mg Tab PO PRN ×5 (01:53→20:11)
[2018-06-02] MEDS: Cefepime IV 1 gm in Dextrose 1 GM/50 ML BAG IVPB SCH ×2 (03:57→15:35)
[2018-06-02] MEDS: Levothyroxine 75 MCG TAB PO SCH (06:10)
[2018-06-02] MEDS: (Novolin R) Insulin Human Regular 100 units/ml vial SC SCH ×3 (08:00→21:05)
[2018-06-02 08:37] LABS: BASO % 0.8 % (0.0-2.0); EOS # 0.3 K/uL (0.0-0.7); LYMPH # 1.5 K/uL (1.0-4.3); MONO # 0.5 K/uL (0.0-0.8); RBC 4.23 Mil/uL (4.40-5.90); WHITE BLOOD COUNT 5.2 K/uL (4.8-10.8)
[2018-06-02 08:45] LABS: BLOOD UREA NITROGEN 42 mg/dL (9-20); CALCIUM 8.8 mg/dl (8.6-10.4); EOS % 5.6 % (0.0-4.0); GFR AFRICAN-AMERICAN > 60; GFR NON-AFRICAN AMERICAN 52; HEMOGLOBIN 11.7 g/dL (12.0-18.0); LYMPH % 29.4 % (20.0-40.0); MEAN CELL VOLUME 81.9 fL (80.0-94.0); MEAN CORPUSCULAR HEMOGLOBIN 27.7 pg (27.0-31.0); MEAN CORPUSCULAR HGB CONC 33.8 g/dL (33.0-37.0); MEAN PLATELET VOLUME 9.8 fL (7.2-11.7); MONO % 9.5 % (0.0-10.0); NEUT # 2.8 K/uL (1.8-7.0); NEUT % 54.7 % (50.0-75.0); NRBC % 0.3 % (0.0-2.0)
[2018-06-02 08:54] LABS: INR 2.3; PROTHROMBIN TIME 24.8 SECONDS (9.7-12.2)
[2018-06-02] MEDS: Bacitracin Ointment 30 GM TUBE TOP SCH (09:17)
[2018-06-02] MEDS: Linezolid 600 mg in D5W 300 ml 600 MG/300 ML BAG IVPB SCH ×2 (10:00→21:05)
--- NOTE | 2018-06-02 19:33 | PN ---
DATE: 06/02/2018 COVERING FOR: Dr. Estrada Albright. SUBJECTIVE: The patient complains of right foot pain and there is discharge from the right foot cellulitis. No retrosternal chest pain. PHYSICAL EXAMINATION: VITAL SIGNS: Blood pressure , heart rate 71, temperature 98.3, and respirations 20. HEENT: Normocephalic. CHEST: Clear. HEART: S1 and S2, regular. EXTREMITIES: 2+ pitting edema and bilateral leg cellulitis. LABORATORY DATA: SMA-7: Sodium 139, potassium 3.9, chloride 95, CO2 of 32, glucose 138, BUN 42, creatinine 1.4. Today's INR is 2.3. Hemoglobin and hematocrit 11.7 and 34.7, white count 5.2, platelet count 115,000. ASSESSMENT: 1. Bilateral leg cellulitis. 2. History of deep vein thrombosis with inferior vena cava filter placement. 3. Uncontrolled diabetes mellitus. 4. Hypothyroidism. 5. Prerenal azotemia. 6. Mild thrombocytopenia. PLAN: Continue IV Zyvox at 600 mg every 12 hours, IV every 12 hours, Synthroid 75 mcg once a day, metformin 1 gm twice a day. I will discontinue Lasix and administer Coumadin 7.5 mg orally today. Hubert Moses MD
[2018-06-02] MEDS: Benzocaine/Menthol (Cepacol) Lozenge MT SCH (21:06)
[2018-06-02] MEDS ORDERED: Benzocaine/Menthol (Cepacol) Lozenge MT SCH (22:00)
[2018-06-03] MEDS: oxyCODONE 80 mg ER Tab (oxyCONTIN) PO SCH ×4 (00:08→18:14)
[2018-06-03] MEDS ORDERED: Oxycodone/Acetaminophen 5/325 mg Tab PO ONE (01:30)
[2018-06-03] MEDS: Cefepime IV 1 gm in Dextrose 1 GM/50 ML BAG IVPB SCH ×2 (04:18→16:00)
[2018-06-03] MEDS: Levothyroxine 75 MCG TAB PO SCH (06:10)
[2018-06-03] MEDS: Oxycodone/Acetaminophen 5/325 mg Tab PO PRN ×4 (07:54→21:57)
[2018-06-03 08:00] LABS: INR 2.1; PROTHROMBIN TIME 22.8 SECONDS (9.7-12.2)
[2018-06-03] MEDS: Bacitracin Ointment 30 GM TUBE TOP SCH (10:31)
[2018-06-03] MEDS: Benzocaine/Menthol (Cepacol) Lozenge MT SCH ×4 (10:31→22:12)
[2018-06-03] MEDS: Linezolid 600 mg in D5W 300 ml 600 MG/300 ML BAG IVPB SCH ×2 (10:32→23:00)
--- NOTE | 2018-06-03 11:45 | CP.PCM.PN ---
Subjective - Date & Time of Evaluation Date of Evaluation: 06/03/18 Time of Evaluation: 11:44 - Subjective Subjective: Podiatry Progress Note - Dr. Laguna 57 year old male patient was seen and evaluated at bedside for bilateral venous stasis leg ulcerations. Patient is resting comfortably in bed AAOx3 and not in acute distress. Denies of having any acute overnight events. Patient has no other pedal complaints at this time and denies N/V/F/C/SOB/CP recently. Objective - Vital Signs/Intake and Output Vital Signs (last 24 hours): Temp Pulse Resp BP Pulse Ox 98.2 F 67 18 139/82 98 06/03/18 08:00 06/03/18 08:00 06/03/18 08:00 06/03/18 10:47 06/03/18 08:00 Intake and Output: 06/03/18 06/03/18 06:59 18:59 Intake Total 400 Output Total 1800 Balance -1400 - Medications Medications: Current Medications Bacitracin (Bacitracin) 1 gm TOP DAILY [facility] Last Admin: 06/03/18 10:31 Dose: 1 applic Benzocaine/Menthol (Cepacol Sore Throat) 1 matt MT QID [facility] Last Admin: 06/03/18 10:31 Dose: 1 matt Docusate Sodium (Colace) 100 mg PO DAILY [facility] Last Admin: 06/03/18 10:30 Dose: 100 mg Furosemide (Lasix) 80 mg PO BID [facility] Last Admin: 06/03/18 10:47 Dose: 80 mg Gabapentin (Neurontin) 300 mg PO TID [facility] Last Admin: 06/03/18 10:30 Dose: 300 mg Linezolid (Zyvox 600mg/300ml D5w) 600 mg in 300 mls @ 200 mls/hr IVPB Q12 [facility] PRN Reason: Protocol Last Admin: 06/03/18 10:32 Dose: 200 mls/hr Cefepime HCl (Maxipime Iv 1 Gm Premix) 1 gm in 50 mls @ 100 mls/hr IVPB Q12H [facility] PRN Reason: Protocol Last Admin: 06/03/18 04:18 Dose: 100 mls/hr Insulin Human Regular (Novolin R) 0 unit SC ACHS [facility] PRN Reason: Protocol Last Admin: 06/02/18 21:05 Dose: Not Given Levothyroxine Sodium (Synthroid) 75 mcg PO DAILY@0630 [facility] Last Admin: 06/03/18 06:10 Dose: 75 mcg Metformin HCl (Glucophage Xr) 1,000 mg PO BID [facility] Last Admin: 06/03/18 10:30 Dose: 1,000 mg Nystatin (Nystop Topical Powder) 1 applic TOP BID [facility] Last Admin: 06/03/18 10:29 Dose: 1 applic Oxycodone HCl (Oxycontin Extended Release Tab) 80 mg PO Q6 [facility] Last Admin: 06/03/18 06:10 Dose: 80 mg Oxycodone/Acetaminophen (Percocet 5/325 Mg Tab) 2 tab PO Q4H PRN PRN Reason: Pain, severe (8-10) Stop: 06/06/18 08:01 Last Admin: 06/03/18 07:54 Dose: 2 tab Warfarin Sodium (Coumadin) 10 mg PO 1800 [facility] Stop: 06/03/18 18:01 - Labs Labs: 06/02/18 08:24 06/02/18 08:24 PT 22.8 SECONDS (9.7-12.2) H 06/03/18 07:15 INR 2.1 06/03/18 07:15 - Constitutional Appears: Well, Non-toxic, No Acute Distress - Extremities Exam Additional comments: Lower extremity focused exam: Vasc: Non-palpable pedal pulses due to edema B/L, Temp gradient warm to warm, CFT < 3 sec to all digits, +1 pitting edema to bilaterally distal to tibial tuberosity Neuro: protective sensation mildly diminished Derm: Bilateral leg multiple ulcers noted at both legs. L worse than R. L side ulcers mainly posteromedial to the calf with serous drainage, No malodor , sharp edges, surrounded by erythema, Proximal ulcer was bleeding, base is granular, fibrotic 50/50. No tracking, No undermining, No probig to bone. R side: circumferential color and skin changes with multiple almost healed superficial ulcers with no malodor, sharp edges and fibrotic granular base 50: 50. No tracking, No undermining no probing to bone. ORTHO: Severe pain on palpation of posterior and medial L leg. Minimal pain on palpation of R leg - Neurological Exam Neurological Exam: Alert, Awake, Oriented x3 - Psychiatric Exam Psychiatric exam: Normal Affect, Normal Mood Assessment and Plan - Assessment and Plan (Free Text) Assessment: 57 year old male patient seen and evaluated for multiple chronic recurrent venous stasis ulcers Plan: Patient seen and evaluated Discussed in details with attending Dr. Laguna Labs and vitals reviewed: afebrile Wounds cleaned with saline and dressings applied with bacitracin, xeroform, ABD , DSD, Kerlix and JOSE Patient tolerated the dressing change well Patient is stable from podiatry standpoint Will continue every other day dressing changes while patient is in-house
[2018-06-03] MEDS: (Novolin R) Insulin Human Regular 100 units/ml vial SC SCH ×2 (16:30→21:43)
[2018-06-04] MEDS: Benzocaine/Menthol (Cepacol) Lozenge MT SCH ×5 (00:31→23:50)
[2018-06-04] MEDS: oxyCODONE 80 mg ER Tab (oxyCONTIN) PO SCH ×5 (00:31→23:47)
[2018-06-04] MEDS: Cefepime IV 1 gm in Dextrose 1 GM/50 ML BAG IVPB SCH ×2 (04:39→16:29)
[2018-06-04] MEDS: Oxycodone/Acetaminophen 5/325 mg Tab PO PRN ×4 (05:43→22:00)
[2018-06-04] MEDS: Levothyroxine 75 MCG TAB PO SCH (05:43)
[2018-06-04 07:04] LABS: PROTHROMBIN TIME 22.3 SECONDS (9.7-12.2)
[2018-06-04] MEDS: (Novolin R) Insulin Human Regular 100 units/ml vial SC SCH ×5 (08:48→22:03)
[2018-06-04] MEDS: Bacitracin Ointment 30 GM TUBE TOP SCH (11:01)
[2018-06-04] MEDS: Linezolid 600 mg in D5W 300 ml 600 MG/300 ML BAG IVPB SCH ×2 (11:25→21:51)
--- NOTE | 2018-06-04 23:10 | CP.PCM.PN ---
Subjective - Date & Time of Evaluation Date of Evaluation: 06/04/18 Time of Evaluation: 12:37 - Subjective Subjective: Patient seen and examined by me. Objective - Vital Signs/Intake and Output Vital Signs (last 24 hours): Temp Pulse Resp BP Pulse Ox 97.9 F 65 20 140/80 96 06/04/18 15:30 06/04/18 15:30 06/04/18 15:30 06/04/18 17:55 06/04/18 15:30 - Medications Medications: Current Medications Bacitracin (Bacitracin) 1 gm TOP DAILY [facility] Last Admin: 06/04/18 11:01 Dose: 1 applic Benzocaine/Menthol (Cepacol Sore Throat) 1 matt MT Q6 [facility] Last Admin: 06/04/18 17:55 Dose: 1 matt Docusate Sodium (Colace) 100 mg PO DAILY [facility] Last Admin: 06/04/18 10:59 Dose: 100 mg Furosemide (Lasix) 80 mg PO BID [facility] Last Admin: 06/04/18 17:55 Dose: 80 mg Gabapentin (Neurontin) 300 mg PO TID [facility] Last Admin: 06/04/18 17:54 Dose: 300 mg Linezolid (Zyvox 600mg/300ml D5w) 600 mg in 300 mls @ 200 mls/hr IVPB Q12 [facility] PRN Reason: Protocol Last Admin: 06/04/18 21:51 Dose: 200 mls/hr Cefepime HCl (Maxipime Iv 1 Gm Premix) 1 gm in 50 mls @ 100 mls/hr IVPB Q12H [facility] PRN Reason: Protocol Last Admin: 06/04/18 16:29 Dose: 100 mls/hr Insulin Human Regular (Novolin R) 0 unit SC ACHS [facility] PRN Reason: Protocol Last Admin: 06/04/18 22:03 Dose: Not Given Levothyroxine Sodium (Synthroid) 75 mcg PO DAILY@0630 [facility] Last Admin: 06/04/18 05:43 Dose: 75 mcg Metformin HCl (Glucophage Xr) 1,000 mg PO BID [facility] Last Admin: 06/04/18 17:53 Dose: 1,000 mg Nystatin (Nystop Topical Powder) 1 applic TOP BID [facility] Last Admin: 06/04/18 18:00 Dose: 1 applic Oxycodone HCl (Oxycontin Extended Release Tab) 80 mg PO Q6 [facility] Last Admin: 06/04/18 17:54 Dose: 80 mg Oxycodone/Acetaminophen (Percocet 5/325 Mg Tab) 2 tab PO Q4H PRN PRN Reason: Pain, severe (8-10) Stop: 06/06/18 08:01 Last Admin: 06/04/18 22:00 Dose: 2 tab - Labs Labs: 06/02/18 08:24 06/02/18 08:24 PT 22.3 SECONDS (9.7-12.2) H 06/04/18 06:52 INR 2.0 06/04/18 06:52 Assessment and Plan (1) Ambulatory dysfunction Status: Acute (2) Chronic skin ulcer of lower leg Status: Acute (3) Diabetes Status: Acute (4) Impaired mobility and ADLs Status: Acute (5) Nonhealing ulcer of left lower extremity Status: Acute (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
[2018-06-05] MEDS: Oxycodone/Acetaminophen 5/325 mg Tab PO PRN ×5 (03:40→20:30)
[2018-06-05] MEDS: Cefepime IV 1 gm in Dextrose 1 GM/50 ML BAG IVPB SCH ×2 (03:41→16:25)
--- NOTE | 2018-06-05 03:54 | PN ---
DATE: 06/04/2018 SUBJECTIVE: The patient has left leg pain. No nausea or vomiting. PHYSICAL EXAMINATION: VITAL SIGNS: Blood pressure 110/76, pulse 65, respiratory rate 20, temperature 99.9. LUNGS: Clear. CVS: S1, S2 are regular. ABDOMEN: Soft. ASSESSMENT: 1. Left leg ulcer. 2. Diabetes. 3. Deep venous thrombosis. 4. Hypertension. PLAN: Coumadin. Waiting for [facility] placement. Estrada Albright MD
[2018-06-05] MEDS: oxyCODONE 80 mg ER Tab (oxyCONTIN) PO SCH ×3 (05:47→18:26)
[2018-06-05] MEDS: Levothyroxine 75 MCG TAB PO SCH (05:49)
[2018-06-05] MEDS: Benzocaine/Menthol (Cepacol) Lozenge MT SCH ×3 (05:51→18:28)
[2018-06-05] MEDS: (Novolin R) Insulin Human Regular 100 units/ml vial SC SCH ×4 (07:45→21:42)
[2018-06-05 08:20] LABS: INR 2.2; PROTHROMBIN TIME 23.9 SECONDS (9.7-12.2)
[2018-06-05] MEDS: Linezolid 600 mg in D5W 300 ml 600 MG/300 ML BAG IVPB SCH ×2 (11:27→21:48)
[2018-06-05] MEDS: Bacitracin Ointment 30 GM TUBE TOP SCH (11:28)
--- NOTE | 2018-06-05 11:37 | CP.PCM.PN ---
Subjective - Date & Time of Evaluation Date of Evaluation: 06/05/18 Time of Evaluation: 11:33 - Subjective Subjective: Podiatry Progress Note - Dr. Laguna 57 year old male patient was seen and evaluated at bedside for bilateral venous stasis leg ulcerations. Patient is not in acute distress. Patient is resting comfortably in bed AAOx3. patient denies of having any acute overnight events. Patient has no other pedal complaints at this time and denies N/V/F/C/SOB/CP recently. Objective - Vital Signs/Intake and Output Vital Signs (last 24 hours): Temp Pulse Resp BP Pulse Ox 98.2 F 63 18 122/71 99 06/05/18 07:35 06/05/18 07:35 06/05/18 07:35 06/05/18 11:26 06/05/18 07:35 - Medications Medications: Current Medications Bacitracin (Bacitracin) 1 gm TOP DAILY [facility] Last Admin: 06/05/18 11:28 Dose: Not Given Benzocaine/Menthol (Cepacol Sore Throat) 1 matt MT Q6 [facility] Last Admin: 06/05/18 11:26 Dose: 1 matt Docusate Sodium (Colace) 100 mg PO DAILY [facility] Last Admin: 06/05/18 11:26 Dose: 100 mg Furosemide (Lasix) 80 mg PO BID [facility] Last Admin: 06/05/18 11:26 Dose: 80 mg Gabapentin (Neurontin) 300 mg PO TID [facility] Last Admin: 06/05/18 11:27 Dose: 300 mg Linezolid (Zyvox 600mg/300ml D5w) 600 mg in 300 mls @ 200 mls/hr IVPB Q12 [facility] PRN Reason: Protocol Last Admin: 06/05/18 11:27 Dose: 200 mls/hr Cefepime HCl (Maxipime Iv 1 Gm Premix) 1 gm in 50 mls @ 100 mls/hr IVPB Q12H [facility] PRN Reason: Protocol Last Admin: 06/05/18 03:41 Dose: 100 mls/hr Insulin Human Regular (Novolin R) 0 unit SC ACHS [facility] PRN Reason: Protocol Last Admin: 06/05/18 07:45 Dose: Not Given Levothyroxine Sodium (Synthroid) 75 mcg PO DAILY@0630 [facility] Last Admin: 06/05/18 05:49 Dose: 75 mcg Metformin HCl (Glucophage Xr) 1,000 mg PO BID [facility] Last Admin: 06/05/18 11:26 Dose: 1,000 mg Nystatin (Nystop Topical Powder) 1 applic TOP BID [facility] Last Admin: 06/05/18 11:28 Dose: Not Given Oxycodone HCl (Oxycontin Extended Release Tab) 80 mg PO Q6 [facility] Last Admin: 06/05/18 11:29 Dose: 80 mg Oxycodone/Acetaminophen (Percocet 5/325 Mg Tab) 2 tab PO Q4H PRN PRN Reason: Pain, severe (8-10) Stop: 06/06/18 08:01 Last Admin: 06/05/18 08:39 Dose: 2 tab - Labs Labs: 06/02/18 08:24 06/02/18 08:24 PT 23.9 SECONDS (9.7-12.2) H 06/05/18 08:06 INR 2.2 06/05/18 08:06 - Constitutional Appears: Well, Non-toxic, No Acute Distress - Head Exam Head Exam: ATRAUMATIC, NORMOCEPHALIC - Extremities Exam Additional comments: Lower extremity focused exam: Vasc: pedal pulses are non palpable due to edema B/L, Temp gradient warm to warm b/l, Cap refill < 3 sec to all digits, +1 pitting edema to bilaterally distal to tibial tuberosity Neuro: protective sensation diminished bilaterally, Gross sensation intact bilaterally Derm: Bilateral leg multiple ulcers noted at both legs. L worse than R. L side ulcers mainly posteromedial to the calf with serous drainage, No malodor , sharp edges, surrounded by erythema, Proximal ulcer mildly bleeding, base is granular, fibrotic 50/50. No tracking, No undermining, No probig to bone. R side: circumferential color and skin changes with multiple almost healed superficial ulcers with no malodor, sharp edges and fibrotic granular base 50: 50. No tracking, No undermining no probing to bone. MSK: Severe pain on palpation of posterior and medial L leg. Moderate pain on palpation of R leg - Neurological Exam Neurological Exam: Alert, Awake, Oriented x3 - Psychiatric Exam Psychiatric exam: Normal Affect, Normal Mood Assessment and Plan - Assessment and Plan (Free Text) Assessment: 57 year old male patient seen and evaluated for multiple chronic recurrent venous stasis ulcers Plan: Patient seen and evaluated at the bedside Discussed plan in details with attending Dr. Laguna Labs and vitals reviewed: afebrile Wounds cleaned with saline and dressings applied with xeroform, ABD, DSD, Kerlix and JOSE Patient tolerated the dressing change well Patient is stable from podiatry standpoint Will continue every other day dressing changes while patient is in-house
--- NOTE | 2018-06-05 23:30 | CP.PCM.PN ---
Objective - Vital Signs/Intake and Output Vital Signs (last 24 hours): Temp Pulse Resp BP Pulse Ox 98.4 F 92 H 22 106/80 97 06/05/18 15:00 06/05/18 15:00 06/05/18 15:00 06/05/18 18:37 06/05/18 15:00 Intake and Output: 06/05/18 06/06/18 18:59 06:59 Intake Total 300 Balance 300 - Medications Medications: Current Medications Bacitracin (Bacitracin) 1 gm TOP DAILY [facility] Last Admin: 06/05/18 11:28 Dose: Not Given Benzocaine/Menthol (Cepacol Sore Throat) 1 matt MT Q6 [facility] Last Admin: 06/05/18 18:28 Dose: 1 matt Docusate Sodium (Colace) 100 mg PO DAILY [facility] Last Admin: 06/05/18 11:26 Dose: 100 mg Furosemide (Lasix) 80 mg PO BID [facility] Last Admin: 06/05/18 18:37 Dose: 80 mg Gabapentin (Neurontin) 300 mg PO TID [facility] Last Admin: 06/05/18 18:26 Dose: 300 mg Linezolid (Zyvox 600mg/300ml D5w) 600 mg in 300 mls @ 200 mls/hr IVPB Q12 [facility] PRN Reason: Protocol Last Admin: 06/05/18 21:48 Dose: 200 mls/hr Cefepime HCl (Maxipime Iv 1 Gm Premix) 1 gm in 50 mls @ 100 mls/hr IVPB Q12H [facility] PRN Reason: Protocol Last Admin: 06/05/18 16:25 Dose: 100 mls/hr Insulin Human Regular (Novolin R) 0 unit SC ACHS [facility] PRN Reason: Protocol Last Admin: 06/05/18 21:42 Dose: Not Given Levothyroxine Sodium (Synthroid) 75 mcg PO DAILY@0630 [facility] Last Admin: 06/05/18 05:49 Dose: 75 mcg Metformin HCl (Glucophage Xr) 1,000 mg PO BID [facility] Last Admin: 06/05/18 18:25 Dose: 1,000 mg Nystatin (Nystop Topical Powder) 1 applic TOP BID [facility] Last Admin: 06/05/18 18:45 Dose: Not Given Oxycodone HCl (Oxycontin Extended Release Tab) 80 mg PO Q6 [facility] Last Admin: 06/05/18 18:26 Dose: 80 mg Oxycodone/Acetaminophen (Percocet 5/325 Mg Tab) 2 tab PO Q4H PRN PRN Reason: Pain, severe (8-10) Stop: 06/06/18 08:01 Last Admin: 06/05/18 20:30 Dose: 2 tab - Labs Labs: 06/02/18 08:24 06/02/18 08:24 PT 23.9 SECONDS (9.7-12.2) H 06/05/18 08:06 INR 2.2 06/05/18 08:06 Assessment and Plan (1) Ambulatory dysfunction Status: Acute (2) Chronic skin ulcer of lower leg Status: Acute (3) Diabetes Status: Acute (4) Impaired mobility and ADLs Status: Acute (5) Nonhealing ulcer of left lower extremity Status: Acute (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
[2018-06-06] MEDS: oxyCODONE 80 mg ER Tab (oxyCONTIN) PO SCH ×4 (00:02→18:11)
[2018-06-06] MEDS: Benzocaine/Menthol (Cepacol) Lozenge MT SCH ×4 (00:04→18:10)
[2018-06-06] MEDS: Cefepime IV 1 gm in Dextrose 1 GM/50 ML BAG IVPB SCH ×2 (03:25→16:01)
[2018-06-06] MEDS: Levothyroxine 75 MCG TAB PO SCH (06:14)
[2018-06-06] MEDS: Oxycodone/Acetaminophen 5/325 mg Tab PO PRN ×4 (06:50→21:20)
[2018-06-06] MEDS: (Novolin R) Insulin Human Regular 100 units/ml vial SC SCH ×4 (08:51→22:01)
[2018-06-06] MEDS: Bacitracin Ointment 30 GM TUBE TOP SCH (10:57)
[2018-06-06] MEDS: Linezolid 600 mg in D5W 300 ml 600 MG/300 ML BAG IVPB SCH (10:58)
[2018-06-06 11:29] LABS: INR 2.2; PROTHROMBIN TIME 24.4 SECONDS (9.7-12.2)
--- NOTE | 2018-06-06 14:01 | CP.PCM.PN ---
Subjective - Date & Time of Evaluation Date of Evaluation: 06/06/18 Time of Evaluation: 08:00 - Subjective Subjective: arousable in NAD Objective - Vital Signs/Intake and Output Vital Signs (last 24 hours): Temp Pulse Resp BP Pulse Ox 98 F 81 18 121/74 98 06/06/18 08:56 06/06/18 08:56 06/06/18 08:56 06/06/18 10:57 06/06/18 08:56 Intake and Output: 06/06/18 06/06/18 06:59 18:59 Intake Total 750 Balance 750 - Medications Medications: Current Medications Bacitracin (Bacitracin) 1 gm TOP DAILY [facility] Last Admin: 06/06/18 10:57 Dose: 1 applic Benzocaine/Menthol (Cepacol Sore Throat) 1 matt MT Q6 [facility] Last Admin: 06/06/18 11:00 Dose: 1 matt Docusate Sodium (Colace) 100 mg PO DAILY [facility] Last Admin: 06/06/18 10:57 Dose: 100 mg Furosemide (Lasix) 80 mg PO BID [facility] Last Admin: 06/06/18 10:57 Dose: 80 mg Gabapentin (Neurontin) 300 mg PO TID [facility] Last Admin: 06/06/18 13:09 Dose: 300 mg Cefepime HCl (Maxipime Iv 1 Gm Premix) 1 gm in 50 mls @ 100 mls/hr IVPB Q12H [facility] PRN Reason: Protocol Last Admin: 06/06/18 03:25 Dose: 100 mls/hr Insulin Human Regular (Novolin R) 0 unit SC ACHS [facility] PRN Reason: Protocol Last Admin: 06/06/18 08:51 Dose: Not Given Levothyroxine Sodium (Synthroid) 75 mcg PO DAILY@0630 [facility] Last Admin: 06/06/18 06:14 Dose: 75 mcg Metformin HCl (Glucophage Xr) 1,000 mg PO BID [facility] Last Admin: 06/06/18 10:57 Dose: 1,000 mg Nystatin (Nystop Topical Powder) 1 applic TOP BID [facility] Last Admin: 06/06/18 11:09 Dose: Not Given Oxycodone HCl (Oxycontin Extended Release Tab) 80 mg PO Q6 [facility] Last Admin: 06/06/18 12:32 Dose: 80 mg Oxycodone/Acetaminophen (Percocet 5/325 Mg Tab) 2 tab PO Q4H PRN PRN Reason: Pain, severe (8-10) Stop: 06/09/18 08:58 Last Admin: 06/06/18 10:58 Dose: 2 tab - Labs Labs: 06/02/18 08:24 06/02/18 08:24 PT 24.4 SECONDS (9.7-12.2) H 06/06/18 11:12 INR 2.2 06/06/18 11:12 - Constitutional Appears: Well - Head Exam Head Exam: ATRAUMATIC, NORMAL INSPECTION, NORMOCEPHALIC - Eye Exam Eye Exam: EOMI, Normal appearance, PERRL Pupil Exam: NORMAL ACCOMODATION, PERRL - ENT Exam ENT Exam: Mucous Membranes Moist, Normal Exam - Neck Exam Neck Exam: Full ROM, Normal Inspection. absent: Lymphadenopathy - Respiratory Exam Respiratory Exam: Clear to Ausculation Bilateral, NORMAL BREATHING PATTERN - Cardiovascular Exam Cardiovascular Exam: REGULAR RHYTHM, +S1, +S2. absent: Murmur - GI/Abdominal Exam GI & Abdominal Exam: Soft, Normal Bowel Sounds. absent: Tenderness - Rectal Exam Rectal Exam: NORMAL INSPECTION - Exam Exam: Circumcision, NORMAL INSPECTION - Extremities Exam Extremities Exam: Full ROM, Normal Capillary Refill, Normal Inspection. absent : Joint Swelling, Pedal Edema - Back Exam Back Exam: NORMAL INSPECTION - Neurological Exam Neurological Exam: Alert, Awake, CN II-XII Intact, Oriented x3. absent: Abnormal Gait, Altered, Motor Sensory Deficit, Normal Gait, Reflexes Normal - Psychiatric Exam Psychiatric exam: Normal Affect, Normal Mood - Skin Skin Exam: Dry, Normal Color, Warm Additional comments: wounds same Assessment and Plan (1) Ambulatory dysfunction Status: Acute (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
--- NOTE | 2018-06-06 23:38 | CP.PCM.PN ---
Objective - Vital Signs/Intake and Output Vital Signs (last 24 hours): Temp Pulse Resp BP Pulse Ox 97.8 F 72 22 135/77 98 06/06/18 15:34 06/06/18 15:34 06/06/18 15:34 06/06/18 18:11 06/06/18 15:34 Intake and Output: 06/06/18 06/07/18 18:59 06:59 Intake Total 700 Output Total 1800 Balance -1100 - Medications Medications: Current Medications Bacitracin (Bacitracin) 1 gm TOP DAILY [facility] Last Admin: 06/06/18 10:57 Dose: 1 applic Benzocaine/Menthol (Cepacol Sore Throat) 1 matt MT Q6 [facility] Last Admin: 06/06/18 18:10 Dose: 1 matt Docusate Sodium (Colace) 100 mg PO DAILY [facility] Last Admin: 06/06/18 10:57 Dose: 100 mg Furosemide (Lasix) 80 mg PO BID [facility] Last Admin: 06/06/18 18:11 Dose: 80 mg Gabapentin (Neurontin) 300 mg PO TID [facility] Last Admin: 06/06/18 18:11 Dose: 300 mg Cefepime HCl (Maxipime Iv 1 Gm Premix) 1 gm in 50 mls @ 100 mls/hr IVPB Q12H [facility] PRN Reason: Protocol Last Admin: 06/06/18 16:01 Dose: 100 mls/hr Insulin Human Regular (Novolin R) 0 unit SC ACHS [facility] PRN Reason: Protocol Last Admin: 06/06/18 22:01 Dose: Not Given Levothyroxine Sodium (Synthroid) 75 mcg PO DAILY@0630 [facility] Last Admin: 06/06/18 06:14 Dose: 75 mcg Metformin HCl (Glucophage Xr) 1,000 mg PO BID [facility] Last Admin: 06/06/18 18:11 Dose: 1,000 mg Nystatin (Nystop Topical Powder) 1 applic TOP BID [facility] Last Admin: 06/06/18 19:21 Dose: 1 applic Oxycodone HCl (Oxycontin Extended Release Tab) 80 mg PO Q6 [facility] Last Admin: 06/06/18 18:11 Dose: 80 mg Oxycodone/Acetaminophen (Percocet 5/325 Mg Tab) 2 tab PO Q4H PRN PRN Reason: Pain, severe (8-10) Stop: 06/09/18 08:58 Last Admin: 06/06/18 21:20 Dose: 2 tab - Labs Labs: 06/02/18 08:24 06/02/18 08:24 PT 24.4 SECONDS (9.7-12.2) H 06/06/18 11:12 INR 2.2 06/06/18 11:12 Assessment and Plan (1) Ambulatory dysfunction Status: Acute (2) Chronic skin ulcer of lower leg Status: Acute (3) Diabetes Status: Acute (4) Impaired mobility and ADLs Status: Acute (5) Nonhealing ulcer of left lower extremity Status: Acute (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
--- NOTE | 2018-06-06 23:51 | PN ---
DATE: 06/06/2018 CHIEF COMPLAINT: The patient has back pain, left leg pain. He has itching in the skin. Other than that, no acute symptoms. PHYSICAL EXAMINATION: VITAL SIGNS: Blood pressure 100/58, pulse 92, respiratory rate 22, temperature 98.4. LUNGS: Clear. CVS: S1, S2 are regular. ABDOMEN: Soft. EXTREMITIES: Left leg ulcer. ASSESSMENT: 1. Left leg ulcer. 2. Hypertension. 3. Diabetes. 4. Morbid obesity. PLAN: Antibiotics, wound care, and pending residential placement. Estrada Albright MD
[2018-06-07] MEDS: Benzocaine/Menthol (Cepacol) Lozenge MT SCH ×4 (00:12→17:46)
[2018-06-07] MEDS: oxyCODONE 80 mg ER Tab (oxyCONTIN) PO SCH ×4 (00:12→17:43)
[2018-06-07] MEDS: Oxycodone/Acetaminophen 5/325 mg Tab PO PRN ×5 (01:37→21:00)
--- NOTE | 2018-06-07 05:07 | PN ---
DATE: 06/06/2018 SUBJECTIVE: The patient is feeling better. No nausea or vomiting. No shortness of breath. PHYSICAL EXAMINATION: LUNGS: Clear. CVS: S1, S2 are regular. ABDOMEN: Soft. ASSESSMENT: 1. Left leg ulcer, on antibiotics. 2. Morbid obesity. 3. Diabetes. 4. Hypertension. PLAN: Medical management. Monitor the patient. Estrada Albright MD
[2018-06-07] MEDS: Cefepime IV 1 gm in Dextrose 1 GM/50 ML BAG IVPB SCH ×2 (05:54→16:39)
[2018-06-07] MEDS: Levothyroxine 75 MCG TAB PO SCH (05:57)
[2018-06-07] MEDS: (Novolin R) Insulin Human Regular 100 units/ml vial SC SCH ×4 (08:14→21:13)
[2018-06-07 08:37] LABS: INR 1.8; PROTHROMBIN TIME 19.9 SECONDS (9.7-12.2)
[2018-06-07 08:38] LABS: HEMOGLOBIN 11.3 g/dL (12.0-18.0); MEAN CELL VOLUME 82.3 fL (80.0-94.0); MEAN CORPUSCULAR HEMOGLOBIN 27.8 pg (27.0-31.0); MEAN CORPUSCULAR HGB CONC 33.8 g/dL (33.0-37.0); MEAN PLATELET VOLUME 9.3 fL (7.2-11.7); RBC 4.08 Mil/uL (4.40-5.90); RED CELL DISTRIBUTION WIDTH 16.9 % (11.5-14.5); WHITE BLOOD COUNT 5.1 K/uL (4.8-10.8)
[2018-06-07 08:45] LABS: BLOOD UREA NITROGEN 29 mg/dL (9-20); GFR AFRICAN-AMERICAN > 60; GFR NON-AFRICAN AMERICAN > 60
[2018-06-07] MEDS: Bacitracin Ointment 30 GM TUBE TOP SCH (11:33)
--- NOTE | 2018-06-07 23:50 | CP.PCM.PN ---
Subjective - Date & Time of Evaluation Date of Evaluation: 06/07/18 Time of Evaluation: 19:00 - Subjective Subjective: Pt seen and examined at bedside Objective - Vital Signs/Intake and Output Vital Signs (last 24 hours): Temp Pulse Resp BP Pulse Ox 98.3 F 84 20 131/72 97 06/07/18 15:00 06/07/18 15:00 06/07/18 15:00 06/07/18 17:40 06/07/18 15:00 Intake and Output: 06/07/18 06/08/18 18:59 06:59 Intake Total 600 Output Total 1200 500 Balance -600 -500 - Medications Medications: Current Medications Bacitracin (Bacitracin) 1 gm TOP DAILY [facility] Last Admin: 06/07/18 11:33 Dose: 1 applic Benzocaine/Menthol (Cepacol Sore Throat) 1 matt MT Q6 [facility] Last Admin: 06/07/18 17:46 Dose: 1 matt Docusate Sodium (Colace) 100 mg PO DAILY [facility] Last Admin: 06/07/18 10:19 Dose: 100 mg Furosemide (Lasix) 80 mg PO BID [facility] Last Admin: 06/07/18 17:40 Dose: 80 mg Gabapentin (Neurontin) 300 mg PO TID [facility] Last Admin: 06/07/18 17:42 Dose: 300 mg Cefepime HCl (Maxipime Iv 1 Gm Premix) 1 gm in 50 mls @ 100 mls/hr IVPB Q12H [facility] PRN Reason: Protocol Last Admin: 06/07/18 16:39 Dose: 100 mls/hr Insulin Human Regular (Novolin R) 0 unit SC ACHS [facility] PRN Reason: Protocol Last Admin: 06/07/18 21:13 Dose: Not Given Levothyroxine Sodium (Synthroid) 75 mcg PO DAILY@0630 [facility] Last Admin: 06/07/18 05:57 Dose: 75 mcg Metformin HCl (Glucophage Xr) 1,000 mg PO BID [facility] Last Admin: 06/07/18 17:42 Dose: 1,000 mg Nystatin (Nystop Topical Powder) 1 applic TOP BID [facility] Last Admin: 06/07/18 18:00 Dose: Not Given Oxycodone HCl (Oxycontin Extended Release Tab) 80 mg PO Q6 [facility] Last Admin: 06/07/18 17:43 Dose: 80 mg Oxycodone/Acetaminophen (Percocet 5/325 Mg Tab) 2 tab PO Q4H PRN PRN Reason: Pain, severe (8-10) Stop: 06/09/18 08:58 Last Admin: 06/07/18 21:00 Dose: 2 tab - Labs Labs: 06/07/18 08:24 06/07/18 08:24 PT 19.9 SECONDS (9.7-12.2) H 06/07/18 08:24 INR 1.8 06/07/18 08:24 Assessment and Plan (1) Ambulatory dysfunction Status: Acute (2) Chronic skin ulcer of lower leg Status: Acute (3) Diabetes Status: Acute (4) Impaired mobility and ADLs Status: Acute (5) Nonhealing ulcer of left lower extremity Status: Acute (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
[2018-06-08] MEDS: oxyCODONE 80 mg ER Tab (oxyCONTIN) PO SCH ×4 (00:27→17:38)
[2018-06-08] MEDS: Benzocaine/Menthol (Cepacol) Lozenge MT SCH ×4 (00:27→17:41)
[2018-06-08] MEDS: Oxycodone/Acetaminophen 5/325 mg Tab PO PRN ×4 (03:47→19:40)
[2018-06-08] MEDS: Cefepime IV 1 gm in Dextrose 1 GM/50 ML BAG IVPB SCH ×2 (04:00→16:52)
[2018-06-08] MEDS: Levothyroxine 75 MCG TAB PO SCH (06:22)
[2018-06-08 07:32] LABS: INR 1.5; PROTHROMBIN TIME 16.6 SECONDS (9.7-12.2)
[2018-06-08] MEDS: (Novolin R) Insulin Human Regular 100 units/ml vial SC SCH ×4 (08:17→21:59)
[2018-06-08] MEDS: Bacitracin Ointment 30 GM TUBE TOP SCH (10:35)
--- NOTE | 2018-06-08 10:55 | CP.PCM.PN ---
Subjective - Date & Time of Evaluation Date of Evaluation: 06/08/18 Time of Evaluation: 09:00 - Subjective Subjective: remains afeb orders signed Objective - Vital Signs/Intake and Output Vital Signs (last 24 hours): Temp Pulse Resp BP Pulse Ox 97.3 F L 68 20 122/71 98 06/08/18 07:00 06/08/18 07:00 06/08/18 07:00 06/08/18 10:34 06/08/18 07:00 Intake and Output: 06/08/18 06/08/18 06:59 18:59 Output Total 500 Balance -500 - Medications Medications: Current Medications Bacitracin (Bacitracin) 1 gm TOP DAILY [facility] Last Admin: 06/08/18 10:35 Dose: Not Given Benzocaine/Menthol (Cepacol Sore Throat) 1 matt MT Q6 [facility] Last Admin: 06/08/18 06:15 Dose: 1 matt Docusate Sodium (Colace) 100 mg PO DAILY [facility] Last Admin: 06/08/18 10:34 Dose: 100 mg Furosemide (Lasix) 80 mg PO BID [facility] Last Admin: 06/08/18 10:34 Dose: 80 mg Gabapentin (Neurontin) 300 mg PO TID [facility] Last Admin: 06/07/18 17:42 Dose: 300 mg Cefepime HCl (Maxipime Iv 1 Gm Premix) 1 gm in 50 mls @ 100 mls/hr IVPB Q12H [facility] PRN Reason: Protocol Last Admin: 06/08/18 04:00 Dose: 100 mls/hr Insulin Human Regular (Novolin R) 0 unit SC ACHS [facility] PRN Reason: Protocol Last Admin: 06/08/18 08:17 Dose: Not Given Levothyroxine Sodium (Synthroid) 75 mcg PO DAILY@0630 [facility] Last Admin: 06/08/18 06:22 Dose: 75 mcg Metformin HCl (Glucophage Xr) 1,000 mg PO BID [facility] Last Admin: 06/08/18 10:34 Dose: 1,000 mg Nystatin (Nystop Topical Powder) 1 applic TOP BID [facility] Last Admin: 06/08/18 10:35 Dose: Not Given Oxycodone HCl (Oxycontin Extended Release Tab) 80 mg PO Q6 [facility] Last Admin: 06/08/18 06:15 Dose: 80 mg Oxycodone/Acetaminophen (Percocet 5/325 Mg Tab) 2 tab PO Q4H PRN PRN Reason: Pain, severe (8-10) Stop: 06/09/18 08:58 Last Admin: 06/08/18 08:29 Dose: 2 tab - Labs Labs: 06/07/18 08:24 06/07/18 08:24 PT 16.6 SECONDS (9.7-12.2) H 06/08/18 07:22 INR 1.5 06/08/18 07:22 - Constitutional Appears: Non-toxic, Chronically Ill - Head Exam Head Exam: NORMOCEPHALIC - Eye Exam Eye Exam: PERRL - ENT Exam ENT Exam: Mucous Membranes Dry - Neck Exam Neck Exam: absent: Lymphadenopathy - Respiratory Exam Respiratory Exam: Decreased Breath Sounds - Cardiovascular Exam Cardiovascular Exam: REGULAR RHYTHM - GI/Abdominal Exam GI & Abdominal Exam: Distended - Rectal Exam Rectal Exam: Deferred - Exam Exam: NORMAL INSPECTION - Extremities Exam Extremities Exam: absent: Pedal Edema Assessment and Plan (1) Ambulatory dysfunction Status: Acute (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
--- NOTE | 2018-06-08 15:33 | CP.PCM.PN ---
Subjective - Date & Time of Evaluation Date of Evaluation: 06/08/18 Time of Evaluation: 11:30 - Subjective Subjective: Podiatry Progress Note - Dr. Laguna 57 year old male patient was seen and evaluated at bedside for bilateral venous stasis leg ulcerations. Patient is not in acute distress. Patient is resting comfortably in bed AAOx3. Patient denies of having any acute overnight events. Reports that the dressing was not changed yesterday. Patient has no other pedal complaints at this time and denies N/V/F/C/SOB/CP recently. Objective - Vital Signs/Intake and Output Vital Signs (last 24 hours): Temp Pulse Resp BP Pulse Ox 97.3 F L 68 20 122/71 98 06/08/18 07:00 06/08/18 07:00 06/08/18 07:00 06/08/18 10:34 06/08/18 07:00 Intake and Output: 06/08/18 06/08/18 06:59 18:59 Output Total 500 Balance -500 - Medications Medications: Current Medications Bacitracin (Bacitracin) 1 gm TOP DAILY [facility] Last Admin: 06/08/18 10:35 Dose: Not Given Benzocaine/Menthol (Cepacol Sore Throat) 1 matt MT Q6 [facility] Last Admin: 06/08/18 12:01 Dose: 1 matt Docusate Sodium (Colace) 100 mg PO DAILY [facility] Last Admin: 06/08/18 10:34 Dose: 100 mg Furosemide (Lasix) 80 mg PO BID [facility] Last Admin: 06/08/18 10:34 Dose: 80 mg Gabapentin (Neurontin) 300 mg PO TID [facility] Last Admin: 06/08/18 14:00 Dose: 300 mg Cefepime HCl (Maxipime Iv 1 Gm Premix) 1 gm in 50 mls @ 100 mls/hr IVPB Q12H [facility] PRN Reason: Protocol Last Admin: 06/08/18 04:00 Dose: 100 mls/hr Insulin Human Regular (Novolin R) 0 unit SC ACHS [facility] PRN Reason: Protocol Last Admin: 06/08/18 12:01 Dose: 1 unit Levothyroxine Sodium (Synthroid) 75 mcg PO DAILY@0630 [facility] Last Admin: 06/08/18 06:22 Dose: 75 mcg Metformin HCl (Glucophage Xr) 1,000 mg PO BID [facility] Last Admin: 06/08/18 10:34 Dose: 1,000 mg Nystatin (Nystop Topical Powder) 1 applic TOP BID [facility] Last Admin: 06/08/18 10:35 Dose: Not Given Oxycodone HCl (Oxycontin Extended Release Tab) 80 mg PO Q6 [facility] Last Admin: 06/08/18 12:01 Dose: 80 mg Oxycodone/Acetaminophen (Percocet 5/325 Mg Tab) 2 tab PO Q4H PRN PRN Reason: Pain, severe (8-10) Stop: 06/09/18 08:58 Last Admin: 06/08/18 14:00 Dose: 2 tab Warfarin Sodium (Coumadin) 10 mg PO 1800 [facility] Stop: 06/08/18 18:01 Warfarin Sodium (Coumadin) 2.5 mg PO DAILY@1800 [facility] Stop: 06/08/18 18:01 - Labs Labs: 06/07/18 08:24 06/07/18 08:24 PT 16.6 SECONDS (9.7-12.2) H 06/08/18 07:22 INR 1.5 06/08/18 07:22 - Constitutional Appears: Well, Non-toxic, No Acute Distress - Extremities Exam Additional comments: Lower extremity focused exam: Vasc: pedal pulses are non palpable due to edema B/L, Temp gradient warm to warm b/l, Cap refill < 3 sec to all digits, +1 pitting edema to bilaterally distal to tibial tuberosity Neuro: protective sensation diminished bilaterally, Gross sensation intact bilaterally Derm: Bilateral leg multiple ulcers noted at both legs. L worse than R. L side ulcers mainly posteromedial to the calf with serous drainage, No malodor , sharp edges, surrounded by erythema, Proximal ulcer mildly bleeding, base is granular, fibrotic 50/50. No tracking, No undermining, No probig to bone. R side: circumferential color and skin changes with multiple almost healed superficial ulcers with no malodor, sharp edges and fibrotic granular base 50: 50. No tracking, No undermining no probing to bone. MSK: Severe pain on palpation of posterior and medial L leg. Moderate pain on palpation of R leg - Neurological Exam Neurological Exam: Alert, Awake, Oriented x3 - Psychiatric Exam Psychiatric exam: Normal Affect, Normal Mood Assessment and Plan - Assessment and Plan (Free Text) Assessment: 57 year old male patient seen and evaluated for multiple chronic recurrent venous stasis ulcers Plan: Patient seen and evaluated at the bedside Discussed plan in details with attending Dr. Laguna Labs and vitals reviewed: afebrile Wounds cleaned with saline and dressings applied with xeroform, ABD, DSD, Kerlix and JOSE Patient tolerated the dressing change well Patient is stable from podiatry standpoint Will continue every other day dressing changes while patient is in-house
--- NOTE | 2018-06-09 00:01 | CP.PCM.PN ---
Subjective - Date & Time of Evaluation Date of Evaluation: 06/08/18 Time of Evaluation: 17:40 - Subjective Subjective: pt seen & examined , waiting for residential palcement, c/o pain in back , knee and left leg ulcer on wound care, antibiotics Objective - Vital Signs/Intake and Output Vital Signs (last 24 hours): Temp Pulse Resp BP Pulse Ox 98.2 F 80 22 149/80 98 06/08/18 16:00 06/08/18 16:00 06/08/18 16:00 06/08/18 17:37 06/08/18 16:00 Intake and Output: 06/08/18 06/09/18 18:59 06:59 Output Total 1300 Balance -1300 - Medications Medications: Current Medications Bacitracin (Bacitracin) 1 gm TOP DAILY [facility] Last Admin: 06/08/18 10:35 Dose: Not Given Benzocaine/Menthol (Cepacol Sore Throat) 1 matt MT Q6 [facility] Last Admin: 06/08/18 17:41 Dose: 1 matt Docusate Sodium (Colace) 100 mg PO DAILY [facility] Last Admin: 06/08/18 10:34 Dose: 100 mg Furosemide (Lasix) 80 mg PO BID [facility] Last Admin: 06/08/18 17:37 Dose: 80 mg Gabapentin (Neurontin) 300 mg PO TID [facility] Last Admin: 06/08/18 17:37 Dose: 300 mg Cefepime HCl (Maxipime Iv 1 Gm Premix) 1 gm in 50 mls @ 100 mls/hr IVPB Q12H [facility] PRN Reason: Protocol Last Admin: 06/08/18 16:52 Dose: 100 mls/hr Insulin Human Regular (Novolin R) 0 unit SC ACHS [facility] PRN Reason: Protocol Last Admin: 06/08/18 21:59 Dose: Not Given Levothyroxine Sodium (Synthroid) 75 mcg PO DAILY@0630 [facility] Last Admin: 06/08/18 06:22 Dose: 75 mcg Metformin HCl (Glucophage Xr) 1,000 mg PO BID [facility] Last Admin: 06/08/18 17:37 Dose: 1,000 mg Oxycodone HCl (Oxycontin Extended Release Tab) 80 mg PO Q6 [facility] Last Admin: 06/08/18 17:38 Dose: 80 mg Oxycodone/Acetaminophen (Percocet 5/325 Mg Tab) 2 tab PO Q4H PRN PRN Reason: Pain, severe (8-10) Stop: 06/09/18 08:58 Last Admin: 06/08/18 19:40 Dose: 2 tab - Labs Labs: 06/07/18 08:24 06/07/18 08:24 PT 16.6 SECONDS (9.7-12.2) H 06/08/18 07:22 INR 1.5 06/08/18 07:22 - Constitutional Appears: No Acute Distress, Chronically Ill - Head Exam Head Exam: ATRAUMATIC, NORMAL INSPECTION, NORMOCEPHALIC - Eye Exam Eye Exam: EOMI, Normal appearance, PERRL Pupil Exam: NORMAL ACCOMODATION, PERRL - Respiratory Exam Respiratory Exam: Decreased Breath Sounds, Rales, Rhonchi - Cardiovascular Exam Cardiovascular Exam: REGULAR RHYTHM, +S1, +S2. absent: Murmur - GI/Abdominal Exam GI & Abdominal Exam: Soft, Normal Bowel Sounds. 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
[2018-06-09] MEDS: oxyCODONE 80 mg ER Tab (oxyCONTIN) PO SCH ×4 (00:35→17:57)
[2018-06-09] MEDS: Benzocaine/Menthol (Cepacol) Lozenge MT SCH ×4 (00:36→17:55)
[2018-06-09] MEDS: Oxycodone/Acetaminophen 5/325 mg Tab PO PRN ×5 (02:39→23:08)
[2018-06-09] MEDS: Cefepime IV 1 gm in Dextrose 1 GM/50 ML BAG IVPB SCH ×2 (03:09→17:56)
[2018-06-09] MEDS: Levothyroxine 75 MCG TAB PO SCH (06:11)
[2018-06-09] MEDS: (Novolin R) Insulin Human Regular 100 units/ml vial SC SCH ×4 (08:36→21:45)
[2018-06-09 08:49] LABS: INR 1.6; PROTHROMBIN TIME 17.8 SECONDS (9.7-12.2)
[2018-06-09] MEDS: Bacitracin Ointment 30 GM TUBE TOP SCH (10:01)
--- NOTE | 2018-06-09 22:27 | CP.PCM.PN ---
Subjective - Date & Time of Evaluation Date of Evaluation: 06/09/18 Time of Evaluation: 19:00 - Subjective Subjective: Pt seen and examined at bedside, Objective - Vital Signs/Intake and Output Vital Signs (last 24 hours): Temp Pulse Resp BP Pulse Ox 97.6 F 71 20 136/80 96 06/09/18 15:00 06/09/18 15:00 06/09/18 15:00 06/09/18 17:55 06/09/18 15:00 Intake and Output: 06/09/18 06/10/18 18:59 06:59 Intake Total 200 300 Output Total 300 400 Balance -100 -100 - Medications Medications: Current Medications Bacitracin (Bacitracin) 1 gm TOP DAILY [facility] Last Admin: 06/09/18 10:01 Dose: Not Given Benzocaine/Menthol (Cepacol Sore Throat) 1 matt MT Q6 [facility] Last Admin: 06/09/18 17:55 Dose: 1 matt Docusate Sodium (Colace) 100 mg PO DAILY [facility] Last Admin: 06/09/18 10:01 Dose: 100 mg Furosemide (Lasix) 80 mg PO BID [facility] Last Admin: 06/09/18 17:55 Dose: 80 mg Gabapentin (Neurontin) 300 mg PO TID [facility] Last Admin: 06/09/18 17:56 Dose: 300 mg Cefepime HCl (Maxipime Iv 1 Gm Premix) 1 gm in 50 mls @ 100 mls/hr IVPB Q12H [facility] PRN Reason: Protocol Last Admin: 06/09/18 17:56 Dose: 100 mls/hr Insulin Human Regular (Novolin R) 0 unit SC ACHS [facility] PRN Reason: Protocol Last Admin: 06/09/18 21:45 Dose: Not Given Levothyroxine Sodium (Synthroid) 75 mcg PO DAILY@0630 [facility] Last Admin: 06/09/18 06:11 Dose: 75 mcg Metformin HCl (Glucophage Xr) 1,000 mg PO BID [facility] Last Admin: 06/09/18 17:55 Dose: 1,000 mg Oxycodone HCl (Oxycontin Extended Release Tab) 80 mg PO Q6 [facility] Last Admin: 06/09/18 17:57 Dose: 80 mg Oxycodone/Acetaminophen (Percocet 5/325 Mg Tab) 2 tab PO Q4H PRN PRN Reason: Pain, moderate (4-7) Stop: 06/12/18 13:12 Last Admin: 06/09/18 18:08 Dose: 2 tab - Labs Labs: 06/07/18 08:24 06/07/18 08:24 PT 17.8 SECONDS (9.7-12.2) H 06/09/18 08:35 INR 1.6 06/09/18 08:35 Assessment and Plan (1) Ambulatory dysfunction Status: Acute (2) Chronic skin ulcer of lower leg Status: Acute (3) Diabetes Status: Acute (4) Impaired mobility and ADLs Status: Acute (5) Nonhealing ulcer of left lower extremity Status: Acute (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
[2018-06-10] MEDS: Benzocaine/Menthol (Cepacol) Lozenge MT SCH ×4 (00:20→17:30)
[2018-06-10] MEDS: oxyCODONE 80 mg ER Tab (oxyCONTIN) PO SCH ×4 (00:20→17:27)
[2018-06-10] MEDS: Oxycodone/Acetaminophen 5/325 mg Tab PO PRN ×5 (03:08→21:43)
[2018-06-10] MEDS: Cefepime IV 1 gm in Dextrose 1 GM/50 ML BAG IVPB SCH ×2 (04:30→17:38)
[2018-06-10] MEDS: Levothyroxine 75 MCG TAB PO SCH (06:08)
[2018-06-10 08:53] LABS: INR 1.8; PROTHROMBIN TIME 19.2 SECONDS (9.7-12.2)
[2018-06-10] MEDS: (Novolin R) Insulin Human Regular 100 units/ml vial SC SCH ×5 (09:32→21:37)
[2018-06-10] MEDS: Bacitracin Ointment 30 GM TUBE TOP SCH (09:35)
--- NOTE | 2018-06-10 15:41 | CP.PCM.PN ---
Subjective - Date & Time of Evaluation Date of Evaluation: 06/10/18 Time of Evaluation: 15:39 - Subjective Subjective: Podiatry Progress Note - Dr. Laguna 57 year old male patient was seen and evaluated with attending Dr. Laguna for bilateral venous stasis leg ulcerations. Patient is not in acute distress. Patient is resting comfortably in bed AAOx3. Patient denies of having any acute overnight events. Patient has no other pedal complaints at this time and denies N/V/F/C/SOB/CP recently. Objective - Vital Signs/Intake and Output Vital Signs (last 24 hours): Temp Pulse Resp BP Pulse Ox 98.2 F 70 18 119/78 96 06/10/18 07:30 06/10/18 07:30 06/10/18 07:30 06/10/18 09:31 06/10/18 07:30 Intake and Output: 06/10/18 06/10/18 06:59 18:59 Intake Total 300 Output Total 3202 Balance -2902 - Medications Medications: Current Medications Bacitracin (Bacitracin) 1 gm TOP DAILY [facility] Last Admin: 06/10/18 09:35 Dose: Not Given Benzocaine/Menthol (Cepacol Sore Throat) 1 matt MT Q6 [facility] Last Admin: 06/10/18 11:33 Dose: 1 matt Docusate Sodium (Colace) 100 mg PO DAILY [facility] Last Admin: 06/10/18 09:31 Dose: 100 mg Furosemide (Lasix) 80 mg PO BID [facility] Last Admin: 06/10/18 09:31 Dose: 80 mg Gabapentin (Neurontin) 300 mg PO TID [facility] Last Admin: 06/10/18 13:27 Dose: 300 mg Cefepime HCl (Maxipime Iv 1 Gm Premix) 1 gm in 50 mls @ 100 mls/hr IVPB Q12H [facility] PRN Reason: Protocol Last Admin: 06/10/18 04:30 Dose: 100 mls/hr Insulin Human Regular (Novolin R) 0 unit SC ACHS [facility] PRN Reason: Protocol Last Admin: 06/10/18 11:36 Dose: 1 unit Levothyroxine Sodium (Synthroid) 75 mcg PO DAILY@0630 [facility] Last Admin: 06/10/18 06:08 Dose: 75 mcg Metformin HCl (Glucophage Xr) 1,000 mg PO BID [facility] Last Admin: 06/10/18 09:31 Dose: 1,000 mg Oxycodone HCl (Oxycontin Extended Release Tab) 80 mg PO Q6 [facility] Last Admin: 06/10/18 11:32 Dose: 80 mg Oxycodone/Acetaminophen (Percocet 5/325 Mg Tab) 2 tab PO Q4H PRN PRN Reason: Pain, moderate (4-7) Stop: 06/12/18 13:12 Last Admin: 06/10/18 13:27 Dose: 2 tab Warfarin Sodium (Coumadin) 10 mg PO 1800 [facility] Stop: 06/10/18 18:01 Warfarin Sodium (Coumadin) 1 mg PO 1800 [facility] Stop: 06/10/18 18:01 - Labs Labs: 06/07/18 08:24 06/07/18 08:24 PT 19.2 SECONDS (9.7-12.2) H 06/10/18 08:42 INR 1.8 06/10/18 08:42 - Constitutional Appears: Well, Non-toxic, No Acute Distress - Extremities Exam Additional comments: Lower extremity focused exam: Vasc: pedal pulses are non palpable due to edema B/L, Temp gradient warm to warm b/l, Cap refill < 3 sec to all digits, +1 pitting edema to bilaterally distal to tibial tuberosity Neuro: protective sensation diminished bilaterally, Gross sensation intact bilaterally Derm: Bilateral leg multiple ulcers noted at both legs. L worse than R. L side ulcers mainly posteromedial to the calf with serous drainage, No malodor , sharp edges, surrounded by erythema, Proximal ulcer mildly bleeding, base is granular, fibrotic 50/50. No tracking, No undermining, No probig to bone. R side: circumferential color and skin changes with multiple almost healed superficial ulcers with no malodor, sharp edges and fibrotic granular base 50: 50. No tracking, No undermining no probing to bone. MSK: Severe pain on palpation of posterior and medial L leg. Moderate pain on palpation of R leg - Neurological Exam Neurological Exam: Alert, Awake, Oriented x3 - Psychiatric Exam Psychiatric exam: Normal Affect, Normal Mood Assessment and Plan - Assessment and Plan (Free Text) Assessment: 57 year old male patient seen and evaluated for multiple chronic recurrent venous stasis ulcers Plan: Patient seen and evaluated with attending Dr. Laguna Labs and vitals reviewed: afebrile Wounds cleaned with saline and dressings applied with xeroform, ABD, DSD, Kerlix and JOSE Patient tolerated the dressing change well Patient is stable from podiatry standpoint Will continue every other day dressing changes while patient is in-house
[2018-06-11] MEDS: oxyCODONE 80 mg ER Tab (oxyCONTIN) PO SCH ×5 (00:27→23:51)
[2018-06-11] MEDS: Benzocaine/Menthol (Cepacol) Lozenge MT SCH ×5 (00:27→23:51)
[2018-06-11] MEDS: Oxycodone/Acetaminophen 5/325 mg Tab PO PRN ×4 (04:00→19:14)
[2018-06-11] MEDS: Cefepime IV 1 gm in Dextrose 1 GM/50 ML BAG IVPB SCH ×2 (04:02→16:55)
[2018-06-11] MEDS: Levothyroxine 75 MCG TAB PO SCH (06:03)
--- NOTE | 2018-06-11 07:24 | CP.PCM.PN ---
Subjective - Date & Time of Evaluation Date of Evaluation: 06/10/18 Time of Evaluation: 18:00 - Subjective Subjective: Pt is seen and examined, Objective - Vital Signs/Intake and Output Vital Signs (last 24 hours): Temp Pulse Resp BP Pulse Ox 98.0 F 79 20 165/76 H 94 L 06/10/18 23:25 06/10/18 23:25 06/10/18 23:25 06/10/18 23:25 06/10/18 23:25 Intake and Output: 06/11/18 06/11/18 06:59 18:59 Intake Total 470 Output Total 1400 Balance -930 - Medications Medications: Current Medications Bacitracin (Bacitracin) 1 gm TOP DAILY [facility] Last Admin: 06/10/18 09:35 Dose: Not Given Benzocaine/Menthol (Cepacol Sore Throat) 1 matt MT Q6 [facility] Last Admin: 06/11/18 00:27 Dose: 1 matt Docusate Sodium (Colace) 100 mg PO DAILY [facility] Last Admin: 06/10/18 09:31 Dose: 100 mg Furosemide (Lasix) 80 mg PO BID [facility] Last Admin: 06/10/18 17:31 Dose: 80 mg Gabapentin (Neurontin) 300 mg PO TID [facility] Last Admin: 06/10/18 17:28 Dose: 300 mg Cefepime HCl (Maxipime Iv 1 Gm Premix) 1 gm in 50 mls @ 100 mls/hr IVPB Q12H [facility] PRN Reason: Protocol Last Admin: 06/11/18 04:02 Dose: 100 mls/hr Insulin Human Regular (Novolin R) 0 unit SC ACHS [facility] PRN Reason: Protocol Last Admin: 06/10/18 21:37 Dose: Not Given Levothyroxine Sodium (Synthroid) 75 mcg PO DAILY@0630 [facility] Last Admin: 06/11/18 06:03 Dose: 75 mcg Metformin HCl (Glucophage Xr) 1,000 mg PO BID [facility] Last Admin: 06/10/18 17:29 Dose: 1,000 mg Oxycodone HCl (Oxycontin Extended Release Tab) 80 mg PO Q6 [facility] Last Admin: 06/11/18 06:03 Dose: 80 mg Oxycodone/Acetaminophen (Percocet 5/325 Mg Tab) 2 tab PO Q4H PRN PRN Reason: Pain, moderate (4-7) Stop: 06/12/18 13:12 Last Admin: 06/11/18 04:00 Dose: 2 tab - Labs Labs: 06/07/18 08:24 06/07/18 08:24 PT 19.2 SECONDS (9.7-12.2) H 06/10/18 08:42 INR 1.8 06/10/18 08:42 Assessment and Plan (1) Ambulatory dysfunction Status: Acute (2) Chronic skin ulcer of lower leg Status: Acute (3) Diabetes Status: Acute (4) Impaired mobility and ADLs Status: Acute (5) Nonhealing ulcer of left lower extremity Status: Acute (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
[2018-06-11] MEDS: (Novolin R) Insulin Human Regular 100 units/ml vial SC SCH ×3 (07:34→17:38)
[2018-06-11 08:03] LABS: INR 1.8; PROTHROMBIN TIME 19.6 SECONDS (9.7-12.2)
[2018-06-11] MEDS: Bacitracin Ointment 30 GM TUBE TOP SCH (09:21)
--- NOTE | 2018-06-12 00:10 | CP.PCM.PN ---
Subjective - Date & Time of Evaluation Date of Evaluation: 06/11/18 Time of Evaluation: 17:35 - Subjective Subjective: Pt seen and examined Objective - Vital Signs/Intake and Output Vital Signs (last 24 hours): Temp Pulse Resp BP Pulse Ox 98.3 F 76 20 115/80 98 06/11/18 15:00 06/11/18 15:00 06/11/18 15:00 06/11/18 18:16 06/11/18 15:00 Intake and Output: 06/11/18 06/12/18 18:59 06:59 Output Total 1000 Balance -1000 - Medications Medications: Current Medications Bacitracin (Bacitracin) 1 gm TOP DAILY [facility] Last Admin: 06/11/18 09:21 Dose: Not Given Benzocaine/Menthol (Cepacol Sore Throat) 1 matt MT Q6 [facility] Last Admin: 06/11/18 23:51 Dose: 1 matt Docusate Sodium (Colace) 100 mg PO DAILY [facility] Last Admin: 06/11/18 09:22 Dose: 100 mg Furosemide (Lasix) 80 mg PO BID [facility] Last Admin: 06/11/18 18:16 Dose: 80 mg Gabapentin (Neurontin) 300 mg PO TID [facility] Last Admin: 06/11/18 18:17 Dose: 300 mg Cefepime HCl (Maxipime Iv 1 Gm Premix) 1 gm in 50 mls @ 100 mls/hr IVPB Q12H [facility] PRN Reason: Protocol Last Admin: 06/11/18 16:55 Dose: 100 mls/hr Insulin Human Regular (Novolin R) 0 unit SC ACHS [facility] PRN Reason: Protocol Last Admin: 06/11/18 17:38 Dose: Not Given Levothyroxine Sodium (Synthroid) 75 mcg PO DAILY@0630 [facility] Last Admin: 06/11/18 06:03 Dose: 75 mcg Metformin HCl (Glucophage Xr) 1,000 mg PO BID [facility] Last Admin: 06/11/18 18:17 Dose: 1,000 mg Oxycodone HCl (Oxycontin Extended Release Tab) 80 mg PO Q6 [facility] Last Admin: 06/11/18 23:51 Dose: 80 mg Oxycodone/Acetaminophen (Percocet 5/325 Mg Tab) 2 tab PO Q4H PRN PRN Reason: Pain, moderate (4-7) Stop: 06/12/18 13:12 Last Admin: 06/11/18 19:14 Dose: 2 tab - Labs Labs: 06/07/18 08:24 06/07/18 08:24 PT 19.6 SECONDS (9.7-12.2) H 06/11/18 07:48 INR 1.8 06/11/18 07:48 Assessment and Plan (1) Ambulatory dysfunction Status: Acute (2) Chronic skin ulcer of lower leg Status: Acute (3) Diabetes Status: Acute (4) Impaired mobility and ADLs Status: Acute (5) Nonhealing ulcer of left lower extremity Status: Acute (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
[2018-06-12] MEDS: Oxycodone/Acetaminophen 5/325 mg Tab PO PRN ×5 (04:43→22:40)
[2018-06-12] MEDS: Cefepime IV 1 gm in Dextrose 1 GM/50 ML BAG IVPB SCH ×2 (04:45→15:52)
[2018-06-12] MEDS: Benzocaine/Menthol (Cepacol) Lozenge MT SCH ×3 (05:54→17:17)
[2018-06-12] MEDS: Levothyroxine 75 MCG TAB PO SCH (05:54)
[2018-06-12] MEDS: oxyCODONE 80 mg ER Tab (oxyCONTIN) PO SCH ×3 (05:55→17:14)
[2018-06-12 06:28] LABS: INR 2.2; PROTHROMBIN TIME 24.4 SECONDS (9.7-12.2)
[2018-06-12] MEDS: (Novolin R) Insulin Human Regular 100 units/ml vial SC SCH ×4 (07:25→22:00)
[2018-06-12] MEDS: Bacitracin Ointment 30 GM TUBE TOP SCH (09:56)
--- NOTE | 2018-06-12 11:25 | CP.PCM.PN ---
Subjective - Date & Time of Evaluation Date of Evaluation: 06/12/18 Time of Evaluation: 11:24 - Subjective Subjective: Podiatry Progress Note - Dr. Laguna 57 year old male patient was seen and evaluated with attending Dr. Laguna for bilateral venous stasis leg ulcerations. Patient is resting comfortably in bed AAOx3. Patient denies of having any acute overnight events. Patient has no other pedal complaints at this time and denies N/V/F/C/SOB/CP recently. Objective - Vital Signs/Intake and Output Vital Signs (last 24 hours): Temp Pulse Resp BP Pulse Ox 98.2 F 79 18 120/70 99 06/12/18 07:40 06/12/18 07:40 06/12/18 07:40 06/12/18 09:51 06/12/18 07:40 Intake and Output: 06/12/18 06/12/18 06:59 18:59 Intake Total 150 Output Total 2900 Balance -2750 - Medications Medications: Current Medications Bacitracin (Bacitracin) 1 gm TOP DAILY [facility] Last Admin: 06/12/18 09:56 Dose: Not Given Benzocaine/Menthol (Cepacol Sore Throat) 1 matt MT Q6 [facility] Last Admin: 06/12/18 05:54 Dose: 1 matt Docusate Sodium (Colace) 100 mg PO DAILY [facility] Last Admin: 06/12/18 09:52 Dose: 100 mg Furosemide (Lasix) 80 mg PO BID [facility] Last Admin: 06/12/18 09:51 Dose: 80 mg Gabapentin (Neurontin) 300 mg PO TID [facility] Last Admin: 06/12/18 09:52 Dose: 300 mg Cefepime HCl (Maxipime Iv 1 Gm Premix) 1 gm in 50 mls @ 100 mls/hr IVPB Q12H [facility] PRN Reason: Protocol Last Admin: 06/12/18 04:45 Dose: 100 mls/hr Insulin Human Regular (Novolin R) 0 unit SC ACHS [facility] PRN Reason: Protocol Last Admin: 06/12/18 07:25 Dose: Not Given Levothyroxine Sodium (Synthroid) 75 mcg PO DAILY@0630 [facility] Last Admin: 06/12/18 05:54 Dose: 75 mcg Metformin HCl (Glucophage Xr) 1,000 mg PO BID [facility] Last Admin: 06/12/18 09:52 Dose: 1,000 mg Oxycodone HCl (Oxycontin Extended Release Tab) 80 mg PO Q6 [facility] Last Admin: 06/12/18 05:55 Dose: 80 mg Oxycodone/Acetaminophen (Percocet 5/325 Mg Tab) 2 tab PO Q4H PRN PRN Reason: Pain, moderate (4-7) Stop: 06/12/18 13:12 Last Admin: 06/12/18 08:48 Dose: 2 tab Warfarin Sodium (Coumadin) 5 mg PO 1800 [facility] Stop: 06/12/18 18:01 - Labs Labs: 06/07/18 08:24 06/07/18 08:24 PT 24.4 SECONDS (9.7-12.2) H 06/12/18 06:17 INR 2.2 06/12/18 06:17 - Constitutional Appears: Well, Non-toxic, No Acute Distress - Extremities Exam Additional comments: Lower extremity focused exam: Vasc: pedal pulses are non palpable due to edema B/L, Temp gradient warm to warm b/l, Cap refill < 3 sec to all digits, +1 pitting edema to bilaterally distal to tibial tuberosity Neuro: protective sensation diminished bilaterally, Gross sensation intact bilaterally Derm: Bilateral leg multiple ulcers noted at both legs. L worse than R. L side ulcers mainly posteromedial to the calf with serous drainage, No malodor , sharp edges, surrounded by erythema, Proximal ulcer mildly bleeding, base is granular, fibrotic 50/50. No tracking, No undermining, No probig to bone. R side: circumferential color and skin changes with multiple almost healed superficial ulcers with no malodor, sharp edges and fibrotic granular base 50: 50. No tracking, No undermining no probing to bone. MSK: Severe pain on palpation of posterior and medial L leg. Moderate pain on palpation of R leg - Neurological Exam Neurological Exam: Alert, Awake, Oriented x3 - Psychiatric Exam Psychiatric exam: Normal Affect, Normal Mood Assessment and Plan - Assessment and Plan (Free Text) Assessment: 57 year old male patient seen and evaluated for multiple chronic recurrent venous stasis ulcers Plan: Patient seen and evaluated with attending Dr. Laguna Labs and vitals reviewed: afebrile Wounds cleaned with saline and dressings applied with xeroform, ABD, DSD, Kerlix and JOSE Patient tolerated the dressing change well Patient is stable from podiatry standpoint Will continue every other day dressing changes while patient is in-house
[2018-06-13] MEDS: oxyCODONE 80 mg ER Tab (oxyCONTIN) PO SCH ×4 (00:20→18:03)
[2018-06-13] MEDS: Benzocaine/Menthol (Cepacol) Lozenge MT SCH ×4 (00:21→18:18)
--- NOTE | 2018-06-13 02:12 | CP.PCM.PN ---
Subjective - Date & Time of Evaluation Date of Evaluation: 06/12/18 Time of Evaluation: 17:00 - Subjective Subjective: Pt seen and examined at bedside, his INR is 2.2 he is on coumadin, he c/o left back pain, neck pain and he is waiting for [facility] placement left leg ulcer infected on antibiotics, ID and podiatry following pt Objective - Vital Signs/Intake and Output Vital Signs (last 24 hours): Temp Pulse Resp BP Pulse Ox 98.3 F 74 20 128/68 97 06/12/18 23:15 06/12/18 23:15 06/12/18 23:15 06/12/18 23:15 06/12/18 23:15 Intake and Output: 06/12/18 06/13/18 18:59 06:59 Intake Total 550 Output Total 1100 Balance -550 - Medications Medications: Current Medications Bacitracin (Bacitracin) 1 gm TOP DAILY [facility] Last Admin: 06/12/18 09:56 Dose: Not Given Benzocaine/Menthol (Cepacol Sore Throat) 1 matt MT Q6 [facility] Last Admin: 06/13/18 00:21 Dose: 1 matt Docusate Sodium (Colace) 100 mg PO DAILY [facility] Last Admin: 06/12/18 09:52 Dose: 100 mg Furosemide (Lasix) 80 mg PO BID [facility] Last Admin: 06/12/18 17:17 Dose: 80 mg Gabapentin (Neurontin) 300 mg PO TID [facility] Last Admin: 06/12/18 17:16 Dose: 300 mg Cefepime HCl (Maxipime Iv 1 Gm Premix) 1 gm in 50 mls @ 100 mls/hr IVPB Q12H [facility] PRN Reason: Protocol Last Admin: 06/12/18 15:52 Dose: 100 mls/hr Insulin Human Regular (Novolin R) 0 unit SC ACHS [facility] PRN Reason: Protocol Last Admin: 06/12/18 16:22 Dose: Not Given Levothyroxine Sodium (Synthroid) 75 mcg PO DAILY@0630 [facility] Last Admin: 06/12/18 05:54 Dose: 75 mcg Metformin HCl (Glucophage Xr) 1,000 mg PO BID [facility] Last Admin: 06/12/18 17:16 Dose: 1,000 mg Oxycodone HCl (Oxycontin Extended Release Tab) 80 mg PO Q6 [facility] Last Admin: 06/13/18 00:20 Dose: 80 mg Oxycodone/Acetaminophen (Percocet 5/325 Mg Tab) 2 tab PO Q4H PRN PRN Reason: 4-8 Stop: 06/15/18 13:32 Last Admin: 06/12/18 22:40 Dose: 2 tab - Labs Labs: 06/07/18 08:24 06/07/18 08:24 PT 24.4 SECONDS (9.7-12.2) H 06/12/18 06:17 INR 2.2 06/12/18 06:17 - Constitutional Appears: No Acute Distress, Chronically Ill - Head Exam Head Exam: ATRAUMATIC, NORMAL INSPECTION, NORMOCEPHALIC - Eye Exam Eye Exam: EOMI, Normal appearance, PERRL Pupil Exam: NORMAL ACCOMODATION, PERRL - Respiratory Exam Respiratory Exam: Decreased Breath Sounds, Rales, Rhonchi - Cardiovascular Exam Cardiovascular Exam: REGULAR RHYTHM, +S1, +S2. absent: Murmur - GI/Abdominal Exam GI & Abdominal Exam: Soft, Normal Bowel Sounds. absent: Tenderness - Back Exam Back Exam: muscle spasm, paraspinal tenderness - Psychiatric Exam Psychiatric exam: Anxious - Skin Skin Exam: Erythema, Rash, Vesicles Assessment and Plan (1) Ambulatory dysfunction Status: Acute (2) Chronic skin ulcer of lower leg Status: Acute (3) Diabetes Status: Acute (4) Impaired mobility and ADLs Status: Acute (5) Nonhealing ulcer of left lower extremity Status: Acute (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
[2018-06-13] MEDS: Oxycodone/Acetaminophen 5/325 mg Tab PO PRN ×5 (03:23→21:07)
[2018-06-13] MEDS: Cefepime IV 1 gm in Dextrose 1 GM/50 ML BAG IVPB SCH ×2 (03:25→16:39)
[2018-06-13] MEDS: Levothyroxine 75 MCG TAB PO SCH (06:21)
[2018-06-13] MEDS: (Novolin R) Insulin Human Regular 100 units/ml vial SC SCH ×4 (07:27→22:00)
[2018-06-13] MEDS: Bacitracin Ointment 30 GM TUBE TOP SCH (09:43)
[2018-06-13 11:46] LABS: BASO % 0.7 % (0.0-2.0); EOS # 0.3 K/uL (0.0-0.7); EOS % 4.8 % (0.0-4.0); HEMOGLOBIN 11.2 g/dL (12.0-18.0); LYMPH # 1.3 K/uL (1.0-4.3); LYMPH % 21.5 % (20.0-40.0); MEAN CORPUSCULAR HGB CONC 33.7 g/dL (33.0-37.0); MEAN PLATELET VOLUME 9.6 fL (7.2-11.7); MONO # 0.5 K/uL (0.0-0.8); MONO % 8.5 % (0.0-10.0); NEUT # 3.8 K/uL (1.8-7.0); NEUT % 64.5 % (50.0-75.0); RBC 4.01 Mil/uL (4.40-5.90); RED CELL DISTRIBUTION WIDTH 16.9 % (11.5-14.5); WHITE BLOOD COUNT 5.9 K/uL (4.8-10.8)
[2018-06-13 11:51] LABS: INR 2.7
[2018-06-13 11:52] LABS: PROTHROMBIN TIME 30.1 SECONDS (9.7-12.2)
[2018-06-13 12:02] LABS: BLOOD UREA NITROGEN 37 mg/dL (9-20); CALCIUM 8.7 mg/dl (8.6-10.4); GFR AFRICAN-AMERICAN > 60; GFR NON-AFRICAN AMERICAN > 60
--- NOTE | 2018-06-13 15:03 | CP.PCM.PN ---
Subjective - Date & Time of Evaluation Date of Evaluation: 06/13/18 Time of Evaluation: 08:00 - Subjective Subjective: 57 year old male patient was seen and evaluated for bilateral venous stasis leg ulcerations. Patient is resting comfortably in bed AAOx3. Patient denies of having any acute overnight events. Objective - Vital Signs/Intake and Output Vital Signs (last 24 hours): Temp Pulse Resp BP Pulse Ox 98.0 F 64 18 140/80 96 06/13/18 07:40 06/13/18 07:40 06/13/18 07:40 06/13/18 09:41 06/13/18 07:40 Intake and Output: 06/13/18 06/13/18 06:59 18:59 Intake Total 650 600 Output Total 1800 Balance -1150 600 - Medications Medications: Current Medications Bacitracin (Bacitracin) 1 gm TOP DAILY [facility] Last Admin: 06/13/18 09:43 Dose: 1 applic Benzocaine/Menthol (Cepacol Sore Throat) 1 matt MT Q6 [facility] Last Admin: 06/13/18 12:00 Dose: 1 matt Docusate Sodium (Colace) 100 mg PO DAILY [facility] Last Admin: 06/13/18 09:41 Dose: 100 mg Furosemide (Lasix) 80 mg PO BID [facility] Last Admin: 06/13/18 09:41 Dose: 80 mg Gabapentin (Neurontin) 300 mg PO TID [facility] Last Admin: 06/13/18 13:02 Dose: 300 mg Cefepime HCl (Maxipime Iv 1 Gm Premix) 1 gm in 50 mls @ 100 mls/hr IVPB Q12H [facility] PRN Reason: Protocol Last Admin: 06/13/18 03:25 Dose: 100 mls/hr Insulin Human Regular (Novolin R) 0 unit SC ACHS [facility] PRN Reason: Protocol Last Admin: 06/13/18 12:21 Dose: 1 unit Levothyroxine Sodium (Synthroid) 75 mcg PO DAILY@0630 [facility] Last Admin: 06/13/18 06:21 Dose: 75 mcg Metformin HCl (Glucophage Xr) 1,000 mg PO BID [facility] Last Admin: 06/13/18 09:42 Dose: 1,000 mg Oxycodone HCl (Oxycontin Extended Release Tab) 80 mg PO Q6 [facility] Last Admin: 06/13/18 12:15 Dose: 80 mg Oxycodone/Acetaminophen (Percocet 5/325 Mg Tab) 2 tab PO Q4H PRN PRN Reason: 4-8 Stop: 06/15/18 13:32 Last Admin: 06/13/18 11:37 Dose: 2 tab Warfarin Sodium (Coumadin) 1 mg PO 1800 [facility] Stop: 06/13/18 18:01 Warfarin Sodium (Coumadin) 10 mg PO DAILY@1800 [facility] Stop: 06/13/18 18:01 - Labs Labs: 06/13/18 11:36 06/13/18 11:36 PT 30.1 SECONDS (9.7-12.2) H* D 06/13/18 11:36 INR 2.7 D 06/13/18 11:36 - Constitutional Appears: Non-toxic, Chronically Ill - Head Exam Head Exam: NORMOCEPHALIC - Eye Exam Eye Exam: PERRL - ENT Exam ENT Exam: Mucous Membranes Dry - Neck Exam Neck Exam: absent: Lymphadenopathy - Respiratory Exam Respiratory Exam: Decreased Breath Sounds - Cardiovascular Exam Cardiovascular Exam: REGULAR RHYTHM - GI/Abdominal Exam GI & Abdominal Exam: Distended - Rectal Exam Rectal Exam: Deferred - Exam Exam: NORMAL INSPECTION - Extremities Exam Extremities Exam: Pedal Edema - Back Exam Back Exam: absent: CVA tenderness (L), CVA tenderness (R) Assessment and Plan (1) Ambulatory dysfunction Status: Acute (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
[2018-06-14] MEDS: oxyCODONE 80 mg ER Tab (oxyCONTIN) PO SCH ×4 (00:31→17:30)
[2018-06-14] MEDS: Benzocaine/Menthol (Cepacol) Lozenge MT SCH ×4 (00:32→17:31)
[2018-06-14] MEDS: Oxycodone/Acetaminophen 5/325 mg Tab PO PRN ×5 (01:26→21:40)
[2018-06-14] MEDS: Cefepime IV 1 gm in Dextrose 1 GM/50 ML BAG IVPB SCH ×2 (03:19→17:00)
[2018-06-14] MEDS: Levothyroxine 75 MCG TAB PO SCH (05:44)
[2018-06-14] MEDS: (Novolin R) Insulin Human Regular 100 units/ml vial SC SCH ×4 (07:35→22:25)
--- NOTE | 2018-06-14 10:15 | CP.PCM.PN ---
Subjective - Date & Time of Evaluation Date of Evaluation: 06/14/18 Time of Evaluation: 18:00 - Subjective Subjective: Pt see and examined, his INR is 2.2 he is on coumadin, he c/o left back pain, neck pain and he is waiting for [facility] placement left leg ulcer infected on antibiotics, ID and podiatry following pt Objective - Vital Signs/Intake and Output Vital Signs (last 24 hours): Temp Pulse Resp BP Pulse Ox 97.9 F 71 18 128/81 100 06/14/18 07:35 06/14/18 09:36 06/14/18 07:35 06/14/18 09:38 06/14/18 07:35 Intake and Output: 06/14/18 06/14/18 06:59 18:59 Intake Total 820 Output Total 1800 Balance -980 - Medications Medications: Current Medications Bacitracin (Bacitracin) 1 gm TOP DAILY [facility] Last Admin: 06/13/18 09:43 Dose: 1 applic Benzocaine/Menthol (Cepacol Sore Throat) 1 matt MT Q6 [facility] Last Admin: 06/14/18 05:45 Dose: 1 matt Docusate Sodium (Colace) 100 mg PO DAILY [facility] Last Admin: 06/14/18 09:37 Dose: 100 mg Furosemide (Lasix) 80 mg PO BID [facility] Last Admin: 06/14/18 09:38 Dose: 80 mg Gabapentin (Neurontin) 300 mg PO TID [facility] Last Admin: 06/14/18 09:37 Dose: 300 mg Cefepime HCl (Maxipime Iv 1 Gm Premix) 1 gm in 50 mls @ 100 mls/hr IVPB Q12H [facility] PRN Reason: Protocol Last Admin: 06/14/18 03:19 Dose: 100 mls/hr Insulin Human Regular (Novolin R) 0 unit SC ACHS [facility] PRN Reason: Protocol Last Admin: 06/14/18 07:35 Dose: Not Given Levothyroxine Sodium (Synthroid) 75 mcg PO DAILY@0630 [facility] Last Admin: 06/14/18 05:44 Dose: 75 mcg Metformin HCl (Glucophage Xr) 1,000 mg PO BID [facility] Last Admin: 06/14/18 09:39 Dose: 1,000 mg Oxycodone HCl (Oxycontin Extended Release Tab) 80 mg PO Q6 [facility] Last Admin: 06/14/18 05:45 Dose: 80 mg Oxycodone/Acetaminophen (Percocet 5/325 Mg Tab) 2 tab PO Q4H PRN PRN Reason: 4-8 Stop: 06/15/18 13:32 Last Admin: 06/14/18 09:37 Dose: 2 tab - Labs Labs: 06/13/18 11:36 06/13/18 11:36 PT 30.1 SECONDS (9.7-12.2) H* D 06/13/18 11:36 INR 2.7 D 06/13/18 11:36 Assessment and Plan (1) Ambulatory dysfunction Status: Acute (2) Chronic skin ulcer of lower leg Status: Acute (3) Diabetes Status: Acute (4) Impaired mobility and ADLs Status: Acute (5) Nonhealing ulcer of left lower extremity Status: Acute (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
--- NOTE | 2018-06-14 10:15 | CP.PCM.PN ---
Subjective - Date & Time of Evaluation Date of Evaluation: 06/13/18 Time of Evaluation: 18:00 - Subjective Subjective: Pt see and examined, his INR is 2.2 he is on coumadin, he c/o left back pain, neck pain and he is waiting for [facility] placement left leg ulcer infected on antibiotics, ID and podiatry following pt Objective - Vital Signs/Intake and Output Vital Signs (last 24 hours): Temp Pulse Resp BP Pulse Ox 97.9 F 71 18 128/81 100 06/14/18 07:35 06/14/18 09:36 06/14/18 07:35 06/14/18 09:38 06/14/18 07:35 Intake and Output: 06/14/18 06/14/18 06:59 18:59 Intake Total 820 Output Total 1800 Balance -980 - Medications Medications: Current Medications Bacitracin (Bacitracin) 1 gm TOP DAILY [facility] Last Admin: 06/13/18 09:43 Dose: 1 applic Benzocaine/Menthol (Cepacol Sore Throat) 1 matt MT Q6 [facility] Last Admin: 06/14/18 05:45 Dose: 1 matt Docusate Sodium (Colace) 100 mg PO DAILY [facility] Last Admin: 06/14/18 09:37 Dose: 100 mg Furosemide (Lasix) 80 mg PO BID [facility] Last Admin: 06/14/18 09:38 Dose: 80 mg Gabapentin (Neurontin) 300 mg PO TID [facility] Last Admin: 06/14/18 09:37 Dose: 300 mg Cefepime HCl (Maxipime Iv 1 Gm Premix) 1 gm in 50 mls @ 100 mls/hr IVPB Q12H [facility] PRN Reason: Protocol Last Admin: 06/14/18 03:19 Dose: 100 mls/hr Insulin Human Regular (Novolin R) 0 unit SC ACHS [facility] PRN Reason: Protocol Last Admin: 06/14/18 07:35 Dose: Not Given Levothyroxine Sodium (Synthroid) 75 mcg PO DAILY@0630 [facility] Last Admin: 06/14/18 05:44 Dose: 75 mcg Metformin HCl (Glucophage Xr) 1,000 mg PO BID [facility] Last Admin: 06/14/18 09:39 Dose: 1,000 mg Oxycodone HCl (Oxycontin Extended Release Tab) 80 mg PO Q6 [facility] Last Admin: 06/14/18 05:45 Dose: 80 mg Oxycodone/Acetaminophen (Percocet 5/325 Mg Tab) 2 tab PO Q4H PRN PRN Reason: 4-8 Stop: 06/15/18 13:32 Last Admin: 06/14/18 09:37 Dose: 2 tab - Labs Labs: 06/13/18 11:36 06/13/18 11:36 PT 30.1 SECONDS (9.7-12.2) H* D 06/13/18 11:36 INR 2.7 D 06/13/18 11:36 - Constitutional Appears: No Acute Distress - Head Exam Head Exam: ATRAUMATIC, NORMAL INSPECTION, NORMOCEPHALIC - Eye Exam Eye Exam: EOMI, Normal appearance, PERRL Pupil Exam: NORMAL ACCOMODATION, PERRL - Respiratory Exam Respiratory Exam: Decreased Breath Sounds, Rales, Rhonchi - Cardiovascular Exam Cardiovascular Exam: REGULAR RHYTHM, +S1, +S2. absent: Murmur - GI/Abdominal Exam GI & Abdominal Exam: Soft, Normal Bowel Sounds. absent: Tenderness - Rectal Exam Rectal Exam: Deferred - Back Exam Back Exam: NORMAL INSPECTION Assessment and Plan (1) Ambulatory dysfunction Status: Acute (2) Chronic skin ulcer of lower leg Status: Acute (3) Diabetes Status: Acute (4) Impaired mobility and ADLs Status: Acute (5) Nonhealing ulcer of left lower extremity Status: Acute (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
[2018-06-14] MEDS: Bacitracin Ointment 30 GM TUBE TOP SCH (11:35)
--- NOTE | 2018-06-14 18:46 | CP.PCM.PN ---
Subjective - Date & Time of Evaluation Date of Evaluation: 06/14/18 Time of Evaluation: 14:00 - Subjective Subjective: Podiatry - Dr. Laguna 58M seen and examined at bedside for bilateral venous stasis lower extremity ulcerations. No acute events overnight. Reports pain to lower extremities, L>R. No new pedal complaints. Denies N/V/F/D/C/SOB/MABRY/dizziness. Objective - Vital Signs/Intake and Output Vital Signs (last 24 hours): Temp Pulse Resp BP Pulse Ox 97.8 F 88 20 130/70 96 06/14/18 15:00 06/14/18 15:00 06/14/18 15:00 06/14/18 17:32 06/14/18 15:00 Intake and Output: 06/14/18 06/14/18 06:59 18:59 Intake Total 820 450 Output Total 1800 Balance -980 450 - Medications Medications: Current Medications Bacitracin (Bacitracin) 1 gm TOP DAILY [facility] Last Admin: 06/14/18 11:35 Dose: 1 applic Benzocaine/Menthol (Cepacol Sore Throat) 1 matt MT Q6 [facility] Last Admin: 06/14/18 17:31 Dose: 1 matt Docusate Sodium (Colace) 100 mg PO DAILY [facility] Last Admin: 06/14/18 09:37 Dose: 100 mg Furosemide (Lasix) 80 mg PO BID [facility] Last Admin: 06/14/18 17:32 Dose: 80 mg Gabapentin (Neurontin) 300 mg PO TID [facility] Last Admin: 06/14/18 17:31 Dose: 300 mg Cefepime HCl (Maxipime Iv 1 Gm Premix) 1 gm in 50 mls @ 100 mls/hr IVPB Q12H [facility] PRN Reason: Protocol Last Admin: 06/14/18 17:00 Dose: 100 mls/hr Insulin Human Regular (Novolin R) 0 unit SC ACHS [facility] PRN Reason: Protocol Last Admin: 06/14/18 17:00 Dose: Not Given Levothyroxine Sodium (Synthroid) 75 mcg PO DAILY@0630 [facility] Last Admin: 06/14/18 05:44 Dose: 75 mcg Metformin HCl (Glucophage Xr) 1,000 mg PO BID [facility] Last Admin: 06/14/18 17:32 Dose: 1,000 mg Oxycodone HCl (Oxycontin Extended Release Tab) 80 mg PO Q6 [facility] Last Admin: 06/14/18 17:30 Dose: 80 mg Oxycodone/Acetaminophen (Percocet 5/325 Mg Tab) 2 tab PO Q4H PRN PRN Reason: 4-8 Stop: 06/15/18 13:32 Last Admin: 06/14/18 14:41 Dose: 2 tab - Labs Labs: 06/13/18 11:36 06/13/18 11:36 PT 30.1 SECONDS (9.7-12.2) H* D 06/13/18 11:36 INR 2.7 D 06/13/18 11:36 - Constitutional Appears: Well, Non-toxic, No Acute Distress - Extremities Exam Additional comments: Lower extremity focused exam: Vasc: pedal pulses are non palpable due to edema B/L, Temp gradient warm to warm b/l, Cap refill < 3 sec to all digits, +1 pitting edema to bilaterally distal to tibial tuberosity Neuro: protective sensation diminished bilaterally, Gross sensation intact bilaterally Derm: Bilateral leg multiple ulcers noted at both legs. L worse than R. L side ulcers mainly posteromedial to the calf with serous drainage, No malodor , sharp edges, surrounded by erythema, Proximal ulcer mildly bleeding, base is granular, fibrotic 50/50. No tracking, No undermining, No probig to bone. R side: circumferential color and skin changes with multiple almost healed superficial ulcers with no malodor, sharp edges and fibrotic granular base 50: 50. No tracking, No undermining no probing to bone. MSK: Severe pain on palpation of posterior and medial L leg. Moderate pain on palpation of R leg - Neurological Exam Neurological Exam: Alert, Awake, Oriented x3 - Psychiatric Exam Psychiatric exam: Normal Affect, Normal Mood Assessment and Plan - Assessment and Plan (Free Text) Assessment: 58M with multiple chronic recurrent venous stasis ulcers Plan: Patient seen and evaluated Discussed with attending, Dr. Laguna Continue local wound care - QOD saline cleanse, xeroform, DSD, JOSE Continue abx per ID - Cefepime Pain control per primary Patient stable from podiatry standpoint Podiatry will follow
[2018-06-15] MEDS: Benzocaine/Menthol (Cepacol) Lozenge MT SCH ×4 (00:16→18:23)
[2018-06-15] MEDS: oxyCODONE 80 mg ER Tab (oxyCONTIN) PO SCH ×4 (00:16→18:26)
[2018-06-15] MEDS: Cefepime IV 1 gm in Dextrose 1 GM/50 ML BAG IVPB SCH ×2 (03:38→17:00)
[2018-06-15] MEDS: Oxycodone/Acetaminophen 5/325 mg Tab PO PRN ×5 (03:38→23:37)
[2018-06-15] MEDS: Levothyroxine 75 MCG TAB PO SCH (05:54)
[2018-06-15] MEDS: (Novolin R) Insulin Human Regular 100 units/ml vial SC SCH ×4 (07:20→22:30)
[2018-06-15 08:00] LABS: INR 2.8; PROTHROMBIN TIME 30.8 SECONDS (9.7-12.2)
--- NOTE | 2018-06-15 08:23 | PN ---
DATE: 06/03/2018 CHIEF COMPLAINT: The patient has left leg pain. GENERAL: No fever, no chills. He also has some sore throat. No nausea or vomiting. LUNGS: Clear to. VITAL SIGNS: Blood pressure 130/78, pulse 77, respiratory rate 20, temperature 98.1. RESPIRATORY: Lungs are clear. CARDIOVASCULAR: S1, S2 regular without cellulitis. EXTREMITIES: 1. Left leg venous thrombosis. 2. Hypertension. 3. Type 2 diabetes. PLAN: Medical management subacute alf placement. Monitor the patient. DENIS
[2018-06-15] MEDS: Bacitracin Ointment 30 GM TUBE TOP SCH (09:39)
--- NOTE | 2018-06-15 10:52 | CP.PCM.PN ---
Subjective - Date & Time of Evaluation Date of Evaluation: 06/15/18 Time of Evaluation: 08:35 - Subjective Subjective: Podiatry - Dr. Laguna 58M seen and examined at bedside for bilateral venous stasis lower extremity ulcerations. No acute events overnight. Patient complains of pain in LLE wounds today; offers no complaints to R leg. Denies N/V/F/D/C/SOB/MABRY/dizziness. Objective - Vital Signs/Intake and Output Vital Signs (last 24 hours): Temp Pulse Resp BP Pulse Ox 97.5 F L 75 18 139/70 99 06/15/18 07:30 06/15/18 09:33 06/15/18 07:30 06/15/18 09:37 06/15/18 07:30 Intake and Output: 06/15/18 06/15/18 06:59 18:59 Intake Total 1180 Output Total 1675 Balance -495 - Medications Medications: Current Medications Bacitracin (Bacitracin) 1 gm TOP DAILY [facility] Last Admin: 06/15/18 09:39 Dose: 1 applic Benzocaine/Menthol (Cepacol Sore Throat) 1 matt MT Q6 [facility] Last Admin: 06/15/18 05:54 Dose: 1 matt Docusate Sodium (Colace) 100 mg PO DAILY [facility] Last Admin: 06/15/18 09:36 Dose: 100 mg Furosemide (Lasix) 80 mg PO BID [facility] Last Admin: 06/15/18 09:37 Dose: 80 mg Gabapentin (Neurontin) 300 mg PO TID [facility] Last Admin: 06/15/18 09:36 Dose: 300 mg Cefepime HCl (Maxipime Iv 1 Gm Premix) 1 gm in 50 mls @ 100 mls/hr IVPB Q12H [facility] PRN Reason: Protocol Last Admin: 06/15/18 03:38 Dose: 100 mls/hr Insulin Human Regular (Novolin R) 0 unit SC ACHS [facility] PRN Reason: Protocol Last Admin: 06/15/18 07:20 Dose: Not Given Levothyroxine Sodium (Synthroid) 75 mcg PO DAILY@0630 [facility] Last Admin: 06/15/18 05:54 Dose: 75 mcg Metformin HCl (Glucophage Xr) 1,000 mg PO BID [facility] Last Admin: 06/15/18 09:36 Dose: 1,000 mg Oxycodone HCl (Oxycontin Extended Release Tab) 80 mg PO Q6 [facility] Last Admin: 06/15/18 05:54 Dose: 80 mg Oxycodone/Acetaminophen (Percocet 5/325 Mg Tab) 2 tab PO Q4H PRN PRN Reason: 4-8 Stop: 06/15/18 13:32 Last Admin: 06/15/18 08:00 Dose: 2 tab - Labs Labs: 06/13/18 11:36 06/13/18 11:36 PT 30.8 SECONDS (9.7-12.2) H* 06/15/18 07:33 INR 2.8 06/15/18 07:33 - Constitutional Appears: Well, Non-toxic, No Acute Distress - Extremities Exam Additional comments: Lower extremity focused exam: Vasc: DP/PT pulses nonpalpable secondary to edema. +1 pitting edema noted to b/ l. CFT <3 seconds to digits. Temperature gradient warm to warm b/l. Neuro: Gross sensation diminished b/l. Derm: Multiple ulcerations of varying stages, L>R LLE = full thickness ulceration noted to calf with sanguinous drainage present, epithelializing; periwound erythema present; no purulence; no fluctuance; no undermining. Scattered full thickness ulcerations noted to anterior leg noted to be epithelializing; minimal periwound erythema present RLE = scattered ulcerations noted to anterolateral aspect of right leg appears to be epithelializing; minimal periwound erythema present; minimal serosanguinous drainage present; no purulence; no fluctuance; no malodor; no probe to bone Ortho: Severe pain on palpation noted to posterior left leg. No pain on palpation noted to right leg. - Neurological Exam Neurological Exam: Alert, Awake, Oriented x3 - Psychiatric Exam Psychiatric exam: Normal Affect, Normal Mood Assessment and Plan - Assessment and Plan (Free Text) Assessment: 58M with multiple chronic recurrent venous stasis ulcers Plan: Patient seen and evaluated alongside attending, Dr. Laguna Continue local wound care - QOD saline cleanse, xeroform, DSD, JOSE Wounds appear to be improving at this time Continue abx per ID - Cefepime Pain control per primary Podiatry will follow
[2018-06-15] MEDS ORDERED: Oxycodone/Acetaminophen 5/325 mg Tab PO PRN (16:28)
--- NOTE | 2018-06-15 22:40 | CP.PCM.PN ---
Subjective - Date & Time of Evaluation Date of Evaluation: 06/15/18 Time of Evaluation: 18:00 - Subjective Subjective: seen and examined at bedside for bilateral venous stasis lower extremity ulcerations. No acute events overnight. Patient complains of pain in LLE wounds today; offers no complaints to R leg. Denies N/V/F/D/C/SOB/MABRY/dizziness. Objective - Vital Signs/Intake and Output Vital Signs (last 24 hours): Temp Pulse Resp BP Pulse Ox 98 F 57 L 20 111/71 97 06/15/18 15:00 06/15/18 15:00 06/15/18 15:00 06/15/18 18:43 06/15/18 15:00 Intake and Output: 06/15/18 06/16/18 18:59 06:59 Intake Total 350 Balance 350 - Medications Medications: Current Medications Bacitracin (Bacitracin) 1 gm TOP DAILY [facility] Last Admin: 06/15/18 09:39 Dose: 1 applic Benzocaine/Menthol (Cepacol Sore Throat) 1 matt MT Q6 [facility] Last Admin: 06/15/18 18:23 Dose: 1 matt Docusate Sodium (Colace) 100 mg PO DAILY [facility] Last Admin: 06/15/18 09:36 Dose: 100 mg Furosemide (Lasix) 80 mg PO BID [facility] Last Admin: 06/15/18 18:43 Dose: 80 mg Gabapentin (Neurontin) 300 mg PO TID [facility] Last Admin: 06/15/18 18:24 Dose: 300 mg Cefepime HCl (Maxipime Iv 1 Gm Premix) 1 gm in 50 mls @ 100 mls/hr IVPB Q12H [facility] PRN Reason: Protocol Last Admin: 06/15/18 17:00 Dose: 100 mls/hr Insulin Human Regular (Novolin R) 0 unit SC ACHS [facility] PRN Reason: Protocol Last Admin: 06/15/18 18:24 Dose: Not Given Levothyroxine Sodium (Synthroid) 75 mcg PO DAILY@0630 [facility] Last Admin: 06/15/18 05:54 Dose: 75 mcg Metformin HCl (Glucophage Xr) 1,000 mg PO BID [facility] Last Admin: 06/15/18 18:24 Dose: 1,000 mg Oxycodone HCl (Oxycontin Extended Release Tab) 80 mg PO Q6 [facility] Last Admin: 06/15/18 18:26 Dose: 80 mg Oxycodone/Acetaminophen (Percocet 5/325 Mg Tab) 2 tab PO Q4H PRN PRN Reason: Pain, severe (8-10) Stop: 06/18/18 19:18 Last Admin: 06/15/18 19:36 Dose: 2 tab - Labs Labs: 06/13/18 11:36 06/13/18 11:36 PT 30.8 SECONDS (9.7-12.2) H* 06/15/18 07:33 INR 2.8 06/15/18 07:33 Assessment and Plan (1) Ambulatory dysfunction Status: Acute (2) Chronic skin ulcer of lower leg Status: Acute (3) Diabetes Status: Acute (4) Impaired mobility and ADLs Status: Acute (5) Nonhealing ulcer of left lower extremity Status: Acute (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
[2018-06-16] MEDS: oxyCODONE 80 mg ER Tab (oxyCONTIN) PO SCH ×4 (00:31→17:31)
[2018-06-16] MEDS: Benzocaine/Menthol (Cepacol) Lozenge MT SCH ×4 (00:35→17:30)
[2018-06-16] MEDS: Cefepime IV 1 gm in Dextrose 1 GM/50 ML BAG IVPB SCH ×2 (03:14→16:40)
[2018-06-16] MEDS: Oxycodone/Acetaminophen 5/325 mg Tab PO PRN ×5 (03:53→23:24)
[2018-06-16] MEDS: Levothyroxine 75 MCG TAB PO SCH (05:51)
[2018-06-16 07:33] LABS: INR 2.9; PROTHROMBIN TIME 31.7 SECONDS (9.7-12.2)
[2018-06-16] MEDS: Bacitracin Ointment 30 GM TUBE TOP SCH (10:45)
[2018-06-16] MEDS: (Novolin R) Insulin Human Regular 100 units/ml vial SC SCH ×4 (12:04→22:15)
[2018-06-17] MEDS: oxyCODONE 80 mg ER Tab (oxyCONTIN) PO SCH ×4 (00:41→18:01)
[2018-06-17] MEDS: Benzocaine/Menthol (Cepacol) Lozenge MT SCH ×4 (00:42→18:01)
[2018-06-17] MEDS: Oxycodone/Acetaminophen 5/325 mg Tab PO PRN ×5 (03:54→23:40)
[2018-06-17] MEDS: Cefepime IV 1 gm in Dextrose 1 GM/50 ML BAG IVPB SCH ×2 (03:54→16:10)
[2018-06-17] MEDS: Levothyroxine 75 MCG TAB PO SCH (05:57)
[2018-06-17 06:36] LABS: INR 2.7
[2018-06-17 06:44] LABS: PROTHROMBIN TIME 29.5 SECONDS (9.7-12.2)
[2018-06-17] MEDS: (Novolin R) Insulin Human Regular 100 units/ml vial SC SCH ×4 (08:12→21:55)
--- NOTE | 2018-06-17 08:59 | CP.PCM.PN ---
Subjective - Date & Time of Evaluation Date of Evaluation: 06/17/18 Time of Evaluation: 18:00 - Subjective Subjective: Patient seen and evaluated afebrile, left leg ulcer on antibiotics pending [facility] placement Objective - Vital Signs/Intake and Output Vital Signs (last 24 hours): Temp Pulse Resp BP Pulse Ox 98.1 F 71 18 136/70 97 06/17/18 08:56 06/17/18 08:56 06/17/18 08:56 06/17/18 08:56 06/17/18 08:56 Intake and Output: 06/17/18 06/17/18 06:59 18:59 Intake Total 510 Output Total 1400 Balance -890 - Medications Medications: Current Medications Bacitracin (Bacitracin) 1 gm TOP DAILY [facility] Last Admin: 06/16/18 10:45 Dose: 1 applic Benzocaine/Menthol (Cepacol Sore Throat) 1 matt MT Q6 [facility] Last Admin: 06/17/18 05:58 Dose: 1 matt Docusate Sodium (Colace) 100 mg PO DAILY [facility] Last Admin: 06/16/18 10:40 Dose: Not Given Furosemide (Lasix) 80 mg PO BID [facility] Last Admin: 06/16/18 17:30 Dose: 80 mg Gabapentin (Neurontin) 300 mg PO TID [facility] Last Admin: 06/16/18 17:30 Dose: 300 mg Cefepime HCl (Maxipime Iv 1 Gm Premix) 1 gm in 50 mls @ 100 mls/hr IVPB Q12H [facility] PRN Reason: Protocol Last Admin: 06/17/18 03:54 Dose: 100 mls/hr Insulin Human Regular (Novolin R) 0 unit SC ACHS [facility] PRN Reason: Protocol Last Admin: 06/17/18 08:12 Dose: Not Given Levothyroxine Sodium (Synthroid) 75 mcg PO DAILY@0630 [facility] Last Admin: 06/17/18 05:57 Dose: 75 mcg Metformin HCl (Glucophage Xr) 1,000 mg PO BID [facility] Last Admin: 06/16/18 17:30 Dose: 1,000 mg Oxycodone HCl (Oxycontin Extended Release Tab) 80 mg PO Q6 [facility] Last Admin: 06/17/18 05:57 Dose: 80 mg Oxycodone/Acetaminophen (Percocet 5/325 Mg Tab) 2 tab PO Q4H PRN PRN Reason: Pain, severe (8-10) Stop: 06/18/18 19:18 Last Admin: 06/17/18 08:00 Dose: 2 tab - Labs Labs: 06/13/18 11:36 06/13/18 11:36 PT 29.5 SECONDS (9.7-12.2) H* 06/17/18 06:20 INR 2.7 06/17/18 06:20 - Constitutional Appears: No Acute Distress - Head Exam Head Exam: ATRAUMATIC, NORMAL INSPECTION, NORMOCEPHALIC - Eye Exam Eye Exam: EOMI, Normal appearance, PERRL Pupil Exam: NORMAL ACCOMODATION, PERRL - ENT Exam ENT Exam: Mucous Membranes Moist, Normal Exam - Respiratory Exam Respiratory Exam: Clear to Ausculation Bilateral, NORMAL BREATHING PATTERN - Cardiovascular Exam Cardiovascular Exam: REGULAR RHYTHM, +S1, +S2. absent: Murmur - GI/Abdominal Exam GI & Abdominal Exam: Soft, Normal Bowel Sounds. 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
--- NOTE | 2018-06-17 08:59 | CP.PCM.PN ---
Subjective - Date & Time of Evaluation Date of Evaluation: 06/16/18 Time of Evaluation: 18:00 - Subjective Subjective: Patient seen and evaluated Objective - Vital Signs/Intake and Output Vital Signs (last 24 hours): Temp Pulse Resp BP Pulse Ox 98.1 F 71 18 136/70 97 06/17/18 08:56 06/17/18 08:56 06/17/18 08:56 06/17/18 08:56 06/17/18 08:56 Intake and Output: 06/17/18 06/17/18 06:59 18:59 Intake Total 510 Output Total 1400 Balance -890 - Medications Medications: Current Medications Bacitracin (Bacitracin) 1 gm TOP DAILY [facility] Last Admin: 06/16/18 10:45 Dose: 1 applic Benzocaine/Menthol (Cepacol Sore Throat) 1 matt MT Q6 [facility] Last Admin: 06/17/18 05:58 Dose: 1 matt Docusate Sodium (Colace) 100 mg PO DAILY [facility] Last Admin: 06/16/18 10:40 Dose: Not Given Furosemide (Lasix) 80 mg PO BID [facility] Last Admin: 06/16/18 17:30 Dose: 80 mg Gabapentin (Neurontin) 300 mg PO TID [facility] Last Admin: 06/16/18 17:30 Dose: 300 mg Cefepime HCl (Maxipime Iv 1 Gm Premix) 1 gm in 50 mls @ 100 mls/hr IVPB Q12H [facility] PRN Reason: Protocol Last Admin: 06/17/18 03:54 Dose: 100 mls/hr Insulin Human Regular (Novolin R) 0 unit SC ACHS [facility] PRN Reason: Protocol Last Admin: 06/17/18 08:12 Dose: Not Given Levothyroxine Sodium (Synthroid) 75 mcg PO DAILY@0630 [facility] Last Admin: 06/17/18 05:57 Dose: 75 mcg Metformin HCl (Glucophage Xr) 1,000 mg PO BID [facility] Last Admin: 06/16/18 17:30 Dose: 1,000 mg Oxycodone HCl (Oxycontin Extended Release Tab) 80 mg PO Q6 [facility] Last Admin: 06/17/18 05:57 Dose: 80 mg Oxycodone/Acetaminophen (Percocet 5/325 Mg Tab) 2 tab PO Q4H PRN PRN Reason: Pain, severe (8-10) Stop: 06/18/18 19:18 Last Admin: 06/17/18 08:00 Dose: 2 tab - Labs Labs: 06/13/18 11:36 06/13/18 11:36 PT 29.5 SECONDS (9.7-12.2) H* 06/17/18 06:20 INR 2.7 06/17/18 06:20 Assessment and Plan (1) Ambulatory dysfunction Status: Acute (2) Chronic skin ulcer of lower leg Status: Acute (3) Diabetes Status: Acute (4) Impaired mobility and ADLs Status: Acute (5) Nonhealing ulcer of left lower extremity Status: Acute (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
--- NOTE | 2018-06-17 09:47 | CP.PCM.PN ---
Subjective - Date & Time of Evaluation Date of Evaluation: 06/17/18 Time of Evaluation: 09:47 - Subjective Subjective: Podiatry - Dr. Laguna 58M seen and examined at bedside for bilateral venous stasis lower extremity ulcerations. No acute events overnight. Endorses pain in LLE, no complaints to RLE. Dressings to bilateral LE remain clean/dry/intact. Denies N/V/F/D/C/SOB/MABRY/ dizziness. Objective - Vital Signs/Intake and Output Vital Signs (last 24 hours): Temp Pulse Resp BP Pulse Ox 98.1 F 71 18 136/70 97 06/17/18 08:56 06/17/18 08:56 06/17/18 08:56 06/17/18 08:56 06/17/18 08:56 Intake and Output: 06/17/18 06/17/18 06:59 18:59 Intake Total 510 Output Total 1400 Balance -890 - Medications Medications: Current Medications Bacitracin (Bacitracin) 1 gm TOP DAILY [facility] Last Admin: 06/16/18 10:45 Dose: 1 applic Benzocaine/Menthol (Cepacol Sore Throat) 1 matt MT Q6 [facility] Last Admin: 06/17/18 05:58 Dose: 1 matt Docusate Sodium (Colace) 100 mg PO DAILY [facility] Last Admin: 06/16/18 10:40 Dose: Not Given Furosemide (Lasix) 80 mg PO BID [facility] Last Admin: 06/16/18 17:30 Dose: 80 mg Gabapentin (Neurontin) 300 mg PO TID [facility] Last Admin: 06/16/18 17:30 Dose: 300 mg Cefepime HCl (Maxipime Iv 1 Gm Premix) 1 gm in 50 mls @ 100 mls/hr IVPB Q12H [facility] PRN Reason: Protocol Last Admin: 06/17/18 03:54 Dose: 100 mls/hr Insulin Human Regular (Novolin R) 0 unit SC ACHS [facility] PRN Reason: Protocol Last Admin: 06/17/18 08:12 Dose: Not Given Levothyroxine Sodium (Synthroid) 75 mcg PO DAILY@0630 [facility] Last Admin: 06/17/18 05:57 Dose: 75 mcg Metformin HCl (Glucophage Xr) 1,000 mg PO BID [facility] Last Admin: 06/16/18 17:30 Dose: 1,000 mg Oxycodone HCl (Oxycontin Extended Release Tab) 80 mg PO Q6 [facility] Last Admin: 06/17/18 05:57 Dose: 80 mg Oxycodone/Acetaminophen (Percocet 5/325 Mg Tab) 2 tab PO Q4H PRN PRN Reason: Pain, severe (8-10) Stop: 06/18/18 19:18 Last Admin: 06/17/18 08:00 Dose: 2 tab - Labs Labs: 06/13/18 11:36 06/13/18 11:36 PT 29.5 SECONDS (9.7-12.2) H* 06/17/18 06:20 INR 2.7 06/17/18 06:20 - Constitutional Appears: Well, Non-toxic, No Acute Distress - Extremities Exam Additional comments: Lower extremity focused exam: Vasc: DP/PT pulses nonpalpable secondary to edema. +1 pitting edema noted to b/ l. CFT <3 seconds to digits. Temperature gradient warm to warm b/l. Neuro: Gross sensation diminished b/l. Derm: Multiple ulcerations of varying stages, L>R LLE = full thickness ulceration noted to calf with moderate sanguinous drainage present, epithelializing; periwound erythema present; no purulence; no fluctuance; no undermining. Scattered full thickness ulcerations noted to anterior leg noted to be epithelializing; minimal periwound erythema present RLE = scattered ulcerations noted to anterolateral aspect of right leg appears to be epithelializing; minimal periwound erythema present; no serosanguinous drainage present; no purulence; no fluctuance; no malodor; no probe to bone Ortho: Severe pain on palpation noted to posterior left leg. No pain on palpation noted to right leg. - Neurological Exam Neurological Exam: Alert, Awake, Oriented x3 - Psychiatric Exam Psychiatric exam: Normal Affect, Normal Mood Assessment and Plan - Assessment and Plan (Free Text) Assessment: 58M with multiple chronic recurrent venous stasis ulcers Plan: Patient seen and evaluated Discussed with attending, Dr. Laguna Continue local wound care - QOD saline cleanse, xeroform, DSD, JOSE Wounds appear to be improving at this time Continue abx per ID - Cefepime Pain control per primary team Podiatry will follow Dispo planning: awaiting LTC placement at [facility]
[2018-06-17] MEDS: Bacitracin Ointment 30 GM TUBE TOP SCH (10:01)
[2018-06-18] MEDS: oxyCODONE 80 mg ER Tab (oxyCONTIN) PO SCH ×5 (00:30→23:58)
[2018-06-18] MEDS: Benzocaine/Menthol (Cepacol) Lozenge MT SCH ×4 (00:44→17:05)
[2018-06-18] MEDS: Oxycodone/Acetaminophen 5/325 mg Tab PO PRN ×5 (03:55→23:33)
[2018-06-18] MEDS: Cefepime IV 1 gm in Dextrose 1 GM/50 ML BAG IVPB SCH ×2 (03:59→17:00)
[2018-06-18] MEDS: Levothyroxine 75 MCG TAB PO SCH (05:51)
[2018-06-18 07:16] LABS: BASO % 0.7 % (0.0-2.0); EOS # 0.3 K/uL (0.0-0.7); EOS % 4.6 % (0.0-4.0); HEMOGLOBIN 11.7 g/dL (12.0-18.0); LYMPH # 1.3 K/uL (1.0-4.3); LYMPH % 20.6 % (20.0-40.0); MEAN CORPUSCULAR HEMOGLOBIN 27.5 pg (27.0-31.0); MEAN CORPUSCULAR HGB CONC 33.1 g/dL (33.0-37.0); MONO # 0.5 K/uL (0.0-0.8); MONO % 8.5 % (0.0-10.0); NEUT # 4.2 K/uL (1.8-7.0); NEUT % 65.6 % (50.0-75.0); NRBC % 0.1 % (0.0-2.0); RBC 4.27 Mil/uL (4.40-5.90); RED CELL DISTRIBUTION WIDTH 16.4 % (11.5-14.5); WHITE BLOOD COUNT 6.3 K/uL (4.8-10.8)
[2018-06-18 07:19] LABS: PROTHROMBIN TIME 22.4 SECONDS (9.7-12.2)
[2018-06-18 07:33] LABS: ALB/GLOB RATIO 1.2 (1.0-2.1); ALBUMIN 4.2 g/dL (3.5-5.0); ALT/SGPT 19 U/L (21-72); AST/SGOT 19 U/L (17-59); BLOOD UREA NITROGEN 37 mg/dL (9-20); CALCIUM 9.3 mg/dl (8.6-10.4); GFR AFRICAN-AMERICAN > 60; GFR NON-AFRICAN AMERICAN > 60
[2018-06-18] MEDS: (Novolin R) Insulin Human Regular 100 units/ml vial SC SCH ×4 (08:10→21:56)
[2018-06-18] MEDS: Bacitracin Ointment 30 GM TUBE TOP SCH (10:37)
--- NOTE | 2018-06-18 13:40 | CP.PCM.PN ---
Subjective - Date & Time of Evaluation Date of Evaluation: 06/18/18 Time of Evaluation: 08:00 - Subjective Subjective: Patient seen and evaluated afebrile, left leg ulcer on antibiotics Objective - Vital Signs/Intake and Output Vital Signs (last 24 hours): Temp Pulse Resp BP Pulse Ox 98.2 F 71 20 127/77 99 06/18/18 08:26 06/18/18 08:26 06/18/18 08:26 06/18/18 09:49 06/18/18 08:26 Intake and Output: 06/18/18 06/18/18 06:59 18:59 Output Total 1200 Balance -1200 - Medications Medications: Current Medications Bacitracin (Bacitracin) 1 gm TOP DAILY [facility] Last Admin: 06/18/18 10:37 Dose: Not Given Benzocaine/Menthol (Cepacol Sore Throat) 1 matt MT Q6 [facility] Last Admin: 06/18/18 12:06 Dose: 1 matt Docusate Sodium (Colace) 100 mg PO DAILY [facility] Last Admin: 06/18/18 09:50 Dose: Not Given Furosemide (Lasix) 80 mg PO BID [facility] Last Admin: 06/18/18 09:49 Dose: 80 mg Gabapentin (Neurontin) 300 mg PO TID [facility] Last Admin: 06/18/18 09:48 Dose: 300 mg Cefepime HCl (Maxipime Iv 1 Gm Premix) 1 gm in 50 mls @ 100 mls/hr IVPB Q12H [facility] PRN Reason: Protocol Last Admin: 06/18/18 03:59 Dose: Not Given Insulin Human Regular (Novolin R) 0 unit SC ACHS [facility] PRN Reason: Protocol Last Admin: 06/18/18 12:33 Dose: Not Given Levothyroxine Sodium (Synthroid) 75 mcg PO DAILY@0630 [facility] Last Admin: 06/18/18 05:51 Dose: 75 mcg Metformin HCl (Glucophage Xr) 1,000 mg PO BID [facility] Last Admin: 06/18/18 09:49 Dose: 1,000 mg Oxycodone HCl (Oxycontin Extended Release Tab) 80 mg PO Q6 [facility] Last Admin: 06/18/18 12:04 Dose: 80 mg Oxycodone/Acetaminophen (Percocet 5/325 Mg Tab) 2 tab PO Q4H PRN PRN Reason: Pain, severe (8-10) Stop: 06/18/18 19:18 Last Admin: 06/18/18 13:08 Dose: 2 tab - Labs Labs: 06/18/18 07:04 06/18/18 07:04 PT 22.4 SECONDS (9.7-12.2) H D 06/18/18 07:04 INR 2.0 D 06/18/18 07:04 Assessment and Plan (1) Ambulatory dysfunction Status: Acute (2) Chronic skin ulcer of lower leg Status: Acute (3) Diabetes Status: Acute (4) Impaired mobility and ADLs Status: Acute (5) Nonhealing ulcer of left lower extremity Status: Acute (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
[2018-06-19] MEDS: Benzocaine/Menthol (Cepacol) Lozenge MT SCH ×4 (00:02→17:20)
[2018-06-19] MEDS: Cefepime IV 1 gm in Dextrose 1 GM/50 ML BAG IVPB SCH ×2 (03:26→15:34)
[2018-06-19] MEDS: Oxycodone/Acetaminophen 5/325 mg Tab PO PRN ×5 (03:30→19:49)
[2018-06-19] MEDS: Levothyroxine 75 MCG TAB PO SCH (05:55)
[2018-06-19] MEDS: oxyCODONE 80 mg ER Tab (oxyCONTIN) PO SCH ×3 (05:55→17:19)
[2018-06-19] MEDS: (Novolin R) Insulin Human Regular 100 units/ml vial SC SCH ×4 (07:26→21:37)
[2018-06-19] MEDS: Bacitracin Ointment 30 GM TUBE TOP SCH (09:25)
--- NOTE | 2018-06-19 10:31 | CP.PCM.PN ---
Subjective - Date & Time of Evaluation Date of Evaluation: 06/19/18 Time of Evaluation: 10:31 - Subjective Subjective: Podiatry - Dr. Laguna 58M seen and examined at bedside for bilateral venous stasis lower extremity ulcerations. Patient hemodynamically stable and NAD. No acute events overnight. Patient reports pain in LLE is decreasing, no complaints of RLE. Dressings to bilateral LE remain clean/dry/intact. No new complaints today. Denies N/V/F/D/C/ SOB/MABRY/dizziness. Objective - Vital Signs/Intake and Output Vital Signs (last 24 hours): Temp Pulse Resp BP Pulse Ox 98.2 F 66 18 118/70 98 06/19/18 08:50 06/19/18 08:50 06/19/18 08:50 06/19/18 09:14 06/19/18 08:50 Intake and Output: 06/19/18 06/19/18 06:59 18:59 Intake Total 720 Output Total 800 Balance -80 - Medications Medications: Current Medications Bacitracin (Bacitracin) 1 gm TOP DAILY [facility] Last Admin: 06/19/18 09:25 Dose: Not Given Benzocaine/Menthol (Cepacol Sore Throat) 1 matt MT Q6 [facility] Last Admin: 06/19/18 05:56 Dose: 1 matt Docusate Sodium (Colace) 100 mg PO DAILY [facility] Last Admin: 06/19/18 09:13 Dose: 100 mg Furosemide (Lasix) 80 mg PO BID [facility] Last Admin: 06/19/18 09:14 Dose: 80 mg Gabapentin (Neurontin) 300 mg PO TID [facility] Last Admin: 06/19/18 09:13 Dose: 300 mg Cefepime HCl (Maxipime Iv 1 Gm Premix) 1 gm in 50 mls @ 100 mls/hr IVPB Q12H [facility] PRN Reason: Protocol Last Admin: 06/19/18 03:26 Dose: 100 mls/hr Insulin Human Regular (Novolin R) 0 unit SC ACHS [facility] PRN Reason: Protocol Last Admin: 06/19/18 07:26 Dose: Not Given Levothyroxine Sodium (Synthroid) 75 mcg PO DAILY@0630 [facility] Last Admin: 06/19/18 05:55 Dose: 75 mcg Metformin HCl (Glucophage Xr) 1,000 mg PO BID [facility] Last Admin: 06/19/18 09:15 Dose: 1,000 mg Oxycodone HCl (Oxycontin Extended Release Tab) 80 mg PO Q6 [facility] Last Admin: 06/19/18 05:55 Dose: 80 mg Oxycodone/Acetaminophen (Percocet 5/325 Mg Tab) 2 tab PO Q4H PRN PRN Reason: Pain, moderate (4-7) Stop: 06/21/18 22:06 Last Admin: 06/19/18 07:36 Dose: 2 tab - Labs Labs: 06/18/18 07:04 06/18/18 07:04 PT 22.4 SECONDS (9.7-12.2) H D 06/18/18 07:04 INR 2.0 D 06/18/18 07:04 - Constitutional Appears: Well, Non-toxic, No Acute Distress - Extremities Exam Additional comments: Lower extremity focused exam: Vasc: DP/PT pulses nonpalpable secondary to edema. +1 pitting edema noted to b/ l. CFT <3 seconds to digits. Temperature gradient warm to warm b/l. Neuro: Gross sensation diminished b/l. Derm: Multiple ulcerations of varying stages, L>R LLE = full thickness ulceration noted to calf with moderate sanguinous drainage present, epithelializing; periwound erythema present; no purulence; no fluctuance; no undermining. Scattered full thickness ulcerations noted to anterior leg noted to be epithelializing; minimal periwound erythema present RLE = scattered ulcerations noted to anterolateral aspect of right leg appear to be epithelializing; minimal periwound erythema present; no serosanguinous drainage present; no purulence; no fluctuance; no malodor; no probe to bone Ortho: Moderate pain on palpation noted to posterior left leg. No pain on palpation noted to right leg. - Neurological Exam Neurological Exam: Alert, Awake, Oriented x3 - Psychiatric Exam Psychiatric exam: Normal Affect, Normal Mood Assessment and Plan - Assessment and Plan (Free Text) Assessment: 58M with multiple chronic recurrent venous stasis ulcers Plan: Patient seen and evaluated alongside attending, Dr. Laguna Continue local wound care - QOD saline cleanse, xeroform, DSD, JOSE Wounds improving, will continue to monitor Continue abx per ID - Cefepime Pain control per primary team Podiatry will follow Dispo planning: awaiting LTC placement at [facility]
[2018-06-19 11:57] LABS: INR 2.3
[2018-06-20] MEDS: Benzocaine/Menthol (Cepacol) Lozenge MT SCH ×4 (00:18→17:11)
[2018-06-20] MEDS: Oxycodone/Acetaminophen 5/325 mg Tab PO PRN ×5 (00:18→17:10)
[2018-06-20] MEDS: oxyCODONE 80 mg ER Tab (oxyCONTIN) PO SCH ×4 (00:19→18:13)
[2018-06-20] MEDS: Cefepime IV 1 gm in Dextrose 1 GM/50 ML BAG IVPB SCH ×2 (04:32→17:12)
[2018-06-20] MEDS: Levothyroxine 75 MCG TAB PO SCH (05:33)
[2018-06-20] MEDS: (Novolin R) Insulin Human Regular 100 units/ml vial SC SCH ×4 (07:44→21:41)
[2018-06-20 09:46] LABS: INR 2.5; PROTHROMBIN TIME 27.6 SECONDS (9.7-12.2)
[2018-06-20] MEDS: Bacitracin Ointment 30 GM TUBE TOP SCH (09:51)
--- NOTE | 2018-06-20 10:29 | CP.PCM.PN ---
Subjective - Date & Time of Evaluation Date of Evaluation: 06/19/18 Time of Evaluation: 20:40 - Subjective Subjective: Pt seen and examined, afberile, left leg ulcer improving, waiting for rehab placement Objective - Vital Signs/Intake and Output Vital Signs (last 24 hours): Temp Pulse Resp BP Pulse Ox 98.3 F 70 20 137/76 97 06/20/18 07:00 06/20/18 07:00 06/20/18 07:00 06/20/18 09:49 06/20/18 07:00 Intake and Output: 06/20/18 06/20/18 06:59 18:59 Output Total 1800 Balance -1800 - Medications Medications: Current Medications Bacitracin (Bacitracin) 1 gm TOP DAILY [facility] Last Admin: 06/20/18 09:51 Dose: Not Given Benzocaine/Menthol (Cepacol Sore Throat) 1 matt MT Q6 [facility] Last Admin: 06/20/18 05:32 Dose: 1 matt Docusate Sodium (Colace) 100 mg PO DAILY [facility] Last Admin: 06/20/18 09:49 Dose: 100 mg Furosemide (Lasix) 80 mg PO BID [facility] Last Admin: 06/20/18 09:49 Dose: 80 mg Gabapentin (Neurontin) 300 mg PO TID [facility] Last Admin: 06/20/18 09:49 Dose: 300 mg Cefepime HCl (Maxipime Iv 1 Gm Premix) 1 gm in 50 mls @ 100 mls/hr IVPB Q12H [facility] PRN Reason: Protocol Last Admin: 06/20/18 04:32 Dose: 100 mls/hr Insulin Human Regular (Novolin R) 0 unit SC ACHS [facility] PRN Reason: Protocol Last Admin: 06/20/18 07:44 Dose: Not Given Levothyroxine Sodium (Synthroid) 75 mcg PO DAILY@0630 [facility] Last Admin: 06/20/18 05:33 Dose: 75 mcg Metformin HCl (Glucophage Xr) 1,000 mg PO BID [facility] Last Admin: 06/20/18 09:49 Dose: 1,000 mg Oxycodone HCl (Oxycontin Extended Release Tab) 80 mg PO Q6 [facility] Last Admin: 06/20/18 05:33 Dose: 80 mg Oxycodone/Acetaminophen (Percocet 5/325 Mg Tab) 2 tab PO Q4H PRN PRN Reason: Pain, moderate (4-7) Stop: 06/21/18 22:06 Last Admin: 06/20/18 08:31 Dose: 2 tab - Labs Labs: 06/18/18 07:04 06/18/18 07:04 PT 27.6 SECONDS (9.7-12.2) H 06/20/18 09:30 INR 2.5 06/20/18 09:30 - Constitutional Appears: No Acute Distress - Eye Exam Eye Exam: EOMI, Normal appearance, PERRL Pupil Exam: NORMAL ACCOMODATION, PERRL - ENT Exam ENT Exam: Mucous Membranes Moist, Normal Exam - Respiratory Exam Respiratory Exam: Clear to Ausculation Bilateral, NORMAL BREATHING PATTERN - Cardiovascular Exam Cardiovascular Exam: REGULAR RHYTHM, +S1, +S2. absent: Murmur - GI/Abdominal Exam GI & Abdominal Exam: Soft, Normal Bowel Sounds. 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
--- NOTE | 2018-06-20 10:30 | CP.PCM.PN ---
Subjective - Date & Time of Evaluation Date of Evaluation: 06/20/18 Time of Evaluation: 17:00 - Subjective Subjective: 58M seen and examined at bedside for bilateral venous stasis lower extremity ulcerations. Patient hemodynamically stable and NAD. No acute events overnight. Patient reports pain in LLE is decreasing, no complaints of RLE. Dressings to bilateral LE remain clean/dry/intact. No new complaints today. Denies N/V/F/D/C/ SOB/MABRY/dizziness Objective - Vital Signs/Intake and Output Vital Signs (last 24 hours): Temp Pulse Resp BP Pulse Ox 98.3 F 70 20 137/76 97 06/20/18 07:00 06/20/18 07:00 06/20/18 07:00 06/20/18 09:49 06/20/18 07:00 Intake and Output: 06/20/18 06/20/18 06:59 18:59 Output Total 1800 Balance -1800 - Medications Medications: Current Medications Bacitracin (Bacitracin) 1 gm TOP DAILY [facility] Last Admin: 06/20/18 09:51 Dose: Not Given Benzocaine/Menthol (Cepacol Sore Throat) 1 matt MT Q6 [facility] Last Admin: 06/20/18 05:32 Dose: 1 matt Docusate Sodium (Colace) 100 mg PO DAILY [facility] Last Admin: 06/20/18 09:49 Dose: 100 mg Furosemide (Lasix) 80 mg PO BID [facility] Last Admin: 06/20/18 09:49 Dose: 80 mg Gabapentin (Neurontin) 300 mg PO TID [facility] Last Admin: 06/20/18 09:49 Dose: 300 mg Cefepime HCl (Maxipime Iv 1 Gm Premix) 1 gm in 50 mls @ 100 mls/hr IVPB Q12H [facility] PRN Reason: Protocol Last Admin: 06/20/18 04:32 Dose: 100 mls/hr Insulin Human Regular (Novolin R) 0 unit SC ACHS [facility] PRN Reason: Protocol Last Admin: 06/20/18 07:44 Dose: Not Given Levothyroxine Sodium (Synthroid) 75 mcg PO DAILY@0630 [facility] Last Admin: 06/20/18 05:33 Dose: 75 mcg Metformin HCl (Glucophage Xr) 1,000 mg PO BID [facility] Last Admin: 06/20/18 09:49 Dose: 1,000 mg Oxycodone HCl (Oxycontin Extended Release Tab) 80 mg PO Q6 [facility] Last Admin: 06/20/18 05:33 Dose: 80 mg Oxycodone/Acetaminophen (Percocet 5/325 Mg Tab) 2 tab PO Q4H PRN PRN Reason: Pain, moderate (4-7) Stop: 06/21/18 22:06 Last Admin: 06/20/18 08:31 Dose: 2 tab - Labs Labs: 06/18/18 07:04 06/18/18 07:04 PT 27.6 SECONDS (9.7-12.2) H 06/20/18 09:30 INR 2.5 06/20/18 09:30 Assessment and Plan (1) Ambulatory dysfunction Status: Acute (2) Chronic skin ulcer of lower leg Status: Acute (3) Diabetes Status: Acute (4) Impaired mobility and ADLs Status: Acute (5) Nonhealing ulcer of left lower extremity Status: Acute (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
[2018-06-20] MEDS ORDERED: Cefepime IV 1 gm in Dextrose 1 GM/50 ML BAG IVPB SCH (22:00)
[2018-06-21] MEDS: oxyCODONE 80 mg ER Tab (oxyCONTIN) PO SCH ×5 (00:07→23:55)
[2018-06-21] MEDS: Benzocaine/Menthol (Cepacol) Lozenge MT SCH ×5 (00:09→23:55)
[2018-06-21] MEDS: Oxycodone/Acetaminophen 5/325 mg Tab PO PRN ×5 (04:11→21:38)
[2018-06-21] MEDS: Cefepime IV 1 gm in Dextrose 1 GM/50 ML BAG IVPB SCH ×2 (04:12→16:48)
[2018-06-21] MEDS: Levothyroxine 75 MCG TAB PO SCH (05:41)
[2018-06-21 07:02] LABS: INR 2.8
[2018-06-21 07:09] LABS: PROTHROMBIN TIME 30.5 SECONDS (9.7-12.2)
[2018-06-21] MEDS: (Novolin R) Insulin Human Regular 100 units/ml vial SC SCH ×4 (07:59→21:44)
--- NOTE | 2018-06-21 10:15 | CP.PCM.PN ---
Subjective - Date & Time of Evaluation Date of Evaluation: 06/21/18 Time of Evaluation: 10:15 - Subjective Subjective: Podiatry - Dr. Laguna 58M seen and examined at bedside for bilateral venous stasis lower extremity ulcerations. Patient hemodynamically stable and NAD. No acute events overnight. Patient believes LLE wounds are improving as he feels less pain in his left leg. No complaints to RLE. Dressings remain clean/dry/intact. Denies N/V/F/D/C/ SOB/MABRY/CP. Objective - Vital Signs/Intake and Output Vital Signs (last 24 hours): Temp Pulse Resp BP Pulse Ox 97.9 F 94 H 18 120/78 94 L 06/21/18 07:30 06/21/18 08:33 06/21/18 07:30 06/21/18 08:33 06/21/18 07:30 Intake and Output: 06/21/18 06/21/18 06:59 18:59 Output Total 2550 Balance -2550 - Medications Medications: Current Medications Bacitracin (Bacitracin) 1 gm TOP DAILY [facility] Benzocaine/Menthol (Cepacol Sore Throat) 1 matt MT Q6 [facility] Last Admin: 06/21/18 05:42 Dose: 1 matt Docusate Sodium (Colace) 100 mg PO DAILY [facility] Furosemide (Lasix) 80 mg PO BID [facility] Gabapentin (Neurontin) 300 mg PO TID [facility] Cefepime HCl (Maxipime Iv 1 Gm Premix) 1 gm in 50 mls @ 100 mls/hr IVPB Q12H [facility] PRN Reason: Protocol Last Admin: 06/21/18 04:12 Dose: 100 mls/hr Insulin Human Regular (Novolin R) 0 unit SC ACHS [facility] PRN Reason: Protocol Last Admin: 06/21/18 07:59 Dose: Not Given Levothyroxine Sodium (Synthroid) 75 mcg PO DAILY@0630 [facility] Last Admin: 06/21/18 05:41 Dose: 75 mcg Metformin HCl (Glucophage Xr) 1,000 mg PO BID [facility] Oxycodone HCl (Oxycontin Extended Release Tab) 80 mg PO Q6 [facility] Last Admin: 06/21/18 05:41 Dose: 80 mg Oxycodone/Acetaminophen (Percocet 5/325 Mg Tab) 2 tab PO Q4H PRN PRN Reason: Pain, moderate (4-7) Stop: 06/23/18 21:35 Last Admin: 06/21/18 08:35 Dose: 2 tab - Labs Labs: 06/18/18 07:04 06/18/18 07:04 PT 30.5 SECONDS (9.7-12.2) H* 06/21/18 06:32 INR 2.8 06/21/18 06:32 - Constitutional Appears: Well, Non-toxic, No Acute Distress - Extremities Exam Additional comments: Lower extremity focused exam: Vasc: DP/PT pulses nonpalpable secondary to edema. +1 pitting edema noted to b/ l. CFT <3 seconds to digits. Temperature gradient warm to warm b/l. Neuro: Gross sensation diminished b/l. Derm: Multiple ulcerations of varying stages, L>R LLE = full thickness ulceration noted to calf with moderate sanguinous drainage present, epithelializing; periwound erythema present; no purulence; no fluctuance; no undermining. Scattered full thickness ulcerations noted to anterior leg noted to be epithelializing; minimal periwound erythema present RLE = scattered ulcerations noted to anterolateral aspect of right leg appear to be epithelializing; minimal periwound erythema present; no serosanguinous drainage present; no purulence; no fluctuance; no malodor; no probe to bone Ortho: Moderate pain on palpation noted to posterior left leg. No pain on palpation noted to right leg. - Neurological Exam Neurological Exam: Alert, Awake, Oriented x3 - Psychiatric Exam Psychiatric exam: Normal Affect, Normal Mood Assessment and Plan - Assessment and Plan (Free Text) Assessment: 58M with multiple chronic recurrent venous stasis ulcers Plan: Patient seen and evaluated Discussed withi attending, Dr. Laguna Continue local wound care - QOD saline cleanse, xeroform, DSD, JOSE Wounds improving, will continue to monitor Continue abx per ID - Cefepime Pain control per primary team Podiatry will follow Dispo planning: awaiting LTC placement at [facility]
[2018-06-21] MEDS: Bacitracin Ointment 30 GM TUBE TOP SCH (10:48)
[2018-06-22] MEDS: Oxycodone/Acetaminophen 5/325 mg Tab PO PRN ×6 (01:44→21:57)
[2018-06-22] MEDS: Cefepime IV 1 gm in Dextrose 1 GM/50 ML BAG IVPB SCH ×2 (03:40→15:04)
[2018-06-22] MEDS: Levothyroxine 75 MCG TAB PO SCH (05:55)
[2018-06-22] MEDS: Benzocaine/Menthol (Cepacol) Lozenge MT SCH ×3 (05:55→19:00)
[2018-06-22] MEDS: oxyCODONE 80 mg ER Tab (oxyCONTIN) PO SCH ×3 (05:55→17:35)
[2018-06-22] MEDS: (Novolin R) Insulin Human Regular 100 units/ml vial SC SCH ×4 (07:57→21:20)
[2018-06-22 09:02] LABS: INR 2.9
[2018-06-22 09:09] LABS: PROTHROMBIN TIME 31.9 SECONDS (9.7-12.2)
[2018-06-22] MEDS: Bacitracin Ointment 30 GM TUBE TOP SCH (10:18)
--- NOTE | 2018-06-22 11:04 | CP.PCM.PN ---
Subjective - Date & Time of Evaluation Date of Evaluation: 06/21/18 Time of Evaluation: 21:40 - Subjective Subjective: Pt seen and examined at bedside, left leg cellulitis with open ulcers pt is on antibiotocs, wound care, INr is therapeutic now Objective - Vital Signs/Intake and Output Vital Signs (last 24 hours): Temp Pulse Resp BP Pulse Ox 98 F 78 20 127/85 94 L 06/22/18 07:00 06/22/18 10:13 06/22/18 07:00 06/22/18 10:15 06/22/18 07:00 Intake and Output: 06/22/18 06/22/18 06:59 18:59 Intake Total 720 Output Total 1200 Balance -480 - Medications Medications: Current Medications Bacitracin (Bacitracin) 1 gm TOP DAILY [facility] Last Admin: 06/22/18 10:18 Dose: 1 applic Benzocaine/Menthol (Cepacol Sore Throat) 1 matt MT Q6 [facility] Last Admin: 06/22/18 05:55 Dose: 1 matt Docusate Sodium (Colace) 100 mg PO DAILY [facility] Last Admin: 06/22/18 10:15 Dose: 100 mg Furosemide (Lasix) 80 mg PO BID [facility] Last Admin: 06/22/18 10:15 Dose: 80 mg Gabapentin (Neurontin) 300 mg PO TID [facility] Last Admin: 06/22/18 10:21 Dose: 300 mg Cefepime HCl (Maxipime Iv 1 Gm Premix) 1 gm in 50 mls @ 100 mls/hr IVPB Q12H [facility] PRN Reason: Protocol Last Admin: 06/22/18 03:40 Dose: 100 mls/hr Insulin Human Regular (Novolin R) 0 unit SC ACHS [facility] PRN Reason: Protocol Last Admin: 06/22/18 07:57 Dose: Not Given Levothyroxine Sodium (Synthroid) 75 mcg PO DAILY@0630 [facility] Last Admin: 06/22/18 05:55 Dose: 75 mcg Metformin HCl (Glucophage Xr) 1,000 mg PO BID [facility] Last Admin: 06/22/18 10:17 Dose: 1,000 mg Oxycodone HCl (Oxycontin Extended Release Tab) 80 mg PO Q6 [facility] Last Admin: 06/22/18 05:55 Dose: 80 mg Oxycodone/Acetaminophen (Percocet 5/325 Mg Tab) 2 tab PO Q4H PRN PRN Reason: Pain, moderate (4-7) Stop: 06/23/18 21:35 Last Admin: 06/22/18 10:17 Dose: 2 tab - Labs Labs: 06/18/18 07:04 06/18/18 07:04 PT 31.9 SECONDS (9.7-12.2) H* 06/22/18 08:45 INR 2.9 06/22/18 08:45 - Constitutional Appears: No Acute Distress - Head Exam Head Exam: ATRAUMATIC, NORMAL INSPECTION, NORMOCEPHALIC - Eye Exam Eye Exam: EOMI, Normal appearance, PERRL Pupil Exam: NORMAL ACCOMODATION, PERRL - ENT Exam ENT Exam: Mucous Membranes Moist, Normal Exam - Respiratory Exam Respiratory Exam: Clear to Ausculation Bilateral, NORMAL BREATHING PATTERN - Cardiovascular Exam Cardiovascular Exam: REGULAR RHYTHM, +S1, +S2. absent: Murmur - GI/Abdominal Exam GI & Abdominal Exam: Soft, Normal Bowel Sounds. 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
--- NOTE | 2018-06-22 11:06 | CP.PCM.PN ---
Subjective - Date & Time of Evaluation Date of Evaluation: 06/22/18 Time of Evaluation: 20:00 - Subjective Subjective: pt seen and examined at bedside, is waiting for [facility] Objective - Vital Signs/Intake and Output Vital Signs (last 24 hours): Temp Pulse Resp BP Pulse Ox 98 F 78 20 127/85 94 L 06/22/18 07:00 06/22/18 10:13 06/22/18 07:00 06/22/18 10:15 06/22/18 07:00 Intake and Output: 06/22/18 06/22/18 06:59 18:59 Intake Total 720 Output Total 1200 Balance -480 - Medications Medications: Current Medications Bacitracin (Bacitracin) 1 gm TOP DAILY [facility] Last Admin: 06/22/18 10:18 Dose: 1 applic Benzocaine/Menthol (Cepacol Sore Throat) 1 matt MT Q6 [facility] Last Admin: 06/22/18 05:55 Dose: 1 matt Docusate Sodium (Colace) 100 mg PO DAILY [facility] Last Admin: 06/22/18 10:15 Dose: 100 mg Furosemide (Lasix) 80 mg PO BID [facility] Last Admin: 06/22/18 10:15 Dose: 80 mg Gabapentin (Neurontin) 300 mg PO TID [facility] Last Admin: 06/22/18 10:21 Dose: 300 mg Cefepime HCl (Maxipime Iv 1 Gm Premix) 1 gm in 50 mls @ 100 mls/hr IVPB Q12H [facility] PRN Reason: Protocol Last Admin: 06/22/18 03:40 Dose: 100 mls/hr Insulin Human Regular (Novolin R) 0 unit SC ACHS [facility] PRN Reason: Protocol Last Admin: 06/22/18 07:57 Dose: Not Given Levothyroxine Sodium (Synthroid) 75 mcg PO DAILY@0630 [facility] Last Admin: 06/22/18 05:55 Dose: 75 mcg Metformin HCl (Glucophage Xr) 1,000 mg PO BID [facility] Last Admin: 06/22/18 10:17 Dose: 1,000 mg Oxycodone HCl (Oxycontin Extended Release Tab) 80 mg PO Q6 [facility] Last Admin: 06/22/18 05:55 Dose: 80 mg Oxycodone/Acetaminophen (Percocet 5/325 Mg Tab) 2 tab PO Q4H PRN PRN Reason: Pain, moderate (4-7) Stop: 06/23/18 21:35 Last Admin: 06/22/18 10:17 Dose: 2 tab - Labs Labs: 06/18/18 07:04 06/18/18 07:04 PT 31.9 SECONDS (9.7-12.2) H* 06/22/18 08:45 INR 2.9 06/22/18 08:45 Assessment and Plan (1) Ambulatory dysfunction Status: Acute (2) Chronic skin ulcer of lower leg Status: Acute (3) Diabetes Status: Acute (4) Impaired mobility and ADLs Status: Acute (5) Nonhealing ulcer of left lower extremity Status: Acute (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
[2018-06-23] MEDS: oxyCODONE 80 mg ER Tab (oxyCONTIN) PO SCH ×4 (00:55→17:34)
[2018-06-23] MEDS: Benzocaine/Menthol (Cepacol) Lozenge MT SCH ×4 (00:59→17:34)
[2018-06-23] MEDS: Cefepime IV 1 gm in Dextrose 1 GM/50 ML BAG IVPB SCH ×2 (04:35→17:00)
[2018-06-23] MEDS: Oxycodone/Acetaminophen 5/325 mg Tab PO PRN ×5 (04:36→21:54)
[2018-06-23] MEDS: Levothyroxine 75 MCG TAB PO SCH (06:08)
[2018-06-23] MEDS: (Novolin R) Insulin Human Regular 100 units/ml vial SC SCH ×4 (07:30→21:48)
[2018-06-23 08:29] LABS: INR 2.7; PROTHROMBIN TIME 29.1 SECONDS (9.7-12.2)
[2018-06-23] MEDS: Bacitracin Ointment 30 GM TUBE TOP SCH (08:59)
--- NOTE | 2018-06-23 10:00 | CP.PCM.PN ---
Subjective - Date & Time of Evaluation Date of Evaluation: 06/23/18 Time of Evaluation: 09:54 - Subjective Subjective: Podiatry Progress Note - Dr. Laguna 58M seen and examined at bedside for bilateral venous stasis lower extremity ulcerations. Patient resting in bed comfortably, hemodynamically stable and NAD. No acute events overnight. Patient reports pain in LLE continues to decrease. States he is able to move his legs more w/o associated discomfort. Dressings to bilateral LE remain clean/dry/intact. Denies N/V/F/D/C/SOB/CP. Objective - Vital Signs/Intake and Output Vital Signs (last 24 hours): Temp Pulse Resp BP Pulse Ox 98.2 F 79 20 120/65 95 06/22/18 23:20 06/22/18 23:20 06/22/18 23:20 06/23/18 08:59 06/22/18 23:20 Intake and Output: 06/23/18 06/23/18 06:59 18:59 Intake Total 720 Output Total 1600 Balance -880 - Medications Medications: Current Medications Bacitracin (Bacitracin) 1 gm TOP DAILY [facility] Last Admin: 06/23/18 08:59 Dose: 1 applic Benzocaine/Menthol (Cepacol Sore Throat) 1 matt MT Q6 [facility] Last Admin: 06/23/18 06:08 Dose: 1 matt Docusate Sodium (Colace) 100 mg PO DAILY [facility] Last Admin: 06/23/18 08:59 Dose: 100 mg Furosemide (Lasix) 80 mg PO BID [facility] Last Admin: 06/23/18 08:59 Dose: 80 mg Gabapentin (Neurontin) 300 mg PO TID [facility] Last Admin: 06/23/18 08:59 Dose: 300 mg Cefepime HCl (Maxipime Iv 1 Gm Premix) 1 gm in 50 mls @ 100 mls/hr IVPB Q12H [facility] PRN Reason: Protocol Last Admin: 06/23/18 04:35 Dose: 100 mls/hr Insulin Human Regular (Novolin R) 0 unit SC ACHS [facility] PRN Reason: Protocol Last Admin: 06/23/18 07:30 Dose: Not Given Levothyroxine Sodium (Synthroid) 75 mcg PO DAILY@0630 [facility] Last Admin: 06/23/18 06:08 Dose: 75 mcg Metformin HCl (Glucophage Xr) 1,000 mg PO BID [facility] Last Admin: 06/23/18 08:59 Dose: 1,000 mg Oxycodone HCl (Oxycontin Extended Release Tab) 80 mg PO Q6 [facility] Last Admin: 06/23/18 06:08 Dose: 80 mg Oxycodone/Acetaminophen (Percocet 5/325 Mg Tab) 2 tab PO Q4H PRN PRN Reason: Pain, moderate (4-7) Stop: 06/23/18 21:35 Last Admin: 06/23/18 08:49 Dose: 2 tab - Labs Labs: 06/18/18 07:04 06/18/18 07:04 PT 29.1 SECONDS (9.7-12.2) H 06/23/18 08:11 INR 2.7 06/23/18 08:11 - Constitutional Appears: Well, Non-toxic, No Acute Distress - Extremities Exam Additional comments: Lower extremity focused exam: Vasc: DP/PT pulses nonpalpable secondary to edema. +1 pitting edema noted to b/ l. CFT <3 seconds to digits. Temperature gradient warm to warm b/l. Neuro: Gross sensation diminished b/l. Derm: Multiple ulcerations of varying stages though improving, L>R LLE = full thickness ulceration noted to calf with moderate sanguinous drainage present, epithelializing; periwound erythema present; no purulence; no fluctuance; no undermining. Scattered full thickness ulcerations noted to anterior leg noted to be epithelializing; minimal periwound erythema present RLE = dressing clean/dry/intact Ortho: Moderate pain on palpation noted to posterior left leg. No pain on palpation noted to right leg. - Neurological Exam Neurological Exam: Alert, Awake, Oriented x3 - Psychiatric Exam Psychiatric exam: Normal Affect, Normal Mood Assessment and Plan - Assessment and Plan (Free Text) Assessment: 58M with multiple chronic recurrent venous stasis ulcers Plan: Patient seen and evaluated alongside attending, Dr. Laguna Continue local wound care -LLE QOD saline cleanse, xeroform, DSD, JOSE -RLE Q4D saline cleanse, xeroform, DSD, JOSE Wounds improving, will continue to monitor Continue abx per ID - Cefepime Pain control per primary team Podiatry will follow Dispo planning: awaiting LTC placement at [facility]
--- NOTE | 2018-06-23 23:26 | CP.PCM.PN ---
Subjective - Date & Time of Evaluation Date of Evaluation: 06/23/18 Time of Evaluation: 19:40 - Subjective Subjective: Pt is waiting for [facility], his INR is 2.8, he is given coumadin 7.5, pt is on pain medications, physical therapy, rehab Objective - Vital Signs/Intake and Output Vital Signs (last 24 hours): Temp Pulse Resp BP Pulse Ox 98.0 F 70 20 140/70 98 06/23/18 15:07 06/23/18 15:07 06/23/18 15:07 06/23/18 17:35 06/23/18 15:07 - Medications Medications: Current Medications Bacitracin (Bacitracin) 1 gm TOP DAILY [facility] Last Admin: 06/23/18 08:59 Dose: 1 applic Benzocaine/Menthol (Cepacol Sore Throat) 1 matt MT Q6 [facility] Last Admin: 06/23/18 17:34 Dose: 1 matt Docusate Sodium (Colace) 100 mg PO DAILY [facility] Last Admin: 06/23/18 08:59 Dose: 100 mg Furosemide (Lasix) 80 mg PO BID [facility] Last Admin: 06/23/18 17:35 Dose: 80 mg Gabapentin (Neurontin) 300 mg PO TID [facility] Last Admin: 06/23/18 17:35 Dose: 300 mg Cefepime HCl (Maxipime Iv 1 Gm Premix) 1 gm in 50 mls @ 100 mls/hr IVPB Q12H [facility] PRN Reason: Protocol Last Admin: 06/23/18 17:00 Dose: 100 mls/hr Insulin Human Regular (Novolin R) 0 unit SC ACHS [facility] PRN Reason: Protocol Last Admin: 06/23/18 21:48 Dose: Not Given Levothyroxine Sodium (Synthroid) 75 mcg PO DAILY@0630 [facility] Last Admin: 06/23/18 06:08 Dose: 75 mcg Metformin HCl (Glucophage Xr) 1,000 mg PO BID [facility] Last Admin: 06/23/18 17:35 Dose: 1,000 mg Oxycodone HCl (Oxycontin Extended Release Tab) 80 mg PO Q6 [facility] Last Admin: 06/23/18 17:34 Dose: 80 mg Oxycodone/Acetaminophen (Percocet 5/325 Mg Tab) 2 tab PO Q4H PRN PRN Reason: Pain, moderate (4-7) Stop: 06/26/18 21:47 Last Admin: 06/23/18 21:54 Dose: 2 tab - Labs Labs: 06/18/18 07:04 06/18/18 07:04 PT 29.1 SECONDS (9.7-12.2) H 06/23/18 08:11 INR 2.7 06/23/18 08:11 - Constitutional Appears: No Acute Distress - Head Exam Head Exam: ATRAUMATIC, NORMAL INSPECTION, NORMOCEPHALIC - Eye Exam Eye Exam: EOMI, Normal appearance, PERRL Pupil Exam: NORMAL ACCOMODATION, PERRL - ENT Exam ENT Exam: Mucous Membranes Moist, Normal Exam - Respiratory Exam Respiratory Exam: Clear to Ausculation Bilateral, NORMAL BREATHING PATTERN - Cardiovascular Exam Cardiovascular Exam: REGULAR RHYTHM, +S1, +S2. absent: Murmur - GI/Abdominal Exam GI & Abdominal Exam: Soft, Normal Bowel Sounds. 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
[2018-06-24] MEDS: oxyCODONE 80 mg ER Tab (oxyCONTIN) PO SCH ×4 (00:19→17:26)
[2018-06-24] MEDS: Benzocaine/Menthol (Cepacol) Lozenge MT SCH ×4 (00:19→17:27)
[2018-06-24] MEDS: Cefepime IV 1 gm in Dextrose 1 GM/50 ML BAG IVPB SCH ×2 (03:30→17:00)
[2018-06-24] MEDS: Oxycodone/Acetaminophen 5/325 mg Tab PO PRN ×5 (04:22→21:30)
[2018-06-24] MEDS: Levothyroxine 75 MCG TAB PO SCH (06:09)
[2018-06-24 06:53] LABS: INR 2.3; PROTHROMBIN TIME 25.2 SECONDS (9.7-12.2)
[2018-06-24] MEDS: (Novolin R) Insulin Human Regular 100 units/ml vial SC SCH ×4 (07:56→21:28)
[2018-06-24] MEDS: Bacitracin Ointment 30 GM TUBE TOP SCH (11:55)
--- NOTE | 2018-06-24 23:39 | CP.PCM.PN ---
Subjective - Date & Time of Evaluation Date of Evaluation: 06/24/18 Time of Evaluation: 18:45 - Subjective Subjective: Pt seen & evaluated at bedside Objective - Vital Signs/Intake and Output Vital Signs (last 24 hours): Temp Pulse Resp BP Pulse Ox 98.2 F 70 20 140/80 97 06/24/18 15:00 06/24/18 15:00 06/24/18 15:00 06/24/18 17:27 06/24/18 15:00 Intake and Output: 06/24/18 06/25/18 18:59 06:59 Intake Total 450 Balance 450 - Medications Medications: Current Medications Bacitracin (Bacitracin) 1 gm TOP DAILY [facility] Last Admin: 06/24/18 11:55 Dose: Not Given Benzocaine/Menthol (Cepacol Sore Throat) 1 matt MT Q6 [facility] Last Admin: 06/24/18 17:27 Dose: 1 matt Docusate Sodium (Colace) 100 mg PO DAILY [facility] Last Admin: 06/24/18 11:50 Dose: 100 mg Furosemide (Lasix) 80 mg PO BID [facility] Last Admin: 06/24/18 17:27 Dose: 80 mg Gabapentin (Neurontin) 300 mg PO TID [facility] Last Admin: 06/24/18 17:27 Dose: 300 mg Cefepime HCl (Maxipime Iv 1 Gm Premix) 1 gm in 50 mls @ 100 mls/hr IVPB Q12H [facility] PRN Reason: Protocol Last Admin: 06/24/18 17:00 Dose: 100 mls/hr Insulin Human Regular (Novolin R) 0 unit SC ACHS [facility] PRN Reason: Protocol Last Admin: 06/24/18 21:28 Dose: Not Given Levothyroxine Sodium (Synthroid) 75 mcg PO DAILY@0630 [facility] Last Admin: 06/24/18 06:09 Dose: 75 mcg Metformin HCl (Glucophage Xr) 1,000 mg PO BID [facility] Last Admin: 06/24/18 17:27 Dose: 1,000 mg Oxycodone HCl (Oxycontin Extended Release Tab) 80 mg PO Q6 [facility] Last Admin: 06/24/18 17:26 Dose: 80 mg Oxycodone/Acetaminophen (Percocet 5/325 Mg Tab) 2 tab PO Q4H PRN PRN Reason: Pain, moderate (4-7) Stop: 06/26/18 21:47 Last Admin: 06/24/18 21:30 Dose: 2 tab - Labs Labs: 06/18/18 07:04 06/18/18 07:04 PT 25.2 SECONDS (9.7-12.2) H 06/24/18 06:38 INR 2.3 06/24/18 06:38 Assessment and Plan (1) Ambulatory dysfunction Status: Acute (2) Chronic skin ulcer of lower leg Status: Acute (3) Diabetes Status: Acute (4) Impaired mobility and ADLs Status: Acute (5) Nonhealing ulcer of left lower extremity Status: Acute (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
[2018-06-25] MEDS: Benzocaine/Menthol (Cepacol) Lozenge MT SCH ×4 (00:24→17:29)
[2018-06-25] MEDS: oxyCODONE 80 mg ER Tab (oxyCONTIN) PO SCH ×4 (00:24→18:06)
[2018-06-25] MEDS: Cefepime IV 1 gm in Dextrose 1 GM/50 ML BAG IVPB SCH ×2 (04:00→17:28)
[2018-06-25] MEDS: Oxycodone/Acetaminophen 5/325 mg Tab PO PRN ×5 (04:18→23:02)
[2018-06-25] MEDS: Levothyroxine 75 MCG TAB PO SCH (05:57)
[2018-06-25] MEDS: (Novolin R) Insulin Human Regular 100 units/ml vial SC SCH ×4 (07:13→22:31)
[2018-06-25 09:12] LABS: INR 2.2; PROTHROMBIN TIME 23.9 SECONDS (9.7-12.2)
[2018-06-25] MEDS: Bacitracin Ointment 30 GM TUBE TOP SCH (09:33)
--- NOTE | 2018-06-25 09:34 | CP.PCM.PN ---
Subjective - Date & Time of Evaluation Date of Evaluation: 06/25/18 Time of Evaluation: 09:34 - Subjective Subjective: Podiatry Progress Note - Dr. Laguna 58M seen and examined at bedside for bilateral venous stasis lower extremity ulcerations. Patient resting in bed comfortably, hemodynamically stable and NAD. No acute events overnight. Patient reports improvement in LLE. No new complaints. Dressings to bilateral LE clean/dry/intact. Awaiting d/c to [facility]. Denies N/V/F/D/C/SOB/CP. Objective - Vital Signs/Intake and Output Vital Signs (last 24 hours): Temp Pulse Resp BP Pulse Ox 98.0 F 64 18 153/75 H 98 06/25/18 07:00 06/25/18 07:00 06/25/18 07:00 06/25/18 09:32 06/25/18 07:00 Intake and Output: 06/25/18 06/25/18 06:59 18:59 Output Total 900 Balance -900 - Medications Medications: Current Medications Bacitracin (Bacitracin) 1 gm TOP DAILY [facility] Last Admin: 06/25/18 09:33 Dose: Not Given Benzocaine/Menthol (Cepacol Sore Throat) 1 matt MT Q6 [facility] Last Admin: 06/25/18 05:58 Dose: 1 matt Docusate Sodium (Colace) 100 mg PO DAILY [facility] Last Admin: 06/25/18 09:31 Dose: 100 mg Furosemide (Lasix) 80 mg PO BID [facility] Last Admin: 06/25/18 09:32 Dose: 80 mg Gabapentin (Neurontin) 300 mg PO TID [facility] Last Admin: 06/25/18 09:31 Dose: 300 mg Cefepime HCl (Maxipime Iv 1 Gm Premix) 1 gm in 50 mls @ 100 mls/hr IVPB Q12H [facility] PRN Reason: Protocol Last Admin: 06/25/18 04:00 Dose: 100 mls/hr Insulin Human Regular (Novolin R) 0 unit SC ACHS [facility] PRN Reason: Protocol Last Admin: 06/25/18 07:13 Dose: Not Given Levothyroxine Sodium (Synthroid) 75 mcg PO DAILY@0630 [facility] Last Admin: 06/25/18 05:57 Dose: 75 mcg Metformin HCl (Glucophage Xr) 1,000 mg PO BID [facility] Last Admin: 06/25/18 09:31 Dose: 1,000 mg Oxycodone HCl (Oxycontin Extended Release Tab) 80 mg PO Q6 [facility] Last Admin: 06/25/18 05:57 Dose: 80 mg Oxycodone/Acetaminophen (Percocet 5/325 Mg Tab) 2 tab PO Q4H PRN PRN Reason: Pain, moderate (4-7) Stop: 06/26/18 21:47 Last Admin: 06/25/18 08:54 Dose: 2 tab - Labs Labs: 06/18/18 07:04 06/18/18 07:04 PT 23.9 SECONDS (9.7-12.2) H 06/25/18 09:00 INR 2.2 06/25/18 09:00 - Constitutional Appears: Well, Non-toxic, No Acute Distress - Extremities Exam Additional comments: Lower extremity focused exam: Vasc: DP/PT pulses nonpalpable secondary to edema. +1 pitting edema noted to b/ l. CFT <3 seconds to digits. Temperature gradient warm to warm b/l. Neuro: Gross sensation diminished b/l. Derm: Multiple ulcerations of varying stages though improving, L>R LLE = full thickness ulceration noted to calf with moderate sanguinous drainage present, epithelializing; periwound erythema present; no purulence; no fluctuance; no undermining. Scattered full thickness ulcerations noted to anterior leg noted to be epithelializing; minimal periwound erythema present RLE = scattered ulcerations noted to anterolateral aspect of right leg appear to be epithelializing; minimal periwound erythema present; no serosanguinous drainage present; no purulence; no fluctuance; no malodor; no probe to bone Ortho: Tenderness to palpation noted to posterior left leg. No pain on palpation noted to right leg. - Neurological Exam Neurological Exam: Alert, Awake, Oriented x3 - Psychiatric Exam Psychiatric exam: Normal Affect, Normal Mood Assessment and Plan - Assessment and Plan (Free Text) Assessment: 58M with multiple chronic recurrent venous stasis ulcers, improving Plan: Patient seen and evaluated Discussed with attending, Dr. Luz Elena BURNS Continue local wound care -LLE QOD saline cleanse, xeroform, DSD, JOSE -RLE Q4D saline cleanse, xeroform, DSD, JOSE Wounds improving, will continue to monitor Continue abx per ID - Cefepime Pain control per primary team Podiatry will follow Dispo planning: awaiting LTC placement at [facility]
[2018-06-26] MEDS: Benzocaine/Menthol (Cepacol) Lozenge MT SCH ×4 (01:20→17:54)
[2018-06-26] MEDS: oxyCODONE 80 mg ER Tab (oxyCONTIN) PO SCH ×4 (01:21→17:55)
[2018-06-26] MEDS: Cefepime IV 1 gm in Dextrose 1 GM/50 ML BAG IVPB SCH ×2 (04:00→17:00)
[2018-06-26] MEDS: Levothyroxine 75 MCG TAB PO SCH (05:54)
[2018-06-26] MEDS: Oxycodone/Acetaminophen 5/325 mg Tab PO PRN ×5 (06:40→23:32)
[2018-06-26 07:06] LABS: INR 2.2; PROTHROMBIN TIME 23.9 SECONDS (9.7-12.2)
[2018-06-26] MEDS: (Novolin R) Insulin Human Regular 100 units/ml vial SC SCH ×4 (07:17→21:36)
[2018-06-26] MEDS: Bacitracin Ointment 30 GM TUBE TOP SCH (09:33)
--- NOTE | 2018-06-26 14:56 | CP.PCM.PN ---
Subjective - Date & Time of Evaluation Date of Evaluation: 06/25/18 Time of Evaluation: 18:00 - Subjective Subjective: Pt seen and examined at bedside.he has bilateral venous stasis lower extremity ulcerations. Patient resting in bed comfortably, hemodynamically stable and NAD. No acute events overnight. Patient reports improvement in LLE. No new complaints. Dressings to bilateral LE clean/dry/intact. Awaiting d/c to group home. Denies N/V/F/D/C/SOB/CP. Objective - Vital Signs/Intake and Output Vital Signs (last 24 hours): Temp Pulse Resp BP Pulse Ox 98.1 F 60 20 122/70 100 06/26/18 07:00 06/26/18 07:00 06/26/18 07:00 06/26/18 09:36 06/26/18 07:00 Intake and Output: 06/26/18 06/26/18 06:59 18:59 Intake Total 450 Output Total 2000 Balance -1550 - Medications Medications: Current Medications Bacitracin (Bacitracin) 1 gm TOP DAILY [facility] Last Admin: 06/26/18 09:33 Dose: Not Given Benzocaine/Menthol (Cepacol Sore Throat) 1 matt MT Q6 [facility] Last Admin: 06/26/18 12:18 Dose: 1 matt Docusate Sodium (Colace) 100 mg PO DAILY [facility] Last Admin: 06/26/18 09:36 Dose: 100 mg Furosemide (Lasix) 80 mg PO BID [facility] Last Admin: 06/26/18 09:36 Dose: 80 mg Gabapentin (Neurontin) 300 mg PO TID [facility] Last Admin: 06/26/18 14:33 Dose: 300 mg Cefepime HCl (Maxipime Iv 1 Gm Premix) 1 gm in 50 mls @ 100 mls/hr IVPB Q12H [facility] PRN Reason: Protocol Last Admin: 06/26/18 04:00 Dose: 100 mls/hr Insulin Human Regular (Novolin R) 0 unit SC ACHS [facility] PRN Reason: Protocol Last Admin: 06/26/18 12:19 Dose: Not Given Levothyroxine Sodium (Synthroid) 75 mcg PO DAILY@0630 [facility] Last Admin: 06/26/18 05:54 Dose: 75 mcg Metformin HCl (Glucophage Xr) 1,000 mg PO BID [facility] Last Admin: 06/26/18 09:35 Dose: 1,000 mg Oxycodone HCl (Oxycontin Extended Release Tab) 80 mg PO Q6 [facility] Last Admin: 06/26/18 12:17 Dose: 80 mg Oxycodone/Acetaminophen (Percocet 5/325 Mg Tab) 2 tab PO Q4H PRN PRN Reason: Pain, moderate (4-7) Stop: 06/26/18 21:47 Last Admin: 06/26/18 11:03 Dose: 2 tab Warfarin Sodium (Coumadin) 7.5 mg PO 1800 [facility] Stop: 06/26/18 18:01 - Labs Labs: 06/18/18 07:04 06/18/18 07:04 PT 23.9 SECONDS (9.7-12.2) H 06/26/18 06:55 INR 2.2 06/26/18 06:55 - Constitutional Appears: No Acute Distress - Eye Exam Eye Exam: EOMI, Normal appearance, PERRL Pupil Exam: NORMAL ACCOMODATION, PERRL - ENT Exam ENT Exam: Mucous Membranes Moist - Respiratory Exam Respiratory Exam: Clear to Ausculation Bilateral, NORMAL BREATHING PATTERN - Cardiovascular Exam Cardiovascular Exam: REGULAR RHYTHM, +S1, +S2. absent: Murmur - GI/Abdominal Exam GI & Abdominal Exam: Soft, Normal Bowel Sounds. 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
--- NOTE | 2018-06-26 14:57 | CP.PCM.PN ---
Subjective - Date & Time of Evaluation Date of Evaluation: 06/26/18 Time of Evaluation: 18:40 - Subjective Subjective: Pt seen and examined at bedside in NAD. No acute events overnight. Patient reports improvement in LLE. No new complaints. Dressings to bilateral LE clean/ dry/intact. Awaiting d/c to detention. Denies N/V/F/D/C/SOB/CP. Objective - Vital Signs/Intake and Output Vital Signs (last 24 hours): Temp Pulse Resp BP Pulse Ox 98.1 F 60 20 122/70 100 06/26/18 07:00 06/26/18 07:00 06/26/18 07:00 06/26/18 09:36 06/26/18 07:00 Intake and Output: 06/26/18 06/26/18 06:59 18:59 Intake Total 450 Output Total 2000 Balance -1550 - Medications Medications: Current Medications Bacitracin (Bacitracin) 1 gm TOP DAILY [facility] Last Admin: 06/26/18 09:33 Dose: Not Given Benzocaine/Menthol (Cepacol Sore Throat) 1 matt MT Q6 [facility] Last Admin: 06/26/18 12:18 Dose: 1 matt Docusate Sodium (Colace) 100 mg PO DAILY [facility] Last Admin: 06/26/18 09:36 Dose: 100 mg Furosemide (Lasix) 80 mg PO BID [facility] Last Admin: 06/26/18 09:36 Dose: 80 mg Gabapentin (Neurontin) 300 mg PO TID [facility] Last Admin: 06/26/18 14:33 Dose: 300 mg Cefepime HCl (Maxipime Iv 1 Gm Premix) 1 gm in 50 mls @ 100 mls/hr IVPB Q12H [facility] PRN Reason: Protocol Last Admin: 06/26/18 04:00 Dose: 100 mls/hr Insulin Human Regular (Novolin R) 0 unit SC ACHS [facility] PRN Reason: Protocol Last Admin: 06/26/18 12:19 Dose: Not Given Levothyroxine Sodium (Synthroid) 75 mcg PO DAILY@0630 [facility] Last Admin: 06/26/18 05:54 Dose: 75 mcg Metformin HCl (Glucophage Xr) 1,000 mg PO BID [facility] Last Admin: 06/26/18 09:35 Dose: 1,000 mg Oxycodone HCl (Oxycontin Extended Release Tab) 80 mg PO Q6 [facility] Last Admin: 06/26/18 12:17 Dose: 80 mg Oxycodone/Acetaminophen (Percocet 5/325 Mg Tab) 2 tab PO Q4H PRN PRN Reason: Pain, moderate (4-7) Stop: 06/26/18 21:47 Last Admin: 06/26/18 11:03 Dose: 2 tab Warfarin Sodium (Coumadin) 7.5 mg PO 1800 [facility] Stop: 06/26/18 18:01 - Labs Labs: 06/18/18 07:04 06/18/18 07:04 PT 23.9 SECONDS (9.7-12.2) H 06/26/18 06:55 INR 2.2 06/26/18 06:55 Assessment and Plan (1) Ambulatory dysfunction Status: Acute (2) Chronic skin ulcer of lower leg Status: Acute (3) Diabetes Status: Acute (4) Impaired mobility and ADLs Status: Acute (5) Nonhealing ulcer of left lower extremity Status: Acute (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
[2018-06-27] MEDS: oxyCODONE 80 mg ER Tab (oxyCONTIN) PO SCH ×5 (00:16→23:59)
[2018-06-27] MEDS: Benzocaine/Menthol (Cepacol) Lozenge MT SCH ×5 (00:16→23:59)
[2018-06-27] MEDS: Cefepime IV 1 gm in Dextrose 1 GM/50 ML BAG IVPB SCH ×2 (03:43→17:03)
[2018-06-27] MEDS: Oxycodone/Acetaminophen 5/325 mg Tab PO PRN ×5 (03:43→21:21)
[2018-06-27] MEDS: Levothyroxine 75 MCG TAB PO SCH (06:21)
[2018-06-27 07:16] LABS: INR 2.4
[2018-06-27] MEDS: (Novolin R) Insulin Human Regular 100 units/ml vial SC SCH ×4 (07:30→21:24)
[2018-06-27] MEDS: Bacitracin Ointment 30 GM TUBE TOP SCH (10:00)
--- NOTE | 2018-06-27 12:27 | CP.PCM.PN ---
Subjective - Date & Time of Evaluation Date of Evaluation: 06/27/18 Time of Evaluation: 12:25 - Subjective Subjective: Podiatry Progress Note - Dr. Laguna 58M seen and examined at bedside for bilateral venous stasis lower extremity ulcerations. Patient resting in bed comfortably, hemodynamically stable and NAD. No acute events overnight. Patient reports improvement in LLE. No new complaints. Dressings to bilateral LE clean/dry/intact. Patient states he will be d/c to custodial on Thursday. Denies N/V/F/D/C/SOB/CP. Objective - Vital Signs/Intake and Output Vital Signs (last 24 hours): Temp Pulse Resp BP Pulse Ox 98.3 F 80 18 124/70 96 06/27/18 07:35 06/27/18 07:35 06/27/18 07:35 06/27/18 09:34 06/27/18 07:35 Intake and Output: 06/27/18 06/27/18 06:59 18:59 Intake Total 400 Balance 400 - Medications Medications: Current Medications Bacitracin (Bacitracin) 1 gm TOP DAILY [facility] Last Admin: 06/26/18 09:33 Dose: Not Given Benzocaine/Menthol (Cepacol Sore Throat) 1 matt MT Q6 [facility] Last Admin: 06/27/18 06:21 Dose: 1 matt Docusate Sodium (Colace) 100 mg PO DAILY [facility] Last Admin: 06/27/18 09:34 Dose: 100 mg Furosemide (Lasix) 80 mg PO BID [facility] Last Admin: 06/27/18 09:34 Dose: 80 mg Gabapentin (Neurontin) 300 mg PO TID [facility] Last Admin: 06/27/18 09:34 Dose: 300 mg Cefepime HCl (Maxipime Iv 1 Gm Premix) 1 gm in 50 mls @ 100 mls/hr IVPB Q12H [facility] PRN Reason: Protocol Last Admin: 06/27/18 03:43 Dose: 100 mls/hr Insulin Human Regular (Novolin R) 0 unit SC ACHS [facility] PRN Reason: Protocol Last Admin: 06/27/18 07:30 Dose: Not Given Levothyroxine Sodium (Synthroid) 75 mcg PO DAILY@0630 [facility] Last Admin: 06/27/18 06:21 Dose: 75 mcg Metformin HCl (Glucophage Xr) 1,000 mg PO BID [facility] Last Admin: 06/27/18 09:34 Dose: 1,000 mg Oxycodone HCl (Oxycontin Extended Release Tab) 80 mg PO Q6 [facility] Last Admin: 06/27/18 12:19 Dose: 80 mg Oxycodone/Acetaminophen (Percocet 5/325 Mg Tab) 2 tab PO Q4H PRN PRN Reason: Pain, moderate (4-7) Stop: 06/29/18 23:15 Last Admin: 06/27/18 08:00 Dose: 2 tab - Labs Labs: 06/18/18 07:04 06/18/18 07:04 PT 26.0 SECONDS (9.7-12.2) H 06/27/18 07:04 INR 2.4 06/27/18 07:04 - Constitutional Appears: Well, Non-toxic, No Acute Distress - Head Exam Head Exam: ATRAUMATIC, NORMOCEPHALIC - Extremities Exam Additional comments: Lower extremity focused exam: Vasc: DP/PT pulses nonpalpable secondary to edema. +1 pitting edema noted to b/ l. CFT <3 seconds to digits. Temperature gradient warm to warm b/l. Neuro: Gross sensation diminished b/l. Derm: Multiple ulcerations of varying stages though improving, L>R LLE = full thickness ulceration noted to calf with moderate sanguinous drainage present, epithelializing; periwound erythema present; no purulence; no fluctuance; no undermining. Scattered full thickness ulcerations noted to anterior leg noted to be epithelializing; minimal periwound erythema present RLE = scattered ulcerations noted to anterolateral aspect of right leg appear to be epithelializing; minimal periwound erythema present; no serosanguinous drainage present; no purulence; no fluctuance; no malodor; no probe to bone Ortho: Tenderness to palpation noted to posterior left leg. No pain on palpation noted to right leg. - Neurological Exam Neurological Exam: Alert, Awake, Oriented x3 - Psychiatric Exam Psychiatric exam: Normal Affect, Normal Mood Assessment and Plan - Assessment and Plan (Free Text) Assessment: 58M with multiple chronic recurrent venous stasis ulcers, improving Plan: Patient seen and evaluated Discussed with attending, Dr. Laguna Chart, labs and vitals reviewed Continue local wound care- B/L dressings changed as patient to be d/c to custodial -LLE QOD saline cleanse, xeroform, DSD, JOSE -RLE Q4D saline cleanse, xeroform, DSD, JOSE Wounds improving, will continue to monitor Continue abx per ID - Cefepime Pain control per primary team Podiatry will follow
--- NOTE | 2018-06-27 23:09 | CP.PCM.PN ---
Subjective - Date & Time of Evaluation Date of Evaluation: 06/27/18 Time of Evaluation: 19:45 - Subjective Subjective: Pt is feeling well, he is for fdc placement Objective - Vital Signs/Intake and Output Vital Signs (last 24 hours): Temp Pulse Resp BP Pulse Ox 97.6 F 66 20 116/82 96 06/27/18 15:00 06/27/18 15:00 06/27/18 15:00 06/27/18 18:07 06/27/18 15:00 Intake and Output: 06/27/18 06/28/18 18:59 06:59 Intake Total 300 Output Total 1350 Balance -1050 - Medications Medications: Current Medications Bacitracin (Bacitracin) 1 gm TOP DAILY [facility] Last Admin: 06/27/18 10:00 Dose: Not Given Benzocaine/Menthol (Cepacol Sore Throat) 1 matt MT Q6 [facility] Last Admin: 06/27/18 18:04 Dose: 1 matt Docusate Sodium (Colace) 100 mg PO DAILY [facility] Last Admin: 06/27/18 09:34 Dose: 100 mg Furosemide (Lasix) 80 mg PO BID [facility] Last Admin: 06/27/18 18:07 Dose: 80 mg Gabapentin (Neurontin) 300 mg PO TID [facility] Last Admin: 06/27/18 18:04 Dose: 300 mg Cefepime HCl (Maxipime Iv 1 Gm Premix) 1 gm in 50 mls @ 100 mls/hr IVPB Q12H [facility] PRN Reason: Protocol Last Admin: 06/27/18 17:03 Dose: 100 mls/hr Insulin Human Regular (Novolin R) 0 unit SC ACHS [facility] PRN Reason: Protocol Last Admin: 06/27/18 21:24 Dose: Not Given Levothyroxine Sodium (Synthroid) 75 mcg PO DAILY@0630 [facility] Last Admin: 06/27/18 06:21 Dose: 75 mcg Metformin HCl (Glucophage Xr) 1,000 mg PO BID [facility] Last Admin: 06/27/18 18:07 Dose: 1,000 mg Oxycodone HCl (Oxycontin Extended Release Tab) 80 mg PO Q6 [facility] Last Admin: 06/27/18 18:05 Dose: 80 mg Oxycodone/Acetaminophen (Percocet 5/325 Mg Tab) 2 tab PO Q4H PRN PRN Reason: Pain, moderate (4-7) Stop: 06/29/18 23:15 Last Admin: 06/27/18 21:21 Dose: 2 tab - Labs Labs: 06/18/18 07:04 06/18/18 07:04 PT 26.0 SECONDS (9.7-12.2) H 06/27/18 07:04 INR 2.4 06/27/18 07:04 - Constitutional Appears: No Acute Distress - Head Exam Head Exam: ATRAUMATIC, NORMAL INSPECTION, NORMOCEPHALIC - Eye Exam Eye Exam: EOMI, Normal appearance, PERRL Pupil Exam: NORMAL ACCOMODATION, PERRL - ENT Exam ENT Exam: Mucous Membranes Moist, Normal Exam - Respiratory Exam Respiratory Exam: Clear to Ausculation Bilateral, NORMAL BREATHING PATTERN - Cardiovascular Exam Cardiovascular Exam: REGULAR RHYTHM, +S1, +S2. absent: Murmur - GI/Abdominal Exam GI & Abdominal Exam: Soft, Normal Bowel Sounds. 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
[2018-06-28] MEDS: Oxycodone/Acetaminophen 5/325 mg Tab PO PRN ×5 (01:25→22:05)
[2018-06-28] MEDS: Cefepime IV 1 gm in Dextrose 1 GM/50 ML BAG IVPB SCH ×2 (04:05→17:29)
[2018-06-28] MEDS: oxyCODONE 80 mg ER Tab (oxyCONTIN) PO SCH ×3 (06:24→18:11)
[2018-06-28] MEDS: Benzocaine/Menthol (Cepacol) Lozenge MT SCH ×3 (06:24→17:32)
[2018-06-28] MEDS: Levothyroxine 75 MCG TAB PO SCH (06:25)
[2018-06-28 07:37] LABS: INR 2.5
[2018-06-28 07:41] LABS: BLOOD UREA NITROGEN 40 mg/dL (9-20); CALCIUM 9.1 mg/dl (8.6-10.4); GFR AFRICAN-AMERICAN > 60; GFR NON-AFRICAN AMERICAN > 60
[2018-06-28 07:43] LABS: BASO # 0.1 K/uL (0.0-0.2); BASO % 1.3 % (0.0-2.0); EOS # 0.4 K/uL (0.0-0.7); EOS % 5.2 % (0.0-4.0); HEMOGLOBIN 11.7 g/dL (12.0-18.0); LYMPH % 25.6 % (20.0-40.0); MEAN CELL VOLUME 84.5 fL (80.0-94.0); MEAN CORPUSCULAR HEMOGLOBIN 28.3 pg (27.0-31.0); MEAN CORPUSCULAR HGB CONC 33.5 g/dL (33.0-37.0); MEAN PLATELET VOLUME 10.2 fL (7.2-11.7); MONO # 0.7 K/uL (0.0-0.8); MONO % 9.2 % (0.0-10.0); NEUT # 4.5 K/uL (1.8-7.0); NEUT % 58.7 % (50.0-75.0); NRBC % 0.1 % (0.0-2.0); RBC 4.13 Mil/uL (4.40-5.90); RED CELL DISTRIBUTION WIDTH 16.1 % (11.5-14.5); WHITE BLOOD COUNT 7.7 K/uL (4.8-10.8)
[2018-06-28] MEDS: (Novolin R) Insulin Human Regular 100 units/ml vial SC SCH ×4 (08:29→21:59)
[2018-06-28] MEDS: Bacitracin Ointment 30 GM TUBE TOP SCH (10:26)
--- NOTE | 2018-06-28 11:26 | CP.PCM.PN ---
Subjective - Date & Time of Evaluation Date of Evaluation: 06/28/18 Time of Evaluation: 11:25 - Subjective Subjective: Podiatry Progress Note- Dr. Laguna 58 y/o male seen at bedside this morning with attending Dr. Laguna for bilateral lower extremity venous stasis leg ulcerations. States he will be discharged on Thursday to [facility] term rehab. States his dressings were changed yesterday and he feels ok today. Denies any pain at present to the lower extremities, stating they mostly hurt during dressing changes. Denies F/C/N/V/CP /SOB Objective - Vital Signs/Intake and Output Vital Signs (last 24 hours): Temp Pulse Resp BP Pulse Ox 98.0 F 60 20 146/91 H 96 06/28/18 08:28 06/28/18 08:28 06/28/18 08:28 06/28/18 10:22 06/28/18 08:28 Intake and Output: 06/28/18 06/28/18 06:59 18:59 Intake Total 300 Output Total 1350 Balance -1050 - Medications Medications: Current Medications Bacitracin (Bacitracin) 1 gm TOP DAILY [facility] Last Admin: 06/28/18 10:26 Dose: 1 applic Benzocaine/Menthol (Cepacol Sore Throat) 1 matt MT Q6 [facility] Last Admin: 06/28/18 06:24 Dose: 1 matt Docusate Sodium (Colace) 100 mg PO DAILY [facility] Last Admin: 06/28/18 10:23 Dose: 100 mg Furosemide (Lasix) 80 mg PO BID [facility] Last Admin: 06/28/18 10:22 Dose: 80 mg Gabapentin (Neurontin) 300 mg PO TID [facility] Last Admin: 06/28/18 10:23 Dose: 300 mg Cefepime HCl (Maxipime Iv 1 Gm Premix) 1 gm in 50 mls @ 100 mls/hr IVPB Q12H [facility] PRN Reason: Protocol Last Admin: 06/28/18 04:05 Dose: 100 mls/hr Insulin Human Regular (Novolin R) 0 unit SC ACHS [facility] PRN Reason: Protocol Last Admin: 06/28/18 08:29 Dose: Not Given Levothyroxine Sodium (Synthroid) 75 mcg PO DAILY@0630 [facility] Last Admin: 06/28/18 06:25 Dose: 75 mcg Metformin HCl (Glucophage Xr) 1,000 mg PO BID [facility] Last Admin: 06/28/18 10:23 Dose: 1,000 mg Oxycodone HCl (Oxycontin Extended Release Tab) 80 mg PO Q6 [facility] Last Admin: 06/28/18 06:24 Dose: 80 mg Oxycodone/Acetaminophen (Percocet 5/325 Mg Tab) 2 tab PO Q4H PRN PRN Reason: Pain, moderate (4-7) Stop: 06/29/18 23:15 Last Admin: 06/28/18 11:14 Dose: 2 tab Warfarin Sodium (Coumadin) 10 mg PO 1800 [facility] Stop: 06/28/18 18:01 - Labs Labs: 06/28/18 07:10 06/28/18 07:10 PT 27.0 SECONDS (9.7-12.2) H 06/28/18 07:10 INR 2.5 06/28/18 07:10 - Constitutional Appears: Well, Non-toxic, No Acute Distress - Extremities Exam Additional comments: Dressings to B/L lower extremities are clean/dry/intact with no strikethrough Pt can wiggle toes without difficulty CFT < 3 sec to all digits - Neurological Exam Neurological Exam: Alert, Awake, Oriented x3 - Psychiatric Exam Psychiatric exam: Normal Affect, Normal Mood Assessment and Plan - Assessment and Plan (Free Text) Assessment: 58 y/o male with multiple bilateral chronic venous stasis leg ulcerations, improving since admission Plan Pt seen and evaluated with attending Dr. Laguna Chart and labs reviewed Wound dressings left intact at this time, to be changed again prior to discharge to LTAC Continue IV abx per ID Continue pain management as per primary team Podiatry will continue to follow
[2018-06-29] MEDS: oxyCODONE 80 mg ER Tab (oxyCONTIN) PO SCH ×4 (00:43→17:34)
[2018-06-29] MEDS: Benzocaine/Menthol (Cepacol) Lozenge MT SCH ×4 (00:43→17:33)
[2018-06-29] MEDS: Oxycodone/Acetaminophen 5/325 mg Tab PO PRN ×5 (03:01→20:48)
[2018-06-29] MEDS: Cefepime IV 1 gm in Dextrose 1 GM/50 ML BAG IVPB SCH ×2 (03:02→16:22)
[2018-06-29] MEDS: Levothyroxine 75 MCG TAB PO SCH (06:29)
[2018-06-29] MEDS: (Novolin R) Insulin Human Regular 100 units/ml vial SC SCH ×4 (07:37→21:32)
[2018-06-29 08:28] LABS: INR 2.5; PROTHROMBIN TIME 27.6 SECONDS (9.7-12.2)
[2018-06-29] MEDS: Bacitracin Ointment 30 GM TUBE TOP SCH (10:37)
[2018-06-29 15:48] VITALS: RESP 20
--- NOTE | 2018-06-29 15:53 | CP.PCM.PN ---
Subjective - Date & Time of Evaluation Date of Evaluation: 06/28/18 Time of Evaluation: 19:35 - Subjective Subjective: pt seen and examined Objective - Vital Signs/Intake and Output Vital Signs (last 24 hours): Temp Pulse Resp BP Pulse Ox 97.9 F 68 20 145/75 96 06/29/18 15:47 06/29/18 15:47 06/29/18 15:47 06/29/18 15:47 06/29/18 15:47 Intake and Output: 06/29/18 06/29/18 06:59 18:59 Intake Total 320 Balance 320 - Medications Medications: Current Medications Bacitracin (Bacitracin) 1 gm TOP DAILY [facility] Last Admin: 06/29/18 10:37 Dose: Not Given Benzocaine/Menthol (Cepacol Sore Throat) 1 matt MT Q6 [facility] Last Admin: 06/29/18 12:16 Dose: 1 matt Docusate Sodium (Colace) 100 mg PO DAILY [facility] Last Admin: 06/29/18 10:34 Dose: 100 mg Furosemide (Lasix) 80 mg PO BID [facility] Last Admin: 06/29/18 10:35 Dose: 80 mg Gabapentin (Neurontin) 300 mg PO TID [facility] Last Admin: 06/29/18 13:28 Dose: 300 mg Cefepime HCl (Maxipime Iv 1 Gm Premix) 1 gm in 50 mls @ 100 mls/hr IVPB Q12H [facility] PRN Reason: Protocol Last Admin: 06/29/18 03:02 Dose: 100 mls/hr Insulin Human Regular (Novolin R) 0 unit SC ACHS [facility] PRN Reason: Protocol Last Admin: 06/29/18 12:18 Dose: 1 unit Levothyroxine Sodium (Synthroid) 75 mcg PO DAILY@0630 [facility] Last Admin: 06/29/18 06:29 Dose: 75 mcg Metformin HCl (Glucophage Xr) 1,000 mg PO BID [facility] Last Admin: 06/29/18 10:35 Dose: 1,000 mg Oxycodone HCl (Oxycontin Extended Release Tab) 80 mg PO Q6 [facility] Last Admin: 06/29/18 12:17 Dose: 80 mg Oxycodone/Acetaminophen (Percocet 5/325 Mg Tab) 2 tab PO Q4H PRN PRN Reason: Pain, moderate (4-7) Stop: 06/29/18 23:15 Last Admin: 06/29/18 11:05 Dose: 2 tab Warfarin Sodium (Coumadin) 10 mg PO 1800 [facility] Stop: 06/29/18 18:01 - Labs Labs: 06/28/18 07:10 06/28/18 07:10 PT 27.6 SECONDS (9.7-12.2) H 06/29/18 08:17 INR 2.5 06/29/18 08:17 Assessment and Plan (1) Ambulatory dysfunction Status: Acute (2) Chronic skin ulcer of lower leg Status: Acute (3) Diabetes Status: Acute (4) Impaired mobility and ADLs Status: Acute (5) Nonhealing ulcer of left lower extremity Status: Acute (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
--- NOTE | 2018-06-29 15:54 | CP.PCM.PN ---
Subjective - Date & Time of Evaluation Date of Evaluation: 06/29/18 Time of Evaluation: 18:30 - Subjective Subjective: Pt seen and examined, HE IS FOR TRANSFER TO [facility] Objective - Vital Signs/Intake and Output Vital Signs (last 24 hours): Temp Pulse Resp BP Pulse Ox 97.9 F 68 20 145/75 96 06/29/18 15:47 06/29/18 15:47 06/29/18 15:47 06/29/18 15:47 06/29/18 15:47 Intake and Output: 06/29/18 06/29/18 06:59 18:59 Intake Total 320 Balance 320 - Medications Medications: Current Medications Bacitracin (Bacitracin) 1 gm TOP DAILY [facility] Last Admin: 06/29/18 10:37 Dose: Not Given Benzocaine/Menthol (Cepacol Sore Throat) 1 matt MT Q6 [facility] Last Admin: 06/29/18 12:16 Dose: 1 matt Docusate Sodium (Colace) 100 mg PO DAILY [facility] Last Admin: 06/29/18 10:34 Dose: 100 mg Furosemide (Lasix) 80 mg PO BID [facility] Last Admin: 06/29/18 10:35 Dose: 80 mg Gabapentin (Neurontin) 300 mg PO TID [facility] Last Admin: 06/29/18 13:28 Dose: 300 mg Cefepime HCl (Maxipime Iv 1 Gm Premix) 1 gm in 50 mls @ 100 mls/hr IVPB Q12H [facility] PRN Reason: Protocol Last Admin: 06/29/18 03:02 Dose: 100 mls/hr Insulin Human Regular (Novolin R) 0 unit SC ACHS [facility] PRN Reason: Protocol Last Admin: 06/29/18 12:18 Dose: 1 unit Levothyroxine Sodium (Synthroid) 75 mcg PO DAILY@0630 [facility] Last Admin: 06/29/18 06:29 Dose: 75 mcg Metformin HCl (Glucophage Xr) 1,000 mg PO BID [facility] Last Admin: 06/29/18 10:35 Dose: 1,000 mg Oxycodone HCl (Oxycontin Extended Release Tab) 80 mg PO Q6 [facility] Last Admin: 06/29/18 12:17 Dose: 80 mg Oxycodone/Acetaminophen (Percocet 5/325 Mg Tab) 2 tab PO Q4H PRN PRN Reason: Pain, moderate (4-7) Stop: 06/29/18 23:15 Last Admin: 06/29/18 11:05 Dose: 2 tab Warfarin Sodium (Coumadin) 10 mg PO 1800 [facility] Stop: 06/29/18 18:01 - Labs Labs: 06/28/18 07:10 06/28/18 07:10 PT 27.6 SECONDS (9.7-12.2) H 06/29/18 08:17 INR 2.5 06/29/18 08:17 - Constitutional Appears: No Acute Distress - Head Exam Head Exam: ATRAUMATIC, NORMAL INSPECTION, NORMOCEPHALIC - Eye Exam Eye Exam: EOMI, Normal appearance, PERRL Pupil Exam: NORMAL ACCOMODATION, PERRL - Respiratory Exam Respiratory Exam: Clear to Ausculation Bilateral, NORMAL BREATHING PATTERN - Cardiovascular Exam Cardiovascular Exam: REGULAR RHYTHM, +S1, +S2. absent: Murmur - GI/Abdominal Exam GI & Abdominal Exam: Soft, Normal Bowel Sounds. 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
[2018-06-30] MEDS: oxyCODONE 80 mg ER Tab (oxyCONTIN) PO SCH ×3 (00:09→12:12)
[2018-06-30] MEDS: Benzocaine/Menthol (Cepacol) Lozenge MT SCH ×3 (00:10→12:14)
[2018-06-30] MEDS: Oxycodone/Acetaminophen 5/325 mg Tab PO PRN ×4 (01:01→13:55)
[2018-06-30] MEDS: Cefepime IV 1 gm in Dextrose 1 GM/50 ML BAG IVPB SCH (04:14)
[2018-06-30] MEDS: Levothyroxine 75 MCG TAB PO SCH (05:57)
[2018-06-30 07:30] LABS: INR 2.9; PROTHROMBIN TIME 31.8 SECONDS (9.7-12.2)
[2018-06-30] MEDS: (Novolin R) Insulin Human Regular 100 units/ml vial SC SCH ×2 (07:30→12:13)
[2018-06-30 08:48] VITALS: PULSE 80; TEMP 98; O2SAT 96
[2018-06-30 09:33] VITALS: BP 120/70
[2018-06-30] MEDS: Bacitracin Ointment 30 GM TUBE TOP SCH (09:33)
--- NOTE | 2018-06-30 10:52 | CP.PCM.PN ---
Subjective - Date & Time of Evaluation Date of Evaluation: 06/30/18 Time of Evaluation: 10:52 - Subjective Subjective: 58 y/o male seen at bedside this morning with attending Dr. Laguna. Pt states he will be discharged today to [facility]. States his leg pain has overall improved since hospital admission and he is noticing positive healing changes to his wounds. Denies F/C/N/V/CP/SOB. Dressings remain clean, dry and intact Objective - Vital Signs/Intake and Output Vital Signs (last 24 hours): Temp Pulse Resp BP Pulse Ox 98 F 80 20 120/70 96 06/30/18 08:47 06/30/18 08:47 06/30/18 08:47 06/30/18 09:30 06/30/18 08:47 Intake and Output: 06/30/18 06/30/18 06:59 18:59 Intake Total 460 Output Total 2400 Balance -1940 - Medications Medications: Current Medications Bacitracin (Bacitracin) 1 gm TOP DAILY [facility] Last Admin: 06/30/18 09:33 Dose: Not Given Benzocaine/Menthol (Cepacol Sore Throat) 1 matt MT Q6 [facility] Last Admin: 06/30/18 05:05 Dose: 1 matt Docusate Sodium (Colace) 100 mg PO DAILY [facility] Last Admin: 06/30/18 09:30 Dose: 100 mg Furosemide (Lasix) 80 mg PO BID [facility] Last Admin: 06/30/18 09:30 Dose: 80 mg Gabapentin (Neurontin) 300 mg PO TID [facility] Last Admin: 06/30/18 09:30 Dose: 300 mg Cefepime HCl (Maxipime Iv 1 Gm Premix) 1 gm in 50 mls @ 100 mls/hr IVPB Q12H [facility] PRN Reason: Protocol Last Admin: 06/30/18 04:14 Dose: 100 mls/hr Insulin Human Regular (Novolin R) 0 unit SC ACHS [facility] PRN Reason: Protocol Last Admin: 06/30/18 07:30 Dose: Not Given Levothyroxine Sodium (Synthroid) 75 mcg PO DAILY@0630 [facility] Last Admin: 06/30/18 05:57 Dose: 75 mcg Metformin HCl (Glucophage Xr) 1,000 mg PO BID [facility] Last Admin: 06/30/18 09:30 Dose: 1,000 mg Oxycodone HCl (Oxycontin Extended Release Tab) 80 mg PO Q6 [facility] Last Admin: 06/30/18 05:57 Dose: 80 mg Oxycodone/Acetaminophen (Percocet 5/325 Mg Tab) 2 tab PO Q4H PRN PRN Reason: Pain, moderate (4-7) Stop: 07/02/18 23:46 Last Admin: 06/30/18 09:28 Dose: 2 tab - Labs Labs: 06/28/18 07:10 06/28/18 07:10 PT 31.8 SECONDS (9.7-12.2) H* 06/30/18 07:20 INR 2.9 06/30/18 07:20 - Constitutional Appears: Well, Non-toxic, No Acute Distress - Extremities Exam Additional comments: Lower extremity focused exam: Vasc: DP/PT pulses nonpalpable secondary to edema. +1 pitting edema noted to bilateral LE. CFT <3 seconds to digits. Temperature gradient warm to warm B/L. Neuro: Gross sensation diminished B/L Derm: Multiple ulcerations of varying stages though improving, L>R LLE = full thickness ulceration noted to calf with moderate sanguinous drainage present, epithelializing; periwound erythema present; no purulence; no fluctuance; no undermining. Scattered full thickness ulcerations noted to anterior leg noted to be epithelializing; minimal periwound erythema present RLE = scattered ulcerations noted to anterolateral aspect of right leg appear to be epithelializing; minimal periwound erythema present; no serosanguinous drainage present; no purulence; no fluctuance; no malodor; no probe to bone Ortho: Mild tenderness to palpation noted to posterior left leg. No pain on palpation noted to right leg. - Neurological Exam Neurological Exam: Alert, Awake, Oriented x3 - Psychiatric Exam Psychiatric exam: Normal Affect, Normal Mood Assessment and Plan - Assessment and Plan (Free Text) Assessment: 58 y/o male with multiple chronic recurrent venous stasis ulcers, improving Plan: Patient seen and evaluated with attending, Dr. Laguna Chart, labs and vitals reviewed Continue local wound care- B/L dressings changed as patient to be d/c to alf -LLE: saline cleanse, xeroform, DSD, JOSE -RLE: saline cleanse, xeroform, DSD, JOSE Wounds improving, will continue to monitor Continue abx per ID - Cefepime Pain control per primary team Pt is stable for discharge to LT[facility] from podiatry standpoint Podiatry will follow while he remains in house
--- NOTE | 2018-06-30 12:05 | CP.PCM.PN ---
Subjective - Date & Time of Evaluation Date of Evaluation: 06/30/18 Time of Evaluation: 12:00 Objective - Vital Signs/Intake and Output Vital Signs (last 24 hours): Temp Pulse Resp BP Pulse Ox 98 F 80 20 120/70 96 06/30/18 08:47 06/30/18 08:47 06/30/18 08:47 06/30/18 09:30 06/30/18 08:47 Intake and Output: 06/30/18 06/30/18 06:59 18:59 Intake Total 460 Output Total 2400 Balance -1940 - Medications Medications: Current Medications Bacitracin (Bacitracin) 1 gm TOP DAILY [facility] Last Admin: 06/30/18 09:33 Dose: Not Given Benzocaine/Menthol (Cepacol Sore Throat) 1 matt MT Q6 [facility] Last Admin: 06/30/18 05:05 Dose: 1 matt Docusate Sodium (Colace) 100 mg PO DAILY [facility] Last Admin: 06/30/18 09:30 Dose: 100 mg Furosemide (Lasix) 80 mg PO BID [facility] Last Admin: 06/30/18 09:30 Dose: 80 mg Gabapentin (Neurontin) 300 mg PO TID [facility] Last Admin: 06/30/18 09:30 Dose: 300 mg Cefepime HCl (Maxipime Iv 1 Gm Premix) 1 gm in 50 mls @ 100 mls/hr IVPB Q12H [facility] PRN Reason: Protocol Last Admin: 06/30/18 04:14 Dose: 100 mls/hr Insulin Human Regular (Novolin R) 0 unit SC ACHS [facility] PRN Reason: Protocol Last Admin: 06/30/18 07:30 Dose: Not Given Levothyroxine Sodium (Synthroid) 75 mcg PO DAILY@0630 [facility] Last Admin: 06/30/18 05:57 Dose: 75 mcg Metformin HCl (Glucophage Xr) 1,000 mg PO BID [facility] Last Admin: 06/30/18 09:30 Dose: 1,000 mg Oxycodone HCl (Oxycontin Extended Release Tab) 80 mg PO Q6 [facility] Last Admin: 06/30/18 05:57 Dose: 80 mg Oxycodone/Acetaminophen (Percocet 5/325 Mg Tab) 2 tab PO Q4H PRN PRN Reason: Pain, moderate (4-7) Stop: 07/02/18 23:46 Last Admin: 06/30/18 09:28 Dose: 2 tab - Labs Labs: 06/28/18 07:10 06/28/18 07:10 PT 31.8 SECONDS (9.7-12.2) H* 06/30/18 07:20 INR 2.9 06/30/18 07:20
--- NOTE | 2018-07-01 08:56 | CP.PCM.DIS ---
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 Hospital Course - Lab Results Lab Results: Most Recent Lab Values WBC 7.7 K/uL (4.8-10.8) 06/28/18 07:10 RBC 4.13 Mil/uL (4.40-5.90) L 06/28/18 07:10 Hgb 11.7 g/dL (12.0-18.0) L 06/28/18 07:10 Hct 34.9 % (35.0-51.0) L 06/28/18 07:10 MCV 84.5 fL (80.0-94.0) 06/28/18 07:10 MCH 28.3 pg (27.0-31.0) 06/28/18 07:10 MCHC 33.5 g/dL (33.0-37.0) 06/28/18 07:10 RDW 16.1 % (11.5-14.5) H 06/28/18 07:10 Plt Count 142 K/uL (130-400) 06/28/18 07:10 MPV 10.2 fL (7.2-11.7) 06/28/18 07:10 Neut % (Auto) 58.7 % (50.0-75.0) 06/28/18 07:10 Lymph % (Auto) 25.6 % (20.0-40.0) 06/28/18 07:10 Powell % (Auto) 9.2 % (0.0-10.0) 06/28/18 07:10 Eos % (Auto) 5.2 % (0.0-4.0) H 06/28/18 07:10 Baso % (Auto) 1.3 % (0.0-2.0) 06/28/18 07:10 Neut # (Auto) 4.5 K/uL (1.8-7.0) 06/28/18 07:10 Lymph # (Auto) 2.0 K/uL (1.0-4.3) 06/28/18 07:10 Powell # (Auto) 0.7 K/uL (0.0-0.8) 06/28/18 07:10 Eos # (Auto) 0.4 K/uL (0.0-0.7) 06/28/18 07:10 Baso # (Auto) 0.1 K/uL (0.0-0.2) 06/28/18 07:10 Differential Comment 06/02/18 08:24 PT 31.8 SECONDS (9.7-12.2) H* 06/30/18 07:20 INR 2.9 06/30/18 07:20 Sodium 140 mmol/L (132-148) 06/28/18 07:10 Potassium 4.4 mmol/L (3.6-5.2) 06/28/18 07:10 Chloride 95 mmol/L (98-107) L 06/28/18 07:10 Carbon Dioxide 32 mmol/L (22-30) H 06/28/18 07:10 Anion Gap 18 (10-20) 06/28/18 07:10 BUN 40 mg/dL (9-20) H 06/28/18 07:10 Creatinine 1.2 mg/dL (0.8-1.5) 06/28/18 07:10 Est GFR ( Amer) > 60 06/28/18 07:10 Est GFR (Non-Af Amer) > 60 06/28/18 07:10 POC Glucose (mg/dL) 182 mg/dL (65-110) H 06/30/18 11:00 Random Glucose 113 mg/dL (75-110) H 06/28/18 07:10 Calcium 9.1 mg/dl (8.6-10.4) 06/28/18 07:10 Total Bilirubin 0.4 mg/dL (0.2-1.3) 06/18/18 07:04 AST 19 U/L (17-59) 06/18/18 07:04 ALT 19 U/L (21-72) L 06/18/18 07:04 Alkaline Phosphatase 127 U/L (38-126) H 06/18/18 07:04 Total Protein 7.8 g/dL (6.3-8.3) 06/18/18 07:04 Albumin 4.2 g/dL (3.5-5.0) 06/18/18 07:04 Globulin 3.6 gm/dL (2.2-3.9) 06/18/18 07:04 Albumin/Globulin Ratio 1.2 (1.0-2.1) 06/18/18 07:04 - Hospital Course Hospital Course: Pt is for discharge today Discharge Exam - Head Exam Head Exam: ATRAUMATIC, NORMAL INSPECTION, NORMOCEPHALIC Discharge Plan - Discharge Medications Prescriptions: Cefepime 1gm in NS 100ml [Maxipime 1gm] 1 gm IVPB Q12 #14 bag oxyCODONE [oxyCONTIN Extended Release Tab] 80 mg PO Q6 #16 tab - Follow Up Plan Condition: STABLE Disposition: [facility] FAC W/PLAN READMIS Instructions: Heart Failure, Adult, Heart Healthy Diet, Diabetic Nephropathy , Diabetes Diet , Warfarin, Wound Infection Additional Instructions: Please admit patient under Dr. Albright service- call Dr. Albright upon patient arrival to the facility continue medication as per med. rec. Please do INR q weekly starting Thursday Please do cbc, bmp q week Please call Dr. Awad for podiatry consult continue antibiotics for 1 more week then change to po as per Dr. albright Referrals: Estrada Albright MD [Staff Provider] - Casey Laguna DPM [Staff Provider] -
== END 2018-06-30 14:38 | DRG 638 ==
LOC: C.ER 11:02 → C.9E 13:54 → OBSVTOIN 13:54 → C.5S 16:34 → C.9E 17:16 → C.6T 18:32
PROVIDERS: ADMIT Internal Medicine; ATTEND Internal Medicine
PROC: 02HV33Z Insertion of Infusion Device into Superior Vena Cava, Percutaneous Approach (ICD-10-PCS; principal; 2018-06-18)
DX: E11.622 Type 2 diabetes mellitus with other skin ulcer (principal); L97.228 Non-pressure chronic ulcer of left calf with other specified severity; L97.811 Non-pressure chronic ulcer of other part of right lower leg limited to breakdown of skin; L03.116 Cellulitis of left lower limb; L03.115 Cellulitis of right lower limb; I13.0 Hypertensive heart and chronic kidney disease with heart failure and stage 1 through stage 4 chronic kidney disease, or unspecified chronic kidney disease; Z68.43 Body mass index [BMI] 50.0-59.9, adult; I87.2 Venous insufficiency (chronic) (peripheral); E11.65 Type 2 diabetes mellitus with hyperglycemia; N18.9 Chronic kidney disease, unspecified; M79.7 Fibromyalgia; I50.9 Heart failure, unspecified; R26.89 Other abnormalities of gait and mobility; J44.9 Chronic obstructive pulmonary disease, unspecified; K21.9 Gastro-esophageal reflux disease without esophagitis; L89.90 Pressure ulcer of unspecified site, unspecified stage; I35.1 Nonrheumatic aortic (valve) insufficiency; G89.29 Other chronic pain; D64.9 Anemia, unspecified; E03.9 Hypothyroidism, unspecified; I25.10 Atherosclerotic heart disease of native coronary artery without angina pectoris; D69.6 Thrombocytopenia, unspecified; E11.22 Type 2 diabetes mellitus with diabetic chronic kidney disease; F06.4 Anxiety disorder due to known physiological condition; Z75.1 Person awaiting admission to adequate facility elsewhere; G47.30 Sleep apnea, unspecified; E78.00 Pure hypercholesterolemia, unspecified; E66.01 Morbid (severe) obesity due to excess calories; Z96.653 Presence of artificial knee joint, bilateral; F32.9 Major depressive disorder, single episode, unspecified; Z79.01 Long term (current) use of anticoagulants; Z86.711 Personal history of pulmonary embolism; Z86.718 Personal history of other venous thrombosis and embolism; Z87.01 Personal history of pneumonia (recurrent); Z91.81 History of falling